=== PATIENT | female | born 1975 | race Caucasian/White ===

== ENCOUNTER 2017-09-23 18:43 | Emergency (ER) | payer MEDICARE, MEDICAID, SELFPAY ==
[2017-09-23 18:45] VITALS: BP 163/123; PULSE 79; RESP 16; TEMP 36.8; O2SAT 96; BMI 36.6
--- NOTE | 2017-09-23 19:08 | NURSING ---
clean catch urine sample obtained by triage nurse and sent down sample
[2017-09-23 19:16] VITALS: O2SAT 97
[2017-09-23 20:30] LABS: Mucous, Urine 0 SEEN /hpf (<or=2+); Red Blood Cells-Urine 0 SEEN /hpf (0-5)
[2017-09-23 20:34] LABS: Color, Urine Straw (Yellow); Glucose, Dipstick Normal (Normal); Ketone-Dipstick Negative (Negative); Leukocyte Esterase-Dipstick 25 /ul (Negative); Nitrite-Dipstick Negative (Negative); Occult Blood-Urine 10 /ul (Negative); Protein-Dipstick Negative (Negative); Urine Bilirubin Dipstick Negative (Negative); Urine Clarity Clear (Clear); Urine Urobilinogen Normal (Normal); Urine pH 6.5 (5.0 - 8.0)
[2017-09-23 20:44] LABS: Squamous Epithelial Cells - UA 0-5 SEEN /hpf (5-10)
[2017-09-23 20:45] LABS: White Blood Cells 0-5 SEEN /hpf (0-5)
[2017-09-23 20:46] LABS: Bacteria RARE /hpf (None Seen)
--- NOTE | 2017-09-23 21:43 | ED.VISSUMM ---
- ER Visit Summary Date of Service: 09/23/17 Chief Complaint: Back pain History of Present Illness: The patient is a 42 F who presents with right lower back pain that became worse today. Patient states this feels similar to prior episodes of urinary tract infections. Patient states the pain is worse over the right lower back. Patient describes the pain as aching. Patient denies any fevers. Patient denies any dysuria or hematuria. Patient denies any radiation of the pain. Patient denies any other bowel or bladder changes. Physical Examination: Vital signs are stable. Patient is afebrile. Patient is in no acute distress. Oral mucosa is pink and moist. Neck is supple. Trachea is midline. There is no JVD or lymphadenopathy. Heart was regular rate and rhythm. Lungs are clear and equal bilaterally. There is good respiratory effort noted. Abdomen is soft. Bowel sounds are normal. There is no tenderness. Muscular skeletal exam reveals some mild tenderness over the right lumbar paraspinal muscles. There is no midline tenderness. There is no bony crepitance or step-off. There is no edema or ecchymosis noted. There is good range of motion of the lumbar spine. Test Results: Urinalysis was obtained was within normal limits. There is no evidence of urinary tract infection Treatment Plan: Patient was given a prescription for Naprosyn. Patient was instructed to follow-up with her primary care physician in 7-10 days. Patient understood and was agreeable with the plan. All questions were answered. Disposition: Discharged home Impression: Acute low back strain This note was generated with [employer] dictation software. It may contain incorrect words, spelling, and punctuation that were not noted in review of the chart prior to signing ED Disposition - Plan for ED Patient: Disposition: Home or Assisted Living Chief Complaint: Shortness of Breath Diagnosis: Acute lumbar myofascial strain Instructions: ED Sprain Strain Lumbar Prescriptions: Naproxen [Naprosyn] 500 mg PO BID PRN PRN #20 tab PRN Reason: Pain Referrals: Jesusita Naylor MD [Primary Care Provider] -
[2017-09-23 22:01] VITALS: BP 169/95; PULSE 81; RESP 16; O2SAT 97
== END 2017-09-23 22:01 | disposition home or self-care (01) ==
PROVIDERS: Emergency Provider Emergency Medicine; Family Provider Internal Medicine; PCP Internal Medicine
DX: S39.012A Strain of muscle, fascia and tendon of lower back, initial encounter (principal); E03.9 Hypothyroidism, unspecified; Z87.440 Personal history of urinary (tract) infections; Z79.899 Other long term (current) drug therapy; X58.XXXA Exposure to other specified factors, initial encounter; Y93.9 Activity, unspecified; Y92.9 Unspecified place or not applicable; Y99.9 Unspecified external cause status
CPT/HCPCS: 81001; 99283

== ENCOUNTER → 2017-11-22 07:26 | Outpatient (CLI) | payer MEDICARE, MEDICAID, SELFPAY ==
--- NOTE | 2017-11-22 07:32 | US_ITS ---
STUDY: ABDOMINAL ULTRASOUND - RIGHT UPPER QUADRANT REASON FOR VISIT: Female, 42 years old. Right upper quadrant pain. Nausea. TECHNIQUE: Ultrasound evaluation of the right upper quadrant was performed with real-time and static rojas-scale imaging. TECHNICAL QUALITY: Limited. Examination limited by bowel gas. COMPARISON: Comparison is made with prior study dated March 20, 2012. FINDINGS: Liver: The liver measures 14.2 cm. There is increased echogenicity consistent with fatty infiltration. The bile ducts are within normal limits. There is hepatic color flow. The direction of portal flow is hepatopetal. There is no demonstrated mass lesion. Gallbladder: Normal distended gallbladder. The gallbladder wall measures 1.6 mm. There is a negative sonographic De La Vega's sign. There is no pericholecystic fluid. There are no gallstones. Common Bile Duct (C.B.D.): The common bile duct measures 4.6 mm. Pancreas: Normal size of the head, body and tail of the pancreas. There is normal echogenicity of the pancreas. There is no demonstrated pancreatic mass or cyst. Right Kidney: Normal size of the right kidney. The right kidney measures 10.7 cm x 4.7 cm x 5.2 cm. Normal renal cortex. The right cortex measures 1.9 cm. There is no demonstrated renal mass or cyst. There is no right hydronephrosis. US/Abdomen Limited IMPRESSION: Fatty infiltration of the liver. Electronically Signed: iMn Oconnor MD at 9:55 EDT Tel [phone], Service support ,
== END ==
PROVIDERS: Family Provider Internal Medicine; PCP Internal Medicine; Visit Provider Internal Medicine Gastroenterology
DX: R11.0 Nausea (principal); R10.9 Unspecified abdominal pain
CPT/HCPCS: 76705

== ENCOUNTER 2019-01-28 16:09 | Emergency (ER) | payer MEDICARE, MEDICAID, SELFPAY ==
[2019-01-28 16:09] VITALS: BP 102/72; PULSE 93; RESP 16; TEMP 36.6; O2SAT 96; BMI 33.9
--- NOTE | 2019-01-28 16:32 | CT_ITS ---
STUDY: CT ABDOMEN AND PELVIS WITH CONTRAST REASON FOR EXAM: Female, 43 years old. Abdominal pain. History of UTI RADIATION DOSAGE (If Supplied By Facility): CTDIvol = ( 16.78 ) mGy, DLP = ( 1292.55 ) mGycm TECHNIQUE: Transaxial images were obtained from the dome of the diaphragm to the symphysis pubis without oral contrast. 100ML IV Isovue 300 was administered. Sagittal and coronal images were reconstructed. Individualized dose optimization techniques were used for this CT. COMPARISON: 12/21/2016 FINDINGS: The visualized lung bases are unremarkable. The visualized portions of the heart are within normal limits. Normal liver. Normal gallbladder and extrahepatic biliary system. Normal spleen. Normal pancreas. Normal bilateral adrenal glands. Normal right kidney. Normal left kidney. Normal visualized stomach. Normal small intestine. Normal colon. The appendix is visualized and appears normal. Normal abdominal aorta. Normal inferior vena cava. Normal retroperitoneum. Normal urinary bladder. Unremarkable uterus Normal abdominal wall. Normal osseous structures. CT/Abdomen/Pelvis W IV Cont ONLY IMPRESSION: Normal enhanced CT of the abdomen and pelvis. Electronically Signed: Carlos Andrew DO at 19:19 EDT Tel , Service support ,
[2019-01-28] MEDS: 0.9% Normal Saline 1,000 ML 1000 ML IV (16:55)
[2019-01-28] MEDS: Ondansetron 4 MG/2 ML Vial IV (16:55)
[2019-01-28] MEDS: Morphine 4 MG/ML Syringe IV (16:55)
[2019-01-28 17:05] LABS: Absolute Lymphocyte Count 2.36 X10^3/uL (0.83-4.51); Absolute Neutrophil Count 6.6 X10^3/uL (2.0-7.7); Basophil# 0.11 X10^3/uL; Basophil% 1.1 % (0-1); Eosinophil# 0.33 X10^3/uL; Eosinophils% 3.3 % (0-5); Hematocrit 39.4 % (37-47); Hemoglobin 13.3 g/dL (12.0-15.0); Lymphocyte # 2.36 X10^3/ul (4.0); Lymphocyte % 23.5 % (19-41); Mean Corp Hgb Conc 33.8 g/dL (32-36); Mean Corpuscular Hgb 29.4 pg (27.0-32.0); Mean Platelet Vol. 9.4 fl (6.2-12.0); Monocyte# 0.66 X10^3/uL; Monocyte% 6.6 % (0-10); NRBC Flagged by Analyzer 0 % (0-5); Neutrophil # 6.55 X10^3/uL (2.7-7.7); Neutrophil % 65.2 % (47-70); Platelet Count 423 K/mm3 (150-450); RBC Distribution Width CV 12.3 % (11.6-14.6); RBC Distribution Width SD 39.1 fl (35.1-43.9); Red Blood Count 4.53 M/mm3 (4.2-5.4)
[2019-01-28 18:07] LABS: AST(SGOT) 11 U/L (15-37); Alanine Aminotransfer ALT/SGPT 16 U/L (13-56); Albumin, Serum 3.5 g/dL (3.2-5.0); Alkaline Phosphatase 81 U/L (45-117); Anion Gap 4 (5-15); BUN 10 mg/dL (7-18); BUN/Creat Ratio 11.3 RATIO (10-20); Calcium,Total 8.6 mg/dL (8.5-10.1); Chloride 106 mmol/L (98-107); Creatinine, Serum 0.88 mg/dL (0.55-1.02); EST Glomerular Filtration Rate 74 mL/min (>60); Est Glom Filt Rate - Afr Amer 90 mL/min (>60); Estimated Creatinine Clearance 74.94 ml/min; Globulin 3.6 g/dL (2.2-4.2); Glucose 90 mg/dL (74-106); Lipase 116 U/L (73-393); Potassium 3.9 mmol/L (3.5-5.1); Protein, Total 7.1 g/dL (6.4-8.2); Sodium Level 137 mmol/L (136-145)
[2019-01-28 18:18] VITALS: BP 105/68; PULSE 69; RESP 16; O2SAT 100
[2019-01-28 18:23] VITALS: BP 105/68; PULSE 69; RESP 16; TEMP 37.1; O2SAT 100
[2019-01-28 18:23] LABS: Bacteria 0 SEEN /hpf (None Seen); Mucous, Urine 0 SEEN /hpf (<or=2+)
[2019-01-28 18:33] LABS: Color, Urine Yellow (Yellow); Glucose, Dipstick Normal (Normal); Ketone-Dipstick Negative (Negative); Leukocyte Esterase-Dipstick 100 /ul (Negative); Nitrite-Dipstick Negative (Negative); Occult Blood-Urine 10 /ul (Negative); Protein-Dipstick Negative (Negative); Urine Bilirubin Dipstick Negative (Negative); Urine Clarity Sl. Cloudy (Clear); Urine Urobilinogen Normal (Normal)
[2019-01-28 18:34] LABS: Internal QC Validated? YES +Cl - CLEAR BKGD; Pregnancy, Urine Negative Negative
[2019-01-28 18:39] LABS: Red Blood Cells-Urine 0 SEEN /hpf (0-5); Squamous Epithelial Cells - UA 0-5 SEEN /hpf (5-10); White Blood Cells 5-10 SEEN /hpf (0-5)
--- NOTE | 2019-01-28 19:40 | ED.VISSUMM ---
- ER Visit Summary Date of Service: 01/28/19 Chief Complaint: Abdominal pain History of Present Illness: The patient is a 43 F with abdominal pain for several days. The pain came on gradually. The pain is diffuse. Associate with nausea and diarrhea. Patient was at an urgent care last week and had blood in her urine. She was treated for UTI, but her symptoms are not better. She denies fevers. Denies any other symptoms. Denies any history of abdominal surgery. Physical Examination: Afebrile and vital signs unremarkable. Patient alert and oriented. No acute distress. Heart regular rate and rhythm. Lungs clear. Abdomen is tender over the lower hemiabdomen. No guarding or rebound. No distention. No masses. Skin appears normal in color. Test Results: CBC, CMP, lipase, hCG, urinalysis all unremarkable. There are 5-10 white blood cells and 100 leukocyte esterase. Nitrites negative. No other pertinent findings. CT abdomen was normal Emergency Department Course and Treatment: Patient was treated with morphine and Zofran while awaiting results. Her symptoms improved and she tolerated PO. Work-up was unremarkable. She is not having blood in her urine. She has 5-10 white cells and positive leukocyte esterase, but otherwise her urine is unremarkable. She is not having any urinary symptoms whatsoever. She had a culture last week which was negative. She has nonspecific abdominal pain. Etiology is unclear, but her exam, vitals, and work-up is reassuring. Patient will be treated as an outpatient with Zofran and Motrin. Follow-up with primary care. Return for any new or worsening issues right away. Treatment Plan: As above Disposition: Discharged Impression: 1. Generalized abdominal pain This note was generated with [employer] dictation software. It may contain incorrect words, spelling, and punctuation that were not noted in review of the chart prior to signing ED Disposition - Plan for ED Patient: Referrals: Jesusita Naylor MD [Primary Care Provider] -
--- NOTE | 2019-01-28 19:43 | ED.DEP ---
ED Disposition - Plan for ED Patient: Instructions: ABDOMINAL PAIN, Unknown Cause, (Female) Prescriptions: Ibuprofen [Motrin] 800 mg PO TID PRN PRN #20 tab PRN Reason: Pain Prescription Printed Ondansetron [Zofran Odt] 4 mg PO Q8H PRN PRN #10 tab PRN Reason: Nausea Prescription Printed Referrals: Jesusita Naylor MD [Primary Care Provider] -
[2019-01-28 19:59] VITALS: BP 113/79; PULSE 70; RESP 16; O2SAT 100
== END 2019-01-28 19:59 | disposition home or self-care (01) ==
LOC: ED 16:44
PROVIDERS: Emergency Provider Emergency Medicine; Family Provider Internal Medicine; PCP Internal Medicine
DX: R10.84 Generalized abdominal pain (principal); Z87.440 Personal history of urinary (tract) infections; K21.9 Gastro-esophageal reflux disease without esophagitis; I10 Essential (primary) hypertension; E03.9 Hypothyroidism, unspecified; E78.00 Pure hypercholesterolemia, unspecified; Z79.899 Other long term (current) drug therapy
CPT/HCPCS: 74177; 80053; 81001; 81025; 83690; 85025; 96361; 96374; 96375; 99283; J7030; Q9967; J2405

== ENCOUNTER 2019-06-09 18:23 | Emergency (ER) | payer MEDICARE, MEDICAID, SELFPAY ==
[2019-06-09 18:24] VITALS: BP 98/67; PULSE 79; RESP 16; TEMP 36.4; O2SAT 95; BMI 34.6
--- NOTE | 2019-06-09 18:35 | EKG12_ITS ---
Test Reason : CHEST TIGHTNESS Blood Pressure : / mmHG Vent. Rate : 066 BPM Atrial Rate : 066 BPM P-R Int : 156 ms QRS Dur : 094 ms QT Int : 416 ms P-R-T Axes : 053 037 029 degrees QTc Int : 436 ms Normal sinus rhythm Normal ECG Confirmed by MARSHA ALVARADO, GEORGE ([id number]), sports editor KAYLEEN METZ ([id number]) on 06/11/2019 1:01:35 PM Referred By: FRANCISCO Confirmed By:GEORGE LARSON MD
--- NOTE | 2019-06-09 19:04 | ED.VIS.GEN ---
History of Present Illness Chief Complaint: Shortness of Breath Informant: Patient, Family Onset: Days - Onset June 06 Context: Sudden Onset Timing: Continuous Quality: Loss of voice and nonproductive cough Location: Upper respiratory Current Severity: Mild Maximum Severity: Moderate Worsened by: Talking Relieved by: Nothing Associated Symptoms: No other symptoms Narrative: Patient is a 43-year-old woman who is a non-smoker and presents with nonproductive cough and loss of voice. Onset of illness June 06. She denies documented fever. She denies myalgias or arthralgias. She denies photophobia, neck pain or neck stiffness. She denies GI or symptoms. She denies rash. Prior similar symptoms: No Recent Illness/Hospitalization: No - Past Medical History (1) Fibrocystic change of breast Status: Acute Past Medical History - Allergies and Home Meds Allergies/Adverse Reactions: Allergies amphetamine aspartate [From Adderall] Allergy (Verified 06/09/19 18:24) Itching amphetamine sulfate [From Adderall] Allergy (Verified 06/09/19 18:24) Itching dextroamphetamine saccharate [From Adderall] Allergy (Verified 06/09/19 18:24) Itching dextroamphetamine sulfate [From Adderall] Allergy (Verified 06/09/19 18:24) Itching sumatriptan [From Imitrex] Allergy (Verified 06/09/19 18:24) Chest tightness sumatriptan succinate [From Imitrex] Allergy (Verified 06/09/19 18:24) Chest tightness venom-honey bee Allergy (Verified 06/09/19 18:24) Anaphylaxis Primary Care Physician: Jesusita Naylor MD [Primary Care Provider] - Prior records reviewed: Yes Lives: With Family Smoking Status: Never smoker Alcohol: None Drugs: None Review of Systems General: Reports: Malaise. Denies: Chills, Fever, Subjective, Sweats, Weight loss Eyes: Denies: Visual changes - bilaterally, Blurred Vision - bilaterally ENT: Denies: Bilateral ear pain, Rhinorrhea, Sore throat Cardiovascular: Reports: Chest pain. Denies: Palpitations, Heart racing Respiratory: Reports: Cough, Sputum. Denies: Dyspnea, Dyspnea on exertion, Orthopnea, Paroxysmal nocturnal dyspnea Gastrointestinal: Denies: Abdominal pain, Nausea, Vomiting, Diarrhea, Melena, Hematochezia Genitourinary: Denies: Dysuria, Hematuria, Frequency Musculoskeletal: Denies: Myalgias, Arthralgias, Neck pain, Back pain, Swelling, Extremity Pain, -, - Skin: Denies: Rash, Wounds Neurological: Denies: Headache, Weakness, Numbness Endocrine: Denies: Polyuria, Polydipsia Hematologic: Denies: Easy bruising, Easy bleeding Physical Exam Vital Signs/Narrative: Vital Signs Temp Pulse Resp BP Pulse Ox 06/09/19 18:24 97.5 F L 79 16 98/67 95 Inital Vital Signs reviewed: Yes General: Well nourished, Well developed, Obese, No Acute Distress Head: Normocephalic, Atraumatic Eyes: Perrl, EOMI. Negative for: Pale conjunctiva, Scleral icterus ENT: Moist mucous membranes, TM's clear, Nasal congestion, - - Gait is midline. There is no stridor.. Negative for: No rhinorrhea, Dry mucous membranes Neck: Supple, Nontender, No lymphadenopathy, No JVD Cardiovascular: Regular rate, Regular rhythm, No murmurs, Normal S1, Normal S2 Respiratory: No distress, CTA bilaterally, Chest nontender Abdomen: Soft, Nontender, Nondistended, Normal bowel sounds Extremities: Nontender, No edema Skin: Normal color, No rash, No Trauma. Negative for: Cyanosis, Diaphoresis, Jaundice Neurological: Alert, Oriented x3, Cranial nerves II-XII grossly intact, Normal Strength, Normal Sensation Psychological: - - Flat affect Diagnostic/Tx/Re-eval - Medical Decision Making With rest Tory symptoms that started Sunday. Patient's illness is consistent with a viral illness. Since she has no fever and vital signs are normal and auscultatory findings are unremarkable imaging was not obtained nor is any blood work necessary. Patient and her mother were informed she may be ill for another 10 to 14 days. ED Disposition - Plan for ED Patient: Disposition: Home or Assisted Living Diagnosis: Laryngitis, acute Instructions: Laryngitis, Self-Care for Sore Throats Referrals: Jesusita Naylor MD [Primary Care Provider] - 10-14 Days if not better
[2019-06-09 19:15] VITALS: RESP 16; O2SAT 96
[2019-06-09 19:19] VITALS: PULSE 70; RESP 16; TEMP 36.4; O2SAT 96
--- NOTE | 2019-06-09 19:20 | ED.RN ---
REVIEWED D/C INSTRUCTIONS, FOLLOW UP CARE, AND S/S THAT WOULD WARRANT A RETURN TO THE ED WITH PT. PT VERBALIZED AN UNDERSTANDING AND DENIES FURTHER QUESTIONS FOR THIS RN. PT SKIN P/W/D, RESP EVEN AND UNLABORED, PT A&O X 3, NO DISTRESS NOTED. PT AMBULATED OUT OF ED, GAIT STEADY.
== END 2019-06-09 19:23 | disposition home or self-care (01) ==
PROVIDERS: Emergency Provider Emergency Medicine; Family Provider Internal Medicine; PCP Internal Medicine
DX: J04.0 Acute laryngitis (principal); E66.9 Obesity, unspecified
CPT/HCPCS: 93005; 94760; 99283; A4216

== ENCOUNTER 2019-10-02 16:55 | Emergency (ER) | payer MEDICARE, MEDICAID, SELFPAY ==
[2019-10-02 16:57] VITALS: BP 110/66; PULSE 81; RESP 18; TEMP 36.6; O2SAT 97; BMI 31.8
--- NOTE | 2019-10-02 17:10 | RAD_ITS ---
STUDY: X-RAY - RIGHT FOOT CLINICAL: Female, 44 years old. laceration to foot from glass/pain TECHNIQUE: 3 view(s) of the foot. COMPARISON: None. FINDINGS: Normal talus, calcaneus, and tarsal bones. Small dorsal enthesophyte of the calcaneus. Normal visualized subtalar, talonavicular, calcaneocuboid, tarsal and tarsometatarsal articulations. Normal metatarsi. Normal metatarsophalangeal joint of the great toe. Normal tibial and fibular sesamoid bones. Normal interphalangeal joint of the great toe. Normal phalanges of the great toe. Normal second through fifth metatarsophalangeal joints. Normal interphalangeal joints and phalanges of the lesser toes. The soft tissue structures are unremarkable. Negative for foreign body. RAD/Foot min 3 Views IMPRESSION: Normal x-ray examination of the foot. Negative for foreign body. Electronically Signed: Teresa Flaherty MD at 17:21 EDT , Service support ,
[2019-10-02] MEDS: Diphth,Pertuss(Acell),Tet Vac 0.5 ML Vial IM (17:14)
--- NOTE | 2019-10-02 17:45 | ED.DCSUM_ITS ---
- ER Visit Summary Date of Service: 10/02/19 Chief Complaint: Laceration History of Present Illness: The patient is a 44 F with a laceration to her right foot. A heavy window fell on her foot. She has no suspicion for foreign bodies. Hurts in the area. Unsure of her tetanus status. Physical Examination: 1 cm laceration just distal to her right lateral malleolus. She is neurovascular intact distally. No active bleeding. Good range of motion. No deformities. No foreign bodies. Test Results: X-rays negative. Emergency Department Course and Treatment: Tetanus updated. Wound was anesthetized and sutured with 2 simple interrupted sutures. Patient was placed in a postop shoe. She declined crutches and a walker. She will follow-up in 10 to 14 days. She was given wound care instructions. Treatment Plan: As above Disposition: Discharge Impression: Laceration right foot 1 cm This note was generated with [employer] dictation software. It may contain incorrect words, spelling, and punctuation that were not noted in review of the chart prior to signing ED Disposition - Plan for ED Patient: Referrals: Jesusita Naylor MD [Primary Care Provider] -
--- NOTE | 2019-10-02 17:46 | ED.DEP ---
ED Disposition - Plan for ED Patient: Instructions: ED Laceration Foot Referrals: Jesusita Naylor MD [Primary Care Provider] -
== END 2019-10-02 18:19 | disposition home or self-care (01) ==
PROVIDERS: Emergency Provider Emergency Medicine; PCP Internal Medicine
DX: S91.311A Laceration without foreign body, right foot, initial encounter (principal); W20.8XXA Other cause of strike by thrown, projected or falling object, initial encounter; Y93.9 Activity, unspecified; Y92.9 Unspecified place or not applicable
CPT/HCPCS: 12001; 73630; 90471; 90715; 99285

== ENCOUNTER 2019-12-24 05:13 | Day surgery (SDC) | payer MEDICARE, MEDICAID, SELFPAY ==
[2019-12-17 12:03] VITALS: BMI 31.8
[2019-12-24] VITALS (7 sets, daily range): BP systolic 101–120; BP diastolic 53–87; PULSE 68–76; RESP 16; TEMP 36.3–36.4; O2SAT 99–100; BMI 33.5
--- NOTE | 2019-12-24 | COLBX_PTH ---
PATIENT: MAXIMUS BRADLEY LOC: EN U#:[id number] AGE/SX: 44/F ROOM: RE12/24/[address]: Dr. Davis Ernst MD : [id number] BED: DIS: 12/24/2019 SPEC #: [id number] RECD: 12/24/19 12:12 STATUS: CASSIE RENany #: [id number] JULIO CÉSAR: 12/24/19 00:[address]: Davis Ernst DEPT: SURGICAL PATHOLOGY RECD BY: Dylon Carrasco ENTERED: 12/24/19 12:13 SP TYPE: COLON BX OTHR DR: Dr. Jesusita Naylor MD Tissues: A - Duodenum, NOS B - Gastric mucous membrane C - Esophagus, NOS D - Esophagus, NOS Procedures: Special Stain Group II Surgery Specimen Level IV Alcian Blue/PAS (control) HEADER OPERATION: [place] [place] PRE[place]OP DIAGNOSIS: Abdomen pain TISSUE SUBMITTED: A - Duodenum biopsy, B - Antrum biopsy for histo and H. pylori, C - Distal esophagus biopsy, D - Mid esophagus biopsy MICROSCOPIC DIAGNOSIS A. Duodenum, biopsy: Minimal nonspecific chronic inflammation. B. Gastric antrum, biopsy: Mild chronic gastritis. See comment. C. Distal esophagus, biopsy: Fragments of benign squamous mucosa with focal changes of reflux. Gastroesophageal junctional mucosa with mild chronic inflammation. No evidence of intestinal metaplasia. See comment. D. Mid esophagus, biopsy: Fragments of benign squamous mucosa. No evidence of inflammation. AM:dylon 12/25/19 COMMENT B. The results of immunohistochemistry for Helicobacter pylori will be reported separately ([id number]). C. Alcian blue/PAS stain with matched control supports the above diagnosis. MICROSCOPIC DESCRIPTION Slides are reviewed. GROSS DESCRIPTION A - Received in fixative is one container labeled with the patient's name and designated duodenum biopsy. The specimen consists of two irregular fragments of light ewing soft tissue that in aggregate measure 0.5 x 0.3 x 0.1 cm. The specimen is totally submitted in one cassette. B - Received in fixative is one container labeled with the patient's name and designated antrum biopsy. The specimen consists of one irregular fragment of light ewing soft tissue that measures 0.4 x 0.3 x 0.1 cm. The specimen is totally submitted in one cassette. C - Received in fixative is one container labeled with the patient's name and designated distal esophagus biopsy. The specimen consists of multiple irregular fragments of light ewing soft tissue that in aggregate measure 0.8 x 0.5 x 0.1 cm. The specimen is totally submitted in one cassette. D - Received in fixative is one container labeled with the patient's name and designated mid esophagus biopsy. The specimen consists of multiple irregular fragments of light ewing soft tissue that in aggregate measure 0.6 x 0.3 x 0.1 cm. The specimen is totally submitted in one cassette. / SJ:rg 12/24/19 TC:3 CPT: 55531 x4
--- NOTE | 2019-12-24 06:00 | PCM.HP.BLA ---
Problem List (1) Abdominal pain Status: Acute Qualifiers: History and Physical Date of Admission: 12/24/19 Intake Visit Reasons: Hernia Chief Complaint: abd pain Risk Compliance Manager Required: No Is patient in pain?: No Allergies amphetamine aspartate [From Adderall] Allergy (Verified 12/17/19 11:37) Itching amphetamine sulfate [From Adderall] Allergy (Verified 12/17/19 11:37) Itching dextroamphetamine saccharate [From Adderall] Allergy (Verified 12/17/19 11:37) Itching dextroamphetamine sulfate [From Adderall] Allergy (Verified 12/17/19 11:37) Itching sumatriptan [From Imitrex] Allergy (Verified 12/17/19 11:37) Chest tightness sumatriptan succinate [From Imitrex] Allergy (Verified 12/17/19 11:37) Chest tightness venom-honey bee Allergy (Verified 12/17/19 11:37) Anaphylaxis Medications Candesartan Cilexetil 16 mg PO DAILY 12/12/15 [History Confirmed 12/17/19] Levothyroxine [Synthroid] 50 mcg PO DAILY 12/12/15 [History Confirmed 12/17/19] Pravastatin [Pravachol] 20 mg PO QHS 12/12/15 [History Confirmed 12/17/19] Cholecalciferol (Vitamin D3) [Vitamin D3] 2,000 unit PO DAILY 01/28/19 [History Confirmed 12/17/19] Esomeprazole Mag Trihydrate [Nexium] 40 mg PO BID 01/28/19 [History Confirmed 12/17/19] albuterol sulfate 90 mcg/actuation aerosol inhaler 2 puff INHALATION g 12/17/19 [History Confirmed 12/17/19] diphenhydramine HCl 25 mg capsule ea PO 12/17/19 [History Confirmed 12/17/19] escitalopram oxalate 20 mg tablet 20 mg PO DAILY tab 12/17/19 [History Confirmed 12/17/19] montelukast 10 mg tablet ea PO 12/17/19 [History Confirmed 12/17/19] tamsulosin 0.4 mg capsule ea PO 12/17/19 [History Confirmed 12/17/19] topiramate 25 mg sprinkle capsule PO 12/17/19 [History Confirmed 12/17/19] Is last menstrual period known: No Post menopausal: No Patient : No PFSH Medical History (Updated 12/17/19 @ 11:[address] Davis Ernst MD) Abdominal pain (Acute) Fibrocystic change of breast (Acute) Anxiety (Acute) Developmental disability (Acute) Depression (Acute) Hypothyroid (Acute) hypercholesterolemia (Acute) HTN (hypertension) (Chronic) Surgical History (Updated 12/17/19 @ 11:27 by Dasha Leung) History of dilation and curettage (Acute) History of esophagogastroduodenoscopy (EGD) (Acute) History of tubal ligation (Acute) Status post fine needle aspiration (Acute) Family History Father Cancer Social History (Updated 12/17/19 @ 12:[address] Davis Ernst MD) Smoking Status: Never smoker HPI HPI HPI: MAXIMUS BRADLEY, is a 44 F who presents to the office today for surgical consultation regarding epigastric pain. The patient is referred by Dr. Naylor written compromise surgical consult and recommendations will return to her. 43-year-old female. She is complaining of feeling a knot in the epigastric area. She states that she has a hernia there. She states that this been ongoing for several months. However on closer review it is evident that she has been evaluated for abdominal pain for period of time. August 31, 2018 at the [facility] she was evaluated for abdominal pain with a CT scan. That was felt to be normal. May 01, 2017 she was evaluated by Dr. Shon Escobar with a gastric emptying study. That was felt to be normal. November 22, 2017 she was evaluated by Dr. Shon Escobar with a right upper quadrant ultrasound that showed fatty change of the liver but otherwise normal. Previously December 31, 2015 at the [facility] she is evaluated his CT scan. This showed a small hiatal hernia otherwise normal. On none of these examinations were a ventral hernia identified. I have carefully inspected her most recent CT and there is no ventral hernia. There is an umbilical incisional hernia related to a previous tubal ligation She states that the pain is constant 24/7. Activity does not seem to aggravate it. She claims that sometimes spicy food aggravates it. She states that she takes her routine medications which include esomeprazole 40 mg twice daily. HPI HPI HPI: MAXIMUS BRADLEY, is a 44 F who presents to the office today for ROS General General: Yes weight change; no appetite, fatigue, colon cancer, breast cancer or weakness HEENT HEENT: No difficulty swallowing, eye injury, eye surgery, swollen glands or hoarseness Endo Endocrine: Yes thyroid disease; no diabetes mellitus, thyroid cancer, Hair loss, heat intolerance or cold intolerance Musc Musculoskeletal: Yes back problems; no arthritis, rheumatoid arthritis, gout or joint pain Cardio Cardiovascular: No murmur, pacemaker, heart disease, atrial fibrillation, high blood pressure, heart attack, heart stent, palpitations, shortness of breat with exertion or chest pain Psych Psychiatric: Yes depression and anxiety; no hearing voices Resp Respiratory: No shortness of breath, No sleep apnea, No cough, No COPD, Yes asthma, No emphysema, No wheezing Gastro Gastrointestinal: Yes abdominal pain, Yes nausea or vomiting, Yes diarrhea, No constipation, Yes blood in stool, No acid reflux, No hemorrhoids, No ulcers, No gallbladder problem, No black,tarry stools Neuro Neurologic: No weakness Exam Const General: cooperative, healthy appearing, comfortable, no acute distress Nutritional Appearance: obese Orientation: alert, awake, oriented x3 HENMT Head: normal to inspection Resp Effort & Inspection: normal respiratory effort Auscultation: clear to auscultation bilaterally Cardio Rate: regular rate Rhythm: regular rhythm Heart Sounds: no murmurs GI Palpation: soft, no hepatosplenomegaly Auscultation: normal bowel sounds Other: With nursing present the patient was examined both standing upright and supine. Well-healed transverse incision noted just inferior to the umbilicus. Some slight fullness at the umbilicus but nontender. The patient points absolutely to the xiphoid area and I am not able to palpate any defect in that area. Organs are difficult to palpate due to body habitus. Normal bowel sounds. No rebound. No guarding. No mass Musc Cervical Spine: normal cervical lordosis Neuro Cognition: normal cognition Extrem General: no calf tenderness Psych Affect: normal affect Assessment & Plan Problems 1. Epigastric pain R10.13 Plan The patient is complaining of a knot-like focal pain. This is just inferior to the xiphoid process. I am not able to palpate a ventral hernia and none of her imaging suggests that. I suspect that on review when she is claiming that she has a hernia that it reflects back to a 2016 CAT scan done at [facility] suggesting a small hiatal hernia. Body habitus body weight 197 pounds with a BMI of 31.8. She is already on Nexium twice daily. She does not recall having had an upper endoscopy and I do not have ready access to any reports. With that in mind I have offered her an esophagogastroduodenoscopy with careful inspection of the stomach biopsies if appropriate careful inspection at the EG junction. She is not describing classic symptoms of GERD. She does claim that spicy foods can aggravate her symptoms but she is reasonably nonspecific. She states that the pain is constant /. She has had an opportunity to ask and have questions answered. Due to the chronicity of her problems it is not clear to me that I will be able to solve or identify her concerns. I think I been able to establish however that she does not have a ventral hernia at the xiphoid area as perhaps she was thinking. I appreciate the opportunity of assisting with her surgical care Cc: Dr. Cyndy Ernst M.D., F.A.C.S. Medications New: escitalopram oxalate 20 mg PO DAILY albuterol sulfate 90 mcg/actuation 2 puffs inhalation diphenhydramine HCl ea PO tamsulosin ea PO topiramate PO Discontinued: hydrochlorothiazide Discontinued Reason: Pt no longer taking 25 mg PO DAILY bupropion HCl Discontinued Reason: Pt no longer taking 150 mg PO DAILY Coding Level of Care Code 09411 Diagnoses Epigastric pain R10.13 ??Abdominal location: epigastric 12/17/19 1203 <Electronically signed by Davis Ernst MD> Date Davis Ernst MD I have re-examined the patient. There are no clinical changes since date of exam. Procedure Criteria Procedure Type: Elective COVID Risk Discussion: The surgeon/proceduralist and patient have discussed in detail the risk of exposure to and/or potential harm posed by the COVID-19 virus with having a surgery/procedure at this time versus the risk of delaying the surgery/procedure. It is not possible to know either the risk of delaying the surgery or procedure or chance of getting an infection with perfect accuracy, but a joint decision was made between the patient and the surgeon/proceduralist to proceed at this time with the scheduled surgery/procedure as indicated on the consent form.
[2019-12-24] MEDS: Lactated Ringers 1,000 ML 75 ML IV (06:11)
--- NOTE | 2019-12-24 06:30 | IMM_PTH ---
PATIENT: MAXIMUS BRADLEY LOC: EN U#:[id number] AGE/SX: 44/F ROOM: RE12/24/[address]: Dr. Davis Ernst MD : 1975 BED: DIS: 12/24/2019 SPEC #: [id number] RECD: 12/24/19 12:41 STATUS: CASSIE REQ #: [id number] JULIO CÉSAR: 12/24/19 06:[address]: Davis Ernst DEPT: IMMUNOHISTOCHEMISTRY RECD BY: Azucena Navas ENTERED: 12/24/19 12:41 SP TYPE: IMMUNO OTHR DR: Dr. Jesusita Naylor MD Tissues: B - Stomach, NOS Procedures: H Pylori (initial) PHYSICIAN & INSTITUTION [place] [id number] SPECIMEN INFORMATION: Tissue Source: B - Antrum biopsy Clinical Info: Abdomen pain Specimen Number: [id number] CPT code: 06470 METHODOLOGY: Deparaffinized sections of prefer/formalin-fixed tissue or PAP/DQ stained slides are incubated with monoclonal/polyclonal antibodies/oligonucleotide probes. Localization is made via biotin free immunoperoxidase method. Appropriate controls are performed and reacted as expected. Results on target cell population are indicated in the following table: RESULTS: ANTIBODY / CLONE RESULT Block B H Pylori (polyclonal) negative These tests were developed and their performance characteristics determined by [facility]. They may not have been cleared or approved by the U.S. Food and Drug Administration. The FDA has determined that such clearance or approval is not necessary. INTERPRETATION: B. Antrum, biopsy: Negative for Helicobacter pylori organisms. AM:dylon 12/26/19
--- NOTE | 2019-12-24 07:58 | OP.EGD_ITS ---
Patient Name: Kancahn Montejo Procedure Date: 12/24/2019 5:43 AM Date of : 1975 Age: 44 Procedure: Upper GI endoscopy Indications: Epigastric abdominal pain Providers: Davis Ernst MD Referring MD: Jesusita Naylor Medicines: See the Anesthesia note for documentation of the administered medications Complications: No immediate complications. Procedure: Pre-Anesthesia Assessment: - Prior to the procedure, a History and Physical was performed, and patient medications and allergies were reviewed. The patient's tolerance of previous anesthesia was also reviewed. The risks and benefits of the procedure and the sedation options and risks were discussed with the patient. All questions were answered, and informed consent was obtained. Prior Anticoagulants: The patient has taken no previous anticoagulant or antiplatelet agents. ASA Grade Assessment: II - A patient with mild systemic disease. After reviewing the risks and benefits, the patient was deemed in satisfactory condition to undergo the procedure. After obtaining informed consent, the endoscope was passed under direct vision. Throughout the procedure, the patient's blood pressure, pulse, and oxygen saturations were monitored continuously. The Endoscope was introduced through the mouth, and advanced to the second part of duodenum. The upper GI endoscopy was accomplished without difficulty. The patient tolerated the procedure well. Scope In: 6:30:36 AM Scope Out: 6:37:07 AM Total Procedure Duration Time 0 hours 6 minutes 31 seconds Findings: Esophagitis with no bleeding was found 35 cm from the incisors. Biopsies were taken with a cold forceps for histology. The mid esophagus was normal. Biopsies were taken with a cold forceps for histology. A small hiatal hernia was present. Diffuse mildly erythematous mucosa without bleeding was found in the gastric antrum. Biopsies were taken with a cold forceps for histology. A medium amount of food (residue) was found in the gastric body. The examined duodenum was normal. Biopsies were taken with a cold forceps for histology. Impression: - Reflux esophagitis. Biopsied. - Normal mid esophagus. Biopsied. - Small hiatal hernia. - Erythematous mucosa in the antrum. Biopsied. - A medium amount of food (residue) in the stomach. - Normal examined duodenum. Biopsied. Recommendation: - Discharge patient to home. - Resume previous diet. - Continue present medications. - Return to my office in 1 week. - Recommend Nuclear medicine gastric emptying study at appointment to be scheduled. Procedure Code(s): --- Professional --- 41842, Esophagogastroduodenoscopy, flexible, transoral; with biopsy, single or multiple Diagnosis Code(s): --- Professional --- K21.0, Gastro-esophageal reflux disease with esophagitis K44.9, Diaphragmatic hernia without obstruction or gangrene K31.89, Other diseases of stomach and duodenum R10.13, Epigastric pain CPT copyright 2017 [employer]. All rights reserved. The codes documented in this report are preliminary and upon manager managed backup services review may be revised to meet current compliance requirements. Davis Ernst MD 12/24/2019 6:47:17 AM This report has been signed electronically. Number of Addenda: 0 Note Initiated On: 12/24/2019 5:43 AM
--- NOTE | 2019-12-24 07:58 | OP.CCLET_ITS ---
12/24/2019 Jesusita Naylor [address] [id number] Re : Upper GI endoscopy procedure for Kanchan Montejo Dear Dr. Naylor This procedure was performed on Tuesday, December 24, 2019. My impressions and recommendations are as follows: Impressions : - Reflux esophagitis. Biopsied. - Normal mid esophagus. Biopsied. - Small hiatal hernia. - Erythematous mucosa in the antrum. Biopsied. - A medium amount of food (residue) in the stomach. - Normal examined duodenum. Biopsied. Recommendations : - Discharge patient to home. - Resume previous diet. - Continue present medications. - Return to my office in 1 week. - Recommend Nuclear medicine gastric emptying study at appointment to be scheduled. My findings are described in the full procedure note, which is enclosed. If I can be of further assistance, please feel free to contact me at Doctor phone number(s): Work: . Sincerely, Davis Ernst MD 12/24/2019 6:47:17 AM This report has been signed electronically.
--- NOTE | 2019-12-24 08:16 | SUR.PHASEII ---
PT SCHEDULED FOR GASTRIC EMPTYING STUDY 12/25/19 AT 1030 AM. EXPLAINED TO PT THAT SHE IS NOT TO EAT OR DRINK ANYTHING 4HRS PRIOR TO PROCEDURE. REINFORCED THAT PT CANNOT EAT OR DRINK ANYTHING AFTER 630AM.
== END 2019-12-24 08:18 | disposition home or self-care (01) ==
LOC: EN 05:15 → AC 05:15
PROVIDERS: Anesthesiology; PCP Internal Medicine; Referring Provider Internal Medicine; Visit Provider Surgery
PROC: 0DJ08ZZ Inspection of Upper Intestinal Tract, Via Natural or Artificial Opening Endoscopic (ICD-10-PCS; CPT 43235; principal; 2019-12-24 06:25)
DX: K29.50 Unspecified chronic gastritis without bleeding (principal); K29.80 Duodenitis without bleeding; K21.0 Gastro-esophageal reflux disease with esophagitis; K44.9 Diaphragmatic hernia without obstruction or gangrene; F41.9 Anxiety disorder, unspecified; F32.9 Major depressive disorder, single episode, unspecified; E03.9 Hypothyroidism, unspecified; E78.00 Pure hypercholesterolemia, unspecified; I10 Essential (primary) hypertension; D64.9 Anemia, unspecified; F17.200 Nicotine dependence, unspecified, uncomplicated; E66.9 Obesity, unspecified; Z68.31 Body mass index [BMI] 31.0-31.9, adult; Z11.59 Encounter for screening for other viral diseases; Z79.899 Other long term (current) drug therapy
CPT/HCPCS: 43239; 87635; 88305; 88313; 88342; G2023; J7120; J2405; U0003

== ENCOUNTER → 2019-12-25 09:53 | Outpatient (CLI) | payer MEDICARE, MEDICAID, SELFPAY ==
[2019-12-24 05:42] VITALS: BMI 33.5
--- NOTE | 2019-12-25 09:55 | NM_ITS ---
CLINICAL: 44-year-old female with reported history of abdominal pain. SEMI-SOLID PHASE 99m Tc SULFUR COLLOID GASTRIC EMPTYING STUDY COMPARISON: Previous semisolid phase gastric emptying study report 05/01/2017 FINDINGS: The patient was administered 1.2 mCi of 99m Tc sulfur colloid mixed with oatmeal and consumed per os. Image acquisitions in the anterior-posterior projections for a total of 60 minutes. There is prompt visualization of the stomach. There is no gastroesophageal reflux identified. The T1/2 linear fit was calculated to be 32.85 minutes, (Normal: 12-56 minutes) compared to 33.39 minutes defined on the previous examination. NM/Gastric Emptying Study IMPRESSION: 1. NORMAL 99m Tc sulfur colloid semi-solid phase (oatmeal) gastric emptying imaging examination. A. There is normal and preserved semi-solid phase gastric emptying compared to normal controls with maintained first order kinetics throughout all components of the examination. (Elijah et al, J Nucl Med Tech 38: 186, 2010). B. Overall compared to the previous semisolid phase gastric emptying study report dated 05/01/2017, there is no significant interval change. Electronically Signed: Lincoln Barnard DO at 23:23 EDT Tel , Service support ,
== END ==
PROVIDERS: PCP Internal Medicine; Referring Provider Surgery; Visit Provider Surgery
DX: R10.9 Unspecified abdominal pain (principal)
CPT/HCPCS: 78264; A9541

== ENCOUNTER 2020-06-21 14:24 | Emergency (ER) | payer MEDICARE, MEDICAID, SELFPAY ==
[2020-02-10 13:34] VITALS: BMI 33.3
[2020-06-21 14:25] VITALS: BP 121/72; PULSE 75; RESP 14; TEMP 36.6; O2SAT 98; BMI 39.9
--- NOTE | 2020-06-21 14:43 | ED.VIS.GEN ---
History of Present Illness Chief Complaint: Headache Narrative: 45-year-old female presenting for 3 days of headache. She states she has a history of migraine headaches. She does not typically have headaches this bad. She states she has had nausea and vomiting with it. She has photophobia without phonophobia. Is not experiencing dizziness or lightheadedness. She denies change in vision. She is also concerned that she might had Covid?19 given that she has been vomiting and feels ill. She is not had any change of taste or smell, myalgias, cough or cold symptoms. Past Medical History - Allergies and Home Meds Allergies/Adverse Reactions: Allergies amphetamine aspartate [From Adderall] Allergy (Verified 06/21/20 14:35) Itching amphetamine sulfate [From Adderall] Allergy (Verified 06/21/20 14:35) Itching dextroamphetamine saccharate [From Adderall] Allergy (Verified 06/21/20 14:35) Itching dextroamphetamine sulfate [From Adderall] Allergy (Verified 06/21/20 14:35) Itching sumatriptan [From Imitrex] Allergy (Verified 06/21/20 14:35) Chest tightness sumatriptan succinate [From Imitrex] Allergy (Verified 06/21/20 14:35) Chest tightness venom-honey bee Allergy (Verified 06/21/20 14:35) Anaphylaxis Primary Care Physician: Jesusita Naylor MD [Primary Care Provider] - Prior records reviewed: Yes Past Medical History: - - Migraine headaches, hypothyroidism, hyperlipidemia, hypertension Surgical History: noncontributory Lives: Alone Smoking Status: Never smoker Alcohol: None Drugs: None Review of Systems General: Denies: Chills, Fever, Sweats Eyes: Reports: - - Photophobia. Denies: Visual changes - bilaterally, Diplopia ENT: Denies: Rhinorrhea, Sore throat Cardiovascular: Denies: Chest pain, Palpitations Respiratory: Denies: Dyspnea, Cough, Dyspnea on exertion Gastrointestinal: Reports: Nausea, Vomiting. Denies: Abdominal pain Musculoskeletal: Denies: Back pain, Extremity Pain Skin: Denies: Rash, Wounds Neurological: Reports: Headache. Denies: Parasthesia, Numbness Psych: Denies: Depression, Anxiety Physical Exam Vital Signs/Narrative: Vital Signs Temp Pulse Resp BP Pulse Ox 06/21/20 14:25 98 F 75 14 121/72 H 98 General: Well nourished, No Acute Distress Head: Normocephalic, Atraumatic Eyes: Perrl, EOMI ENT: Moist mucous membranes, No rhinorrhea Cardiovascular: Regular rate, Regular rhythm Respiratory: No distress, CTA bilaterally Extremities: Nontender, No edema Skin: Normal color, No rash. Negative for: Cyanosis, Diaphoresis Neurological: Alert, Oriented x3, Cranial nerves II-XII grossly intact, - - No focal neurologic deficits or lateralizing signs or symptoms. Psychological: Normal affect, Normal Mood Diagnostic/Tx/Re-eval Clinical Impression(s) from Imaging Studies Brain CT 06/21/20 14:44 IMPRESSION: Mucosal thickening of the ethmoid sinuses bilaterally. Electronically Signed: Min Anastasia, at 15:23 EST , Service support , - Medical Decision Making 45-year-old female presenting with headache. She has a history of migraine headache but states she does not usually have nausea and vomiting. This has been going on for 3 days. She has no symptoms of cough or cold. She has no body aches. She has no loss of taste or smell. She requests to be tested for Covid?19 because she feels nauseous. I believe this is associated with her headache and not Covid?19, however the patient was insistent that I test her. I did tell her this was a send out and she would have to quarantine for 2 to 5 days till she gets her results. She states he has been tested multiple times and they have all been negative. Feel the patient is safe for discharge home as she has a negative head CT and feels better after treatment. Impression: 1. Headache ED Disposition - Plan for ED Patient: Disposition: Home or Assisted Living Instructions: ED Headache Unspecified, Coronavirus Disease 2019 (COVID-19): Overview, Coronavirus Disease 2019 (COVID-19): Caring for Yourself or Others Referrals: Jesusita Naylor MD [Primary Care Provider] -
--- NOTE | 2020-06-21 14:44 | CT_ITS ---
STUDY: CT BRAIN WITHOUT CONTRAST REASON FOR EXAM: Female, 45 years old. Headache x 3 days, hx migraines, hypertension. RADIATION DOSAGE (If Supplied By Facility): CTDIvol = ( 60.81 ) mGy, DLP = ( 953.05 ) mGycm TECHNIQUE: Transaxial CT imaging of the brain was performed without administration of intravenous contrast material. Individualized dose optimization techniques were used for this CT. COMPARISON: No relevant priors. FINDINGS: Normal soft tissue structures. Normal calvarium. Normal size ventricles and extra-axial spaces for the patient''s age. Normal white matter tracts of the cerebral hemispheres. Normal basal ganglia and thalami. Normal brainstem. Normal cerebellum. There is no intracranial hemorrhage. There are no findings of an acute ischemic infarction. Mucosal thickening of the ethmoid sinuses bilaterally. CT/Brain/Head without Contrast IMPRESSION: Mucosal thickening of the ethmoid sinuses bilaterally. Electronically Signed: Min Oconnor, at 15:23 EST , Service support ,
[2020-06-21] MEDS: Metoclopramide 10 MG/2 ML Vial IV (14:53)
[2020-06-21] MEDS: DiphenhydrAMINE 50 MG/ML Syringe 25 MG IV (14:53)
[2020-06-21] MEDS: Ketorolac 15 MG/ML Vial IV (16:13)
[2020-06-21 16:33] VITALS: BP 120/78; PULSE 80; RESP 14; O2SAT 99
== END 2020-06-21 16:34 | disposition home or self-care (01) ==
PROVIDERS: Emergency Provider Student in an Organized Health Care Education/Training Program; PCP Internal Medicine
DX: R51.9 Headache, unspecified (principal); I10 Essential (primary) hypertension; E78.5 Hyperlipidemia, unspecified; E03.9 Hypothyroidism, unspecified; Z79.899 Other long term (current) drug therapy
CPT/HCPCS: 70450; 87635; 96374; 96375; 99283; A4216; U0003

== ENCOUNTER 2020-09-01 15:21 | Emergency (ER) | payer MEDICARE, MEDICAID, SELFPAY ==
[2020-09-01 15:21] VITALS: BP 143/73; PULSE 91; RESP 18; TEMP 36; O2SAT 95; BMI 35.6
[2020-09-01] MEDS: 0.9% Normal Saline 1,000 ML 250 ML IV (16:44)
[2020-09-01] MEDS: Ondansetron 4 MG/2 ML Vial IV (16:45)
[2020-09-01] MEDS: Ketorolac 15 MG/ML Vial IV (16:45)
--- NOTE | 2020-09-01 16:51 | CT_ITS ---
STUDY: CT ABDOMEN AND PELVIS WITHOUT CONTRAST REASON FOR EXAM: Female, 45 years old. LUQ pain RADIATION DOSAGE (If Supplied By Facility): CTDIvol = ( 19.17 ) mGy, DLP = ( 1025.11 ) mGycm TECHNIQUE: Transaxial images were obtained from the dome of the diaphragm to the symphysis pubis without oral contrast, and without intravenous contrast. Sagittal and coronal images were reconstructed. Individualized dose optimization techniques were used for this CT. COMPARISON: 01/28/2019 FINDINGS: The visualized lung bases are unremarkable. The visualized portions of the heart are within normal limits. There is decreased attenuation of the liver consistent with steatosis. The gallbladder is contracted. Normal spleen. Normal pancreas. Normal bilateral adrenal glands. Normal right kidney. Normal left kidney. There is a small hiatal hernia. Normal small intestine. Normal colon. The appendix is visualized and appears normal. Normal abdominal aorta. Normal inferior vena cava. Normal retroperitoneum. Normal urinary bladder. Status post bilateral tubal ligation. Normal abdominal wall. Normal osseous structures. CT/Abdomen/Pelvis without Cont IMPRESSION: No acute abnormality. Fatty infiltration of the liver. Electronically Signed: Lincoln Oneal MD at 17:33 EST Tel , Service support ,
[2020-09-01 16:56] LABS: Color, Urine Yellow (Yellow); Glucose, Dipstick Normal (Normal); Ketone-Dipstick Negative (Negative); Leukocyte Esterase-Dipstick 500 /ul (Negative); Nitrite-Dipstick Negative (Negative); Occult Blood-Urine 10 /ul (Negative); Protein-Dipstick Negative (Negative); Urine Bilirubin Dipstick Negative (Negative); Urine Clarity Sl. Cloudy (Clear); Urine Urobilinogen Normal (Normal)
[2020-09-01 16:57] LABS: Absolute Lymphocyte Count 3.08 X10^3/uL (0.83-4.51); Absolute Neutrophil Count 8.3 X10^3/uL (2.0-7.7); Basophil# 0.13 X10^3/uL; Eosinophil# 0.47 X10^3/uL; Eosinophils% 3.6 % (0-5); Hematocrit 39.3 % (37-47); Hemoglobin 13.1 g/dL (12.0-15.0); Lymphocyte # 3.08 X10^3/ul (4.0); Lymphocyte % 23.8 % (19-41); Mean Corp Hgb Conc 33.3 g/dL (32-36); Mean Corpuscular Hgb 28.4 pg (27.0-32.0); Mean Corpuscular Volume 85.2 fL (81-99); Mean Platelet Vol. 9.5 fl (6.2-12.0); Monocyte# 0.98 X10^3/uL; Monocyte% 7.6 % (0-10); Mucous, Urine 0 SEEN /hpf (<or=2+); NRBC Flagged by Analyzer 0 % (0-5); Neutrophil # 8.25 X10^3/uL (2.7-7.7); Neutrophil % 63.8 % (47-70); Platelet Count 450 K/mm3 (150-450); RBC Distribution Width CV 12.6 % (11.6-14.6); RBC Distribution Width SD 38.7 fl (35.1-43.9); Red Blood Count 4.61 M/mm3 (4.2-5.4); White Blood Count 12.9 K/mm3 (4.4-11.0)
[2020-09-01 17:10] LABS: Anion Gap 4 (5-15); BUN 10 mg/dL (7-18); BUN/Creat Ratio 12.9 RATIO (10-20); Chloride 105 mmol/L (98-107); Creatinine, Serum 0.78 mg/dL (0.55-1.02); EST Glomerular Filtration Rate 86 mL/min (>60); Est Glom Filt Rate - Afr Amer 104 mL/min (>60); Estimated Creatinine Clearance 79.48 ml/min; Glucose 85 mg/dL (74-106); Potassium 3.8 mmol/L (3.5-5.1); Sodium Level 139 mmol/L (136-145)
[2020-09-01 17:30] LABS: Squamous Epithelial Cells - UA 0-5 SEEN /hpf (5-10)
[2020-09-01 17:31] LABS: White Blood Cells 5-10 SEEN /hpf (0-5)
[2020-09-01 17:32] LABS: Bacteria 1+ /hpf (None Seen)
[2020-09-01 17:33] LABS: Internal QC Validated? YES +Cl - CLEAR BKGD; Pregnancy, Serum, hCG Quali. NEGATIVE Negative; Red Blood Cells-Urine 0-5 SEEN /hpf (0-5)
--- NOTE | 2020-09-01 17:52 | ED.VISSUMM ---
- ER Visit Summary Date of Service: 09/01/20 Chief Complaint: Abdominal pain History of Present Illness: The patient is a [address] Ennis. She reports she has left upper quad abdominal pain that began 3 days ago. She denies any flank pain. She describes it as a continuous sharp pain is 910 at worst and 5-10 currently. Nothing makes this better or worse. She denies any nausea, vomiting, or diarrhea. Her last bowel was yesterday. No melena or hematochezia. No dysuria or frequency. No vaginal bleeding or discharge. Physical Examination: Vitals: Stable. Afebrile. General: Well-nourished and well-developed. Head: Normocephalic atraumatic. Neck: Supple, no lymphadenopathy. No JVD. Nontender. Cardiovascular: Regular rate and rhythm. No murmurs. Respiratory: No respiratory distress. Clear to auscultation bilaterally. Abdominal: Soft, moderate tenderness palpation left upper quadrant, nondistended, normal bowel sounds. No guarding, rebound, or peritoneal signs. Back: Nontender. No CVA tenderness. Extremities: Nontender, no edema. Skin: Normal color, no rash. Neurologic: Alert and oriented ?3. Cranial nerves II through XII are intact. Normal strength and sensation. Psych: Normal affect. Test Results: CBC shows a white count of 12.9. Chem-7 is normal. test is negative. UA shows leukocytes, 5-10 white blood cells, and 1+ bacteria. Clinical Impression(s) from Imaging Studies Abdomen/Pelvis CT 09/01/20 16:51 IMPRESSION: No acute abnormality. Fatty infiltration of the liver. Electronically Signed: Lincoln Oneal MD at 17:33 EST Tel , Service support , Emergency Department Course and Treatment: Patient was treated with Toradol and Zofran IV. She is resting comfortably. Treatment Plan: Patient will be discharged with Zofran and Bactrim. Instructed to follow-up with her primary care physician in 1 to 2 days if not improving. Return to the emergency department for any worsening symptoms. Disposition: To home in improved and stable condition. Impression: 1. Abdominal pain, uncertain cause. 2. UTI. This note was generated with [employer] dictation software. It may contain incorrect words, spelling, and punctuation that were not noted in review of the chart prior to signing ED Disposition - Plan for ED Patient: Instructions: ED Abdominal Pain Unkn Cause Fem, ED Bladder Infection, Female (Adult) Prescriptions: Smz/Tmp Ds [Bactrim Ds] 1 tablet PO BID #6 tablet Ondansetron [Zofran Odt] 4 mg PO Q8H PRN PRN #10 tablet PRN Reason: Nausea Referrals: Jesusita Naylor MD [Primary Care Provider] - 1-2 Days if not improving
== END 2020-09-01 18:54 | disposition home or self-care (01) ==
LOC: ED 16:30
PROVIDERS: Emergency Provider Emergency Medicine; PCP Internal Medicine
DX: N39.0 Urinary tract infection, site not specified (principal); R10.12 Left upper quadrant pain
CPT/HCPCS: 74176; 80048; 81001; 84703; 85025; 96361; 96374; 96375; 99282; J7030; A4216; J2405

== ENCOUNTER 2020-12-06 13:49 | Emergency (ER) | payer MEDICARE, MEDICAID, SELFPAY ==
[2020-11-29 17:39] VITALS: BMI 35.6
[2020-12-06] VITALS (7 sets, daily range): BP systolic 111–121; BP diastolic 73–76; PULSE 76–94; RESP 12–18; TEMP 36.9; O2SAT 95–100; BMI 31.7
--- NOTE | 2020-12-06 14:10 | EKG12_ITS ---
Test Reason : CP Blood Pressure : / mmHG Vent. Rate : 081 BPM Atrial Rate : 081 BPM P-R Int : 170 ms QRS Dur : 094 ms QT Int : 394 ms P-R-T Axes : 054 067 048 degrees QTc Int : 457 ms Normal sinus rhythm Normal ECG Confirmed by MARSHA ALVARADO, GEORGE ([id number]), supervising editor news reel KAYLEEN METZ ([id number]) on 12/08/2020 12:54:23 PM Referred By: CL Confirmed By:GEORGE LARSON MD
--- NOTE | 2020-12-06 14:10 | RAD_ITS ---
STUDY: X-RAY CHEST REASON FOR EXAM: Female, 45 years old. Chest pain TECHNIQUE: Single AP portable view of the chest. COMPARISON: 04/25/2017 FINDINGS: The lungs are clear and expanded. There is no demonstrated pleural abnormality. Normal size heart. Normal mediastinum and karyna. Normal visualized pulmonary arteries. Normal visualized aortic arch and descending thoracic aorta. Normal visualized thoracic spine. Normal visualized ribs, clavicles, and shoulders. There is no demonstrated abnormality of the visualized soft tissue structures of the upper abdomen. RAD/Chest 1 View (Portable) IMPRESSION: Normal x-ray examination of the chest. Electronically Signed: Filomena Stallworth MD at 15:58 EDT Tel , Service support ,
--- NOTE | 2020-12-06 14:21 | ED.VIS.CHEST ---
HPI History of Present Illness Chief Complaint: Chest Pain Narrative Narrative: 45-year-old female presenting with chest pain which she states is sharp in nature. Its been in the left side of her chest for 3 days constantly. She denies diaphoresis, shortness of breath, nausea, vomiting. She states that she does not have any cardiac disease. She does state that she has anxiety and was recently started on something for anxiety. She has not had a fever, chills, myalgias, loss of taste or smell. She denies history of DVT/PE. Prior Similar Symptoms: No CVD Risk Factors: Positive for Hypercholesterolemia PE Risk Factors: Negative for Recent Travel/Surgery, Recent Immobilization, Prior DVT or PE, Cancer and OCP + Smoking + >/=35 PFSH PFSH Medical History Abdominal pain Anxiety Depression Developmental disability Fibrocystic change of breast HTN (hypertension) hypercholesterolemia Hypothyroid Insect bite Home Medications candesartan 16 mg PO DAILY 12/12/15 [History Last Taken 12/24/19 05:00] levothyroxine 50 mcg PO DAILY 12/12/15 [History Last Taken 12/24/19 05:00] pravastatin 20 mg PO QHS 12/12/15 [History Last Taken Unknown] cholecalciferol (vitamin D3) 2 tab PO DAILY 01/28/19 [History Last Taken Unknown] albuterol sulfate 90 mcg/actuation aerosol inhaler 2 puff INHALATION PRN PRN g 12/17/19 [History Last Taken 12/24/19 05:00] escitalopram oxalate 20 mg tablet 20 mg PO DAILY tab 12/17/19 [History Last Taken Unknown] montelukast 10 mg tablet 10 mg PO QHS 12/17/19 [History Last Taken Unknown] tamsulosin 0.4 mg capsule 0.4 mg PO DAILY 12/17/19 [History Last Taken Unknown] bupropion HCl 300 mg PO DAILY 12/23/19 [History Last Taken Unknown] topiramate 25 mg PO QHS 12/23/19 [History Last Taken Unknown] omeprazole 40 mg capsule,delayed release 40 mg PO DAILY cap 02/10/20 [History Last Taken Unknown] ondansetron 4 mg PO Q8H PRN PRN #10 tab 09/01/20 [Rx Last Taken Unknown] Allergy/AdvReac Type Severity Reaction Status Date / Time amphetamine aspartate Allergy Itching Verified 12/06/20 13:51 [From Adderall] amphetamine sulfate Allergy Itching Verified 12/06/20 13:51 [From Adderall] dextroamphetamine saccharate Allergy Itching Verified 12/06/20 13:51 [From Adderall] dextroamphetamine sulfate Allergy Itching Verified 12/06/20 13:51 [From Adderall] sumatriptan [From Imitrex] Allergy Chest Verified 12/06/20 13:51 tightness sumatriptan succinate Allergy Chest Verified 12/06/20 13:51 [From Imitrex] tightness venom-honey bee Allergy Anaphylaxis Verified 12/06/20 13:51 Family History Father Cancer Surgical History History of dilation and curettage History of esophagogastroduodenoscopy (EGD) History of tubal ligation Status post fine needle aspiration Social History Smoking Status: Never smoker ROS ROS ED Constitutional Constitutional ED: Denies chills, fever(s) or sweats Eyes Eyes: Denies blurry vision or change in vision ENT ENT ED: Denies ear pain, rhinorrhea or sore throat Cardiovascular Cardiovascular: Reports chest pain; Denies palpitations or racing heartbeat Respiratory/Chest Respiratory/Chest: Denies cough, dyspnea or sputum Gastrointestinal Gastrointestinal: Denies abdominal pain, constipation, diarrhea or vomiting Genitourinary Genitourinary ED: Denies dysuria, hematuria or urinary frequency Musculoskeletal Musculoskeletal: Denies arthralgias, myalgias or neck pain Integumentary Denies abscess, Abrasions or rash Neurologic Neurologic: Denies headache(s), paresthesias or weakness Psychiatric Psychiatric: Denies anxiety, depression, suicidal ideation or suicidal thoughts Endocrine Endocrinology: Denies polydipsia or polyuria EXAM Physical Exam Const Vital Signs: 12/06/20 13:50 12/06/20 13:58 12/06/20 14:13 Temperature 98.5 F Temperature Source Temporal Pulse Rate 94 87 Respiratory Rate 18 16 Respiratory Effort Normal Non-Labored Blood Pressure 115/73 Blood Pressure Mean 87 Pulse Ox 98 95 99 Oxygen Delivery Method Room Air Room Air Room Air 12/06/20 14:24 12/06/20 15:26 12/06/20 16:00 Temperature Temperature Source Pulse Rate 76 80 Respiratory Rate 15 12 Respiratory Effort Blood Pressure 111/76 121/73 H Blood Pressure Mean 87 89 Pulse Ox 99 100 100 Oxygen Delivery Method Room Air Room Air Room Air Positive obese General Appearance ED: NAD Nutritional Appearance: obese HEENT normocephalic and atraumatic Eyes PERRL and EOMs intact bilaterally Chest Wall inspection of chest normal and palpation of chest normal Resp normal respiratory effort Effort and Inspection: respiratory distress Cardio regular rate and regular rhythm Extremity normal to inspection General Extremety ED: Negative for edema or tenderness General Extremity: Negative for edema Neuro oriented x3 Sensorium / Orientation: awake and alert Psych mental status grossly normal Mood & Affect: anxious; Negative for depressed Skin no rashes or lesions noted and no wounds Heart Score History: Slightly/Non-Suspicious ECG: Normal Age: </= 45 years Risk Factors: 1 or 2 Risk Factors Score: 1 MDM MDM MDM Narrative Medical decision making narrative: Patient presenting with chest pain. Is been constant for 3 days. EKG performed on arrival shows a sinus rhythm at 81 bpm without signs of ischemic change. Heart score is 1. She is PERC negative. Vital signs are stable and she is afebrile. Given that she has had 3 days of constant pain I believe that she only needs 1 troponin and EKG. lab work is all within normal limits. Troponin is negative. Chest x-ray is interpreted by myself shows no acute cardiopulmonary process. Radiologist does agree. Given the patient has 3 days of pain I think she is safe to be discharged home with a negative work-up thus far. Patient counseled to follow-up with her primary care provider to ensure resolution. Impression: 1. Chest pain Lab Data Labs: Laboratory Results - last 24 hr 12/06/20 12/06/20 14:14 14:14 WBC 7.4 RBC 4.84 Hgb 13.6 Hct 40.7 MCV 84.1 MCH 28.1 MCHC 33.4 RDW Std Deviation 38.6 RDW Coeff of Al 12.8 Plt Count 513 H MPV 9.5 Immature Gran % (Auto) 0.100 Neut % (Auto) 61.4 Lymph % (Auto) 27.1 [place] % (Auto) 6.6 Eos % (Auto) 3.5 Baso % (Auto) 1.3 H Absolute Neuts (auto) 4.5 Absolute Lymphs (auto) 2.01 Nucleated RBC % 0 Sodium 140 Potassium 3.1 L Chloride 106 Carbon Dioxide 28.0 Anion Gap 6 BUN 6 L Creatinine 0.92 Estim Creat Clear Calc 73.05 Est GFR (MDRD) Af Amer 85 Est GFR (MDRD) Non-Af 71 BUN/Creatinine Ratio 6.5 L Glucose 97 Calcium 8.8 Troponin I < 0.015 Radiography Diagnostic Testing: Radiology Impression Chest X-Ray 12/06/20 14:10 IMPRESSION: Normal x-ray examination of the chest. Electronically Signed: Filomena Stallworth MD at 15:58 EDT Tel , Service support , Discharge Plan Triage Chief Complaint: Chest Pain ED Provider: Kike Jeong Dx/Rx/DC Orders Instructions: ED Chest Pain, Uncertain Cause Prescriptions: No Action montelukast 10 mg tablet 10 mg PO QHS RF: 0 escitalopram oxalate 20 mg tablet 20 mg PO DAILY RF: 0 albuterol sulfate 90 mcg/actuation HFA aerosol inhaler 2 puff INHALATION PRN PRN (Reason: Sob &/Or Wheezing) RF: 0 tamsulosin 0.4 mg capsule 0.4 mg PO DAILY RF: 0 omeprazole 40 mg capsule,delayed release(DR/EC) 40 mg PO DAILY RF: 0 levothyroxine 50 MCG tablet 50 mcg PO DAILY RF: 0 candesartan 16 MG tablet 16 mg PO DAILY RF: 0 pravastatin 20 MG tablet 20 mg PO QHS RF: 0 cholecalciferol (vitamin D3) 2,000 UNIT tablet 2 tab PO DAILY RF: 0 topiramate 25 mg Tablet 25 mg PO QHS RF: 0 bupropion HCl 300 MG tablet extended release 24 hr 300 mg PO DAILY RF: 0 ondansetron 4 MG tablet 4 mg PO Q8H PRN PRN (Reason: Nausea) Qty: 10 RF: 0 Primary Care Provider: Jesusita Nalyor Referrals: Jesusita Naylor MD [Primary Care Provider] - Disposition Disposition: Home, self care
[2020-12-06 14:25] LABS: Absolute Lymphocyte Count 2.01 X10^3/uL (0.83-4.51); Absolute Neutrophil Count 4.5 X10^3/uL (2.0-7.7); Basophil% 1.3 % (0-1); Eosinophil# 0.26 X10^3/uL; Eosinophils% 3.5 % (0-5); Hematocrit 40.7 % (37-47); Hemoglobin 13.6 g/dL (12.0-15.0); Lymphocyte # 2.01 X10^3/ul (0.83-4.51); Lymphocyte % 27.1 % (19-41); Mean Corp Hgb Conc 33.4 g/dL (32-36); Mean Corpuscular Hgb 28.1 pg (27.0-32.0); Mean Corpuscular Volume 84.1 fL (81-99); Mean Platelet Vol. 9.5 fl (6.2-12.0); Monocyte# 0.49 X10^3/uL; Monocyte% 6.6 % (0-10); NRBC Flagged by Analyzer 0 % (0-5); Neutrophil # 4.54 X10^3/uL (2.7-7.7); Neutrophil % 61.4 % (47-70); Platelet Count 513 K/mm3 (150-450); RBC Distribution Width CV 12.8 % (11.6-14.6); RBC Distribution Width SD 38.6 fl (35.1-43.9); Red Blood Count 4.84 M/mm3 (4.2-5.4); White Blood Count 7.4 K/mm3 (4.4-11.0)
[2020-12-06 14:42] LABS: Anion Gap 6 (5-15); BUN 6 mg/dL (7-18); BUN/Creat Ratio 6.5 RATIO (10-20); Calcium,Total 8.8 mg/dL (8.5-10.1); Chloride 106 mmol/L (98-107); Creatinine, Serum 0.92 mg/dL (0.55-1.02); EST Glomerular Filtration Rate 71 mL/min (>60); Est Glom Filt Rate - Afr Amer 85 mL/min (>60); Estimated Creatinine Clearance 73.05 ml/min; Glucose 97 mg/dL (74-106); Potassium 3.1 mmol/L (3.5-5.1); Sodium Level 140 mmol/L (136-145)
[2020-12-06] MEDS: Aspirin 81 MG TAB.CHEW 324 MG PO (14:45)
--- NOTE | 2020-12-06 16:17 | ED.RN ---
REVIEWED D/C INSTRUCTIONS, FOLLOW UP CARE, AND S/S THAT WOULD WARRANT A RETURN TO THE ED WITH PT. PT VERBALIZED AN UNDERSTANDING AND DENIES FURTHER QUESTIONS FOR THIS RN. PT SKIN P/W/D, RESP EVEN AND UNLABORED, PT A&O X 3, NO DISTRESS NOTED. PT AMBULATED ODUT OF ED, GAIT STEADY.
== END 2020-12-06 16:18 | disposition home or self-care (01) ==
PROVIDERS: Emergency Provider Student in an Organized Health Care Education/Training Program; PCP Internal Medicine
DX: R07.9 Chest pain, unspecified (principal); F41.9 Anxiety disorder, unspecified; F32.9 Major depressive disorder, single episode, unspecified; I10 Essential (primary) hypertension; E78.00 Pure hypercholesterolemia, unspecified; E03.9 Hypothyroidism, unspecified; E66.9 Obesity, unspecified; Z79.899 Other long term (current) drug therapy
CPT/HCPCS: 71045; 80048; 84484; 85025; 93005; 99285; A4216

== ENCOUNTER 2021-01-25 12:46 | Emergency (ER) | payer MEDICARE, MEDICAID, SELFPAY ==
[2021-01-22 12:59] VITALS: BMI 31.7
[2021-01-25 12:46] VITALS: BP 94/55; PULSE 83; RESP 16; TEMP 36.7; O2SAT 97; BMI 31.5
--- NOTE | 2021-01-25 13:13 | CT_ITS ---
STUDY: CT ABDOMEN AND PELVIS WITHOUT CONTRAST REASON FOR EXAM: Female, 45 years old. Left flank pain. RADIATION DOSAGE (If Supplied By Facility): CTDIvol = ( 12.38 ) mGy, DLP = ( 640.41 ) mGycm TECHNIQUE: Transaxial images were obtained from the dome of the diaphragm to the symphysis pubis without oral contrast, and without intravenous contrast. Sagittal and coronal images were reconstructed. Individualized dose optimization techniques were used for this CT. COMPARISON: Comparison is made with prior study dated 09/01/2020. FINDINGS: The visualized lung bases are unremarkable. The visualized portions of the heart are within normal limits. Normal liver. Normal gallbladder and extrahepatic biliary system. Normal spleen. Normal pancreas. Normal bilateral adrenal glands. Normal right kidney. Normal left kidney. There is a small hiatal hernia. Normal small intestine. Normal colon. The appendix is visualized and appears normal. Normal abdominal aorta. Normal inferior vena cava. Normal retroperitoneum. Normal urinary bladder. Status post bilateral tubal ligation. Phleboliths are seen within the pelvis. Normal abdominal wall. Normal osseous structures. CT/Abdomen/Pelvis without Cont IMPRESSION: No acute abnormality is seen. Stable examination. Electronically Signed: Min Oconnor MD at 14:48 EDT , Service support ,
--- NOTE | 2021-01-25 13:14 | EDS_ITS ---
HPI History of Present Illness Chief Complaint: Abd Pain Detail of Chief Complaint: Abdominal pain intermittently for 3 days Informant: patient Onset/Context/Timing Current Severity: Mild Narrative Narrative: To the emergency department with her mother with complaint of abdominal pain that started in her left flank and now radiates to the left lower abdomen. Patient states the pains are about 3 days ago and is been intermittent but can last several hours at a time. Patient has had nausea but no vomiting. She complains of urinary frequency. Patient was seen at urgent care 3 days ago and had a dip urine which was unremarkable and was started on Macrobid for 3 days. Patient's not feeling improved. Her pain is mild at this time. She denies any fevers. She denies any blood in her stool or black tarry stools. She denies any diarrhea. Prior similar symptoms: Yes PFSH PFSH Medical History Abdominal pain Anxiety Depression Developmental disability Fibrocystic change of breast HTN (hypertension) hypercholesterolemia Hypothyroid Insect bite Home Medications candesartan 16 mg PO DAILY 12/12/15 [History Last Taken 12/24/19 05:00] levothyroxine 50 mcg PO DAILY 12/12/15 [History Last Taken 12/24/19 05:00] cholecalciferol (vitamin D3) 2 tab PO DAILY 01/28/19 [History Last Taken Unknown] albuterol sulfate 90 mcg/actuation aerosol inhaler 2 puff INHALATION PRN PRN g 12/17/19 [History Last Taken 12/24/19 05:00] escitalopram oxalate 20 mg tablet 20 mg PO DAILY tab 12/17/19 [History Last Taken Unknown] montelukast 10 mg tablet 10 mg PO QHS 12/17/19 [History Last Taken Unknown] tamsulosin 0.4 mg capsule 0.4 mg PO DAILY 12/17/19 [History Last Taken Unknown] bupropion HCl 300 mg PO DAILY 12/23/19 [History Last Taken Unknown] topiramate 25 mg PO QHS 12/23/19 [History Last Taken Unknown] omeprazole 40 mg capsule,delayed release 40 mg PO DAILY cap 02/10/20 [History Last Taken Unknown] ondansetron 4 mg PO Q8H PRN PRN #10 tab 09/01/20 [Rx Last Taken Unknown] nitrofurantoin monohydrate/macrocrystals 100 mg capsule 100 mg PO Q12H 5 Days #10 cap 01/22/21 [Rx Last Taken Unknown] hydrocodone-acetaminophen 1 tab PO Q4H PRN PRN 2 Days #10 tablet 01/25/21 [Rx Last Taken Unknown] sulfamethoxazole-trimethoprim [Bactrim DS] 1 tab PO BID #14 tab 01/25/21 [Rx Last Taken Unknown] Allergy/AdvReac Type Severity Reaction Status Date / Time amphetamine aspartate Allergy Itching Verified 01/25/21 12:49 [From Adderall] amphetamine sulfate Allergy Itching Verified 01/25/21 12:49 [From Adderall] dextroamphetamine saccharate Allergy Itching Verified 01/25/21 12:49 [From Adderall] dextroamphetamine sulfate Allergy Itching Verified 01/25/21 12:49 [From Adderall] sumatriptan [From Imitrex] Allergy Chest Verified 01/25/21 12:49 tightness sumatriptan succinate Allergy Chest Verified 01/25/21 12:49 [From Imitrex] tightness venom-honey bee Allergy Anaphylaxis Verified 01/25/21 12:49 Family History Father Cancer Surgical History History of dilation and curettage History of esophagogastroduodenoscopy (EGD) History of tubal ligation Status post fine needle aspiration Social History Smoking Status: Never smoker ROS ROS ED Gastrointestinal Gastrointestinal: Reports abdominal pain and nausea Genitourinary Genitourinary ED: Reports urinary frequency EXAM Physical Exam Const Vital Signs: 01/25/21 12:46 Temperature 98.1 F Temperature Source Temporal Pulse Rate 83 Respiratory Rate 16 Blood Pressure 94/55 L Blood Pressure Mean 68 Pulse Ox 97 Oxygen Delivery Method Room Air Positive well nourished and well developed General Appearance ED: well developed and NAD HEENT Reports TM's clear and moist mucous membranes normocephalic and atraumatic; Negative for trauma or tenderness Tympanic Membrane ED: Yes TM's clear Eyes PERRL and EOMs intact bilaterally General Eye ED: Negative for pale conjunctiva or scleral icterus Neck no lymphadenopathy, supple and no JVD General: Negative for tenderness Chest Wall inspection of chest normal and palpation of chest normal Chest: Negative for tenderness Resp normal respiratory effort and clear to auscultation bilaterally Effort and Inspection: Negative for respiratory distress or pain with movement Auscultation: Negative for rhonchi, wheezes or diminished lung sounds Cardio regular rate, regular rhythm, S1 normal heart sound, S2 normal heart sound and no murmurs Peripheral Pulses: pulses 2+ throughout GI normal to inspection, nondistended, normoactive bowel sounds, soft to palpation, non-tender, non-distended and no masses GI Narrative: Patient has mild tenderness over left lower quadrant and suprapubic region. There is no rebound, rigidity, or peritoneal signs. No CVA tenderness. Palpation: tender and guarding Back/Spine no CVA tenderness and no thoracic nor lumbar tenderness Extremity normal to inspection General Extremety ED: Negative for edema General Extremity: Negative for edema Neuro oriented x3, CN's II-XII intact bilaterally, no sensory deficits noted and gait normal Sensorium / Orientation: awake, alert, oriented to person, oriented to place and oriented to time Motor Exam: strength 5/5 throughout and strength abnormal Psych mental status grossly normal Skin no rashes or lesions noted and no wounds MDM MDM MDM Narrative Medical decision making narrative: Lab work-up was unremarkable. Is been on Macrobid for a few but the have 500 side of days and 10-25 WB C is with 1. Urine culture was sent. Patient will be started on Bactrim and given a few [place] for pain. It is unclear if she has pain related to urinary tract infection or possibly other etiology. Patient to follow-up with her primary care physician within next 3 to 5 days. Patient advised to return if worsening pain, fever, vomiting, bloody stools, or conditions worsen anyway. Patient received Toradol 30 mg IV in the department she had good pain relief here. Patient is resting comfortably. Lab Data Attestation: I reviewed the patient's lab results. Labs: Laboratory Results - last 24 hr 01/25/21 01/25/21 01/25/21 13:06 13:06 13:06 WBC 8.9 RBC 4.44 Hgb 12.6 Hct 38.2 MCV 86.0 MCH 28.4 MCHC 33.0 RDW Std Deviation 38.5 RDW Coeff of Al 12.3 Plt Count 422 MPV 9.6 Immature Gran % (Auto) 0.500 Neut % (Auto) 69.8 Lymph % (Auto) 17.4 L [place] % (Auto) 5.9 Eos % (Auto) 5.4 H Baso % (Auto) 1.0 Absolute Neuts (auto) 6.2 Absolute Lymphs (auto) 1.54 Nucleated RBC % 0 Sodium 138 Potassium 3.5 Chloride 107 Carbon Dioxide 25.0 Anion Gap 6 BUN 12 Creatinine 0.88 Estim Creat Clear Calc 76.37 Est GFR (MDRD) Af Amer 89 Est GFR (MDRD) Non-Af 74 BUN/Creatinine Ratio 13.6 Glucose 108 H Calcium 8.5 Serum , Qual NEGATIVE Urine Color Urine Clarity Urine pH Ur Specific [place] Urine Protein Urine Glucose (UA) Urine Ketones Urine Occult Blood Urine Nitrite Urine Bilirubin Urine Urobilinogen Ur Leukocyte Esterase Urine RBC Urine WBC Ur Squamous Epith Cells Urine Bacteria Urine Mucus 01/25/21 13:37 WBC RBC Hgb Hct MCV MCH MCHC RDW Std Deviation RDW Coeff of Al Plt Count MPV Immature Gran % (Auto) Neut % (Auto) Lymph % (Auto) [place] % (Auto) Eos % (Auto) Baso % (Auto) Absolute Neuts (auto) Absolute Lymphs (auto) Nucleated RBC % Sodium Potassium Chloride Carbon Dioxide Anion Gap BUN Creatinine Estim Creat Clear Calc Est GFR (MDRD) Af Amer Est GFR (MDRD) Non-Af BUN/Creatinine Ratio Glucose Calcium Serum , Qual Urine Color Yellow Urine Clarity Clear Urine pH 6.5 Ur Specific [place] 1.015 Urine Protein 15 H Urine Glucose (UA) Normal Urine Ketones Negative Urine Occult Blood 10 H Urine Nitrite Negative Urine Bilirubin Negative Urine Urobilinogen 1 H Ur Leukocyte Esterase 500 H Urine RBC 0-5 SEEN Urine WBC 10-25 SEEN Ur Squamous Epith Cells 5-10 SEEN Urine Bacteria 1+ Urine Mucus 1+ Radiography Diagnostic Testing: Radiology Impression Abdomen/Pelvis CT 01/25/21 13:13 IMPRESSION: No acute abnormality is seen. Stable examination. Electronically Signed: Min Oconnor MD at 14:48 EDT , Service support , Discharge Plan Triage Chief Complaint: Abd Pain ED Provider: Marivel Barba Dx/Rx/DC Orders Clinical Impression: Abdominal pain, UTI (urinary tract infection) Instructions: ED Abdominal Pain Unkn Cause Fem, ED CYSTITIS Female Adult Prescriptions: New hydrocodone-acetaminophen [hydrocodone-acetaminophen] 1 TABLET tablet 1 tab PO Q4H PRN PRN (Reason: Pain) 2 Days Qty: 10 RF: 0 sulfamethoxazole-trimethoprim [Bactrim DS] 800-160 mg tablet 1 tab PO BID Qty: 14 RF: 0 No Action montelukast 10 mg tablet 10 mg PO QHS RF: 0 escitalopram oxalate 20 mg tablet 20 mg PO DAILY RF: 0 albuterol sulfate 90 mcg/actuation HFA aerosol inhaler 2 puff INHALATION PRN PRN (Reason: Sob &/Or Wheezing) RF: 0 tamsulosin 0.4 mg capsule 0.4 mg PO DAILY RF: 0 omeprazole 40 mg capsule,delayed release(DR/EC) 40 mg PO DAILY RF: 0 nitrofurantoin monohyd/m-cryst [Macrobid] 100 mg capsule 100 mg PO Q12H 5 Days Qty: 10 RF: 0 levothyroxine 50 MCG tablet 50 mcg PO DAILY RF: 0 candesartan 16 MG tablet 16 mg PO DAILY RF: 0 cholecalciferol (vitamin D3) 2,000 UNIT tablet 2 tab PO DAILY RF: 0 topiramate 25 mg Tablet 25 mg PO QHS RF: 0 bupropion HCl 300 MG tablet extended release 24 hr 300 mg PO DAILY RF: 0 ondansetron 4 MG tablet 4 mg PO Q8H PRN PRN (Reason: Nausea) Qty: 10 RF: 0 Primary Care Provider: Jesusita Naylor Referrals: Jesusita Naylor MD [Primary Care Provider] - 3-5 Days Disposition Disposition: Home, Self Care
[2021-01-25 13:22] LABS: Absolute Lymphocyte Count 1.54 X10^3/uL (0.83-4.51); Absolute Neutrophil Count 6.2 X10^3/uL (2.0-7.7); Basophil# 0.09 X10^3/uL; Eosinophil# 0.48 X10^3/uL; Eosinophils% 5.4 % (0-5); Hematocrit 38.2 % (37-47); Hemoglobin 12.6 g/dL (12.0-15.0); Lymphocyte # 1.54 X10^3/ul (0.83-4.51); Lymphocyte % 17.4 % (19-41); Mean Corpuscular Hgb 28.4 pg (27.0-32.0); Mean Platelet Vol. 9.6 fl (6.2-12.0); Monocyte# 0.52 X10^3/uL; Monocyte% 5.9 % (0-10); NRBC Flagged by Analyzer 0 % (0-5); Neutrophil % 69.8 % (47-70); Platelet Count 422 K/mm3 (150-450); RBC Distribution Width CV 12.3 % (11.6-14.6); RBC Distribution Width SD 38.5 fl (35.1-43.9); Red Blood Count 4.44 M/mm3 (4.2-5.4); White Blood Count 8.9 K/mm3 (4.4-11.0)
[2021-01-25 13:34] LABS: Anion Gap 6 (5-15); BUN 12 mg/dL (7-18); BUN/Creat Ratio 13.6 RATIO (10-20); Calcium,Total 8.5 mg/dL (8.5-10.1); Chloride 107 mmol/L (98-107); Creatinine, Serum 0.88 mg/dL (0.55-1.02); EST Glomerular Filtration Rate 74 mL/min (>60); Est Glom Filt Rate - Afr Amer 89 mL/min (>60); Estimated Creatinine Clearance 76.37 ml/min; Glucose 108 mg/dL (74-106); Potassium 3.5 mmol/L (3.5-5.1); Sodium Level 138 mmol/L (136-145)
[2021-01-25] MEDS: 0.9% Normal Saline 1,000 ML 125 ML IV (13:36)
[2021-01-25] MEDS: Ketorolac 30 MG/ML Syringe IV (13:36)
[2021-01-25 13:48] LABS: Color, Urine Yellow (Yellow); Glucose, Dipstick Normal (Normal); Ketone-Dipstick Negative (Negative); Leukocyte Esterase-Dipstick 500 /ul (Negative); Nitrite-Dipstick Negative (Negative); Occult Blood-Urine 10 /ul (Negative); Protein-Dipstick 15 mg/dl (Negative); Specific Gravity, Urine 1.015 (1.002-1.030); Urine Bilirubin Dipstick Negative (Negative); Urine Clarity Clear (Clear); Urine Urobilinogen 1 mg/dl (Normal); Urine pH 6.5 (5.0 - 8.0)
[2021-01-25 13:55] LABS: Bacteria 1+ /hpf (None Seen); Mucous, Urine 1+ /hpf (<or=2+); Red Blood Cells-Urine 0-5 SEEN /hpf (0-5); Squamous Epithelial Cells - UA 5-10 SEEN /hpf (5-10); White Blood Cells 10-25 SEEN /hpf (0-5)
[2021-01-25 14:18] LABS: Internal QC Validated? YES +Cl - CLEAR BKGD; Pregnancy, Serum, hCG Quali. NEGATIVE Negative
[2021-01-25 15:03] VITALS: BP 121/74
== END 2021-01-25 15:04 | disposition home or self-care (01) ==
PROVIDERS: Emergency Provider Emergency Medicine; PCP Internal Medicine
DX: N39.0 Urinary tract infection, site not specified (principal); R10.32 Left lower quadrant pain; F41.9 Anxiety disorder, unspecified; F32.9 Major depressive disorder, single episode, unspecified; I10 Essential (primary) hypertension; E78.00 Pure hypercholesterolemia, unspecified; E03.9 Hypothyroidism, unspecified; Z79.899 Other long term (current) drug therapy
CPT/HCPCS: 74176; 80048; 81001; 84703; 85025; 87086; 87088; 96361; 96374; 99283; A4216

== ENCOUNTER 2021-02-19 20:57 | Emergency (ER) | payer MEDICARE, MEDICAID, SELFPAY ==
[2021-02-19 20:58] VITALS: BP 121/64; PULSE 74; RESP 14; TEMP 36.2; O2SAT 93; BMI 33.0
[2021-02-19] MEDS: Ketorolac 30 MG/ML Syringe IV (22:39)
[2021-02-19] MEDS: 0.9% Normal Saline 1,000 ML 999 ML IV (22:39)
[2021-02-19] MEDS: Metoclopramide 10 MG/2 ML Vial IV (22:39)
[2021-02-19] MEDS: DiphenhydrAMINE 50 MG/ML Syringe 25 MG IV (22:39)
--- NOTE | 2021-02-19 23:27 | EDS_ITS ---
HPI History of Present Illness Chief Complaint: Headache Informant: patient Onset/Context/Timing Onset: Days (4 days) Context: Gradual Current Severity: Moderate Maximum Severity: Moderate Narrative Narrative: Patient presents with 4-day history of migraine headache. She states it is right above and behind her eyes. No vision change. She does have light sensitivity, nausea, and vomiting. No recent head injuries and no URI symptoms. [facility] Medical History (Updated 02/19/21 @ 23:[address] Deya Bran MD) Abdominal pain Anxiety Depression Developmental disability Fibrocystic change of breast HTN (hypertension) hypercholesterolemia Hypothyroid Insect bite Migraines Home Medications candesartan 16 mg PO DAILY 12/12/15 [History Last Taken 12/24/19 05:00] levothyroxine 50 mcg PO DAILY 12/12/15 [History Last Taken 12/24/19 05:00] cholecalciferol (vitamin D3) 2 tab PO DAILY 01/28/19 [History Last Taken Unknown] albuterol sulfate 90 mcg/actuation aerosol inhaler 2 puff INHALATION PRN PRN g 12/17/19 [History Last Taken 12/24/19 05:00] escitalopram oxalate 20 mg tablet 20 mg PO DAILY tab 12/17/19 [History Last Taken Unknown] montelukast 10 mg tablet 10 mg PO QHS 12/17/19 [History Last Taken Unknown] tamsulosin 0.4 mg capsule 0.4 mg PO DAILY 12/17/19 [History Last Taken Unknown] bupropion HCl 300 mg PO DAILY 12/23/19 [History Last Taken Unknown] topiramate 25 mg PO QHS 12/23/19 [History Last Taken Unknown] omeprazole 40 mg capsule,delayed release 40 mg PO DAILY cap 02/10/20 [History Last Taken Unknown] Allergy/AdvReac Type Severity Reaction Status Date / Time amphetamine aspartate Allergy Itching Verified 02/19/21 20:58 [From Adderall] amphetamine sulfate Allergy Itching Verified 02/19/21 20:58 [From Adderall] dextroamphetamine saccharate Allergy Itching Verified 02/19/21 20:58 [From Adderall] dextroamphetamine sulfate Allergy Itching Verified 02/19/21 20:58 [From Adderall] sumatriptan [From Imitrex] Allergy Chest Verified 02/19/21 20:58 tightness sumatriptan succinate Allergy Chest Verified 02/19/21 20:58 [From Imitrex] tightness venom-honey bee Allergy Anaphylaxis Verified 02/19/21 20:58 Family History Father Cancer Surgical History History of dilation and curettage History of esophagogastroduodenoscopy (EGD) History of tubal ligation Status post fine needle aspiration Social History Smoking Status: Never smoker ROS ROS ED Constitutional Constitutional ED: Denies chills or fever(s) Eyes Eyes: Denies change in vision ENT ENT ED: Denies sore throat Cardiovascular Cardiovascular: Denies chest pain Respiratory/Chest Respiratory/Chest: Denies cough or dyspnea Gastrointestinal Gastrointestinal: Reports nausea and vomiting; Denies abdominal pain or diarrhea Genitourinary Genitourinary ED: Denies dysuria Musculoskeletal Musculoskeletal: Denies back pain or neck pain Integumentary Denies rash Neurologic Neurologic: Reports headache(s); Denies paresthesias or weakness Psychiatric Psychiatric: Denies anxiety or depression Allergic/Immunologic Allergic/Immunologic ED: Denies urticaria EXAM Physical Exam Const Vital Signs: 02/19/21 20:58 Temperature 97.1 F L Temperature Source Temporal Pulse Rate 74 Respiratory Rate 14 Blood Pressure 121/64 H Blood Pressure Mean 83 Pulse Ox 93 Oxygen Delivery Method Room Air Positive well nourished and well developed General Appearance ED: well developed HEENT Reports normocephalic and head/scalp atraumatic Eyes PERRL and EOMs intact bilaterally Neck supple and no meningeal signs Chest Wall inspection of chest normal and palpation of chest normal Resp normal respiratory effort and clear to auscultation bilaterally Cardio regular rate and regular rhythm GI normal to inspection, nondistended, normoactive bowel sounds Palpation: soft Extremity normal to inspection Neuro oriented x3 and no sensory deficits noted Sensorium / Orientation: alert Motor Exam: strength 5/5 throughout Psych mental status grossly normal Skin no rashes or lesions noted MDM MDM MDM Narrative Medical decision making narrative: Patient is given Toradol, Reglan, Benadryl, IV fluids. Treatment and Re-Evaluation Comments:: Repeat examination patient reports improvement in her headache. She is comfortable with discharge to home. Discharge Plan Triage Chief Complaint: Headache ED Provider: Deya Bran Dx/Rx/DC Orders Clinical Impression: Migraine Instructions: ED, Migraine (Classical) Prescriptions: No Action montelukast 10 mg tablet 10 mg PO QHS RF: 0 escitalopram oxalate 20 mg tablet 20 mg PO DAILY RF: 0 albuterol sulfate 90 mcg/actuation HFA aerosol inhaler 2 puff INHALATION PRN PRN (Reason: Sob &/Or Wheezing) RF: 0 tamsulosin 0.4 mg capsule 0.4 mg PO DAILY RF: 0 omeprazole 40 mg capsule,delayed release(DR/EC) 40 mg PO DAILY RF: 0 levothyroxine 50 MCG tablet 50 mcg PO DAILY RF: 0 candesartan 16 MG tablet 16 mg PO DAILY RF: 0 cholecalciferol (vitamin D3) 2,000 UNIT tablet 2 tab PO DAILY RF: 0 topiramate 25 mg Tablet 25 mg PO QHS RF: 0 bupropion HCl 300 MG tablet extended release 24 hr 300 mg PO DAILY RF: 0 Primary Care Provider: Care Physician,No Primary Referrals: Agustina Mello MD [STAFF PHYSICIAN] - As Needed Care Physician,No Primary [Primary Care Provider] - Disposition Disposition: Home, Self Care
[2021-02-19 23:45] VITALS: BP 118/63; PULSE 71; RESP 18; O2SAT 99
== END 2021-02-19 23:45 | disposition home or self-care (01) ==
PROVIDERS: Emergency Provider Emergency Medicine
DX: G43.909 Migraine, unspecified, not intractable, without status migrainosus (principal); F41.9 Anxiety disorder, unspecified; F32.9 Major depressive disorder, single episode, unspecified; I10 Essential (primary) hypertension; E03.9 Hypothyroidism, unspecified; E78.00 Pure hypercholesterolemia, unspecified; Z79.899 Other long term (current) drug therapy
CPT/HCPCS: 96361; 96374; 96375; 99283; J7030; A4216

== ENCOUNTER 2021-05-12 16:48 | Emergency (ER) | payer MEDICARE, MEDICAID, SELFPAY ==
[2021-05-12 16:50] VITALS: BP 113/89; PULSE 81; RESP 16; TEMP 36.6; O2SAT 98; BMI 31.6
--- NOTE | 2021-05-12 17:22 | EDS_ITS ---
HPI History of Present Illness Chief Complaint: Headache Informant: patient Narrative Narrative: Patient presents with a migraine going on for about 3 days. She states it started like a typical migraine in the front of her head and moves toward the back. It is bilateral. She has not had nausea and vomiting. She has minimal photophobia. She states if her headaches are real bad she has a lot of photophobia. However this is not a real bad headache. It is typical of her headaches. She takes Topamax for these. She also has an abortive medicine that she does not know the name of. When this headache started she was over at her mother's house. Therefore it was many hours later until she got home and took her Topamax that was due and her abortive medicine. They did not really help and the headaches waxed and waned since. No fevers or chills. No trauma. Nothing specifically makes it better or worse. There is no differences from her normal headache. [facility] Medical History Abdominal pain Anxiety Depression Developmental disability Fibrocystic change of breast HTN (hypertension) hypercholesterolemia Hypothyroid Insect bite Migraines Home Medications candesartan 16 mg PO DAILY 12/12/15 [History Last Taken 12/24/19 05:00] levothyroxine 50 mcg PO DAILY 12/12/15 [History Last Taken 12/24/19 05:00] cholecalciferol (vitamin D3) 2 tab PO DAILY 01/28/19 [History Last Taken Unknown] albuterol sulfate 90 mcg/actuation aerosol inhaler 2 puff INHALATION PRN PRN g 12/17/19 [History Last Taken 12/24/19 05:00] escitalopram oxalate 20 mg tablet 20 mg PO DAILY tab 12/17/19 [History Last Taken Unknown] montelukast 10 mg tablet 10 mg PO QHS 12/17/19 [History Last Taken Unknown] tamsulosin 0.4 mg capsule 0.4 mg PO DAILY 12/17/19 [History Last Taken Unknown] bupropion HCl 300 mg PO DAILY 12/23/19 [History Last Taken Unknown] topiramate 25 mg PO QHS 12/23/19 [History Last Taken Unknown] omeprazole 40 mg capsule,delayed release 40 mg PO DAILY cap 02/10/20 [History Last Taken Unknown] Allergy/AdvReac Type Severity Reaction Status Date / Time amphetamine aspartate Allergy Itching Verified 05/12/21 16:50 [From Adderall] amphetamine sulfate Allergy Itching Verified 05/12/21 16:50 [From Adderall] dextroamphetamine saccharate Allergy Itching Verified 05/12/21 16:50 [From Adderall] dextroamphetamine sulfate Allergy Itching Verified 05/12/21 16:50 [From Adderall] sumatriptan [From Imitrex] Allergy Chest Verified 05/12/21 16:50 tightness sumatriptan succinate Allergy Chest Verified 05/12/21 16:50 [From Imitrex] tightness venom-honey bee Allergy Anaphylaxis Verified 05/12/21 16:50 Family History Father Cancer Surgical History History of dilation and curettage History of esophagogastroduodenoscopy (EGD) History of tubal ligation Status post fine needle aspiration Social History Smoking Status: Never smoker ROS ROS ED Constitutional Constitutional ED: Denies chills or fever(s) Eyes Eyes: Denies blurry vision, change in vision or diplopia ENT ENT ED: Denies ear pain, rhinorrhea or sore throat Cardiovascular Cardiovascular: Denies chest pain Respiratory/Chest Respiratory/Chest: Denies cough or dyspnea Gastrointestinal Gastrointestinal: Denies nausea or vomiting Musculoskeletal Musculoskeletal: Denies neck pain Integumentary Denies abscess or rash Neurologic Neurologic: Reports headache(s); Denies weakness Endocrine Endocrinology: Denies polydipsia or polyuria Hematologic/Lymphatic Hematologic/Lymphatic: Denies easy bleeding or easy bruising Allergic/Immunologic Allergic/Immunologic ED: Denies mouth swelling or tongue swelling EXAM Physical Exam Const Vital Signs: 05/12/21 16:50 05/12/21 19:05 Temperature 97.8 F Temperature Source Temporal Pulse Rate 81 65 Respiratory Rate 16 14 Blood Pressure 113/89 H 100/85 H Blood Pressure Mean 97 Pulse Ox 98 Oxygen Delivery Method Room Air Patient is sitting in a slightly darkened room. She is nontoxic in appearance though. She is pleasant. She is actually laughing a bit. Positive well nourished and well developed General Appearance ED: well developed and NAD HEENT Reports normocephalic, TM's clear and moist mucous membranes atraumatic; Negative for temporal artery tenderness Face and Sinus: Negative for sinus tenderness Tympanic Membrane ED: Yes TM's clear Eyes PERRL and EOMs intact bilaterally Eyes Narrative: Very mild photophobia only. No pain with range of motion. Neck no lymphadenopathy and supple Resp normal respiratory effort and clear to auscultation bilaterally Cardio regular rate and regular rhythm GI non-tender Palpation: soft Back/Spine no CVA tenderness Neuro oriented x3 and no sensory deficits noted Sensorium / Orientation: awake and alert; Negative for orientation impaired, lethargic or stuporous Motor Exam: strength 5/5 throughout Psych mental status grossly normal Skin Lesions: no lesions Rashes: no rashes MDM MDM MDM Narrative Medical decision making narrative: Patient is given IV fluids, Reglan and Benadryl. I walk in the room she is feeling much better. She is looking at her phone. No photophobia. We will get her home at this time. Discharge Plan Triage Chief Complaint: Headache ED Provider: Anshul Gupta Dx/Rx/DC Orders Clinical Impression: Migraine Instructions: ED, Migraine (Classical) Prescriptions: No Action montelukast 10 mg tablet 10 mg PO QHS RF: 0 escitalopram oxalate 20 mg tablet 20 mg PO DAILY RF: 0 albuterol sulfate 90 mcg/actuation HFA aerosol inhaler 2 puff INHALATION PRN PRN (Reason: Sob &/Or Wheezing) RF: 0 tamsulosin 0.4 mg capsule 0.4 mg PO DAILY RF: 0 omeprazole 40 mg capsule,delayed release(DR/EC) 40 mg PO DAILY RF: 0 levothyroxine 50 MCG tablet 50 mcg PO DAILY RF: 0 candesartan 16 MG tablet 16 mg PO DAILY RF: 0 cholecalciferol (vitamin D3) 2,000 UNIT tablet 2 tab PO DAILY RF: 0 topiramate 25 mg Tablet 25 mg PO QHS RF: 0 bupropion HCl 300 MG tablet extended release 24 hr 300 mg PO DAILY RF: 0 Primary Care Provider: Isaac Hsu Referrals: Isaac Hsu MD [Primary Care Provider] - As Needed Disposition Disposition: Home, Self Care Discharge Date/Time: 05/12/21 19:09
[2021-05-12] MEDS: DiphenhydrAMINE 50 MG/ML Syringe IV (17:59)
[2021-05-12] MEDS: 0.9% Normal Saline 1,000 ML 999 ML IV (17:59)
[2021-05-12] MEDS: Metoclopramide 10 MG/2 ML Vial IV (17:59)
[2021-05-12 19:05] VITALS: BP 100/85; PULSE 65; RESP 14
== END 2021-05-12 19:09 | disposition home or self-care (01) ==
PROVIDERS: Emergency Provider Emergency Medicine; PCP Family Medicine
DX: G43.909 Migraine, unspecified, not intractable, without status migrainosus (principal); F41.9 Anxiety disorder, unspecified; F32.A Depression, unspecified; I10 Essential (primary) hypertension; E03.9 Hypothyroidism, unspecified; Z79.899 Other long term (current) drug therapy
CPT/HCPCS: 96361; 96374; 96375; 99283; J7030; A4216

== ENCOUNTER 2021-12-01 11:00 | Outpatient (RCR) | payer MEDICARE, MEDICAID, SELFPAY ==
--- NOTE | 2021-10-05 10:46 | HP.PTEVAL_ITS ---
Patient's Visit Information MAXIMUS BRADLEY is a 46 year old F referred to Physical Therapy by ANABEL Paul with a diagnosis of R shoulder,neck pain. Date of Evaluation: 10/05/21 Physical Therapist: Mario Burleson, DPT, OCS, CSCS - Visit Plan Frequency: 2-3x /Week Duration: 2-4 Weeks Plan: 2-3x/week for 3-4 weeks for. 1. US R UT themral. 2. STM to R UT and scap and A/PROM R shoulder. 3. strength posture, shoulder and RC/scap muscles to HEP. postural focus - Subjective R shoulder and neck pain laterally. been there a month since she slipped on ice and landed on R shoulder. No shoulder pain prior but did have neck pain. It is not improving. Sometimes hurts at rest, Hurt worse if lifts arm. neck hurts if stagnant. Reaching behind to was back and tuck shirt in. Sleeping is interrupted in that it wakes her up. Not employed . Dresses self but it hurts, basic ADLs getting done but can hurt if uses R UE, is L handed. Hobbies include coloring with L hand. No regular exercises. No numbness or tingling currently. - Pain R shoulder/neck Pain Intensity (Out of 10): 0 Pain Intensity Range: 0, 5 - Objective Walks and trasnfers I, good balance. Posture is forward head and protracted scapular posture with thoracic kyphosis posturally. Tender in supraspinatus insertion R shoulder min and max in R UT, scalenes and feels tight compared to L. Cervical aROM is WNL and symmetrical with some pain with end range extension. 65 rotation B. L SB feels tight on R side. UE AROM 130 R shoulder flexion, symmetircal rotations except end range R shoulder IR painful. elbow and wrist AROM WNL. reflexes 2/3 bi and tri B. Sensation WNL to gross light touch. Strength UE symmetrical strong and painful with flexion resisted. - HK, - neer, - c/s compression, - ext rotation lag, - drop arm. - Balance/Special Test Scores Oswestry Neck Score: 26 - Goals Goal 1:: Full aROM R shoulder without pain. Goal Time Frame: 2-4 Weeks Goal 2:: Patient feel pain 90% better at 1/10 at worst Goal Time Frame: 2-4 Weeks Goal 3:: Sleep without waking due to pain Goal Time Frame: 2-4 Weeks Goal 4:: Get dressed easily without pain Goal Time Frame: 2-4 Weeks - Rehabilitation Potential Physical Therapy Diagnosis: R shoulder pain and limited ROM and scap pain from fall. Rehabilitation Potential: Good - Anticipated Interventions Patient/Client Instruction: Educate patient on: Condition, Plan of Care For the Purpose of:: To decrease pain, To increase ROM, To improve muscle performance and motor function, To increase tolerance to activity/co ndition/position, To improve ability of physical actions for home/community/work/leisure Therapeutic Exercise to Include: Strength training, Postural training, Flexibilty training, Passive ROM, Active ROM For the Purpose of:: To decrease pain, To increase ROM, To improve muscle performance and motor function, To increase tolerance to activity/condi tion/position, To improve ability of physical actions for home/community/work/leisure Manual Therapy Techniques to Include: Mobilization, Passive ROM, Soft tissue mobilization For the Purpose of:: To decrease pain, To improve muscle performance and motor function, To increase tolerance to activity/condition/position, To improve ability of physical actions for home/community/work/leisure Thermo therapy (hot pack): Yes Ultrasound (thermal/non thermal): Yes For the Purpose of:: To decrease pain, To improve nutrient delivery to tissue, To improve muscle performance and motor function, To increase tolerance to activity/condition/position Thank you for the opportunity to evaluate your patient. For Medicare and Medicare HMO plans, please review the plan of care and approve it. It will need to be FAXED BACK to us at [phone] for Medicare purposes. For Medicare only, by signing this I certify the plan of care. Please let me know if there are questions or concerns regarding this plan of care. Physician Signature: Date:
--- NOTE | 2021-11-07 10:04 | HP.PTREVAL_ITS ---
Lydia Gonzalez, CHIEF CONSOLE OPERATOR-C, It has been my pleasure to treat MAXIMUS BRADLEY over the last 7 visits for R shoulder,neck pain. Please see the progress note below for an update on the physical therapy plan of care! Subjective: Not a lot better than when she started PT. Still having pain to 5/10 and sometimes 0/10 at rest. Lifting and carrying make it worse. Still feels like R arm is worseless. Doing HEP at home of bands and pendulum and ROM. Sleep is interrupted sometimes. No f/u scheduled with family physician that sent her here. Objective/Function: Full aROM R UE without c/o pain today. Still says it is painful to lift bags of groceries but no pain with contractions of R shoulder today in MMT. Neck ROM is 55 B rotation adn 50 extension without pain today. Objectively is improved from eval but not feeling any better. - rotator cuff tear testing today and - impingement tests, - apprehension. Pt wishes to contact doctor about other options and will cotninue HEp strengthening in the meantime and f/u. Plan Plan: f/u 3 weeks to progress nband strength, ensure goo neck and shoulder ROM, may need to add elevation strength Balance/Gait/Functional tests - Balance/Special Test Scores Oswestry Neck Score: 26 Goals Goal 1:: Full aROM R shoulder without pain. Goal Time Frame: 2-4 Weeks Goal Progress: Goal Met Goal 2:: Patient feel pain 90% better at 1/10 at worst Goal Time Frame: 2-4 Weeks Goal Progress: Not Progressing Goal 3:: Sleep without waking due to pain Goal Time Frame: 2-4 Weeks Goal Progress: Progressing Goal 4:: Get dressed easily without pain Goal Time Frame: 2-4 Weeks Goal Progress: Progressing Anticipated Interventions Patient/Client Instruction: Educate patient on: Condition, Plan of Care For the Purpose of:: To decrease pain, To increase ROM, To improve muscle performance and motor function, To increase tolerance to activity/condition/position, To improve ability of physical actions for home/community/work/leisure Therapeutic Exercise to Include: Strength training, Postural training, Flexibilty training, Passive ROM, Active ROM For the Purpose of:: To decrease pain, To increase ROM, To improve muscle performance and motor function, To increase tolerance to activity/condition/position, To improve ability of physical actions for home/community/work/leisure Manual Therapy Techniques to Include: Mobilization, Passive ROM, Soft tissue mobilization For the Purpose of:: To decrease pain, To improve muscle performance and motor function, To increase tolerance to activity/condition/position, To improve ability of physical actions for home/community/work/leisure Thermo therapy (hot pack): Yes Ultrasound (thermal/non thermal): Yes For the Purpose of:: To decrease pain, To improve nutrient delivery to tissue, To improve muscle performance and motor function, To increase tolerance to activity/condition/position Please do not hesitate to contact me at [phone] by phone or if you have questions or concerns regarding this new plan of care! Sincerely, Mario Burleson, DPT, OCS, CSCS
--- NOTE | 2021-12-01 11:12 | HP.PTDCSUM ---
It has been my pleasure to treat MAXIMUS BRADLEY referred by ANABEL Paul, with the diagnosis of R shoulder,neck pain for a total of 8 visit(s). Discharge Date: 12/01/21 Please see the following information for a summary of their discharge status. Subjective: No big changes. Has not been doing band exercises blaming it on the door. has been using R UE. Pain is still 8/10 if overdoes it. Lifting totes makes her worse. Sleep is OK. Saw chiropractor which did not help. Activities are pretty normal. Pain is still laterally at R shoulder bone. Neck feels fine. R shoulder/neck Pain Intensity (Out of 10): 0 % Improvement: 10 Objective/Function: Full aROM B shoulders and neck without pain today. strength is 4- in all shoulder motions except er which is slightly weaker, not a lot of pain complaints today but obviously unhappy with the overall pain level in shoulder. - drop arm. - labral tests. - sulcus. - instability. No obvious clinical reasoning for her pain, Tender over bicpes tendon however in R shoulder. Goal 1:: Full aROM R shoulder without pain. Goal Progress: Goal Met Goal 2:: Patient feel pain 90% better at 1/10 at worst Goal Progress: Not Progressing Goal 3:: Sleep without waking due to pain Goal Progress: Goal Met Goal 4:: Get dressed easily without pain Goal Progress: Goal Met Plan: d/c, pt to schedule with doctor regarding next step. If there are questions or concerns regarding this patient's physical therapy, please feel free to call me at [phone]. Thank you for the referral of this patient. Sincerely, Mario Burleson, DPT, OCS, CSCS Balance/Gait/Functional tests - Balance/Special Test Scores Oswestry Neck Score: 18
== END 2021-12-01 16:27 | disposition home or self-care (01) ==
LOC: PT 11:00
PROVIDERS: PCP Family Medicine; Referring Provider Nurse Practitioner Primary Care; Visit Provider Nurse Practitioner Primary Care
DX: M54.2 Cervicalgia (principal); M25.511 Pain in right shoulder
CPT/HCPCS: 97035; 97110; 97140; 97161; 97164; 97530

== ENCOUNTER 2022-03-01 19:12 | Emergency (ER) | payer MEDICARE, MEDICAID, SELFPAY ==
[2022-03-01 19:13] VITALS: BP 132/71; PULSE 84; RESP 14; TEMP 36.6; O2SAT 99; BMI 33.0
--- NOTE | 2022-03-01 19:35 | RAD_ITS ---
EXAM: XR RIGHT SHOULDER COMPLETE, 2 OR MORE VIEWS CLINICAL INDICATION: trauma TECHNIQUE: Two or more views of the right shoulder. This report was created using [employer] report generation technology. COMPARISON: None. FINDINGS: BONES/JOINTS: There is a small osteophyte on the inferior humeral head. No acute fracture. No subluxation. Normal alignment. Preservation of the joint space. No sclerotic or destructive changes observed. SOFT TISSUES: Unremarkable. No soft tissue swelling or gas. No radiopaque foreign body. RAD/Shoulder min 2 Views IMPRESSION: There are no acute osseous abnormalities. There are mild degenerative changes with small osteophytes. Electronically Signed: Hill Burleson MD at 20:06 EDT ,
--- NOTE | 2022-03-01 20:17 | EDS_ITS ---
HPI History of Present Illness Chief Complaint: Upper Extremity Injury Informant: patient Narrative Narrative: Patient presents with right shoulder pain since June. She had a mechanical fall. It was evidently x-rayed initially. Has not been x-rayed since. She points to the lateral aspect near the proximal humerus as a source of pain. Is not in her chest or back. It hurts when she lifts her arm overhead. No numbness tingling weakness. This is her right shoulder and she is left-hand dominant. She has been given nonsteroidals by her primary physician but this does not help. No other complaints. No secondary fall or repeat injury. 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 Medical History Abdominal pain Anxiety Depression Developmental disability Fibrocystic change of breast HTN (hypertension) hypercholesterolemia Hypothyroid Insect bite Lab test negative for COVID-19 virus Migraines Thrush Home Medications candesartan 16 mg tablet 16 mg PO DAILY 12/12/15 [History Last Taken 12/24/19 05:00] levothyroxine 50 mcg tablet 50 mcg PO DAILY 12/12/15 [History Last Taken 12/24/19 05:00] cholecalciferol (vitamin D3) 50 mcg (2,000 unit) tablet 2 tab PO DAILY 01/28/19 [History Last Taken Unknown] albuterol sulfate 90 mcg/actuation aerosol inhaler 2 puff inhalation PRN PRN Sob &/Or Wheezing 12/17/19 [History Last Taken 12/24/19 05:00] escitalopram oxalate 20 mg tablet 20 mg PO DAILY 12/17/19 [History Last Taken Unknown] montelukast 10 mg tablet 10 mg PO QHS 12/17/19 [History Last Taken Unknown] tamsulosin 0.4 mg capsule 0.4 mg PO DAILY 12/17/19 [History Last Taken Unknown] bupropion HCl 300 mg 24 hr tablet, extended release 300 mg PO DAILY 12/23/19 [History Last Taken Unknown] topiramate 25 mg tablet 25 mg PO QHS 12/23/19 [History Last Taken Unknown] omeprazole 40 mg capsule,delayed release 40 mg PO DAILY 02/10/20 [History Last Taken Unknown] prednisone 20 mg tablet 60 mg PO DAILY #15 tabs 03/01/22 [Rx Last Taken Unknown] Allergy/AdvReac Type Severity Reaction Status Date / Time amphetamine aspartate Allergy Itching Verified 03/01/22 19:13 [From Adderall] amphetamine sulfate Allergy Itching Verified 03/01/22 19:13 [From Adderall] dextroamphetamine saccharate Allergy Itching Verified 03/01/22 19:13 [From Adderall] dextroamphetamine sulfate Allergy Itching Verified 03/01/22 19:13 [From Adderall] sumatriptan [From Imitrex] Allergy Chest Verified 03/01/22 19:13 tightness sumatriptan succinate Allergy Chest Verified 03/01/22 19:13 [From Imitrex] tightness venom-honey bee Allergy Anaphylaxis Verified 03/01/22 19:13 Family History Father Cancer Surgical History History of dilation and curettage History of esophagogastroduodenoscopy (EGD) History of tubal ligation Status post fine needle aspiration Social History Smoking Status: Never smoker ROS ROS ED Constitutional Constitutional ED: Denies fever(s) or subjective ENT ENT ED: Denies rhinorrhea or sore throat Cardiovascular Cardiovascular: Denies chest pain or palpitations Respiratory/Chest Respiratory/Chest: Denies cough Gastrointestinal Gastrointestinal: Denies nausea or vomiting Musculoskeletal Musculoskeletal: Reports other Details: See history of present illness. ; Denies back pain or neck pain Integumentary Denies Abrasions or rash Neurologic Neurologic: Denies paresthesias or weakness Endocrine Endocrinology: Denies polydipsia or polyuria Hematologic/Lymphatic Hematologic/Lymphatic: Denies easy bleeding, easy bruising or lymphadenopathy Allergic/Immunologic Allergic/Immunologic ED: Denies urticaria EXAM Physical Exam Const Vital Signs: 03/01/22 19:13 Temperature 97.9 F Temperature Source Temporal Pulse Rate 84 Respiratory Rate 14 Blood Pressure 132/71 H Blood Pressure Mean 91 Pulse Ox 99 Oxygen Delivery Method Room Air Positive well nourished and well developed Constitutional Narrative: Patient is eating and drinking moving hand well. General Appearance ED: well developed and NAD HEENT atraumatic Neck Neck Narrative: No pain with range of motion or tenderness Chest Wall inspection of chest normal and palpation of chest normal Resp normal respiratory effort and clear to auscultation bilaterally Auscultation: Negative for rales, rhonchi or wheezes Cardio regular rate and regular rhythm Back/Spine no CVA tenderness Extremity Extremity Narrative: Patient has some mild tenderness to the lateral aspect of the shoulder over the proximal humerus. No notable skin change. No erythema or warmth. Passive range of motion and active range of motion low is good. But when she starts lifting overhead she gets pain. Pulses are normal. She does not lose her pulse with lifting the arm. Sensation and capillary refill also normal distally. Neuro no focal motor deficits and no sensory deficits noted Psych mental status grossly normal Skin Lesions: no lesions Rashes: no rashes MDM MDM MDM Narrative Medical decision making narrative: 4 view x-ray of the right shoulder looked at by me and read by radiology shows no acute process. There are indications of some arthritic changes. Patient states that nonsteroidals do not help. I do not think narcotics are appropriate for a long-term issue. I will try a few days of steroids. She will follow-up with her primary physician. She is having arrangements made to see orthopedics already Radiography Diagnostic Testing: Clinical Impression(s) from Imaging Studies Shoulder X-Ray 03/01/22 19:35 IMPRESSION: There are no acute osseous abnormalities. There are mild degenerative changes with small osteophytes. Electronically Signed: Hill Burleson MD at 20:06 EDT Reading Location ID and State: [facility] / [place] Tel , Service support , Discharge Plan Triage Chief Complaint: Upper Extremity Injury ED Provider: Anshul Gupta Dx/Rx/DC Orders Clinical Impression: Acute pain of right shoulder Instructions: ED Shoulder Pain, Uncertain Cause Prescriptions: New prednisone 20 mg tablet 60 mg PO DAILY Qty: 15 0RF No Action montelukast 10 mg tablet 10 mg PO QHS Label Comments: TAKE 1 TABLET BY MOUTH EVERYDAY AT BEDTIME escitalopram oxalate 20 mg tablet 20 mg PO DAILY Label Comments: TAKE 1 TABLET BY MOUTH EVERY DAY albuterol sulfate 90 mcg/actuation HFA aerosol inhaler 2 puff INHALATION PRN PRN (Reason: Sob &/Or Wheezing) Label Comments: INHALE 2 PUFFS BY MOUTH INSTRUCTED EVERY 4 HOURS NEEDED FOR WHEEZING/SHORTNESS OF BREATH. tamsulosin 0.4 mg capsule 0.4 mg PO DAILY Label Comments: TAKE 1 CAPSULE BY MOUTH EVERYDAY AT BEDTIME omeprazole 40 mg capsule,delayed release(DR/EC) 40 mg PO DAILY Label Comments: TAKE 1 CAPSULE BY MOUTH EVERY DAY levothyroxine 50 MCG tablet 50 mcg PO DAILY candesartan 16 MG tablet 16 mg PO DAILY cholecalciferol (vitamin D3) 2,000 UNIT tablet 2 tab PO DAILY topiramate 25 mg Tablet 25 mg PO QHS bupropion HCl 300 MG tablet extended release 24 hr 300 mg PO DAILY Primary Care Provider: Isaac Hsu Referrals: Isaac Hsu MD [Primary Care Provider] - As soon as possible Disposition Disposition: Home, Self Care
[2022-03-01] MEDS: predniSONE 20 MG Tablet 60 MG PO (20:31)
== END 2022-03-01 20:33 | disposition home or self-care (01) ==
PROVIDERS: Emergency Provider Emergency Medicine; PCP Family Medicine; Visit Provider Emergency Medicine
DX: M25.511 Pain in right shoulder (principal); M19.90 Unspecified osteoarthritis, unspecified site; E78.00 Pure hypercholesterolemia, unspecified; I10 Essential (primary) hypertension; F41.9 Anxiety disorder, unspecified; F32.A Depression, unspecified; Z79.899 Other long term (current) drug therapy; Z79.52 Long term (current) use of systemic steroids
CPT/HCPCS: 73030; 99282

== ENCOUNTER 2022-08-13 15:14 | Emergency (ER) | payer MEDICARE, MEDICAID, SELFPAY ==
[2022-08-13 15:14] VITALS: BP 121/80; PULSE 110; RESP 16; TEMP 36.4; O2SAT 98; BMI 32.4
--- NOTE | 2022-08-13 15:25 | ED.VIS.LOWEX ---
HPI History of Present Illness Chief Complaint: Lower Extremity Injury Detail of Chief Complaint: Injury right ankle just prior to arrival Informant: patient and parent Occured/Mechanism Mechanism/Context: Yes same level fall Comment: Patient was walking. She slipped in mud. She twisted her ankle. She presents because of pain that she localizes over the lateral aspect of the right ankle. Onset/Context/Timing Onset: Hours Context: Sudden Onset Timing: Continuous Quality of Pain: Dull and Aching Location: Anterior the right lateral malleolus Current Severity: Mild Maximum Severity: Moderate Worsened by: Palpation over the anterior talofibular ligament Relieved by: Rest and elevate Associated Symptoms Associated Symptoms: Negative for Parasthesia, Weakness or Loss of Funtion Narrative Narrative: Patient is a 47-year-old woman with no significant past medical history and no contraindication to NSAIDs. She denies injury to her knee or hip. She denies history of PAD. She denies history of peptic ulcer disease, black or maroon-colored stool. She denies history of diabetes or hypertension. She denies prior injury to her right ankle. Tetanus Immunization: Unknown Prior similar symptoms: No Recent Illness/Hospitalization: No PFSH PFSH Medical History Abdominal pain Anxiety Depression Developmental disability Fibrocystic change of breast HTN (hypertension) hypercholesterolemia Hypothyroid Insect bite Lab test negative for COVID-19 virus Migraines Thrush Home Medications candesartan 16 mg tablet 16 mg PO DAILY 12/12/15 [History Last Taken 12/24/19 05:00] levothyroxine 50 mcg tablet 50 mcg PO DAILY 12/12/15 [History Last Taken 12/24/19 05:00] cholecalciferol (vitamin D3) 50 mcg (2,000 unit) tablet 2 tab PO DAILY 01/28/19 [History Last Taken Unknown] albuterol sulfate 90 mcg/actuation aerosol inhaler 2 puff inhalation PRN PRN Sob &/Or Wheezing 12/17/19 [History Last Taken 12/24/19 05:00] escitalopram oxalate 20 mg tablet 20 mg PO DAILY 12/17/19 [History Last Taken Unknown] montelukast 10 mg tablet 10 mg PO QHS 12/17/19 [History Last Taken Unknown] tamsulosin 0.4 mg capsule 0.4 mg PO DAILY 12/17/19 [History Last Taken Unknown] bupropion HCl 300 mg 24 hr tablet, extended release 300 mg PO DAILY 12/23/19 [History Last Taken Unknown] topiramate 25 mg tablet 25 mg PO QHS 12/23/19 [History Last Taken Unknown] omeprazole 40 mg capsule,delayed release 40 mg PO DAILY 02/10/20 [History Last Taken Unknown] prednisone 20 mg tablet 60 mg PO DAILY #15 tabs 03/01/22 [Rx Last Taken Unknown] naproxen 500 mg tablet 500 mg PO BID #14 tabs 08/13/22 [Rx Last Taken Unknown] Allergy/AdvReac Type Severity Reaction Status Date / Time amphetamine aspartate Allergy Itching Verified 08/13/22 15:15 [From Adderall] amphetamine sulfate Allergy Itching Verified 08/13/22 15:15 [From Adderall] dextroamphetamine saccharate Allergy Itching Verified 08/13/22 15:15 [From Adderall] dextroamphetamine sulfate Allergy Itching Verified 08/13/22 15:15 [From Adderall] sumatriptan [From Imitrex] Allergy Chest Verified 08/13/22 15:15 tightness sumatriptan succinate Allergy Chest Verified 08/13/22 15:15 [From Imitrex] tightness venom-honey bee Allergy Anaphylaxis Verified 08/13/22 15:15 Family History Father Cancer Surgical History History of dilation and curettage History of esophagogastroduodenoscopy (EGD) History of tubal ligation Status post fine needle aspiration Social History (Updated 08/13/22 @ 15:[address] Kain Ivy MD) household members: family Smoking Status: Never smoker substance use type: does not use ROS ROS ED ENT ENT ED: Reports other Details: Denies epistaxis. ; Denies ear pain, rhinorrhea or sore throat Cardiovascular Cardiovascular: Denies chest pain or palpitations Respiratory/Chest Respiratory/Chest: Denies cough, dyspnea or dyspnea on exertion Gastrointestinal Gastrointestinal: Denies nausea or vomiting Neurologic Neurologic: Denies paresthesias or weakness Hematologic/Lymphatic Hematologic/Lymphatic: Denies easy bleeding or easy bruising EXAM Physical Exam Const Vital Signs: 08/13/22 15:14 Temperature 97.6 F L Temperature Source Temporal Pulse Rate 110 H Respiratory Rate 16 Blood Pressure 121/80 H Blood Pressure Mean 93 Pulse Ox 98 Oxygen Delivery Method Room Air Positive well nourished, well developed and obese General Appearance ED: well developed and NAD Nutritional Appearance: obese HEENT Reports moist mucous membranes HEENT Narrative: Ears are normal. Nares patent. No septal deviation hematoma. No dental trauma. normocephalic and atraumatic Eyes Eyes Narrative: Pupils equal round reactive. Extraocular muscles are intact. There is no septal junctional hemorrhage. Neck full ROM and supple Thyroid: Negative for tender Resp normal respiratory effort Cardio regular rate and regular rhythm Back/Spine no CVA tenderness Thoracic Spine / Upper Back: Negative for thoracic spinal tenderness Lumbar Spine / Lower Back: Negative for lumbar spinal tenderness Extremity full ROM; Negative for normal to inspection Extremity Narrative: There is swelling anterior to the lateral malleolus. There is no pain the patient over the medial malleolus or lateral malleolus. There is tenderness over the anterior talofibular ligament. There is no laxity with drawer testing. There is no pain to palpation at the base of the fifth metatarsal. DP and PT pulse are palpable. General Extremety ED: Negative for cyanosis, edema or weight-bearing difficulty General Extremity: Negative for cyanosis, edema or weight-bearing difficulty Neuro oriented x3, CN's II-XII intact bilaterally, moves all extremities and no sensory deficits noted Sensorium / Orientation: alert Psych mental status grossly normal Skin no wounds Lesions: no lesions Rashes: no rashes MDM MDM MDM Narrative Medical decision making narrative: Patient has a stable first-degree sprain of the anterior talofibular ligament. Per the [place] ankle rule imaging is not indicated. Patient was treated with NSAID and Aircast. Patient was referred to her doctor. She was instructed to draw the output with her foot 4-6 times a day. She was instructed to wear flat shoes and no inclines or going up ladders. Review of prior records indicates that patient has history of hypertension and hypercholesterolemia. She is on no medicine for elevated cholesterol. And she is on no medicine for hypertension. Patient was asked again whether she had hypertension and she denied. Discharge Plan Triage Chief Complaint: Lower Extremity Injury ED Provider: Kain Ivy Dx/Rx/DC Orders Clinical Impression: Sprain of anterior talofibular ligament of right ankle Prescriptions: New naproxen 500 mg tablet 500 mg PO BID Qty: 14 0RF No Action montelukast 10 mg tablet 10 mg PO QHS Label Comments: TAKE 1 TABLET BY MOUTH EVERYDAY AT BEDTIME escitalopram oxalate 20 mg tablet 20 mg PO DAILY Label Comments: TAKE 1 TABLET BY MOUTH EVERY DAY albuterol sulfate 90 mcg/actuation HFA aerosol inhaler 2 puff INHALATION PRN PRN (Reason: Sob &/Or Wheezing) Label Comments: INHALE 2 PUFFS BY MOUTH INSTRUCTED EVERY 4 HOURS NEEDED FOR WHEEZING/SHORTNESS OF BREATH. tamsulosin 0.4 mg capsule 0.4 mg PO DAILY Label Comments: TAKE 1 CAPSULE BY MOUTH EVERYDAY AT BEDTIME omeprazole 40 mg capsule,delayed release(DR/EC) 40 mg PO DAILY Label Comments: TAKE 1 CAPSULE BY MOUTH EVERY DAY levothyroxine 50 MCG tablet 50 mcg PO DAILY candesartan 16 MG tablet 16 mg PO DAILY cholecalciferol (vitamin D3) 2,000 UNIT tablet 2 tab PO DAILY topiramate 25 mg Tablet 25 mg PO QHS bupropion HCl 300 MG tablet extended release 24 hr 300 mg PO DAILY prednisone 20 mg tablet 60 mg PO DAILY Qty: 15 0RF Primary Care Provider: Isaac Hsu Referrals: Isaac Hsu MD [Primary Care Provider] - 10-14 Days if not better Activity Restrictions/Additional Instructions: 1. Draw the alphabet with your foot 4-6 times a day 2. Apply ice 6-10 times a day 3. Take Naprosyn as prescribed [id number]. 4. Do not wear heeled shoes. Wear shoes with out a heel cord elevation. 5. You should not go up any inclines or ladders until you are pain-free. 6. Wear Aircast during the day for support and stability. You may remove prior to going to bed. Disposition Disposition: Home, Self Care
[2022-08-13] MEDS: Naproxen 250 MG Tablet 500 MG PO (15:44)
== END 2022-08-13 15:50 | disposition home or self-care (01) ==
LOC: ED 15:40
PROVIDERS: Emergency Provider Emergency Medicine; PCP Family Medicine; Visit Provider Emergency Medicine
DX: S93.491A Sprain of other ligament of right ankle, initial encounter (principal); I10 Essential (primary) hypertension; E78.00 Pure hypercholesterolemia, unspecified; E66.9 Obesity, unspecified; W18.30XA Fall on same level, unspecified, initial encounter
CPT/HCPCS: 99283

== ENCOUNTER 2022-10-14 15:10 | Emergency (ER) | payer MEDICARE, MEDICAID, SELFPAY ==
[2022-10-14 15:11] VITALS: BP 132/97; PULSE 86; RESP 16; TEMP 36.4; O2SAT 97; BMI 32.1
--- NOTE | 2022-10-14 15:29 | EX.ED.DYSGE1 ---
HPI History of Present Illness Chief Complaint: Nausea/Vomiting Informant: patient Onset/Context/Timing Onset: Weeks (2 weeks) Narrative Narrative: Patient presents secondary to nausea and vomiting for the past 2 weeks. She states she presented emergency room today because she was is tired of it. She has not seen her doctor in the last 2 weeks about the vomiting. She states she has longstanding heartburn and is currently on omeprazole. In spite of this she still has heartburn on a regular basis. She states she was told she has a small hiatal hernia but it is not large enough to do any procedure at this point and the doctors do not feel that this is the cause of her reflux. She has had no fever or chills. She reports constipation but states that she did have a bowel movement earlier today. [facility] Medical History Abdominal pain Anxiety Depression Developmental disability Fibrocystic change of breast HTN (hypertension) hypercholesterolemia Hypothyroid Lab test negative for COVID-19 virus Migraines Thrush Home Medications candesartan 16 mg tablet 16 mg PO DAILY 12/12/15 [History Last Taken 12/24/19 05:00] levothyroxine 50 mcg tablet 50 mcg PO DAILY 12/12/15 [History Last Taken 12/24/19 05:00] cholecalciferol (vitamin D3) 50 mcg (2,000 unit) tablet 2 tab PO DAILY 01/28/19 [History Last Taken Unknown] albuterol sulfate 90 mcg/actuation aerosol inhaler 2 puff inhalation PRN PRN Sob &/Or Wheezing 12/17/19 [History Last Taken 12/24/19 05:00] escitalopram oxalate 20 mg tablet 20 mg PO DAILY 12/17/19 [History Last Taken Unknown] montelukast 10 mg tablet 10 mg PO QHS 12/17/19 [History Last Taken Unknown] tamsulosin 0.4 mg capsule 0.4 mg PO DAILY 12/17/19 [History Last Taken Unknown] bupropion HCl 300 mg 24 hr tablet, extended release 300 mg PO DAILY 12/23/19 [History Last Taken Unknown] topiramate 25 mg tablet 25 mg PO QHS 12/23/19 [History Last Taken Unknown] omeprazole 40 mg capsule,delayed release 40 mg PO DAILY 02/10/20 [History Last Taken Unknown] prednisone 20 mg tablet 60 mg PO DAILY #15 tabs 03/01/22 [Rx Last Taken Unknown] naproxen 500 mg tablet 500 mg PO BID #14 tabs 08/13/22 [Rx Last Taken Unknown] ondansetron 4 mg disintegrating tablet 4 mg PO Q8H PRN PRN Nausea #10 tabs 10/14/22 [Rx Last Taken Unknown] Allergy/AdvReac Type Severity Reaction Status Date / Time amphetamine aspartate Allergy Itching Verified 10/14/22 15:12 [From Adderall] amphetamine sulfate Allergy Itching Verified 10/14/22 15:12 [From Adderall] dextroamphetamine saccharate Allergy Itching Verified 10/14/22 15:12 [From Adderall] dextroamphetamine sulfate Allergy Itching Verified 10/14/22 15:12 [From Adderall] sumatriptan [From Imitrex] Allergy Chest Verified 10/14/22 15:12 tightness sumatriptan succinate Allergy Chest Verified 10/14/22 15:12 [From Imitrex] tightness venom-honey bee Allergy Anaphylaxis Verified 10/14/22 15:12 Family History Father Cancer Surgical History History of dilation and curettage History of esophagogastroduodenoscopy (EGD) History of tubal ligation Status post fine needle aspiration Social History household members: family Smoking Status: Never smoker substance use type: does not use ROS ROS ED Constitutional Constitutional ED: Denies chills or fever(s) Eyes Eyes: Denies change in vision or discharge from eye(s) ENT ENT ED: Denies discharge from eye(s), rhinorrhea or sore throat Cardiovascular Cardiovascular: Denies chest pain or palpitations Respiratory/Chest Respiratory/Chest: Denies cough or dyspnea Gastrointestinal Gastrointestinal: Reports constipation, nausea and vomiting; Denies abdominal pain or diarrhea Genitourinary Genitourinary ED: Denies dysuria Musculoskeletal Musculoskeletal: Denies back pain or extremity pain Integumentary Denies Abrasions or rash Neurologic Neurologic: Denies headache(s) or weakness Psychiatric Psychiatric: Denies anxiety or depression Allergic/Immunologic Allergic/Immunologic ED: Denies lip swelling or urticaria EXAM Physical Exam Const Vital Signs: 10/14/22 15:11 Temperature 97.6 F L Temperature Source Temporal Pulse Rate 86 Respiratory Rate 16 Blood Pressure 132/97 H Blood Pressure Mean 108 Pulse Ox 97 Oxygen Delivery Method Room Air Positive well nourished and well developed General Appearance ED: well developed HEENT Reports normocephalic and head/scalp atraumatic Eyes PERRL and EOMs intact bilaterally Neck supple Chest Wall inspection of chest normal and palpation of chest normal Resp normal respiratory effort and clear to auscultation bilaterally Cardio regular rate and regular rhythm GI normal to inspection, nondistended, normoactive bowel sounds Palpation: soft Extremity normal to inspection Neuro oriented x3 and no sensory deficits noted Sensorium / Orientation: alert Motor Exam: strength 5/5 throughout Psych mental status grossly normal Skin no rashes or lesions noted MDM MDM MDM Narrative Medical decision making narrative: Patient was given a dose of IV Zofran and Protonix along with IV fluids. Labwork obtained to evaluate for leukocytosis, anemia, and electrolyte derangement. Urinalysis obtained to evaluate for infection/hematuria. Lab Data Attestation: I reviewed the patient's lab results. Labs: Laboratory Results - last 24 hr 10/14/22 10/14/22 10/14/22 15:55 16:00 16:00 WBC 10.7 RBC 4.82 Hgb 13.0 Hct 39.7 MCV 82.4 MCH 27.0 MCHC 32.7 RDW Std Deviation 38.5 RDW Coeff of Al 13.0 Plt Count 447 MPV 9.4 Immature Gran % (Auto) 0.500 Neut % (Auto) 62.5 Lymph % (Auto) 24.8 [place] % (Auto) 7.2 Eos % (Auto) 4.0 Baso % (Auto) 1.0 Absolute Neuts (auto) 6.7 Absolute Lymphs (auto) 2.66 Nucleated RBC % 0 Sodium 139 Potassium 3.5 Chloride 107 Carbon Dioxide 25.0 Anion Gap 7 BUN 12 Creatinine 0.86 Estim Creat Clear Calc 76.52 Est GFR (MDRD) Af Amer 91 Est GFR (MDRD) Non-Af 75 BUN/Creatinine Ratio 13.9 Glucose 81 Calcium 9.1 Total Bilirubin 0.50 Direct Bilirubin 0.13 AST 15 ALT 18 Alkaline Phosphatase 85 Total Protein 6.9 Albumin 3.3 Globulin 3.6 Lipase 90 Urine Color Yellow Urine Clarity Cloudy Urine pH 8.0 Ur Specific [place] 1.015 Urine Protein Negative Urine Glucose (UA) Normal Urine Ketones Negative Urine Occult Blood Negative Urine Nitrite Negative Urine Bilirubin Negative Urine Urobilinogen Normal Ur Leukocyte Esterase Negative Urine RBC 0 SEEN Urine WBC 0 SEEN Ur Squamous Epith Cells 0-5 SEEN Amorphous Sediment 1+ Urine Bacteria 0 SEEN Urine Mucus 0 SEEN Treatment and Re-Evaluation :: CBC and chemistry studies unremarkable. LFTs and lipase normal. Urinalysis reveals no sign of infection. No urine ketones are noted. On repeat evaluation patient does feel improved. She will be given a prescription for Zofran. She is to continue her omeprazole. Return instructions provided. Discharge Plan Triage Chief Complaint: Nausea/Vomiting ED Provider: Deya Bran Dx/Rx/DC Orders Clinical Impression: Vomiting Instructions: ED Vomiting (Adult) Prescriptions: New ondansetron 4 mg tablet,disintegrating 4 mg PO Q8H PRN PRN (Reason: Nausea) Qty: 10 0RF No Action montelukast 10 mg tablet 10 mg PO QHS Label Comments: TAKE 1 TABLET BY MOUTH EVERYDAY AT BEDTIME escitalopram oxalate 20 mg tablet 20 mg PO DAILY Label Comments: TAKE 1 TABLET BY MOUTH EVERY DAY albuterol sulfate 90 mcg/actuation HFA aerosol inhaler 2 puff INHALATION PRN PRN (Reason: Sob &/Or Wheezing) Label Comments: INHALE 2 PUFFS BY MOUTH INSTRUCTED EVERY 4 HOURS NEEDED FOR WHEEZING/SHORTNESS OF BREATH. tamsulosin 0.4 mg capsule 0.4 mg PO DAILY Label Comments: TAKE 1 CAPSULE BY MOUTH EVERYDAY AT BEDTIME omeprazole 40 mg capsule,delayed release(DR/EC) 40 mg PO DAILY Label Comments: TAKE 1 CAPSULE BY MOUTH EVERY DAY levothyroxine 50 MCG tablet 50 mcg PO DAILY candesartan 16 MG tablet 16 mg PO DAILY cholecalciferol (vitamin D3) 2,000 UNIT tablet 2 tab PO DAILY topiramate 25 mg Tablet 25 mg PO QHS bupropion HCl 300 MG tablet extended release 24 hr 300 mg PO DAILY prednisone 20 mg tablet 60 mg PO DAILY Qty: 15 0RF naproxen 500 mg tablet 500 mg PO BID Qty: 14 0RF Primary Care Provider: Isaac Hsu Referrals: Isaac Hsu MD [Primary Care Provider] - 1-2 Weeks Disposition Disposition: Home, Self Care
[2022-10-14] MEDS: 0.9% Normal Saline 1,000 ML 1000 ML IV (15:56)
[2022-10-14] MEDS: Ondansetron 4 MG/2 ML Vial IV (15:56)
[2022-10-14 16:04] LABS: Absolute Lymphocyte Count 2.66 X10^3/uL (0.83-4.51); Absolute Neutrophil Count 6.7 X10^3/uL (2.0-7.7); Basophil# 0.11 X10^3/uL; Eosinophil# 0.43 X10^3/uL; Hematocrit 39.7 % (37-47); Lymphocyte # 2.66 X10^3/ul (0.83-4.51); Lymphocyte % 24.8 % (19-41); Mean Corp Hgb Conc 32.7 g/dL (32-36); Mean Corpuscular Volume 82.4 fL (81-99); Mean Platelet Vol. 9.4 fl (6.2-12.0); Monocyte# 0.77 X10^3/uL; Monocyte% 7.2 % (0-10); NRBC Flagged by Analyzer 0 % (0-5); Neutrophil # 6.72 X10^3/uL (2.7-7.7); Neutrophil % 62.5 % (47-70); Platelet Count 447 K/mm3 (150-450); RBC Distribution Width SD 38.5 fl (35.1-43.9); Red Blood Count 4.82 M/mm3 (4.2-5.4); White Blood Count 10.7 K/mm3 (4.4-11.0)
[2022-10-14 16:04] LABS: Bacteria 0 SEEN /hpf (None Seen); Mucous, Urine 0 SEEN /hpf (<or=2+); Red Blood Cells-Urine 0 SEEN /hpf (0-5); White Blood Cells 0 SEEN /hpf (0-5)
[2022-10-14 16:07] LABS: POSITIVE COUNT NO; POSITIVE DIFFERENTIAL NO; POSITIVE MORPHOLOGY NO
[2022-10-14 16:08] LABS: Color, Urine Yellow (Yellow); Glucose, Dipstick Normal (Normal); Ketone-Dipstick Negative (Negative); Leukocyte Esterase-Dipstick Negative /ul (Negative); Nitrite-Dipstick Negative (Negative); Occult Blood-Urine Negative /ul (Negative); Protein-Dipstick Negative (Negative); Specific Gravity, Urine 1.015 (1.002-1.030); Urine Bilirubin Dipstick Negative (Negative); Urine Clarity Cloudy (Clear); Urine Urobilinogen Normal (Normal)
[2022-10-14 16:15] LABS: Amorphous Sediment 1+; Squamous Epithelial Cells - UA 0-5 SEEN /hpf (5-10)
[2022-10-14 16:23] LABS: AST(SGOT) 15 U/L (15-37); Alanine Aminotransfer ALT/SGPT 18 U/L (13-56); Albumin, Serum 3.3 g/dL (3.2-5.0); Alkaline Phosphatase 85 U/L (45-117); Anion Gap 7 (5-15); BUN 12 mg/dL (7-18); BUN/Creat Ratio 13.9 RATIO (10-20); Bilirubin, Direct 0.13 mg/dL (0.00-0.30); Calcium,Total 9.1 mg/dL (8.5-10.1); Chloride 107 mmol/L (98-107); Creatinine, Serum 0.86 mg/dL (0.55-1.02); EST Glomerular Filtration Rate 75 mL/min (>60); Est Glom Filt Rate - Afr Amer 91 mL/min (>60); Estimated Creatinine Clearance 76.52 ml/min; Globulin 3.6 g/dL (2.2-4.2); Glucose 81 mg/dL (74-106); Lipase 90 U/L (73-393); Potassium 3.5 mmol/L (3.5-5.1); Protein, Total 6.9 g/dL (6.4-8.2); Sodium Level 139 mmol/L (136-145)
[2022-10-14 17:08] VITALS: RESP 16
== END 2022-10-14 17:24 | disposition home or self-care (01) ==
PROVIDERS: Emergency Provider Emergency Medicine; PCP Family Medicine; Visit Provider Emergency Medicine
DX: R11.2 Nausea with vomiting, unspecified (principal); I10 Essential (primary) hypertension; R12 Heartburn; E78.00 Pure hypercholesterolemia, unspecified; K59.00 Constipation, unspecified; Z79.899 Other long term (current) drug therapy
CPT/HCPCS: 80048; 80076; 81001; 83690; 85025; 96361; 96365; 96375; 99283; J7030; A4216; J2405

== ENCOUNTER 2023-02-18 13:55 | Emergency (ER) | payer MEDICARE, MEDICAID, SELFPAY ==
[2023-02-18 13:56] VITALS: BP 139/83; PULSE 83; RESP 18; TEMP 37; O2SAT 96
--- NOTE | 2023-02-18 14:16 | ED.VIS.GI ---
HPI HPI - GI History of Present Illness Chief Complaint: Abd Pain Detail of Chief Complaint: Abdominal pain for months. Mild rectal bleeding for the last several days. Informant: patient Abdominal Pain/Flank Pain Onset: Month(s) Context: Gradual Onset Timing: Intermittent Quality: Cramping Location: Diffuse Current Severity: Mild Maximum Severity: Mild Worsened by: Nothing Relieved by: Nothing Nausea/Vomiting/Emesis GI Symptom: Negative for Nausea or Vomiting Diarrhea/Melena/Hematochezia GI Symptom: Positive for - (Constipation.); Negative for Diarrhea, Melena or Hematochezia Associated Symptoms Associated Symptoms: Negative for Dysuria, Frequency, Hematuria or Urgency Narrative Narrative: 47-year-old female history of hypertension. Only prior abdominal pelvic surgery was a tubal ligation. States that she has had abdominal cramping intermittently for the last several months. No weight loss actual weight gain. She denies any fever. No dysuria. Last 3 days she has had intermittent bright red blood per rectum. No history of hemorrhoids. Denies rectal bleeding. Prior similar symptoms: Yes Recent Illness/Hospitalization: No PFSH PFSH Medical History Abdominal pain Anxiety Depression Developmental disability Fibrocystic change of breast HTN (hypertension) hypercholesterolemia Hypothyroid Lab test negative for COVID-19 virus Migraines Thrush Home Medications candesartan 16 mg tablet 16 mg PO DAILY 12/12/15 [History Last Taken 12/24/19 05:00] levothyroxine 50 mcg tablet 50 mcg PO DAILY 12/12/15 [History Last Taken 12/24/19 05:00] cholecalciferol (vitamin D3) 50 mcg (2,000 unit) tablet 2 tab PO DAILY 01/28/19 [History Last Taken Unknown] albuterol sulfate 90 mcg/actuation aerosol inhaler 2 puff inhalation PRN PRN Sob &/Or Wheezing 12/17/19 [History Last Taken 12/24/19 05:00] escitalopram oxalate 20 mg tablet 20 mg PO DAILY 12/17/19 [History Last Taken Unknown] montelukast 10 mg tablet 10 mg PO QHS 12/17/19 [History Last Taken Unknown] tamsulosin 0.4 mg capsule 0.4 mg PO DAILY 12/17/19 [History Last Taken Unknown] bupropion HCl 300 mg 24 hr tablet, extended release 300 mg PO DAILY 12/23/19 [History Last Taken Unknown] topiramate 25 mg tablet 25 mg PO QHS 12/23/19 [History Last Taken Unknown] omeprazole 40 mg capsule,delayed release 40 mg PO DAILY 02/10/20 [History Last Taken Unknown] prednisone 20 mg tablet 60 mg (3 x 20 mg) PO DAILY #15 tabs 03/01/22 [Rx Last Taken Unknown] naproxen 500 mg tablet 500 mg PO BID #14 tabs 08/13/22 [Rx Last Taken Unknown] ondansetron 4 mg disintegrating tablet 4 mg PO Q8H PRN PRN Nausea #10 tabs 10/14/22 [Rx Last Taken Unknown] Allergy/AdvReac Type Severity Reaction Status Date / Time amphetamine aspartate Allergy Itching Verified 02/18/23 13:56 [From Adderall] amphetamine sulfate Allergy Itching Verified 02/18/23 13:56 [From Adderall] dextroamphetamine saccharate Allergy Itching Verified 02/18/23 13:56 [From Adderall] dextroamphetamine sulfate Allergy Itching Verified 02/18/23 13:56 [From Adderall] sumatriptan [From Imitrex] Allergy Chest Verified 02/18/23 13:56 tightness sumatriptan succinate Allergy Chest Verified 02/18/23 13:56 [From Imitrex] tightness venom-honey bee Allergy Anaphylaxis Verified 02/18/23 13:56 Family History Father Cancer Surgical History History of dilation and curettage History of esophagogastroduodenoscopy (EGD) History of tubal ligation Status post fine needle aspiration Social History household members: family Smoking Status: Never smoker substance use type: does not use ROS ROS ED ROS Narrative Abdominal cramping. Constipation. No dysuria. No fever. No weight loss. Review of Systems ROS Unobtainable: Denies due to encephalopathy Constitutional Constitutional ED: Denies chills or fever(s) ENT ENT ED: Denies ear pain Cardiovascular Cardiovascular: Denies chest pain or palpitations Respiratory/Chest Respiratory/Chest: Denies cough or dyspnea Gastrointestinal Gastrointestinal: Reports abdominal pain and constipation; Denies diarrhea, melena, nausea or vomiting Genitourinary Genitourinary ED: Denies dysuria or hematuria Musculoskeletal Musculoskeletal: Denies arthralgias Integumentary Denies abscess Neurologic Neurologic: Denies headache(s) Psychiatric Psychiatric: Denies anxiety Endocrine Endocrinology: Denies polydipsia Hematologic/Lymphatic Hematologic/Lymphatic: Denies easy bleeding Allergic/Immunologic Allergic/Immunologic ED: Denies mouth swelling or tongue swelling EXAM Physical Exam Narrative Exam Narrative: 47-year-old female no acute distress. Vital signs stable afebrile. HEENT exam unremarkable. Moist extremities. Lungs clear. Heart regular rhythm rate about 80 no murmur. Abdomen soft nondistended normal bowel sounds no peritoneal signs. No localizing tenderness. No hernia or mass. No [place] sign McBurney's point tenderness. No signs of obstruction. Very benign abdominal exam. No pulsatile mass. Moving all 4 extremities. Nontender no edema. She is awake and alert with no focal motor deficits. Const Vital Signs: 02/18/23 13:56 Temperature 98.6 F Temperature Source Temporal Pulse Rate 83 Respiratory Rate 18 Blood Pressure 139/83 H Blood Pressure Mean 101 Pulse Ox 96 Oxygen Delivery Method Room Air Positive well nourished and well developed; Negative for cachectic, contractures or unkempt General Appearance ED: well developed and NAD; Negative for unkempt, cachectic, contractures or pallor Nutritional Appearance: Negative for cachectic HEENT Reports moist mucous membranes; Denies dry mucous membranes normocephalic and atraumatic; Negative for trauma or tenderness Mouth ED: No dry mucous membranes Mouth: No dry mucous membranes Eyes PERRL and EOMs intact bilaterally General Eye ED: Negative for pale conjunctiva or scleral icterus Neck no lymphadenopathy, supple and no JVD General: Negative for tenderness Carotids: Negative for other Lymph Lymphatic: Negative for other Resp normal respiratory effort and clear to auscultation bilaterally Effort and Inspection: Negative for respiratory distress Auscultation: Negative for rales, rhonchi or wheezes Cardio regular rate, regular rhythm, S1 normal heart sound, S2 normal heart sound and no murmurs Rate: Negative for bradycardia or tachycardic Rhythm: Negative for abnormal rhythm GI non-tender, non-distended and no masses Inspection: Negative for abdominal distention Auscultation: normoactive bowel sounds Palpation: soft; Negative for tender, guarding, rigid, hepatomegaly, splenomegaly, hernia, mass, pulsatile mass or rebound tenderness present Back/Spine no CVA tenderness General Back: Negative for CVA tenderness Cervical Spine: Negative for cervical spine tenderness Thoracic Spine / Upper Back: Negative for thoracic spinal tenderness Lumbar Spine / Lower Back: Negative for lumbar spinal tenderness Coccyx: Negative for other Extremity full ROM General Extremety ED: Negative for edema or tenderness General Extremity: Negative for edema Neuro CN's II-XII intact bilaterally and moves all extremities Sensorium / Orientation: alert, oriented to person, oriented to place and oriented to time; Negative for orientation impaired, confused, lethargic or stuporous Motor Exam: strength 5/5 throughout Psych mental status grossly normal and thought process normal Appearance: Negative for unkempt Attitude: No agitated Mood & Affect: Negative for depressed, anxious or tearful Skin no wounds General Skin Exam: Negative for jaundice or pallor Lesions: no lesions Rashes: no rashes Trauma: Negative for abrasion Nails: Negative for discolored MDM MDM MDM Narrative Medical decision making narrative: 49-year-old with abdominal discomfort. Benign exam. This may be from constipation. She is also had some rectal bleeding. Screening labs will be obtained. At this time I do not think she needs any imaging. Unless the labs are drastically abnormal. Seems like a very mild lower GI bleed either from internal hemorrhoids., Polyps or diverticulosis. No clots Repeat exam patient doing well at 3: 28 PM patient doing well. We discussed her test results. Urine shows some red cells few whites no significant bacteria and no nitrates. She is not having urinary symptoms. She is comfortable waiting for culture to determine if for a started on antibiotics. She will use MiraLAX [id number] for constipation which she has at home. Follow-up with her doctor if not improving. History & Record Review Discussion w/independent historian: Patient and Friend Additional record(s) reviewed:: Prior inpatient record, Prior outpatient record, Prior ED visit and Prior labs Lab Data Attestation: I reviewed the patient's lab results. Lab results narrative: CBC normal. White count 8.9. H&H of 12 and 37. Platelets 475. Your chemistries show a gap of 8. No monitor BUN/creatinine is 0.8. Glucose 101. Liver enzymes normal. Lipase 24. Urinalysis shows 50-100 red cells, 5-10 white cells, rare bacteria and no nitrites. A urine culture will be sent. Labs: Laboratory Results - last 24 hr 02/18/23 14:20 WBC 8.9 RBC 4.68 Hgb 12.2 Hct 37.9 MCV 81.0 MCH 26.1 L MCHC 32.2 RDW Std Deviation 38.4 RDW Coeff of Al 13.2 Plt Count 475 H MPV 9.7 Immature Gran % (Auto) 0.400 Neut % (Auto) 59.7 Lymph % (Auto) 27.3 [place] % (Auto) 6.8 Eos % (Auto) 4.8 Baso % (Auto) 1.0 Absolute Neuts (auto) 5.3 Absolute Lymphs (auto) 2.44 Nucleated RBC % 0 Sodium 143 Potassium 3.7 Chloride 110 H Carbon Dioxide 25.0 Anion Gap 8 BUN 7 Creatinine 0.88 Estim Creat Clear Calc 74.78 Est GFR (MDRD) Af Amer 89 Est GFR (MDRD) Non-Af 73 BUN/Creatinine Ratio 7.9 L Glucose 101 Calcium 8.7 Total Bilirubin 0.50 AST 7 L ALT 14 Alkaline Phosphatase 80 Total Protein 6.5 Albumin 3.1 L Globulin 3.4 Albumin/Globulin Ratio 0.9 Lipase 24 Urine Color Yellow Urine Clarity Cloudy Urine pH 6.0 Ur Specific [place] 1.025 Urine Protein 30 H Urine Glucose (UA) Normal Urine Ketones 5 H Urine Occult Blood 250 H Urine Nitrite Negative Urine Bilirubin Negative Urine Urobilinogen 1 H Ur Leukocyte Esterase 100 H Urine RBC 50-100 SEEN Urine WBC 5-10 SEEN Ur Squamous Epith Cells 0-5 SEEN Urine Bacteria RARE Urine Mucus 0 SEEN Discharge Plan Triage Chief Complaint: Abd Pain Other Complaint: GI Bleed ED Provider: Greg Arroyo Dx/Rx/DC Orders Clinical Impression: Abdominal pain Instructions: Abdominal Pain Prescriptions: No Action montelukast 10 mg tablet 10 mg PO QHS Patient Comments: TAKE 1 TABLET BY MOUTH EVERYDAY AT BEDTIME escitalopram oxalate 20 mg tablet 20 mg PO DAILY Patient Comments: TAKE 1 TABLET BY MOUTH EVERY DAY albuterol sulfate 90 mcg/actuation HFA aerosol inhaler 2 puff INHALATION PRN PRN (Reason: Sob &/Or Wheezing) Patient Comments: INHALE 2 PUFFS BY MOUTH INSTRUCTED EVERY 4 HOURS NEEDED FOR WHEEZING/SHORTNESS OF BREATH. tamsulosin 0.4 mg capsule 0.4 mg PO DAILY Patient Comments: TAKE 1 CAPSULE BY MOUTH EVERYDAY AT BEDTIME omeprazole 40 mg capsule,delayed release(DR/EC) 40 mg PO DAILY Patient Comments: TAKE 1 CAPSULE BY MOUTH EVERY DAY levothyroxine 50 MCG tablet 50 mcg PO DAILY candesartan 16 MG tablet 16 mg PO DAILY cholecalciferol (vitamin D3) 2,000 UNIT tablet 2 tab PO DAILY topiramate 25 mg Tablet 25 mg PO QHS bupropion HCl 300 MG tablet extended release 24 hr 300 mg PO DAILY prednisone 20 mg tablet 60 mg PO DAILY Qty: 15 0RF naproxen 500 mg tablet 500 mg PO BID Qty: 14 0RF ondansetron 4 mg tablet,disintegrating 4 mg PO Q8H PRN PRN (Reason: Nausea) Qty: 10 0RF Primary Care Provider: Isaac Hsu Referrals: Isaac Hsu MD [Primary Care Provider] - 3-5 Days Activity Restrictions/Additional Instructions: Plenty of fluids and rest. Fruits, vegetables, fiber and MiraLAX for your constipation. Your labs were unremarkable. The urine showed red cells and only a few white cells. We will send it for culture. The urine culture was positive meaning bacteria grows we will contact you and start you on antibiotic. Follow-up with your doctor if not improving. Disposition Disposition: Home, Self Care
[2023-02-18 14:17] VITALS: BMI 32.4
--- NOTE | 2023-02-18 14:27 | ED.RN ---
Patient ambulatory to bathroom, gait steady. Urine collected and sent to lab.
[2023-02-18 14:34] LABS: Absolute Lymphocyte Count 2.44 X10^3/uL (0.83-4.51); Absolute Neutrophil Count 5.3 X10^3/uL (2.0-7.7); Basophil# 0.09 X10^3/uL; Eosinophil# 0.43 X10^3/uL; Eosinophils% 4.8 % (0-5); Hematocrit 37.9 % (37-47); Hemoglobin 12.2 g/dL (12.0-15.0); Lymphocyte # 2.44 X10^3/ul (0.83-4.51); Lymphocyte % 27.3 % (19-41); Mean Corp Hgb Conc 32.2 g/dL (32-36); Mean Corpuscular Hgb 26.1 pg (27.0-32.0); Mean Platelet Vol. 9.7 fl (6.2-12.0); Monocyte# 0.61 X10^3/uL; Monocyte% 6.8 % (0-10); NRBC Flagged by Analyzer 0 % (0-5); Neutrophil # 5.33 X10^3/uL (2.7-7.7); Neutrophil % 59.7 % (47-70); Platelet Count 475 K/mm3 (150-450); RBC Distribution Width CV 13.2 % (11.6-14.6); RBC Distribution Width SD 38.4 fl (35.1-43.9); Red Blood Count 4.68 M/mm3 (4.2-5.4); White Blood Count 8.9 K/mm3 (4.4-11.0)
[2023-02-18 14:45] LABS: ALB/GLOB Ratio 0.9 RATIO (0.9-2.4); AST(SGOT) 7 U/L (15-37); Alanine Aminotransfer ALT/SGPT 14 U/L (13-56); Albumin, Serum 3.1 g/dL (3.2-5.0); Alkaline Phosphatase 80 U/L (45-117); Anion Gap 8 (5-15); BUN 7 mg/dL (7-18); BUN/Creat Ratio 7.9 RATIO (10-20); Calcium,Total 8.7 mg/dL (8.5-10.1); Chloride 110 mmol/L (98-107); Creatinine, Serum 0.88 mg/dL (0.55-1.02); EST Glomerular Filtration Rate 73 mL/min (>60); Est Glom Filt Rate - Afr Amer 89 mL/min (>60); Estimated Creatinine Clearance 74.78 ml/min; Globulin 3.4 g/dL (2.2-4.2); Glucose 101 mg/dL (74-106); Lipase 24 U/L (13-75); Potassium 3.7 mmol/L (3.5-5.1); Protein, Total 6.5 g/dL (6.4-8.2); Sodium Level 143 mmol/L (136-145)
--- NOTE | 2023-02-18 15:03 | ED.RN ---
Urine collected and sent to lab
[2023-02-18 15:06] LABS: Mucous, Urine 0 SEEN /hpf (<or=2+)
[2023-02-18 15:10] LABS: Color, Urine Yellow (Yellow); Glucose, Dipstick Normal (Normal); Ketone-Dipstick 5 mg/dl (Negative); Leukocyte Esterase-Dipstick 100 /ul (Negative); Nitrite-Dipstick Negative (Negative); Occult Blood-Urine 250 /ul (Negative); Protein-Dipstick 30 mg/dl (Negative); Specific Gravity, Urine 1.025 (1.002-1.030); Urine Bilirubin Dipstick Negative (Negative); Urine Clarity Cloudy (Clear); Urine Urobilinogen 1 mg/dl (Normal)
[2023-02-18 15:18] LABS: Bacteria RARE /hpf (None Seen); Red Blood Cells-Urine 50-100 SEEN /hpf (0-5); Squamous Epithelial Cells - UA 0-5 SEEN /hpf (5-10); White Blood Cells 5-10 SEEN /hpf (0-5)
== END 2023-02-18 15:39 | disposition home or self-care (01) ==
PROVIDERS: Emergency Provider Emergency Medicine; PCP Family Medicine; Visit Provider Emergency Medicine
DX: R10.9 Unspecified abdominal pain (principal); K62.5 Hemorrhage of anus and rectum; E78.00 Pure hypercholesterolemia, unspecified; I10 Essential (primary) hypertension; K59.00 Constipation, unspecified
CPT/HCPCS: 80053; 81001; 83690; 85025; 87086; 87088; 99283; A4216

== ENCOUNTER 2024-01-17 14:49 | Emergency (ER) | payer MEDICARE, MEDICAID, SELFPAY ==
[2024-01-17 14:50] VITALS: BP 111/77; PULSE 85; RESP 16; TEMP 36.3; O2SAT 94; BMI 34.3
--- NOTE | 2024-01-17 15:55 | RAD_ITS ---
STUDY: X-RAY - LEFT ELBOW REASON FOR EXAM: Female, 48 years old. PAIN TECHNIQUE: 3 view(s) of the elbow. COMPARISON: None. FINDINGS: Normal visualized humerus, radius and ulna. Normal radiocapitellar and ulnotrochlear articulations. The soft tissue structures are unremarkable. RAD/Elbow min 3 Views IMPRESSION: Normal x-ray examination of the elbow. Electronically Signed: Magdy Campbell MD at 16:53 EDT ,
--- NOTE | 2024-01-17 17:05 | EX.ED.UPPERE ---
HPI History of Present Illness Chief Complaint: Upper Extremity Injury Narrative Narrative: 48-year-old female past medical history of hypothyroidism, [id number], presents with her fianc? because of 1 week of left posterior elbow pain. Pain is worse with movement. States has been doing a lot of activity with her left arm including coloring, and making envelopes. She is not taking any analgesics because she does not have any at home. She denies any trauma. No fevers or chills, no nausea or vomiting, no other symptoms. [facility] Medical History Thrush Lab test negative for COVID-19 virus Migraines Abdominal pain Developmental disability Anxiety Fibrocystic change of breast Depression hypercholesterolemia HTN (hypertension) Hypothyroid Home Medications ?Medication ?Instructions ?Recorded ?Last Taken ?Type candesartan 16 mg tablet 16 mg PO DAILY 12/12/15 12/24/19 05:00 History levothyroxine 50 mcg tablet 50 mcg PO DAILY 12/12/15 12/24/19 05:00 History cholecalciferol (vitamin D3) 50 2 tab PO DAILY 01/28/19 Unknown History mcg (2,000 unit) tablet albuterol sulfate 90 mcg/actuation 2 puff inhalation PRN PRN Sob &/Or 12/17/19 12/24/19 05:00 History aerosol inhaler Wheezing escitalopram oxalate 20 mg tablet 20 mg PO DAILY 12/17/19 Unknown History montelukast 10 mg tablet 10 mg PO QHS 12/17/19 Unknown History tamsulosin 0.4 mg capsule 0.4 mg PO DAILY 12/17/19 Unknown History bupropion HCl 300 mg 24 hr tablet, 300 mg PO DAILY 12/23/19 Unknown History extended release topiramate 25 mg tablet 25 mg PO QHS 12/23/19 Unknown History omeprazole 40 mg capsule,delayed 40 mg PO DAILY 02/10/20 Unknown History release prednisone 20 mg tablet 60 mg (3 x 20 mg) PO DAILY #15 tabs 03/01/22 Unknown Rx naproxen 500 mg tablet 500 mg PO BID #14 tabs 08/13/22 Unknown Rx ondansetron 4 mg disintegrating 4 mg PO Q8H PRN PRN Nausea #10 tabs 10/14/22 Unknown Rx tablet naproxen 500 mg tablet (Naprosyn) 500 mg PO BID PRN pain #20 tabs 01/17/24 Unknown Rx Allergy/AdvReac Type Severity Reaction Status Date / Time amphetamine aspartate (From Allergy Itching Verified 01/17/24 14:50 Adderall) amphetamine sulfate (From Allergy Itching Verified 01/17/24 14:50 Adderall) dextroamphetamine saccharate Allergy Itching Verified 01/17/24 14:50 (From Adderall) dextroamphetamine sulfate Allergy Itching Verified 01/17/24 14:50 (From Adderall) sumatriptan (From Imitrex) Allergy Chest Verified 01/17/24 14:50 tightness sumatriptan succinate (From Allergy Chest Verified 01/17/24 14:50 Imitrex) tightness venom-honey bee Allergy Anaphylaxis Verified 01/17/24 14:50 Family History Father Cancer Surgical History History of tubal ligation Status post fine needle aspiration History of esophagogastroduodenoscopy (EGD) History of dilation and curettage Social History household members: family Smoking Status: Never smoker substance use type: does not use ROS ROS ED ROS Narrative Constitutional: No fever, no chills. HEENT: No sore throat. No neck pain. No loss of vision. No rhinorrhea. Cardiovascular: No chest pain. No palpitations. No pedal edema. Respiratory: No cough, no shortness of breath. Abdominal: No abdominal pain. No nausea. No vomiting. Genitourinary: No dysuria. No hematuria. Musculoskeletal: No myalgias. Left posterior elbow pain, worse with movement. Neurologic: No headaches. No dizziness. No lightheadedness. Skin: No rash. No change in color. Psychiatric: No depression. No anxiety. EXAM Physical Exam Narrative Exam Narrative: Afebrile. Vital signs noted. Regular rate and rhythm. Lungs clear to auscultation bilaterally. Abdomen soft nontender with normal active bowel sounds. Neurological examination nonfocal and nonlateralizing. Examination of the left elbow reveals flexion extension intact with pronation and supination. No overt swelling. No tenderness over radial head. Mild tenderness to palpation and left posterior elbow/olecranon bursa. Neurovascular intact distally with palpable radial pulse. No pain at shoulder or wrist. Const Vital Signs: 01/17/24 14:50 Temperature 97.4 F L Temperature Source Temporal Pulse Rate 85 Respiratory Rate 16 Blood Pressure 111/77 Blood Pressure Mean 88 Pulse Ox 94 Oxygen Delivery Method Room Air MDM MDM MDM Narrative Medical decision making narrative: In the differential diagnosis is tendinitis versus bursitis versus arthritis. I have low suspicion for fracture based in fact that she has no evidence of trauma in her history and physical. X-ray of the left elbow obtained per protocol and interpreted by myself independently shows no evidence of an acute fracture. I reviewed the radiology report which confirms my independent interpretation. She was given ibuprofen here, placed in an Frank wrap and given a sling for comfort. She will follow-up with her primary care provider. I also wrote her prescription for naproxen which she has had in the past. I feel she can be discharged to follow-up with her primary care provider, and orthopedics as needed. Return instructions to the emergency department were reviewed. Disposition is discharged home in stable condition. Radiography Diagnostic Testing: Clinical Impression(s) from Imaging Studies Elbow X-Ray 01/17/24 15:55 IMPRESSION: Normal x-ray examination of the elbow. Electronically Signed: Magdy Campbell MD at 16:53 EDT , Discharge Plan Triage Chief Complaint: Upper Extremity Injury ED Provider: Ignacio Vargas Dx/Rx/DC Orders Clinical Impression: Elbow pain, left, Arthritis of elbow, left Instructions: ED Bandage Elastic Wrap, ED Sprain, Elbow Prescriptions: New naproxen [Naprosyn] 500 mg tablet 500 mg PO BID PRN (Reason: pain) Qty: 20 0RF No Action montelukast 10 mg tablet 10 mg PO QHS Patient Comments: TAKE 1 TABLET BY MOUTH EVERYDAY AT BEDTIME escitalopram oxalate 20 mg tablet 20 mg PO DAILY Patient Comments: TAKE 1 TABLET BY MOUTH EVERY DAY albuterol sulfate 90 mcg/actuation HFA aerosol inhaler 2 puff INHALATION PRN PRN (Reason: Sob &/Or Wheezing) Patient Comments: INHALE 2 PUFFS BY MOUTH INSTRUCTED EVERY 4 HOURS NEEDED FOR WHEEZING/SHORTNESS OF BREATH. tamsulosin 0.4 mg capsule 0.4 mg PO DAILY Patient Comments: TAKE 1 CAPSULE BY MOUTH EVERYDAY AT BEDTIME omeprazole 40 mg capsule,delayed release(DR/EC) 40 mg PO DAILY Patient Comments: TAKE 1 CAPSULE BY MOUTH EVERY DAY levothyroxine 50 MCG tablet 50 mcg PO DAILY candesartan 16 MG tablet 16 mg PO DAILY cholecalciferol (vitamin D3) 2,000 UNIT tablet 2 tab PO DAILY topiramate 25 mg Tablet 25 mg PO QHS bupropion HCl 300 MG tablet extended release 24 hr 300 mg PO DAILY prednisone 20 mg tablet 60 mg PO DAILY Qty: 15 0RF naproxen 500 mg tablet 500 mg PO BID Qty: 14 0RF ondansetron 4 mg tablet,disintegrating 4 mg PO Q8H PRN PRN (Reason: Nausea) Qty: 10 0RF Primary Care Provider: Isaac Hsu Referrals: Isaac Hsu MD [Primary Care Provider] - 1 Week if not improving Alberto Guaman MD [Med Staff - Active Staff] - As Needed Print Language: Macedonian Disposition Disposition: Home, Self Care
[2024-01-17] MEDS: Ibuprofen 600 MG Tablet PO (17:27)
[2024-01-17 17:31] VITALS: BP 127/69; PULSE 72; RESP 15; TEMP 36.3; O2SAT 99
== END 2024-01-17 17:32 | disposition home or self-care (01) ==
PROVIDERS: Emergency Provider Emergency Medicine; PCP Family Medicine; Visit Provider Emergency Medicine
DX: M19.022 Primary osteoarthritis, left elbow (principal); I10 Essential (primary) hypertension; E03.9 Hypothyroidism, unspecified
CPT/HCPCS: 73080; 99283

== ENCOUNTER → 2024-01-23 | Outpatient (CLI) | payer MEDICARE, MEDICAID, SELFPAY ==
--- NOTE | 2024-01-23 12:21 | ECHOCS_ITS ---
Reason For Study: Chest Pain Procedure This was a 2D Doppler, Color Flow transthoracic echocardiogram. Contrast injection was performed. Exam performed in department. Left Ventricle Normal LV size. The estimated ejection fraction is 70 %. No evidence for diastolic dysfunction. No regional wall motion abnormalities noted. Right Ventricle Normal RV size. Normal systolic function. Atria Normal left atrium. Normal right atrium. No doppler evidence for ASD. Mitral Valve There is no mitral valve stenosis. No mitral valve insufficiency. Tricuspid Valve There is no tricuspid stenosis. Unable to estimate RV systolic pressure due to inadequate jet, pulmonary artery pressure probably normal. Aortic Valve Trisinus/trileaflet aortic valve. There is no aortic stenosis. No aortic valve insufficiency. Pulmonic Valve There is no pulmonic valvular stenosis. No pulmonic valve insufficiency. Great Vessels Normal aortic root. Pericardium/Pleural No pericardial effusion. Medication Diluted definity 2ml given slow IV push to enhance endocardial definition. MMode/2D Measurements & Calculations LVIDd: 4.2 cm IVSd: 0.88 cm Ao root diam: 3.1 cm LVIDs: 2.7 cm LVPWd: 0.82 cm RVDd: 2.8 cm FS: 36.6 % LAV(MOD-bp): 28.6 ml LVAd ap4: 30.9 cm2 SV(MOD-sp4): 68.7 ml LAV(MOD-bp) Indexed: 13.9 ml/m2 LVLd ap4: 8.0 cm LAV(MOD-sp2): 26.5 ml EDV(MOD-sp4): 97.7 ml LAV(MOD-sp4): 29.2 ml EDV(sp4-el): 101.4 ml LVAs ap4: 14.1 cm2 LVLs ap4: 5.8 cm ESV(MOD-sp4): 29.1 ml ESV(sp4-el): 29.3 ml EF(MOD-sp4): 70.3 % EF(sp4-el): 71.1 % SV(sp4-el): 72.0 ml LA A4 area: 13.2 cm2 LA dimension(2D): 3.4 cm RA A4 area: 9.1 cm2 TAPSE: 2.5 cm Time Measurements MV dec time: 0.25 sec Doppler Measurements & Calculations MV E max serafin: 106.2 cm/sec Lat Peak E' Serafin: 9.2 cm/sec Med Peak E' Serafin: 7.5 cm/sec MV A max serafin: 92.3 cm/sec E/E' lat: 11.6 E/E' med: 14.1 MV E/A: 1.2 MV dec slope: 416.8 cm/sec2 Ao V2 max: 168.3 cm/sec LV V1 max: 151.4 cm/sec Ao max P.3 mmHg LV V1 max P.2 mmHg Ao V2 mean: 124.4 cm/sec LV V1 mean P.2 mmHg Ao mean P.7 mmHg LV V1 mean: 109.3 cm/sec Ao V2 VTI: 34.1 cm LV V1 VTI: 30.8 cm AV (velocity ratio): 0.90 PA V2 max: 95.0 cm/sec ECHO/Echo Complete W/ Contrast Interpretation Summary The estimated ejection fraction is 70 %. No evidence for diastolic dysfunction. Ordering Physician: Isaac Hsu Referring Physician: Isaac Hsu Performed By: Sis Alex RDCS, RVT
--- NOTE | 2024-01-23 14:52 | STRESSREP ---
Stress Test Report Date: 01/23/2024 Procedure: Exercise tolerance test Indications: Chest pain Consent: Per the patient Procedure: The patient exercised on a Geo protocol for 6 minutes and 30 seconds achieving a peak heart rate of 133 bpm (76% predicted maximal heart rate) with a peak blood pressure 162/78 mmHg and a peak MET capacity of approximately 8.5 MET's. The baseline ECG demonstrated normal sinus rhythm. The peak exercise ECG demonstrated no significant ischemic changes. [There were no cardiac dysrhythmias pretest, during exercise, or recovery]. The functional capacity was considered normal for age. The patient had no complaint of chest discomfort during exercise or recovery. The examination was discontinued secondary to dyspnea, fatigue. Impression: 1. Inability to reach 85% of maximal age-predicted heart rate decreases the sensitivity of this test to detect ischemia 2. Stress test is negative for exercise-induced chest pain. 3. Stress test test is negative for exercise-induced EKG changes of ischemia. 4. Functional capacity is normal for age This note was generated with [employer] software. It may contain incorrect words, spelling, and punctuation that were not noted in checking the note before signing.
== END | disposition home or self-care (01) ==
LOC: CVS 12:21
PROVIDERS: PCP Family Medicine; Referring Provider Family Medicine; Visit Provider Family Medicine
DX: R07.89 Other chest pain (principal)
CPT/HCPCS: 93017; 93306; Q9957; A4216; C8929

== ENCOUNTER 2025-02-01 20:00 | Emergency (ER) | payer MEDICARE, MEDICAID, SELFPAY ==
[2025-02-01 20:01] VITALS: BP 142/82; PULSE 90; RESP 16; TEMP 37.3; O2SAT 96; BMI 34.0
--- NOTE | 2025-02-01 20:25 | CT_ITS ---
PROCEDURE: ABDOMEN/PELVIS WITHOUT CONT 02/01/2025 REASON FOR EXAM: KIDNEY STONE TECHNIQUE: ABDOMEN/PELVIS WITHOUT CONT Noncontrast technique limits evaluation of the abdominal and pelvic viscera. Coronal and Sagittal reconstruction series were provided. One or more dose reduction techniques were used (e.g., Automated exposure control, adjustment of the mA and/or kV according to patient size, use of iterative reconstruction technique). RADIATION DOSE SUMMARY: CTDlvol: 17 mGy DLP: 878 mGycm COMPARISON: 01/25/21 FINDINGS: Clear lung bases. Heart size within normal limits. Upper abdominal solid organs show no acute findings. No renal stones. No hydronephrosis or ureteral stone. Normal bladder. Possible fibroid uterus. Status post tubal ligation. Normal ovaries. No retroperitoneal or pelvic adenopathy. No free air. Nondistended bowel. Normal appendix. No acute large bowel findings. Lumbar spine degeneration. No acute abdominal wall findings. CT/Abdomen/Pelvis without Cont IMPRESSION: No acute findings Reading Location: [facility]
[2025-02-01 20:46] LABS: Hematocrit 38.1 % (37-47); Hemoglobin 12.9 g/dL (12.0-15.0); Immature Granulocytes Count 0.050 X10^3/uL (0.0-0.0); Mean Corp Hgb Conc 33.9 g/dL (32-36); Mean Corpuscular Volume 83.7 fL (81-99); Mean Platelet Vol. 9.5 fl (6.2-12.0); Mucous, Urine 0 SEEN /hpf (<or=2+); NRBC Flagged by Analyzer 0 % (0-5); Platelet Count 479 K/mm3 (150-450); RBC Distribution Width CV 12.8 % (11.6-14.6); RBC Distribution Width SD 39.0 fl (35.1-43.9); Red Blood Cells-Urine 0 SEEN /hpf (0-5); Red Blood Count 4.55 M/mm3 (4.2-5.4); White Blood Count 11.6 K/mm3 (4.4-11.0)
[2025-02-01 20:47] LABS: Color, Urine Yellow (Yellow); Glucose, Dipstick Normal (Normal); Ketone-Dipstick Negative (Negative); Leukocyte Esterase-Dipstick 25 /ul (Negative); Nitrite-Dipstick Negative (Negative); Occult Blood-Urine 50 /ul (Negative); Protein-Dipstick 15 mg/dl (Negative); Specific Gravity, Urine 1.015 (1.002-1.030); Urine Bilirubin Dipstick Negative (Negative)
[2025-02-01 20:53] LABS: Squamous Epithelial Cells - UA 0-5 SEEN /hpf (5-10)
[2025-02-01 21:03] VITALS: BP 117/67; PULSE 72; RESP 18; TEMP 37.3; O2SAT 100
--- OUTSIDE RECORDS SUMMARY | 2025-02-01 21:08 | XMS RPT_ITS | CCD ---
Author Organization [facility] Care Team Providers Care Assayer Helper Name Role Phone Davis Wheeler Unavailable Unavailable Davis Wheeler Unavailable Unavailable GREGORY GALINDO Attending Unavailable GREGORY GALINDO Primary Care Unavailable GREGORY GALINDO Admitting Unavailable GANTA, LUCILLE PATTIE Referring Unavailable GANTA, LUCILLE PATTIE Consulting Unavailable PROVIDER, UNKNOWN Consulting Unavailable Leny Hsu MD Primary Care Provider Lucille Pacheco MD Primary Care Provider Leny Hsu MD Primary Care Provider Leny Hsu MD Primary Care Provider Leny Hsu MD Primary Care Provider LENY HSU Primary Care Unavailab NICOLE Gayle Referring Unavailable LENY HUS Primary Care Unavailab NICOLE Gayle Referring Unavailable Leny Hsu MD Primary Care Provider Podlogar MAMMOGRAPHY TECHNICIAN.Lydia GARVIN Unavailable Knoble MAMMOGRAPHY TECHNICIAN.Bradley GARVIN Unavailable Knoble MAMMOGRAPHY TECHNICIAN.Bradley GARVIN Unavailable Knoble MAMMOGRAPHY TECHNICIAN.Bradley GARVIN Unavailable LENY HSU Attending Unavailab LENY Cisneros Primary Care Unavailab LENY Cisneros Attending Unavailab LENY Cisneros Primary Care Unavailab LENY Cisneros Attending Unavailab LENY Cisneros Primary Care Unavailab LENY Cisneros Referring Unavailab LENY Cisneros Primary Care Unavailab LENY Cisneros Primary Care Unavailab JORDIN Hogan Referring Unavailable LENY HSU Primary Care Unavailab JORDIN Hogan Referring Unavailable LENY HSU Primary Care Unavailab le LENY HSU Referring Unavailab LENY Cisneros Attending Unavailab LENY Cisneros Primary Care Unavailab LENY Cisneros Primary Care Unavailab ELLA Hanson Attending Unavailable LENY HSU Primary Care Unavailab LENY Cisneros Referring Unavailab LENY Cisneros Attending Unavailab LENY Cisneros Primary Care Unavailab le LENY HSU Primary Care Unavailab EMA Rodriguez Attending Unavailable LENY HSU Primary Care Unavailab le KIRK CAST Referring Unavailable KIRK CAST Attending Unavailable LENY HSU Primary Care Unavailab LENY Cisneros Referring Unavailab LENY Cisneros Referring Unavailab LENY Cisneros Primary Care Unavailab LENY Cisneros Attending Unavailab LENY Cisneros Primary Care Unavailab LENY Cisneros Referring Unavailab LENY Cisneros Primary Care Unavailab le LENY HSU Referring Unavailab le EFRAIN ROLLINS Attending Unavailable LENY HSU Primary Care Unavailab LENY Cisneros Primary Care Unavailab JORDIN Hogan Referring Unavailable KIRK CAST Attending Unavailable LENY HSU Primary Care Unavailab KEV Hall Attending Unavailable SELF Referring Unavailable LENY HSU Primary Care Unavailab KRISTY Montaño Attending Unavailable LENY HSU Primary Care Unavailab LENY Cisneros Attending Unavailab le Benedict MAMMOGRAPHY TECHNICIAN.BHARATHI, Bradley Unavailable Benedict GONZALEZN.Bradley GARVIN Unavailable Isaac Hsu Primary Care Unavailable Kain Ivy Attending Unavailable Allergies Allergy Classification Reported Allergen(s) Allergy Type Date of Onset Reaction(s) Facility Amphetamine (2 sources) Amphetamine Drug Allergy 12-14-19 17 Itching [facility] Amphetamine aspartate / Amphetamine Sulfate / Dextroamphetamine saccharate / Dextroamphetamine Sulfate (2 sources) Amphetamine aspartate / Amphetamine Sulfate / Dextroamphetamine saccharate / Dextroamphetamine Sulfate Drug Allergy 02-23-20 15 Itching [facility] Work Phone: Bee pollen (2 sources) Bee pollen Drug Allergy 01-24-20 19 Anaphylaxis [facility] Serotonin-1b and Serotonin-1d Receptor Agonists (2 sources) SUMAtriptan Drug Allergy 01-12-20 15 Other: See Comments [facility] (1 source) SUMAtriptan Drug Allergy [facility] Repository (20 sources) Amphetamine aspartate / Amphetamine Sulfate / Dextroamphetamine saccharate / Dextroamphetamine Sulfate; Translations: [DEXTROAMPHETAMINE-A MPHETAMINE] Drug Allergy 02-23-20 15 Itching [facility] Work Phone: (20 sources) Bee pollen; Translations: [BEE POLLEN] Drug Allergy 01-24-20 19 Anaphylaxis [facility] (20 sources) SUMAtriptan; Translations: [SUMATRIPTAN] Drug Allergy 01-12-20 15 Other: See Comments [facility] Work Phone: (5 sources) Amphetamine; Translations: [amphetamine aspartate] Drug Allergy 05-19-20 21 Itching [facility] (5 sources) Amphetamine; Translations: [amphetamine sulfate] Drug Allergy 05-19-20 21 Itching [facility] (5 sources) Dextroamphetamine; Translations: [dextroamphetamine saccharate] Drug Allergy 05-19-20 21 Itching [facility] (5 sources) Dextroamphetamine; Translations: [dextroamphetamine sulfate] Drug Allergy 05-19-20 21 Itching [facility] (5 sources) SUMAtriptan; Translations: [sumatriptan succinate] Drug Allergy 05-19-20 21 Chest tightness [facility] (4 sources) venom-honey bee Allergy to substance 05-19-20 21 Anaphylaxis [facility] (20 sources) Amphetamine; Translations: [AMPHETAMINE] Drug Allergy 12-14-19 17 Itching [facility] (1 source) SUMAtriptan Drug Allergy 02-02-20 25 [facility] Repository (1 source) venom-honey bee Drug allergy (disorder) 02-02-20 [facility] Repository Medications Current Medications Medication Drug Class(es) Dates Sig (Normalized) Sig (Original) [id number] 200 actuat albuterol 0.09 mg/actuat metered dose inhaler (20 sources) beta2-Adrenergic Agonist Start: 08-17-2021 End: 06-25-2024 take 2 puff(s) by inhalation every four hours as needed for wheezing albuterol HFA (VENTOLIN HFA) 90 mcg/actuation inhaler Inhale 2 Puffs as instructed every 4 hours as needed for wheezing/shortnes s of breath. 18 g 4 06/25/2024 Active Start: 12-17-2019 Albuterol Sulf ate Active 2 PUFF INHALATION NEEDED December 17, 2019 12:00am Comment on above: Inhale 2 Puffs as in structed every 4 hours as needed for wheezing/shortness of breath. 24 hr buPROPion hydrochloride 300 mg extended release oral tablet (20 sources) Aminoketone Start: 020 End: 025 take 1 tablet by mouth once daily buPROPion XL (WELLBUTRIN XL) 300 mg 24 hr tablet Indications: Depression, unspecified depression type Take 1 tablet by mouth once daily. 90 tablet 1 10/16/2024 04/14/2025 Active Start: 12-13-2016 End: 12-17-2019 take 150 mg by mouth once daily Bupropion Hcl Discontinued 150 MG PO DAILY December 13, 2016 12:00am December 17, 2019 11:51am Comment on above: Take 1 tablet by [facility] once daily. cholecalciferol 0.05 mg oral tablet (20 sources) Vitamin D Start: 0 End: take 1 capsule by mouth once daily cholecalciferol, vitamin D3, 100 mcg (4,000 unit) cap Take 1 capsule by mouth once daily. 90 capsule 3 10/19/2021 03/30/2022 Discontinued Start: 01-28-2019 End: 09-17-2024 take 2 tablets by mouth once daily VITAMIN D-3 50 mcg (2,000 unit) tablet TAKE 2 TABLETS (4000 UNITS) BY MOUTH ONCE DAILY 180 tablet 3 09/17/2024 Active Comment on above: Take 1 capsule by mo [facility] once daily. TAKE 2 TABLETS (4000 UNITS) BY MOUTH ONCE DAILY clotrimazole 10 mg/ml topical cream (20 sources) Azole Antifungal Start: End: clotrimazole (LOTRIMIN) 1 % cream Indications: Tinea corporis Apply BID to rash until rash goes away, and then continue for 1 more week. 45 g 1 09/02/2024 Active Comment on above: Apply BID to rash un til rash goes away, and then continue for 1 more week. enteric contrast (will be provided with radiology test) (1 source) Start: End: enteric contrast (will be provided with radiology test) Indications: Hiatal hernia with GERD without esophagitis , Bilateral upper abdominal pain , Abdominal distension (gaseous) , Nausea For CT ABD/PEL W IVCON Routine order Administer, As Directed One Time Only, via Oral, Rectal, both Oral and Rectal, Enteric Tube, Stoma or Indwelling Catheter, Enteric Contrast as designated per enteric contrast guidelines 1 Each 0 04/27/2022 04/28/2022 Active Comment on above: For CT ABD/PEL W IVC ON Routine order Administer, As Directed One Time Only, via Oral, Rectal, both Oral and Rectal, Enteric Tube, Stoma or Indwelling Catheter, Enteric Contrast as designated per enteric contrast guidelines escitalopram 20 mg oral tablet (4 sources) Serotonin Reuptake Inhibitor Start: take 20 mg by mouth once daily Escitalopram Oxalate Active 20 MG PO DAILY December 17, 2019 12:00am famotidine 20 mg oral tablet (20 sources) Histamine-2 Receptor Antagonist Start: End: take 1 tablet by mouth at bedtime as needed famotidine (PEPCID) 20 mg tablet Indications: Gastroesophageal reflux disease without esophagitis Take 1 tablet by mouth at bedtime as needed. 90 tablet 1 09/02/2024 03/01/2025 Active fluticasone propionate 0.05 mg/actuat metered dose nasal spray (20 sources) Corticosteroid Start: take 2 spray(s) by mouth once daily fluticasone (FLONASE) 50 mcg/actuation nasal spray Indications: Acute serous otitis media of left ear, recurrence not specified Use 2 Sprays in each nostril once daily. Rinse mouth after use. 1 Each 1 01/02/2024 Active Start: 08-17-2021 End: 08-30-2022 take 1 spray(s) by mouth twice daily fluticasone (FLONASE) 50 mcg/actuation nasal spray Use 1 Mobile in each nostril twice daily. Rinse mouth after use. 16 g 1 03/14/2022 08/30/2022 Discontinued (Discontinued by Patient) Comment on above: Use 1 Mobile in each nostril twice daily. Rinse mouth after use. folic acid 1 mg oral tablet (20 sources) Start: 09-19-19 End: 10-17-19 take 1 tablet by mouth once daily folic acid 1 mg tablet Take 1 tablet by mouth once daily. 90 tablet 1 10/16/2024 Active Comment on above: Take 1 tablet by kristina th once daily. iv contrast (will be provided with radiology test) (1 source) Start: 04-27-20 End: 04-28-20 iv contrast (will be provided with radiology test) Indications: Hiatal hernia with GERD without esophagitis , Bilateral upper abdominal pain , Abdominal distension (gaseous) , Nausea CT ABD/PEL -Inject, intravenously, once for 1 dose.No IV access, insert saline lock prior to the beginning of sedation, infusion, injection of imaging exam. Discontinue saline lock post exam. If Pt. has a central line or IVAD, may access for administration according to line specific nursing protocol. Once exam is complete flush line and de-access according to line specific nursing protocol in the CT contrast administration guidelines link. 1 Each 0 04/27/2022 04/28/2022 Active Comment on above: CT ABD/PEL -Inject, intravenously, once for 1 dose.No IV access, insert saline lock prior to the beginning of sedation, infusion, injection of imaging exam. Discontinue saline lock post exam. If Pt. has a central line or IVAD, may access for administration according to line specific nursing protocol. Once exam is complete flush line and de-access according to line specific nursing protocol in the CT contrast administration guidelines link. montelukast 10 mg oral tablet (4 sources) Leukotriene Receptor Antagonist Start: 12-17-19 take 10 mg by mouth at bedtime Montelukast Active 10 MG PO AT BEDTIME December 17, 2019 12:00am naproxen 500 mg oral tablet (6 sources) Nonsteroidal Anti-inflammatory Drug Start: 02-04-20 End: 02-19-20 take 1 tablet by mouth every twelve hours as needed naproxen (NAPROSYN) 500 mg tablet Take 1 tablet by mouth two times a day as needed for up to 15 days. Take with food. 30 tablet 0 02/04/2024 02/19/2024 Active Start: 08-13-2022 take 500 mg by mouth twice janae ly Naproxen Active 500 MG PO TWICE A DAY August 13, 2022 1:00am naratriptan 2.5 mg oral tablet (20 sources) Serotonin-1b and Serotonin-1d Receptor Agonist Start: 06-05-2023 End: 09-02-2024 take 1 mg by mouth every twenty-four hours naratriptan (AMERGE) 2.5 mg tablet Indications: Migraine without aura and without status migrainosus, not intractable Take 1 tablet by mouth as directed. at the onset of headache; if headache returns or does not fully resolve, the dose may be repeated after 4 hours; do not exceed five(5) mg in 24 hours. NO more than 10 doses in a month. 10 tablet 1 09/02/2024 Active Comment on above: Take 1 tablet (2.5 m g) by mouth as directed. at the onset of headache; if headache returns or does not fully resolve, the dose may be repeated after 4 hours; do not exceed five(5) mg in 24 hours. NO more than 10 doses in a month. omeprazole 40 mg delayed release oral capsule (20 sources) Proton Pump Inhibitor Start: 11-19-2024 End: 06-11-2025 take 1 capsule by mouth twice daily omeprazole (PRILOSEC) 40 mg capsule Take 1 capsule by mouth two times a day. 180 capsule 1 12/13/2024 06/11/2025 Active Start: 07-12-2023 End: 05-10-2025 take 1 capsule by mouth once daily omeprazole (PRILOSEC) 40 mg capsule Take 1 capsule by mouth once daily. 90 capsule 08/20/2024 11/11/2024 Discontinued Start: 03-28-2021 End: 09-10-2022 take 1 capsule by mouth twice daily omeprazole (PRILOSEC) 40 mg capsule Indications: Gastroesophageal reflux disease with esophagitis without hemorrhage Take 1 capsule by mouth twice daily. 60 capsule 5 03/28/2021 03/14/2022 Discontinued Start: 02-10-2020 take 40 mg by mouth once daily Omeprazole Active 40 MG PO DAILY February 10, 2020 12:00am Start: 03-12-2016 omeprazole (MA ILOSEC) 40 mg capsule Take 20 mg by mouth. 0 03/12/2016 Active Comment on above: Take 1 capsule by mo ut twice daily. Take 20 mg by mouth. Take 1 capsule by mo uth once daily. ondansetron 4 mg disintegrating oral tablet (3 sources) Serotonin-3 Receptor Antagonist Start: 3 take 4 mg by mouth every eight hours as needed Ondansetron Active 4 MG PO EVERY 8 HOURS NEEDED October 14, 2022 12:00am Start: 02-22-2022 End: 03-24-2022 take 1 tablet by mouth every six hours as needed ondansetron orally disintegrating (ZOFRAN ODT) 4 mg disintegrating tablet Take 1 tablet by mouth every 6 hours as needed for nausea/vomiting. 30 tablet 0 02/22/2022 03/24/2022 Active Comment on above: Take 1 tablet by [facility] every 6 hours as needed for nausea/vomiting. predniSONE 20 mg oral tablet (3 sources) Start: 03-01-20 take 60 mg by mouth once daily Prednisone Active 60 MG PO DAILY March 01, 2022 12:00am topiramate 25 mg oral capsule (20 sources) Start: 08-15-19 End: 04-14-20 take 2 capsules by mouth twice daily topiramate (TOPAMAX) 25 mg capsule Indications: Migraine without aura and without status migrainosus, not intractable Take 2 capsules by mouth two times a day. 360 capsule 1 10/16/2024 04/14/2025 Active Start: 12-23-2019 take 25 mg by mouth at bedtime Topiramate Active 25 MG PO AT BEDTIME December 23, 2019 12:00am Comment on above: Take 50 mg PO in the morning and 25 mg at night. Take 2 capsules by m outh twice daily. Take 2 capsules by m outh two times a day. vitamin b12 1 mg oral tablet (20 sources) Vitamin B12 Start: 09-19-2023 End: 08-27-2024 take 1 tablet by mouth once daily cyanocobalamin (VITAMIN B-12) 1,000 mcg tab TAKE 1 TABLET BY MOUTH DAILY 28 tablet 11 08/27/2024 Active Comment on above: Take 1 tablet by kristina th once daily. Completed/Discontinued Medications Medication Drug Class(es) Dates Sig (Normalized) Sig (Original) Benzocaine (1 source) Standardized Chemical Allergen Start: 10-24-2024 End: 10-24-2024 1 spray, TOPICAL, DIRECTED, Starting on Sun10/24/24 at 1200, Until Sun10/24/24 at 1559, Dosing as directed for intraprocedural use only - Pharmaceutical Waste: Aerosol -, Intraprocedure betamethasone 3 mg/ml / betamethasone acetate 3 mg/ml injectable suspension (1 source) Corticosteroid Start: 01-12-2022 End: 01-12-2022 betamethasone acetate-betamethason e sodium phosphate 6 mg injection (CELESTONE) Start: 01-12-2022 End: 01-12-2022 betamethasone acetate-betame thasone sodium phosphate 6 mg injection (CELESTONE) bisacodyl 5 mg delayed release oral tablet (19 sources) Stimulant Laxative Start: 10-19-2021 End: 03-30-2022 Bisacodyl (DULCOLAX) 5 mg tab Indications: Screening for malignant neoplasm of the rectum , Screening for colon cancer Use as directed for Miralax / Gatorade Bowel Prep Kit 4 tablet 0 10/19/2021 03/30/2022 Discontinued Comment on above: Use as directed for Miralax / Gatorade Bowel Prep Kit Blood-Glucose Meter (FREESTYLE LITE METER) monitoring kit (20 sources) Start: 03-29-2015 End: 03-30-2022 Blood-Glucose Meter (FREESTYLE LITE METER) monitoring kit Indications: Prediabetes Freestyle LITE Meter Kit - 1 Each 0 03/29/2015 03/30/2022 Discontinued Start: 03-29-2015 Blood-Glucose Meter (FREESTYLE LITE METER) monitoring kit Indications: Prediabetes Freestyle LITE Meter Kit - 1 Each 0 03/29/2015 Active Comment on above: Freestyle LITE Meter Kit - busPIRone hydrochloride 5 mg oral tablet (20 sources) Start: End: take 1 tablet by mouth twice daily busPIRone (BUSPAR) 5 mg tablet Take 1 tablet by mouth two times a day. 180 tablet 08/20/2024 11/11/2024 Discontinued Comment on above: Take 1 tablet by kristina twice daily. TAKE 1 TABLET BY KRISTINA TH TWICE A DAY Take 1 tablet by kristina th two times a day. calcium chloride 0.0014 meq/ml / potassium chloride 0.004 meq/ml / sodium chloride 0.103 meq/ml / sodium lactate 0.028 meq/ml injectable solution (1 source) Start: End: take 30 mL intravenously every hour 30 mL/hr, INTRAVENOUS, CONTINUOUS, Starting on Sun10/24/24 at 1130, Until Sun10/24/24 at 1212, Preprocedure candesartan cilexetil 4 mg oral tablet (6 sources) Angiotensin 2 Receptor Emil Start: End: take 1 tablet by mouth once daily candesartan (ATACAND) 4 mg tablet Indications: Essential hypertension with goal blood pressure less than 140/90 Take 1 tablet by mouth once daily. 0 09/19/2021 Active Start: 12-12-2015 take 16 mg by mouth once daily Candesartan Active 16 MG PO DAILY December 12, 2015 12:00am Comment on above: Take 1 tablet by kristina once daily. celecoxib 100 mg oral capsule (15 sources) Nonsteroidal Anti-inflammatory Drug Start: take 1 capsule by mouth twice daily celecoxib (CELEBREX) 100 mg capsule Indications: Acute pain of right shoulder Take 1 capsule by mouth twice daily. 60 capsule 1 10/19/2021 Active Comment on above: Take 1 capsule by mo [facility] twice daily. citalopram 40 mg oral tablet (4 sources) Serotonin Reuptake Inhibitor Start: End: take 40 mg by mouth once daily Citalopram Discontinued 40 MG PO DAILY December 12, 2015 12:00am December 17, 2019 11:39am dicyclomine hydrochloride 10 mg oral capsule (9 sources) Anticholinergic Start: End: take 1 capsule by mouth three times daily as needed for pain dicyclomine (BENTYL) 10 mg capsule Indications: Irritable bowel syndrome with both constipation and diarrhea Take 1 capsule by mouth three times daily as needed (for abdominal pain). 30 capsule 2 03/30/2022 08/30/2022 Discontinued (Discontinued by Patient) Comment on above: Take 1 capsule by mo [facility] three times daily as needed (for abdominal pain). diphenhydrAMINE (1 source) Histamine-1 Receptor Antagonist Start: End: 12.5-50 mg, INTRAVENOUS, DIRECTED, Starting on Sun10/24/24 at 1200, Until Sun10/24/24 at 1559, DOSING DIRECTED BY PHYSICIAN FOR PROCEDURAL SEDATION ONLY, Intraprocedure esomeprazole 40 mg delayed release oral capsule (4 sources) Proton Pump Inhibitor Start: 019 End: take 40 mg by mouth twice daily Esomeprazole Magnesium Discontinued 40 MG PO TWICE A DAY January 28, 2019 12:00am February 10, 2020 1:37pm etodolac 400 mg oral tablet (10 sources) Nonsteroidal Anti-inflammatory Drug Start: 022 End: take 1 tablet by mouth twice daily etodolac (LODINE) 400 mg tablet TAKE 1 TABLET BY MOUTH TWICE A DAY 60 tablet 0 03/07/2022 08/15/2022 Discontinued (Course of therapy completed) Comment on above: TAKE 1 TABLET BY KRISTINA TH TWICE A DAY Take 1 tablet by kristina th twice daily. 1 ml fentaNYL 0.05 mg/ml injection (1 source) Opioid Agonist Start: End: 025 25-100 mcg, INTRAVENOUS, DIRECTED, Starting on Sun10/24/24 at 1200, Until Sun10/24/24 at 1559, DOSING DIRECTED BY PHYSICIAN FOR PROCEDURAL SEDATION ONLY, Intraprocedure ferrous sulfate 325 mg oral tablet (15 sources) Start: 024 End: take 1 tablet by mouth once daily ferrous sulfate 325 mg (65 mg iron) tablet Indications: Iron deficiency Take 1 tablet by mouth once daily. 90 tablet 07/23/2024 08/07/2024 Discontinued (Course of therapy completed) Gatorade Sports Drink (19 sources) Start: End: Gatorade Sports Drink Indications: Screening for malignant neoplasm of the rectum , Screening for colon cancer Use as directed for Miralax / Gatorade Bowel Prep Kit 0 10/19/2021 03/30/2022 Discontinued Start: 10-19-2021 Gatorade Sport s Drink Indications: Screening for malignant neoplasm of the rectum , Screening for colon cancer Use as directed for Miralax / Gatorade Bowel Prep Kit 0 10/19/2021 Active Comment on above: Use as directed for Miralax / Gatorade Bowel Prep Kit hydroCHLOROthiazide 25 mg oral tablet (4 sources) Thiazide Diuretic Start: 2015 End: 2019 take 25 mg by mouth once daily Hydrochlorothiazide Discontinued 25 MG PO DAILY December 12, 2015 12:00am December 17, 2019 11:51am levothyroxine sodium 0.075 mg oral tablet (20 sources) l-Thyroxine Start: 2020 End: 2024 take 1 tablet by mouth once daily for thyroid dysfunction levothyroxine (SYNTHROID) 75 mcg tablet Take 1 tablet by mouth once daily. Take on empty stomach. For Thyroid 90 tablet 08/20/2024 11/11/2024 Discontinued Start: 12-12-2015 take 50 ug by mouth once daily Levothyroxine Active 50 MCG PO DAILY December 12, 2015 12:00am Comment on above: Take 1 tablet by kristina th once daily. Take on empty stomach. For Thyroid 10 ml lidocaine hydrochloride 10 mg/ml injection (1 source) Antiarrhythmic, Amide Local Anesthetic Start: 01-12-2022 End: 01-12-2022 lidocaine (PF) 10 mg/mL (1 %) 4 mL injection (XYLOCAINE) Start: 01-12-2022 End: 01-12-2022 lidocaine (PF) 10 mg/mL (1 % ) 4 mL injection (XYLOCAINE) loratadine 10 mg oral tablet (20 sources) Start: 04-03-2023 End: 07-07-2025 take 1 tablet by mouth once daily loratadine (CLARITIN) 10 mg tablet Indications: Seasonal allergic rhinitis, unspecified trigger Take 1 tablet by mouth once daily. 90 tablet 1 07/23/2024 01/08/2025 Discontinued Comment on above: Take 1 tablet by kristina th once daily. meloxicam 15 mg oral tablet (20 sources) Nonsteroidal Anti-inflammatory Drug Start: 08-15-2022 End: 01-14-2024 take 1 tablet by mouth once daily at mealtime meloxicam (MOBIC) 15 mg tablet Indications: Sprain of ligament of right ankle, subsequent encounter Take 1 tablet by mouth once daily. With food. 30 tablet 08/15/2022 01/14/2024 Discontinued (Course of therapy completed) Start: 09-26-2021 take 1 tablet by kristina th once daily at mealtime meloxicam (MOBIC) 15 mg tablet Take 1 tablet by mouth once daily. With food. 30 tablet 1 09/26/2021 Active Comment on above: Take 1 tablet by kristina th once daily. With food. metroNIDAZOLE 500 mg oral tablet (2 sources) Nitroimidazole Antimicrobial Start: End: take 1 tablet by mouth twice daily metroNIDAZOLE (FLAGYL) 500 mg tablet Take 1 tablet by mouth two times a day for 7 days. 14 tablet 11/11/2024 11/18/2024 5 ml midazolam 1 mg/ml injection (1 source) Benzodiazepine Start: End: 1-5 mg, INTRAVENOUS, DIRECTED, Starting on Sun10/24/24 at 1200, Until Sun10/24/24 at 1559, DOSING DIRECTED BY PHYSICIAN FOR PROCEDURAL SEDATION ONLY, Intraprocedure nitrofurantoin, macrocrystals 25 mg / nitrofurantoin, monohydrate 75 mg oral capsule (4 sources) Nitrofuran Antibacterial Start: End: take 1 capsule by mouth every twelve hours at mealtime Nitrofurantoin Monohyd/M-Cryst (Macrobid) 100 mg capsule Discontinued 100 MG PO Q12H 10 5 January 22, 2021 12:00am January 27, 2021 12:01am must administer with a meal/food nystatin [id number] unt/ml oral suspension (4 sources) Polyene Antifungal Start: End: Nystatin Discontinued 5 ML PO THREE TIMES A DAY 450 30 May 19, 2021 1:00am 2021 1:01am administer 1/2 of dose in each side of the mouth pantoprazole 40 mg delayed release oral tablet (7 sources) Proton Pump Inhibitor Start: End: take 1 tablet by mouth twice daily pantoprazole DR (PROTONIX) 40 mg tablet Indications: Hiatal hernia with GERD without esophagitis TAKE 1 TABLET BY MOUTH TWICE A DAY 60 tablet 2 05/31/2022 08/15/2022 Discontinued (Discontinued by Patient) Comment on above: Take 1 tablet by kristina twice daily. TAKE 1 TABLET BY KRISTINA TWICE A DAY phenylephrine hydrochloride 25 mg/ml ophthalmic solution (3 sources) alpha-1 Adrenergic Agonist Start: End: PHENYLephrine 2.5 % 1 Drop (AK-DILATE, MARISELA-SYNEPHRINE) Start: 04-24-2024 End: 04-24-2024 1 Drop, BOTH EYES, ONCE, 1 d ose, On Mary 04/24/24 at 0900, FOR OPHTHALMIC USE ONLY PROTECT FROM LIGHT Start: 06-15-2023 End: 06-15-2023 PHENYLephrine 2.5 % 1 Drop ( AK-DILATE, MARISELA-SYNEPHRINE) polyethylene glycol 3350 74758 mg powder for oral solution (20 sources) Osmotic Laxative Start: 04-27-2022 End: 08-30-2022 polyethylene glycol 3350 (MIRALAX) 17 gram/dose powder Indications: Irritable bowel syndrome with both constipation and diarrhea Take 17 g by mouth once daily. Dissolve dose in 4 - 8 ounces of liquid and take as directed. 595 g 2 04/27/2022 08/30/2022 Discontinued (Discontinued by Patient) Start: 10-19-2021 End: 03-30-2022 polyethylene glycol 3350 ([place] RALAX, GLYCOLAX) 17 gram/dose powder Indications: Screening for malignant neoplasm of the rectum , Screening for colon cancer Use as directed for Miralax / Gatorade Bowel Prep Kit 238 g 0 10/19/2021 03/30/2022 Discontinued Comment on above: Use as directed for Miralax / Gatorade Bowel Prep Kit Take 17 g by mouth o nce daily. Dissolve dose in 4 - 8 ounces of liquid and take as directed. proparacaine hydrochloride 5 mg/ml ophthalmic solution (1 source) Local Anesthetic Start: 3 End: 3 proparacaine 0.5 % 1 Drop (ALCAINE) rizatriptan 10 mg oral tablet (20 sources) Serotonin-1b and Serotonin-1d Receptor Agonist Start: 2 End: 3 rizatriptan (MAXALT) 10 mg tablet Indications: Migraine without aura and without status migrainosus, not intractable Take one pill at the onset of headache, repeat in a couple hours if not better, no more than 2 tablets a day and no more than 4 tabs a week 9 tablet 1 08/15/2022 02/06/2023 Discontinued Comment on above: Take one pill at the onset of headache, repeat in a couple hours if not better, no more than 2 tablets a day and no more than 4 tabs a week sucralfate 100 mg/ml oral suspension (20 sources) Aluminum Complex Start: 4 End: 5 take 10 mL by mouth twice daily sucralfate (CARAFATE) 100 mg/mL suspension Indications: Hiatal hernia with GERD without esophagitis , Esophageal dysphagia TAKE 10ML BY MOUTH TWICE A DAY 828 mL 03/11/2024 09/02/2024 Discontinued (Course of therapy completed) Start: 04-18-2023 End: 04-18-2023 take 1 tablet by mouth twice daily sucralfate (CARAFATE) 1 gram tablet Indications: Hiatal hernia with GERD without esophagitis , Esophageal dysphagia Take 1 tablet by mouth two times a day. 120 tablet 0 04/18/2023 04/18/2023 Discontinued (Changing Therapy/Dosage Form) Start: 04-18-2023 End: 06-17-2023 take 10 mL by mouth twice daily sucralfate (CARAFATE) 100 mg/mL suspension Indications: Hiatal hernia with GERD without esophagitis , Esophageal dysphagia TAKE 10ML BY MOUTH TWICE A DAY 420 mL 2 05/29/2023 Active Start: 02-10-2020 End: 03-11-2020 take 1 tablet by mouth at bedtime Sucralfate (Carafate) 1 gram tablet Discontinued 1 GM PO before meals and at bedtime 120 30 February 10, 2020 12:00am March 11, 2020 12:02am Comment on above: Take 10 mL by mouth two times a day. Take 1 tablet by kristina th two times a day. TAKE 10ML BY MOUTH T WICE A DAY tamsulosin hydrochloride 0.4 mg oral capsule (20 sources) alpha-Adrenergic Emil Start: 12-17-19 End: 12-14-19 take 1 capsule by mouth once daily at bedtime tamsulosin (FLOMAX) 0.4 mg Indications: Urinary retention Take 1 capsule by mouth daily at bedtime. 90 capsule 3 03/14/2022 12/13/2022 Discontinued Comment on above: Take 1 capsule by mo [facility] daily at bedtime. tropicamide 10 mg/ml ophthalmic solution (3 sources) Anticholinergic Start: 04-24-20 End: 04-24-20 tropicamide 1 % 1 Drop (MYDRIACYL) Start: 04-24-2024 End: 04-24-2024 1 Drop, BOTH EYES, ONCE, 1 d ose, On Mary 04/24/24 at 0900, FOR THE EYE Start: 06-15-2023 End: 06-15-2023 tropicamide 1 % 1 Drop (MYDR IACYL) venlafaxine 75 mg oral tablet (20 sources) Serotonin and Norepinephrine Reuptake Inhibitor Start: 10-28-2024 End: 12-09-2024 take 1 tablet by mouth three times daily venlafaxine (EFFEXOR) 75 mg tablet Indications: Moderate episode of recurrent major depressive disorder (HCC) , CRISTINO (generalized anxiety disorder) Take 1 tablet by mouth three times a day. 270 tablet 10/28/2024 12/09/2024 Discontinued Start: 06-23-2023 End: 10-28-2024 take 1 tablet by mouth twice daily venlafaxine (EFFEXOR) 100 mg tablet Indications: Moderate episode of recurrent major depressive disorder (HCC) Take 1 tablet by mouth two times a day. 180 tablet 1 05/28/2024 10/28/2024 Discontinued Start: 01-08-2023 take 1 tablet by kristina twice daily venlafaxine (EFFEXOR) 100 mg tablet Indications: Moderate episode of recurrent major depressive disorder (HCC) Take 1 tablet by mouth twice daily. 180 tablet 1 01/08/2023 Active Start: 08-15-2022 End: 01-05-2023 take 1 tablet by mouth twice daily venlafaxine (EFFEXOR) 100 mg tablet Indications: Moderate episode of recurrent major depressive disorder (HCC) Take 1 tablet by mouth twice daily. 180 tablet 1 08/15/2022 01/05/2023 Discontinued Start: 09-19-2021 End: 08-15-2022 take 2 tablets by mouth twice daily venlafaxine (EFFEXOR) 75 mg tablet Indications: Moderate episode of recurrent major depressive disorder (HCC) Take 2 tablets by mouth twice daily. 120 tablet 5 06/30/2022 08/15/2022 Discontinued Start: 08-17-2021 End: 09-19-2021 take 1 tablet by mouth twice daily venlafaxine (EFFEXOR) 75 mg tablet Indications: Moderate episode of recurrent major depressive disorder (HCC) Take 1 tablet by mouth twice daily. 60 tablet 5 08/23/2021 09/19/2021 Discontinued Comment on above: Take 2 tablets by mo uth twice daily. Take 1 tablet by kristina th twice daily. Take 1 tablet by kristina th two times a day. Problems Active Problems Problem Classification Problem Date Documented Date Episodic/Chronic Abdominal hernia (20 sources) Gastroesophageal reflux disease with hiatal hernia; Translations: [Diaphragmatic hernia without obstruction or gangrene] Onset: 10-25-19 Episodic Adjustment disorders (2 sources) Grief finding; Translations: [Adjustment disorder with depressed mood] Onset: 10-29-19 25 10-28-2024 Chronic Anxiety disorders (7 sources) Mixed anxiety and depressive disorder; Translations: [Other specified anxiety disorders] Onset: 01-14-20 24 03-16-2023 Chronic Blindness and vision defects (3 sources) Blurring of visual image; Translations: [Other visual disturbances] 06-05-2023 Episodic Deficiency and other anemia (1 source) Microcytic anemia; Translations: [Iron deficiency anemia, unspecified] 02-05-2024 Episodic Developmental disorders (15 sources) Developmental disorder; 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] 10-21-2024 Chronic Disorders of lipid metabolism (3 sources) Hypercholesterolemia 01-26-2022 Chronic E Codes: Natural/environment (4 sources) Insect bite - wound; Translations: [Bitten or stung by nonvenomous insect and other nonvenomous arthropods, initial encounter] 11-29-2020 Episodic Esophageal disorders (20 sources) Gastro-esophageal reflux disease with esophagitis; Translations: [Gastroesophageal reflux disease with esophagitis without hemorrhage] Onset: 10-25-19 Chronic Essential hypertension (20 sources) Essential hypertension; Translations: [Essential (primary) hypertension] Onset: 01-05-20 15 07-04-2021 Chronic Headache; including migraine (20 sources) Migraine without aura; Translations: [Migraine without aura, not intractable, without status migrainosus] Onset: 01-05-20 Resolved : 01-12-20 15 01-11-2015 Chronic Headache; including migraine (8 sources) Headache; Translations: [Headache] 05-19-2021 Episodic Immunizations and screening for infectious disease (6 sources) Contact with or exposure to other viral diseases; Translations: [Lab test negative for COVID-19 virus] Onset: 11-11-1905-19-2021 Episodic Menstrual disorders (20 sources) Menorrhagia; Translations: [Excessive and frequent menstruation with regular cycle] Onset: 10-08-19 14 10-07-2013 Chronic Mood disorders (20 sources) Depressive disorder; Translations: [Depression] Onset: 07-17-19 24 05-04-2021 Chronic Mycoses (7 sources) Candidiasis of mouth; Translations: [Candidal stomatitis] 05-19-2021 Episodic Nausea and vomiting (6 sources) Nausea; Translations: [Nausea] Episodic Neoplasms of unspecified nature or uncertain behavior (1 source) Thrombocytosis; Translations: [Thrombocytosis] Onset: 02-27-20 Chronic Neoplasms of unspecified nature or uncertain behavior (2 sources) Thrombocytosis; Translations: [Thrombocytosis] Episodic Nonmalignant breast conditions (4 sources) Fibrocystic disease of breast; Translations: [Diffuse cystic mastopathy of unspecified breast] 10-16-2017 Chronic Nonmalignant breast conditions (5 sources) Pseudoangiomatous stromal hyperplasia of breast; Translations: [Other specified disorders of breast] Onset: 09-25-1909-20-2023 Episodic Nutritional deficiencies (20 sources) Iron deficiency; Translations: [Iron deficiency] Onset: 02-28-20 24 02-28-2024 Episodic Osteoarthritis (1 source) Osteoarthritis of joint of right shoulder region; Translations: [Primary osteoarthritis, right shoulder] Chronic Other connective tissue disease (1 source) Impingement syndrome of right shoulder region; Translations: [Impingement syndrome of right shoulder] Episodic Other connective tissue disease (1 source) Swelling of bilateral feet; Translations: [Other specified soft tissue disorders] 01-15-2023 Episodic Other connective tissue disease (1 source) Lateral epicondylitis of left humerus; Translations: [Lateral epicondylitis, left elbow] 02-04-2024 Episodic Other eye disorders (2 sources) Optic cupping; Translations: [Glaucomatous optic atrophy, bilateral] 06-15-2023 Chronic Other female genital disorders (1 source) Burning sensation of vagina; Translations: [Other specified conditions associated with female genital organs and menstrual cycle] 11-10-2024 Episodic Other female genital disorders (1 source) Vaginal discharge; Translations: [Other specified noninflammatory disorders of vagina] 11-10-2024 Episodic Other female genital disorders (1 source) Other specified noninflammatory disorders of vagina; Translations: [Vaginal discharge] Onset: 11-11-19 Episodic Other female genital disorders (1 source) Other specified conditions associated with female genital organs and menstrual cycle; Translations: [Vaginal burning] Onset: 11-11-19 Episodic Other gastrointestinal disorders (4 sources) Irritable bowel syndrome; Translations: [Mixed irritable bowel syndrome] Chronic Other gastrointestinal disorders (1 source) Mixed irritable bowel syndrome; Translations: [Irritable bowel syndrome with both constipation and diarrhea] Onset: 05-08-20 Chronic Other gastrointestinal disorders (2 sources) Abdominal distension, gaseous; Translations: [Abdominal distension (gaseous)] Episodic Other gastrointestinal disorders (8 sources) Esophageal dysphagia; Translations: [Other dysphagia] 04-18-2023 Episodic Other gastrointestinal disorders (1 source) Chronic constipation; Translations: [Other constipation] 08-06-2024 Episodic Other injuries and conditions due to external causes (1 source) Injury of right wrist; Translations: [Unspecified injury of right wrist, hand and finger(s), initial encounter] 08-23-2021 Episodic Other liver diseases (1 source) Steatosis of liver; Translations: [Fatty (change of) liver, not elsewhere classified] 04-18-2023 Chronic Other nervous system disorders (1 source) Neuropathy; Translations: [Polyneuropathy, unspecified] 06-05-2023 Chronic Other non-traumatic joint disorders (6 sources) Shoulder pain; Translations: [Pain in right shoulder] Episodic Other non-traumatic joint disorders (2 sources) Pain of right wrist; Translations: [Pain in right wrist] Episodic Other non-traumatic joint disorders (1 source) Pain in elbow; Translations: [Pain in right elbow] Episodic Other non-traumatic joint disorders (1 source) Pain in right shoulder; Translations: [Pain in joint, shoulder region] 09-19-2021 Episodic Other nutritional; endocrine; and metabolic disorders (2 sources) Obesity caused by energy imbalance; Translations: [Other obesity due to excess calories] 01-14-2024 Chronic Other nutritional; endocrine; and metabolic disorders (20 sources) Obesity; Translations: [Obesity, unspecified] Onset: 01-14-2001-14-2024 Chronic Other nutritional; endocrine; and metabolic disorders (1 source) Other obesity due to excess calories; Translations: [Class 1 obesity due to excess calories with body mass index (BMI) of 34.0 to 34.9 in adult, unspecified whether serious comorbidity present] Onset: 01-14-20 Chronic Other nutritional; endocrine; and metabolic disorders (1 source) Body mass index (BMI) 34.0-34.9, adult; Translations: [Class 1 obesity due to excess calories with body mass index (BMI) of 34.0 to 34.9 in adult, unspecified whether serious comorbidity present] Onset: 01-14-20 Chronic Other screening for suspected conditions (not mental disorders or infectious disease) (20 sources) Patient encounter status; Translations: [Encounter for screening for malignant neoplasm of colon] Onset: 09-25-19 Episodic Other skin disorders (1 source) Foot callus; Translations: [Corns and callosities] 02-19-2024 Episodic Other upper respiratory disease (4 sources) Seasonal allergic rhinitis; Translations: [Other seasonal allergic rhinitis] 08-20-2023 Chronic Other upper respiratory infections (4 sources) Acute laryngitis; Translations: [Acute laryngitis] 06-10-2019 Episodic Otitis media and related conditions (1 source) Acute serous otitis media of left ear; Translations: [Acute serous otitis media, left ear] 01-02-2024 Episodic Residual codes; unclassified (1 source) Obstructive sleep apnea syndrome; Translations: [Obstructive sleep apnea (adult) (pediatric)] 06-05-2023 Chronic Residual codes; unclassified (1 source) Peripheral edema; Translations: [Edema, unspecified] Episodic Residual codes; unclassified (1 source) Past history of procedure; Translations: [Other specified postprocedural states] 01-19-2023 Episodic Spondylosis; intervertebral disc disorders; other back problems (1 source) Neck pain; Translations: [Cervicalgia] 09-19-2021 Episodic Sprains and strains (9 sources) Lower back injury; Translations: [Strain of muscle, fascia and tendon of lower back, initial encounter] 08-13-2022 Episodic Thyroid disorders (20 sources) Hypothyroidism; Translations: [Hypothyroidism, unspecified] Onset: 12-07-1912-06-2010 Chronic Unclassified (3 sources) Patient encounter status 09-02-2024 Urinary tract infections (4 sources) Urinary tract infectious disease; Translations: [Urinary tract infection, site not specified] 01-25-2021 Episodic Past or Other Problems Problem Classification Problem Date Documented Da te Episodic/Chronic Abdominal pain (20 sources) Abdominal pain; Translations: [Unspecified abdominal pain] Onset: 08-06-2024 Resolved: 07-22-2013 Episodic Conditions associated with dizziness or vertigo (4 sources) Orthostatic hypotension; Translations: [Dizziness and giddiness] Onset: 05-13-2024 06-05-2023 Episodic Deficiency and other anemia (1 source) Iron deficiency anemia, unspecified; Translations: [Microcytic anemia] Onset: 02-27-2024 Episodic Genitourinary symptoms and ill-defined conditions (7 sources) Polyuria; Translations: [Polyuria] Onset: 08-06-2024 Episodic Nonspecific chest pain (2 sources) Chest pain; Translations: [Other chest pain] Onset: 01-14-2024 01-02-2024 Episodic Other connective tissue disease (1 source) Lateral epicondylitis, left elbow; Translations: [Left tennis elbow] Onset: 02-04-2024 Episodic Other endocrine disorders (20 sources) Hypoglycemia; Translations: [Hypoglycemia, unspecified] Onset: 03-29-2015 Resolved: 12-30-2019 12-30-2019 Chronic Other gastrointestinal disorders (1 source) Other dysphagia; Translations: [Esophageal dysphagia] Onset: 05-08-2023 Episodic Other gastrointestinal disorders (20 sources) Diarrhea; Translations: [Diarrhea, unspecified] Onset: 07-22-2013 Resolved: 01-11-2015 01-11-2015 Episodic Other gastrointestinal disorders (1 source) Other constipation; Translations: [Chronic constipation] Onset: 08-06-2024 Episodic Peripheral and visceral atherosclerosis (20 sources) Intermittent claudication; Translations: [Peripheral vascular disease, unspecified] Onset: 07-17-2023 Resolved: 07-17-2023 03-16-2023 Chronic Syncope (5 sources) Syncope and collapse; Translations: [Syncope and collapse] Onset: 05-13-2024 Episodic Viral infection (4 sources) Verruca plantaris; Translations: [Plantar wart] Onset: 02-19-2024 01-15-2023 Episodic Results Test Name Value Interpretation Reference Range Facility BACTERIAL VAGINOSIS NAATon 0 11-10-2024 Lactobacillus crispatus+gasseri+dudley enii + Gardnerella vaginalis + Atopobium vaginae rRNA SAVI+probe Ql (Vag fld) Not detected Normal Not detected [facility] Comment on above: Order Comment: Speci men Type: SWABOrdering Facility: [facility] Address: [address] [place] [address] Performed By: #### 3 6902-5, BVAMP ####[facility] LABCLIA [id number] [place] [address] [place] Bacteria Ur Culton Bacteria identified Cx Nom (U) CULTURE, URINE: Mixed microbiota, including predominantly: ORGANISM ID: 1 10,000 -<50,000 CFU/ml Streptococcus anginosus No susceptibility testing done. Normal [facility] Comment on above: Performed By: #### 6 30-4 ####[facility]CL[facility] [id number] [place] [address] [place] C. trachomatis+N. gonorrhoea e DNA SAVI+probe Ql (Unsp spec)on 11-10-2024 C. trachomatis rRNA SAVI+probe Ql (Unsp spec) Not detected Normal Not detected [facility] Comment on above: Order Comment: Speci men Type: SWABOrdering Facility: [facility] Address: [address] [place] [address] Performed By: #### 3 6902-5, BVAMP ####[facility]CL[facility] [id number] [place] [address] [place] N. gonorrhoeae rRNA SAVI+probe Ql (Unsp spec) Not detected Normal Not detected [facility] Comment on above: Order Comment: Speci men Type: SWABOrdering Facility: [facility] Address: [address] [place] [address] Performed By: #### 3 6902-5, BVAMP ####[facility]CL[facility] [id number] [place] [address] [place] BRYON/TRICHOMONAS NAATon 0 11-10-2024 C. glabrata RNA SAVI+probe Ql (Vag fld) Not detected Normal Not detected [facility] Comment on above: Order Comment: Speci men Type: SWABOrdering Facility: [facility] Address: [address] [place] [address] Performed By: #### C VTV ####[facility] LABIA [id number] [place] [address] [place] Bryon sp DNA SAVI+probe Ql (Vag fld) Not detected Normal Not detected [facility] Comment on above: Order Comment: Speci men Type: SWABOrdering Facility: [facility] Address: [address] [place] [address] Result Comment: The Bryon species group target includes C. albicans, C. tropicalis, C. parapsilosis, and C. dubliniensis. Performed By: #### C VTV ####[facility]CL[facility] [id number] [place] [address] [place] T. vaginalis DNA SAVI+probe Ql (Unsp spec) Detected Abnormal Not detected [facility] Comment on above: Order Comment: Speci men Type: SWABOrdering Facility: [facility] Address: [address] [place] [address] Performed By: #### C VTV ####[facility]CL[facility] [id number] KAMALALuis Miguel [place] [id number] [place] CNOVon 11-10-2024 CNOV Office Visit (OBGYWM ) MAXIMUS BRADLEY ([id number]) 1975 F Date Time Provider Department 11/10/24 2:00 PM EMA ABDULLAHI OBGYWM During your visit today, we recorded the following information about you: Blood pressure Weight Height Last Period 124/78 96.1 kg 1.63 m 11/06/24 Ema Abdullahi APRN.FONDANT COOKER 11/10/2024 2:33 PM Signed Patient declined wharfinger chiefAjith Hemphill is a 49 year old who presents for an annual gynecologic exam with complaints, vaginal itching and vulvar irritation. Just recently started, unsure if it is caused by bodywash. Vaginal discharge- yellow LMP: 11/06/2024 Menses: every 21-30 days lasting 4-6 days Contraception: Tubal Ligation HPV vaccine: No Last Pap: 08/06/2020 normal HPV: 08/02/2020 negative History of abnormal pap: Yes Last mammogram: 09/24/2024 with (LT) breast ultrasound, six month follow up. Sexually active: Yes Patient concerns for STD exposure: No. OB History Gravida1 Para1 Term1 Preterm0 AB0 Living1 SAB0 IAB0 Ectopic0 Multiple0 Live Births0 FAMILY HISTORY Adopted: Yes Problem Relation Age of Onset Cancer Father lung Heart disease Sister No Known Problems Brother No Known Problems Brother other (Liver Disease) Paternal Grandmother Migraines Paternal Grandmother Cancer Paternal Grandfather Lung No Known Problems Son Cancer Paternal Uncle Throat No Ocular Disease No Family History SOCIAL HISTORY Social History Tobacco Use Smoking status: Former Current packs/day: 1.00 Types: Cigarettes Smokeless tobacco: Former Quit date: 04/25/2015 Vaping Use Vaping status: Never Used Substance Use Topics Alcohol use: Yes Comment: less than weekly use Drug use: Never REVIEW OF SYSTEMS Abdomen: No abdominal pain, nausea, vomiting, diarrhea, or constipation. No bloating, early satiety, indigestion, or increased flatulence. Bladder: No gross hematuria, urinary frequency, urinary urgency, or incontinence. +dysuria Breast: No breast lumps, nipple d/c, overlying skin changes, redness or skin retraction. Allergies and current medication updated:Yes SENSITIVE EXAM: The sensitive examination was discussed with the Patient or Patient's Authorized Control Specialist. As applicable, any other physician, advance practice provider, medical student, or other health professional student that will be observing or involved in the sensitive examination for educational or training purposes was discussed with the Patient or Authorized Control Specialist. The Patient or Authorized Control Specialist has agreed to proceed with the sensitive examination. (Sensitive examination includes inspection and/or palpation of the breasts, pelvis, prostate and anorectal regions). EXAM: BP 124/78 Ht 5' 4.173" (1.63m) Wt 211 lb 12.8 oz (96.1kg) LMP 11/06/2024 BMI 36.16 kg/(m2). GENERAL: pleasant, female in no apparent distress HEENT: Normocephalic, atraumatic, mucus membranes moist, and no lesions DERMATOLOGY: Normal, without lesions, non-icteric, and non-hirsute BREAST: soft, non-tender, symmetric, no dominant mass, normal nipple-areolar complex, no lymphadenopathy, and no nipple discharge CHEST: Normal inspiratory effort ABDOMEN: soft, non-tender, and no masses PELVIC: external genitalia normal, normal Bartholin's glands, urethra, [place]'s glands, no vulvar lesions, no cervical lesions, physiologic discharge present, normal appearing perineal body and perianal region BIMANUAL: uterus normal size, shape and consistency, no adnexal masses, and non-tender RECTOVAGINAL: deferred. NEURO: alert and oriented x3,exam grossly non-focal EXTREMITIES: normal ASSESSMENT/PLAN: 1. Encounter for gynecological examination (general) (routine) without abnormal findings - ICD9: V72.31, ICD10: Z01.419 (primary diagnosis) - Completed pap test and breast exam - Encouraged monthly BSE - Follow up for annual exam in one year. - PAP TEST - PARTH SCREENING W LAURA - GONORRHEA/CHLAMYDIA NAAT - BACTERIAL VAGINOSIS NAAT - BRYON/TRICHOMONAS NAAT 2. Vaginal discharge - ICD9: 623.5, ICD10: N89.8 - BACTERIAL VAGINOSIS NAAT - BRYON/TRICHOMONAS NAAT - TRICHOMONAS VAGINALIS NAAT 3. Screening for cervical cancer - ICD9: V76.2, ICD10: Z12.4 - PAP TEST 4. Encounter for screening for human papillomavirus (HPV) - ICD9: V73.81, ICD10: Z11.51 - PAP TEST 5. Screen for STD (sexually transmitted disease) - ICD9: V74.5, ICD10: Z11.3 - GONORRHEA/CHLAMYDIA NAAT - TRICHOMONAS VAGINALIS NAAT 6. Encounter for screening mammogram for breast cancer - ICD9: V76.12, ICD10: Z12.31 - PARTH SCREENING W LAURA 7. Category 3 mammography result with short follow-up interval suggested for probably benign finding - ICD9: 793.82, ICD10: R92.8 - US BREAST LTD LEFT - PARTH DIAGNOSTIC LEFT Will notify patient of test results. Ema Abdullahi APRN.CNP Medical Decision Making: P (more content not included)... Normal [facility] MAXIMUS BRADLEY ([id number]) 1975 F Date Time Provider Department 11/10/24 10:45 AM ELLA RILEY [facility] During your visit today, we recorded the following information about you: Temperature Pulse Respiration Blood pressure 98.2 degrees 96/minute 16/minute 124/70 Weight 94.7 kg Ella Riley APRN.FONDANT COOKER 11/10/2024 11:51 AM Signed [facility] Subjective Maximus Vang Kirk is a 49 year old female. Patient presents with: Vaginal Problem: itching and burning x 2 days Patient came in with complaints of burning and pressure. Says it started about 2 days ago. Denies any possibility of STD. Said she was tested 3 years ago and does not want tested again. Patient did not know the last time she had sex. The history is provided by the patient. No professor of geology was used. Vaginal Problem Review of Systems Constitutional: Negative. HENT: Negative. Genitourinary: Positive for dysuria. Objective BP 124/70 Pulse 96 Temp 36.8 ?C (98.2 ?F) Resp 16 Wt 94.7 kg (208 lb 12.4 oz) LMP 10/07/2024 (Approximate) SpO2 99% BMI 33.70 kg/m? Physical Exam Constitutional: Appearance: Normal appearance. Cardiovascular: Rate and Rhythm: Normal rate and regular rhythm. Heart sounds: Normal heart sounds. Pulmonary: Effort: Pulmonary effort is normal. Breath sounds: Normal breath sounds. Abdominal: General: Abdomen is flat. Bowel sounds are normal. Tenderness: There is no abdominal tenderness. There is no right CVA tenderness, left CVA tenderness or guarding. Neurological: Mental Status: She is alert. PAST MEDICAL HISTORY Diagnosis Date Abdominal pain, epigastric Abnormal mammogram 09/14/2016 Acute gastritis without mention of hemorrhage Anxiety Chest pain Class 1 obesity due to excess calories without serious comorbidity with body mass index (BMI) of 34.0 to 34.9 in adult Depression Disability, developmental Enlarged thyroid Gastroesophageal reflux disease with esophagitis without hemorrhage Hypothyroidism Iron deficiency LLQ pain 10/07/2013 Low blood sugar 03/29/2015 Migraines [facility] neurology Obesity Plantar warts Reflux esophagitis Thrombocytosis Urinary retention Pablo Arrington PAST SURGICAL HISTORY Procedure Laterality Date BX OF BREAST; INCISIONAL Left 09/05/2023 COLONOSCOPY 11/28/2021 repeat in 10 years DILATION AND CURETTAGE DXAND/THER NONOBSTETRIC EGD 10/24/2024 EGD W/O BRSH SPEC VARICIES INJ 01/30/2022 ESOPHAGOGASTRODUODENOSCOPY TRANSORAL DIAGNOSTIC 07/04/2005 EGD FNA WITH IMAGING Right 09/26/2016 U/S FNA UOQ right breast LIG/TRNSXJ FLP TUBE ABDL/VAG APPR UNI/BI Tubal ligation ALLERGIES Bee Pollen, Adderall [Dextroamphetamine-Amphetami ne], Amphetamine, and Imitrex [Sumatriptan] MEDICATIONS venlafaxine (EFFEXOR) 75 mg tablet Take 1 tablet by mouth three times a day. buPROPion XL (WELLBUTRIN XL) 300 mg 24 hr tablet Take 1 tablet by mouth once daily. topiramate (TOPAMAX) 25 mg capsule Take 2 capsules by mouth two times a day. folic acid 1 mg tablet Take 1 tablet by mouth once daily. VITAMIN D-3 50 mcg (2,000 unit) tablet TAKE 2 TABLETS (4000 UNITS) BY MOUTH ONCE DAILY naratriptan (AMERGE) 2.5 mg tablet Take 1 tablet by mouth as directed. at the onset of headache; if headache returns or does not fully resolve, the dose may be repeated after 4 hours; do not exceed five(5) mg in 24 hours. NO more than 10 doses in a month. famotidine (PEPCID) 20 mg tablet Take 1 tablet by mouth at bedtime as needed. clotrimazole (LOTRIMIN) 1 % cream Apply BID to rash until rash goes away, and then continue for 1 more week. cyanocobalamin (VITAMIN B-12) 1,000 mcg tab TAKE 1 TABLET BY MOUTH DAILY busPIRone (BUSPAR) 5 mg tablet Take 1 tablet by mouth two times a day. levothyroxine (SYNTHROID) 75 mcg tablet Take 1 tablet by mouth once daily. Take on empty stomach. For Thyroid omeprazole (PRILOSEC) 40 mg capsule Take 1 capsule by mouth once daily. loratadine (CLARITIN) 10 mg tablet Take 1 tablet by mouth once daily. albuterol HFA (VENTOLIN HFA) 90 mcg/actuation inhaler Inhale 2 Puffs as instructed every 4 hours as needed for wheezing/shortness of breath. fluticasone (FLONASE) 50 mcg/actuation nasal spray Use 2 Sprays in each nostril once daily. Rinse mouth after use. FAMILY HISTORY Adopted: Yes Problem Relation Age of Onset Cancer Father lung Heart disease Sister No Known Problems Brother No Known Problems Brother other (Liver Disease) Paternal Grandmother Migraines Paternal Grandmother Cancer Paternal Grandfather Lung No Known Problems Son Cancer Paternal Uncle Throat No Ocular Disease No Family History Social History Tobacco Use Smoking status: Former Current packs/day: 1.00 Types: Cigarettes Smokeless tobacco: Former Quit date: 04/25/2015 Vaping Use Vaping status: Never (more content not included)... Normal [facility] HIGH RISK HUMAN PAPILLOMA MELECIO (HPV), PCR FOR DETECTION AND GENOTYPINGon 11-10-2024 HPV 16 Ag Ql (Unsp spec) Not detected Normal Not detected [facility] Comment on above: Order Comment: Speci men Type: FLUID SPECIMENOrdering Facility: [facility] Address: [address] [place] [address] Performed By: #### H PVHRT ####[facility] LABIA [id number] [address] [place] HPV 18 Ag Ql (Unsp spec) Not detected Normal Not detected [facility] Comment on above: Order Comment: Speci men Type: FLUID SPECIMENOrdering Facility: [facility] Address: [address] [place] [address] Performed By: #### H PVHRT ####[facility] [id number] [place] [address] [place] HPV 31+33+35+39+45+51+52+5 6+58+59+66+68 DNA SAVI+probe Ql (Cvx) Not detected Normal Not detected [facility] Comment on above: Order Comment: Speci men Type: FLUID SPECIMENOrdering Facility: [facility] Address: [address] [place] [address] Result Comment: High Risk HPV Other Type includes HPV types 31, 33, 35, 39, 45, 51, 52, 56, 58, 59, 66 and 68. Performed By: #### H PVHRT ####[facility] [id number] [place] [address] [place] PAP TESTon 11-10-2024 ADEQUACY Normal [facility] Comment on above: Order Comment: Speci men Type: FLUID SPECIMENOrdering Facility: [facility] Address: [address] [place] [address] Result Comment: Sati sfactory for interpretation. Transformation zone present Performed By: #### L [id number] ####[facility] LABCLIA [id number] [place] [address] [place] CASE REPORT Normal [facility] Comment on above: Order Comment: Speci men Type: FLUID SPECIMENOrdering Facility: [facility] Address: [address] [place] [address] Result Comment: Gyne cologic Cytology Report Case: [id number] Authorizing Provider: Ema Abdullahi APRN.FONDANT COOKER Collected: 11/10/2024 02:24 PM Ordering Location: OB/Gynecology Received: 11/10/2024 03:56 PM First Screen: Jenny Joseph, CT, ASCP Rescreen: Nataly Braxton CT, ASCP Pathologist: Sakina Sue MD Specimen: Pap Test, ThinPrep, Cervix Performed By: #### L [id number] ####[facility] LABCLIA [id number] [place] [address] [place] CLINICAL HISTORY, CYTOLOGY, RECREATION COORDINATOR Routine Exam Normal [facility] Comment on above: Order Comment: Speci men Type: FLUID SPECIMENOrdering Facility: [facility] Address: [address] [place] [address] Performed By: #### L [id number] ####[facility] LABCLIA [id number] [place] [address] [place] FINAL PERFORMING LAB Normal [facility] Comment on above: Order Comment: Speci men Type: FLUID SPECIMENOrdering Facility: [facility] Address: [address] [place] [address] Result Comment: Tech nical component, dental laboratory supervisor screening performed at: [facility], [address] [place] [address] [place] [address] CLIA: [id number] Diagnostic interpretation performed at: [facility], [address] [place], [place] [id number] CLIA# [id number] Sheet Ironworker: Ryan eDvries MD Performed By: #### L [id number] ####[facility]CL[facility] [id number] [address] [place] [address] [place] INTERPRETATION, CYTOLOGY, RECREATION COORDINATOR Abnormal [facility] Comment on above: Order Comment: Speci men Type: FLUID SPECIMENOrdering Facility: [facility] Address: [address] [place] [address] Result Comment: Atyp ical squamous cells of undetermined significance (ASC-US). at 1148 EDT Performed By: #### L [id number] ####[facility]CLIA [id number] [address] [place] [address] [place] LMP 11/06/[address] [facility] Comment on above: Order Comment: Speci men Type: FLUID SPECIMENOrdering Facility: [facility] Address: [address] [place] [address] Performed By: #### L [id number] ####[facility]CLIA [id number] [address] [address] [place] PAP DISCLAIMER COMMENT The Pap Smear is a screening test for cervical cancer. False negative results occur with all screening tests, emphasizing the need for rescreening at recommended intervals, and clinical correlation. Normal [facility] Comment on above: Order Comment: Speci men Type: FLUID SPECIMENOrdering Facility: [facility] Address: [address] [place] [address] Performed By: #### L [id number] ####[facility]CL[facility] [id number] [address] [address] [place] PAP GENERAL CATEGORIZATION Epithelial Cell Abnormality Normal [facility] Comment on above: Order Comment: Speci men Type: FLUID SPECIMENOrdering Facility: [facility] Address: [address] [place] [address] Performed By: #### L [id number] ####[facility] [id number] [address] [address] [place] UA DIP, URINE (POC)on 05-05- 2025 BILIRUBIN UA (POCT) Negative Negative [facility] CLARITY UA (POCT) Slightly Cloudy Cl sakina [facility] COLOR UA (POCT) Dark yellow [facility] GLUCOSE UA (POCT) Negative Negative mg/dL [facility] Hemoglobin Ql (U) Trace-intact Abnormal Negative [facility] Interpretation and review of laboratory results Abnormal [facility] KETONE UA (POCT) Negative Negative mg/dL [facility] LEUKOCYTES UA (POCT) Small Abnormal Negative [facility] NITRITE UA (POCT) Negative Negative [facility] PH UA (POCT) 6 4.5 - 8.0 [facility] Protein Ql (U) Negative Negative mg/dL [facility] SPECIFIC GRAVITY UA (POCT) 1.025 1.005 - 1.030 [facility] UROBILINOGEN UA (POCT) 1 Michelle l E.U./dL [facility] Location:[address], [address] [place] [address] POINT OF CARE [facility] CNCOon 11-03-2024 CNCO Letter Text Normal [facility] CNOVon 10-28-2024 CNOV Office Visit (FAMPWS ) MAXIMUS BRADLEY ([id number]) 1975 F Date Time Provider Department 10/28/24 2:20 PM LENY HSUPWS During your visit today, we recorded the following information about you: Pulse Respiration Blood pressure Weight 85/minute 16/minute 118/64 95.6 kg Leny Hsu MD 10/29/2024 7:44 AM Signed Chief Complaint Patient presents with: Follow Up: Patient requesting something due to increased anxiety- related to issues with her mom and her passing HPI Maximus Bradley is a 49 year old female who presents here today for Above Complaints.. Patient states that her mother on 10/13 from stroke. Anxiety and depression symptoms have been worse since her passing. Patient has been compliant with her regimen. Is not seeing counseling, though her mother was in Hospice. CRISTINO-7 10/28/2024 CRISTINO-7 All Questions Feeling nervous, anxious, or on edge Nearly Everyday Not being able to stop or control worrying Nearly Everyday Worrying too much about different things Nearly Everyday Trouble relaxing Nearly Everyday Being so restless that it is hard to sit still Several days Becoming easily annoyed or irritable Several days Feeling afraid, as if something awful might happen Several days CRISTINO-7 Score 15 PHQ-9 More data exists 07/27/2016 01/30/2017 02/28/2018 03/25/2019 10/28/2024 PHQ-9 Scores Little interest or pleasure in doing things: Not at all Several days Nearly every day Not at all Several days Feeling down, depressed, or hopeless: Not at all Several days Nearly every day Not at all Nearly every day Trouble falling or staying asleep, or sleeping too much Several days - Nearly every day - More than half the days Feeling tired or having little energy Nearly every day - Nearly every day - More than half the days Poor appetite or overeating Several days - Nearly every day - Nearly every day Feeling bad about yourself - or that you are a failure or have let yourself or your family down Not at all - - - Nearly every day Trouble concentrating on things, such as reading the newspaper or watching television Not at all - Not at all - Nearly every day Moving or speaking so slowly that other people could have noticed. Or the opposite - being so fidgety or restless that you have been moving around a lot more than usual Not at all - Not at all - Several days Thoughts that you would be better off , or of hurting yourself in some way Not at all - - - Not at all PHQ-9 Score 5 - - - 18 Past medical history, appointments, medications, allergies reviewed. Previous Medical History PAST MEDICAL HISTORY Diagnosis Date Abdominal pain, epigastric Abnormal mammogram 09/14/2016 Acute gastritis without mention of hemorrhage Anxiety Chest pain Class 1 obesity due to excess calories without serious comorbidity with body mass index (BMI) of 34.0 to 34.9 in adult Depression Disability, developmental Enlarged thyroid Gastroesophageal reflux disease with esophagitis without hemorrhage Hypothyroidism Iron deficiency LLQ pain 10/07/2013 Low blood sugar 03/29/2015 Migraines [facility] neurology Obesity Plantar warts Reflux esophagitis Thrombocytosis Urinary retention Pablo Arrington Previous Surgical History PAST SURGICAL HISTORY Procedure Laterality Date BX OF BREAST; INCISIONAL Left 09/05/2023 COLONOSCOPY 11/28/2021 repeat in 10 years DILATION AND CURETTAGE DXAND/THER NONOBSTETRIC EGD W/O BRSH SPEC VARICIES INJ 01/30/2022 ESOPHAGOGASTRODUODENOSCOPY TRANSORAL DIAGNOSTIC 07/04/2005 EGD FNA WITH IMAGING Right 09/26/2016 U/S FNA UOQ right breast LIG/TRNSXJ FLP TUBE ABDL/VAG APPR UNI/BI Tubal ligation Family History FAMILY HISTORY Adopted: Yes Problem Relation Age of Onset Cancer Father lung Heart disease Sister No Known Problems Brother No Known Problems Brother other (Liver Disease) Paternal Grandmother Migraines Paternal Grandmother Cancer Paternal Grandfather Lung No Known Problems Son Cancer Paternal Uncle Throat No Ocular Disease No Family History Patient Allergies ALLERGIES Allergen Reactions Bee Pollen Anaphylaxis Adderall [Dextroamp* Itching Amphetamine Itching Imitrex [Sumatripta* Other: See Comments palpitations Current Medications Current Outpatient Medications on File Prior to Visit Medication Sig buPROPion XL (WELLBUTRIN XL) 300 mg 24 hr tablet Take 1 tablet by mouth once daily. topiramate (TOPAMAX) 25 mg capsule Take 2 capsules by mouth two times a day. folic acid 1 mg tablet Take 1 tablet by mouth once daily. VITAMIN D-3 50 mcg (2,000 unit) tablet TAKE 2 TABLETS (4000 UNITS) BY MOUTH ONCE DAILY naratriptan (AMERGE) 2.5 mg tablet Take 1 tablet by mouth as directed. at the onset of headache; if headache returns or does not fully resolve, the dose may be repeated after 4 hours; d (more content not included)... Normal [facility] Calvin 10-27-2024 BHARATHIN Telephone (FAMPWS) MAXIMUS BRADLEY ([id number]) 1975 F Date Time Provider Department 10/27/24 LENY HSU During your visit today, we recorded the following information about you: Tamica Gamez LPN 10/27/2024 10:40 AM Signed Patient calling asking if she could have her depression medication dose increased? Patient asking if she would need an appt first? Patient said her mother on October 13. Patient said she is taking Venlafaxine 100 mg one tablet twice daily. Please advise Leny Hsu MD 10/27/2024 10:50 AM Signed Recommend OV to discuss. Maya Hernandez RN 10/27/2024 12:59 PM Signed Pt scheduled with Dr Hsu tomorrow at 220. Allergies As of Date: 10/27/2024 Noted Allergy Reaction BEE POLLEN 01/23/2019 10 - Anaphylaxis ADDERALL (DEXTROAMPHETAMINE-AMPHE* 9 - Itching AMPHETAMINE 12/13/2016 9 - Itching IMITREX (SUMATRIPTAN) 01/11/2015 14 - Other: See Comments Comments: palpitations Date Reviewed: 10/24/2024 Reviewed by: Jannette Marrero, [place] - Fully Assessed Reason for Visit: Patient Question [0755] Prescriptions as of 10/27/2024 - buPROPion XL (WELLBUTRIN XL) 300 mg 24 hr tablet Take 1 tablet by mouth once daily. - topiramate (TOPAMAX) 25 mg capsule Take 2 capsules by mouth two times a day. - folic acid 1 mg tablet Take 1 tablet by mouth once daily. - VITAMIN D-3 50 mcg (2,000 unit) tablet TAKE 2 TABLETS (4000 UNITS) BY MOUTH ONCE DAILY - naratriptan (AMERGE) 2.5 mg tablet Take 1 tablet by mouth as directed. at the onset of headache; if headache returns or does not fully resolve, the dose may be repeated after 4 hours; do not exceed five(5) mg in 24 hours. NO more than 10 doses in a month. - famotidine (PEPCID) 20 mg tablet Take 1 tablet by mouth at bedtime as needed. - clotrimazole (LOTRIMIN) 1 % cream Apply BID to rash until rash goes away, and then continue for 1 more week. - cyanocobalamin (VITAMIN B-12) 1,000 mcg tab TAKE 1 TABLET BY MOUTH DAILY - busPIRone (BUSPAR) 5 mg tablet Take 1 tablet by mouth two times a day. - levothyroxine (SYNTHROID) 75 mcg tablet Take 1 tablet by mouth once daily. Take on empty stomach. For Thyroid - omeprazole (PRILOSEC) 40 mg capsule Take 1 capsule by mouth once daily. - loratadine (CLARITIN) 10 mg tablet Take 1 tablet by mouth once daily. - albuterol HFA (VENTOLIN HFA) 90 mcg/actuation inhaler Inhale 2 Puffs as instructed every 4 hours as needed for wheezing/shortness of breath. - venlafaxine (EFFEXOR) 100 mg tablet Take 1 tablet by mouth two times a day. - fluticasone (FLONASE) 50 mcg/actuation nasal spray Use 2 Sprays in each nostril once daily. Rinse mouth after use. Problem List As Of Date 10/27/2024 Noted Resolved Abdominal pain, epigastric [R10.13] 07/22/2013 Hypothyroidism [E03.9] 12/06/2010 Enlarged thyroid [E04.9] 12/06/2010 Diarrhea [R19.7] 07/22/2013 01/11/2015 Menorrhagia [N92.0] 10/07/2013 Migraines [G43.909] 01/04/2015 01/11/2015 Essential hypertension [I10] 01/04/2015 Migraine headache without aura [G43.009] 01/11/2015 Low blood sugar [E16.2] 03/29/2015 12/30/2019 Depression [F32.A] Moderate episode of recurrent major depressive *07/17/2023 Claudication (HCC) [I73.9] 07/17/2023 07/17/2023 Obesity [E66.9] 01/14/2024 Iron deficiency [E61.1] Disability, developmental [F89] Gastroesophageal reflux disease [K21.9] 10/24/2024 Hiatal hernia [K44.9] 10/24/2024 Encounter Status:Closed by MAYA HERNANDEZ on 10/27/24 [facility] [id number] 10-24-2024 [id number] HNO ID: [id number] Author: JANNETTE MARRERO RN Service: ? Author Type: Registered Nurse Type: [id number] Filed: 10/24/2024 12:19 Note Text: The patient received a copy of EGD discharge instructions that contain information for how to contact the physician who performed the procedure and when to seek medical care. Normal [facility] EGD Study observation Nabor olivares 10-24-2024 Dominic [facility] Gastrointestinal Endoscopy Patient Name: Maximus Bradley Procedure Date: 10/24/2024 11:20 AM Date of : 1975 Admit Type: Outpatient Age: 49 Gender: Female Note Status: Finalized Procedure: Upper GI endoscopy Indications: Heartburn, Gastro-esophageal reflux disease Providers: Kirk Cast MD Patient Profile: This is a 49 year old female. Refer to note in patient chart for documentation of history and physical. Referring Physician: iKrk Cast MD (Referring MD) Medicines: Fentanyl 50 micrograms IV, Midazolam 5 mg IV, Diphenhydramine 50 mg IV, Benzocaine spray Complications: No immediate complications. Estimated blood loss: Minimal. Requesting Provider: Procedure: Pre-Anesthesia Assessment: - Prior to the procedure, a History and Physical was performed, and patient medications and allergies were reviewed. The patient's tolerance of previous anesthesia was also reviewed. The risks and benefits of the procedure and the sedation options and risks were discussed with the patient. All questions were answered, and informed consent was obtained. Prior Anticoagulants: The patient has taken no anticoagulant or antiplatelet agents. ASA Grade Assessment: III - A patient with severe systemic disease. After reviewing the risks and benefits, the patient was deemed in satisfactory condition to undergo the procedure. After obtaining informed consent, the endoscope was passed under direct vision. Throughout the procedure, the patient's blood pressure, pulse, and oxygen saturations were monitored continuously. The Endosonoscope was introduced through the mouth, and advanced to the second part of duodenum. The upper GI endoscopy was accomplished without difficulty. The patient tolerated the procedure well. Moderate Sedation: The administration of moderate sedation was initiated at 11:39. Moderate (conscious) sedation was personally administered by the endoscopist. The following parameters were monitored: oxygen saturation, heart rate, blood pressure, respiratory rate, EKG, adequacy of pulmonary ventilation, and response to care. Total physician intraservice time was 10 minutes. Findings: The Z-line was variable and was found 34 cm from the incisors. This was biopsied with a cold forceps for histology. Diffuse moderate inflammation characterized by erythema and linear erosions was found in the prepyloric region of the stomach. Biopsies were taken with a cold forceps for Helicobacter pylori testing. The examined duodenum was normal. Biopsies for histology were taken with a cold forceps for evaluation of celiac disease. Impression: - Z-line variable, 34 cm from the incisors. Biopsied. - Gastritis, characterized by erythema and linear erosions. Biopsied. - Normal examined duodenum. Biopsied. Recommendation: - Patient has a contact number available for emergencies. The signs and symptoms of potential delayed complications were discussed with the patient. Return to normal activities tomorrow. Written discharge instructions were provided to the patient. - Resume previous diet. - Continue present medications. - Await pathology results. - Repeat upper endoscopy PRN for surveillance. - Return to nurse practitioner at appointment to be scheduled. Procedure Code(s): --- Professional --- 83474, Esophagogastroduodenoscopy, flexible, transoral; with biopsy, single or multiple G0500, Moderate sedation services provided by the same physician or other qualified health vp care management performing a gastrointestinal endoscopic service that sedation supports, requiring the presence of an independent trained observer to assist in the monitoring of the (more content not included)... PROVATION [facility] Radiology Study observation (narrative) [facility] HISTORY PHYSICALon HISTORY PHYSICAL HNO ID: [id number] Author: KIRK CAST MD Service: General Surgery Author Type: Physician Type: H&P Filed: 10/24/2024 11:22 Note Text: HISTORY AND PHYSICAL Maximus Vang Kirk 1975 REFERRING PHYSICIAN: Jordin Dickerson MD CHIEF COMPLAINT: Follow Up (6 month follow up mamm) HPI: The patient is a 49 year old female referred for endoscopy. Maximus notes no history of colon complaints. The patient notes the following upper complaints: Maximus denies abdominal pain.. Maximus notes heartburn. Maximus denies dysphagia. Maximus denies a history of ulcers/ peptic ulcer disease. Maximus has undergone prior endoscopy. 2021 The patient is being seen by me today at the request of Dr. Dickerson for my opinion and advice regarding Hiatal hernia (primary encounter diagnosis) Gastroesophageal reflux disease, unspecified whether esophagitis present. PAST MEDICAL HISTORY PAST MEDICAL HISTORY Diagnosis Date Abdominal pain, epigastric Abnormal mammogram 09/14/2016 Acute gastritis without mention of hemorrhage Anxiety Chest pain Class 1 obesity due to excess calories without serious comorbidity with body mass index (BMI) of 34.0 to 34.9 in adult Depression Disability, developmental Enlarged thyroid Gastroesophageal reflux disease with esophagitis without hemorrhage Hypothyroidism Iron deficiency LLQ pain 10/07/2013 Low blood sugar 03/29/2015 Migraines [facility] neurology Obesity Plantar warts Reflux esophagitis Thrombocytosis Urinary retention Pablo Arrington PAST SURGICAL HISTORY PAST SURGICAL HISTORY Procedure Laterality Date BX OF BREAST; INCISIONAL Left 09/05/2023 COLONOSCOPY 11/28/2021 repeat in 10 years DILATION AND CURETTAGE DXAND/THER NONOBSTETRIC EGD W/O BRSH SPEC VARICIES INJ 01/30/2022 ESOPHAGOGASTRODUODENOSCOPY TRANSORAL DIAGNOSTIC 07/04/2005 EGD FNA WITH IMAGING Right 09/26/2016 U/S FNA UOQ right breast LIG/TRNSXJ FLP TUBE ABDL/VAG APPR UNI/BI Tubal ligation CURRENT MEDICATIONS Current Outpatient Medications Medication Sig VITAMIN D-3 50 mcg (2,000 unit) tablet TAKE 2 TABLETS (4000 UNITS) BY MOUTH ONCE DAILY naratriptan (AMERGE) 2.5 mg tablet Take 1 tablet by mouth as directed. at the onset of headache; if headache returns or does not fully resolve, the dose may be repeated after 4 hours; do not exceed five(5) mg in 24 hours. NO more than 10 doses in a month. famotidine (PEPCID) 20 mg tablet Take 1 tablet by mouth at bedtime as needed. clotrimazole (LOTRIMIN) 1 % cream Apply BID to rash until rash goes away, and then continue for 1 more week. cyanocobalamin (VITAMIN B-12) 1,000 mcg tab TAKE 1 TABLET BY MOUTH DAILY busPIRone (BUSPAR) 5 mg tablet Take 1 tablet by mouth two times a day. levothyroxine (SYNTHROID) 75 mcg tablet Take 1 tablet by mouth once daily. Take on empty stomach. For Thyroid omeprazole (PRILOSEC) 40 mg capsule Take 1 capsule by mouth once daily. buPROPion XL (WELLBUTRIN XL) 300 mg 24 hr tablet Take 1 tablet by mouth once daily. loratadine (CLARITIN) 10 mg tablet Take 1 tablet by mouth once daily. albuterol HFA (VENTOLIN HFA) 90 mcg/actuation inhaler Inhale 2 Puffs as instructed every 4 hours as needed for wheezing/shortness of breath. venlafaxine (EFFEXOR) 100 mg tablet Take 1 tablet by mouth two times a day. folic acid 1 mg tablet Take 1 tablet by mouth once daily. topiramate (TOPAMAX) 25 mg capsule Take 2 capsules by mouth two times a day. fluticasone (FLONASE) 50 mcg/actuation nasal spray Use 2 Sprays in each nostril once daily. Rinse mouth after use. No current facility-administered medications for this visit. ALLERGIES: Bee Pollen, Adderall [Dextroamphetamine-Amphetami ne], Amphetamine, and Imitrex [Sumatriptan] PERSONAL HISTORY: SOCIAL HISTORY Social History Tobacco Use Smoking status: Former Current packs/day: 1.00 Types: Cigarettes Smokeless tobacco: Former Quit date: 04/25/2015 Vaping Use Vaping status: Never Used Substance Use Topics Alcohol use: Yes Comment: less than weekly use Drug use: Never FAMILY HISTORY: FAMILY HISTORY FAMILY HISTORY Adopted: Yes Problem Relation Age of Onset Cancer Father lung Heart disease Sister No Known Problems Brother No Known Problems Brother other (Liver Disease) Paternal Grandmother Migraines Paternal Grandmother Cancer Paternal Grandfather Lung No Known Problems Son Cancer Paternal Uncle Throat No Ocular Disease No Family History REVIEW OF SYMPTOMS: The review of systems data was entered by the nurse and reviewed by me There are no exam notes on file for this visit. PHYSICAL EXAMINATION: General: The patient is 49 year old female, well nourished, well hydrated in no acute distress. The patient is oriented to time, place, and person. VITALS: Last menstrual period 11/29/2023. There is no height or weight on file to calculate BMI. HEENT: Normal cephalic, ataumatic, pupils are equally round, sclera (more content not included)... Normal [facility] Pathology biopsy report Enrique (Tiss)on 10-24-2024 AP DISCLAIMER Normal [facility] Comment on above: Order Comment: Speci men Type: TISSUE SPECIMENOrdering Facility: [facility] Address: [address] [place] [address] Result Comment: Rosenda arroyo Developed Test (LDT) Disclaimer: Performance characteristics of immunohistochemical, immunofluorescent, and chromogenic in-situ hybridization tests have been determined by the performing laboratory within [facility]'s [facility] Pathology and Laboratory Medicine Department ([facility], [facility], [facility], [facility], [facility], [facility], or [facility]) in a manner consistent with CLIA requirements. One or more of these tests may not have been cleared or approved by the FDA. RT[facility] is regulated under CLIA as qualified to perform high-complexity testing. These tests are used for clinical purposes. These should not be regarded as investigational or for research. Positive and negative controls stain appropriately. Performed By: #### 6 6121-5 ####[facility] [id number] [place] [address] [place] CASE REPORT Normal [facility] Comment on above: Order Comment: Speci men Type: TISSUE SPECIMENOrdering Facility: [facility] Address: [address] [place] [address] Result Comment: Surg ical Pathology Report Case: [id number] Authorizing Provider: Kirk Cast MD Collected: 10/24/2024 11:46 AM Ordering Location: Ambulatory Surgery Received: 10/24/2024 01:06 PM Pathologist: Jay Britton MD Specimens: A) - Small Bowel, Duodenum, Biopsy B) - Stomach, Antrum, Biopsy, Antral bx for H/H C) - Esophagus, Distal, Biopsy D) - Esophagus, Mid, Biopsy Performed By: #### 6 6121-5 ####[facility] [id number] [address] OF [place] DIAGNOSIS COMMENT Normal [facility] Comment on above: Order Comment: Speci men Type: TISSUE SPECIMENOrdering Facility: [facility] Address: [address] [place] [address] Result Comment: B. A n immunohistochemical stain for Helicobacter is negative. C. A p53 immunostain shows a normal (wild-type) staining pattern. This biopsy was reviewed in consultation with my colleague Dr. Phillips, who concurs. Laboratory Developed Test (LDT) Disclaimer: Performance characteristics of immunohistochemical, immunofluorescent and chromogenic in-situ hybridization tests have been determined by the performing laboratory within [facility]???s [facility] and Laboratory Medicine Department ([facility], [facility], [facility], [facility], [facility], [facility], or [facility]) in a manner consistent with CLIA requirements. One or more of these tests have not been cleared or approved by the FDA. [facility] is regulated under CLIA as qualified to perform high-complexity testing. These tests are used for clinical purposes. They should not be regarded as investigational or for research. Positive and negative controls stain appropriately. Performed By: #### 6 6121-5 ####[facility] [id number] [address] OF [facility] FINAL DIAGNOSIS Normal [facility] Comment on above: Order Comment: Speci men Type: TISSUE SPECIMENOrdering Facility: [facility] Address: [address] [place] [address] Result Comment: A. S mall bowel, duodenum, biopsy: - Duodenal mucosa within normal limits. B. Stomach, antrum, biopsy: - Antral mucosa with mild reactive changes. - No morphologic evidence of Helicobacter. C. Esophagus, distal, biopsy: - Squamous mucosa with reactive changes and increased intraepithelial eosinophils (up to 20 eosinophils per high power field). - Cardia-type mucosa with active and chronic inflammation, negative for intestinal metaplasia. D. Esophagus, mid, biopsy: - Squamous mucosa with reactive changes. - No increase in intraepithelial eosinophils identified. at 1619 EDT Performed By: #### 6 6121-5 ####[facility] [id number] [address] OF [facility] FINAL PERFORMING LAB Normal [facility] Comment on above: Order Comment: Speci men Type: TISSUE SPECIMENOrdering Facility: [facility] Address: [address] [place] [address] Result Comment: Diag nostic interpretation performed at: [facility], [address] [place] [address], [facility] [place] [address] CLIA# [id number] Sheet Ironworker: Ryan Devries MD Performed By: #### 6 6121-5 ####[facility] [id number] [place] [address] [place] GROSS DESCRIPTION Normal [facility] Comment on above: Order Comment: Speci men Type: TISSUE SPECIMENOrdering Facility: [facility] Address: [address] [place] [address] Result Comment: A. S mall Bowel, Duodenum, Biopsy Received in formalin is one piece of ewing, soft tissue measuring 0.4 x 0.3 x 0.2 cm. Totally submitted in one cassette. B. Stomach, Antrum, Biopsy Received in formalin is one piece of ewing, soft tissue measuring 0.5 x 0.3 x 0.2 cm. Totally submitted in one cassette. C. Esophagus, Distal, Biopsy Received in formalin are multiple pieces of ewing-moreau, soft tissue aggregating to 1.6 x 0.2 x 0.2 cm. Totally submitted in one cassette. D. Esophagus, Mid, Biopsy Received in formalin is one piece of ewing-moreau, soft tissue measuring 0.6 x 0.2 x 0.1 cm. Totally submitted in one cassette. [facility] October 24, 2024 9:29 PM Gross examination performed at [facility], [address] [place] [address] Performed By: #### 6 6121-5 ####[facility] [id number] [place] [id number] [place] Upper GI endoscopyon 04-18-2 025 Upper GI endoscopy [facility] Gastrointestinal Endoscopy Patient Name: Maximus Bradley Procedure Date: 10/24/2024 11:20 AM Date of : 1975 Admit Type: Outpatient Age: 49 Gender: Female Note Status: Finalized Procedure: Upper GI endoscopy Indications: Heartburn, Gastro-esophageal reflux disease Providers: Kirk Cast MD Patient Profile: This is a 49 year old female. Refer to note in patient chart for documentation of history and physical. Referring Physician: Kirk Cast MD (Referring MD) Medicines: Fentanyl 50 micrograms IV, Midazolam 5 mg IV, Diphenhydramine 50 mg IV, Benzocaine spray Complications: No immediate complications. Estimated blood loss: Minimal. Requesting Provider: Procedure: Pre-Anesthesia Assessment: - Prior to the procedure, a History and Physical was performed, and patient medications and allergies were reviewed. The patient's tolerance of previous anesthesia was also reviewed. The risks and benefits of the procedure and the sedation options and risks were discussed with the patient. All questions were answered, and informed consent was obtained. Prior Anticoagulants: The patient has taken no anticoagulant or antiplatelet agents. ASA Grade Assessment: III - A patient with severe systemic disease. After reviewing the risks and benefits, the patient was deemed in satisfactory condition to undergo the procedure. After obtaining informed consent, the endoscope was passed under direct vision. Throughout the procedure, the patient's blood pressure, pulse, and oxygen saturations were monitored continuously. The Endosonoscope was introduced through the mouth, and advanced to the second part of duodenum. The upper GI endoscopy was accomplished without difficulty. The patient tolerated the procedure well. Moderate Sedation: The administration of moderate sedation was initiated at 11:39. Moderate (conscious) sedation was personally administered by the endoscopist. The following parameters were monitored: oxygen saturation, heart rate, blood pressure, respiratory rate, EKG, adequacy of pulmonary ventilation, and response to care. Total physician intraservice time was 10 minutes. Findings: The Z-line was variable and was found 34 cm from the incisors. This was biopsied with a cold forceps for histology. Diffuse moderate inflammation characterized by erythema and linear erosions was found in the prepyloric region of the stomach. Biopsies were taken with a cold forceps for Helicobacter pylori testing. The examined duodenum was normal. Biopsies for histology were taken with a cold forceps for evaluation of celiac disease. Impression: - Z-line variable, 34 cm from the incisors. Biopsied. - Gastritis, characterized by erythema and linear erosions. Biopsied. - Normal examined duodenum. Biopsied. Recommendation: - Patient has a contact number available for emergencies. The signs and symptoms of potential delayed complications were discussed with the patient. Return to normal activities tomorrow. Written discharge instructions were provided to the patient. - Resume previous diet. - Continue present medications. - Await pathology results. - Repeat upper endoscopy PRN for surveillance. - Return to nurse practitioner at appointment to be scheduled. Procedure Code(s): --- Professional --- 72386, Esophagogastroduodenoscopy, flexible, transoral; with biopsy, single or multiple G0500, Moderate sedation services provided by the same physician or other qualified health vp care management performing a gastrointestinal endoscopic service that sedation supports, requiring the presence of an independent trained observer to assist in the monitoring of the patient's level of consciousness and physiological status; initial 15 minutes of intra-service time; patient age 5 years or older (additional time may be reported with [address], as appropriate) Diagnosis Code(s): --- Professional --- K22.89, Other specified disease of esophagus K29.70, Gastritis, unspecified, without bleeding R12, Heartburn K21.9, Gastro-esophageal reflux disease without esophagitis CPT copyright 2020 [employer]. All rights reserved. The codes documented in this report are preliminary and upon vba programmer review may be revised to meet current compliance requirements. Attending Participation: I personally performed the entire procedure. Scope In: 11:45:03 AM Scope Out: 11:49:04 AM MD Kirk Dooley MD 10/24/2024 11:54:44 AM This report has been signed electronically by Kirk Cast MD Number of Addenda: 0 Note Initiated On: 10/24/2024 11:20 AM Estimated Blood Loss: Estimated blood loss was minimal. Normal [facility] MAXIM[facility] BRAD[facility] ([id number]) 1975 F Date Time Provider Department 10/22/24 ELMIRA MAYORGA During your visit today, we recorded the following information about you: Elmira Mayorga MSW 10/22/2024 11:[address] Hsu phone note for 10/20 regarding social work response to social work consult. Allergies As of Date: 10/22/2024 Noted Allergy Reaction BEE POLLEN 01/23/2019 10 - Anaphylaxis ADDERALL (DEXTROAMPHETAMINE-AMPHE* 9 - Itching AMPHETAMINE 12/13/2016 9 - Itching IMITREX (SUMATRIPTAN) 01/11/2015 14 - Other: See Comments Comments: palpitations Date Reviewed: 09/29/2024 Reviewed by: Ana Raymundo, [place] - Fully Assessed Prescriptions as of 10/22/2024 - buPROPion XL (WELLBUTRIN XL) 300 mg 24 hr tablet Take 1 tablet by mouth once daily. - topiramate (TOPAMAX) 25 mg capsule Take 2 capsules by mouth two times a day. - folic acid 1 mg tablet Take 1 tablet by mouth once daily. - VITAMIN D-3 50 mcg (2,000 unit) tablet TAKE 2 TABLETS (4000 UNITS) BY MOUTH ONCE DAILY - naratriptan (AMERGE) 2.5 mg tablet Take 1 tablet by mouth as directed. at the onset of headache; if headache returns or does not fully resolve, the dose may be repeated after 4 hours; do not exceed five(5) mg in 24 hours. NO more than 10 doses in a month. - famotidine (PEPCID) 20 mg tablet Take 1 tablet by mouth at bedtime as needed. - clotrimazole (LOTRIMIN) 1 % cream Apply BID to rash until rash goes away, and then continue for 1 more week. - cyanocobalamin (VITAMIN B-12) 1,000 mcg tab TAKE 1 TABLET BY MOUTH DAILY - busPIRone (BUSPAR) 5 mg tablet Take 1 tablet by mouth two times a day. - levothyroxine (SYNTHROID) 75 mcg tablet Take 1 tablet by mouth once daily. Take on empty stomach. For Thyroid - omeprazole (PRILOSEC) 40 mg capsule Take 1 capsule by mouth once daily. - loratadine (CLARITIN) 10 mg tablet Take 1 tablet by mouth once daily. - albuterol HFA (VENTOLIN HFA) 90 mcg/actuation inhaler Inhale 2 Puffs as instructed every 4 hours as needed for wheezing/shortness of breath. - venlafaxine (EFFEXOR) 100 mg tablet Take 1 tablet by mouth two times a day. - fluticasone (FLONASE) 50 mcg/actuation nasal spray Use 2 Sprays in each nostril once daily. Rinse mouth after use. Problem List As Of Date 10/22/2024 Noted Resolved Abdominal pain, epigastric [R10.13] 07/22/2013 Hypothyroidism [E03.9] 12/06/2010 Enlarged thyroid [E04.9] 12/06/2010 Diarrhea [R19.7] 07/22/2013 01/11/2015 Menorrhagia [N92.0] 10/07/2013 Migraines [G43.909] 01/04/2015 01/11/2015 Essential hypertension [I10] 01/04/2015 Migraine headache without aura [G43.009] 01/11/2015 Low blood sugar [E16.2] 03/29/2015 12/30/2019 Depression [F32.A] Moderate episode of recurrent major depressive *07/17/2023 Claudication (HCC) [I73.9] 07/17/2023 07/17/2023 Obesity [E66.9] 01/14/2024 Iron deficiency [E61.1] Disability, developmental [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 Daughter is trying to get POA for finances set up also. Daughter said her mother mental capacity is like a teen aged person, her grand mother took care of finances. Her mother can not get her social security check until another payee is set up. Please advise Leny Hsu MD 10/20/2024 3:20 PM Signed Do we have patient's permission to speak to daughter about her medical conditions? If so, I can place referral to social work to assist them with getting set up and can complete forms as necessary. Maya Hernandez, RN 10/20/2024 5:23 PM Signed Per Pt we are allowed to give medical information to her son Alex Stinson. He is trying to get guardianship of his mother, and talked with the clam bed laborer today. She would like to make him payee for her. I am sending this message through to , and I have updated the Contact section. I removed the mother and added Pts son with his information. Please get in contact about helping to fill out forms. Leny Hsu MD 10/21/2024 6:57 AM Signed Referral order placed for social work to assist. Elmira Mayorga, VALERY 10/21/2024 11:43 AM Signed Ann, I do not have Social Security Payee forms. Whomever is wanting to be payee, has to request those from Social Security. I can let patient son know this information. Is the [phone] the best number to reach patient son? Elmira Mayorga, STRINGING MACHINE TENDER 10/22/2024 11:42 AM Addendum Yvonne spoke with patient son Alex regarding payee question. Alex notes that he has an appt in November with [employer] in regards to applying to be patient payee. Alex noted patient current payee recently. Alex notes that [employer] told him that he should obtain letter from Dr. Hsu in regards to patient cognitive state and why she should have a payee. Yvonne will forward note back to Dr. Hsu to see what he says about writing letter for patient son. Yvonne can also send message to admin in regards to this request to see what is advised in regards to writing letter for son. Leny Hsu MD 10/22/2024 11:48 AM Signed Reviewed. Will wait to hear from legal. Allergies As of Date: 10/20/2024 Noted Allergy Reaction BEE POLLEN 01/23/2019 10 - Anaphylaxis ADDERALL (DEXTROAMPHETAMINE-AMPHE* 9 - Itching AMPHETAMINE 12/13/2016 9 - Itching IMITREX (SUMATRIPTAN) 01/11/2015 14 - Other: See Comments Comments: palpitations Date Reviewed: 09/29/2024 Reviewed by: Ana Raymundo RN - Fully Assessed Reason for Visit: letter for Social Security [Other] Primary Visit Diagnosis:Disability, developmental [F89] Order(s):PRIMARY CARE SOCIAL WORK CONSULT [[id number]] Order #: [id number]: 1 Prescriptions as of 11/28/2024 - omeprazole (PRILOSEC) 40 mg capsule Take 1 capsule by mouth two times a day for 28 days. - busPIRone (BUSPAR) 5 mg tablet Take 1 tablet by mouth two times a day. - levothyroxine (SYNTHROID) 75 mcg tablet Take 1 tablet by mouth once daily. Take on empty stomach. For Thyroid - venlafaxine (EFFEXOR) 75 mg tablet Take 1 tablet by mouth three times a day. - buPROPion XL (WELLBUTRIN XL) 300 mg 24 hr tablet Take 1 tablet by mouth once daily. - topiramate (TOPAMAX) 25 mg capsule Take 2 capsules by mouth two times a day. - folic acid 1 mg tablet Take 1 tablet by mouth once daily. - VITAMIN D-3 50 mcg (2,000 unit) tablet TAKE 2 TABLETS (4000 UNITS) BY MOUTH ONCE DAILY - naratriptan (AMERGE) 2.5 mg tablet Take 1 tablet by mouth as directed. at the onset of headache; if headache returns or does not fully resolve, the dose may be repeated after 4 hours; do not exceed five(5) mg in 24 hours. NO more than 10 doses in a month. - famotidine (PEPCID) 20 mg tablet Take 1 tablet by mouth at bedtime as needed. - clotrimazole (LOTRIMIN) 1 % cream Apply BID to rash until rash goes away, and then continue for 1 more week. - cyanocobalamin (VITAMIN B-12) 1,000 mcg tab TAKE 1 TABLET BY MOUTH DAILY - loratadine (CLARITIN) 10 mg tablet Take 1 tablet by mouth once daily. - albuterol HFA (VENTOLIN HFA) 90 mcg/actuation inhaler Inhale 2 Puffs as instructed every 4 hours as needed for wheezing/shortness of breath. - fluticasone (FLONASE) 50 mcg/actuation nasal spray Use 2 Sprays in each nostril once daily. Rinse mouth after use. Problem List As Of Date 10/20/2024 Noted Resolved Abdominal pain, epigastric [R10.13] 07/22/2013 Hypothyroidism [E03.9] 12/06/2010 Enlarged thyroid [E04.9] 12/06/2010 D (more content not included)... Normal [facility] MAXIMUS BRADLEY ([id number]) 1975 F Date Time Provider Department 10/16/24 LENY HSU [facility] During your visit today, we recorded the following information about you: Olivia Hunt LPN 10/16/2024 3:06 PM Signed Electronic PA rec'd and completed for topamax. This was approved. Prior authorization approved Payer: [facility] Note from payer: Your PA request for [id number] was approved for 365 days. The PA# assigned is [id number]. Approval Details Authorization number: [id number] Authorized from October 16, 2024 to October 15, 2025 Electronic appeal: Not supported View History Medication Being Authorized topiramate (TOPAMAX) 25 mg capsule Take 2 capsules by mouth two times a day. Dispense: 360 capsule Refills: 1 Start: 10/16/2024 End: 04/14/2025 Class: Normal Diagnoses: Migraine without aura and without status migrainosus, not intractable This order has been released to its destination. To be filled at: [facility] [place] - [address] [place] [address] - [address] [phone] Allergies As of Date: 10/16/2024 Noted Allergy Reaction BEE POLLEN 01/23/2019 10 - Anaphylaxis ADDERALL (DEXTROAMPHETAMINE-AMPHE* 9 - Itching AMPHETAMINE 12/13/2016 9 - Itching IMITREX (SUMATRIPTAN) 01/11/2015 14 - Other: See Comments Comments: palpitations Date Reviewed: 09/29/2024 Reviewed by: Ana Raymundo RN - Fully Assessed Reason for Visit: Insurance Authorization [[id number]] Prescriptions as of 10/16/2024 - buPROPion XL (WELLBUTRIN XL) 300 mg 24 hr tablet Take 1 tablet by mouth once daily. - topiramate (TOPAMAX) 25 mg capsule Take 2 capsules by mouth two times a day. - folic acid 1 mg tablet Take 1 tablet by mouth once daily. - VITAMIN D-3 50 mcg (2,000 unit) tablet TAKE 2 TABLETS (4000 UNITS) BY MOUTH ONCE DAILY - naratriptan (AMERGE) 2.5 mg tablet Take 1 tablet by mouth as directed. at the onset of headache; if headache returns or does not fully resolve, the dose may be repeated after 4 hours; do not exceed five(5) mg in 24 hours. NO more than 10 doses in a month. - famotidine (PEPCID) 20 mg tablet Take 1 tablet by mouth at bedtime as needed. - clotrimazole (LOTRIMIN) 1 % cream Apply BID to rash until rash goes away, and then continue for 1 more week. - cyanocobalamin (VITAMIN B-12) 1,000 mcg tab TAKE 1 TABLET BY MOUTH DAILY - busPIRone (BUSPAR) 5 mg tablet Take 1 tablet by mouth two times a day. - levothyroxine (SYNTHROID) 75 mcg tablet Take 1 tablet by mouth once daily. Take on empty stomach. For Thyroid - omeprazole (PRILOSEC) 40 mg capsule Take 1 capsule by mouth once daily. - loratadine (CLARITIN) 10 mg tablet Take 1 tablet by mouth once daily. - albuterol HFA (VENTOLIN HFA) 90 mcg/actuation inhaler Inhale 2 Puffs as instructed every 4 hours as needed for wheezing/shortness of breath. - venlafaxine (EFFEXOR) 100 mg tablet Take 1 tablet by mouth two times a day. - fluticasone (FLONASE) 50 mcg/actuation nasal spray Use 2 Sprays in each nostril once daily. Rinse mouth after use. Problem List As Of Date 10/16/2024 Noted Resolved Abdominal pain, epigastric [R10.13] 07/22/2013 Hypothyroidism [E03.9] 12/06/2010 Enlarged thyroid [E04.9] 12/06/2010 Diarrhea [R19.7] 07/22/2013 01/11/2015 Menorrhagia [N92.0] 10/07/2013 Migraines [G43.909] 01/04/2015 01/11/2015 Essential hypertension [I10] 01/04/2015 Migraine headache without aura [G43.009] 01/11/2015 Low blood sugar [E16.2] 03/29/2015 12/30/2019 Depression [F32.A] Moderate episode of recurrent major depressive *07/17/2023 Claudication (HCC) [I73.9] 07/17/2023 07/17/2023 Obesity [E66.9] 01/14/2024 Iron deficiency [E61.1] Encounter Status:Closed by OLIVIA HUNT on 10/16/24 [facility] CNOVon 09-29-2024 CNOV Office Visit (GENSWS ) MAXIMUS BRADLEY ([id number]) 1975 F Date Time Provider Department 09/29/24 1:00 PM KIRK CAST During your visit today, we recorded the following information about you: Kirk Cast MD 09/29/2024 2:40 PM Signed HISTORY AND PHYSICAL Maximus Bradley 1975 REFERRING PHYSICIAN: Jordin Dickerson MD CHIEF COMPLAINT: Follow Up (6 month follow up mamm) HPI: The patient is a 49 year old female referred for endoscopy. Maxmius notes no history of colon complaints. The patient notes the following upper complaints: Maximus denies abdominal pain.. Maximus notes heartburn. Maximus denies dysphagia. Maximus denies a history of ulcers/ peptic ulcer disease. Maximus has undergone prior endoscopy. 2021 The patient is being seen by me today at the request of Dr. Dickerson for my opinion and advice regarding Hiatal hernia (primary encounter diagnosis) Gastroesophageal reflux disease, unspecified whether esophagitis present. PAST MEDICAL HISTORY Diagnosis Date Abdominal pain, epigastric Abnormal mammogram 09/14/2016 Acute gastritis without mention of hemorrhage Anxiety Chest pain Class 1 obesity due to excess calories without serious comorbidity with body mass index (BMI) of 34.0 to 34.9 in adult Depression Disability, developmental Enlarged thyroid Gastroesophageal reflux disease with esophagitis without hemorrhage Hypothyroidism Iron deficiency LLQ pain 10/07/2013 Low blood sugar 03/29/2015 Migraines [facility] neurology Obesity Plantar warts Reflux esophagitis Thrombocytosis Urinary retention Pablo [facility] PAST SURGICAL HISTORY Procedure Laterality Date BX OF BREAST; INCISIONAL Left 09/05/2023 COLONOSCOPY 11/28/2021 repeat in 10 years DILATION AND CURETTAGE DXAND/THER NONOBSTETRIC EGD W/O BRSH SPEC VARICIES INJ 01/30/2022 ESOPHAGOGASTRODUODENOSCOPY TRANSORAL DIAGNOSTIC 07/04/2005 EGD FNA WITH IMAGING Right 09/26/2016 U/S FNA UOQ right breast LIG/TRNSXJ FLP TUBE ABDL/VAG APPR UNI/BI Tubal ligation Current Outpatient Medications Medication Sig VITAMIN D-3 50 mcg (2,000 unit) tablet TAKE 2 TABLETS (4000 UNITS) BY MOUTH ONCE DAILY naratriptan (AMERGE) 2.5 mg tablet Take 1 tablet by mouth as directed. at the onset of headache; if headache returns or does not fully resolve, the dose may be repeated after 4 hours; do not exceed five(5) mg in 24 hours. NO more than 10 doses in a month. famotidine (PEPCID) 20 mg tablet Take 1 tablet by mouth at bedtime as needed. clotrimazole (LOTRIMIN) 1 % cream Apply BID to rash until rash goes away, and then continue for 1 more week. cyanocobalamin (VITAMIN B-12) 1,000 mcg tab TAKE 1 TABLET BY MOUTH DAILY busPIRone (BUSPAR) 5 mg tablet Take 1 tablet by mouth two times a day. levothyroxine (SYNTHROID) 75 mcg tablet Take 1 tablet by mouth once daily. Take on empty stomach. For Thyroid omeprazole (PRILOSEC) 40 mg capsule Take 1 capsule by mouth once daily. buPROPion XL (WELLBUTRIN XL) 300 mg 24 hr tablet Take 1 tablet by mouth once daily. loratadine (CLARITIN) 10 mg tablet Take 1 tablet by mouth once daily. albuterol HFA (VENTOLIN HFA) 90 mcg/actuation inhaler Inhale 2 Puffs as instructed every 4 hours as needed for wheezing/shortness of breath. venlafaxine (EFFEXOR) 100 mg tablet Take 1 tablet by mouth two times a day. folic acid 1 mg tablet Take 1 tablet by mouth once daily. topiramate (TOPAMAX) 25 mg capsule Take 2 capsules by mouth two times a day. fluticasone (FLONASE) 50 mcg/actuation nasal spray Use 2 Sprays in each nostril once daily. Rinse mouth after use. No current facility-administered medications for this visit. ALLERGIES: Bee Pollen, Adderall [Dextroamphetamine-Amphetami ne], Amphetamine, and Imitrex [Sumatriptan] PERSONAL HISTORY: Social History Tobacco Use Smoking status: Former Current packs/day: 1.00 Types: Cigarettes Smokeless tobacco: Former Quit date: 04/25/2015 Vaping Use Vaping status: Never Used Substance Use Topics Alcohol use: Yes Comment: less than weekly use Drug use: Never FAMILY HISTORY: FAMILY HISTORY Adopted: Yes Problem Relation Age of Onset Cancer Father lung Heart disease Sister No Known Problems Brother No Known Problems Brother other (Liver Disease) Paternal Grandmother Migraines Paternal Grandmother Cancer Paternal Grandfather Lung No Known Problems Son Cancer Paternal Uncle Throat No Ocular Disease No Family History REVIEW OF SYMPTOMS: The review of systems data was entered by the nurse and reviewed by me There are no exam notes on file for this visit. PHYSICAL EXAMINATION: General: The patient is 49 year old female, well nourished, well hydrated in no acute distress. The patient is oriented to time, place, and person. VITALS: Last menstrual period 11/29/2023. There is no height or weight on jihan (more content not included)... Normal [facility] DBT Breast - bilateral diagn ostic for implanton 09-24-2024 IMPRESSION: Finding 1: The 0.4 cm stable oval parallel lesion in the left breast at 11 o'clock, middle depth, 2 cm from the nipple is probably benign. Follow-up with diagnostic ultrasound is recommended in 6 months. Finding 2: The 0.8 cm stable oval parallel lesion in the left breast at 1 o'clock, middle depth, 9 cm from the nipple is probably benign. Follow-up with diagnostic ultrasound is recommended in 6 months. BI-RADS Category 3: Probably Benign RISK: Based on the Tyrer-Cuzick (TC) risk assessment model, this patient has a 6.3% lifetime risk of developing breast cancer, meaning they are at average risk for developing breast cancer. However, this is only an estimate based on available history provided on the patient's questionnaire. We encourage all patients to talk with their providers about these results, further recommendations for managing breast health, and appropriate supplemental screening options if the patient has dense breast tissue. Interpreting Radiologist: Kirk Maciel M.D. Electronically signed on: 09/24/2024 Parking Control Officer: PHILIPPE [employer] Date/Time: Sep 24 2024 10:53A Dictated by: KIRK MACIEL MD This examination was interpreted and the report reviewed and electronically signed by: KIRK MACIEL MD on Sep 24 2024 12:13PM [facility] DIVISION OF RADIOLOGY * * *Final Report* * * DATE OF EXAM: Sep 24 2024 11:20AM [facility] 0627 - [facility] DIDIER LAO AMELIA / PROCEDURE REASON: multiple diagnoses * * * * Physician Interpretation * * * * RESULT: [facility] [address] [place] [address] #[id number] - [facility] DIDIER W LAURA LT #[id number] - [facility] US BREAST LTD LT HISTORY: 49 year-old patient seen for diagnostic evaluation of the finding(s) described on prior mammogram and short term follow-up from a previous mammogram in the left breast. Patient states no personal history of breast cancer. COMPARISON STUDIES: The present examination has been compared to prior imaging studies dated 07/25/2023 (ultrasound), 07/25/2023 (mammogram), 09/05/2023 (ultrasound) and 09/05/2023 (mammogram). MAMMOGRAM TECHNIQUE: The study was acquired using full field digital technology and interpreted from soft copy. Digital Breast Tomosynthesis (DBT) images were obtained and used to assist in the interpretation of this examination. MAMMOGRAM FINDINGS: There are scattered areas of fibroglandular density. A biopsy clip is noted within the left breast. No suspicious masses or calcifications in either breast. ULTRASOUND TECHNIQUE: Targeted ultrasound of the indicated area was performed. Moreau scale images were saved. ULTRASOUND FINDINGS: Finding 1: There is a stable oval parallel lesion measuring 0.4 cm in the left breast at 11 o'clock, middle depth, 2 cm from the nipple. Finding 2: There is a stable oval parallel lesion measuring 0.8 cm in the left breast at 1 o'clock, middle depth, 9 cm from the nipple. Internal echotexture is hypoechoic. DIVISION OF RADIOLOGY Provider, [facility] - 09/24/2024 * * *Final Report* * * DATE OF EXAM: Sep 24 2024 11:20AM [facility] 0627 - [facility] DIDIER SANCHEZ AMELIA / PROCEDURE REASON: multiple diagnoses * * * * Physician Interpretation * * * * RESULT: [place] [address] #[id number] - [facility] DIDIER Clark LAURA LT #[id number] - [facility] BREAST LTD LT HISTORY: 49 year-old patient seen for diagnostic evaluation of the finding(s) described on prior mammogram and short term follow-up from a previous mammogram in the left breast. Patient states no personal history of breast cancer. COMPARISON STUDIES: The present examination has been compared to prior imaging studies dated 07/25/2023 (ultrasound), 07/25/2023 (mammogram), 09/05/2023 (ultrasound) and 09/05/2023 (mammogram). MAMMOGRAM TECHNIQUE: The study was acquired using full field digital technology and interpreted from soft copy. Digital Breast Tomosynthesis (DBT) images were obtained and used to assist in the interpretation of this examination. MAMMOGRAM FINDINGS: There are scattered areas of fibroglandular density. A biopsy clip is noted within the left breast. No suspicious masses or calcifications in either breast. ULTRASOUND TECHNIQUE: Targeted ultrasound of the indicated area was performed. Moreau scale images were saved. ULTRASOUND FINDINGS: Finding 1: There is a stable oval parallel lesion measuring 0.4 cm in the left breast at 11 o'clock, middle depth, 2 cm from the nipple. Finding 2: There is a stable oval parallel lesion measuring 0.8 cm in the left breast at 1 o'clock, middle depth, 9 cm from the nipple. Internal echotexture is hypoechoic. IMPRESSION IMPRESSION: Finding 1: The 0.4 cm stable oval parallel lesion in the left breast at 11 o'clock, middle depth, 2 cm from the nipple is probably benign. Follow-up with diagnostic ultrasound is recommended in 6 months. Finding 2: The 0.8 cm stable oval parallel lesion in the left breast at 1 o'clock, middle depth, 9 cm from the nipple is probably benign. Follow-up with diagnostic ultrasound is recommended in 6 months. BI-RADS Category 3: Probably Benign RISK: Based on the Tyrer-Cuzick (TC) risk assessment model, this patient has a 6.3% lifetime risk of developing breast cancer, meaning they are at average risk for developing breast cancer. However, this is only an estimate based on available history provided on the patient's questionnaire. We encourage all patients to talk with their providers about these results, further recommendations for managing breast health, and appropriate supplemental screening options if the patient has dense breast tissue. Interpreting Radiologist: Kirk Maciel M.D. Electronically signed on: 09/24/2024 Parking Control Officer: PHILIPPE Transcribe Date/Time: Sep 24 2024 10:53A Dictated by: KIRK MACIEL MD This examination was interpreted and the report reviewed and electronically signed by: KIRK MACIEL MD on Sep 24 2024 12:13PM [facility] DIDIER Clark LAURA [place] 2024 [facility] DIDIER W LAURA AMELIA * * *Final Report* * * DATE OF EXAM: Sep 24 2024 11:20AM [facility] 0627 - [facility] DIDIER W LAURA AMELIA / PROCEDURE REASON: multiple diagnoses * * * * Physician Interpretation * * * * RESULT: [facility] [address] [place] [address] #[id number] - [facility] DIDIER SANCHEZ LT #[id number] - [facility] US BREAST LTD LT HISTORY: 49 year-old patient seen for diagnostic evaluation of the finding(s) described on prior mammogram and short term follow-up from a previous mammogram in the left breast. Patient states no personal history of breast cancer. COMPARISON STUDIES: The present examination has been compared to prior imaging studies dated 07/25/2023 (ultrasound), 07/25/2023 (mammogram), 09/05/2023 (ultrasound) and 09/05/2023 (mammogram). MAMMOGRAM TECHNIQUE: The study was acquired using full field digital technology and interpreted from soft copy. Digital Breast Tomosynthesis (DBT) images were obtained and used to assist in the interpretation of this examination. MAMMOGRAM FINDINGS: There are scattered areas of fibroglandular density. A biopsy clip is noted within the left breast. No suspicious masses or calcifications in either breast. ULTRASOUND TECHNIQUE: Targeted ultrasound of the indicated area was performed. Moreau scale images were saved. ULTRASOUND FINDINGS: Finding 1: There is a stable oval parallel lesion measuring 0.4 cm in the left breast at 11 o'clock, middle depth, 2 cm from the nipple. Finding 2: There is a stable oval parallel lesion measuring 0.8 cm in the left breast at 1 o'clock, middle depth, 9 cm from the nipple. Internal echotexture is hypoechoic. IMPRESSION: Finding 1: The 0.4 cm stable oval parallel lesion in the left breast at 11 o'clock, middle depth, 2 cm from the nipple is probably benign. Follow-up with diagnostic ultrasound is recommended in 6 months. Finding 2: The 0.8 cm stable oval parallel lesion in the left breast at 1 o'clock, middle depth, 9 cm from the nipple is probably benign. Follow-up with diagnostic ultrasound is recommended in 6 months. BI-RADS Category 3: Probably Benign RISK: Based on the Tyrer-Cuzick (TC) risk assessment model, this patient has a 6.3% lifetime risk of developing breast cancer, meaning they are at average risk for developing breast cancer. However, this is only an estimate based on available history provided on the patient's questionnaire. We encourage all patients to talk with their providers about these results, further recommendations for managing breast health, and appropriate supplemental screening options if the patient has dense breast tissue. Interpreting Radiologist: Kirk Maciel M.D. Electronically signed on: 09/24/2024 Parking Control Officer: PHILIPPE Transcribe Date/Time: Sep 24 2024 10:53A Dictated by: KIRK MACIEL MD This examination was interpreted and the report reviewed and electronically signed by: KIRK MACIEL MD on Sep 24 2024 12:13PM EST [id number] Normal [facility] PAR[facility] US BREAST LTD LTon 09-24 [facility] US BREAST LTD LT * * *Final Report* * * DATE OF EXAM: Sep 24 2024 11:58AM [facility] 0593 - [employer] BREAST LTD LT / PROCEDURE REASON: multiple diagnoses * * * * Physician Interpretation * * * * [facility] [place] [address] #[id number] - [facility] DIAG W LAURA LT #[id number] - [facility] [employer] BREAST LTD LT HISTORY: 49 year-old patient seen for diagnostic evaluation of the finding(s) described on prior mammogram and short term follow-up from a previous mammogram in the left breast. Patient states no personal history of breast cancer. COMPARISON STUDIES: The present examination has been compared to prior imaging studies dated 07/25/2023 (ultrasound), 07/25/2023 (mammogram), 09/05/2023 (ultrasound) and 09/05/2023 (mammogram). MAMMOGRAM TECHNIQUE: The study was acquired using full field digital technology and interpreted from soft copy. Digital Breast Tomosynthesis (DBT) images were obtained and used to assist in the interpretation of this examination. MAMMOGRAM FINDINGS: There are scattered areas of fibroglandular density. A biopsy clip is noted within the left breast. No suspicious masses or calcifications in either breast. ULTRASOUND TECHNIQUE: Targeted ultrasound of the indicated area was performed. Moreau scale images were saved. ULTRASOUND FINDINGS: Finding 1: There is a stable oval parallel lesion measuring 0.4 cm in the left breast at 11 o'clock, middle depth, 2 cm from the nipple. Finding 2: There is a stable oval parallel lesion measuring 0.8 cm in the left breast at 1 o'clock, middle depth, 9 cm from the nipple. Internal echotexture is hypoechoic. IMPRESSION: Finding 1: The 0.4 cm stable oval parallel lesion in the left breast at 11 o'clock, middle depth, 2 cm from the nipple is probably benign. Follow-up with diagnostic ultrasound is recommended in 6 months. Finding 2: The 0.8 cm stable oval parallel lesion in the left breast at 1 o'clock, middle depth, 9 cm from the nipple is probably benign. Follow-up with diagnostic ultrasound is recommended in 6 months. BI-RADS Category 3: Probably Benign RISK: Based on the Tyrer-Cuzick (TC) risk assessment model, this patient has a 6.3% lifetime risk of developing breast cancer, meaning they are at average risk for developing breast cancer. However, this is only an estimate based on available history provided on the patient's questionnaire. We encourage all patients to talk with their providers about these results, further recommendations for managing breast health, and appropriate supplemental screening options if the patient has dense breast tissue. Interpreting Radiologist: Kirk Maciel M.D. Electronically signed on: 09/24/2024 Parking Control Officer: PHILIPPE Transcribe Date/Time: Sep 24 2024 11:58A Dictated by : KIRK MACIEL MD This examination was interpreted and the report reviewed and electronically signed by: KIRK MACIEL MD on Sep 24 2024 12:13PM EST [id number] Normal [facility] No Panel InformationOrdered By: [facility] Provider on 09-24-2024 [facility] No Panel Informationon 09-24 Radiology Study observation (narrative) [facility] US Breast - left limitedon 0 09-24-2024 IMPRESSION: Finding 1: The 0.4 cm stable oval parallel lesion in the left breast at 11 o'clock, middle depth, 2 cm from the nipple is probably benign. Follow-up with diagnostic ultrasound is recommended in 6 months. Finding 2: The 0.8 cm stable oval parallel lesion in the left breast at 1 o'clock, middle depth, 9 cm from the nipple is probably benign. Follow-up with diagnostic ultrasound is recommended in 6 months. BI-RADS Category 3: Probably Benign RISK: Based on the Tyrer-Cuzick (TC) risk assessment model, this patient has a 6.3% lifetime risk of developing breast cancer, meaning they are at average risk for developing breast cancer. However, this is only an estimate based on available history provided on the patient's questionnaire. We encourage all patients to talk with their providers about these results, further recommendations for managing breast health, and appropriate supplemental screening options if the patient has dense breast tissue. Interpreting Radiologist: Kirk Maciel M.D. Electronically signed on: 09/24/2024 Parking Control Officer: PHILIPPE Transcribe Date/Time: Sep 24 2024 11:58A Dictated by : KIRK MACIEL MD This examination was interpreted and the report reviewed and electronically signed by: KIRK MACIEL MD on Sep 24 2024 12:13PM [facility] DIVISION OF RADIOLOGY * * *Final Report* * * DATE OF EXAM: Sep 24 2024 11:58AM [facility] 0593 - [facility] [employer] LT / PROCEDURE REASON: multiple diagnoses * * * * Physician Interpretation * * * * [place] [address] #[id number] - [facility] DIDIER Clark [facility] #[id number] - [facility] CRAiLAR HISTORY: 49 year-old patient seen for diagnostic evaluation of the finding(s) described on prior mammogram and short term follow-up from a previous mammogram in the left breast. Patient states no personal history of breast cancer. COMPARISON STUDIES: The present examination has been compared to prior imaging studies dated 07/25/2023 (ultrasound), 07/25/2023 (mammogram), 09/05/2023 (ultrasound) and 09/05/2023 (mammogram). MAMMOGRAM TECHNIQUE: The study was acquired using full field digital technology and interpreted from soft copy. Digital Breast Tomosynthesis (DBT) images were obtained and used to assist in the interpretation of this examination. MAMMOGRAM FINDINGS: There are scattered areas of fibroglandular density. A biopsy clip is noted within the left breast. No suspicious masses or calcifications in either breast. ULTRASOUND TECHNIQUE: Targeted ultrasound of the indicated area was performed. Moreau scale images were saved. ULTRASOUND FINDINGS: Finding 1: There is a stable oval parallel lesion measuring 0.4 cm in the left breast at 11 o'clock, middle depth, 2 cm from the nipple. Finding 2: There is a stable oval parallel lesion measuring 0.8 cm in the left breast at 1 o'clock, middle depth, 9 cm from the nipple. Internal echotexture is hypoechoic. DIVISION OF RADIOLOGY Provider, Solomon Vallecillo - 09/24/2024 * * *Final Report* * * DATE OF EXAM: Sep 24 2024 11:58AM [facility] 0593 - [facility] [employer] BREAST [employer] LT / PROCEDURE REASON: multiple diagnoses * * * * Physician Interpretation * * * * [place] [address] #[id number] - [facility] DIDIER Clark LAURA LT #[id number] - [facility] [employer] HISTORY: 49 year-old patient seen for diagnostic evaluation of the finding(s) described on prior mammogram and short term follow-up from a previous mammogram in the left breast. Patient states no personal history of breast cancer. COMPARISON STUDIES: The present examination has been compared to prior imaging studies dated 07/25/2023 (ultrasound), 07/25/2023 (mammogram), 09/05/2023 (ultrasound) and 09/05/2023 (mammogram). MAMMOGRAM TECHNIQUE: The study was acquired using full field digital technology and interpreted from soft copy. Digital Breast Tomosynthesis (DBT) images were obtained and used to assist in the interpretation of this examination. MAMMOGRAM FINDINGS: There are scattered areas of fibroglandular density. A biopsy clip is noted within the left breast. No suspicious masses or calcifications in either breast. ULTRASOUND TECHNIQUE: Targeted ultrasound of the indicated area was performed. Moreau scale images were saved. ULTRASOUND FINDINGS: Finding 1: There is a stable oval parallel lesion measuring 0.4 cm in the left breast at 11 o'clock, middle depth, 2 cm from the nipple. Finding 2: There is a stable oval parallel lesion measuring 0.8 cm in the left breast at 1 o'clock, middle depth, 9 cm from the nipple. Internal echotexture is hypoechoic. IMPRESSION IMPRESSION: Finding 1: The 0.4 cm stable oval parallel lesion in the left breast at 11 o'clock, middle depth, 2 cm from the nipple is probably benign. Follow-up with diagnostic ultrasound is recommended in 6 months. Finding 2: The 0.8 cm stable oval parallel lesion in the left breast at 1 o'clock, middle depth, 9 cm from the nipple is probably benign. Follow-up with diagnostic ultrasound is recommended in 6 months. BI-RADS Category 3: Probably Benign RISK: Based on the Tyrer-Cuzick (TC) risk assessment model, this patient has a 6.3% lifetime risk of developing breast cancer, meaning they are at average risk for developing breast cancer. However, this is only an estimate based on available history provided on the patient's questionnaire. We encourage all patients to talk with their providers about these results, further recommendations for managing breast health, and appropriate supplemental screening options if the patient has dense breast tissue. Interpreting Radiologist: Kirk Maciel M.D. Electronically signed on: 09/24/2024 Parking Control Officer: PHILIPPE Transcribe Date/Time: Sep 24 2024 11:58A Dictated by : KIRK MACIEL MD This examination was interpreted and the report reviewed and electronically signed by: KIRK MACIEL MD on Sep 24 2024 12:13PM [facility] CNOVon 09-02-2024 CNOV Office Visit (FAMPWS ) MAXIMUS BRADLEY ([id number]) 1975 F Date Time Provider Department 09/02/24 1:00 PM LENY HSU FAMPWS During your visit today, we recorded the following information about you: Pulse Respiration Blood pressure Weight 88/minute 20/minute 128/86 97.5 kg Leny Hsu MD 09/02/2024 3:20 PM Signed Chief Complaint Patient presents with: Follow Up HPI Maximus Bradley is a 49 year old female who presents here today for routine follow up. Suprapubic pain from last OV resolved. Migraines have been rare on the Topamax. Using Amerge PRN for breakthrough which is working well for her. No known triggers for migraines. Needs refill today. Taking synthroid daily without side effects. TSH normal last October. Complaining of constipation and weight gain. Would like repeat labs. Anxiety and depression symptoms are improved with Wellbutrin, Effexor, and Buspar without side effects. Denies SI/HI, panic symptoms. Not seeing counseling and would like to continue current regimen. GERD: patient states that she is taking prilosec every morning and still gets heartburn at night. Would like adjustment to her regimen. Triggered by spicy foods or red sauces. Denies vomiting, dysphagia, odynophagia, hematochezia, melena. Requesting refill of clotrimazole cream in case rash under her breast returns. No rash today. Keeping area dry to prevent recurrence. Past medical history, appointments, medications, allergies reviewed. Previous Medical History PAST MEDICAL HISTORY Diagnosis Date Abdominal pain, epigastric Abnormal mammogram 09/14/2016 Acute gastritis without mention of hemorrhage Anxiety Chest pain Class 1 obesity due to excess calories without serious comorbidity with body mass index (BMI) of 34.0 to 34.9 in adult Depression Disability, developmental Enlarged thyroid Gastroesophageal reflux disease with esophagitis without hemorrhage Hypothyroidism Iron deficiency LLQ pain 10/07/2013 Low blood sugar 03/29/2015 Migraines [facility] neurology Obesity Plantar warts Reflux esophagitis Thrombocytosis Urinary retention Pablo Arrington Previous Surgical History PAST SURGICAL HISTORY Procedure Laterality Date BX OF BREAST; INCISIONAL Left 09/05/2023 COLONOSCOPY 11/28/2021 repeat in 10 years DILATION AND CURETTAGE DXAND/THER NONOBSTETRIC EGD W/O BRSH SPEC VARICIES INJ 01/30/2022 ESOPHAGOGASTRODUODENOSCOPY TRANSORAL DIAGNOSTIC 07/04/2005 EGD FNA WITH IMAGING Right 09/26/2016 U/S FNA UOQ right breast LIG/TRNSXJ FLP TUBE ABDL/VAG APPR UNI/BI Tubal ligation Family History FAMILY HISTORY Adopted: Yes Problem Relation Age of Onset Cancer Father lung Heart disease Sister No Known Problems Brother No Known Problems Brother other (Liver Disease) Paternal Grandmother Migraines Paternal Grandmother Cancer Paternal Grandfather Lung No Known Problems Son Cancer Paternal Uncle Throat No Ocular Disease No Family History Patient Allergies ALLERGIES Allergen Reactions Bee Pollen Anaphylaxis Adderall [Dextroamp* Itching Amphetamine Itching Imitrex [Sumatripta* Other: See Comments palpitations Current Medications Current Outpatient Medications on File Prior to Visit Medication Sig busPIRone (BUSPAR) 5 mg tablet Take 1 tablet by mouth two times a day. levothyroxine (SYNTHROID) 75 mcg tablet Take 1 tablet by mouth once daily. Take on empty stomach. For Thyroid omeprazole (PRILOSEC) 40 mg capsule Take 1 capsule by mouth once daily. buPROPion XL (WELLBUTRIN XL) 300 mg 24 hr tablet Take 1 tablet by mouth once daily. loratadine (CLARITIN) 10 mg tablet Take 1 tablet by mouth once daily. albuterol HFA (VENTOLIN HFA) 90 mcg/actuation inhaler Inhale 2 Puffs as instructed every 4 hours as needed for wheezing/shortness of breath. venlafaxine (EFFEXOR) 100 mg tablet Take 1 tablet by mouth two times a day. naratriptan (AMERGE) 2.5 mg tablet Take 1 tablet (2.5 mg) by mouth as directed. at the onset of headache; if headache returns or does not fully resolve, the dose may be repeated after 4 hours; do not exceed five(5) mg in 24 hours. NO more than 10 doses in a month. folic acid 1 mg tablet Take 1 tablet by mouth once daily. topiramate (TOPAMAX) 25 mg capsule Take 2 capsules by mouth two times a day. fluticasone (FLONASE) 50 mcg/actuation nasal spray Use 2 Sprays in each nostril once daily. Rinse mouth after use. clotrimazole (LOTRIMIN) 1 % cream Apply BID to rash until rash goes away, and then continue for 1 more week. VITAMIN D-3 50 mcg (2,000 unit) tablet TAKE 2 TABLETS (4000 UNITS) BY MOUTH ONCE DAILY cyanocobalamin (VITAMIN B-12) 1,000 mcg tab TAKE 1 TABLET BY MOUTH DAILY sucralfate (CARAFATE) 100 mg/mL suspension TAKE 10ML BY MOUTH TWICE A DAY (Patient not taking: Reported on 09/02/2024) No current facility-adminis (more content not included)... Normal [facility] TSH SerPl-aCncon 09-02-2024 TSH Qn 2.380 m[IU]/L Normal 0.270-4.[address] [facility] Comment on above: Order Comment: Speci men Type: BLOOD SPECIMENOrdering Facility: [facility] Address: [address] [place] [address] Result Comment: If t he patient is , TSH reference range varies by gestational period: First Trimester (weeks 9-12): 0.180-2.990 mIU/L Second Trimester: 0.110-3.980 mIU/L Third Trimester: 0.480-4.710 mIU/L Loc Sparrow et al. A Practical Approach for the Verifications and Determination of Site- and Trimester-Specific Reference Intervals for Thyroid Function tests in . Thyroid, 2019:29:3:412-420. Dominick Fernandez, et al. 2017 Guidelines of the [place] Thyroid Association for the Diagnosis and Management of Thyroid Disease during and the . Thyroid, 2017:27:3:315-389. Performed By: #### 3 016-3 ####[facility] LABORATORYCLIA [id number] [place] [address] [place] CNCOon 08-19-2024 CNCO Letter Text Normal [facility] CNPNon 08-08-2024 [facility] MAXIM[facility]AD[facility] ([id number]) 1975 F Date Time Provider Department 08/08/24 LENY HSU During your visit today, we recorded the following information about you: Keyla Arteaga LPN 08/08/2024 2:25 PM Signed ----- Message from Leny Hsu MD sent at 08/07/2024 8:49 PM EST ----- Xray of the abdomen is negative for signs of bowel obstruction. Small to moderate amount of stool noted. Continue treatment as discussed in office. Keyla Arteaga LPN 08/08/2024 2:29 PM Signed Phoned patient and she is not available. ESCOBAR Ashley Kathryn, MA 08/11/2024 10:08 AM Signed ----- Message from Leny Hsu MD sent at 08/07/2024 8:49 PM EST ----- Xray of the abdomen is negative for signs of bowel obstruction. Small to moderate amount of stool noted. Continue treatment as discussed in office. Marya Long MA 08/11/2024 10:09 AM Signed Pt notified and voiced understanding. Marya Long MA Allergies As of Date: 08/08/2024 Noted Allergy Reaction BEE POLLEN 01/23/2019 10 - Anaphylaxis ADDERALL (DEXTROAMPHETAMINE-AMPHE* 9 - Itching AMPHETAMINE 12/13/2016 9 - Itching IMITREX (SUMATRIPTAN) 01/11/2015 14 - Other: See Comments Comments: palpitations Date Reviewed: 08/06/2024 Reviewed by: Ruthie Burnham LPN - Fully Assessed Reason for Visit: Results [95] Prescriptions as of 08/11/2024 - buPROPion XL (WELLBUTRIN XL) 300 mg 24 hr tablet Take 1 tablet by mouth once daily. - loratadine (CLARITIN) 10 mg tablet Take 1 tablet by mouth once daily. - albuterol HFA (VENTOLIN HFA) 90 mcg/actuation inhaler Inhale 2 Puffs as instructed every 4 hours as needed for wheezing/shortness of breath. - venlafaxine (EFFEXOR) 100 mg tablet Take 1 tablet by mouth two times a day. - naratriptan (AMERGE) 2.5 mg tablet Take 1 tablet (2.5 mg) by mouth as directed. at the onset of headache; if headache returns or does not fully resolve, the dose may be repeated after 4 hours; do not exceed five(5) mg in 24 hours. NO more than 10 doses in a month. - folic acid 1 mg tablet Take 1 tablet by mouth once daily. - topiramate (TOPAMAX) 25 mg capsule Take 2 capsules by mouth two times a day. - sucralfate (CARAFATE) 100 mg/mL suspension TAKE 10ML BY MOUTH TWICE A DAY - omeprazole (PRILOSEC) 40 mg capsule Take 1 capsule by mouth once daily. - busPIRone (BUSPAR) 5 mg tablet Take 1 tablet by mouth two times a day. - levothyroxine (SYNTHROID) 75 mcg tablet Take 1 tablet by mouth once daily. Take on empty stomach. For Thyroid - fluticasone (FLONASE) 50 mcg/actuation nasal spray Use 2 Sprays in each nostril once daily. Rinse mouth after use. - clotrimazole (LOTRIMIN) 1 % cream Apply BID to rash until rash goes away, and then continue for 1 more week. - cyanocobalamin (VITAMIN B-12) 1,000 mcg tab Take 1 tablet by mouth once daily. - VITAMIN D-3 50 mcg (2,000 unit) tablet TAKE 2 TABLETS (4000 UNITS) BY MOUTH ONCE DAILY Problem List As Of Date 08/08/2024 Noted Resolved Abdominal pain, epigastric [R10.13] 07/22/2013 Hypothyroidism [E03.9] 12/06/2010 Enlarged thyroid [E04.9] 12/06/2010 Diarrhea [R19.7] 07/22/2013 01/11/2015 Menorrhagia [N92.0] 10/07/2013 Migraines [G43.909] 01/04/2015 01/11/2015 Essential hypertension [I10] 01/04/2015 Migraine headache without aura [G43.009] 01/11/2015 Low blood sugar [E16.2] 03/29/2015 12/30/2019 Depression [F32.A] Moderate episode of recurrent major depressive *07/17/2023 Claudication (HCC) [I73.9] 07/17/2023 07/17/2023 Obesity [E66.9] 01/14/2024 Iron deficiency [E61.1] Encounter Status:Closed by MARYA LONG on 08/11/[address] [facility] C-REACTIVE PROTEINon 025 CRP [Mass/Vol] 0.7 mg/dL NINF - 0.9 mg/dL [facility] CNPNon 08-07-2024 CNPN Telephone (FAMPWS) MAXIMUS BRADLEY ([id number]) 1975 F Date Time Provider Department 08/07/24 LENY HSU [facility] During your visit today, we recorded the following information about you: Leny Hsu MD 08/07/2024 9:02 PM Signed Normal labs aside from high platelets which have been stable for years. Iron levels and ferritin improved. May stop iron supplement and eat more iron rich foods. Ileana Wright LPN 08/08/2024 8:56 AM Signed Pts voice mail is full need to try back again. Maryam Grace 08/08/2024 10:03 AM Signed Pt called back and was informed of Jerson message. Pt voiced understanding and had not further questions at this time Allergies As of Date: 08/07/2024 Noted Allergy Reaction BEE POLLEN 01/23/2019 10 - Anaphylaxis ADDERALL (DEXTROAMPHETAMINE-AMPHE* 9 - Itching AMPHETAMINE 12/13/2016 9 - Itching IMITREX (SUMATRIPTAN) 01/11/2015 14 - Other: See Comments Comments: palpitations Date Reviewed: 08/06/2024 Reviewed by: Ruthie Burnham LPN - Fully Assessed Reason for Visit: Results [95] Prescriptions as of 08/08/2024 - buPROPion XL (WELLBUTRIN XL) 300 mg 24 hr tablet Take 1 tablet by mouth once daily. - loratadine (CLARITIN) 10 mg tablet Take 1 tablet by mouth once daily. - albuterol HFA (VENTOLIN HFA) 90 mcg/actuation inhaler Inhale 2 Puffs as instructed every 4 hours as needed for wheezing/shortness of breath. - venlafaxine (EFFEXOR) 100 mg tablet Take 1 tablet by mouth two times a day. - naratriptan (AMERGE) 2.5 mg tablet Take 1 tablet (2.5 mg) by mouth as directed. at the onset of headache; if headache returns or does not fully resolve, the dose may be repeated after 4 hours; do not exceed five(5) mg in 24 hours. NO more than 10 doses in a month. - folic acid 1 mg tablet Take 1 tablet by mouth once daily. - topiramate (TOPAMAX) 25 mg capsule Take 2 capsules by mouth two times a day. - sucralfate (CARAFATE) 100 mg/mL suspension TAKE 10ML BY MOUTH TWICE A DAY - omeprazole (PRILOSEC) 40 mg capsule Take 1 capsule by mouth once daily. - busPIRone (BUSPAR) 5 mg tablet Take 1 tablet by mouth two times a day. - levothyroxine (SYNTHROID) 75 mcg tablet Take 1 tablet by mouth once daily. Take on empty stomach. For Thyroid - fluticasone (FLONASE) 50 mcg/actuation nasal spray Use 2 Sprays in each nostril once daily. Rinse mouth after use. - clotrimazole (LOTRIMIN) 1 % cream Apply BID to rash until rash goes away, and then continue for 1 more week. - cyanocobalamin (VITAMIN B-12) 1,000 mcg tab Take 1 tablet by mouth once daily. - VITAMIN D-3 50 mcg (2,000 unit) tablet TAKE 2 TABLETS (4000 UNITS) BY MOUTH ONCE DAILY Problem List As Of Date 08/07/2024 Noted Resolved Abdominal pain, epigastric [R10.13] 07/22/2013 Hypothyroidism [E03.9] 12/06/2010 Enlarged thyroid [E04.9] 12/06/2010 Diarrhea [R19.7] 07/22/2013 01/11/2015 Menorrhagia [N92.0] 10/07/2013 Migraines [G43.909] 01/04/2015 01/11/2015 Essential hypertension [I10] 01/04/2015 Migraine headache without aura [G43.009] 01/11/2015 Low blood sugar [E16.2] 03/29/2015 12/30/2019 Depression [F32.A] Moderate episode of recurrent major depressive *07/17/2023 Claudication (HCC) [I73.9] 07/17/2023 07/17/2023 Obesity [E66.9] 01/14/2024 Iron deficiency [E61.1] Medications Discontinued During This Encounter Prescriptions - ferrous sulfate 325 mg (65 mg iron) tablet (Discontinued) Take 1 tablet by mouth once daily. Encounter Status:Closed by LISET SOLIS on 08/08/[address] [facility] CRP [Mass/Vol]on 08-07-2024 Interpretation and review of laboratory results Normal [facility] Comprehensive metabolic 2000 panelon 08-07-2024 Albumin [Mass/Vol] 4.2 g/dL 3.9 - 4.9 g/dL [facility] ALP [Catalytic activity/Vol] 100 U/L 34 - 123 U/L [facility] ALT [Catalytic activity/Vol] 18 U/L 7 - 38 U/L [facility] Anion gap [Moles/Vol] 13 mmol/L 8 - 15 mmol/L [facility] AST [Catalytic activity/Vol] 15 U/L 13 - 35 U/L [facility] Bilirubin [Mass/Vol] 0.3 mg/dL 0.2 - 1 .3 mg/dL [facility] Calcium [Mass/Vol] 9.4 mg/dL 8.5 - 10. 2 mg/dL [facility] Chloride [Moles/Vol] 106 mmol/L 98 - 10 7 mmol/L [facility] CO2 [Moles/Vol] 21 mmol/L Low 22 - 30 mmol/L [facility] Creatinine [Mass/Vol] 0.84 mg/dL 0.58 - 0.96 mg/dL [facility] GFR/1.73 sq M.predicted among non-blacks MDRD (S/P/Bld) [Vol rate/Area] 86 mL/min/{1.73_m2} - PINF [facility] Comment on above: Estimated Glomerular Filtration Rate (eGFR) is calculated using the 2020 CKD-EPI creatinine equation. This equation utilizes serum creatinine, sex, and age as parameters. The creatinine assay has traceable calibration to isotope dilution-mass spectrometry. Refer to KDIGO guidelines for clinical interpretation. In patients with unstable renal function, e.g. those with acute kidney injury, the eGFR may not accurately reflect actual GFR. Glucose [Mass/Vol] 87 mg/dL 74 - 99 mg/dL [facility] Comment on above: The [place] Diabete s Association (ADA) provides guidance for cutoff values for fasting glucose and random glucose. The ADA defines fasting as no caloric intake for at least 8 hours. Fasting plasma glucose results between 100 to 125 mg/dL indicate increased risk for diabetes (prediabetes). Fasting plasma glucose results greater than or equal to 126 mg/dL meet the criteria for diagnosis of diabetes. In the absence of unequivocal hyperglycemia, results should be confirmed by repeat testing. In a patient with classic symptoms of hyperglycemia or hyperglycemic crisis, random plasma glucose results greater than or equal to 200 mg/dL meet the criteria for diagnosis of diabetes. Reference: Standards of Medical Care in Diabetes 2016, [place] Diabetes Association. Diabetes Care. 2016.39(Suppl 1). Interpretation and review of laboratory results Abnormal [facility] Potassium [Moles/Vol] 4.0 mmol/L 3.7 - 5.1 mmol/L [facility] Protein [Mass/Vol] 6.6 g/dL 6.3 - 8.0 g/dL [facility] Sodium [Moles/Vol] 140 mmol/L 136 - 144 mmol/L [facility] Urea nitrogen [Mass/Vol] 9 mg/dL 7 - 21 mg/dL [facility] FERRITINon 08-07-2024 Ferritin [Mass/Vol] 66.9 ng/mL 14.7 - 205.1 ng/mL [facility] Iron and Iron binding capaci ty panelon 08-07-2024 Iron [Mass/Vol] 114 ug/dL 41 - 186 ug/dL [facility] Iron binding capacity [Mass/Vol] 282 ug/dL 232 - 386 ug/dL [facility] Iron/TIBC [Molar ratio] 40.4 % 15.0 - 57.0 % [facility] No Panel Informationon 08-07 Interpretation and review of laboratory results Normal [facility] XR Abdomen Supine and Uprigh ton 08-07-2024 IMPRESSION: Nonobstr uctive bowel gas pattern. Parking Control Officer: PSCB Transcribe Date/Time: Aug 07 2024 5:08P Dictated by : DARYA BINGHAM MD This examination was interpreted and the report reviewed and electronically signed by: DARYA BINGHAM MD on Aug 07 2024 5:10PM [facility] DIVISION OF RADIOLOGY * * *Final Report* * * DATE OF EXAM: Aug 06 2024 12:36PM [id number] - XR ABDOMEN 1V SUPINE / PROCEDURE REASON: Suprapubic pain, acute * * * * Physician Interpretation * * * * EXAM TITLE: XR ABDOMEN 1V SUPINE EXAM DATE/TIME: 08/06/2024 12:36 PM COMPARISON: None. CLINICAL INDICATION/HISTORY: Suprapubic pain. TECHNIQUE: AP views of the abdomen are presented. FINDINGS: No abnormally dilated bowel loops identified. Small to moderate amount of stool and gas noted in the large bowel loops. There are multiple phleboliths in the pelvis. A questionable 1 cm calcification in the pelvis. The bony structures appear intact. DIVISION OF RADIOLOGY Provider, [facility] - 08/07/2024 * * *Final Report* * * DATE OF EXAM: Aug 06 2024 12:36PM [id number] - XR ABDOMEN 1V SUPINE / PROCEDURE REASON: Suprapubic pain, acute * * * * Physician Interpretation * * * * EXAM TITLE: XR ABDOMEN 1V SUPINE EXAM DATE/TIME: 08/06/2024 12:36 PM COMPARISON: None. CLINICAL INDICATION/HISTORY: Suprapubic pain. TECHNIQUE: AP views of the abdomen are presented. FINDINGS: No abnormally dilated bowel loops identified. Small to moderate amount of stool and gas noted in the large bowel loops. There are multiple phleboliths in the pelvis. A questionable 1 cm calcification in the pelvis. The bony structures appear intact. IMPRESSION IMPRESSION: Nonobstructive bowel gas pattern. Parking Control Officer: DIOGENES Transcribe Date/Time: Aug 07 2024 5:08P Dictated by : DARYA BINGHAM MD This examination was interpreted and the report reviewed and electronically signed by: DARYA BINGHAM MD on Aug 07 2024 5:10PM [facility] XR Abdomen Supine and Uprigh tOrdered By: Cc Provider on 08-07-2024 [facility] CBC W Auto Differential pane l (Bld)on 08-06-2024 Basophils (Bld) [#/Vol] 0.09 10*3/uL [facility] Basophils/100 WBC (Bld) 0.9 % [facility] Differential cell count method Nom (Bld) Auto [facility] Eosinophils (Bld) [#/Vol] 0.34 10*3/uL [facility] Eosinophils/100 WBC (Bld) 3.3 % [facility] Erythrocyte distribution width (RBC) [Ratio] 13.1 % 11.5 - 15.0 % [facility] Hematocrit (Bld) [Volume fraction] 41.0 % 36.0 - 46.0 % [facility] Hemoglobin (Bld) [Mass/Vol] 13.8 g/dL 11.5 - 15.5 g/dL [facility] Immature granulocytes (Bld) [#/Vol] 0.03 10*3/uL [facility] Immature granulocytes/100 WBC (Bld) 0.3 % [facility] Interpretation and review of laboratory results Abnormal [facility] Lymphocytes (Bld) [#/Vol] 2.45 10*3/uL [facility] Lymphocytes/100 WBC (Bld) 23.9 % [facility] MCH (RBC) [Entitic mass] 28.4 pg 26.0 - 34.0 pg [facility] MCHC (RBC) [Mass/Vol] 33.7 g/dL 30.5 - 36.0 g/dL [facility] MCV (RBC) [Entitic vol] 84.4 fL 80.0 - 100.0 fL [facility] Monocytes (Bld) [#/Vol] 0.77 10*3/uL [facility] Monocytes/100 WBC (Bld) 7.5 % [facility] Neutrophils (Bld) [#/Vol] 6.55 10*3/uL [facility] Neutrophils/100 WBC (Bld) 64.1 % [facility] Nucleated RBC (Bld) [#/Vol] NINF [facility] Nucleated RBC/100 WBC (Bld) [Ratio] 0.0 % /100 WBC [facility] Platelet mean volume (Bld) [Entitic vol] 9.7 fL 9.0 - 12.7 fL [facility] Platelets (Bld) [#/Vol] 493 10*3/uL High [facility] RBC (Bld) [#/Vol] 4.86 10*6/uL 3.90 - 5.20 m/uL [facility] WBC (Bld) [#/Vol] 10.23 10*3/uL [facility] Basophils (Bld) [#/Vol] 0.09 10*3/uL Normal <0.[address] [facility] Comment on above: Order Comment: Speci men Type: BLOOD SPECIMENOrdering Facility: [facility] Address: [address] [place] [address] Performed By: #### 5 7021-8, 4536-7 ####[facility] LABCLIA [id number] [place] [address] [place] Basophils/100 WBC (Bld) 0.9 % Normal [facility] Comment on above: Order Comment: Speci men Type: BLOOD SPECIMENOrdering Facility: [facility] Address: [address] [place] [address] Performed By: #### 5 7021-8, 4536-7 ####[facility] LABCLIA [id number] [place] [address] [place] Differential cell count method Nom (Bld) Auto Normal [facility] Comment on above: Order Comment: Speci men Type: BLOOD SPECIMENOrdering Facility: [facility] Address: [address] [place] [address] Performed By: #### 5 7021-8, 7 ####[facility]CL[facility] [id number] [place] [address] [place] Eosinophils (Bld) [#/Vol] 0.34 10*3/uL Normal <0.[address] [facility] Comment on above: Order Comment: Speci men Type: BLOOD SPECIMENOrdering Facility: [facility] Address: [address] [place] [address] Performed By: #### 5 7021-8, 7 ####[facility] [id number] [place] [address] [place] Eosinophils/100 WBC (Bld) 3.3 % Normal [facility] Comment on above: Order Comment: Speci men Type: BLOOD SPECIMENOrdering Facility: [facility] Address: [address] [place] [address] Performed By: #### 5 7021-8, 4536-7 ####[facility]CL[facility] [id number] [place] [address] [place] Erythrocyte distribution width (RBC) [Ratio] 13.1 % Normal 11.5-15.[address] [facility] Comment on above: Order Comment: Speci men Type: BLOOD SPECIMENOrdering Facility: [facility] Address: [address] [place] [address] Performed By: #### 5 7021-8, 4537-7 ####[facility] LABIA [id number] [place] [address] [place] Hematocrit (Bld) [Volume fraction] 41.0 % Normal 36.0-46.[address] [facility] Comment on above: Order Comment: Speci men Type: BLOOD SPECIMENOrdering Facility: [facility] Address: [address] [place] [address] Performed By: #### 5 7021-8, 4536-7 ####[facility] LABIA [id number] [place] [address] [place] Hemoglobin (Bld) [Mass/Vol] 13.8 g/dL Normal 11.5-15.[address] [facility] Comment on above: Order Comment: Speci men Type: BLOOD SPECIMENOrdering Facility: [facility] Address: [address] [place] [address] Performed By: #### 5 7021-8, 7-7 ####[facility] LABIA [id number] [place] [address] [place] Immature granulocytes (Bld) [#/Vol] 0.03 10*3/uL Normal <0.[address] [facility] Comment on above: Order Comment: Speci men Type: BLOOD SPECIMENOrdering Facility: [facility] Address: [address] [place] [address] Performed By: #### 5 7021-8, 7-7 ####[facility]CL[facility] [id number] [place] [address] [place] Immature granulocytes/100 WBC (Bld) 0.3 % Normal [facility] Comment on above: Order Comment: Speci men Type: BLOOD SPECIMENOrdering Facility: [facility] Address: [address] [place] [address] Performed By: #### 5 7021-8, 4537-7 ####[facility]CL[facility] [id number] [place] [address] [place] Lymphocytes (Bld) [#/Vol] 2.45 10*3/uL Normal 1.00-4.[address] [facility] Comment on above: Order Comment: Speci men Type: BLOOD SPECIMENOrdering Facility: [facility] Address: [address] [place] [address] Performed By: #### 5 7021-8, 4537-7 ####[facility]CL[facility] [id number] [place] [address] [place] Lymphocytes/100 WBC (Bld) 23.9 % Normal [facility] Comment on above: Order Comment: Speci men Type: BLOOD SPECIMENOrdering Facility: [facility] Address: [address] [place] [address] Performed By: #### 5 7021-8, 4536-7 ####[facility]CLIA [id number] [place] [address] [place] MCH (RBC) [Entitic mass] 28.4 pg Normal 26.0-34.[address] [facility] Comment on above: Order Comment: Speci men Type: BLOOD SPECIMENOrdering Facility: [facility] Address: [address] [place] [address] Performed By: #### 5 7021-8, 7-7 ####[facility]CL[facility] [id number] [place] [address] [place] MCHC (RBC) [Mass/Vol] 33.7 g/dL Normal 30.5-36.0 [facility] Comment on above: Order Comment: Speci men Type: BLOOD SPECIMENOrdering Facility: [facility] Address: [address] [place] [address] Performed By: #### 5 7021-8, 4536-7 ####[facility]CL[facility] [id number] [place] [address] [place] MCV (RBC) [Entitic vol] 84.4 fL Normal 80.0-100.[address] [facility] Comment on above: Order Comment: Speci men Type: BLOOD SPECIMENOrdering Facility: [facility] Address: [address] [place] [address] Performed By: #### 5 7021-8, 7 ####[facility]CL[facility] [id number] [place] [address] [place] Monocytes (Bld) [#/Vol] 0.77 10*3/uL Normal <0.[address] [facility] Comment on above: Order Comment: Speci men Type: BLOOD SPECIMENOrdering Facility: [facility] Address: [address] [place] [address] Performed By: #### 5 7021-8, 7 ####[facility]CL[facility] [id number] [place] [address] [place] Monocytes/100 WBC (Bld) 7.5 % Normal [facility] Comment on above: Order Comment: Speci men Type: BLOOD SPECIMENOrdering Facility: [facility] Address: [address] [place] [address] Performed By: #### 5 7021-8, 7 ####[facility]CL[facility] [id number] [place] [address] [place] Neutrophils (Bld) [#/Vol] 6.55 10*3/uL Normal 1.45-7.[address] [facility] Comment on above: Order Comment: Speci men Type: BLOOD SPECIMENOrdering Facility: [facility] Address: [address] [place] [address] Performed By: #### 5 7021-8, 7-7 ####[facility]CL[facility] [id number] [place] [address] [place] Neutrophils/100 WBC (Bld) 64.1 % Normal [facility] Comment on above: Order Comment: Speci men Type: BLOOD SPECIMENOrdering Facility: [facility] Address: [address] [place] [address] Performed By: #### 5 7021-8, 4536-7 ####[facility]CLIA [id number] [place] [address] [place] Nucleated RBC (Bld) [#/Vol] 10*3/uL Normal <0.[address] [facility] Comment on above: Order Comment: Speci men Type: BLOOD SPECIMENOrdering Facility: [facility] Address: [address] [place] [address] Performed By: #### 5 7021-8, 4536-7 ####[facility]CLIA [id number] [place] [address] [place] Nucleated RBC/100 WBC (Bld) [Ratio] 0.0 /100 WBC Normal [facility] Comment on above: Order Comment: Speci men Type: BLOOD SPECIMENOrdering Facility: [facility] Address: [address] [place] [address] Performed By: #### 5 7021-8, 4536-7 ####[facility]CLIA [id number] [place] [address] [place] Platelet mean volume (Bld) [Entitic vol] 9.7 fL Normal 9.0-12.[address] [facility] Comment on above: Order Comment: Speci men Type: BLOOD SPECIMENOrdering Facility: [facility] Address: [address] [place] [address] Performed By: #### 5 7021-8, 7-7 ####[facility]CLIA [id number] [place] [address] [place] Platelets (Bld) [#/Vol] 493 10*3/uL High 150-[address] [facility] Comment on above: Order Comment: Speci men Type: BLOOD SPECIMENOrdering Facility: [facility] Address: [address] [place] [address] Performed By: #### 5 7021-8, 4537-7 ####[facility]CL[facility] [id number] [place] [address] [place] RBC (Bld) [#/Vol] 4.86 10*6/uL Normal 3.90-5.20 [facility] Comment on above: Order Comment: Speci men Type: BLOOD SPECIMENOrdering Facility: [facility] Address: [address] [place] [address] Performed By: #### 5 7021-8, 4537-7 ####[facility]CLIA [id number] [place] [address] [place] WBC (Bld) [#/Vol] 10.23 10*3/uL Normal 3.70-11.00 [facility] Comment on above: Order Comment: Speci men Type: BLOOD SPECIMENOrdering Facility: [facility] Address: [address] [place] [address] Performed By: #### 5 7021-8, 4537-7 ####[facility] LABCLIA [id number] [place] [address] [place] CNOVon 08-06-2024 CNOV Office Visit (FAMPWS ) MAXIMUS BRADLEY ([id number]) 1975 F Date Time Provider Department 08/06/24 10:40 AM LENY HSU During your visit today, we recorded the following information about you: Pulse Respiration Blood pressure Weight 93/minute 16/minute 124/76 98.7 kg Leny Hsu MD 08/12/2024 1:10 PM Signed Chief Complaint Patient presents with: Follow Up: 6 month Vaginal Problem: Patient reporting to nurse as finishing intake vaginal pain x 2 weeks. HPI Maximus Bradley is a 49 year old female who presents here today for Above Complaints. Patient complaining of pain in her lower abdomen which started about 2 weeks ago. Described as constant dull pain, currently 10, without radiation. Denies exacerbating factors. Treating with OTC Aleve without improvement. Admits to urinary frequency and urgency, constipation with hard stools. Pain does not improve after BM. Taking Miralax PRN. Denies dysuria, hematuria, fever/chills, nausea, vomiting, flank pain, abnormal vaginal bleeding or discharge, pain with sexual intercourse, abdominal injury, hematochezia, melena. Past medical history, appointments, medications, allergies reviewed. Previous Medical History PAST MEDICAL HISTORY Diagnosis Date Abdominal pain, epigastric Abnormal mammogram 09/14/2016 Acute gastritis without mention of hemorrhage Anxiety Chest pain Class 1 obesity due to excess calories without serious comorbidity with body mass index (BMI) of 34.0 to 34.9 in adult Depression Disability, developmental Enlarged thyroid Gastroesophageal reflux disease with esophagitis without hemorrhage Hypothyroidism Iron deficiency LLQ pain 10/07/2013 Low blood sugar 03/29/2015 Migraines [facility] neurology Obesity Plantar warts Reflux esophagitis Thrombocytosis Urinary retention Pablo Arrington Previous Surgical History PAST SURGICAL HISTORY Procedure Laterality Date BX OF BREAST; INCISIONAL Left 09/05/2023 COLONOSCOPY 11/28/2021 repeat in 10 years DILATION AND CURETTAGE DXAND/THER NONOBSTETRIC EGD W/O BRSH SPEC VARICIES INJ 01/30/2022 ESOPHAGOGASTRODUODENOSCOPY TRANSORAL DIAGNOSTIC 07/04/2005 EGD FNA WITH IMAGING Right 09/26/2016 U/S FNA UOQ right breast LIG/TRNSXJ FLP TUBE ABDL/VAG APPR UNI/BI Tubal ligation Family History FAMILY HISTORY Adopted: Yes Problem Relation Age of Onset Cancer Father lung Heart disease Sister No Known Problems Brother No Known Problems Brother other (Liver Disease) Paternal Grandmother Migraines Paternal Grandmother Cancer Paternal Grandfather Lung No Known Problems Son Cancer Paternal Uncle Throat No Ocular Disease No Family History Patient Allergies ALLERGIES Allergen Reactions Bee Pollen Anaphylaxis Adderall [Dextroamp* Itching Amphetamine Itching Imitrex [Sumatripta* Other: See Comments palpitations Current Medications Current Outpatient Medications on File Prior to Visit Medication Sig buPROPion XL (WELLBUTRIN XL) 300 mg 24 hr tablet Take 1 tablet by mouth once daily. ferrous sulfate 325 mg (65 mg iron) tablet Take 1 tablet by mouth once daily. loratadine (CLARITIN) 10 mg tablet Take 1 tablet by mouth once daily. albuterol HFA (VENTOLIN HFA) 90 mcg/actuation inhaler Inhale 2 Puffs as instructed every 4 hours as needed for wheezing/shortness of breath. venlafaxine (EFFEXOR) 100 mg tablet Take 1 tablet by mouth two times a day. naratriptan (AMERGE) 2.5 mg tablet Take 1 tablet (2.5 mg) by mouth as directed. at the onset of headache; if headache returns or does not fully resolve, the dose may be repeated after 4 hours; do not exceed five(5) mg in 24 hours. NO more than 10 doses in a month. folic acid 1 mg tablet Take 1 tablet by mouth once daily. topiramate (TOPAMAX) 25 mg capsule Take 2 capsules by mouth two times a day. sucralfate (CARAFATE) 100 mg/mL suspension TAKE 10ML BY MOUTH TWICE A DAY omeprazole (PRILOSEC) 40 mg capsule Take 1 capsule by mouth once daily. busPIRone (BUSPAR) 5 mg tablet Take 1 tablet by mouth two times a day. levothyroxine (SYNTHROID) 75 mcg tablet Take 1 tablet by mouth once daily. Take on empty stomach. For Thyroid fluticasone (FLONASE) 50 mcg/actuation nasal spray Use 2 Sprays in each nostril once daily. Rinse mouth after use. clotrimazole (LOTRIMIN) 1 % cream Apply BID to rash until rash goes away, and then continue for 1 more week. cyanocobalamin (VITAMIN B-12) 1,000 mcg tab Take 1 tablet by mouth once daily. VITAMIN D-3 50 mcg (2,000 unit) tablet TAKE 2 TABLETS (4000 UNITS) BY MOUTH ONCE DAILY No current facility-administered medications on file prior to visit. Social History Social History Tobacco Use Smoking status: Former Current packs/day: 1.00 Types: Cigarettes Smokeless tobacco: Former Quit date: 04/25/2015 Vaping Use Vaping status: Never Used (more content not included)... Normal [facility] CRP SerPl-ncon 08-06-2024 CRP [Mass/Vol] 0.7 mg/dL Normal <0.[address] [facility] Comment on above: Order Comment: Speci men Type: BLOOD SPECIMENOrdering Facility: [facility] Address: [address] [place] [address] Performed By: #### 5 0190-8, 08798-1, 2275-10 ####[facility] LABCLIA [id number] [place] [address] [place] Comprehensive metabolic 2000 panelon 08-06-2024 Albumin [Mass/Vol] 4.2 g/dL Normal 3.9-4.9 [facility] Comment on above: Order Comment: Speci men Type: BLOOD SPECIMENOrdering Facility: [facility] Address: [address] [place] [address] Performed By: #### 5 0190-8, 47253-8, 2275-10 ####[facility] LABCLIA [id number] [place] [address] [place] ALP [Catalytic activity/Vol] 100 U/L Normal 34-[address] [facility] Comment on above: Order Comment: Speci men Type: BLOOD SPECIMENOrdering Facility: [facility] Address: [address] [place], [place] [address] Performed By: #### 5 0190-8, 03765-7, 2275-10 ####[facility] LABCLIA [id number] [address] [address] [place] ALT [Catalytic activity/Vol] 18 U/L Normal 7-[address] [facility] Comment on above: Order Comment: Speci men Type: BLOOD SPECIMENOrdering Facility: [facility] Address: [address] [id number] Performed By: #### 5 0190-8, , 2275-10 ####[facility]CL[facility] [id number] [address] [address] [place] Anion gap [Moles/Vol] 13 mmol/L Normal 8-15 [facility] Comment on above: Order Comment: Speci men Type: BLOOD SPECIMENOrdering Facility: [facility] Address: [address] [place] [address] Performed By: #### 5 0190-8, , 2275-10 ####[facility]CLIA [id number] [place] [address] [place] AST [Catalytic activity/Vol] 15 U/L Normal 13-[address] [facility] Comment on above: Order Comment: Speci men Type: BLOOD SPECIMENOrdering Facility: [facility] Address: [address] [place], [place] [address] Performed By: #### 5 0190-8, , 2275-10 ####[facility]CLIA [id number] [address] [address] [place] Bilirubin [Mass/Vol] 0.3 mg/dL Normal 0.2-1.3 [facility] Comment on above: Order Comment: Speci men Type: BLOOD SPECIMENOrdering Facility: [facility] Address: [address] [id number] Performed By: #### 5 0190-8, , 2275-10 ####[facility]CLIA [id number] [address] [address] [place] Calcium [Mass/Vol] 9.4 mg/dL Normal 8.5-10.2 [facility] Comment on above: Order Comment: Speci men Type: BLOOD SPECIMENOrdering Facility: [facility] Address: [address] [place], [place] [address] Performed By: #### 5 0190-8, , 2275-10 ####[facility]CL[facility] [id number] [address] [address] [place] Chloride [Moles/Vol] 106 mmol/L Normal 98-107 [facility] Comment on above: Order Comment: Speci men Type: BLOOD SPECIMENOrdering Facility: [facility] Address: [address] [place] [address] Performed By: #### 5 0190-8, , 2275-10 ####[facility]CLIA [id number] [place] [address] [place] CO2 [Moles/Vol] 21 mmol/L Low 22-[address] [facility] Comment on above: Order Comment: Speci men Type: BLOOD SPECIMENOrdering Facility: [facility] Address: [address] [place] [address] Performed By: #### 5 0190-8, , 2275-10 ####[facility]CL[facility] [id number] [address] [address] [place] Creatinine [Mass/Vol] 0.84 mg/dL Normal 0.58-0.96 [facility] Comment on above: Order Comment: Speci men Type: BLOOD SPECIMENOrdering Facility: [facility] Address: [address] [place], [place] [address] Performed By: #### 5 0190-8, , 2275-10 ####[facility]CL[facility] [id number] [address] [address] [place] Creatinine and Glomerular filtration rate.predicted panel (S/P/Bld) 86 mL/min/1.73m??? Normal >=[address] [facility] Comment on above: Order Comment: Yani arik Type: BLOOD SPECIMENOrdering Facility: [facility] Address: [address] [place] [address] Result Comment: Romi mated Glomerular Filtration Rate (eGFR) is calculated using the 2020 CKD-EPI creatinine equation. This equation utilizes serum creatinine, sex, and age as parameters. The creatinine assay has traceable calibration to isotope dilution-mass spectrometry. Refer to KDIGO guidelines for clinical interpretation. In patients with unstable renal function, e.g. those with acute kidney injury, the eGFR may not accurately reflect actual GFR. Performed By: #### 5 0190-8, 48626-2, 2275-10 ####[facility] LABIA [id number] [place] [address] [place] Glucose [Mass/Vol] 87 mg/dL Normal 74-99 [facility] Comment on above: Order Comment: Yani elise Type: BLOOD SPECIMENOrdering Facility: [facility] Address: [address] [place] [address] Result Comment: The [place] [employer] Association (ADA) provides guidance for cutoff values for fasting glucose and random glucose. The ADA defines fasting as no caloric intake for at least 8 hours. Fasting plasma glucose results between 100 to 125 mg/dL indicate increased risk for diabetes (prediabetes). Fasting plasma glucose results greater than or equal to 126 mg/dL meet the criteria for diagnosis of diabetes. In the absence of unequivocal hyperglycemia, results should be confirmed by repeat testing. In a patient with classic symptoms of hyperglycemia or hyperglycemic crisis, random plasma glucose results greater than or equal to 200 mg/dL meet the criteria for diagnosis of diabetes. Reference: Standards of Medical Care in Diabetes 2016, [place] [employer]. Diabetes Care. 2016.39(Suppl 1). Performed By: #### 5 0190-8, 79526-4, 2275-10 ####[facility]CLIA [id number] [place] [address] [place] Potassium [Moles/Vol] 4.0 mmol/L Normal 3.7-5.1 [facility] Comment on above: Order Comment: Speci men Type: BLOOD SPECIMENOrdering Facility: [facility] Address: [address] [place], [place] [address] Performed By: #### 5 0190-8, , 2275-10 ####[facility]CLIA [id number] [address] [address] [place] Protein [Mass/Vol] 6.6 g/dL Normal 6.3-8.0 [facility] Comment on above: Order Comment: Speci men Type: BLOOD SPECIMENOrdering Facility: [facility] Address: [address] [place] [address] Performed By: #### 5 0190-8, , 2275-10 ####[facility]USIA [id number] [place] [address] [place] Sodium [Moles/Vol] 140 mmol/L Normal 136-144 [facility] Comment on above: Order Comment: Speci men Type: BLOOD SPECIMENOrdering Facility: [facility] Address: [address] [place] [address] Performed By: #### 5 0190-8, , 2275-10 ####[facility] LABIA [id number] [place] [address] [place] Urea nitrogen [Mass/Vol] 9 mg/dL Normal 7-[address] [facility] Comment on above: Order Comment: Speci men Type: BLOOD SPECIMENOrdering Facility: [facility] Address: [address] [place], [place] [address] Performed By: #### 5 0190-8, 33420-9, 2275-10 ####[facility] LABIA [id number] [place] [id number] [place] ESR Westergren method (Bld) [Velocity]on 08-06-2024 ESR (Bld) [Velocity] 5 mm/h [facility] Interpretation and review of laboratory results Normal [facility] ESR (Bld) [Velocity] 5 mm/h Normal 0-20 [facility] Comment on above: Order Comment: Speci men Type: BLOOD SPECIMENOrdering Facility: [facility] Address: [address] [place] [address] Performed By: #### 5 7021-8, 4537-7 ####[facility]CL[facility] [id number] [place] [address] [place] Ferritin SerPl-ncon 2024 Ferritin [Mass/Vol] 66.9 ng/mL Normal 14.7-205.1 [facility] Comment on above: Order Comment: Speci men Type: BLOOD SPECIMENOrdering Facility: [facility] Address: [address] [place] [address] Performed By: #### 5 0190-8, 18456-9, 1987-11, 2275-10 ####[facility]CL[facility] [id number] [place] [address] [place] Iron and Iron binding capaci ty panelon 08-06-2024 Iron [Mass/Vol] 114 ug/dL Normal 41-[address] [facility] Comment on above: Order Comment: Speci men Type: BLOOD SPECIMENOrdering Facility: [facility] Address: [address] [place] [address] Performed By: #### 5 0190-8, 37822-0, 1987-11, 2275-10 ####[facility]CLIA [id number] [place] [address] [place] Iron binding capacity [Mass/Vol] 282 ug/dL Normal 232-[address] [facility] Comment on above: Order Comment: Speci men Type: BLOOD SPECIMENOrdering Facility: [facility] Address: [address] [place] [address] Performed By: #### 5 0190-8, 49913-6, 1987-11, 2275-10 ####[facility]CL[facility] [id number] [address] [address] [place] Iron/TIBC [Molar ratio] 40.4 % Normal 15.0-57.[address] [facility] Comment on above: Order Comment: Speci men Type: BLOOD SPECIMENOrdering Facility: [facility] Address: [address] [place] [address] Performed By: #### 5 0190-8, 14265-6, 1987-11, 2276-4 ####[facility]CL[facility] [id number] [place] [address] [place] UA DIP, URINE (POC)on 2024 BILIRUBIN UA (POCT) Negative Negative [facility] CLARITY UA (POCT) [facility] COLOR UA (POCT) Daya [facility] GLUCOSE UA (POCT) Negative Negative mg/dL [facility] Hemoglobin Ql (U) Negative Negative [facility] KETONE UA (POCT) Negative Negative mg/dL [facility] LEUKOCYTES UA (POCT) Negative Negative [facility] NITRITE UA (POCT) Negative Negative [facility] PH UA (POCT) 6.5 4.5 - 8.0 [facility] Protein Ql (U) Negative Negative mg/dL [facility] SPECIFIC GRAVITY UA (POCT) 1.020 1.005 - 1.030 [facility] UROBILINOGEN UA (POCT) 1.0 Michelle l E.U./dL [facility] Location:[address], [place], [place], [address] [place] [address] POINT OF CARE [facility] XR ABDOMEN 1V SUPINEon 08-06 XR ABDOMEN 1V SUPINE * * *Final Report* * * DATE OF EXAM: Aug 06 2024 12:36PM WOX [id number] - XR ABDOMEN 1V SUPINE / PROCEDURE REASON: Suprapubic pain, acute * * * * Physician Interpretation * * * * EXAM TITLE: XR ABDOMEN 1V SUPINE EXAM DATE/TIME: 08/06/2024 12:36 PM COMPARISON: None. CLINICAL INDICATION/HISTORY: Suprapubic pain. TECHNIQUE: AP views of the abdomen are presented. FINDINGS: No abnormally dilated bowel loops identified. Small to moderate amount of stool and gas noted in the large bowel loops. There are multiple phleboliths in the pelvis. A questionable 1 cm calcification in the pelvis. The bony structures appear intact. IMPRESSION: Nonobstructive bowel gas pattern. Parking Control Officer: DIOGENSE Transcribe Date/Time: Aug 07 2024 5:08P Dictated by : DARYA BINGHAM MD This examination was interpreted and the report reviewed and electronically signed by: DARYA BINGHAM MD on Aug 07 2024 5:10PM EST [id number] Normal [facility] XR Abdomen Supine and Uprigh ton 08-06-2024 Radiology Study observation (narrative) [facility] CNOVon 05-13-2024 CNOV Office Visit (NEMOWS ) MAXIMUS BRADLEY ([id number]) 1975 F Date Time Provider Department 05/13/24 11:00 AM KRISTY ASENCIO During your visit today, we recorded the following information about you: Pulse Respiration Blood pressure Weight 84/minute 16/minute 126/80 97 kg Kristy Asencio PA-C 05/13/2024 11:20 AM Signed [facility] Follow up CC: Headache Follow up Last Visit: 09/19/23 ASSESSMENT/PLAN: 1. Migraine without aura and without status migrainosus, not intractable - ICD9: 346.10, ICD10: G43.009 (primary diagnosis) Patient's headaches unchanged since last appointment. Notes and margins are effective abortive for her, having about 4 migraine days a month. Would like to come off the Topamax as she feels her headaches are stable and does not feel this is very effective medication for her. Will decrease slowly, did instruct her to decrease her Topamax to 50 mg a day and we will reassess her headaches in the next month or so. Patient agrees with plan. Patient denies any history of seizures. Did discuss this may increase her headaches and should this occur to send me a MyChart and we will go back up or find an alternative medication. Patient agrees understands. No new symptoms with her headaches, no red flag signs or symptoms that would warrant repeat imaging. Patient did see her eye doctor as well without any signs of optic disc swelling. 2. Syncope and collapse - ICD9: 780.2, ICD10: R55 3. Orthostatic lightheadedness - ICD9: 780.4, ICD10: R42 Patient without a repeat episodes of syncope. Did encourage her to get her tilt table as she did not have scheduled. Encouraged increasing water intake and decreasing caffeinated beverages to prevent lightheadedness. Patient was found to have low B12 and was given instructions on how to supplement this. Patient also concerned with episodes of shaking, states this only occurs when she does not eat all day and encouraged her to eat throughout the day to prevent this. Also had concerns over weight gain and encouraged to follow-up with her primary care for this issue. Patient family was concerned about some vision changes that are new, describing some difficulty seeing things up close, encouraged her to follow-up with her doctor. Patient agreeable to treatment plan of care at this time, all questions were answered. Patient to follow-up in 4 to 5 months or sooner should new symptoms change or worsen. Plan: All options for treatment discussed. Preventative: Topamax, will decrease to 50 mg, supplements Abortive: Amerge 2.5 mg Follow-up: 4 months Today: Patient is here for headache/migraine follow up. Last seen on 09/19/23 for migraine. Having 4 a month. Wanted to come off tpm. Did have repeat episode of syncope, encouraged tilt table to be scheduled. Did see cards and had ECHO and stress test. Since last visit headaches have improved. Last headache was when she slept the wrong way and got a kink in the neck and had a few headaches for a week a few months ago. Bought some cream and that seemed to help. Otherwise is headache free, on TPM 100mg, did not decrease it. No episodes of syncope. Current Headache treatment Preventative: TPM 100mg Abortive: amerge Medications effective? yes # of doses of abortive medications per month: few Total headache days per month: none Total headache attacks per month: none Headache free days: Yes Duration of attacks: All day Severity of headaches? Moderate to severe Location: Frontal. Aura: None Accompanying symptoms: photophobia, phonophobia, nausea, vomiting. Quality:throbbing. Worse with activity: No Pain today: 0/10 Triggers: none. Prodrome:none. Tobacco Use: No. Alcohol Use: No Caffeine:Yes: two sodas Water: not much Sleep- variable Prior Therapies TPM Maxalt Tylenol Compazine Candesartan Effexor Buspar Wellbutrin Candesartan The patient's prior records were reviewed including and lab testing, imaging, and procedures done since their last visit with me. Review of symptoms including constitutional, eyes, ENT, neck, respiratory, cardiovascular, GI, , musculoskeletal, hematologic, oncologic, endocrine, and psychiatric categories is unchanged. No new details in the family history or social history were offered by the patient. PAST MEDICAL HISTORY Diagnosis Date Abdominal pain, epigastric Abnormal mammogram 09/14/2016 Acute gastritis without mention of hemorrhage Anxiety Chest pain Class 1 obesity due to excess calories without serious comorbidity with body mass index (BMI) of 34.0 to 34.9 in adult Depression Disability, developmental Enlarged thyroid Gastroesophageal reflux disease with esophagitis without hemorrhage Hypothyroidism Iron deficiency LLQ pain 10/07/2013 Low blood sugar 03/29/2015 Migra (more content not included)... Normal [facility] MAXIMUS BRADLEY ([id number]) 1975 F Date Time Provider Department 02/28/24 LENY HSU [facility] During your visit today, we recorded the following information about you: Leny Hsu MD 02/28/2024 11:28 AM Signed Anemia has resolved. Platelet count is still high without other abnormal cell lines. Iron level is low. Recommend starting ferrous sulfate daily to improve iron levels and platelet count. Recheck labs in 1-2 months. Will check FOBT to rule out GI bleed as possible cause for iron deficiency. Please notify the office with any other bleeding or bruising symptoms. Tamica Gamez LPN 02/29/2024 8:58 AM Signed Phoned patient went over results, notes from Dr Hsu with understanding. Aware rx sent to pharmacy. Allergies As of Date: 02/28/2024 Noted Allergy Reaction BEE POLLEN 01/23/2019 10 - Anaphylaxis ADDERALL (DEXTROAMPHETAMINE-AMPHE* 9 - Itching AMPHETAMINE 12/13/2016 9 - Itching IMITREX (SUMATRIPTAN) 01/11/2015 14 - Other: See Comments Comments: palpitations Date Reviewed: 02/19/2024 Reviewed by: Maureen Sandy LPN - Fully Assessed Reason for Visit: Results [95] Primary Visit Diagnosis:Iron deficiency [E61.1] Order(s):ferrous sulfate 325 mg (65 mg iron) tabletTake 1 tablet by mouth once daily.Disp: 90 tabletRfl: 0 IMMUNOCHEMICAL FECAL OCCULT BLOOD TEST [SQIFOBT] Order #: [id number]. #:[id number] Prescriptions as of 02/29/2024 - ferrous sulfate 325 mg (65 mg iron) tablet Take 1 tablet by mouth once daily. - albuterol HFA (VENTOLIN HFA) 90 mcg/actuation inhaler Inhale 2 Puffs as instructed every 4 hours as needed for wheezing/shortness of breath. - buPROPion XL (WELLBUTRIN XL) 300 mg 24 hr tablet Take 1 tablet by mouth once daily. - loratadine (CLARITIN) 10 mg tablet Take 1 tablet by mouth once daily. - sucralfate (CARAFATE) 100 mg/mL suspension TAKE 10ML BY MOUTH TWICE A DAY - fluticasone (FLONASE) 50 mcg/actuation nasal spray Use 2 Sprays in each nostril once daily. Rinse mouth after use. - clotrimazole (LOTRIMIN) 1 % cream Apply BID to rash until rash goes away, and then continue for 1 more week. - folic acid 1 mg tablet take 1 tablet by mouth daily - venlafaxine (EFFEXOR) 100 mg tablet Take 1 tablet by mouth two times a day. - topiramate (TOPAMAX) 25 mg capsule Take 2 capsules by mouth two times a day. - cyanocobalamin (VITAMIN B-12) 1,000 mcg tab Take 1 tablet by mouth once daily. - omeprazole (PRILOSEC) 40 mg capsule Take 1 capsule by mouth once daily. - busPIRone (BUSPAR) 5 mg tablet Take 1 tablet by mouth two times a day. - levothyroxine (SYNTHROID) 75 mcg tablet Take 1 tablet by mouth once daily. Take on empty stomach. For Thyroid - VITAMIN D-3 50 mcg (2,000 unit) tablet TAKE 2 TABLETS (4000 UNITS) BY MOUTH ONCE DAILY - naratriptan (AMERGE) 2.5 mg tablet Take 1 tablet (2.5 mg) by mouth as directed. at the onset of headache; if headache returns or does not fully resolve, the dose may be repeated after 4 hours; do not exceed five(5) mg in 24 hours. NO more than 10 doses in a month. Problem List As Of Date 02/28/2024 Noted Resolved Abdominal pain, epigastric [R10.13] 07/22/2013 Hypothyroidism [E03.9] 12/06/2010 Enlarged thyroid [E04.9] 12/06/2010 Diarrhea [R19.7] 07/22/2013 01/11/2015 Menorrhagia [N92.0] 10/07/2013 Migraines [G43.909] 01/04/2015 01/11/2015 Essential hypertension [I10] 01/04/2015 Migraine headache without aura [G43.009] 01/11/2015 Low blood sugar [E16.2] 03/29/2015 12/30/2019 Depression [F32.A] Moderate episode of recurrent major depressive *07/17/2023 Claudication (HCC) [I73.9] 07/17/2023 07/17/2023 Obesity [E66.9] 01/14/2024 Iron deficiency [E61.1] Prescriptions ordered this encounter Disp Refills Start End FERROUS SULFATE 325 MG (65 MG IRON) * 90 t* 0 02/28/2024 05/28/2024 Route: ORAL Sig: Take 1 tablet by mouth once daily. Encounter Status:Closed by TAMICA GAMEZ on 02/29/[address] [facility] CBC W Ordered Manual Differe ntial panel (Bld)on 02-27-2024 Basophils (Bld) [#/Vol] 0.09 10*3/uL Normal <0.[address] [facility] Comment on above: Order Comment: Speci men Type: BLOOD SPECIMENOrdering Facility: [facility] Address: [address] [place] [address] Performed By: #### 5 7782-5, 4537-7, STFREV ####[facility] LABCLIA [id number] [facility] [place] [address] [place] Basophils/100 WBC (Bld) 0.8 % Normal [facility] Comment on above: Order Comment: Speci men Type: BLOOD SPECIMENOrdering Facility: [facility] Address: [address] [place] [address] Performed By: #### 5 7782-5, 4537-7, STFREV ####[facility] LABCLIA [id number] [facility] [place] [address] [place] Differential cell count method Nom (Bld) Auto Normal [facility] Comment on above: Order Comment: Speci men Type: BLOOD SPECIMENOrdering Facility: [facility] Address: [address] [place] [address] Performed By: #### 5 7782-5, 4537-7, STFREV ####[facility] LABCLIA [id number] [facility] [place] [address] [place] Eosinophils (Bld) [#/Vol] 0.30 10*3/uL Normal <0.[address] [facility] Comment on above: Order Comment: Speci men Type: BLOOD SPECIMENOrdering Facility: [facility] Address: [address] [place] [address] Performed By: #### 5 7782-5, 4537-7, STFREV ####[facility] LABCLIA [id number] [facility] [place] [address] [place] Eosinophils/100 WBC (Bld) 2.8 % Normal [facility] Comment on above: Order Comment: Speci men Type: BLOOD SPECIMENOrdering Facility: [facility] Address: [address] [place] [address] Performed By: #### 5 7782-5, 4537-7, STMAYNOR ####[facility] LABCLIA [id number] [place] [address] [place] Erythrocyte distribution width (RBC) [Ratio] 14.1 % Normal 11.5-15.[address] [facility] Comment on above: Order Comment: Speci men Type: BLOOD SPECIMENOrdering Facility: [facility] Address: [address] [place] [address] Performed By: #### 5 7782-5, 4537-7, STMAYNOR ####[facility] LABCLIA [id number] [place] [address] [place] Hematocrit (Bld) [Volume fraction] 39.1 % Normal 36.0-46.[address] [facility] Comment on above: Order Comment: Speci men Type: BLOOD SPECIMENOrdering Facility: [facility] Address: [address] [place] [address] Performed By: #### 5 7782-5, 4537-7, STMAYNOR ####[facility] LABIA [id number] [place] [address] [place] Hemoglobin (Bld) [Mass/Vol] 12.1 g/dL Normal 11.5-15.[address] [facility] Comment on above: Order Comment: Speci men Type: BLOOD SPECIMENOrdering Facility: [facility] Address: [address] [place] [address] Performed By: #### 5 7782-5, 4537-7, STFRPRUDENCIO ####[facility] LABCLIA [id number] [place] [address] [place] Immature granulocytes (Bld) [#/Vol] 0.03 10*3/uL Normal <0.[address] [facility] Comment on above: Order Comment: Speci men Type: BLOOD SPECIMENOrdering Facility: [facility] Address: [address] [place] [address] Performed By: #### 5 7782-5, 4537-7, STFREV ####[facility] LABCLIA [id number] [place] [address] [place] Immature granulocytes/100 WBC (Bld) 0.3 % Normal [facility] Comment on above: Order Comment: Speci men Type: BLOOD SPECIMENOrdering Facility: [facility] Address: [address] [place] [address] Performed By: #### 5 7782-5, 4537-7, STFREV ####[facility] LABCLIA [id number] [place] [address] [place] Lymphocytes (Bld) [#/Vol] 2.75 10*3/uL Normal 1.00-4.[address] [facility] Comment on above: Order Comment: Speci men Type: BLOOD SPECIMENOrdering Facility: [facility] Address: [address] [place] [address] Performed By: #### 5 7782-5, 4537-7, STFREV ####[facility] LABCLIA [id number] [place] [address] [place] Lymphocytes/100 WBC (Bld) 25.5 % Normal [facility] Comment on above: Order Comment: Speci men Type: BLOOD SPECIMENOrdering Facility: [facility] Address: [address] [place] [address] Performed By: #### 5 7782-5, 4537-7, STFREV ####[facility] LABCLIA [id number] [place] [address] [place] MCH (RBC) [Entitic mass] 23.9 pg Low 26.0-34.[address] [facility] Comment on above: Order Comment: Speci men Type: BLOOD SPECIMENOrdering Facility: [facility] Address: [address] [place] [address] Performed By: #### 5 7782-5, 4537-7, STFREV ####[facility] LABCLIA [id number] [place] [address] [place] MCHC (RBC) [Mass/Vol] 30.9 g/dL Normal 30.5-36.0 [facility] Comment on above: Order Comment: Speci men Type: BLOOD SPECIMENOrdering Facility: [facility] Address: [address] [place] [address] Performed By: #### 5 7782-5, 4537-7, STFREV ####[facility] LABIA [id number] [place] [address] [place] MCV (RBC) [Entitic vol] 77.1 fL Low 80.0-100.[address] [facility] Comment on above: Order Comment: Speci men Type: BLOOD SPECIMENOrdering Facility: [facility] Address: [address] [place] [address] Performed By: #### 5 7782-5, 4537-7, STFREV ####[facility] LABIA [id number] [place] [address] [place] Monocytes (Bld) [#/Vol] 0.72 10*3/uL Normal <0.[address] [facility] Comment on above: Order Comment: Speci men Type: BLOOD SPECIMENOrdering Facility: [facility] Address: [address] [place] [address] Performed By: #### 5 7782-5, 4537-7, STFREV ####[facility] LABIA [id number] [place] [address] [place] Monocytes/100 WBC (Bld) 6.7 % Normal [facility] Comment on above: Order Comment: Speci men Type: BLOOD SPECIMENOrdering Facility: [facility] Address: [address] [place] [address] Performed By: #### 5 7782-5, 4537-7, STFREV ####[facility] LABCLIA [id number] [place] [address] [place] Neutrophils (Bld) [#/Vol] 6.90 10*3/uL Normal 1.45-7.[address] [facility] Comment on above: Order Comment: Speci men Type: BLOOD SPECIMENOrdering Facility: [facility] Address: [address] [place] [address] Performed By: #### 5 7782-5, 453-7, STFREV ####[facility] LABCLIA [id number] [place] [address] [place] Neutrophils/100 WBC (Bld) 63.9 % Normal [facility] Comment on above: Order Comment: Speci men Type: BLOOD SPECIMENOrdering Facility: [facility] Address: [address] [place] [address] Performed By: #### 5 7782-5, 4536-7, STFREV ####[facility] LABCLIA [id number] [place] [address] [place] Nucleated RBC (Bld) [#/Vol] 10*3/uL Normal <0.[address] [facility] Comment on above: Order Comment: Speci men Type: BLOOD SPECIMENOrdering Facility: [facility] Address: [address] [place] [address] Performed By: #### 5 7782-5, 4536-7, STFREV ####[facility] LABCLIA [id number] [place] [id number] [place] Nucleated RBC/100 WBC (Bld) [Ratio] 0.0 /100 WBC Normal [facility] Comment on above: Order Comment: Speci men Type: BLOOD SPECIMENOrdering Facility: [facility] Address: [address] [place] [address] Performed By: #### 5 7782-5, 4537-7, STFREV ####[facility] LABCLIA [id number] [address] [address] [place] Platelet mean volume (Bld) [Entitic vol] 10.3 fL Normal 9.0-12.[address] [facility] Comment on above: Order Comment: Speci men Type: BLOOD SPECIMENOrdering Facility: [facility] Address: [address] [place] [address] Performed By: #### 5 7782-5, 4537-7, STFREV ####[facility] LABCLIA [id number] [place] [address] [place] Platelets (Bld) [#/Vol] 532 10*3/uL High 150-[address] [facility] Comment on above: Order Comment: Speci men Type: BLOOD SPECIMENOrdering Facility: [facility] Address: [address] [place] [address] Performed By: #### 5 7782-5, 4537-7, STFREV ####[facility] LABIA [id number] [place] [address] [place] RBC (Bld) [#/Vol] 5.07 10*6/uL Normal 3.90-5.20 [facility] Comment on above: Order Comment: Speci men Type: BLOOD SPECIMENOrdering Facility: [facility] Address: [address] [place] [address] Performed By: #### 5 7782-5, 4537-7, STFREV ####[facility] LABCLIA [id number] [address] [address] [place] WBC (Bld) [#/Vol] 10.79 10*3/uL Normal 3.70-11.00 [facility] Comment on above: Order Comment: Speci men Type: BLOOD SPECIMENOrdering Facility: [facility] Address: [address] [place] [address] Performed By: #### 5 7782-5, 4537-7, STFREV ####[facility] LABCLIA [id number] [place] [id number] [place] CRP SerPl-mCncon 02-27-2024 CRP [Mass/Vol] 0.6 mg/dL Normal <0.[address] [facility] Comment on above: Order Comment: Speci men Type: BLOOD SPECIMENOrdering Facility: [facility] Address: [address] [place] [address] Performed By: #### 1 988-5, 2276-4, 16414-4 ####[facility] LABIA [id number] [place] [address] [place] ESR Westergren method (Bld) [Velocity]on 02-27-2024 ESR (Bld) [Velocity] 12 mm/h Normal 0-20 [facility] Comment on above: Order Comment: Speci men Type: BLOOD SPECIMENOrdering Facility: [facility] Address: [address] [place] [address] Performed By: #### 5 7782-5, 4537-7, STFREV ####[facility] LABIA [id number] [place] [address] [place] Ferritin SerPl-mCncon 2023 Ferritin [Mass/Vol] 17.6 ng/mL Normal 14.7-205.1 [facility] Comment on above: Order Comment: Speci men Type: BLOOD SPECIMENOrdering Facility: [facility] Address: [address] [place] [address] Performed By: #### 1 988-5, 2276-4, 05567-2 ####[facility] LABIA [id number] [place] [address] [place] Iron and Iron binding capaci ty panelon 02-27-2024 Iron [Mass/Vol] 38 ug/dL Low 41-[address] [facility] Comment on above: Order Comment: Speci men Type: BLOOD SPECIMENOrdering Facility: [facility] Address: [address] [place] [address] Performed By: #### 1 988-5, 2276-4, 33674-0 ####[facility] LABIA [id number] [place] [id number] [place] Iron binding capacity [Mass/Vol] 378 ug/dL Normal 232-[address] [facility] Comment on above: Order Comment: Speci men Type: BLOOD SPECIMENOrdering Facility: [facility] Address: [address] [place] [address] Performed By: #### 1 988-5, 2276-4, 08814-0 ####[facility] LABIA [id number] [place] [address] [place] Iron/TIBC [Molar ratio] 10.1 % Low 15.0-57.[address] [facility] Comment on above: Order Comment: Speci men Type: BLOOD SPECIMENOrdering Facility: [facility] Address: [address] [place] [address] Performed By: #### 1 988-5, 2276-4, 04836-0 ####[facility] LABIA [id number] [place] [address] [place] PATHOLOGIST INTERPRETATION C BC/DIFFon 02-27-2024 Computer Game Tester review Enrique (Unsp spec) [Interp] No review performed. Normal [facility] Comment on above: Order Comment: Speci men Type: BLOOD SPECIMENOrdering Facility: [facility] Address: [address] [place] [address] Performed By: #### 5 7782-5, 4537-7, STFREV ####[facility] [id number] [place] [address] [place] STAFF REVIEW, CBCDIF Normal [facility] Comment on above: Order Comment: Speci men Type: BLOOD SPECIMENOrdering Facility: [facility] Address: [address], [place] [address] Result Comment: The Pathologist Interpretation on this sample was cancelled because the hematology analyzer did not flag any parameters as requiring manual review. If there is a specific clinical concern for which you would like a pathologist to review the blood smear, please call Lab Client Services within 28 days. Performed By: #### 5 7782-5, 4537-7, MOSHE ####[facility] LABCLIA [id number] [address] CNOVon 02-19-2024 CNOV Office Visit (PODIWS ) MAXIMUS BRADLEY ([id number]) 1975 F Date Time Provider Department 02/19/24 1:30 PM EFRAIN ROLLINS PODIWS During your visit today, we recorded the following information about you: Maureen Sandy LPN 02/19/2024 2:47 PM Signed AMB ROOMING INTAKE FLOWSHEET DATA Pain Pain Level: 5 Pain Location: Other: See Comment (bilateral feet) Description: Sore Duration Units: Years Frequency: Intermittent Intervention/Comfort measure: Reposition, Relaxation Patient presents with: Right Foot - New, Pain, Wart Left Foot - New, Pain, Wart ESCOBAR Gallardo Matthew 02/19/2024 2:47 PM Signed Consultation requested by Dr. Hsu for an opinion regarding wart. My final recommendations will be communicated back to the requesting physician by way of shared Medical record or letter to requesting physician via US mail. Initial Podiatric Office Visit: Chief Complaint: This 48 year old female who presents with chief complaint:wart to b/l foot HPI Patient presents to clinic for evaluation of b/l feet Complains of warts to b/l 5th metatarsal Complains of pain whenever ambulatory. Has tried cryotherapy by her primray care provider but this did not work Here do discuss options. PAIN EVALUATION 02/19/2024 1325 Pain Level: 5 Pain Location: Other: See Comment bilateral feet Description: Sore Duration Units: Years Frequency: Intermittent Intervention/Comfort measure: Reposition;Relaxation Hemoglobin A1C (%) Date Value 06/05/2023 4.7 04/08/2018 4.7 03/29/2015 4.9 PCP: Leny Hsu MD PAST MEDICAL HISTORY No date: Abdominal pain, epigastric 09/14/2016: Abnormal mammogram No date: Acute gastritis without mention of hemorrhage No date: Anxiety No date: Chest pain No date: Class 1 obesity due to excess calories without serious comorbidity with body mass index (BMI) of 34.0 to 34.9 in adult No date: Depression No date: Disability, developmental No date: Enlarged thyroid No date: Gastroesophageal reflux disease with esophagitis without hemorrhage No date: Hypothyroidism 10/07/2013: LLQ pain 03/29/2015: Low blood sugar No date: Migraines Comment: [facility] No date: Obesity No date: Plantar warts No date: Reflux esophagitis No date: Thrombocytosis No date: Urinary retention Comment: Pablo Arrington Current Outpatient Medications Medication Sig albuterol HFA (VENTOLIN HFA) 90 mcg/actuation inhaler Inhale 2 Puffs as instructed every 4 hours as needed for wheezing/shortness of breath. naproxen (NAPROSYN) 500 mg tablet Take 1 tablet by mouth two times a day as needed for up to 15 days. Take with food. buPROPion XL (WELLBUTRIN XL) 300 mg 24 hr tablet Take 1 tablet by mouth once daily. loratadine (CLARITIN) 10 mg tablet Take 1 tablet by mouth once daily. sucralfate (CARAFATE) 100 mg/mL suspension TAKE 10ML BY MOUTH TWICE A DAY fluticasone (FLONASE) 50 mcg/actuation nasal spray Use 2 Sprays in each nostril once daily. Rinse mouth after use. clotrimazole (LOTRIMIN) 1 % cream Apply BID to rash until rash goes away, and then continue for 1 more week. folic acid 1 mg tablet take 1 tablet by mouth daily venlafaxine (EFFEXOR) 100 mg tablet Take 1 tablet by mouth two times a day. topiramate (TOPAMAX) 25 mg capsule Take 2 capsules by mouth two times a day. cyanocobalamin (VITAMIN B-12) 1,000 mcg tab Take 1 tablet by mouth once daily. omeprazole (PRILOSEC) 40 mg capsule Take 1 capsule by mouth once daily. busPIRone (BUSPAR) 5 mg tablet Take 1 tablet by mouth two times a day. levothyroxine (SYNTHROID) 75 mcg tablet Take 1 tablet by mouth once daily. Take on empty stomach. For Thyroid VITAMIN D-3 50 mcg (2,000 unit) tablet TAKE 2 TABLETS (4000 UNITS) BY MOUTH ONCE DAILY naratriptan (AMERGE) 2.5 mg tablet Take 1 tablet (2.5 mg) by mouth as directed. at the onset of headache; if headache returns or does not fully resolve, the dose may be repeated after 4 hours; do not exceed five(5) mg in 24 hours. NO more than 10 doses in a month. No current facility-administered medications for this visit. ALLERGIES Allergen Reactions Bee Pollen Anaphylaxis Adderall [Dextroamp* Itching Amphetamine Itching Imitrex [Sumatripta* Other: See Comments palpitations PAST SURGICAL HISTORY 09/05/2023: BX OF BREAST; INCISIONAL; Left 11/28/2021: COLONOSCOPY Comment: repeat in 10 years No date: DILATION AND CURETTAGE DXAND/THER NONOBSTETRIC 01/30/2022: EGD W/O BRSH SPEC VARICIES INJ 07/04/2005: ESOPHAGOGASTRODUODENOSCOPY TRANSORAL DIAGNOSTIC Comment: EGD 09/26/2016: FNA WITH IMAGING; Right Comment: U/S FNA UOQ right breast No date: LIG/TRNSXJ FLP TUBE ABDL/VAG APPR UNI/BI Comment: Tubal ligation FAMILY HISTORY Adopted: Yes Problem Relation Age of Onset Cancer Father lung Heart disease Sister No Known Problems Brother No Kn (more content not included)... Normal [facility] Calvin 02-05-2024 CNPN Telephone (FAMPWS) MAXIMUS BRADLEY ([id number]) 1975 F Date Time Provider Department 02/05/24 LENY HSU During your visit today, we recorded the following information about you: Leny Hsu MD 02/05/2024 10:12 AM Signed Blood work shows mild anemia with high platelet counts. Recommend obtaining additional blood work to rule out iron deficiency, GI bleed, and inflammation as possible causes. Come in for repeat labs this week. Other labs unremarkable. Ruthie Burnham LPN 02/05/2024 10:16 AM Signed Attempted call to patient- recording states patient unavailable and to call again later. No VM available. Attempt call back later. ESCOBAR Barron Lori, LPN 02/05/2024 10:21 AM Signed Pt notified of results AND instructions to repeat labs, pt voiced understanding. Ruthie Mcgill LPN Allergies As of Date: 02/05/2024 Noted Allergy Reaction BEE POLLEN 01/23/2019 10 - Anaphylaxis ADDERALL (DEXTROAMPHETAMINE-AMPHE* 9 - Itching AMPHETAMINE 12/13/2016 9 - Itching IMITREX (SUMATRIPTAN) 01/11/2015 14 - Other: See Comments Comments: palpitations Date Reviewed: 02/04/2024 Reviewed by: Ruthie Burnham LPN - Fully Assessed Reason for Visit: Results [95] Primary Visit Diagnosis:Microcytic anemia [D50.9] Other Visit Diagnosis:Thrombocytosis [D75.839] Order(s):IRON AND TIBC [SQIRON] Order #: [id number] FUTURE FERRITIN [SQFERR] Order #: [id number] FUTURE SEDIMENTATION RATE, WESTERGREN [SQWSR] Order #: [id number] FUTURE C-REACTIVE PROTEIN [SQCRP] Order #: [id number] FUTURE IMMUNOCHEMICAL FECAL OCCULT BLOOD TEST [SQIFOBT] Order #: [id number]. #:[id number] PATHOLOGIST INTERPRETATION WITH CBC AND DIFF [SQSTREV] Order #: [id number] FUTURE Prescriptions as of 02/05/2024 - naproxen (NAPROSYN) 500 mg tablet Take 1 tablet by mouth two times a day as needed for up to 15 days. Take with food. - buPROPion XL (WELLBUTRIN XL) 300 mg 24 hr tablet Take 1 tablet by mouth once daily. - loratadine (CLARITIN) 10 mg tablet Take 1 tablet by mouth once daily. - sucralfate (CARAFATE) 100 mg/mL suspension TAKE 10ML BY MOUTH TWICE A DAY - fluticasone (FLONASE) 50 mcg/actuation nasal spray Use 2 Sprays in each nostril once daily. Rinse mouth after use. - clotrimazole (LOTRIMIN) 1 % cream Apply BID to rash until rash goes away, and then continue for 1 more week. - folic acid 1 mg tablet take 1 tablet by mouth daily - venlafaxine (EFFEXOR) 100 mg tablet Take 1 tablet by mouth two times a day. - topiramate (TOPAMAX) 25 mg capsule Take 2 capsules by mouth two times a day. - cyanocobalamin (VITAMIN B-12) 1,000 mcg tab Take 1 tablet by mouth once daily. - omeprazole (PRILOSEC) 40 mg capsule Take 1 capsule by mouth once daily. - albuterol HFA (VENTOLIN HFA) 90 mcg/actuation inhaler Inhale 2 Puffs as instructed every 4 hours as needed for wheezing/shortness of breath. - busPIRone (BUSPAR) 5 mg tablet Take 1 tablet by mouth two times a day. - levothyroxine (SYNTHROID) 75 mcg tablet Take 1 tablet by mouth once daily. Take on empty stomach. For Thyroid - VITAMIN D-3 50 mcg (2,000 unit) tablet TAKE 2 TABLETS (4000 UNITS) BY MOUTH ONCE DAILY - naratriptan (AMERGE) 2.5 mg tablet Take 1 tablet (2.5 mg) by mouth as directed. at the onset of headache; if headache returns or does not fully resolve, the dose may be repeated after 4 hours; do not exceed five(5) mg in 24 hours. NO more than 10 doses in a month. Problem List As Of Date 02/05/2024 Noted Resolved Abdominal pain, epigastric [R10.13] 07/22/2013 Hypothyroidism [E03.9] 12/06/2010 Enlarged thyroid [E04.9] 12/06/2010 Diarrhea [R19.7] 07/22/2013 01/11/2015 Menorrhagia [N92.0] 10/07/2013 Migraines [G43.909] 01/04/2015 01/11/2015 Essential hypertension [I10] 01/04/2015 Migraine headache without aura [G43.009] 01/11/2015 Low blood sugar [E16.2] 03/29/2015 12/30/2019 Depression [F32.A] Moderate episode of recurrent major depressive *07/17/2023 Claudication (HCC) [I73.9] 07/17/2023 07/17/2023 Obesity [E66.9] 01/14/2024 Encounter Status:Closed by RUTHIE MCGILL on 02/05/[address] [facility] CBC W Auto Differential pane l (Bld)on 02-04-2024 Basophils (Bld) [#/Vol] 0.10 10*3/uL Normal <0.[address] [facility] Comment on above: Order Comment: Speci men Type: BLOOD SPECIMENOrdering Facility: [facility] Address: [address] [place] [address] Performed By: #### 5 7021-8 ####[facility] LABCLIA [id number] [place] [address] [place] Basophils/100 WBC (Bld) 1.0 % Normal [facility] Comment on above: Order Comment: Speci men Type: BLOOD SPECIMENOrdering Facility: [facility] Address: [address] [place] [address] Performed By: #### 5 7021-8 ####[facility] LABCLIA [id number] [place] [address] [place] Differential cell count method Nom (Bld) Auto Normal [facility] Comment on above: Order Comment: Speci men Type: BLOOD SPECIMENOrdering Facility: [facility] Address: [address] [place] [address] Performed By: #### 5 7021-8 ####[facility] LABCLIA [id number] [place] [address] [place] Eosinophils (Bld) [#/Vol] 0.30 10*3/uL Normal <0.[address] [facility] Comment on above: Order Comment: Speci men Type: BLOOD SPECIMENOrdering Facility: [facility] Address: [address] [place] [address] Performed By: #### 5 7021-8 ####[facility] LABCLIA [id number] [place] [address] [place] Eosinophils/100 WBC (Bld) 3.0 % Normal [facility] Comment on above: Order Comment: Speci men Type: BLOOD SPECIMENOrdering Facility: [facility] Address: [address] [place] [address] Performed By: #### 5 7021-8 ####[facility] LABIA [id number] [place] [address] [place] Erythrocyte distribution width (RBC) [Ratio] 14.3 % Normal 11.5-15.[address] [facility] Comment on above: Order Comment: Speci men Type: BLOOD SPECIMENOrdering Facility: [facility] Address: [address] [place] [address] Performed By: #### 5 7021-8 ####[facility] LABIA [id number] [place] [address] [place] Hematocrit (Bld) [Volume fraction] 38.1 % Normal 36.0-46.[address] [facility] Comment on above: Order Comment: Speci men Type: BLOOD SPECIMENOrdering Facility: [facility] Address: [address] [place] [address] Performed By: #### 5 7021-8 ####[facility] LABIA [id number] [place] [address] [place] Hemoglobin (Bld) [Mass/Vol] 11.4 g/dL Low 11.5-15.[address] [facility] Comment on above: Order Comment: Speci men Type: BLOOD SPECIMENOrdering Facility: [facility] Address: [address] [place] [address] Performed By: #### 5 7021-8 ####[facility] LABCLIA [id number] [place] [address] [place] Immature granulocytes (Bld) [#/Vol] 0.03 10*3/uL Normal <0.[address] [facility] Comment on above: Order Comment: Speci men Type: BLOOD SPECIMENOrdering Facility: [facility] Address: [address] [place] [address] Performed By: #### 5 7021-8 ####[facility] LABCLIA [id number] [place] [address] [place] Immature granulocytes/100 WBC (Bld) 0.3 % Normal [facility] Comment on above: Order Comment: Speci men Type: BLOOD SPECIMENOrdering Facility: [facility] Address: [address] [place] [address] Performed By: #### 5 7021-8 ####[facility] LABCLIA [id number] [place] [address] [place] Lymphocytes (Bld) [#/Vol] 2.26 10*3/uL Normal 1.00-4.[address] [facility] Comment on above: Order Comment: Speci men Type: BLOOD SPECIMENOrdering Facility: [facility] Address: [address] [place] [address] Performed By: #### 5 7021-8 ####[facility] LABCLIA [id number] [place] [address] [place] Lymphocytes/100 WBC (Bld) 22.6 % Normal [facility] Comment on above: Order Comment: Speci men Type: BLOOD SPECIMENOrdering Facility: [facility] Address: [address] [place] [address] Performed By: #### 5 7021-8 ####[facility] LABCLIA [id number] [place] [address] [place] MCH (RBC) [Entitic mass] 23.8 pg Low 26.0-34.[address] [facility] Comment on above: Order Comment: Speci men Type: BLOOD SPECIMENOrdering Facility: [facility] Address: [address] [place] [address] Performed By: #### 5 7021-8 ####[facility] LABCLIA [id number] [place] [address] [place] MCHC (RBC) [Mass/Vol] 29.9 g/dL Low 30.5-36.0 [facility] Comment on above: Order Comment: Speci men Type: BLOOD SPECIMENOrdering Facility: [facility] Address: [address] [place] [address] Performed By: #### 5 7021-8 ####[facility] LABIA [id number] [place] [address] [place] MCV (RBC) [Entitic vol] 79.5 fL Low 80.0-100.[address] [facility] Comment on above: Order Comment: Speci men Type: BLOOD SPECIMENOrdering Facility: [facility] Address: [address] [place] [address] Performed By: #### 5 7021-8 ####[facility] LABIA [id number] [place] [address] [place] Monocytes (Bld) [#/Vol] 0.65 10*3/uL Normal <0.[address] [facility] Comment on above: Order Comment: Speci men Type: BLOOD SPECIMENOrdering Facility: [facility] Address: [address] [place] [address] Performed By: #### 5 7021-8 ####[facility] LABIA [id number] [place] [address] [place] Monocytes/100 WBC (Bld) 6.5 % Normal [facility] Comment on above: Order Comment: Speci men Type: BLOOD SPECIMENOrdering Facility: [facility] Address: [address] [place] [address] Performed By: #### 5 7021-8 ####[facility] LABCLIA [id number] [place] [address] [place] Neutrophils (Bld) [#/Vol] 6.66 10*3/uL Normal 1.45-7.[address] [facility] Comment on above: Order Comment: Speci men Type: BLOOD SPECIMENOrdering Facility: [facility] Address: [address] [place] [address] Performed By: #### 5 7021-8 ####[facility] LABCLIA [id number] [place] [address] [place] Neutrophils/100 WBC (Bld) 66.6 % Normal [facility] Comment on above: Order Comment: Speci men Type: BLOOD SPECIMENOrdering Facility: [facility] Address: [address] [place] [address] Performed By: #### 5 7021-8 ####[facility] LABCLIA [id number] [place] [address] [place] Nucleated RBC (Bld) [#/Vol] 10*3/uL Normal <0.[address] [facility] Comment on above: Order Comment: Speci men Type: BLOOD SPECIMENOrdering Facility: [facility] Address: [address] [place] [address] Performed By: #### 5 7021-8 ####[facility] LABCLIA [id number] [place] [address] [place] Nucleated RBC/100 WBC (Bld) [Ratio] 0.0 /100 WBC Normal [facility] Comment on above: Order Comment: Speci men Type: BLOOD SPECIMENOrdering Facility: [facility] Address: [address] [place] [address] Performed By: #### 5 7021-8 ####[facility] LABCLIA [id number] [address] [id number] [address] [place] Platelet mean volume (Bld) [Entitic vol] 10.3 fL Normal 9.0-12.[address] [facility] Comment on above: Order Comment: Speci men Type: BLOOD SPECIMENOrdering Facility: [facility] Address: [address] [place] [address] Performed By: #### 5 7021-8 ####[facility] LABIA [id number] [place] [address] [place] Platelets (Bld) [#/Vol] 523 10*3/uL High 150-[address] [facility] Comment on above: Order Comment: Speci men Type: BLOOD SPECIMENOrdering Facility: [facility] Address: [address] [place] [address] Performed By: #### 5 7021-8 ####[facility] LABIA [id number] [place] [address] [place] RBC (Bld) [#/Vol] 4.79 10*6/uL Normal 3.90-5.20 [facility] Comment on above: Order Comment: Speci men Type: BLOOD SPECIMENOrdering Facility: [facility] Address: [address] [place] [address] Performed By: #### 5 7021-8 ####[facility] LABIA [id number] [place] [address] [place] WBC (Bld) [#/Vol] 10.00 10*3/uL Normal 3.70-11.00 [facility] Comment on above: Order Comment: Speci men Type: BLOOD SPECIMENOrdering Facility: [facility] Address: [address] [place] [address] Performed By: #### 5 7021-8 ####[facility] LABIA [id number] [place] [address] [place] CNOVon 02-04-2024 [facility] MAXIMUS BRADLEY ([id number]) 1975 F Date Time Provider Department 02/04/24 11:00 AM LENY HSU During your visit today, we recorded the following information about you: Pulse Respiration Blood pressure Weight 84/minute 16/minute 128/76 97 kg Leny Hsu MD 02/04/2024 12:24 PM Signed Chief Complaint Patient presents with: Pain: Left arm pain c/o from last visit. HPI Maximus Bradley is a 48 year old female who presents here today for Above Complaints.. Patient complaining today of left elbow and forearm pain which stared about 6-7 weeks ago. Pain described as intermittent aching, currently 0/10. Occurs with lifting more than 10 lbs and with elbow flexion. States that she was evaluated at [facility] on 01/16 and they obtained xray which was normal and they started her on Naproxen BID which has not helped with pain. Denies fall/injury, bruising, swelling, erythema, fever/chills, weakness, numbness/tingling. Feels like symptoms have been stable. Patient is left handed. Past medical history, appointments, medications, allergies reviewed. Previous Medical History PAST MEDICAL HISTORY Diagnosis Date Abdominal pain, epigastric Abnormal mammogram 09/14/2016 Acute gastritis without mention of hemorrhage Anxiety Chest pain Class 1 obesity due to excess calories without serious comorbidity with body mass index (BMI) of 34.0 to 34.9 in adult Depression Disability, developmental Enlarged thyroid Gastroesophageal reflux disease with esophagitis without hemorrhage Hypothyroidism LLQ pain 10/07/2013 Low blood sugar 03/29/2015 Migraines [facility] neurology Obesity Plantar warts Reflux esophagitis Urinary retention Pablo Arrington Previous Surgical History PAST SURGICAL HISTORY Procedure Laterality Date BX OF BREAST; INCISIONAL Left 09/05/2023 COLONOSCOPY 11/28/2021 repeat in 10 years DILATION AND CURETTAGE DXAND/THER NONOBSTETRIC EGD W/O BRSH SPEC VARICIES INJ 01/30/2022 ESOPHAGOGASTRODUODENOSCOPY TRANSORAL DIAGNOSTIC 07/04/2005 EGD FNA WITH IMAGING Right 09/26/2016 U/S FNA UOQ right breast LIG/TRNSXJ FLP TUBE ABDL/VAG APPR UNI/BI Tubal ligation Family History FAMILY HISTORY Adopted: Yes Problem Relation Age of Onset Cancer Father lung Heart disease Sister No Known Problems Brother No Known Problems Brother other (Liver Disease) Paternal Grandmother Migraines Paternal Grandmother Cancer Paternal Grandfather Lung No Known Problems Son Cancer Paternal Uncle Throat No Ocular Disease No Family History Patient Allergies ALLERGIES Allergen Reactions Bee Pollen Anaphylaxis Adderall [Dextroamp* Itching Amphetamine Itching Imitrex [Sumatripta* Other: See Comments palpitations Current Medications Current Outpatient Medications on File Prior to Visit Medication Sig buPROPion XL (WELLBUTRIN XL) 300 mg 24 hr tablet Take 1 tablet by mouth once daily. loratadine (CLARITIN) 10 mg tablet Take 1 tablet by mouth once daily. sucralfate (CARAFATE) 100 mg/mL suspension TAKE 10ML BY MOUTH TWICE A DAY fluticasone (FLONASE) 50 mcg/actuation nasal spray Use 2 Sprays in each nostril once daily. Rinse mouth after use. clotrimazole (LOTRIMIN) 1 % cream Apply BID to rash until rash goes away, and then continue for 1 more week. folic acid 1 mg tablet take 1 tablet by mouth daily venlafaxine (EFFEXOR) 100 mg tablet Take 1 tablet by mouth two times a day. topiramate (TOPAMAX) 25 mg capsule Take 2 capsules by mouth two times a day. cyanocobalamin (VITAMIN B-12) 1,000 mcg tab Take 1 tablet by mouth once daily. omeprazole (PRILOSEC) 40 mg capsule Take 1 capsule by mouth once daily. albuterol HFA (VENTOLIN HFA) 90 mcg/actuation inhaler Inhale 2 Puffs as instructed every 4 hours as needed for wheezing/shortness of breath. busPIRone (BUSPAR) 5 mg tablet Take 1 tablet by mouth two times a day. levothyroxine (SYNTHROID) 75 mcg tablet Take 1 tablet by mouth once daily. Take on empty stomach. For Thyroid VITAMIN D-3 50 mcg (2,000 unit) tablet TAKE 2 TABLETS (4000 UNITS) BY MOUTH ONCE DAILY naratriptan (AMERGE) 2.5 mg tablet Take 1 tablet (2.5 mg) by mouth as directed. at the onset of headache; if headache returns or does not fully resolve, the dose may be repeated after 4 hours; do not exceed five(5) mg in 24 hours. NO more than 10 doses in a month. No current facility-administered medications on file prior to visit. Social History Social History Tobacco Use Smoking status: Former Packs/day: 1 Types: Cigarettes Smokeless tobacco: Former Quit date: 04/25/2015 Vaping Use Vaping Use: Never used Substance Use Topics Alcohol use: Yes Comment: less than weekly use Drug use: Never Review of Symptoms REVIEW OF SYSTEMS See HPI EXAM: BP 128/76 Pulse 84 Resp 16 Wt 97 kg (213 lb 12.8 oz) LMP (more content not included)... Normal [facility] Comprehensive metabolic 2000 panelon 02-04-2024 Albumin [Mass/Vol] 3.9 g/dL Normal 3.9-4.9 [facility] Comment on above: Order Comment: Speci men Type: BLOOD SPECIMENOrdering Facility: [facility] Address: [address] [place] [address] Performed By: #### 2 4323-8, 3016-3, LIPNF ####[facility] LABCLIA [id number] [place] [address] [place] ALP [Catalytic activity/Vol] 95 U/L Normal 34-[address] [facility] Comment on above: Order Comment: Speci men Type: BLOOD SPECIMENOrdering Facility: [facility] Address: [address] [place] [address] Performed By: #### 2 4323-8, 3016-3, LIPNF ####[facility] LABCLIA [id number] [place] [address] [place] ALT [Catalytic activity/Vol] 12 U/L Normal 7-[address] [facility] Comment on above: Order Comment: Speci men Type: BLOOD SPECIMENOrdering Facility: [facility] Address: [address] [place] [address] Performed By: #### 2 4323-8, 3016-3, LIPNF ####[facility] LABCLIA [id number] [address] [address] [place] Anion gap [Moles/Vol] 10 mmol/L Normal 8-15 [facility] Comment on above: Order Comment: Speci men Type: BLOOD SPECIMENOrdering Facility: [facility] Address: [address] [place] [address] Performed By: #### 2 4323-8, 3015-3, LIPNF ####[facility] LABCLIA [id number] [place] [address] [place] AST [Catalytic activity/Vol] 15 U/L Normal 13-[address] [facility] Comment on above: Order Comment: Speci men Type: BLOOD SPECIMENOrdering Facility: [facility] Address: [address] [place] [address] Performed By: #### 2 4323-8, 3015-3, LIPNF ####[facility] LABCLIA [id number] [place] [id number] [place] Bilirubin [Mass/Vol] 0.2 mg/dL Normal 0.2-1.3 [facility] Comment on above: Order Comment: Speci men Type: BLOOD SPECIMENOrdering Facility: [facility] Address: [address] [place], [place] [id number] Performed By: #### 2 4323-8, 3015-3, LIPNF ####[facility] LABCLIA [id number] [address] [address] [place] Calcium [Mass/Vol] 9.2 mg/dL Normal 8.5-10.2 [facility] Comment on above: Order Comment: Speci men Type: BLOOD SPECIMENOrdering Facility: [facility] Address: [address] [place], [place] [id number] Performed By: #### 2 4323-8, 3015-3, LIPNF ####[facility] LABCLIA [id number] [place] [id number] [place] Chloride [Moles/Vol] 107 mmol/L Normal 98-107 [facility] Comment on above: Order Comment: Speci men Type: BLOOD SPECIMENOrdering Facility: [facility] Address: [address] [place] [address] Performed By: #### 2 4323-8, 3016-3, LIPNF ####[facility] LABIA [id number] [place] [address] [place] CO2 [Moles/Vol] 23 mmol/L Normal 22-[address] [facility] Comment on above: Order Comment: Speci men Type: BLOOD SPECIMENOrdering Facility: [facility] Address: [address] [place] [address] Performed By: #### 2 4323-8, 3016-3, LIPNF ####[facility] LABIA [id number] [place] [address] [place] Creatinine [Mass/Vol] 0.83 mg/dL Normal 0.58-0.96 [facility] Comment on above: Order Comment: Speci men Type: BLOOD SPECIMENOrdering Facility: [facility] Address: [address] [place] [address] Performed By: #### 2 4323-8, 3016-3, LIPNF ####[facility] LABIA [id number] [place] [address] [place] Creatinine and Glomerular filtration rate.predicted panel (S/P/Bld) 88 mL/min/1.73m??? Normal >=[address] [facility] Comment on above: Order Comment: Speci men Type: BLOOD SPECIMENOrdering Facility: [facility] Address: [address] [place] [address] Result Comment: Romi mated Glomerular Filtration Rate (eGFR) is calculated using the 2020 CKD-EPI creatinine equation. This equation utilizes serum creatinine, sex, and age as parameters. The creatinine assay has traceable calibration to isotope dilution-mass spectrometry. Refer to KDIGO guidelines for clinical interpretation. In patients with unstable renal function, e.g. those with acute kidney injury, the eGFR may not accurately reflect actual GFR. Performed By: #### 2 4323-8, 6-3, LIPNF ####[facility] LABCLIA [id number] [address] [address] [place] Glucose [Mass/Vol] 76 mg/dL Normal 74-99 [facility] Comment on above: Order Comment: Speci men Type: BLOOD SPECIMENOrdering Facility: [facility] Address: [address] [place] [address] Result Comment: The [place] Diabetes Association (ADA) provides guidance for cutoff values for fasting glucose and random glucose. The ADA defines fasting as no caloric intake for at least 8 hours. Fasting plasma glucose results between 100 to 125 mg/dL indicate increased risk for diabetes (prediabetes). Fasting plasma glucose results greater than or equal to 126 mg/dL meet the criteria for diagnosis of diabetes. In the absence of unequivocal hyperglycemia, results should be confirmed by repeat testing. In a patient with classic symptoms of hyperglycemia or hyperglycemic crisis, random plasma glucose results greater than or equal to 200 mg/dL meet the criteria for diagnosis of diabetes. Reference: Standards of Medical Care in Diabetes 2016, [place] Diabetes Association. Diabetes Care. 2016.39(Suppl 1). Performed By: #### 2 4323-8, 3015-3, LIPNF ####[facility] LABCLIA [id number] [address] [address] [place] Potassium [Moles/Vol] 4.0 mmol/L Normal 3.7-5.1 [facility] Comment on above: Order Comment: Speci men Type: BLOOD SPECIMENOrdering Facility: [facility] Address: [address] [place] [address] Performed By: #### 2 4323-8, 3015-3, LIPNF ####[facility] LABCLIA [id number] [address] [address] [place] Protein [Mass/Vol] 6.3 g/dL Normal 6.3-8.0 [facility] Comment on above: Order Comment: Speci men Type: BLOOD SPECIMENOrdering Facility: [facility] Address: [address] [place] [address] Performed By: #### 2 4323-8, 3016-3, LIPNF ####[facility] LABCLIA [id number] [place] [address] [place] Sodium [Moles/Vol] 140 mmol/L Normal 136-144 [facility] Comment on above: Order Comment: Speci men Type: BLOOD SPECIMENOrdering Facility: [facility] Address: [address] [place] [address] Performed By: #### 2 4323-8, 6-3, LIPNF ####[facility] LABCLIA [id number] [place] [address] [place] Urea nitrogen [Mass/Vol] 7 mg/dL Normal 7-[address] [facility] Comment on above: Order Comment: Speci men Type: BLOOD SPECIMENOrdering Facility: [facility] Address: [address] [place] [address] Performed By: #### 2 4323-8, 3015-3, LIPNF ####[facility] LABCLIA [id number] [place] [id number] [place] LIPID PANEL, NONFASTINGon Cholesterol [Mass/Vol] 184 mg/dL Normal <200 [facility] Comment on above: Order Comment: Speci men Type: BLOOD SPECIMENOrdering Facility: [facility] Address: [address] [place] [address] Result Comment: <200 mg/dL, Desirable 200-239 mg/dL, Borderline high >239 mg/dL, High Performed By: #### 2 4323-8, 3016-3, LIPNF ####[facility] LABCLIA [id number] [place] [id number] [place] HDL CHOLESTEROL, NF 38 mg/dL Low >39 [facility] Comment on above: Order Comment: Speci men Type: BLOOD SPECIMENOrdering Facility: [facility] Address: [address] [place] [address] Result Comment: 40-5 9 mg/dL, Acceptable >59 mg/dL, High: Negative risk factor for coronary heart disease <40 mg/dL, Low: Positive risk factor for coronary heart disease Performed By: #### 2 4323-8, 3016-3, LIPNF ####[facility] LABCLIA [id number] [address] LDL CHOLESTEROL, NF 124 mg/dL High <100 [facility] Comment on above: Order Comment: Kennethi arik Type: BLOOD SPECIMENOrdering Facility: [facility] Address: [address] [place] [address] Result Comment: <100 mg/dL, Optimal 100-129 mg/dL, Near optimal/above optimal 130-159 mg/dL, Borderline high 160-189 mg/dL, High >189 mg/dL, Very high Secondary prevention optimal LDL Cholesterol levels are recommended to be < 70 mg/dL Performed By: #### 2 4323-8, 3016-3, LIPNF ####[facility] LABCLIA [id number] [address] LDL/HDL RATIO, NF 3.26 mg/dL High <2.54 [facility] Comment on above: Order Comment: Speci arik Type: BLOOD SPECIMENOrdering Facility: [facility] Address: [address] [place] [address] Result Comment: Refe rence: 1. National Cholesterol Education Program ATP III Guideline At-A-Glance Quick Desk Reference: National Heart, Lung, and Blood [place]. National Institutes of Health. 2001: NIH Publication No. 01-3305. 2. An International Atherosclerosis Society position paper: global recommendations for the management of dyslipidemia: executive summary, Atherosclerosis. 2014: 232(2):410-413. Performed By: #### 2 4323-8, 3016-3, LIPNF ####[facility] LABCLIA [id number] [place] [address] [place] NON HDL CHOL, NF 146 mg/dL High <130 [facility] Comment on above: Order Comment: Speci men Type: BLOOD SPECIMENOrdering Facility: [facility] Address: [address] [place] [address] Result Comment: <130 mg/dL, Optimal 130-159 mg/dL, Near optimal/above optimal 160-189 mg/dL, Borderline high 190-219 mg/dL, High >219 mg/dL, Very high Secondary prevention optimal non HDL Cholesterol levels are recommended to be <100 mg/dL Performed By: #### 2 4323-8, 3016-3, LIPNF ####[facility] LABCLIA [id number] [place] [address] [place] T CHOL/HDL RATIO NF 4.84 mg/dL Normal <5.10 [facility] Comment on above: Order Comment: Speci men Type: BLOOD SPECIMENOrdering Facility: [facility] Address: [address] [place] [address] Performed By: #### 2 4323-8, 3016-3, LIPNF ####[facility] LABCLIA [id number] [place] [address] [place] TRIGLYCERIDES, NF 110 mg/dL Normal <150 [facility] Comment on above: Order Comment: Speci men Type: BLOOD SPECIMENOrdering Facility: [facility] Address: [address] [place] [address] Result Comment: <150 mg/dL, Normal 150-199 mg/dL, Borderline high 200-499 mg/dL, High >499 mg/dL, Very high Performed By: #### 2 4323-8, 3016-3, LIPNF ####[facility] LABCLIA [id number] [place] [address] [place] VLDL CHOLESTEROL, NF 22 mg/dL Normal <30 [facility] Comment on above: Order Comment: Speci men Type: BLOOD SPECIMENOrdering Facility: [facility] Address: [address] [place] [id number] Performed By: #### 2 4323-8, 3016-3, ZULAY ####[facility] LABCLIA [id number] [place] [id number] [place] TSH SerPl-aCncon 02-04-2024 TSH Qn 1.820 m[IU]/L Normal 0.270-4.[address] [facility] Comment on above: Order Comment: Yani elise Type: BLOOD SPECIMENOrdering Facility: [facility] Address: [address] [place] [address] Result Comment: If t he patient is , TSH reference range varies by gestational period: First Trimester (weeks 9-12): 0.180-2.990 mIU/L Second Trimester: 0.110-3.980 mIU/L Third Trimester: 0.480-4.710 mIU/L Loc Sparrow et al. A Practical Approach for the Verifications and Determination of Site- and Trimester-Specific Reference Intervals for Thyroid Function tests in . Thyroid, 2019:29:3:412-420. Dominick E, et al. 2017 Guidelines of the [place] Thyroid Association for the Diagnosis and Management of Thyroid Disease during and the . Thyroid, 2017:27:3:315-389. Performed By: #### 2 4323-8, 3016-3, ZULAY ####[facility] LABCLIA [id number] [place] [id number] [place] CNPCasandra 01-24-2024 CNPN Telephone (FAMPWS) MAXIMUS BRADLEY ([id number]) 1975 F Date Time Provider Department 01/24/24 LENY HSU FAMPWS During your visit today, we recorded the following information about you: Marya Long MA 01/24/2024 3:06 PM Signed Pt had Echo and Stress test completed, results attached below. Scan on 01/23/2024 3:00 PM by Provider, Cam, PAFannyC: Stress Test Scan on 01/23/2024 5:21 PM by Provider, Cam, DEEC: Echo GIANNI Fang Christopher B, MD 01/25/2024 7:50 AM Signed Patient's echo is normal. Her stress test did not show any signs of heart strain or blockage, but she was not able to get to maximal recommended HR, which lowers its sensitivity. With both tests being normal, I would not recommend further cardiac workup for chest pain unless symptoms persist. Tamica Gamez LPN 01/25/2024 8:22 AM Signed Phoned patient no voicemail set up, try again later. Terry Esteves RN 01/25/2024 8:47 AM Signed Pt returned call and given provider's message below with verbalized understanding. Allergies As of Date: 01/24/2024 Noted Allergy Reaction BEE POLLEN 01/23/2019 10 - Anaphylaxis ADDERALL (DEXTROAMPHETAMINE-AMPHE* 9 - Itching AMPHETAMINE 12/13/2016 9 - Itching IMITREX (SUMATRIPTAN) 01/11/2015 14 - Other: See Comments Comments: palpitations Date Reviewed: 01/14/2024 Reviewed by: Ruthie Burnham LPN - Fully Assessed Reason for Visit: Results [95] Cmt: Echo and stress test Prescriptions as of 01/25/2024 - fluticasone (FLONASE) 50 mcg/actuation nasal spray Use 2 Sprays in each nostril once daily. Rinse mouth after use. - clotrimazole (LOTRIMIN) 1 % cream Apply BID to rash until rash goes away, and then continue for 1 more week. - sucralfate (CARAFATE) 100 mg/mL suspension TAKE 10ML BY MOUTH TWICE A DAY - folic acid 1 mg tablet take 1 tablet by mouth daily - venlafaxine (EFFEXOR) 100 mg tablet Take 1 tablet by mouth two times a day. - topiramate (TOPAMAX) 25 mg capsule Take 2 capsules by mouth two times a day. - cyanocobalamin (VITAMIN B-12) 1,000 mcg tab Take 1 tablet by mouth once daily. - omeprazole (PRILOSEC) 40 mg capsule Take 1 capsule by mouth once daily. - albuterol HFA (VENTOLIN HFA) 90 mcg/actuation inhaler Inhale 2 Puffs as instructed every 4 hours as needed for wheezing/shortness of breath. - busPIRone (BUSPAR) 5 mg tablet Take 1 tablet by mouth two times a day. - levothyroxine (SYNTHROID) 75 mcg tablet Take 1 tablet by mouth once daily. Take on empty stomach. For Thyroid - VITAMIN D-3 50 mcg (2,000 unit) tablet TAKE 2 TABLETS (4000 UNITS) BY MOUTH ONCE DAILY - naratriptan (AMERGE) 2.5 mg tablet Take 1 tablet (2.5 mg) by mouth as directed. at the onset of headache; if headache returns or does not fully resolve, the dose may be repeated after 4 hours; do not exceed five(5) mg in 24 hours. NO more than 10 doses in a month. - loratadine (CLARITIN) 10 mg tablet Take 1 tablet by mouth once daily. - buPROPion XL (WELLBUTRIN XL) 300 mg 24 hr tablet Take 1 tablet by mouth once daily. Problem List As Of Date 01/24/2024 Noted Resolved Abdominal pain, epigastric [R10.13] 07/22/2013 Hypothyroidism [E03.9] 12/06/2010 Enlarged thyroid [E04.9] 12/06/2010 Diarrhea [R19.7] 07/22/2013 01/11/2015 Menorrhagia [N92.0] 10/07/2013 Migraines [G43.909] 01/04/2015 01/11/2015 Essential hypertension [I10] 01/04/2015 Migraine headache without aura [G43.009] 01/11/2015 Low blood sugar [E16.2] 03/29/2015 12/30/2019 Depression [F32.A] Moderate episode of recurrent major depressive *07/17/2023 Claudication (HCC) [I73.9] 07/17/2023 07/17/2023 Obesity [E66.9] 01/14/2024 Encounter Status:Closed by Terry ESTEVES on 01/25/[address] [facility] CNOVon 01-14-2024 CNOV Office Visit (FAMPWS ) MAXIMUS BRADLEY ([id number]) 1975 F Date Time Provider Department 01/14/24 1:20 PM [facility] During your visit today, we recorded the following information about you: Pulse Respiration Blood pressure Weight 97/minute 16/minute 120/84 97.1 kg Leny Hsu MD 01/18/2024 11:37 AM Signed Chief Complaint Patient presents with: Follow Up Physical HPI Maximus Bradley is a 48 year old female who presents here today for Above Complaints. Patient without recent hospitalizations or ER visits. Patient evaluated for chest pain about 2 weeks ago. EKG was normal. Stress test and echo are pending. Patient denies any recurrent chest pain since. Patient with history of migraines which is managed by [facility] neurology. Last OV in September reviewed with patient. Getting migraine headaches every other week on Topamax and uses Amerge PRN for breakthrough which works "some of the time". Patient has follow up in 1 month. Hypothyroidism: Tolerating synthroid without side effects. Asymptomatic on current regimen. Due for TSH. Anxiety and depression well controlled on current regimen without side effects. Denies SI/HI, panic symptoms. Not seeing counseling at this time. GERD controlled on omeprazole. Up to date on cancer screening. Refusing vaccinations. Past medical history, appointments, medications, allergies reviewed. Previous Medical History PAST MEDICAL HISTORY Diagnosis Date Abdominal pain, epigastric Abnormal mammogram 09/14/2016 Acute gastritis without mention of hemorrhage Anxiety Chest pain Class 1 obesity due to excess calories without serious comorbidity with body mass index (BMI) of 34.0 to 34.9 in adult Depression Disability, developmental Gastroesophageal reflux disease with esophagitis without hemorrhage Hypothyroidism LLQ pain 10/07/2013 Low blood sugar 03/29/2015 Migraines Plantar warts Reflux esophagitis Urinary retention Pablo Murphy Previous Surgical History PAST SURGICAL HISTORY Procedure Laterality Date BX OF BREAST; INCISIONAL Left 09/05/2023 COLONOSCOPY 11/28/2021 repeat in 10 years DILATION AND CURETTAGE DXAND/THER NONOBSTETRIC EGD W/O BRSH SPEC VARICIES INJ 01/30/2022 ESOPHAGOGASTRODUODENOSCOPY TRANSORAL DIAGNOSTIC 07/04/2005 EGD FNA WITH IMAGING Right 09/26/2016 U/S FNA UOQ right breast LIG/TRNSXJ FLP TUBE ABDL/VAG APPR UNI/BI Tubal ligation Family History FAMILY HISTORY Adopted: Yes Problem Relation Age of Onset Cancer Father lung Heart disease Sister No Known Problems Brother No Known Problems Brother other (Liver Disease) Paternal Grandmother Cancer Paternal Grandfather Lung No Known Problems Son Cancer Paternal Uncle Throat No Ocular Disease No Family History Patient Allergies ALLERGIES Allergen Reactions Bee Pollen Anaphylaxis Adderall [Dextroamp* Itching Amphetamine Itching Imitrex [Sumatripta* Other: See Comments palpitations Current Medications Current Outpatient Medications on File Prior to Visit Medication Sig fluticasone (FLONASE) 50 mcg/actuation nasal spray Use 2 Sprays in each nostril once daily. Rinse mouth after use. clotrimazole (LOTRIMIN) 1 % cream Apply BID to rash until rash goes away, and then continue for 1 more week. sucralfate (CARAFATE) 100 mg/mL suspension TAKE 10ML BY MOUTH TWICE A DAY folic acid 1 mg tablet take 1 tablet by mouth daily venlafaxine (EFFEXOR) 100 mg tablet Take 1 tablet by mouth two times a day. topiramate (TOPAMAX) 25 mg capsule Take 2 capsules by mouth two times a day. cyanocobalamin (VITAMIN B-12) 1,000 mcg tab Take 1 tablet by mouth once daily. omeprazole (PRILOSEC) 40 mg capsule Take 1 capsule by mouth once daily. albuterol HFA (VENTOLIN HFA) 90 mcg/actuation inhaler Inhale 2 Puffs as instructed every 4 hours as needed for wheezing/shortness of breath. busPIRone (BUSPAR) 5 mg tablet Take 1 tablet by mouth two times a day. levothyroxine (SYNTHROID) 75 mcg tablet Take 1 tablet by mouth once daily. Take on empty stomach. For Thyroid VITAMIN D-3 50 mcg (2,000 unit) tablet TAKE 2 TABLETS (4000 UNITS) BY MOUTH ONCE DAILY naratriptan (AMERGE) 2.5 mg tablet Take 1 tablet (2.5 mg) by mouth as directed. at the onset of headache; if headache returns or does not fully resolve, the dose may be repeated after 4 hours; do not exceed five(5) mg in 24 hours. NO more than 10 doses in a month. loratadine (CLARITIN) 10 mg tablet Take 1 tablet by mouth once daily. buPROPion XL (WELLBUTRIN XL) 300 mg 24 hr tablet Take 1 tablet by mouth once daily. meloxicam (MOBIC) 15 mg tablet Take 1 tablet by mouth once daily. With food. No current facility-administered medications on file prior to visit. Social History Social History Tobacco Use Smoking status: Former Packs/day: 1 Types: Cigarettes Smokeless tobacco: Former (more content not included)... [facility] [facility] MAXIMUS BRADLEY ([id number]) 1975 F Date Time Provider Department 01/02/24 11:20 AM [facility] During your visit today, we recorded the following information about you: Pulse Respiration Blood pressure Weight 81/minute 16/minute 128/84 96.2 kg Last Period 11/29/23 Leny Hsu MD 01/02/2024 12:09 PM Signed Chief Complaint Patient presents with: Acute Visit: Left ear infection HPI Maximus Bradley is a 48 year old female who presents here today for Above Complaints.. Patient complaining today of left sided chest pain which started about 2 days ago. Described as a pressure sensation which lasts about 5-10 minutes. Usually occurs while at rest. No exacerbating factors. Not treating with anything OTC. Admits to diaphoresis, improvement with rest. Denies radiation to neck or jaw, SOB, lightheadedness, nausea, worsening with exertion, palpitations. Also states that she gets left ear fullness if she tilts her head to the left or lies on that side which started about 2 days ago. Gets muffled hearing as well and has had some nasal congestion. Tried cleaning out with peroxide and a q tip a couple days ago which did not help. Denies hearing loss, fever/chills, drainage, sore throat, swollen glands. Past medical history, appointments, medications, allergies reviewed. Previous Medical History PAST MEDICAL HISTORY Diagnosis Date Abdominal pain, epigastric Abnormal mammogram 09/14/2016 Acute gastritis without mention of hemorrhage Anxiety Class 1 obesity due to excess calories without serious comorbidity with body mass index (BMI) of 34.0 to 34.9 in adult Depression Disability, developmental Gastroesophageal reflux disease with esophagitis without hemorrhage Hypothyroidism LLQ pain 10/07/2013 Low blood sugar 03/29/2015 Migraines Reflux esophagitis Urinary retention Pablo Arrington Previous Surgical History PAST SURGICAL HISTORY Procedure Laterality Date BX OF BREAST; INCISIONAL Left 09/05/2023 COLONOSCOPY 11/28/2021 repeat in 10 years DILATION AND CURETTAGE DXAND/THER NONOBSTETRIC EGD W/O BRSH SPEC VARICIES INJ 01/30/2022 ESOPHAGOGASTRODUODENOSCOPY TRANSORAL DIAGNOSTIC 07/04/2005 EGD FNA WITH IMAGING Right 09/26/2016 U/S FNA UOQ right breast LIG/TRNSXJ FLP TUBE ABDL/VAG APPR UNI/BI Tubal ligation Family History FAMILY HISTORY Adopted: Yes Problem Relation Age of Onset Cancer Father lung Heart disease Sister No Known Problems Sister No Known Problems Brother No Known Problems Brother No Known Problems Brother other (Liver Disease) Paternal Grandmother Cancer Paternal Grandfather Lung No Known Problems Son Cancer Paternal Uncle Throat No Ocular Disease No Family History Patient Allergies ALLERGIES Allergen Reactions Bee Pollen Anaphylaxis Adderall [Dextroamp* Itching Amphetamine Itching Imitrex [Sumatripta* Other: See Comments palpitations Current Medications Current Outpatient Medications on File Prior to Visit Medication Sig clotrimazole (LOTRIMIN) 1 % cream Apply BID to rash until rash goes away, and then continue for 1 more week. folic acid 1 mg tablet take 1 tablet by mouth daily venlafaxine (EFFEXOR) 100 mg tablet Take 1 tablet by mouth two times a day. topiramate (TOPAMAX) 25 mg capsule Take 2 capsules by mouth two times a day. cyanocobalamin (VITAMIN B-12) 1,000 mcg tab Take 1 tablet by mouth once daily. omeprazole (PRILOSEC) 40 mg capsule Take 1 capsule by mouth once daily. albuterol HFA (VENTOLIN HFA) 90 mcg/actuation inhaler Inhale 2 Puffs as instructed every 4 hours as needed for wheezing/shortness of breath. busPIRone (BUSPAR) 5 mg tablet Take 1 tablet by mouth two times a day. levothyroxine (SYNTHROID) 75 mcg tablet Take 1 tablet by mouth once daily. Take on empty stomach. For Thyroid VITAMIN D-3 50 mcg (2,000 unit) tablet TAKE 2 TABLETS (4000 UNITS) BY MOUTH ONCE DAILY naratriptan (AMERGE) 2.5 mg tablet Take 1 tablet (2.5 mg) by mouth as directed. at the onset of headache; if headache returns or does not fully resolve, the dose may be repeated after 4 hours; do not exceed five(5) mg in 24 hours. NO more than 10 doses in a month. loratadine (CLARITIN) 10 mg tablet Take 1 tablet by mouth once daily. buPROPion XL (WELLBUTRIN XL) 300 mg 24 hr tablet Take 1 tablet by mouth once daily. sucralfate (CARAFATE) 100 mg/mL suspension TAKE 10ML BY MOUTH TWICE A DAY (Patient not taking: Reported on 12/19/2023) meloxicam (MOBIC) 15 mg tablet Take 1 tablet by mouth once daily. With food. (Patient not taking: Reported on 09/20/2023) No current facility-administered medications on file prior to visit. Social History Social History Tobacco Use Smoking status: Former Packs/day: 1 Types: Cigarettes Smokeless tobacco: Former Quit date: 04/25/2015 Vaping Use (more content not included)... Normal [facility] ECG COMPLETEon 01-02-2024 Atrial Rate 73 BPM [facility] Calculated P [place] 66 degrees [facility] Calculated R [place] 31 degrees [facility] Calculated T [place] 43 degrees [facility] P-R Interval 154 ms [facility] QRS Duration 90 ms [facility] QT Interval 398 ms [facility] QTC Calculation (Bazett) 438 ms [facility] Ventricular Rate 73 BPM [facility] NORMAL SINUS RHYTHM NORMAL ECG Confirmed by DANI HENDRIX M.D. ([id number]) on 01/02/2024 4:01:27 PM [facility] NAME : TANESHA BRADLEY PID : [id number] : 1975 Gender : Female Race : ORD : [id number] Procedure Date : Jan 02 2024 12:02:13 Edit Date : Jan 02 2024 16:01:28 Diagnosis: NORMAL SINUS RHYTHM NORMAL ECG Confirmed by DANI HENDRIX M.D. ([id number]) on 01/02/2024 4:01:27 PM Test Reason : R07.89 Other chest pain Location : 185 : [facility] Overread By : DANI HENDRIX M.D. Edited By : DANI HENDRIX M.D. Referred By : ISAAC HSU Acquired by : [facility] ECG COMPLETE Ventricular Rate : 7 3 BPM Atrial Rate : 73 BPM P-R Interval : 154 ms QRS Duration : 90 ms Q-T Interval : 398 ms QTC Calculation(Bazett) : 438 ms Calculated P [place] : 66 degrees Calculated R [place] : 31 degrees Calculated T [place] : 43 degrees NORMAL SINUS RHYTHM NORMAL ECG Confirmed by DANI HENDRIX M.D. ([id number]) on 01/02/2024 4:01:27 PM NAME : MAXIMUS BRADLEY PID : [id number] : 1975 Gender : Female Race : ORD : [id number] Procedure Date : Jan 02 2024 12:02:13 Edit Date : Jan 02 2024 16:01:28 Diagnosis: NORMAL SINUS RHYTHM NORMAL ECG Confirmed by DANI HENDRIX M.D. ([id number]) on 01/02/2024 4:01:27 PM Test Reason : R07.89 Other chest pain Location : 185 : [facility] Overread By : DANI HENDRIX M.D. Edited By : DANI HENDRIX M.D. Referred By : ISAAC HSU Acquired by : Peter RODRIGUEZ [facility] CNOVon 12-19-2023 CNOV Office Visit (FAMPWS ) MAXIMUS BRADLEY ([id number]) 1975 F Date Time Provider Department 12/19/23 2:20 PM LENY HSU During your visit today, we recorded the following information about you: Pulse Respiration Blood pressure Weight 96/minute 18/minute 126/78 95.8 kg Leny Hsu MD 12/19/2023 2:36 PM Signed Chief Complaint Patient presents with: Follow Up: Wart on bottom of right foot HPI Maximus Bradley is a 48 year old female who presents here today for Above Complaints.. Patient states that she has wart on the balls of her feet bilaterally which has been present for years. Has tried removing at home with nail clippers. Has not tried OTC wart remover. We did try treating with cryotherapy about a year ago without improvement. Admits to pain with walking. Would like referral order for excision. Would also like refill on clotrimazole for rash under her breasts. Using recently for red rash with itching. Trying to keep the area dry. Rash in her groin has resolved. Past medical history, appointments, medications, allergies reviewed. Previous Medical History PAST MEDICAL HISTORY Diagnosis Date Abdominal pain, epigastric Abnormal mammogram 09/14/2016 Acute gastritis without mention of hemorrhage Anxiety Class 1 obesity due to excess calories without serious comorbidity with body mass index (BMI) of 34.0 to 34.9 in adult Depression Disability, developmental Gastroesophageal reflux disease with esophagitis without hemorrhage Hypothyroidism LLQ pain 10/07/2013 Low blood sugar 03/29/2015 Migraines Reflux esophagitis Urinary retention Pablo Arrington Previous Surgical History PAST SURGICAL HISTORY Procedure Laterality Date BX OF BREAST; INCISIONAL Left 09/05/2023 COLONOSCOPY 11/28/2021 repeat in 10 years DILATION AND CURETTAGE DXAND/THER NONOBSTETRIC EGD W/O BRSH SPEC VARICIES INJ 01/30/2022 ESOPHAGOGASTRODUODENOSCOPY TRANSORAL DIAGNOSTIC 07/04/2005 EGD FNA WITH IMAGING Right 09/26/2016 U/S FNA UOQ right breast LIG/TRNSXJ FLP TUBE ABDL/VAG APPR UNI/BI Tubal ligation Family History FAMILY HISTORY Adopted: Yes Problem Relation Age of Onset Cancer Father lung Heart disease Sister No Known Problems Sister No Known Problems Brother No Known Problems Brother No Known Problems Brother other (Liver Disease) Paternal Grandmother Cancer Paternal Grandfather Lung No Known Problems Son Cancer Paternal Uncle Throat No Ocular Disease No Family History Patient Allergies ALLERGIES Allergen Reactions Bee Pollen Anaphylaxis Adderall [Dextroamp* Itching Amphetamine Itching Imitrex [Sumatripta* Other: See Comments palpitations Current Medications Current Outpatient Medications on File Prior to Visit Medication Sig folic acid 1 mg tablet take 1 tablet by mouth daily venlafaxine (EFFEXOR) 100 mg tablet Take 1 tablet by mouth two times a day. topiramate (TOPAMAX) 25 mg capsule Take 2 capsules by mouth two times a day. clotrimazole (LOTRIMIN) 1 % cream Apply BID to rash until rash goes away, and then continue for 1 more week. cyanocobalamin (VITAMIN B-12) 1,000 mcg tab Take 1 tablet by mouth once daily. omeprazole (PRILOSEC) 40 mg capsule Take 1 capsule by mouth once daily. albuterol HFA (VENTOLIN HFA) 90 mcg/actuation inhaler Inhale 2 Puffs as instructed every 4 hours as needed for wheezing/shortness of breath. busPIRone (BUSPAR) 5 mg tablet Take 1 tablet by mouth two times a day. levothyroxine (SYNTHROID) 75 mcg tablet Take 1 tablet by mouth once daily. Take on empty stomach. For Thyroid VITAMIN D-3 50 mcg (2,000 unit) tablet TAKE 2 TABLETS (4000 UNITS) BY MOUTH ONCE DAILY naratriptan (AMERGE) 2.5 mg tablet Take 1 tablet (2.5 mg) by mouth as directed. at the onset of headache; if headache returns or does not fully resolve, the dose may be repeated after 4 hours; do not exceed five(5) mg in 24 hours. NO more than 10 doses in a month. loratadine (CLARITIN) 10 mg tablet Take 1 tablet by mouth once daily. buPROPion XL (WELLBUTRIN XL) 300 mg 24 hr tablet Take 1 tablet by mouth once daily. sucralfate (CARAFATE) 100 mg/mL suspension TAKE 10ML BY MOUTH TWICE A DAY (Patient not taking: Reported on 12/19/2023) meloxicam (MOBIC) 15 mg tablet Take 1 tablet by mouth once daily. With food. (Patient not taking: Reported on 09/20/2023) No current facility-administered medications on file prior to visit. Social History Social History Tobacco Use Smoking status: Former Packs/day: 1 Types: Cigarettes Smokeless tobacco: Former Quit date: 04/25/2015 Vaping Use Vaping Use: Never used Substance Use Topics Alcohol use: Not Currently Comment: Occasionally Drug use: Never Review of Symptoms REVIEW OF SYSTEMS GENERAL: No weight loss, malaise or fevers EXAM: BP 126/78 Pulse 96 Resp 18 Wt 95.8 kg (2 (more content not included)... Normal [facility] DBT Breast - left diagnostic for implanton 09-05-2023 [facility] US Breast - left limitedon 0 09-05-2023 [facility] Guidance for biopsy of Br east - lefton 09-05-2023 [facility] ESR Westergren method (Bld) [Velocity]on 06-05-2023 ESR (Bld) [Velocity] 8 mm/h 0 - 20 mm/hr [facility] XR ESOPHAGRAMon 05-08-2023 XR ESOPHAGRAM * * *Final Report* * * DATE OF EXAM: May 08 2023 2:42PM [id number] [id number] - XR ESOPHAGRAM / PROCEDURE REASON: Esophageal dysphagia * * * * Physician Interpretation * * * * EXAM TITLE: XR ESOPHAGRAM DATE: 05/08/2023 COMPARISON: None. CLINICAL INDICATION/HISTORY: Dysphasia TECHNIQUE: Double contrast esophagram performed by a outpatient physical therapist assistant. 25 seconds of fluoroscopy time was utilized. 94 images were submitted for interpretation. FINDINGS: There is a 2.5 cm hiatal hernia. A Schatzki's ring is present demonstrating no significant luminal compromise. There is no esophageal stricture or ulceration identified. No significant extrinsic mass effect. No significant reflux. The patient was unable to swallow a 13 mm barium tablet. IMPRESSION: 2.5 cm hiatal hernia with a Schatzki ring. Parking Control Officer: DIOGENES Transcribe Date/Time: May 08 2023 3:08P Dictated by : CHRIS MOREAU MD This examination was interpreted and the report reviewed and electronically signed by: CHRIS MOREAU MD on May 08 2023 3:23PM EST [id number] Normal [facility] 36on 04-18-2023 36 Received order for F ibroscan from [employer]. Called patient left message with office call back number. Normal [facility] CBC W Auto Differential pane l (Bld)on 12-13-2022 Basophils (Bld) [#/Vol] 0.10 10*3/uL <0.11 k/uL [facility] Basophils/100 WBC (Bld) 0.9 % [facility] Differential cell count method Nom (Bld) Auto [facility] Eosinophils (Bld) [#/Vol] 0.49 10*3/uL High <0.46 k/uL [facility] Eosinophils/100 WBC (Bld) 4.4 % [facility] Erythrocyte distribution width (RBC) [Ratio] 12.9 % 11.5 - 15.0 % [facility] Hematocrit (Bld) [Volume fraction] 39.7 % 36.0 - 46.0 % [facility] Hemoglobin (Bld) [Mass/Vol] 13.0 g/dL 11.5 - 15.5 g/dL [facility] Immature granulocytes (Bld) [#/Vol] 0.04 10*3/uL <0.10 k/uL [facility] Immature granulocytes/100 WBC (Bld) 0.4 % [facility] Lymphocytes (Bld) [#/Vol] 2.59 10*3/uL 1.00 - 4.00 k/uL [facility] Lymphocytes/100 WBC (Bld) 23.3 % [facility] MCH (RBC) [Entitic mass] 26.9 pg 26.0 - 34.0 pg [facility] MCHC (RBC) [Mass/Vol] 32.7 g/dL 30.5 - 36.0 g/dL [facility] MCV (RBC) [Entitic vol] 82.0 fL 80.0 - 100.0 fL [facility] Monocytes (Bld) [#/Vol] 0.63 10*3/uL <0.87 k/uL [facility] Monocytes/100 WBC (Bld) 5.7 % [facility] Neutrophils (Bld) [#/Vol] 7.27 10*3/uL 1.45 - 7.50 k/uL [facility] Neutrophils/100 WBC (Bld) 65.3 % [facility] Nucleated RBC (Bld) [#/Vol] <0.01 k/uL [facility] Nucleated RBC/100 WBC (Bld) [Ratio] 0.0 /100 WBC [facility] Platelet mean volume (Bld) [Entitic vol] 9.6 fL 9.0 - 12.7 fL [facility] Platelets (Bld) [#/Vol] 501 10*3/uL High 150 - 400 k/uL [facility] RBC (Bld) [#/Vol] 4.84 10*6/uL 3.90 - 5.20 m/uL [facility] WBC (Bld) [#/Vol] 11.12 10*3/uL High 3.70 - 11.00 k/uL [facility] PARTH DIAG W LAURA LEFTon 10-18 [facility] US BREAST LTD LTon 3 [facility] Absolute lymphocyte countOrd ered By: Dr. Bran on 10-14-2022 Lymphocytes Auto (Unsp spec) [#/Vol] 2.66 10*3/uL 0.83-4.51 [facility] Amorphous sediment detection in urine sediment by light microscopyOrdered By: Dr. Bran on 10-14-2022 Amorphous sediment LM Ql (Urine sed) 1+ [facility] Basophil percentageOrdered B y: Dr. Bran on 10-14-2022 Basophils/100 WBC (Bld) 1.0 % 0-1 [facility] Bilirubin [Mass/Vol] 0.50 mg/dL 0.20-1.00 [facility] Comment on above: For patients on eltr ombopag therapy, use of Dimension [place] TBIL is not recommended. Chloride [Moles/Vol] 107 mmol/L 98-107 [facility] Eosinophils/100 WBC (Bld) 4.0 % 0-5 [facility] Glucose [Mass/Vol] 81 mg/dL 74-106 [facility] Neutrophils (Bld) [#/Vol] 6.7 10*3/uL 2.0-7.7 [facility] Neutrophils/100 WBC (Bld) 62.5 % 47-70 [facility] Potassium [Moles/Vol] 3.5 mmol/L 3.5-5.1 [facility] Protein [Mass/Vol] 6.9 g/dL 6.4-8.2 [facility] Sodium [Moles/Vol] 139 mmol/L 136-145 [facility] WBC (Bld) [#/Vol] 10.7 10*3/uL 4.4-11.0 [facility] Basophil percentage 0 SEEN /hpf 0-5 [facility] Bilirubin Test strip Ql (U)O rdered By: Dr. Bran on 10-14-2022 Bilirubin Ql (U) Negative Negative [facility] Blood erythrocytes count (nu mber/volume)Ordered By: Dr. Bran on 10-14-2022 RBC (Bld) [#/Vol] 4.82 10*6/uL 4.2-5.4 [facility] Blood hemoglobin measurement (mass/volume)Ordered By: Dr. Bran on 10-14-2022 Hemoglobin (Bld) [Mass/Vol] 13.0 g/dL 12.0-15.0 [facility] Blood lymphocytes/100 leukoc ytesOrdered By: Dr. Bran on 10-14-2022 Lymphocytes/100 WBC (Bld) 24.8 % 19-41 [facility] Blood monocytes/100 leukocyt esOrdered By: Dr. Bran on 10-14-2022 Monocytes/100 WBC (Bld) 7.2 % 0-10 [facility] Blood platelet mean volumeOr dered By: Dr. Bran on 10-14-2022 Platelet mean volume (Bld) [Entitic vol] 9.4 fL 6.2-12.0 [facility] Determination of erythrocyte mean corpuscular volume (MCV)Ordered By: Dr. Bran on 10-14-2022 MCV (RBC) [Entitic vol] 82.4 fL 81-99 [facility] Direct bilirubinOrdered By: Dr. Bran on 10-14-2022 Bilirubin.direct [Mass/Vol] 0.13 mg/dL 0.00-0.30 [facility] Hematocrit Auto (Bld) [Volum e fraction]Ordered By: Dr. Bran on 10-14-2022 Hematocrit (Bld) [Volume fraction] 39.7 % 37-47 [facility] Ketones Test strip Ql (U)Ord ered By: Dr. Bran on 10-14-2022 Ketones Ql (U) Negative Negative [facility] Laboratory - Chemistry and C hemistry - challengeOrdered By: Dr. Bran on 10-14-2022 ALP [Catalytic activity/Vol] 85 U/L 45-117 [facility] ALT [Catalytic activity/Vol] 18 U/L 13-56 [facility] CO2 [Moles/Vol] 25.0 mmol/L 21.0-32.0 [facility] Globulin (S) [Mass/Vol] 3.6 g/dL 2.2-4.2 [facility] Lipase [Catalytic activity/Vol] 90 U/L 73-393 [facility] Urea nitrogen/Creatinine [Mass ratio] 13.9 mg/mg 10-20 [facility] Laboratory - Hematology and Cell countsOrdered By: Dr. Bran on 10-14-2022 Erythrocyte distribution width (RBC) [Entitic vol] 38.5 fL 35.1-43.9 [facility] Erythrocyte distribution width (RBC) [Ratio] 13.0 % 11.6-14.6 [facility] Immature granulocytes/100 WBC (Bld) 0.500 % 0.0-0.9 [facility] Comment on above: IG% - Immature Granu locytes (promyelocytes, myelocytes and metamyelocytes) > 1% indicates that a LEFT SHIFT is Present. MCH (RBC) [Entitic mass] 27.0 pg 27.0-32.0 [facility] Nucleated RBC/100 WBC (Bld) [Ratio] 0 % 0-5 [facility] MCHC Auto (RBC) [Mass/Vol]Or dered By: Dr. Bran on 10-14-2022 MCHC (RBC) [Mass/Vol] 32.7 g/dL 32-36 [facility] Mucus LM Ql (Urine sed)Order ed By: Dr. Bran on 10-14-2022 Mucus Ql (Urine sed) 0 SEEN /hpf [facility] Nitrite Test strip Ql (U)Ord ered By: Dr. Bran on 10-14-2022 Nitrite Ql (U) Negative Negative [facility] No Panel InformationOrdered By: Dr. Bran on 10-14-2022 Estimated Creatinine Clearance Calc 76.52 ml/min [facility] Estimated GFR (MDRD) Amer 91 mL/min >60 [facility] Comment on above: GFR Calc Estimated GFR (MDRD) Non-Af Amer 75 mL/min >60 [facility] Comment on above: Non- GFR Calc Platelets bldOrdered By: Dr. Bran on 10-14-2022 Platelets (Bld) [#/Vol] 447 10*3/uL 150-450 [facility] Protein Test strip Ql (U)Ord ered By: Dr. Bran on 10-14-2022 Protein Ql (U) Negative Negative [facility] Serum or plasma albumin coleman urement (mass/volume)Ordered By: Dr. Bran on 10-14-2022 Albumin [Mass/Vol] 3.3 g/dL 3.2-5.0 [facility] Serum or plasma calcium coleman urement (mass/volume)Ordered By: Dr. Bran on 10-14-2022 Calcium [Mass/Vol] 9.1 mg/dL 8.5-10.1 [facility] Serum or plasma creatinine m easurement (mass/volume)Ordered By: Dr. Bran on 10-14-2022 Creatinine [Mass/Vol] 0.86 mg/dL 0.55-1.02 [facility] Comment on above: The validity of the calculated GFR & GFRAA in patients over 70 years has not been determined. Clinical correlation is essential. Serum or plasma urea nitroge n measurement (mass/volume)Ordered By: Dr. Bran on 10-14-2022 Urea nitrogen [Mass/Vol] 12 mg/dL 7-18 [facility] Squamous epithelial cells de tection in urine sediment by light microscopyOrdered By: Dr. Bran on 10-14-2022 Epithelial cells.squamous LM Ql (Urine sed) 0-5 SEEN /hpf 5-10 [facility] Thin prep Papanicolaou smear with manual screeningOrdered By: Dr. Bran on 10-14-2022 Thin prep Papanicolaou smear with manual screening 15 U/L 15-37 [facility] Thin prep Papanicolaou smear with manual screening 7 5-15 [facility] Urine blood detectionOrdered By: Dr. Bran on 10-14-2022 RBC Ql (U) Negative Negative [facility] RBC Ql (U) 0 SEEN /hpf 0-5 [facility] Urine clarityOrdered By: Dr. Bran on 10-14-2022 Clarity (U) Cloudy Clear [facility] Urine color determinationOrd ered By: Dr. Bran on 10-14-2022 Color (U) Yellow Yellow [facility] Urine glucose detectionOrder ed By: Dr. Bran on 10-14-2022 Glucose Ql (U) Normal mg/dl Normal [facility] Urine leukocyte esterase det ection by dipstickOrdered By: Dr. Bran on 10-14-2022 Leukocyte esterase Test strip Ql (U) Negative Negative [facility] Urine pHOrdered By: Dr. iWlton fernandez on 10-14-2022 pH (U) 8.0 [pH] 5.0 - 8.0 [facility] Urine sediment bacteria coun t by microscopy (number/high power field)Ordered By: Dr. Bran on 10-14-2022 Bacteria LM.HPF (Urine sed) [#/Area] 0 /[HPF] None Seen [facility] Urine specific gravity measu rementOrdered By: Dr. Bran on 10-14-2022 Specific gravity (U) [Rel density] 1.015 1.002-1.03 0 [facility] Urobilinogen Auto test strip Ql (U)Ordered By: Dr. Bran on 10-14-2022 Urobilinogen Ql (U) Normal mg/dl Normal [facility] XR Ankle - right AP and Late ral and obliqueon 09-01-2022 IMPRESSION: No acute radiographic abnormalities seen in the right ankle. Parking Control Officer: PSCB Transcribe Date/Time: Sep 01 2022 2:08P Dictated by : DARYA BINGHAM MD This examination was interpreted and the report reviewed and electronically signed by: DARYA BINGHAM MD on Sep 01 2022 2:19PM [facility] DIVISION OF RADIOLOGY * * *Final Report* * * DATE OF EXAM: Aug 30 2022 10:41AM WOX [id number] - XR ANKLE 3V AP/LAT/OBL RT / PROCEDURE REASON: Sprain of ligament of right ankle, subsequent encounter * * * * Physician Interpretation * * * * EXAM TITLE: XR ANKLE 3V AP/LAT/OBL RT EXAM DATE/TIME: 08/30/2022 10:41 AM COMPARISON: None. CLINICAL INDICATION/HISTORY: Sprain. TECHNIQUE: AP, mortise and lateral views of the right ankle are presented. FINDINGS: No acute fractures or subluxations are noted. The mortise joint spaces are maintained, without obvious osteophyte formation. Small Achilles/calcaneal enthesophyte noted. There is no ankle joint effusion. The mineralization of the bones is normal. There is no significant soft tissue swelling. DIVISION OF RADIOLOGY Provider, Solomon Vallecillo - 09/01/2022 * * *Final Report* * * DATE OF EXAM: Aug 30 2022 10:41AM WOX [id number] - XR ANKLE 3V AP/LAT/OBL RT / PROCEDURE REASON: Sprain of ligament of right ankle, subsequent encounter * * * * Physician Interpretation * * * * EXAM TITLE: XR ANKLE 3V AP/LAT/OBL RT EXAM DATE/TIME: 08/30/2022 10:41 AM COMPARISON: None. CLINICAL INDICATION/HISTORY: Sprain. TECHNIQUE: AP, mortise and lateral views of the right ankle are presented. FINDINGS: No acute fractures or subluxations are noted. The mortise joint spaces are maintained, without obvious osteophyte formation. Small Achilles/calcaneal enthesophyte noted. There is no ankle joint effusion. The mineralization of the bones is normal. There is no significant soft tissue swelling. IMPRESSION IMPRESSION: No acute radiographic abnormalities seen in the right ankle. Parking Control Officer: PSCB Transcribe Date/Time: Sep 01 2022 2:08P Dictated by : DARYA BINGHAM MD This examination was interpreted and the report reviewed and electronically signed by: DARYA BINGHAM MD on Sep 01 2022 2:19PM EST [facility] XR Ankle - right AP and Late ral and obliqueOrdered By: [facility] Provider on 09-01-2022 [facility] XR Ankle - right AP and Late ral and obliqueon 08-30-2022 Radiology Study observation (narrative) [facility] CT ABD/PEL W IVCONon 022 [facility] XR WRIST INJURY 4V PA/LAT/OB L/SCAPH RIGHTon 01-03-2022 [facility] XR Wrist - right 4 Viewson 0 01-03-2022 IMPRESSION: Findings most compatible with dorsal chip fracture, a finding most often seen in setting of a triquetral fracture. Parking Control Officer: DIOGENES Transcribe Date/Time: Jan 03 2022 4:15P Dictated by : KIRILL PEREZ MD This examination was interpreted and the report reviewed and electronically signed by: KIRILL PEREZ MD on Jan 03 2022 4:18PM EST [facility]_DO_NOT _USE_DIVIS ION OF RADIOLOGY * * *Final Report* * * DATE OF EXAM: Jan 03 2022 4:13PM WOX 5273 - XR WRIST 4V PA/LAT/OBL/SCAPH RT / PROCEDURE REASON: Right wrist pain * * * * Physician Interpretation * * * * CLINICAL INDICATION: Wrist pain TECHNIQUE: 4 view radiographic study of the right wrist COMPARISON: Radiograph dated August 23, 2021 FINDINGS: Dorsal soft tissue swelling. Dorsal chip fracture identified, a finding most often seen in the setting of a triquetral fracture. [facility]_DO_NOT _USE_DIVIS ION OF RADIOLOGY Provider, Solomon fiore [place] - 01/03/2022 * * *Final Report* * * DATE OF EXAM: Jan 03 2022 4:13PM WOX 5273 - XR WRIST 4V PA/LAT/OBL/SCAPH RT / PROCEDURE REASON: Right wrist pain * * * * Physician Interpretation * * * * CLINICAL INDICATION: Wrist pain TECHNIQUE: 4 view radiographic study of the right wrist COMPARISON: Radiograph dated August 23, 2021 FINDINGS: Dorsal soft tissue swelling. Dorsal chip fracture identified, a finding most often seen in the setting of a triquetral fracture. IMPRESSION IMPRESSION: Findings most compatible with dorsal chip fracture, a finding most often seen in setting of a triquetral fracture. Parking Control Officer: [facility] Transcribe Date/Time: Jan 03 2022 4:15P Dictated by : KIRILL PEREZ MD This examination was interpreted and the report reviewed and electronically signed by: KIRILL PEREZ MD on Jan 03 2022 4:18PM EST [facility] Radiology Study observation (narrative) [facility] XR Wrist - right 4 ViewsOrde red By: [facility] Provider on 01-03-2022 [facility] No Panel Informationon 12-21 [facility] NM HEPATOBILIARY W EF AND/OR RXon 12-09-2021 [facility] COLONOSCOPY SCREENINGon 05-2 [facility] XR Cervical spine AP and Lat eral and obliqueon 09-20-2021 IMPRESSION: Cervical spine degenerative changes as described above. Parking Control Officer: DIOGENES Transcribe Date/Time: Sep 20 2021 8:12A Dictated by : DARYA BINGHAM MD This examination was interpreted and the report reviewed and electronically signed by: DARYA BINGHAM MD on Sep 20 2021 8:17AM EST DIVISION OF RADIOLOGY * * *Final Report* * * DATE OF EXAM: Sep 19 2021 2:48PM WOX [id number] - XR CERVICAL 4V AP/LAT/OBL / PROCEDURE REASON: Neck pain * * * * Physician Interpretation * * * * EXAM TITLE: XR CERVICAL 4V AP/LAT/OBL EXAM DATE/TIME: 09/19/2021 2:48 PM COMPARISON: None. CLINICAL INDICATION/HISTORY: Neck pain TECHNIQUE: AP, lateral, and oblique views of the cervical spine are presented. FINDINGS: No acute fractures or subluxations are noted. C3-C6 multilevel mild disc space narrowing is demonstrated. There is moderate osteophyte formation, with facet arthrosis. There appears be right C5-6 mild neural foraminal narrowing.. The prevertebral soft tissues are normal. DIVISION OF RADIOLOGY Provider, Solomon fiore [place] - 09/20/2021 * * *Final Report* * * DATE OF EXAM: Sep 19 2021 2:48PM WOX [id number] - XR CERVICAL 4V AP/LAT/OBL / PROCEDURE REASON: Neck pain * * * * Physician Interpretation * * * * EXAM TITLE: XR CERVICAL 4V AP/LAT/OBL EXAM DATE/TIME: 09/19/2021 2:48 PM COMPARISON: None. CLINICAL INDICATION/HISTORY: Neck pain TECHNIQUE: AP, lateral, and oblique views of the cervical spine are presented. FINDINGS: No acute fractures or subluxations are noted. C3-C6 multilevel mild disc space narrowing is demonstrated. There is moderate osteophyte formation, with facet arthrosis. There appears be right C5-6 mild neural foraminal narrowing.. The prevertebral soft tissues are normal. IMPRESSION IMPRESSION: Cervical spine degenerative changes as described above. Parking Control Officer: DIOGENES Transcribe Date/Time: Sep 20 2021 8:12A Dictated by : DARYA BINGHAM MD This examination was interpreted and the report reviewed and electronically signed by: DARYA BINGHAM MD on Sep 20 2021 8:17AM EST [facility] No Panel Informationon 09-19 Radiology Study observation (narrative) [facility] XR Shoulder - right 3 Viewso n 09-19-2021 IMPRESSION: 1. Mild degenerative changes. 2. No acute findings. Parking Control Officer: [facility] Transcribe Date/Time: Sep 19 2021 3:37P Dictated by : JAIME MARQUEZ MD This examination was interpreted and the report reviewed and electronically signed by: JAIME MARQUEZ MD on Sep 19 2021 3:38PM EST DIVISION OF RADIOLOGY * * *Final Report* * * DATE OF EXAM: Sep 19 2021 2:48PM WOX [id number] - XR SHLDR >/=3V AP/SONAL AP/OTHR RT / PROCEDURE REASON: Acute pain of right shoulder * * * * Physician Interpretation * * * * RIGHT SHOULDER, 3 VIEW, 09/19/2021 HISTORY: Acute right shoulder pain. COMPARISON: None TECHNIQUE: AP, Grashey, and axillary views. RESULTS: The bones are intact and normally aligned. There are no underlying bone lesions. There is mild narrowing of the glenoid-joint space inferiorly, with mild spur formation also inferiorly. There are no periarticular erosions or calcifications. DIVISION OF RADIOLOGY Provider, [facility] - 09/19/2021 * * *Final Report* * * DATE OF EXAM: Sep 19 2021 2:48PM WOX 5253 - XR SHLDR >/=3V AP/SONAL AP/OTHR RT / PROCEDURE REASON: Acute pain of right shoulder * * * * Physician Interpretation * * * * RIGHT SHOULDER, 3 VIEW, 09/19/2021 HISTORY: Acute right shoulder pain. COMPARISON: None TECHNIQUE: AP, Grashey, and axillary views. RESULTS: The bones are intact and normally aligned. There are no underlying bone lesions. There is mild narrowing of the glenoid-joint space inferiorly, with mild spur formation also inferiorly. There are no periarticular erosions or calcifications. IMPRESSION IMPRESSION: 1. Mild degenerative changes. 2. No acute findings. Parking Control Officer: [facility] Transcribe Date/Time: Sep 19 2021 3:37P Dictated by : JAIME MARQUEZ MD This examination was interpreted and the report reviewed and electronically signed by: JAIME MARQUEZ MD on Sep 19 2021 3:38PM EST [facility] XR Shoulder - right 3 ViewsO rdered By: [facility] Provider on 09-19-2021 [facility] XR Wrist - right 4 Viewson 0 08-23-2021 IMPRESSION: No acute radiographic abnormalities seen in the right wrist. Parking Control Officer: [facility] Transcribe Date/Time: Aug 23 2021 4:18P Dictated by : DARYA BINGHAM MD This examination was interpreted and the report reviewed and electronically signed by: DARYA BINGHAM MD on Aug 23 2021 4:20PM [facility] DIVISION OF RADIOLOGY * * *Final Report* * * DATE OF EXAM: Aug 23 2021 4:08PM WOX 5273 - XR WRIST 4V PA/LAT/OBL/SCAPH RT / PROCEDURE REASON: Right wrist injury, initial encounter * * * * Physician Interpretation * * * * EXAM TITLE: XR WRIST 4V PA/LAT/OBL/SCAPH RT EXAM DATE/TIME: 08/23/2021 4:08 PM COMPARISON: None. CLINICAL INDICATION/HISTORY: Fall. TECHNIQUE: PA, lateral, oblique and scaphoid views of right wrist are presented. FINDINGS: No acute fractures or subluxations are noted. The wrist joint spaces are well preserved. The mineralization of the bones is normal. There is no significant soft tissue swelling. DIVISION OF RADIOLOGY Provider, Gretel Claudio Vallecillo - 08/23/2021 * * *Final Report* * * DATE OF EXAM: Aug 23 2021 4:08PM WOX 5273 - XR WRIST 4V PA/LAT/OBL/SCAPH RT / PROCEDURE REASON: Right wrist injury, initial encounter * * * * Physician Interpretation * * * * EXAM TITLE: XR WRIST 4V PA/LAT/OBL/SCAPH RT EXAM DATE/TIME: 08/23/2021 4:08 PM COMPARISON: None. CLINICAL INDICATION/HISTORY: Fall. TECHNIQUE: PA, lateral, oblique and scaphoid views of right wrist are presented. FINDINGS: No acute fractures or subluxations are noted. The wrist joint spaces are well preserved. The mineralization of the bones is normal. There is no significant soft tissue swelling. IMPRESSION IMPRESSION: No acute radiographic abnormalities seen in the right wrist. Parking Control Officer: [facility] Transcribe Date/Time: Aug 23 2021 4:18P Dictated by : DARYA BINGHAM MD This examination was interpreted and the report reviewed and electronically signed by: DARYA BINGHAM MD on Aug 23 2021 4:20PM EST [facility] Radiology Study observation (narrative) [facility] XR Wrist - right 4 ViewsOrde red By: [facility] Provider on 08-23-2021 [facility] EMERGENCY REPORTon EMERGENCY REPORT [facility] EMERGENCY ROOM REPORT NAME ACCOUNT SEX AGE ADMIT DISCHARGE PT MED. RECORD# NUMBER DATE DATE TYPE KIRK [id number] F 45 07/13/20 07/13/20 3 MAXIMUS Ciera [id number] ROOM: ER DATE OF : 1975 DICTATING PHYSICIAN: Gregory Galindo HISTORY OF PRESENT ILLNESS: The patient is a 45-year-old female with a past medical history of hypertension and hyperlipidemia who presents with concern for right shoulder and hip pain. She states that she fell on ice 2 weeks ago. She states that she fell on her right side. She denies any head trauma or loss of consciousness. She states that she is having aching right shoulder and hip worsened by movement. No relieving factors. The patient has taken no medication at home. PAST MEDICAL HISTORY: See above. PAST SURGICAL HISTORY: Tubal ligation. SOCIAL HISTORY: Denies any drugs or alcohol abuse. Denies any tobacco abuse. REVIEW OF SYSTEMS: Ten systems reviewed and otherwise negative unless stated above. PHYSICAL EXAMINATION: The patient appears well and nontoxic. Vital signs within normal limits. Head: Normocephalic without signs of trauma. Eyes: Equal ocular motion intact. PERRLA. Mouth: Buccal mucosa appears well-hydrated. Neck: Trachea is midline. Supple. Lungs: Clear to auscultation bilaterally without wheezing. Heart: S1, S2 appreciated without murmurs. Abdomen: Soft and nontender. Musculoskeletal: Full range of motion of the right shoulder. Mild tenderness to palpation over the anterior aspect. Hip: No pain with log roll. Full range of motion. No overlying skin changes. Neurologic: Sensation is intact. Skin: Clear. Psychiatric: Mood and affect normal. DIAGNOSTIC DATA: X-ray of the right hip shows no acute fracture or dislocation. X-ray of the right shoulder shows an osteophytic lesion, but no significant fracture. EMERGENCY DEPARTMENT COURSE AND TREATMENT: The patient appears well and nontoxic and was given IM Toradol. X-ray is negative. The patient was advised on rest, ice, compression, and elevation. DIAGNOSES: 1. Mechanical fall. 2. Right hip contusion. Page 1 of 2 MAXIMUS BRADLEY Emergency Room Report MAXIMUS BRADLEY : 1975 3. Right shoulder contusion. PLAN/DISPOSITION: The patient will be given naproxen for home. She was asked to return for new or worsening symptoms. The patient was agreeable and discharged home in stable condition. Dictated By: Gregory Galindo DO 07/13/20 18:02 JOB #: [id number] Transcribed By: am 07/13/20 19:44 Electronically signed by: E-SIGN: Gregory Galindo D.O. 07/22/20 07:19 Page 2 of 2 MAXIMUS BRADLEY Emergency Room Report Normal [facility] HIP COMPLETE RT MIN 2 VIEWS W/PELVISon 07-13-2020 HIP COMPLETE RT MIN 2 VIEWS W/PELVIS [place] [id number] Patient: MAXIMUS BRADLEY Ciera. Phone#: : 1975 Age: 45 Gender: F Pt. Type: ER Account: [id number] Location: 052 Ordering: GREGORY GALINDO Exam Date: 07/13/2020/17:10 Family Phys: LUCILLE PACHECO Charge Code: [id number] Physician: [place] Order #: [id number] DLP Dose#: PROCEDURE: X-RAY HIP RT COMPLETE MIN 2 VIEWS W/PELVIS COMPARISON: None. INDICATIONS: Pain. FINDINGS: BONES: Mild degenerative changes of the hips are present. SOFT TISSUES: Negative. No visible soft tissue swelling. EFFUSION: None visible. OTHER: Negative. CONCLUSION: No acute disease. Dictated by: Mary Wilkins MD on 07/13/2020 at 17:38 Approved by: Mary Wilkins MD on 07/13/2020 at 17:39 Normal [facility] SHOULDER COMPLETE RTon 07-13 SHOULDER COMPLETE RT [place] [id number] Patient: MAXIMUS BRADLEY Phone#: : 1975 Age: 45 Gender: F Pt. Type: ER Account: [id number] Location: [facility] Ordering: GREGORY GALINDO Exam Date: 07/13/2020/17:12 Family Phys: LUCILLE PACHECO Charge Code: [id number] Physician: [place] Order #: [id number] DLP Dose#: PROCEDURE: X-RAY SHOULDER COMPLETE RT MIN 2 VIEWS COMPARISON: None. INDICATIONS: Pain. FINDINGS: BONES: There is cortical irregularity at the inferior margin of the humeral head consistent with osteophyte versus small avulsion. No other acute bone abnormality is identified. Mild degenerative changes are present at the glenohumeral joint. SOFT TISSUES: Negative. No visible soft tissue swelling. EFFUSION: None visible. OTHER: Negative. CONCLUSION: 1. Small avulsion versus osteophyte at the inferior margin of the humeral head. No other acute bone abnormality is identified. Dictated by: Mary Wilkins MD on 07/13/2020 at 17:36 Approved by: Mary Wilkins MD on 07/13/2020 at 17:37 Normal [facility] No Panel Information [facility] Vital Signs Date Time Vital Sign Value Performing Clinician Marah lopez 11-10-2024 13:43-0400 Body height 163 cm Ema Abdullahi APRN.CNP Work Phone: [facility] 11-10-2024 13:43-0400 Body mass index (BMI) [Ratio] 36.16 kg/m2 Ema Edison MAMMOGRAPHY TECHNICIAN.FONDANT COOKER Work Phone: [facility] 11-10-2024 13:43-0400 Body weight 96.07 kg Ema Edison MAMMOGRAPHY TECHNICIAN.FONDANT COOKER Work Phone: [facility] 11-10-2024 13:43-0400 Diastolic blood pressure 78 mm[Hg] Ema Edison MAMMOGRAPHY TECHNICIAN.FONDANT COOKER Work Phone: [facility] 11-10-2024 13:43-0400 Systolic blood pressure 124 mm[Hg] Ella Riley APRN.FONDANT COOKER Work Phone: [facility] 11-10-2024 11:00-0400 Body mass index (BMI) [Ratio] 33.7 kg/m2 Ella Riley APRN.FONDANT COOKER Work Phone: [facility] 11-10-2024 11:00-0400 Body temperature 98.2 [degF] Ella Riley APRN.FONDANT COOKER Work Phone: [facility] 11-10-2024 11:00-0400 Body weight 94.7 kg Ella Riley APRN.FONDANT COOKER Work Phone: [facility] 11-10-2024 11:00-0400 Diastolic blood pressure 70 mm[Hg] Ella Riley APRN.FONDANT COOKER Work Phone: [facility] 11-10-2024 11:00-0400 Heart rate 96 /min Ella Riley APRN.FONDANT COOKER Work Phone: [facility] 11-10-2024 11:00-0400 Respiratory rate 16 /min Ella Riley APRN.FONDANT COOKER Work Phone: [facility] 11-10-2024 11:00-0400 SaO2% (BldA) [Mass fraction] 99 % Ella Riley APRN.FONDANT COOKER Work Phone: [facility] 10-28-2024 14:09-0400 Body mass index (BMI) [Ratio] 34.02 kg/m2 Leny Hsu MD Work Phone: [facility] 10-28-2024 14:09-0400 Body weight 95.62 kg Leny Hsu MD Work Phone: [facility] 10-28-2024 14:09-0400 Diastolic blood pressure 64 mm[Hg] Leny Hsu MD Work Phone: [facility] 10-28-2024 14:09-0400 Heart rate 85 /min Leny Hsu MD Work Phone: [facility] 10-28-2024 14:09-0400 Respiratory rate 16 /min Leny Hsu MD Work Phone: [facility] 10-28-2024 14:09-0400 SaO2% (BldA) [Mass fraction] 98 % Leny Hsu MD Work Phone: [facility] 10-28-2024 14:09-0400 Systolic blood pressure 118 mm[Hg] Leny Hsu MD Work Phone: [facility] 10-24-2024 12:27-0400 Diastolic blood pressure 76 mm[Hg] Kirk Cast MD Work Phone: [facility] 10-24-2024 12:27-0400 Heart rate 81 /min Kirk Cast MD Work Phone: [facility] 10-24-2024 12:27-0400 Respiratory rate 16 /min Kirk Cast MD Work Phone: [facility] 10-24-2024 12:27-0400 SaO2% (BldA) [Mass fraction] 99 % Kirk Cast MD Work Phone: [facility] 10-24-2024 12:27-0400 Systolic blood pressure 138 mm[Hg] Kirk Cast MD Work Phone: [facility] 10-24-2024 11:25-0400 Body mass index (BMI) [Ratio] 34.69 kg/m2 Kirk Cast MD Work Phone: [facility] 10-24-2024 11:25-0400 Body temperature 97.5 [degF] Kirk Cast MD Work Phone: [facility] 10-24-2024 11:25-0400 Body weight 97.5 kg Kirk Cast MD Work Phone: [facility] 09-02-2024 12:48-0500 Body mass index (BMI) [Ratio] 34.7 kg/m2 Leny Hsu MD Work Phone: [facility] 09-02-2024 12:48-0500 Body weight 97.52 kg Leny Hsu MD Work Phone: [facility] 09-02-2024 12:48-0500 Diastolic blood pressure 86 mm[Hg] Leny Hsu MD Work Phone: [facility] 09-02-2024 12:48-0500 Heart rate 88 /min Leny Hsu MD Work Phone: [facility] 09-02-2024 12:48-0500 Respiratory rate 20 /min Leny Hsu MD Work Phone: [facility] 09-02-2024 12:48-0500 SaO2% (BldA) [Mass fraction] 98 % Leny Hsu MD Work Phone: [facility] 09-02-2024 12:48-0500 Systolic blood pressure 128 mm[Hg] Leny Hsu MD Work Phone: [facility] 08-06-2024 10:56-0500 Body mass index (BMI) [Ratio] 35.12 kg/m2 Leny Hsu MD Work Phone: [facility] 08-06-2024 10:56-0500 Body weight 98.7 kg Leny Hsu MD Work Phone: [facility] 08-06-2024 10:56-0500 Diastolic blood pressure 76 mm[Hg] Leny Hsu MD Work Phone: [facility] 08-06-2024 10:56-0500 Heart rate 93 /min Leny Hsu MD Work Phone: [facility] 08-06-2024 10:56-0500 Respiratory rate 16 /min Leny Hsu MD Work Phone: [facility] 08-06-2024 10:56-0500 SaO2% (BldA) [Mass fraction] 98 % Leny Hsu MD Work Phone: [facility] 08-06-2024 10:56-0500 Systolic blood pressure 124 mm[Hg] Leny Hsu MD Work Phone: [facility] 05-13-2024 10:19-0500 Body mass index (BMI) [Ratio] 34.52 kg/m2 Kristy Queener PA-C Work Phone: [facility] 05-13-2024 10:19-0500 Body weight 97 kg Kristy Queener PA-C Work Phone: [facility] 05-13-2024 10:19-0500 Diastolic blood pressure 80 mm[Hg] Kristy Queener PA-C Work Phone: [facility] 05-13-2024 10:19-0500 Heart rate 84 /min Kristy Queener PA-C Work Phone: [facility] 05-13-2024 10:19-0500 Respiratory rate 16 /min Kristy Queener PA-C Work Phone: [facility] 05-13-2024 10:19-0500 SaO2% (BldA) [Mass fraction] 96 % Kristy Queener PA-C Work Phone: [facility] 05-13-2024 10:19-0500 Systolic blood pressure 126 mm[Hg] Kristy Queener PA-C Work Phone: [facility] 02-04-2024 10:57-0400 Body mass index (BMI) [Ratio] 34.51 kg/m2 Leny Hsu MD Work Phone: [facility] 02-04-2024 10:57-0400 Body weight 96.98 kg Leny Hsu MD Work Phone: [facility] 02-04-2024 10:57-0400 Diastolic blood pressure 76 mm[Hg] Leny Hsu MD Work Phone: [facility] 02-04-2024 10:57-0400 Heart rate 84 /min Leny Hsu MD Work Phone: [facility] 02-04-2024 10:57-0400 Respiratory rate 16 /min Leny Hsu MD Work Phone: [facility] 02-04-2024 10:57-0400 SaO2% (BldA) [Mass fraction] 98 % Leny Hsu MD Work Phone: [facility] 02-04-2024 10:57-0400 Systolic blood pressure 128 mm[Hg] Leny Hsu MD Work Phone: [facility] 01-14-2024 13:20-0400 Body mass index (BMI) [Ratio] 34.54 kg/m2 Leny Hsu MD Work Phone: [facility] 01-14-2024 13:20-0400 Body weight 97.07 kg Leny Hsu MD Work Phone: [facility] 01-14-2024 13:20-0400 Diastolic blood pressure 84 mm[Hg] Leny Hsu MD Work Phone: [facility] 01-14-2024 13:20-0400 Heart rate 97 /min Leny Hsu MD Work Phone: [facility] 01-14-2024 13:20-0400 Respiratory rate 16 /min Leny Hsu MD Work Phone: [facility] 01-14-2024 13:20-0400 SaO2% (BldA) [Mass fraction] 98 % Leny Hsu MD Work Phone: [facility] 01-14-2024 13:20-0400 Systolic blood pressure 120 mm[Hg] Leny Hsu MD Work Phone: [facility] 01-02-2024 11:21-0400 Body mass index (BMI) [Ratio] 34.22 kg/m2 Leyn Hsu MD Work Phone: [facility] 01-02-2024 11:21-0400 Body weight 96.16 kg Leny Hsu MD Work Phone: [facility] 01-02-2024 11:21-0400 Diastolic blood pressure 84 mm[Hg] Leny Hsu MD Work Phone: [facility] 01-02-2024 11:21-0400 Heart rate 81 /min Leny Hsu MD Work Phone: [facility] 01-02-2024 11:21-0400 Respiratory rate 16 /min Leny Hsu MD Work Phone: [facility] 01-02-2024 11:21-0400 SaO2% (BldA) [Mass fraction] 98 % Leny Hsu MD Work Phone: [facility] 01-02-2024 11:21-0400 Systolic blood pressure 128 mm[Hg] Leny Hsu MD Work Phone: [facility] 12-19-2023 14:14-0400 Body mass index (BMI) [Ratio] 34.09 kg/m2 Leny Hsu MD Work Phone: [facility] 12-19-2023 14:14-0400 Body weight 95.8 kg Leny Hsu MD Work Phone: [facility] 12-19-2023 14:14-0400 Diastolic blood pressure 78 mm[Hg] Leny Hsu MD Work Phone: [facility] 12-19-2023 14:14-0400 Heart rate 96 /min Leny Hsu MD Work Phone: [facility] 12-19-2023 14:14-0400 Respiratory rate 18 /min Leny Hsu MD Work Phone: [facility] 12-19-2023 14:14-0400 SaO2% (BldA) [Mass fraction] 97 % Leny Hsu MD Work Phone: [facility] 12-19-2023 14:14-0400 Systolic blood pressure 126 mm[Hg] Leny Hsu MD Work Phone: [facility] 10-01-2023 09:11-0400 Body weight 94.89 kg Leny Hsu MD Work Phone: [facility] 10-01-2023 09:11-0400 Diastolic blood pressure 76 mm[Hg] Leny Hsu MD Work Phone: [facility] 10-01-2023 09:11-0400 Heart rate 87 /min Leny Hsu MD Work Phone: [facility] 10-01-2023 09:11-0400 SaO2% (BldA) [Mass fraction] 99 % Leny Hsu MD Work Phone: [facility] 10-01-2023 09:11-0400 Systolic blood pressure 124 mm[Hg] Leny Hsu MD Work Phone: [facility] 09-20-2023 11:14-0400 Body height 167.6 cm Jordin Dickerson MD Work Phone: [facility] 09-20-2023 11:14-0400 Body temperature 98.1 [degF] Jordin Dickerson MD Work Phone: [facility] 09-20-2023 11:14-0400 Body weight 93.44 kg Jordin Dickerson MD Work Phone: [facility] 09-20-2023 11:14-0400 Diastolic blood pressure 64 mm[Hg] Jordin Dickerson MD Work Phone: [facility] 09-20-2023 11:14-0400 Heart rate 92 /min Jordin Dickerson MD Work Phone: [facility] 09-20-2023 11:14-0400 SaO2% (BldA) [Mass fraction] 98 % Jordin Dickerson MD Work Phone: [facility] 03-14-2024 11:14-0400 Systolic blood pressure 102 mm[Hg] Jordin Dickerson MD Work Phone: [facility] 09-19-2023 15:54-0400 Body weight 93.44 kg Kristy Hernandeser PA-C Work Phone: [facility] 09-19-2023 15:54-0400 Diastolic blood pressure 76 mm[Hg] Kristy Queener PA-C Work Phone: [facility] 09-19-2023 15:54-0400 Heart rate 90 /min Kristy Queener PA-C Work Phone: [facility] 09-19-2023 15:54-0400 Respiratory rate 18 /min Kristy Hernandeser PA-C Work Phone: [facility] 09-19-2023 15:54-0400 SaO2% (BldA) [Mass fraction] 99 % Kristy Hernandeser PA-C Work Phone: [facility] 09-19-2023 15:54-0400 Systolic blood pressure 123 mm[Hg] Kristy Queener PA-C Work Phone: [facility] 08-13-2023 15:07-0500 Body height 162.6 cm Kirk Cast MD Work Phone: [facility] 08-13-2023 15:07-0500 Body temperature 99 [degF] Kirk Cast MD Work Phone: [facility] 08-13-2023 15:07-0500 Body weight 92.9 kg Kirk Cast MD Work Phone: [facility] 08-13-2023 15:07-0500 Diastolic blood pressure 80 mm[Hg] Kirk Cast MD Work Phone: [facility] 08-13-2023 15:07-0500 Heart rate 100 /min Kirk Cast MD Work Phone: [facility] 08-13-2023 15:07-0500 Respiratory rate 14 /min Kirk Cast MD Work Phone: [facility] 08-13-2023 15:07-0500 SaO2% (BldA) [Mass fraction] 96 % Kirk Cast MD Work Phone: [facility] 08-13-2023 15:07-0500 Systolic blood pressure 124 mm[Hg] Kirk Cast MD Work Phone: [facility] 06-05-2023 08:53-0500 Body height 167.6 cm Kristy Queener PA-C Work Phone: [facility] 06-05-2023 08:53-0500 Body weight 91.81 kg Kristy Queener PA-C Work Phone: [facility] 06-05-2023 08:53-0500 Diastolic blood pressure 61 mm[Hg] Kristy Queener PA-C Work Phone: [facility] 06-05-2023 08:53-0500 Heart rate 74 /min Kristy Queener PA-C Work Phone: [facility] 06-05-2023 08:53-0500 Respiratory rate 16 /min Kristy Queener PA-C Work Phone: [facility] 06-05-2023 08:53-0500 SaO2% (BldA) [Mass fraction] 98 % Kristy Queener PA-C Work Phone: [facility] 06-05-2023 08:53-0500 Systolic blood pressure 101 mm[Hg] Kristy Queener PA-C Work Phone: [facility] 05-14-2023 15:02-0500 Diastolic blood pressure 70 mm[Hg] Leny Hsu MD Work Phone: [facility] 05-14-2023 15:02-0500 Heart rate 82 /min Leny Hsu MD Work Phone: [facility] 05-14-2023 15:02-0500 Respiratory rate 16 /min Leny Hsu MD Work Phone: [facility] 05-14-2023 15:02-0500 SaO2% (BldA) [Mass fraction] 97 % Leny Hsu MD Work Phone: [facility] 05-14-2023 15:02-0500 Systolic blood pressure 124 mm[Hg] Leny Hsu MD Work Phone: [facility] 04-18-2023 10:40-0400 Body height 167.6 cm Nicole Kalka PA-C Work Phone: [facility] 04-18-2023 10:40-0400 Body weight 90.27 kg Nicole Kalka PA-C Work Phone: [facility] 04-18-2023 10:40-0400 Diastolic blood pressure 72 mm[Hg] Nicole Kalka PA-C Work Phone: [facility] 04-18-2023 10:40-0400 Heart rate 82 /min Nicole Kalka PA-C Work Phone: [facility] 04-18-2023 10:40-0400 Systolic blood pressure 118 mm[Hg] Nicole Kalka PA-C Work Phone: [facility] 03-16-2023 10:21-0400 Body weight 90.54 kg Leny Hsu MD Work Phone: [facility] 03-16-2023 10:21-0400 Diastolic blood pressure 76 mm[Hg] Leny Hsu MD Work Phone: [facility] 03-16-2023 10:21-0400 Heart rate 83 /min Leny Hsu MD Work Phone: [facility] 03-16-2023 10:21-0400 Respiratory rate 16 /min Leny Hsu MD Work Phone: [facility] 03-16-2023 10:21-0400 SaO2% (BldA) [Mass fraction] 99 % Leny Hsu MD Work Phone: [facility] 03-16-2023 10:21-0400 Systolic blood pressure 122 mm[Hg] Leny Hsu MD Work Phone: [facility] 01-19-2023 11:07-0400 Diastolic blood pressure 70 mm[Hg] Leny Hsu MD Work Phone: [facility] 01-19-2023 11:07-0400 Heart rate 78 /min Leny Hsu MD Work Phone: [facility] 01-19-2023 11:07-0400 Respiratory rate 16 /min Leny Hsu MD Work Phone: [facility] 01-19-2023 11:07-0400 SaO2% (BldA) [Mass fraction] 95 % Leny Hsu MD Work Phone: [facility] 01-19-2023 11:07-0400 Systolic blood pressure 124 mm[Hg] Leny Hsu MD Work Phone: [facility] 01-15-2023 13:37-0400 Body weight 91.35 kg Lydia Podlogar MAMMOGRAPHY TECHNICIAN.[employer]ONDANT COOKER Work Phone: [facility] 01-15-2023 13:37-0400 Diastolic blood pressure 68 mm[Hg] Lydia Podlogar MAMMOGRAPHY TECHNICIAN.FONDANT COOKER Work Phone: [facility] 01-15-2023 13:37-0400 Heart rate 93 /min Lydia Podlogar MAMMOGRAPHY TECHNICIAN.FONDANT COOKER Work Phone: [facility] 01-15-2023 13:37-0400 Respiratory rate 16 /min Lydia Podlogar MAMMOGRAPHY TECHNICIAN.FONDANT COOKER Work Phone: [facility] 01-15-2023 13:37-0400 SaO2% (BldA) [Mass fraction] 99 % Lydia Podlogar MAMMOGRAPHY TECHNICIAN.FONDANT COOKER Work Phone: [facility] 01-15-2023 13:37-0400 Systolic blood pressure 108 mm[Hg] Lydia Podlogar MAMMOGRAPHY TECHNICIAN.FONDANT COOKER Work Phone: [facility] 01-12-2023 13:23-0400 Body temperature 98.01 [degF] Jeanette Ibarra PA-C Work Phone: [facility] 01-12-2023 13:23-0400 Body weight 91.63 kg Jeanette Athy PA-C Work Phone: [facility] 01-12-2023 13:23-0400 Diastolic blood pressure 64 mm[Hg] Jeanette Athy PA-C Work Phone: [facility] 01-12-2023 13:23-0400 Heart rate 81 /min Jeanette Athy PA-C Work Phone: [facility] 01-12-2023 13:23-0400 Respiratory rate 18 /min Jeanette Athy PA-C Work Phone: [facility] 01-12-2023 13:23-0400 SaO2% (BldA) [Mass fraction] 98 % Jeanette Athy PA-C Work Phone: [facility] 01-12-2023 13:23-0400 Systolic blood pressure 110 mm[Hg] Jeanette Athy PA-C Work Phone: [facility] 12-13-2022 14:33-0400 Body height 167.6 cm Leny Hsu MD Work Phone: [facility] 12-13-2022 14:33-0400 Body weight 92.53 kg Leny Hsu MD Work Phone: [facility] 12-13-2022 14:33-0400 Diastolic blood pressure 82 mm[Hg] Leny Hsu MD Work Phone: [facility] 12-13-2022 14:33-0400 Heart rate 80 /min Leny Hsu MD Work Phone: [facility] 12-13-2022 14:33-0400 Respiratory rate 16 /min Leny Hsu MD Work Phone: [facility] 12-13-2022 14:33-0400 Systolic blood pressure 118 mm[Hg] Leny Hsu MD Work Phone: [facility] 11-06-2022 13:18-0400 Body height 167.6 cm Kirk Cast MD Work Phone: [facility] 11-06-2022 13:18-0400 Body temperature 98.2 [degF] Kirk Cast MD Work Phone: [facility] 11-06-2022 13:18-0400 Body weight 90.72 kg Kirk Cast MD Work Phone: [facility] 11-06-2022 13:18-0400 Diastolic blood pressure 90 mm[Hg] Kirk Cast MD Work Phone: [facility] 11-06-2022 13:18-0400 Heart rate 104 /min Kirk Cast MD Work Phone: [facility] 11-06-2022 13:18-0400 SaO2% (BldA) [Mass fraction] 97 % Kirk Cast MD Work Phone: [facility] 11-06-2022 13:18-0400 Systolic blood pressure 128 mm[Hg] Kirk Cast MD Work Phone: [facility] 10-14-2022 17:08-0400 Respiratory rate 16 /min [facility] 10-14-2022 15:11-0400 Body height 167.64 cm [facility] 10-14-2022 15:11-0400 Body mass index (BMI) [Ratio] 32.1 kg/m2 [facility] 10-14-2022 15:11-0400 Body temperature 97.6 [degF] [facility] 10-14-2022 15:11-0400 Body weight 90.12 kg [facility] 10-14-2022 15:11-0400 Diastolic blood pressure 97 mm[Hg] [facility] 10-14-2022 15:11-0400 Heart rate 86 /min [facility] 10-14-2022 15:11-0400 SaO2% (BldA) [Mass fraction] 97 % [facility] 10-14-2022 15:11-0400 Systolic blood pressure 132 mm[Hg] [facility] 08-30-2022 09:51-0500 Body weight 89.81 kg Leny Hsu MD Work Phone: [facility] 08-30-2022 09:51-0500 Diastolic blood pressure 78 mm[Hg] Leny Hsu MD Work Phone: [facility] 08-30-2022 09:51-0500 Heart rate 68 /min Leny Hsu MD Work Phone: [facility] 08-30-2022 09:51-0500 Respiratory rate 12 /min Leny Hsu MD Work Phone: [facility] 08-30-2022 09:51-0500 Systolic blood pressure 118 mm[Hg] Leny Hsu MD Work Phone: [facility] 08-15-2022 14:08-0500 Body height 163.2 cm Lydia Podlogar MAMMOGRAPHY TECHNICIAN.FONDANT COOKER Work Phone: [facility] 08-15-2022 14:08-0500 Body weight 89.27 kg Lydia Podlogar MAMMOGRAPHY TECHNICIAN.FONDANT COOKER Work Phone: [facility] 08-15-2022 14:08-0500 Diastolic blood pressure 78 mm[Hg] Lydia Podlogar MAMMOGRAPHY TECHNICIAN.FONDANT COOKER Work Phone: [facility] 08-15-2022 14:08-0500 Heart rate 93 /min Lydia Podlogar MAMMOGRAPHY TECHNICIAN.FONDANT COOKER Work Phone: [facility] 08-15-2022 14:08-0500 Respiratory rate 18 /min Lydia Podlogar MAMMOGRAPHY TECHNICIAN.FONDANT COOKER Work Phone: [facility] 08-15-2022 14:08-0500 SaO2% (BldA) [Mass fraction] 97 % Lydia Podlogar MAMMOGRAPHY TECHNICIAN.FONDANT COOKER Work Phone: [facility] 08-15-2022 14:08-0500 Systolic blood pressure 120 mm[Hg] Lydia Podlogar MAMMOGRAPHY TECHNICIAN.FONDANT COOKER Work Phone: [facility] 08-13-2022 15:14-0500 Body height 165.1 cm [facility] 08-13-2022 15:14-0500 Body mass index (BMI) [Ratio] 32.4 kg/m2 [facility] 08-13-2022 15:14-0500 Body temperature 97.6 [degF] [facility] 08-13-2022 15:14-0500 Body weight 88.45 kg [facility] 08-13-2022 15:14-0500 Diastolic blood pressure 80 mm[Hg] [facility] 08-13-2022 15:14-0500 Heart rate 110 /min [facility] 08-13-2022 15:14-0500 Respiratory rate 16 /min [facility] 08-13-2022 15:14-0500 SaO2% (BldA) [Mass fraction] 98 % [facility] 08-13-2022 15:14-0500 Systolic blood pressure 121 mm[Hg] [facility] 04-27-2022 12:59-0400 Body height 167.6 cm Nicole Kalka PA-C Work Phone: [facility] 04-27-2022 12:59-0400 Body weight 88.09 kg Nicole Kalka PA-C Work Phone: [facility] 04-27-2022 12:59-0400 Diastolic blood pressure 76 mm[Hg] Nicole Kalka PA-C Work Phone: [facility] 04-27-2022 12:59-0400 Heart rate 102 /min Nicole Kalka PA-C Work Phone: [facility] 04-27-2022 12:59-0400 Systolic blood pressure 114 mm[Hg] Nicole Kalka PA-C Work Phone: [facility] 03-30-2022 13:14-0400 Body height 167.6 cm Nicole Kalka PA-C Work Phone: [facility] 03-30-2022 13:14-0400 Body weight 89.45 kg Nicole Kalka PA-C Work Phone: [facility] 03-30-2022 13:14-0400 Diastolic blood pressure 80 mm[Hg] Nicole Kalka PA-C Work Phone: [facility] 03-30-2022 13:14-0400 Heart rate 98 /min Nicole Willka PA-C Work Phone: [facility] 03-30-2022 13:14-0400 Systolic blood pressure 116 mm[Hg] Nicole Willka PA-C Work Phone: [facility] 03-01-2022 19:13-0400 Body height 167.64 cm [facility] Work Phone: 03-01-2022 19:13-0400 Body mass index (BMI) [Ratio] 33 kg/m2 [facility] Work Phone: 03-01-2022 19:13-0400 Body temperature 97.9 [degF] [facility] Work Phone: 03-01-2022 19:13-0400 Body weight 92.7 kg [facility] Work Phone: 03-01-2022 19:13-0400 Diastolic blood pressure 71 mm[Hg] [facility] Work Phone: 03-01-2022 19:13-0400 Heart rate 84 /min [facility] Work Phone: 03-01-2022 19:13-0400 Respiratory rate 14 /min [facility] Work Phone: 03-01-2022 19:13-0400 SaO2% (BldA) [Mass fraction] 99 % [facility] Work Phone: 03-01-2022 19:13-0400 Systolic blood pressure 132 mm[Hg] [facility] Work Phone: 01-03-2022 15:41-0400 Body temperature 98.8 [degF] Dani Burgos APRN.CNP Work Phone: [facility] 01-03-2022 15:41-0400 Body weight 86.36 kg Dani Burgos APRN.CNP Work Phone: [facility] 01-03-2022 15:41-0400 Diastolic blood pressure 78 mm[Hg] Dani Burgos MAMMOGRAPHY TECHNICIAN.[employer]ONDANT COOKER Work Phone: [facility] 01-03-2022 15:41-0400 Heart rate 98 /min Dani Burgos MAMMOGRAPHY TECHNICIAN.FONDANT COOKER Work Phone: [facility] 01-03-2022 15:41-0400 Respiratory rate 16 /min Dani Burgos MAMMOGRAPHY TECHNICIAN.FONDANT COOKER Work Phone: [facility] 01-03-2022 15:41-0400 SaO2% (BldA) [Mass fraction] 99 % Dani Burgos MAMMOGRAPHY TECHNICIAN.FONDANT COOKER Work Phone: [facility] 01-03-2022 15:41-0400 Systolic blood pressure 124 mm[Hg] Dani Burgos MAMMOGRAPHY TECHNICIAN.FONDANT COOKER Work Phone: [facility] 12-13-2021 14:07-0400 Body height 167.6 cm Kirk Cast MD Work Phone: [facility] 12-13-2021 14:07-0400 Body temperature 98.49 [degF] Kirk Cast MD Work Phone: [facility] 12-13-2021 14:07-0400 Body weight 85.91 kg Kirk Cast MD Work Phone: [facility] 12-13-2021 14:07-0400 Diastolic blood pressure 86 mm[Hg] Kirk Cast MD Work Phone: [facility] 12-13-2021 14:07-0400 Heart rate 75 /min Kirk Cast MD Work Phone: [facility] 12-13-2021 14:07-0400 SaO2% (BldA) [Mass fraction] 95 % Kirk Cast MD Work Phone: [facility] 12-13-2021 14:07-0400 Systolic blood pressure 130 mm[Hg] Kirk Cast MD Work Phone: [facility] 12-06-2021 13:34-0400 Body height 167.6 cm Kirk Cast MD Work Phone: [facility] 12-06-2021 13:34-0400 Body temperature 98.91 [degF] Kirk Cast MD Work Phone: [facility] 12-06-2021 13:34-0400 Body weight 85.28 kg Kirk Cast MD Work Phone: [facility] 12-06-2021 13:34-0400 Diastolic blood pressure 82 mm[Hg] Kirk Cast MD Work Phone: [facility] 12-06-2021 13:34-0400 Heart rate 99 /min Kirk Cast MD Work Phone: [facility] 12-06-2021 13:34-0400 Respiratory rate 16 /min Kirk Cast MD Work Phone: [facility] 12-06-2021 13:34-0400 SaO2% (BldA) [Mass fraction] 95 % Kirk Cast MD Work Phone: [facility] 12-06-2021 13:34-0400 Systolic blood pressure 110 mm[Hg] Kirk Cast MD Work Phone: [facility] 11-28-2021 10:21-0400 Diastolic blood pressure 61 mm[Hg] Kirk Cast MD Work Phone: [facility] 11-28-2021 10:21-0400 Heart rate 86 /min Kirk Cast MD Work Phone: [facility] 11-28-2021 10:21-0400 Respiratory rate 16 /min Kirk Cast MD Work Phone: [facility] 11-28-2021 10:21-0400 SaO2% (BldA) [Mass fraction] 100 % Kirk Cast MD Work Phone: [facility] 11-28-2021 10:21-0400 Systolic blood pressure 123 mm[Hg] Kirk Cast MD Work Phone: [facility] 11-28-2021 09:14-0400 Body temperature 97.7 [degF] Kirk Cast MD Work Phone: [facility] 11-02-2021 14:55-0400 Diastolic blood pressure 78 mm[Hg] Mi Nurse Work Phone: [facility] 11-02-2021 14:55-0400 Heart rate 82 /min Mi Nurse Work Phone: [facility] 11-02-2021 14:55-0400 Systolic blood pressure 116 mm[Hg] Mi Nurse Work Phone: [facility] Encounters Encounter Date Encounter Type Care Provider Facility Start: 02-01-2025 ambulatory Isaac Crystal lity:[facility] Start: 01-08-2025 End: 01-08-2025 Refill Leny Hsu MD Work Phone: [facility] [place] Comment on above: Refill Request Start: 12-12-2024 End: 12-13-2024 Refill Leny Hsu MD Work Phone: [facility] Comment on above: Refill Request Start: 12-09-2024 End: 12-09-2024 Refill Leny Hsu MD Work Phone: [facility] [place] Comment on above: Refill Request Start: 11-14-2024 End: 11-19-2024 Follow-up encounter Katty Nava APRN.FONDANT COOKER Work Phone: General Surgery Comment on above: Results Start: 11-11-2024 End: 01-11-2025 Refill Leny Hsu MD Work Phone: [facility] [place] Comment on above: Refill Request Results Start: 11-10-2024 End: 11-10-2024 Patient encounter status Ema Abdullahi APRN.FONDANT COOKER Work Phone: [facility] Start: 11-10-2024 End: 11-10-2024 ambulatory LENY HSU Facility:[facility] Start: 11-10-2024 Encounter for gynecological examination (general) (routine) without abnormal findings EMA ABDULLAHI [facility] Start: 11-10-2024 End: 11-10-2024 Patient encounter procedure Ella Riley ILEANA Work Phone: [facility] Comment on above: Vaginal burning (Tania zoey Dx) Encounter for gyneco logical examination (general) (routine) without abnormal findings (Primary Dx); Vaginal discharge; Screening for cervical cancer; Encounter for screening for human papillomavirus (HPV); Screen for STD (sexually transmitted disease); Encounter for screening mammogram for breast cancer; Category 3 mammography result with short follow-up interval suggested for probably benign finding Start: 11-10-2024 End: 11-10-2024 ambulatory LENY HSU Facility:[facility] Start: 10-28-2024 End: 10-28-2024 Patient encounter procedure Leny Hsu MD Work Phone: [facility] [place] Comment on above: Grief (Primary Dx); Moderate episode of recurrent major depressive disorder (HCC); CRISTINO (generalized anxiety disorder) Start: 10-28-2024 End: 10-28-2024 ambulatory LENY HSU Facility:[facility] Start: 10-27-2024 End: 10-27-2024 Telephone encounter Leny Hsu MD Work Phone: [facility] [place] Comment on above: Opened In Error Patient Question Start: 10-24-2024 ambulatory LENY HSU Facility:[facility] Start: 10-24-2024 End: 10-24-2024 Subsequent hospital visit by physician Kirk Cast MD Work Phone: Ambulatory Surgery Comment on above: Hiatal hernia [K44.9 ] Start: 10-22-2024 End: 10-22-2024 Telephone encounter Elmira [facility] Start: 10-16-2024 End: 11-14-2024 Telephone encounter Leny Hsu MD Work Phone: [facility] [place] Comment on above: Insurance Authorizat ion Refill Request Start: 09-29-2024 End: 09-29-2024 ambulatory LENY HSU Facility:[facility] Start: 09-29-2024 End: 09-29-2024 Patient encounter procedure Kirk Cast MD Work Phone: General Surgery Comment on above: Hiatal hernia (Prima ry Dx); Gastroesophageal reflux disease, unspecified whether esophagitis present Start: 09-24-2024 End: 09-24-2024 ambulatory LENY HSU Facility:[facility] Start: 09-24-2024 End: 09-24-2024 Subsequent hospital visit by physician [facility] Work Phone: Radiology Comment on above: Abnormal finding on breast imaging [R92.8] Start: 09-17-2024 End: 09-17-2024 Refill Leny Hsu MD Work Phone: [facility] Comment on above: Refill Request Start: 09-03-2024 End: 09-03-2024 Follow-up encounter Leny Hsu MD Work Phone: [facility] [place] Start: 09-02-2024 End: 10-03-2024 ambulatory Leny Hsu MD Work Phone: [facility] [place] Start: 09-02-2024 End: 09-02-2024 Patient encounter procedure Leny Hsu MD Work Phone: [facility] [place] Comment on above: Essential hypertensi on (Primary Dx); Acquired hypothyroidism; Gastroesophageal reflux disease without esophagitis; Migraine without aura and without status migrainosus, not intractable; Moderate episode of recurrent major depressive disorder (HCC); CRISTINO (generalized anxiety disorder); Class 1 obesity due to excess calories with body mass index (BMI) of 34.0 to 34.9 in adult, unspecified whether serious comorbidity present; Tinea corporis; Encounter for immunization Start: 08-20-2024 End: 08-20-2024 Refill Leny Hsu MD Work Phone: [facility] Comment on above: Refill Request Start: 08-20-2024 End: 08-27-2024 Refill Kristy Asencio PA-C Work Phone: Neurology Comment on above: Refill Request Start: 08-08-2024 End: 08-11-2024 Telephone encounter Leny Hsu MD Work Phone: [facility] Comment on above: Results Start: 08-07-2024 End: 08-08-2024 Telephone encounter Leny Hsu MD Work Phone: [facility] [place] Comment on above: Results Start: 08-06-2024 End: 08-06-2024 Subsequent hospital visit by physician [facility] Work Phone: Radiology Comment on above: Suprapubic pain, acu te [R10.2] Start: 08-06-2024 End: 08-06-2024 ambulatory LENY SHU Facility:[facility] Start: 08-06-2024 End: 08-06-2024 Patient encounter procedure Leny Hsu MD Work Phone: [facility] Comment on above: Suprapubic pain, acu te (Primary Dx); Urinary frequency; Iron deficiency; Chronic constipation Start: 08-06-2024 End: 08-06-2024 ambulatory LENY HSU Facility:[facility] Start: 07-23-2024 End: 07-23-2024 Refill Leny Hsu MD Work Phone: [facility] Comment on above: Refill Request Start: 06-25-2024 End: 06-25-2024 Refill Leny Hsu MD Work Phone: [facility] Comment on above: Refill Request Start: 05-27-2024 End: 05-28-2024 Refill Leny Hsu MD Work Phone: [facility] Comment on above: Refill Request Start: 05-13-2024 End: 05-13-2024 Patient encounter procedure Kristy Asencio PA-C Work Phone: Neurology Comment on above: Migraine without aur a and without status migrainosus, not intractable (Primary Dx); Syncope and collapse; Orthostatic lightheadedness Start: 05-13-2024 End: 05-13-2024 ambulatory LENY HSU Facility:[facility] Start: 05-01-2024 End: 05-01-2024 Refill Leny Hsu MD Work Phone: [facility] Comment on above: Refill Request Start: 04-24-2024 End: 04-24-2024 ambulatory LENY HSU Facility:[facility] Start: 04-24-2024 End: 04-24-2024 Patient encounter procedure Kev Manning OD Work Phone: Ophthalmology Comment on above: Migraine without aur a and without status migrainosus, not intractable (Primary Dx); Presbyopia; Optic cupping of both eyes Start: 04-16-2024 End: 04-16-2024 ambulatory Bradley Basilio MA [facility] Start: 04-16-2024 End: 04-16-2024 Patient encounter procedure Bradley Basilio MA [facility] Comment on above: Population Health Na vigation Outreach ([facility] B[facility]) Start: 03-11-2024 End: 03-11-2024 Refill Nicole Solano PA-C Work Phone: [facility] [place] Comment on above: Refill Request Start: 02-29-2024 End: 02-29-2024 Refill Leny Hsu MD Work Phone: [facility] Comment on above: Refill Request Start: 02-28-2024 End: 02-29-2024 Telephone encounter Leny Hsu MD Work Phone: [facility] Comment on above: Results Start: 02-27-2024 End: 02-27-2024 ambulatory LENY HSU Facility:[facility] Start: 02-19-2024 End: 02-19-2024 ambulatory LENY HSU Facility:[facility] Start: 02-19-2024 End: 02-19-2024 Patient encounter procedure Efrain Rollins Work Phone: Podiatry Comment on above: Callus of foot (Prim navya Dx) Start: 02-05-2024 Telephone encounter Isaac Hsu MD Work Phone: [facility] [place] Comment on above: Results Refill Request Start: 02-04-2024 End: 02-04-2024 Patient encounter procedure Leny Hsu MD Work Phone: [facility] [place] Comment on above: Left tennis elbow (P rimary Dx) Start: 02-04-2024 End: 02-04-2024 ambulatory LENY HSU Facility:[facility] Start: 01-31-2024 Refill Nicole Solano PA-C Work Phone: [facility] [place] Comment on above: Refill Request Start: 01-31-2024 Refill Leny Hsu MD Work Phone: [facility] Comment on above: Refill Request Start: 01-24-2024 Telephone encounter Isaac Hsu MD Work Phone: [facility] [place] Comment on above: Results (Echo and st ress test) Start: 01-14-2024 End: 01-14-2024 ambulatory LENY HSU Facility:[facility] Start: 01-14-2024 End: 01-14-2024 Patient encounter procedure Leny Hsu MD Work Phone: [facility] Comment on above: Annual physical exam (Primary Dx); Essential hypertension; Acquired hypothyroidism; Migraine without aura and without status migrainosus, not intractable; Enlarged thyroid; Anxiety with depression; Class 1 obesity due to excess calories with body mass index (BMI) of 34.0 to 34.9 in adult, unspecified whether serious comorbidity present Start: 01-02-2024 End: 01-02-2024 ambulatory LENY HSU Facility:[facility] Start: 01-02-2024 End: 01-02-2024 Patient encounter procedure Leny Hsu MD Work Phone: [facility] Comment on above: Other chest pain (Pr imary Dx); Acute serous otitis media of left ear, recurrence not specified Start: 12-19-2023 End: 12-19-2023 ambulatory LENY HSU Facility:[facility] Start: 12-19-2023 End: 12-19-2023 Patient encounter procedure Leny Hsu MD Work Phone: [facility] [place] Comment on above: Plantar wart of both feet (Primary Dx); Tinea corporis; Moderate episode of recurrent major depressive disorder (HCC) Start: 12-10-2023 Refill Nicole Willka PA-C Work Phone: [facility] Comment on above: Refill Request Start: 11-09-2023 Refill Nicole Kalka PA-C Work Phone: [facility] Comment on above: Refill Request Start: 11-08-2023 Refill Leny Hsu MD Work Phone: [facility] Comment on above: Refill Request Start: 10-12-2023 Refill Nicole Kalka PA-C Work Phone: [facility] Comment on above: Refill Request Start: 10-11-2023 Refill Kristy elias PA-C Work Phone: Neurology Comment on above: Refill Request Start: 10-01-2023 End: 10-01-2023 Patient encounter procedure Leny Hsu MD Work Phone: [facility] [place] Comment on above: Tinea corporis (Prim navya Dx) Start: 09-20-2023 End: 09-20-2023 Patient encounter procedure Jordin Dickerson MD Work Phone: General Surgery Comment on above: Abnormal finding on breast imaging (Primary Dx); Pseudoangiomatous stromal hyperplasia of breast Start: 09-19-2023 End: 09-19-2023 Patient encounter procedure Kristy KRUEGER-C Work Phone: Neurology Comment on above: Migraine without aur a and without status migrainosus, not intractable (Primary Dx); Syncope and collapse; Orthostatic lightheadedness Start: 09-12-2023 Refill Leny Hsu MD Work Phone: [facility] Comment on above: Refill Request; Refi ll Request Start: 09-05-2023 End: 09-05-2023 Subsequent hospital visit by physician Stereo/Ultrasound Biopsy [facility] Comment on above: Abnormal mammogram [ R92.8] Arrived Start: 08-27-2023 Refill Leny Hsu MD Work Phone: [facility] Comment on above: Refill Request Start: 08-20-2023 Refill Leny Hsu MD Work Phone: [facility] Comment on above: Refill Request Start: 08-17-2023 ambulatory Hoa navarrete MD Work Phone: [facility] Comment on above: Breast Problem Start: 08-17-2023 Patient encounter procedure Hoa Tolentino MD Work Phone: [facility] Start: 08-13-2023 End: 08-13-2023 Patient encounter procedure Kirk Cast MD Work Phone: General Surgery Comment on above: Abnormal mammogram ( Primary Dx) Start: 08-13-2023 End: 05-13-2024 Telephone encounter Kirk Cast MD Work Phone: General Surgery Comment on above: Appointment Start: 06-15-2023 End: 06-15-2023 Patient encounter procedure Kev Sawyer Nigel OD Work Phone: Ophthalmology Comment on above: Migraine without aur a and without status migrainosus, not intractable (Primary Dx); Presbyopia; Optic cupping of both eyes Start: 06-07-2023 Telephone encounter Kristy meza PA-C Work Phone: Neurology Start: 06-05-2023 End: 06-05-2023 Patient encounter procedure Kristy Asencio PA-C Work Phone: Neurology Comment on above: Migraine without aur a and without status migrainosus, not intractable (Primary Dx); Syncope and collapse; Orthostatic lightheadedness; Obstructive sleep apnea; Neuropathy; Blurred vision, bilateral Start: 05-29-2023 Refill Nicole Solano PA-C Work Phone: [facility] Comment on above: Refill Request Start: 05-25-2023 Refill Leny Hsu MD Work Phone: [facility] Comment on above: Refill Request Start: 05-14-2023 End: 05-14-2023 Patient encounter procedure Leny Hsu MD Work Phone: [facility] Comment on above: Migraine without aur a and without status migrainosus, not intractable (Primary Dx) Start: 05-09-2023 Telephone encounter Nicole Graham preston PA-C Work Phone: [facility] Comment on above: Results Start: 05-08-2023 ambulatory LENY HSU Facility:[facility] Start: 05-08-2023 End: 05-08-2023 Subsequent hospital visit by physician [facility] Comment on above: Canceled (Pt cx: Res cheduled) Esophageal dysphagia [R13.19] Start: 05-01-2023 Refill Leny Hsu MD Work Phone: [facility] [place] Comment on above: Refill Request Start: 04-18-2023 Telephone encounter Nicole Graham PRICEC Work Phone: [facility] Comment on above: fibroscan Start: 04-18-2023 End: 04-18-2023 Patient encounter procedure Nicole Solano PA-C Work Phone: [facility] Comment on above: Hiatal hernia with G ERD without esophagitis (Primary Dx); Esophageal dysphagia; Irritable bowel syndrome with both constipation and diarrhea; Fatty metamorphosis of liver Start: 03-29-2023 Refill Leny Hsu MD Work Phone: [facility] Comment on above: Refill Request Start: 03-22-2023 Telephone encounter Terry Young PA-C Work Phone: [facility] Comment on above: Results Start: 03-16-2023 End: 03-16-2023 Patient encounter procedure Leny Hsu MD Work Phone: [facility] Comment on above: Claudication (HCC) ( Primary Dx); Migraine without aura and without status migrainosus, not intractable; Essential hypertension; Acquired hypothyroidism; Anxiety with depression; Encounter for immunization Start: 03-02-2023 Refill Leny Hsu MD Work Phone: [facility] Comment on above: Refill Request Start: 02-06-2023 Refill Leny Hsu MD Work Phone: [facility] Comment on above: Refill Request Start: 01-19-2023 Telephone encounter Nicole PRICEC Work Phone: [facility] [place] Comment on above: Appointment Start: 01-19-2023 End: 01-19-2023 Patient encounter procedure Leny Hsu MD Work Phone: [facility] Comment on above: Plantar wart (Primar y Dx); S/P cryotherapy of skin lesion Start: 01-15-2023 End: 01-15-2023 Patient encounter procedure Lydia Gonzalez APRN.CNP Work Phone: [facility] [place] Comment on above: Bilateral swelling o f feet (Primary Dx); Plantar wart Start: 01-12-2023 End: 01-12-2023 Patient encounter procedure Jeanette Ibarra PA-C Work Phone: [facility] Comment on above: Peripheral edema (Pr imary Dx) Start: 01-05-2023 Refill Leny Hsu MD Work Phone: [facility] [place] Comment on above: Refill Request Start: 12-13-2022 End: 12-13-2022 Patient encounter procedure Leny Hsu MD Work Phone: [facility] Comment on above: Syncope and collapse (Primary Dx); Elbow pain, right Start: 12-12-2022 Refill Leny Hsu MD Work Phone: [facility] Comment on above: Refill Request Start: 11-06-2022 End: 11-06-2022 Patient encounter procedure Kirk Cast MD Work Phone: General Surgery Comment on above: Abnormal mammogram ( Primary Dx) Start: 10-19-2022 Telephone encounter Bradley isaac APRN.FONDANT COOKER Work Phone: [facility] Comment on above: Results Start: 10-18-2022 End: 10-18-2022 Subsequent hospital visit by physician Diagnostic Mammo [facility] Mammogram Comment on above: Inconclusive mammogr am [R92.2] Start: 10-14-2022 End: 10-14-2022 [facility] Start: 09-22-2022 Refill Leny Hsu MD Work Phone: [facility] Comment on above: Refill Request Start: 09-04-2022 Documentation procedure Mammog alessia Coordinator [facility] Start: 09-04-2022 Letter encounter Mammography Coordinator [facility] Department Start: 09-01-2022 Telephone encounter Bradley isaac APRN.FONDANT COOKER Work Phone: [facility] Comment on above: Results Start: 08-30-2022 End: 08-30-2022 Subsequent hospital visit by physician [facility] Work Phone: Radiology Comment on above: Sprain of ligament o f right ankle, subsequent encounter [S93.401D] Start: 08-30-2022 End: 08-30-2022 Patient encounter procedure Leny Hsu MD Work Phone: [facility] Comment on above: Sprain of ligament o f right ankle, subsequent encounter (Primary Dx) Start: 08-16-2022 Telephone encounter Lydia mayen APRN.FONDANT COOKER Work Phone: [facility] Comment on above: Results Start: 08-15-2022 End: 08-15-2022 Patient encounter procedure Lydia Gonzalez APRN.FONDANT COOKER Work Phone: [facility] Comment on above: Annual physical exam (Primary Dx); Migraine without aura and without status migrainosus, not intractable; Thrombocytosis; Acquired hypothyroidism; Encounter for screening mammogram for breast cancer; Encounter for immunization; Sprain of ligament of right ankle, subsequent encounter; Moderate episode of recurrent major depressive disorder (HCC) Start: 08-15-2022 Telephone encounter Isaac Hsu MD Work Phone: [facility] Comment on above: Patient Question Start: 08-13-2022 End: 08-13-2022 [facility] Start: 05-23-2022 Refill Leny Hsu MD Work Phone: [facility] Comment on above: Refill Request Start: 05-11-2022 End: 05-11-2022 Subsequent hospital visit by physician [facility] Scan Comment on above: Hiatal hernia with G ERD without esophagitis [K44.9, K21.9] Start: 05-03-2022 Refill Leny Hsu MD Work Phone: [facility] Comment on above: Refill Request Start: 04-27-2022 End: 04-27-2022 Patient encounter procedure Nicole Solano PA-C Work Phone: [facility] Comment on above: Hiatal hernia with G ERD without esophagitis (Primary Dx); Bilateral upper abdominal pain; Irritable bowel syndrome with both constipation and diarrhea; Abdominal distension (gaseous); Nausea Start: 03-30-2022 End: 03-30-2022 Patient encounter procedure Nicole Solano PA-C Work Phone: [facility] Comment on above: Hiatal hernia with G ERD without esophagitis (Primary Dx); Bilateral upper abdominal pain; Irritable bowel syndrome with both constipation and diarrhea Start: 03-14-2022 Refill Leny Hsu MD Work Phone: [facility] Comment on above: Refill Request Start: 03-07-2022 Refjanelle Pino MD Work Phone: Orthopaedics Comment on above: Refill Request Start: 03-01-2022 End: 03-01-2022 [facility] Start: 01-18-2022 Refill Leny Hsu MD Work Phone: [facility] Comment on above: Refill Request Start: 01-12-2022 End: 01-12-2022 Patient encounter procedure Francisco J Pino MD Work Phone: Orthopaedics Comment on above: 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); Acute pain of right shoulder; Impingement syndrome of right shoulder Start: 01-10-2022 Telephone encounter Isaac Hsu MD Work Phone: [facility] Comment on above: Medication Request Start: 01-04-2022 Telephone encounter Isaac Hsu MD Work Phone: [facility] Comment on above: Patient Update Start: 01-03-2022 End: 01-03-2022 Subsequent hospital visit by physician [facility] Work Phone: Radiology Comment on above: Right wrist pain [M2 5.531] Start: 01-03-2022 End: 01-03-2022 Patient encounter procedure Dani Burgos APRN.CNP Work Phone: [facility] Comment on above: Right wrist pain (Pr imary Dx) Start: 12-21-2021 Telephone encounter Isaac Hsu MD Work Phone: [facility] Comment on above: results/consult requ est Start: 12-21-2021 End: 12-21-2021 Subsequent [facility] Work Phone: Radiology Comment on above: Acute pain of right shoulder [M25.511] Start: 12-20-2021 End: 12-20-2021 Subsequent hospital visit by physician [facility] (I-Stat/1.5t) Work Phone: Radiology Comment on above: Acute pain of right shoulder [M25.511] Start: 12-13-2021 End: 12-13-2021 Patient encounter procedure Kirk Cast MD Work Phone: General Surgery Comment on above: Epigastric pain (Tania zoey Dx); Nausea Start: 12-09-2021 End: 12-09-2021 Subsequent hospital visit by physician [facility] Work Phone: Nuclear Medicine Comment on above: Nausea [R11.0] Start: 12-06-2021 End: 12-06-2021 Patient encounter procedure Kirk Cast MD Work Phone: General Surgery Comment on above: Epigastric pain (Tania zoey Dx); Nausea Start: 12-02-2021 Telephone encounter Lydia mayen APRN.FONDANT COOKER Work Phone: [facility] Comment on above: Patient Update; FYI- No Action Needed Patient Question (st omach pain) Start: 12-01-2021 End: 12-01-2021 Discharged Recurring [facility] Start: 11-28-2021 End: 11-28-2021 Subsequent hospital visit by physician Kirk Cast MD Work Phone: Ambulatory Surgery Comment on above: Screening for colon cancer [Z12.11] Start: 11-02-2021 End: 11-02-2021 Nursing evaluation of patient and report Mi Nurse Work Phone: [facility] Comment on above: Essential hypertensi on with goal blood pressure less than 140/90 (Primary Dx) Start: 11-02-2021 Telephone encounter Isaac Hsu MD Work Phone: [facility] Comment on above: Blood Pressure Check Start: 10-14-2021 Telephone encounter Lydia mayen APRN.FONDANT COOKER Work Phone: [facility] Comment on above: Referral Information Start: 09-19-2021 End: 09-19-2021 Subsequent hospital visit by physician Xr [facility] Work Phone: Radiology Comment on above: Acute pain of right shoulder [M25.511] Start: 08-23-2021 End: 08-23-2021 Refill Leny Hsu MD Work Phone: [facility] Comment on above: Refill Request; Refi ll Request Right wrist injury, initial encounter [S69.91XA] Start: 03-31-2021 Telephone encounter Isaac Hsu MD Work Phone: [facility] [place] Comment on above: Opened In Error Start: 07-13-2020 End: 07-13-2020 Emergency department patient visit GREGORY GALINDO [facility] Start: 03-11-2017 End: 03-12-2017 Emergency department patient visit Davis Wheeler Facility:[place] Procedures Date Procedure Procedure Detail Performing Clinician Start: 11-10-2024 Urnls dip stick/tablet rgnt auto w/o microscopy Ella Riley APRN.FONDANT COOKER Work Phone: Start: 10-24-2024 Esophagogastroduodenoscopy transoral diagnostic Kirk Cast MD Work Phone: Start: 09-24-2024 Us breast uni real time with image limited Jordin Dickerson MD Work Phone: Start: 09-24-2024 Digital breast tomosynthesis bilateral Jordin Dickerson MD Work Phone: Start: 08-06-2024 Urnls dip stick/tablet rgnt auto w/o microscopy Leny Hsu MD Work Phone: Start: 02-04-2024 Lipid 1996 panel - Serum or Plasma Hari Hsu MD Work Phone: Start: 01-02-2024 Ecg routine ecg w/least 12 lds i&r only Leny Hsu MD Work Phone: Start: 09-05-2023 Digital breast tomosynthesis unilateral Kirk Cast MD Work Phone: Start: 09-05-2023 Bx breast w/device 1st lesion ultrasound guid Kirk Cast MD Work Phone: Start: 09-05-2023 Us breast uni real time with image limited Kirk Cast MD Work Phone: Start: 09-05-2023 Digital breast tomosynthesis unilateral Kirk Cast MD Work Phone: Start: 06-15-2023 Computerized ophthalmic imaging optic nerve Kev Manning OD Work Phone: Start: 05-08-2023 Radiologic exam esophagus single contrast study Nicole Solano PA-C Work Phone: Start: 03-16-2023 INFLUENZA VACCINE, AGE 6 MO - 64 YR, QUADRIVALENT (AFLURIA, FLULAVAL, FLUZONE) Leny Hsu MD Work Phone: Start: 10-18-2022 Us breast uni real time with image limited Bradley Mcmullen MAMMOGRAPHY TECHNICIAN.FONDANT COOKER Work Phone: Start: 10-18-2022 Digital breast tomosynthesis unilateral Venus Zaidi PA-C Work Phone: Start: 09-01-2022 Mammography Mammography Coordinator Start: 08-30-2022 Radex ankle complete minimum 3 views Leny Hsu MD Work Phone: Start: 08-15-2022 INFLUENZA VACCINE QUADRIVALENT 6 MO - 64 YRS IM Lydia Gonzalez MAMMOGRAPHY TECHNICIAN.FONDANT COOKER Work Phone: Start: 05-11-2022 Ct abdomen & pelvis w/contrast material Nicole Solano PA-C Work Phone: Start: 03-01-2022 Plain X-ray of shoulder Start: 01-12-2022 Arthrocentesis aspir&/inj major jt/bursa w/o us Francisco J Pino MD Work Phone: Start: 01-03-2022 Radex wrist complete minimum 3 views Dani Burgos MAMMOGRAPHY TECHNICIAN.FONDANT COOKER Work Phone: Start: 12-21-2021 Mri any jt upper extremity w/o contrast matrl Leny Hsu MD Work Phone: Start: 12-09-2021 Hepatobil syst imag inc gb w/pharma intervenj Kirk Cast MD Work Phone: Start: 11-28-2021 Colon ca scrn not hi rsk ind Lydia duenas MAMMOGRAPHY TECHNICIAN.FONDANT COOKER Work Phone: Start: 11-28-2021 Colonoscopy Kirk Cast MD Work Phone: Start: 09-19-2021 Radex spine cervical 4 or 5 views Lydia Gonzalez MAMMOGRAPHY TECHNICIAN.BHARATHI Work Phone: Start: 08-23-2021 Radex wrist complete minimum 3 views Tri Pool MAMMOGRAPHY TECHNICIAN.BHARATHI Work Phone: Start: 08-09-2021 Mammography Lydia Gonzalez MAMMOGRAPHY TECHNICIAN.BHARATHI Work Phone: Start: 09-16-2020 Lipid 1996 panel - Serum or Plasma NA Ba jordy DENT Work Phone: Plan of Treatment Date Care Activity Detail Author Start: 11-29-2031 Colonoscopy COLONOSCOPY [facility] Start: 11-29-2031 COLORECTAL CANCER SCREENING COLORECTAL CANCER SCREENING [facility] Start: 11-29-2031 Screening for malignant neoplasm of colon [facility] Start: 10-01-2029 Urine microalbumin profile [facility] Start: 02-03-2029 Lipid panel Lipid Screening [facility] Start: 08-06-2027 Diabetes Screening Diabetes Screening [facility] Start: 02-03-2027 Diabetes Screening Diabetes Screening [facility] Start: 07-12-2026 Diabetes Screening Diabetes Screening [facility] Start: 06-05-2026 Diabetes Screening Diabetes Screening [facility] Start: 12-13-2025 DIABETES SCREEN DIABETES SCREEN [facility] Start: 12-13-2025 Diabetes Screening Diabetes Screening [facility] Start: 11-10-2025 BP Controlled (<130/80) BP Controlled (<130/80) [facility] in Start: 11-10-2025 Screening for malignant neoplasm of cervix Cervical Cancer Screening [facility] Start: 11-10-2025 End: 11-10-2025 Patient encounter procedure 11/10/2025 11:30 AM EDT Office Visit OB/Gynecology [address] [place] [id number] Ema Abdullahi MAMMOGRAPHY TECHNICIAN.FONDANT COOKER [address] [place] [address] Annual OB/Gynecology Comment on above: Annual Start: 10-28-2025 Annual PCP Team Chronic Disease Visit Annual PCP Team Chronic Disease Visit [facility] Start: 10-28-2025 BP Controlled (<130/80) BP Controlled (<130/80) [facility] Start: 09-24-2025 Screening for malignant neoplasm of breast Mammogram Screening [facility] Start: 09-16-2025 Lipid 1996 panel - Serum or Plasma Lipid Screening [facility] Start: 09-16-2025 Lipid panel Lipid Screening [facility] Start: 09-16-2025 LIPID SCREEN LIPID SCREEN [facility] Start: 09-03-2025 End: 09-03-2025 Patient encounter procedure 09/03/2025 11:30 AM EST Appointment Mammogram [address] [place] [address] : Encounter for gynecological examination (general) (routine) without abnormal findings [Z01.419]; Encounter for screening mammogram for breast cancer [Z12.31] Mammogram Comment on above: : Encounter for gynecological examinatio n (general) (routine) without abnormal findings [Z01.419]; Encounter for screening mammogram for breast cancer [Z12.31] Start: 09-02-2025 Annual PCP Team Chronic Disease Visit Annual PCP Team Chronic Disease Visit [facility] Start: 09-02-2025 Covid-19 Vaccine ( season) Covid-19 Vaccine () [facility] Comment on above: Postponed from 03/09/2024 (Declined at t his time) Start: 08-06-2025 Annual PCP Team Chronic Disease Visit Annual PCP Team Chronic Disease Visit [facility] Start: 08-06-2025 BP Controlled (<130/80) BP Controlled (<130/80) [facility] in Start: 07-28-2025 HPV TESTING HPV TESTING [facility] Start: 07-28-2025 PAP TESTING PAP TESTING [facility] Start: 07-28-2025 Screening for malignant neoplasm of cervix [facility] Start: 05-13-2025 End: 12-10-2025 MG Breast - left Diagnostic for implant [facility]TH DIAGNOSTIC LEFT Radiology Routine Category 3 mammography result with short follow-up interval suggested for probably benign finding Expected: 05/13/2025, Expires: 12/10/2025 [facility] Comment on above: Expected: 05/13/2025, Expires: Start: 05-13-2025 End: 12-10-2025 US Breast - left limited US BREAST LTD LEFT Radiology Routine Category 3 mammography result with short follow-up interval suggested for probably benign finding Expected: 05/13/2025, Expires: 12/10/2025 [facility] Comment on above: Expected: 05/13/2025, Expires: Start: 05-13-2025 End: 05-13-2025 Patient encounter procedure Mammogram Comment on above: : Category 3 mammography result with nayan rt follow-up interval suggested for probably benign finding [R92.8] Start: 04-24-2025 End: 04-24-2025 Patient encounter procedure 04/24/2025 1:45 PM EDT Office Visit [facility] Ophthalmology [address] [place], [place] [id number] Kev Manning, OD [address] [place], [place] [id number] 1 year adult eye exam Ophthalmology Comment on above: 1 year adult eye exam Start: 03-31-2025 DIABETES SCREEN DIABETES SCREEN [facility] Start: 03-09-2025 Influenza vaccination Influenza Vaccine (#1) [place] [facility] Start: 03-02-2025 End: 03-02-2025 Patient encounter procedure 03/02/2025 1:00 PM EDT Office Visit Family Safia [facility]faro [address] [place] [address] Leny Hsu MD [address] [place] [address] 6 month follow up Family Medicine [facility] Comment on above: 6 month follow up Start: 02-03-2025 Annual PCP Team Chronic Disease Visit Annual PCP Team Chronic Disease Visit [facility] Start: 02-03-2025 BP Controlled (<130/80) BP Controlled (<130/80) [facility] Start: 01-13-2025 Annual PCP Team Chronic Disease Visit Annual PCP Team Chronic Disease Visit [facility] Start: 01-13-2025 Covid-19 Vaccine ( season) Covid-19 Vaccine ( season) [facility] Comment on above: Postponed from 03/09/2023 (Declined at t his time) Start: 01-13-2025 Hepatitis B Vaccine (1 of 3 - 19+ 3-dose series) Hepatitis B Vaccine (1 of 3 - 19+ 3-dose series) [facility] Comment on above: Postponed from 1995 (Declined at t his time) Start: 01-01-2025 Annual PCP Team Chronic Disease Visit Annual PCP Team Chronic Disease Visit [facility] Start: 12-22-2024 End: 12-22-2024 Patient encounter procedure 12/22/2024 1:00 PM EDT Office Visit General Surgery [address] [place], [place] [phone] Katty Nava, BALDOMERO.FONDANT COOKER [address] [place], [place] [phone] follow up General Surgery Comment on above: follow up Start: 12-18-2024 Annual PCP Team Chronic Disease Visit Annual PCP Team Chronic Disease Visit [facility] Start: 12-18-2024 BP Controlled (<130/80) BP Controlled (<130/80) [facility] Start: 11-11-2024 End: 11-11-2024 Patient encounter procedure Neurology Comment on above: follow up 6 months Migraines, Syncope- KRIS 05/13/24 cont. Topiramate, take Amerge Start: 11-05-2024 End: 11-05-2024 Patient encounter procedure 11/05/2024 2:30 PM EDT Office Visit General Surgery [address] [place], [place] [phone] Katty Nava, BALDOMERO.FONDANT COOKER [address] [place], [place] [phone] 10-24 EGD follow up General Surgery Comment on above: 10-24 EGD follow up Start: 10-24-2024 End: 10-24-2024 Patient encounter procedure 10/24/2024 2:45 PM EDT Appointment Ambulatory Surgery [address] [place], [place] [id number] Kirk Cast MD [address] [place], [place] [phone] 11 Arrival time do not change do to transportation- Per Dr Cast he will sign off so patient can take insruance transportation home. Ambulatory Surgery Comment on above: 11 Arrival time do not change do to leonard sportation- Per Dr Cast he will sign off so patient can take insruance transportation home. Start: 10-24-2024 End: 10-24-2024 Patient encounter procedure Ambulatory Surgery Comment on above: 11 Arrival time do not change do to leonard sportation- Per Dr Cast he will sign off so patient can take insruance transportation home. Start: 10-24-2024 End: 10-24-2024 Patient encounter procedure 10/24/2024 7:30 AM EDT Appointment Ambulatory Surgery [address] [place] [phone] [facility] Cast [facility] [address] [facility] [place] [place] [phone] 11 Arrival time do not change do to transportation- Per Dr Cast he will sign off so patient can take insruance transportation home. Ambulatory Surgery Comment on above: 11 Arrival time do not change do to leonard sportation- Per Dr Cast he will sign off so patient can take insruance transportation home. Start: 09-30-2024 Annual PCP Team Chronic Disease Visit Annual PCP Team Chronic Disease Visit [facility] Start: 09-30-2024 BP Controlled (<130/80) BP Controlled (<130/80) [facility] Start: 09-29-2024 End: 09-29-2024 Patient encounter procedure 09/29/2024 1:00 PM EDT Office Visit General Surgery [address] [place], [place] [phone] Kirk Cast MD [address] [place] [phone] Rescheduled July appt for 6 month f/u- review mamm diag & US 09/24/24 General Surgery Comment on above: Rescheduled July appt for 6 month f/u - review mamm diag & US 09/24/24 Start: 09-24-2024 End: 09-24-2024 Patient encounter procedure Mammogram Comment on above: Comp- late 6 mo bx f/u left, due for amelia at Abnormal finding on breast imaging [R92.8]; 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] Start: 09-19-2024 BP Controlled (<130/80) BP Controlled (<130/80) [facility] Start: 09-18-2024 BP Controlled (<130/80) BP Controlled (<130/80) [facility] in Start: 09-02-2024 End: 12-02-2024 Thyrotropin [Units/volume] in Serum or Plasma [facility] Work Phone: Comment on above: Expected: 09/02/2024, Expires: Start: 09-02-2024 End: 09-02-2024 Patient encounter procedure 09/02/2024 1:00 PM EST Office Visit [facility] [address] [place] [address] Leny Hsu MD [address] [facility] [place], [place] [phone] routine follow up [facility] Comment on above: routine follow up Start: 08-19-2024 End: 08-19-2024 Patient encounter procedure 08/19/2024 11:40 AM EST Office Visit [facility] [address] [place] [address] Leny Hsu MD [address] [facility] [place], [place] [id number] routine follow up [facility] Comment on above: routine follow up Start: 08-06-2024 End: 08-06-2024 Patient encounter procedure 08/06/2024 10:40 AM EST Office Visit [facility] [address] [place], [place] [address] Leny Hsu MD [address] [place] [address] 6 month follow up [facility] Comment on above: 6 month follow up Start: 07-28-2024 End: 07-28-2024 Patient encounter procedure General Surgery Comment on above: 6 month f/u (reschedule from 03/2024)- re view L mamm diag and US breast Start: 07-25-2024 Screening for malignant neoplasm of breast Mammogram Screening [facility] Start: 07-12-2024 Annual PCP Team Chronic Disease Visit Annual PCP Team Chronic Disease Visit [facility] Start: 07-09-2024 Medicare [facility] Annual Wellness Visit Medicare Advantage Annual Wellness Visit [facility] Start: 06-16-2024 End: 06-16-2024 Patient encounter procedure 06/16/2024 1:00 PM EST Office Visit [facility] [address] [place], [place] [phone] Kev Manning, OD [address] [address] 1 year follow up -Migraine without aura and without status migrainosus, not intractable [G43.009] Ophthalmology Comment on above: 1 year follow up -Migraine without aura and without status migrainosus, not intractable [G43.009] Start: 06-05-2024 BP Controlled (<130/80) BP Controlled (<130/80) [facility] Start: 05-21-2024 End: 05-21-2024 Patient encounter procedure 05/21/2024 1:00 PM EST Office Visit General Surgery [address] [place] [address] Jordin Dickerson MD [address] [phone] 6 MTH F/U BREAST General Surgery Comment on above: 6 MTH F/U BREAST Start: 05-14-2024 Annual PCP Team Chronic Disease Visit Annual PCP Team Chronic Disease Visit [facility] Start: 05-14-2024 BP Controlled (<130/80) BP Controlled (<130/80) [facility] Start: 05-13-2024 End: 05-13-2024 Patient encounter procedure 05/13/2024 11:00 AM EST Office Visit Neurology [address] [place] [address] Kristy Asencio PA-C [address] [place] [address] 4 month follow up Neurology Comment on above: 4 month follow up Start: 04-24-2024 End: 04-24-2024 Patient encounter procedure 04/24/2024 8:00 AM EDT Office Visit [facility] [address] [place] [address] Kev Manning, OD [address] [place] [address] 1 year follow up -Migraine without aura and without status migrainosus, not intractable [G43.009] Ophthalmology Comment on above: 1 year follow up -Migraine without aura and without status migrainosus, not intractable [G43.009] Start: 04-18-2024 BP Controlled (<130/80) BP Controlled (<130/80) [facility] Start: 04-04-2024 End: 04-04-2024 Patient encounter procedure 04/04/2024 1:00 PM EDT Office Visit General Surgery [address] [place], [place] [phone] Jordin Dickerson MD [address] [phone] 6 MTH F/U BREAST General Surgery Comment on above: 6 MTH F/U BREAST Start: 04-03-2024 Annual PCP Team Chronic Disease Visit Annual PCP Team Chronic Disease Visit [facility] Start: 03-28-2024 DIABETES SCREEN DIABETES SCREEN [facility] Start: 03-25-2024 End: 03-25-2024 Patient encounter procedure 03/25/2024 2:15 PM EDT Office Visit General Surgery [address] [place], [place] [phone] Jordin Dickerson MD [address] [address] 6 MTH F/U BREAST General Surgery Comment on above: 6 MTH F/U BREAST Start: 03-22-2024 End: 10-19-2024 MG Breast - left Diagnostic for implant PARTH DIAGNOSTIC LEFT Radiology Routine 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 Expected: 03/22/2024, Expires: 10/19/2024 [facility] Work Phone: Comment on above: Expected: 03/22/2024, Expires: 5 Start: 03-22-2024 End: 10-19-2024 US Breast - left limited US BREAST LTD LEFT Radiology Routine 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 Expected: 03/22/2024, Expires: 10/19/2024 [facility] Work Phone: Comment on above: Expected: 03/22/2024, Expires: 5 Start: 03-16-2024 ANNUAL PCP TEAM CHRONIC DISEASE VISIT ANNUAL PCP TEAM CHRONIC DISEASE VISIT [facility] Start: 03-16-2024 BP CONTROLLED (<130/80) BP CONTROLLED (<130/80) [facility] in Start: 03-09-2024 Covid-19 Vaccine ( season) Covid-19 Vaccine ( season) [facility] Start: 03-09-2024 Covid-19 Vaccine ( season) Covid-19 Vaccine ( season) [facility] Start: 03-09-2024 Influenza vaccination Influenza Vaccine (#1) [facility] Start: 02-19-2024 End: 02-19-2024 Patient encounter procedure 02/19/2024 1:30 PM EDT Office Visit Podiatry [address] [place], [place] [phone] Efrain Rollins [address] [place] [address] Plantar wart of both feet [B07.0] Podiatry Comment on above: Plantar wart of both feet [B07.0] Start: 02-12-2024 End: 02-12-2024 Patient encounter procedure 02/12/2024 3:45 PM EDT Office Visit Neurology [address] [facility] [place] [address] Kristy Asencio PA-C [address] [place] [address] 4 month follow up Neurology Comment on above: 4 month follow up Start: 02-05-2024 End: 05-06-2024 C reactive protein [Mass/volume] in Serum or Plasma C-REACTIVE PROTEIN Lab Routine Microcytic anemia Thrombocytosis Expected: 02/05/2024, Expires: 05/06/2024 [facility] Comment on above: Expected: 02/05/2024, Expires: Start: 02-05-2024 End: 05-06-2024 CBC W Ordered Manual Differential panel - Blood PATHOLOGIST INTERPRETATION WITH CBC AND DIFF Lab Routine Microcytic anemia Thrombocytosis Expected: 02/05/2024, Expires: 05/06/2024 [facility] Comment on above: Expected: 02/05/2024, Expires: Start: 02-05-2024 End: 05-06-2024 Erythrocyte sedimentation rate SEDIMENTATION RATE, WESTERGREN Lab Routine Microcytic anemia Thrombocytosis Expected: 02/05/2024, Expires: 05/06/2024 [facility] Comment on above: Expected: 02/05/2024, Expires: Start: 02-05-2024 End: 05-06-2024 Ferritin [Mass/volume] in Serum or Plasma FERRITIN Lab Routine Microcytic anemia Thrombocytosis Expected: 02/05/2024, Expires: 05/06/2024 [facility] Comment on above: Expected: 02/05/2024, Expires: Start: 02-05-2024 End: 05-06-2024 Iron and Iron binding capacity panel - Serum or Plasma IRON AND TIBC Lab Routine Microcytic anemia Thrombocytosis Expected: 02/05/2024, Expires: 05/06/2024 [facility] Work Phone: Comment on above: Expected: 02/05/2024, Expires: Start: 02-04-2024 End: 02-04-2024 Patient encounter procedure 02/04/2024 11:00 AM EDT Office Visit [facility] [address] [place] [address] Leny Hsu MD [address] [place] [address] 2 week follow up- left arm pain [facility] Comment on above: 2 week follow up- left arm pain Start: 01-25-2024 End: 01-25-2024 Patient encounter procedure 01/25/2024 11:30 AM EDT Appointment Radiology [address] [place] [address] Acquired hypothyroidism [E03.9]; Enlarged thyroid [E04.9] Radiology Comment on above: Acquired hypothyroidism [E03.9]; Enlarge d thyroid [E04.9] Start: 01-22-2024 End: 01-22-2024 Patient encounter procedure 01/22/2024 2:45 PM EDT Office Visit Podiatry [address] [place] [address] Efrain Rollins [address] [place] [address] Plantar wart of both feet [B07.0] Podiatry Comment on above: Plantar wart of both feet [B07.0] Start: 01-20-2024 ANNUAL PCP TEAM CHRONIC DISEASE VISIT ANNUAL PCP TEAM CHRONIC DISEASE VISIT [facility] Start: 01-20-2024 BP CONTROLLED (<130/80) BP CONTROLLED (<130/80) [facility] Start: 01-16-2024 ANNUAL PCP TEAM CHRONIC DISEASE VISIT ANNUAL PCP TEAM CHRONIC DISEASE VISIT [facility] Start: 01-16-2024 BP CONTROLLED (<130/80) BP CONTROLLED (<130/80) [facility] in Start: 01-14-2024 End: 04-14-2024 CBC W Auto Differential panel - Blood COMPLETE BLOOD COUNT AND DIFFERENTIAL Lab Routine Annual physical exam Expected: 01/14/2024, Expires: 04/14/2024 [facility] Work Phone: Comment on above: Expected: 01/14/2024, Expires: Start: 01-14-2024 End: 04-14-2024 Comprehensive metabolic 2000 panel - Serum or Plasma COMPREHENSIVE METABOLIC PANEL Lab Routine Annual physical exam Expected: 01/14/2024, Expires: 04/14/2024 [facility] Comment on above: Expected: 01/14/2024, Expires: Start: 01-14-2024 End: 04-14-2024 LIPID PANEL, NONFASTING LIPID PANEL, NONFASTING Lab Routine Annual physical exam Expected: 01/14/2024, Expires: 04/14/2024 [facility] Comment on above: Expected: 01/14/2024, Expires: Start: 01-14-2024 End: 04-14-2024 Thyrotropin [Units/volume] in Serum or Plasma THYROID STIMULATING HORMONE Lab Routine Annual physical exam Expected: 01/14/2024, Expires: 04/14/2024 [facility] Comment on above: Expected: 01/14/2024, Expires: Start: 01-14-2024 End: 01-14-2024 Patient encounter procedure 01/14/2024 1:20 PM EDT Office Visit Family [facility] [place] [address] [place] [address] Leny Hsu MD [address] [place] [address] Physical/6 month follow up Family Medicine [facility] Comment on above: Physical/6 month follow up Start: 01-13-2024 BP CONTROLLED (<130/80) BP CONTROLLED (<130/80) [facility] Start: 12-14-2023 ANNUAL PCP TEAM CHRONIC DISEASE VISIT ANNUAL PCP TEAM CHRONIC DISEASE VISIT [facility] Start: 09-01-2023 Mammography [facility] Start: 08-30-2023 ANNUAL PCP TEAM CHRONIC DISEASE VISIT ANNUAL PCP TEAM CHRONIC DISEASE VISIT [facility] Start: 08-30-2023 BP CONTROLLED (<130/80) BP CONTROLLED (<130/80) [facility] Start: 08-15-2023 ANNUAL PCP TEAM CHRONIC DISEASE VISIT ANNUAL PCP TEAM CHRONIC DISEASE VISIT [facility] Start: 08-15-2023 BP CONTROLLED (<130/80) BP CONTROLLED (<130/80) [facility] Start: 08-15-2023 COVID-19 VACCINE (#1) COVID-19 VACCINE (#1) [facility] Comment on above: Postponed from 1976 (Declined at t his time) Start: 06-05-2023 End: 09-04-2023 C reactive protein [Mass/volume] in Serum or Plasma [facility] Work Phone: Comment on above: Expected: 06/05/2023, Expires: 4 Start: 06-05-2023 End: 09-04-2023 Cobalamin (Vitamin B12) [Mass/volume] in Serum or Plasma [facility] Work Phone: Comment on above: Expected: 06/05/2023, Expires: 4 Start: 06-05-2023 End: 09-04-2023 Hemoglobin A1c in Blood [facility] Work Phone: Comment on above: Expected: 06/05/2023, Expires: 4 Start: 06-05-2023 End: 09-04-2023 PROT ELECT SERUM WITH LAURY AND INTERP [facility] Work Phone: Comment on above: Expected: 06/05/2023, Expires: 4 Start: 04-27-2023 BP CONTROLLED (<130/80) BP CONTROLLED (<130/80) [facility] Start: 03-09-2023 Covid-19 Vaccine () Covid-19 Vaccine () [facility] Start: 03-09-2023 Influenza vaccination INFLUENZA (#1) [facility] Start: 01-03-2023 BP CONTROLLED (<130/80) BP CONTROLLED (<130/80) [facility] Start: 12-13-2022 End: 02-12-2023 Comprehensive metabolic 2000 panel - Serum or Plasma [facility] Work Phone: Comment on above: Expected: 12/13/2022, Expires: 3 Start: 12-13-2022 End: 02-12-2023 Magnesium [Mass/volume] in Serum or Plasma [facility] Work Phone: Comment on above: Expected: 12/13/2022, Expires: 3 Start: 12-13-2022 End: 02-12-2023 Thyrotropin [Units/volume] in Serum or Plasma [facility] Work Phone: Comment on above: Expected: 12/13/2022, Expires: 3 Start: 12-13-2022 End: 02-12-2023 Urinalysis complete panel - Urine URINALYSIS WITH MICROSCOPIC, REFLEX CULTURE Lab Routine Syncope and collapse Expected: 12/13/2022, Expires: 02/12/2023 [facility] Work Phone: Comment on above: Expected: 12/13/2022, Expires: 3 Start: 12-02-2022 ANNUAL PCP TEAM CHRONIC DISEASE VISIT ANNUAL PCP TEAM CHRONIC DISEASE VISIT [facility] Start: 11-28-2022 Colonoscopy COLONOSCOPY [facility] Start: 11-28-2022 COLORECTAL CANCER SCREENING COLORECTAL CANCER SCREENING [facility] Start: 11-02-2022 BP CONTROLLED (<130/80) BP CONTROLLED (<130/80) [facility] Start: 10-19-2022 ANNUAL PCP TEAM CHRONIC DISEASE VISIT ANNUAL PCP TEAM CHRONIC DISEASE VISIT [facility] Start: 09-19-2022 ANNUAL PCP TEAM CHRONIC DISEASE VISIT ANNUAL PCP TEAM CHRONIC DISEASE VISIT [facility] Start: 08-15-2022 End: 10-15-2022 CBC W Auto Differential panel - Blood [facility] Work Phone: Comment on above: Expected: 08/15/2022, Expires: 3 Start: 08-15-2022 End: 10-15-2022 Thyrotropin [Units/volume] in Serum or Plasma [facility] Work Phone: Comment on above: Expected: 08/15/2022, Expires: 3 Start: 08-09-2022 Mammography MAMMOGRAM [facility] Start: 03-30-2022 End: 05-30-2022 CBC W Auto Differential panel - Blood CBC + DIFF Lab Routine Bilateral upper abdominal pain Expected: 03/30/2022, Expires: 05/30/2022 [facility] Work Phone: Comment on above: Expected: 03/30/2022, Expires: 2 Start: 03-30-2022 End: 05-30-2022 CELIAC SCREEN WITH REFLEX CELIAC SCREEN WITH REFLEX Lab Routine Irritable bowel syndrome with both constipation and diarrhea Expected: 03/30/2022, Expires: 05/30/2022 [facility] Work Phone: Comment on above: Expected: 03/30/2022, Expires: 2 Start: 03-30-2022 End: 05-30-2022 Comprehensive metabolic 2000 panel - Serum or Plasma COMP METABOLIC PANEL Lab Routine Bilateral upper abdominal pain Expected: 03/30/2022, Expires: 05/30/2022 [facility] Work Phone: Comment on above: Expected: 03/30/2022, Expires: 2 Start: 03-30-2022 End: 05-30-2022 Lipase [Enzymatic activity/volume] in Serum or Plasma LIPASE BLD Lab Routine Bilateral upper abdominal pain Expected: 03/30/2022, Expires: 05/30/2022 [facility] Work Phone: Comment on above: Expected: 03/30/2022, Expires: 2 Start: 03-30-2022 End: 05-30-2022 Thyrotropin [Units/volume] in Serum or Plasma TSH BLD Lab Routine Bilateral upper abdominal pain Expected: 03/30/2022, Expires: 05/30/2022 [facility] Work Phone: Comment on above: Expected: 03/30/2022, Expires: 2 Start: 03-09-2022 Influenza vaccination INFLUENZA (#1) [facility] Start: 2021 COLOGUARD (FIT-DNA) COLOGUARD (FIT-DNA) [facility] Start: 2021 Colonoscopy COLONOSCOPY [facility] Start: 2021 COLORECTAL CANCER SCREENING COLORECTAL CANCER SCREENING [facility] Start: [address] COLONOGRAPHY [facility] Start: 2021 FECAL OCCULT BLOOD FECAL OCCULT BLOOD [facility] Start: 2021 Screening for malignant neoplasm of colon [facility] Start: 2021 SIGMOIDOSCOPY SIGMOIDOSCOPY [facility] Start: 1995 Hepatitis B Vaccine (1 of 3 - 19+ 3-dose series) Hepatitis B Vaccine (1 of 3 - 19+ 3-dose series) [facility] Start: 1994 Anxiety Screening Anxiety Screening [facility] Start: 1994 BP CONTROLLED (<130/80) BP CONTROLLED (<130/80) [facility] Start: 1981 COVID-19 VACCINE (#1) COVID-19 VACCINE (#1) [facility] Start: 1981 COVID-19 VACCINE (1) COVID-19 VACCINE (1) [facility] Start: 1976 COVID-19 VACCINE (#1) COVID-19 VACCINE (#1) [facility] Start: 1976 HEPATITIS B (1 of 3 - 3-dose series) HEPATITIS B (1 of 3 - 3-dose series) [facility] Start: 1976 Hepatitis B Vaccine (1 of 3 - 3-dose series) Hepatitis B Vaccine (1 of 3 - 3-dose series) [facility] Bacteria identified in Urine by Culture BACTERIAL CULTURE, URINE Microbiology Routine Vaginal burning 11/10/2024 11:52 AM EDT [facility] Work Phone: BACTERIAL VAGINOSIS NAAT BACTERI AL VAGINOSIS NAAT Lab Routine Encounter for gynecological examination (general) (routine) without abnormal findings Vaginal discharge 11/10/2024 2:24 PM EDT [facility] BRYON/TRICHOMONAS NAAT BRYON /TRICHOMONAS NAAT Lab Routine Encounter for gynecological examination (general) (routine) without abnormal findings Vaginal discharge 11/10/2024 2:24 PM EDT [facility] Cardiovascular funct ion eval w/tilt table w/mntr TILT TABLE EVALUATION Cardiology Routine Syncope and collapse Orthostatic lightheadedness Ordered: 06/05/2023 [facility] Work Phone: Comment on above: Ordered: 06/05/2023 Chlamydia trachomatis+Neisseria gonorrhoeae DNA [Presence] in Unspecified specimen by SAVI with probe detection GONORRHEA/CHLAMYDIA NAAT Lab Routine Encounter for gynecological examination (general) (routine) without abnormal findings Screen for STD (sexually transmitted disease) 11/10/2024 2:24 PM EDT [facility] End: 05-27-2023 Ct abdomen & pelvis w/contrast material CT ABD/PEL W IVCON Radiology Routine Hiatal hernia with GERD without esophagitis Bilateral upper abdominal pain Abdominal distension (gaseous) Nausea 1 Occurrences starting 04/27/2022 until 05/27/2023 [facility] Work Phone: Comment on above: 1 Occurrences starting 04/27/2022 until 05/27/2023 End: 10-02-2025 DBT Breast - bilateral screening PARTH SCREENING W LAURA Radiology Routine Encounter for screening mammogram for breast cancer 1 Occurrences starting 09/02/2024 until 10/02/2025 [facility] Work Phone: Comment on above: 1 Occurrences starting 09/02/2024 until 10/02/2025 End: 12-10-2025 DBT Breast - bilateral screening PARTH SCREENING W LAURA Radiology Routine Encounter for gynecological examination (general) (routine) without abnormal findings Encounter for screening mammogram for breast cancer 1 Occurrences starting 11/10/2024 until 12/10/2025 [facility] Work Phone: Comment on above: 1 Occurrences starting 11/10/2024 until 12/10/2025 DDI VIBRATION CONTRO LLED TRANSIENT ELASTOGRAPHY (VCTE) DDI VIBRATION CONTROLLED TRANSIENT ELASTOGRAPHY (VCTE) Endoscopy Routine Fatty metamorphosis of liver Ordered: 04/18/2023 [facility] Work Phone: Comment on above: Ordered: 04/18/2023 Destruction benign lesions up to 14 DESTR LESION BENIGN/PREMAL Procedures Routine Plantar wart S/P cryotherapy of skin lesion Ordered: 01/19/2023 [facility] Work Phone: Comment on above: Ordered: 01/19/2023 End: 12-14-2023 ECG COMPLETE ECG COMPLETE ECG Routine Syncope and collapse 1 Occurrences starting 12/13/2022 until 12/14/2023 [facility] Work Phone: Comment on above: 1 Occurrences starting 12/13/2022 until 12/14/2023 ECG COMPLETE ECG COMPLETE ECG 01/02/2024 12:02 PM EDT [facility] End: 01-01-2025 Echocardiography ECHO Cardiology TEMITOPE Other chest pain 1 Occurrences starting 01/02/2024 until 01/01/2025 [facility] Comment on above: 1 Occurrences starting 01/02/2024 until 01/01/2025 End: 12-13-2022 EGD DIAGNOSTIC EGD DIAGNOSTIC Endoscopy Routine Epigastric pain Nausea 1 Occurrences starting 12/13/2021 until 12/13/2022 [facility] Work Phone: Comment on above: 1 Occurrences starting 12/13/2021 until 12/13/2022 End: 09-29-2025 EGD DIAGNOSTIC EGD DIAGNOSTIC Endoscopy Routine Hiatal hernia Gastroesophageal reflux disease, unspecified whether esophagitis present 1 Occurrences starting 09/29/2024 until 09/29/2025 [facility] Work Phone: Comment on above: 1 Occurrences starting 09/29/2024 until 09/29/2025 End: 01-01-2025 EXERCISE STRESS ECG (WITHOUT IMAGING) EXERCISE STRESS ECG (WITHOUT IMAGING) Cardiology TEMITOPE Other chest pain 1 Occurrences starting 01/02/2024 until 01/01/2025 [facility] Comment on above: 1 Occurrences starting 01/02/2024 until 01/01/2025 Hemoglobin.gastrohansa estin al.lower [Presence] in Stool by Immunoassay IMMUNOCHEMICAL FECAL OCCULT BLOOD TEST Lab Routine Microcytic anemia Thrombocytosis Ordered: 02/05/2024 [facility] Comment on above: Ordered: 02/05/2024 Hemoglobin.gastroint estin al.lower [Presence] in Stool by Immunoassay IMMUNOCHEMICAL FECAL OCCULT BLOOD TEST Lab Routine Iron deficiency Ordered: 02/28/2024 [facility] Work Phone: Comment on above: Ordered: 02/28/2024 End: 01-05-2023 Hepatobil syst imag inc gb w/pharma intervenj NM HEPATOBILIARY W EF AND/OR RX Radiology Routine Nausea 1 Occurrences starting 12/06/2021 until 01/05/2023 [facility] Work Phone: Comment on above: 1 Occurrences starting 12/06/2021 until 01/05/2023 End: 06-04-2024 HOME SLEEP APNEA TEST (HSAT) HOME SLEEP APNEA TEST (HSAT) Procedures Routine Obstructive sleep apnea 1 Occurrences starting 06/05/2023 until 06/04/2024 [facility] Work Phone: Comment on above: 1 Occurrences starting 06/05/2023 until 06/04/2024 End: 09-14-2023 PARTH SCREENING PARTH SCREENING Radiology Routine Encounter for screening mammogram for breast cancer 1 Occurrences starting 08/15/2022 until 09/14/2023 [facility] Work Phone: Comment on above: 1 Occurrences starting 08/15/2022 until 09/14/2023 PAP TEST PAP TEST Lab Esa sanders Encounter for gynecological examination (general) (routine) without abnormal findings Screening for cervical cancer Encounter for screening for human papillomavirus (HPV) 11/10/2024 2:24 PM EDT [facility] Patient Education [facility] Work Phone: Patient referral [facility] Work Phone: End: 03-16-2024 PVR ANK PRESS [facility] PVR ANK PRESS [facility] Vascular Lab Routine Claudication (HCC) 1 Occurrences starting 03/16/2023 until 03/16/2024 [facility] Work Phone: Comment on above: 1 Occurrences starting 03/16/2023 until 03/16/2024 End: 05-17-2024 Radiologic exam esophagus single contrast study XR ESOPHAGRAM Radiology Routine Esophageal dysphagia 1 Occurrences starting 04/18/2023 until 05/17/2024 [facility] Work Phone: Comment on above: 1 Occurrences starting 04/18/2023 until 05/17/2024 End: 09-05-2023 SURGICAL PATHOLOGY SURGICAL PATHOLOGY Lab Routine ONCE for 1 Occurrences starting 09/05/2023 until 09/05/2023 [facility] Work Phone: Comment on above: ONCE for 1 Occurrences starting 09/05/19 until 09/05/2023 Tissue Pathology bio psy report [facility] Work Phone: Comment on above: Release Upon Ordering for 1 Occurrences starting 10/24/2024, 1 completed End: 01-12-2023 Us abdominal real time w/image limited US ABD RT UPPER QUADRANT Radiology Routine Epigastric pain Nausea 1 Occurrences starting 12/13/2021 until 01/12/2023 [facility] Work Phone: Comment on above: 1 Occurrences starting 12/13/2021 until 01/12/2023 End: 09-11-2024 US BIOPSY BREAST LEFT US BIOPSY BREAST LEFT Radiology Routine Abnormal mammogram 1 Occurrences starting 08/13/2023 until 09/11/2024 [facility] Work Phone: Comment on above: 1 Occurrences starting 08/13/2023 until 09/11/2024 End: 02-12-2025 US Thyroid gland US THYROID/PARATHYROID Radiology Routine Acquired hypothyroidism Enlarged thyroid 1 Occurrences starting 01/14/2024 until 02/12/2025 [facility] Comment on above: 1 Occurrences starting 01/14/2024 until 02/12/2025 End: 05-17-2024 XR ABDOMEN 1V SUPINE XR ABDOMEN 1V SUPINE Radiology Routine Irritable bowel syndrome with both constipation and diarrhea 1 Occurrences starting 04/18/2023 until 05/17/2024 [facility] Work Phone: Comment on above: 1 Occurrences starting 04/18/2023 until 05/17/2024 XR Abdomen Supine an d Upright XR ABDOMEN 1V SUPINE Radiology Routine Suprapubic pain, acute 08/06/2024 12:36 PM EST [facility] Work Phone: End: 09-29-2023 XR ANKLE GENERAL 3V AP/LAT/OBL RIGHT XR ANKLE GENERAL 3V AP/LAT/OBL RIGHT Radiology Routine Sprain of ligament of right ankle, subsequent encounter 1 Occurrences starting 08/30/2022 until 09/29/2023 [facility] Work Phone: Comment on above: 1 Occurrences starting 08/30/2022 until 09/29/2023 XR ANKLE GENERAL 3V AP/LAT/OBL RIGHT XR ANKLE GENERAL 3V AP/LAT/OBL RIGHT Radiology Routine Sprain of ligament of right ankle, subsequent encounter 08/30/2022 10:48 AM EST [facility] Work Phone: End: 01-31-2025 XR Chest PA and Lateral XR CHEST 2V FRONTAL/LAT Radiology Routine Other chest pain 1 Occurrences starting 01/02/2024 until 01/31/2025 [facility] Work Phone: Comment on above: 1 Occurrences starting 01/02/2024 until 01/31/2025 [facility] Immunizations Immunization Date Immunization Notes Care Provider [facility] 09-02-2024 influenza, seasonal, injectable Leny Hsu MD Work Phone: [facility] 09-02-2024 influenza virus vaccine, unspecified formulation Leny Hsu MD Work Phone: [facility] 03-16-2023 influenza, injectabl e, quadrivalent, contains preservative Leny Hsu MD Work Phone: [facility] 03-16-2023 influenza virus vaccine, unspecified formulation Leny Hsu MD Work Phone: [facility] 08-15-2022 influenza, injectabl e, quadrivalent, contains preservative Leny Hsu MD Work Phone: [facility] 03-28-2021 influenza, injectabl e, quadrivalent, contains preservative Lydia Podlogar MAMMOGRAPHY TECHNICIAN.[facility] Work Phone: [facility] Work Phone: 03-30-2020 influenza, injectabl e, quadrivalent, contains preservative Lydia Podlogar MAMMOGRAPHY TECHNICIAN.[facility] Work Phone: [facility] 10-02-2019 tetanus toxoid, reduced diphtheria toxoid, and acellular pertussis vaccine, adsorbed Lydia Podlogar MAMMOGRAPHY TECHNICIAN.[facility] Work Phone: [facility] Work Phone: 04-03-2017 influenza, injectabl e, quadrivalent, contains preservative Ldyia Podlogar MAMMOGRAPHY TECHNICIAN.[facility] Work Phone: [facility] Work Phone: 07-27-2016 influenza, injectabl e, quadrivalent, contains preservative Lydia Podlogar MAMMOGRAPHY TECHNICIAN.[facility] Work Phone: [facility] Work Phone: Payers Date Payer Category Payer Self-pay [id number] 2019 [place] ([place] [facility] [id number] 2019 Unknown JOSE OZUNA [facility] S AND BLUE SHIELD [place] [facility] [place] [id number] 2019-Present [phone] [address] [place] [address] HMO [id number] 2019 Unknown [id number] 2019 Unknown [id number] 2019 Medicaid MEDICAID [facility] MEDICAID [id number] 2019-Present [phone] [address] [place] [address] Medicaid [id number] 2019 Medicaid [id number] 2015 Medicaid [id number] 2001 Medicare [id number] Medicare [id number] Unknown [id number] Social History Date Type Detail Facility Start: 07-26-2015 End: 05-13-2024 Tobacco smoking status MDIS Ex-smoker [facility] Work Phone: History of tobacco use Cigarette Smoker [facility] Work Phone: Start: 07-26-2015 End: 11-23-2022 Cigarettes smoked current (pack per day) - Reported 1 [facility] Start: 07-26-2015 End: 05-13-2024 Tobacco use and exposure Former smokeless tobacco user [facility] Work Phone: End: 04-25-2015 History of tobacco use User of smokeless tobacco [facility] Work Phone: Start: 08-23-2021 End: 09-19-2021 Alcohol intake Current non-drinker of alcohol (finding) [facility] Start: 12-06-2010 History SDOH Alcohol Comment Occasionally [facility] Start: 1975 Sex Assigned At Not on file [facility] Start: 07-24-2021 End: 04-27-2022 Exposure to SARS-CoV-2 (event) Not sure [facility] Work Phone: Start: 05-19-2021 End: 10-14-2022 Tobacco smoking status NHIS Unknown if ever smoked [facility] Start: 06-21-2020 None [facility] Start: 06-21-2020 Alone [facility] Start: 12-23-2019 Cigarettes [facility] Start: 1975 Sex Assigned At Female W [facility] Start: 12-10-2021 End: 12-20-2021 Exposure to SARS-CoV-2 (event) Unable to assess [facility] Work Phone: History of tobacco use Current smoker [facility] Start: 11-23-2022 End: 01-15-2023 Tobacco use panel [facility] Adult Depression Screening Assessment 0 [facility] Start: 08-13-2023 End: 01-02-2024 Alcohol intake Ex-drinker (finding) [facility] Start: 01-14-2024 End: 11-10-2024 Alcohol intake Current drinker of alcohol (finding) [facility] Start: 01-14-2024 Alcohol Comment less than weekly use [facility] NEGATED: Highlighted row [facility] Functional Status Date Assessment Result Facility 01-11-2015 Are you deaf, or do you have serious difficulty hearing No 01/11/2015 1:49 PM Holly Conley MA No [facility] 01-11-2015 Are you blind, or do you have serious difficulty seeing, even when wearing glasses No 01/11/2015 1:49 PM Holly Conley MA No [facility] 01-11-2015 Do you have serious difficulty walking or climbing stairs No 01/11/2015 1:49 PM Holly Conley MA No [facility] 01-11-2015 Do you have difficul ty dressing or bathing No 01/11/2015 1:49 PM EDT Holly Neff MA No [facility] 01-11-2015 Because of a physica l, mental, or emotional condition, do you have difficulty doing errands alone such as visiting a physician's office or shopping Yes 01/11/2015 1:49 PM EDT Holly Neff MA Yes [facility] Mental Status Date Assessment Result Facility 01-11-2015 Because of a physica l, mental, or emotional condition, do you have serious difficulty concentrating, remembering, or making decisions Yes 01/11/2015 1:49 PM EDT Holly Neff MA Yes [facility] Clinical Notes 03-29-2015 to 01-08-2025 Telephone Encounter - Shraddha Tucker RN - 01/08/2025 11:13 AM EDTTelephone Encounter - Shraddha Tucker RN - 01/08/2025 11:13 AM Ema Head APRN.CNP - 11/10/2024 1:33 PM EDT Note Date & Type Note Facility 01-08-2025 Telephone encounter Note The patient has been identified by name and date of : Yes Caregiver verified no other encounters exist for this prescription request: Yes Caregiver confirmed with patient/requestor that no other refills are due, in the near future, with this provider at this time: Yes The last office visit in the department: 10/28/2024 Does the patient have a future office visit with this provider/department: Yes 03/02/2025 Requested Prescriptions Pending Prescriptions Disp Refills loratadine (CLARITIN) 10 mg tablet 90 tablet 1 Sig: Take 1 tablet by mouth once daily. Shraddha Tucker RN January 08, 2025 11:14 AM [facility] 01-08-2025 Miscellaneous Notes The patient has been identified by name and date of : Yes Caregiver verified no other encounters exist for this prescription request: Yes Caregiver confirmed with patient/requestor that no other refills are due, in the near future, with this provider at this time: Yes The last office visit in the department: 10/28/2024 Does the patient have a future office visit with this provider/department: Yes 03/02/2025 Requested Prescriptions Pending Prescriptions Disp Refills loratadine (CLARITIN) 10 mg tablet 90 tablet 1 Sig: Take 1 tablet by mouth once daily. Shraddha Tucker RN January 08, 2025 11:14 AM documented in this encounter [facility] 12-12-2024 Telephone encounter Note Prescription Refill Information The patient has been identified by name and date of : Yes Caregiver verified no other encounters exist for this prescription request: Yes Caregiver confirmed with patient/requestor that no other refills are due, in the near future, with this provider at this time: Yes The last office visit in the department: 10/28/24 Does the patient have a future office visit with this provider/department: Yes (03/02/25) Requested Prescriptions Pending Prescriptions Disp Refills omeprazole (PRILOSEC) 40 mg capsule 60 capsule 5 Sig: Take 1 capsule by mouth two times a day. Bernie Tomlinson RN December 12, 2024 3:26 PM [facility] 12-12-2024 Miscellaneous Notes Prescription Refill Information The patient has been identified by name and date of : Yes Caregiver verified no other encounters exist for this prescription request: Yes Caregiver confirmed with patient/requestor that no other refills are due, in the near future, with this provider at this time: Yes The last office visit in the department: 10/28/24 Does the patient have a future office visit with this provider/department: Yes (03/02/25) Requested Prescriptions Pending Prescriptions Disp Refills omeprazole (PRILOSEC) 40 mg capsule 60 capsule 5 Sig: Take 1 capsule by mouth two times a day. Bernie Tomlinson RN December 12, 2024 3:26 PM documented in this encounter [facility] 12-09-2024 Miscellaneous Notes The patient has been identified by name and date of : Yes Caregiver verified no other encounters exist for this prescription request: Yes Caregiver confirmed with patient/requestor that no other refills are due, in the near future, with this provider at this time: Yes The last office visit in the department: 10/28/2024 Does the patient have a future office visit with this provider/department: Yes 03/02/2025 Requested Prescriptions Pending Prescriptions Disp Refills venlafaxine (EFFEXOR) 75 mg tablet 270 tablet 0 Sig: Take 1 tablet by mouth three times a day. Shraddha Tucker RN December 09, 2024 10:04 AM documented in this encounter [facility] 12-09-2024 Telephone encounter Note The patient has been identified by name and date of : Yes Caregiver verified no other encounters exist for this prescription request: Yes Caregiver confirmed with patient/requestor that no other refills are due, in the near future, with this provider at this time: Yes The last office visit in the department: 10/28/2024 Does the patient have a future office visit with this provider/department: Yes 03/02/2025 Requested Prescriptions Pending Prescriptions Disp Refills venlafaxine (EFFEXOR) 75 mg tablet 270 tablet 0 Sig: Take 1 tablet by mouth three times a day. Shraddha Tucker RN December 09, 2024 10:04 AM [facility] 11-19-2024 Telephone encounter Note Script sent. [facility] 11-19-2024 Miscellaneous Notes Script sent. Patient called back and instructions given. Patient scheduled for 12/22/24. Patient asking for script to be sent in to [facility] for Prilosec. Celestina Dickerson RN Tried to contact patient by phone. Unable to leave message and no mychart activated.Ana Raymundo RN documented in this encounter [facility] 11-19-2024 Telephone encounter Note Patient called back and instructions given. Patient scheduled for 12/22/24. Patient asking for script to be sent in to [facility] for Prilosec. Celestina Dickerson RN [facility] 11-19-2024 Telephone encounter Note Tried to contact patient by phone. Unable to leave message and no mychart activated.Ana Raymundo RN [facility] 11-11-2024 Miscellaneous Notes The patient has been identified by name and date of : Yes Caregiver verified no other encounters exist for this prescription request: Yes Caregiver confirmed with patient/requestor that no other refills are due, in the near future, with this provider at this time: Yes The last office visit in the department: 10/28/2024 Does the patient have a future office visit with this provider/department: Yes 03/02/2025 Requested Prescriptions Pending Prescriptions Disp Refills busPIRone (BUSPAR) 5 mg tablet 180 tablet 0 Sig: Take 1 tablet by mouth two times a day. levothyroxine (SYNTHROID) 75 mcg tablet 90 tablet 0 Sig: Take 1 tablet by mouth once daily. Take on empty stomach. For Thyroid omeprazole (PRILOSEC) 40 mg capsule 90 capsule 0 Sig: Take 1 capsule by mouth once daily. Marcie Mireles RN November 11, 2024 12:14 PM documented in this encounter [facility] 11-11-2024 Telephone encounter Note The patient has been identified by name and date of : Yes Caregiver verified no other encounters exist for this prescription request: Yes Caregiver confirmed with patient/requestor that no other refills are due, in the near future, with this provider at this time: Yes The last office visit in the department: 10/28/2024 Does the patient have a future office visit with this provider/department: Yes 03/02/2025 Requested Prescriptions Pending Prescriptions Disp Refills busPIRone (BUSPAR) 5 mg tablet 180 tablet 0 Sig: Take 1 tablet by mouth two times a day. levothyroxine (SYNTHROID) 75 mcg tablet 90 tablet 0 Sig: Take 1 tablet by mouth once daily. Take on empty stomach. For Thyroid omeprazole (PRILOSEC) 40 mg capsule 90 capsule 0 Sig: Take 1 capsule by mouth once daily. Marcie Mireles RN November 11, 2024 12:14 PM [facility] 11-11-2024 Telephone encounter Note +trich- flagyl sent. Please notify pt. Ema Abdullahi APRN.CNP [facility] 11-11-2024 Miscellaneous Notes +trich- flagyl sent. Please notify pt. Ema Abdullahi APRN.CNP documented in this encounter [facility] 11-10-2024 Note HNO ID: [id number] Author: EMA ABDULLAHI APRN.CNP Service: ? Author Type: Nurse Practitioner Type: Progress Notes Filed: 11/10/2024 14:33 Note Text: Patient declined wharfinger chief. Maximus is a 49 year old who presents for an annual gynecologic exam with complaints, vaginal itching and vulvar irritation. Just recently started, unsure if it is caused by bodywash. Vaginal discharge- yellow LMP: 11/06/2024 Menses: every 21-30 days lasting 4-6 days Contraception: Tubal Ligation HPV vaccine: No Last Pap: 08/06/2020 normal HPV: 08/02/2020 negative History of abnormal pap: Yes Last mammogram: 09/24/2024 with (LT) breast ultrasound, six month follow up. Sexually active: Yes Patient concerns for STD exposure: No. OB History Gravida1 Para1 Term1 Preterm0 AB0 Living1 SAB0 IAB0 Ectopic0 Multiple0 Live Births0 FAMILY HISTORY Adopted: Yes Problem Relation Age of Onset Cancer Father lung Heart disease Sister No Known Problems Brother No Known Problems Brother other (Liver Disease) Paternal Grandmother Migraines Paternal Grandmother Cancer Paternal Grandfather Lung No Known Problems Son Cancer Paternal Uncle Throat No Ocular Disease No Family History SOCIAL HISTORY Social History Tobacco Use Smoking status: Former Current packs/day: 1.00 Types: Cigarettes Smokeless tobacco: Former Quit date: 04/25/2015 Vaping Use Vaping status: Never Used Substance Use Topics Alcohol use: Yes Comment: less than weekly use Drug use: Never REVIEW OF SYSTEMS Abdomen: No abdominal pain, nausea, vomiting, diarrhea, or constipation. No bloating, early satiety, indigestion, or increased flatulence. Bladder: No gross hematuria, urinary frequency, urinary urgency, or incontinence. +dysuria Breast: No breast lumps, nipple d/c, overlying skin changes, redness or skin retraction. Allergies and current medication updated:Yes SENSITIVE EXAM: The sensitive examination was discussed with the Patient or Patient's Authorized Control Specialist. As applicable, any other physician, advance practice provider, medical student, or other health professional student that will be observing or involved in the sensitive examination for educational or training purposes was discussed with the Patient or Authorized Control Specialist. The Patient or Authorized Control Specialist has agreed to proceed with the sensitive examination. (Sensitive examination includes inspection and/or palpation of the breasts, pelvis, prostate and anorectal regions). EXAM: BP 124/78 Ht 5' 4.173" (1.63m) Wt 211 lb 12.8 oz (96.1kg) LMP 11/06/2024 BMI 36.16 kg/(m2). GENERAL: pleasant, female in no apparent distress HEENT: Normocephalic, atraumatic, mucus membranes moist, and no lesions DERMATOLOGY: Normal, without lesions, non-icteric, and non-hirsute BREAST: soft, non-tender, symmetric, no dominant mass, normal nipple-areolar complex, no lymphadenopathy, and no nipple discharge CHEST: Normal inspiratory effort ABDOMEN: soft, non-tender, and no masses PELVIC: external genitalia normal, normal Bartholin's glands, urethra, [place]'s glands, no vulvar lesions, no cervical lesions, physiologic discharge present, normal appearing perineal body and perianal region BIMANUAL: uterus normal size, shape and consistency, no adnexal masses, and non-tender RECTOVAGINAL: deferred. NEURO: alert and oriented x3,exam grossly non-focal EXTREMITIES: normal ASSESSMENT/PLAN: 1. Encounter for gynecological examination (general) (routine) without abnormal findings - ICD9: V72.31, ICD10: Z01.419 (primary diagnosis) - Completed pap test and breast exam - Encouraged monthly BSE - Follow up for annual exam in one year. - PAP TEST - PARTH SCREENING W LAURA - GONORRHEA/CHLAMYDIA NAAT - BACTERIAL VAGINOSIS NAAT - BRYON/TRICHOMONAS NAAT 2. Vaginal discharge - ICD9: 623.5, ICD10: N89.8 - BACTERIAL VAGINOSIS NAAT - BRYON/TRICHOMONAS NAAT - TRICHOMONAS VAGINALIS NAAT 3. Screening for cervical cancer - ICD9: V76.2, ICD10: Z12.4 - PAP TEST 4. Encounter for screening for human papillomavirus (HPV) - ICD9: V73.81, ICD10: Z11.51 - PAP TEST 5. Screen for STD (sexually transmitted disease) - ICD9: V74.5, ICD10: Z11.3 - GONORRHEA/CHLAMYDIA NAAT - TRICHOMONAS VAGINALIS NAAT 6. Encounter for screening mammogram for breast cancer - ICD9: V76.12, ICD10: Z12.31 - PARTH SCREENING W LAURA 7. Category 3 mammography result with short follow-up interval suggested for probably benign finding - ICD9: 793.82, ICD10: R92.8 - US BREAST LTD LEFT - PARTH DIAGNOSTIC LEFT Will notify patient of test results. Ema Abdullahi APRN.FONDANT COOKER Medical Decision Making: Problems: Low: Acute, uncomplicated illness or injury Data: Unique test(s) ordered: 3+ Risk: Low: Low risk from testing/treatment Medical Decision Making Level: 3 - Low [facility] 11-10-2024 History of Present illness Narrative Patient declined wharfinger chief. Maximus is a 49 year old who presents for an annual gynecologic exam with complaints, vaginal itching and vulvar irritation. Just recently started, unsure if it is caused by bodywash. Vaginal discharge- yellow LMP: 11/06/2024 Menses: every 21-30 days lasting 4-6 days Contraception: Tubal Ligation HPV vaccine: No Last Pap: 08/06/2020 normal HPV: 08/02/2020 negative History of abnormal pap: Yes Last mammogram: 09/24/2024 with (LT) breast ultrasound, six month follow up. Sexually active: Yes Patient concerns for STD exposure: No. OB History Gravida1 Para1 Term1 Preterm0 AB0 Living1 SAB0 IAB0 Ectopic0 Multiple0 Live Births0 FAMILY HISTORY Adopted: Yes Problem Relation Age of Onset Cancer Father lung Heart disease Sister No Known Problems Brother No Known Problems Brother other (Liver Disease) Paternal Grandmother Migraines Paternal Grandmother Cancer Paternal Grandfather Lung No Known Problems Son Cancer Paternal Uncle Throat No Ocular Disease No Family History SOCIAL HISTORY Social History Tobacco Use Smoking status: Former Current packs/day: 1.00 Types: Cigarettes Smokeless tobacco: Former Quit date: 04/25/2015 Vaping Use Vaping status: Never Used Substance Use Topics Alcohol use: Yes Comment: less than weekly use Drug use: Never REVIEW OF SYSTEMS Abdomen: No abdominal pain, nausea, vomiting, diarrhea, or constipation. No bloating, early satiety, indigestion, or increased flatulence. Bladder: No gross hematuria, urinary frequency, urinary urgency, or incontinence. +dysuria Breast: No breast lumps, nipple d/c, overlying skin changes, redness or skin retraction. Allergies and current medication updated:Yes SENSITIVE EXAM: The sensitive examination was discussed with the Patient or Patient's Authorized Control Specialist. As applicable, any other physician, advance practice provider, medical student, or other health professional student that will be observing or involved in the sensitive examination for educational or training purposes was discussed with the Patient or Authorized Control Specialist. The Patient or Authorized Control Specialist has agreed to proceed with the sensitive examination. (Sensitive examination includes inspection and/or palpation of the breasts, pelvis, prostate and anorectal regions). EXAM: BP 124/78 Ht 5' 4.173" (1.63m) Wt 211 lb 12.8 oz (96.1kg) LMP 11/06/2024 BMI 36.16 kg/(m^2). GENERAL: pleasant, female in no apparent distress HEENT: Normocephalic, atraumatic, mucus membranes moist, and no lesions DERMATOLOGY: Normal, without lesions, non-icteric, and non-hirsute BREAST: soft, non-tender, symmetric, no dominant mass, normal nipple-areolar complex, no lymphadenopathy, and no nipple discharge CHEST: Normal inspiratory effort ABDOMEN: soft, non-tender, and no masses PELVIC: external genitalia normal, normal Bartholin's glands, urethra, [place]'s glands, no vulvar lesions, no cervical lesions, physiologic discharge present, normal appearing perineal body and perianal region BIMANUAL: uterus normal size, shape and consistency, no adnexal masses, and non-tender RECTOVAGINAL: deferred. NEURO: alert and oriented x3,exam grossly non-focal EXTREMITIES: normal ASSESSMENT/PLAN: 1. Encounter for gynecological examination (general) (routine) without abnormal findings - ICD9: V72.31, ICD10: Z01.419 (primary diagnosis) - Completed pap test and breast exam - Encouraged monthly BSE - Follow up for annual exam in one year. - PAP TEST - PARTH SCREENING W LAURA - GONORRHEA/CHLAMYDIA NAAT - BACTERIAL VAGINOSIS NAAT - BRYON/TRICHOMONAS NAAT 2. Vaginal discharge - ICD9: 623.5, ICD10: N89.8 - BACTERIAL VAGINOSIS NAAT - BRYON/TRICHOMONAS NAAT - TRICHOMONAS VAGINALIS NAAT 3. Screening for cervical cancer - ICD9: V76.2, ICD10: Z12.4 - PAP TEST 4. Encounter for screening for human papillomavirus (HPV) - ICD9: V73.81, ICD10: Z11.51 - PAP TEST 5. Screen for STD (sexually transmitted disease) - ICD9: V74.5, ICD10: Z11.3 - GONORRHEA/CHLAMYDIA NAAT - TRICHOMONAS VAGINALIS NAAT 6. Encounter for screening mammogram for breast cancer - ICD9: V76.12, ICD10: Z12.31 - PARTH SCREENING W LAURA 7. Category 3 mammography result with short follow-up interval suggested for probably benign finding - ICD9: 793.82, ICD10: R92.8 - US BREAST LTD LEFT - PARTH DIAGNOSTIC LEFT Will notify patient of test results. Ema Abdullahi APRN.CNP Medical Decision Making: Problems: Low: Acute, uncomplicated illness or injury Data: Unique test(s) ordered: 3+ Risk: Low: Low risk from testing/treatment Medical Decision Making Level: 3 - Low documented in this encounter [facility] 11-10-2024 Note HNO ID: [id number] Author: ELLA RILEY APRN.BHARATHI Service: ? Author Type: Nurse Practitioner Type: Progress Notes Filed: 11/10/2024 11:51 Note Text: [facility] Subjective Maximus Bradley is a 49 year old female. Patient presents with: Vaginal Problem: itching and burning x 2 days Patient came in with complaints of burning and pressure. Says it started about 2 days ago. Denies any possibility of STD. Said she was tested 3 years ago and does not want tested again. Patient did not know the last time she had sex. The history is provided by the patient. No professor of geology was used. Vaginal Problem Review of Systems Constitutional: Negative. HENT: Negative. Genitourinary: Positive for dysuria. Objective BP 124/70 Pulse 96 Temp 36.8 ?C (98.2 ?F) Resp 16 Wt 94.7 kg (208 lb 12.4 oz) LMP 10/07/2024 (Approximate) SpO2 99% BMI 33.70 kg/m? Physical Exam Constitutional: Appearance: Normal appearance. Cardiovascular: Rate and Rhythm: Normal rate and regular rhythm. Heart sounds: Normal heart sounds. Pulmonary: Effort: Pulmonary effort is normal. Breath sounds: Normal breath sounds. Abdominal: General: Abdomen is flat. Bowel sounds are normal. Tenderness: There is no abdominal tenderness. There is no right CVA tenderness, left CVA tenderness or guarding. Neurological: Mental Status: She is alert. PAST MEDICAL HISTORY Diagnosis Date Abdominal pain, epigastric Abnormal mammogram 09/14/2016 Acute gastritis without mention of hemorrhage Anxiety Chest pain Class 1 obesity due to excess calories without serious comorbidity with body mass index (BMI) of 34.0 to 34.9 in adult Depression Disability, developmental Enlarged thyroid Gastroesophageal reflux disease with esophagitis without hemorrhage Hypothyroidism Iron deficiency LLQ pain 10/07/2013 Low blood sugar 03/29/2015 Migraines [facility] neurology Obesity Plantar warts Reflux esophagitis Thrombocytosis Urinary retention Pablo Arrington PAST SURGICAL HISTORY Procedure Laterality Date BX OF BREAST; INCISIONAL Left 09/05/2023 COLONOSCOPY 11/28/2021 repeat in 10 years DILATION AND CURETTAGE DXAND/THER NONOBSTETRIC EGD 10/24/2024 EGD W/O BRSH SPEC VARICIES INJ 01/30/2022 ESOPHAGOGASTRODUODENOSCOPY TRANSORAL DIAGNOSTIC 07/04/2005 EGD FNA WITH IMAGING Right 09/26/2016 U/S FNA UOQ right breast LIG/TRNSXJ FLP TUBE ABDL/VAG APPR UNI/BI Tubal ligation ALLERGIES Bee Pollen, Adderall [Dextroamphetamine-Amphetamine], Amphetamine, and Imitrex [Sumatriptan] MEDICATIONS venlafaxine (EFFEXOR) 75 mg tablet Take 1 tablet by mouth three times a day. buPROPion XL (WELLBUTRIN XL) 300 mg 24 hr tablet Take 1 tablet by mouth once daily. topiramate (TOPAMAX) 25 mg capsule Take 2 capsules by mouth two times a day. folic acid 1 mg tablet Take 1 tablet by mouth once daily. VITAMIN D-3 50 mcg (2,000 unit) tablet TAKE 2 TABLETS (4000 UNITS) BY MOUTH ONCE DAILY naratriptan (AMERGE) 2.5 mg tablet Take 1 tablet by mouth as directed. at the onset of headache; if headache returns or does not fully resolve, the dose may be repeated after 4 hours; do not exceed five(5) mg in 24 hours. NO more than 10 doses in a month. famotidine (PEPCID) 20 mg tablet Take 1 tablet by mouth at bedtime as needed. clotrimazole (LOTRIMIN) 1 % cream Apply BID to rash until rash goes away, and then continue for 1 more week. cyanocobalamin (VITAMIN B-12) 1,000 mcg tab TAKE 1 TABLET BY MOUTH DAILY busPIRone (BUSPAR) 5 mg tablet Take 1 tablet by mouth two times a day. levothyroxine (SYNTHROID) 75 mcg tablet Take 1 tablet by mouth once daily. Take on empty stomach. For Thyroid omeprazole (PRILOSEC) 40 mg capsule Take 1 capsule by mouth once daily. loratadine (CLARITIN) 10 mg tablet Take 1 tablet by mouth once daily. albuterol HFA (VENTOLIN HFA) 90 mcg/actuation inhaler Inhale 2 Puffs as instructed every 4 hours as needed for wheezing/shortness of breath. fluticasone (FLONASE) 50 mcg/actuation nasal spray Use 2 Sprays in each nostril once daily. Rinse mouth after use. FAMILY HISTORY Adopted: Yes Problem Relation Age of Onset Cancer Father lung Heart disease Sister No Known Problems Brother No Known Problems Brother other (Liver Disease) Paternal Grandmother Migraines Paternal Grandmother Cancer Paternal Grandfather Lung No Known Problems Son Cancer Paternal Uncle Throat No Ocular Disease No Family History Social History Tobacco Use Smoking status: Former Current packs/day: 1.00 Types: Cigarettes Smokeless tobacco: Former Quit date: 04/25/2015 Vaping Use Vaping status: Never Used Substance Use Topics Alcohol use: Yes Comment: less than weekly use Drug use: Never {ASSESSMENT/PLAN: 1. Vaginal burning - ICD9: 625.8, ICD10: N94.89 - UA DIP, URINE (POC) - BACTERIAL CULTURE, URINE No medication was prescribed at this time. Patient was instructed to ge (more content not included)... [facility] 11-10-2024 History of Present illness Narrative [facility] Subjective Maximus Bradley is a 49 year old female. Patient presents with: Vaginal Problem: itching and burning x 2 days Patient came in with complaints of burning and pressure. Says it started about 2 days ago. Denies any possibility of STD. Said she was tested 3 years ago and does not want tested again. Patient did not know the last time she had sex. The history is provided by the patient. No professor of geology was used. Vaginal Problem Review of Systems Constitutional: Negative. HENT: Negative. Genitourinary: Positive for dysuria. Objective BP 124/70 Pulse 96 Temp 36.8 C (98.2 F) Resp 16 Wt 94.7 kg (208 lb 12.4 oz) LMP 10/07/2024 (Approximate) SpO2 99% BMI 33.70 kg/m Physical Exam Constitutional: Appearance: Normal appearance. Cardiovascular: Rate and Rhythm: Normal rate and regular rhythm. Heart sounds: Normal heart sounds. Pulmonary: Effort: Pulmonary effort is normal. Breath sounds: Normal breath sounds. Abdominal: General: Abdomen is flat. Bowel sounds are normal. Tenderness: There is no abdominal tenderness. There is no right CVA tenderness, left CVA tenderness or guarding. Neurological: Mental Status: She is alert. PAST MEDICAL HISTORY Diagnosis Date Abdominal pain, epigastric Abnormal mammogram 09/14/2016 Acute gastritis without mention of hemorrhage Anxiety Chest pain Class 1 obesity due to excess calories without serious comorbidity with body mass index (BMI) of 34.0 to 34.9 in adult Depression Disability, developmental Enlarged thyroid Gastroesophageal reflux disease with esophagitis without hemorrhage Hypothyroidism Iron deficiency LLQ pain 10/07/2013 Low blood sugar 03/29/2015 Migraines [facility] neurology Obesity Plantar warts Reflux esophagitis Thrombocytosis Urinary retention Pablo Arrington PAST SURGICAL HISTORY Procedure Laterality Date BX OF BREAST; INCISIONAL Left 09/05/2023 COLONOSCOPY 11/28/2021 repeat in 10 years DILATION & CURETTAGE DX&/THER NONOBSTETRIC EGD 10/24/2024 EGD W/O BRSH SPEC VARICIES INJ 01/30/2022 ESOPHAGOGASTRODUODENOSCOPY TRANSORAL DIAGNOSTIC 07/04/2005 EGD FNA WITH IMAGING Right 09/26/2016 U/S FNA UOQ right breast LIG/TRNSXJ FLP TUBE ABDL/VAG APPR UNI/BI Tubal ligation ALLERGIES Bee Pollen, Adderall [Dextroamphetamine-Amphetamine], Amphetamine, and Imitrex [Sumatriptan] MEDICATIONS venlafaxine (EFFEXOR) 75 mg tablet Take 1 tablet by mouth three times a day. buPROPion XL (WELLBUTRIN XL) 300 mg 24 hr tablet Take 1 tablet by mouth once daily. topiramate (TOPAMAX) 25 mg capsule Take 2 capsules by mouth two times a day. folic acid 1 mg tablet Take 1 tablet by mouth once daily. VITAMIN D-3 50 mcg (2,000 unit) tablet TAKE 2 TABLETS (4000 UNITS) BY MOUTH ONCE DAILY naratriptan (AMERGE) 2.5 mg tablet Take 1 tablet by mouth as directed. at the onset of headache; if headache returns or does not fully resolve, the dose may be repeated after 4 hours; do not exceed five(5) mg in 24 hours. NO more than 10 doses in a month. famotidine (PEPCID) 20 mg tablet Take 1 tablet by mouth at bedtime as needed. clotrimazole (LOTRIMIN) 1 % cream Apply BID to rash until rash goes away, and then continue for 1 more week. cyanocobalamin (VITAMIN B-12) 1,000 mcg tab TAKE 1 TABLET BY MOUTH DAILY busPIRone (BUSPAR) 5 mg tablet Take 1 tablet by mouth two times a day. levothyroxine (SYNTHROID) 75 mcg tablet Take 1 tablet by mouth once daily. Take on empty stomach. For Thyroid omeprazole (PRILOSEC) 40 mg capsule Take 1 capsule by mouth once daily. loratadine (CLARITIN) 10 mg tablet Take 1 tablet by mouth once daily. albuterol HFA (VENTOLIN HFA) 90 mcg/actuation inhaler Inhale 2 Puffs as instructed every 4 hours as needed for wheezing/shortness of breath. fluticasone (FLONASE) 50 mcg/actuation nasal spray Use 2 Sprays in each nostril once daily. Rinse mouth after use. FAMILY HISTORY Adopted: Yes Problem Relation Age of Onset Cancer Father lung Heart disease Sister No Known Problems Brother No Known Problems Brother other (Liver Disease) Paternal Grandmother Migraines Paternal Grandmother Cancer Paternal Grandfather Lung No Known Problems Son Cancer Paternal Uncle Throat No Ocular Disease No Family History Social History Tobacco Use Smoking status: Former Current packs/day: 1.00 Types: Cigarettes Smokeless tobacco: Former Quit date: 04/25/2015 Vaping Use Vaping status: Never Used Substance Use Topics Alcohol use: Yes Comment: less than weekly use Drug use: Never {ASSESSMENT/PLAN: 1. Vaginal burning - ICD9: 625.8, ICD10: N94.89 - UA DIP, URINE (POC) - BACTERIAL CULTURE, URINE No medication was prescribed at this time. Patient was instructed to get set up with a RECREATION COORDINATOR. Patient agreeable to care plan. If urine culture does come back positive please prescribe accordingly. Ella Riley APRN.FONDANT COOKER History and Record Review External record(s) reviewed: no prior records. Disposition The patient was discharged. Procedures documented in this encounter [facility] 10-28-2024 Instructions Leny Hsu MD - 10/28/2024 2:54 PM EDT Please start the 75 mg Effexor 3 times per day tomorrow. You will not take 100 mg tablets starting tomorrow. [facility] - Insurance Grief [facility] Grief Recovery Support Groups Visit website for more information and locations: [email or web address] [facility] [address] [place] [address] [facility] [address] [place] [address] [place] [facility] - Insurance Therapy/Counseling Counts Include [address] [facility] [address] [place] [address] [facility] [address] [place] [address] [address] [address] [facility] [address] [place] [address] [facility] [address] [place] [address] Denisse Blair [facility] [address] [place], [place] [address] [facility] [address] [place] [address] [facility] [address] [place] [address] documented in this encounter [facility] 10-28-2024 Note HNO ID: [id number] Author: LENY HSU MD Service: ? Author Type: Physician Type: Progress Notes Filed: 10/29/2024 07:44 Note Text: Chief Complaint Patient presents with: Follow Up: Patient requesting something due to increased anxiety- related to issues with her mom and her passing HPI Maximus Bradley is a 49 year old female who presents here today for Above Complaints.. Patient states that her mother on 10/13 from stroke. Anxiety and depression symptoms have been worse since her passing. Patient has been compliant with her regimen. Is not seeing counseling, though her mother was in Hospice. CRISTINO-7 10/28/2024 CRISTINO-7 All Questions Feeling nervous, anxious, or on edge Nearly Everyday Not being able to stop or control worrying Nearly Everyday Worrying too much about different things Nearly Everyday Trouble relaxing Nearly Everyday Being so restless that it is hard to sit still Several days Becoming easily annoyed or irritable Several days Feeling afraid, as if something awful might happen Several days CRISTINO-7 Score 15 PHQ-9 More data exists 07/27/2016 01/30/2017 02/28/2018 03/25/2019 10/28/2024 PHQ-9 Scores Little interest or pleasure in doing things: Not at all Several days Nearly every day Not at all Several days Feeling down, depressed, or hopeless: Not at all Several days Nearly every day Not at all Nearly every day Trouble falling or staying asleep, or sleeping too much Several days - Nearly every day - More than half the days Feeling tired or having little energy Nearly every day - Nearly every day - More than half the days Poor appetite or overeating Several days - Nearly every day - Nearly every day Feeling bad about yourself - or that you are a failure or have let yourself or your family down Not at all - - - Nearly every day Trouble concentrating on things, such as reading the newspaper or watching television Not at all - Not at all - Nearly every day Moving or speaking so slowly that other people could have noticed. Or the opposite - being so fidgety or restless that you have been moving around a lot more than usual Not at all - Not at all - Several days Thoughts that you would be better off , or of hurting yourself in some way Not at all - - - Not at all PHQ-9 Score 5 - - - 18 Past medical history, appointments, medications, allergies reviewed. Previous Medical History PAST MEDICAL HISTORY Diagnosis Date Abdominal pain, epigastric Abnormal mammogram 09/14/2016 Acute gastritis without mention of hemorrhage Anxiety Chest pain Class 1 obesity due to excess calories without serious comorbidity with body mass index (BMI) of 34.0 to 34.9 in adult Depression Disability, developmental Enlarged thyroid Gastroesophageal reflux disease with esophagitis without hemorrhage Hypothyroidism Iron deficiency LLQ pain 10/07/2013 Low blood sugar 03/29/2015 Migraines [facility] neurology Obesity Plantar warts Reflux esophagitis Thrombocytosis Urinary retention Pablo Arrington Previous Surgical History PAST SURGICAL HISTORY Procedure Laterality Date BX OF BREAST; INCISIONAL Left 09/05/2023 COLONOSCOPY 11/28/2021 repeat in 10 years DILATION AND CURETTAGE DXAND/THER NONOBSTETRIC EGD W/O BRSH SPEC VARICIES INJ 01/30/2022 ESOPHAGOGASTRODUODENOSCOPY TRANSORAL DIAGNOSTIC 07/04/2005 EGD FNA WITH IMAGING Right 09/26/2016 U/S FNA UOQ right breast LIG/TRNSXJ FLP TUBE ABDL/VAG APPR UNI/BI Tubal ligation Family History FAMILY HISTORY Adopted: Yes Problem Relation Age of Onset Cancer Father lung Heart disease Sister No Known Problems Brother No Known Problems Brother other (Liver Disease) Paternal Grandmother Migraines Paternal Grandmother Cancer Paternal Grandfather Lung No Known Problems Son Cancer Paternal Uncle Throat No Ocular Disease No Family History Patient Allergies ALLERGIES Allergen Reactions Bee Pollen Anaphylaxis Adderall [Dextroamp* Itching Amphetamine Itching Imitrex [Sumatripta* Other: See Comments palpitations Current Medications Current Outpatient Medications on File Prior to Visit Medication Sig buPROPion XL (WELLBUTRIN XL) 300 mg 24 hr tablet Take 1 tablet by mouth once daily. topiramate (TOPAMAX) 25 mg capsule Take 2 capsules by mouth two times a day. folic acid 1 mg tablet Take 1 tablet by mouth once daily. VITAMIN D-3 50 mcg (2,000 unit) tablet TAKE 2 TABLETS (4000 UNITS) BY MOUTH ONCE DAILY naratriptan (AMERGE) 2.5 mg tablet Take 1 tablet by mouth as directed. at the onset of headache; if headache returns or does not fully resolve, the dose may be repeated after 4 hours; do not exceed five(5) mg in 24 hours. NO more than 10 doses in a month. famotidine (PEPCID) 20 mg tablet Take 1 tablet by mouth at bedtime as needed. clotrimazole (LOTRIMIN) 1 % cream Apply BID to rash until rash goes away, and then continue for 1 more week. cyanocobalamin (more content not included)... [facility] 10-28-2024 History of Present illness Narrative Chief Complaint Patient presents with: Follow Up: Patient requesting something due to increased anxiety- related to issues with her mom and her passing HPI Maximus Bradley is a 49 year old female who presents here today for Above Complaints.. Patient states that her mother on 10/13 from stroke. Anxiety and depression symptoms have been worse since her passing. Patient has been compliant with her regimen. Is not seeing counseling, though her mother was in Hospice. CRISTINO-7 10/28/2024 CRISTINO-7 All Questions Feeling nervous, anxious, or on edge Nearly Everyday Not being able to stop or control worrying Nearly Everyday Worrying too much about different things Nearly Everyday Trouble relaxing Nearly Everyday Being so restless that it is hard to sit still Several days Becoming easily annoyed or irritable Several days Feeling afraid, as if something awful might happen Several days CRISTINO-7 Score 15 PHQ-9 More data exists 07/27/2016 01/30/2017 02/28/2018 03/25/2019 10/28/2024 PHQ-9 Scores Little interest or pleasure in doing things: Not at all Several days Nearly every day Not at all Several days Feeling down, depressed, or hopeless: Not at all Several days Nearly every day Not at all Nearly every day Trouble falling or staying asleep, or sleeping too much Several days - Nearly every day - More than half the days Feeling tired or having little energy Nearly every day - Nearly every day - More than half the days Poor appetite or overeating Several days - Nearly every day - Nearly every day Feeling bad about yourself - or that you are a failure or have let yourself or your family down Not at all - - - Nearly every day Trouble concentrating on things, such as reading the newspaper or watching television Not at all - Not at all - Nearly every day Moving or speaking so slowly that other people could have noticed. Or the opposite - being so fidgety or restless that you have been moving around a lot more than usual Not at all - Not at all - Several days Thoughts that you would be better off , or of hurting yourself in some way Not at all - - - Not at all PHQ-9 Score 5 - - - 18 Past medical history, appointments, medications, allergies reviewed. Previous Medical History PAST MEDICAL HISTORY Diagnosis Date Abdominal pain, epigastric Abnormal mammogram 09/14/2016 Acute gastritis without mention of hemorrhage Anxiety Chest pain Class 1 obesity due to excess calories without serious comorbidity with body mass index (BMI) of 34.0 to 34.9 in adult Depression Disability, developmental Enlarged thyroid Gastroesophageal reflux disease with esophagitis without hemorrhage Hypothyroidism Iron deficiency LLQ pain 10/07/2013 Low blood sugar 03/29/2015 Migraines [facility] neurology Obesity Plantar warts Reflux esophagitis Thrombocytosis Urinary retention Pablo Arrington Previous Surgical History PAST SURGICAL HISTORY Procedure Laterality Date BX OF BREAST; INCISIONAL Left 09/05/2023 COLONOSCOPY 11/28/2021 repeat in 10 years DILATION & CURETTAGE DX&/THER NONOBSTETRIC EGD W/O BRSH SPEC VARICIES INJ 01/30/2022 ESOPHAGOGASTRODUODENOSCOPY TRANSORAL DIAGNOSTIC 07/04/2005 EGD FNA WITH IMAGING Right 09/26/2016 U/S FNA UOQ right breast LIG/TRNSXJ FLP TUBE ABDL/VAG APPR UNI/BI Tubal ligation Family History FAMILY HISTORY Adopted: Yes Problem Relation Age of Onset Cancer Father lung Heart disease Sister No Known Problems Brother No Known Problems Brother other (Liver Disease) Paternal Grandmother Migraines Paternal Grandmother Cancer Paternal Grandfather Lung No Known Problems Son Cancer Paternal Uncle Throat No Ocular Disease No Family History Patient Allergies ALLERGIES Allergen Reactions Bee Pollen Anaphylaxis Adderall [Dextroamp* Itching Amphetamine Itching Imitrex [Sumatripta* Other: See Comments palpitations Current Medications Current Outpatient Medications on File Prior to Visit Medication Sig buPROPion XL (WELLBUTRIN XL) 300 mg 24 hr tablet Take 1 tablet by mouth once daily. topiramate (TOPAMAX) 25 mg capsule Take 2 capsules by mouth two times a day. folic acid 1 mg tablet Take 1 tablet by mouth once daily. VITAMIN D-3 50 mcg (2,000 unit) tablet TAKE 2 TABLETS (4000 UNITS) BY MOUTH ONCE DAILY naratriptan (AMERGE) 2.5 mg tablet Take 1 tablet by mouth as directed. at the onset of headache; if headache returns or does not fully resolve, the dose may be repeated after 4 hours; do not exceed five(5) mg in 24 hours. NO more than 10 doses in a month. famotidine (PEPCID) 20 mg tablet Take 1 tablet by mouth at bedtime as needed. clotrimazole (LOTRIMIN) 1 % cream Apply BID to rash until rash goes away, and then continue for 1 more week. cyanocobalamin (VITAMIN B-12) 1,000 mcg tab TAKE 1 TABLET BY MOUTH DAILY busPIRone (BUSPAR) 5 mg tablet Take 1 tablet by mouth two times a day. levothyroxine (SYNTHROID) 75 mcg tablet Take 1 tablet by mouth once daily. Take on empty stomach. For Thyroid omeprazole (PRILOSEC) 40 mg capsule Take 1 capsule by mouth once daily. loratadine (CLARITIN) 10 mg tablet Take 1 tablet by mouth once daily. albuterol HFA (VENTOLIN HFA) 90 mcg/actuation inhaler Inhale 2 Puffs as instructed every 4 hours as needed for wheezing/shortness of breath. venlafaxine (EFFEXOR) 100 mg tablet Take 1 tablet by mouth two times a day. fluticasone (FLONASE) 50 mcg/actuation nasal spray Use 2 Sprays in each nostril once daily. Rinse mouth after use. No current facility-administered medications on file prior to visit. Social History Social History Tobacco Use Smoking status: Former Current packs/day: 1.00 Types: Cigarettes Smokeless tobacco: Former Quit date: 04/25/2015 Vaping Use Vaping status: Never Used Substance Use Topics Alcohol use: Yes Comment: less than weekly use Drug use: Never Review of Symptoms REVIEW OF SYSTEMS See HPI EXAM: BP 118/64 Pulse 85 Resp 16 Wt 95.6 kg (210 lb 12.8 oz) LMP 10/07/2024 (Approximate) SpO2 98% BMI 34.02 kg/m General Appearance: Well appearing, alert, in no acute distress, well-hydrated, well nourished.. PSYCH: Posture and motor behavior: sitting slumped in the chair Dress, grooming, personal hygiene: normal dress and grooming Facial expression: good eye contact Speech: mumbles Mood: sad Coherency and relevance of thought: normal thought processes Memory: normal memory Health Maintenance List Anxiety Screening Never done Hepatitis B Vaccine(1 of 3 - 19+ 3-dose series) due on 01/13/2025 Covid-19 Vaccine( season) due on 09/02/2025 Cervical Cancer Screening due on 07/28/2025 Mammogram Screening due on 09/24/2025 Annual PCP Team Chronic Disease Visit due on 10/28/2025 BP Controlled (<130/80) due on 10/28/2025 Diabetes Screening due on 08/06/2027 Lipid Screening due on 02/03/2029 DTaP,Tdap,Td Vaccine(2 - Td or Tdap) due on 10/01/2029 Colorectal Cancer Screening due on 11/29/2031 Influenza Vaccine Completed Hepatitis C Screening Completed HIV Screening Completed ASSESSMENT/PLAN: 1. Grief - ICD9: 309.0, ICD10: F43.21 (primary diagnosis) Patient with worsening anxiety and depression since her mother passed. I offered my condolences and will increase her dose of Effexor to maximum. Given information for grief counseling and recommended she reach out to hospice. Will recheck symptoms in 1 month. 2. Moderate episode of recurrent major depressive disorder (HCC) - ICD9: 296.32, ICD10: F33.1 See above. Denies SI/HI prior to discharge. - VENLAFAXINE 75 MG TABLET 3. CRISTINO (generalized anxiety disorder) - ICD9: 300.02, ICD10: F41.1 See above. - VENLAFAXINE 75 MG TABLET Leny Hsu MD documented in this encounter [facility] 10-27-2024 Telephone encounter Note Pt scheduled with Dr Hsu tomorrow at 220. [facility] 10-27-2024 Miscellaneous Notes Pt scheduled with Dr Hsu tomorrow at 220. Recommend OV to discuss. Patient calling asking if she could have her depression medication dose increased? Patient asking if she would need an appt first? Patient said her mother on October 13. Patient said she is taking Venlafaxine 100 mg one tablet twice daily. Please advise documented in this encounter [facility] 10-27-2024 Telephone encounter Note Recommend OV to discuss. [facility] 10-27-2024 Telephone encounter Note Patient calling asking if she could have her depression medication dose increased? Patient asking if she would need an appt first? Patient said her mother on October 13. Patient said she is taking Venlafaxine 100 mg one tablet twice daily. Please advise [facility] 10-24-2024 Note Formatting of this n ote might be different from the original. The patient received a copy of EGD discharge instructions that contain information for how to contact the physician who performed the procedure and when to seek medical care. [facility] 10-24-2024 Miscellaneous Notes The patient received a copy of EGD discharge instructions that contain information for how to contact the physician who performed the procedure and when to seek medical care. documented in this encounter [facility] 10-24-2024 History and physical note HISTORY AND PHYSICAL Maximus N Kirk 1975 REFERRING PHYSICIAN: Jordin Dickerson MD CHIEF COMPLAINT: Follow Up (6 month follow up mamm) HPI: The patient is a 49 year old female referred for endoscopy. Maximus notes no history of colon complaints. The patient notes the following upper complaints: Maximus denies abdominal pain.. Maximus notes heartburn. Maximus denies dysphagia. Maximus denies a history of ulcers/ peptic ulcer disease. Maximus has undergone prior endoscopy. 2021 The patient is being seen by me today at the request of Dr. Dickerson for my opinion and advice regarding Hiatal hernia (primary encounter diagnosis) Gastroesophageal reflux disease, unspecified whether esophagitis present. PAST MEDICAL HISTORY PAST MEDICAL HISTORY Diagnosis Date Abdominal pain, epigastric Abnormal mammogram 09/14/2016 Acute gastritis without mention of hemorrhage Anxiety Chest pain Class 1 obesity due to excess calories without serious comorbidity with body mass index (BMI) of 34.0 to 34.9 in adult Depression Disability, developmental Enlarged thyroid Gastroesophageal reflux disease with esophagitis without hemorrhage Hypothyroidism Iron deficiency LLQ pain 10/07/2013 Low blood sugar 03/29/2015 Migraines [facility] neurology Obesity Plantar warts Reflux esophagitis Thrombocytosis Urinary retention Pablo Arrington PAST SURGICAL HISTORY PAST SURGICAL HISTORY Procedure Laterality Date BX OF BREAST; INCISIONAL Left 09/05/2023 COLONOSCOPY 11/28/2021 repeat in 10 years DILATION & CURETTAGE DX&/THER NONOBSTETRIC EGD W/O BRSH SPEC VARICIES INJ 01/30/2022 ESOPHAGOGASTRODUODENOSCOPY TRANSORAL DIAGNOSTIC 07/04/2005 EGD FNA WITH IMAGING Right 09/26/2016 U/S FNA UOQ right breast LIG/TRNSXJ FLP TUBE ABDL/VAG APPR UNI/BI Tubal ligation CURRENT MEDICATIONS Current Outpatient Medications Medication Sig VITAMIN D-3 50 mcg (2,000 unit) tablet TAKE 2 TABLETS (4000 UNITS) BY MOUTH ONCE DAILY naratriptan (AMERGE) 2.5 mg tablet Take 1 tablet by mouth as directed. at the onset of headache; if headache returns or does not fully resolve, the dose may be repeated after 4 hours; do not exceed five(5) mg in 24 hours. NO more than 10 doses in a month. famotidine (PEPCID) 20 mg tablet Take 1 tablet by mouth at bedtime as needed. clotrimazole (LOTRIMIN) 1 % cream Apply BID to rash until rash goes away, and then continue for 1 more week. cyanocobalamin (VITAMIN B-12) 1,000 mcg tab TAKE 1 TABLET BY MOUTH DAILY busPIRone (BUSPAR) 5 mg tablet Take 1 tablet by mouth two times a day. levothyroxine (SYNTHROID) 75 mcg tablet Take 1 tablet by mouth once daily. Take on empty stomach. For Thyroid omeprazole (PRILOSEC) 40 mg capsule Take 1 capsule by mouth once daily. buPROPion XL (WELLBUTRIN XL) 300 mg 24 hr tablet Take 1 tablet by mouth once daily. loratadine (CLARITIN) 10 mg tablet Take 1 tablet by mouth once daily. albuterol HFA (VENTOLIN HFA) 90 mcg/actuation inhaler Inhale 2 Puffs as instructed every 4 hours as needed for wheezing/shortness of breath. venlafaxine (EFFEXOR) 100 mg tablet Take 1 tablet by mouth two times a day. folic acid 1 mg tablet Take 1 tablet by mouth once daily. topiramate (TOPAMAX) 25 mg capsule Take 2 capsules by mouth two times a day. fluticasone (FLONASE) 50 mcg/actuation nasal spray Use 2 Sprays in each nostril once daily. Rinse mouth after use. No current facility-administered medications for this visit. ALLERGIES: Bee Pollen, Adderall [Dextroamphetamine-Amphetamine], Amphetamine, and Imitrex [Sumatriptan] PERSONAL HISTORY: SOCIAL HISTORY Social History Tobacco Use Smoking status: Former Current packs/day: 1.00 Types: Cigarettes Smokeless tobacco: Former Quit date: 04/25/2015 Vaping Use Vaping status: Never Used Substance Use Topics Alcohol use: Yes Comment: less than weekly use Drug use: Never FAMILY HISTORY: FAMILY HISTORY FAMILY HISTORY Adopted: Yes Problem Relation Age of Onset Cancer Father lung Heart disease Sister No Known Problems Brother No Known Problems Brother other (Liver Disease) Paternal Grandmother Migraines Paternal Grandmother Cancer Paternal Grandfather Lung No Known Problems Son Cancer Paternal Uncle Throat No Ocular Disease No Family History REVIEW OF SYMPTOMS: The review of systems data was entered by the nurse and reviewed by me There are no exam notes on file for this visit. PHYSICAL EXAMINATION: General: The patient is 49 year old female, well nourished, well hydrated in no acute distress. The patient is oriented to time, place, and person. VITALS: Last menstrual period 11/29/2023. There is no height or weight on file to calculate BMI. HEENT: Normal cephalic, ataumatic, pupils are equally round, sclera are anicteric, mucous membranes are moist, oropharynx is clear. Neck has no masses, asymmetry or lymphadenopathy. Thyroid is unremarkable. Respiratory: Clear to auscultation and percussion. Normal respiratory excursion and pattern. Cardiac: Examination is regular rate and rhythm. Abdominal exam: Soft, nontender, with no palpable masses. No hepatosplenomegaly. No palpable hernias. Rectal exam: exam deferred Extremities: no clubbing, cyanosis or edema. No adenopathy. Other: Normal pendulous breast bilaterally no hard palpable lesions are identified axillary exam is negative bilaterally. Supraclavicular exam is negative bilaterally LABORATORY VALUES: As Noted RADIOLOGIC STUDIES: As Noted Assessment IMPRESSION: Hiatal hernia (primary encounter diagnosis) Gastroesophageal reflux disease, unspecified whether esophagitis present PLAN: I plan to perform upper endoscopy. We discussed the risks and benefits of the planned endoscopy. I have informed the patient that complications can occur including failure to complete the endoscopy and perforation. The patient had the opportunity to ask questions concerning the planned endoscopy. My staff has also explained the procedure to the patient in understandable terms and has given the patient printed material concerning the procedure. The patient freely consents to surgery. With regards to the ultrasound of the left breast these are all benign in nature and a 6-month follow-up mammogram and ultrasound is recommended. Diagnoses: (K44.9) Hiatal hernia (primary encounter diagnosis) (K21.9) Gastroesophageal reflux disease, unspecified whether esophagitis present My findings have been communicated to Dr. Dickerson via shared medical record. This note will be forwarded to Dr. Leny Hsu MD. Return to Clinic: The patient is instructed to follow-up with me 1 week post operatively. Kirk Cast III, MD UPDATED HISTORY AND PHYSICAL EXAMINATION SERVICE DATE: 10/24/2024 SERVICE TIME: 11:22 AM PHYSICAL EXAM MUST BE COMPLETED ON ADMISSION The History and Physical (completed in the past 30 days) has been reviewed and the patient has been examined. The contents accurately reflect the patient's condition with the following additions or revisions since the H&P was completed. Examination indicates no changes. This H&P can be found in the attached. SIGNATURE: Kirk Cast III, MD PATIENT NAME: Maximus Bradley DATE: October 24, 2024 TIME: 11:22 AM T [facility] 10-24-2024 History and physical note HISTORY AND PHYSICAL Maximus Vang Kirk 1975 REFERRING PHYSICIAN: Jordin Dickerson MD CHIEF COMPLAINT: Follow Up (6 month follow up mamm) HPI: The patient is a 49 year old female referred for endoscopy. Maximus notes no history of colon complaints. The patient notes the following upper complaints: Maximus denies abdominal pain.. Maximus notes heartburn. Maximus denies dysphagia. Maximus denies a history of ulcers/ peptic ulcer disease. Maximus has undergone prior endoscopy. 2021 The patient is being seen by me today at the request of Dr. Dickerson for my opinion and advice regarding Hiatal hernia (primary encounter diagnosis) Gastroesophageal reflux disease, unspecified whether esophagitis present. PAST MEDICAL HISTORY PAST MEDICAL HISTORY Diagnosis Date Abdominal pain, epigastric Abnormal mammogram 09/14/2016 Acute gastritis without mention of hemorrhage Anxiety Chest pain Class 1 obesity due to excess calories without serious comorbidity with body mass index (BMI) of 34.0 to 34.9 in adult Depression Disability, developmental Enlarged thyroid Gastroesophageal reflux disease with esophagitis without hemorrhage Hypothyroidism Iron deficiency LLQ pain 10/07/2013 Low blood sugar 03/29/2015 Migraines [facility] neurology Obesity Plantar warts Reflux esophagitis Thrombocytosis Urinary retention Pablo Arrington PAST SURGICAL HISTORY PAST SURGICAL HISTORY Procedure Laterality Date BX OF BREAST; INCISIONAL Left 09/05/2023 COLONOSCOPY 11/28/2021 repeat in 10 years DILATION & CURETTAGE DX&/THER NONOBSTETRIC EGD W/O [facility] SPEC VARICIES INJ 01/30/2022 ESOPHAGOGASTRODUODENOSCOPY TRANSORAL DIAGNOSTIC 07/04/2005 EGD FNA WITH IMAGING Right 09/26/2016 U/S FNA UOQ right breast LIG/TRNSXJ FLP TUBE ABDL/VAG APPR UNI/BI Tubal ligation CURRENT MEDICATIONS Current Outpatient Medications Medication Sig VITAMIN D-3 50 mcg (2,000 unit) tablet TAKE 2 TABLETS (4000 UNITS) BY MOUTH ONCE DAILY naratriptan (AMERGE) 2.5 mg tablet Take 1 tablet by mouth as directed. at the onset of headache; if headache returns or does not fully resolve, the dose may be repeated after 4 hours; do not exceed five(5) mg in 24 hours. NO more than 10 doses in a month. famotidine (PEPCID) 20 mg tablet Take 1 tablet by mouth at bedtime as needed. clotrimazole (LOTRIMIN) 1 % cream Apply BID to rash until rash goes away, and then continue for 1 more week. cyanocobalamin (VITAMIN B-12) 1,000 mcg tab TAKE 1 TABLET BY MOUTH DAILY busPIRone (BUSPAR) 5 mg tablet Take 1 tablet by mouth two times a day. levothyroxine (SYNTHROID) 75 mcg tablet Take 1 tablet by mouth once daily. Take on empty stomach. For Thyroid omeprazole (PRILOSEC) 40 mg capsule Take 1 capsule by mouth once daily. buPROPion XL (WELLBUTRIN XL) 300 mg 24 hr tablet Take 1 tablet by mouth once daily. loratadine (CLARITIN) 10 mg tablet Take 1 tablet by mouth once daily. albuterol HFA (VENTOLIN HFA) 90 mcg/actuation inhaler Inhale 2 Puffs as instructed every 4 hours as needed for wheezing/shortness of breath. venlafaxine (EFFEXOR) 100 mg tablet Take 1 tablet by mouth two times a day. folic acid 1 mg tablet Take 1 tablet by mouth once daily. topiramate (TOPAMAX) 25 mg capsule Take 2 capsules by mouth two times a day. fluticasone (FLONASE) 50 mcg/actuation nasal spray Use 2 Sprays in each nostril once daily. Rinse mouth after use. No current facility-administered medications for this visit. ALLERGIES: Bee Pollen, Adderall [Dextroamphetamine-Amphetamine], Amphetamine, and Imitrex [Sumatriptan] PERSONAL HISTORY: SOCIAL HISTORY Social History Tobacco Use Smoking status: Former Current packs/day: 1.00 Types: Cigarettes Smokeless tobacco: Former Quit date: 04/25/2015 Vaping Use Vaping status: Never Used Substance Use Topics Alcohol use: Yes Comment: less than weekly use Drug use: Never FAMILY HISTORY: FAMILY HISTORY FAMILY HISTORY Adopted: Yes Problem Relation Age of Onset Cancer Father lung Heart disease Sister No Known Problems Brother No Known Problems Brother other (Liver Disease) Paternal Grandmother Migraines Paternal Grandmother Cancer Paternal Grandfather Lung No Known Problems Son Cancer Paternal Uncle Throat No Ocular Disease No Family History REVIEW OF SYMPTOMS: The review of systems data was entered by the nurse and reviewed by me There are no exam notes on file for this visit. PHYSICAL EXAMINATION: General: The patient is 49 year old female, well nourished, well hydrated in no acute distress. The patient is oriented to time, place, and person. VITALS: Last menstrual period 11/29/2023. There is no height or weight on file to calculate BMI. HEENT: Normal cephalic, ataumatic, pupils are equally round, sclera are anicteric, mucous membranes are moist, oropharynx is clear. Neck has no masses, asymmetry or lymphadenopathy. Thyroid is unremarkable. Respiratory: Clear to auscultation and percussion. Normal respiratory excursion and pattern. Cardiac: Examination is regular rate and rhythm. Abdominal exam: Soft, nontender, with no palpable masses. No hepatosplenomegaly. No palpable hernias. Rectal exam: exam deferred Extremities: no clubbing, cyanosis or edema. No adenopathy. Other: Normal pendulous breast bilaterally no hard palpable lesions are identified axillary exam is negative bilaterally. Supraclavicular exam is negative bilaterally LABORATORY VALUES: As Noted RADIOLOGIC STUDIES: As Noted Assessment IMPRESSION: Hiatal hernia (primary encounter diagnosis) Gastroesophageal reflux disease, unspecified whether esophagitis present PLAN: I plan to perform upper endoscopy. We discussed the risks and benefits of the planned endoscopy. I have informed the patient that complications can occur including failure to complete the endoscopy and perforation. The patient had the opportunity to ask questions concerning the planned endoscopy. My staff has also explained the procedure to the patient in understandable terms and has given the patient printed material concerning the procedure. The patient freely consents to surgery. With regards to the ultrasound of the left breast these are all benign in nature and a 6-month follow-up mammogram and ultrasound is recommended. Diagnoses: (K44.9) Hiatal hernia (primary encounter diagnosis) (K21.9) Gastroesophageal reflux disease, unspecified whether esophagitis present My findings have been communicated to Dr. Dickerson via shared medical record. This note will be forwarded to Dr. Leny Hsu MD. Return to Clinic: The patient is instructed to follow-up with me 1 week post operatively. Kirk Cast III, MD UPDATED HISTORY AND PHYSICAL EXAMINATION SERVICE DATE: 10/24/2024 SERVICE TIME: 11:22 AM PHYSICAL EXAM MUST BE COMPLETED ON ADMISSION The History and Physical (completed in the past 30 days) has been reviewed and the patient has been examined. The contents accurately reflect the patient's condition with the following additions or revisions since the H&P was completed. Examination indicates no changes. This H&P can be found in the attached. SIGNATURE: Kirk Cast III, MD PATIENT NAME: Maximus Bradley DATE: October 24, 2024 TIME: 11:22 AM documented in this encounter [facility] 10-22-2024 Telephone encounter Note See Dr. Hsu phone note for 10/20 regarding social work response to social work consult. [facility] 10-22-[address] Hsu phone note for 10/20 regarding social work response to social work consult. documented in this encounter [facility] 10-16-2024 Telephone encounter Note Electronic PA rec'd and completed for [employer]. This was approved. Prior authorization approved Payer: [facility] Note from payer: Your PA request for [id number] was approved for 365 days. The PA# assigned is [id number]. Approval Details Authorization number: [id number] Authorized from October 16, 2024 to October 15, 2025 Electronic appeal: Not supported View History Medication Being Authorized topiramate (TOPAMAX) 25 mg capsule Take 2 capsules by mouth two times a day. Dispense: 360 capsule Refills: 1 Start: 10/16/2024 End: 04/14/2025 Class: Normal Diagnoses: Migraine without aura and without status migrainosus, not intractable This order has been released to its destination. To be filled at: [facility] [address] [place] [address] - [address] [phone] [facility] 10-16-2024 Miscellaneous Notes Electronic PA rec'd and completed for topamax. This was approved. Prior authorization approved Payer: [facility] Note from payer: Your PA request for [id number] was approved for 365 days. The PA# assigned is [id number]. Approval Details Authorization number: [id number] Authorized from October 16, 2024 to October 15, 2025 Electronic appeal: Not supported View History Medication Being Authorized topiramate (TOPAMAX) 25 mg capsule Take 2 capsules by mouth two times a day. Dispense: 360 capsule Refills: 1 Start: 10/16/2024 End: 04/14/2025 Class: Normal Diagnoses: Migraine without aura and without status migrainosus, not intractable This order has been released to its destination. To be filled at: [facility] - [address] [place] [address] - [address] [phone] documented in this encounter [facility] 10-16-2024 Telephone encounter Note The patient has been identified by name and date of : Yes, pharmacy Caregiver verified no other encounters exist for this prescription request: Yes Caregiver confirmed with patient/requestor that no other refills are due, in the near future, with this provider at this time: Yes The last office visit in the department: 09/02/2024 Does the patient have a future office visit with this provider/department: Yes 03/02/2025 Requested Prescriptions Pending Prescriptions Disp Refills buPROPion XL (WELLBUTRIN XL) 300 mg 24 hr tablet 90 tablet 0 Sig: Take 1 tablet by mouth once daily. topiramate (TOPAMAX) 25 mg capsule 360 capsule 1 Sig: Take 2 capsules by mouth two times a day. folic acid 1 mg tablet 90 tablet 1 Sig: Take 1 tablet by mouth once daily. Tamica Gamez LPN October 16, 2024 1:34 PM [facility] 10-16-2024 Miscellaneous Notes The patient has been identified by name and date of : Yes, pharmacy Caregiver verified no other encounters exist for this prescription request: Yes Caregiver confirmed with patient/requestor that no other refills are due, in the near future, with this provider at this time: Yes The last office visit in the department: 09/02/2024 Does the patient have a future office visit with this provider/department: Yes 03/02/2025 Requested Prescriptions Pending Prescriptions Disp Refills buPROPion XL (WELLBUTRIN XL) 300 mg 24 hr tablet 90 tablet 0 Sig: Take 1 tablet by mouth once daily. topiramate (TOPAMAX) 25 mg capsule 360 capsule 1 Sig: Take 2 capsules by mouth two times a day. folic acid 1 mg tablet 90 tablet 1 Sig: Take 1 tablet by mouth once daily. Tamica Gamez LPN October 16, 2024 1:34 PM documented in this encounter [facility] 09-29-2024 Note HNO ID: [id number] Author: KIRK CAST MD Service: ? Author Type: Physician Type: Progress Notes Filed: 09/29/2024 14:40 Note Text: HISTORY AND PHYSICAL Maximus Bradley 1975 REFERRING PHYSICIAN: Jordin Dickerson MD CHIEF COMPLAINT: Follow Up (6 month follow up mamm) HPI: The patient is a 49 year old female referred for endoscopy. Maximus notes no history of colon complaints. The patient notes the following upper complaints: Maximus denies abdominal pain.. Maximus notes heartburn. Maximus denies dysphagia. Maximus denies a history of ulcers/ peptic ulcer disease. Maximus has undergone prior endoscopy. 2021 The patient is being seen by me today at the request of Dr. Dickerson for my opinion and advice regarding Hiatal hernia (primary encounter diagnosis) Gastroesophageal reflux disease, unspecified whether esophagitis present. PAST MEDICAL HISTORY Diagnosis Date Abdominal pain, epigastric Abnormal mammogram 09/14/2016 Acute gastritis without mention of hemorrhage Anxiety Chest pain Class 1 obesity due to excess calories without serious comorbidity with body mass index (BMI) of 34.0 to 34.9 in adult Depression Disability, developmental Enlarged thyroid Gastroesophageal reflux disease with esophagitis without hemorrhage Hypothyroidism Iron deficiency LLQ pain 10/07/2013 Low blood sugar 03/29/2015 Migraines [facility] neurology Obesity Plantar warts Reflux esophagitis Thrombocytosis Urinary retention Pablo Arrington PAST SURGICAL HISTORY Procedure Laterality Date BX OF BREAST; INCISIONAL Left 09/05/2023 COLONOSCOPY 11/28/2021 repeat in 10 years DILATION AND CURETTAGE DXAND/THER NONOBSTETRIC EGD W/O BRSH SPEC VARICIES INJ 01/30/2022 ESOPHAGOGASTRODUODENOSCOPY TRANSORAL DIAGNOSTIC 07/04/2005 EGD FNA WITH IMAGING Right 09/26/2016 U/S FNA UOQ right breast LIG/TRNSXJ FLP TUBE ABDL/VAG APPR UNI/BI Tubal ligation Current Outpatient Medications Medication Sig VITAMIN D-3 50 mcg (2,000 unit) tablet TAKE 2 TABLETS (4000 UNITS) BY MOUTH ONCE DAILY naratriptan (AMERGE) 2.5 mg tablet Take 1 tablet by mouth as directed. at the onset of headache; if headache returns or does not fully resolve, the dose may be repeated after 4 hours; do not exceed five(5) mg in 24 hours. NO more than 10 doses in a month. famotidine (PEPCID) 20 mg tablet Take 1 tablet by mouth at bedtime as needed. clotrimazole (LOTRIMIN) 1 % cream Apply BID to rash until rash goes away, and then continue for 1 more week. cyanocobalamin (VITAMIN B-12) 1,000 mcg tab TAKE 1 TABLET BY MOUTH DAILY busPIRone (BUSPAR) 5 mg tablet Take 1 tablet by mouth two times a day. levothyroxine (SYNTHROID) 75 mcg tablet Take 1 tablet by mouth once daily. Take on empty stomach. For Thyroid omeprazole (PRILOSEC) 40 mg capsule Take 1 capsule by mouth once daily. buPROPion XL (WELLBUTRIN XL) 300 mg 24 hr tablet Take 1 tablet by mouth once daily. loratadine (CLARITIN) 10 mg tablet Take 1 tablet by mouth once daily. albuterol HFA (VENTOLIN HFA) 90 mcg/actuation inhaler Inhale 2 Puffs as instructed every 4 hours as needed for wheezing/shortness of breath. venlafaxine (EFFEXOR) 100 mg tablet Take 1 tablet by mouth two times a day. folic acid 1 mg tablet Take 1 tablet by mouth once daily. topiramate (TOPAMAX) 25 mg capsule Take 2 capsules by mouth two times a day. fluticasone (FLONASE) 50 mcg/actuation nasal spray Use 2 Sprays in each nostril once daily. Rinse mouth after use. No current facility-administered medications for this visit. ALLERGIES: Bee Pollen, Adderall [Dextroamphetamine-Amphetamine], Amphetamine, and Imitrex [Sumatriptan] PERSONAL HISTORY: Social History Tobacco Use Smoking status: Former Current packs/day: 1.00 Types: Cigarettes Smokeless tobacco: Former Quit date: 04/25/2015 Vaping Use Vaping status: Never Used Substance Use Topics Alcohol use: Yes Comment: less than weekly use Drug use: Never FAMILY HISTORY: FAMILY HISTORY Adopted: Yes Problem Relation Age of Onset Cancer Father lung Heart disease Sister No Known Problems Brother No Known Problems Brother other (Liver Disease) Paternal Grandmother Migraines Paternal Grandmother Cancer Paternal Grandfather Lung No Known Problems Son Cancer Paternal Uncle Throat No Ocular Disease No Family History REVIEW OF SYMPTOMS: The review of systems data was entered by the nurse and reviewed by me There are no exam notes on file for this visit. PHYSICAL EXAMINATION: General: The patient is 49 year old female, well nourished, well hydrated in no acute distress. The patient is oriented to time, place, and person. VITALS: Last menstrual period 11/29/2023. There is no height or weight on file to calculate BMI. HEENT: Normal cephalic, ataumatic, pupils are equally round, sclera are anicteric, mucous membranes are moist, oropharynx is clear. Neck has no masses, asymmetry or lymph (more content not included)... [facility] 09-29-2024 History of Present illness Narrative HISTORY AND PHYSICAL Maximus Bradley 1975 REFERRING PHYSICIAN: Jordin Dickerson MD CHIEF COMPLAINT: Follow Up (6 month follow up mamm) HPI: The patient is a 49 year old female referred for endoscopy. Maximus notes no history of colon complaints. The patient notes the following upper complaints: Maximus denies abdominal pain.. Maximus notes heartburn. Maximus denies dysphagia. Maximus denies a history of ulcers/ peptic ulcer disease. Maximus has undergone prior endoscopy. 2021 The patient is being seen by me today at the request of Dr. Dickerson for my opinion and advice regarding Hiatal hernia (primary encounter diagnosis) Gastroesophageal reflux disease, unspecified whether esophagitis present. PAST MEDICAL HISTORY Diagnosis Date Abdominal pain, epigastric Abnormal mammogram 09/14/2016 Acute gastritis without mention of hemorrhage Anxiety Chest pain Class 1 obesity due to excess calories without serious comorbidity with body mass index (BMI) of 34.0 to 34.9 in adult Depression Disability, developmental Enlarged thyroid Gastroesophageal reflux disease with esophagitis without hemorrhage Hypothyroidism Iron deficiency LLQ pain 10/07/2013 Low blood sugar 03/29/2015 Migraines [facility] neurology Obesity Plantar warts Reflux esophagitis Thrombocytosis Urinary retention Pablo Arrington PAST SURGICAL HISTORY Procedure Laterality Date BX OF BREAST; INCISIONAL Left 09/05/2023 COLONOSCOPY 11/28/2021 repeat in 10 years DILATION & CURETTAGE DX&/THER NONOBSTETRIC EGD W/O BRSH SPEC VARICIES INJ 01/30/2022 ESOPHAGOGASTRODUODENOSCOPY TRANSORAL DIAGNOSTIC 07/04/2005 EGD FNA WITH IMAGING Right 09/26/2016 U/S FNA UOQ right breast LIG/TRNSXJ FLP TUBE ABDL/VAG APPR UNI/BI Tubal ligation Current Outpatient Medications Medication Sig VITAMIN D-3 50 mcg (2,000 unit) tablet TAKE 2 TABLETS (4000 UNITS) BY MOUTH ONCE DAILY naratriptan (AMERGE) 2.5 mg tablet Take 1 tablet by mouth as directed. at the onset of headache; if headache returns or does not fully resolve, the dose may be repeated after 4 hours; do not exceed five(5) mg in 24 hours. NO more than 10 doses in a month. famotidine (PEPCID) 20 mg tablet Take 1 tablet by mouth at bedtime as needed. clotrimazole (LOTRIMIN) 1 % cream Apply BID to rash until rash goes away, and then continue for 1 more week. cyanocobalamin (VITAMIN B-12) 1,000 mcg tab TAKE 1 TABLET BY MOUTH DAILY busPIRone (BUSPAR) 5 mg tablet Take 1 tablet by mouth two times a day. levothyroxine (SYNTHROID) 75 mcg tablet Take 1 tablet by mouth once daily. Take on empty stomach. For Thyroid omeprazole (PRILOSEC) 40 mg capsule Take 1 capsule by mouth once daily. buPROPion XL (WELLBUTRIN XL) 300 mg 24 hr tablet Take 1 tablet by mouth once daily. loratadine (CLARITIN) 10 mg tablet Take 1 tablet by mouth once daily. albuterol HFA (VENTOLIN HFA) 90 mcg/actuation inhaler Inhale 2 Puffs as instructed every 4 hours as needed for wheezing/shortness of breath. venlafaxine (EFFEXOR) 100 mg tablet Take 1 tablet by mouth two times a day. folic acid 1 mg tablet Take 1 tablet by mouth once daily. topiramate (TOPAMAX) 25 mg capsule Take 2 capsules by mouth two times a day. fluticasone (FLONASE) 50 mcg/actuation nasal spray Use 2 Sprays in each nostril once daily. Rinse mouth after use. No current facility-administered medications for this visit. ALLERGIES: Bee Pollen, Adderall [Dextroamphetamine-Amphetamine], Amphetamine, and Imitrex [Sumatriptan] PERSONAL HISTORY: Social History Tobacco Use Smoking status: Former Current packs/day: 1.00 Types: Cigarettes Smokeless tobacco: Former Quit date: 04/25/2015 Vaping Use Vaping status: Never Used Substance Use Topics Alcohol use: Yes Comment: less than weekly use Drug use: Never FAMILY HISTORY: FAMILY HISTORY Adopted: Yes Problem Relation Age of Onset Cancer Father lung Heart disease Sister No Known Problems Brother No Known Problems Brother other (Liver Disease) Paternal Grandmother Migraines Paternal Grandmother Cancer Paternal Grandfather Lung No Known Problems Son Cancer Paternal Uncle Throat No Ocular Disease No Family History REVIEW OF SYMPTOMS: The review of systems data was entered by the nurse and reviewed by me There are no exam notes on file for this visit. PHYSICAL EXAMINATION: General: The patient is 49 year old female, well nourished, well hydrated in no acute distress. The patient is oriented to time, place, and person. VITALS: Last menstrual period 11/29/2023. There is no height or weight on file to calculate BMI. HEENT: Normal cephalic, ataumatic, pupils are equally round, sclera are anicteric, mucous membranes are moist, oropharynx is clear. Neck has no masses, asymmetry or lymphadenopathy. Thyroid is unremarkable. Respiratory: Clear to auscultation and percussion. Normal respiratory excursion and pattern. Cardiac: Examination is regular rate and rhythm. Abdominal exam: Soft, nontender, with no palpable masses. No hepatosplenomegaly. No palpable hernias. Rectal exam: exam deferred Extremities: no clubbing, cyanosis or edema. No adenopathy. Other: Normal pendulous breast bilaterally no hard palpable lesions are identified axillary exam is negative bilaterally. Supraclavicular exam is negative bilaterally LABORATORY VALUES: As Noted RADIOLOGIC STUDIES: As Noted Assessment IMPRESSION: Hiatal hernia (primary encounter diagnosis) Gastroesophageal reflux disease, unspecified whether esophagitis present PLAN: I plan to perform upper endoscopy. We discussed the risks and benefits of the planned endoscopy. I have informed the patient that complications can occur including failure to complete the endoscopy and perforation. The patient had the opportunity to ask questions concerning the planned endoscopy. My staff has also explained the procedure to the patient in understandable terms and has given the patient printed material concerning the procedure. The patient freely consents to surgery. With regards to the ultrasound of the left breast these are all benign in nature and a 6-month follow-up mammogram and ultrasound is recommended. Diagnoses: (K44.9) Hiatal hernia (primary encounter diagnosis) (K21.9) Gastroesophageal reflux disease, unspecified whether esophagitis present My findings have been communicated to Dr. Dickerson via shared medical record. This note will be forwarded to Dr. Leny Hsu MD. Return to Clinic: The patient is instructed to follow-up with me 1 week post operatively. Kirk Cast III, MD documented in this encounter [facility] 09-24-2024 History of Present illness Narrative Radiology Service Progress Note PATIENT NAME: Maximus Bradley DATE OF SERVICE: September 24, 2024 TIME: 2:04 PM PATIENT IDENTITY VERIFICATION COMPLETED USING TWO (2) IDENTIFIERS: Name and Date of confirmed by patient verbally. FALL SCREENING: Has the patient had 2 falls in the last year or 1 fall with injury or currently using an Ambulatory Assistive Device (Walker, Cane, Wheelchair, Crutches, etc.)? No PATIENT GENDER DATA: Assigned female at . status: : No status: NO. PATIENT RELEVANT IMPLANT DATA REVIEWED: Not Applicable PATIENT PRESENTS WITH AN IMPLANTABLE OR ATTACHED PAINT PREPARER: No RADIOLOGY DEPARTMENT: Ultrasound PERIPHERAL IV DATA: Not applicable SIGNED BY: Mira Natarajan RDMS September 24, 2024 2:04 PM documented in this encounter [facility] 09-24-2024 Note HNO ID: [id number] Author: MIRA NATARAJAN RDMS Service: ? Author Type: Sparmaker Type: Progress Notes Filed: 09/24/2024 14:04 Note Text: Radiology Service Progress Note PATIENT NAME: Maximus Bradley DATE OF SERVICE: September 24, 2024 TIME: 2:04 PM PATIENT IDENTITY VERIFICATION COMPLETED USING TWO (2) IDENTIFIERS: Name and Date of confirmed by patient verbally. FALL SCREENING: Has the patient had 2 falls in the last year or 1 fall with injury or currently using an Ambulatory Assistive Device (Walker, Cane, Wheelchair, Crutches, etc.)? No PATIENT GENDER DATA: Assigned female at . status: : No status: NO. PATIENT RELEVANT IMPLANT DATA REVIEWED: Not Applicable PATIENT PRESENTS WITH AN IMPLANTABLE OR ATTACHED PAINT PREPARER: No RADIOLOGY DEPARTMENT: Ultrasound PERIPHERAL IV DATA: Not applicable SIGNED BY: Mira Natarajan RDMS September 24, 2024 2:[address] [facility] 09-24-2024 History of Present illness Narrative Radiology Service Progress Note PATIENT NAME: Maximus Bradley DATE OF SERVICE: September 24, 2024 TIME: 10:51 AM PATIENT IDENTITY VERIFICATION COMPLETED USING TWO (2) IDENTIFIERS: Name and Date of confirmed by patient verbally. FALL SCREENING: Has the patient had 2 falls in the last year or 1 fall with injury or currently using an Ambulatory Assistive Device (Walker, Cane, Wheelchair, Crutches, etc.)? No PATIENT GENDER DATA: Assigned female at . status: : No status: NO. PATIENT RELEVANT IMPLANT DATA REVIEWED: Not Applicable PATIENT PRESENTS WITH AN IMPLANTABLE OR ATTACHED PAINT PREPARER: No RADIOLOGY DEPARTMENT: Mammography PERIPHERAL IV DATA: Not applicable SIGNED BY: Jaimee Prajapati September 24, 2024 10:51 AM documented in this encounter [facility] 09-24-2024 Note HNO ID: [id number] Author: AVINASH VILLASEÑOR Mammo Tech Service: ? Author Type: Sparmaker Type: Progress Notes Filed: 09/24/2024 10:51 Note Text: Radiology Service Progress Note PATIENT NAME: Maximus Bradley DATE OF SERVICE: September 24, 2024 TIME: 10:51 AM PATIENT IDENTITY VERIFICATION COMPLETED USING TWO (2) IDENTIFIERS: Name and Date of confirmed by patient verbally. FALL SCREENING: Has the patient had 2 falls in the last year or 1 fall with injury or currently using an Ambulatory Assistive Device (Walker, Cane, Wheelchair, Crutches, etc.)? No PATIENT GENDER DATA: Assigned female at . status: : No status: NO. PATIENT RELEVANT IMPLANT DATA REVIEWED: Not Applicable PATIENT PRESENTS WITH AN IMPLANTABLE OR ATTACHED PAINT PREPARER: No RADIOLOGY DEPARTMENT: Mammography PERIPHERAL IV DATA: Not applicable SIGNED BY: Avinash Villaseñor [employer] September 24, 2024 10:[address] [facility] 09-17-2024 Telephone encounter Note The patient has been identified by name and date of : Yes Caregiver verified no other encounters exist for this prescription request: Yes Caregiver confirmed with patient/requestor that no other refills are due, in the near future, with this provider at this time: Yes The last office visit in the department: 09/02/2024 Does the patient have a future office visit with this provider/department: Yes 03/02/2025 Requested Prescriptions Pending Prescriptions Disp Refills VITAMIN D-3 50 mcg (2,000 unit) tablet 180 tablet 3 Sig: TAKE 2 TABLETS (4000 UNITS) BY MOUTH ONCE DAILY Shraddha Tucker RN September 17, 2024 9:53 AM [facility] 09-17-2024 Miscellaneous Notes The patient has been identified by name and date of : Yes Caregiver verified no other encounters exist for this prescription request: Yes Caregiver confirmed with patient/requestor that no other refills are due, in the near future, with this provider at this time: Yes The last office visit in the department: 09/02/2024 Does the patient have a future office visit with this provider/department: Yes 03/02/2025 Requested Prescriptions Pending Prescriptions Disp Refills VITAMIN D-3 50 mcg (2,000 unit) tablet 180 tablet 3 Sig: TAKE 2 TABLETS (4000 UNITS) BY MOUTH ONCE DAILY Shraddha Tucker RN September 17, 2024 9:53 AM documented in this encounter [facility] 09-03-2024 Telephone encounter Note Pt called and is notified of providers results and instructions. Pt voices understanding. Maya Hernandez RN [facility] 09-03-2024 Miscellaneous Notes Pt called and is notified of providers results and instructions. Pt voices understanding. Maya Hernandez, RN Attempted to reach pt by phone without success. No voice mail. Try later. Sandhya Watts LPN ----- Message from Leny Hsu MD sent at 09/03/2024 7:05 AM EST ----- Thyroid testing normal. No change in regimen. documented in this encounter [facility] 09-03-2024 Telephone encounter Note Attempted to reach pt by phone without success. No voice mail. Try later. Sandhya Watts LPN [facility] 09-03-2024 Telephone encounter Note ----- Message from Leny Hsu MD sent at 09/03/2024 7:05 AM EST ----- Thyroid testing normal. No change in regimen. [facility] 09-02-2024 Note HNO ID: [id number] Author: LENY HSU MD Service: ? Author Type: Physician Type: Progress Notes Filed: 09/02/2024 15:20 Note Text: Chief Complaint Patient presents with: Follow Up HPI Maximus Bradley is a 49 year old female who presents here today for routine follow up. Suprapubic pain from last OV resolved. Migraines have been rare on the Topamax. Using Amerge PRN for breakthrough which is working well for her. No known triggers for migraines. Needs refill today. Taking synthroid daily without side effects. TSH normal last October. Complaining of constipation and weight gain. Would like repeat labs. Anxiety and depression symptoms are improved with Wellbutrin, Effexor, and Buspar without side effects. Denies SI/HI, panic symptoms. Not seeing counseling and would like to continue current regimen. GERD: patient states that she is taking prilosec every morning and still gets heartburn at night. Would like adjustment to her regimen. Triggered by spicy foods or red sauces. Denies vomiting, dysphagia, odynophagia, hematochezia, melena. Requesting refill of clotrimazole cream in case rash under her breast returns. No rash today. Keeping area dry to prevent recurrence. Past medical history, appointments, medications, allergies reviewed. Previous Medical History PAST MEDICAL HISTORY Diagnosis Date Abdominal pain, epigastric Abnormal mammogram 09/14/2016 Acute gastritis without mention of hemorrhage Anxiety Chest pain Class 1 obesity due to excess calories without serious comorbidity with body mass index (BMI) of 34.0 to 34.9 in adult Depression Disability, developmental Enlarged thyroid Gastroesophageal reflux disease with esophagitis without hemorrhage Hypothyroidism Iron deficiency LLQ pain 10/07/2013 Low blood sugar 03/29/2015 Migraines [facility] neurology Obesity Plantar warts Reflux esophagitis Thrombocytosis Urinary retention Pablo Arrington Previous Surgical History PAST SURGICAL HISTORY Procedure Laterality Date BX OF BREAST; INCISIONAL Left 09/05/2023 COLONOSCOPY 11/28/2021 repeat in 10 years DILATION AND CURETTAGE DXAND/THER NONOBSTETRIC EGD W/O BRSH SPEC VARICIES INJ 01/30/2022 ESOPHAGOGASTRODUODENOSCOPY TRANSORAL DIAGNOSTIC 07/04/2005 EGD FNA WITH IMAGING Right 09/26/2016 U/S FNA UOQ right breast LIG/TRNSXJ FLP TUBE ABDL/VAG APPR UNI/BI Tubal ligation Family History FAMILY HISTORY Adopted: Yes Problem Relation Age of Onset Cancer Father lung Heart disease Sister No Known Problems Brother No Known Problems Brother other (Liver Disease) Paternal Grandmother Migraines Paternal Grandmother Cancer Paternal Grandfather Lung No Known Problems Son Cancer Paternal Uncle Throat No Ocular Disease No Family History Patient Allergies ALLERGIES Allergen Reactions Bee Pollen Anaphylaxis Adderall [Dextroamp* Itching Amphetamine Itching Imitrex [Sumatripta* Other: See Comments palpitations Current Medications Current Outpatient Medications on File Prior to Visit Medication Sig busPIRone (BUSPAR) 5 mg tablet Take 1 tablet by mouth two times a day. levothyroxine (SYNTHROID) 75 mcg tablet Take 1 tablet by mouth once daily. Take on empty stomach. For Thyroid omeprazole (PRILOSEC) 40 mg capsule Take 1 capsule by mouth once daily. buPROPion XL (WELLBUTRIN XL) 300 mg 24 hr tablet Take 1 tablet by mouth once daily. loratadine (CLARITIN) 10 mg tablet Take 1 tablet by mouth once daily. albuterol HFA (VENTOLIN HFA) 90 mcg/actuation inhaler Inhale 2 Puffs as instructed every 4 hours as needed for wheezing/shortness of breath. venlafaxine (EFFEXOR) 100 mg tablet Take 1 tablet by mouth two times a day. naratriptan (AMERGE) 2.5 mg tablet Take 1 tablet (2.5 mg) by mouth as directed. at the onset of headache; if headache returns or does not fully resolve, the dose may be repeated after 4 hours; do not exceed five(5) mg in 24 hours. NO more than 10 doses in a month. folic acid 1 mg tablet Take 1 tablet by mouth once daily. topiramate (TOPAMAX) 25 mg capsule Take 2 capsules by mouth two times a day. fluticasone (FLONASE) 50 mcg/actuation nasal spray Use 2 Sprays in each nostril once daily. Rinse mouth after use. clotrimazole (LOTRIMIN) 1 % cream Apply BID to rash until rash goes away, and then continue for 1 more week. VITAMIN D-3 50 mcg (2,000 unit) tablet TAKE 2 TABLETS (4000 UNITS) BY MOUTH ONCE DAILY cyanocobalamin (VITAMIN B-12) 1,000 mcg tab TAKE 1 TABLET BY MOUTH DAILY sucralfate (CARAFATE) 100 mg/mL suspension TAKE 10ML BY MOUTH TWICE A DAY (Patient not taking: Reported on 09/02/2024) No current facility-administered medications on file prior to visit. Social History Social History Tobacco Use Smoking status: Former Current packs/day: 1.00 Types: Cigarettes Smokeless tobacco: Former Quit date: 04/25/2015 Vaping Use Vaping status: Never Used Substance Use Topics Alcoh (more content not included)... [facility] 09-02-2024 History of Present illness Narrative Chief Complaint Patient presents with: Follow Up HPI Maximus Bradley is a 49 year old female who presents here today for routine follow up. Suprapubic pain from last OV resolved. Migraines have been rare on the Topamax. Using Amerge PRN for breakthrough which is working well for her. No known triggers for migraines. Needs refill today. Taking synthroid daily without side effects. TSH normal last October. Complaining of constipation and weight gain. Would like repeat labs. Anxiety and depression symptoms are improved with Wellbutrin, Effexor, and Buspar without side effects. Denies SI/HI, panic symptoms. Not seeing counseling and would like to continue current regimen. GERD: patient states that she is taking prilosec every morning and still gets heartburn at night. Would like adjustment to her regimen. Triggered by spicy foods or red sauces. Denies vomiting, dysphagia, odynophagia, hematochezia, melena. Requesting refill of clotrimazole cream in case rash under her breast returns. No rash today. Keeping area dry to prevent recurrence. Past medical history, appointments, medications, allergies reviewed. Previous Medical History PAST MEDICAL HISTORY Diagnosis Date Abdominal pain, epigastric Abnormal mammogram 09/14/2016 Acute gastritis without mention of hemorrhage Anxiety Chest pain Class 1 obesity due to excess calories without serious comorbidity with body mass index (BMI) of 34.0 to 34.9 in adult Depression Disability, developmental Enlarged thyroid Gastroesophageal reflux disease with esophagitis without hemorrhage Hypothyroidism Iron deficiency LLQ pain 10/07/2013 Low blood sugar 03/29/2015 Migraines [facility] neurology Obesity Plantar warts Reflux esophagitis Thrombocytosis Urinary retention Pablo Arrington Previous Surgical History PAST SURGICAL HISTORY Procedure Laterality Date BX OF BREAST; INCISIONAL Left 09/05/2023 COLONOSCOPY 11/28/2021 repeat in 10 years DILATION & CURETTAGE DX&/THER NONOBSTETRIC EGD W/O BRSH SPEC VARICIES INJ 01/30/2022 ESOPHAGOGASTRODUODENOSCOPY TRANSORAL DIAGNOSTIC 07/04/2005 EGD FNA WITH IMAGING Right 09/26/2016 U/S FNA UOQ right breast LIG/TRNSXJ FLP TUBE ABDL/VAG APPR UNI/BI Tubal ligation Family History FAMILY HISTORY Adopted: Yes Problem Relation Age of Onset Cancer Father lung Heart disease Sister No Known Problems Brother No Known Problems Brother other (Liver Disease) Paternal Grandmother Migraines Paternal Grandmother Cancer Paternal Grandfather Lung No Known Problems Son Cancer Paternal Uncle Throat No Ocular Disease No Family History Patient Allergies ALLERGIES Allergen Reactions Bee Pollen Anaphylaxis Adderall [Dextroamp* Itching Amphetamine Itching Imitrex [Sumatripta* Other: See Comments palpitations Current Medications Current Outpatient Medications on File Prior to Visit Medication Sig busPIRone (BUSPAR) 5 mg tablet Take 1 tablet by mouth two times a day. levothyroxine (SYNTHROID) 75 mcg tablet Take 1 tablet by mouth once daily. Take on empty stomach. For Thyroid omeprazole (PRILOSEC) 40 mg capsule Take 1 capsule by mouth once daily. buPROPion XL (WELLBUTRIN XL) 300 mg 24 hr tablet Take 1 tablet by mouth once daily. loratadine (CLARITIN) 10 mg tablet Take 1 tablet by mouth once daily. albuterol HFA (VENTOLIN HFA) 90 mcg/actuation inhaler Inhale 2 Puffs as instructed every 4 hours as needed for wheezing/shortness of breath. venlafaxine (EFFEXOR) 100 mg tablet Take 1 tablet by mouth two times a day. naratriptan (AMERGE) 2.5 mg tablet Take 1 tablet (2.5 mg) by mouth as directed. at the onset of headache; if headache returns or does not fully resolve, the dose may be repeated after 4 hours; do not exceed five(5) mg in 24 hours. NO more than 10 doses in a month. folic acid 1 mg tablet Take 1 tablet by mouth once daily. topiramate (TOPAMAX) 25 mg capsule Take 2 capsules by mouth two times a day. fluticasone (FLONASE) 50 mcg/actuation nasal spray Use 2 Sprays in each nostril once daily. Rinse mouth after use. clotrimazole (LOTRIMIN) 1 % cream Apply BID to rash until rash goes away, and then continue for 1 more week. VITAMIN D-3 50 mcg (2,000 unit) tablet TAKE 2 TABLETS (4000 UNITS) BY MOUTH ONCE DAILY cyanocobalamin (VITAMIN B-12) 1,000 mcg tab TAKE 1 TABLET BY MOUTH DAILY sucralfate (CARAFATE) 100 mg/mL suspension TAKE 10ML BY MOUTH TWICE A DAY (Patient not taking: Reported on 09/02/2024) No current facility-administered medications on file prior to visit. Social History Social History Tobacco Use Smoking status: Former Current packs/day: 1.00 Types: Cigarettes Smokeless tobacco: Former Quit date: 04/25/2015 Vaping Use Vaping status: Never Used Substance Use Topics Alcohol use: Yes Comment: less than weekly use Drug use: Never Review of Symptoms REVIEW OF SYSTEMS GENERAL: No weight loss, malaise or fevers RESPIRATORY: Negative for cough, hemoptysis, wheezing, COPD, dyspnea or shortness of breath CARDIOVASCULAR: Negative for chest pain, leg swelling, hypertension, CHF or palpitations GI: No nausea, vomiting, or diarrhea SKIN: Negative for lesions, rash, and itching EXAM: BP 128/86 (BP Site: Left Arm, BP Position: Sitting) Pulse 88 Resp 20 Wt 97.5 kg (215 lb) LMP 11/29/2023 (Approximate) SpO2 98% BMI 34.70 kg/m General Appearance: Well appearing, alert, in no acute distress, well-hydrated, well nourished.. Skin: Skin color, texture, turgor normal, no suspicious rashes or lesions. Lungs: Lungs clear to auscultation. No wheezing, rhonchi, rales.. Heart: RRR without murmur, gallop, or rubs. No ectopy. Abdomen: Normal abdominal exam, Abdomen soft, non-tender. Bowel sounds normal. No masses, organomegaly. Extremities: No deformities, edema, skin discoloration, clubbing or cyanosis. Good capillary refill. . Health Maintenance List Anxiety Screening Never done Influenza Vaccine(1) due on 03/09/2024 Covid-19 Vaccine( - season) Never done Mammogram Screening due on 07/25/2024 Hepatitis B Vaccine(1 of 3 - 19+ 3-dose series) due on 01/13/2025 Cervical Cancer Screening due on 07/28/2025 Annual PCP Team Chronic Disease Visit due on 08/06/2025 BP Controlled (<130/80) due on 08/06/2025 Diabetes Screening due on 08/06/2027 Lipid Screening due on 02/03/2029 DTaP,Tdap,Td Vaccine(2 - Td or Tdap) due on 10/01/2029 Colorectal Cancer Screening due on 11/29/2031 Hepatitis C Screening Completed HIV Screening Completed Data reviewed Latest Ref Rng 08/06/2024 WBC 3.70 - 11.00 k/uL 10.23 RBC 3.90 - 5.20 m/uL 4.86 Hemoglobin 11.5 - 15.5 g/dL 13.8 Hematocrit 36.0 - 46.0 % 41.0 MCV 80.0 - 100.0 fL 84.4 MCH 26.0 - 34.0 pg 28.4 MCHC 30.5 - 36.0 g/dL 33.7 RDW-CV 11.5 - 15.0 % 13.1 Platelet Count 150 - 400 k/uL 493 (H) MPV 9.0 - 12.7 fL 9.7 Neut% % 64.1 Abs Neut (ANC) 1.45 - 7.50 k/uL 6.55 Lymph% % 23.9 Abs Lymph 1.00 - 4.00 k/uL 2.45 Fannin% % 7.5 Abs Fannin <0.87 k/uL 0.77 Eosin% % 3.3 Abs Eosin <0.46 k/uL 0.34 Baso% % 0.9 Abs Baso <0.11 k/uL 0.09 Immature Gran % % 0.3 IMMATURE GRANS (ABS) <0.10 k/uL 0.03 NRBC /100 WBC 0.0 Absolute nRBC <0.01 k/uL <0.01 DTYPE Auto Protein, Total 6.3 - 8.0 g/dL 6.6 Albumin 3.9 - 4.9 g/dL 4.2 Calcium 8.5 - 10.2 mg/dL 9.4 Bilirubin, Total 0.2 - 1.3 mg/dL 0.3 Alkaline Phosphatase 34 - 123 U/L 100 AST 13 - 35 U/L 15 ALT 7 - 38 U/L 18 Glucose 74 - 99 mg/dL 87 BUN 7 - 21 mg/dL 9 Creatinine 0.58 - 0.96 mg/dL 0.84 Sodium 136 - 144 mmol/L 140 Potassium 3.7 - 5.1 mmol/L 4.0 Chloride 98 - 107 mmol/L 106 CO2 22 - 30 mmol/L 21 (L) Anion Gap 8 - 15 mmol/L 13 eGFR >=60 mL/min/1.73m 86 Iron 41 - 186 ug/dL 114 TIBC 232 - 386 ug/dL 282 Transferrin Saturation 15.0 - 57.0 % 40.4 WSR 0 - 20 mm/hr 5 CRP <0.9 mg/dL 0.7 Ferritin 14.7 - 205.1 ng/mL 66.9 Legend: (H) High (L) Low ASSESSMENT/PLAN: 1. Essential hypertension - ICD9: 401.9, ICD10: I10 (primary diagnosis) - Controlled - Continue current medications - Recommend home blood pressure monitoring, to bring results to next visit - Encouraged sodium restriction, DASH or Mediterranean diet - Recommend regular aerobic exercise 2. Acquired hypothyroidism - ICD9: 244.9, ICD10: E03.9 - Instructed patient on importance of taking on an empty stomach either first thing in the morning or at bedtime. - check TSH today - continue current dose of Synthroid - THYROID STIMULATING HORMONE 3. Gastroesophageal reflux disease without esophagitis - ICD9: 530.81, ICD10: K21.9 - Discussed lifestyle modifications including losing weight, limiting caffeine, and no meals three hours before sleep - Begin treatment with Pepcid 20 mg QD - FAMOTIDINE 20 MG TABLET 4. Migraine without aura and without status migrainosus, not intractable - ICD9: 346.10, ICD10: G43.009 Controlled on current regimen - NARATRIPTAN 2.5 MG TABLET 5. Moderate episode of recurrent major depressive disorder (HCC) - ICD9: 296.32, ICD10: F33.1 Controlled on current regimen. 6. CRISTINO (generalized anxiety disorder) - ICD9: 300.02, ICD10: F41.1 (HCC) - ICD9: 296.32, ICD10: F33.1 Controlled on current regimen. 7. Class 1 obesity due to excess calories with body mass index (BMI) of 34.0 to 34.9 in adult, unspecified whether serious comorbidity present - ICD9: 278.00, V85.34, ICD10: E66.811, E66.09, Z68.34 Stable - Behavioral intervention 8. Tinea corporis - ICD9: 110.5, ICD10: B35.4 Refill clotrimazole. Discussed keeping area dry to prevent recurrent infection. - CLOTRIMAZOLE 1 % TOPICAL CREAM 9. Encounter for immunization - ICD9: V03.89, ICD10: Z23 - INFLUENZA VACCINE, AGE 6MO-64YR, TRIVALENT (AFLURIA, FLULAVAL, FLUVIRIN, FLUZONE) documented in this encounter [facility] 09-02-2024 Note Patient Outreach (FA MPWS) ---- MAXIMUS BRADLEY ([id number]) 1975 F Date Time Provider Department 09/02/24 LENY HSUPWS During your visit today, we recorded the following information about you: Allergies As of Date: 09/02/2024 Noted Allergy Reaction BEE POLLEN 01/23/2019 10 - Anaphylaxis ADDERALL (DEXTROAMPHETAMINE-AMPHE*02/22/2015 9 - Itching AMPHETAMINE 12/13/2016 9 - Itching IMITREX (SUMATRIPTAN) 01/11/2015 14 - Other: See Comments Comments: palpitations Date Reviewed: 09/02/2024 Reviewed by: Kasia Dominique OCCA - Fully Assessed Visit Diagnosis:Encounter for screening mammogram for breast cancer [Z12.31] Order(s):[facility] SCREENING [facility]URA [[id number]] Order #: [id number] FUTURE Prescriptions as of 10/03/2024 - VITAMIN D-3 50 mcg (2,000 unit) tablet TAKE 2 TABLETS (4000 UNITS) BY MOUTH ONCE DAILY - naratriptan (AMERGE) 2.5 mg tablet Take 1 tablet by mouth as directed. at the onset of headache; if headache returns or does not fully resolve, the dose may be repeated after 4 hours; do not exceed five(5) mg in 24 hours. NO more than 10 doses in a month. - famotidine (PEPCID) 20 mg tablet Take 1 tablet by mouth at bedtime as needed. - clotrimazole (LOTRIMIN) 1 % cream Apply BID to rash until rash goes away, and then continue for 1 more week. - cyanocobalamin (VITAMIN B-12) 1,000 mcg tab TAKE 1 TABLET BY MOUTH DAILY - busPIRone (BUSPAR) 5 mg tablet Take 1 tablet by mouth two times a day. - levothyroxine (SYNTHROID) 75 mcg tablet Take 1 tablet by mouth once daily. Take on empty stomach. For Thyroid - omeprazole (PRILOSEC) 40 mg capsule Take 1 capsule by mouth once daily. - buPROPion XL (WELLBUTRIN XL) 300 mg 24 hr tablet Take 1 tablet by mouth once daily. - loratadine (CLARITIN) 10 mg tablet Take 1 tablet by mouth once daily. - albuterol HFA (VENTOLIN HFA) 90 mcg/actuation inhaler Inhale 2 Puffs as instructed every 4 hours as needed for wheezing/shortness of breath. - venlafaxine (EFFEXOR) 100 mg tablet Take 1 tablet by mouth two times a day. - folic acid 1 mg tablet Take 1 tablet by mouth once daily. - topiramate (TOPAMAX) 25 mg capsule Take 2 capsules by mouth two times a day. - fluticasone (FLONASE) 50 mcg/actuation nasal spray Use 2 Sprays in each nostril once daily. Rinse mouth after use. Problem List As Of Date 09/02/2024 Noted Resolved Abdominal pain, epigastric [R10.13] 07/22/2013 Hypothyroidism [E03.9] 12/06/2010 Enlarged thyroid [E04.9] 12/06/2010 Diarrhea [R19.7] 07/22/2013 01/11/2015 Menorrhagia [N92.0] 10/07/2013 Migraines [G43.909] 01/04/2015 01/11/2015 Essential hypertension [I10] 01/04/2015 Migraine headache without aura [G43.009] 01/11/2015 Low blood sugar [E16.2] 03/29/2015 12/30/2019 Depression [F32.A] Moderate episode of recurrent major depressive *07/17/2023 Claudication (HCC) [I73.9] 07/17/2023 07/17/2023 Obesity [E66.9] 01/14/2024 Iron deficiency [E61.1] Encounter Status:Closed by EPIC, PRODUSER on 3/28/[address] [facility] 08-26-2024 Telephone encounter Note The patient has been identified by name and date of : Yes Caregiver verified no other encounters exist for this prescription request: Yes Caregiver confirmed with patient/requestor that no other refills are due, in the near future, with this provider at this time: Yes The last office visit in the department: 05/13/2024 Does the patient have a future office visit with this provider/department: Yes 11/11/2024 Requested Prescriptions Pending Prescriptions Disp Refills cyanocobalamin (VITAMIN B-12) 1,000 mcg tab [Pharmacy Med Name: Vitamin B-12 1000MCG TABS] 28 tablet Sig: TAKE 1 TABLET BY MOUTH DAILY Terry Esteves RN August 26, 2024 11:50 AM [facility] 08-26-2024 Miscellaneous Notes The patient has been identified by name and date of : Yes Caregiver verified no other encounters exist for this prescription request: Yes Caregiver confirmed with patient/requestor that no other refills are due, in the near future, with this provider at this time: Yes The last office visit in the department: 05/13/2024 Does the patient have a future office visit with this provider/department: Yes 11/11/2024 Requested Prescriptions Pending Prescriptions Disp Refills cyanocobalamin (VITAMIN B-12) 1,000 mcg tab [Pharmacy Med Name: Vitamin B-12 1000MCG TABS] 28 tablet Sig: TAKE 1 TABLET BY MOUTH DAILY Terry Esteves RN August 26, 2024 11:50 AM documented in this encounter [facility] 08-20-2024 Telephone encounter Note Attempted to contact patient but mobile recording she was unavailable and to try back later. Ruthie Burnham LPN [facility] 02-12-2025 Miscellaneous Notes Attempted to contact patient but mobile recording she was unavailable and to try back later. Ruthie Burnham LPN No showed OV yesterday. Needs to reschedule. The patient has been identified by name and date of : Yes Caregiver verified no other encounters exist for this prescription request: Yes Caregiver confirmed with patient/requestor that no other refills are due, in the near future, with this provider at this time: Yes The last office visit in the department: 08/06/2024 Does the patient have a future office visit with this provider/department: No Visit date not found Requested Prescriptions Pending Prescriptions Disp Refills busPIRone (BUSPAR) 5 mg tablet 180 tablet 1 Sig: Take 1 tablet by mouth two times a day. levothyroxine (SYNTHROID) 75 mcg tablet 90 tablet 1 Sig: Take 1 tablet by mouth once daily. Take on empty stomach. For Thyroid omeprazole (PRILOSEC) 40 mg capsule 90 capsule 1 Sig: Take 1 capsule by mouth once daily. Maya Hernandez RN August 20, 2024 9:39 AM documented in this encounter [facility] 08-20-2024 Telephone encounter Note No showed OV yesterday. Needs to reschedule. [facility] 08-20-2024 Telephone encounter Note The patient has been identified by name and date of : Yes Caregiver verified no other encounters exist for this prescription request: Yes Caregiver confirmed with patient/requestor that no other refills are due, in the near future, with this provider at this time: Yes The last office visit in the department: 08/06/2024 Does the patient have a future office visit with this provider/department: No Visit date not found Requested Prescriptions Pending Prescriptions Disp Refills busPIRone (BUSPAR) 5 mg tablet 180 tablet 1 Sig: Take 1 tablet by mouth two times a day. levothyroxine (SYNTHROID) 75 mcg tablet 90 tablet 1 Sig: Take 1 tablet by mouth once daily. Take on empty stomach. For Thyroid omeprazole (PRILOSEC) 40 mg capsule 90 capsule 1 Sig: Take 1 capsule by mouth once daily. Maya Hernandez RN August 20, 2024 9:39 AM [facility] 08-11-2024 Telephone encounter Note Pt notified and voiced understanding. Marya Long MA [facility] 08-11-2024 Miscellaneous Notes Pt notified and voiced understanding. Marya Long MA ----- Message from Leny Hsu MD sent at 08/07/2024 8:49 PM EST ----- Xray of the abdomen is negative for signs of bowel obstruction. Small to moderate amount of stool noted. Continue treatment as discussed in office. Phoned patient and she is not available. Keyla Arteaga LPN ----- Message from Leny Hsu MD sent at 08/07/2024 8:49 PM EST ----- Xray of the abdomen is negative for signs of bowel obstruction. Small to moderate amount of stool noted. Continue treatment as discussed in office. documented in this encounter [facility] 08-11-2024 Telephone encounter Note ----- Message from Leny Hsu MD sent at 08/07/2024 8:49 PM EST ----- Xray of the abdomen is negative for signs of bowel obstruction. Small to moderate amount of stool noted. Continue treatment as discussed in office. [facility] 08-08-2024 Telephone encounter Note Phoned patient and she is not available. Keyla Arteaga LPN [facility] 08-08-2024 Telephone encounter Note ----- Message from Leny Hsu MD sent at 08/07/2024 8:49 PM EST ----- Xray of the abdomen is negative for signs of bowel obstruction. Small to moderate amount of stool noted. Continue treatment as discussed in office. [facility] 08-08-2024 Telephone encounter Note Pt called back and was informed of [employer] message. Pt voiced understanding and had not further questions at this time [facility] 08-08-2024 Miscellaneous Notes Pt called back and was informed of Shadis message. Pt voiced understanding and had not further questions at this time Pts voice mail is full need to try back again. Normal labs aside from high platelets which have been stable for years. Iron levels and ferritin improved. May stop iron supplement and eat more iron rich foods. documented in this encounter [facility] 08-08-2024 Telephone encounter Note Pts voice mail is full need to try back again. [facility] 08-07-2024 Telephone encounter Note Normal labs aside from high platelets which have been stable for years. Iron levels and ferritin improved. May stop iron supplement and eat more iron rich foods. [facility] 08-06-2024 History of Present illness Narrative Radiology Service Progress Note PATIENT NAME: Maximus Bradley DATE OF SERVICE: August 06, 2024 TIME: 12:19 PM PATIENT IDENTITY VERIFICATION COMPLETED USING TWO (2) IDENTIFIERS: Name and Date of confirmed by patient verbally. FALL SCREENING: Has the patient had 2 falls in the last year or 1 fall with injury or currently using an Ambulatory Assistive Device (Walker, Cane, Wheelchair, Crutches, etc.)? No PATIENT GENDER DATA: Assigned female at . status: : No status: NO. PATIENT RELEVANT IMPLANT DATA REVIEWED: Not Applicable PATIENT PRESENTS WITH AN IMPLANTABLE OR ATTACHED PAINT PREPARER: No RADIOLOGY DEPARTMENT: General X-ray: Exam(s) Completed: Abdomen X-Ray: Abdomen PERIPHERAL IV DATA: Not applicable SIGNED BY: Robbi Riddle August 06, 2024 12:19 PM documented in this encounter [facility] 08-06-2024 Note HNO ID: [id number] Author: MARIA DE JESUS CANALES Tech Service: ? Author Type: Technologist Type: Progress Notes Filed: 08/06/2024 12:37 Note Text: Radiology Service Progress Note PATIENT NAME: Maximus HERNANDEZN: [id number] DATE OF SERVICE: August 06, 2024 TIME: 12:19 PM PATIENT IDENTITY VERIFICATION COMPLETED USING TWO (2) IDENTIFIERS: Name and Date of confirmed by patient verbally. FALL SCREENING: Has the patient had 2 falls in the last year or 1 fall with injury or currently using an Ambulatory Assistive Device (Walker, Cane, Wheelchair, Crutches, etc.)? No PATIENT GENDER DATA: Assigned female at . status: : No status: NO. PATIENT RELEVANT IMPLANT DATA REVIEWED: Not Applicable PATIENT PRESENTS WITH AN IMPLANTABLE OR ATTACHED PAINT PREPARER: No RADIOLOGY DEPARTMENT: General X-ray: Exam(s) Completed: Abdomen X-Ray: Abdomen PERIPHERAL IV DATA: Not applicable SIGNED BY: Robbi Riddle August 06, 2024 12:[address] [facility] 08-06-2024 Instructions Leny Hsu MD - 08/06/2024 11:44 AM EST Please take miralax 2 times per day until stools are 1-2 times per day and soft, then back down to daily. Call in 2-3 days with an update on your pain. documented in this encounter [facility] 08-06-2024 Note HNO ID: [id number] Author: LENY HSU MD Service: ? Author Type: Physician Type: Progress Notes Filed: 08/12/2024 13:10 Note Text: Chief Complaint Patient presents with: Follow Up: 6 month Vaginal Problem: Patient reporting to nurse as finishing intake vaginal pain x 2 weeks. HPI Maximus Bradley is a 49 year old female who presents here today for Above Complaints. Patient complaining of pain in her lower abdomen which started about 2 weeks ago. Described as constant dull pain, currently 4/10, without radiation. Denies exacerbating factors. Treating with OTC Aleve without improvement. Admits to urinary frequency and urgency, constipation with hard stools. Pain does not improve after BM. Taking Miralax PRN. Denies dysuria, hematuria, fever/chills, nausea, vomiting, flank pain, abnormal vaginal bleeding or discharge, pain with sexual intercourse, abdominal injury, hematochezia, melena. Past medical history, appointments, medications, allergies reviewed. Previous Medical History PAST MEDICAL HISTORY Diagnosis Date Abdominal pain, epigastric Abnormal mammogram 09/14/2016 Acute gastritis without mention of hemorrhage Anxiety Chest pain Class 1 obesity due to excess calories without serious comorbidity with body mass index (BMI) of 34.0 to 34.9 in adult Depression Disability, developmental Enlarged thyroid Gastroesophageal reflux disease with esophagitis without hemorrhage Hypothyroidism Iron deficiency LLQ pain 10/07/2013 Low blood sugar 03/29/2015 Migraines [facility] neurology Obesity Plantar warts Reflux esophagitis Thrombocytosis Urinary retention Pablo Arrington Previous Surgical History PAST SURGICAL HISTORY Procedure Laterality Date BX OF BREAST; INCISIONAL Left 09/05/2023 COLONOSCOPY 11/28/2021 repeat in 10 years DILATION AND CURETTAGE DXAND/THER NONOBSTETRIC EGD W/O BRSH SPEC VARICIES INJ 01/30/2022 ESOPHAGOGASTRODUODENOSCOPY TRANSORAL DIAGNOSTIC 07/04/2005 EGD FNA WITH IMAGING Right 09/26/2016 U/S FNA UOQ right breast LIG/TRNSXJ FLP TUBE ABDL/VAG APPR UNI/BI Tubal ligation Family History FAMILY HISTORY Adopted: Yes Problem Relation Age of Onset Cancer Father lung Heart disease Sister No Known Problems Brother No Known Problems Brother other (Liver Disease) Paternal Grandmother Migraines Paternal Grandmother Cancer Paternal Grandfather Lung No Known Problems Son Cancer Paternal Uncle Throat No Ocular Disease No Family History Patient Allergies ALLERGIES Allergen Reactions Bee Pollen Anaphylaxis Adderall [Dextroamp* Itching Amphetamine Itching Imitrex [Sumatripta* Other: See Comments palpitations Current Medications Current Outpatient Medications on File Prior to Visit Medication Sig buPROPion XL (WELLBUTRIN XL) 300 mg 24 hr tablet Take 1 tablet by mouth once daily. ferrous sulfate 325 mg (65 mg iron) tablet Take 1 tablet by mouth once daily. loratadine (CLARITIN) 10 mg tablet Take 1 tablet by mouth once daily. albuterol HFA (VENTOLIN HFA) 90 mcg/actuation inhaler Inhale 2 Puffs as instructed every 4 hours as needed for wheezing/shortness of breath. venlafaxine (EFFEXOR) 100 mg tablet Take 1 tablet by mouth two times a day. naratriptan (AMERGE) 2.5 mg tablet Take 1 tablet (2.5 mg) by mouth as directed. at the onset of headache; if headache returns or does not fully resolve, the dose may be repeated after 4 hours; do not exceed five(5) mg in 24 hours. NO more than 10 doses in a month. folic acid 1 mg tablet Take 1 tablet by mouth once daily. topiramate (TOPAMAX) 25 mg capsule Take 2 capsules by mouth two times a day. sucralfate (CARAFATE) 100 mg/mL suspension TAKE 10ML BY MOUTH TWICE A DAY omeprazole (PRILOSEC) 40 mg capsule Take 1 capsule by mouth once daily. busPIRone (BUSPAR) 5 mg tablet Take 1 tablet by mouth two times a day. levothyroxine (SYNTHROID) 75 mcg tablet Take 1 tablet by mouth once daily. Take on empty stomach. For Thyroid fluticasone (FLONASE) 50 mcg/actuation nasal spray Use 2 Sprays in each nostril once daily. Rinse mouth after use. clotrimazole (LOTRIMIN) 1 % cream Apply BID to rash until rash goes away, and then continue for 1 more week. cyanocobalamin (VITAMIN B-12) 1,000 mcg tab Take 1 tablet by mouth once daily. VITAMIN D-3 50 mcg (2,000 unit) tablet TAKE 2 TABLETS (4000 UNITS) BY MOUTH ONCE DAILY No current facility-administered medications on file prior to visit. Social History Social History Tobacco Use Smoking status: Former Current packs/day: 1.00 Types: Cigarettes Smokeless tobacco: Former Quit date: 04/25/2015 Vaping Use Vaping status: Never Used Substance Use Topics Alcohol use: Yes Comment: less than weekly use Drug use: Never Review of Symptoms REVIEW OF SYSTEMS See HPI EXAM: BP 124/76 Pulse 93 Resp 16 Wt 98.7 kg (217 lb 9.6 oz) LMP 11/29/2023 (Approximate) SpO2 98% BMI 35.12 kg/m? Genera (more content not included)... [facility] 08-06-2024 History of Present illness Narrative Chief Complaint Patient presents with: Follow Up: 6 month Vaginal Problem: Patient reporting to nurse as finishing intake vaginal pain x 2 weeks. HPI Maximus Bradley is a 49 year old female who presents here today for Above Complaints. Patient complaining of pain in her lower abdomen which started about 2 weeks ago. Described as constant dull pain, currently 4/10, without radiation. Denies exacerbating factors. Treating with OTC Aleve without improvement. Admits to urinary frequency and urgency, constipation with hard stools. Pain does not improve after BM. Taking Miralax PRN. Denies dysuria, hematuria, fever/chills, nausea, vomiting, flank pain, abnormal vaginal bleeding or discharge, pain with sexual intercourse, abdominal injury, hematochezia, melena. Past medical history, appointments, medications, allergies reviewed. Previous Medical History PAST MEDICAL HISTORY Diagnosis Date Abdominal pain, epigastric Abnormal mammogram 09/14/2016 Acute gastritis without mention of hemorrhage Anxiety Chest pain Class 1 obesity due to excess calories without serious comorbidity with body mass index (BMI) of 34.0 to 34.9 in adult Depression Disability, developmental Enlarged thyroid Gastroesophageal reflux disease with esophagitis without hemorrhage Hypothyroidism Iron deficiency LLQ pain 10/07/2013 Low blood sugar 03/29/2015 Migraines [facility] neurology Obesity Plantar warts Reflux esophagitis Thrombocytosis Urinary retention Pablo Arrington Previous Surgical History PAST SURGICAL HISTORY Procedure Laterality Date BX OF BREAST; INCISIONAL Left 09/05/2023 COLONOSCOPY 11/28/2021 repeat in 10 years DILATION & CURETTAGE DX&/THER NONOBSTETRIC EGD W/O BRSH SPEC VARICIES INJ 01/30/2022 ESOPHAGOGASTRODUODENOSCOPY TRANSORAL DIAGNOSTIC 07/04/2005 EGD FNA WITH IMAGING Right 09/26/2016 U/S FNA UOQ right breast LIG/TRNSXJ FLP TUBE ABDL/VAG APPR UNI/BI Tubal ligation Family History FAMILY HISTORY Adopted: Yes Problem Relation Age of Onset Cancer Father lung Heart disease Sister No Known Problems Brother No Known Problems Brother other (Liver Disease) Paternal Grandmother Migraines Paternal Grandmother Cancer Paternal Grandfather Lung No Known Problems Son Cancer Paternal Uncle Throat No Ocular Disease No Family History Patient Allergies ALLERGIES Allergen Reactions Bee Pollen Anaphylaxis Adderall [Dextroamp* Itching Amphetamine Itching Imitrex [Sumatripta* Other: See Comments palpitations Current Medications Current Outpatient Medications on File Prior to Visit Medication Sig buPROPion XL (WELLBUTRIN XL) 300 mg 24 hr tablet Take 1 tablet by mouth once daily. ferrous sulfate 325 mg (65 mg iron) tablet Take 1 tablet by mouth once daily. loratadine (CLARITIN) 10 mg tablet Take 1 tablet by mouth once daily. albuterol HFA (VENTOLIN HFA) 90 mcg/actuation inhaler Inhale 2 Puffs as instructed every 4 hours as needed for wheezing/shortness of breath. venlafaxine (EFFEXOR) 100 mg tablet Take 1 tablet by mouth two times a day. naratriptan (AMERGE) 2.5 mg tablet Take 1 tablet (2.5 mg) by mouth as directed. at the onset of headache; if headache returns or does not fully resolve, the dose may be repeated after 4 hours; do not exceed five(5) mg in 24 hours. NO more than 10 doses in a month. folic acid 1 mg tablet Take 1 tablet by mouth once daily. topiramate (TOPAMAX) 25 mg capsule Take 2 capsules by mouth two times a day. sucralfate (CARAFATE) 100 mg/mL suspension TAKE 10ML BY MOUTH TWICE A DAY omeprazole (PRILOSEC) 40 mg capsule Take 1 capsule by mouth once daily. busPIRone (BUSPAR) 5 mg tablet Take 1 tablet by mouth two times a day. levothyroxine (SYNTHROID) 75 mcg tablet Take 1 tablet by mouth once daily. Take on empty stomach. For Thyroid fluticasone (FLONASE) 50 mcg/actuation nasal spray Use 2 Sprays in each nostril once daily. Rinse mouth after use. clotrimazole (LOTRIMIN) 1 % cream Apply BID to rash until rash goes away, and then continue for 1 more week. cyanocobalamin (VITAMIN B-12) 1,000 mcg tab Take 1 tablet by mouth once daily. VITAMIN D-3 50 mcg (2,000 unit) tablet TAKE 2 TABLETS (4000 UNITS) BY MOUTH ONCE DAILY No current facility-administered medications on file prior to visit. Social History Social History Tobacco Use Smoking status: Former Current packs/day: 1.00 Types: Cigarettes Smokeless tobacco: Former Quit date: 04/25/2015 Vaping Use Vaping status: Never Used Substance Use Topics Alcohol use: Yes Comment: less than weekly use Drug use: Never Review of Symptoms REVIEW OF SYSTEMS See HPI EXAM: BP 124/76 Pulse 93 Resp 16 Wt 98.7 kg (217 lb 9.6 oz) LMP 11/29/2023 (Approximate) SpO2 98% BMI 35.12 kg/m General Appearance: Well appearing, alert, in no acute distress, well-hydrated, well nourished.. Skin: Skin color, texture, turgor normal, no suspicious rashes or lesions. Abdomen: Abdomen soft. Bowel sounds normal. No masses, organomegaly, Negative CVA tenderness, Positive findings: tenderness mild suprapubic without guarding or rebound. Health Maintenance List Anxiety Screening Never done BP Controlled (<130/80) due on 08/15/2023 Influenza Vaccine(1) due on 03/09/2024 Covid-19 Vaccine( - season) Never done Mammogram Screening due on 07/25/2024 Hepatitis B Vaccine(1 of 3 - 19+ 3-dose series) due on 01/13/2025 Annual PCP Team Chronic Disease Visit due on 02/03/2025 Cervical Cancer Screening due on 07/28/2025 Diabetes Screening due on 02/03/2027 Lipid Screening due on 02/03/2029 DTaP,Tdap,Td Vaccine(2 - Td or Tdap) due on 10/01/2029 Colorectal Cancer Screening due on 11/29/2031 Hepatitis C Screening Completed HIV Screening Completed Data reviewed Latest Ref Rng 02/04/2024 02/27/2024 WBC 3.70 - 11.00 k/uL 10.00 10.79 RBC 3.90 - 5.20 m/uL 4.79 5.07 Hemoglobin 11.5 - 15.5 g/dL 11.4 (L) 12.1 Hematocrit 36.0 - 46.0 % 38.1 39.1 MCV 80.0 - 100.0 fL 79.5 (L) 77.1 (L) MCH 26.0 - 34.0 pg 23.8 (L) 23.9 (L) MCHC 30.5 - 36.0 g/dL 29.9 (L) 30.9 RDW-CV 11.5 - 15.0 % 14.3 14.1 Platelet Count 150 - 400 k/uL 523 (H) 532 (H) MPV 9.0 - 12.7 fL 10.3 10.3 Neut% % 66.6 63.9 Abs Neut (ANC) 1.45 - 7.50 k/uL 6.66 6.90 Lymph% % 22.6 25.5 Abs Lymph 1.00 - 4.00 k/uL 2.26 2.75 Fannin% % 6.5 6.7 Abs Fannin <0.87 k/uL 0.65 0.72 Eosin% % 3.0 2.8 Abs Eosin <0.46 k/uL 0.30 0.30 Baso% % 1.0 0.8 Abs Baso <0.11 k/uL 0.10 0.09 Immature Gran % % 0.3 0.3 IMMATURE GRANS (ABS) <0.10 k/uL 0.03 0.03 NRBC /100 WBC 0.0 0.0 Absolute nRBC <0.01 k/uL <0.01 <0.01 DTYPE Auto Auto Protein, Total 6.3 - 8.0 g/dL 6.3 Albumin 3.9 - 4.9 g/dL 3.9 Calcium 8.5 - 10.2 mg/dL 9.2 Bilirubin, Total 0.2 - 1.3 mg/dL 0.2 Alkaline Phosphatase 34 - 123 U/L 95 AST 13 - 35 U/L 15 ALT 7 - 38 U/L 12 Glucose 74 - 99 mg/dL 76 BUN 7 - 21 mg/dL 7 Creatinine 0.58 - 0.96 mg/dL 0.83 Sodium 136 - 144 mmol/L 140 Potassium 3.7 - 5.1 mmol/L 4.0 Chloride 98 - 107 mmol/L 107 CO2 22 - 30 mmol/L 23 Anion Gap 8 - 15 mmol/L 10 eGFR >=60 mL/min/1.73m 88 Total Cholesterol, Nonfasting <200 mg/dL 184 Triglycerides, Nonfasting <150 mg/dL 110 HDL Cholesterol, Nonfasting >39 mg/dL 38 (L) LDL Cholesterol, Nonfasting <100 mg/dL 124 (H) Non HDL Cholesterol, Nonfasting <130 mg/dL 146 (H) VLDL Cholesterol, Nonfasting <30 mg/dL 22 Total Chol/HDL Ratio, Nonfasting <5.10 mg/dL 4.84 LDL/HDL Ratio, Nonfasting <2.54 mg/dL 3.26 (H) Iron 41 - 186 ug/dL 38 (L) TIBC 232 - 386 ug/dL 378 Transferrin Saturation 15.0 - 57.0 % 10.1 (L) TSH 0.270 - 4.200 mIU/L 1.820 Ferritin 14.7 - 205.1 ng/mL 17.6 WSR 0 - 20 mm/hr 12 CRP <0.9 mg/dL 0.6 Legend: (L) Low (H) High Latest Ref Rng 08/06/2024 GLUCOSE UA (POCT) Negative mg/dL Negative BILIRUBIN UA (POCT) Negative Negative KETONE UA (POCT) Negative mg/dL Negative SPECIFIC GRAVITY UA (POCT) 1.005 - 1.030 1.020 HEMOGLOBIN/BLOOD UA (POCT) Negative Negative PH UA (POCT) 4.5 - 8.0 6.5 PROTEIN UA (POCT) Negative mg/dL Negative UROBILINOGEN UA (POCT) Normal E.U./dL 1.0 NITRITE UA (POCT) Negative Negative LEUKOCYTES UA (POCT) Negative Negative COLOR UA (POCT) Daya CLARITY UA (POCT) Clear ASSESSMENT/PLAN: 1. Suprapubic pain, acute - ICD9: 789.09, 338.19, ICD10: R10.2 (primary diagnosis) UA negative for infection. Obtain labs and imaging to evaluate for constipation, bowel obstruction, infection, inflammation. May use OTC analgesics PRN for pain. Push PO fluids and discussed bland diet. Red flags for re-assessment reviewed with patient in detail. - UA DIP, URINE (POC) - COMPLETE BLOOD COUNT AND DIFFERENTIAL - COMPREHENSIVE METABOLIC PANEL - XR ABDOMEN 1V SUPINE - SEDIMENTATION RATE, WESTERGREN - C-REACTIVE PROTEIN 2. Urinary frequency - ICD9: 788.41, ICD10: R35.0 UA negative for infection. Will workup abdominal pain and have patient call if symptoms persist. - UA DIP, URINE (POC) 3. Iron deficiency - ICD9: 280.9, ICD10: E61.1 Recheck levels. - IRON AND TIBC - FERRITIN 4. Chronic constipation - ICD9: 564.00, ICD10: K59.09 Push PO fluids, instructed to use miralax OTC BID until she is having 1-2 soft stools per day, then may reduce to daily dosage. Increase fiber in diet. Call if not improving in 2-3 days. Leny Hsu MD documented in this encounter [facility] 07-23-2024 Telephone encounter Note The patient has been identified by name and date of : Yes Caregiver verified no other encounters exist for this prescription request: Yes Caregiver confirmed with patient/requestor that no other refills are due, in the near future, with this provider at this time: Yes The last office visit in the department: 02/04/2024 Does the patient have a future office visit with this provider/department: Yes 08/06/2024 Requested Prescriptions Pending Prescriptions Disp Refills buPROPion XL (WELLBUTRIN XL) 300 mg 24 hr tablet 90 tablet 1 Sig: Take 1 tablet by mouth once daily. ferrous sulfate 325 mg (65 mg iron) tablet 90 tablet 0 Sig: Take 1 tablet by mouth once daily. loratadine (CLARITIN) 10 mg tablet 90 tablet 1 Sig: Take 1 tablet by mouth once daily. Shraddha Tucker RN July 23, 2024 11:25 AM [facility] 07-23-2024 Miscellaneous Notes The patient has been identified by name and date of : Yes Caregiver verified no other encounters exist for this prescription request: Yes Caregiver confirmed with patient/requestor that no other refills are due, in the near future, with this provider at this time: Yes The last office visit in the department: 02/04/2024 Does the patient have a future office visit with this provider/department: Yes 08/06/2024 Requested Prescriptions Pending Prescriptions Disp Refills buPROPion XL (WELLBUTRIN XL) 300 mg 24 hr tablet 90 tablet 1 Sig: Take 1 tablet by mouth once daily. ferrous sulfate 325 mg (65 mg iron) tablet 90 tablet 0 Sig: Take 1 tablet by mouth once daily. loratadine (CLARITIN) 10 mg tablet 90 tablet 1 Sig: Take 1 tablet by mouth once daily. Shraddha Tucker RN July 23, 2024 11:25 AM documented in this encounter [facility] 06-25-2024 Telephone encounter Note The patient has been identified by name and date of : Yes Caregiver verified no other encounters exist for this prescription request: Yes Caregiver confirmed with patient/requestor that no other refills are due, in the near future, with this provider at this time: Yes The last office visit in the department: 02/04/2024 Does the patient have a future office visit with this provider/department: Yes 08/06/2024 Requested Prescriptions Pending Prescriptions Disp Refills albuterol HFA (VENTOLIN HFA) 90 mcg/actuation inhaler 18 g 4 Sig: Inhale 2 Puffs as instructed every 4 hours as needed for wheezing/shortness of breath. Sandhya Watts LPN June 25, 2024 11:27 AM [facility] 06-25-2024 Miscellaneous Notes The patient has been identified by name and date of : Yes Caregiver verified no other encounters exist for this prescription request: Yes Caregiver confirmed with patient/requestor that no other refills are due, in the near future, with this provider at this time: Yes The last office visit in the department: 02/04/2024 Does the patient have a future office visit with this provider/department: Yes 08/06/2024 Requested Prescriptions Pending Prescriptions Disp Refills albuterol HFA (VENTOLIN HFA) 90 mcg/actuation inhaler 18 g 4 Sig: Inhale 2 Puffs as instructed every 4 hours as needed for wheezing/shortness of breath. Sandhya Watts LPN June 25, 2024 11:27 AM documented in this encounter [facility] 05-27-2024 Telephone encounter Note The patient has been identified by name and date of : Yes Caregiver verified no other encounters exist for this prescription request: Yes Caregiver confirmed with patient/requestor that no other refills are due, in the near future, with this provider at this time: Yes The last office visit in the department: 02/04/2024 Does the patient have a future office visit with this provider/department: Yes 08/06/2024 Requested Prescriptions Pending Prescriptions Disp Refills venlafaxine (EFFEXOR) 100 mg tablet 180 tablet 1 Sig: Take 1 tablet by mouth two times a day. Sandhya Watts LPN May 27, 2024 4:45 PM [facility] 05-27-2024 Miscellaneous Notes The patient has been identified by name and date of : Yes Caregiver verified no other encounters exist for this prescription request: Yes Caregiver confirmed with patient/requestor that no other refills are due, in the near future, with this provider at this time: Yes The last office visit in the department: 02/04/2024 Does the patient have a future office visit with this provider/department: Yes 08/06/2024 Requested Prescriptions Pending Prescriptions Disp Refills venlafaxine (EFFEXOR) 100 mg tablet 180 tablet 1 Sig: Take 1 tablet by mouth two times a day. Sandhya Watts LPN May 27, 2024 4:45 PM documented in this encounter [facility] 05-13-2024 Instructions Kristy Asencio PA-C - 05/13/2024 10:42 AM EST Follow up with primary care for possible osteoporosis from depo Continue with topiramate 100mg daily Take amerge with start of headache Follow up in 6 months documented in this encounter [facility] 05-13-2024 Note HNO ID: [id number] Author: KRISTY ASENCIO PA-C Service: ? Author Type: Physician Auditor In Charge Type: Progress Notes Filed: 05/13/2024 11:20 Note Text: [facility] Follow up CC: Headache Follow up Last Visit: 09/19/23 ASSESSMENT/PLAN: 1. Migraine without aura and without status migrainosus, not intractable - ICD9: 346.10, ICD10: G43.009 (primary diagnosis) Patient's headaches unchanged since last appointment. Notes and margins are effective abortive for her, having about 4 migraine days a month. Would like to come off the Topamax as she feels her headaches are stable and does not feel this is very effective medication for her. Will decrease slowly, did instruct her to decrease her Topamax to 50 mg a day and we will reassess her headaches in the next month or so. Patient agrees with plan. Patient denies any history of seizures. Did discuss this may increase her headaches and should this occur to send me a MyChart and we will go back up or find an alternative medication. Patient agrees understands. No new symptoms with her headaches, no red flag signs or symptoms that would warrant repeat imaging. Patient did see her eye doctor as well without any signs of optic disc swelling. 2. Syncope and collapse - ICD9: 780.2, ICD10: R55 3. Orthostatic lightheadedness - ICD9: 780.4, ICD10: R42 Patient without a repeat episodes of syncope. Did encourage her to get her tilt table as she did not have scheduled. Encouraged increasing water intake and decreasing caffeinated beverages to prevent lightheadedness. Patient was found to have low B12 and was given instructions on how to supplement this. Patient also concerned with episodes of shaking, states this only occurs when she does not eat all day and encouraged her to eat throughout the day to prevent this. Also had concerns over weight gain and encouraged to follow-up with her primary care for this issue. Patient family was concerned about some vision changes that are new, describing some difficulty seeing things up close, encouraged her to follow-up with her doctor. Patient agreeable to treatment plan of care at this time, all questions were answered. Patient to follow-up in 4 to 5 months or sooner should new symptoms change or worsen. Plan: All options for treatment discussed. Preventative: Topamax, will decrease to 50 mg, supplements Abortive: Amerge 2.5 mg Follow-up: 4 months Today: Patient is here for headache/migraine follow up. Last seen on 09/19/23 for migraine. Having 4 a month. Wanted to come off tpm. Did have repeat episode of syncope, encouraged tilt table to be scheduled. Did see cards and had ECHO and stress test. Since last visit headaches have improved. Last headache was when she slept the wrong way and got a kink in the neck and had a few headaches for a week a few months ago. Bought some cream and that seemed to help. Otherwise is headache free, on TPM 100mg, did not decrease it. No episodes of syncope. Current Headache treatment Preventative: TPM 100mg Abortive: amerge Medications effective? yes # of doses of abortive medications per month: few Total headache days per month: none Total headache attacks per month: none Headache free days: Yes Duration of attacks: All day Severity of headaches? Moderate to severe Location: Frontal. Aura: None Accompanying symptoms: photophobia, phonophobia, nausea, vomiting. Quality:throbbing. Worse with activity: No Pain today: 0/10 Triggers: none. Prodrome:none. Tobacco Use: No. Alcohol Use: No Caffeine:Yes: two sodas Water: not much Sleep- variable Prior Therapies TPM Maxalt Tylenol Compazine Candesartan Effexor Buspar Wellbutrin Candesartan The patient's prior records were reviewed including and lab testing, imaging, and procedures done since their last visit with me. Review of symptoms including constitutional, eyes, ENT, neck, respiratory, cardiovascular, GI, , musculoskeletal, hematologic, oncologic, endocrine, and psychiatric categories is unchanged. No new details in the family history or social history were offered by the patient. PAST MEDICAL HISTORY Diagnosis Date Abdominal pain, epigastric Abnormal mammogram 09/14/2016 Acute gastritis without mention of hemorrhage Anxiety Chest pain Class 1 obesity due to excess calories without serious comorbidity with body mass index (BMI) of 34.0 to 34.9 in adult Depression Disability, developmental Enlarged thyroid Gastroesophageal reflux disease with esophagitis without hemorrhage Hypothyroidism Iron deficiency LLQ pain 10/07/2013 Low blood sugar 03/29/2015 Migraines [facility] neurology Obesity Plantar warts Reflux esophagitis Thrombocytosis Urinary retention Pablo Arrington PAST SURGICAL HISTORY Procedure Laterality Date BX OF BREAST; INCISIONAL Left 09/05/2023 COLONOSCOPY 11/28/2021 repeat in 10 years (more content not included)... [facility] 05-13-2024 History of Present illness Narrative Images from the original note were not included. [facility] Follow up CC: Headache Follow up Last Visit: 09/19/23 ASSESSMENT/PLAN: 1. Migraine without aura and without status migrainosus, not intractable - ICD9: 346.10, ICD10: G43.009 (primary diagnosis) Patient's headaches unchanged since last appointment. Notes and margins are effective abortive for her, having about 4 migraine days a month. Would like to come off the Topamax as she feels her headaches are stable and does not feel this is very effective medication for her. Will decrease slowly, did instruct her to decrease her Topamax to 50 mg a day and we will reassess her headaches in the next month or so. Patient agrees with plan. Patient denies any history of seizures. Did discuss this may increase her headaches and should this occur to send me a MyChart and we will go back up or find an alternative medication. Patient agrees understands. No new symptoms with her headaches, no red flag signs or symptoms that would warrant repeat imaging. Patient did see her eye doctor as well without any signs of optic disc swelling. 2. Syncope and collapse - ICD9: 780.2, ICD10: R55 3. Orthostatic lightheadedness - ICD9: 780.4, ICD10: R42 Patient without a repeat episodes of syncope. Did encourage her to get her tilt table as she did not have scheduled. Encouraged increasing water intake and decreasing caffeinated beverages to prevent lightheadedness. Patient was found to have low B12 and was given instructions on how to supplement this. Patient also concerned with episodes of shaking, states this only occurs when she does not eat all day and encouraged her to eat throughout the day to prevent this. Also had concerns over weight gain and encouraged to follow-up with her primary care for this issue. Patient family was concerned about some vision changes that are new, describing some difficulty seeing things up close, encouraged her to follow-up with her doctor. Patient agreeable to treatment plan of care at this time, all questions were answered. Patient to follow-up in 4 to 5 months or sooner should new symptoms change or worsen. Plan: All options for treatment discussed. Preventative: Topamax, will decrease to 50 mg, supplements Abortive: Amerge 2.5 mg Follow-up: 4 months Today: Patient is here for headache/migraine follow up. Last seen on 09/19/23 for migraine. Having 4 a month. Wanted to come off tpm. Did have repeat episode of syncope, encouraged tilt table to be scheduled. Did see cards and had ECHO and stress test. Since last visit headaches have improved. Last headache was when she slept the wrong way and got a kink in the neck and had a few headaches for a week a few months ago. Bought some cream and that seemed to help. Otherwise is headache free, on TPM 100mg, did not decrease it. No episodes of syncope. Current Headache treatment Preventative: TPM 100mg Abortive: amerge Medications effective? yes # of doses of abortive medications per month: few Total headache days per month: none Total headache attacks per month: none Headache free days: Yes Duration of attacks: All day Severity of headaches? Moderate to severe Location: Frontal. Aura: None Accompanying symptoms: photophobia, phonophobia, nausea, vomiting. Quality:throbbing. Worse with activity: No Pain today: 0/10 Triggers: none. Prodrome:none. Tobacco Use: No. Alcohol Use: No Caffeine:Yes: two sodas Water: not much Sleep- variable Prior Therapies TPM Maxalt Tylenol Compazine Candesartan Effexor Buspar Wellbutrin Candesartan The patient's prior records were reviewed including and lab testing, imaging, and procedures done since their last visit with me. Review of symptoms including constitutional, eyes, ENT, neck, respiratory, cardiovascular, GI, , musculoskeletal, hematologic, oncologic, endocrine, and psychiatric categories is unchanged. No new details in the family history or social history were offered by the patient. PAST MEDICAL HISTORY Diagnosis Date Abdominal pain, epigastric Abnormal mammogram 09/14/2016 Acute gastritis without mention of hemorrhage Anxiety Chest pain Class 1 obesity due to excess calories without serious comorbidity with body mass index (BMI) of 34.0 to 34.9 in adult Depression Disability, developmental Enlarged thyroid Gastroesophageal reflux disease with esophagitis without hemorrhage Hypothyroidism Iron deficiency LLQ pain 10/07/2013 Low blood sugar 03/29/2015 Migraines [facility] neurology Obesity Plantar warts Reflux esophagitis Thrombocytosis Urinary retention Pablo Arrington PAST SURGICAL HISTORY Procedure Laterality Date BX OF BREAST; INCISIONAL Left 09/05/2023 COLONOSCOPY 11/28/2021 repeat in 10 years DILATION & CURETTAGE DX&/THER NONOBSTETRIC EGD W/O BRSH SPEC VARICIES INJ 01/30/2022 ESOPHAGOGASTRODUODENOSCOPY TRANSORAL DIAGNOSTIC 07/04/2005 EGD FNA WITH IMAGING Right 09/26/2016 U/S FNA UOQ right breast LIG/TRNSXJ FLP TUBE ABDL/VAG APPR UNI/BI Tubal ligation ALLERGIES Allergen Reactions Bee Pollen Anaphylaxis Adderall [Dextroamp* Itching Amphetamine Itching Imitrex [Sumatripta* Other: See Comments palpitations Current Medications: ferrous sulfate 325 mg (65 mg iron) tablet Take 1 tablet by mouth once daily. folic acid 1 mg tablet Take 1 tablet by mouth once daily. topiramate (TOPAMAX) 25 mg capsule Take 2 capsules by mouth two times a day. sucralfate (CARAFATE) 100 mg/mL suspension TAKE 10ML BY MOUTH TWICE A DAY omeprazole (PRILOSEC) 40 mg capsule Take 1 capsule by mouth once daily. busPIRone (BUSPAR) 5 mg tablet Take 1 tablet by mouth two times a day. levothyroxine (SYNTHROID) 75 mcg tablet Take 1 tablet by mouth once daily. Take on empty stomach. For Thyroid albuterol HFA (VENTOLIN HFA) 90 mcg/actuation inhaler Inhale 2 Puffs as instructed every 4 hours as needed for wheezing/shortness of breath. buPROPion XL (WELLBUTRIN XL) 300 mg 24 hr tablet Take 1 tablet by mouth once daily. loratadine (CLARITIN) 10 mg tablet Take 1 tablet by mouth once daily. fluticasone (FLONASE) 50 mcg/actuation nasal spray Use 2 Sprays in each nostril once daily. Rinse mouth after use. clotrimazole (LOTRIMIN) 1 % cream Apply BID to rash until rash goes away, and then continue for 1 more week. venlafaxine (EFFEXOR) 100 mg tablet Take 1 tablet by mouth two times a day. cyanocobalamin (VITAMIN B-12) 1,000 mcg tab Take 1 tablet by mouth once daily. VITAMIN D-3 50 mcg (2,000 unit) tablet TAKE 2 TABLETS (4000 UNITS) BY MOUTH ONCE DAILY naratriptan (AMERGE) 2.5 mg tablet Take 1 tablet (2.5 mg) by mouth as directed. at the onset of headache; if headache returns or does not fully resolve, the dose may be repeated after 4 hours; do not exceed five(5) mg in 24 hours. NO more than 10 doses in a month. Studies to Review: No New Health Issues: No New Social History: No New Family History: No REVIEW OF SYSTEMS: GENERAL:No weight loss, malaise or fevers. HEENT:no changes to hearing or vision NECK:negative for neck pain, swelling. RESPIRATORY: Negative for cough, wheezing or shortness of breath. CARDIOVASCULAR: Negative for chest pain, leg swelling or palpitations. GASTROINTESTINAL: Negative for abdominal discomfort, blood in stools or black stools or change in bowel habits GENITOURINARY: No history of dysuria, frequency or incontinence MUSKULOSKELETAL: Negative for joint pain or swelling, back pain or muscle pain. SKIN:Negative for lesions, rash, and itching. HEMATOLOGIC/LYMPHATIC/IMMUNOLOGIC:Nega tive for prolonged bleeding, bruising easily or swollen nodes. ENDOCRINE: Negative for cold or heat intolerance, polyuria, polydipsia NEUROLOGIC:See HPI PHYSICAL EXAMINATION: BP 126/80 Pulse 84 Resp 16 Wt 97 kg (213 lb 13.5 oz) LMP 11/29/2023 (Approximate) SpO2 96% BMI 34.52 kg/m General: well appearing, in no acute distress, alert, HEENT: Normocephalic/atraumatic., Skin: Color, texture, turgor normal. No rashes or lesions, Lungs: breathing comfortably, Neurological Examination: Cognition: The patient is alert and oriented times three Lucid and organized in conversation Able to tell detailed medical hx Speech is Normal in fluency volume and clarity Content and Syntax: Normal Comprehension: Normal, able to follow several step commands Cranial Nerves: Pupils are equal and reactive to light. Pupils normal in size Extraocular movements are grossly intact Good saccades and pursuits No nystagmus Hearing intact Good upgaze Visual orozco are full to confrontation. Facial, motor and sensory exam is symmetric Equal v1,V2, V3 Tongue is in midline. No tongue fasciculation. Palate is upgoing bilaterally SCM and trapezius are full. Shoulder shrug intact Normal tone and strength. Normal coordination. DTRs are intact and symmetric bilaterally. Normal gait. Impression: ASSESSMENT/PLAN: 1. Migraine without aura and without status migrainosus, not intractable - ICD9: 346.10, ICD10: G43.009 (primary diagnosis) Patient notes some improvement in her headaches since last appointment, notes that a few months ago she had a kink in her neck that lasted for about a week and she had a daily headache with this, but otherwise is headache free. Compliant with Topamax 100 mg, did not decrease it as discussed previously. Does not need refills at this time. Notes Amerge as an effective abortive which she does get a headache, does need refills of this. No new symptoms that would warrant additional workup, encouraged conservative therapy as well. 2. Syncope and collapse - ICD9: 780.2, ICD10: R55 3. Orthostatic lightheadedness - ICD9: 780.4, ICD10: R42 No further episodes of syncope since last appointment. No significant lightheadedness. Follow with cardiology and had echo done. Did not complete her tilt table test. Encouraged conservative therapy as she does not drink water throughout the day. Patient otherwise doing well, no changes to regimen at this time. Patient was concerned that her being on Depo-Provera for 16 years because her headaches, no knowledge of this causing headaches after she stopped it. Does report chronic leg pain, encouraged her to follow-up with primary for this. Plan: All options for treatment discussed. Preventative: Topamax 100 mg Abortive: Amerge Follow-up: 6 months I spent a total of 30 minutes on the date of the service which included preparing to see the patient, [id number] patient care, completing clinical documentation, obtaining and/or reviewing separately obtained history, performing a medically appropriate examination, counseling and educating the patient/family/caregiver, and ordering medications, tests, or procedures. Kristy Asencio PA-C General Neurology [address] [place] [address]. [id number] Appointment: [phone] documented in this encounter [facility] 05-01-2024 Telephone encounter Note Prescription Refill Information The patient has been identified by name and date of : Yes Caregiver verified no other encounters exist for this prescription request: Yes Caregiver confirmed with patient/requestor that no other refills are due, in the near future, with this provider at this time: Yes The last office visit in the department: 02/04/24 Does the patient have a future office visit with this provider/department: Yes Requested Prescriptions Pending Prescriptions Disp Refills ferrous sulfate 325 mg (65 mg iron) tablet 90 tablet 0 Sig: Take 1 tablet by mouth once daily. folic acid 1 mg tablet 90 tablet 1 Sig: Take 1 tablet by mouth once daily. topiramate (TOPAMAX) 25 mg capsule 360 capsule 1 Sig: Take 2 capsules by mouth two times a day. Ileana Wright LPN May 01, 2024 3:44 PM [facility] 05-01-2024 Miscellaneous Notes Prescription Refill Information The patient has been identified by name and date of : Yes Caregiver verified no other encounters exist for this prescription request: Yes Caregiver confirmed with patient/requestor that no other refills are due, in the near future, with this provider at this time: Yes The last office visit in the department: 02/04/24 Does the patient have a future office visit with this provider/department: Yes Requested Prescriptions Pending Prescriptions Disp Refills ferrous sulfate 325 mg (65 mg iron) tablet 90 tablet 0 Sig: Take 1 tablet by mouth once daily. folic acid 1 mg tablet 90 tablet 1 Sig: Take 1 tablet by mouth once daily. topiramate (TOPAMAX) 25 mg capsule 360 capsule 1 Sig: Take 2 capsules by mouth two times a day. Ileana Wright LPN May 01, 2024 3:44 PM documented in this encounter [facility] 04-24-2024 Note HNO ID: [id number] Author: KEV MANNING OD Service: ? Author Type: TRANSLATOR DEAF Type: Progress Notes Filed: 04/24/2024 09:10 Note Text: 1. Migraine without aura and without status migrainosus, not intractable Ocular health unremarkable Continue medication as prescribed at onset of migraine 2. Presbyopia Recommended +1.25 OTC readers for all near work 3. Optic cupping of both eyes Large C/D Previous OCT: normal Follow-up in 1 year with complete and OCT nerve Kev Manning, OD April 24, 2024 9:[address] [facility] 04-24-2024 History of Present illness Narrative 1. Migraine without aura and without status migrainosus, not intractable Ocular health unremarkable Continue medication as prescribed at onset of migraine 2. Presbyopia Recommended +1.25 OTC readers for all near work 3. Optic cupping of both eyes Large C/D Previous OCT: normal Follow-up in 1 year with complete and OCT nerve Kev Manning, AUNG April 24, 2024 9:09 AM documented in this encounter [facility] 04-24-2024 Instructions Kev Manning, OD - 04/24/2024 8:59 AM EDT Use +1.25 [id number] reading glasses for near work including color by numbers documented in this encounter [facility] 04-24-2024 Note HNO ID: [id number] Author: DEYA MARTINEZ MA Service: ? Author Type: Veterinary Receptionist Type: Progress Notes Filed: 04/24/2024 08:29 Note Text: POPULATION HEALTH NAVIGATION OUTREACH Action/FYI Letter received and sent to be mailed. Navigation Signature: Deya Martinez MA April 24, 2024 8:[address] [facility] 04-16-2024 Note HNO ID: [id number] Author: BRADLEY BASILIO MA Service: ? Author Type: Veterinary Receptionist Type: Progress Notes Filed: 04/16/2024 09:35 Note Text: POPULATION HEALTH NAVIGATION OUTREACH Action/FYI Patient is on [facility] CURRENT ROSTER Workbench list for below and needs appointment to address: Anxiety Screening Influenza Vaccine(1) Covid-19 Vaccine( season) Colorectal Cancer Screening Hemoglobin A1C (%) Date Value 06/05/2023 4.7 04/08/2018 4.7 Patient due for: Colorectal Cancer Screening - FOBT previously ordered Flu Vaccine MyChart Active: No, offered activation N/A Attempted to reach patient, voicemail not set up yet (wireless customer is not available recording), unable to leave message. Sent mychart message. Sent letter Updated notes on upcoming appt to address due care gaps and HCC gap closure Reason for Outreach Care Gap/HCC or Scheduling Wellness Visits Care Gaps due: Colorectal Cancer Screening Flu Vaccine Patient Contacted: Unable or unnecessary to reach patient: Unable to leave message Letter mailed HCC related Updated appointment notes Navigation Signature: Bradley Basilio MA April 16, 2024 7:[address] [facility] 04-16-2024 History of Present illness Narrative POPULATION HEALTH NAVIGATION OUTREACH Action/FYI Patient is on [facility] CURRENT ROSTER Workbench list for below and needs appointment to address: Anxiety Screening Influenza Vaccine(1) Covid-19 Vaccine( season) Colorectal Cancer Screening Hemoglobin A1C (%) Date Value 06/05/2023 4.7 04/08/2018 4.7 Patient due for: Colorectal Cancer Screening - FOBT previously ordered Flu Vaccine [employer] Active: No, offered activation N/A Attempted to reach patient, voicemail not set up yet (wireless customer is not available recording), unable to leave message. Sent [employer] message. Sent letter Updated notes on upcoming appt to address due care gaps and HCC gap closure Reason for Outreach Care Gap/HCC or Scheduling Wellness Visits Care Gaps due: Colorectal Cancer Screening Flu Vaccine Patient Contacted: Unable or unnecessary to reach patient: Unable to leave message Letter mailed HCC related Updated appointment notes Navigation Signature: Bradley Basilio MA April 16, 2024 7:29 AM documented in this encounter [facility] 04-16-2024 Note Patient Outreach (NE TNAV) ---- MAXIMUS BRADLEY ([id number]) 1975 F Date Time Provider Department 04/16/24 BRADLEY BASILIO During your visit today, we recorded the following information about you: Bradley Basilio MA 04/16/2024 9:35 AM Signed POPULATION HEALTH NAVIGATION OUTREACH Action/FYI Patient is on [facility] CURRENT ROSTER Workbench list for below and needs appointment to address: Anxiety Screening Influenza Vaccine(1) Covid-19 Vaccine( season) Colorectal Cancer Screening Hemoglobin A1C (%) Date Value 06/05/2023 4.7 04/08/2018 4.7 Patient due for: Colorectal Cancer Screening - FOBT previously ordered Flu Vaccine [employer] Active: No, offered activation N/A Attempted to reach patient, voicemail not set up yet (wireless customer is not available recording), unable to leave message. Sent [employer] message. Sent letter Updated notes on upcoming appt to address due care gaps and HCC gap closure Reason for Outreach Care Gap/HCC or Scheduling Wellness Visits Care Gaps due: Colorectal Cancer Screening Flu Vaccine Patient Contacted: Unable or unnecessary to reach patient: Unable to leave message Letter mailed HCC related Updated appointment notes Navigation Signature: Bradley Basilio MA April 16, 2024 7:29 AM Deya Martinez MA 04/24/2024 8:29 AM Signed POPULATION HEALTH NAVIGATION OUTREACH Action/FYI Letter received and sent to be mailed. Navigation Signature: Deya Martinez MA April 24, 2024 8:29 AM Allergies As of Date: 04/16/2024 Noted Allergy Reaction BEE POLLEN 01/23/2019 10 - Anaphylaxis ADDERALL (DEXTROAMPHETAMINE-AMPHE*02/22/2015 9 - Itching AMPHETAMINE 12/13/2016 9 - Itching IMITREX (SUMATRIPTAN) 01/11/2015 14 - Other: See Comments Comments: palpitations Date Reviewed: 02/19/2024 Reviewed by: Maureen Sandy LPN - Fully Assessed Reason for Visit: Population Health Navigation Outreach [3910] Cmt: Jose Bhatt - Dominic PCSA Prescriptions as of 04/24/2024 - sucralfate (CARAFATE) 100 mg/mL suspension TAKE 10ML BY MOUTH TWICE A DAY - omeprazole (PRILOSEC) 40 mg capsule Take 1 capsule by mouth once daily. - busPIRone (BUSPAR) 5 mg tablet Take 1 tablet by mouth two times a day. - levothyroxine (SYNTHROID) 75 mcg tablet Take 1 tablet by mouth once daily. Take on empty stomach. For Thyroid - ferrous sulfate 325 mg (65 mg iron) tablet Take 1 tablet by mouth once daily. - albuterol HFA (VENTOLIN HFA) 90 mcg/actuation inhaler Inhale 2 Puffs as instructed every 4 hours as needed for wheezing/shortness of breath. - buPROPion XL (WELLBUTRIN XL) 300 mg 24 hr tablet Take 1 tablet by mouth once daily. - loratadine (CLARITIN) 10 mg tablet Take 1 tablet by mouth once daily. - fluticasone (FLONASE) 50 mcg/actuation nasal spray Use 2 Sprays in each nostril once daily. Rinse mouth after use. - clotrimazole (LOTRIMIN) 1 % cream Apply BID to rash until rash goes away, and then continue for 1 more week. - folic acid 1 mg tablet take 1 tablet by mouth daily - venlafaxine (EFFEXOR) 100 mg tablet Take 1 tablet by mouth two times a day. - topiramate (TOPAMAX) 25 mg capsule Take 2 capsules by mouth two times a day. - cyanocobalamin (VITAMIN B-12) 1,000 mcg tab Take 1 tablet by mouth once daily. - VITAMIN D-3 50 mcg (2,000 unit) tablet TAKE 2 TABLETS (4000 UNITS) BY MOUTH ONCE DAILY - naratriptan (AMERGE) 2.5 mg tablet Take 1 tablet (2.5 mg) by mouth as directed. at the onset of headache; if headache returns or does not fully resolve, the dose may be repeated after 4 hours; do not exceed five(5) mg in 24 hours. NO more than 10 doses in a month. Problem List As Of Date 04/16/2024 Noted Resolved Abdominal pain, epigastric [R10.13] 07/22/2013 Hypothyroidism [E03.9] 12/06/2010 Enlarged thyroid [E04.9] 12/06/2010 Diarrhea [R19.7] 07/22/2013 01/11/2015 Menorrhagia [N92.0] 10/07/2013 Migraines [G43.909] 01/04/2015 01/11/2015 Essential hypertension [I10] 01/04/2015 Migraine headache without aura [G43.009] 01/11/2015 Low blood sugar [E16.2] 03/29/2015 12/30/2019 Depression [F32.A] Moderate episode of recurrent major depressive *07/17/2023 Claudication (HCC) [I73.9] 07/17/2023 07/17/2023 Obesity [E66.9] 01/14/2024 Iron deficiency [E61.1] Letter Text Encounter Status:Closed by BRADLEY BASILIO on 04/16/[address] [facility] 03-11-2024 Telephone encounter Note Patient phones requesting refills as follows: Requested Prescriptions Pending Prescriptions Disp Refills sucralfate (CARAFATE) 100 mg/mL suspension [Pharmacy Med Name: Sucralfate 1GM/10ML SUSP] 828 mL 0 Sig: TAKE 10ML BY MOUTH TWICE A DAY Please review and advise. José Manuel Mcclure MA [facility] 03-11-2024 Miscellaneous Notes Patient phones requesting refills as follows: Requested Prescriptions Pending Prescriptions Disp Refills sucralfate (CARAFATE) 100 mg/mL suspension [Pharmacy Med Name: Sucralfate 1GM/10ML SUSP] 828 mL 0 Sig: TAKE 10ML BY MOUTH TWICE A DAY Please review and advise. José Manuel Mcclure MA documented in this encounter [facility] 02-29-2024 Telephone encounter Note The patient has been identified by name and date of : Yes Caregiver verified no other encounters exist for this prescription request: Yes Caregiver confirmed with patient/requestor that no other refills are due, in the near future, with this provider at this time: Yes The last office visit in the department: 02/04/2024 Does the patient have a future office visit with this provider/department: Yes 08/06/2024 Requested Prescriptions Pending Prescriptions Disp Refills omeprazole (PRILOSEC) 40 mg capsule 90 capsule 1 Sig: Take 1 capsule by mouth once daily. busPIRone (BUSPAR) 5 mg tablet 180 tablet 1 Sig: Take 1 tablet by mouth two times a day. levothyroxine (SYNTHROID) 75 mcg tablet 90 tablet 1 Sig: Take 1 tablet by mouth once daily. Take on empty stomach. For Thyroid Consuelo Arreguin RN [facility] 02-29-2024 Miscellaneous Notes The patient has been identified by name and date of : Yes Caregiver verified no other encounters exist for this prescription request: Yes Caregiver confirmed with patient/requestor that no other refills are due, in the near future, with this provider at this time: Yes The last office visit in the department: 02/04/2024 Does the patient have a future office visit with this provider/department: Yes 08/06/2024 Requested Prescriptions Pending Prescriptions Disp Refills omeprazole (PRILOSEC) 40 mg capsule 90 capsule 1 Sig: Take 1 capsule by mouth once daily. busPIRone (BUSPAR) 5 mg tablet 180 tablet 1 Sig: Take 1 tablet by mouth two times a day. levothyroxine (SYNTHROID) 75 mcg tablet 90 tablet 1 Sig: Take 1 tablet by mouth once daily. Take on empty stomach. For Thyroid Consuelo Arreguin RN documented in this encounter [facility] 02-29-2024 Telephone encounter Note Phoned patient went over results, notes from Dr Hsu with understanding. Aware rx sent to pharmacy. [facility] 02-29-2024 Miscellaneous Notes Phoned patient went over results, notes from Dr Hsu with understanding. Aware rx sent to pharmacy. Anemia has resolved. Platelet count is still high without other abnormal cell lines. Iron level is low. Recommend starting ferrous sulfate daily to improve iron levels and platelet count. Recheck labs in 1-2 months. Will check FOBT to rule out GI bleed as possible cause for iron deficiency. Please notify the office with any other bleeding or bruising symptoms. documented in this encounter [facility] 02-28-2024 Telephone encounter Note Anemia has resolved. Platelet count is still high without other abnormal cell lines. Iron level is low. Recommend starting ferrous sulfate daily to improve iron levels and platelet count. Recheck labs in 1-2 months. Will check FOBT to rule out GI bleed as possible cause for iron deficiency. Please notify the office with any other bleeding or bruising symptoms. [facility] 02-19-2024 Note HNO ID: [id number] Author: BRITTANI DELGADO MA Service: ? Author Type: Veterinary Receptionist Type: Progress Notes Filed: 02/19/2024 14:47 Note Text: Per Maximus Ochoa was provided with original powersteps, size 9, and instructed/educated in its application, wear, and care. All questions were answered, and patient was able to demonstrate competence with the necessary skills to utilize the above equipment. Brittani Delgado MA [facility] 02-19-2024 History of Present illness Narrative Per Maximus Ochoa was provided with original powersteps, size 9, and instructed/educated in its application, wear, and care. All questions were answered, and patient was able to demonstrate competence with the necessary skills to utilize the above equipment. Brittani Delgado MA Images from the original note were not included. Consultation requested by Dr. Hsu for an opinion regarding wart. My final recommendations will be communicated back to the requesting physician by way of shared Medical record or letter to requesting physician via US mail. Initial Podiatric Office Visit: Chief Complaint: This 48 year old female who presents with chief complaint:wart to b/l foot HPI Patient presents to clinic for evaluation of b/l feet Complains of warts to b/l 5th metatarsal Complains of pain whenever ambulatory. Has tried cryotherapy by her primray care provider but this did not work Here do discuss options. PAIN EVALUATION 02/19/2024 1325 Pain Level: 5 Pain Location: Other: See Comment bilateral feet Description: Sore Duration Units: Years Frequency: Intermittent Intervention/Comfort measure: Reposition;Relaxation Hemoglobin A1C (%) Date Value 06/05/2023 4.7 04/08/2018 4.7 03/29/2015 4.9 PCP: Leny Hsu MD PAST MEDICAL HISTORY No date: Abdominal pain, epigastric 09/14/2016: Abnormal mammogram No date: Acute gastritis without mention of hemorrhage No date: Anxiety No date: Chest pain No date: Class 1 obesity due to excess calories without serious comorbidity with body mass index (BMI) of 34.0 to 34.9 in adult No date: Depression No date: Disability, developmental No date: Enlarged thyroid No date: Gastroesophageal reflux disease with esophagitis without hemorrhage No date: Hypothyroidism 10/07/2013: LLQ pain 03/29/2015: Low blood sugar No date: Migraines Comment: [facility] No date: Obesity No date: Plantar warts No date: Reflux esophagitis No date: Thrombocytosis No date: Urinary retention Comment: Pablo Arrington Current Outpatient Medications Medication Sig albuterol HFA (VENTOLIN HFA) 90 mcg/actuation inhaler Inhale 2 Puffs as instructed every 4 hours as needed for wheezing/shortness of breath. naproxen (NAPROSYN) 500 mg tablet Take 1 tablet by mouth two times a day as needed for up to 15 days. Take with food. buPROPion XL (WELLBUTRIN XL) 300 mg 24 hr tablet Take 1 tablet by mouth once daily. loratadine (CLARITIN) 10 mg tablet Take 1 tablet by mouth once daily. sucralfate (CARAFATE) 100 mg/mL suspension TAKE 10ML BY MOUTH TWICE A DAY fluticasone (FLONASE) 50 mcg/actuation nasal spray Use 2 Sprays in each nostril once daily. Rinse mouth after use. clotrimazole (LOTRIMIN) 1 % cream Apply BID to rash until rash goes away, and then continue for 1 more week. folic acid 1 mg tablet take 1 tablet by mouth daily venlafaxine (EFFEXOR) 100 mg tablet Take 1 tablet by mouth two times a day. topiramate (TOPAMAX) 25 mg capsule Take 2 capsules by mouth two times a day. cyanocobalamin (VITAMIN B-12) 1,000 mcg tab Take 1 tablet by mouth once daily. omeprazole (PRILOSEC) 40 mg capsule Take 1 capsule by mouth once daily. busPIRone (BUSPAR) 5 mg tablet Take 1 tablet by mouth two times a day. levothyroxine (SYNTHROID) 75 mcg tablet Take 1 tablet by mouth once daily. Take on empty stomach. For Thyroid VITAMIN D-3 50 mcg (2,000 unit) tablet TAKE 2 TABLETS (4000 UNITS) BY MOUTH ONCE DAILY naratriptan (AMERGE) 2.5 mg tablet Take 1 tablet (2.5 mg) by mouth as directed. at the onset of headache; if headache returns or does not fully resolve, the dose may be repeated after 4 hours; do not exceed five(5) mg in 24 hours. NO more than 10 doses in a month. No current facility-administered medications for this visit. ALLERGIES Allergen Reactions Bee Pollen Anaphylaxis Adderall [Dextroamp* Itching Amphetamine Itching Imitrex [Sumatripta* Other: See Comments palpitations PAST SURGICAL HISTORY 09/05/2023: BX OF BREAST; INCISIONAL; Left 11/28/2021: COLONOSCOPY Comment: repeat in 10 years No date: DILATION & CURETTAGE DX&/THER NONOBSTETRIC 01/30/2022: EGD W/O [facility] SPEC VARICIES INJ 07/04/2005: ESOPHAGOGASTRODUODENOSCOPY TRANSORAL DIAGNOSTIC Comment: EGD 09/26/2016: FNA WITH IMAGING; Right Comment: U/S FNA UOQ right breast No date: LIG/TRNSXJ FLP TUBE ABDL/VAG APPR UNI/BI Comment: Tubal ligation FAMILY HISTORY Adopted: Yes Problem Relation Age of Onset Cancer Father lung Heart disease Sister No Known Problems Brother No Known Problems Brother other (Liver Disease) Paternal Grandmother Migraines Paternal Grandmother Cancer Paternal Grandfather Lung No Known Problems Son Cancer Paternal Uncle Throat No Ocular Disease No Family History Social History Tobacco Use Smoking status: Former Packs/day: 1 Types: Cigarettes Smokeless tobacco: Former Quit date: 04/25/2015 Vaping Use Vaping Use: Never used Substance Use Topics Alcohol use: Yes Comment: less than weekly use Drug use: Never REVIEW OF SYSTEMS GENERAL: Negative for Malaise, significant weight loss, fever RESPIRATORY: Negative for cough, wheezing and shortness of breath CARDIOVASCULAR: Negative for chest pain, leg swelling and palpitations GI: Negative for abdominal discomfort, blood in stools or black stools and change in bowel habits : Negative for dysuria, frequency and incontinence MUSCULOSKELETAL: Negative for joint pain or swelling, back pain, and muscle pain. SKIN: Negative for lesions, rash, and itching. HEMATOLOGY/LYMPHOLOGY Negative for prolonged bleeding, bruising easily, and swollen nodes. ENDOCRINE: Negative for cold or heat intolerance, polyuria, polydipsia and goiter. NEURO: negative Physical Exam: Constitutional: Pt is a well developed 48 year old female who is alert, oriented and cooperative Eyes: Following during examination. No redness or drainage. Respiratory: RR normal and nonlabored. Even breathing. No evidence of distress or shortness of breath. Psychology: Patient is engaged during conversation. Normal affect and mood. Does not appear depressed or anxious during encounter. Vascular: Dorsalis pedis and posterior tibial pulses palpable as b/l Capillary Fill time < 5 seconds to digits 1-5 b/l Skin temperature warm to warm proximal to distal b/l Hair growth present to digits Neurological: intact light touch/epicritic sensation b/l intact protective sensation no significant neurological deficits Dermatological: Nails 1-5 b/l appear normal. Webspaces clean and dry 1-4 b/l. Skin appears well hydrated and supple. good color, texture, turgor. No open lesions present. Callus to b/l 5th metatarsal. On close inspection and upon debridement with 15 blade, skin lines are intact without bleeding. Musculoskeletal/Orthopaedic: Patient has pain to palpation of callus Radiographs: n/a ASSESSMENT: (L84) Callus of foot (primary encounter diagnosis) PLAN: 1. History and physical examination performed. 2. Callus was debrided to left 5th metatarsal with dremmel as callus was minimal. No wart to this area 3. Skin lesion to right 5th metatarsal was debrided with 15 blade. It appears more of callus than wart. Will treat with inserts and donut hole padding 4. Can use pummice stone as needed Efrain Rollins DPM Podiatry [address] [facility] [address] Dept: [phone] Dept AMB ROOMING INTAKE FLOWSHEET DATA Pain Pain Level: 5 Pain Location: Other: See Comment (bilateral feet) Description: Sore Duration Units: Years Frequency: Intermittent Intervention/Comfort measure: Reposition, Relaxation Patient presents with: Right Foot - New, Pain, Wart Left Foot - New, Pain, Wart Maureen Sandy LPN documented in this encounter [facility] 02-19-2024 Instructions Efrain Rollins - 02/19/2024 1:55 PM EDT Powerstep Original Full length. Can purchase at [employer] and boots,shoes and more here in [place], [employer] in [place] or [place]. Also can find in [place] in [facility]. Powersteps can also be purchased online, starting around $45.00 If you have a metatarsal or dancer pad for your feet apply the pad directly to the insole so you can interchange between your shoes. Find a shoe with a removable insole and take this out and replace with your powerstep insole. Always bring powersteps with you when shopping for shoes so that you can make sure that everything fits well together You have callus beneath the 5th metatarsal head (just behind 5th toe) You can use inserts and offload these with donut hole pad Color the area of callus with lipstick Step on insert Place donut hole on insert at area of color transfer. documented in this encounter [facility] 02-19-2024 Note HNO ID: [id number] Author: EFRAIN ROLLINS, ? Service: ? Author Type: Physician Type: Progress Notes Filed: 02/19/2024 14:47 Note Text: Consultation requested by Dr. Hsu for an opinion regarding wart. My final recommendations will be communicated back to the requesting physician by way of shared Medical record or letter to requesting physician via US mail. Initial Podiatric Office Visit: Chief Complaint: This 48 year old female who presents with chief complaint:wart to b/l foot HPI Patient presents to clinic for evaluation of b/l feet Complains of warts to b/l 5th metatarsal Complains of pain whenever ambulatory. Has tried cryotherapy by her primray care provider but this did not work Here do discuss options. PAIN EVALUATION 02/19/2024 1325 Pain Level: 5 Pain Location: Other: See Comment bilateral feet Description: Sore Duration Units: Years Frequency: Intermittent Intervention/Comfort measure: Reposition;Relaxation Hemoglobin A1C (%) Date Value 06/05/2023 4.7 04/08/2018 4.7 03/29/2015 4.9 PCP: Leny Hsu MD PAST MEDICAL HISTORY No date: Abdominal pain, epigastric 09/14/2016: Abnormal mammogram No date: Acute gastritis without mention of hemorrhage No date: Anxiety No date: Chest pain No date: Class 1 obesity due to excess calories without serious comorbidity with body mass index (BMI) of 34.0 to 34.9 in adult No date: Depression No date: Disability, developmental No date: Enlarged thyroid No date: Gastroesophageal reflux disease with esophagitis without hemorrhage No date: Hypothyroidism 10/07/2013: LLQ pain 03/29/2015: Low blood sugar No date: Migraines Comment: [facility] No date: Obesity No date: Plantar warts No date: Reflux esophagitis No date: Thrombocytosis No date: Urinary retention Comment: Pablo Arrington Current Outpatient Medications Medication Sig albuterol HFA (VENTOLIN HFA) 90 mcg/actuation inhaler Inhale 2 Puffs as instructed every 4 hours as needed for wheezing/shortness of breath. naproxen (NAPROSYN) 500 mg tablet Take 1 tablet by mouth two times a day as needed for up to 15 days. Take with food. buPROPion XL (WELLBUTRIN XL) 300 mg 24 hr tablet Take 1 tablet by mouth once daily. loratadine (CLARITIN) 10 mg tablet Take 1 tablet by mouth once daily. sucralfate (CARAFATE) 100 mg/mL suspension TAKE 10ML BY MOUTH TWICE A DAY fluticasone (FLONASE) 50 mcg/actuation nasal spray Use 2 Sprays in each nostril once daily. Rinse mouth after use. clotrimazole (LOTRIMIN) 1 % cream Apply BID to rash until rash goes away, and then continue for 1 more week. folic acid 1 mg tablet take 1 tablet by mouth daily venlafaxine (EFFEXOR) 100 mg tablet Take 1 tablet by mouth two times a day. topiramate (TOPAMAX) 25 mg capsule Take 2 capsules by mouth two times a day. cyanocobalamin (VITAMIN B-12) 1,000 mcg tab Take 1 tablet by mouth once daily. omeprazole (PRILOSEC) 40 mg capsule Take 1 capsule by mouth once daily. busPIRone (BUSPAR) 5 mg tablet Take 1 tablet by mouth two times a day. levothyroxine (SYNTHROID) 75 mcg tablet Take 1 tablet by mouth once daily. Take on empty stomach. For Thyroid VITAMIN D-3 50 mcg (2,000 unit) tablet TAKE 2 TABLETS (4000 UNITS) BY MOUTH ONCE DAILY naratriptan (AMERGE) 2.5 mg tablet Take 1 tablet (2.5 mg) by mouth as directed. at the onset of headache; if headache returns or does not fully resolve, the dose may be repeated after 4 hours; do not exceed five(5) mg in 24 hours. NO more than 10 doses in a month. No current facility-administered medications for this visit. ALLERGIES Allergen Reactions Bee Pollen Anaphylaxis Adderall [Dextroamp* Itching Amphetamine Itching Imitrex [Sumatripta* Other: See Comments palpitations PAST SURGICAL HISTORY 09/05/2023: BX OF BREAST; INCISIONAL; Left 11/28/2021: COLONOSCOPY Comment: repeat in 10 years No date: DILATION AND CURETTAGE DXAND/THER NONOBSTETRIC 01/30/2022: EGD W/O [facility] SPEC VARICIES INJ 07/04/2005: ESOPHAGOGASTRODUODENOSCOPY TRANSORAL DIAGNOSTIC Comment: EGD 09/26/2016: FNA WITH IMAGING; Right Comment: U/S FNA UOQ right breast No date: LIG/TRNSXJ FLP TUBE ABDL/VAG APPR UNI/BI Comment: Tubal ligation FAMILY HISTORY Adopted: Yes Problem Relation Age of Onset Cancer Father lung Heart disease Sister No Known Problems Brother No Known Problems Brother other (Liver Disease) Paternal Grandmother Migraines Paternal Grandmother Cancer Paternal Grandfather Lung No Known Problems Son Cancer Paternal Uncle Throat No Ocular Disease No Family History Social History Tobacco Use Smoking status: Former Packs/day: 1 Types: Cigarettes Smokeless tobacco: Former Quit date: 04/25/2015 Vaping Use Vaping Use: Never used Substance Use Topics Alcohol use: Yes Comment: less than weekly use Drug use: Never REVIEW OF SYSTEMS GENERAL: Negative for Malaise, significant weight loss, (more content not included)... [facility] 02-19-2024 Note HNO ID: [id number] Author: MAUREEN SANDY LPN Service: ? Author Type: LICENSED NURSE Type: Progress Notes Filed: 02/19/2024 14:47 Note Text: AMB ROOMING INTAKE FLOWSHEET DATA Pain Pain Level: 5 Pain Location: Other: See Comment (bilateral feet) Description: Sore Duration Units: Years Frequency: Intermittent Intervention/Comfort measure: Reposition, Relaxation Patient presents with: Right Foot - New, Pain, Wart Left Foot - New, Pain, Wart Maureen Sandy LPN [facility] 02-05-2024 Telephone encounter Note The patient has been identified by name and date of : Yes Caregiver verified no other encounters exist for this prescription request: Yes Caregiver confirmed with patient/requestor that no other refills are due, in the near future, with this provider at this time: Yes The last office visit in the department: 02/04/2024 Does the patient have a future office visit with this provider/department: Yes 08/06/2024 Requested Prescriptions Pending Prescriptions Disp Refills albuterol HFA (VENTOLIN HFA) 90 mcg/actuation inhaler 18 g 4 Sig: Inhale 2 Puffs as instructed every 4 hours as needed for wheezing/shortness of breath. Maya Hernandez RN February 05, 2024 2:41 PM [facility] 02-05-2024 Miscellaneous Notes The patient has been identified by name and date of : Yes Caregiver verified no other encounters exist for this prescription request: Yes Caregiver confirmed with patient/requestor that no other refills are due, in the near future, with this provider at this time: Yes The last office visit in the department: 02/04/2024 Does the patient have a future office visit with this provider/department: Yes 08/06/2024 Requested Prescriptions Pending Prescriptions Disp Refills albuterol HFA (VENTOLIN HFA) 90 mcg/actuation inhaler 18 g 4 Sig: Inhale 2 Puffs as instructed every 4 hours as needed for wheezing/shortness of breath. Maya Hernandez RN February 05, 2024 2:41 PM documented in this encounter [facility] 02-05-2024 Telephone encounter Note Pt notified of results & instructions to repeat labs, pt voiced understanding. Ruthie Mcgill LPN [facility] 02-05-2024 Miscellaneous Notes Pt notified of results & instructions to repeat labs, pt voiced understanding. Ruthie Mcgill LPN Attempted call to patient- recording states patient unavailable and to call again later. No VM available. Attempt call back later. Ruthie Burnham LPN Blood work shows mild anemia with high platelet counts. Recommend obtaining additional blood work to rule out iron deficiency, GI bleed, and inflammation as possible causes. Come in for repeat labs this week. Other labs unremarkable. documented in this encounter [facility] 02-05-2024 Telephone encounter Note Attempted call to patient- recording states patient unavailable and to call again later. No VM available. Attempt call back later. Ruthie Burnham LPN [facility] 02-05-2024 Telephone encounter Note Blood work shows mild anemia with high platelet counts. Recommend obtaining additional blood work to rule out iron deficiency, GI bleed, and inflammation as possible causes. Come in for repeat labs this week. Other labs unremarkable. [facility] 02-04-2024 History of Present illness Narrative Chief Complaint Patient presents with: Pain: Left arm pain c/o from last visit. HPI Maximus Bradley is a 48 year old female who presents here today for Above Complaints.. Patient complaining today of left elbow and forearm pain which stared about 6-7 weeks ago. Pain described as intermittent aching, currently 0/10. Occurs with lifting more than 10 lbs and with elbow flexion. States that she was evaluated at [facility] on 01/16 and they obtained xray which was normal and they started her on Naproxen BID which has not helped with pain. Denies fall/injury, bruising, swelling, erythema, fever/chills, weakness, numbness/tingling. Feels like symptoms have been stable. Patient is left handed. Past medical history, appointments, medications, allergies reviewed. Previous Medical History PAST MEDICAL HISTORY Diagnosis Date Abdominal pain, epigastric Abnormal mammogram 09/14/2016 Acute gastritis without mention of hemorrhage Anxiety Chest pain Class 1 obesity due to excess calories without serious comorbidity with body mass index (BMI) of 34.0 to 34.9 in adult Depression Disability, developmental Enlarged thyroid Gastroesophageal reflux disease with esophagitis without hemorrhage Hypothyroidism LLQ pain 10/07/2013 Low blood sugar 03/29/2015 Migraines [facility] neurolog[facility] Obesity Plantar warts Reflux esophagitis Urinary retention Pablo Arrington Previous Surgical History PAST SURGICAL HISTORY Procedure Laterality Date BX OF BREAST; INCISIONAL Left 09/05/2023 COLONOSCOPY 11/28/2021 repeat in 10 years DILATION & CURETTAGE DX&/THER NONOBSTETRIC EGD W/O BRSH SPEC VARICIES INJ 01/30/2022 ESOPHAGOGASTRODUODENOSCOPY TRANSORAL DIAGNOSTIC 07/04/2005 EGD FNA WITH IMAGING Right 09/26/2016 U/S FNA UOQ right breast LIG/TRNSXJ FLP TUBE ABDL/VAG APPR UNI/BI Tubal ligation Family History FAMILY HISTORY Adopted: Yes Problem Relation Age of Onset Cancer Father lung Heart disease Sister No Known Problems Brother No Known Problems Brother other (Liver Disease) Paternal Grandmother Migraines Paternal Grandmother Cancer Paternal Grandfather Lung No Known Problems Son Cancer Paternal Uncle Throat No Ocular Disease No Family History Patient Allergies ALLERGIES Allergen Reactions Bee Pollen Anaphylaxis Adderall [Dextroamp* Itching Amphetamine Itching Imitrex [Sumatripta* Other: See Comments palpitations Current Medications Current Outpatient Medications on File Prior to Visit Medication Sig buPROPion XL (WELLBUTRIN XL) 300 mg 24 hr tablet Take 1 tablet by mouth once daily. loratadine (CLARITIN) 10 mg tablet Take 1 tablet by mouth once daily. sucralfate (CARAFATE) 100 mg/mL suspension TAKE 10ML BY MOUTH TWICE A DAY fluticasone (FLONASE) 50 mcg/actuation nasal spray Use 2 Sprays in each nostril once daily. Rinse mouth after use. clotrimazole (LOTRIMIN) 1 % cream Apply BID to rash until rash goes away, and then continue for 1 more week. folic acid 1 mg tablet take 1 tablet by mouth daily venlafaxine (EFFEXOR) 100 mg tablet Take 1 tablet by mouth two times a day. topiramate (TOPAMAX) 25 mg capsule Take 2 capsules by mouth two times a day. cyanocobalamin (VITAMIN B-12) 1,000 mcg tab Take 1 tablet by mouth once daily. omeprazole (PRILOSEC) 40 mg capsule Take 1 capsule by mouth once daily. albuterol HFA (VENTOLIN HFA) 90 mcg/actuation inhaler Inhale 2 Puffs as instructed every 4 hours as needed for wheezing/shortness of breath. busPIRone (BUSPAR) 5 mg tablet Take 1 tablet by mouth two times a day. levothyroxine (SYNTHROID) 75 mcg tablet Take 1 tablet by mouth once daily. Take on empty stomach. For Thyroid VITAMIN D-3 50 mcg (2,000 unit) tablet TAKE 2 TABLETS (4000 UNITS) BY MOUTH ONCE DAILY naratriptan (AMERGE) 2.5 mg tablet Take 1 tablet (2.5 mg) by mouth as directed. at the onset of headache; if headache returns or does not fully resolve, the dose may be repeated after 4 hours; do not exceed five(5) mg in 24 hours. NO more than 10 doses in a month. No current facility-administered medications on file prior to visit. Social History Social History Tobacco Use Smoking status: Former Packs/day: 1 Types: Cigarettes Smokeless tobacco: Former Quit date: 04/25/2015 Vaping Use Vaping Use: Never used Substance Use Topics Alcohol use: Yes Comment: less than weekly use Drug use: Never Review of Symptoms REVIEW OF SYSTEMS See HPI EXAM: BP 128/76 Pulse 84 Resp 16 Wt 97 kg (213 lb 12.8 oz) LMP 11/29/2023 (Approximate) SpO2 98% BMI 34.51 kg/m General Appearance: Well appearing, alert, in no acute distress, well-hydrated, well nourished.. Skin: Skin color, texture, turgor normal, no suspicious rashes or lesions. Musculoskeletal: No joint swelling, deformity, or tenderness. 5/5 strength of left elbow. Normal ROM. Positive for TTP over lateral epicondyle with resisted wrist extension. Health Maintenance List Anxiety Screening Never done BP Controlled (<130/80) due on 08/15/2023 Mammogram Screening due on 07/25/2024 Hepatitis B Vaccine(1 of 3 - 19+ 3-dose series) due on 01/13/2025 Covid-19 Vaccine( - season) due on 01/13/2025 Influenza Vaccine(1) due on 03/09/2024 Annual PCP Team Chronic Disease Visit due on 01/13/2025 Cervical Cancer Screening due on 07/28/2025 Lipid Screening due on 09/16/2025 Diabetes Screening due on 07/12/2026 DTaP,Tdap,Td Vaccine(2 - Td or Tdap) due on 10/01/2029 Colorectal Cancer Screening due on 11/29/2031 Hepatitis C Screening Completed HIV Screening Completed ASSESSMENT/PLAN: 1. Left tennis elbow - ICD9: 726.32, ICD10: M77.12 Symptoms consistent with tennis elbow. Discussed rest, ice, NSAIDs, home exercises. 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 Call if not improving in 2-3 weeks on this regimen and would refer to PT. Leny Hsu MD documented in this encounter [facility] 02-04-2024 Note HNO ID: [id number] Author: LENY HSU MD Service: ? Author Type: Physician Type: Progress Notes Filed: 02/04/2024 12:24 Note Text: Chief Complaint Patient presents with: Pain: Left arm pain c/o from last visit. HPI Maximus Bradley is a 48 year old female who presents here today for Above Complaints.. Patient complaining today of left elbow and forearm pain which stared about 6-7 weeks ago. Pain described as intermittent aching, currently 0/10. Occurs with lifting more than 10 lbs and with elbow flexion. States that she was evaluated at [facility] on 01/16 and they obtained xray which was normal and they started her on Naproxen BID which has not helped with pain. Denies fall/injury, bruising, swelling, erythema, fever/chills, weakness, numbness/tingling. Feels like symptoms have been stable. Patient is left handed. Past medical history, appointments, medications, allergies reviewed. Previous Medical History PAST MEDICAL HISTORY Diagnosis Date Abdominal pain, epigastric Abnormal mammogram 09/14/2016 Acute gastritis without mention of hemorrhage Anxiety Chest pain Class 1 obesity due to excess calories without serious comorbidity with body mass index (BMI) of 34.0 to 34.9 in adult Depression Disability, developmental Enlarged thyroid Gastroesophageal reflux disease with esophagitis without hemorrhage Hypothyroidism LLQ pain 10/07/2013 Low blood sugar 03/29/2015 Migraines [facility] Obesity Plantar warts Reflux esophagitis Urinary retention Pabol Arrington Previous Surgical History PAST SURGICAL HISTORY Procedure Laterality Date BX OF BREAST; INCISIONAL Left 09/05/2023 COLONOSCOPY 11/28/2021 repeat in 10 years DILATION AND CURETTAGE DXAND/THER NONOBSTETRIC EGD W/O BRSH SPEC VARICIES INJ 01/30/2022 ESOPHAGOGASTRODUODENOSCOPY TRANSORAL DIAGNOSTIC 07/04/2005 EGD FNA WITH IMAGING Right 09/26/2016 U/S FNA UOQ right breast LIG/TRNSXJ FLP TUBE ABDL/VAG APPR UNI/BI Tubal ligation Family History FAMILY HISTORY Adopted: Yes Problem Relation Age of Onset Cancer Father lung Heart disease Sister No Known Problems Brother No Known Problems Brother other (Liver Disease) Paternal Grandmother Migraines Paternal Grandmother Cancer Paternal Grandfather Lung No Known Problems Son Cancer Paternal Uncle Throat No Ocular Disease No Family History Patient Allergies ALLERGIES Allergen Reactions Bee Pollen Anaphylaxis Adderall [Dextroamp* Itching Amphetamine Itching Imitrex [Sumatripta* Other: See Comments palpitations Current Medications Current Outpatient Medications on File Prior to Visit Medication Sig buPROPion XL (WELLBUTRIN XL) 300 mg 24 hr tablet Take 1 tablet by mouth once daily. loratadine (CLARITIN) 10 mg tablet Take 1 tablet by mouth once daily. sucralfate (CARAFATE) 100 mg/mL suspension TAKE 10ML BY MOUTH TWICE A DAY fluticasone (FLONASE) 50 mcg/actuation nasal spray Use 2 Sprays in each nostril once daily. Rinse mouth after use. clotrimazole (LOTRIMIN) 1 % cream Apply BID to rash until rash goes away, and then continue for 1 more week. folic acid 1 mg tablet take 1 tablet by mouth daily venlafaxine (EFFEXOR) 100 mg tablet Take 1 tablet by mouth two times a day. topiramate (TOPAMAX) 25 mg capsule Take 2 capsules by mouth two times a day. cyanocobalamin (VITAMIN B-12) 1,000 mcg tab Take 1 tablet by mouth once daily. omeprazole (PRILOSEC) 40 mg capsule Take 1 capsule by mouth once daily. albuterol HFA (VENTOLIN HFA) 90 mcg/actuation inhaler Inhale 2 Puffs as instructed every 4 hours as needed for wheezing/shortness of breath. busPIRone (BUSPAR) 5 mg tablet Take 1 tablet by mouth two times a day. levothyroxine (SYNTHROID) 75 mcg tablet Take 1 tablet by mouth once daily. Take on empty stomach. For Thyroid VITAMIN D-3 50 mcg (2,000 unit) tablet TAKE 2 TABLETS (4000 UNITS) BY MOUTH ONCE DAILY naratriptan (AMERGE) 2.5 mg tablet Take 1 tablet (2.5 mg) by mouth as directed. at the onset of headache; if headache returns or does not fully resolve, the dose may be repeated after 4 hours; do not exceed five(5) mg in 24 hours. NO more than 10 doses in a month. No current facility-administered medications on file prior to visit. Social History Social History Tobacco Use Smoking status: Former Packs/day: 1 Types: Cigarettes Smokeless tobacco: Former Quit date: 04/25/2015 Vaping Use Vaping Use: Never used Substance Use Topics Alcohol use: Yes Comment: less than weekly use Drug use: Never Review of Symptoms REVIEW OF SYSTEMS See HPI EXAM: BP 128/76 Pulse 84 Resp 16 Wt 97 kg (213 lb 12.8 oz) LMP 11/29/2023 (Approximate) SpO2 98% BMI 34.51 kg/m? General Appearance: Well appearing, alert, in no acute distress, well-hydrated, well nourished.. Skin: Skin color, texture, turgor normal, no suspicious rashes or lesions. Musculoskeletal: No joint swelling, deformity, (more content not included)... [facility] 01-31-2024 Telephone encounter Note The patient has been identified by name and date of : Yes Pharmacy Caregiver verified no other encounters exist for this prescription request: Yes Caregiver confirmed with patient/requestor that no other refills are due, in the near future, with this provider at this time: Yes The last office visit in the department: 01/14/2024 Does the patient have a future office visit with this provider/department: Yes 02/04/2024 Requested Prescriptions Pending Prescriptions Disp Refills buPROPion XL (WELLBUTRIN XL) 300 mg 24 hr tablet 90 tablet 3 Sig: Take 1 tablet by mouth once daily. loratadine (CLARITIN) 10 mg tablet 30 tablet 5 Sig: Take 1 tablet by mouth once daily. Tamica Gamez LPN January 31, 2024 2:09 PM [facility] 01-31-2024 Miscellaneous Notes The patient has been identified by name and date of : Yes Pharmacy Caregiver verified no other encounters exist for this prescription request: Yes Caregiver confirmed with patient/requestor that no other refills are due, in the near future, with this provider at this time: Yes The last office visit in the department: 01/14/2024 Does the patient have a future office visit with this provider/department: Yes 02/04/2024 Requested Prescriptions Pending Prescriptions Disp Refills buPROPion XL (WELLBUTRIN XL) 300 mg 24 hr tablet 90 tablet 3 Sig: Take 1 tablet by mouth once daily. loratadine (CLARITIN) 10 mg tablet 30 tablet 5 Sig: Take 1 tablet by mouth once daily. Tamica Gamez LPN January 31, 2024 2:09 PM documented in this encounter [facility] 01-31-2024 Telephone encounter Note Patient phones requesting refills as follows: Requested Prescriptions Pending Prescriptions Disp Refills sucralfate (CARAFATE) 100 mg/mL suspension [Pharmacy Med Name: Sucralfate 1GM/10ML SUSP] 828 mL Sig: TAKE 10ML BY MOUTH TWICE A DAY Please review and advise. José Manuel Mcclure MA [facility] 01-31-2024 Miscellaneous Notes Patient phones requesting refills as follows: Requested Prescriptions Pending Prescriptions Disp Refills sucralfate (CARAFATE) 100 mg/mL suspension [Pharmacy Med Name: Sucralfate 1GM/10ML SUSP] 828 mL Sig: TAKE 10ML BY MOUTH TWICE A DAY Please review and advise. José aMnuel Mcclure MA documented in this encounter [facility] 01-25-2024 Telephone encounter Note Pt returned call and given provider's message below with verbalized understanding. [facility] 01-25-2024 Miscellaneous Notes Pt returned call and given provider's message below with verbalized understanding. Phoned patient no voicemail set up, try again later. Patient's echo is normal. Her stress test did not show any signs of heart strain or blockage, but she was not able to get to maximal recommended HR, which lowers its sensitivity. With both tests being normal, I would not recommend further cardiac workup for chest pain unless symptoms persist. Pt had Echo and Stress test completed, results attached below. Scan on 01/23/2024 3:00 PM by ProviderCam PA-C: Stress Test Scan on 01/23/2024 5:21 PM by ProviderCam PA-C: Echo Marya Long MA documented in this encounter [facility] 01-25-2024 Telephone encounter Note Phoned patient no voicemail set up, try again later. [facility] 01-25-2024 Telephone encounter Note Patient's echo is normal. Her stress test did not show any signs of heart strain or blockage, but she was not able to get to maximal recommended HR, which lowers its sensitivity. With both tests being normal, I would not recommend further cardiac workup for chest pain unless symptoms persist. [facility] 01-24-2024 Telephone encounter Note Pt had Echo and Stress test completed, results attached below. Scan on 01/23/2024 3:00 PM by ProviderCam PA-C: Stress Test Scan on 01/23/2024 5:21 PM by ProviderCam PA-C: Echo Marya Long MA [facility] 01-14-2024 Note HNO ID: [id number] Author: LENY HSU MD Service: ? Author Type: Physician Type: Progress Notes Filed: 01/18/2024 11:37 Note Text: Chief Complaint Patient presents with: Follow Up Physical HPI Maximus Bradley is a 48 year old female who presents here today for Above Complaints. Patient without recent hospitalizations or ER visits. Patient evaluated for chest pain about 2 weeks ago. EKG was normal. Stress test and echo are pending. Patient denies any recurrent chest pain since. Patient with history of migraines which is managed by [facility] neurology. Last OV in September reviewed with patient. Getting migraine headaches every other week on Topamax and uses Amerge PRN for breakthrough which works "some of the time". Patient has follow up in 1 month. Hypothyroidism: Tolerating synthroid without side effects. Asymptomatic on current regimen. Due for TSH. Anxiety and depression well controlled on current regimen without side effects. Denies SI/HI, panic symptoms. Not seeing counseling at this time. GERD controlled on omeprazole. Up to date on cancer screening. Refusing vaccinations. Past medical history, appointments, medications, allergies reviewed. Previous Medical History PAST MEDICAL HISTORY Diagnosis Date Abdominal pain, epigastric Abnormal mammogram 09/14/2016 Acute gastritis without mention of hemorrhage Anxiety Chest pain Class 1 obesity due to excess calories without serious comorbidity with body mass index (BMI) of 34.0 to 34.9 in adult Depression Disability, developmental Gastroesophageal reflux disease with esophagitis without hemorrhage Hypothyroidism LLQ pain 10/07/2013 Low blood sugar 03/29/2015 Migraines Plantar warts Reflux esophagitis Urinary retention Pablo Arrington Previous Surgical History PAST SURGICAL HISTORY Procedure Laterality Date BX OF BREAST; INCISIONAL Left 09/05/2023 COLONOSCOPY 11/28/2021 repeat in 10 years DILATION AND CURETTAGE DXAND/THER NONOBSTETRIC EGD W/O BRSH SPEC VARICIES INJ 01/30/2022 ESOPHAGOGASTRODUODENOSCOPY TRANSORAL DIAGNOSTIC 07/04/2005 EGD FNA WITH IMAGING Right 09/26/2016 U/S FNA UOQ right breast LIG/TRNSXJ FLP TUBE ABDL/VAG APPR UNI/BI Tubal ligation Family History FAMILY HISTORY Adopted: Yes Problem Relation Age of Onset Cancer Father lung Heart disease Sister No Known Problems Brother No Known Problems Brother other (Liver Disease) Paternal Grandmother Cancer Paternal Grandfather Lung No Known Problems Son Cancer Paternal Uncle Throat No Ocular Disease No Family History Patient Allergies ALLERGIES Allergen Reactions Bee Pollen Anaphylaxis Adderall [Dextroamp* Itching Amphetamine Itching Imitrex [Sumatripta* Other: See Comments palpitations Current Medications Current Outpatient Medications on File Prior to Visit Medication Sig fluticasone (FLONASE) 50 mcg/actuation nasal spray Use 2 Sprays in each nostril once daily. Rinse mouth after use. clotrimazole (LOTRIMIN) 1 % cream Apply BID to rash until rash goes away, and then continue for 1 more week. sucralfate (CARAFATE) 100 mg/mL suspension TAKE 10ML BY MOUTH TWICE A DAY folic acid 1 mg tablet take 1 tablet by mouth daily venlafaxine (EFFEXOR) 100 mg tablet Take 1 tablet by mouth two times a day. topiramate (TOPAMAX) 25 mg capsule Take 2 capsules by mouth two times a day. cyanocobalamin (VITAMIN B-12) 1,000 mcg tab Take 1 tablet by mouth once daily. omeprazole (PRILOSEC) 40 mg capsule Take 1 capsule by mouth once daily. albuterol HFA (VENTOLIN HFA) 90 mcg/actuation inhaler Inhale 2 Puffs as instructed every 4 hours as needed for wheezing/shortness of breath. busPIRone (BUSPAR) 5 mg tablet Take 1 tablet by mouth two times a day. levothyroxine (SYNTHROID) 75 mcg tablet Take 1 tablet by mouth once daily. Take on empty stomach. For Thyroid VITAMIN D-3 50 mcg (2,000 unit) tablet TAKE 2 TABLETS (4000 UNITS) BY MOUTH ONCE DAILY naratriptan (AMERGE) 2.5 mg tablet Take 1 tablet (2.5 mg) by mouth as directed. at the onset of headache; if headache returns or does not fully resolve, the dose may be repeated after 4 hours; do not exceed five(5) mg in 24 hours. NO more than 10 doses in a month. loratadine (CLARITIN) 10 mg tablet Take 1 tablet by mouth once daily. buPROPion XL (WELLBUTRIN XL) 300 mg 24 hr tablet Take 1 tablet by mouth once daily. meloxicam (MOBIC) 15 mg tablet Take 1 tablet by mouth once daily. With food. No current facility-administered medications on file prior to visit. Social History Social History Tobacco Use Smoking status: Former Packs/day: 1 Types: Cigarettes Smokeless tobacco: Former Quit date: 04/25/2015 Vaping Use Vaping Use: Never used Substance Use Topics Alcohol use: Not Currently Comment: Occasionally Drug use: Never Review of Symptoms REVIEW OF SYSTEMS GENERAL: No weight loss, malaise or fevers HEENT: No changes in hearing or visio (more content not included)... [facility] 01-14-2024 History of Present illness Narrative Chief Complaint Patient presents with: Follow Up Physical HPI Maximus Bradley is a 48 year old female who presents here today for Above Complaints. Patient without recent hospitalizations or ER visits. Patient evaluated for chest pain about 2 weeks ago. EKG was normal. Stress test and echo are pending. Patient denies any recurrent chest pain since. Patient with history of migraines which is managed by [facility] neurology. Last OV in September reviewed with patient. Getting migraine headaches every other week on Topamax and uses Amerge PRN for breakthrough which works "some of the time". Patient has follow up in 1 month. Hypothyroidism: Tolerating synthroid without side effects. Asymptomatic on current regimen. Due for TSH. Anxiety and depression well controlled on current regimen without side effects. Denies SI/HI, panic symptoms. Not seeing counseling at this time. GERD controlled on omeprazole. Up to date on cancer screening. Refusing vaccinations. Past medical history, appointments, medications, allergies reviewed. Previous Medical History PAST MEDICAL HISTORY Diagnosis Date Abdominal pain, epigastric Abnormal mammogram 09/14/2016 Acute gastritis without mention of hemorrhage Anxiety Chest pain Class 1 obesity due to excess calories without serious comorbidity with body mass index (BMI) of 34.0 to 34.9 in adult Depression Disability, developmental Gastroesophageal reflux disease with esophagitis without hemorrhage Hypothyroidism LLQ pain 10/07/2013 Low blood sugar 03/29/2015 Migraines Plantar warts Reflux esophagitis Urinary retention Pablo Arrington Previous Surgical History PAST SURGICAL HISTORY Procedure Laterality Date BX OF BREAST; INCISIONAL Left 09/05/2023 COLONOSCOPY 11/28/2021 repeat in 10 years DILATION & CURETTAGE DX&/THER NONOBSTETRIC EGD W/O BRSH SPEC VARICIES INJ 01/30/2022 ESOPHAGOGASTRODUODENOSCOPY TRANSORAL DIAGNOSTIC 07/04/2005 EGD FNA WITH IMAGING Right 09/26/2016 U/S FNA UOQ right breast LIG/TRNSXJ FLP TUBE ABDL/VAG APPR UNI/BI Tubal ligation Family History FAMILY HISTORY Adopted: Yes Problem Relation Age of Onset Cancer Father lung Heart disease Sister No Known Problems Brother No Known Problems Brother other (Liver Disease) Paternal Grandmother Cancer Paternal Grandfather Lung No Known Problems Son Cancer Paternal Uncle Throat No Ocular Disease No Family History Patient Allergies ALLERGIES Allergen Reactions Bee Pollen Anaphylaxis Adderall [Dextroamp* Itching Amphetamine Itching Imitrex [Sumatripta* Other: See Comments palpitations Current Medications Current Outpatient Medications on File Prior to Visit Medication Sig fluticasone (FLONASE) 50 mcg/actuation nasal spray Use 2 Sprays in each nostril once daily. Rinse mouth after use. clotrimazole (LOTRIMIN) 1 % cream Apply BID to rash until rash goes away, and then continue for 1 more week. sucralfate (CARAFATE) 100 mg/mL suspension TAKE 10ML BY MOUTH TWICE A DAY folic acid 1 mg tablet take 1 tablet by mouth daily venlafaxine (EFFEXOR) 100 mg tablet Take 1 tablet by mouth two times a day. topiramate (TOPAMAX) 25 mg capsule Take 2 capsules by mouth two times a day. cyanocobalamin (VITAMIN B-12) 1,000 mcg tab Take 1 tablet by mouth once daily. omeprazole (PRILOSEC) 40 mg capsule Take 1 capsule by mouth once daily. albuterol HFA (VENTOLIN HFA) 90 mcg/actuation inhaler Inhale 2 Puffs as instructed every 4 hours as needed for wheezing/shortness of breath. busPIRone (BUSPAR) 5 mg tablet Take 1 tablet by mouth two times a day. levothyroxine (SYNTHROID) 75 mcg tablet Take 1 tablet by mouth once daily. Take on empty stomach. For Thyroid VITAMIN D-3 50 mcg (2,000 unit) tablet TAKE 2 TABLETS (4000 UNITS) BY MOUTH ONCE DAILY naratriptan (AMERGE) 2.5 mg tablet Take 1 tablet (2.5 mg) by mouth as directed. at the onset of headache; if headache returns or does not fully resolve, the dose may be repeated after 4 hours; do not exceed five(5) mg in 24 hours. NO more than 10 doses in a month. loratadine (CLARITIN) 10 mg tablet Take 1 tablet by mouth once daily. buPROPion XL (WELLBUTRIN XL) 300 mg 24 hr tablet Take 1 tablet by mouth once daily. meloxicam (MOBIC) 15 mg tablet Take 1 tablet by mouth once daily. With food. No current facility-administered medications on file prior to visit. Social History Social History Tobacco Use Smoking status: Former Packs/day: 1 Types: Cigarettes Smokeless tobacco: Former Quit date: 04/25/2015 Vaping Use Vaping Use: Never used Substance Use Topics Alcohol use: Not Currently Comment: Occasionally Drug use: Never Review of Symptoms REVIEW OF SYSTEMS GENERAL: No weight loss, malaise or fevers HEENT: No changes in hearing or vision, no nose bleeds or other nasal problems NECK: Negative for lumps, goiter, pain and significant neck swelling RESPIRATORY: Negative for cough, hemoptysis, wheezing, COPD, dyspnea or shortness of breath CARDIOVASCULAR: Negative for chest pain, leg swelling, hypertension, CHF or palpitations GI: No nausea, vomiting, or diarrhea : No history of dysuria, frequency or incontinence RECREATION COORDINATOR: Negative for abnormal vaginal bleeding, abnormal vaginal discharge MUSCULOSKELETAL: Positive for left arm pain. SKIN: Negative for lesions, rash, and itching PSYCH: Negative for sleep disturbance, mood disorder and recent psychosocial stressors HEMATOLOGY/LYMPHOLOGY: Negative for prolonged bleeding, bruising easily or swollen nodes ENDOCRINE: Negative for cold or heat intolerance, polyuria, polydipsia and goiter NEURO: No history of headaches, syncope, paralysis, seizures or tremors EXAM: BP 120/84 Pulse 97 Resp 16 Wt 97.1 kg (214 lb) LMP 11/29/2023 (Approximate) SpO2 98% BMI 34.54 kg/m General Appearance: Well appearing, alert, in no acute distress, well-hydrated, well nourished.. Skin: Skin color, texture, turgor normal, no suspicious rashes or lesions. Head: Normocephalic, no masses, lesions, tenderness or abnormalities. Eyes: Anicteric sclera. Pupils are equally round and reactive to light. Extraocular movements are intact. . Ears: External ears normal, canals clear. Nose/Sinuses: Nares normal, septum midline, mucosa normal, no drainage or sinus tenderness. Oropharynx: Lips, mucosa, and tongue normal, teeth and gums normal, oropharynx normal. Neck: Thyroid enlarged. Non tender. No nodules. Lungs: Lungs clear to auscultation. No wheezing, rhonchi, rales.. Heart: RRR without murmur, gallop, or rubs. No ectopy. Abdomen: Normal abdominal exam, Abdomen soft, non-tender. Bowel sounds normal. No masses, organomegaly. Extremities: No deformities, edema, skin discoloration, clubbing or cyanosis. Good capillary refill. . Musculoskeletal: No joint swelling, deformity, or tenderness. Peripheral Pulses: Normal. Neurologic: CN II-XII intact grossly Lymph Nodes: No cervical lymphadenopathy and No supraclavicular lymphadenopathy. Health Maintenance List Hepatitis B Vaccine(1 of 3 - 19+ 3-dose series) Never done Covid-19 Vaccine( - 2022- season) Never done BP Controlled (<130/80) due on 08/15/2023 Influenza Vaccine(1) due on 03/09/2024 Mammogram Screening due on 07/25/2024 Annual PCP Team Chronic Disease Visit due on 01/01/2025 Cervical Cancer Screening due on 07/28/2025 Lipid Screening due on 09/16/2025 Diabetes Screening due on 07/12/2026 DTaP,Tdap,Td Vaccine(2 - Td or Tdap) due on 10/01/2029 Colorectal Cancer Screening due on 11/29/2031 Hepatitis C Screening Completed HIV Screening Completed ASSESSMENT/PLAN: 1. Annual physical exam - ICD9: V70.0, ICD10: Z00.00 (primary diagnosis) - Counseled on healthy diet and regular exercise - Discussed need and benefit for weight loss. BMI 34.54 kg/(m^2) - Counseled patient on limiting alcohol intake to 1 drink per day - Discussed safe sex practices and avoidance of STIs - Follow up for annual exam in one year - COMPLETE BLOOD COUNT AND DIFFERENTIAL - COMPREHENSIVE METABOLIC PANEL - LIPID PANEL, NONFASTING - THYROID STIMULATING HORMONE 2. Essential hypertension - ICD9: 401.9, ICD10: I10 - Controlled - Continue current medications - Recommend home blood pressure monitoring, to bring results to next visit - Encouraged sodium restriction, DASH or Mediterranean diet - Recommend regular aerobic exercise 3. Acquired hypothyroidism - ICD9: 244.9, ICD10: E03.9 - Instructed patient on importance of taking on an empty stomach either first thing in the morning or at bedtime. - check TSH today - continue current dose of Synthroid - US THYROID/PARATHYROID 4. Migraine without aura and without status migrainosus, not intractable - ICD9: 346.10, ICD10: G43.009 Improved on current regimen. F/u neurology recommendations. 5. Enlarged thyroid - ICD9: 240.9, ICD10: E04.9 Repeat US. - US THYROID/PARATHYROID 6. Anxiety with depression - ICD9: 300.4, ICD10: F41.8 Controlled on current regimen. 7. Class 1 obesity due to excess calories with body mass index (BMI) of 34.0 to 34.9 in adult, unspecified whether serious comorbidity present - ICD9: 278.00, V85.34, ICD10: E66.09, Z68.34 Stable - Behavioral intervention Leny Hsu MD documented in this encounter [facility] 01-02-2024 Note HNO ID: [id number] Author: LENY HSU MD Service: ? Author Type: Physician Type: Progress Notes Filed: 01/02/2024 12:09 Note Text: Chief Complaint Patient presents with: Acute Visit: Left ear infection HPI Maximus Bradley is a 48 year old female who presents here today for Above Complaints.. Patient complaining today of left sided chest pain which started about 2 days ago. Described as a pressure sensation which lasts about 5-10 minutes. Usually occurs while at rest. No exacerbating factors. Not treating with anything OTC. Admits to diaphoresis, improvement with rest. Denies radiation to neck or jaw, SOB, lightheadedness, nausea, worsening with exertion, palpitations. Also states that she gets left ear fullness if she tilts her head to the left or lies on that side which started about 2 days ago. Gets muffled hearing as well and has had some nasal congestion. Tried cleaning out with peroxide and a q tip a couple days ago which did not help. Denies hearing loss, fever/chills, drainage, sore throat, swollen glands. Past medical history, appointments, medications, allergies reviewed. Previous Medical History PAST MEDICAL HISTORY Diagnosis Date Abdominal pain, epigastric Abnormal mammogram 09/14/2016 Acute gastritis without mention of hemorrhage Anxiety Class 1 obesity due to excess calories without serious comorbidity with body mass index (BMI) of 34.0 to 34.9 in adult Depression Disability, developmental Gastroesophageal reflux disease with esophagitis without hemorrhage Hypothyroidism LLQ pain 10/07/2013 Low blood sugar 03/29/2015 Migraines Reflux esophagitis Urinary retention Pablo Arrington Previous Surgical History PAST SURGICAL HISTORY Procedure Laterality Date BX OF BREAST; INCISIONAL Left 09/05/2023 COLONOSCOPY 11/28/2021 repeat in 10 years DILATION AND CURETTAGE DXAND/THER NONOBSTETRIC EGD W/O BRSH SPEC VARICIES INJ 01/30/2022 ESOPHAGOGASTRODUODENOSCOPY TRANSORAL DIAGNOSTIC 07/04/2005 EGD FNA WITH IMAGING Right 09/26/2016 U/S FNA UOQ right breast LIG/TRNSXJ FLP TUBE ABDL/VAG APPR UNI/BI Tubal ligation Family History FAMILY HISTORY Adopted: Yes Problem Relation Age of Onset Cancer Father lung Heart disease Sister No Known Problems Sister No Known Problems Brother No Known Problems Brother No Known Problems Brother other (Liver Disease) Paternal Grandmother Cancer Paternal Grandfather Lung No Known Problems Son Cancer Paternal Uncle Throat No Ocular Disease No Family History Patient Allergies ALLERGIES Allergen Reactions Bee Pollen Anaphylaxis Adderall [Dextroamp* Itching Amphetamine Itching Imitrex [Sumatripta* Other: See Comments palpitations Current Medications Current Outpatient Medications on File Prior to Visit Medication Sig clotrimazole (LOTRIMIN) 1 % cream Apply BID to rash until rash goes away, and then continue for 1 more week. folic acid 1 mg tablet take 1 tablet by mouth daily venlafaxine (EFFEXOR) 100 mg tablet Take 1 tablet by mouth two times a day. topiramate (TOPAMAX) 25 mg capsule Take 2 capsules by mouth two times a day. cyanocobalamin (VITAMIN B-12) 1,000 mcg tab Take 1 tablet by mouth once daily. omeprazole (PRILOSEC) 40 mg capsule Take 1 capsule by mouth once daily. albuterol HFA (VENTOLIN HFA) 90 mcg/actuation inhaler Inhale 2 Puffs as instructed every 4 hours as needed for wheezing/shortness of breath. busPIRone (BUSPAR) 5 mg tablet Take 1 tablet by mouth two times a day. levothyroxine (SYNTHROID) 75 mcg tablet Take 1 tablet by mouth once daily. Take on empty stomach. For Thyroid VITAMIN D-3 50 mcg (2,000 unit) tablet TAKE 2 TABLETS (4000 UNITS) BY MOUTH ONCE DAILY naratriptan (AMERGE) 2.5 mg tablet Take 1 tablet (2.5 mg) by mouth as directed. at the onset of headache; if headache returns or does not fully resolve, the dose may be repeated after 4 hours; do not exceed five(5) mg in 24 hours. NO more than 10 doses in a month. loratadine (CLARITIN) 10 mg tablet Take 1 tablet by mouth once daily. buPROPion XL (WELLBUTRIN XL) 300 mg 24 hr tablet Take 1 tablet by mouth once daily. sucralfate (CARAFATE) 100 mg/mL suspension TAKE 10ML BY MOUTH TWICE A DAY (Patient not taking: Reported on 12/19/2023) meloxicam (MOBIC) 15 mg tablet Take 1 tablet by mouth once daily. With food. (Patient not taking: Reported on 09/20/2023) No current facility-administered medications on file prior to visit. Social History Social History Tobacco Use Smoking status: Former Packs/day: 1 Types: Cigarettes Smokeless tobacco: Former Quit date: 04/25/2015 Vaping Use Vaping Use: Never used Substance Use Topics Alcohol use: Not Currently Comment: Occasionally Drug use: Never Review of Symptoms REVIEW OF SYSTEMS GENERAL: No weight loss, malaise or fevers RESPIRATORY: Negative for cough, hemoptysis, wheezing, COPD, dyspnea or shortness of breath CARDI (more content not included)... [facility] 01-02-2024 History of Present illness Narrative Chief Complaint Patient presents with: Acute Visit: Left ear infection HPI Maximus Bradley is a 48 year old female who presents here today for Above Complaints.. Patient complaining today of left sided chest pain which started about 2 days ago. Described as a pressure sensation which lasts about 5-10 minutes. Usually occurs while at rest. No exacerbating factors. Not treating with anything OTC. Admits to diaphoresis, improvement with rest. Denies radiation to neck or jaw, SOB, lightheadedness, nausea, worsening with exertion, palpitations. Also states that she gets left ear fullness if she tilts her head to the left or lies on that side which started about 2 days ago. Gets muffled hearing as well and has had some nasal congestion. Tried cleaning out with peroxide and a q tip a couple days ago which did not help. Denies hearing loss, fever/chills, drainage, sore throat, swollen glands. Past medical history, appointments, medications, allergies reviewed. Previous Medical History PAST MEDICAL HISTORY Diagnosis Date Abdominal pain, epigastric Abnormal mammogram 09/14/2016 Acute gastritis without mention of hemorrhage Anxiety Class 1 obesity due to excess calories without serious comorbidity with body mass index (BMI) of 34.0 to 34.9 in adult Depression Disability, developmental Gastroesophageal reflux disease with esophagitis without hemorrhage Hypothyroidism LLQ pain 10/07/2013 Low blood sugar 03/29/2015 Migraines Reflux esophagitis Urinary retention Pablo Arrington Previous Surgical History PAST SURGICAL HISTORY Procedure Laterality Date BX OF BREAST; INCISIONAL Left 09/05/2023 COLONOSCOPY 11/28/2021 repeat in 10 years DILATION & CURETTAGE DX&/THER NONOBSTETRIC EGD W/O BRSH SPEC VARICIES INJ 01/30/2022 ESOPHAGOGASTRODUODENOSCOPY TRANSORAL DIAGNOSTIC 07/04/2005 EGD FNA WITH IMAGING Right 09/26/2016 U/S FNA UOQ right breast LIG/TRNSXJ FLP TUBE ABDL/VAG APPR UNI/BI Tubal ligation Family History FAMILY HISTORY Adopted: Yes Problem Relation Age of Onset Cancer Father lung Heart disease Sister No Known Problems Sister No Known Problems Brother No Known Problems Brother No Known Problems Brother other (Liver Disease) Paternal Grandmother Cancer Paternal Grandfather Lung No Known Problems Son Cancer Paternal Uncle Throat No Ocular Disease No Family History Patient Allergies ALLERGIES Allergen Reactions Bee Pollen Anaphylaxis Adderall [Dextroamp* Itching Amphetamine Itching Imitrex [Sumatripta* Other: See Comments palpitations Current Medications Current Outpatient Medications on File Prior to Visit Medication Sig clotrimazole (LOTRIMIN) 1 % cream Apply BID to rash until rash goes away, and then continue for 1 more week. folic acid 1 mg tablet take 1 tablet by mouth daily venlafaxine (EFFEXOR) 100 mg tablet Take 1 tablet by mouth two times a day. topiramate (TOPAMAX) 25 mg capsule Take 2 capsules by mouth two times a day. cyanocobalamin (VITAMIN B-12) 1,000 mcg tab Take 1 tablet by mouth once daily. omeprazole (PRILOSEC) 40 mg capsule Take 1 capsule by mouth once daily. albuterol HFA (VENTOLIN HFA) 90 mcg/actuation inhaler Inhale 2 Puffs as instructed every 4 hours as needed for wheezing/shortness of breath. busPIRone (BUSPAR) 5 mg tablet Take 1 tablet by mouth two times a day. levothyroxine (SYNTHROID) 75 mcg tablet Take 1 tablet by mouth once daily. Take on empty stomach. For Thyroid VITAMIN D-3 50 mcg (2,000 unit) tablet TAKE 2 TABLETS (4000 UNITS) BY MOUTH ONCE DAILY naratriptan (AMERGE) 2.5 mg tablet Take 1 tablet (2.5 mg) by mouth as directed. at the onset of headache; if headache returns or does not fully resolve, the dose may be repeated after 4 hours; do not exceed five(5) mg in 24 hours. NO more than 10 doses in a month. loratadine (CLARITIN) 10 mg tablet Take 1 tablet by mouth once daily. buPROPion XL (WELLBUTRIN XL) 300 mg 24 hr tablet Take 1 tablet by mouth once daily. sucralfate (CARAFATE) 100 mg/mL suspension TAKE 10ML BY MOUTH TWICE A DAY (Patient not taking: Reported on 12/19/2023) meloxicam (MOBIC) 15 mg tablet Take 1 tablet by mouth once daily. With food. (Patient not taking: Reported on 09/20/2023) No current facility-administered medications on file prior to visit. Social History Social History Tobacco Use Smoking status: Former Packs/day: 1 Types: Cigarettes Smokeless tobacco: Former Quit date: 04/25/2015 Vaping Use Vaping Use: Never used Substance Use Topics Alcohol use: Not Currently Comment: Occasionally Drug use: Never Review of Symptoms REVIEW OF SYSTEMS GENERAL: No weight loss, malaise or fevers RESPIRATORY: Negative for cough, hemoptysis, wheezing, COPD, dyspnea or shortness of breath CARDIOVASCULAR: See HPI GI: No nausea, vomiting, or diarrhea SKIN: Negative for lesions, rash, and itching EXAM: BP 128/84 Pulse 81 Resp 16 Wt 96.2 kg (212 lb) LMP 11/29/2023 (Approximate) SpO2 98% BMI 34.22 kg/m General Appearance: Well appearing, alert, in no acute distress, well-hydrated, well nourished.. Skin: Skin color, texture, turgor normal, no suspicious rashes or lesions. Head: Normocephalic, no masses, lesions, tenderness or abnormalities. Eyes: Anicteric sclera. Pupils are equally round and reactive to light. Extraocular movements are intact. . Ears: serous effusion on left. TM normal on right. Canals clear without inflammation. Nose/Sinuses: No sinus TTP Oropharynx: Lips, mucosa, and tongue normal, teeth and gums normal, oropharynx normal. Neck: Supple, no adenopathy; thyroid symmetric, normal size, no bruits. Lungs: Lungs clear to auscultation. No wheezing, rhonchi, rales.. Heart: RRR without murmur, gallop, or rubs. No ectopy. Extremities: No deformities, edema, skin discoloration, clubbing or cyanosis. Good capillary refill. . Musculoskeletal: no reproducible TTP over chest wall Health Maintenance List Hepatitis B Vaccine(1 of 3 - 19+ 3-dose series) Never done Covid-19 Vaccine(2022- season) Never done Mammogram Screening due on 07/25/2024 Annual PCP Team Chronic Disease Visit due on 12/18/2024 BP Controlled (<130/80) due on 12/18/2024 Cervical Cancer Screening due on 07/28/2025 Lipid Screening due on 09/16/2025 Diabetes Screening due on 07/12/2026 DTaP,Tdap,Td Vaccine(2 - Td or Tdap) due on 10/01/2029 Colorectal Cancer Screening due on 11/29/2031 Influenza Vaccine Completed Hepatitis C Screening Completed HIV Screening Completed EKG: NSR at 73 bpm ASSESSMENT/PLAN: 1. Other chest pain - ICD9: 786.59, ICD10: R07.89 (primary diagnosis) Chest pain of unclear etiology, patient with significant risk factor(s) of Hypertension, Obesity and family history of heart disease Normal EKG today. Normal exam. Will obtain CXR, stress test and echo as ordered. Red flags for re-assessment reviewed with patient in detail. - ECG COMPLETE 2. Acute serous otitis media of left ear, recurrence not specified - ICD9: 381.01, ICD10: H65.02 No infection today. Will treat with flonase and ear popping exercises as discussed. Red flags for re-assessment reviewed with patient in detail. Leny Hsu MD documented in this encounter [facility] 12-19-2023 Note HNO ID: [id number] Author: LEYN HSU MD Service: ? Author Type: Physician Type: Progress Notes Filed: 12/19/2023 14:36 Note Text: Chief Complaint Patient presents with: Follow Up: Wart on bottom of right foot HPI Maximus Bradley is a 48 year old female who presents here today for Above Complaints.. Patient states that she has wart on the balls of her feet bilaterally which has been present for years. Has tried removing at home with nail clippers. Has not tried OTC wart remover. We did try treating with cryotherapy about a year ago without improvement. Admits to pain with walking. Would like referral order for excision. Would also like refill on clotrimazole for rash under her breasts. Using recently for red rash with itching. Trying to keep the area dry. Rash in her groin has resolved. Past medical history, appointments, medications, allergies reviewed. Previous Medical History PAST MEDICAL HISTORY Diagnosis Date Abdominal pain, epigastric Abnormal mammogram 09/14/2016 Acute gastritis without mention of hemorrhage Anxiety Class 1 obesity due to excess calories without serious comorbidity with body mass index (BMI) of 34.0 to 34.9 in adult Depression Disability, developmental Gastroesophageal reflux disease with esophagitis without hemorrhage Hypothyroidism LLQ pain 10/07/2013 Low blood sugar 03/29/2015 Migraines Reflux esophagitis Urinary retention Pablo Arrington Previous Surgical History PAST SURGICAL HISTORY Procedure Laterality Date BX OF BREAST; INCISIONAL Left 09/05/2023 COLONOSCOPY 11/28/2021 repeat in 10 years DILATION AND CURETTAGE DXAND/THER NONOBSTETRIC EGD W/O BRSH SPEC VARICIES INJ 01/30/2022 ESOPHAGOGASTRODUODENOSCOPY TRANSORAL DIAGNOSTIC 07/04/2005 EGD FNA WITH IMAGING Right 09/26/2016 U/S FNA UOQ right breast LIG/TRNSXJ FLP TUBE ABDL/VAG APPR UNI/BI Tubal ligation Family History FAMILY HISTORY Adopted: Yes Problem Relation Age of Onset Cancer Father lung Heart disease Sister No Known Problems Sister No Known Problems Brother No Known Problems Brother No Known Problems Brother other (Liver Disease) Paternal Grandmother Cancer Paternal Grandfather Lung No Known Problems Son Cancer Paternal Uncle Throat No Ocular Disease No Family History Patient Allergies ALLERGIES Allergen Reactions Bee Pollen Anaphylaxis Adderall [Dextroamp* Itching Amphetamine Itching Imitrex [Sumatripta* Other: See Comments palpitations Current Medications Current Outpatient Medications on File Prior to Visit Medication Sig folic acid 1 mg tablet take 1 tablet by mouth daily venlafaxine (EFFEXOR) 100 mg tablet Take 1 tablet by mouth two times a day. topiramate (TOPAMAX) 25 mg capsule Take 2 capsules by mouth two times a day. clotrimazole (LOTRIMIN) 1 % cream Apply BID to rash until rash goes away, and then continue for 1 more week. cyanocobalamin (VITAMIN B-12) 1,000 mcg tab Take 1 tablet by mouth once daily. omeprazole (PRILOSEC) 40 mg capsule Take 1 capsule by mouth once daily. albuterol HFA (VENTOLIN HFA) 90 mcg/actuation inhaler Inhale 2 Puffs as instructed every 4 hours as needed for wheezing/shortness of breath. busPIRone (BUSPAR) 5 mg tablet Take 1 tablet by mouth two times a day. levothyroxine (SYNTHROID) 75 mcg tablet Take 1 tablet by mouth once daily. Take on empty stomach. For Thyroid VITAMIN D-3 50 mcg (2,000 unit) tablet TAKE 2 TABLETS (4000 UNITS) BY MOUTH ONCE DAILY naratriptan (AMERGE) 2.5 mg tablet Take 1 tablet (2.5 mg) by mouth as directed. at the onset of headache; if headache returns or does not fully resolve, the dose may be repeated after 4 hours; do not exceed five(5) mg in 24 hours. NO more than 10 doses in a month. loratadine (CLARITIN) 10 mg tablet Take 1 tablet by mouth once daily. buPROPion XL (WELLBUTRIN XL) 300 mg 24 hr tablet Take 1 tablet by mouth once daily. sucralfate (CARAFATE) 100 mg/mL suspension TAKE 10ML BY MOUTH TWICE A DAY (Patient not taking: Reported on 12/19/2023) meloxicam (MOBIC) 15 mg tablet Take 1 tablet by mouth once daily. With food. (Patient not taking: Reported on 09/20/2023) No current facility-administered medications on file prior to visit. Social History Social History Tobacco Use Smoking status: Former Packs/day: 1 Types: Cigarettes Smokeless tobacco: Former Quit date: 04/25/2015 Vaping Use Vaping Use: Never used Substance Use Topics Alcohol use: Not Currently Comment: Occasionally Drug use: Never Review of Symptoms REVIEW OF SYSTEMS GENERAL: No weight loss, malaise or fevers EXAM: BP 126/78 Pulse 96 Resp 18 Wt 95.8 kg (211 lb 3.2 oz) LMP 09/21/2023 SpO2 97% BMI 34.09 kg/m? General Appearance: Well appearing, alert, in no acute distress, well-hydrated, well nourished.. Skin: mild rash under breasts bilaterally without cellulitis consistent with tinea. Feet: Shoes and socks removed (more content not included)... [facility] 12-19-2023 History of Present illness Narrative Chief Complaint Patient presents with: Follow Up: Wart on bottom of right foot HPI Maximus Bradley is a 48 year old female who presents here today for Above Complaints.. Patient states that she has wart on the balls of her feet bilaterally which has been present for years. Has tried removing at home with nail clippers. Has not tried OTC wart remover. We did try treating with cryotherapy about a year ago without improvement. Admits to pain with walking. Would like referral order for excision. Would also like refill on clotrimazole for rash under her breasts. Using recently for red rash with itching. Trying to keep the area dry. Rash in her groin has resolved. Past medical history, appointments, medications, allergies reviewed. Previous Medical History PAST MEDICAL HISTORY Diagnosis Date Abdominal pain, epigastric Abnormal mammogram 09/14/2016 Acute gastritis without mention of hemorrhage Anxiety Class 1 obesity due to excess calories without serious comorbidity with body mass index (BMI) of 34.0 to 34.9 in adult Depression Disability, developmental Gastroesophageal reflux disease with esophagitis without hemorrhage Hypothyroidism LLQ pain 10/07/2013 Low blood sugar 03/29/2015 Migraines Reflux esophagitis Urinary retention Pablo Arrington Previous Surgical History PAST SURGICAL HISTORY Procedure Laterality Date BX OF BREAST; INCISIONAL Left 09/05/2023 COLONOSCOPY 11/28/2021 repeat in 10 years DILATION & CURETTAGE DX&/THER NONOBSTETRIC EGD W/O BRSH SPEC VARICIES INJ 01/30/2022 ESOPHAGOGASTRODUODENOSCOPY TRANSORAL DIAGNOSTIC 07/04/2005 EGD FNA WITH IMAGING Right 09/26/2016 U/S FNA UOQ right breast LIG/TRNSXJ FLP TUBE ABDL/VAG APPR UNI/BI Tubal ligation Family History FAMILY HISTORY Adopted: Yes Problem Relation Age of Onset Cancer Father lung Heart disease Sister No Known Problems Sister No Known Problems Brother No Known Problems Brother No Known Problems Brother other (Liver Disease) Paternal Grandmother Cancer Paternal Grandfather Lung No Known Problems Son Cancer Paternal Uncle Throat No Ocular Disease No Family History Patient Allergies ALLERGIES Allergen Reactions Bee Pollen Anaphylaxis Adderall [Dextroamp* Itching Amphetamine Itching Imitrex [Sumatripta* Other: See Comments palpitations Current Medications Current Outpatient Medications on File Prior to Visit Medication Sig folic acid 1 mg tablet take 1 tablet by mouth daily venlafaxine (EFFEXOR) 100 mg tablet Take 1 tablet by mouth two times a day. topiramate (TOPAMAX) 25 mg capsule Take 2 capsules by mouth two times a day. clotrimazole (LOTRIMIN) 1 % cream Apply BID to rash until rash goes away, and then continue for 1 more week. cyanocobalamin (VITAMIN B-12) 1,000 mcg tab Take 1 tablet by mouth once daily. omeprazole (PRILOSEC) 40 mg capsule Take 1 capsule by mouth once daily. albuterol HFA (VENTOLIN HFA) 90 mcg/actuation inhaler Inhale 2 Puffs as instructed every 4 hours as needed for wheezing/shortness of breath. busPIRone (BUSPAR) 5 mg tablet Take 1 tablet by mouth two times a day. levothyroxine (SYNTHROID) 75 mcg tablet Take 1 tablet by mouth once daily. Take on empty stomach. For Thyroid VITAMIN D-3 50 mcg (2,000 unit) tablet TAKE 2 TABLETS (4000 UNITS) BY MOUTH ONCE DAILY naratriptan (AMERGE) 2.5 mg tablet Take 1 tablet (2.5 mg) by mouth as directed. at the onset of headache; if headache returns or does not fully resolve, the dose may be repeated after 4 hours; do not exceed five(5) mg in 24 hours. NO more than 10 doses in a month. loratadine (CLARITIN) 10 mg tablet Take 1 tablet by mouth once daily. buPROPion XL (WELLBUTRIN XL) 300 mg 24 hr tablet Take 1 tablet by mouth once daily. sucralfate (CARAFATE) 100 mg/mL suspension TAKE 10ML BY MOUTH TWICE A DAY (Patient not taking: Reported on 12/19/2023) meloxicam (MOBIC) 15 mg tablet Take 1 tablet by mouth once daily. With food. (Patient not taking: Reported on 09/20/2023) No current facility-administered medications on file prior to visit. Social History Social History Tobacco Use Smoking status: Former Packs/day: 1 Types: Cigarettes Smokeless tobacco: Former Quit date: 04/25/2015 Vaping Use Vaping Use: Never used Substance Use Topics Alcohol use: Not Currently Comment: Occasionally Drug use: Never Review of Symptoms REVIEW OF SYSTEMS GENERAL: No weight loss, malaise or fevers EXAM: BP 126/78 Pulse 96 Resp 18 Wt 95.8 kg (211 lb 3.2 oz) LMP 09/21/2023 SpO2 97% BMI 34.09 kg/m General Appearance: Well appearing, alert, in no acute distress, well-hydrated, well nourished.. Skin: mild rash under breasts bilaterally without cellulitis consistent with tinea. Feet: Shoes and socks removed, calluses noted bilaterally, and plantar warts proximal to 5th MTP joint bilaterally Health Maintenance List Hepatitis B Vaccine(1 of 3 - 19+ 3-dose series) Never done Covid-19 Vaccine(2022-) Never done Mammogram Screening due on 07/25/2024 Annual PCP Team Chronic Disease Visit due on 09/30/2024 BP Controlled (<130/80) due on 09/30/2024 Cervical Cancer Screening due on 07/28/2025 Lipid Screening due on 09/16/2025 Diabetes Screening due on 07/12/2026 DTaP,Tdap,Td Vaccine(2 - Td or Tdap) due on 10/01/2029 Colorectal Cancer Screening due on 11/29/2031 Influenza Vaccine Completed Hepatitis C Screening Completed HIV Screening Completed ASSESSMENT/PLAN: 1. Plantar wart of both feet - ICD9: 078.12, ICD10: B07.0 (primary diagnosis) Discussed viral cause and possible spread. Encouraged to wash hands after touching area. Will refer for excision. - CONSULT TO PODIATRY 2. Tinea corporis - ICD9: 110.5, ICD10: B35.4 - Treat with clotrimazole twice a day until rash resolves and then another week - Keep area of concern very dry. Ok to use OTC antifungal powder if area is moist - Follow up with PCP if symptoms persist or do not improved after 4-6 weeks of treatment. - CLOTRIMAZOLE 1 % TOPICAL CREAM Leny Hsu MD documented in this encounter [facility] 12-10-2023 Telephone encounter Note Patient phones requesting refills as follows: Requested Prescriptions Pending Prescriptions Disp Refills sucralfate (CARAFATE) 100 mg/mL suspension [Pharmacy Med Name: Sucralfate 1GM/10ML SUSP] 600 mL 1 Sig: TAKE 10ML BY MOUTH TWICE A DAY Ryann Nieto CMA [facility] 12-10-2023 Miscellaneous Notes Patient phones requesting refills as follows: Requested Prescriptions Pending Prescriptions Disp Refills sucralfate (CARAFATE) 100 mg/mL suspension [Pharmacy Med Name: Sucralfate 1GM/10ML SUSP] 600 mL 1 Sig: TAKE 10ML BY MOUTH TWICE A DAY Ryann Nieto CMA documented in this encounter [facility] 12-06-2023 Telephone encounter Note Prescription Refill Information The patient has been identified by name and date of : Yes Caregiver verified no other encounters exist for this prescription request: Yes Caregiver confirmed with patient/requestor that no other refills are due, in the near future, with this provider at this time: Yes The last office visit in the department: 10/01/23 Does the patient have a future office visit with this provider/department: Yes Requested Prescriptions Pending Prescriptions Disp Refills folic acid 1 mg tablet [Pharmacy Med Name: Folic Acid 1MG TABS] 28 tablet Sig: take 1 tablet by mouth daily venlafaxine (EFFEXOR) 100 mg tablet 180 tablet 1 Sig: Take 1 tablet by mouth two times a day. Keyla Cullen LPN December 06, 2023 4:06 PM [facility] 12-06-2023 Miscellaneous Notes Prescription Refill Information The patient has been identified by name and date of : Yes Caregiver verified no other encounters exist for this prescription request: Yes Caregiver confirmed with patient/requestor that no other refills are due, in the near future, with this provider at this time: Yes The last office visit in the department: 10/01/23 Does the patient have a future office visit with this provider/department: Yes Requested Prescriptions Pending Prescriptions Disp Refills folic acid 1 mg tablet [Pharmacy Med Name: Folic Acid 1MG TABS] 28 tablet Sig: take 1 tablet by mouth daily venlafaxine (EFFEXOR) 100 mg tablet 180 tablet 1 Sig: Take 1 tablet by mouth two times a day. Keyla Cullen LPN December 06, 2023 4:06 PM documented in this encounter [facility] 11-09-2023 Telephone encounter Note Patient phones requesting refills as follows: Requested Prescriptions Pending Prescriptions Disp Refills sucralfate (CARAFATE) 100 mg/mL suspension [Pharmacy Med Name: Sucralfate 1GM/10ML SUSP] 414 mL 1 Sig: TAKE 10ML BY MOUTH TWICE A DAY Please review and advise. José Manuel Mcclure MA [facility] 11-09-2023 Miscellaneous Notes Patient phones requesting refills as follows: Requested Prescriptions Pending Prescriptions Disp Refills sucralfate (CARAFATE) 100 mg/mL suspension [Pharmacy Med Name: Sucralfate 1GM/10ML SUSP] 414 mL 1 Sig: TAKE 10ML BY MOUTH TWICE A DAY Please review and advise. José Manuel Mcclure MA documented in this encounter [facility] 11-08-2023 Telephone encounter Note Patient has been identified by name and date of : Yes, Sherine Cruz RN Date 11/08/2023 Time 3:10 pm Pharmacy phones for refill(s): Requested Prescriptions Pending Prescriptions Disp Refills topiramate (TOPAMAX) 25 mg capsule 120 capsule 2 Sig: Take 2 capsules by mouth two times a day. Date of last office visit in primary care: 10/01/2023 Date of next office visit in primary care: 01/14/2024 Please advise. Thank you. Sherine Cruz RN. [facility] 11-08-2023 Miscellaneous Notes Patient has been identified by name and date of : Yes, Sherine Cruz RN Date 11/08/2023 Time 3:10 pm Pharmacy phones for refill(s): Requested Prescriptions Pending Prescriptions Disp Refills topiramate (TOPAMAX) 25 mg capsule 120 capsule 2 Sig: Take 2 capsules by mouth two times a day. Date of last office visit in primary care: 10/01/2023 Date of next office visit in primary care: 01/14/2024 Please advise. Thank you. Sherine Cruz RN. documented in this encounter [facility] 10-25-2023 Miscellaneous Notes Call placed to patient to be sure she had received results and follow up. She states that she spoke to Dr. Dickerson and is aware of the benign biopsy. She has an appt in March with DR. Dickerson for re-examination and discussion of plan. Sandhya Hackett MA Patient's biopsy results were benign. However her next mammogram comes back abnormal we may need to do an excisional biopsy this is probably something that she should come in and I discussed with her in person. Patient called in requesting results from breast biopsy. Please advise. Maureen Sandy LPN documented in this encounter [facility] 10-12-2023 Miscellaneous Notes Patient phones requesting refills as follows: Requested Prescriptions Pending Prescriptions Disp Refills sucralfate (CARAFATE) 100 mg/mL suspension [Pharmacy Med Name: Sucralfate 1GM/10ML SUSP] 414 mL Sig: TAKE 10ML BY MOUTH TWICE A DAY Please review and advise. José Manuel Mcclure MA documented in this encounter [facility] 10-01-2023 History of Present illness Narrative Chief Complaint Patient presents with: excoriation: Under bilateral breasts- patient reports using bag balm and hemp ointments shakiness: Patient reports noting shakiness lately. HPI Maximus Bradley is a 48 year old female who presents here today for Above Complaints.. Patient here today for evaluation of intermittent itching rash under her breasts and under her stomach. Started a couple weeks ago. Has been treating with OTC lotion and hemp lotion with mild improvement in symptoms. Admits to occasional blistering. Denies fever/chills, purulent drainage, bleeding, spreading redness. Past medical history, appointments, medications, allergies reviewed. Previous Medical History PAST MEDICAL HISTORY Diagnosis Date Abdominal pain, epigastric Abnormal mammogram 09/14/2016 Acute gastritis without mention of hemorrhage Anxiety Class 1 obesity due to excess calories without serious comorbidity with body mass index (BMI) of 34.0 to 34.9 in adult Depression Disability, developmental Gastroesophageal reflux disease with esophagitis without hemorrhage Hypothyroidism LLQ pain 10/07/2013 Low blood sugar 03/29/2015 Migraines Reflux esophagitis Urinary retention Pablo Arrington Previous Surgical History PAST SURGICAL HISTORY Procedure Laterality Date BX OF BREAST; INCISIONAL Left 09/05/2023 COLONOSCOPY 11/28/2021 repeat in 10 years DILATION & CURETTAGE DX&/THER NONOBSTETRIC EGD W/O BRSH SPEC VARICIES INJ 01/30/2022 ESOPHAGOGASTRODUODENOSCOPY TRANSORAL DIAGNOSTIC 07/04/2005 EGD FNA WITH IMAGING Right 09/26/2016 U/S FNA UOQ right breast LIG/TRNSXJ FLP TUBE ABDL/VAG APPR UNI/BI Tubal ligation Family History FAMILY HISTORY Adopted: Yes Problem Relation Age of Onset Cancer Father lung Heart disease Sister No Known Problems Sister No Known Problems Brother No Known Problems Brother No Known Problems Brother other (Liver Disease) Paternal Grandmother Cancer Paternal Grandfather Lung No Known Problems Son Cancer Paternal Uncle Throat No Ocular Disease No Family History Patient Allergies ALLERGIES Allergen Reactions Bee Pollen Anaphylaxis Adderall [Dextroamp* Itching Amphetamine Itching Imitrex [Sumatripta* Other: See Comments palpitations Current Medications Current Outpatient Medications on File Prior to Visit Medication Sig cyanocobalamin (VITAMIN B-12) 1,000 mcg tab Take 1 tablet by mouth once daily. folic acid 1 mg tablet Take 1 tablet by mouth once daily. omeprazole (PRILOSEC) 40 mg capsule Take 1 capsule by mouth once daily. albuterol HFA (VENTOLIN HFA) 90 mcg/actuation inhaler Inhale 2 Puffs as instructed every 4 hours as needed for wheezing/shortness of breath. busPIRone (BUSPAR) 5 mg tablet Take 1 tablet by mouth two times a day. levothyroxine (SYNTHROID) 75 mcg tablet Take 1 tablet by mouth once daily. Take on empty stomach. For Thyroid VITAMIN D-3 50 mcg (2,000 unit) tablet TAKE 2 TABLETS (4000 UNITS) BY MOUTH ONCE DAILY naratriptan (AMERGE) 2.5 mg tablet Take 1 tablet (2.5 mg) by mouth as directed. at the onset of headache; if headache returns or does not fully resolve, the dose may be repeated after 4 hours; do not exceed five(5) mg in 24 hours. NO more than 10 doses in a month. loratadine (CLARITIN) 10 mg tablet Take 1 tablet by mouth once daily. topiramate (TOPAMAX) 25 mg capsule Take 2 capsules by mouth two times a day. sucralfate (CARAFATE) 100 mg/mL suspension Take 10 mL by mouth two times a day. venlafaxine (EFFEXOR) 100 mg tablet Take 1 tablet by mouth two times a day. buPROPion XL (WELLBUTRIN XL) 300 mg 24 hr tablet Take 1 tablet by mouth once daily. meloxicam (MOBIC) 15 mg tablet Take 1 tablet by mouth once daily. With food. (Patient not taking: Reported on 09/20/2023) No current facility-administered medications on file prior to visit. Social History Social History Tobacco Use Smoking status: Former Packs/day: 1 Types: Cigarettes Smokeless tobacco: Former Quit date: 04/25/2015 Vaping Use Vaping Use: Never used Substance Use Topics Alcohol use: Not Currently Comment: Occasionally Drug use: Never Review of Symptoms REVIEW OF SYSTEMS See HPI EXAM: BP 124/76 Pulse 87 Wt 94.9 kg (209 lb 3.2 oz) LMP 09/21/2023 SpO2 99% BMI 33.77 kg/m General Appearance: Well appearing, alert, in no acute distress, well-hydrated, well nourished.. Skin: moderate confluent maculopapular rash under breasts and pannus consistent with tinea. Health Maintenance List Hepatitis B Vaccine(1 of 3 - 19+ 3-dose series) Never done Covid-19 Vaccine() Never done Annual PCP Team Chronic Disease Visit due on 07/12/2024 Mammogram Screening due on 07/25/2024 BP Controlled (<130/80) due on 09/19/2024 Pap Testing due on 07/28/2025 HPV Testing due on 07/28/2025 Lipid Screening due on 09/16/2025 Diabetes Screening due on 07/12/2026 DTaP,Tdap,Td Vaccine(2 - Td or Tdap) due on 10/01/2029 Colorectal Cancer Screening due on 11/29/2031 Influenza Vaccine Completed Hepatitis C Screening Completed HIV Screening Completed ASSESSMENT/PLAN: 1. Tinea corporis - ICD9: 110.5, ICD10: B35.4 - Treat with Lamisil twice a day until rash resolves and then another week - Keep area of concern very dry. Ok to use OTC antifungal powder if area is moist - Follow up with PCP if symptoms persist or do not improved after 4-6 weeks of treatment. - CLOTRIMAZOLE 1 % TOPICAL CREAM Leny Hsu MD documented in this encounter [facility] 09-20-2023 History of Present illness Narrative FOLLOW UP VISIT - POST LEFT ULTRASOUND GUIDED CORE BIOPSY NAME: Maximus Vang [facility] NO.: [id number] DATE OF SERVICE: 09/20/2023 : 1975 REFERRING PHYSICIAN: Leny Hsu MD Maximus is a patient Dr. Cast I am following for an abnormal left mammogram. The patient underwent diagnostic mammography and left breast ultrasound demonstrating: Mammogram - There is a stable 6 mm irregular equal density asymmetry in the left breast at 11 o'clock middle depth. No other significant masses or calcifications are seen in the breast. Ultrasound - IMPRESSION: SUSPICIOUS FINDING - BIOPSY SHOULD BE CONSIDERED The stable 6 mm irregular equal density asymmetry in the left breast is suspicious of malignancy. An ultrasound guided biopsy is recommended. Radiology performed a left side ultrasound guided core biopsy for her abnormal mammogram on September 05, 2023. They performed repeat mammogram and ultrasound that day. They felt the abnormality at the 11 o'clock position was not suspicious and instead of biopsy at the 11 o'clock position recommended 6-month follow-up evaluation with ultrasound. The 7:00 lesion was biopsied. The pathology returned as: FINAL DIAGNOSIS A. 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 The patient notes some bruising which is mostly resolved since the procedure. VITALS: Last menstrual period 08/05/2023. On examination, the left side breast biopsy site is clean, dry, and intact. There is minimal bruising of the site. Assessment IMPRESSION: status post ultrasound guided core biopsy for left side breast pseudoangiomatous stromal hyperplasia. PLAN: If Maximus notes any problems, she should contact me immediately. I reminded her about the importance of self - breast exam. I recommend she perform monthly self breast exams. If any palpable abnormalities, change in breast exam, or any difficulties are noted, she is to contact my office immediately. I generally recommend follow up unilateral mammogram and ultrasound 6 months following biopsy. Diagnoses: (R92.8) Abnormal finding on breast imaging (primary encounter diagnosis) Return to Clinic: The patient is instructed to follow-up with Dr. Cast in 6 months following ultrasound and mammogram of the left breast. Jordin Dickerson MD documented in this encounter [facility] 09-19-2023 Instructions Kristy Asencio PA-C - 09/19/2023 4:03 PM EDT Preventative: Topiramate- we will decrease this. Take two tablets in the evening for a total of 50mg a day Abortive: Take the Amerge with onset of headache Supplement with B12 B12 <400: Vitamin B12 level <400, which indicates deficiency. You may start vitamin B12 supplements [available [id number]] orally, according to the following regimen: Vitamin B12, 2 mg (or 2000 micrograms) by mouth daily x1 month. Take together with folic acid 1 mg daily. THEN maintenance with 1 mg (or 1000 micrograms) daily thereafter. Your PCP may recheck vitamin B12 levels in about 6 months to ensure adequate repletion. Follow up in 3-4 months Increase water intake to 60 ounces a day Follow up with your primary care for weight gain. Headache Preventive Treatment: Please keep in mind that it takes 4-6 weeks for the medication to start working well and 2-3 months at the appropriate dose before deciding if it will be useful or not. If it is not helping at all by this time, then we will discuss other medications to try. Supplements may take 3-6 months until you see full effect. Natural supplements: Magnesium Oxide 500 mg at bed Coenzyme Q10 300 mg in AM Vitamin B2- 200 mg twice a day Feverfew 50 mg twice a day Vitamins and herbs that show potential Magnesium: Magnesium (250 mg twice a day or 500 mg at bed) has a relaxant effect on smooth muscles such as blood vessels. Individuals suffering from frequent or daily headache usually have low magnesium levels which can be increase with daily supplementation of 400-750 mg. Three trials found 40-90% average headache reduction when used as a preventative. Magnesium also demonstrated the benefit in menstrually related migraine. Magnesium is part of the messenger system in the serotonin cascade and it is a good muscle relaxant. It is also useful for constipation which can be a side effect of other medications used to treat migraine. Good sources include nuts, whole grains, and tomatoes. Magnesium comes in many different forms: Magnesium glycinate is a good choice for those with a sensitive stomach who have gastrointestinal side effects such as diarrhea with other forms of magnesium. It is anecdotally also helpful with anxiety and sleep. Magnesium threonate also has low risk of gastrointestinal side effects and anecdotally helpful with cognitive function and brain fog symptoms. Magnesium malate has low gastrointestinal side effects and is reportedly more energizing and anecdotally often helpful in fibromyalgia and chronic fatigue syndrome. Magnesium citrate is one of the most studied, popular, and well-absorbed forms of magnesium. It can also be mixed easily with liquids if you can't take pills. However, it comes with a higher risk of diarrhea and gastrointestinal side effects, although this could be helpful for those with constipation. Magnesium oxide is also well studied, cheap, and often used for heartburn and indigestion. However, it is not well absorbed and can have some laxative side effects as well, so can also be helpful for constipation. Riboflavin (vitamin B 2) 200 mg twice a day. This vitamin assists nerve cells in the production of ATP a principal energy storing molecule. It is necessary for many chemical reactions in the body. There have been at least 3 clinical trials of riboflavin using 400 mg per day all of which suggested that migraine frequency can be decreased. All 3 trials showed significant improvement in over half of migraine sufferers. The supplement is found in bread, cereal, milk, meat, and poultry. Most Americans get more riboflavin than the recommended daily allowance, however riboflavin deficiency is not necessary for the supplements to help prevent headache. Feverfew: Feverfew is a common garden herb ewiiaapaayp to [place] and popular in [place] as a treatment for disorders typically controlled by aspirin. The mechanism of action is unknown but is believed to be related to a chemical called parthenolide which helps the body use serotonin more effectively. Serotonin helps prevent migraine and assists with resolution when it occurs. Parthenolide also inhibits the release of histamine which is linked to pain and inflammation. Consistency of active ingredients in different products can be a problem. Some formulations don't have the active ingredient (parthenolide) that prevents migraine. A parthenolide content of 0.2% is generally recommended. Typical dosage is one capsule 3 times a day. Coenzyme Q10: This is present in almost all cells in the body and is critical component for the conversion of energy. Recent studies have shown that a nutritional supplement of CoQ10 can reduce the frequency of migraine attacks by improving the energy production of cells as with riboflavin. Doses of 150 mg twice a day have been shown to be effective. Melatonin: Increasing evidence shows correlation between melatonin secretion and headache conditions. Melatonin supplementation has decreased headache intensity and duration. It is widely used as a sleep aid. Sleep is natures way of dealing with migraine. A dose of 3 mg is recommended to start for headaches including cluster headache. Higher doses up to 15 mg has been reviewed for use in Cluster headache and have been used. The rationale behind using melatonin for cluster is that many theories regarding the cause of Cluster headache center around the disruption of the normal circadian rhythm in the brain. This helps restore the normal circadian rhythm. Allie: Allie has a small amount of antihistamine and anti-inflammatory action which may help headache. It is primarily used for nausea and may aid in the absorption of other medications. HEADACHE DIET: Foods and beverages which may trigger migraine Note that only 20% of headache patients are food sensitive. You will know if you are food sensitive if you get a headache consistently 20 minutes to 2 hours after eating a certain food. Only cut out a food if it causes headaches, otherwise you might remove foods you enjoy! What matters most for diet is to eat a well balanced healthy diet full of vegetables and low fat protein, and to not miss meals. Chocolate, other sweets ALL cheeses except cottage and cream cheese Dairy products, yogurt, sour cream, ice cream Liver Meat extracts (Bovril, Marmite, meat tenderizers) Meats or fish which have undergone aging, fermenting, pickling or smoking. These include: Hotdogs,salami,Lox,sausage, mortadellas,smoked salmon, pepperoni, Pickled crook Pods of broad restrepo (Albanian beans, Mongolian pea pods, Indian (audi) beans, schulte and navy beans Ripe avocado, ripe banana Yeast extracts or active yeast preparations such as Argueta's or Benjamin's (commercial bakes goods are permitted) Tomato based foods, pizza (lasagna, etc.) MSG (monosodium glutamate) is disguised as many things; look for these common aliases: Monopotassium glutamate Autolysed yeast Hydrolysed protein Sodium caseinate flavorings all natural preservatives" Nutrasweet Avoid all other foods that convincingly provoke headaches. Headache Prevention Strategies: 1. Maintain a headache diary; learn to identify and avoid triggers. Common triggers include: Emotional triggers: Emotional/Upset family or friends Emotional/Upset occupation Business reversal/success Anticipation anxiety Crisis-serious Post-crisis periodNew job/position Physical triggers: Vacation Day Weekend Strenuous Exercise High Altitude Location New Move Day Physical Illness Oversleep/Not enough sleep Weather changes Light: Photophobia or light sesnitivity treatment involves a balance between desensitization and reduction in overly strong input. Use dark polarized glasses outside, but not inside. Avoid bright or fluorescent light, but do not dim environment to the point that going into a normally lit room hurts. Consider FL-41 tint lenses, which reduce the most irritating wavelengths without blocking too much light. These can be obtained at [employer] or [employer] Foods: see list above. 2. Limit use of acute treatments (ggpj-tbo-ytjeusz medications, triptans, etc.) to no more than 2 days per week or 10 days per month to prevent medication overuse headache (rebound headache). 3. Follow a regular schedule (including weekends and holidays): Don't skip meals. Eat a balanced diet. 8 hours of sleep nightly. Minimize stress. Exercise 30 minutes per day. Being overweight is associated with a 5 times increased risk of chronic migraine. Keep well hydrated and drink 6-8 glasses of water per day. 4. Initiate non-pharmacologic measures at the earliest onset of your headache. Rest and quiet environment. Relax and reduce stress. Prrcohm9Lcuvj is a free sully that can instruct you on some simple relaxtion and breathing techniques. Http://Triprental.com is a free website that provides teaching videos on relaxation. Also, there are many apps that can be downloaded for mindful relaxation. An sully called YOGA NIDRA will help walk you through mindfulness. Cold compresses. 5. Don't wait!! Take the maximum allowable dosage of prescribed medication at the first sign of migraine. 6. Compliance: Take prescribed medication regularly as directed and at the first sign of a migraine. 7. Communicate: Call your physician when problems arise, especially if your headaches change, increase in frequency/severity, or become associated with neurological symptoms (weakness, numbness, slurred speech, etc.). 8. Headache/pain management therapies: Consider various complementary methods, including medication, behavioral therapy, psychological counselling, biofeedback, massage therapy, acupuncture, dry needling, and other modalities. Such measures may reduce the need for medications. Counseling for pain management, where patients learn to function and ignore/minimize their pain, seems to work very well. 9. Recommend changing family's attention and focus away from patient's headaches. Instead, emphasize daily activities. If first question of day is 'How are your headaches/Do you have a headache today?', then patient will constantly think about headaches, thus making them worse. Goal is to re-direct attention away from headaches, toward daily activities and other distractions. 10. Helpful Websites: www.AmericanHeadacheSociety.org www.migrainetrust.org www.headaches.org www.migraine.org.uk www.achenet.org 11. HEADACHE EXPECTATIONS: There are many types of headaches, and only a rare few in which complete relief can be expected. In general, there is no cure for headache, especially migraine based headaches. There is nothing available that completely prevents headaches from occurring, breaking through, or having periodic flare-ups and fluctuations. Regardless of what you are using on a daily basis for prevention, episodic headaches should still be expected, and periods where frequency may escalate and fluctuate are unavoidable. There is no quick fix for most headaches. Furthermore, the longer you have had high frequency headaches (such as chronic daily headache), the longer it will likely take to expect any improvement. In fact, some people will never improve, regardless of how many medications or other treatments we try. Our treatment strategy is to evaluate for possible causes of your headache, although testing is usually always normal, even in cases of daily continuous headaches for years. Most types of headache such as migraine are electrical brain disorders (similar to how epilepsy is an electrical brain disorders). Therefore, there is no testing that will reveal this dysfunctional electrical circuitry such on MRI, or other testing. We try to find a medication that may help lessen the frequency and/or severity of your headaches. The goal is not to completely stop them from happening, although if that happens, great! Different people respond to different medications, and some people just don't respond to anything, so it's usually a matter of trying different options. We can not predict if or when exactly you will respond to a treatment that we provide. Preventive headache medications take 4-6 weeks to start working, and 2-3 months to see full effect, assuming you reach an effective dose. Therefore, calling or messaging frequently because you have a headache flare prior to the 3 month ricky is unlikely to change anything, and unfortunately there is nothing available that will expedite this, so please try to avoid this. Our recommendation will generally be to give it adequate time first. If you are unable to wait it out for medications to work, we can also try IV infusions for some temporary relief. O In general, the best that preventive medications or other treatments (including Botox) are able to offer in migraine management (variable in other headache types) is a 50% improvement in frequency and/or severity of headache. That is our goal, and any additional benefit is considered a bonus. Some people do significantly better than this, others do not get close to this. Therefore, if your headaches are not improving by at least 3 months on your preventive strategy, contact us and we can discuss further adjustments. Keep in mind that complete headache cure is not a realistic expectation. Our Team: The nursing staff, and medical assistants are a major part of YOUR TREATMENT TEAM and will be handling your phone calls, Vendormate Messages and inquiries, if any. Unless explicitly told otherwise at the time of your office visit, your study results and ensuing treatment plans will be released via Vendormate and discussed during your follow-up appointment. Vendormate: Please ask the schedulers to give you an activation code. The main way of communication is by [employer] rather than phone lines, so if you have not signed up, please do so. [employer] is also the way that you can review your labs and testing. We are not able to contact everyone to tell them results are normal. If you do not hear back from us regarding testing you have had, it should be considered normal or within normal range. If you have any questions about the results, you are free to message us. [employer] is meant for simple questions regarding medications, possible side effects, or other simple straight forward questions in limited sentences, rather than multiple paragraphs of discussion. [employer] is not meant for, or efficient for these complex questions, extensive questions, extensive medication adjustments, complex new symptoms or concerns. These issues beyond simple questions require a follow up visit with myself, one of our physician assistants, nurse practitioners, or a Virtual Visit via computer or smart phone, as detailed further down. Refills: Please pay attention to when your refills will need to be renewed. Due to the volume of phone calls daily, this could potentially take a few days, although we certainly try to honor your refill requests as soon as we can. You should call at least 1 week in advance of needing a refill to ensure you do not run out of medication. Keep in mind that refill requests on Fridays may not be filled until the following week. In regards to blood work, testing, and radiology reports these are released automatically to the patients. We do not comment on most testing on Pressablet in a message or commentary unless there is a concern. You will not receive a message from me of the result unless there is a specific concern of the result I need you to address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 at the request of Dr. Leny Hsu MD for my opinion and advice regarding Abnormal mammogram (primary encounter diagnosis). PAST MEDICAL HISTORY Diagnosis Date Abdominal pain, epigastric Abnormal mammogram 09/14/2016 Acute gastritis without mention of hemorrhage Anxiety Class 1 obesity due to excess calories without serious comorbidity with body mass index (BMI) of 34.0 to 34.9 in adult Depression Disability, developmental Gastroesophageal reflux disease with esophagitis without hemorrhage Hypothyroidism LLQ pain 10/07/2013 Low blood sugar 03/29/2015 Migraines Reflux esophagitis Urinary retention Pablo Arrington PAST SURGICAL HISTORY Procedure Laterality Date COLONOSCOPY 11/28/2021 repeat in 10 years DILATION & CURETTAGE DX&/THER NONOBSTETRIC EGD W/O BRSH SPEC VARICIES INJ 01/30/2022 ESOPHAGOGASTRODUODENOSCOPY TRANSORAL DIAGNOSTIC 07/04/2005 EGD FNA WITH IMAGING Right 09/26/2016 U/S FNA UOQ right breast LIG/TRNSXJ FLP TUBE ABDL/VAG APPR UNI/BI Tubal ligation Current Outpatient Medications Medication Sig Dispense Refill sucralfate (CARAFATE) 100 mg/mL suspension Take 10 mL by mouth two times a day. 600 mL 2 omeprazole (PRILOSEC) 40 mg capsule Take 1 capsule by mouth once daily. 90 capsule 0 venlafaxine (EFFEXOR) 100 mg tablet Take 1 tablet by mouth two times a day. 180 tablet 1 naratriptan (AMERGE) 2.5 mg tablet Take 1 tablet (2.5 mg) by mouth as directed. at the onset of headache; if headache returns or does not fully resolve, the dose may be repeated after 4 hours; do not exceed five(5) mg in 24 hours. NO more than 10 doses in a month. 10 tablet 2 topiramate (TOPAMAX) 25 mg capsule Take 2 capsules by mouth two times a day. 120 capsule 2 albuterol HFA (VENTOLIN HFA) 90 mcg/actuation inhaler Inhale 2 Puffs as instructed every 4 hours as needed for wheezing/shortness of breath. 18 g 4 loratadine (CLARITIN) 10 mg tablet Take 1 tablet by mouth once daily. 30 tablet 5 busPIRone (BUSPAR) 5 mg tablet Take 1 tablet by mouth twice daily. 180 tablet 1 levothyroxine (SYNTHROID) 75 mcg tablet Take 1 tablet by mouth once daily. Take on empty stomach. For Thyroid 90 tablet 1 buPROPion XL (WELLBUTRIN XL) 300 mg 24 hr tablet Take 1 tablet by mouth once daily. 90 tablet 3 VITAMIN D-3 50 mcg (2,000 unit) tablet TAKE 2 TABLETS (4000 UNITS) BY MOUTH ONCE DAILY 180 tablet 3 meloxicam (MOBIC) 15 mg tablet Take 1 tablet by mouth once daily. With food. 30 tablet 0 No current facility-administered medications for this visit. ALLERGIES: Bee Pollen, Adderall [Dextroamphetamine-Amphetamine], Amphetamine, and Imitrex [Sumatriptan] PERSONAL HISTORY: Social History Tobacco Use Smoking status: Former Packs/day: 1 Types: Cigarettes Smokeless tobacco: Former Quit date: 04/25/2015 Vaping Use Vaping Use: Never used Substance Use Topics Alcohol use: No Comment: Occasionally Drug use: No FAMILY HISTORY: FAMILY HISTORY Adopted: Yes Problem Relation Age of Onset Cancer Father lung Heart disease Sister No Known Problems Sister No Known Problems Brother No Known Problems Brother No Known Problems Brother other (Liver Disease) Paternal Grandmother Cancer Paternal Grandfather Lung No Known Problems Son Cancer Paternal Uncle Throat No Ocular Disease No Family History REVIEW OF SYMPTOMS: The review of systems data was entered by the nurse and reviewed by fl Nursing Notes: Giana Guerrero LPN 08/13/2023 3:19 PM Signed REVIEW OF SYSTEMS: General: The patient NOTES fatigue, denies weight loss, denies weight gain, NOTES feeling hot, and NOTES feelings of cold. Eyes: The patient NOTES glaucoma, denies eye injury/surgery, wears glasses (OTC). Ear/Nose/Throat: The patient NOTES allergies, denies hayfever, denies ear infections, and denies bloody noses. Cardiovascular: The patient NOTES chest pain, denies heart disease, NOTES high blood pressure,denies cardiac stent, denies prior heart attack, denies irregular heart beat, denies high cholesterol, denies poor circulation, denies heart failure, other cardiac issues, NOTES claudication, denies cold feet, denies peripheral arterial stent. Respiratory: The patient denies tuberculosis, denies pneumonia, denies frequent cough, denies pulmonary embolism, denies shortness of breath, and denies coughing up blood. Gastrointestinal: The patient denies difficulty swallowing, NOTES acid reflux, denies ulcers, NOTES vomiting, denies jaundice/hepatitis, denies gallbladder problems, denies black or tarry stools, denies hemorrhoids, denies bleeding from rectum, denies diverticulitis, NOTES constipation, denies diarrhea, denies loss of stool control, and NOTES hernias. Kidney/Bladder: The patient denies kidney stones, denies urine infections, and denies bloody urine. Skin: The patient denies a history of skin cancer, denies bleeding/changing moles, and denies a history of skin rash. Neurologic: The patient denies a history of epilepsy/convulsions, NOTES headaches, denies head/spinal injuries, and denies stroke/TIA. Psychiatric: The patient NOTES psychiatric medications, NOTES depression, and denies voices, denies substance abuse. Endocrine: The patient NOTES thyroid disorders, denies diabetes, and denies hormonal problems. Hematologic: The patient denies a history of bruising, denies bleeding, and denies anemia, denies blood clots. Infections: The patient denies a history of measles and mumps, denies rheumatic fever, and denies sexually transmitted diseases. Musculoskeletal: The patient denies back pain/injury, denies back problems, denies sciatica, denies knee/foot trouble, denies arthritis, or denies gout. When was patient's last Mammogram screening? 07/25/2023, 10/18/2022, 09/01/2022 Last Colonoscopy: 11/28/2021 Giana Guerrero LPN PHYSICAL EXAMINATION: General: The patient is 48 year old female, well nourished, well hydrated in no acute distress. The patient is oriented to time, place, and person. VITALS: Last menstrual period 05/07/2023. There is no height or weight on file to calculate BMI. HEENT: Normal cephalic, ataumatic, pupils are equally round, sclera are anicteric, mucous membranes are moist, oropharynx is clear. Neck has no masses, asymmetry or lymphadenopathy. Thyroid is unremarkable. Respiratory: Clear to auscultation and percussion. Normal respiratory excursion and pattern. Cardiac: Examination is regular rate and rhythm. Abdominal exam: Soft, nontender, with no palpable masses. No hepatosplenomegaly. No palpable hernias. Rectal exam: exam deferred Extremities: no clubbing, cyanosis or edema. No adenopathy. Breast: Visual inspection reveals no retractions, nipple inversion, or skin changes. Palpation of the right breast reveals no dominant or suspicious masses. Palpation of the left breast reveals no dominant or suspicious masses. Axillary exam demonstrates no suspicious masses in either the left or right axilla. There is no nipple discharge expressed from either the left or right breast. LABORATORY VALUES: As Noted RADIOLOGIC STUDIES: As Noted Assessment IMPRESSION: Abnormal mammogram (primary encounter diagnosis) PLAN: She will need an ultrasound guided core biopsy of the left breast. The planned surgical procedure was discussed extensively with the patient. The risks, benefits, anticipated outcomes and possible complications were mentioned. My staff has also explained the procedure in understandable terms and the patient was given the option to take printed material concerning the planned procedure. The patient had the opportunity to ask questions concerning the planned procedure. The patient freely consents to the planned procedure. Diagnoses: (R92.8) Abnormal mammogram (primary encounter diagnosis) My findings have been communicated to Dr. Leny Hsu MD via shared medical record. This note will be forwarded to Dr. Leny Hsu MD. Return to Clinic: The patient is instructed to follow-up with me after the testing has been completed. Kirk Cats III, MD documented in this encounter [facility] 07-17-2023 History of Past i llness Narrative Problem Noted Date Diagnosed Date Resolved Date Claudication 07/17/2023 07/17/2023 Low blood sugar 03/29/2015 12/30/2019 Last Assessment & Plan: Patient notes , she was diagnosed with prediabetes in the recent past and describes episodes of shaking when her sugars get low, she has multiple such episodes and would like to get her test strips as she ran out of them. Discussed that she should get her a1c tested Migraines 01/04/2015 01/11/2015 Last Assessment & Plan: The patient has migraines, for atleast 4/5 months. He had it. Since the age of 6 years ago, Has it every other day, imitrex made her allergic. Diarrhea 07/22/2013 01/11/2015 Abdominal pain, epigastric 0 07/22/2013 documented as of this encounter (statuses as of 08/14/2023) [facility]-09[facility]2024 History of Past illness Narrative* Problem Noted Date Diagnosed Date Resolved Date Claudication 07/17/2023 07/17/2023 Low blood sugar 03/29/2015 12/30/2019 Last Assessment & Plan: Patient notes , she was diagnosed with prediabetes in the recent past and describes episodes of shaking when her sugars get low, she has multiple such episodes and would like to get her test strips as she ran out of them. Discussed that she should get her a1c tested Migraines 01/04/2015 01/11/2015 Last Assessment & Plan: The patient has migraines, for atleast 4/5 months. He had it. Since the age of 6 years ago, Has it every other day, imitrex made her allergic. Diarrhea 07/22/2013 01/11/2015 Abdominal pain, epigastric 0 07/22/2013 documented as of this encounter (statuses as of 08/17/2023) [facility]2024 History of Past illness Narrative* Problem Noted Date Diagnosed Date Resolved Date Claudication 07/17/2023 07/17/2023 Low blood sugar 03/29/2015 12/30/2019 Last Assessment & Plan: Patient notes , she was diagnosed with prediabetes in the recent past and describes episodes of shaking when her sugars get low, she has multiple such episodes and would like to get her test strips as she ran out of them. Discussed that she should get her a1c tested Migraines 01/04/2015 01/11/2015 Last Assessment & Plan: The patient has migraines, for atleast 4/5 months. He had it. Since the age of 6 years ago, Has it every other day, imitrex made her allergic. Diarrhea 07/22/2013 01/11/2015 Abdominal pain, epigastric 0 07/22/2013 documented as of this encounter (statuses as of 08/20/2023) [facility]01-09-2024 History of Past illness Narrative* Problem Noted Date Diagnosed Date Resolved Date Claudication 07/17/2023 07/17/2023 Low blood sugar 03/29/2015 12/30/2019 Last Assessment & Plan: Patient notes , she was diagnosed with prediabetes in the recent past and describes episodes of shaking when her sugars get low, she has multiple such episodes and would like to get her test strips as she ran out of them. Discussed that she should get her a1c tested Migraines 01/04/2015 01/11/2015 Last Assessment & Plan: The patient has migraines, for atleast 4/5 months. He had it. Since the age of 6 years ago, Has it every other day, imitrex made her allergic. Diarrhea 07/22/2013 01/11/2015 Abdominal pain, epigastric 0 07/22/2013 documented as of this encounter (statuses as of 08/28/2023) [facility]01-09-2024 History of Past illness Narrative* Problem Noted Date Diagnosed Date Resolved Date Claudication 07/17/2023 07/17/2023 Low blood sugar 03/29/2015 12/30/2019 Last Assessment & Plan: Patient notes , she was diagnosed with prediabetes in the recent past and describes episodes of shaking when her sugars get low, she has multiple such episodes and would like to get her test strips as she ran out of them. Discussed that she should get her a1c tested Migraines 01/04/2015 01/11/2015 Last Assessment & Plan: The patient has migraines, for atleast 4/5 months. He had it. Since the age of 6 years ago, Has it every other day, imitrex made her allergic. Diarrhea 07/22/2013 01/11/2015 Abdominal pain, epigastric 0 07/22/2013 documented as of this encounter (statuses as of 09/06/2023) [facility]01[facility]24 History of Past illness Narrative* Problem Noted Date Diagnosed Date Resolved Date Claudication 07/17/2023 07/17/2023 Low blood sugar 03/29/2015 12/30/2019 Last Assessment & Plan: Patient notes , she was diagnosed with prediabetes in the recent past and describes episodes of shaking when her sugars get low, she has multiple such episodes and would like to get her test strips as she ran out of them. Discussed that she should get her a1c tested Migraines 01/04/2015 01/11/2015 Last Assessment & Plan: The patient has migraines, for atleast 4/5 months. He had it. Since the age of 6 years ago, Has it every other day, imitrex made her allergic. Diarrhea 07/22/2013 01/11/2015 Abdominal pain, epigastric 0 07/22/2013 documented as of this encounter (statuses as of 09/06/2023) [facility]01-[facility] History of Past illness Narrative* Problem Noted Date Diagnosed Date Resolved Date Claudication 07/17/2023 07/17/2023 Low blood sugar 03/29/2015 12/30/2019 Last Assessment & Plan: Patient notes , she was diagnosed with prediabetes in the recent past and describes episodes of shaking when her sugars get low, she has multiple such episodes and would like to get her test strips as she ran out of them. Discussed that she should get her a1c tested Migraines 01/04/2015 01/11/2015 Last Assessment & Plan: The patient has migraines, for atleast 4/5 months. He had it. Since the age of 6 years ago, Has it every other day, imitrex made her allergic. Diarrhea 07/22/2013 01/11/2015 Abdominal pain, epigastric 0 07/22/2013 documented as of this encounter (statuses as of 09/19/2023) [facility]01-09-2024 History of Past illness Narrative* Problem Noted Date Diagnosed Date Resolved Date Claudication 07/17/2023 07/17/2023 Low blood sugar 03/29/2015 12/30/2019 Last Assessment & Plan: Patient notes , she was diagnosed with prediabetes in the recent past and describes episodes of shaking when her sugars get low, she has multiple such episodes and would like to get her test strips as she ran out of them. Discussed that she should get her a1c tested Migraines 01/04/2015 01/11/2015 Last Assessment & Plan: The patient has migraines, for atleast 4/5 months. He had it. Since the age of 6 years ago, Has it every other day, imitrex made her allergic. Diarrhea 07/22/2013 01/11/2015 Abdominal pain, epigastric 0 07/22/2013 documented as of this encounter (statuses as of 09/20/2023) [facility]01[facility] History of Past illness Narrative* Problem Noted Date Diagnosed Date Resolved Date Claudication 07/17/2023 07/17/2023 Low blood sugar 03/29/2015 12/30/2019 Last Assessment & Plan: Patient notes , she was diagnosed with prediabetes in the recent past and describes episodes of shaking when her sugars get low, she has multiple such episodes and would like to get her test strips as she ran out of them. Discussed that she should get her a1c tested Migraines 01/04/2015 01/11/2015 Last Assessment & Plan: The patient has migraines, for atleast 4/5 months. He had it. Since the age of 6 years ago, Has it every other day, imitrex made her allergic. Diarrhea 07/22/2013 01/11/2015 Abdominal pain, epigastric 0 07/22/2013 documented as of this encounter (statuses as of 09/20/2023) [facility]01-[facility] History of Past illness Narrative* Problem Noted Date Diagnosed Date Resolved Date Claudication 07/17/2023 07/17/2023 Low blood sugar 03/29/2015 12/30/2019 Last Assessment & Plan: Patient notes , she was diagnosed with prediabetes in the recent past and describes episodes of shaking when her sugars get low, she has multiple such episodes and would like to get her test strips as she ran out of them. Discussed that she should get her a1c tested Migraines 01/04/2015 01/11/2015 Last Assessment & Plan: The patient has migraines, for atleast 4/5 months. He had it. Since the age of 6 years ago, Has it every other day, imitrex made her allergic. Diarrhea 07/22/2013 01/11/2015 Abdominal pain, epigastric 0 07/22/2013 documented as of this encounter (statuses as of 10/01/2023) [facility]01-09-20[facility] History of Past illness Narrative* Problem Noted Date Diagnosed Date Resolved Date Claudication 07/17/2023 07/17/2023 Low blood sugar 03/29/2015 12/30/2019 Last Assessment & Plan: Patient notes , she was diagnosed with prediabetes in the recent past and describes episodes of shaking when her sugars get low, she has multiple such episodes and would like to get her test strips as she ran out of them. Discussed that she should get her a1c tested Migraines 01/04/2015 01/11/2015 Last Assessment & Plan: The patient has migraines, for atleast 4/5 months. He had it. Since the age of 6 years ago, Has it every other day, imitrex made her allergic. Diarrhea 07/22/2013 01/11/2015 Abdominal pain, epigastric 0 07/22/2013 documented as of this encounter (statuses as of 10/12/2023) [facility]01-09-2024 History of Past illness Narrative* Problem Noted Date Diagnosed Date Resolved Date Claudication 07/17/2023 07/17/2023 Low blood sugar 03/29/2015 12/30/2019 Last Assessment & Plan: Patient notes , she was diagnosed with prediabetes in the recent past and describes episodes of shaking when her sugars get low, she has multiple such episodes and would like to get her test strips as she ran out of them. Discussed that she should get her a1c tested Migraines 01/04/2015 01/11/2015 Last Assessment & Plan: The patient has migraines, for atleast 4/5 months. He had it. Since the age of 6 years ago, Has it every other day, imitrex made her allergic. Diarrhea 07/22/2013 01/11/2015 Abdominal pain, epigastric 0 07/22/2013 documented as of this encounter (statuses as of 10/26/2023) [facility]12-08-2023 History of Present illness Narrative* Kev Manning, AUNG - 06/15/2023 3:23 PM EST 1. Migraine without aura and without status migrainosus, not intractable NO ocular health pathology upon dilated exam 2. Presbyopia Recommend OTC readers 3. Optic cupping of both eyes Normal OCT both eyes Repeat 1-2 years Follow-up in 1 year or sooner as needed Kev Manning OD June 15, 2023 3:23 PM [facility] Inst[facility]* Patient Instructions* Kev Manning, OD - 06/15/2023 2:44 PM EST Use +1.50 [id number] reading glasses for near work [facility] Miscellaneous Notes* Telephone Encounter - Augustina Watts LPN - 06/07/2023 10:51 AM EST Phone call placed patient advised (see prior provider encounter) Patient took notes during call, in order to clarify dosages, Notepad document was created and mailed to patients listed address to assist in choosing correct OTC B12, Folic Acid supplement. Patient agreed with plan of care. Augustina Watts LPN * Telephone Encounter - Kristy Asencio PA-C - 06/07/2023 8:33 AM EST Patient's laboratory studies show a low B12 at 292, anything below 400 can cause neurologic symptoms. Will need to supplement this with regimen below. B12 <400: Vitamin B12 level <400, which indicates deficiency. You may start vitamin B12 supplements [available [id number]] orally, according to the following regimen: Vitamin B12, 2 mg (or 2000 micrograms) by mouth daily x1 month. Take together with folic acid 1 mg daily. THEN maintenance with 1 mg (or 1000 micrograms) daily thereafter. Your PCP may recheck vitamin B12 levels in about 6 months to ensure adequate repletion. [facility] Instructions* Patient Instructions* Kristy Asencio PA-C - 06/05/2023 9:23 AM EST Preventative: Continue topiramate 100mg, start supplements noted below. Abortive: stop Maxalt and take Amerge with onset of headache (no more than 10 doses a month) Tilt table test Sleep study to look for sleep apnea Increase water to 60 ounces a day See an eye doctor in the next few weeks Laboratory studies Follow up in three months Headache Preventive Treatment: Please keep in mind that it takes 4-6 weeks for the medication to start working well and 2-3 monthsat the appropriate dose before deciding if it will be useful or not. If it is not helping at all bythis time, then we will discuss other medications to try. Supplements may take 3-6 months until yousee full effect. Natural supplements: Magnesium Oxide 500 mg at bed Coenzyme Q10 300 mg in AM Vitamin B2- 200 mg twice a day Feverfew 50 mg twice a day Vitamins and herbs that show potential Magnesium: Magnesium (250 mg twice a day or 500 mg at bed) has a relaxant effect on smooth muscles such as blood vessels. Individuals suffering from frequent or daily headache usually have low magnesium levels which can be increase with daily supplementation of 400-750 mg. Three trials found 40-90%average headache reduction when used as a preventative. Magnesium also demonstrated the benefit in menstrually related migraine. Magnesium is part of the messenger system in the serotonin cascade andit is a good muscle relaxant. It is also useful for constipation which can be a side effect of other medications used to treat migraine. Good sources include nuts, whole grains, and tomatoes. Magnesium comes in many different forms: Magnesium glycinate is a good choice for those with a sensitive stomach who have gastrointestinal side effects such as diarrhea with other forms of magnesium. It is anecdotally also helpful with anxiety and sleep. Magnesium threonate also has low risk of gastrointestinal side effects and anecdotally helpful with cognitive function and brain fog symptoms. Magnesium malate has low gastrointestinal side effects and is reportedly more energizing and anecdotally often helpful in fibromyalgia and chronic fatigue syndrome. Magnesium citrate is one of the most studied, popular, and well-absorbed forms of magnesium. It can also be mixed easily with liquids if you can't take pills. However, it comes with a higher risk of diarrhea and gastrointestinal side effects, although this could be helpful forthose with constipation. Magnesium oxide is also well studied, cheap, and often used for heartburn and indigestion. However, it is not well absorbed and can have some laxative side effects as well, so can also be helpful for constipation. Riboflavin (vitamin B 2) 200 mg twice a day. This vitamin assists nerve cells in the production of ATP a principal energy storing molecule. It is necessary for many chemical reactions in the body. There have been at least 3 clinical trials of riboflavin using 400 mg per day all of which suggested that migraine frequency can be decreased. All 3 trials showed significant improvement in over half ofmigraine sufferers. The supplement is found in bread, cereal, milk, meat, and poultry. Most Americans get more riboflavin than the recommended daily allowance, however riboflavin deficiency is not necessary for the supplements to help prevent headache. Feverfew: Feverfew is a common garden herb ewiiaapaayp to [place] and popular in [place] as a treatment for disorders typically controlled by aspirin. The mechanism of action is unknown but is believed to be related to a chemical called parthenolide which helps the body use serotonin more effectively. Serotonin helps prevent migraine and assists with resolution when it occurs. Parthenolide also inhibits the release of histamine which is linked to pain and inflammation. Consistency of active ingredients in different products can be a problem. Some formulations don't have the active ingredient (parthenolide) that prevents migraine. A parthenolide content of 0.2% is generally recommended. Typical dosage is one capsule 3 times a day. Coenzyme Q10: This is present in almost all cells in the body and is critical component for the conversion of energy. Recent studies have shown that a nutritional supplement of CoQ10 can reduce the frequency of migraine attacks by improving the energy production of cells as with riboflavin. Doses of 150 mg twice a day have been shown to be effective. Melatonin: Increasing evidence shows correlation between melatonin secretion and headache conditions. Melatonin supplementation has decreased headache intensity and duration. It is widely used as a sleep aid. Sleep is natures way of dealing with migraine. A dose of 3 mg is recommended to start for headaches including cluster headache. Higher doses up to 15 mg has been reviewed for use in Cluster headache and have been used. The rationale behind using melatonin for cluster is that many theories regarding the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 sooner should any symptoms change or worsen. Maximus was seen today for new patient. Diagnoses and all orders for this visit: Migraine without aura and without status migrainosus, not intractable - CONSULT TO NEUROLOGY - CONSULT TO OPTOMETRY; Future Syncope and collapse - TILT TABLE EVALUATION Orthostatic lightheadedness - TILT TABLE EVALUATION Obstructive sleep apnea - HOME SLEEP APNEA TEST (HSAT); Future Neuropathy - HGB A1C; Future - PROT ELECT SERUM WITH LAURY AND INTERP; Future - VITAMIN B12 BLOOD; Future - C-REACTIVE PROTEIN (CRP); Future - SED RATE WESTERGREN; Future Blurred vision, bilateral - CONSULT TO OPTOMETRY; Future Other orders - naratriptan (AMERGE) 2.5 mg tablet; Take 1 tablet (2.5 mg) by mouth as directed. at the onset of headache; if headache returns or does not fully resolve, the dose may be repeated after 4 hours; do not exceed five(5) mg in 24 hours. NO more than 10 doses in a month. All options for treatment discussed. Preventative: Supplements and Topamax Abortive: Amerge Imaging: None Labs: B12, neuropathy labs Tilt table test Sleep study She should return to see me in 3 months. I spent a total of 55 minutes on the date of the service which included preparing to see the patient, [id number] patient care, completing clinical documentation, obtaining and/or reviewing separately obtained history, performing a medically appropriate examination, counseling and educating the pat ient/family/caregiver, and ordering medications, tests, or procedures. Kristy Asencio PA-C [facility] This document has been created with the use of voice recognition technology. It may contain inaccuracies: (e.g. misspellings, inaccurate syntax or word sense) that have escaped review. documented in this encounterK[facility]11-21-2023 Miscellaneous Notes* Telephone Encounter - José Manuel Mcclure MA - 05/29/2023 8:14 AM EST Patient phones requesting refills as follows: Requested Prescriptions Pending Prescriptions Disp Refills sucralfate (CARAFATE) 100 mg/mL suspension [Pharmacy Med Name: Sucralfate 1GM/10ML SUSP] 420 mL Sig: TAKE 10ML BY MOUTH TWICE A DAY Please review and advise. José Manuel Mcclure MA documented in this encounterK[facility]11-17-2023 Miscellaneous Notes* Telephone Encounter - Shraddha Tucker RN - 05/25/2023 8:46 AM EST Date of last office: 05/14/2023 Date of next office visit: 2023 Requested Prescriptions Pending Prescriptions Disp Refills topiramate (TOPAMAX) 25 mg capsule 120 capsule 2 Sig: Take 2 capsules by mouth two times a day. Date of Last Labs: 12/14/2022 Please advise. Thank you. Shraddha Tucker RN. documented in this encounterK[facility]11-06-2023 History of Present illness Narrative* Leny Hsu MD - 05/14/2023 3:04 PM EST Chief Complaint Patient presents with: Headache: Patient requesting increase amt dispensed or increase dose of migraine medication HPI Maximus Bradley is a 47 year old female who presents here today for Above Complaints.. I increased patient's Topmax to 50 mg BID for migraine prophylaxis. Patient states that headaches have not improved since increasing her dosage. Has had 3 headaches this week and describes headache as pain over forehead. Has not had nausea, vomiting, photophobia, phonophobia with headaches this week. Headaches lasting all day. Taking Maxalt which resolves her headaches. No known triggers for her migraines. Tried going to chiropractor which has not helped with headaches. Saw neurology in the past who recommended botox which she refused. Not interested in new rx. Denies nasal congestion, rhinorrhea, sinus pain/pressure. Past medical history, appointments, medications, allergies reviewed. Previous Medical History PAST MEDICAL HISTORY Diagnosis Date Abdominal pain, epigastric Abnormal mammogram 09/14/2016 Acute gastritis without mention of hemorrhage Anxiety Class 1 obesity due to excess calories without serious comorbidity with body mass index (BMI) of 34.0 to 34.9 in adult Depression Disability, developmental Gastroesophageal reflux disease with esophagitis without hemorrhage Hypothyroidism LLQ pain 10/07/2013 Low blood sugar 03/29/2015 Reflux esophagitis Urinary retention Pablo Arrington Previous Surgical History PAST SURGICAL HISTORY Procedure Laterality Date COLONOSCOPY 11/28/2021 repeat in 10 years DILATION & CURETTAGE DX&/THER NONOBSTETRIC EGD W/O BRSH SPEC VARICIES INJ 01/30/2022 ESOPHAGOGASTRODUODENOSCOPY TRANSORAL DIAGNOSTIC 07/04/2005 EGD FNA WITH IMAGING Right 09/26/2016 U/S FNA UOQ right breast LIG/TRNSXJ FLP TUBE ABDL/VAG APPR UNI/BI Tubal ligation Family History FAMILY HISTORY Adopted: Yes Problem Relation Age of Onset Cancer Father lung Heart disease Sister No Known Problems Sister No Known Problems Brother No Known Problems Brother No Known Problems Brother other (Liver Disease) Paternal Grandmother Cancer Paternal Grandfather Lung No Known Problems Son Cancer Paternal Uncle Throat Patient Allergies ALLERGIES Allergen Reactions Bee Pollen Anaphylaxis Adderall [Dextroamp* Itching Amphetamine Itching Imitrex [Sumatripta* Other: See Comments palpitations Current Medications Current Outpatient Medications on File Prior to Visit Medication Sig albuterol HFA (VENTOLIN HFA) 90 mcg/actuation inhaler Inhale 2 Puffs as instructed every 4 hours asneeded for wheezing/shortness of breath. omeprazole (PRILOSEC) 40 mg capsule Take 20 mg by mouth. sucralfate (CARAFATE) 100 mg/mL suspension Take 10 mL by mouth two times a day. loratadine (CLARITIN) 10 mg tablet Take 1 tablet by mouth once daily. busPIRone (BUSPAR) 5 mg tablet Take 1 tablet by mouth twice daily. levothyroxine (SYNTHROID) 75 mcg tablet Take 1 tablet by mouth once daily. Take on empty stomach. For Thyroid topiramate (TOPAMAX) 25 mg capsule Take 2 capsules by mouth twice daily. rizatriptan (MAXALT) 10 mg tablet Take one pill at the onset of headache, repeat in a couple hours if not better, no more than 2 tablets a day and no more than 4 tabs a week buPROPion XL (WELLBUTRIN XL) 300 mg 24 hr tablet Take 1 tablet by mouth once daily. venlafaxine (EFFEXOR) 100 mg tablet Take 1 tablet by mouth twice daily. VITAMIN D-3 50 mcg (2,000 unit) tablet TAKE 2 TABLETS (4000 UNITS) BY MOUTH ONCE DAILY meloxicam (MOBIC) 15 mg tablet Take 1 tablet by mouth once daily. With food. No current facility-administered medications on file prior to visit. Social History Social History Tobacco Use Smoking status: Former Packs/day: 1 Types: Cigarettes Smokeless tobacco: Former Quit date: 04/25/2015 Vaping Use Vaping Use: Never used Substance Use Topics Alcohol use: No Comment: Occasionally Drug use: No Review of Symptoms REVIEW OF SYS TEMS GENERAL: No weight loss, malaise or fevers HEENT: No changes in hearing or vision, no nose bleeds or other nasal problems NECK: Negative for lumps, goiter, pain and significant neck swelling RESPIRATORY: Negative for cough, hemoptysis, wheezing, COPD, dyspnea or shortness of breath CARDIOVASCULAR: Negative for chest pain, leg swelling, hypertension, CHF or palpitations GI: No nausea, vomiting, or diarrhea SKIN: Negative for lesions, rash, and itching EXAM: BP 124/70 Pulse 82 Resp 16 LMP 01/04/2023 (Approximate) SpO2 97% General Appearance: Well appearing, alert, in no acute distress, well-hydrated, well nourished.. Head: Normocephalic, no masses, lesions, tenderness or abnormalities. Nose/Sinuses: Nares normal, septum midline, mucosa normal, no drainage or sinus tenderness. Lungs: Lungs clear to auscultation. No wheezing, rhonchi, rales.. Heart: RRR without murmur, gallop, or rubs. No ectopy. Health Maintenance List Hepatitis B Vaccine(1 of 3 - 3-dose series) Never done Covid-19 Vaccine(1) due on 08/15/2023 Mammogram Screening due on 09/01/2023 Annual PCP Team Chronic Disease Visit due on 04/03/2024 BP Controlled (<130/80) due on 04/18/2024 Pap Testing due on 07/28/2025 HPV Testing due on 07/28/2025 Lipid Screening due on 09/16/2025 Diabetes Screening due on 12/13/2025 DTaP,Tdap,Td Vaccine(2 - Td or Tdap) due on 10/01/2029 Colorectal Cancer Screening due on 11/29/2031 Influenza Vaccine Completed Hepatitis C Screening Completed HIV Screening Completed HPV Vaccine Aged Out ASSESSMENT/PLAN: 1. Migraine without aura and without status migrainosus, not intractable - ICD9: 346.10, ICD10: G43.009 Patient refusing new rx. Will continue topamax and maxalt and refer to neurology. Discussed headache diary and avoidance of triggers. - CONSULT TO NEUROLOGY Leny Hsu MD documented in this encounterK[facility]11-01-2023 Miscellaneous Notes* Telephone Encounter - José Manuel Mcclure MA - 05/09/2023 9:27 AM EDT Patient given results to esophagram. She would like to give the EGD some thought at this time. Patient advised to give us a call and we can place an order if she decides to go through with it. documented in this encounterK[facility]10-31-2023 NoteHNO ID: [id number] Author: Mi Newton RT(Jesus) Service: Radiology Author Type: Technologist Type: Progress Notes Filed: 05/08/2023 2:25 PM Note Text: Radiology Service Progress Note PATIENT NAME: Maximus Bradley DATE OF SERVICE: May 08, 2023 TIME: 2:25 PM PATIENT IDENTITY VERIFICATION COMPLETED USING TWO (2) IDENTIFIERS: Name and Date of confirmed by patient verbally. FALL SCREENING: Has the patient had 2 falls in the last year or 1 fall with injury or currently using an Ambulatory Assistive Device (Walker, Cane, Wheelchair, Crutches, etc.)? No PATIENT GENDER DATA: Female. status: : No status: NO. PATIENT RELEVANT IMPLANT DATA REVIEWED: Not Applicable RADIOLOGY DEPARTMENT: General X-ray: Exam(s) Completed: GI/ Procedure(s): Esophogram with barium contrast PERIPHERAL IV DATA: Not applicable SIGNED BY: RT Colin(Jesus) May 08, 2023 2:25 [facility]10-31-2023 History of Present illness Narrative* Mi Newton RT(Jesus) - 05/08/2023 2:00 PM EDT Radiology Service Progress Note PATIENT NAME: Maximus Bradley DATE OF SERVICE: May 08, 2023 TIME: 2:25 PM PATIENT IDENTITY VERIFICATION COMPLETED USING TWO (2) IDENTIFIERS: Name and Date of confirmedby patient verbally. FALL SCREENING: Has the patient had 2 falls in the last year or 1 fall with injury or currently using an Ambulatory Assistive Device (Walker, Cane, Wheelchair, Crutches, etc.)? No PATIENT GENDER DATA: Female. status: : No status: NO. PATIENT RELEVANT IMPLANT DATA REVIEWED: Not Applicable RADIOLOGY DEPARTMENT: General X-ray: Exam(s) Completed: GI/ Procedure(s): Esophogram with barium contrast PERIPHERAL IV DATA: Not applicable SIGNED BY: RT Colin(R) May 08, 2023 2:25 PM documented in this encounterK[facility]10-24-2023 Miscellaneous Notes* Telephone Encounter - Kasia Dominique OCCA - 05/01/2023 2:52 PM EDT KRIS 04/03/23 NOV 06/18/23 * Telephone Encounter - Yamilet Middleton - 05/01/2023 2:36 PM EDT Patient has been identified by name and date of : Yes Requested Prescriptions Pending Prescriptions Disp Refills albuterol HFA (VENTOLIN HFA) 90 mcg/actuation inhaler 18 g 4 Sig: Inhale 2 Puffs as instructed every 4 hours as needed for wheezing/shortness of breath. RX INSTRUCTIONS: Pharmacy initiated this request. No need to notify patient. Yamilet Shine documented in this encounterKettering [facility]10-11-2023 Miscellaneous Notes* Telephone Encounter - Yessenia Lim - 04/18/2023 11:47 AM EDT Faxed over fibroscan and patient information to [facility] Infectious disease. Asked for them to contactpatient direct to schedule. Yessenia Lim documented in this encounterKettering [facility]10-11-2023 Instructions* Patient Instructions* Nicole Solano PA-C - 04/18/2023 11:08 AM EDT Chew all foods thoroughly and avoid tough meats, nuts, seeds, raw fruits and vegetables and dried fruit. Please go to ER if food is getting stuck and not completely passing through esophagus or trouble breathing occurs. Some soft diet food alternatives are included below: Hot cereal, iuski-[id number] cereal soaked in milk, canned fruit, soft cooked vegetables, juice, scrambled eggs, ground meat, cooked beans, cooked peas, cottage cheese, yogurt without fruit, custards, puddings, cream soups, noodles Calorie/nutrient rich drinks such as Boost/Ensure as appropriate for weight control Drink water with meals and take sips periodically to keep hydrated and help food pass down esophagus Gargle with warm salt water to help reduce any swelling or irritation that may be causing the difficulty in swallowing Oral lozenges can help eliminate dryness because this increases saliva production documented in this encounterKettering [facility]10-11-2023 History of Present illness Narrative* Nicole Solano PA-C - 04/18/2023 10:34 AM EDT CHIEF COMPLAINT: Patient presents with: Hiatal hernia HPI Maximus Bradley is a 47 year old female here today for Hiatal hernia. Seen last for GERD, IBS. Didnot obtain KUB ordered last OV. Was previously on Protonix BID for GERD which she is no longer taking, taking Prilosec 40 mg daily with minimal relief. Having esophageal dysphagia with solids. Bms are once per week, still alternating between constipation/diarrhea. Stopped stool softeners, can't remember why. Went to [facility] 02/2023 due to anal bleeding, blood counts were normal, advised to start Miralax daily. Reports no imaging was performed. Denies weight loss, emesis, abd pain. CT abd 05/2022 IMPRESSION: 1. No acute pathology 2. Small sliding hiatal hernia 03/2022 Celiac negative Reports normal GES at [facility] 2020 Colon 11/2021 non-bleeding internal hemorrhoids, no specimens EGD 01/2022 small HH, mild reactive changes in distal esophagus, normal gastric biopsies RUQ US 12/2021 IMPRESSION: Slightly coarsened hepatic echotexture with heterogeneous echogenicity which can be seen in association with fatty infiltration. Unremarkable gallbladder. HIDA 12/2021 IMPRESSION: * No scintigraphic evidence of obstructive acute cholecystitis. * Normal gallbladder ejection fraction. * Patent CBD. Component Latest Ref Rng & Units 12/13/2022 WBC 3.70 - 11.00 k/uL 11.12 (H) RBC 3.90 - 5.20 m/uL 4.84 Hemoglobin 11.5 - 15.5 g/dL 13.0 Hematocrit 36.0 - 46.0 % 39.7 MCV 80.0 - 100.0 fL 82.0 MCH 26.0 - 34.0 pg 26.9 MCHC 30.5 - 36.0 g/dL 32.7 RDW-CV 11.5 - 15.0 % 12.9 Platelet Count 150 - 400 k/uL 501 (H) MPV 9.0 - 12.7 fL 9.6 Neut% % 65.3 Abs Neut (ANC) 1.45 - 7.50 k/uL 7.27 Lymph% % 23.3 Abs Lymph 1.00 - 4.00 k/uL 2.59 Fannin% % 5.7 Abs Fannin <0.87 k/uL 0.63 Eosin% % 4.4 Abs Eosin <0.46 k/uL 0.49 (H) Baso% % 0.9 Abs Baso <0.11 k/uL 0.10 Immature Gran % % 0.4 IMMATURE GRANS (ABS) <0.10 k/uL 0.04 NRBC /100 WBC 0.0 Absolute nRBC <0.01 k/uL <0.01 DTYPE Auto Protein, Total 6.3 - 8.0 g/dL 6.6 Albumin 3.9 - 4.9 g/dL 4.0 Calcium 8.5 - 10.2 mg/dL 9.1 Bilirubin, Total 0.2 - 1.3 mg/dL 0.4 Alkaline Phosphatase 34 - 123 U/L 88 AST 13 - 35 U/L 11 (L) ALT 7 - 38 U/L 10 Glucose 74 - 99 mg/dL 84 BUN 7 - 21 mg/dL 7 Creatinine 0.58 - 0.96 mg/dL 0.87 Sodium 136 - 144 mmol/L 140 Potassium 3.7 - 5.1 mmol/L 3.7 Chloride 97 - 105 mmol/L 104 CO2 22 - 30 mmol/L 23 Anion Gap 9 - 18 mmol/L 13 eGFR >=60 mL/min/1.73m 83 TSH 0.270 - 4.200 mIU/L 1.040 Magnesium 1.7 - 2.3 mg/dL 1.9 OV 07/2022 Maximus Bradley is a 47 year old female here today for f/u GERD, upper abd pain, IBS. CT abd ordered last OV which showed no acute process, sliding HH. No improvement in pain with Bentyl PRN. Advised to start Miralax full cap daily, consider elastase testing. Taking stool softeners daily. Bms are 2-3 soft Bms daily, no blood. Feels like constipation could be better. Admits to persistent bloating, upper abdominal pain, early satiety, nausea. Protonix 40 mg BID working well for GERD. Current Outpatient Medications Medication Sig albuterol HFA (VENTOLIN HFA) 90 mcg/actuation inhaler Inhale 2 Puffs as instructed every 4 hours asneeded for wheezing/shortness of breath. buPROPion XL (WELLBUTRIN XL) 300 mg 24 hr tablet Take 1 tablet by mouth once daily. busPIRone (BUSPAR) 5 mg tablet Take 1 tablet by mouth twice daily. levothyroxine (SYNTHROID) 75 mcg tablet Take 1 tablet by mouth once daily. Take on empty stomach. For Thyroid loratadine (CLARITIN) 10 mg tablet Take 1 tablet by mouth once daily. meloxicam (MOBIC) 15 mg tablet Take 1 tablet by mouth once daily. With food. rizatriptan (MAXALT) 10 mg tablet Take one pill at the onset of headache, repeat in a couple hours if not better, no more than 2 tablets a day and no more than 4 tabs a week topiramate (TOPAMAX) 25 mg capsule Take 2 capsules by mouth twice daily. venlafaxine (EFFEXOR) 100 mg tablet Take 1 tablet by mouth twice daily. VITAMIN D-3 50 mcg (2,000 unit) tablet TAKE 2 TABLETS (4000 UNITS) BY MOUTH ONCE DAILY No current facility-administered medications for this visit. ALLERGIES Allergen Reactions Bee Pollen Anaphylaxis Adderall [Dextroamp* Itching Amphetamine Itching Imitrex [Sumatripta* Other: See Comments palpitations Social History Tobacco Use Smoking status: Former Packs/day: 1 Types: Cigarettes Smokeless tobacco: Former Quit date: 04/25/2015 Vaping Use Vaping Use: Never used Substance Use Topics Alcohol use: No Comment: Occasionally Drug use: No PAST MEDICAL HISTORY Diagnosis Date Abdominal pain, epigastric Abnormal mammogram 09/14/2016 Acute gastritis without mention of hemorrhage Anxiety Class 1 obesity due to excess calories without serious comorbidity with body mass index (BMI) of 34.0 to 34.9 in adult Depression Disability, developmental Gastroesophageal reflux disease with esophagitis without hemorrhage Hypothyroidism LLQ pain 10/07/2013 Low blood sugar 03/29/2015 Reflux esophagitis Urinary retention Pablo Arrington PAST SURGICAL HISTORY Procedure Laterality Date COLONOSCOPY 11/28/2021 repeat in 10 years DILATION & CURETTAGE DX&/THER NONOBSTETRIC EGD W/O [facility]SH SPEC VARICIES INJ 01/30/2022 ESOPHAGOGASTRODUODENOSCOPY TRANSORAL DIAGNOSTIC 07/04/2005 EGD FNA WITH IMAGING Right 09/26/2016 U/S FNA UOQ right breast LIG/TRNSXJ FLP TUBE ABDL/VAG APPR UNI/BI Tubal ligation FAMILY HISTORY Adopted: Yes Problem Relation Age of Onset Cancer Father lung Heart disease Sister No Known Problems Sister No Known Problems Brother No Known Problems Brother No Known Problems Brother other (Liver Disease) Paternal Grandmother Cancer Paternal Grandfather Lung No Known Problems Son Cancer Paternal Uncle Throat REVIEW OF SYSTEMS Review of Systems Constitutional: Positive for appetite change and unexpected weight change. HENT: Positive for sore throat and trouble swallowing. Respiratory: Positive for cough. Cardiovascular: Positive for leg swelling. Gastrointestinal: Positive for abdominal distention, abdominal pain and diarrhea. Gas, Heartburn All other systems reviewed and are negative. PHYSICAL EXAM BP 118/72 Pulse 82 Ht 167.6 cm (5' 6") Wt 90.3 kg (199 lb) LMP 01/04/2023 (Approximate) BMI 32.12 kg/m Physical Exam Constitutional: General: She is not in acute distress. Appearance: Normal appearance. She is normal weight. She is not ill-appearing, toxic-appearing or diaphoretic. HENT: Head: Normocephalic and atraumatic. Nose: Nose normal. Eyes: General: No scleral icterus. Right eye: No discharge. Left eye: No discharge. Extraocular Movements: Extraocular movements intact. Conjunctiva/sclera: Conjunctivae normal. Pupils: Pupils are equal, round, and reactive to light. Cardiovascular: Rate and Rhythm: Normal rate and regular rhythm. Pulses: Normal pulses. Heart sounds: Normal heart sounds. No murmur heard. No friction rub. No gallop. Pulmonary: Effort: No respiratory distress. Breath sounds: Normal breath sounds. No stridor. No wheezing, rhonchi or rales. Chest: Chest wall: No tenderness. Abdominal: General: Abdomen is flat. Bowel sounds are normal. There is no distension. Palpations: Abdomen is soft. There is no mass. Tenderness: There is no abdominal tenderness. There is no right CVA tenderness, left CVA tenderness, guarding or rebound. Hernia: No hernia is present. Musculoskeletal: General: Normal range of motion. Cervical back: Normal range of motion and neck supple. Skin: General: Skin is warm and dry. Neurological: General: No focal deficit present. Mental Status: She is alert and oriented to person, place, and time. Psychiatric: Mood and Affect: Mood normal. Behavior: Behavior normal. Assessment/Plan (K44.9, K21.9) Hiatal hernia with GERD without esophagitis (primary encounter diagnosis) (R13.19) Esophageal dysphagia (K58.2) Irritable bowel syndrome with both constipation and diarrhea (K76.0) Fatty metamorphosis of liver 1. Hiatal hernia with GERD without esophagitis - sucralfate (CARAFATE) 1 gram tablet; Take 1 tablet by mouth two times a day. Dispense: 120 tablet; Refill: 0 - Continue Prilosec 40 mg daily - Start Carafate BID - Follow reflux precautions - Obtain esophagram, consider HREM pending results 2. Esophageal dysphagia - XR ESOPHAGRAM; Future - sucralfate (CARAFATE) 1 gram tablet; Take 1 tablet by mouth two times a day. Dispense: 120 tablet; Refill: 0 3. Irritable bowel syndrome with both constipation and diarrhea - XR ABDOMEN 1V SUPINE; Future - Obtain KUB to assess stool burden - Was previously on stool softeners, stopped and she does not remember why - Has Miralax at home but she is concerned about trying it due to the fact that it is powder form. Pt is not very compliant with taking meds in general suspect this could be 2/2 to her hx of DD - Continue plenty of fluid intake 4. Fatty metamorphosis of liver - DDI VIBRATION CONTROLLED TRANSIENT ELASTOGRAPHY (VCTE) - Normal LFTs 12/2022 - Check fibroscan Follow up in office 3 months/PRN. I spent a total of 22 minutes on the date of the service which included preparing to see the patient, [id number] patient care, completing clinical documentation, obtaining and/or reviewing separately obtained history, performing a medically appropriate examination, counseling and educating the pat ient/family/caregiver, ordering medications, tests, or procedures, communicating with other HCPs (not separately reported), independently interpreting results (not separately reported), communicatingresults to the patient/family/caregiver, and care coordination (not separately reported). Nicole Solano PA-C April 18, 2023 11:10 AM documented in this encounterK[facility]09-21-2023 Miscellaneous Notes* Telephone Encounter - Maya Hernandez RN - 03/29/2023 4:00 PM EDT Patient has been identified by name and date of : Yes, Provider Dr Hsu Date 03/29/23 Time 1601. Pharmacy phones for refill(s): Requested Prescriptions Pending Prescriptions Disp Refills busPIRone (BUSPAR) 5 mg tablet 180 tablet 1 Sig: Take 1 tablet by mouth twice daily. levothyroxine (SYNTHROID) 75 mcg tablet 90 tablet 1 Sig: Take 1 tablet by mouth once daily. Take on empty stomach. For Thyroid Date of last office visit in primary care: 03/16/23 Future visit: 06/18/23 Last 2 Encounter Wt Readings: Date: Wt: 03/16/2023 90.5 kg (199 lb 9.6 oz) 01/15/2023 91.4 kg (201 lb 6.4 oz) Previous labs/tests for medication: Thyroid: TSH Date Value 12/13/2022 1.040 mIU/L 03/28/2021 2.930 uU/mL Blood Pressure: BUN (mg/dL) Date Value 12/13/2022 7 03/28/2021 8 Sodium (mmol/L) Date Value 12/13/2022 140 03/28/2021 137 Last 1 Encounter BP Readings: Date: BP: 03/16/2023 122/76 Liver Function: ALT (U/L) Date Value 12/13/2022 10 03/28/2021 8 AST (U/L) Date Value 12/13/2022 11 03/28/2021 11 Please advise. Thank you. Maya Hernandez, RN documented in this encounterKet[facility]09-14-2023 Miscellaneous Notes* Telephone Encounter - Tamica Gamez LPN - 03/22/2023 3:39 PM EDT Phoned patient and went over results, notes from Casey KRUEGER several times with understanding. * Telephone Encounter - Tamica Gamez LPN - 03/22/2023 3:35 PM EDT ----- Message from Terry Young PA-C sent at 03/22/2023 12:50 PM EDT ----- Please let her know she has good flow bilaterally, very mild restrictions L < R. Thanks, Casey Young PA-C documented in this encounterKettering [facility]09-08-2023 History of Present illness Narrative* Leny Hsu MD - 03/16/2023 10:35 AM EDT Chief Complaint Patient presents with: Follow Up: 3 month- patient concerned with fluid/edema HPI Maximus Bradley is a 47 year old female who presents here today for Above Complaints. Accompanied today by her mother Long. Patient complaining today of bilateral leg pain after walking for the last month. States that she gets pain in her calves after walking 1/4 mile. Has to stop to take a break and pain improves after about 5 minutes. Denies LE swelling, cold extremities, cyanosis, SOB, chest pain, palpations. Anxiety/depression controlled on Effexor and Buspar. Migraines: taking Topamax for migraine prophylaxis which she states is not working for her at her current dosage. Cannot tell me how often she is getting headaches, but thinks she is getting more than 1 headache weekly. Needs refill on her Maxalt. Mother worried that the patient's arms and legs are swollen. Patient's sister in her 60's recently diagnosed with heart disease. Past medical history, appointments, medications, allergies reviewed. Previous Medical History PAST MEDICAL HISTORY Diagnosis Date Abdominal pain, epigastric Abnormal mammogram 09/14/2016 Acute gastritis without mention of hemorrhage Anxiety Class 1 obesity due to excess calories without serious comorbidity with body mass index (BMI) of 34.0 to 34.9 in adult Depression Disability, developmental Gastroesophageal reflux disease with esophagitis without hemorrhage Hypothyroidism LLQ pain 10/07/2013 Low blood sugar 03/29/2015 Reflux esophagitis Urinary retention Pablo Arrington Previous Surgical History PAST SURGICAL HISTORY Procedure Laterality Date COLONOSCOPY 11/28/2021 repeat in 10 years DILATION & CURETTAGE DX&/THER [facility]STETRIC [facility] 01/30/2022 ESOPHAGOGASTRODUODENOSCOPY TRANSORAL DIAGNOSTIC 07/04/2005 EGD FNA WITH IMAGING Right 09/26/2016 U/S FNA UOQ right breast LIG/TRNSXJ FLP TUBE ABDL/VAG APPR UNI/BI Tubal ligation Family History FAMILY HISTORY Adopted: Yes Problem Relation Age of Onset Cancer Father lung No Known Problems Sister No Known Problems Sister No Known Problems Brother No Known Problems Brother No Known Problems Brother other (Liver Disease) Paternal Grandmother Cancer Paternal Grandfather Lung No Known Problems Son Cancer Paternal Uncle Throat Patient Allergies ALLERGIES Allergen Reactions Bee Pollen Anaphylaxis Adderall [Dextroamp* Itching Amphetamine Itching Imitrex [Sumatripta* Other: See Comments palpitations Current Medications Current Outpatient Medications on File Prior to Visit Medication Sig topiramate (TOPAMAX) 25 mg capsule Take 50 mg PO in the morning and 25 mg at night. buPROPion XL (WELLBUTRIN XL) 300 mg 24 hr tablet Take 1 tablet by mouth once daily. rizatriptan (MAXALT) 10 mg tablet Take one pill at the onset of headache, repeat in a couple hours if not better, no more than 2 tablets a day and no more than 4 tabs a week venlafaxine (EFFEXOR) 100 mg tablet Take 1 tablet by mouth twice daily. albuterol HFA (VENTOLIN HFA) 90 mcg/actuation inhaler Inhale 2 Puffs as instructed every 4 hours asneeded for wheezing/shortness of breath. busPIRone (BUSPAR) 5 mg tablet Take 1 tablet by mouth twice daily. levothyroxine (SYNTHROID) 75 mcg tablet Take 1 tablet by mouth once daily. Take on empty stomach. For Thyroid VITAMIN D-3 50 mcg (2,000 unit) tablet TAKE 2 TABLETS (4000 UNITS) BY MOUTH ONCE DAILY meloxicam (MOBIC) 15 mg tablet Take 1 tablet by mouth once daily. With food. No current facility-administered medications on file prior to visit. Social History Social History Tobacco Use Smoking status: Former Packs/day: 1 Types: Cigarettes Smokeless tobacco: Former Quit date: 04/25/2015 Vaping Use Vaping Use: Never used Substance Use Topics Alcohol use: No Comment: Occasionally Drug use: No Review of Symptoms REVIEW OF SYSTEMS GENERAL: No weight loss, malaise or fevers RESPIRATORY: Negative for cough, hemoptysis, wheezing, COPD, dyspnea or shortness of breath CARDIOVASCULAR: Negative for chest pain, leg swelling, hypertension, CHF or palpitations GI: No nausea, vomiting, or diarrhea SKIN: Negative for lesions, rash, and itching EXAM: BP 122/76 Pulse 83 Resp 16 Wt 90.5 kg (199 lb 9.6 oz) LMP 01/04/2023 (Approximate) SpO2 99% BMI 32.22 kg/m General Appearance: Well appearing, alert, in no acute distress, well-hydrated, well nourished.. Skin: Skin color, texture, turgor normal, no suspicious rashes or lesions. Lungs: Lungs clear to auscultation. No wheezing, rhonchi, rales.. Heart: RRR without murmur, gallop, or rubs. No ectopy. Abdomen: Normal abdominal exam, Abdomen soft, non-tender. Bowel sounds normal. No masses, organomegaly. Extremities: No deformities, edema, skin discoloration, clubbing or cyanosis. Good capillary refill. Pulses: 2+ DP and PT pulses Health Maintenance List HEPATITIS B(1 of 3 - 3-dose series) Never done INFLUENZA(1) due on 03/09/2023 COVID-19 VACCINE(1) due on 08/15/2023 MAMMOGRAM due on 09/01/2023 ANNUAL PCP TEAM CHRONIC DISEASE VISIT due on 01/20/2024 BP CONTROLLED (<130/80) due on 01/20/2024 PAP TESTING due on 07/28/2025 HPV TESTING due on 07/28/2025 LIPID SCREEN due on 09/16/2025 DIABETES SCREEN due on 12/13/2025 DTAP,TDAP,TD(2 - Td or Tdap) due on 10/01/2029 COLORECTAL CANCER SCREENING due on 11/29/2031 HEPATITIS C SCREENING Completed HIV SCREENING Completed HPV VACCINE Aged Out Data reviewed Component Latest Ref Rng & Units 12/13/2022 12/14/2022 WBC 3.70 - 11.00 k/uL 11.12 (H) RBC 3.90 - 5.20 m/uL 4.84 Hemoglobin 11.5 - 15.5 g/dL 13.0 Hematocrit 36.0 - 46.0 % 39.7 MCV 80.0 - 100.0 fL 82.0 MCH 26.0 - 34.0 pg 26.9 MCHC 30.5 - 36.0 g/dL 32.7 RDW-CV 11.5 - 15.0 % 12.9 Platelet Count 150 - 400 k/uL 501 (H) MPV 9.0 - 12.7 fL 9.6 Neut% % 65.3 Abs Neut (ANC) 1.45 - 7.50 k/uL 7.27 Lymph% % 23.3 Abs Lymph 1.00 - 4.00 k/uL 2.59 Fannin% % 5.7 Abs Fannin <0.87 k/uL 0.63 Eosin% % 4.4 Abs Eosin <0.46 k/uL 0.49 (H) Baso% % 0.9 Abs Baso <0.11 k/uL 0.10 Immature Gran % % 0.4 IMMATURE GRANS (ABS) <0.10 k/uL 0.04 NRBC /100 WBC 0.0 Absolute nRBC <0.01 k/uL <0.01 DTYPE Auto Protein, Total 6.3 - 8.0 g/dL 6.6 Albumin 3.9 - 4.9 g/dL 4.0 Calcium 8.5 - 10.2 mg/dL 9.1 Bilirubin, Total 0.2 - 1.3 mg/dL 0.4 Alkaline Phosphatase 34 - 123 U/L 88 AST 13 - 35 U/L 11 (L) ALT 7 - 38 U/L 10 Glucose 74 - 99 mg/dL 84 BUN 7 - 21 mg/dL 7 Creatinine 0.58 - 0.96 mg/dL 0.87 Sodium 136 - 144 mmol/L 140 Potassium 3.7 - 5.1 mmol/L 3.7 Chloride 97 - 105 mmol/L 104 CO2 22 - 30 mmol/L 23 Anion Gap 9 - 18 mmol/L 13 eGFR >=60 mL/min/1.73m 83 Color Yellow Yellow Clarity Clear Cloudy (A) Glucose, Urine Trace, Negative Negative Bilirubin, Urine Negative Negative Ketones, Urine Trace, Negative Negative Specific [place], Ur 1.005 - 1.030 1.015 Hemoglobin/Blood,Ur Negative, Trace Negative pH, Urine 5.0 - 8.0 7.5 Protein, Urine Trace, Negative Negative Urobilinogen Negative Negative Nitrites Negative Negative Leukest Negative, 25 Reji/uL Negative WBC, Urine 0-5 /HPF 0-5 /HPF RBC, Urine 0-3 /HPF 0-3 /HPF Epithelial Cells /HPF Few TSH 0.270 - 4.200 mIU/L 1.040 Magnesium 1.7 - 2.3 mg/dL 1.9 ASSESSMENT/PLAN: 1. Claudication (HCC) - ICD9: 443.9, ICD10: I73.9 (primary diagnosis) Patient with pain in her calves after walking long distances. I suspect this is due to deconditioning and fatigue, but will obtain KIERAN to rule out PAD. Patient without LE or UE edema on exam. - PVR ANK PRESS [facility] 2. Migraine without aura and without status migrainosus, not intractable - ICD9: 346.10, ICD10: G43.009 Uncontrolled. Increase topamax and refill Maxalt. If patient does have PAD causing claudication, maxalt would be contraindicated and would need to be discontinued. - TOPIRAMATE 25 MG SPRINKLE CAPSULE - RIZATRIPTAN 10 MG TABLET 3. Essential hypertension - ICD9: 401.9, ICD10: I10 - Controlled - Continue current medications - Recommend home blood pressure monitoring, to bring results to next visit - Encouraged sodium restriction, DASH or Mediterranean diet - Recommend regular aerobic exercise 4. Acquired hypothyroidism - ICD9: 244.9, ICD10: E03.9 - Instructed patient on importance of taking on an empty stomach either first thing in the morning or at bedtime. - continue current dose of Synthroid 0.075 mg Stable - Behavioral intervention 5. Anxiety with depression - ICD9: 300.4, ICD10: F41.8 Controlled on Effexor and Buspar. 6. Encounter for immunization - ICD9: V03.89, ICD10: Z23 - INFLUENZA VACCINE, AGE 6 MO - 64 YR, QUADRIVALENT (AFLURIA, FLULAVAL, FLUZONE) Leny Hsu MD documented in this encounterKettering [facility]08-25-2023 Miscellaneous Notes* Telephone Encounter - Tamica Gamez LPN - 03/02/2023 8:57 AM EDT Patient has been identified by name and date of : Pharmacy phones for refill(s): Requested Prescriptions Pending Prescriptions Disp Refills topiramate (TOPAMAX) 25 mg capsule 90 capsule 5 Sig: Take 50 mg PO in the morning and 25 mg at night. buPROPion XL (WELLBUTRIN XL) 300 mg 24 hr tablet 90 tablet 3 Sig: Take 1 tablet by mouth once daily. Date of last office visit in primary care: 01/19/2023, has appt 03/16/2023 Last 2 Encounter Wt Readings: Date: Wt: 01/15/2023 91.4 kg (201 lb 6.4 oz) 01/12/2023 91.6 kg (202 lb) Previous labs/tests for medication: Not applicable Please advise. Thank you. Tamica Gamez LPN documented in this encounterKettering [facility]08-01-2023 Miscellaneous Notes* Telephone Encounter - Danielle Powell LPN - 02/06/2023 10:56 AM EDT Last OV: 01/15/23 - Next scheduled appt: 03/16/23 Patient has been identified by name and date of : Yes Requested Prescriptions Pending Prescriptions Disp Refills rizatriptan (MAXALT) 10 mg tablet 9 tablet 1 Sig: Take one pill at the onset of headache, repeat in a couple hours if not better, no more than 2tablets a day and no more than 4 tabs a week RX INSTRUCTIONS: Patient aware RX will be sent to pharmacy. CALL PT WHEN RX IS SENT TO THE PHARMACY. Danielle Powell LPN documented in this encounterK[facility]-14-[facility]23 Miscellaneous Notes* Telephone Encounter - Amita Hernández - 01/19/2023 2:42 PM EDT The abdominal Xray ordered in July was not completed. Patient said she went to have it done and was told they couldn't find the order. Provider returns on Sunday. Advised patient to come in and see her and she can reevaluate and order appropriate testing since it's been 6 months. Amita Paul documented in this encounterK[facility]07-14-2023 Procedure note* Leny Hsu MD - 01/19/2023 1:46 PM EDTProcedure(s): CRYOTHERAPY OF WARTS Pre-Procedure Diagnose(s): Plantar wart Post-Procedure Diagnose(s): Plantar wart After the risks and options of alternative treatments were reviewed, the lesion(s) located on Foot:bilateral were treated with cryosurgery after cleaning with alcohol and then cutting down wart with10 blade. . A total of 2 lesion(s) were treated without complication. Total of 3 freeze/thaw cyclesused. Bandage applied prior to D/C. Leny Hsu MD documented in this encounterK[facility]07-14-2023 Instructions* Patient Instructions* Leny Hsu MD - 01/19/2023 11:31 AM EDT SKIN CARE AFTER CRYOSURGERY The SKIN'S response to cryosurgery (freezing) can be mild to more severe, depending on the depth ofthe freeze and the location of the area treated. You may have only mild redness and swelling with alittle discomfort of significant discoloration and blistering with considerable discomfort. A burning sensation in the skin may last from several minutes to several hours after the procedure. Follow these instructions when caring for an area treated by cryosurgery: MINOR RESPONSE: 1. The area may sing or burn for a short time after treatment. 2. The treated area will be red in color at first then turn brown and flakey as it heals and the upper layer of skin sloughs off. 3. Gently cleanse the area with anti-bacterial soap and water. Pat dry and apply a thin film of antibiotic ointment. Do this at least once a day to prevent infection. MAJOR RESPONSE: 1. Follow instructions as stated for minor response. 2. The area may sting and burn for several hours after treatment. 3. To relieve throbbing and pain, elevate the treatment area. 4. If instructed by your physician, you may take [id number] pain medications as needed for discomfort. 5. A blister will form in the area of freezing. It may be filled with clear fluid or blood. This response is not unusual. 6. Do not break the blister unless it becomes uncomfortable. You may prick the blister with a sterile needle or pin to remove the fluid. Leave the skin intact. 7. All treated areas usually heal within 3 to 4 weeks. documented in this encounterK[facility]07-14-2023 History of Present illness Narrative* Leny Hsu MD - 01/19/2023 11:09 AM EDT Chief Complaint Patient presents with: Wart HPI Maximus Bradley is a 47 year old female who presents here today for Above Complaints.. Patient with wart on left foot. Requesting treatment today with cryotherapy and debridement. Risks and benefits of this procedure and alternatives discussed with patient and she is agreeable. Past medical history, appointments, medications, allergies reviewed. Previous Medical History PAST MEDICAL HISTORY Diagnosis Date Abdominal pain, epigastric Abnormal mammogram 09/14/2016 Acute gastritis without mention of hemorrhage Anxiety Class 1 obesity due to excess calories without serious comorbidity with body mass index (BMI) of 34.0 to 34.9 in adult Depression Disability, developmental Gastroesophageal reflux disease with esophagitis without hemorrhage Hypothyroidism LLQ pain 10/07/2013 Low blood sugar 03/29/2015 Reflux esophagitis Urinary retention Pablo Murphy Previous Surgical History PAST SURGICAL HISTORY Procedure Laterality Date COLONOSCOPY 11/28/2021 repeat in 10 years DILATION & CURETTAGE DX&/THER NONOBSTETRIC EGD W/O BRSH SPEC VARICIES INJ 01/30/2022 ESOPHAGOGASTRODUODENOSCOPY TRANSORAL DIAGNOSTIC 07/04/2005 EGD FNA WITH IMAGING Right 09/26/2016 U/S FNA UOQ right breast LIG/TRNSXJ FLP TUBE ABDL/VAG APPR UNI/BI Tubal ligation Family History FAMILY HISTORY Adopted: Yes Problem Relation Age of Onset Cancer Father lung No Known Problems Sister No Known Problems Sister No Known Problems Brother No Known Problems Brother No Known Problems Brother other (Liver Disease) Paternal Grandmother Cancer Paternal Grandfather Lung No Known Problems Son Cancer Paternal Uncle Throat Patient Allergies ALLERGIES Allergen Reactions Bee Pollen Anaphylaxis Adderall [Dextroamp* Itching Amphetamine Itching Imitrex [Sumatripta* Other: See Comments palpitations Current Medications Current Outpatient Medications on File Prior to Visit Medication Sig venlafaxine (EFFEXOR) 100 mg tablet Take 1 tablet by mouth twice daily. albuterol HFA (VENTOLIN HFA) 90 mcg/actuation inhaler Inhale 2 Puffs as instructed every 4 hours asneeded for wheezing/shortness of breath. busPIRone (BUSPAR) 5 mg tablet Take 1 tablet by mouth twice daily. levothyroxine (SYNTHROID) 75 mcg tablet Take 1 tablet by mouth once daily. Take on empty stomach. For Thyroid VITAMIN D-3 50 mcg (2,000 unit) tablet TAKE 2 TABLETS (4000 UNITS) BY MOUTH ONCE DAILY topiramate (TOPAMAX) 25 mg capsule Take 50 mg PO in the morning and 25 mg at night. rizatriptan (MAXALT) 10 mg tablet Take one pill at the onset of headache, repeat in a couple hours if not better, no more than 2 tablets a day and no more than 4 tabs a week meloxicam (MOBIC) 15 mg tablet Take 1 tablet by mouth once daily. With food. buPROPion XL (WELLBUTRIN XL) 300 mg 24 hr tablet Take 1 tablet by mouth once daily. No current facility-administered medications on file prior to visit. Social History Social History Tobacco Use Smoking status: Former Packs/day: 1.00 Types: Cigarettes Smokeless tobacco: Former Quit date: 04/25/2015 Vaping Use Vaping Use: Never used Substance Use Topics Alcohol use: No Comment: Occasionally Drug use: No Review of Symptoms REVIEW OF SYSTEMS GENERAL: No weight loss, malaise or fevers SKIN: See HPI EXAM: BP 124/70 Pulse 78 Resp 16 LMP 01/04/2023 (Approximate) SpO2 95% General Appearance: Well appearing, alert, in no acute distress, well-hydrated, well nourished.. Skin: 2 cm plantar wart on balls of feet bilaterally distal to 5th toe without cellulitis. . Health Maintenance List HEPATITIS B(1 of 3 - 3-dose series) Never done COVID-19 VACCINE(1) due on 08/15/2023 INFLUENZA(1) due on 03/09/2023 MAMMOGRAM due on 09/01/2023 ANNUAL PCP TEAM CHRONIC DISEASE VISIT due on 01/16/2024 BP CONTROLLED (<130/80) due on 01/16/2024 PAP TESTING due on 07/28/2025 HPV TESTING due on 07/28/2025 LIPID SCREEN due on 09/16/2025 DIABETES SCREEN due on 12/13/2025 DTAP,TDAP,TD(2 - Td or Tdap) due on 10/01/2029 COLORECTAL CANCER SCREENING due on 11/29/2031 HEPATITIS C SCREENING Completed HIV SCREENING Completed HPV VACCINE Aged Out ASSESSMENT/PLAN: 1. Plantar wart - ICD9: 078.12, ICD10: B07.0 (primary diagnosis) See procedure note. 2. S/P cryotherapy of skin lesion - ICD9: V45.89, ICD10: Z98.890 See procedure note. Given wound care instructions for home. Call if not resolved in 3-4 wees. Red flags for re-assessment reviewed with patient in detail. Leny Hsu MD documented in this encounterK[facility]07-10-2023 Instructions* Patient Instructions* Lydia Gnozalez APRN.CNP - 01/15/2023 1:52 PM EDT Low salt diet Compression hose if needed Elevate legs when sitting Walk documented in this encounterK[facility]07-10-2023 History of Present illness Narrative* Lydia Gonzalez APRN.CNP - 01/15/2023 1:36 PM EDT 01/15/2023 Patient presents with: Swelling: Bilateral feet swelling, along with thigh swelling x 2 weeks Wart: To bottom of right foot SUBJECTIVE: This is a 47 year old that is here today for Above Complaints. For the last two weeks has had intermittent bilateral feet swelling. Denies weight gain, SOB, dyspnea, cough or chest pain. Reports wart to bottom of left foot. Boyfriend tried cutting it off. Denies redness, warmth or drainage from area PAST MEDICAL HISTORY Diagnosis Date Abdominal pain, epigastric Abnormal mammogram 09/14/2016 Acute gastritis without mention of hemorrhage Anxiety Class 1 obesity due to excess calories without serious comorbidity with body mass index (BMI) of 34.0 to 34.9 in adult Depression Disability, developmental Gastroesophageal reflux disease with esophagitis without hemorrhage Hypothyroidism LLQ pain 10/07/2013 Low blood sugar 03/29/2015 Reflux esophagitis Urinary retention Pablo Arrington ALLERGIES Bee Pollen, Adderall [Dextroamphetamine-Amphetamine], Amphetamine, and Imitrex [Sumatriptan] MEDICATIONS Current Outpatient Medications Medication Sig venlafaxine (EFFEXOR) 100 mg tablet Take 1 tablet by mouth twice daily. albuterol HFA (VENTOLIN HFA) 90 mcg/actuation inhaler Inhale 2 Puffs as instructed every 4 hours asneeded for wheezing/shortness of breath. busPIRone (BUSPAR) 5 mg tablet Take 1 tablet by mouth twice daily. levothyroxine (SYNTHROID) 75 mcg tablet Take 1 tablet by mouth once daily. Take on empty stomach. For Thyroid VITAMIN D-3 50 mcg (2,000 unit) tablet TAKE 2 TABLETS (4000 UNITS) BY MOUTH ONCE DAILY topiramate (TOPAMAX) 25 mg capsule Take 50 mg PO in the morning and 25 mg at night. rizatriptan (MAXALT) 10 mg tablet Take one pill at the onset of headache, repeat in a couple hours if not better, no more than 2 tablets a day and no more than 4 tabs a week meloxicam (MOBIC) 15 mg tablet Take 1 tablet by mouth once daily. With food. buPROPion XL (WELLBUTRIN XL) 300 mg 24 hr tablet Take 1 tablet by mouth once daily. No current facility-administered medications for this visit. Medications and allergies reviewed by this provider. SOCIAL HISTORY Social History Tobacco Use Smoking status: Former Packs/day: 1.00 Types: Cigarettes Smokeless tobacco: Former Quit date: 04/25/2015 Vaping Use Vaping Use: Never used Substance Use Topics Alcohol use: No Comment: Occasionally Drug use: No REVIEW OF SYSTEMS All other reviewed and negative other than HPI. OBJECTIVE: BP 108/68 Pulse 93 Resp 16 Wt 91.4 kg (201 lb 6.4 oz) LMP 09/24/2021 SpO2 99% BMI 32.51kg/m . Vital signs reviewed by this provider. APPEARANCE Well appearing, alert, in no acute distress, well-hydrated, well nourished. EYES PERRLA, conjunctiva and sclera normal. HEART RRR with normal S1 and S2, no murmurs, no gallops, no JVD appreciated LUNG clear to auscultation. No wheezes, rhonchi or rales EXTREMITIES Extremities normal, No deformities, No skin discoloration, No edema, and Normal pulses bilaterally. Left Foot: ventral foot, 1 st metatarsal with callused area with small black area in center. No surrounding erythema, TTP or drainage HEPATITIS B(1 of 3 - 3-dose series) Never done COVID-19 VACCINE(1) due on 08/15/2023 INFLUENZA(1) due on 03/09/2023 MAMMOGRAM due on 09/01/2023 ANNUAL PCP TEAM CHRONIC DISEASE VISIT due on 12/14/2023 BP CONTROLLED (<130/80) due on 01/13/2024 PAP TESTING due on 07/28/2025 HPV TESTING due on 07/28/2025 LIPID SCREEN due on 09/16/2025 DIABETES SCREEN due on 12/13/2025 DTAP,TDAP,TD(2 - Td or Tdap) due on 10/01/2029 COLORECTAL CANCER SCREENING due on 11/29/2031 HEPATITIS C SCREENING Completed HIV SCREENING Completed HPV VACCINE Aged Out ASSESSMENT/PLAN: 1. Bilateral swelling of feet - ICD9: 729.81, ICD10: M79.89 (primary diagnosis) - no swelling on exam today - low salt diet - elevate feet when sitting - stay active - may wear compression hose if needed 2. Plantar wart - ICD9: 078.12, ICD10: B07.0 - will need office visit for cryo Lydia Gonzalez APRN.FONDANT COOKER Prescription instructions reviewed with patient as applicable. Patient advised if symptoms do not improve or if symptoms worsen sooner, to contact their primary care physician. Potential red flag symptoms discussed with the patient. Reviewed appropriate action plan to take if red flag symptoms occur. Patient agreeable to treatment plan. I spent a total of 25 minutes on the date of the service which included preparing to see the patient, [id number] patient care, completing clinical documentation, obtaining and/or reviewing separately obtained history, performing a medically appropriate examination, counseling and educating the pat ient/family/caregiver, and ordering medications, tests, or procedures. documented in this encounterK[facility]07-07-2023 Instructions* Patient Instructions* Jeanette Ibarra PA-C - 01/12/2023 1:43 PM EDT Keep legs elevated Watch salt intake Compression stockings Follow up Sunday with pcp. documented in this encounterK[facility]07-07-2023 History of Present illness Narrative* Jeanette Ibarra PA-C - 01/12/2023 1:42 PM EDT This note was created using NoteWriter. Subjective Maximus Bradley is a 47 year old female. HPI Patient presents with bilateral lower leg swelling over the past 3 weeks. She denies chest pain or shortness of breath. No swelling past the ankles. She denies history of heart failure. No fever or redness. She has hypertension listed on her chart but is not on any medication for it and blood pressures have been normal the past several visits. She did see her primary doctor a month ago. Denies history of CHF. Labs a month ago were unremarkable. She not had any medication changes. No recent trips or surgeries. No history of PE or DVT. Not on estrogen. Review of Systems Constitutional: Negative. HENT: Negative. Respiratory: Negative. Cardiovascular: Positive for leg swelling. Negative for chest pain and palpitations. Gastrointestinal: Negative. Genitourinary: Negative. Musculoskeletal: Negative. Skin: Negative. Neurological: Negative. All other systems reviewed and are negative. PAST MEDICAL HISTORY Diagnosis Date Abdominal pain, epigastric Abnormal mammogram 09/14/2016 Acute gastritis without mention of hemorrhage Anxiety Class 1 obesity due to excess calories without serious comorbidity with body mass index (BMI) of 34.0 to 34.9 in adult Depression Disability, developmental Gastroesophageal reflux disease with esophagitis without hemorrhage Hypothyroidism LLQ pain 10/07/2013 Low blood sugar 03/29/2015 Reflux esophagitis Urinary retention Pablo Arrington Current Outpatient Medications Medication Sig Dispense Refill venlafaxine (EFFEXOR) 100 mg tablet Take 1 tablet by mouth twice daily. 180 tablet 1 albuterol HFA (VENTOLIN HFA) 90 mcg/actuation inhaler Inhale 2 Puffs as instructed every 4 hours asneeded for wheezing/shortness of breath. 18 g 4 busPIRone (BUSPAR) 5 mg tablet Take 1 tablet by mouth twice daily. 180 tablet 1 levothyroxine (SYNTHROID) 75 mcg tablet Take 1 tablet by mouth once daily. Take on empty stomach. For Thyroid 90 tablet 1 VITAMIN D-3 50 mcg (2,000 unit) tablet TAKE 2 TABLETS (4000 UNITS) BY MOUTH ONCE DAILY 180 tablet 3 topiramate (TOPAMAX) 25 mg capsule Take 50 mg PO in the morning and 25 mg at night. 90 capsule 5 rizatriptan (MAXALT) 10 mg tablet Take one pill at the onset of headache, repeat in a couple hours if not better, no more than 2 tablets a day and no more than 4 tabs a week 9 tablet 1 meloxicam (MOBIC) 15 mg tablet Take 1 tablet by mouth once daily. With food. 30 tablet 0 buPROPion XL (WELLBUTRIN XL) 300 mg 24 hr tablet Take 1 tablet by mouth once daily. 90 tablet 3 No current facility-administered medications for this visit. PAST SURGICAL HISTORY Procedure Laterality Date COLONOSCOPY 11/28/2021 repeat in 10 years DILATION & CURETTAGE DX&/THER NONOBSTETRIC EGD W/O BRSH SPEC VARICIES INJ 01/30/2022 ESOPHAGOGASTRODUODENOSCOPY TRANSORAL DIAGNOSTIC 07/04/2005 EGD FNA WITH IMAGING Right 09/26/2016 U/S FNA UOQ right breast LIG/TRNSXJ FLP TUBE ABDL/VAG APPR UNI/BI Tubal ligation FAMILY HISTORY Adopted: Yes Problem Relation Age of Onset Cancer Father lung No Known Problems Sister No Known Problems Sister No Known Problems Brother No Known Problems Brother No Known Problems Brother other (Liver Disease) Paternal Grandmother Cancer Paternal Grandfather Lung No Known Problems Son Cancer Paternal Uncle Throat Social History Tobacco Use Smoking status: Former Packs/day: 1.00 Types: Cigarettes Smokeless tobacco: Former Quit date: 04/25/2015 Vaping Use Vaping Use: Never used Substance Use Topics Alcohol use: No Comment: Occasionally Drug use: No Objective BP 110/64 Pulse 81 Temp 36.7 C (98 F) (Tympanic) Resp 18 Wt 91.6 kg (202 lb) LMP 09/24/2021 SpO2 98% BMI 32.60 kg/m Physical Exam Vitals reviewed. Constitutional: Appearance: Normal appearance. HENT: Head: Normocephalic and atraumatic. Cardiovascular: Rate and Rhythm: Normal rate and regular rhythm. Heart sounds: Normal heart sounds. Pulmonary: Effort: Pulmonary effort is normal. Breath sounds: Normal breath sounds. Musculoskeletal: Comments: Patient has minimal swelling at the ankle and foot bilaterally. Nonpitting. Pedal pulses 2+. No erythema. No calf pain on palpation. Negative Homans' sign bilaterally. Skin: General: Skin is warm and dry. Findings: No rash. Neurological: Mental Status: She is alert. Assessment and Plan ASSESSMENT/PLAN: 1. Peripheral edema - ICD9: 782.3, ICD10: R60.9 Discussed salt restriction, elevating legs, avoiding long periods of standing, compression stockings. Follow up with pcp Sunday. No sign of HF or DVT. Red flags for er care discussed. Jeanette Ibarra PA-C documented in this encounterK[facility]06-30-2023 Miscellaneous Notes* Telephone Encounter - Shraddha Tucker RN - 01/05/2023 3:44 PM EDT Last Office Visit: 12/13/2022 Future Office Visit: 03/16/2023 Requested Prescriptions Pending Prescriptions Disp Refills venlafaxine (EFFEXOR) 100 mg tablet 180 tablet 1 Sig: Take 1 tablet by mouth twice daily. Date of Last Labs: 12/13/2022 documented in this encounterKet[facility]06-07-2023 Nurse Note* Sis Wilson MA - 12/13/2022 3:11 PM EDT 12/13/22 1433 12/13/22 1509 12/13/22 1510 12/13/22 1511 BP: 118/82 Pulse: 80 Resp: 16 Height: 167.6 cm (5' 6") Weight: 92.5 kg (204 lb) Orthostatic BP: 108/74 94/68 97/63 BP Position: Supine Sitting Standing Orthostatic Pulse: 73 83 91 documented in this encounterKet[facility]06-07-2023 History of Present illness Narrative* Leny Hsu MD - 12/13/2022 2:39 PM EDT Chief Complaint Patient presents with: Dizziness: HPI Maximus Bradley is a 47 year old female who presents here today for Above Complaints.. Patient states that she was washing a skillet yesterday when she started to feel lightheaded and passed out. Mom was apparently standing next to her and witnessed the fall. Patient states she was notpassed out for long. Does not think she hit her head, but did hit her right elbow. States she did not los control of bowel or bladder. No reported seizure activity. Admits to drinking 4 cans of pop per day. Does not typically drink water during the day. Stopped taking her flomax several weeks ago. Does have some pain over elbow today with minimal bruising. Normal ROM. Denies nausea, vomiting, diarrhea, chest pain, palpitations, SOB, slurred speech, facial droop, numbness/tingling/weakness, bleeding symptoms. . Last passing out episode was more than 10 years ago. Past medical history, appointments, medications, allergies reviewed. Previous Medical History PAST MEDICAL HISTORY Diagnosis Date Abdominal pain, epigastric Abnormal mammogram 09/14/2016 Acute gastritis without mention of hemorrhage Anxiety Class 1 obesity due to excess calories without serious comorbidity with body mass index (BMI) of 34.0 to 34.9 in adult Depression Disability, developmental Gastroesophageal reflux disease with esophagitis without hemorrhage Hypothyroidism LLQ pain 10/07/2013 Low blood sugar 03/29/2015 Reflux esophagitis Urinary retention Pablo Arrington Previous Surgical History PAST SURGICAL HISTORY Procedure Laterality Date COLONOSCOPY 11/28/2021 repeat in 10 years DILATION & CURETTAGE DX&/THER NONOBSTETRIC EGD W/O BRSH SPEC VARICIES INJ 01/30/2022 ESOPHAGOGASTRODUODENOSCOPY TRANSORAL DIAGNOSTIC 07/04/2005 EGD FNA WITH IMAGING Right 09/26/2016 U/S FNA UOQ right breast LIG/TRNSXJ FLP TUBE ABDL/VAG APPR UNI/BI Tubal ligation Family History FAMILY HISTORY Adopted: Yes Problem Relation Age of Onset Cancer Father lung No Known Problems Sister No Known Problems Sister No Known Problems Brother No Known Problems Brother No Known Problems Brother other (Liver Disease) Paternal Grandmother Cancer Paternal Grandfather Lung No Known Problems Son Cancer Paternal Uncle Throat Patient Allergies ALLERGIES Allergen Reactions Bee Pollen Anaphylaxis Adderall [Dextroamp* Itching Amphetamine Itching Imitrex [Sumatripta* Other: See Comments palpitations Current Medications Current Outpatient Medications on File Prior to Visit Medication Sig albuterol HFA (VENTOLIN HFA) 90 mcg/actuation inhaler Inhale 2 Puffs as instructed every 4 hours asneeded for wheezing/shortness of breath. busPIRone (BUSPAR) 5 mg tablet Take 1 tablet by mouth twice daily. levothyroxine (SYNTHROID) 75 mcg tablet Take 1 tablet by mouth once daily. Take on empty stomach. For Thyroid VITAMIN D-3 50 mcg (2,000 unit) tablet TAKE 2 TABLETS (4000 UNITS) BY MOUTH ONCE DAILY topiramate (TOPAMAX) 25 mg capsule Take 50 mg PO in the morning and 25 mg at night. rizatriptan (MAXALT) 10 mg tablet Take one pill at the onset of headache, repeat in a couple hours if not better, no more than 2 tablets a day and no more than 4 tabs a week venlafaxine (EFFEXOR) 100 mg tablet Take 1 tablet by mouth twice daily. meloxicam (MOBIC) 15 mg tablet Take 1 tablet by mouth once daily. With food. buPROPion XL (WELLBUTRIN XL) 300 mg 24 hr tablet Take 1 tablet by mouth once daily. tamsulosin (FLOMAX) 0.4 mg Take 1 capsule by mouth daily at bedtime. No current facility-administered medications on file prior to visit. Social History Social History Tobacco Use Smoking status: Former Packs/day: 1.00 Types: Cigarettes Smokeless tobacco: Former Quit date: 04/25/2015 Vaping Use Vaping Use: Never used Substance Use Topics Alcohol use: No Comment: Occasionally Drug use: No Review of Symptoms REVIEW OF SYSTEMS See HPI EXAM: BP 118/82 Pulse 80 Resp 16 Ht 167.6 cm (5' 6") Wt 92.5 kg (204 lb) LMP 09/24/2021 BMI 32.93 kg/m BP w/Orthostatic Vitals Date and Time Orthostatic BP Orthostatic Pulse BP Pulse BP Position BP Site BP Cuff Size 12/13/22 1511 97/63 91 -- -- Standing Left Arm Large Adult 12/13/22 1510 94/68 83 -- -- Sitting Left Arm Large Adult 12/13/22 1509 108/74 73 -- -- Supine Left Arm Large Adult 12/13/22 1433 -- -- 118/82 80 -- -- -- Peak Flow Date and Time PF Resp 12/13/22 1433 -- 16 General Appearance: Well appearing, alert, in no acute distress, well-hydrated, well nourished.. Skin: Skin color, texture, turgor normal, no suspicious rashes or lesions. Lungs: Lungs clear to auscultation. No wheezing, rhonchi, rales.. Heart: RRR without murmur, gallop, or rubs. No ectopy. Abdomen: Normal abdominal exam, Abdomen soft, non-tender. Bowel sounds normal. No masses, organomegaly. Extremities: No deformities, edema, skin discoloration, clubbing or cyanosis. Good capillary refill. . Musculoskeletal: No joint swelling, deformity, or tenderness. Neurologic: Negative findings: speech normal, mental status intact, cranial nerves 2-12 intact, muscle tone normal, muscle strength normal, sensation to light touch and pinprick normal, reflexes normal and symmetric. Health Maintenance List HEPATITIS B(1 of 3 - 3-dose series) Never done COVID-19 VACCINE(1) due on 08/15/2023 BP CONTROLLED (<130/80) due on 08/15/2023 ANNUAL PCP TEAM CHRONIC DISEASE VISIT due on 08/30/2023 MAMMOGRAM due on 09/01/2023 DIABETES SCREEN due on 03/31/2025 PAP TESTING due on 07/28/2025 HPV TESTING due on 07/28/2025 LIPID SCREEN due on 09/16/2025 DTAP,TDAP,TD(2 - Td or Tdap) due on 10/01/2029 COLORECTAL CANCER SCREENING due on 11/29/2031 INFLUENZA Completed HEPATITIS C SCREENING Completed HIV SCREENING Completed Data reviewed EKG: NSR at 78 bpm ASSESSMENT/PLAN: 1. Syncope and collapse - ICD9: 780.2, ICD10: R55 (primary diagnosis) Orthostatics positive today. Patient not on antihypertensive meds and has stopped flomax. Discussedcutting out caffeine and increasing her water intake. Will obtain labs as ordered. EKG normal. Withsingle episode and normal exam today, will hold off on further workup with Zio/Holter or echo at this time. Red flags for re-assessment reviewed with patient in detail. - ECG COMPLETE - CBC + DIFF - COMP METABOLIC PANEL - URINALYSIS WITH MICROSCOPIC, REFLEX CULTURE - TSH BLD - MAGNESIUM BLD 2. Elbow pain, right - ICD9: 719.42, ICD10: M25.521 Normal exam. Discussed use of ice, OTC analgesics, and rest. Leny Hsu MD documented in this encounterK[facility]-2023 Miscellaneous Notes* Telephone Encounter - Sherine Cruz RN - 12/12/2022 4:53 PM EDT Patient has been identified by name and date of : Yes, Sherine Cruz RN Date 12/12/2022 Time 4:54 pm Pharmacy phones for refill(s): Requested Prescriptions Pending Prescriptions Disp Refills albuterol HFA (VENTOLIN HFA) 90 mcg/actuation inhaler 18 g 4 Sig: Inhale 2 Puffs as instructed every 4 hours as needed for wheezing/shortness of breath. Date of last office visit with pcp: 08/30/2022 Future appt: none Last 2 Encounter Wt Readings: Date: Wt: 11/06/2022 90.7 kg (200 lb) 09/22/2022 90.4 kg (199 lb 6.4 oz) Previous labs/tests for medication: Blood Pressure: BUN (mg/dL) Date Value 03/31/2022 10 03/28/2021 8 Sodium (mmol/L) Date Value 03/31/2022 139 03/28/2021 137 Last 1 Encounter BP Readings: Date: BP: 11/06/2022 128/90 Liver Function: ALT (U/L) Date Value 03/31/2022 13 03/28/2021 8 AST (U/L) Date Value 03/31/2022 14 03/28/2021 11 Please advise. Thank you. Sherine Cruz RN documented in this encounterK[facility]05-01-2023 History of Present illness Narrative* Krik Cast MD - 11/06/2022 2:41 PM EDT HISTORY AND PHYSICAL - BREAST COMPLAINT Maximus Bradley 1975 REFERRING PHYSICIAN: Leny Hsu MD CHIEF COMPLAINT: Abnormal mammogram (primary encounter diagnosis) HPI: The patient is a 47 year old female with a complaint of an abnormal mammogram. The patient hada mammogram with ultrasound on 10/18/22 which demonstrated IMPRESSION: SUSPICIOUS FINDING - BIOPSY SHOULD BE CONSIDERED The 6 mm irregular equal density focal asymmetry in the left breast is suspicious of malignancy. An ultrasound guided biopsy is recommended. : The patient denies a history of breast masses. She does perform a self breast exam routinely. She notes no skin changes. She denies nipple discharge. She notes no axillary masses. She notes no familyhistory of breast problems. She notes no significant breast trauma or breast difficulties in the past. The patient is being seen by me today at the request of Dr. Leny Hsu MD for my opinion and advice regarding Abnormal mammogram (primary encounter diagnosis). PAST MEDICAL HISTORY Diagnosis Date Abdominal pain, epigastric Abnormal mammogram 09/14/2016 Acute gastritis without mention of hemorrhage Anxiety Class 1 obesity due to excess calories without serious comorbidity with body mass index (BMI) of 34.0 to 34.9 in adult Depression Disability, developmental Gastroesophageal reflux disease with esophagitis without hemorrhage Hypothyroidism LLQ pain 10/07/2013 Low blood sugar 03/29/2015 Reflux esophagitis Urinary retention Pablo Arrington PAST SURGICAL HISTORY Procedure Laterality Date COLONOSCOPY 11/28/2021 repeat in 10 years DILATION & CURETTAGE DX&/THER NONOBSTETRIC EGD W/O BRSH SPEC VARICIES INJ 01/30/2022 ESOPHAGOGASTRODUODENOSCOPY TRANSORAL DIAGNOSTIC 07/04/2005 EGD FNA WITH IMAGING Right 09/26/2016 U/S FNA UOQ right breast LIG/TRNSXJ FLP TUBE ABDL/VAG APPR UNI/BI Tubal ligation Current Outpatient Medications Medication Sig Dispense Refill busPIRone (BUSPAR) 5 mg tablet Take 1 tablet by mouth twice daily. 180 tablet 1 levothyroxine (SYNTHROID) 75 mcg tablet Take 1 tablet by mouth once daily. Take on empty stomach. For Thyroid 90 tablet 1 VITAMIN D-3 50 mcg (2,000 unit) tablet TAKE 2 TABLETS (4000 UNITS) BY MOUTH ONCE DAILY 180 tablet 3 topiramate (TOPAMAX) 25 mg capsule Take 50 mg PO in the morning and 25 mg at night. 90 capsule 5 albuterol HFA (VENTOLIN HFA) 90 mcg/actuation inhaler Inhale 2 Puffs as instructed every 4 hours asneeded for wheezing/shortness of breath. 18 g 4 rizatriptan (MAXALT) 10 mg tablet Take one pill at the onset of headache, repeat in a couple hours if not better, no more than 2 tablets a day and no more than 4 tabs a week 9 tablet 1 venlafaxine (EFFEXOR) 100 mg tablet Take 1 tablet by mouth twice daily. 180 tablet 1 meloxicam (MOBIC) 15 mg tablet Take 1 tablet by mouth once daily. With food. 30 tablet 0 buPROPion XL (WELLBUTRIN XL) 300 mg 24 hr tablet Take 1 tablet by mouth once daily. 90 tablet 3 tamsulosin (FLOMAX) 0.4 mg Take 1 capsule by mouth daily at bedtime. 90 capsule 3 No current facility-administered medications for this visit. ALLERGIES: Bee Pollen, Adderall [Dextroamphetamine-Amphetamine], Amphetamine, and Imitrex [Sumatriptan] PERSONAL HISTORY: Social History Tobacco Use Smoking status: Former Packs/day: 1.00 Types: Cigarettes Smokeless tobacco: Former Quit date: 04/25/2015 Vaping Use Vaping Use: Never used Substance Use Topics Alcohol use: No Comment: Occasionally Drug use: No FAMILY HISTORY: FAMILY HISTORY Adopted: Yes Problem Relation Age of Onset Cancer Father lung No Known Problems Sister No Known Problems Sister No Known Problems Brother No Known Problems Brother No Known Problems Brother other (Liver Disease) Paternal Grandmother Cancer Paternal Grandfather Lung No Known Problems Son Cancer Paternal Uncle Throat REVIEW OF SYMPTOMS: The review of systems data was entered by the nurse and reviewed by fl Nursing Notes: Zoey Fishman LPN 11/06/2022 1:26 PM Signed REVIEW OF SYSTEMS: General: The patient denies fatigue, notes weight loss, notes weight gain, notes feeling hot, and denies feelings of cold. Eyes: The patient denies glaucoma, denies eye injury/surgery, does not wear glasses or contacts. Ear/Nose/Throat: The patient notes allergies, denies hayfever, notes ear infections, and denies bloody noses. Cardiovascular: The patient notes chest pain, denies heart disease, notes high blood pressure,denies cardiac stent, denies prior heart attack, denies irregular heart beat, denies high cholesterol, denies poor circulation, denies heart failure, other cardiac issues, denies claudication, denies cold feet, denies peripheral arterial stent. Respiratory: The patient denies tuberculosis, denies pneumonia, denies frequent cough, denies pulmonary embolism, denies shortness of breath, and denies coughing up blood, note asthma Gastrointestinal: The patient denies difficulty swallowing, notes acid reflux, denies ulcers, notesvomiting, denies jaundice/hepatitis, denies gallbladder problems, denies black or tarry stools, denies hemorrhoids, denies bleeding from rectum, denies diverticulitis, notes constipation, notes diarrhea, denies loss of stool control, and notes hernias. Kidney/Bladder: The patient denies kidney stones, notes urine infections, and denies bloody urine. Skin: The patient denies a history of skin cancer, denies bleeding/changing moles, and denies a history of skin rash. Neurologic: The patient denies a history of epilepsy/convulsions, notes headaches, denies head/spinal injuries, and denies stroke/TIA. Psychiatric: The patient notes psychiatric medications, notes depression, and denies voices, deniessubstance abuse. Endocrine: The patient notes thyroid disorders, denies diabetes, and denies hormonal problems. Hematologic: The patient notes a history of bruising, denies bleeding, and denies anemia, denies blood clots. Infections: The patient notes a history of measles and mumps, denies rheumatic fever, and denies sexually transmitted diseases. Musculoskeletal: The patient notes back pain/injury, notes back problems, denies sciatica, notes knee/foot trouble, denies arthritis, or denies gout. When was patient's last Mammogram screening? 2022 Last Colonoscopy: 2021 Zoey Fishman LPN PHYSICAL EXAMINATION: General: The patient is 47 year old female, well nourished, well hydrated in no acute distress. Thepatient is oriented to time, place, and person. VITALS: Blood pressure 128/90, pulse 104, temperature 36.8 C (98.2 F), height 167.6 cm (5' 6"), weight 90.7 kg (200 lb), last menstrual period 09/24/2021, SpO2 97 %. Body mass index is 32.28 kg/m . HEENT: Normal cephalic, ataumatic, pupils are equally round, sclera are anicteric, mucous membranesare moist, oropharynx is clear. Neck has no masses, asymmetry or lymphadenopathy. Thyroid is unremarkable. Respiratory: Clear to auscultation and percussion. Normal respiratory excursion and pattern. Cardiac: Examination is regular rate and rhythm. Abdominal exam: Soft, nontender, with no palpable masses. No hepatosplenomegaly. No palpable hernias. Rectal exam: exam deferred Extremities: no clubbing, cyanosis or edema. No adenopathy. Breast: Visual inspection reveals no retractions, nipple inversion, or skin changes. Palpation of the right breast reveals no dominant or suspicious masses, but multiple benign-feeling nodules. Palpation of the left breast reveals no dominant or suspicious masses, but multiple benign-feeling nodules. Axillary exam demonstrates no suspicious masses in either the left or right axilla. There is no nipple discharge expressed from either the left or right breast. LABORATORY VALUES: As Noted RADIOLOGIC STUDIES: As Noted Assessment IMPRESSION: Abnormal mammogram (primary encounter diagnosis) PLAN: I plan to perform a ultrasound guided core biopsy of the right breast. The planned surgical procedure was discussed extensively with the patient. The risks, benefits, anticipated outcomes and possible complications were mentioned. My staff has also explained the procedure in understandable terms and the patient was given the option to take printed material concerning the planned procedure. The patient had the opportunity to ask questions concerning the planned procedure. The patient freely consents to the planned procedure. Diagnoses: (R92.8) Abnormal mammogram (primary encounter diagnosis) My findings have been communicated to Dr. Leny Hsu MD via shared medical record. Thisnote will be forwarded to Dr. Leny Hsu MD. Return to Clinic: The patient is instructed to follow-up with me 1 week post operatively. Kirk Cast III, MD documented in this encounterK[facility]05-01-2023 Nurse Note* Zoey Fishman LPN - 11/06/2022 1:18 PM EDT REVIEW OF SYSTEMS: General: The patient denies fatigue, notes weight loss, notes weight gain, notes feeling hot, and denies feelings of cold. Eyes: The patient denies glaucoma, denies eye injury/surgery, does not wear glasses or contacts. Ear/Nose/Throat: The patient notes allergies, denies hayfever, notes ear infections, and denies bloody noses. Cardiovascular: The patient notes chest pain, denies heart disease, notes high blood pressure,denies cardiac stent, denies prior heart attack, denies irregular heart beat, denies high cholesterol, denies poor circulation, denies heart failure, other cardiac issues, denies claudication, denies cold feet, denies peripheral arterial stent. Respiratory: The patient denies tuberculosis, denies pneumonia, denies frequent cough, denies pulmonary embolism, denies shortness of breath, and denies coughing up blood, note asthma Gastrointestinal: The patient denies difficulty swallowing, notes acid reflux, denies ulcers, notesvomiting, denies jaundice/hepatitis, denies gallbladder problems, denies black or tarry stools, denies hemorrhoids, denies bleeding from rectum, denies diverticulitis, notes constipation, notes diarrhea, denies loss of stool control, and notes hernias. Kidney/Bladder: The patient denies kidney stones, notes urine infections, and denies bloody urine. Skin: The patient denies a history of skin cancer, denies bleeding/changing moles, and denies a history of skin rash. Neurologic: The patient denies a history of epilepsy/convulsions, notes headaches, denies head/spinal injuries, and denies stroke/TIA. Psychiatric: The patient notes psychiatric medications, notes depression, and denies voices, deniessubstance abuse. Endocrine: The patient notes thyroid disorders, denies diabetes, and denies hormonal problems. Hematologic: The patient notes a history of bruising, denies bleeding, and denies anemia, denies blood clots. Infections: The patient notes a history of measles and mumps, denies rheumatic fever, and denies sexually transmitted diseases. Musculoskeletal: The patient notes back pain/injury, notes back problems, denies sciatica, notes knee/foot trouble, denies arthritis, or denies gout. When was patient's last Mammogram screening? 2022 Last Colonoscopy: 2021 Zoey Fishman LPN documented in this encounterK[facility]04-13-2023 Miscellaneous Notes* Telephone Encounter - Jenny Turk [facility] - 10/19/2022 9:22 AM EDT No answer and no VM set up- will need to try back later Jenny Turk Cma * Telephone Encounter - Bradley Mcmullen APRN.CNP - 10/19/2022 8:16 AM EDT Please let patient know that her mammogram and ultrasound are abnormal. I have sent a referral to general surgery for a biopsy. documented in this encounterK[facility]04-12-2023 History of Present illness Narrative* Alda Hoff RDMS - 10/18/2022 3:00 PM EDT Radiology Service Progress Note PATIENT NAME: Maximus Bradley DATE OF SERVICE: October 18, 2022 TIME: 3:25 PM PATIENT IDENTITY VERIFICATION COMPLETED USING TWO (2) IDENTIFIERS: Name and Date of confirmedby patient verbally. FALL SCREENING: Has the patient had 2 falls in the last year or 1 fall with injury or currently using an Ambulatory Assistive Device (Walker, Cane, Wheelchair, Crutches, etc.)? No PATIENT GENDER DATA: Female. status: : No status: NO. PATIENT RELEVANT IMPLANT DATA REVIEWED: Not Applicable RADIOLOGY DEPARTMENT: Ultrasound PERIPHERAL IV DATA: Not applicable SIGNED BY: Alda Hoff RDMS RVT October 18, 2022 3:25 PM documented in this encounterK[facility]04-12-2023 History of Present illness Narrative* Cece Le RT(Jesus) - 10/18/2022 2:30 PM EDT Radiology Service Progress Note PATIENT NAME: Maximus Bradley DATE OF SERVICE: October 18, 2022 TIME: 2:37 PM PATIENT IDENTITY VERIFICATION COMPLETED USING TWO (2) IDENTIFIERS: Name and Date of confirmedby patient verbally. FALL SCREENING: Has the patient had 2 falls in the last year or 1 fall with injury or currently using an Ambulatory Assistive Device (Walker, Cane, Wheelchair, Crutches, etc.)? No PATIENT GENDER DATA: Female. status: : No status: NO. PATIENT RELEVANT IMPLANT DATA REVIEWED: Not Applicable RADIOLOGY DEPARTMENT: Mammography PERIPHERAL IV DATA: Not applicable SIGNED BY: RT Deyanira(R) October 18, 2022 2:37 PM documented in this encounterK[facility]03-17-2023 Miscellaneous Notes* Telephone Encounter - Tamica Gamez LPN - 09/22/2022 1:57 PM EDT Patient has been identified by name and date of : Pharmacy phones for refill(s): Requested Prescriptions Pending Prescriptions Disp Refills topiramate (TOPAMAX) 25 mg capsule 90 capsule 5 Sig: Take 50 mg PO in the morning and 25 mg at night. Date of last office visit in primary care: 08/30/2022, no future appt scheduled Last 2 Encounter Wt Readings: Date: Wt: 08/30/2022 89.8 kg (198 lb) 08/15/2022 89.3 kg (196 lb 12.8 oz) Previous labs/tests for medication: Not applicable Please advise. Thank you. Tamica Gamez LPN documented in this encounterK[facility]02-27-2023 Miscellaneous Notes* Letter - Mammography Coordinator - 09/04/2022 1:16 PM EST September 05, 2022 PID: [id number] Maximus Bradley [id number] [place], [place] [id number] Dear Ms. Bradley, Your recent breast imaging exam on 09/01/2022 showed a possible finding that requires additional imaging studies for a complete evaluation. Most such findings are probably benign (not cancer). If you have a healthcare provider who ordered/prescribed your screening mammogram: Please call [phone] or [phone]: [phone] to schedule an appointment for your additional imaging (if youhave not already done so). If you DO NOT have a healthcare provider (ie you did not have an order/prescription for your screening mammogram): Please call to schedule an appointment for your additional imaging (if you have not already done so). You must have an order/prescription from your physician when calling to schedule your appointment. If your order/prescription is not electronic, you must bring the hard copy with you on the day of your exam to avoid delays. Your imaging studies and reports are [facility] as part of [facility] permanent medical record, and are available for your continuing care. Thank you for allowing us to help in meeting your health care needs. Sincerely, Dr. Charles Interpreting Radiologist [facility] (Additional imaging) documented in this encounterKettering [facility]02-24-2023 Miscellaneous Notes* Telephone Encounter - Maya Hernandez RN - 09/01/2022 3:25 PM EST Pt called and is notified of providers results. Pt voices understanding. Maya Hernandez RN * Telephone Encounter - Bradley Mcmullen APRN.CNP - 09/01/2022 3:22 PM EST Please let patient know her xray is normal. documented in this encounterKettering [facility]02-22-2023 History of Present illness Narrative* Cherie Delvalle, RT(R) - 08/30/2022 10:30 AM EST Radiology Service Progress Note PATIENT NAME: Maximus Bradley DATE OF SERVICE: August 30, 2022 TIME: 10:39 AM PATIENT IDENTITY VERIFICATION COMPLETED USING TWO (2) IDENTIFIERS: Name and Date of confirmedby patient verbally. FALL SCREENING: Has the patient had 2 falls in the last year or 1 fall with injury or currently using an Ambulatory Assistive Device (Walker, Cane, Wheelchair, Crutches, etc.)? No PATIENT GENDER DATA: Female. status: : No status: NO. PATIENT RELEVANT IMPLANT DATA REVIEWED: Not Applicable RADIOLOGY DEPARTMENT: General X-ray: Exam(s) Completed: Lower Extremity X- Ray(s): Ankle, Right and Wt. Bearing PERIPHERAL IV DATA: Not applicable SIGNED BY: RT Brittany(R) August 30, 2022 10:39 AM documented in this encounterKettering [facility]02-22-2023 History of Present illness Narrative* Leny Hsu MD - 08/30/2022 10:08 AM EST Chief Complaint Patient presents with: ER F/U: RT ankle HPI Maximus Bradley is a 47 year old female who presents here today for ER Follow Up.. Patient evaluated at [facility] ED on 08/13 after she slipped in mud and twisted her right ankle developing pain over lateral aspect. Diagnosed with 1st degree sprain of ATFL. Did not need imaging based on [place] ankle rules and was treated with NSAIDs and aircast. Discharged home with recommendation to f/uwith our office and 14 tablets of Naproxen. Since discharge, patient states that her ankle is no better. Pain today is about 3/10. Wore the aircast for about a week before it came apart. Taking meloxicam as prescribed by Lydia on 08/15 which is working better than the naproxen. Has not been icing her ankle, just elevating it. Denies swelling, bruising, new injury. Past medical history, appointments, medications, allergies reviewed. Previous Medical History PAST MEDICAL HISTORY Diagnosis Date Abdominal pain, epigastric Abnormal mammogram 09/14/2016 Acute gastritis without mention of hemorrhage Anxiety Class 1 obesity due to excess calories without serious comorbidity with body mass index (BMI) of 34.0 to 34.9 in adult Depression Disability, developmental Gastroesophageal reflux disease with esophagitis without hemorrhage Hypothyroidism LLQ pain 10/07/2013 Low blood sugar 03/29/2015 Reflux esophagitis Urinary retention Pablo Arrington Previous Surgical History PAST SURGICAL HISTORY Procedure Laterality Date COLONOSCOPY 11/28/2021 repeat in 10 years DILATION & CURETTAGE DX&/THER NONOBSTETRIC EGD W/O BRSH SPEC VARICIES INJ 01/30/2022 ESOPHAGOGASTRODUODENOSCOPY TRANSORAL DIAGNOSTIC 07/04/2005 EGD FNA WITH IMAGING Right 09/26/2016 U/S FNA UOQ right breast LIG/TRNSXJ FLP TUBE ABDL/VAG APPR UNI/BI Tubal ligation Family History FAMILY HISTORY Adopted: Yes Problem Relation Age of Onset Cancer Father lung No Known Problems Sister No Known Problems Sister No Known Problems Brother No Known Problems Brother No Known Problems Brother other (Liver Disease) Paternal Grandmother Cancer Paternal Grandfather Lung No Known Problems Son Cancer Paternal Uncle Throat Patient Allergies ALLERGIES Allergen Reactions Bee Pollen Anaphylaxis Adderall [Dextroamp* Itching Imitrex [Sumatripta* Other: See Comments palpitations Current Medications Current Outpatient Medications on File Prior to Visit Medication Sig albuterol HFA (VENTOLIN HFA) 90 mcg/actuation inhaler Inhale 2 Puffs as instructed every 4 hours asneeded for wheezing/shortness of breath. rizatriptan (MAXALT) 10 mg tablet Take one pill at the onset of headache, repeat in a couple hours if not better, no more than 2 tablets a day and no more than 4 tabs a week venlafaxine (EFFEXOR) 100 mg tablet Take 1 tablet by mouth twice daily. meloxicam (MOBIC) 15 mg tablet Take 1 tablet by mouth once daily. With food. busPIRone (BUSPAR) 5 mg tablet Take 1 tablet by mouth twice daily. topiramate (TOPAMAX) 25 mg capsule Take 50 mg PO in the morning and 25 mg at night. VITAMIN D-3 50 mcg (2,000 unit) tablet TAKE 2 TABLETS (4000 UNITS) BY MOUTH ONCE DAILY tamsulosin (FLOMAX) 0.4 mg Take 1 capsule by mouth daily at bedtime. levothyroxine (SYNTHROID) 75 mcg tablet Take 1 tablet by mouth once daily. Take on empty stomach. For Thyroid buPROPion XL (WELLBUTRIN XL) 300 mg 24 hr tablet Take 1 tablet by mouth once daily. No current facility-administered medications on file prior to visit. Social History Social History Tobacco Use Smoking status: Former Packs/day: 1.00 Types: Cigarettes Smokeless tobacco: Former Quit date: 04/25/2015 Vaping Use Vaping Use: Never used Substance Use Topics Alcohol use: No Comment: Occasionally Drug use: No Review of Symptoms REVIEW OF SYSTEMS See HPI EXAM: BP 118/78 Pulse 68 Resp 12 Wt 89.8 kg (198 lb) LMP 11/05/2021 (Approximate) BMI 33.72 kg/m General Appearance: Well appearing, alert, in no acute distress, well-hydrated, well nourished.. Skin: Skin color, texture, turgor normal, no suspicious rashes or lesions. Musculoskeletal: mild swelling over right lateral malleolus with TTP over anterior aspect of lateral malleolus. Normal ROM. 5/5 strength. Negative anterior drawer. No bruising or erythema. Health Maintenance List HEPATITIS B(1 of 3 - 3-dose series) Never done MAMMOGRAM due on 08/09/2022 COVID-19 VACCINE(1) due on 08/15/2023 ANNUAL PCP TEAM CHRONIC DISEASE VISIT due on 08/15/2023 BP CONTROLLED (<130/80) due on 08/15/2023 DIABETES SCREEN due on 03/31/2025 PAP TESTING due on 07/28/2025 HPV TESTING due on 07/28/2025 LIPID SCREEN due on 09/16/2025 DTAP,TDAP,TD(2 - Td or Tdap) due on 10/01/2029 COLORECTAL CANCER SCREENING due on 11/29/2031 INFLUENZA Completed HEPATITIS C SCREENING Completed HIV SCREENING Completed ASSESSMENT/PLAN: 1. Sprain of ligament of right ankle, subsequent encounter - ICD9: V58.89, 845.00, ICD10: S93.401D With continued pain over lateral malleolus, will obtain xray to rule out occult fracture. Refill aircast to be worn daily. Discussed rest, ice, elevation and meloxicam. If not improving in the next couple of weeks, will refer to PT. - AIRCAST PNEUMATIC WALKER ANKLE - XR ANKLE GENERAL 3V AP/LAT/OBL RIGHT Leny Hsu MD documented in this encounterKettering [facility]02-08-2023 Miscellaneous Notes* Telephone Encounter - Bernie Carrasco LPN - 08/16/2022 3:27 PM EST Patient notified. Bernie Carrasco LPN * Telephone Encounter - Lydia Gonzalez APRN.CNP - 08/16/2022 1:25 PM EST Please call patient and let her know her thyroid level is in normal range. Platelets stable. Lydia Gonzalez APRN.CNP documented in this encounterKettering [facility]02-07-2023 Instructions* Patient Instructions* Lydia Gonzalez APRN.CNP - 08/15/2022 2:23 PM EST Counseling and Psychiatry Services Counts Include [address] [facility] [address] [place] [address] *counseling [facility] [address], [address], [place] [address] *counseling [address] [address] *counseling [facility] [address] [place] [address] *counseling and psychiatry [address] [address] *counseling [address] [address] *counseling [facility] [address] [place] [address] *counseling [facility] [address] [place], [place] [address] *counseling [facility] [address] [place] [address] [facility] [address], [address] [place] [address] *counseling [facility] [address] [place], [place] [id number] [facility] [address], [place] [address] *counseling [facility] [address] [place] [address] [facility] [address] [place] [address] *counseling [facility] [address] [place] [address] *counseling [facility] [place] [facility] [address] [phone] *counseling and psychiatry [facility] [employer], [facility] [address] [place], [place] [address] *psychiatry [facility] [phone] *grief counseling, individual and groups *If you ever experience a mental health crisis please call [phone], Please verify with insurance provider for coverage documented in this encounterK[facility]02-07-2023 History of Present illness Narrative* Lydia Gonzalez APRN.CNP - 08/15/2022 2:08 PM EST 08/15/2022 Patient presents with: Physical SUBJECTIVE: This is a 47 year old that is here today for Above Complaints. Recent visit to [facility] for right ankle sprain otherwise has been in good health without other ER visits or hospitalizations Migraines: taking Topamax and using sumatriptan for abortive therapy. Getting about one - two a month. Sumatriptan works for abortive therapy. Goes to chiropractor as well. Depression: taking Effexor as prescribed. Does not think it is helping much. Sleeping okay. Admits to feeling down and depresses a lot of days. Does not attend counseling. Denies SI or HI Following with gastro for GERD, upper abd pain, and IBS. Last office appointment last month HYPOTHYROIDISM: taking synthroid as prescribed without side effects Requesting pain medication for her ankle sprain. Reports has been taking naproxen without much relief. PAST MEDICAL HISTORY Diagnosis Date Abdominal pain, epigastric Abnormal mammogram 09/14/2016 Acute gastritis without mention of hemorrhage Anxiety Class 1 obesity due to excess calories without serious comorbidity with body mass index (BMI) of 34.0 to 34.9 in adult Depression Disability, developmental Gastroesophageal reflux disease with esophagitis without hemorrhage Hypothyroidism LLQ pain 10/07/2013 Low blood sugar 03/29/2015 Reflux esophagitis Urinary retention P[facility] [place] ALLERGIES Bee Pollen, Adderall [Dextroamphetamine-Amphetamine], and Imitrex [Sumatriptan] MEDICATIONS Current Outpatient Medications Medication Sig venlafaxine (EFFEXOR) 75 mg tablet Take 2 tablets by mouth twice daily. rizatriptan (MAXALT) 10 mg tablet Take one pill at the onset of headache, repeat in a couple hours if not better, no more than 2 tablets a day and no more than 4 tabs a week busPIRone (BUSPAR) 5 mg tablet Take 1 tablet by mouth twice daily. topiramate (TOPAMAX) 25 mg capsule Take 50 mg PO in the morning and 25 mg at night. buPROPion XL (WELLBUTRIN XL) 300 mg 24 hr tablet Take 1 tablet by mouth once daily. VITAMIN D-3 50 mcg (2,000 unit) tablet TAKE 2 TABLETS (4000 UNITS) BY MOUTH ONCE DAILY dicyclomine (BENTYL) 10 mg capsule Take 1 capsule by mouth three times daily as needed (for abdominal pain). tamsulosin (FLOMAX) 0.4 mg Take 1 capsule by mouth daily at bedtime. levothyroxine (SYNTHROID) 75 mcg tablet Take 1 tablet by mouth once daily. Take on empty stomach. For Thyroid pantoprazole DR (PROTONIX) 40 mg tablet TAKE 1 TABLET BY MOUTH TWICE A DAY (Patient not taking: Reported on 08/15/2022) polyethylene glycol 3350 (MIRALAX) 17 gram/dose powder Take 17 g by mouth once daily. Dissolve dosein 4 - 8 ounces of liquid and take as directed. (Patient not taking: Reported on 08/15/2022) fluticasone (FLONASE) 50 mcg/actuation nasal spray Use 1 Mobile in each nostril twice daily. Rinse mouth after use. etodolac (LODINE) 400 mg tablet TAKE 1 TABLET BY MOUTH TWICE A DAY (Patient not taking: No sig reported) albuterol HFA (VENTOLIN HFA) 90 mcg/actuation inhaler Inhale 2 Puffs as instructed every 4 hours asneeded for wheezing/shortness of breath. No current facility-administered medications for this visit. Medications and allergies reviewed by this provider. SOCIAL HISTORY Social History Tobacco Use Smoking status: Former Packs/day: 1.00 Types: Cigarettes Smokeless tobacco: Former Quit date: 04/25/2015 Vaping Use Vaping Use: Never used Substance Use Topics Alcohol use: No Comment: Occasionally Drug use: No REVIEW OF SYSTEMS GENERAL: No weight loss, malaise or fevers HEENT: No changes in hearing or vision, no nose bleeds or other nasal problems NECK: Negative for lumps, goiter, pain and significant neck swelling RESPIRATORY: Negative for cough, hemoptysis, wheezing, COPD, dyspnea or shortness of breath CARDIOVASCULAR: Negative for chest pain, leg swelling, hypertension, CHF or palpitations GI: See HPI : No history of dysuria, frequency or incontinence RECREATION COORDINATOR: Negative for abnormal vaginal bleeding, abnormal vaginal discharge MUSCULOSKELETAL: See HPI SKIN: Negative for lesions, rash, and itching PSYCH: Negative for sleep disturbance, mood disorder and recent psychosocial stressors, See HPI HEMATOLOGY/LYMPHOLOGY: Negative for prolonged bleeding, bruising easily or swollen nodes ENDOCRINE: Negative for cold or heat intolerance, polyuria, polydipsia and goiter NEURO: No history of syncope, paralysis, seizures or tremors All other reviewed and negative other than HPI. OBJECTIVE: BP 120/78 Pulse 93 Resp 18 Ht 163.2 cm (5' 4.25") Wt 89.3 kg (196 lb 12.8 oz) LMP 11/05/2021 (Approximate) SpO2 97% BMI 33.52 kg/m . Vital signs reviewed by this provider. APPEARANCE Well appearing, alert, in no acute distress, well-hydrated, well nourished. EYES PERRLA, conjunctiva and sclera normal. EARS External ears normal, canals clear NECK Supple, no adenopathy; thyroid symmetric, normal size, no bruits HEART RRR with normal S1 and S2, no murmurs, no gallops, no JVD appreciated LUNG clear to auscultation. No wheezes, rhonchi or rales EXTREMITIES Normal pulses bilaterally. SKIN Skin color, texture, turgor normal, no suspicious rashes or lesions to exposed skin RIGHT ANKLE: ankle brace in place. 2+ pedal pulse. Component Latest Ref Rng & Units 03/31/2022 WBC 3.70 - 11.00 k/uL 9.62 RBC 3.90 - 5.20 m/uL 5.18 Hemoglobin 11.5 - 15.5 g/dL 14.2 Hematocrit 36.0 - 46.0 % 43.6 MCV 80.0 - 100.0 fL 84.2 MCH 26.0 - 34.0 pg 27.4 MCHC 30.5 - 36.0 g/dL 32.6 RDW-CV 11.5 - 15.0 % 12.5 Platelet Count 150 - 400 k/uL 541 (H) MPV 9.0 - 12.7 fL 10.0 Neut% % 66.3 Abs Neut (ANC) 1.45 - 7.50 k/uL 6.37 Lymph% % 24.1 Abs Lymph 1.00 - 4.00 k/uL 2.32 Fannin% % 6.0 Abs Fannin <0.87 k/uL 0.58 Eosin% % 2.3 Abs Eosin <0.46 k/uL 0.22 Baso% % 1.0 Abs Baso <0.11 k/uL 0.10 Immature Gran % % 0.3 IMMATURE GRANS (ABS) <0.10 k/uL 0.03 NRBC /100 WBC 0.0 Absolute nRBC <0.01 k/uL <0.01 DTYPE Auto Protein, Total 6.3 - 8.0 g/dL 6.9 Albumin 3.9 - 4.9 g/dL 4.3 Calcium 8.5 - 10.2 mg/dL 9.6 Bilirubin, Total 0.2 - 1.3 mg/dL 0.4 Alkaline Phosphatase 34 - 123 U/L 76 AST 13 - 35 U/L 14 ALT 7 - 38 U/L 13 Glucose 74 - 99 mg/dL 86 BUN 7 - 21 mg/dL 10 Creatinine 0.58 - 0.96 mg/dL 0.84 Sodium 136 - 144 mmol/L 139 Potassium 3.7 - 5.1 mmol/L 3.9 Chloride 97 - 105 mmol/L 103 CO2 22 - 30 mmol/L 25 Anion Gap 9 - 18 mmol/L 11 eGFR >=60 mL/min/1.73m 87 TSH 0.270 - 4.200 mIU/L 5.220 (H) HEPATITIS B(1 of 3 - 3-dose series) Never done MAMMOGRAM due on 08/09/2022 COVID-19 VACCINE(1) due on 08/15/2023 ANNUAL PCP TEAM CHRONIC DISEASE VISIT due on 08/15/2023 BP CONTROLLED (<130/80) due on 08/15/2023 DIABETES SCREEN due on 03/31/2025 PAP TESTING due on 07/28/2025 HPV TESTING due on 07/28/2025 LIPID SCREEN due on 09/16/2025 DTAP,TDAP,TD(2 - Td or Tdap) due on 10/01/2029 COLORECTAL CANCER SCREENING due on 11/29/2031 INFLUENZA Completed HEPATITIS C SCREENING Completed HIV SCREENING Completed ASSESSMENT/PLAN: 1. Annual physical exam - ICD9: V70.0, ICD10: Z00.00 (primary diagnosis) - Counseled on healthy diet and regular exercise - Calcium intake with supplements or by diet of 1000 mg/day for under 50, 1200- 1500 mg/day for 50+ - Discussed need and benefit for weight loss. BMI 33.52 kg/(m^2) - Mammogram ordered - exam recommended once yearly - Follow up for annual exam in one year 2. Migraine without aura and without status migrainosus, not intractable - ICD9: 346.10, ICD10: G43.009 - stable on current regime - RIZATRIPTAN 10 MG TABLET 3. Thrombocytosis - ICD9: 238.71, ICD10: D75.839 - noted on blood work from March - CBC + DIFF 4. Acquired hypothyroidism - ICD9: 244.9, ICD10: E03.9 - Instructed patient on importance of taking on an empty stomach either first thing in the morning or at bedtime. - check TSH today - continue current dose of Synthroid 0.075 mg - Follow up in 6 months - TSH BLD 5. Encounter for screening mammogram for breast cancer - ICD9: V76.12, ICD10: Z12.31 - PARTH SCREENING 6. Encounter for immunization - ICD9: V03.89, ICD10: Z23 - INFLUENZA VACCINE QUADRIVALENT 6 MO - 64 YRS IM 7. Sprain of ligament of right ankle, subsequent encounter - ICD9: V58.89, 845.00, ICD10: S93.401D - no red flag symptoms or exam findings - rest, ice, compression, and elevate - MELOXICAM 15 MG TABLET- discussed not to take any other NSAID products while taking, verbalizes understanding - follow-up if symptoms fail to improve 8. Moderate episode of recurrent major depressive disorder (HCC) - ICD9: 296.32, ICD10: F33.1 - will increase Effexor - counseling encouraged - handout of local areas given to patient - VENLAFAXINE 100 MG TABLET - follow-up if symptoms fail to improve Lydia Gonzalez APRN.FONDANT COOKER Prescription instructions reviewed with patient as applicable. Patient advised if symptoms do not improve or if symptoms worsen sooner, to contact their primary care physician. Potential red flag symptoms discussed with the patient. Reviewed appropriate action plan to take if red flag symptoms occur. Patient agreeable to treatment plan. documented in this encounterK[facility]02-07-2023 Miscellaneous Notes* Telephone Encounter - Gala Gonzalez Ma - 08/15/2022 9:58 AM EST Patient scheduled for physical Gala Gonzalez Ma * Telephone Encounter - Krystyna Welch - 08/15/2022 9:46 AM EST Patient called wanting to know her plan of care for her thyroid medication. She wants to have a structured plan of office visits and blood work. Please notify the patient of plan of care. documented in this encounterKet[facility]02-05-[address] Ivy [facility] August 13, 2022 3:32pm Note Date/Time August 13, 2022 3 :30pm [facility] Medical Records Department [address] [place] [address] Emergency Department Summary 08/13/22 MR#: [id number] Acct: [id number] Name: MAXIMUS BRADLEY Rep #:[id number] : 1975 47 From: Kain Ivy MD PCP: Dr. Isaac Hsu MD Status :PRE ER Location: ED HPI History of Present Illness Chief Complaint: Lower Extremity Injury Detail of Chief Complaint: Injury right ankle just prior to arrival Informant: patient and parent Occured/Mechanism Mechanism/Context: Yes same level fall Comment: Patient was walking. She slipped in mud. She twisted her ankle. She presents because of pain that she localizes over the lateral aspect of the rightankle. Onset/Context/Timing Onset: Hours Context: Sudden Onset Timing: Continuous Quality of Pain: Dull and Aching Location: Anterior the right lateral malleolus Current Severity: Mild Maximum Severity: Moderate Worsened by: Palpation over the anterior talofibular ligament Relieved by: Rest and elevate Associated Symptoms Associated Symptoms: Negative for Parasthesia, Weakness or Loss of Funtion Narrative Narrative: Patient is a 47-year-old woman with no significant past medical history and no contraindication to NSAIDs. She denies injury to her knee or hip. She denies history of PAD. She denies history of peptic ulcer disease, black or maroon-colored stool. She denies history of diabetes or hypertension. She denies prior injury to her right ankle. Tetanus Immunization: Unknown Prior similar symptoms: No Recent Illness/Hospitalization: No PFSH PFSH Medical History Abdominal pain Anxiety Depression Developmental disability Fibrocystic change of breast HTN (hypertension) hypercholesterolemia Hypothyroid Insect bite Lab test negative for COVID-19 virus Migraines Thrush Home Medications candesartan 16 mg tablet 16 mg PO DAILY 12/12/15 [History Last Taken 12/24/19 05:00] levothyroxine 50 mcg tablet 50 mcg PO DAILY 12/12/15 [History Last Taken 12/24/19 05:00] cholecalciferol (vitamin D3) 50 mcg (2,000 unit) tablet 2 tab PO DAILY 01/28/19 [History Last Taken Unknown] albuterol sulfate 90 mcg/actuation aerosol inhaler 2 puff inhalation PRN PRN Sob&/Or Wheezing 12/17/19 [History Last Taken 12/24/19 05:00] escitalopram oxalate 20 mg tablet 20 mg PO DAILY 12/17/19 [History Last Taken Unknown] montelukast 10 mg tablet 10 mg PO QHS 12/17/19 [History Last Taken Unknown] tamsulosin 0.4 mg capsule 0.4 mg PO DAILY 12/17/19 [History Last Taken Unknown] bupropion HCl 300 mg 24 hr tablet, extended release 300 mg PO DAILY 12/23/19 [History Last Taken Unknown] topiramate 25 mg tablet 25 mg PO QHS 12/23/19 [History Last Taken Unknown] omeprazole 40 mg capsule,delayed release 40 mg PO DAILY 02/10/20 [History Last Taken Unknown] prednisone 20 mg tablet 60 mg PO DAILY #15 tabs 03/01/22 [Rx Last Taken Unknown] naproxen 500 mg tablet 500 mg PO BID #14 tabs 08/13/22 [Rx Last Taken Unknown] Allergy/AdvReac Type Severity Reaction Status Date / Time amphetamine aspartate Allergy Itching Verified 08/13/22 15:15 [From Adderall] amphetamine sulfate Allergy Itching Verified 08/13/22 15:15 [From Adderall] dextroamphetamine saccharate Allergy Itching Verified 08/13/22 15:15 [From Adderall] dextroamphetamine sulfate Allergy Itching Verified 08/13/22 15:15 [From Adderall] sumatriptan [From Imitrex] Allergy Chest Verified 08/13/22 15:15 tightness sumatriptan succinate Allergy Chest Verified 08/13/22 15:15 [From Imitrex] tightness venom-honey bee Allergy Anaphylaxis Verified 08/13/22 15:15 Family History Father Cancer Surgical History History of dilation and curettage History of esophagogastroduodenoscopy (EGD) History of tubal ligation Status post fine needle aspiration Social History (Updated 08/13/22 @ 15:[address] Kain Ivy MD) household members: family Smoking Status: Never smoker substance use type: does not use ROS ROS ED ENT ENT ED: Reports other Details: Denies epistaxis. ; Denies ear pain, rhinorrhea or sore throat Cardiovascular Cardiovascular: Denies chest pain or palpitations Respiratory/Chest Respiratory/Chest: Denies cough, dyspnea or dyspnea on exertion Gastrointestinal Gastrointestinal: Denies nausea or vomiting Neurologic Neurologic: Denies paresthesias or weakness Hematologic/Lymphatic Hematologic/Lymphatic: Denies easy bleeding or easy bruising EXAM Physical Exam Const Vital Signs: 08/13/22 15:14 Temperature 97.6 F L Temperature Source Temporal Pulse Rate 110 H Respiratory Rate 16 Blood Pressure 121/80 H Blood Pressure Mean 93 Pulse Ox 98 Oxygen Delivery Method Room Air Positive well nourished, well developed and obese General Appearance ED: well developed and NAD Nutritional Appearance: obese HEENT Reports moist mucous membranes HEENT Narrative: Ears are normal. Nares patent. No septal deviation hematoma. No dental trauma. normocephalic and atraumatic Eyes Eyes Narrative: Pupils equal round reactive. Extraocular muscles are intact. There is no septal junctional hemorrhage. Neck full ROM and supple Thyroid: Negative for tender Resp normal respiratory effort Cardio regular rate and regular rhythm Back/Spine no CVA tenderness Thoracic Spine / Upper Back: Negative for thoracic spinal tenderness Lumbar Spine / Lower Back: Negative for lumbar spinal tenderness Extremity full ROM; Negative for normal to inspection Extremity Narrative: There is swelling anterior to the lateral malleolus. There is no pain the patient over the medial malleolus or lateral malleolus. There is tenderness over the anterior talofibular ligament. There is no laxity with drawer testing. There is no pain to palpation at the base of the fifth metatarsal. DP and PT pulse are palpable. General Extremety ED: Negative for cyanosis, edema or weight-bearing difficulty General Extremity: Negative for cyanosis, edema or weight-bearing difficulty Neuro oriented x3, CN's II-XII intact bilaterally, moves all extremities and no sensory deficits noted Sensorium / Orientation: alert Psych mental status grossly normal Skin no wounds Lesions: no lesions Rashes: no rashes MDM MDM MDM Narrative Medical decision making narrative: Patient has a stable first-degree sprain of the anterior talofibular ligament. Per the [place] ankle rule imaging is not indicated. Patient was treated with NSAID and Aircast. Patient was referred to her doctor. She was instructed to draw the output with her foot 4-6 times a day. She was instructed to wear flat shoes and no inclines or going up ladders. Review of prior records indicates that patient has history of hypertension and hypercholesterolemia. She is on no medicine for elevated cholesterol. And she is on no medicine for hypertension. Patient was asked again whether she had hypertension and she denied. Discharge Plan Triage Chief Complaint: Lower Extremity Injury ED Provider: Kain Ivy Dx/Rx/DC Orders Clinical Impression: Sprain of anterior talofibular ligament of right ankle Prescriptions: New naproxen 500 mg tablet 500 mg PO BID Qty: 14 0RF No Action montelukast 10 mg tablet 10 mg PO QHS Label Comments: TAKE 1 TABLET BY MOUTH EVERYDAY AT BEDTIME escitalopram oxalate 20 mg tablet 20 mg PO DAILY Label Comments: TAKE 1 TABLET BY MOUTH EVERY DAY albuterol sulfate 90 mcg/actuation HFA aerosol inhaler 2 puff INHALATION PRN PRN (Reason: Sob &/Or Wheezing) Label Comments: INHALE 2 PUFFS BY MOUTH INSTRUCTED EVERY 4 HOURS NEEDED FOR WHEEZING/SHORTNESS OF BREATH. tamsulosin 0.4 mg capsule 0.4 mg PO DAILY Label Comments: TAKE 1 CAPSULE BY MOUTH EVERYDAY AT BEDTIME omeprazole 40 mg capsule,delayed release(DR/EC) 40 mg PO DAILY Label Comments: TAKE 1 CAPSULE BY MOUTH EVERY DAY levothyroxine 50 MCG tablet 50 mcg PO DAILY candesartan 16 MG tablet 16 mg PO DAILY cholecalciferol (vitamin D3) 2,000 UNIT tablet 2 tab PO DAILY topiramate 25 mg Tablet 25 mg PO QHS bupropion HCl 300 MG tablet extended release 24 hr 300 mg PO DAILY prednisone 20 mg tablet 60 mg PO DAILY Qty: 15 0RF Primary Care Provider: Isaac Hsu Referrals: Isaac Hsu MD [Primary Care Provider] - 10-14 Days if not better Activity Restrictions/Additional Instructions: 1. Draw the alphabet with your foot 4-6 times a day 2. Apply ice 6-10 times a day 3. Take Naprosyn as prescribed [id number]. 4. Do not wear heeled shoes. Wear shoes with out a heel cord elevation. 5. You should not go up any inclines or ladders until you are pain-free. 6. Wear Aircast during the day for support and stability. You may remove priorto going to bed. Disposition Disposition: Home, Self Care What to do if you have Problems For any increased pain, shortness of breath, bleeding, nausea or vomiting, chestpain, or any unexpected problems, contact your Primary Care Provider. Call [facility] ([phone]) or report to the closest Emergency Room. Call 911 if necessary. 08/13/22 5732 <Electronically signed by Kain Ivy MD> Cosigner Signature (if applicable): CC: Dr. Isaac Hsu MD ~ Signed [facility] Work Phone: 1(348) 807-357302-05-2023 Hospital Discharge instructions Additional Instructions 1. Draw the alphabet with your foot 4-6 times a day 2. Apply ice 6-10 times a day 3. Take Naprosyn as prescribed [id number]. 4. Do not wear heeled shoes. Wear shoes with out a heel cord elevation. 5. You should not go up any inclines or ladders until you are pain-free. 6. Wear Aircast during the day for support and stability. You may remove prior to going to bed.[facility] Work Phone: 1(949) 643-497811-15-2022 Miscellaneous Notes* Telephone Encounter - Shraddha Tucker RN - 05/23/2022 3:30 PM EST Last Office Visit: 11/02/2021 Future Office Visit: None Requested Prescriptions Pending Prescriptions Disp Refills rizatriptan (MAXALT) 10 mg tablet 9 tablet 1 Sig: Take one pill at the onset of headache, repeat in a couple hours if not better, no more than 2tablets a day and no more than 4 tabs a week Date of Last Labs: 03/31/2022 documented in this encounterK[facility]11-03-2022 History of Present illness Narrative* Giana Wagner RT(R) - 05/11/2022 11:20 AM EDT Radiology Service Progress Note DATE OF SERVICE: May 11, 2022 TIME: 2:00 PM PATIENT IDENTITY VERIFICATION COMPLETED USING TWO (2) STANDARD IDENTIFIERS: Name and Date of confirmed by patient verbally. FALL SCREENING: Has the patient had 2 falls in the last year or 1 fall with injury or currently using an Ambulatory Assistive Device (Walker, Cane, Wheelchair, Crutches, etc.)? No PATIENT GENDER DATA: Female. status: : No status: NO. PATIENT RELEVANT IMPLANT DATA REVIEWED: Yes ALLERGIES: Reviewed and unchanged CONTRAST ALLERGY: NO. EXAM: CT -CONTRAST INDUCED NEPHROPATHY RISK FACTORS: Not applicable CREATININE: Creatinine Date Value Ref Range Status 03/31/2022 0.84 0.58 - 0.96 mg/dL Final 03/28/2021 0.77 0.58 - 0.96 mg/dL Final 12/10/2020 0.86 0.58 - 0.96 mg/dL Final Estimated Glomerular Filtration Rate Date Value Ref Range Status 03/31/2022 87 >=60 mL/min/1.73m Final Comment: Estimated Glomerular Filtration Rate (eGFR) is calculated using the 2020 CKD-EPI creatinine equation. This equation utilizes serum creatinine, sex, and age as parameters. The creatinine assay has traceable calibration to isotope dilution- mass spectrometry. Refer to KDIGO guidelines for clinical interpretation. In patients with unstable renal function, e.g. those with acute kidney injury, the eGFRmay not accurately reflect actual GFR. eGFR- Date Value Ref Range Status 03/28/2021 >60 Final P.O.C.T. RESULTS: POC done: Yes, See Lab Tab May 11, 2022 TREATMENT: N/A PERIPHERAL IV DATA: Ambulatory: A peripheral IV was started in the Left antecubital site with a Angio cath: 22 gauge. RADIOLOGY DEPARTMENT: CT; Exam(s) Completed: Abdomen/Pelvis SIGNATURE: RT Kayode(R) PATIENT NAME: Maximus Bradley DATE: May 11, 2022 TIME: 2:00 PM documented in this encounterKet[facility]10-26-2022 Miscellaneous Notes* Telephone Encounter - Jessica Marsh LPN - 05/03/2022 4:08 PM EDT Pharmacy calls in requesting the following refill(s): Requested Prescriptions Pending Prescriptions Disp Refills busPIRone (BUSPAR) 5 mg tablet 180 tablet 1 Sig: Take 1 tablet by mouth twice daily. documented in this encounterKettering [facility]10-20-2022 History of Present illness Narrative* Nicole Solano PA-C - 04/27/2022 12:58 PM EDT CHIEF COMPLAINT: Patient presents with: Recheck: EGD 01/30/22 HPI Maximus Bradlye is a 46 year old female here today for Recheck (EGD 01/30/22 ). Seen last for alternating bowel habits, hiatal hernia with GERD. TSH levels were elevated, rest of basic labs/Celiac serology WNL. Reported GES from [place] last year that was normal. Advised to start Bentyl PRN, switched from Prilosec to Protonix 40 mg BID. Includes that this helped more for her reflux. Bentyl not helping at all for her abdominal pain. Persistent LUQ, "knot sensation", increased abd bloating, 8-9/10, intermittent . Bms are every 4-5 days, constipated, did not try previously recommended fiber/Miralax. Colon 11/2021 non-bleeding internal hemorrhoids, no specimens EGD 01/2022 mild reactive changes in distal esophagus, normal gastric biopsies RUQ US 12/2021 IMPRESSION: Slightly coarsened hepatic echotexture with heterogeneous echogenicity which can be seen in association with fatty infiltration. Unremarkable gallbladder. HIDA 12/2021 IMPRESSION: * No scintigraphic evidence of obstructive acute cholecystitis. * Normal gallbladder ejection fraction. * Patent CBD. OV 03/2022 Maximus Bradley is a 46 year old female who presents for Abdominal Pain (Nausea, Constipation/Diarrhea ). Admits to bowel habit changes for several years. Bms are altered between constipated/diarrhea, no blood. Colon 11/2021 essentially unremarkable. Has not tried any alleviating measures. Has Miralax at home but has not tried yet. Abd pain is in mid-abdomen, no improvement with BM. Prilosec 40 mg BID helping minimally for reflux. Takes Advil migraine regularly. Reports GES in the past year with [facility] that was normal. Denies unintentional weight loss. Colon 11/2021 non-bleeding internal hemorrhoids, no specimens EGD 01/2022 mild reactive changes in distal esophagus, normal gastric biopsies RUQ US 12/2021 IMPRESSION: Slightly coarsened hepatic echotexture with heterogeneous echogenicity which can be seen in association with fatty infiltration. Unremarkable gallbladder. HIDA 12/2021 IMPRESSION: * No scintigraphic evidence of obstructive acute cholecystitis. * Normal gallbladder ejection fraction. * Patent CBD. Current Outpatient Medications Medication Sig topiramate (TOPAMAX) 25 mg capsule Take 50 mg PO in the morning and 25 mg at night. buPROPion XL (WELLBUTRIN XL) 300 mg 24 hr tablet Take 1 tablet by mouth once daily. VITAMIN D-3 50 mcg (2,000 unit) tablet TAKE 2 TABLETS (4000 UNITS) BY MOUTH ONCE DAILY dicyclomine (BENTYL) 10 mg capsule Take 1 capsule by mouth three times daily as needed (for abdominal pain). pantoprazole DR (PROTONIX) 40 mg tablet Take 1 tablet by mouth twice daily. fluticasone (FLONASE) 50 mcg/actuation nasal spray Use 1 Mobile in each nostril twice daily. Rinse mouth after use. tamsulosin (FLOMAX) 0.4 mg Take 1 capsule by mouth daily at bedtime. rizatriptan (MAXALT) 10 mg tablet Take one pill at the onset of headache, repeat in a couple hours if not better, no more than 2 tablets a day and no more than 4 tabs a week levothyroxine (SYNTHROID) 75 mcg tablet Take 1 tablet by mouth once daily. Take on empty stomach. For Thyroid busPIRone (BUSPAR) 5 mg tablet Take 1 tablet by mouth twice daily. albuterol HFA (VENTOLIN HFA) 90 mcg/actuation inhaler Inhale 2 Puffs as instructed every 4 hours asneeded for wheezing/shortness of breath. etodolac (LODINE) 400 mg tablet TAKE 1 TABLET BY MOUTH TWICE A DAY (Patient not taking: No sig reported) venlafaxine (EFFEXOR) 75 mg tablet Take 2 tablets by mouth twice daily. No current facility-administered medications for this visit. ALLERGIES Allergen Reactions Bee Pollen Anaphylaxis Adderall [Dextroamp* Itching Imitrex [Sumatripta* Other: See Comments palpitations Social History Tobacco Use Smoking status: Former Packs/day: 1.00 Types: Cigarettes Smokeless tobacco: Former Quit date: 04/25/2015 Vaping Use Vaping Use: Never used Substance Use Topics Alcohol use: No Comment: Occasionally Drug use: No PAST MEDICAL HISTORY Diagnosis Date Abdominal pain, epigastric Abnormal mammogram 09/14/2016 Acute gastritis without mention of hemorrhage Anxiety Class 1 obesity due to excess calories without serious comorbidity with body mass index (BMI) of 34.0 to 34.9 in adult Depression Disability, developmental Gastroesophageal reflux disease with esophagitis without hemorrhage Hypothyroidism LLQ pain 10/07/2013 Low blood sugar 03/29/2015 Reflux esophagitis Urinary retention Pablo Arrington PAST SURGICAL HISTORY Procedure Laterality Date COLONOSCOPY 11/28/2021 repeat in 10 years DILATION & CURETTAGE DX&/THER NONOBSTETRIC EGD W/O [facility] SPEC VARICIES INJ 01/30/2022 ESOPHAGOGASTRODUODENOSCOPY TRANSORAL DIAGNOSTIC 07/04/2005 EGD FNA WITH IMAGING Right 09/26/2016 U/S FNA UOQ right breast LIG/TRNSXJ FLP TUBE ABDL/VAG APPR UNI/BI Tubal ligation FAMILY HISTORY Adopted: Yes Problem Relation Age of Onset Cancer Father lung No Known Problems Sister No Known Problems Sister No Known Problems Brother No Known Problems Brother No Known Problems Brother other (Liver Disease) Paternal Grandmother Cancer Paternal Grandfather Lung No Known Problems Son Cancer Paternal Uncle Throat REVIEW OF SYSTEMS Review of Systems Constitutional: Positive for activity change. Gastrointestinal: Positive for abdominal distention and abdominal pain. Gas All other systems reviewed and are negative. PHYSICAL EXAM BP 114/76 Pulse 102 Ht 5' 6" (1.68m) Wt 194 lb 3.2 oz (88.1kg) LMP 11/05/2021 BMI 31.36 kg/(m^2). Physical Exam Constitutional: General: She is not in acute distress. Appearance: Normal appearance. She is normal weight. She is not ill-appearing, toxic-appearing or diaphoretic. HENT: Head: Normocephalic and atraumatic. Nose: Nose normal. Eyes: General: No scleral icterus. Right eye: No discharge. Left eye: No discharge. Extraocular Movements: Extraocular movements intact. Conjunctiva/sclera: Conjunctivae normal. Pupils: Pupils are equal, round, and reactive to light. Cardiovascular: Rate and Rhythm: Normal rate and regular rhythm. Pulses: Normal pulses. Heart sounds: Normal heart sounds. No murmur heard. No friction rub. No gallop. Pulmonary: Effort: No respiratory distress. Breath sounds: Normal breath sounds. No stridor. No wheezing, rhonchi or rales. Chest: Chest wall: No tenderness. Abdominal: General: Abdomen is flat. Bowel sounds are normal. There is no distension. Palpations: Abdomen is soft. There is no mass. Tenderness: There is no abdominal tenderness. There is no right CVA tenderness, left CVA tenderness, guarding or rebound. Hernia: No hernia is present. Musculoskeletal: General: Normal range of motion. Cervical back: Normal range of motion and neck supple. Skin: General: Skin is warm and dry. Neurological: General: No focal deficit present. Mental Status: She is alert and oriented to person, place, and time. Psychiatric: Mood and Affect: Mood normal. Behavior: Behavior normal. Assessment/Plan (K44.9, K21.9) Hiatal hernia with GERD without esophagitis (primary encounter diagnosis) (R10.11, R10.12) Bilateral upper abdominal pain (K58.2) Irritable bowel syndrome with both constipation and diarrhea (R14.0) Abdominal distension (gaseous) (R11.0) Nausea 1. Hiatal hernia with GERD without esophagitis - EGD 01/2022 mild reactive changes in distal esophagus, normal gastric biopsies - Has noticed some mild improvement with Protonix 40 mg BID, will plan to give her more time with this - Discussed reflux precautions again, consuming regular tomato based sauces which she mixes with sugar, frequent carbonated/caffeinated beverages 2. Bilateral upper abdominal pain - CT ABD/PEL W IVCON; Future - iv contrast (will be provided with radiology test); CT ABD/PEL -Inject, intravenously, once for 1dose.No IV access, insert saline lock prior to the beginning of sedation, infusion, injection of imaging exam. Discontinue saline lock post exam. If Pt. has a central line or IVAD, may access for administration according to line specific nursing protocol. Once exam is complete flush line and de-access according to line specific nursing protocol in the CT contrast administration guidelines link. Dispense: 1 Each; Refill: 0 - enteric contrast (will be provided with radiology test); For CT ABD/PEL W IVCON Routine order Administer, As Directed One Time Only, via Oral, Rectal, both Oral and Rectal, Enteric Tube, Stoma or Indwelling Catheter, Enteric Contrast as designated per enteric contrast guidelines Dispense: 1 Each;Refill: 0 - No relief with Bentyl, normal HIDA in past year, reports normal GES w/ [place] last year - Will plan to get CT abd for additional eval, denies chance of 3. Irritable bowel syndrome with both constipation and diarrhea - polyethylene glycol 3350 (MIRALAX) 17 gram/dose powder; Take 17 g by mouth once daily. Dissolve dose in 4 - 8 ounces of liquid and take as directed. Dispense: 595 g; Refill: 2 - Celiac negative - Start Miralax full cap daily - Drink plenty of fluids - Consider elastase testing next OV I spent a total of 25 minutes on the date of the service which included preparing to see the patient, [id number] patient care, completing clinical documentation, obtaining and/or reviewing separately obtained history, performing a medically appropriate examination, counseling and educating the pat ient/family/caregiver, ordering medications, tests, or procedures, communicating with other HCPs (not separately reported), independently interpreting results (not separately reported), communicatingresults to the patient/family/caregiver, and care coordination (not separately reported). Nicole Solano PA-C April 27, 2022 1:13 PM documented in this encounterK[facility]22 Instructions* Patient Instructions* Nicole Solano PA-C - 03/30/2022 1:29 PM EDT - Start OTC probiotic with at least 15 billion live cultures, 10+ strains - Drink around 64 oz water daily - Benefiber daily: 2 teaspoons added to 8 ounces of water up to 3 times daily. - If no relief with fiber powder, start Miralax daily/PRN to induce bowel movement Miralax generally will help produce bowel movement in 1-3 days Fill to top of white section in cap which is marked to indicate the correct dose (17 g) Stir and dissolve in any 8 ounces of non-carbonated beverage (cold, hot or room temperature) then drink If diarrhea occurs, reduce usage to every other day Recommend high protein, high fiber diet. Promotion of salivation through oral lozenges/chewing gum Drink plenty of water Avoid NSAIDs (such as Advil, Ibuprofen, Excedrin, Mobic), tobacco, alcohol, carbonated beverages, caffeine, chocolate, tomato based sauces, spicy/fatty foods, and peppermint Avoid eating less than 3 hours before bed. Elevate the head of the bed 6 inches, or invest in a wedge pillow. Laying on left side with head elevated may help alleviate reflux symptoms. Stop Prilosec, start Protonix 40 mg BID Irritable Bowel Syndrome (IBS) Irritable bowel syndrome (IBS) goes by many names. Some people call this condition "nervous stomach." Others call it "irritable bowel," "irritable colon," or "spastic colon." The condition most oftenoccurs in people in their late teens to early forties. Women suffer from IBS more often than men, and it might affect more than one family member. What is IBS? IBS is a common though uncomfortable disorder of the colon or lower bowel. While the basic cause ofIBS is unknown, researchers have found that the colon muscle in people with IBS contracts more readily than in people without IBS. Also, patients with IBS have a lower tolerance for pain. A number offactors can "trigger" IBS, including certain foods, medicines, and emotional stress. Some research has suggested that excess bacteria in the GI tract may contribute to symptoms. The good news is that IBS is not a life-threatening condition. IBS does not make a person more likely to develop other colon conditions, such as colitis, Crohn's disease, or colon cancer. Yet, IBS can be frustrating because it can come and go throughout life. What are the symptoms of IBS? Some people think of IBS as the gut's response to stress in the world. Symptoms include: Abdominal pains or cramps, usually in the lower half of the abdomen Excess gas Harder or looser bowel movements than usual Diarrhea, constipation, or an alternating pattern between the two Because these symptoms can happen over and over, a person with IBS can feel stressed or saddened byhis or her condition. These feelings often become less severe as the person gains control over IBS. Who treats IBS? If you are having symptoms and think you may have irritable bowel syndrome (IBS), you should talk to your primary care physician or other health care provider. Your doctor may treat you or may refer you to a heel brusher. A heel brusher is a physician who specializes in the diagnosis and treatment of diseases of the digestive system. These diseases include, among others: IBS, colorectal cancer, liver disease, swallowing and esophageal disorders, and pancreas disorders. In some cases of IBS, the symptoms may not respond to the medical treatment prescribed by the doctor. In these cases, the patient may be referred for psychosocial therapies. Some patients may improvewith counseling and alternative treatments such as hypnosis and biofeedback. How can my health care provider help? Your health care provider can: Make sure there is no other cause for your symptoms Order blood tests or X-rays if needed Offer appropriate medicines Suggest dietary therapies Answer any questions you have about stress and other IBS triggers Advise you about calcium supplements, if needed Offer support as you gain control over IBS How is IBS diagnosed? When you see your doctor about irritable bowel syndrome (IBS), he or she will take your medical history and perform a physical examination. Depending on your symptoms, your doctor may want to run certain tests in order to make a diagnosis, including blood tests and stool samples. These tests are usually normal, but they rule out other diseases which may mimic IBS. Depending on the symptoms and other pertinent factors in the medical history, your doctor may perform a procedure called flexible sigmoidoscopy. Flexible sigmoidoscopy is a routine outpatient procedure in which the inside of the lower large intestine is examined. Flexible sigmoidoscopies are commonly used to evaluate bowel disorders, rectal bleeding, or polyps (benign growths). During the procedure, a physician uses a sigmoidoscope (a long, flexible instrument about 1/2 inch in diameter) to view the lining of the rectum and lower portion of the colon. The sigmoidoscope is inserted through the rectum and advanced to the descending colon. Another option for examining the colon is a colonoscopy. Colonoscopy is also an outpatient procedure, similar to a sigmoidoscopy, in which the entire colon is examined with a colonoscope. If necessary during a colonoscopy, small amounts of tissue can be removed for analysis (biopsy) and polyps can be identified and removed. In many cases, colonoscopy allows accurate diagnosis and treatment without the need for a major operation. How can I gain control over IBS? Nearly all people with IBS can be helped, but no one treatment works for everyone. Usually, with a few basic changes in diet and activities, IBS will improve over time. Here are some steps you can take to help you reduce symptoms of IBS: Avoid caffeine (found in coffee, teas, and sodas). Minimize lactose-containing foods. Lactose is the sugar found in milk products. Increase fiber in your diet (found in fruits, vegetables, grains, and nuts). Drink three to four glasses of water per day. Don't smoke. Learn to relax, either by getting more exercise or by reducing stress in your life. Try limiting how much milk you consume. (Women should get 1,500 milligrams of calcium per day. If you have IBS and are concerned about your calcium intake, you can try other sources of calcium. Thesesources include broccoli, spinach, turnip greens, tofu, yogurt, sardines and salmon with bones, calcium-fortified breads, calcium supplements, and some calcium carbonate antacid tablets). Keep a record of foods you eat so you can figure out which foods bring on bouts of IBS. Common food"triggers" of IBS are red peppers, green onions, red wine, wheat, and milk. You can also ask a service order clerk for samples of healthy diets to follow. documented in this encounterK[facility]09-22-2022 History of Present illness Narrative* Nicole Solano PA-C - 03/30/2022 1:13 PM EDT CHIEF COMPLAINT: Patient presents with: Abdominal Pain: Nausea, Constipation/Diarrhea HPI: Maximus Bradley is a 46 year old female who presents for Abdominal Pain (Nausea, Constipation/Diarrhea ). Admits to bowel habit changes for several years. Bms are altered between constipated/diarrhea, no blood. Colon 11/2021 essentially unremarkable. Has not tried any alleviating measures. Has Miralax at home but has not tried yet. Abd pain is in mid-abdomen, no improvement with BM. Prilosec 40 mg BID helping minimally for reflux. Takes Advil migraine regularly. Reports GES in the past year with [facility] that was normal. Denies unintentional weight loss. Colon 11/2021 non-bleeding internal hemorrhoids, no specimens EGD 01/2022 mild reactive changes in distal esophagus, normal gastric biopsies RUQ US 12/2021 IMPRESSION: Slightly coarsened hepatic echotexture with heterogeneous echogenicity which can be seen in association with fatty infiltration. Unremarkable gallbladder. HIDA 12/2021 IMPRESSION: * No scintigraphic evidence of obstructive acute cholecystitis. * Normal gallbladder ejection fraction. * Patent CBD. Record Review: [facility] / Outside records reviewed. PAST MEDICAL HISTORY Diagnosis Date Abdominal pain, epigastric Abnormal mammogram 09/14/2016 Acute gastritis without mention of hemorrhage Anxiety Class 1 obesity due to excess calories without serious comorbidity with body mass index (BMI) of 34.0 to 34.9 in adult Depression Disability, developmental Gastroesophageal reflux disease with esophagitis without hemorrhage Hypothyroidism LLQ pain 10/07/2013 Low blood sugar 03/29/2015 Reflux esophagitis Urinary retention Pablo Arrington PAST SURGICAL HISTORY Procedure Laterality Date COLONOSCOPY 11/28/2021 repeat in 10 years DILATION & CURETTAGE DX&/THER NONOBSTETRIC EGD W/O [facility] SPEC VARICIES INJ 01/30/2022 ESOPHAGOGASTRODUODENOSCOPY TRANSORAL DIAGNOSTIC 07/04/2005 EGD FNA WITH IMAGING Right 09/26/2016 U/S FNA UOQ right breast LIG/TRNSXJ FLP TUBE ABDL/VAG APPR UNI/BI Tubal ligation Allergies: ALLERGIES Allergen Reactions Bee Pollen Anaphylaxis Adderall [Dextroamp* Itching Imitrex [Sumatripta* Other: See Comments palpitations Medications: VITAMIN D-3 50 mcg (2,000 unit) tablet TAKE 2 TABLETS (4000 UNITS) BY MOUTH ONCE DAILY fluticasone (FLONASE) 50 mcg/actuation nasal spray Use 1 Mobile in each nostril twice daily. Rinse mouth after use. omeprazole (PRILOSEC) 40 mg capsule Take 1 capsule by mouth twice daily. tamsulosin (FLOMAX) 0.4 mg Take 1 capsule by mouth daily at bedtime. rizatriptan (MAXALT) 10 mg tablet Take one pill at the onset of headache, repeat in a couple hours if not better, no more than 2 tablets a day and no more than 4 tabs a week levothyroxine (SYNTHROID) 75 mcg tablet Take 1 tablet by mouth once daily. Take on empty stomach. For Thyroid venlafaxine (EFFEXOR) 75 mg tablet Take 2 tablets by mouth twice daily. busPIRone (BUSPAR) 5 mg tablet Take 1 tablet by mouth twice daily. albuterol HFA (VENTOLIN HFA) 90 mcg/actuation inhaler Inhale 2 Puffs as instructed every 4 hours asneeded for wheezing/shortness of breath. topiramate (TOPAMAX) 25 mg capsule Take 50 mg PO in the morning and 25 mg at night. buPROPion XL (WELLBUTRIN XL) 300 mg 24 hr tablet Take 1 tablet by mouth once daily. etodolac (LODINE) 400 mg tablet TAKE 1 TABLET BY MOUTH TWICE A DAY (Patient not taking: Reported on03/30/2022) FAMILY HISTORY Adopted: Yes Problem Relation Age of Onset Cancer Father lung No Known Problems Sister No Known Problems Sister No Known Problems Brother No Known Problems Brother No Known Problems Brother other (Liver Disease) Paternal Grandmother Cancer Paternal Grandfather Lung No Known Problems Son Cancer Paternal Uncle Throat Employer And Job Title: No employer specified ([employer]) Years Of Education Completed: 12 years Marital Status: Single with 1 child Social History Tobacco Use Smoking status: Former Packs/day: 1.00 Types: Cigarettes Smokeless tobacco: Former Quit date: 04/25/2015 Vaping Use Vaping Use: Never used Substance Use Topics Alcohol use: No Comment: Occasionally Drug use: No Review of Systems: Review of Systems Constitutional: Positive for fatigue. Cardiovascular: Positive for chest pain. Gastrointestinal: Positive for abdominal distention, abdominal pain, constipation, diarrhea, nauseaand vomiting. Heartburn All other systems reviewed and are negative. Are you taking any blood thinners? No Physical Examination: BP 116/80 Pulse 98 Ht 5' 6" (1.68m) Wt 197 lb 3.2 oz (89.4kg) LMP 11/05/2021 BMI 31.84 kg/(m^2). Physical Exam Constitutional: General: She is not in acute distress. Appearance: Normal appearance. She is normal weight. She is not ill-appearing, toxic-appearing or diaphoretic. HENT: Head: Normocephalic and atraumatic. Nose: Nose normal. Eyes: General: No scleral icterus. Right eye: No discharge. Left eye: No discharge. Extraocular Movements: Extraocular movements intact. Conjunctiva/sclera: Conjunctivae normal. Pupils: Pupils are equal, round, and reactive to light. Cardiovascular: Rate and Rhythm: Normal rate and regular rhythm. Pulses: Normal pulses. Heart sounds: Normal heart sounds. No murmur heard. No friction rub. No gallop. Pulmonary: Effort: No respiratory distress. Breath sounds: Normal breath sounds. No stridor. No wheezing, rhonchi or rales. Chest: Chest wall: No tenderness. Abdominal: General: Abdomen is flat. Bowel sounds are normal. There is no distension. Palpations: Abdomen is soft. There is no mass. Tenderness: There is no abdominal tenderness. There is no right CVA tenderness, left CVA tenderness, guarding or rebound. Hernia: No hernia is present. Musculoskeletal: General: Normal range of motion. Cervical back: Normal range of motion and neck supple. Skin: General: Skin is warm and dry. Neurological: General: No focal deficit present. Mental Status: She is alert and oriented to person, place, and time. Psychiatric: Mood and Affect: Mood normal. Behavior: Behavior normal. Assessment/Plan (K44.9, K21.9) Hiatal hernia with GERD without esophagitis (primary encounter diagnosis) (R10.11, R10.12) Bilateral upper abdominal pain (K58.2) Irritable bowel syndrome with both constipation and diarrhea 1. Hiatal hernia with GERD without esophagitis - pantoprazole DR (PROTONIX) 40 mg tablet; Take 1 tablet by mouth twice daily. Dispense: 60 tablet;Refill: 2 - Stop Prilosec 40 mg daily, start Protonix 40 mg BID - Discussed gastritis precautions - Try to obtain records from [facility] last year Recommend high protein, high fiber diet. Promotion of salivation through oral lozenges/chewing gum Drink plenty of water Avoid NSAIDs (such as Advil, Ibuprofen, Excedrin, Mobic), tobacco, alcohol, carbonated beverages, caffeine, chocolate, tomato based sauces, spicy/fatty foods, and peppermint Avoid eating less than 3 hours before bed. Elevate the head of the bed 6 inches, or invest in a wedge pillow. Laying on left side with head elevated may help alleviate reflux symptoms. 2. Bilateral upper abdominal pain - Consider CT abd next OV if no improvement with initial recommendations 3. Irritable bowel syndrome with both constipation and diarrhea - dicyclomine (BENTYL) 10 mg capsule; Take 1 capsule by mouth three times daily as needed (for abdominal pain). Dispense: 30 capsule; Refill: 2 - CELIAC SCREEN WITH REFLEX; Future - Start Bentyl PRN - Check Celiac serology - Start OTC probiotic with at least 15 billion live cultures, 10+ strains - Drink around 64 oz water daily - Benefiber daily: 2 teaspoons added to 8 ounces of water up to 3 times daily. - If no relief with fiber powder, start Miralax daily/PRN to induce bowel movement Miralax generally will help produce bowel movement in 1-3 days Fill to top of white section in cap which is marked to indicate the correct dose (17 g) Stir and dissolve in any 8 ounces of non-carbonated beverage (cold, hot or room temperature) then drink If diarrhea occurs, reduce usage to every other day I spent a total of 30 minutes on the date of the service which included preparing to see the patient, [id number] patient care, completing clinical documentation, obtaining and/or reviewing separately obtained history, performing a medically appropriate examination, counseling and educating the pat ient/family/caregiver, ordering medications, tests, or procedures, communicating with other HCPs (not separately reported), independently interpreting results (not separately reported), communicatingresults to the patient/family/caregiver, and care coordination (not separately reported). Nicole Solano PA-C March 30, 2022 1:36 PM documented in this encounterK[facility]09-06-2022 Miscellaneous Notes* Telephone Encounter - Consuelo Arreguin RN - 03/14/2022 1:42 PM EDT Patient has been identified by name and date of : Yes Pharmacy phones for refill(s): Requested Prescriptions Pending Prescriptions Disp Refills fluticasone (FLONASE) 50 mcg/actuation nasal spray 16 g 1 Sig: Use 1 Mobile in each nostril twice daily. Rinse mouth after use. omeprazole (PRILOSEC) 40 mg capsule 60 capsule 5 Sig: Take 1 capsule by mouth twice daily. tamsulosin (FLOMAX) 0.4 mg 90 capsule 3 Sig: Take 1 capsule by mouth daily at bedtime. Date of last office visit in primary care: 11/02/21, NOV: not scheduled yet Last 2 Encounter Wt Readings: Date: Wt: 02/14/2022 88.1 kg (194 lb 3.2 oz) 01/03/2022 86.4 kg (190 lb 6.4 oz) Please advise. Thank you. Consuelo Arreguin RN documented in this encounterK[facility]07-13-2022 Miscellaneous Notes* Telephone Encounter - Sherine Cruz RN - 01/18/2022 9:28 AM EDT Patient has been identified by name and date of : Yes Patient phones for refill(s): Pending Prescriptions Disp Refills RIZATRIPTAN 10 MG TABLET 9 tablet 1 Sig: Take one pill at the onset of headache, repeat in a couple hours if not better, no more than 2tablets a day and no more than 4 tabs a week FARHEEN: No Date of last office visit with pcp: 12/02/2021 Future appt: none Last 2 Encounter Wt Readings: Date: Wt: 01/03/2022 86.4 kg (190 lb 6.4 oz) 12/13/2021 85.9 kg (189 lb 6.4 oz) Previous labs/tests for medication: Blood Pressure: BUN (mg/dL) Date Value 03/28/2021 8 Sodium (mmol/L) Date Value 03/28/2021 137 Last 1 Encounter BP Readings: Date: BP: 01/03/2022 124/78 Liver Function: ALT (U/L) Date Value 03/28/2021 8 AST (U/L) Date Value 03/28/2021 11 Please advise. Thank you. Sherine Cruz RN documented in this encounterK[facility]07-07-2022 History of Present illness Narrative* Francisco J Pino MD - 01/12/2022 1:10 PM EDT Associated Order(s): Large Joint Arthro/Inj: R subacromial bursa Francisco J Pino MD Department of Orthopaedics Orthopaedics [address] [facility] [address] Dept: [phone] Dept January 12, [address] Hsu for an opinion regarding right shoulder pain. My final recommendations will be communicated back to the requesting physician by way of shared Medical record or letter to requesting physician via US mail. CHIEF COMPLAINT: New and Pain of the Right Shoulder HPI Patient here today for right shoulder pain and right hand pain. Injury happened back in the winter when she slipped on the ice. She is left hand dominant. Arrives wearing brace on wrist. She did have x-ray of the shoulder on 09/19/2021 and MRI of the shoulder on 12/21/2021. X-ray of the wrist completed on 01/03/2022. ASSESSMENT: M19.011 Primary osteoarthritis of right shoulder (primary encounter diagnosis) M25.511 Acute pain of right shoulder M75.41 Impingement syndrome of right shoulder PLAN: MRI suggestive of some early arthritis. However, she is also presenting with impingement which I think is giving her the most trouble. Poppy try cortisone injection for subacromial area, may consider glenohumeral injection down the line. FOLLOW UP INSTRUCTIONS: Gamal injection if necessary Ms. Maximus Bradley was advised as to contrast therapies and/or to take analgesics/anti-inflammatories as needed and all contraindications were reviewed. OBJECTIVE: Ms. Maximus Bradley is a pleasant 46 year old in no apparent distress. Gen:LMP 11/05/2021 nl development, non obese, no deformities ENT: Normocephalic, normal hearing, moist mucosa CV: Pulses:Radial= 2+ and symmetric, capillary refill < 2 secs, no peripheral edema/varicosities Skin: no rash, bruising or lesions. Good turgor. Psych: cooperative and appropriate, alert and oriented x 3, good mood and affect. Musculoskeletal: Supple range of motion of the cervical spine without pain. Spurling signs are negative. No atrophy of the deltoid and shoulder musculature. Right shoulder is nontender to palpation over the SC joint,clavicle and AC joint. No tenderness to palpation over the posterior shoulder, positive tenderness to palpation over the anterior lateral corner of the shoulder and greater tuberosity. Nonpainful at the bicipital groove and coracoid. Mild discomfort at the anterior joint line. active range of motion is 160 degrees of forward elevation, 50 external rotation, and internal rotation to the upper lumbar spine. Passive range of motion is symmetrical, forward elevation limited by some discomfort. No laxity with anterior and posterior stress. Positive Neer and Herrera impingement signs. 4+/5 strengthwith supraspinatus, infraspinatus and subscapularis. Sensation is intact in the axillary, radial, median and ulnar nerve distribution Large Joint Arthro/Inj: R subacromial bursa Informed Consent Consent Obtained: Verbal [place] Protocol A moment to CARE was completed. SIGN IN Sign in communication not applicable due to emergent procedure. Personnel directly involved with the procedure wore the appropriate PPE. Special Equipment: N/A Patient/Surrogate Stated/Verified: Patient name, Date of , Relevant allergies and Intended procedure TIME OUT Intended patient and procedure match the source document(s). Consent documented and matches the intended procedure. Relevant labs, photos, and/or imaging studies have been reviewed. Correct side/site marked and visible. Medications required for procedure verified. No fire risk assessment and interventions applicable. No implant(s) inserted. 01/12/2022 1:33 PM The procedure site was prepped in the usual sterile fashion. Site: R subacromial bursa Medications: 6 mg betamethasone acetate-betamethasone sodium phosphate 6 mg/mL Anesthetics: 4 mL lidocaine (PF) 10 mg/mL (1 %) Outcome: Tolerated well, no immediate complications Post-injection instructions were reviewed with the patient and the patient voiced understanding of these instructions. SIGN OUT No specimen collected. All instruments, equipment, possible retained foreign bodies accounted for. Post-procedure follow-up management communicated and Plan of Care Visit completed when applicable IMAGING: IMPRESSION: Motion degraded exam. Mild tendinosis of the supraspinatus tendon. No rotator cuff tear. Glenohumeral osteoarthritis. Parking Control Officer: DIOGENES Transcribe Date/Time: Dec 21 2021 2:45P Dictated by : NITA PEREA MD This examination was interpreted and the report reviewed and electronically signed by: NITA PEREA MD on Dec 21 2021 2:51PM EST Results-Findings * * *Final Report* * * DATE OF EXAM: Dec 21 2021 2:38PM [facility] 0240 - MRI SHOULDER WO IVCON RT / PROCEDURE REASON: Acute pain of right shoulder * * * * Physician Interpretation * * * * EXAMINATION: MRI SHOULDER WO IVCON RT HISTORY: Acute pain of right shoulder TECHNIQUE: Routine non-contrast MRI of the shoulder. MQ: MRS_1A COMPARISON: None RESULT: Examination is degraded by motion artifact on most sequences. TENDONS: Rotator cuff tendons: -Supraspinatus: Intact with mild tendinosis -Infraspinatus: Intact tendon -Subscapularis: Intact tendon -Teres Minor: Intact tendon Biceps (Long head) Tendon: Intact , with normal course MUSCLES: Rotator cuff muscles: -Supraspinatus: Preserved bulk and no fatty changes. -Infraspinatus: Preserved bulk and no fatty changes. -Subscapularis: Preserved bulk and no fatty changes. -Teres Minor: Preserved bulk and no fatty changes. Other muscles: Preserved signal and bulk in the deltoid. JOINTS: Glenohumeral Joint: -Labrum: Limited assessment of the labrum on this study. No displaced tear is noted. -Cartilage: Small to moderate region of mixed high-grade and full thickness chondral loss in the inferior glenohumeral joint with subchondral sclerosis/cyst in the inferior glenoid. -Joint Fluid: No effusion . No synovitis. Acromioclavicular Joint: Normal BONES AND MARROW: No evidence of fracture or suspicious bone marrow replacing process . Reactive subcortical cystic changes at the greater tuberosity. Small inferior glenohumeral osteophytes. OTHER: Subdeltoid/Subacromial Bursa: Normal Other: No other significant findings. Localizer images: No additional findings. Supporting Subjective Information Below: Past Medical History: PAST MEDICAL HISTORY Diagnosis Date Abdominal pain, epigastric Abnormal mammogram 09/14/2016 Acute gastritis without mention of hemorrhage Anxiety Class 1 obesity due to excess calories without serious comorbidity with body mass index (BMI) of 34.0 to 34.9 in adult Depression Disability, developmental Gastroesophageal reflux disease with esophagitis without hemorrhage Hypothyroidism LLQ pain 10/07/2013 Low blood sugar 03/29/2015 Reflux esophagitis Urinary retention Pablo Arrington Past Surgical History: PAST SURGICAL HISTORY Procedure Laterality Date COLONOSCOPY 11/28/2021 repeat in 10 years DILATION & CURETTAGE DX&/THER NONOBSTETRIC ESOPHAGOGASTRODUODENOSCOPY TRANSORAL DIAGNOSTIC 07/04/2005 EGD FNA WITH IMAGING Right 09/26/2016 U/S FNA UOQ right breast LIG/TRNSXJ FLP TUBE ABDL/VAG APPR UNI/BI Tubal ligation Family History: FAMILY HISTORY Adopted: Yes Problem Relation Age of Onset Cancer Father lung No Known Problems Sister No Known Problems Sister No Known Problems Brother No Known Problems Brother No Known Problems Brother other (Liver Disease) Paternal Grandmother Cancer Paternal Grandfather Lung No Known Problems Son Cancer Paternal Uncle Throat Social History: Social History Tobacco Use Smoking status: Former Smoker Packs/day: 1.00 Types: Cigarettes Smokeless tobacco: Former User Quit date: 04/25/2015 Vaping Use Vaping Use: Never used Substance Use Topics Alcohol use: No Comment: Occasionally Drug use: No Medications: Current Outpatient Medications Medication Sig levothyroxine (SYNTHROID) 75 mcg tablet Take 1 tablet by mouth once daily. Take on empty stomach. For Thyroid venlafaxine (EFFEXOR) 75 mg tablet Take 2 tablets by mouth twice daily. celecoxib (CELEBREX) 100 mg capsule Take 1 capsule by mouth twice daily. busPIRone (BUSPAR) 5 mg tablet Take 1 tablet by mouth twice daily. albuterol HFA (VENTOLIN HFA) 90 mcg/actuation inhaler Inhale 2 Puffs as instructed every 4 hours asneeded for wheezing/shortness of breath. fluticasone (FLONASE) 50 mcg/actuation nasal spray Use 1 Mobile in each nostril twice daily. Rinse mouth after use. rizatriptan (MAXALT) 10 mg tablet Take one pill at the onset of headache, repeat in a couple hours if not better, no more than 2 tablets a day and no more than 4 tabs a week topiramate (TOPAMAX) 25 mg capsule Take 50 mg PO in the morning and 25 mg at night. omeprazole (PRILOSEC) 40 mg capsule Take 1 capsule by mouth twice daily. buPROPion XL (WELLBUTRIN XL) 300 mg 24 hr tablet Take 1 tablet by mouth once daily. tamsulosin (FLOMAX) 0.4 mg Take 1 capsule by mouth daily at bedtime. cholecalciferol, vitamin D3, 100 mcg (4,000 unit) cap Take 1 capsule by mouth once daily. (Patient not taking: Reported on 12/02/2021 ) polyethylene glycol 3350 (MIRALAX, GLYCOLAX) 17 gram/dose powder Use as directed for Miralax / Gatorade Bowel Prep Kit (Patient not taking: Reported on 12/02/2021 ) Gatorade Sports Drink Use as directed for Miralax / Gatorade Bowel Prep Kit Bisacodyl (DULCOLAX) 5 mg tab Use as directed for Miralax / Gatorade Bowel Prep Kit Blood-Glucose Meter (FREESTYLE LITE METER) monitoring kit Freestyle LITE Meter Kit - (Patient not taking: Reported on 12/06/2021 ) No current facility-administered medications for this visit. Allergies: Bee Pollen, Adderall [Dextroamphetamine-Amphetamine], and Imitrex [Sumatriptan] ROS: General (negative for fatigue, malaise, weight loss/gain) HEENT (negative for headache, earache, recent vision changes, sinus pain, sore throat) Respiratory (no recent shortness of breath, hemoptysis) CV (negative for chest tightness, palpitations) Musculoskeletal (see HPI) Psych (no depression, anxiety) REFERRING PHYSICIAN: Ms. Maximus Bradley was referred to me for consultation by the following physician. This consultation note will be sent to the following physician by either mail or electronic medical record. Leny Hsu [address] [facility] [address] Leny Hsu MD [address] [facility] [address] Francisco J Pino MD documented in this encounterK[facility]07-05-2022 Miscellaneous Notes* Telephone Encounter - Bernie Carrasco LPN - 01/10/2022 3:28 PM EDT Patient notified, verbalizes understanding of instructions. Bernie Carrasco LPN * Telephone Encounter - Lydia Gonzalez APRN.CNP - 01/10/2022 2:40 PM EDT It looks like [facility] told her to follow-up with orthopedics. I would recommend aleve, Advil or ibuprofen as instructed on the packaging. Thanks, Lydia Gonzalez APRN.CNP * Telephone Encounter - Bernie Carrasco LPN - 01/10/2022 2:32 PM EDT Patient states they didn't recommend her anything for pain in [facility]. What do you recommend patient do for pain or would you rather patient come in for appointment? Bernie Carrasco LPN * Telephone Encounter - Lydia Gonzalez APRN.CNP - 01/10/2022 1:35 PM EDT Since we did not see her for this I can not order pain medication. I would take whatever they recommended in [facility] for pain. Lydia Gonzalez APRN.BHARATHI * Telephone Encounter - Whit Shine - 01/10/2022 12:09 PM EDT Maximus Ciera Bradley is calling Leny Hsu MD today she is calling to request pain medication for the fracture in her right wrist; she was seen at [facility] on 01/03/22. She is using [facility] in [place]. Please call patient today. Patient has been identified by name and birthdate. Duration of symptoms: N/A Person calling: self Call patient at: on cell [phone] (home) [phone] (work) [phone] (cell) Was an appointment scheduled: No Closing statement: Results or non-symptom based questions: Thank you for calling [facility], your call will be returned within the next business day. Whit Joshi Pss documented in this encounterK[facility]tering [facility]06-29-2022 Miscellaneous Notes* Telephone Encounter - Maya Hernandez RN - 01/04/2022 3:44 PM EDT Pt called in and reports she was in [facility] yesterday and they found a fracture, and the provider placeda Volar splint on her. Pt is now reporting numbness to her thumb states, "I put my had down it's numb, I triy to put it in the air it's still numb.". Pt was asked if the numbness was constant and shereports it is. Pt denies the fingers being a different color or cold. Report the knuckles on the index and middle finger of that hand a slightly swollen. Called to [facility] and provider said to remove splint and come back in. documented in this encounterKettering [facility]06-28-2022 History of Present illness Narrative* Dani Burgos APRN.FONDANT COOKER - 01/03/2022 3:54 PM EDT Subjective HPI Nontoxic-appearing female presents urgent care chief complaint right wrist pain. Duration of symptoms 3 to 4 days. Associated symptoms right wrist pain decreased range of motion. Patient states she fell approximately 4 to 5 months ago injuring her right wrist. States pain did improve initially. Patient states 3 days ago she was moving something with her hand when she felt sharp pain in her wrist.Presents today for evaluation. Patient states pain inhibits her from doing her everyday tasks. Has used some OTC medications this is helped some. Denies any numbness no tingling. No decrease sensation. Past medical history prescription medication use and allergies reviewed. .Patient presents with: Pain: (RT) wrist pain rated 4, x3 days, denied accident/injury PAST MEDICAL HISTORY Diagnosis Date Abdominal pain, epigastric Abnormal mammogram 09/14/2016 Acute gastritis without mention of hemorrhage Anxiety Class 1 obesity due to excess calories without serious comorbidity with body mass index (BMI) of 34.0 to 34.9 in adult Depression Disability, developmental Gastroesophageal reflux disease with esophagitis without hemorrhage Hypothyroidism LLQ pain 10/07/2013 Low blood sugar 03/29/2015 Reflux esophagitis Urinary retention Pablo Arrington PAST SURGICAL HISTORY Procedure Laterality Date COLONOSCOPY 11/28/2021 repeat in 10 years DILATION & CURETTAGE DX&/THER NONOBSTETRIC ESOPHAGOGASTRODUODENOSCOPY TRANSORAL DIAGNOSTIC 07/04/2005 EGD FNA WITH IMAGING Right 09/26/2016 U/S FNA UOQ right breast LIG/TRNSXJ FLP TUBE ABDL/VAG APPR UNI/BI Tubal ligation ALLERGIES Bee Pollen, Adderall [Dextroamphetamine-Amphetamine], and Imitrex [Sumatriptan] MEDICATIONS levothyroxine (SYNTHROID) 75 mcg tablet Take 1 tablet by mouth once daily. Take on empty stomach. For Thyroid Bisacodyl (DULCOLAX) 5 mg tab Use as directed for Miralax / Gatorade Bowel Prep Kit celecoxib (CELEBREX) 100 mg capsule Take 1 capsule by mouth twice daily. busPIRone (BUSPAR) 5 mg tablet Take 1 tablet by mouth twice daily. albuterol HFA (VENTOLIN HFA) 90 mcg/actuation inhaler Inhale 2 Puffs as instructed every 4 hours asneeded for wheezing/shortness of breath. fluticasone (FLONASE) 50 mcg/actuation nasal spray Use 1 Mobile in each nostril twice daily. Rinse mouth after use. rizatriptan (MAXALT) 10 mg tablet Take one pill at the onset of headache, repeat in a couple hours if not better, no more than 2 tablets a day and no more than 4 tabs a week buPROPion XL (WELLBUTRIN XL) 300 mg 24 hr tablet Take 1 tablet by mouth once daily. tamsulosin (FLOMAX) 0.4 mg Take 1 capsule by mouth daily at bedtime. cholecalciferol, vitamin D3, 100 mcg (4,000 unit) cap Take 1 capsule by mouth once daily. polyethylene glycol 3350 (MIRALAX, GLYCOLAX) 17 gram/dose powder Use as directed for Miralax / Gatorade Bowel Prep Kit Gatorade Sports Drink Use as directed for Miralax / Gatorade Bowel Prep Kit venlafaxine (EFFEXOR) 75 mg tablet Take 2 tablets by mouth twice daily. topiramate (TOPAMAX) 25 mg capsule Take 50 mg PO in the morning and 25 mg at night. omeprazole (PRILOSEC) 40 mg capsule Take 1 capsule by mouth twice daily. Blood-Glucose Meter (FREESTYLE LITE METER) monitoring kit Freestyle LITE Meter Kit - FAMILY HISTORY Adopted: Yes Problem Relation Age of Onset Cancer Father lung No Known Problems Sister No Known Problems Sister No Known Problems Brother No Known Problems Brother No Known Problems Brother other (Liver Disease) Paternal Grandmother Cancer Paternal Grandfather Lung No Known Problems Son Cancer Paternal Uncle Throat Social History Tobacco Use Smoking status: Former Smoker Packs/day: 1.00 Types: Cigarettes Smokeless tobacco: Former User Quit date: 04/25/2015 Vaping Use Vaping Use: Never used Substance Use Topics Alcohol use: No Comment: Occasionally Drug use: No BP 124/78 Pulse 98 Temp 37.1 C (98.8 F) Resp 16 Wt 86.4 kg (190 lb 6.4 oz) LMP 11/05/2021(Approximate) SpO2 99% BMI 30.73 kg/m Review of Systems Constitutional: Negative for chills, fever and malaise/fatigue. HENT: Negative for congestion, ear discharge, ear pain, sinus pain and sore throat. Eyes: Negative for blurred vision, pain, discharge and redness. Respiratory: Negative for cough, hemoptysis, sputum production, shortness of breath, wheezing and stridor. Cardiovascular: Negative for chest pain. Gastrointestinal: Negative for abdominal pain, diarrhea, nausea and vomiting. Musculoskeletal: Positive for joint pain. Negative for back pain, falls, myalgias and neck pain. Skin: Negative for itching and rash. Neurological: Negative for dizziness and headaches. Objective Physical Exam Constitutional: General: She is not in acute distress. Appearance: She is not diaphoretic. HENT: Head: Normocephalic. Mouth/Throat: Mouth: Mucous membranes are moist. Pharynx: Oropharynx is clear. No oropharyngeal exudate or posterior oropharyngeal erythema. Eyes: Conjunctiva/sclera: Conjunctivae normal. Pupils: Pupils are equal, round, and reactive to light. Cardiovascular: Rate and Rhythm: Normal rate and regular rhythm. Heart sounds: Normal heart sounds. Pulmonary: Effort: Pulmonary effort is normal. No tachypnea, accessory muscle usage or respiratory distress. Breath sounds: Normal breath sounds. No stridor. Abdominal: Palpations: Abdomen is soft. Tenderness: There is no abdominal tenderness. Musculoskeletal: Right forearm: Normal. Right wrist: Tenderness and bony tenderness present. No swelling, deformity, effusion, lacerations or snuff box tenderness. Normal range of motion. Normal pulse. Right hand: Tenderness present. No swelling, deformity, lacerations or bony tenderness. Normal range of motion. Normal capillary refill. Normal pulse. Cervical back: Normal range of motion and neck supple. No rigidity or tenderness. Lymphadenopathy: Cervical: No cervical adenopathy. Skin: General: Skin is warm and dry. Neurological: Mental Status: She is alert and oriented to person, place, and time. Patient placed in a volar splint. Splint comprised of 4 inch Ortho-Glass. Forearm neutral position.Risks 10 degrees extension. Neurovascular check pre and post splint application no abnormal findings. ASSESSMENT/PLAN: 1. Right wrist pain - ICD9: 719.43, ICD10: M25.531 - XR WRIST INJURY 4V PA/LAT/OBL/SCAPH RIGHT Findings most compatible with dorsal chip fracture, a finding most often seen in setting of a triquetral fracture. Patient placed in a volar splint. Will wear splint until following up with orthopedics. Red flags for prompt reevaluation discussed. Patient was educated on supportive therapies. Patient will follow up with primary care provider as needed. Patient was instructed to immediately proceed to emergency room for any new, worsening, or symptoms lasting longer than anticipated. The patient's clinical presentation is otherwise unremarkable at this time. Based on exam and clinical finding, the patient isstable for discharge. Plan of care was discussed with patient. Patient verbalizes understanding andagrees to plan of care. This note was generated using [employer] software. It may contain errors in wording, punctuation, or spelling. Dani Burgos APRN.BHARATHI documented in this encounterKettering Health [facility]06-16-2022 Miscellaneous Notes* Telephone Encounter - Sis Fishman - 12/22/2021 1:34 PM EDT Done. Thank you, Sis Fishman * Telephone Encounter - Jenny Pimentel MA - 12/21/2021 4:07 PM EDT Please assist patient with scheduling ORTHO. Jenny Pimentel MA * Telephone Encounter - Leny Hsu MD - 12/21/2021 3:53 PM EDT Referral order placed as requested. * Telephone Encounter - Sandhya Babinlexa OCDY - 12/21/2021 3:17 PM EDT Spoke with pt and results listed below were given. Pt would like to have a consult with Ortho. Onceorders are done, please contact pt to help schedule apt. Leny Hsu MD MRI of the right shoulder does show some changes related to motion during exam. She does not have rotator cuff tear, but does have some mild inflammation of one of the rotator cuff tendons. Arthritisalso noted. If pain is persistent with current regimen, would refer to ortho for further evaluation and possibly steroid injection Sandhya Bryan Mac CODY documented in this encounterKettering [facility]06-15-2022 History of Present illness Narrative* RT Prabhjot(R) - 12/21/2021 2:20 PM EDT Radiology Service Progress Note PATIENT NAME: Maximus Bradley DATE OF SERVICE: December 21, 2021 TIME: 2:28 PM PATIENT IDENTITY VERIFICATION COMPLETED USING TWO (2) IDENTIFIERS: Name and Date of confirmedby patient verbally. FALL SCREENING: Has the patient had 2 falls in the last year or 1 fall with injury or currently using an Ambulatory Assistive Device (Walker, Cane, Wheelchair, Crutches, etc.)? No PATIENT GENDER DATA: Female. status: : No status: NO. PATIENT RELEVANT IMPLANT DATA REVIEWED: Yes RADIOLOGY DEPARTMENT: MR; Exam(s) Completed: Upper MSK: Shoulder, right PERIPHERAL IV DATA: Not applicable SIGNED BY: RT Prabhjot(R) December 21, 2021 2:28 PM documented in this encounterK[facility]22 History of Present illness Narrative* Kirk Cast MD - 12/13/2021 2:39 PM EDT HISTORY AND PHYSICAL Maximus N Kirk 1975 REFERRING PHYSICIAN: Kirk Cast MD CHIEF COMPLAINT: Follow Up (epigastric pain) HPI: The patient is a 46 year old female with a complaint of Epigastric abdominal pain. She has been suffering this for actually many years. She saw Dr. Molina in 2019. At that point she had had an upper endoscopy which showed a small hiatal hernia mild duodenitis and gastritis and some mild distal esophagitis. She also was noted to have what appeared to be food retained within her stomach. A subsequent nuclear medicine gastric emptying study was obtained which was normal. Prior to this she hashad an evaluation by Dr. Britton in 2017 once again no abnormal findings were found. She has had a gallbladder ultrasound in the past which also has been unremarkable showing no stones or pericholecyst ic fluid or sludge. Her recent HIDA scan with ejection fraction showed an ejection fraction of 71%. PAST MEDICAL HISTORY Diagnosis Date Abdominal pain, epigastric Abnormal mammogram 09/14/2016 Acute gastritis without mention of hemorrhage Anxiety Class 1 obesity due to excess calories without serious comorbidity with body mass index (BMI) of 34.0 to 34.9 in adult Depression Disability, developmental Gastroesophageal reflux disease with esophagitis without hemorrhage Hypothyroidism LLQ pain 10/07/2013 Low blood sugar 03/29/2015 Reflux esophagitis Urinary retention Pablorome Arrington PAST SURGICAL HISTORY Procedure Laterality Date COLONOSCOPY 11/28/2021 repeat in 10 years DILATION & CURETTAGE DX&/THER NONOBSTETRIC ESOPHAGOGASTRODUODENOSCOPY TRANSORAL DIAGNOSTIC 07/04/2005 EGD FNA WITH IMAGING Right 09/26/2016 U/S FNA UOQ right breast LIG/TRNSXJ FLP TUBE ABDL/VAG APPR UNI/BI Tubal ligation Current Outpatient Medications Medication Sig levothyroxine (SYNTHROID) 75 mcg tablet Take 1 tablet by mouth once daily. Take on empty stomach. For Thyroid Gatorade Sports Drink Use as directed for Miralax / Gatorade Bowel Prep Kit Bisacodyl (DULCOLAX) 5 mg tab Use as directed for Miralax / Gatorade Bowel Prep Kit venlafaxine (EFFEXOR) 75 mg tablet Take 2 tablets by mouth twice daily. celecoxib (CELEBREX) 100 mg capsule Take 1 capsule by mouth twice daily. busPIRone (BUSPAR) 5 mg tablet Take 1 tablet by mouth twice daily. albuterol HFA (VENTOLIN HFA) 90 mcg/actuation inhaler Inhale 2 Puffs as instructed every 4 hours asneeded for wheezing/shortness of breath. fluticasone (FLONASE) 50 mcg/actuation nasal spray Use 1 Mobile in each nostril twice daily. Rinse mouth after use. rizatriptan (MAXALT) 10 mg tablet Take one pill at the onset of headache, repeat in a couple hours if not better, no more than 2 tablets a day and no more than 4 tabs a week topiramate (TOPAMAX) 25 mg capsule Take 50 mg PO in the morning and 25 mg at night. buPROPion XL (WELLBUTRIN XL) 300 mg 24 hr tablet Take 1 tablet by mouth once daily. tamsulosin (FLOMAX) 0.4 mg Take 1 capsule by mouth daily at bedtime. cholecalciferol, vitamin D3, 100 mcg (4,000 unit) cap Take 1 capsule by mouth once daily. (Patient not taking: Reported on 12/02/2021 ) polyethylene glycol 3350 (MIRALAX, GLYCOLAX) 17 gram/dose powder Use as directed for Miralax / Gatorade Bowel Prep Kit (Patient not taking: Reported on 12/02/2021 ) omeprazole (PRILOSEC) 40 mg capsule Take 1 capsule by mouth twice daily. Blood-Glucose Meter (FREESTYLE LITE METER) monitoring kit Freestyle LITE Meter Kit - (Patient not taking: Reported on 12/06/2021 ) No current facility-administered medications for this visit. ALLERGIES: Bee Pollen, Adderall [Dextroamphetamine-Amphetamine], and Imitrex [Sumatriptan] PERSONAL HISTORY: Social History Tobacco Use Smoking status: Former Smoker Packs/day: 1.00 Types: Cigarettes Smokeless tobacco: Former User Quit date: 04/25/2015 Vaping Use Vaping Use: Never used Substance Use Topics Alcohol use: No Comment: Occasionally Drug use: No FAMILY HISTORY: FAMILY HISTORY Adopted: Yes Problem Relation Age of Onset Cancer Father lung No Known Problems Sister No Known Problems Sister No Known Problems Brother No Known Problems Brother No Known Problems Brother other (Liver Disease) Paternal Grandmother Cancer Paternal Grandfather Lung No Known Problems Son Cancer Paternal Uncle Throat REVIEW OF SYMPTOMS: The review of systems data was entered by the nurse and reviewed by me There are no exam notes on file for this visit. PHYSICAL EXAMINATION: General: The patient is 46 year old female, well nourished, well hydrated in no acute distress. Thepatient is oriented to time, place, and person. VITALS: Blood pressure 130/86, pulse 75, temperature 36.9 C (98.5 F), height 167.6 cm (5' 6"), weight 85.9 kg (189 lb 6.4 oz), last menstrual period 11/05/2021, SpO2 95 %. Body mass index is 30.57 kg/m . HEENT: Normal cephalic, ataumatic, pupils are equally round, sclera are anicteric, mucous membranesare moist, oropharynx is clear. Neck has no masses, asymmetry or lymphadenopathy. Thyroid is unremarkable. Respiratory: Clear to auscultation and percussion. Normal respiratory excursion and pattern. Cardiac: Examination is regular rate and rhythm. Abdominal exam: Soft, nontender, with no palpable masses. No hepatosplenomegaly. No palpable hernias. Rectal exam: exam deferred Extremities: no clubbing, cyanosis or edema. No adenopathy. Other: LABORATORY VALUES: As Noted RADIOLOGIC STUDIES: As Noted Assessment IMPRESSION: Epigastric pain (primary encounter diagnosis) Nausea PLAN: I plan to perform upper endoscopy. We discussed the risks and benefits of the planned endoscopy. I have informed the patient that complications can occur including failure to complete the endoscopy and perforation. The patient had the opportunity to ask questions concerning the planned endoscopy. My staff has also explained the procedure to the patient in understandable terms and has given the patient printed material concerning the procedure. The patient freely consents to surgery. In addition I am going to order a gallbladder ultrasound on her to see if there is any signs of sludge or stones Diagnoses: (R10.13) Epigastric pain (primary encounter diagnosis) (R11.0) Nausea My findings have been communicated to Dr. Leny Hsu MD via shared medical record. Thisnote will be forwarded to Dr. Leny Hsu MD. Return to Clinic: The patient is instructed to follow-up with me 1 week post operatively. Kirk Cast III, MD documented in this encounterCleveland [id number] History of Present illness Narrative* Inés Elizalde, RT(R) - 12/09/2021 8:00 AM EDT RADIOLOGY SERVICE PROGRESS NOTE SERVICE DATE: 12/09/2021 SERVICE TIME: 8:05 AM PATIENT IDENTITY VERIFICATION COMPLETED USING TWO (2) STANDARD IDENTIFIERS: Name and Date of confirmed by patient verbally FALL SCREENING: Has the patient had 2 falls in the last year or 1 fall with injury or currently using an Ambulatory Assistive Device (Walker, Cane, Wheelchair, Crutches, etc.)? No PATIENT GENDER DATA: .female : No status: No ALLERGIES: Reviewed and unchanged MEDICATIONS REVIEWED: No PATIENT RELEVANT IMPLANT DATA REVIEWED: Not Applicable CREATININE: Creatinine Date Value Ref Range Status 03/28/2021 0.77 0.58 - 0.96 mg/dL Final 12/10/2020 0.86 0.58 - 0.96 mg/dL Final 03/30/2020 0.97 (H) 0.58 - 0.96 mg/dL Final eGFR-All Other Races Date Value Ref Range Status 03/28/2021 >60 . Final Comment: eGFR (Estimated GFR) Units of measure: mL/min/1.73 meters squared eGFR is derived from the reexpressed MDRD Study equation using the following parameters: serum creatinine, age, gender and race. The creatinine assay has been calibrated to be traceable to IDMS. An eGFR <60 mL/min/1.73m2 for >3 months is consistent with chronic kidney disease. Refer to KDOQI guidelines for clinical interpretation. In patients with unstable renal function, e.g. those with acute kidney injury, the eGFR may not accurately reflect actual GFR. eGFR- Date Value Ref Range Status 03/28/2021 >60 Final P.O.C.T. RESULTS: N/A December 09, [address] PERFORMED: No IV SITE: Ambulatory: A peripheral IV was started in the Right antecubital site with a Angio cath: 24 gauge. POST EXAM PIV STATUS: Discontinued PROCEDURE TYPE: NM INJECT: Hepatobiliary with Gallbladder EF. 5.5 mCi Tc99m CHOLETEC. 8ouunces Ensure Plus given PO at 09:19 for EF. ADMINISTRATION TIME: 08:15 PATIENT DISCHARGED TO: Ambulatory patient, left [place] department area. A Diagnostic radioactive procedure has taken place, with no further precautions necessary other than routine body substance precautions. More information regarding radiation safety can be found usingthis link: [email or web address] SIGNATURE: RT Bay(R) PATIENT NAME: Maximus Bradley DATE: December 09, 2021 TIME: 8:35 AM PAGER/CONTACT #: documented in this encounterK[facility]05-31-2022 History of Present illness Narrative* Kirk Cast MD - 12/06/2021 2:10 PM EDT HISTORY AND PHYSICAL Maximus Coten 1975 REFERRING PHYSICIAN: Self CHIEF COMPLAINT: Established Patient (f/u colonoscopy and abdomen pain) HPI: The patient is a 46 year old female with a complaint of Epigastric abdominal pain. She has been suffering this for actually many years. She saw Dr. Molina in 2019. At that point she had had an upper endoscopy which showed a small hiatal hernia mild duodenitis and gastritis and some mild distal esophagitis. She also was noted to have what appeared to be food retained within her stomach. A subsequent nuclear medicine gastric emptying study was obtained which was normal. Prior to this she hashad an evaluation by Dr. Britton in 2016 once again no abnormal findings were found. She has had a gallbladder ultrasound in the past which also has been unremarkable showing no stones or pericholecyst ic fluid or sludge. However she has never had a HIDA scan with ejection fraction.. PAST MEDICAL HISTORY Diagnosis Date Abdominal pain, epigastric Abnormal mammogram 09/14/2016 Acute gastritis without mention of hemorrhage Anxiety Class 1 obesity due to excess calories without serious comorbidity with body mass index (BMI) of 34.0 to 34.9 in adult Depression Disability, developmental Gastroesophageal reflux disease with esophagitis without hemorrhage Hypothyroidism LLQ pain 10/07/2013 Low blood sugar 03/29/2015 Reflux esophagitis Urinary retention Pablo Arrington PAST SURGICAL HISTORY Procedure Laterality Date COLONOSCOPY 11/28/2021 repeat in 10 years DILATION & CURETTAGE DX&/THER NONOBSTETRIC ESOPHAGOGASTRODUODENOSCOPY TRANSORAL DIAGNOSTIC 07/04/2005 EGD FNA WITH IMAGING Right 09/26/2016 U/S FNA UOQ right breast LIG/TRNSXJ FLP TUBE ABDL/VAG APPR UNI/BI Tubal ligation Current Outpatient Medications Medication Sig levothyroxine (SYNTHROID) 75 mcg tablet Take 1 tablet by mouth once daily. Take on empty stomach. For Thyroid Gatorade Sports Drink Use as directed for Miralax / Gatorade Bowel Prep Kit Bisacodyl (DULCOLAX) 5 mg tab Use as directed for Miralax / Gatorade Bowel Prep Kit venlafaxine (EFFEXOR) 75 mg tablet Take 2 tablets by mouth twice daily. celecoxib (CELEBREX) 100 mg capsule Take 1 capsule by mouth twice daily. busPIRone (BUSPAR) 5 mg tablet Take 1 tablet by mouth twice daily. albuterol HFA (VENTOLIN HFA) 90 mcg/actuation inhaler Inhale 2 Puffs as instructed every 4 hours asneeded for wheezing/shortness of breath. fluticasone (FLONASE) 50 mcg/actuation nasal spray Use 1 Mobile in each nostril twice daily. Rinse mouth after use. rizatriptan (MAXALT) 10 mg tablet Take one pill at the onset of headache, repeat in a couple hours if not better, no more than 2 tablets a day and no more than 4 tabs a week topiramate (TOPAMAX) 25 mg capsule Take 50 mg PO in the morning and 25 mg at night. omeprazole (PRILOSEC) 40 mg capsule Take 1 capsule by mouth twice daily. buPROPion XL (WELLBUTRIN XL) 300 mg 24 hr tablet Take 1 tablet by mouth once daily. tamsulosin (FLOMAX) 0.4 mg Take 1 capsule by mouth daily at bedtime. cholecalciferol, vitamin D3, 100 mcg (4,000 unit) cap Take 1 capsule by mouth once daily. (Patient not taking: Reported on 12/02/2021 ) polyethylene glycol 3350 (MIRALAX, GLYCOLAX) 17 gram/dose powder Use as directed for Miralax / Gatorade Bowel Prep Kit (Patient not taking: Reported on 12/02/2021 ) Blood-Glucose Meter (FREESTYLE LITE METER) monitoring kit Freestyle LITE Meter Kit - (Patient not taking: Reported on 12/06/2021 ) No current facility-administered medications for this visit. ALLERGIES: Bee Pollen, Adderall [Dextroamphetamine-Amphetamine], and Imitrex [Sumatriptan] PERSONAL HISTORY: Social History Tobacco Use Smoking status: Former Smoker Packs/day: 1.00 Types: Cigarettes Smokeless tobacco: Former User Quit date: 04/25/2015 Vaping Use Vaping Use: Never used Substance Use Topics Alcohol use: No Comment: Occasionally Drug use: No FAMILY HISTORY: FAMILY HISTORY Adopted: Yes Problem Relation Age of Onset Cancer Father lung No Known Problems Sister No Known Problems Sister No Known Problems Brother No Known Problems Brother No Known Problems Brother other (Liver Disease) Paternal Grandmother Cancer Paternal Grandfather Lung No Known Problems Son Cancer Paternal Uncle Throat REVIEW OF SYMPTOMS: The review of systems data was entered by the nurse and reviewed by me There are no exam notes on file for this visit. PHYSICAL EXAMINATION: General: The patient is 46 year old female, well nourished, well hydrated in no acute distress. Thepatient is oriented to time, place, and person. VITALS: Blood pressure 110/82, pulse 99, temperature 37.2 C (98.9 F), temperature source Temporal, resp. rate 16, height 167.6 cm (5' 6"), weight 85.3 kg (188 lb), last menstrual period 11/05/2021, SpO2 95 %. HEENT: Normal cephalic, ataumatic, pupils are equally round, sclera are anicteric, mucous membranesare moist, oropharynx is clear. Neck has no masses, asymmetry or lymphadenopathy. Thyroid is unremarkable. Respiratory: Clear to auscultation and percussion. Normal respiratory excursion and pattern. Cardiac: Examination is regular rate and rhythm. Abdominal exam: Soft, nontender, with no palpable masses. No hepatosplenomegaly. No palpable hernias. Rectal exam: exam deferred Extremities: no clubbing, cyanosis or edema. No adenopathy. Other: LABORATORY VALUES: As Noted RADIOLOGIC STUDIES: As Noted Assessment IMPRESSION: Epigastric pain (primary encounter diagnosis) Nausea PLAN: I am going to obtain a HIDA scan with ejection fraction on her. If this is negative then I will repeat an upper endoscopy on her. In addition we may actually need to order a repeat gallbladder ultrasound to see if it shows any signs of sludge. Diagnoses: (R10.13) Epigastric pain (primary encounter diagnosis) (R11.0) Nausea My findings have been communicated to Dr. Leny Hsu MD via shared medical record. Thisnote will be forwarded to Dr. Leny Hsu MD. Return to Clinic: The patient is instructed to follow-up with me after the testing has been completed. Kirk Cast III, MD documented in this encounterK[facility]05-27-2022 Miscellaneous Notes* Telephone Encounter - Zoey Fishman LPN - 12/02/2021 2:08 PM EDT Appointment scheduled for 12/06/[address] Cast. Patient advised to go to ER if pain increases. Patient verbalized understanding. * Telephone Encounter - Zoey Fishman LPN - 12/02/2021 1:07 PM EDT Patient had colonoscopy done by Dr Cast on 11/28/21, states has had stomach pain around naval and lower abdomen since and feeling slightly nauseated. Patient stated was told had small hernia by another provider, and was told to small to do anything. Pain is about a "4". documented in this encounterK[facility]05-27-2022 Miscellaneous Notes* Telephone Encounter - Shraddha Abdalla - 12/02/2021 1:01 PM EDT Patient returned call and scheduled with Dr. Hsu for 3:00 PM today. Shraddha Abdalla * Telephone Encounter - Bernie Carrasco LPN - 12/02/2021 11:47 AM EDT Patient telephoned. VM not set up yet. Bernie Carrasco LPN * Telephone Encounter - Lydia Gonzalez APRN.CNP - 12/02/2021 11:17 AM EDT Recommend follow-up to discuss continued pain. Lydia Gonzalez APRN.BHARATHI * Telephone Encounter - Bernie Carrasco LPN - 12/02/2021 11:14 AM EDT Rehab discharge summary placed in [employer] inbox. Bernie Carrasco LPN * Telephone Encounter - Lydia Gonzalez APRN.CNP - 12/02/2021 10:50 AM EDT I have not received anything yet Lydia Gonzalez APRN.BHARATHI * Telephone Encounter - Consuelo Arreguin RN - 12/02/2021 8:48 AM EDT Patient calling to update Lydia Gonzalez's office that the office should be receiving a fax from [facility] regarding orders for patient. Thank you. documented in this encounterK[facility]05-23-2022 Nurse Note* Jannette Marrero RN - 11/28/2021 9:51 AM EDT Arrived in phase II via cart. Left lateral position. Sedated, but responds to verbal stimuli. Colornormal; skin warm and dry. Respirations wnl and unlabored. Abdomen soft and with + bowel sounds in quads X 4. Patient resting comfortably. Family at bedside. Dr. Cast at bedside to review procedure and recommendations. Jannette Marrero RN documented in this encounterK[facility]05-23-2022 History and physical note * Kirk Cast MD - 11/28/2021 9:15 AM EDT Patient presents with: Follow Up: right shoulder pain SUBJECTIVE: This is a 46 year old that is here today for Above Complaints. Effexor increases at last office visit from one pill twice a day to two pills twice a day. Patient has been taking two in the morning and one in the evening. Feels like this is helping. Taking Busparand Wellbutrin as prescribed. Sleeping good and denies SI or HI. Doing physical therapy through [facility]. Does not thinks the meloxicam helps her pain much. No using any OTC products. Decreased her candesartan since last visit. Still with intermittent dizziness. Denies presyncope, syncope or palpitations Feeling nervous, anxious, or on edge 1 Several days Not being able to stop or control worrying 3 Nearly every day Worrying too much about different things 3 Nearly every day Trouble relaxing 1 Several days Being so restless that it's hard to sit still 0 Not at all sure Being easily annoyed or irritable 1 Several days Feeling afraid as if something awful might happen 3 Nearly every day CRISTINO-7 Anxiety Score 12 If you checked off any problems, how difficult have these problems made it for you to do your work,take care of things at home, or get along with other people? Not difficult at all Little or no interest or pleasure in doing things 0 Not at all Feeling down, depressed, or hopeless 1 Several days Trouble falling or staying asleep, or sleeping too much 3 Nearly every day Feeling tired or having little energy 3 Nearly every day Poor appetite or overeating 3 Nearly every day Feeling bad about yourself- or that you are a failure or having let yourself or your family down 1 Several days Trouble concentrating on things, such as reading the newpaper or watching television 0 Not at all Moving or speaking so slowly that other people could have noticed? Or the opposite- being so fidgety or restless that you have been moving around a lot more than usual 0 Not at all Thoughts that you would be better off or of hurting yourself in some way 1 Several days PHQ9P Score 11 If you checked off any problems, how difficult have these problems made it for you to do your work,take care of things at home, or get along with other people? Somewhat difficult PAST MEDICAL HISTORY PAST MEDICAL HISTORY Diagnosis Date Abdominal pain, epigastric Abnormal mammogram 09/14/2016 Acute gastritis without mention of hemorrhage Anxiety Class 1 obesity due to excess calories without serious comorbidity with body mass index (BMI) of 34.0 to 34.9 in adult Depression Disability, developmental Essential hypertension Gastroesophageal reflux disease with esophagitis without hemorrhage Hypothyroidism LLQ pain 10/07/2013 Low blood sugar 03/29/2015 Reflux esophagitis Urinary retention Pablo Arrington ALLERGIES Bee Pollen, Adderall [Dextroamphetamine-Amphetamine], and Imitrex [Sumatriptan] MEDICATIONS CURRENT MEDICATIONS Current Outpatient Medications Medication Sig meloxicam (MOBIC) 15 mg tablet Take 1 tablet by mouth once daily. With food. busPIRone (BUSPAR) 5 mg tablet Take 1 tablet by mouth twice daily. venlafaxine (EFFEXOR) 75 mg tablet Take 2 tablets by mouth twice daily. candesartan (ATACAND) 4 mg tablet Take 1 tablet by mouth once daily. albuterol HFA (VENTOLIN HFA) 90 mcg/actuation inhaler Inhale 2 Puffs as instructed every 4 hours asneeded for wheezing/shortness of breath. fluticasone (FLONASE) 50 mcg/actuation nasal spray Use 1 Mobile in each nostril twice daily. Rinse mouth after use. rizatriptan (MAXALT) 10 mg tablet Take one pill at the onset of headache, repeat in a couple hours if not better, no more than 2 tablets a day and no more than 4 tabs a week topiramate (TOPAMAX) 25 mg capsule Take 50 mg PO in the morning and 25 mg at night. omeprazole (PRILOSEC) 40 mg capsule Take 1 capsule by mouth twice daily. levothyroxine (SYNTHROID) 75 mcg tablet Take 1 tablet by mouth once daily. Take on empty stomach. For Thyroid buPROPion XL (WELLBUTRIN XL) 300 mg 24 hr tablet Take 1 tablet by mouth once daily. tamsulosin (FLOMAX) 0.4 mg Take 1 capsule by mouth daily at bedtime. cholecalciferol, vitamin D3, 100 mcg (4,000 unit) cap Take 1 capsule by mouth once daily. Blood-Glucose Meter (FREESTYLE LITE METER) monitoring kit Freestyle LITE Meter Kit - (Patient not taking: Reported on 10/19/2021 ) No current facility-administered medications for this visit. Medications and allergies reviewed by this provider. SOCIAL HISTORY SOCIAL HISTORY Social History Tobacco Use Smoking status: Former Smoker Packs/day: 1.00 Types: Cigarettes Smokeless tobacco: Former User Quit date: 04/25/2015 Vaping Use Vaping Use: Never used Substance Use Topics Alcohol use: No Comment: Occasionally Drug use: No REVIEW OF SYSTEMS All other reviewed and negative other than HPI. OBJECTIVE: BP 92/60 Pulse 96 Wt 86.8 kg (191 lb 6.4 oz) LMP 07/31/2021 SpO2 96% BMI 32.85 kg/m . Vital signs reviewed by this provider. APPEARANCE Well appearing, alert, in no acute distress, well-hydrated, well nourished. EYES conjunctiva and sclera normal. HEART RRR with normal S1 and S2, no murmurs, no gallops, no JVD appreciated LUNG clear to auscultation. No wheezes, rhonchi or rales SKIN Skin color, texture, turgor normal, no suspicious rashes or lesions to exposed skin PSYCH: Posture and motor behavior: normal posture and motor behavior Dress, grooming, personal hygiene: normal dress and grooming Facial expression: good eye contact Speech: normal speech Mood: cheerful Coherency and relevance of thought: normal thought processes Memory: normal memory COVID-19 VACCINE(1) Never done COLORECTAL CANCER SCREENING Never done MAMMOGRAM due on 08/09/2022 ANNUAL PCP TEAM CHRONIC DISEASE VISIT due on 10/19/2022 BP CONTROLLED (<130/80) due on 10/19/2022 DIABETES SCREEN due on 03/28/2024 PAP TESTING due on 07/28/2025 HPV TESTING due on 07/28/2025 LIPID SCREEN due on 09/16/2025 DTAP,TDAP,TD(2 - Td or Tdap) due on 10/01/2029 INFLUENZA Completed HEPATITIS C SCREENING Completed HIV SCREENING Completed MENINGOCOCCAL CONJUGATE Aged Out ASSESSMENT/PLAN: 1. Moderate episode of recurrent major depressive disorder (HCC) - ICD9: 296.32, ICD10: F33.1 (primary diagnosis) - she reports feeling improved - VENLAFAXINE 75 MG TABLET - counseling encouraged - follow-up as needed 2. Screening for colon cancer - ICD9: V76.51, ICD10: Z12.11 - POLYETHYLENE GLYCOL 3350 17 GRAM/DOSE ORAL POWDER - GATORADE SPORTS DRINK - BISACODYL 5 MG TABLET - COLONOSCOPY SCREENING 3. Screening for malignant neoplasm of the rectum - ICD9: V76.41, ICD10: Z12.12 - POLYETHYLENE GLYCOL 3350 17 GRAM/DOSE ORAL POWDER - GATORADE SPORTS DRINK - BISACODYL 5 MG TABLET - COLONOSCOPY SCREENING 4. Dizziness - ICD9: 780.4, ICD10: R42 - BP low - stop candesartan - stay well hydrated - follow-up in 2 weeks for nurse visit for BP check 5. Acute pain of right shoulder - ICD9: 719.41, ICD10: M25.511 - continue with physical thearpy - CELECOXIB 100 MG CAPSULE - follow-up if symptoms persist Lydia Gonzalez APRN.FONDANT COOKER UPDATED HISTORY AND PHYSICAL EXAMINATION SERVICE DATE: 11/28/2021 SERVICE TIME: 9:26 AM PHYSICAL EXAM MUST BE COMPLETED ON ADMISSION The History and Physical (completed in the past 30 days) has been reviewed and the patient has beenexamined. The contents accurately reflect the patient's condition with the following additions or revisions since the H&P was completed. Examination indicates no changes. This H&P can be found in the attached. SIGNATURE: Kirk Cast III, MD PATIENT NAME: Maximus Bradley DATE: November 28, 2021 TIME: 9:26 AM documented in this encounterK[facility] Miscellaneous Notes* Telephone Encounter - Bernie Carrasco LPN - 11/02/2021 3:29 PM EDT Patient notified. Voiced understanding. Bernie Carrasco LPN * Telephone Encounter - Lydia Gonzalez APRN.CNP - 11/02/2021 3:00 PM EDT BP improved. She should remain of the candesartan. Lydia Gonzalez APRN.CNP * Telephone Encounter - Maryam Dover LPN - 11/02/2021 2:59 PM EDT Manual Readin/78 Pulse: 82 Reason for blood pressure check - Medication adjustment Patient is: Taking medication as prescribed Yes Took medication today Yes If no, date medication last taken N/A Experiencing side effects No BP was low at last appt 10/19/21. Candesartan was d/c at that time. Pt tolerating medication change well. Does note that she gets lightheaded/shakey with she is stressed. Denies any chest pain or shortness of breath. Does note headaches approx 2-3/wk; will treat with prescribed medication for h/o headaches. Daily caffeine use. No personal history of tobacco use; current passive exposure. Alert andoriented Pt has been identified by name and birthdate: Yes Allergies reviewed: Yes Latex allergy: no. Medication - prescribed and OTC reviewed and updated: Yes Do you need any prescription refills prior to your next visit: No Health Maintenance: Reviewed and not up to date and provider notified Patient advised to continue with current medications and would be contacted if any further instructions after review by PCP. Maryam Dover LPN documented in this encounterK[facility]04-27-2022 History of Present illness Narrative* Maryam Dover LPN - 11/02/2021 2:53 PM EDT Manual Readin/78 Pulse: 82 Reason for blood pressure check - Medication adjustment Patient is: Taking medication as prescribed Yes Took medication today Yes If no, date medication last taken N/A Experiencing side effects No BP was low at last appt 10/19/21. Candesartan was d/c at that time. Pt tolerating medication change well. Does note that she gets lightheaded/shakey with she is stressed. Denies any chest pain or shortness of breath. Does note headaches approx 2-3/wk; will treat with prescribed medication for h/o headaches. Daily caffeine use. No personal history of tobacco use; current passive exposure. Alert andoriented Pt has been identified by name and birthdate: Yes Allergies reviewed: Yes Latex allergy: no. Medication - prescribed and OTC reviewed and updated: Yes Do you need any prescription refills prior to your next visit: No Health Maintenance: Reviewed and not up to date and provider notified Patient advised to continue with current medications and would be contacted if any further instructions after review by PCP. Maryam Dover LPN documented in this encounterK[facility]04-08-2022 Miscellaneous Notes* Telephone Encounter - HARRISON Marcano - 10/14/2021 2:50 PM EDT Paperwork faxed per providers request. HARRISON Marcano * Telephone Encounter - Lydia Gonzalez APRN.CNP - 10/14/2021 2:37 PM EDT Please fax paperwork in my out box for PT to [phone]. Thanks, Lydia Gonzalez APRN.BHARATHI documented in this encounterK[facility]02-15-2022 Miscellaneous Notes* Telephone Encounter - Maya Hernandez RN - 08/23/2021 10:43 AM EST Pt reports that she has been out of her day time dose of this medication since Sunday. Pt was notified that provider had changed this medication on her last appointment visit to 75 mg twice a day, instead of the 37.5 at bedtime. Refill did not go through last time. Patient has been identified by name and date of : Yes Patient phones for refill(s): Pending Prescriptions Disp Refills VENLAFAXINE 75 MG TABLET Sig: Take 1 tablet by mouth twice daily. FARHEEN: No Date of last office visit in primary care: 08/17/21 Future visit: 09/19/21 Last 2 Encounter Wt Readings: Date: Wt: 08/17/2021 85.2 kg (187 lb 12.8 oz) 08/09/2021 83.6 kg (184 lb 6.4 oz) Previous labs/tests for medication: Blood Pressure: BUN (mg/dL) Date Value 03/28/2021 8 Sodium (mmol/L) Date Value 03/28/2021 137 Last 1 Encounter BP Readings: Date: BP: 08/17/2021 110/66 Liver Function: ALT (U/L) Date Value 03/28/2021 8 AST (U/L) Date Value 03/28/2021 11 Please advise. Thank you. Maya Hernandez RN documented in this encounterK[facility]09[facility]-2015 History of Past illness Narrative* Problem Noted Date Resolved Date Low blood sugar 03/29/2015 12/30/2019 Last Assessment & Plan: Patient notes , she was diagnosed with prediabetes in the recent past and describes episodes of shaking when her sugars get low, she has multiple such episodes and would like to get her test strips as she ran out of them. Discussed that she should get her a1c tested Migraines 01/04/2015 01/11/2015 Last Assessment & Plan: The patient has migraines, for atleast 4/5 months. He had it. Since the age of 6 years ago, Has it every other day, imitrex made her allergic. Diarrhea 07/22/2013 01/11/2015 Abdominal pain, epigastric 07/22 documented as of this encounter (statuses as of 10/14/2021) [facility] of Past illness Narrative* Problem Noted Date Resolved Date Low blood sugar 03/29/2015 12/30/2019 Last Assessment & Plan: Patient notes , she was diagnosed with prediabetes in the recent past and describes episodes of shaking when her sugars get low, she has multiple such episodes and would like to get her test strips as she ran out of them. Discussed that she should get her a1c tested Migraines 01/04/2015 01/11/2015 Last Assessment & Plan: The patient has migraines, for atleast 4/5 months. He had it. Since the age of 6 years ago, Has it every other day, imitrex made her allergic. Diarrhea 07/22/2013 01/11/2015 Abdominal pain, epigastric 07/22 documented as of this encounter (statuses as of 11/02/2021) [facility] of Past illness Narrative* Problem Noted Date Resolved Date Low blood sugar 03/29/2015 12/30/2019 Last Assessment & Plan: Patient notes , she was diagnosed with prediabetes in the recent past and describes episodes of shaking when her sugars get low, she has multiple such episodes and would like to get her test strips as she ran out of them. Discussed that she should get her a1c tested Migraines 01/04/2015 01/11/2015 Last Assessment & Plan: The patient has migraines, for atleast 4/5 months. He had it. Since the age of 6 years ago, Has it every other day, imitrex made her allergic. Diarrhea 07/22/2013 01/11/2015 Abdominal pain, epigastric 07/22 documented as of this encounter (statuses as of 11/29/2021) [facility] of Past illness Narrative* Problem Noted Date Resolved Date Low blood sugar 03/29/2015 12/30/2019 Last Assessment & Plan: Patient notes , she was diagnosed with prediabetes in the recent past and describes episodes of shaking when her sugars get low, she has multiple such episodes and would like to get her test strips as she ran out of them. Discussed that she should get her a1c tested Migraines 01/04/2015 01/11/2015 Last Assessment & Plan: The patient has migraines, for atleast 4/5 months. He had it. Since the age of 6 years ago, Has it every other day, imitrex made her allergic. Diarrhea 07/22/2013 01/11/2015 Abdominal pain, epigastric 07/22 documented as of this encounter (statuses as of 12/02/2021) [facility] of Past illness Narrative* Problem Noted Date Resolved Date Low blood sugar 03/29/2015 12/30/2019 Last Assessment & Plan: Patient notes , she was diagnosed with prediabetes in the recent past and describes episodes of shaking when her sugars get low, she has multiple such episodes and would like to get her test strips as she ran out of them. Discussed that she should get her a1c tested Migraines 01/04/2015 01/11/2015 Last Assessment & Plan: The patient has migraines, for atleast 4/5 months. He had it. Since the age of 6 years ago, Has it every other day, imitrex made her allergic. Diarrhea 07/22/2013 01/11/2015 Abdominal pain, epigastric 07/22 documented as of this encounter (statuses as of 12/02/2021) [facility] of Past illness Narrative* Problem Noted Date Resolved Date Low blood sugar 03/29/2015 12/30/2019 Last Assessment & Plan: Patient notes , she was diagnosed with prediabetes in the recent past and describes episodes of shaking when her sugars get low, she has multiple such episodes and would like to get her test strips as she ran out of them. Discussed that she should get her a1c tested Migraines 01/04/2015 01/11/2015 Last Assessment & Plan: The patient has migraines, for atleast 4/5 months. He had it. Since the age of 6 years ago, Has it every other day, imitrex made her allergic. Diarrhea 07/22/2013 01/11/2015 Abdominal pain, epigastric 07/22 documented as of this encounter (statuses as of 12/06/2021) [facility] of Past illness Narrative* Problem Noted Date Resolved Date Low blood sugar 03/29/2015 12/30/2019 Last Assessment & Plan: Patient notes , she was diagnosed with prediabetes in the recent past and describes episodes of shaking when her sugars get low, she has multiple such episodes and would like to get her test strips as she ran out of them. Discussed that she should get her a1c tested Migraines 01/04/2015 01/11/2015 Last Assessment & Plan: The patient has migraines, for atleast 4/5 months. He had it. Since the age of 6 years ago, Has it every other day, imitrex made her allergic. Diarrhea 07/22/2013 01/11/2015 Abdominal pain, epigastric 07/22 documented as of this encounter (statuses as of 12/10/2021) [facility] of Past illness Narrative* Problem Noted Date Resolved Date Low blood sugar 03/29/2015 12/30/2019 Last Assessment & Plan: Patient notes , she was diagnosed with prediabetes in the recent past and describes episodes of shaking when her sugars get low, she has multiple such episodes and would like to get her test strips as she ran out of them. Discussed that she should get her a1c tested Migraines 01/04/2015 01/11/2015 Last Assessment & Plan: The patient has migraines, for atleast 4/5 months. He had it. Since the age of 6 years ago, Has it every other day, imitrex made her allergic. Diarrhea 07/22/2013 01/11/2015 Abdominal pain, epigastric 07/22 documented as of this encounter (statuses as of 12/13/2021) [facility] of Past illness Narrative* Problem Noted Date Resolved Date Low blood sugar 03/29/2015 12/30/2019 Last Assessment & Plan: Patient notes , she was diagnosed with prediabetes in the recent past and describes episodes of shaking when her sugars get low, she has multiple such episodes and would like to get her test strips as she ran out of them. Discussed that she should get her a1c tested Migraines 01/04/2015 01/11/2015 Last Assessment & Plan: The patient has migraines, for atleast 4/5 months. He had it. Since the age of 6 years ago, Has it every other day, imitrex made her allergic. Diarrhea 07/22/2013 01/11/2015 Abdominal pain, epigastric 07/22 documented as of this encounter (statuses as of 12/22/2021) [facility] of Past illness Narrative* Problem Noted Date Resolved Date Low blood sugar 03/29/2015 12/30/2019 Last Assessment & Plan: Patient notes , she was diagnosed with prediabetes in the recent past and describes episodes of shaking when her sugars get low, she has multiple such episodes and would like to get her test strips as she ran out of them. Discussed that she should get her a1c tested Migraines 01/04/2015 01/11/2015 Last Assessment & Plan: The patient has migraines, for atleast 4/5 months. He had it. Since the age of 6 years ago, Has it every other day, imitrex made her allergic. Diarrhea 07/22/2013 01/11/2015 Abdominal pain, epigastric 07/22 documented as of this encounter (statuses as of 12/22/2021) [facility] of Past illness Narrative* Problem Noted Date Resolved Date Low blood sugar 03/29/2015 12/30/2019 Last Assessment & Plan: Patient notes , she was diagnosed with prediabetes in the recent past and describes episodes of shaking when her sugars get low, she has multiple such episodes and would like to get her test strips as she ran out of them. Discussed that she should get her a1c tested Migraines 01/04/2015 01/11/2015 Last Assessment & Plan: The patient has migraines, for atleast 4/5 months. He had it. Since the age of 6 years ago, Has it every other day, imitrex made her allergic. Diarrhea 07/22/2013 01/11/2015 Abdominal pain, epigastric 07/22 documented as of this encounter (statuses as of 01/03/2022) [place] [address]-21-2015 History of Past illness Narrative* Problem Noted Date Resolved Date Low blood sugar 03/29/2015 12/30/2019 Last Assessment & Plan: Patient notes , she was diagnosed with prediabetes in the recent past and describes episodes of shaking when her sugars get low, she has multiple such episodes and would like to get her test strips as she ran out of them. Discussed that she should get her a1c tested Migraines 01/04/2015 01/11/2015 Last Assessment & Plan: The patient has migraines, for atleast 4/5 months. He had it. Since the age of 6 years ago, Has it every other day, imitrex made her allergic. Diarrhea 07/22/2013 01/11/2015 Abdominal pain, epigastric 07/22 documented as of this encounter (statuses as of 01/04/2022) [facility] of Past illness Narrative* Problem Noted Date Resolved Date Low blood sugar 03/29/2015 12/30/2019 Last Assessment & Plan: Patient notes , she was diagnosed with prediabetes in the recent past and describes episodes of shaking when her sugars get low, she has multiple such episodes and would like to get her test strips as she ran out of them. Discussed that she should get her a1c tested Migraines 01/04/2015 01/11/2015 Last Assessment & Plan: The patient has migraines, for atleast 4/5 months. He had it. Since the age of 6 years ago, Has it every other day, imitrex made her allergic. Diarrhea 07/22/2013 01/11/2015 Abdominal pain, epigastric 07/22 documented as of this encounter (statuses as of 01/10/2022) [facility] of Past illness Narrative* Problem Noted Date Resolved Date Low blood sugar 03/29/2015 12/30/2019 Last Assessment & Plan: Patient notes , she was diagnosed with prediabetes in the recent past and describes episodes of shaking when her sugars get low, she has multiple such episodes and would like to get her test strips as she ran out of them. Discussed that she should get her a1c tested Migraines 01/04/2015 01/11/2015 Last Assessment & Plan: The patient has migraines, for atleast 4/5 months. He had it. Since the age of 6 years ago, Has it every other day, imitrex made her allergic. Diarrhea 07/22/2013 01/11/2015 Abdominal pain, epigastric 07/22 documented as of this encounter (statuses as of 01/12/2022) [facility] of Past illness Narrative* Problem Noted Date Resolved Date Low blood sugar 03/29/2015 12/30/2019 Last Assessment & Plan: Patient notes , she was diagnosed with prediabetes in the recent past and describes episodes of shaking when her sugars get low, she has multiple such episodes and would like to get her test strips as she ran out of them. Discussed that she should get her a1c tested Migraines 01/04/2015 01/11/2015 Last Assessment & Plan: The patient has migraines, for atleast 4/5 months. He had it. Since the age of 6 years ago, Has it every other day, imitrex made her allergic. Diarrhea 07/22/2013 01/11/2015 Abdominal pain, epigastric 07/22 documented as of this encounter (statuses as of 01/18/2022) [facility] of Past illness Narrative* Problem Noted Date Resolved Date Low blood sugar 03/29/2015 12/30/2019 Last Assessment & Plan: Patient notes , she was diagnosed with prediabetes in the recent past and describes episodes of shaking when her sugars get low, she has multiple such episodes and would like to get her test strips as she ran out of them. Discussed that she should get her a1c tested Migraines 01/04/2015 01/11/2015 Last Assessment & Plan: The patient has migraines, for atleast 4/5 months. He had it. Since the age of 6 years ago, Has it every other day, imitrex made her allergic. Diarrhea 07/22/2013 01/11/2015 Abdominal pain, epigastric 07/22 documented as of this encounter (statuses as of 01/25/2022) [facility] of Past illness Narrative* Problem Noted Date Resolved Date Low blood sugar 03/29/2015 12/30/2019 Last Assessment & Plan: Patient notes , she was diagnosed with prediabetes in the recent past and describes episodes of shaking when her sugars get low, she has multiple such episodes and would like to get her test strips as she ran out of them. Discussed that she should get her a1c tested Migraines 01/04/2015 01/11/2015 Last Assessment & Plan: The patient has migraines, for atleast 4/5 months. He had it. Since the age of 6 years ago, Has it every other day, imitrex made her allergic. Diarrhea 07/22/2013 01/11/2015 Abdominal pain, epigastric 07/22 documented as of this encounter (statuses as of 01/25/2022) [facility] History of Past illness Narrative* Problem Noted Date Resolved Date Low blood sugar 03/29/2015 12/30/2019 Last Assessment & Plan: Patient notes , she was diagnosed with prediabetes in the recent past and describes episodes of shaking when her sugars get low, she has multiple such episodes and would like to get her test strips as she ran out of them. Discussed that she should get her a1c tested Migraines 01/04/2015 01/11/2015 Last Assessment & Plan: The patient has migraines, for atleast 4/5 months. He had it. Since the age of 6 years ago, Has it every other day, imitrex made her allergic. Diarrhea 07/22/2013 01/11/2015 Abdominal pain, epigastric 07/22 documented as of this encounter (statuses as of 03/07/2022) [facility] History of Past illness Narrative* Problem Noted Date Resolved Date Low blood sugar 03/29/2015 12/30/2019 Last Assessment & Plan: Patient notes , she was diagnosed with prediabetes in the recent past and describes episodes of shaking when her sugars get low, she has multiple such episodes and would like to get her test strips as she ran out of them. Discussed that she should get her a1c tested Migraines 01/04/2015 01/11/2015 Last Assessment & Plan: The patient has migraines, for atleast 4/5 months. He had it. Since the age of 6 years ago, Has it every other day, imitrex made her allergic. Diarrhea 07/22/2013 01/11/2015 Abdominal pain, epigastric 07/22 documented as of this encounter (statuses as of 03/14/2022) [facility] History of Past illness Narrative* Problem Noted Date Resolved Date Low blood sugar 03/29/2015 12/30/2019 Last Assessment & Plan: Patient notes , she was diagnosed with prediabetes in the recent past and describes episodes of shaking when her sugars get low, she has multiple such episodes and would like to get her test strips as she ran out of them. Discussed that she should get her a1c tested Migraines 01/04/2015 01/11/2015 Last Assessment & Plan: The patient has migraines, for atleast 4/5 months. He had it. Since the age of 6 years ago, Has it every other day, imitrex made her allergic. Diarrhea 07/22/2013 01/11/2015 Abdominal pain, epigastric 07/22 documented as of this encounter (statuses as of 03/20/2022) [facility] History of Past illness Narrative* Problem Noted Date Resolved Date Low blood sugar 03/29/2015 12/30/2019 Last Assessment & Plan: Patient notes , she was diagnosed with prediabetes in the recent past and describes episodes of shaking when her sugars get low, she has multiple such episodes and would like to get her test strips as she ran out of them. Discussed that she should get her a1c tested Migraines 01/04/2015 01/11/2015 Last Assessment & Plan: The patient has migraines, for atleast 4/5 months. He had it. Since the age of 6 years ago, Has it every other day, imitrex made her allergic. Diarrhea 07/22/2013 01/11/2015 Abdominal pain, epigastric 07/22 documented as of this encounter (statuses as of 03/30/2022) [facility] of Past illness Narrative* Problem Noted Date Resolved Date Low blood sugar 03/29/2015 12/30/2019 Last Assessment & Plan: Patient notes , she was diagnosed with prediabetes in the recent past and describes episodes of shaking when her sugars get low, she has multiple such episodes and would like to get her test strips as she ran out of them. Discussed that she should get her a1c tested Migraines 01/04/2015 01/11/2015 Last Assessment & Plan: The patient has migraines, for atleast 4/5 months. He had it. Since the age of 6 years ago, Has it every other day, imitrex made her allergic. Diarrhea 07/22/2013 01/11/2015 Abdominal pain, epigastric 07/22 documented as of this encounter (statuses as of 04/27/2022) [facility] History of Past illness Narrative* Problem Noted Date Resolved Date Low blood sugar 03/29/2015 12/30/2019 Last Assessment & Plan: Patient notes , she was diagnosed with prediabetes in the recent past and describes episodes of shaking when her sugars get low, she has multiple such episodes and would like to get her test strips as she ran out of them. Discussed that she should get her a1c tested Migraines 01/04/2015 01/11/2015 Last Assessment & Plan: The patient has migraines, for atleast 4/5 months. He had it. Since the age of 6 years ago, Has it every other day, imitrex made her allergic. Diarrhea 07/22/2013 01/11/2015 Abdominal pain, epigastric 07/22 documented as of this encounter (statuses as of 05/03/2022) [facility] History of Past illness Narrative* Problem Noted Date Resolved Date Low blood sugar 03/29/2015 12/30/2019 Last Assessment & Plan: Patient notes , she was diagnosed with prediabetes in the recent past and describes episodes of shaking when her sugars get low, she has multiple such episodes and would like to get her test strips as she ran out of them. Discussed that she should get her a1c tested Migraines 01/04/2015 01/11/2015 Last Assessment & Plan: The patient has migraines, for atleast 4/5 months. He had it. Since the age of 6 years ago, Has it every other day, imitrex made her allergic. Diarrhea 07/22/2013 01/11/2015 Abdominal pain, epigastric 07/22 documented as of this encounter (statuses as of 05/23/2022) [facility] History of Past illness Narrative* Problem Noted Date Resolved Date Low blood sugar 03/29/2015 12/30/2019 Last Assessment & Plan: Patient notes , she was diagnosed with prediabetes in the recent past and describes episodes of shaking when her sugars get low, she has multiple such episodes and would like to get her test strips as she ran out of them. Discussed that she should get her a1c tested Migraines 01/04/2015 01/11/2015 Last Assessment & Plan: The patient has migraines, for atleast 4/5 months. He had it. Since the age of 6 years ago, Has it every other day, imitrex made her allergic. Diarrhea 07/22/2013 01/11/2015 Abdominal pain, epigastric 07/22 documented as of this encounter (statuses as of 07/02/2022) [facility]09-21-2015 History of Past illness Narrative* Problem Noted Date Resolved Date Low blood sugar 03/29/2015 12/30/2019 Last Assessment & Plan: Patient notes , she was diagnosed with prediabetes in the recent past and describes episodes of shaking when her sugars get low, she has multiple such episodes and would like to get her test strips as she ran out of them. Discussed that she should get her a1c tested Migraines 01/04/2015 01/11/2015 Last Assessment & Plan: The patient has migraines, for atleast 4/5 months. He had it. Since the age of 6 years ago, Has it every other day, imitrex made her allergic. Diarrhea 07/22/2013 01/11/2015 Abdominal pain, epigastric 07/22 documented as of this encounter (statuses as of 08/15/2022) [facility]09-21-2015 History of Past illness Narrative* Problem Noted Date Resolved Date Low blood sugar 03/29/2015 12/30/2019 Last Assessment & Plan: Patient notes , she was diagnosed with prediabetes in the recent past and describes episodes of shaking when her sugars get low, she has multiple such episodes and would like to get her test strips as she ran out of them. Discussed that she should get her a1c tested Migraines 01/04/2015 01/11/2015 Last Assessment & Plan: The patient has migraines, for atleast 4/5 months. He had it. Since the age of 6 years ago, Has it every other day, imitrex made her allergic. Diarrhea 07/22/2013 01/11/2015 Abdominal pain, epigastric 07/22 documented as of this encounter (statuses as of 08/16/2022) [facility]09-21-2015 History of Past illness Narrative* Problem Noted Date Resolved Date Low blood sugar 03/29/2015 12/30/2019 Last Assessment & Plan: Patient notes , she was diagnosed with prediabetes in the recent past and describes episodes of shaking when her sugars get low, she has multiple such episodes and would like to get her test strips as she ran out of them. Discussed that she should get her a1c tested Migraines 01/04/2015 01/11/2015 Last Assessment & Plan: The patient has migraines, for atleast 4/5 months. He had it. Since the age of 6 years ago, Has it every other day, imitrex made her allergic. Diarrhea 07/22/2013 01/11/2015 Abdominal pain, epigastric 07/22 documented as of this encounter (statuses as of 08/16/2022) [facility]09-21-2015 History of Past illness Narrative* Problem Noted Date Resolved Date Low blood sugar 03/29/2015 12/30/2019 Last Assessment & Plan: Patient notes , she was diagnosed with prediabetes in the recent past and describes episodes of shaking when her sugars get low, she has multiple such episodes and would like to get her test strips as she ran out of them. Discussed that she should get her a1c tested Migraines 01/04/2015 01/11/2015 Last Assessment & Plan: The patient has migraines, for atleast 4/5 months. He had it. Since the age of 6 years ago, Has it every other day, imitrex made her allergic. Diarrhea 07/22/2013 01/11/2015 Abdominal pain, epigastric 07/22 documented as of this encounter (statuses as of 08/30/2022) [facility]09-21-2015 History of Past illness Narrative* Problem Noted Date Resolved Date Low blood sugar 03/29/2015 12/30/2019 Last Assessment & Plan: Patient notes , she was diagnosed with prediabetes in the recent past and describes episodes of shaking when her sugars get low, she has multiple such episodes and would like to get her test strips as she ran out of them. Discussed that she should get her a1c tested Migraines 01/04/2015 01/11/2015 Last Assessment & Plan: The patient has migraines, for atleast 4/5 months. He had it. Since the age of 6 years ago, Has it every other day, imitrex made her allergic. Diarrhea 07/22/2013 01/11/2015 Abdominal pain, epigastric 07/22 documented as of this encounter (statuses as of 09/01/2022) [facility]09-21-2015 History of Past illness Narrative* Problem Noted Date Resolved Date Low blood sugar 03/29/2015 12/30/2019 Last Assessment & Plan: Patient notes , she was diagnosed with prediabetes in the recent past and describes episodes of shaking when her sugars get low, she has multiple such episodes and would like to get her test strips as she ran out of them. Discussed that she should get her a1c tested Migraines 01/04/2015 01/11/2015 Last Assessment & Plan: The patient has migraines, for atleast 4/5 months. He had it. Since the age of 6 years ago, Has it every other day, imitrex made her allergic. Diarrhea 07/22/2013 01/11/2015 Abdominal pain, epigastric 07/22 documented as of this encounter (statuses as of 09/06/2022) [facility]09-21-2015 History of Past illness Narrative* Problem Noted Date Resolved Date Low blood sugar 03/29/2015 12/30/2019 Last Assessment & Plan: Patient notes , she was diagnosed with prediabetes in the recent past and describes episodes of shaking when her sugars get low, she has multiple such episodes and would like to get her test strips as she ran out of them. Discussed that she should get her a1c tested Migraines 01/04/2015 01/11/2015 Last Assessment & Plan: The patient has migraines, for atleast 4/5 months. He had it. Since the age of 6 years ago, Has it every other day, imitrex made her allergic. Diarrhea 07/22/2013 01/11/2015 Abdominal pain, epigastric 07/22 documented as of this encounter (statuses as of 09/22/2022) [facility]09-21-2015 History of Past illness Narrative* Problem Noted Date Resolved Date Low blood sugar 03/29/2015 12/30/2019 Last Assessment & Plan: Patient notes , she was diagnosed with prediabetes in the recent past and describes episodes of shaking when her sugars get low, she has multiple such episodes and would like to get her test strips as she ran out of them. Discussed that she should get her a1c tested Migraines 01/04/2015 01/11/2015 Last Assessment & Plan: The patient has migraines, for atleast 4/5 months. He had it. Since the age of 6 years ago, Has it every other day, imitrex made her allergic. Diarrhea 07/22/2013 01/11/2015 Abdominal pain, epigastric 07/22 documented as of this encounter (statuses as of 11/07/2022) [facility]09[facility]21-2015 History of Past illness Narrative* Problem Noted Date Resolved Date Low blood sugar 03/29/2015 12/30/2019 Last Assessment & Plan: Patient notes , she was diagnosed with prediabetes in the recent past and describes episodes of shaking when her sugars get low, she has multiple such episodes and would like to get her test strips as she ran out of them. Discussed that she should get her a1c tested Migraines 01/04/2015 01/11/2015 Last Assessment & Plan: The patient has migraines, for atleast 4/5 months. He had it. Since the age of 6 years ago, Has it every other day, imitrex made her allergic. Diarrhea 07/22/2013 01/11/2015 Abdominal pain, epigastric 07/22 documented as of this encounter (statuses as of 11/15/2022) [facility]09[facility]21-2015 History of Past illness Narrative* Problem Noted Date Resolved Date Low blood sugar 03/29/2015 12/30/2019 Last Assessment & Plan: Patient notes , she was diagnosed with prediabetes in the recent past and describes episodes of shaking when her sugars get low, she has multiple such episodes and would like to get her test strips as she ran out of them. Discussed that she should get her a1c tested Migraines 01/04/2015 01/11/2015 Last Assessment & Plan: The patient has migraines, for atleast 4/5 months. He had it. Since the age of 6 years ago, Has it every other day, imitrex made her allergic. Diarrhea 07/22/2013 01/11/2015 Abdominal pain, epigastric 07/22 documented as of this encounter (statuses as of 12/13/2022) [facility]09-21-2015 History of Past illness Narrative* Problem Noted Date Resolved Date Low blood sugar 03/29/2015 12/30/2019 Last Assessment & Plan: Patient notes , she was diagnosed with prediabetes in the recent past and describes episodes of shaking when her sugars get low, she has multiple such episodes and would like to get her test strips as she ran out of them. Discussed that she should get her a1c tested Migraines 01/04/2015 01/11/2015 Last Assessment & Plan: The patient has migraines, for atleast 4/5 months. He had it. Since the age of 6 years ago, Has it every other day, imitrex made her allergic. Diarrhea 07/22/2013 01/11/2015 Abdominal pain, epigastric 07/22 documented as of this encounter (statuses as of 12/14/2022) [facility]09[facility]21-2015 History of Past illness Narrative* Problem Noted Date Resolved Date Low blood sugar 03/29/2015 12/30/2019 Last Assessment & Plan: Patient notes , she was diagnosed with prediabetes in the recent past and describes episodes of shaking when her sugars get low, she has multiple such episodes and would like to get her test strips as she ran out of them. Discussed that she should get her a1c tested Migraines 01/04/2015 01/11/2015 Last Assessment & Plan: The patient has migraines, for atleast 4/5 months. He had it. Since the age of 6 years ago, Has it every other day, imitrex made her allergic. Diarrhea 07/22/2013 01/11/2015 Abdominal pain, epigastric 07/22 documented as of this encounter (statuses as of 01/08/2023) [facility]09[facility]2015 History of Past illness Narrative* Problem Noted Date Resolved Date Low blood sugar 03/29/2015 12/30/2019 Last Assessment & Plan: Patient notes , she was diagnosed with prediabetes in the recent past and describes episodes of shaking when her sugars get low, she has multiple such episodes and would like to get her test strips as she ran out of them. Discussed that she should get her a1c tested Migraines 01/04/2015 01/11/2015 Last Assessment & Plan: The patient has migraines, for atleast 4/5 months. He had it. Since the age of 6 years ago, Has it every other day, imitrex made her allergic. Diarrhea 07/22/2013 01/11/2015 Abdominal pain, epigastric 07/22 documented as of this encounter (statuses as of 01/12/2023) [facility]09-[facility]-2015 History of Past illness Narrative* Problem Noted Date Diagnosed Date Resolved Date Low blood sugar 03/29/2015 12/30/2019 Last Assessment & Plan: Patient notes , she was diagnosed with prediabetes in the recent past and describes episodes of shaking when her sugars get low, she has multiple such episodes and would like to get her test strips as she ran out of them. Discussed that she should get her a1c tested Migraines 01/04/2015 01/11/2015 Last Assessment & Plan: The patient has migraines, for atleast 4/5 months. He had it. Since the age of 6 years ago, Has it every other day, imitrex made her allergic. Diarrhea 07/22/2013 01/11/2015 Abdominal pain, epigastric 0 07/22/2013 documented as of this encounter (statuses as of 01/16/2023) [facility]09[facility]21[facility]2015 History of Past illness Narrative* Problem Noted Date Diagnosed Date Resolved Date Low blood sugar 03/29/2015 12/30/2019 Last Assessment & Plan: Patient notes , she was diagnosed with prediabetes in the recent past and describes episodes of shaking when her sugars get low, she has multiple such episodes and would like to get her test strips as she ran out of them. Discussed that she should get her a1c tested Migraines 01/04/2015 01/11/2015 Last Assessment & Plan: The patient has migraines, for atleast 4/5 months. He had it. Since the age of 6 years ago, Has it every other day, imitrex made her allergic. Diarrhea 07/22/2013 01/11/2015 Abdominal pain, epigastric 0 07/22/2013 documented as of this encounter (statuses as of 01/19/2023) [facility]09-21-2015 History of Past illness Narrative* Problem Noted Date Diagnosed Date Resolved Date Low blood sugar 03/29/2015 12/30/2019 Last Assessment & Plan: Patient notes , she was diagnosed with prediabetes in the recent past and describes episodes of shaking when her sugars get low, she has multiple such episodes and would like to get her test strips as she ran out of them. Discussed that she should get her a1c tested Migraines 01/04/2015 01/11/2015 Last Assessment & Plan: The patient has migraines, for atleast 4/5 months. He had it. Since the age of 6 years ago, Has it every other day, imitrex made her allergic. Diarrhea 07/22/2013 01/11/2015 Abdominal pain, epigastric 0 07/22/2013 documented as of this encounter (statuses as of 01/19/2023) [facility]09[facility]2015 History of Past illness Narrative* Problem Noted Date Diagnosed Date Resolved Date Low blood sugar 03/29/2015 12/30/2019 Last Assessment & Plan: Patient notes , she was diagnosed with prediabetes in the recent past and describes episodes of shaking when her sugars get low, she has multiple such episodes and would like to get her test strips as she ran out of them. Discussed that she should get her a1c tested Migraines 01/04/2015 01/11/2015 Last Assessment & Plan: The patient has migraines, for atleast 4/5 months. He had it. Since the age of 6 years ago, Has it every other day, imitrex made her allergic. Diarrhea 07/22/2013 01/11/2015 Abdominal pain, epigastric 0 07/22/2013 documented as of this encounter (statuses as of 02/06/2023) [facility]2015 History of Past illness Narrative* Problem Noted Date Diagnosed Date Resolved Date Low blood sugar 03/29/2015 12/30/2019 Last Assessment & Plan: Patient notes , she was diagnosed with prediabetes in the recent past and describes episodes of shaking when her sugars get low, she has multiple such episodes and would like to get her test strips as she ran out of them. Discussed that she should get her a1c tested Migraines 01/04/2015 01/11/2015 Last Assessment & Plan: The patient has migraines, for atleast 4/5 months. He had it. Since the age of 6 years ago, Has it every other day, imitrex made her allergic. Diarrhea 07/22/2013 01/11/2015 Abdominal pain, epigastric 0 07/22/2013 documented as of this encounter (statuses as of 03/02/2023) [facility]09[facility]21-2015 History of Past illness Narrative* Problem Noted Date Diagnosed Date Resolved Date Low blood sugar 03/29/2015 12/30/2019 Last Assessment & Plan: Patient notes , she was diagnosed with prediabetes in the recent past and describes episodes of shaking when her sugars get low, she has multiple such episodes and would like to get her test strips as she ran out of them. Discussed that she should get her a1c tested Migraines 01/04/2015 01/11/2015 Last Assessment & Plan: The patient has migraines, for atleast 4/5 months. He had it. Since the age of 6 years ago, Has it every other day, imitrex made her allergic. Diarrhea 07/22/2013 01/11/2015 Abdominal pain, epigastric 0 07/22/2013 documented as of this encounter (statuses as of 03/17/2023) [facility]09-21-2015 History of Past illness Narrative* Problem Noted Date Diagnosed Date Resolved Date Low blood sugar 03/29/2015 12/30/2019 Last Assessment & Plan: Patient notes , she was diagnosed with prediabetes in the recent past and describes episodes of shaking when her sugars get low, she has multiple such episodes and would like to get her test strips as she ran out of them. Discussed that she should get her a1c tested Migraines 01/04/2015 01/11/2015 Last Assessment & Plan: The patient has migraines, for atleast 4/5 months. He had it. Since the age of 6 years ago, Has it every other day, imitrex made her allergic. Diarrhea 07/22/2013 01/11/2015 Abdominal pain, epigastric 0 07/22/2013 documented as of this encounter (statuses as of 03/23/2023) [facility]09[facility]2015 History of Past illness Narrative* Problem Noted Date Diagnosed Date Resolved Date Low blood sugar 03/29/2015 12/30/2019 Last Assessment & Plan: Patient notes , she was diagnosed with prediabetes in the recent past and describes episodes of shaking when her sugars get low, she has multiple such episodes and would like to get her test strips as she ran out of them. Discussed that she should get her a1c tested Migraines 01/04/2015 01/11/2015 Last Assessment & Plan: The patient has migraines, for atleast 4/5 months. He had it. Since the age of 6 years ago, Has it every other day, imitrex made her allergic. Diarrhea 07/22/2013 01/11/2015 Abdominal pain, epigastric 0 07/22/2013 documented as of this encounter (statuses as of 03/30/2023) [facility]2015 History of Past illness Narrative* Problem Noted Date Diagnosed Date Resolved Date Low blood sugar 03/29/2015 12/30/2019 Last Assessment & Plan: Patient notes , she was diagnosed with prediabetes in the recent past and describes episodes of shaking when her sugars get low, she has multiple such episodes and would like to get her test strips as she ran out of them. Discussed that she should get her a1c tested Migraines 01/04/2015 01/11/2015 Last Assessment & Plan: The patient has migraines, for atleast 4/5 months. He had it. Since the age of 6 years ago, Has it every other day, imitrex made her allergic. Diarrhea 07/22/2013 01/11/2015 Abdominal pain, epigastric 0 07/22/2013 documented as of this encounter (statuses as of 04/18/2023) [facility]2015 History of Past illness Narrative* Problem Noted Date Diagnosed Date Resolved Date Low blood sugar 03/29/2015 12/30/2019 Last Assessment & Plan: Patient notes , she was diagnosed with prediabetes in the recent past and describes episodes of shaking when her sugars get low, she has multiple such episodes and would like to get her test strips as she ran out of them. Discussed that she should get her a1c tested Migraines 01/04/2015 01/11/2015 Last Assessment & Plan: The patient has migraines, for atleast 4/5 months. He had it. Since the age of 6 years ago, Has it every other day, imitrex made her allergic. Diarrhea 07/22/2013 01/11/2015 Abdominal pain, epigastric 0 07/22/2013 documented as of this encounter (statuses as of 04/18/2023) [facility]2015 History of Past illness Narrative* Problem Noted Date Diagnosed Date Resolved Date Low blood sugar 03/29/2015 12/30/2019 Last Assessment & Plan: Patient notes , she was diagnosed with prediabetes in the recent past and describes episodes of shaking when her sugars get low, she has multiple such episodes and would like to get her test strips as she ran out of them. Discussed that she should get her a1c tested Migraines 01/04/2015 01/11/2015 Last Assessment & Plan: The patient has migraines, for atleast 4/5 months. He had it. Since the age of 6 years ago, Has it every other day, imitrex made her allergic. Diarrhea 07/22/2013 01/11/2015 Abdominal pain, epigastric 0 07/22/2013 documented as of this encounter (statuses as of 05/01/2023) [facility]2015 History of Past illness Narrative* Problem Noted Date Diagnosed Date Resolved Date Low blood sugar 03/29/2015 12/30/2019 Last Assessment & Plan: Patient notes , she was diagnosed with prediabetes in the recent past and describes episodes of shaking when her sugars get low, she has multiple such episodes and would like to get her test strips as she ran out of them. Discussed that she should get her a1c tested Migraines 01/04/2015 01/11/2015 Last Assessment & Plan: The patient has migraines, for atleast 4/5 months. He had it. Since the age of 6 years ago, Has it every other day, imitrex made her allergic. Diarrhea 07/22/2013 01/11/2015 Abdominal pain, epigastric 0 07/22/2013 documented as of this encounter (statuses as of 05/09/2023) [facility]2015 History of Past illness Narrative* Problem Noted Date Diagnosed Date Resolved Date Low blood sugar 03/29/2015 12/30/2019 Last Assessment & Plan: Patient notes , she was diagnosed with prediabetes in the recent past and describes episodes of shaking when her sugars get low, she has multiple such episodes and would like to get her test strips as she ran out of them. Discussed that she should get her a1c tested Migraines 01/04/2015 01/11/2015 Last Assessment & Plan: The patient has migraines, for atleast 4/5 months. He had it. Since the age of 6 years ago, Has it every other day, imitrex made her allergic. Diarrhea 07/22/2013 01/11/2015 Abdominal pain, epigastric 0 07/22/2013 documented as of this encounter (statuses as of 05/09/2023) [facility]2015 History of Past illness Narrative* Problem Noted Date Diagnosed Date Resolved Date Low blood sugar 03/29/2015 12/30/2019 Last Assessment & Plan: Patient notes , she was diagnosed with prediabetes in the recent past and describes episodes of shaking when her sugars get low, she has multiple such episodes and would like to get her test strips as she ran out of them. Discussed that she should get her a1c tested Migraines 01/04/2015 01/11/2015 Last Assessment & Plan: The patient has migraines, for atleast 4/5 months. He had it. Since the age of 6 years ago, Has it every other day, imitrex made her allergic. Diarrhea 07/22/2013 01/11/2015 Abdominal pain, epigastric 0 07/22/2013 documented as of this encounter (statuses as of 05/09/2023) [facility]2015 History of Past illness Narrative* Problem Noted Date Diagnosed Date Resolved Date Low blood sugar 03/29/2015 12/30/2019 Last Assessment & Plan: Patient notes , she was diagnosed with prediabetes in the recent past and describes episodes of shaking when her sugars get low, she has multiple such episodes and would like to get her test strips as she ran out of them. Discussed that she should get her a1c tested Migraines 01/04/2015 01/11/2015 Last Assessment & Plan: The patient has migraines, for atleast 4/5 months. He had it. Since the age of 6 years ago, Has it every other day, imitrex made her allergic. Diarrhea 07/22/2013 01/11/2015 Abdominal pain, epigastric 0 07/22/2013 documented as of this encounter (statuses as of 05/13/2023) [facility]2015 History of Past illness Narrative* Problem Noted Date Diagnosed Date Resolved Date Low blood sugar 03/29/2015 12/30/2019 Last Assessment & Plan: Patient notes , she was diagnosed with prediabetes in the recent past and describes episodes of shaking when her sugars get low, she has multiple such episodes and would like to get her test strips as she ran out of them. Discussed that she should get her a1c tested Migraines 01/04/2015 01/11/2015 Last Assessment & Plan: The patient has migraines, for atleast 4/5 months. He had it. Since the age of 6 years ago, Has it every other day, imitrex made her allergic. Diarrhea 07/22/2013 01/11/2015 Abdominal pain, epigastric 0 07/22/2013 documented as of this encounter (statuses as of 05/13/2023) [facility]2015 History of Past illness Narrative* Problem Noted Date Diagnosed Date Resolved Date Low blood sugar 03/29/2015 12/30/2019 Last Assessment & Plan: Patient notes , she was diagnosed with prediabetes in the recent past and describes episodes of shaking when her sugars get low, she has multiple such episodes and would like to get her test strips as she ran out of them. Discussed that she should get her a1c tested Migraines 01/04/2015 01/11/2015 Last Assessment & Plan: The patient has migraines, for atleast 4/5 months. He had it. Since the age of 6 years ago, Has it every other day, imitrex made her allergic. Diarrhea 07/22/2013 01/11/2015 Abdominal pain, epigastric 0 07/22/2013 documented as of this encounter (statuses as of 05/13/2023) [facility]2015 History of Past illness Narrative* Problem Noted Date Diagnosed Date Resolved Date Low blood sugar 03/29/2015 12/30/2019 Last Assessment & Plan: Patient notes , she was diagnosed with prediabetes in the recent past and describes episodes of shaking when her sugars get low, she has multiple such episodes and would like to get her test strips as she ran out of them. Discussed that she should get her a1c tested Migraines 01/04/2015 01/11/2015 Last Assessment & Plan: The patient has migraines, for atleast 4/5 months. He had it. Since the age of 6 years ago, Has it every other day, imitrex made her allergic. Diarrhea 07/22/2013 01/11/2015 Abdominal pain, epigastric 0 07/22/2013 documented as of this encounter (statuses as of 05/13/2023) [facility]09-21-2015 History of Past illness Narrative* Problem Noted Date Diagnosed Date Resolved Date Low blood sugar 03/29/2015 12/30/2019 Last Assessment & Plan: Patient notes , she was diagnosed with prediabetes in the recent past and describes episodes of shaking when her sugars get low, she has multiple such episodes and would like to get her test strips as she ran out of them. Discussed that she should get her a1c tested Migraines 01/04/2015 01/11/2015 Last Assessment & Plan: The patient has migraines, for atleast 4/5 months. He had it. Since the age of 6 years ago, Has it every other day, imitrex made her allergic. Diarrhea 07/22/2013 01/11/2015 Abdominal pain, epigastric 0 07/22/2013 documented as of this encounter (statuses as of 05/15/2023) [facility]09-21-2015 History of Past illness Narrative* Problem Noted Date Diagnosed Date Resolved Date Low blood sugar 03/29/2015 12/30/2019 Last Assessment & Plan: Patient notes , she was diagnosed with prediabetes in the recent past and describes episodes of shaking when her sugars get low, she has multiple such episodes and would like to get her test strips as she ran out of them. Discussed that she should get her a1c tested Migraines 01/04/2015 01/11/2015 Last Assessment & Plan: The patient has migraines, for atleast 4/5 months. He had it. Since the age of 6 years ago, Has it every other day, imitrex made her allergic. Diarrhea 07/22/2013 01/11/2015 Abdominal pain, epigastric 0 07/22/2013 documented as of this encounter (statuses as of 05/25/2023) [facility]09-21-2015 History of Past illness Narrative* Problem Noted Date Diagnosed Date Resolved Date Low blood sugar 03/29/2015 12/30/2019 Last Assessment & Plan: Patient notes , she was diagnosed with prediabetes in the recent past and describes episodes of shaking when her sugars get low, she has multiple such episodes and would like to get her test strips as she ran out of them. Discussed that she should get her a1c tested Migraines 01/04/2015 01/11/2015 Last Assessment & Plan: The patient has migraines, for atleast 4/5 months. He had it. Since the age of 6 years ago, Has it every other day, imitrex made her allergic. Diarrhea 07/22/2013 01/11/2015 Abdominal pain, epigastric 0 07/22/2013 documented as of this encounter (statuses as of 05/29/2023) [facility]09-21-2015 History of Past illness Narrative* Problem Noted Date Diagnosed Date Resolved Date Low blood sugar 03/29/2015 12/30/2019 Last Assessment & Plan: Patient notes , she was diagnosed with prediabetes in the recent past and describes episodes of shaking when her sugars get low, she has multiple such episodes and would like to get her test strips as she ran out of them. Discussed that she should get her a1c tested Migraines 01/04/2015 01/11/2015 Last Assessment & Plan: The patient has migraines, for atleast 4/5 months. He had it. Since the age of 6 years ago, Has it every other day, imitrex made her allergic. Diarrhea 07/22/2013 01/11/2015 Abdominal pain, epigastric 0 07/22/2013 documented as of this encounter (statuses as of 06/05/2023) [facility]-2015 History of Past illness Narrative* Problem Noted Date Diagnosed Date Resolved Date Low blood sugar 03/29/2015 12/30/2019 Last Assessment & Plan: Patient notes , she was diagnosed with prediabetes in the recent past and describes episodes of shaking when her sugars get low, she has multiple such episodes and would like to get her test strips as she ran out of them. Discussed that she should get her a1c tested Migraines 01/04/2015 01/11/2015 Last Assessment & Plan: The patient has migraines, for atleast 4/5 months. He had it. Since the age of 6 years ago, Has it every other day, imitrex made her allergic. Diarrhea 07/22/2013 01/11/2015 Abdominal pain, epigastric 0 07/22/2013 documented as of this encounter (statuses as of 06/07/2023) [facility]-21-2015 History of Past illness Narrative* Problem Noted Date Diagnosed Date Resolved Date Low blood sugar 03/29/2015 12/30/2019 Last Assessment & Plan: Patient notes , she was diagnosed with prediabetes in the recent past and describes episodes of shaking when her sugars get low, she has multiple such episodes and would like to get her test strips as she ran out of them. Discussed that she should get her a1c tested Migraines 01/04/2015 01/11/2015 Last Assessment & Plan: The patient has migraines, for atleast 4/5 months. He had it. Since the age of 6 years ago, Has it every other day, imitrex made her allergic. Diarrhea 07/22/2013 01/11/2015 Abdominal pain, epigastric 0 07/22/2013 documented as of this encounter (statuses as of 06/15/2023) [facility] Diagnosis Essential hypertension with goal blood pressure less than 140/90- Primary [facility] Diagnosis Screening for colon cancer Special screening for malignant neoplasms, colon Screening for malignant neoplasm of the rectum [facility] noteNo assessment information availableWAshtab[facility] Work Phone: Evaluation note* Diagnosis Epigastric pain- Primary Abdominal pain, epigastric Nausea Nausea alone [facility] Diagnosis Nausea Nausea alone [facility] Diagnosis Epigastric pain- Primary Abdominal pain, epigastric Nausea Nausea alone [facility] Diagnosis Acute pain of right shoulder [facility] Diagnosis Acute pain of right shoulder- Primary [facility] Diagnosis Right wrist pain- Primary Pain in joint, forearm [facility] Diagnosis Essential hypertension with goal blood pressure less than 140/90 [facility] Diagnosis Migraine without aura and without status migrainosus, not intractable Migraine without aura, without mention of intractable migraine without mention of status migrainosus [facility] Diagnosis Primary osteoarthritis of right shoulder- Primary Primary localized osteoarthrosis, shoulder region Acute pain of right shoulder Impingement syndrome of right shoulder Other affections of shoulder region, not elsewhere classified [facility] Diagnosis Gastroesophageal reflux disease with esophagitis without hemorrhage Urinary retention Retention of urine, unspecified [facility] Diagnosis Hiatal hernia with GERD without esophagitis- Primary Bilateral upper abdominal pain Abdominal pain, right upper quadrant Irritable bowel syndrome with both constipation and diarrhea [facility] Diagnosis Hiatal hernia with GERD without esophagitis- Primary Bilateral upper abdominal pain Abdominal pain, right upper quadrant Irritable bowel syndrome with both constipation and diarrhea Abdominal distension (gaseous) Flatulence, eructation, and gas pain Nausea Nausea alone [facility] Diagnosis Migraine without aura and without status migrainosus, not intractable Migraine without aura, without mention of intractable migraine without mention of status migrainosus [facility] Diagnosis Moderate episode of recurrent major depressive disorder (HCC) [facility] Diagnosis Annual physical exam- Primary Routine general medical examination at a health care facility Migraine without aura and without status migrainosus, not intractable Migraine without aura, without mention of intractable migraine without mention of status migrainosus Thrombocytosis Essential thrombocythemia Acquired hypothyroidism Unspecified hypothyroidism Encounter for screening mammogram for breast cancer Encounter for immunization Need for other specified prophylactic vaccination against single bacterial disease Sprain of ligament of right ankle, subsequent encounter Moderate episode of recurrent major depressive disorder (HCC) [facility] Diagnosis Sprain of ligament of right ankle, subsequent encounter- Primary [facility] Diagnosis Abnormal mammogram- Primary Abnormal mammogram, unspecified [facility] Diagnosis Syncope and collapse- Primary Elbow pain, right Pain in joint, upper arm [facility]* Diagnosis Moderate episode of recurrent major depressive disorder (HCC) [facility] Diagnosis Peripheral edema- Primary Edema [facility]* Diagnosis Bilateral swelling of feet- Primary Swelling of limb Plantar wart [facility] Diagnosis Plantar wart- Primary S/P cryotherapy of skin lesion [facility] Diagnosis Migraine without aura and without status migrainosus, not intractable Migraine without aura, without mention of intractable migraine without mention of status migrainosus [facility] Diagnosis Depression, unspecified depression type [facility]* Diagnosis Claudication (HCC)- Primary Peripheral vascular disease, unspecified Migraine without aura and without status migrainosus, not intractable Migraine without aura, without mention of intractable migraine without mention of status migrainosus Essential hypertension Unspecified essential hypertension Acquired hypothyroidism Unspecified hypothyroidism Anxiety with depression Encounter for immunization Need for other specified prophylactic vaccination against single bacterial disease [facility] Diagnosis Hiatal hernia with GERD without esophagitis- Primary Esophageal dysphagia Dysphagia, pharyngoesophageal phase Irritable bowel syndrome with both constipation and diarrhea Fatty metamorphosis of liver Other chronic nonalcoholic liver disease [facility]* Diagnosis Irritable bowel syndrome with both constipation and diarrhea [facility]* Diagnosis Esophageal dysphagia Dysphagia, pharyngoesophageal phase [facility] Diagnosis Abnormal mammogram Abnormal mammogram, unspecified [facility] Diagnosis Hiatal hernia with GERD without esophagitis Bilateral upper abdominal pain Abdominal pain, right upper quadrant Abdominal distension (gaseous) Flatulence, eructation, and gas pain Nausea Nausea alone [facility] Diagnosis Inconclusive mammogram [facility] Diagnosis Migraine without aura and without status migrainosus, not intractable- Primary Migraine without aura, without mention of intractable migraine without mention of status migrainosus [facility] Diagnosis Migraine without aura and without status migrainosus, not intractable Migraine without aura, without mention of intractable migraine without mention of status migrainosus [facility] Diagnosis Hiatal hernia with GERD without esophagitis Esophageal dysphagia Dysphagia, pharyngoesophageal phase [facility] Diagnosis Migraine without aura and without status migrainosus, not intractable- Primary Migraine without aura, without mention of intractable migraine without mention of status migrainosus Syncope and collapse Orthostatic lightheadedness Dizziness and giddiness Obstructive sleep apnea Obstructive sleep apnea (adult) (pediatric) Neuropathy Mononeuritis of unspecified site Blurred vision, bilateral Other specified visual disturbances [facility] Diagnosis Migraine without aura and without status migrainosus, not intractable- Primary Migraine without aura, without mention of intractable migraine without mention of status migrainosus Presbyopia Optic cupping of both eyes [facility]* Diagnosis Abnormal mammogram- Primary Abnormal mammogram, unspecified [facility]* Diagnosis Seasonal allergic rhinitis, unspecified trigger Migraine without aura and without status migrainosus, not intractable Migraine without aura, without mention of intractable migraine without mention of status migrainosus [facility]* Diagnosis Abnormal mammogram Abnormal mammogram, unspecified [facility]* Diagnosis Migraine without aura and without status migrainosus, not intractable- Primary Migraine without aura, without mention of intractable migraine without mention of status migrainosus Syncope and collapse Orthostatic lightheadedness Dizziness and giddiness [facility]* Diagnosis Abnormal finding on breast imaging- Primary Other (abnormal) findings on radiological examination of breast Pseudoangiomatous stromal hyperplasia of breast Hypertrophy of breast [facility]* Diagnosis Tinea corporis- Primary Dermatophytosis of the body [facility]* Diagnosis Hiatal hernia with GERD without esophagitis Esophageal dysphagia Dysphagia, pharyngoesophageal phase [facility]* Diagnosis Migraine without aura and without status migrainosus, not intractable Migraine without aura, without mention of intractable migraine without mention of status migrainosus [facility]* Diagnosis Hiatal hernia with GERD without esophagitis Esophageal dysphagia Dysphagia, pharyngoesophageal phase [facility]* Diagnosis Moderate episode of recurrent major depressive disorder (HCC) [facility]* Diagnosis Plantar wart of both feet- Primary Tinea corporis Dermatophytosis of the body Moderate episode of recurrent major depressive disorder (HCC) [facility]* Diagnosis Other chest pain- Primary Acute serous otitis media of left ear, recurrence not specified [facility] Diagnosis Annual physical exam- Primary Routine general medical examination at a health care facility Essential hypertension Unspecified essential hypertension Acquired hypothyroidism Unspecified hypothyroidism Migraine without aura and without status migrainosus, not intractable Migraine without aura, without mention of intractable migraine without mention of status migrainosus Enlarged thyroid Goiter, unspecified Anxiety with depression Class 1 obesity due to excess calories with body mass index (BMI) of 34.0 to 34.9 in adult, unspecified whether serious comorbidity present [facility]* Diagnosis Hiatal hernia with GERD without esophagitis Esophageal dysphagia Dysphagia, pharyngoesophageal phase [facility] Diagnosis Depression, unspecified depression type Seasonal allergic rhinitis, unspecified trigger [facility] Diagnosis Left tennis elbow- Primary Lateral epicondylitis of elbow [facility] Diagnosis Microcytic anemia- Primary Iron deficiency anemia, unspecified Thrombocytosis Essential thrombocythemia [facility]* Diagnosis Callus of foot- Primary Corns and callosities [facility] Diagnosis Migraines- Primary Migraine, unspecified, without mention of intractable migraine without mention of status migrainosus Hypothyroidism Unspecified hypothyroidism Hypertension Unspecified essential hypertension Anxiety Anxiety state, unspecified Hyperlipidemia Other and unspecified hyperlipidemia Vitamin B 12 deficiency Other B-complex deficiencies Vitamin D deficiency Unspecified vitamin D deficiency Migraine without aura and without status migrainosus, not intractable- Primary Migraine without aura, without mention of intractable migraine without mention of status migrainosus Low blood sugar Hypoglycemia, unspecified Prediabetes Other abnormal glucose Acquired hypothyroidism Unspecified hypothyroidism Essential hypertension Unspecified essential hypertension [place]ab[place] Anxiety- Primary Anxiety state, unspecified Mixed hyperlipidemia Nausea Nausea alone Essential hypertension with goal blood pressure less than 140/90 Recurrent major depression in partial remission (HCC) Major depressive disorder, recurrent episode, in partial or unspecified remission Acquired hypothyroidism Unspecified hypothyroidism Migraine without aura and without status migrainosus, not intractable Migraine without aura, without mention of intractable migraine without mention of status migrainosus Hypokalemia- Primary Hypopotassemia Need for vaccination Need for prophylactic vaccination and inoculation against unspecified single disease Nausea Nausea alone Essential hypertension Unspecified essential hypertension Acquired hypothyroidism Unspecified hypothyroidism Lymph node enlargement Enlargement of lymph nodes Iron deficiency- Primary Iron deficiency anemia, unspecified documented in this encounter [facility]* Diagnosis Migraines- Primary Migraine, unspecified, without mention of intractable migraine without mention of status migrainosus Hypothyroidism Unspecified hypothyroidism Hypertension Unspecified essential hypertension Anxiety Anxiety state, unspecified Hyperlipidemia Other and unspecified hyperlipidemia Vitamin B 12 deficiency Other B-complex deficiencies Vitamin D deficiency Unspecified vitamin D deficiency Migraine without aura and without status migrainosus, not intractable- Primary Migraine without aura, without mention of intractable migraine without mention of status migrainosus Low blood sugar Hypoglycemia, unspecified Prediabetes Other abnormal glucose Acquired hypothyroidism Unspecified hypothyroidism Essential hypertension Unspecified essential hypertension [place] Anxiety- Primary Anxiety state, unspecified Mixed hyperlipidemia Nausea Nausea alone Essential hypertension with goal blood pressure less than 140/90 Recurrent major depression in partial remission (HCC) Major depressive disorder, recurrent episode, in partial or unspecified remission Acquired hypothyroidism Unspecified hypothyroidism Migraine without aura and without status migrainosus, not intractable Migraine without aura, without mention of intractable migraine without mention of status migrainosus Hypokalemia- Primary Hypopotassemia Need for vaccination Need for prophylactic vaccination and inoculation against unspecified single disease Nausea Nausea alone Essential hypertension Unspecified essential hypertension Acquired hypothyroidism Unspecified hypothyroidism Lymph node enlargement Enlargement of lymph nodes Hiatal hernia with GERD without esophagitis Esophageal dysphagia Dysphagia, pharyngoesophageal phase documented in this encounter [facility] note* Diagnosis Migraines- Primary Migraine, unspecified, without mention of intractable migraine without mention of status migrainosus Hypothyroidism Unspecified hypothyroidism Hypertension Unspecified essential hypertension Anxiety Anxiety state, unspecified Hyperlipidemia Other and unspecified hyperlipidemia Vitamin B 12 deficiency Other B-complex deficiencies Vitamin D deficiency Unspecified vitamin D deficiency Migraine without aura and without status migrainosus, not intractable- Primary Migraine without aura, without mention of intractable migraine without mention of status migrainosus Low blood sugar Hypoglycemia, unspecified Prediabetes Other abnormal glucose Acquired hypothyroidism Unspecified hypothyroidism Essential hypertension Unspecified essential hypertension [place] Anxiety- Primary Anxiety state, unspecified Mixed hyperlipidemia Nausea Nausea alone Essential hypertension with goal blood pressure less than 140/90 Recurrent major depression in partial remission (HCC) Major depressive disorder, recurrent episode, in partial or unspecified remission Acquired hypothyroidism Unspecified hypothyroidism Migraine without aura and without status migrainosus, not intractable Migraine without aura, without mention of intractable migraine without mention of status migrainosus Hypokalemia- Primary Hypopotassemia Need for vaccination Need for prophylactic vaccination and inoculation against unspecified single disease Nausea Nausea alone Essential hypertension Unspecified essential hypertension Acquired hypothyroidism Unspecified hypothyroidism Lymph node enlargement Enlargement of lymph nodes Sprain of ligament of right ankle, subsequent encounter documented in this encounter [facility]* Diagnosis Migraines- Primary Migraine, unspecified, without mention of intractable migraine without mention of status migrainosus Hypothyroidism Unspecified hypothyroidism Hypertension Unspecified essential hypertension Anxiety Anxiety state, unspecified Hyperlipidemia Other and unspecified hyperlipidemia Vitamin B 12 deficiency Other B-complex deficiencies Vitamin D deficiency Unspecified vitamin D deficiency Migraine without aura and without status migrainosus, not intractable- Primary Migraine without aura, without mention of intractable migraine without mention of status migrainosus Low blood sugar Hypoglycemia, unspecified Prediabetes Other abnormal glucose Acquired hypothyroidism Unspecified hypothyroidism Essential hypertension Unspecified essential hypertension [place] Anxiety- Primary Anxiety state, unspecified Mixed hyperlipidemia Nausea Nausea alone Essential hypertension with goal blood pressure less than 140/90 Recurrent major depression in partial remission (HCC) Major depressive disorder, recurrent episode, in partial or unspecified remission Acquired hypothyroidism Unspecified hypothyroidism Migraine without aura and without status migrainosus, not intractable Migraine without aura, without mention of intractable migraine without mention of status migrainosus Hypokalemia- Primary Hypopotassemia Need for vaccination Need for prophylactic vaccination and inoculation against unspecified single disease Nausea Nausea alone Essential hypertension Unspecified essential hypertension Acquired hypothyroidism Unspecified hypothyroidism Lymph node enlargement Enlargement of lymph nodes Right wrist pain Pain in joint, forearm documented in this encounter [facility] note* Diagnosis Migraines- Primary Migraine, unspecified, without mention of intractable migraine without mention of status migrainosus Hypothyroidism Unspecified hypothyroidism Hypertension Unspecified essential hypertension Anxiety Anxiety state, unspecified Hyperlipidemia Other and unspecified hyperlipidemia Vitamin B 12 deficiency Other B-complex deficiencies Vitamin D deficiency Unspecified vitamin D deficiency Migraine without aura and without status migrainosus, not intractable- Primary Migraine without aura, without mention of intractable migraine without mention of status migrainosus Low blood sugar Hypoglycemia, unspecified Prediabetes Other abnormal glucose Acquired hypothyroidism Unspecified hypothyroidism Essential hypertension Unspecified essential hypertension [place]abies Anxiety- Primary Anxiety state, unspecified Mixed hyperlipidemia Nausea Nausea alone Essential hypertension with goal blood pressure less than 140/90 Recurrent major depression in partial remission (HCC) Major depressive disorder, recurrent episode, in partial or unspecified remission Acquired hypothyroidism Unspecified hypothyroidism Migraine without aura and without status migrainosus, not intractable Migraine without aura, without mention of intractable migraine without mention of status migrainosus Hypokalemia- Primary Hypopotassemia Need for vaccination Need for prophylactic vaccination and inoculation against unspecified single disease Nausea Nausea alone Essential hypertension Unspecified essential hypertension Acquired hypothyroidism Unspecified hypothyroidism Lymph node enlargement Enlargement of lymph nodes Acute pain of right shoulder Neck pain Cervicalgia documented in this encounter [facility] note* Diagnosis Migraines- Primary Migraine, unspecified, without mention of intractable migraine without mention of status migrainosus Hypothyroidism Unspecified hypothyroidism Hypertension Unspecified essential hypertension Anxiety Anxiety state, unspecified Hyperlipidemia Other and unspecified hyperlipidemia Vitamin B 12 deficiency Other B-complex deficiencies Vitamin D deficiency Unspecified vitamin D deficiency Migraine without aura and without status migrainosus, not intractable- Primary Migraine without aura, without mention of intractable migraine without mention of status migrainosus Low blood sugar Hypoglycemia, unspecified Prediabetes Other abnormal glucose Acquired hypothyroidism Unspecified hypothyroidism Essential hypertension Unspecified essential hypertension [place] Anxiety- Primary Anxiety state, unspecified Mixed hyperlipidemia Nausea Nausea alone Essential hypertension with goal blood pressure less than 140/90 Recurrent major depression in partial remission (HCC) Major depressive disorder, recurrent episode, in partial or unspecified remission Acquired hypothyroidism Unspecified hypothyroidism Migraine without aura and without status migrainosus, not intractable Migraine without aura, without mention of intractable migraine without mention of status migrainosus Hypokalemia- Primary Hypopotassemia Need for vaccination Need for prophylactic vaccination and inoculation against unspecified single disease Nausea Nausea alone Essential hypertension Unspecified essential hypertension Acquired hypothyroidism Unspecified hypothyroidism Lymph node enlargement Enlargement of lymph nodes Right wrist injury, [facility] Diagnosis Migraines- Primary Migraine, unspecified, without mention of intractable migraine without mention of status migrainosus Hypothyroidism Unspecified hypothyroidism Hypertension Unspecified essential hypertension Anxiety Anxiety state, unspecified Hyperlipidemia Other and unspecified hyperlipidemia Vitamin B 12 deficiency Other B-complex deficiencies Vitamin D deficiency Unspecified vitamin D deficiency Migraine without aura and without status migrainosus, not intractable- Primary Migraine without aura, without mention of intractable migraine without mention of status migrainosus Low blood sugar Hypoglycemia, unspecified Prediabetes Other abnormal glucose Acquired hypothyroidism Unspecified hypothyroidism Essential hypertension Unspecified essential hypertension [place] Anxiety- Primary Anxiety state, unspecified Mixed hyperlipidemia Nausea Nausea alone Essential hypertension with goal blood pressure less than 140/90 Recurrent major depression in partial remission (HCC) Major depressive disorder, recurrent episode, in partial or unspecified remission Acquired hypothyroidism Unspecified hypothyroidism Migraine without aura and without status migrainosus, not intractable Migraine without aura, without mention of intractable migraine without mention of status migrainosus Hypokalemia- Primary Hypopotassemia Need for vaccination Need for prophylactic vaccination and inoculation against unspecified single disease Nausea Nausea alone Essential hypertension Unspecified essential hypertension Acquired hypothyroidism Unspecified hypothyroidism Lymph node enlargement Enlargement of lymph nodes Migraine without aura and without status migrainosus, not intractable- Primary Migraine without aura, without mention of intractable migraine without mention of status migrainosus Presbyopia Optic cupping of both eyes [facility] Diagnosis Migraines- Primary Migraine, unspecified, without mention of intractable migraine without mention of status migrainosus Hypothyroidism Unspecified hypothyroidism Hypertension Unspecified essential hypertension Anxiety Anxiety state, unspecified Hyperlipidemia Other and unspecified hyperlipidemia Vitamin B 12 deficiency Other B-complex deficiencies Vitamin D deficiency Unspecified vitamin D deficiency Migraine without aura and without status migrainosus, not intractable- Primary Migraine without aura, without mention of intractable migraine without mention of status migrainosus Low blood sugar Hypoglycemia, unspecified Prediabetes Other abnormal glucose Acquired hypothyroidism Unspecified hypothyroidism Essential hypertension Unspecified essential hypertension [place] Anxiety- Primary Anxiety state, unspecified Mixed hyperlipidemia Nausea Nausea alone Essential hypertension with goal blood pressure less than 140/90 Recurrent major depression in partial remission (HCC) Major depressive disorder, recurrent episode, in partial or unspecified remission Acquired hypothyroidism Unspecified hypothyroidism Migraine without aura and without status migrainosus, not intractable Migraine without aura, without mention of intractable migraine without mention of status migrainosus Hypokalemia- Primary Hypopotassemia Need for vaccination Need for prophylactic vaccination and inoculation against unspecified single disease Nausea Nausea alone Essential hypertension Unspecified essential hypertension Acquired hypothyroidism Unspecified hypothyroidism Lymph node enlargement Enlargement of lymph nodes Iron deficiency Iron deficiency anemia, unspecified Migraine without aura and without status migrainosus, not intractable Migraine without aura, without mention of intractable migraine without mention of status migrainosus [facility] Diagnosis Migraines- Primary Migraine, unspecified, without mention of intractable migraine without mention of status migrainosus Hypothyroidism Unspecified hypothyroidism Hypertension Unspecified essential hypertension Anxiety Anxiety state, unspecified Hyperlipidemia Other and unspecified hyperlipidemia Vitamin B 12 deficiency Other B-complex deficiencies Vitamin D deficiency Unspecified vitamin D deficiency Migraine without aura and without status migrainosus, not intractable- Primary Migraine without aura, without mention of intractable migraine without mention of status migrainosus Low blood sugar Hypoglycemia, unspecified Prediabetes Other abnormal glucose Acquired hypothyroidism Unspecified hypothyroidism Essential hypertension Unspecified essential hypertension [place] Anxiety- Primary Anxiety state, unspecified Mixed hyperlipidemia Nausea Nausea alone Essential hypertension with goal blood pressure less than 140/90 Recurrent major depression in partial remission (HCC) Major depressive disorder, recurrent episode, in partial or unspecified remission Acquired hypothyroidism Unspecified hypothyroidism Migraine without aura and without status migrainosus, not intractable Migraine without aura, without mention of intractable migraine without mention of status migrainosus Hypokalemia- Primary Hypopotassemia Need for vaccination Need for prophylactic vaccination and inoculation against unspecified single disease Nausea Nausea alone Essential hypertension Unspecified essential hypertension Acquired hypothyroidism Unspecified hypothyroidism Lymph node enlargement Enlargement of lymph nodes Migraine without aura and without status migrainosus, not intractable- Primary Migraine without aura, without mention of intractable migraine without mention of status migrainosus Syncope and collapse Orthostatic lightheadedness Dizziness and giddiness [facility] Diagnosis Migraines- Primary Migraine, unspecified, without mention of intractable migraine without mention of status migrainosus Hypothyroidism Unspecified hypothyroidism Hypertension Unspecified essential hypertension Anxiety Anxiety state, unspecified Hyperlipidemia Other and unspecified hyperlipidemia Vitamin B 12 deficiency Other B-complex deficiencies Vitamin D deficiency Unspecified vitamin D deficiency Migraine without aura and without status migrainosus, not intractable- Primary Migraine without aura, without mention of intractable migraine without mention of status migrainosus Low blood sugar Hypoglycemia, unspecified Prediabetes Other abnormal glucose Acquired hypothyroidism Unspecified hypothyroidism Essential hypertension Unspecified essential hypertension [place] Anxiety- Primary Anxiety state, unspecified Mixed hyperlipidemia Nausea Nausea alone Essential hypertension with goal blood pressure less than 140/90 Recurrent major depression in partial remission (HCC) Major depressive disorder, recurrent episode, in partial or unspecified remission Acquired hypothyroidism Unspecified hypothyroidism Migraine without aura and without status migrainosus, not intractable Migraine without aura, without mention of intractable migraine without mention of status migrainosus Hypokalemia- Primary Hypopotassemia Need for vaccination Need for prophylactic vaccination and inoculation against unspecified single disease Nausea Nausea alone Essential hypertension Unspecified essential hypertension Acquired hypothyroidism Unspecified hypothyroidism Lymph node enlargement Enlargement of lymph nodes Moderate episode of recurrent major depressive disorder (HCC) [facility] Diagnosis Migraines- Primary Migraine, unspecified, without mention of intractable migraine without mention of status migrainosus Hypothyroidism Unspecified hypothyroidism Hypertension Unspecified essential hypertension Anxiety Anxiety state, unspecified Hyperlipidemia Other and unspecified hyperlipidemia Vitamin B 12 deficiency Other B-complex deficiencies Vitamin D deficiency Unspecified vitamin D deficiency Migraine without aura and without status migrainosus, not intractable- Primary Migraine without aura, without mention of intractable migraine without mention of status migrainosus Low blood sugar Hypoglycemia, unspecified Prediabetes Other abnormal glucose Acquired hypothyroidism Unspecified hypothyroidism Essential hypertension Unspecified essential hypertension [place] Anxiety- Primary Anxiety state, unspecified Mixed hyperlipidemia Nausea Nausea alone Essential hypertension with goal blood pressure less than 140/90 Recurrent major depression in partial remission (HCC) Major depressive disorder, recurrent episode, in partial or unspecified remission Acquired hypothyroidism Unspecified hypothyroidism Migraine without aura and without status migrainosus, not intractable Migraine without aura, without mention of intractable migraine without mention of status migrainosus Hypokalemia- Primary Hypopotassemia Need for vaccination Need for prophylactic vaccination and inoculation against unspecified single disease Nausea Nausea alone Essential hypertension Unspecified essential hypertension Acquired hypothyroidism Unspecified hypothyroidism Lymph node enlargement Enlargement of lymph nodes Depression, unspecified depression type Iron deficiency Iron deficiency anemia, unspecified Seasonal allergic rhinitis, unspecified trigger documented in this encounter [facility] note* Diagnosis Migraines- Primary Migraine, unspecified, without mention of intractable migraine without mention of status migrainosus Hypothyroidism Unspecified hypothyroidism Hypertension Unspecified essential hypertension Anxiety Anxiety state, unspecified Hyperlipidemia Other and unspecified hyperlipidemia Vitamin B 12 deficiency Other B-complex deficiencies Vitamin D deficiency Unspecified vitamin D deficiency Migraine without aura and without status migrainosus, not intractable- Primary Migraine without aura, without mention of intractable migraine without mention of status migrainosus Low blood sugar Hypoglycemia, unspecified Prediabetes Other abnormal glucose Acquired hypothyroidism Unspecified hypothyroidism Essential hypertension Unspecified essential hypertension [place] Anxiety- Primary Anxiety state, unspecified Mixed hyperlipidemia Nausea Nausea alone Essential hypertension with goal blood pressure less than 140/90 Recurrent major depression in partial remission (HCC) Major depressive disorder, recurrent episode, in partial or unspecified remission Acquired hypothyroidism Unspecified hypothyroidism Migraine without aura and without status migrainosus, not intractable Migraine without aura, without mention of intractable migraine without mention of status migrainosus Hypokalemia- Primary Hypopotassemia Need for vaccination Need for prophylactic vaccination and inoculation against unspecified single disease Nausea Nausea alone Essential hypertension Unspecified essential hypertension Acquired hypothyroidism Unspecified hypothyroidism Lymph node enlargement Enlargement of lymph nodes Suprapubic pain, acute Abdominal pain, other specified site [facility]* Diagnosis Migraines- Primary Migraine, unspecified, without mention of intractable migraine without mention of status migrainosus Hypothyroidism Unspecified hypothyroidism Hypertension Unspecified essential hypertension Anxiety Anxiety state, unspecified Hyperlipidemia Other and unspecified hyperlipidemia Vitamin B 12 deficiency Other B-complex deficiencies Vitamin D deficiency Unspecified vitamin D deficiency Migraine without aura and without status migrainosus, not intractable- Primary Migraine without aura, without mention of intractable migraine without mention of status migrainosus Low blood sugar Hypoglycemia, unspecified Prediabetes Other abnormal glucose Acquired hypothyroidism Unspecified hypothyroidism Essential hypertension Unspecified essential hypertension [place] Anxiety- Primary Anxiety state, unspecified Mixed hyperlipidemia Nausea Nausea alone Essential hypertension with goal blood pressure less than 140/90 Recurrent major depression in partial remission (HCC) Major depressive disorder, recurrent episode, in partial or unspecified remission Acquired hypothyroidism Unspecified hypothyroidism Migraine without aura and without status migrainosus, not intractable Migraine without aura, without mention of intractable migraine without mention of status migrainosus Hypokalemia- Primary Hypopotassemia Need for vaccination Need for prophylactic vaccination and inoculation against unspecified single disease Nausea Nausea alone Essential hypertension Unspecified essential hypertension Acquired hypothyroidism Unspecified hypothyroidism Lymph node enlargement Enlargement of lymph nodes Suprapubic pain, acute- Primary Abdominal pain, other specified site Urinary frequency Iron deficiency Iron deficiency anemia, unspecified Chronic constipation Unspecified constipation Suprapubic pain, acute Abdominal pain, other specified site [facility]* Diagnosis Migraines- Primary Migraine, unspecified, without mention of intractable migraine without mention of status migrainosus Hypothyroidism Unspecified hypothyroidism Hypertension Unspecified essential hypertension Anxiety Anxiety state, unspecified Hyperlipidemia Other and unspecified hyperlipidemia Vitamin B 12 deficiency Other B-complex deficiencies Vitamin D deficiency Unspecified vitamin D deficiency Migraine without aura and without status migrainosus, not intractable- Primary Migraine without aura, without mention of intractable migraine without mention of status migrainosus Low blood sugar Hypoglycemia, unspecified Prediabetes Other abnormal glucose Acquired hypothyroidism Unspecified hypothyroidism Essential hypertension Unspecified essential hypertension [place] Anxiety- Primary Anxiety state, unspecified Mixed hyperlipidemia Nausea Nausea alone Essential hypertension with goal blood pressure less than 140/90 Recurrent major depression in partial remission (HCC) Major depressive disorder, recurrent episode, in partial or unspecified remission Acquired hypothyroidism Unspecified hypothyroidism Migraine without aura and without status migrainosus, not intractable Migraine without aura, without mention of intractable migraine without mention of status migrainosus Hypokalemia- Primary Hypopotassemia Need for vaccination Need for prophylactic vaccination and inoculation against unspecified single disease Nausea Nausea alone Essential hypertension Unspecified essential hypertension Acquired hypothyroidism Unspecified hypothyroidism Lymph node enlargement Enlargement of lymph nodes Essential hypertension- Primary Unspecified essential hypertension Acquired hypothyroidism Unspecified hypothyroidism Gastroesophageal reflux disease without esophagitis Esophageal reflux Migraine without aura and without status migrainosus, not intractable Migraine without aura, without mention of intractable migraine without mention of status migrainosus Moderate episode of recurrent major depressive disorder (HCC) CRISTINO (generalized anxiety disorder) Generalized anxiety disorder Class 1 obesity due to excess calories with body mass index (BMI) of 34.0 to 34.9 in adult, unspecified whether serious comorbidity present Tinea corporis Dermatophytosis of the body Encounter for immunization Need for other specified prophylactic vaccination against single bacterial disease [facility] Diagnosis Migraines- Primary Migraine, unspecified, without mention of intractable migraine without mention of status migrainosus Hypothyroidism Unspecified hypothyroidism Hypertension Unspecified essential hypertension Anxiety Anxiety state, unspecified Hyperlipidemia Other and unspecified hyperlipidemia Vitamin B 12 deficiency Other B-complex deficiencies Vitamin D deficiency Unspecified vitamin D deficiency Migraine without aura and without status migrainosus, not intractable- Primary Migraine without aura, without mention of intractable migraine without mention of status migrainosus Low blood sugar Hypoglycemia, unspecified Prediabetes Other abnormal glucose Acquired hypothyroidism Unspecified hypothyroidism Essential hypertension Unspecified essential hypertension [place] Anxiety- Primary Anxiety state, unspecified Mixed hyperlipidemia Nausea Nausea alone Essential hypertension with goal blood pressure less than 140/90 Recurrent major depression in partial remission (HCC) Major depressive disorder, recurrent episode, in partial or unspecified remission Acquired hypothyroidism Unspecified hypothyroidism Migraine without aura and without status migrainosus, not intractable Migraine without aura, without mention of intractable migraine without mention of status migrainosus Hypokalemia- Primary Hypopotassemia Need for vaccination Need for prophylactic vaccination and inoculation against unspecified single disease Nausea Nausea alone Essential hypertension Unspecified essential hypertension Acquired hypothyroidism Unspecified hypothyroidism Lymph node enlargement Enlargement of lymph nodes Abnormal finding on breast imaging Other (abnormal) findings on radiological examination of breast Pseudoangiomatous stromal hyperplasia of breast Hypertrophy of breast documented in this encounter [facility] note* Diagnosis Migraines- Primary Migraine, unspecified, without mention of intractable migraine without mention of status migrainosus Hypothyroidism Unspecified hypothyroidism Hypertension Unspecified essential hypertension Anxiety Anxiety state, unspecified Hyperlipidemia Other and unspecified hyperlipidemia Vitamin B 12 deficiency Other B-complex deficiencies Vitamin D deficiency Unspecified vitamin D deficiency Migraine without aura and without status migrainosus, not intractable- Primary Migraine without aura, without mention of intractable migraine without mention of status migrainosus Low blood sugar Hypoglycemia, unspecified Prediabetes Other abnormal glucose Acquired hypothyroidism Unspecified hypothyroidism Essential hypertension Unspecified essential hypertension [place] Anxiety- Primary Anxiety state, unspecified Mixed hyperlipidemia Nausea Nausea alone Essential hypertension with goal blood pressure less than 140/90 Recurrent major depression in partial remission (HCC) Major depressive disorder, recurrent episode, in partial or unspecified remission Acquired hypothyroidism Unspecified hypothyroidism Migraine without aura and without status migrainosus, not intractable Migraine without aura, without mention of intractable migraine without mention of status migrainosus Hypokalemia- Primary Hypopotassemia Need for vaccination Need for prophylactic vaccination and inoculation against unspecified single disease Nausea Nausea alone Essential hypertension Unspecified essential hypertension Acquired hypothyroidism Unspecified hypothyroidism Lymph node enlargement Enlargement of lymph nodes Abnormal finding on breast imaging Other (abnormal) findings on radiological examination of breast Pseudoangiomatous stromal hyperplasia of breast Hypertrophy of breast documented in this encounter [facility] note* Diagnosis Migraines- Primary Migraine, unspecified, without mention of intractable migraine without mention of status migrainosus Hypothyroidism Unspecified hypothyroidism Hypertension Unspecified essential hypertension Anxiety Anxiety state, unspecified Hyperlipidemia Other and unspecified hyperlipidemia Vitamin B 12 deficiency Other B-complex deficiencies Vitamin D deficiency Unspecified vitamin D deficiency Migraine without aura and without status migrainosus, not intractable- Primary Migraine without aura, without mention of intractable migraine without mention of status migrainosus Low blood sugar Hypoglycemia, unspecified Prediabetes Other abnormal glucose Acquired hypothyroidism Unspecified hypothyroidism Essential hypertension Unspecified essential hypertension [place] Anxiety- Primary Anxiety state, unspecified Mixed hyperlipidemia Nausea Nausea alone Essential hypertension with goal blood pressure less than 140/90 Recurrent major depression in partial remission (HCC) Major depressive disorder, recurrent episode, in partial or unspecified remission Acquired hypothyroidism Unspecified hypothyroidism Migraine without aura and without status migrainosus, not intractable Migraine without aura, without mention of intractable migraine without mention of status migrainosus Hypokalemia- Primary Hypopotassemia Need for vaccination Need for prophylactic vaccination and inoculation against unspecified single disease Nausea Nausea alone Essential hypertension Unspecified essential hypertension Acquired hypothyroidism Unspecified hypothyroidism Lymph node enlargement Enlargement of lymph nodes Hiatal hernia- Primary Diaphragmatic hernia without mention of obstruction or gangrene Gastroesophageal reflux disease, unspecified whether esophagitis present documented in this encounter [facility] note* Diagnosis Migraines- Primary Migraine, unspecified, without mention of intractable migraine without mention of status migrainosus Hypothyroidism Unspecified hypothyroidism Hypertension Unspecified essential hypertension Anxiety Anxiety state, unspecified Hyperlipidemia Other and unspecified hyperlipidemia Vitamin B 12 deficiency Other B-complex deficiencies Vitamin D deficiency Unspecified vitamin D deficiency Migraine without aura and without status migrainosus, not intractable- Primary Migraine without aura, without mention of intractable migraine without mention of status migrainosus Low blood sugar Hypoglycemia, unspecified Prediabetes Other abnormal glucose Acquired hypothyroidism Unspecified hypothyroidism Essential hypertension Unspecified essential hypertension Scabies Anxiety- Primary Anxiety state, unspecified Mixed hyperlipidemia Nausea Nausea alone Essential hypertension with goal blood pressure less than 140/90 Recurrent major depression in partial remission Major depressive disorder, recurrent episode, in partial or unspecified remission Acquired hypothyroidism Unspecified hypothyroidism Migraine without aura and without status migrainosus, not intractable Migraine without aura, without mention of intractable migraine without mention of status migrainosus Hypokalemia- Primary Hypopotassemia Need for vaccination Need for prophylactic vaccination and inoculation against unspecified single disease Nausea Nausea alone Essential hypertension Unspecified essential hypertension Acquired hypothyroidism Unspecified hypothyroidism Lymph node enlargement Enlargement of lymph nodes Encounter for screening mammogram for breast cancer documented in this encounter [facility] note* Diagnosis Migraines- Primary Migraine, unspecified, without mention of intractable migraine without mention of status migrainosus Hypothyroidism Unspecified hypothyroidism Hypertension Unspecified essential hypertension Anxiety Anxiety state, unspecified Hyperlipidemia Other and unspecified hyperlipidemia Vitamin B 12 deficiency Other B-complex deficiencies Vitamin D deficiency Unspecified vitamin D deficiency Migraine without aura and without status migrainosus, not intractable- Primary Migraine without aura, without mention of intractable migraine without mention of status migrainosus Low blood sugar Hypoglycemia, unspecified Prediabetes Other abnormal glucose Acquired hypothyroidism Unspecified hypothyroidism Essential hypertension Unspecified essential hypertension Scabies Anxiety- Primary Anxiety state, unspecified Mixed hyperlipidemia Nausea Nausea alone Essential hypertension with goal blood pressure less than 140/90 Recurrent major depression in partial remission Major depressive disorder, recurrent episode, in partial or unspecified remission Acquired hypothyroidism Unspecified hypothyroidism Migraine without aura and without status migrainosus, not intractable Migraine without aura, without mention of intractable migraine without mention of status migrainosus Hypokalemia- Primary Hypopotassemia Need for vaccination Need for prophylactic vaccination and inoculation against unspecified single disease Nausea Nausea alone Essential hypertension Unspecified essential hypertension Acquired hypothyroidism Unspecified hypothyroidism Lymph node enlargement Enlargement of lymph nodes Encounter for screening colonoscopy- Primary Special screening for malignant neoplasms, colon Hiatal hernia Diaphragmatic hernia without mention of obstruction or gangrene Gastroesophageal reflux disease, unspecified whether esophagitis present [facility] Diagnosis Migraines- Primary Migraine, unspecified, without mention of intractable migraine without mention of status migrainosus Hypothyroidism Unspecified hypothyroidism Hypertension Unspecified essential hypertension Anxiety Anxiety state, unspecified Hyperlipidemia Other and unspecified hyperlipidemia Vitamin B 12 deficiency Other B-complex deficiencies Vitamin D deficiency Unspecified vitamin D deficiency Migraine without aura and without status migrainosus, not intractable- Primary Migraine without aura, without mention of intractable migraine without mention of status migrainosus Low blood sugar Hypoglycemia, unspecified Prediabetes Other abnormal glucose Acquired hypothyroidism Unspecified hypothyroidism Essential hypertension Unspecified essential hypertension Scabies Anxiety- Primary Anxiety state, unspecified Mixed hyperlipidemia Nausea Nausea alone Essential hypertension with goal blood pressure less than 140/90 Recurrent major depression in partial remission Major depressive disorder, recurrent episode, in partial or unspecified remission Acquired hypothyroidism Unspecified hypothyroidism Migraine without aura and without status migrainosus, not intractable Migraine without aura, without mention of intractable migraine without mention of status migrainosus Hypokalemia- Primary Hypopotassemia Need for vaccination Need for prophylactic vaccination and inoculation against unspecified single disease Nausea Nausea alone Essential hypertension Unspecified essential hypertension Acquired hypothyroidism Unspecified hypothyroidism Lymph node enlargement Enlargement of lymph nodes Grief- Primary Adjustment disorder with depressed mood Moderate episode of recurrent major depressive disorder (HCC) CRISTINO (generalized anxiety disorder) Generalized anxiety disorder documented in this encounter [facility] note* Diagnosis Migraines- Primary Migraine, unspecified, without mention of intractable migraine without mention of status migrainosus Hypothyroidism Unspecified hypothyroidism Hypertension Unspecified essential hypertension Anxiety Anxiety state, unspecified Hyperlipidemia Other and unspecified hyperlipidemia Vitamin B 12 deficiency Other B-complex deficiencies Vitamin D deficiency Unspecified vitamin D deficiency Migraine without aura and without status migrainosus, not intractable- Primary Migraine without aura, without mention of intractable migraine without mention of status migrainosus Low blood sugar Hypoglycemia, unspecified Prediabetes Other abnormal glucose Acquired hypothyroidism Unspecified hypothyroidism Essential hypertension Unspecified essential hypertension Scabies Anxiety- Primary Anxiety state, unspecified Mixed hyperlipidemia Nausea Nausea alone Essential hypertension with goal blood pressure less than 140/90 Recurrent major depression in partial remission Major depressive disorder, recurrent episode, in partial or unspecified remission Acquired hypothyroidism Unspecified hypothyroidism Migraine without aura and without status migrainosus, not intractable Migraine without aura, without mention of intractable migraine without mention of status migrainosus Hypokalemia- Primary Hypopotassemia Need for vaccination Need for prophylactic vaccination and inoculation against unspecified single disease Nausea Nausea alone Essential hypertension Unspecified essential hypertension Acquired hypothyroidism Unspecified hypothyroidism Lymph node enlargement Enlargement of lymph nodes Vaginal burning- Primary Other specified symptom associated with female genital organs [facility]* Diagnosis Migraines- Primary Migraine, unspecified, without mention of intractable migraine without mention of status migrainosus Hypothyroidism Unspecified hypothyroidism Hypertension Unspecified essential hypertension Anxiety Anxiety state, unspecified Hyperlipidemia Other and unspecified hyperlipidemia Vitamin B 12 deficiency Other B-complex deficiencies Vitamin D deficiency Unspecified vitamin D deficiency Migraine without aura and without status migrainosus, not intractable- Primary Migraine without aura, without mention of intractable migraine without mention of status migrainosus Low blood sugar Hypoglycemia, unspecified Prediabetes Other abnormal glucose Acquired hypothyroidism Unspecified hypothyroidism Essential hypertension Unspecified essential hypertension Scabies Anxiety- Primary Anxiety state, unspecified Mixed hyperlipidemia Nausea Nausea alone Essential hypertension with goal blood pressure less than 140/90 Recurrent major depression in partial remission Major depressive disorder, recurrent episode, in partial or unspecified remission Acquired hypothyroidism Unspecified hypothyroidism Migraine without aura and without status migrainosus, not intractable Migraine without aura, without mention of intractable migraine without mention of status migrainosus Hypokalemia- Primary Hypopotassemia Need for vaccination Need for prophylactic vaccination and inoculation against unspecified single disease Nausea Nausea alone Essential hypertension Unspecified essential hypertension Acquired hypothyroidism Unspecified hypothyroidism Lymph node enlargement Enlargement of lymph nodes Encounter for gynecological examination (general) (routine) without abnormal findings- Primary Vaginal discharge Leukorrhea, not specified as infective Screening for cervical cancer Screening for malignant neoplasm of the cervix Encounter for screening for human papillomavirus (HPV) Special screening examination for human papillomavirus (HPV) Screen for STD (sexually transmitted disease) Screening examination for venereal disease Encounter for screening mammogram for breast cancer Category 3 mammography result with short follow-up interval suggested for probably benign finding Inconclusive mammogram documented in this encounter [facility] note* Diagnosis Migraines- Primary Migraine, unspecified, without mention of intractable migraine without mention of status migrainosus Hypothyroidism Unspecified hypothyroidism Hypertension Unspecified essential hypertension Anxiety Anxiety state, unspecified Hyperlipidemia Other and unspecified hyperlipidemia Vitamin B 12 deficiency Other B-complex deficiencies Vitamin D deficiency Unspecified vitamin D deficiency Migraine without aura and without status migrainosus, not intractable- Primary Migraine without aura, without mention of intractable migraine without mention of status migrainosus Low blood sugar Hypoglycemia, unspecified Prediabetes Other abnormal glucose Acquired hypothyroidism Unspecified hypothyroidism Essential hypertension Unspecified essential hypertension Scabies Anxiety- Primary Anxiety state, unspecified Mixed hyperlipidemia Nausea Nausea alone Essential hypertension with goal blood pressure less than 140/90 Recurrent major depression in partial remission Major depressive disorder, recurrent episode, in partial or unspecified remission Acquired hypothyroidism Unspecified hypothyroidism Migraine without aura and without status migrainosus, not intractable Migraine without aura, without mention of intractable migraine without mention of status migrainosus Hypokalemia- Primary Hypopotassemia Need for vaccination Need for prophylactic vaccination and inoculation against unspecified single disease Nausea Nausea alone Essential hypertension Unspecified essential hypertension Acquired hypothyroidism Unspecified hypothyroidism Lymph node enlargement Enlargement of lymph nodes Depression, unspecified depression type Migraine without aura and without status migrainosus, not intractable Migraine without aura, without mention of intractable migraine without mention of status migrainosus documented in this encounter [facility] note* Diagnosis Migraines- Primary Migraine, unspecified, without mention of intractable migraine without mention of status migrainosus Hypothyroidism Unspecified hypothyroidism Hypertension Unspecified essential hypertension Anxiety Anxiety state, unspecified Hyperlipidemia Other and unspecified hyperlipidemia Vitamin B 12 deficiency Other B-complex deficiencies Vitamin D deficiency Unspecified vitamin D deficiency Migraine without aura and without status migrainosus, not intractable- Primary Migraine without aura, without mention of intractable migraine without mention of status migrainosus Low blood sugar Hypoglycemia, unspecified Prediabetes Other abnormal glucose Acquired hypothyroidism Unspecified hypothyroidism Essential hypertension Unspecified essential hypertension Scabies Anxiety- Primary Anxiety state, unspecified Mixed hyperlipidemia Nausea Nausea alone Essential hypertension with goal blood pressure less than 140/90 Recurrent major depression in partial remission Major depressive disorder, recurrent episode, in partial or unspecified remission Acquired hypothyroidism Unspecified hypothyroidism Migraine without aura and without status migrainosus, not intractable Migraine without aura, without mention of intractable migraine without mention of status migrainosus Hypokalemia- Primary Hypopotassemia Need for vaccination Need for prophylactic vaccination and inoculation against unspecified single disease Nausea Nausea alone Essential hypertension Unspecified essential hypertension Acquired hypothyroidism Unspecified hypothyroidism Lymph node enlargement Enlargement of lymph nodes Moderate episode of recurrent major depressive disorder (HCC) CRISTINO (generalized anxiety disorder) Generalized anxiety disorder [facility] Diagnosis Migraines- Primary Migraine, unspecified, without mention of intractable migraine without mention of status migrainosus Hypothyroidism Unspecified hypothyroidism Hypertension Unspecified essential hypertension Anxiety Anxiety state, unspecified Hyperlipidemia Other and unspecified hyperlipidemia Vitamin B 12 deficiency Other B-complex deficiencies Vitamin D deficiency Unspecified vitamin D deficiency Migraine without aura and without status migrainosus, not intractable- Primary Migraine without aura, without mention of intractable migraine without mention of status migrainosus Low blood sugar Hypoglycemia, unspecified Prediabetes Other abnormal glucose Acquired hypothyroidism Unspecified hypothyroidism Essential hypertension Unspecified essential hypertension Scabies Anxiety- Primary Anxiety state, unspecified Mixed hyperlipidemia Nausea Nausea alone Essential hypertension with goal blood pressure less than 140/90 Recurrent major depression in partial remission Major depressive disorder, recurrent episode, in partial or unspecified remission Acquired hypothyroidism Unspecified hypothyroidism Migraine without aura and without status migrainosus, not intractable Migraine without aura, without mention of intractable migraine without mention of status migrainosus Hypokalemia- Primary Hypopotassemia Need for vaccination Need for prophylactic vaccination and inoculation against unspecified single disease Nausea Nausea alone Essential hypertension Unspecified essential hypertension Acquired hypothyroidism Unspecified hypothyroidism Lymph node enlargement Enlargement of lymph nodes Seasonal allergic rhinitis, unspecified trigger [facility] Outpatient Procedure (Routine) - Closed Specialty Diagnoses / Procedures Referred By Giovani t Referred To Contact [facility] Diagnoses Screening for colon cancer Screening for malignant neoplasm of the rectum Procedures COLONOSCOPY SCREENING COLONOSCOPY FLX DX W/COLLJ SPEC WHEN PFRMD PodlogLydia burt APRN.FONDANT COOKER [address] [place] [address] [facility] [address] [place] [address] Referral ID Status Reason Start Date Expiration Date V isits Requested Visits Authorized [id number] Closed Auto-Generate d Referral 10/19/2021 10/19/2022 1 1 [facility] for referral (narrative)* Diagnostic Procedure Only (Routine) - Authorized Specialty Diagnoses / Procedures Referred By Contac t Referred To Contact [facility] Diagnoses Nausea Procedures NM HEPATOBILIARY W EF AND/OR RX HEPATOBIL SYST IMAG INC GB W/PHARMA INTERVKirk Fitzgerald MD [address] [place] [address] Molecular & Functional Imaging [address] [place] [address] Referral ID Status Reason Start Date Expiration Date Visits Requested Visits Authorized [id number] Authorized Auto-Generat ed Referral 12/06/2021 01/05/2023 1 1 [facility] for referral (narrative)* Diagnostic Procedure Only (Routine) - Closed Specialty Diagnoses / Procedures Referred By Contac t Referred To Contact [facility] Diagnoses Nausea Procedures NM HEPATOBILIARY W EF AND/OR RX HEPATOBIL SYST IMAG INC GB W/PHARMA INTERVKirk Fitzgerald MD [address] [place] [address] Molecular & Functional Imaging [address] [place] [address] Referral ID Status Reason Start Date Expiration Date V isits Requested Visits Authorized [id number] Closed Auto-Generate d Referral 12/06/2021 01/05/2023 1 1 [facility] for referral (narrative)* Diagnostic Procedure Only (Routine) - Authorized Specialty Diagnoses / Procedures Referred By Contac t Referred To Contact [facility] Diagnoses Epigastric pain Nausea Procedures US ABD RT UPPER QUADRANT US ABDOMINAL REAL TIME W/IMAGE LIMITED Kirk Cast MD [address] [place] [address] [facility] Referral ID Status Reason Start Date Expiration Date Visits Requested Visits Authorized [id number] Authorized Auto-Generat ed Referral 12/13/2021 01/12/2023 1 1 * Outpatient Procedure (Routine) - Authorized Specialty Diagnoses / Procedures Referred By Contac t Referred To Contact [facility] Diagnoses Epigastric pain Nausea Procedures EGD DIAGNOSTIC ESOPHAGOGASTRODUODENOSC OPY TRANSORAL DIAGNOSTIC Kirk Cast MD [address] [place] [address] [facility] [place] [address] [place] [address] Referral ID Status Reason Start Date Expiration Date Visits Requested Visits Authorized [id number] Authorized Auto-Generat ed Referral 12/13/2021 12/13/2022 1 1 [facility] for referral (narrative)* Diagnostic Procedure Only (Urgent) - Closed Specialty Diagnoses / Procedures Referred By Contac t Referred To Contact XR IMAGING Diagnoses Right wrist pain Procedures XR WRIST INJURY 4V PA/LAT/OBL/SCAPH RIGHT RADEX WRIST COMPLETE MINIMUM 3 VIEWS Dani Burgos APRN.[employer]ONDANT COOKER [address] [place] [address] Xr Imaging Referral ID Status Reason Start Date Expiration Date V isits Requested Visits Authorized [id number] Closed Auto-Generate d Referral 01/03/2022 02/02/2023 1 1 [facility] for referral (narrative)* Diagnostic Procedure Only (Routine) - Authorized Specialty Diagnoses / Procedures Referred By Contac t Referred To Contact [facility] Diagnoses Encounter for screening mammogram for breast cancer Procedures PARTH SCREENING SCREENING MAMMOGRAPHY BI 2-VIEW BREAST INC CAD Lydia Gonzalez MAMMOGRAPHY TECHNICIAN.[employer] [address] [place] [address] [facility] [address] [place] [address] Referral ID Status Reason Start Date Expiration Date Visits Requested Visits Authorized [id number] Authorized Auto-Generat ed Referral 08/15/2022 09/14/2023 1 1 [facility] for referral (narrative)* Diagnostic Procedure Only (Routine) - Closed Specialty Diagnoses / Procedures Referred By Contac t Referred To Contact XR IMAGING Diagnoses Sprain of ligament of right ankle, subsequent encounter Procedures XR ANKLE GENERAL 3V AP/LAT/OBL RIGHT RADEX ANKLE COMPLETE MINIMUM 3 VIEWS Leny Hsu MD [address] [place] [id number] Xr Imaging Referral ID Status Reason Start Date Expiration Date V isits Requested Visits Authorized [id number] Closed Auto-Generate d Referral 08/30/2022 09/29/2023 1 1 [facility] for referral (narrative)* Outpatient Procedure (Routine) - Pending Review Specialty Diagnoses / Procedures [facility] Diagnoses Syncope and collapse Procedures ECG COMPLETE ECG ROUTINE ECG W/LEAST 12 LDS W/I&R Leny Hsu MD [address] [place] [id number] [facility] [place] [address] [place] [address] Referral ID Status Reason Start Date Expiration Date Visits Requested Visits Authorized [id number] Pending Review Auto-Generat ed Referral 12/13/2022 12/13/2023 1 1 [facility] for referral (narrative)* Outpatient Procedure (Routine) - Authorized Specialty Diagnoses / Procedures Referred By Contac t Referred To Contact [facility] Diagnoses Claudication (HCC) Procedures PVR ANK PRESS AMELIA [facility] LAB NON-INVAS PHYSIOLOGIC STD EXTREMITY ART 2 LEVEL Leny Hsu MD [address] [place] [id number] [facility] [place] [address] [place] [address] Referral ID Status Reason Start Date Expiration Date Visits Requested Visits Authorized [id number] Authorized Auto-Generat ed Referral 03/16/2023 03/15/2024 1 1 [facility] for referral (narrative)* Outpatient Procedure (Routine) - Pending Review Specialty Diagnoses / Procedures Referred By Contac t Referred To Contact [facility] Diagnoses Fatty metamorphosis of liver Procedures DDI VIBRATION CONTROLLED TRANSIENT ELASTOGRAPHY (VCTE) LIVER ELASTOGRAPHY W/O IMAG W/I&R Nicole Solano PA-C [address] [place] [address] [facility] [address] [address] Referral ID Status Reason Start Date Expiration Date Visits Requested Visits Authorized [id number] Pending Review Auto-Generat ed Referral 3 04/18/2024 1 1 * Diagnostic Procedure Only (Routine) - Pending Review Specialty Diagnoses / Procedures Referred By Sundayac t Referred To Contact XR IMAGING Diagnoses Irritable bowel syndrome with both constipation and diarrhea Procedures XR ABDOMEN 1V SUPINE RADIOLOGIC EXAM ABDOMEN 1 VIEW Nicole Solano PA-C [address] [facility] [place] [address] [place] [address] Referral ID Status Reason Start Date Expiration Date Visits Requested Visits Authorized [id number] Pending Review Auto-Generat ed Referral 3 05/17/2024 1 1 * Diagnostic Procedure Only (Routine) - Authorized Specialty Diagnoses / Procedures Referred By Contac t Referred To Contact [facility] IMAG[facility] Diagnoses Esophageal dysphagia Procedures XR ESOPHAGRAM RADIOLOGIC EXAM ESOPHAGUS SINGLE CONTRAST STUDY Nicole Solano PA-C [address] [facility] [place] [address] [place] [address] Referral ID Status Reason Start Date Expiration Date Visits Requested Visits Authorized [id number] Authorized Auto-Generat ed Referral 05/17/2024 1 1 [facility] for referral (narrative)* Diagnostic Procedure Only (Routine) - Closed Specialty Diagnoses / Procedures Referred By Contac t Referred To Contact [facility]AG[facility] Diagnoses Esophageal dysphagia Procedures XR ESOPHAGRAM RADIOLOGIC EXAM ESOPHAGUS SINGLE CONTRAST STUDY Nicole Solano PA-C [address] [place] [address] [place] [address] Referral ID Status Reason Start Date Expiration Date V isits Requested Visits Authorized [id number] Closed Auto-Generate d Referral 04/18/2023 05/17/2024 1 1 [facility] for referral (narrative)* Diagnostic Procedure Only (Routine) - Closed Specialty Diagnoses / Procedures Referred By Contac t Referred To Contact [facility] Diagnoses Inconclusive mammogram Procedures US BREAST LTD LT US BREAST UNI REAL TIME WITH IMAGE LIMITED Bradley Mcmullen APRN.CNP [address], [place] [address] [facility] [address] [place] [address] Referral ID Status Reason Start Date Expiration Date V isits Requested Visits Authorized [id number] Closed Auto-Generate d Referral 09/05/2022 10/05/2023 1 1 [facility] for referral (narrative)* Diagnostic Procedure Only (Routine) - Pending Review Specialty Diagnoses / Procedures Referred By Contac t Referred To Contact [facility] Diagnoses Abnormal mammogram Procedures US BIOPSY BREAST LEFT BX BREAST W/DEVICE 1ST LESION ULTRASOUND GUID Kirk Cast MD [address] [place] [address] [facility] [address] [place] [address] Referral ID Status Reason Start Date Expiration Date Visits Requested Visits Authorized [id number] Pending Review Auto-Generat ed Referral 08/13/2023 09/11/2024 1 1 [facility] for referral (narrative)* Diagnostic Procedure Only (Routine) - Closed Specialty Diagnoses / Procedures Referred By Giovani mercer Referred To Contact [facility] Diagnoses Abnormal mammogram Procedures US BIOPSY BREAST LEFT BX BREAST W/DEVICE 1ST LESION ULTRASOUND GUID Kirk Cast MD [address] [place] [address] [facility] [address] [place] [address] Referral ID Status Reason Start Date Expiration Date V isits Requested Visits Authorized [id number] Closed Auto-Generate d Referral 08/13/2023 09/11/2024 1 1 [facility] for referral (narrative)* Diagnostic Procedure Only (Routine) - Pending Review Specialty Diagnoses / Procedures Referred By Giovani mercer Referred To Contact [facility] Diagnoses 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 Procedures [facility] DI[facility]NOSTIC LEFT DIAGNOSTIC MAMMOGRAPHY COMPUTER-AIDED DETCJ UNI Jordin Dickerson MD [address] [address] [facility] [address] [place] [address] Referral ID Status Reason Start Date Expiration Date Visits Requested Visits Authorized [id number] Pending Review Auto-Generat ed Referral 03/22/2024 10/19/2024 1 1 * Diagnostic Procedure Only (Routine) - Pending Review Specialty Diagnoses / Procedures Referred By Giovani mercer Referred To Contact [facility] Diagnoses 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 Procedures US BREAST LTD LEFT US BREAST UNI REAL TIME WITH IMAGE LIMITED Jordin Dickerson MD [address] [address] [facility] [address] [place] [address] Referral ID Status Reason Start Date Expiration Date Visits Requested Visits Authorized [id number] Pending Review Auto-Generat ed Referral 03/22/2024 10/19/2024 1 1 [facility] for referral (narrative)* Outpatient Procedure (Urgent) - Pending Review Specialty Diagnoses / Procedures Referred By Contac t Referred To Contact [facility] Diagnoses Other chest pain Procedures ECHO ECHO TTHRC R-T 2D W/WOM-MODE COMPL SPE[place] [address] [place] [address] [address] Referral ID Status Reason Start Date Expiration Date Visits Requested Visits Authorized [id number] Pending Review Auto-Generat ed Referral 01/02/2024 01/01/2025 1 1 * Outpatient Procedure (Urgent) - Pending Review Specialty Diagnoses / Procedures Referred By Contac t Referred To Contact [facility] Diagnoses Other chest pain Procedures EXERCISE STRESS ECG (WITHOUT IMAGING) Leny Hsu MD [facility] [place] [address] [address] Referral ID Status Reason Start Date Expiration Date Visits Requested Visits Authorized [id number] Pending Review Auto-Generat ed Referral 01/02/2024 01/01/2025 1 1 * Outpatient Procedure (Routine) - Pending Review Specialty Diagnoses / Procedures Referred By Contac t Referred To Contact [facility] Diagnoses Other chest pain Procedures ECG COMPLETE ECG ROUTINE ECG W/LEAST 12 LDS W/I&R Leny Hsu MD [address] [place] [address] [facility] [address] [place] [address] Referral ID Status Reason Start Date Expiration Date Visits Requested Visits Authorized [id number] Pending Review Auto-Generat ed Referral 01/02/2024 01/01/2025 1 1 [facility] for referral (narrative)* Diagnostic Procedure Only (Routine) - Authorized Specialty Diagnoses / Procedures Referred By Contac t Referred To Contact [facility] Diagnoses Acquired hypothyroidism Enlarged thyroid Procedures US THYROID/PARATHYROID US SOFT TISSUE HEAD & NECK REAL TIME IMGE Leny Garvin MD [address] [place] [address] [place] [address] Referral ID Status Reason Start Date Expiration Date Visits Requested Visits Authorized [id number] Authorized Auto-Generat ed Referral 01/14/2024 02/12/2025 1 1 T [facility] for referral (narrative)* Diagnostic Procedure Only (Routine) - Closed Specialty Diagnoses / Procedures Referred By Contac t Referred To Contact X[facility] Diagnoses Sprain of ligament of right ankle, subsequent encounter Procedures XR ANKLE GENERAL 3V AP/LAT/OBL RIGHT RADEX ANKLE COMPLETE MINIMUM 3 VIEWS Leny Hsu MD [address] [place] [address] [place] [address] Referral ID Status Reason Start Date Expiration Date V isits Requested Visits Authorized [id number] Closed Auto-Generate d Referral 08/30/2022 09/29/2023 1 1 [facility] for referral (narrative)* Diagnostic Procedure Only (Urgent) - Closed Specialty Diagnoses / Procedures Referred By Contac t Referred To Contact X[facility] IM[facility] Diagnoses Right wrist pain Procedures XR WRIST INJURY 4V PA/LAT/OBL/SCAPH RIGHT RADEX WRIST COMPLETE MINIMUM 3 VIEWS Dani Burgos, MAMMOGRAPHY TECHNICIAN.[employer]ONDANT COOKER [address] [place] [address] [place] [address] Referral ID Status Reason Start Date Expiration Date V isits Requested Visits Authorized [id number] Closed Auto-Generate d Referral 01/03/2022 02/02/2023 1 1 [facility] for referral (narrative)* Diagnostic Procedure Only (Routine) - Closed Specialty Diagnoses / Procedures Referred By Contac t Referred To Contact XR IMAGING Diagnoses Neck pain Procedures XR CERV OTHER 4V AP/LAT/OBL RADEX SPINE CERVICAL 4 OR 5 VIEWS PodlogLydia burt APRN.FONDANT COOKER [address] [place] [address] [place] [address] Referral ID Status Reason Start Date Expiration Date V isits Requested Visits Authorized [id number] Closed Auto-Generate d Referral 09/19/2021 10/19/2022 1 1 * Diagnostic Procedure Only (Routine) - Closed Specialty Diagnoses / Procedures Referred By Contac t Referred To Contact XR IMAGING Diagnoses Acute pain of right shoulder Procedures XR SHOULDER GENERAL 3V OR MORE AP/TRUE AP/OTHER RIGHT RADEX SHOULDER COMPLETE MINIMUM 2 VIEWS Lydia Gonzalez APRN.[employer]ONDANT COOKER [address] [place] [address] [place] [address] Referral ID Status Reason Start Date Expiration Date V isits Requested Visits Authorized [id number] Closed Auto-Generate d Referral 09/19/2021 10/19/2022 1 1 [facility] for referral (narrative)* Diagnostic Procedure Only (Urgent) - Closed Specialty Diagnoses / Procedures Referred By Contac t Referred To Contact XR IMAGING Diagnoses Right wrist injury, initial encounter Procedures XR WRIST INJURY 4V PA/LAT/OBL/SCAPH RIGHT RADEX WRIST COMPLETE MINIMUM 3 VIEWS Tri Pool APRN.FONDANT COOKER [address] [place] [address] [place] [address] Referral ID Status Reason Start Date Expiration Date V isits Requested Visits Authorized [id number] Closed Auto-Generate d Referral 08/23/2021 09/22/2022 1 1 [facility] for referral (narrative)* Diagnostic Procedure Only (Routine) - Closed Specialty Diagnoses / Procedures Referred By Contac t Referred To Contact XR IMAGING Diagnoses Suprapubic pain, acute Procedures XR ABDOMEN 1V SUPINE RADIOLOGIC EXAM ABDOMEN 1 VIEW Leny Hsu MD [address] [place] [address] [place] [address] Referral ID Status Reason Start Date Expiration Date V isits Requested Visits Authorized [id number] Closed Auto-Generate d Referral 08/06/2024 09/05/2025 1 1 [facility] for visit Narrative* Outpatient Procedure (Routine) - Closed Specialty Diagnoses / Procedures [facility] Diagnoses Screening for colon cancer Screening for malignant neoplasm of the rectum Procedures COLONOSCOPY SCREENING COLONOSCOPY FLX DX W/COLLJ SPEC WHEN PFRMD Lydia Gonzalez APRN.FONDANT COOKER [address] [place] [address] [facility] [address] [place] [id number] Referral ID Status Reason Start Date Expiration Date V isits Requested Visits Authorized [id number] Closed Auto-Generate d Referral 10/19/2021 10/19/2022 1 1 [facility] for visit Narrative* Diagnostic Procedure Only (Routine) - Closed Specialty Diagnoses / Procedures Referred By Contac t Referred To Contact XR IMAGING Diagnoses Esophageal dysphagia Procedures XR ESOPHAGRAM RADIOLOGIC EXAM ESOPHAGUS SINGLE CONTRAST STUDY Nicole Solano PA-C [address] [place] [address] [place] [address] Referral ID Status Reason Start Date Expiration Date V isits Requested Visits Authorized [id number] Closed Auto-Generate d Referral 04/18/2023 05/17/2024 1 1 [facility] for visit Narrative* Diagnostic Procedure Only (Routine) - Closed Specialty Diagnoses / Procedures Referred By Contac t Referred To Contact [facility] Diagnoses Abnormal mammogram Procedures PARTH DIAGNOSTIC LT DIAGNOSTIC MAMMOGRAPHY COMPUTER-AIDED DETCJ UNI Venus Zaidi PA-C [address] [place] [address] [facility] [address] [place] [address] Referral ID Status Reason Start Date Expiration Date V isits Requested Visits Authorized [id number] Closed Auto-Generate d Referral 09/13/2022 10/13/2023 1 1 [facility] for visit Narrative* Diagnostic Procedure Only (Routine) - Closed Specialty Diagnoses / Procedures Referred By Contac t Referred To Contact [facility] Diagnoses Abnormal mammogram Procedures US BIOPSY BREAST LEFT BX BREAST W/DEVICE 1ST LESION ULTRASOUND GUID Kirk Cast MD [address] [facility] [place] [id number] [facility] [address] [place] [address] Referral ID Status Reason Start Date Expiration Date V isits Requested Visits Authorized [id number] Closed Auto-Generate d Referral 08/13/2023 09/11/2024 1 1 [facility] for visit Narrative* Diagnostic Procedure Only (Routine) - Closed Specialty Diagnoses / Procedures Referred By Contac t Referred To Contact XR IMAGING Diagnoses Sprain of ligament of right ankle, subsequent encounter Procedures XR ANKLE GENERAL 3V AP/LAT/OBL RIGHT RADEX ANKLE COMPLETE MINIMUM 3 VIEWS Leny Hsu MD [address] [place] [address] [place] [address] Referral ID Status Reason Start Date Expiration Date V isits Requested Visits Authorized [id number] Closed Auto-Generate d Referral 08/30/2022 09/29/2023 1 1 [facility] for visit Narrative* Diagnostic Procedure Only (Urgent) - Closed Specialty Diagnoses / Procedures Referred By Contac t Referred To Contact XR IMAGING Diagnoses Right wrist pain Procedures XR WRIST INJURY 4V PA/LAT/OBL/SCAPH RIGHT RADEX WRIST COMPLETE MINIMUM 3 VIEWS Dani Burgos, MAMMOGRAPHY TECHNICIAN.FONDANT COOKER [address] [place] [address] [place] [address] Referral ID Status Reason Start Date Expiration Date V isits Requested Visits Authorized [id number] Closed Auto-Generate d Referral 01/03/2022 02/02/2023 1 1 [facility] for visit Narrative* Diagnostic Procedure Only (Routine) - Closed Specialty Diagnoses / Procedures Referred By Contac t Referred To Contact XR IMAGING Diagnoses Neck pain Procedures XR CERV OTHER 4V AP/LAT/OBL RADEX SPINE CERVICAL 4 OR 5 VIEWS Lydia Gonzalez MAMMOGRAPHY TECHNICIAN.FONDANT COOKER [address] [place] [address] [place] [address] Referral ID Status Reason Start Date Expiration Date V isits Requested Visits Authorized [id number] Closed Auto-Generate d Referral 09/19/2021 10/19/2022 1 1 [facility] for visit Narrative* Diagnostic Procedure Only (Urgent) - Closed Specialty Diagnoses / Procedures Referred By Contac t Referred To Contact XR IMAGING Diagnoses Right wrist injury, initial encounter Procedures XR WRIST INJURY 4V PA/LAT/OBL/SCAPH RIGHT RADEX WRIST COMPLETE MINIMUM 3 VIEWS Tri Pool, MAMMOGRAPHY TECHNICIAN.FONDANT COOKER [address] [place] [address] [place] [address] Referral ID Status Reason Start Date Expiration Date V isits Requested Visits Authorized [id number] Closed Auto-Generate d Referral 08/23/2021 09/22/2022 1 1 [facility] for visit Narrative* Diagnostic Procedure Only (Routine) - Closed Specialty Diagnoses / Procedures Referred By Contac t Referred To Contact XR IMAGING Diagnoses Suprapubic pain, acute Procedures XR ABDOMEN 1V SUPINE RADIOLOGIC EXAM ABDOMEN 1 VIEW Leny Hsu MD [address] [place] [address] [place] [address] Referral ID Status Reason Start Date Expiration Date V isits Requested Visits Authorized [id number] Closed Auto-Generate d Referral 08/06/2024 09/05/2025 1 1 [facility] for visit Narrative* Diagnostic Procedure Only (Routine) - Closed Specialty Diagnoses / Procedures Referred By Giovani mercer Referred To Contact [facility] Diagnoses 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 Procedures [facility] DIAGNOSTIC LEFT DIAGNOSTIC MAMMOGRAPHY COMPUTER-AIDED DETCJ [facility] Jordin Dickerson MD [address] [address] Phone: tel: fax: [facility] [address] [place] [address] Referral ID Status Reason Start Date Expiration Date V isits Requested Visits Authorized [id number] Closed Auto-Generate d Referral 03/22/2024 10/19/2024 1 1 [facility] for visit Narrative* Outpatient Procedure (Routine) - Closed Specialty Diagnoses / Procedures Referred By Giovani mercer Referred To Contact [facility] Diagnoses Hiatal hernia Gastroesophageal reflux disease, unspecified whether esophagitis present Procedures EGD DIAGNOSTIC ESOPHAGOGASTRODUODENOSC OPY TRANSORAL DIAGNOSTIC Kirk Cast MD [address] [facility] [place] [address] Phone: tel: fax: [facility] [address] [place] [address] Referral ID Status Reason Start Date Expiration Date V isits Requested Visits Authorized [id number] Closed Auto-Generate d Referral 09/29/2024 09/29/2025 1 1 [facility] Summary Purpose Family History No Family History Records Found Relationship Condition Age at Onset Recorded Date/T domenica father Malignant neoplasm Unknown Advance Directives No Advanced Directives Records FoundDocuments on File Type Date Recorded Patient Control Specialist Expl anation Advance Directive(s) 11/28/2021 8:11 AM Advance Directive(s) 11/22/2021 11:39 AM Advance Directive Response Recorded Date/ Time Advance Directives No August 10, 2016 9:04pm Living Will No May 12 6:02pm Power of Freelance Translator No May 12, 2021 6:02pm Documents on File Type Date Recorded Patient Control Specialist Expl anation Advance Directive(s) 11/28/2021 8:11 AM Advance Directive(s) 11/22/2021 11:39 AM Advance Directive Response Recorded Date/ Time Advance Directives No August 10, 2016 9:04pm Living Will No March 01 7:23pm Power of Freelance Translator No March 01, 022 7:23pm Advance Directive Response Recorded Date/ Time Advance Directives No August 10, 2016 8:04pm Living Will No August 13 3:49pm Power of Freelance Translator No August 13, 2022 3:49pm Advance Directive Response Recorded Date/ Time Advance Directives No August 10, 2016 9:04pm Living Will No October 14, 2022 4:30pm Power of Freelance Translator No October 14 4:30pm Medications Administered Section Inactive Administered Medications - up to 3 most recent administrations Medication Order MAR Action Action Date Dose Rate Site diphenhydrAMINE 12.5-50 mg injection (BENADRYL) 12.5-50 mg, INTRAVENOUS, DIRECTED, Starting on Sun11/28/21 at 1000, Until Sun11/28/21 at 1359, DOSING DIRECTED BY PHYSICIAN FOR PROCEDURAL SEDATION ONLY, Intraprocedure Given 11/28/2021 9:30 AM EDT 50 mg fentaNYL 50 mcg/mL 25-100 mcg injection (SUBLIMAZE) 25-100 mcg, INTRAVENOUS, DIRECTED, Starting on Sun11/28/21 at 1000, Until Sun11/28/21 at 1359, DOSING DIRECTED BY PHYSICIAN FOR PROCEDURAL SEDATION ONLY, Intraprocedure Given 11/28/2021 9:35 AM EDT 50 mcg Given 11/28/2021 9:28 AM EDT 50 mcg lactated ringers iv infusion 30 mL/hr, INTRAVENOUS, CONTINUOUS, Starting on Sun11/28/21 at 0900, Until Sun11/28/21 at 0954, Preprocedure New Bag/Syringe/Bottle 11/28/2021 9:00 AM EDT 30 mL/hr 30 mL/hr Hand, Right midazolam (PF) 1-5 mg injection (VERSED) 1-5 mg, INTRAVENOUS, DIRECTED, Starting on Sun11/28/21 at 1000, Until Sun11/28/21 at 1359, DOSING DIRECTED BY PHYSICIAN FOR PROCEDURAL SEDATION ONLY, Intraprocedure Given 11/28/2021 9:33 AM EDT 2 mg Given 11/28/2021 9:28 AM EDT 3 mg Inactive Administered Medications - up to 3 most recent administrations Medication Order MAR Action Action Date Dose Rate Site betamethasone acetate-betamethasone sodium phosphate 6 mg injection (CELESTONE) 6 mg, Injection - FOR ORTHO USE ONLY, ONE TIME INJECTION, 1 dose, Starting on Mary 01/12/22 at 1333, Until Mary 01/12/22 at 1333 Given 01/12/2022 1:33 PM EDT 6 mg lidocaine (PF) 10 mg/mL (1 %) 4 mL injection (XYLOCAINE) 4 mL, Injection - FOR ORTHO USE ONLY, ONE TIME INJECTION, 1 dose, Starting on Mary 01/12/22 at 1333, Until Mary 01/12/22 at 1333 Given 01/12/2022 1:33 PM EDT 4 mL Inactive Administered Medications - up to 3 most recent administrations Medication Order MAR Action Action Date Dose Rate Site PHENYLephrine 2.5 % 1 Drop (AK-DILATE, MARISELA-SYNEPHRINE) 1 Drop, BOTH EYES, ONCE, 1 dose, On Sun06/15/23 at 1500, FOR OPHTHALMIC USE ONLY PROTECT FROM LIGHT Given 06/15/2023 3:00 PM EST 1 Drop proparacaine 0.5 % 1 Drop (ALCAINE) 1 Drop, BOTH EYES, ONCE, 1 dose, On Sun06/15/23 at 1500, FOR THE EYE Given 06/15/2023 3:00 PM EST 1 Drop tropicamide 1 % 1 Drop (MYDRIACYL) 1 Drop, BOTH EYES, ONCE, 1 dose, On Sun06/15/23 at 1500, FOR THE EYE Given 06/15/2023 3:00 PM EST 1 Drop Chief Complaint and Reason for Visit Chief Complaint NECK PAIN/SHOULDER P AIN. RX HERE Chief Complaint NECK PAIN/SHOULDER P AIN. RX HERE SHOULDER Chief Complaint right ankle Chief Complaint right ankle VOMITING Reason for Referral Specialty Diagnoses / Procedures Referred By Giovani t Referred To Contact [facility] Diagnoses Acute pain of right shoulder Procedures MRI SHOULDER WO IVCON RT MRI ANY JT UPPER EXTREMITY W/O CONTRAST Leny Purvis MD [address] [place] [address] Mr Imaging Referral ID Status Reason Start Date Expiration Date V isits Requested Visits Authorized [id number] Closed Auto-Generate d Referral 12/02/2021 01/01/2023 1 1 Specialty Diagnoses / Procedures Referred By Contac t Referred To Contact Orthopedics Diagnoses Acute pain of right shoulder Procedures CONSULT TO ORTHOPAEDICS OFFICE/OUTPATIENT [facility] MDM 60-74 MINUTES Leny Hsu MD [address] [place] [address] Referral ID Status Reason Start Date Expiration Date Visits Requested Visits Authorized [id number] Pending Review PCP Requested Referral 12/21/2021 12/21/2022 1 1 Specialty Diagnoses / Procedures Referred By Contac t Referred To Contact CT IMAGING Diagnoses Hiatal hernia with GERD without esophagitis Bilateral upper abdominal pain Abdominal distension (gaseous) Nausea Procedures CT ABD/PEL W IVCON CT ABD & PELVIS W/CONTRAST Nicole Solano PA-C [address] [place] [address] Ct [facility] Referral ID Status Reason Start Date Expiration Date Visits Requested Visits Authorized [id number] Authorized Auto-Generat ed Referral 05/27/2023 1 1 Specialty Diagnoses / Procedures Referred By Contac t Referred To Contact CT IMAGING Diagnoses Hiatal hernia with GERD without esophagitis Bilateral upper abdominal pain Abdominal distension (gaseous) Nausea Procedures CT ABD/PEL W IVCON CT ABD & PELVIS W/CONTRAST Nicole Solano PA-C [address] [place] [address] [place] [address] Referral ID Status Reason Start Date Expiration Date V isits Requested Visits Authorized [id number] Closed Auto-Generate d Referral 04/27/2022 05/27/2023 1 1 Specialty Diagnoses / Procedures Referred By Contac t Referred To Contact Neurology Diagnoses Migraine without aura and without status migrainosus, not intractable Procedures CONSULT TO NEUROLOGY OFFICE/OUTPATIENT [facility] MDM 60-74 MINUTES Leny Hsu MD [address] [place] [address] Referral ID Status Reason Start Date Expiration Date Visits Requested Visits Authorized [id number] Pending Review PCP Requested Referral 05/14/2023 05/13/2024 1 1 Specialty Diagnoses / Procedures Referred By Contac t Referred To Contact Optometry Diagnoses Migraine without aura and without status migrainosus, not intractable Blurred vision, bilateral Procedures CONSULT TO OPTOMETRY OFFICE/OUTPATIENT [facility] 60-74 MINUTES Kristy Asencio PA-C [address] [place] [address] Referral ID Status Reason Start Date Expiration Date Visits Requested Visits Authorized [id number] Pending Review PCP Requested Referral 3 06/04/2024 1 1 Specialty Diagnoses / Procedures Referred By Contac t Referred To Contact [facility] Diagnoses Obstructive sleep apnea Procedures HOME SLEEP APNEA TEST (HSAT) SLEEP STD AIRFLOW HRT RATE&O2 SAT EFFORT UNATT Kristy Asencio PA-C [address] [place] [address] [facility] [place] [address] [place] [address] Referral ID Status Reason Start Date Expiration Date Visits Requested Visits Authorized [id number] Authorized Auto-Generat ed Referral 3 06/04/2024 1 1 Specialty Diagnoses / Procedures Referred By Contac t Referred To Contact Podiatry Diagnoses Plantar wart of both feet Procedures CONSULT TO PODIATRY OFFICE/OUTPATIENT [facility] 60 MINUTES Leny Hsu MD [address] [place] [address] Referral ID Status Reason Start Date Expiration Date Visits Requested Visits Authorized [id number] Authorized PCP Requested Referral 12/19/2023 12/18/2024 1 1 Health Concerns Infection Onset Date Last Indicated Resolved Time COVID-19 Rule-Out 07/27/2021 07/27/2021 07/28/2021 4:19 AM EST COVID-19 Confirmed 07/27/2021 07/27/2021 8:53 PM EST Additional Source Comments INFORMATION SOURCE (unrecogn ized section and content) DATE CREATED AUTHOR 01/02/2018 [facility] DATE CREATED AUTHOR AUTHOR'S ORGANIZ ATION 07/22/2020 [facility] DATE CREATED AUTHOR AUTHOR'S ORGANIZ ATION 04/20/2023 [facility] DATE CREATED AUTHOR AUTHOR'S ORGANIZ ATION 08/19/2023 [facility] DATE CREATED AUTHOR AUTHOR'S ORGANIZ ATION 12/04/[address] [facility] DATE CREATED AUTHOR AUTHOR'S ORGANIZ ATION 02/01/2025 [facility] Source Comments (unrecognize d section and content) In the event this informatio n is protected by the Federal Confidentiality of Alcohol and Drug Abuse Patient Records regulations: The Federal rules restrict any use of the information to criminally investigate or prosecute any alcohol or drug abuse patient.[facility] the event this information is protected by the Federal Confidentiality of Alcohol and Drug Abuse Patient Records regulations: The Federal rules restrict any use of the information to criminally investigate or prosecute any alcohol or drug abuse patient.[facility] the event this information is protected by the Federal Confidentiality of Alcohol and Drug Abuse Patient Records regulations: The Federal rules restrict any use of the information to criminally investigate or prosecute any alcohol or drug abuse patient.[facility] Memorial[facility] the event this information is protected by the Federal Confidentiality of Alcohol and Drug Abuse Patient Records regulations: The Federal rules restrict any use of the information to criminally investigate or prosecute any alcohol or drug abuse patient.[facility] Memorial[facility] the event this information is protected by the Federal Confidentiality of Alcohol and Drug Abuse Patient Records regulations: The Federal rules restrict any use of the information to criminally investigate or prosecute any alcohol or drug abuse patient.[facility] Memorial[facility] the event this information is protected by the Federal Confidentiality of Alcohol and Drug Abuse Patient Records regulations: The Federal rules restrict any use of the information to criminally investigate or prosecute any alcohol or drug abuse patient.[facility] Memorial[facility] the event this information is protected by the Federal Confidentiality of Alcohol and Drug Abuse Patient Records regulations: The Federal rules restrict any use of the information to criminally investigate or prosecute any alcohol or drug abuse patient.[facility] MemorialIn the event this information is protected by the Federal Confidentiality of Alcohol and Drug Abuse Patient Records regulations: The Federal rules restrict any use of the information to criminally investigate or prosecute any alcohol or drug abuse patient.[facility] MemorialIn the event this information is protected by the Federal Confidentiality of Alcohol and Drug Abuse Patient Records regulations: The Federal rules restrict any use of the information to criminally investigate or prosecute any alcohol or drug abuse patient.[facility] MemorialIn the event this information is protected by the Federal Confidentiality of Alcohol and Drug Abuse Patient Records regulations: The Federal rules restrict any use of the information to criminally investigate or prosecute any alcohol or drug abuse patient.[facility] MemorialIn the event this information is protected by the Federal Confidentiality of Alcohol and Drug Abuse Patient Records regulations: The Federal rules restrict any use of the information to criminally investigate or prosecute any alcohol or drug abuse patient.[facility] MemorialIn the event this information is protected by the Federal Confidentiality of Alcohol and Drug Abuse Patient Records regulations: The Federal rules restrict any use of the information to criminally investigate or prosecute any alcohol or drug abuse patient.[facility] MemorialIn the event this information is protected by the Federal Confidentiality of Alcohol and Drug Abuse Patient Records regulations: The Federal rules restrict any use of the information to criminally investigate or prosecute any alcohol or drug abuse patient.[facility] MemorialIn the event this information is protected by the Federal Confidentiality of Alcohol and Drug Abuse Patient Records regulations: The Federal rules restrict any use of the information to criminally investigate or prosecute any alcohol or drug abuse patient.[facility] MemorialIn the event this information is protected by the Federal Confidentiality of Alcohol and Drug Abuse Patient Records regulations: The Federal rules restrict any use of the information to criminally investigate or prosecute any alcohol or drug abuse patient.[facility] MemorialIn the event this information is protected by the Federal Confidentiality of Alcohol and Drug Abuse Patient Records regulations: The Federal rules restrict any use of the information to criminally investigate or prosecute any alcohol or drug abuse patient.[facility] MemorialIn the event this information is protected by the Federal Confidentiality of Alcohol and Drug Abuse Patient Records regulations: The Federal rules restrict any use of the information to criminally investigate or prosecute any alcohol or drug abuse patient.[facility] MemorialIn the event this information is protected by the Federal Confidentiality of Alcohol and Drug Abuse Patient Records regulations: The Federal rules restrict any use of the information to criminally investigate or prosecute any alcohol or drug abuse patient.[facility] MemorialIn the event this information is protected by the Federal Confidentiality of Alcohol and Drug Abuse Patient Records regulations: The Federal rules restrict any use of the information to criminally investigate or prosecute any alcohol or drug abuse patient.[facility] MemorialIn the event this information is protected by the Federal Confidentiality of Alcohol and Drug Abuse Patient Records regulations: The Federal rules restrict any use of the information to criminally investigate or prosecute any alcohol or drug abuse patient.[facility] MemorialIn the event this information is protected by the Federal Confidentiality of Alcohol and Drug Abuse Patient Records regulations: The Federal rules restrict any use of the information to criminally investigate or prosecute any alcohol or drug abuse patient.[facility] MemorialIn the event this information is protected by the Federal Confidentiality of Alcohol and Drug Abuse Patient Records regulations: The Federal rules restrict any use of the information to criminally investigate or prosecute any alcohol or drug abuse patient.[facility] MemorialIn the event this information is protected by the Federal Confidentiality of Alcohol and Drug Abuse Patient Records regulations: The Federal rules restrict any use of the information to criminally investigate or prosecute any alcohol or drug abuse patient.[facility] MemorialIn the event this information is protected by the Federal Confidentiality of Alcohol and Drug Abuse Patient Records regulations: The Federal rules restrict any use of the information to criminally investigate or prosecute any alcohol or drug abuse patient.[facility] MemorialIn the event this information is protected by the Federal Confidentiality of Alcohol and Drug Abuse Patient Records regulations: The Federal rules restrict any use of the information to criminally investigate or prosecute any alcohol or drug abuse patient.[facility] MemorialIn the event this information is protected by the Federal Confidentiality of Alcohol and Drug Abuse Patient Records regulations: The Federal rules restrict any use of the information to criminally investigate or prosecute any alcohol or drug abuse patient.[facility] MemorialIn the event this information is protected by the Federal Confidentiality of Alcohol and Drug Abuse Patient Records regulations: The Federal rules restrict any use of the information to criminally investigate or prosecute any alcohol or drug abuse patient.[facility] MemorialIn the event this information is protected by the Federal Confidentiality of Alcohol and Drug Abuse Patient Records regulations: The Federal rules restrict any use of the information to criminally investigate or prosecute any alcohol or drug abuse patient.[facility] MemorialIn the event this information is protected by the Federal Confidentiality of Alcohol and Drug Abuse Patient Records regulations: The Federal rules restrict any use of the information to criminally investigate or prosecute any alcohol or drug abuse patient.[facility] MemorialIn the event this information is protected by the Federal Confidentiality of Alcohol and Drug Abuse Patient Records regulations: The Federal rules restrict any use of the information to criminally investigate or prosecute any alcohol or drug abuse patient.[facility] MemorialIn the event this information is protected by the Federal Confidentiality of Alcohol and Drug Abuse Patient Records regulations: The Federal rules restrict any use of the information to criminally investigate or prosecute any alcohol or drug abuse patient.[facility] MemorialIn the event this information is protected by the Federal Confidentiality of Alcohol and Drug Abuse Patient Records regulations: The Federal rules restrict any use of the information to criminally investigate or prosecute any alcohol or drug abuse patient.[facility] MemorialIn the event this information is protected by the Federal Confidentiality of Alcohol and Drug Abuse Patient Records regulations: The Federal rules restrict any use of the information to criminally investigate or prosecute any alcohol or drug abuse patient.[facility] MemorialIn the event this information is protected by the Federal Confidentiality of Alcohol and Drug Abuse Patient Records regulations: The Federal rules restrict any use of the information to criminally investigate or prosecute any alcohol or drug abuse patient.[facility] MemorialIn the event this information is protected by the Federal Confidentiality of Alcohol and Drug Abuse Patient Records regulations: The Federal rules restrict any use of the information to criminally investigate or prosecute any alcohol or drug abuse patient.[facility] MemorialIn the event this information is protected by the Federal Confidentiality of Alcohol and Drug Abuse Patient Records regulations: The Federal rules restrict any use of the information to criminally investigate or prosecute any alcohol or drug abuse patient.[facility] MemorialIn the event this information is protected by the Federal Confidentiality of Alcohol and Drug Abuse Patient Records regulations: The Federal rules restrict any use of the information to criminally investigate or prosecute any alcohol or drug abuse patient.[facility] MemorialIn the event this information is protected by the Federal Confidentiality of Alcohol and Drug Abuse Patient Records regulations: The Federal rules restrict any use of the information to criminally investigate or prosecute any alcohol or drug abuse patient.[facility] MemorialIn the event this information is protected by the Federal Confidentiality of Alcohol and Drug Abuse Patient Records regulations: The Federal rules restrict any use of the information to criminally investigate or prosecute any alcohol or drug abuse patient.[facility] MemorialIn the event this information is protected by the Federal Confidentiality of Alcohol and Drug Abuse Patient Records regulations: The Federal rules restrict any use of the information to criminally investigate or prosecute any alcohol or drug abuse patient.[facility] MemorialIn the event this information is protected by the Federal Confidentiality of Alcohol and Drug Abuse Patient Records regulations: The Federal rules restrict any use of the information to criminally investigate or prosecute any alcohol or drug abuse patient.[facility] MemorialIn the event this information is protected by the Federal Confidentiality of Alcohol and Drug Abuse Patient Records regulations: The Federal rules restrict any use of the information to criminally investigate or prosecute any alcohol or drug abuse patient.[facility] MemorialIn the event this information is protected by the Federal Confidentiality of Alcohol and Drug Abuse Patient Records regulations: The Federal rules restrict any use of the information to criminally investigate or prosecute any alcohol or drug abuse patient.[facility] MemorialIn the event this information is protected by the Federal Confidentiality of Alcohol and Drug Abuse Patient Records regulations: The Federal rules restrict any use of the information to criminally investigate or prosecute any alcohol or drug abuse patient.[facility] MemorialIn the event this information is protected by the Federal Confidentiality of Alcohol and Drug Abuse Patient Records regulations: The Federal rules restrict any use of the information to criminally investigate or prosecute any alcohol or drug abuse patient.[facility] MemorialIn the event this information is protected by the Federal Confidentiality of Alcohol and Drug Abuse Patient Records regulations: The Federal rules restrict any use of the information to criminally investigate or prosecute any alcohol or drug abuse patient.[facility] MemorialIn the event this information is protected by the Federal Confidentiality of Alcohol and Drug Abuse Patient Records regulations: The Federal rules restrict any use of the information to criminally investigate or prosecute any alcohol or drug abuse patient.[facility] MemorialIn the event this information is protected by the Federal Confidentiality of Alcohol and Drug Abuse Patient Records regulations: The Federal rules restrict any use of the information to criminally investigate or prosecute any alcohol or drug abuse patient.[facility] MemorialIn the event this information is protected by the Federal Confidentiality of Alcohol and Drug Abuse Patient Records regulations: The Federal rules restrict any use of the information to criminally investigate or prosecute any alcohol or drug abuse patient.[facility] MemorialIn the event this information is protected by the Federal Confidentiality of Alcohol and Drug Abuse Patient Records regulations: The Federal rules restrict any use of the information to criminally investigate or prosecute any alcohol or drug abuse patient.[facility] the event this information is protected by the Federal Confidentiality of Alcohol and Drug Abuse Patient Records regulations: The Federal rules restrict any use of the information to criminally investigate or prosecute any alcohol or drug abuse patient.[facility] MemorialIn the event this information is protected by the Federal Confidentiality of Alcohol and Drug Abuse Patient Records regulations: The Federal rules restrict any use of the information to criminally investigate or prosecute any alcohol or drug abuse patient.[facility] MemorialIn the event this information is protected by the Federal Confidentiality of Alcohol and Drug Abuse Patient Records regulations: The Federal rules restrict any use of the information to criminally investigate or prosecute any alcohol or drug abuse patient.[facility]In the event this information is protected by the Federal Confidentiality of Alcohol and Drug Abuse Patient Records regulations: The Federal rules restrict any use of the information to criminally investigate or prosecute any alcohol or drug abuse patient.[facility] MemorialIn the event this information is protected by the Federal Confidentiality of Alcohol and Drug Abuse Patient Records regulations: The Federal rules restrict any use of the information to criminally investigate or prosecute any alcohol or drug abuse patient.[facility] MemorialIn the event this information is protected by the Federal Confidentiality of Alcohol and Drug Abuse Patient Records regulations: The Federal rules restrict any use of the information to criminally investigate or prosecute any alcohol or drug abuse patient.[facility] MemorialIn the event this information is protected by the Federal Confidentiality of Alcohol and Drug Abuse Patient Records regulations: The Federal rules restrict any use of the information to criminally investigate or prosecute any alcohol or drug abuse patient.[facility]In the event this information is protected by the Federal Confidentiality of Alcohol and Drug Abuse Patient Records regulations: The Federal rules restrict any use of the information to criminally investigate or prosecute any alcohol or drug abuse patient.[facility]In the event this information is protected by the Federal Confidentiality of Alcohol and Drug Abuse Patient Records regulations: The Federal rules restrict any use of the information to criminally investigate or prosecute any alcohol or drug abuse patient.[facility] MemorialIn the event this information is protected by the Federal Confidentiality of Alcohol and Drug Abuse Patient Records regulations: The Federal rules restrict any use of the information to criminally investigate or prosecute any alcohol or drug abuse patient.[facility]In the event this information is protected by the Federal Confidentiality of Alcohol and Drug Abuse Patient Records regulations: The Federal rules restrict any use of the information to criminally investigate or prosecute any alcohol or drug abuse patient.[facility]In the event this information is protected by the Federal Confidentiality of Alcohol and Drug Abuse Patient Records regulations: The Federal rules restrict any use of the information to criminally investigate or prosecute any alcohol or drug abuse patient.[facility]In the event this information is protected by the Federal Confidentiality of Alcohol and Drug Abuse Patient Records regulations: The Federal rules restrict any use of the information to criminally investigate or prosecute any alcohol or drug abuse patient.[facility]In the event this information is protected by the Federal Confidentiality of Alcohol and Drug Abuse Patient Records regulations: The Federal rules restrict any use of the information to criminally investigate or prosecute any alcohol or drug abuse patient.[facility]In the event this information is protected by the Federal Confidentiality of Alcohol and Drug Abuse Patient Records regulations: The Federal rules restrict any use of the information to criminally investigate or prosecute any alcohol or drug abuse patient.[facility]In the event this information is protected by the Federal Confidentiality of Alcohol and Drug Abuse Patient Records regulations: The Federal rules restrict any use of the information to criminally investigate or prosecute any alcohol or drug abuse patient.[facility] MemorialIn the event this information is protected by the Federal Confidentiality of Alcohol and Drug Abuse Patient Records regulations: The Federal rules restrict any use of the information to criminally investigate or prosecute any alcohol or drug abuse patient.[facility]In the event this information is protected by the Federal Confidentiality of Alcohol and Drug Abuse Patient Records regulations: The Federal rules restrict any use of the information to criminally investigate or prosecute any alcohol or drug abuse patient.[facility]In the event this information is protected by the Federal Confidentiality of Alcohol and Drug Abuse Patient Records regulations: The Federal rules restrict any use of the information to criminally investigate or prosecute any alcohol or drug abuse patient.[facility] MemorialIn the event this information is protected by the Federal Confidentiality of Alcohol and Drug Abuse Patient Records regulations: The Federal rules restrict any use of the information to criminally investigate or prosecute any alcohol or drug abuse patient.[facility]In the event this information is protected by the Federal Confidentiality of Alcohol and Drug Abuse Patient Records regulations: The Federal rules restrict any use of the information to criminally investigate or prosecute any alcohol or drug abuse patient.[facility] MemorialIn the event this information is protected by the Federal Confidentiality of Alcohol and Drug Abuse Patient Records regulations: The Federal rules restrict any use of the information to criminally investigate or prosecute any alcohol or drug abuse patient.[facility]In the event this information is protected by the Federal Confidentiality of Alcohol and Drug Abuse Patient Records regulations: The Federal rules restrict any use of the information to criminally investigate or prosecute any alcohol or drug abuse patient.[facility] MemorialIn the event this information is protected by the Federal Confidentiality of Alcohol and Drug Abuse Patient Records regulations: The Federal rules restrict any use of the information to criminally investigate or prosecute any alcohol or drug abuse patient.[facility]In the event this information is protected by the Federal Confidentiality of Alcohol and Drug Abuse Patient Records regulations: The Federal rules restrict any use of the information to criminally investigate or prosecute any alcohol or drug abuse patient.[facility]In the event this information is protected by the Federal Confidentiality of Alcohol and Drug Abuse Patient Records regulations: The Federal rules restrict any use of the information to criminally investigate or prosecute any alcohol or drug abuse patient.[facility]In the event this information is protected by the Federal Confidentiality of Alcohol and Drug Abuse Patient Records regulations: The Federal rules restrict any use of the information to criminally investigate or prosecute any alcohol or drug abuse patient.[facility]In the event this information is protected by the Federal Confidentiality of Alcohol and Drug Abuse Patient Records regulations: The Federal rules restrict any use of the information to criminally investigate or prosecute any alcohol or drug abuse patient.[facility] MemorialIn the event this information is protected by the Federal Confidentiality of Alcohol and Drug Abuse Patient Records regulations: The Federal rules restrict any use of the information to criminally investigate or prosecute any alcohol or drug abuse patient.[facility]In the event this information is protected by the Federal Confidentiality of Alcohol and Drug Abuse Patient Records regulations: The Federal rules restrict any use of the information to criminally investigate or prosecute any alcohol or drug abuse patient.[facility]In the event this information is protected by the Federal Confidentiality of Alcohol and Drug Abuse Patient Records regulations: The Federal rules restrict any use of the information to criminally investigate or prosecute any alcohol or drug abuse patient.[facility] MemorialIn the event this information is protected by the Federal Confidentiality of Alcohol and Drug Abuse Patient Records regulations: The Federal rules restrict any use of the information to criminally investigate or prosecute any alcohol or drug abuse patient.[facility]In the event this information is protected by the Federal Confidentiality of Alcohol and Drug Abuse Patient Records regulations: The Federal rules restrict any use of the information to criminally investigate or prosecute any alcohol or drug abuse patient.[facility]In the event this information is protected by the Federal Confidentiality of Alcohol and Drug Abuse Patient Records regulations: The Federal rules restrict any use of the information to criminally investigate or prosecute any alcohol or drug abuse patient.[facility] MemorialIn the event this information is protected by the Federal Confidentiality of Alcohol and Drug Abuse Patient Records regulations: The Federal rules restrict any use of the information to criminally investigate or prosecute any alcohol or drug abuse patient.[facility] MemorialIn the event this information is protected by the Federal Confidentiality of Alcohol and Drug Abuse Patient Records regulations: The Federal rules restrict any use of the information to criminally investigate or prosecute any alcohol or drug abuse patient.[facility] MemorialIn the event this information is protected by the Federal Confidentiality of Alcohol and Drug Abuse Patient Records regulations: The Federal rules restrict any use of the information to criminally investigate or prosecute any alcohol or drug abuse patient.[facility] MemorialIn the event this information is protected by the Federal Confidentiality of Alcohol and Drug Abuse Patient Records regulations: The Federal rules restrict any use of the information to criminally investigate or prosecute any alcohol or drug abuse patient.[facility] MemorialIn the event this information is protected by the Federal Confidentiality of Alcohol and Drug Abuse Patient Records regulations: The Federal rules restrict any use of the information to criminally investigate or prosecute any alcohol or drug abuse patient.[facility] MemorialIn the event this information is protected by the Federal Confidentiality of Alcohol and Drug Abuse Patient Records regulations: The Federal rules restrict any use of the information to criminally investigate or prosecute any alcohol or drug abuse patient.[facility] MemorialIn the event this information is protected by the Federal Confidentiality of Alcohol and Drug Abuse Patient Records regulations: The Federal rules restrict any use of the information to criminally investigate or prosecute any alcohol or drug abuse patient.[facility] MemorialIn the event this information is protected by the Federal Confidentiality of Alcohol and Drug Abuse Patient Records regulations: The Federal rules restrict any use of the information to criminally investigate or prosecute any alcohol or drug abuse patient.[facility] MemorialIn the event this information is protected by the Federal Confidentiality of Alcohol and Drug Abuse Patient Records regulations: The Federal rules restrict any use of the information to criminally investigate or prosecute any alcohol or drug abuse patient.[facility] MemorialIn the event this information is protected by the Federal Confidentiality of Alcohol and Drug Abuse Patient Records regulations: The Federal rules restrict any use of the information to criminally investigate or prosecute any alcohol or drug abuse patient.[facility] MemorialIn the event this information is protected by the Federal Confidentiality of Alcohol and Drug Abuse Patient Records regulations: The Federal rules restrict any use of the information to criminally investigate or prosecute any alcohol or drug abuse patient.[facility] MemorialIn the event this information is protected by the Federal Confidentiality of Alcohol and Drug Abuse Patient Records regulations: The Federal rules restrict any use of the information to criminally investigate or prosecute any alcohol or drug abuse patient.[facility] MemorialIn the event this information is protected by the Federal Confidentiality of Alcohol and Drug Abuse Patient Records regulations: The Federal rules restrict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 [place] [address] PCP - General Family Medicine 05/11/21 Assayer Helper Relationship Specialty Start Date End Date Leny Hsu MD [address] [place] [address] PCP - General Family Medicine 05/11/21 Assayer Helper Relationship Specialty Start Date End Date Leny Hsu MD [address] [place] [address] PCP - General Family Medicine 05/11/21 Assayer Helper Relationship Specialty Start Date End Date Leny Hsu MD [address] [place] [address] PCP - General Family Medicine 05/11/21 Assayer Helper Relationship Specialty Start Date End Date Leny Hsu MD [address] [place] [address] PCP - General Family Medicine 05/11/21 Assayer Helper Relationship Specialty Start Date End Date Leny Hsu MD [address] [place] [address] PCP - General Family Medicine 05/11/21 Assayer Helper Relationship Specialty Start Date End Date Leny Hsu MD [address] [place] [address] PCP - General Family Medicine 05/11/21 Assayer Helper Relationship Specialty Start Date End Date Leny Hsu MD [address] [place] [address] PCP - General Family Medicine 05/11/21 Assayer Helper Relationship Specialty Start Date End Date Leny Hsu MD [address] [place] [address] PCP - General Family Medicine 05/11/21 Assayer Helper Relationship Specialty Start Date End Date Leny Hsu MD [address] [place] [address] PCP - General Family Medicine 05/11/21 Assayer Helper Relationship Specialty Start Date End Date Leny Hsu MD [address] [place] [address] PCP - General Family Medicine 05/11/21 Assayer Helper Relationship Specialty Start Date End Date Leny Hsu MD [address] [place] [address] PCP - General Family Medicine 05/11/21 Assayer Helper Relationship Specialty Start Date End Date Leny Hsu MD [address] [place] [address] PCP - General Family Medicine 05/11/21 Assayer Helper Relationship Specialty Start Date End Date Leny Hsu MD [address] [place] [address] PCP - General Family Medicine 05/11/21 Assayer Helper Relationship Specialty Start Date End Date Leny Hsu MD [address] [place] [address] PCP - General Family Medicine 05/11/21 Assayer Helper Relationship Specialty Start Date End Date Leny Hsu MD [address] [place] [address] PCP - General Family Medicine 05/11/21 Assayer Helper Relationship Specialty Start Date End Date Leny Hsu MD [address] [place] [address] PCP - General Family Medicine 05/11/21 Assayer Helper Relationship Specialty Start Date End Date Leny Hsu MD [address] [place] [address] PCP - General Family Medicine 05/11/21 Assayer Helper Relationship Specialty Start Date End Date Leny Hsu MD [address] [place] [address] PCP - General Family Medicine 05/11/21 Assayer Helper Relationship Specialty Start Date End Date Leny Hsu MD [address] [place] [address] PCP - General Family Medicine 05/11/21 Assayer Helper Relationship Specialty Start Date End Date Leny Hsu MD [address] [place] [address] PCP - General Family Medicine 05/11/21 Assayer Helper Relationship Specialty Start Date End Date Leny Hsu MD [address] [place] [address] PCP - General Family Medicine 05/11/21 Assayer Helper Relationship Specialty Start Date End Date Leny Hsu MD [address] [place] [address] PCP - General Family Medicine 05/11/21 Assayer Helper Relationship Specialty Start Date End Date Leny Hsu MD [address] [place] [address] PCP - General Family Medicine 05/11/21 Assayer Helper Relationship Specialty Start Date End Date Leny Hsu MD [address] [place] [address] PCP - General Family Medicine 05/11/21 Assayer Helper Relationship Specialty Start Date End Date Leny Hsu MD [address] [place] [address] PCP - General Family Medicine 05/11/21 Assayer Helper Relationship Specialty Start Date End Date Leny Hsu MD [address] [place] [address] PCP - General Family Medicine 05/11/21 Assayer Helper Relationship Specialty Start Date End Date Leny Hsu MD [address] [place] [address] PCP - General Family Medicine 05/11/21 Assayer Helper Relationship Specialty Start Date End Date Leny Hsu MD [address] [place] [address] PCP - General Family Medicine 05/11/21 Assayer Helper Relationship Specialty Start Date End Date Leny Hsu MD [address] [place] [address] PCP - General Family Medicine 05/11/21 Assayer Helper Relationship Specialty Start Date End Date Leny Hsu MD [address] [place] [address] PCP - General Family Medicine 05/11/21 Assayer Helper Relationship Specialty Start Date End Date Leny Hsu MD [address] [place] [address] PCP - General Family Medicine 05/11/21 Assayer Helper Relationship Specialty Start Date End Date Leny Hsu MD [address] [place] [address] PCP - General Family Medicine 05/11/21 Assayer Helper Relationship Specialty Start Date End Date Leny Hsu MD [address] [place] [address] PCP - General Family Medicine 05/11/21 Assayer Helper Relationship Specialty Start Date End Date Leny Hsu MD [address] [place] [address] PCP - General Family Medicine 05/11/21 Assayer Helper Relationship Specialty Start Date End Date Leny Hsu MD [address] [place] [address] PCP - General Family Medicine 05/11/21 Assayer Helper Relationship Specialty Start Date End Date Leny Hsu MD [address] [place] [address] PCP - General Family Medicine 05/11/21 Assayer Helper Relationship Specialty Start Date End Date Leny Hsu MD [address] [place] [address] PCP - General Family Medicine 05/11/21 PodlogarLydia APRN.FONDANT COOKER [address] [place] [address] Recruiting Manager Family Medicine 06/14/24 Assayer Helper Relationship Specialty Start Date End Date Leny Hsu MD [address] [place] [address] PCP - General Family Medicine 05/11/21 PodlogarLydia APRN.FONDANT COOKER [address] [place] [address] Recruiting Manager Family Medicine 06/14/24 Assayer Helper Relationship Specialty Start Date End Date Leny Hsu MD [address] [place] [address] PCP - General Family Medicine 05/11/21 PodlogarLydia APRN.FONDANT COOKER [address] [place] [address] Recruiting Manager Family Medicine 06/14/24 Assayer Helper Relationship Specialty Start Date End Date Leny Hsu MD [address] [place] [address] PCP - General Family Medicine 05/11/21 Podlogar, Lydia, MAMMOGRAPHY TECHNICIAN.FONDANT COOKER [address] [place] [address] Recruiting Manager Family Medicine 06/14/24 Assayer Helper Relationship Specialty Start Date End Date Leny Hsu MD [address] [place] [address] PCP - General Family Medicine 05/11/21 Podlogar, Lydia, MAMMOGRAPHY TECHNICIAN.FONDANT COOKER [address] [place] [address] Recruiting Manager Family Medicine 06/14/24 Assayer Helper Relationship Specialty Start Date End Date Leny Hsu MD [address] [place] [address] PCP - General Family Medicine 05/11/21 Podlogar, Lydia, MAMMOGRAPHY TECHNICIAN.FONDANT COOKER [address] [place] [address] Recruiting Manager Family Medicine 06/14/24 Assayer Helper Relationship Specialty Start Date End Date Leny Hsu MD [address] [place] [address] PCP - General Family Medicine 05/11/21 Podlogar, Lydia, MAMMOGRAPHY TECHNICIAN.FONDANT COOKER [address] [place] [address] Recruiting Manager Family [facility] 06/14/24 Assayer Helper Relationship Specialty Start Date End Date Leny Hsu MD [address] [place] [address] PCP - General Family Medicine 05/11/21 Podlogar, Lydia MAMMOGRAPHY TECHNICIAN.FONDANT COOKER [address] [place] [address] Recruiting Manager Family Medicine 06/14/24 Assayer Helper Relationship Specialty Start Date End Date Leny Hsu MD [address] [place] [address] PCP - General Family Medicine 05/11/21 Podlogar, LISA FreemanN.FONDANT COOKER [address] [place] [address] Recruiting Manager Family Medicine 06/14/24 Assayer Helper Relationship Specialty Start Date End Date Leny Hsu MD [address] [place] [address] PCP - General Family Medicine 05/11/21 PodlogarLydia, MAMMOGRAPHY TECHNICIAN.FONDANT COOKER [address] [place] [address] [facility] 06/14/24 Assayer Helper Relationship Specialty Start Date End Date Leny Hsu MD [address] [place] [address] PCP - General Family Medicine 05/11/21 Podlogar, Lydia, MAMMOGRAPHY TECHNICIAN.FONDANT COOKER [address] [place] [address] [facility] 06/14/24 Assayer Helper Relationship Specialty Start Date End Date Leny Hsu MD [address] [place] [address] PCP - General Family Medicine 05/11/21 PodlogarLydia MAMMOGRAPHY TECHNICIAN.FONDANT COOKER [address] [place] [address] Recruiting Manager Family Medicine 06/14/24 Bradley Mcmullen MAMMOGRAPHY TECHNICIAN.FONDANT COOKER [address] [place] [address] [facility] 09/19/24 Assayer Helper Relationship Specialty Start Date End Date Leny Hsu MD [address] [place] [address] PCP - General Family Medicine 05/11/21 Podlogar, Lydia MAMMOGRAPHY TECHNICIAN.FONDANT COOKER [address] [place] [address] Recruiting Manager Family Medicine 06/14/24 Bradley Mcmullen MAMMOGRAPHY TECHNICIAN.FONDANT COOKER [address] [place] [address] [facility] 09/19/24 Assayer Helper Relationship Specialty Start Date End Date Leny Hsu MD [address] [place] [address] PCP - General Family Medicine 05/11/21 PodlogarLydia MAMMOGRAPHY TECHNICIAN.FONDANT COOKER [address] [place] [address] Recruiting Manager Family Medicine 06/14/24 Bradley Mcmullen MAMMOGRAPHY TECHNICIAN.FONDANT COOKER [address] [place] [address] [facility] Medicine 09/29/24 Assayer Helper Relationship Specialty Start Date End Date Leny Hsu MD [address] [place] [address] PCP - General Family Medicine 05/11/21 PodlogarLydia APRN.FONDANT COOKER [address] [place] [address] Recruiting Manager Family Medicine 06/14/24 Bradley Mcmullen APRN.FONDANT COOKER [address] [place] [address] [facility] 09/19/24 09/28/24 Bradley Mcmullen APRN.FONDANT COOKER [address] [place] [address] [facility] 09/29/24 Assayer Helper Relationship Specialty Start Date End Date Leny Hsu MD [address] [place] [address] PCP - General Family Medicine 05/11/21 PodlogarLydia APRN.FONDANT COOKER [address] [place] [address] Recruiting Manager Family Medicine 06/14/24 Bradley Mcmullen MAMMOGRAPHY TECHNICIAN.FONDANT COOKER [address] [place] [address] [facility] Medicine 09/29/24 Assayer Helper Relationship Specialty Start Date End Date Leny Hsu MD [address] [place] [address] PCP - General Family Medicine 05/11/21 PodlogarLydia APRN.FONDANT COOKER [address] [place] [address] Recruiting Manager Family Medicine 06/14/24 Bradley Mcmullen APRN.FONDANT COOKER [address] [place] [address] Recruiting Manager Family Medicine 09/29/24 Assayer Helper Relationship Specialty Start Date End Date Leny Hsu MD [address] [place] [address] PCP - General Family Medicine 05/11/21 PodlogarLydia APRN.FONDANT COOKER [address] [place] [address] Recruiting Manager Family Medicine 06/14/24 Bradley Mcmullen APRN.FONDANT COOKER [address] [place] [address] Recruiting Manager Family Medicine 09/29/24 Assayer Helper Relationship Specialty Start Date End Date Leny Hsu MD [address] [place] [address] PCP - General Family Medicine 05/11/21 PodlogarLydia APRN.FONDANT COOKER [address] [place] [address] Recruiting Manager Family Medicine 06/14/24 Bradley Mcmullen APRN.FONDANT COOKER [address] [facility] [address] Recruiting Manager Family Medicine 09/29/24 Assayer Helper Relationship Specialty Start Date End Date Leny Hsu MD [address] [place] [address] PCP - General Family Medicine 05/11/21 PodlogarLydia APRN.FONDANT COOKER [address] [place] [address] Recruiting Manager Family Medicine 06/14/24 Bradley Mcmullen APRN.FONDANT COOKER [address] [place] [address] Recruiting Manager Family Medicine 09/29/24 Assayer Helper Relationship Specialty Start Date End Date Leny Hsu MD [address] [place] [address] PCP - General Family Medicine 05/11/21 PodlogarLydia APRN.FONDANT COOKER [address] [place] [address] Recruiting Manager Family Medicine 06/14/24 Bradley Mcmullen APRN.FONDANT COOKER [address] [place] [address] [facility] 09/29/24 Assayer Helper Relationship Specialty Start Date End Date Leny Hsu MD [address] [place] [address] PCP - General Family Medicine 05/11/21 PodlogarLydia APRN.FONDANT COOKER [address] [place] [address] Recruiting Manager Family Medicine 06/14/24 Bradley Mcmullen APRN.FONDANT COOKER [address] [place] [address] [facility] 09/29/24 Assayer Helper Relationship Specialty Start Date End Date Leny Hsu MD [address] [place], [place] [address] PCP - General Family Medicine 05/11/21 Podlogar, LISA FreemanN.FONDANT COOKER [address] [place] [address] [facility] 06/14/24 Bradley Mcmullen MAMMOGRAPHY TECHNICIAN.FONDANT COOKER [address] [place] [address] [facility] 09/29/24 Assayer Helper Relationship Specialty Start Date End Date Leny Hsu MD [address] [place] [address] PCP - General Family Medicine 05/11/21 Podlogar, Lydia MAMMOGRAPHY TECHNICIAN.FONDANT COOKER [address] [place] [address] [facility] Medicine 06/14/24 Bradley Mcmullen MAMMOGRAPHY TECHNICIAN.FONDANT COOKER [address] [place] [address] [facility] 09/29/24 Assayer Helper Relationship Specialty Start Date End Date Leny Hsu MD [address] [place] [address] PCP - General Family Medicine 05/11/21 Podlogar, Lydia, MAMMOGRAPHY TECHNICIAN.FONDANT COOKER [address] [place] [address] [facility] 06/14/24 Assayer Helper Relationship Specialty Start Date End Date Leny Hsu MD [address] [place] [address] PCP - General Family Medicine 05/11/21 PodlogarLydia APRN.FONDANT COOKER [address] [place] [address] [facility] 06/14/24 Assayer Helper Relationship Specialty Start Date End Date Leny Hsu MD [address] [place] [address] PCP - General Family Medicine 05/11/21 PodlogarLydia APRN.FONDANT COOKER [address] [place] [address] [facility] 06/14/24 Bradley Mcmullen APRN.FONDANT COOKER [address] [place] [address] [facility] 12/18/24 Assayer Helper Relationship Specialty Start Date End Date Leny Hsu MD [address] [place] [address] PCP - General Family Medicine 05/11/21 PodlogarLydia MAMMOGRAPHY TECHNICIAN.FONDANT COOKER [address] [place] [address] [facility] Medicine 06/14/24 Bradley Mcmullen APRN.FONDANT COOKER [address] [place] [address] [facility] 09/29/24 11/23/24 Bradley Mcmullen APRN.FONDANT COOKER [address] [place], [place] [address] [facility] 12/18/24 Assayer Helper Relationship Specialty Start Date End Date Leny Hsu MD [address] [place], [place] [address] PCP - General Family Medicine 05/11/21 PodlogarLydia APRN.FONDANT COOKER [address] [place], [place] [address] [facility] 06/14/24 Bradley Mcmullen APRN.FONDANT COOKER [address] [place], [place] [address] [facility] 09/29/24 11/23/24 Bradley Mcmullen APRN.FONDANT COOKER [address] [place], [place] [id number] [facility] 12/18/24 Goals (unrecognized section and content) Goals may be documented in a n alternate sectionGoals may be documented in an alternate sectionGoals may be documented in an alternate sectionGoals may be documented in an alternate section Inactive Administered Medications - up to 3 most recent administrations Administered Medications (un recognized section and content) Medication Order MAR Action Action Date Dose Rate Site lidocaine 10 mg/mL (1 %) injection (XYLOCAINE) OTHER, NEEDED, Starting on Sun09/05/23 at 1457, Until Sun09/05/23 at 1457, Intraprocedure Given 09/05/2023 2:57 PM EST 50 mg Breast, Left FOR RECORDS PERTAINING TO PATIENTS WHO ARE OR HAVE BEEN ENROLLED IN A CHEMICAL DEPENDENCY/SUBSTANCEABUSE PROGRAM, SOME INFORMATION MAY BE OMITTED. This clinical summary was aggregated from multiple sources. Caution should be exercised in using it in the provision of clinical care. This summary normalizes information from multiple sources, and as a consequence, information in this document may materially change the coding, format and clinical context of patient data. In addition, data may be omitted in some cases. CLINICAL DECISIONS SHOULD BE BASED ON THE PRIMARY CLINICAL RECORDS. [employer] [facility] provides no warranty or guarantee of the accuracy or completeness of information in this document.
--- NOTE | 2025-02-01 21:14 | EX.ED.DYSGE1 ---
HPI History of Present Illness Chief Complaint: Flank Pain Detail of Chief Complaint: Left flank pain that radiates anteriorly to the left inguinal area Informant: patient Onset/Context/Timing Onset: Weeks Context: Sudden Onset Timing: Intermittent and Waxes and wanes Quality: Pain Location: Left flank radiating to the left groin Current Severity: Mild Maximum Severity: Severe Worsened by: Nothing Relieved by: Nothing Associated Symptoms Associated Symptoms: Frequency and urgency Narrative Narrative: Patient is a 49-year-old female. She denies history of renal or ureterolithiasis. She is status post tubal ligation. She denies fever, chills night sweats. She denies nausea or vomiting. She reports left flank pain that radiates anterior to the left groin. She does endorse frequency and urgency. She states she may have had some blood. She still menstruates. She states her menses ended the end of last week. They are normal. She has no symptoms of . She has history of pyelonephritis. She denies diarrhea. She denies respiratory symptoms. She denies intolerance to any foods. There is no history of direct or indirect trauma. Prior similar symptoms: No Recent Illness/Hospitalization: No [facility] Medical History Thrush Lab test negative for COVID-19 virus Migraines Abdominal pain Developmental disability Anxiety Fibrocystic change of breast Depression hypercholesterolemia HTN (hypertension) Hypothyroid Home Medications Medication Instructions Recorded Last Taken Type candesartan 16 mg tablet 16 mg PO DAILY 12/12/15 12/24/19 05:00 History levothyroxine 50 mcg tablet 50 mcg PO DAILY 12/12/15 12/24/19 05:00 History cholecalciferol (vitamin D3) 50 2 tab PO DAILY 01/28/19 Unknown History mcg (2,000 unit) tablet albuterol sulfate 90 mcg/actuation 2 puff inhalation PRN PRN Sob &/Or 12/17/19 12/24/19 05:00 History aerosol inhaler Wheezing escitalopram oxalate 20 mg tablet 20 mg PO DAILY 12/17/19 Unknown History montelukast 10 mg tablet 10 mg PO QHS 12/17/19 Unknown History tamsulosin 0.4 mg capsule 0.4 mg PO DAILY 12/17/19 Unknown History bupropion HCl 300 mg 24 hr tablet, 300 mg PO DAILY 12/23/19 Unknown History extended release topiramate 25 mg tablet 25 mg PO QHS 12/23/19 Unknown History omeprazole 40 mg capsule,delayed 40 mg PO DAILY 02/10/20 Unknown History release prednisone 20 mg tablet 60 mg (3 x 20 mg) PO DAILY #15 tabs 03/01/22 Unknown Rx naproxen 500 mg tablet 500 mg PO BID #14 tabs 08/13/22 Unknown Rx ondansetron 4 mg disintegrating 4 mg PO Q8H PRN PRN Nausea #10 tabs 10/14/22 Unknown Rx tablet naproxen 500 mg tablet (Naprosyn) 500 mg PO BID PRN pain #20 tabs 01/17/24 Unknown Rx cephalexin 500 mg capsule 500 mg PO Q6 #40 CAPSULES 02/01/25 Unknown Rx Allergy/AdvReac Type Severity Reaction Status Date / Time amphetamine aspartate (From Allergy Itching Verified 02/01/25 20:00 Adderall) amphetamine sulfate (From Allergy Itching Verified 02/01/25 20:00 Adderall) dextroamphetamine saccharate Allergy Itching Verified 02/01/25 20:00 (From Adderall) dextroamphetamine sulfate Allergy Itching Verified 02/01/25 20:00 (From Adderall) sumatriptan (From Imitrex) Allergy Chest Verified 02/01/25 20:00 tightness sumatriptan succinate (From Allergy Chest Verified 02/01/25 20:00 Imitrex) tightness venom-honey bee Allergy Anaphylaxis Verified 02/01/25 20:00 Family History Father Cancer Surgical History History of tubal ligation Status post fine needle aspiration History of esophagogastroduodenoscopy (EGD) History of dilation and curettage Social History household members: family Smoking Status: Never smoker substance use type: does not use ROS ROS ED Constitutional Constitutional ED: Denies chills, fever(s), subjective, sweats or weight loss Eyes Eyes: Denies blurry vision or change in vision ENT ENT ED: Denies rhinorrhea or sore throat Cardiovascular Cardiovascular: Denies chest pain or palpitations Respiratory/Chest Respiratory/Chest: Denies cough, dyspnea or dyspnea on exertion Gastrointestinal Gastrointestinal: Reports abdominal pain; Denies constipation, diarrhea, melena, nausea or vomiting Genitourinary Genitourinary ED: Reports hematuria and urinary frequency; Denies dysuria Musculoskeletal Musculoskeletal: Reports other Details: Left flank pain ; Denies arthralgias or myalgias Integumentary Denies rash Neurologic Neurologic: Denies headache(s) or paresthesias Endocrine Endocrinology: Denies cold intolerance or heat intolerance Hematologic/Lymphatic Hematologic/Lymphatic: Reports systems reviewed and no addt'l complaints, except as documented EXAM Physical Exam Const Vital Signs: 02/01/25 20:01 02/01/25 21:03 Temperature 99.1 F 99.1 F Temperature Source Oral Oral Pulse Rate 90 72 Respiratory Rate 16 18 Blood Pressure 142/82 H 117/67 Blood Pressure Mean 102 83 Pulse Ox 96 100 Oxygen Delivery Method Room Air Room Air Positive well nourished and well developed Constitutional Narrative: BMI is 34.1. General Appearance ED: well developed and pallor; Negative for cyanotic, diaphoretic or NAD HEENT Reports moist mucous membranes HEENT Narrative: Head is atraumatic normocephalic. Ears normal. Nares patent. Eyes PERRL and EOMs intact bilaterally General Eye ED: Negative for pale conjunctiva or scleral icterus Neck no lymphadenopathy, supple and no JVD Resp normal respiratory effort and clear to auscultation bilaterally Cardio regular rate, regular rhythm, S1 normal heart sound, S2 normal heart sound and no murmurs GI normal to inspection, nondistended, normoactive bowel sounds, non-tender, non-distended and no masses; Negative for hepatosplenomegaly Back/Spine General Back: CVA tenderness left Extremity normal to inspection General Extremety ED: Negative for edema or tenderness General Extremity: Negative for edema Neuro oriented x3 and CN's II-XII intact bilaterally Sensorium / Orientation: alert Psych mental status grossly normal Skin no rashes or lesions noted, no wounds and skin turgor normal General Skin Exam: pallor; Negative for jaundice MDM MDM MDM Narrative Medical decision making narrative: This may represent atypical presentation of pyelonephritis, obstructing ureteral stone, pain of unknown etiology. Workup included CBC electrolyte panel UA. CT of the abdomen was obtained as well. Lab Data Attestation: I reviewed the patient's lab results. Lab results narrative: White count is slightly elevated 11.6. There is no shift. Urinalysis is remarkable for protein, occult blood and leukoesterase on macro. Negative for nitrites. Micro reveals 0 RBCs and 0 WBCs with 1+ bacteria. Labs: Laboratory Results - last 24 hr 02/01/25 20:35 WBC 11.6 H RBC 4.55 Hgb 12.9 Hct 38.1 MCV 83.7 MCH 28.4 MCHC 33.9 RDW Std Deviation 39.0 RDW Coeff of Al 12.8 Plt Count 479 H MPV 9.5 Immature Gran % (Auto) 0.400 Neut % (Auto) 65.2 Lymph % (Auto) 23.9 [place] % (Auto) 7.1 Eos % (Auto) 2.5 Baso % (Auto) 0.9 Absolute Neuts (auto) 7.6 Absolute Lymphs (auto) 2.77 Nucleated RBC % 0 Sodium 139 Potassium 3.8 Chloride 106 Carbon Dioxide 22.4 Anion Gap 11 BUN 8 Creatinine 1.02 Estim Creat Clear Calc 78.65 Est GFR (MDRD) Non-Af 68 BUN/Creatinine Ratio 7.6 L Glucose 70 Calcium 8.9 Urine Color Yellow Urine Clarity Clear Urine pH 6.5 Ur Specific [place] 1.015 Urine Protein 15 H Urine Glucose (UA) Normal Urine Ketones Negative Urine Occult Blood 50 H Urine Nitrite Negative Urine Bilirubin Negative Urine Urobilinogen Normal Ur Leukocyte Esterase 25 H Urine RBC 0 SEEN Urine WBC 0 SEEN Ur Squamous Epith Cells 0-5 SEEN Amorphous Sediment 1+ Urine Bacteria 1+ Urine Mucus 0 SEEN Radiography Diagnostic Testing: Clinical Impression(s) from Imaging Studies Abdomen/Pelvis CT 02/01/25 20:25 IMPRESSION: No acute findings Reading Location: [place] [id number] CT of the abdomen reveals no renal calculi. Question of a distal left ureteral calculus versus phlebolith. Awaiting formal read by radiologist. Suspect it is a phlebolith. Treatment and Re-Evaluation :: Since there is no evidence of obstructing stone and patient has flank pain with bacteria we will treat with antibiotics. Culture was sent. Discharge Plan Triage Chief Complaint: Flank Pain ED Provider: Kain Ivy Dx/Rx/DC Orders Clinical Impression: Pyelonephritis of left kidney, Elevated blood-pressure reading without diagnosis of hypertension, Leukocytosis Instructions: ED Pyelonephritis, Female (Adult) Prescriptions: New cephalexin 500 mg capsule 500 mg PO Q6 Qty: 40 0RF No Action montelukast 10 mg tablet 10 mg PO QHS Patient Comments: TAKE 1 TABLET BY MOUTH EVERYDAY AT BEDTIME escitalopram oxalate 20 mg tablet 20 mg PO DAILY Patient Comments: TAKE 1 TABLET BY MOUTH EVERY DAY albuterol sulfate 90 mcg/actuation HFA aerosol inhaler 2 puff INHALATION PRN PRN (Reason: Sob &/Or Wheezing) Patient Comments: INHALE 2 PUFFS BY MOUTH INSTRUCTED EVERY 4 HOURS NEEDED FOR WHEEZING/SHORTNESS OF BREATH. tamsulosin 0.4 mg capsule 0.4 mg PO DAILY Patient Comments: TAKE 1 CAPSULE BY MOUTH EVERYDAY AT BEDTIME omeprazole 40 mg capsule,delayed release(DR/EC) 40 mg PO DAILY Patient Comments: TAKE 1 CAPSULE BY MOUTH EVERY DAY levothyroxine 50 MCG tablet 50 mcg PO DAILY candesartan 16 MG tablet 16 mg PO DAILY cholecalciferol (vitamin D3) 2,000 UNIT tablet 2 tab PO DAILY topiramate 25 mg Tablet 25 mg PO QHS bupropion HCl 300 MG tablet extended release 24 hr 300 mg PO DAILY prednisone 20 mg tablet 60 mg PO DAILY Qty: 15 0RF naproxen 500 mg tablet 500 mg PO BID Qty: 14 0RF ondansetron 4 mg tablet,disintegrating 4 mg PO Q8H PRN PRN (Reason: Nausea) Qty: 10 0RF naproxen [Naprosyn] 500 mg tablet 500 mg PO BID PRN (Reason: pain) Qty: 20 0RF Primary Care Provider: Isaac Hsu Referrals: Isaac Hsu MD [Primary Care Provider] - 3-5 Days Activity Restrictions/Additional Instructions: 1. Take antibiotics until gone 2. If you are not better within 3 days follow-up with Dr. Hsu. 3. Drink plenty of fluids Print Language: Yakut Disposition Disposition: Home, Self Care
[2025-02-01 21:20] LABS: Anion Gap 11 (5-15); BUN 8 mg/dL (4-19); BUN/Creat Ratio 7.6 RATIO (10-20); Calcium,Total 8.9 mg/dL (7.6-11.0); Carbon Dioxide 22.4 mmol/L (21.0-32.0); Chloride 106 mmol/L (98-108); Estimated Creatinine Clearance 78.65 ml/min (50-250); Glucose 70 mg/dL (70-99); Potassium 3.8 mmol/L (3.3-5.1)
[2025-02-01 21:42] VITALS: BP 141/92; PULSE 73; O2SAT 99
[2025-02-01 21:43] VITALS: BP 141/92; PULSE 73; RESP 18; TEMP 36.8; O2SAT 99
== END 2025-02-01 22:08 | disposition home or self-care (01) ==
PROVIDERS: Emergency Provider Emergency Medicine; PCP Family Medicine; Visit Provider Emergency Medicine
DX: N12 Tubulo-interstitial nephritis, not specified as acute or chronic (principal); R03.0 Elevated blood-pressure reading, without diagnosis of hypertension; D72.829 Elevated white blood cell count, unspecified; I10 Essential (primary) hypertension; R31.9 Hematuria, unspecified; R35.0 Frequency of micturition
CPT/HCPCS: 74176; 80048; 81001; 85025; 87086; 87088; 96374; 99283; A4216

== ENCOUNTER 2025-03-05 19:56 | Emergency (ER) | payer MEDICARE, MEDICAID, SELFPAY ==
[2025-03-05 19:57] VITALS: BP 142/87; PULSE 79; RESP 16; TEMP 36.8; O2SAT 100; BMI 36.0
--- NOTE | 2025-03-05 20:23 | ED.VIS.GI ---
HPI HPI - GI History of Present Illness Chief Complaint: Abd Pain Narrative Narrative: 49-year-old female past medical history of depression and anxiety presents with abdominal pain that she has had for months. She has had this chief complaint previously. She states that she presents today although it has been going on for months because it hurts. She denies any fevers or chills, no nausea or vomiting, no dysuria or hematuria. No exacerbating or alleviating factors. She denies any previous abdominal surgeries. Prior similar symptoms: Yes PFSH PFSH Medical History Thrush Lab test negative for COVID-19 virus Migraines Abdominal pain Developmental disability Anxiety Fibrocystic change of breast Depression hypercholesterolemia HTN (hypertension) Hypothyroid Home Medications ?Medication ?Instructions ?Recorded ?Last Taken ?Type candesartan 16 mg tablet 16 mg PO DAILY 12/12/15 12/24/19 05:00 History levothyroxine 50 mcg tablet 50 mcg PO DAILY 12/12/15 12/24/19 05:00 History cholecalciferol (vitamin D3) 50 2 tab PO DAILY 01/28/19 Unknown History mcg (2,000 unit) tablet albuterol sulfate 90 mcg/actuation 2 puff inhalation PRN PRN Sob &/Or 12/17/19 12/24/19 05:00 History aerosol inhaler Wheezing escitalopram oxalate 20 mg tablet 20 mg PO DAILY 12/17/19 Unknown History montelukast 10 mg tablet 10 mg PO QHS 12/17/19 Unknown History tamsulosin 0.4 mg capsule 0.4 mg PO DAILY 12/17/19 Unknown History bupropion HCl 300 mg 24 hr tablet, 300 mg PO DAILY 12/23/19 Unknown History extended release topiramate 25 mg tablet 25 mg PO QHS 12/23/19 Unknown History omeprazole 40 mg capsule,delayed 40 mg PO DAILY 02/10/20 Unknown History release prednisone 20 mg tablet 60 mg (3 x 20 mg) PO DAILY #15 tabs 03/01/22 Unknown Rx naproxen 500 mg tablet 500 mg PO BID #14 tabs 08/13/22 Unknown Rx ondansetron 4 mg disintegrating 4 mg PO Q8H PRN PRN Nausea #10 tabs 10/14/22 Unknown Rx tablet naproxen 500 mg tablet (Naprosyn) 500 mg PO BID PRN pain #20 tabs 01/17/24 Unknown Rx cephalexin 500 mg capsule 500 mg PO Q6 #40 CAPSULES 02/01/25 Unknown Rx buspirone 5 mg tablet 5 mg PO BID 03/05/25 Unknown History cyanocobalamin (vitamin B-12) 1,000 mcg PO DAILY 03/05/25 Unknown History 1,000 mcg tablet folic acid 1 mg tablet 1 mg PO DAILY 03/05/25 Unknown History levothyroxine 75 mcg tablet 75 mcg PO DAILY 03/05/25 Unknown History naratriptan 2.5 mg tablet 2.5 mg PO UD 03/05/25 Unknown History sucralfate 100 mg/mL oral ml PO 03/05/25 Unknown History suspension topiramate 25 mg sprinkle capsule 50 mg PO BID 03/05/25 Unknown History venlafaxine 75 mg tablet 75 mg PO Q8H 03/05/25 Unknown History Allergy/AdvReac Type Severity Reaction Status Date / Time amphetamine aspartate (From Allergy Itching Verified 03/05/25 19:58 Adderall) amphetamine sulfate (From Allergy Itching Verified 03/05/25 19:58 Adderall) dextroamphetamine saccharate Allergy Itching Verified 03/05/25 19:58 (From Adderall) dextroamphetamine sulfate Allergy Itching Verified 03/05/25 19:58 (From Adderall) sumatriptan (From Imitrex) Allergy Chest Verified 03/05/25 19:58 tightness sumatriptan succinate (From Allergy Chest Verified 03/05/25 19:58 Imitrex) tightness venom-honey bee Allergy Anaphylaxis Verified 03/05/25 19:58 Family History Father Cancer Surgical History History of tubal ligation Status post fine needle aspiration History of esophagogastroduodenoscopy (EGD) History of dilation and curettage Social History household members: family Smoking Status: Never smoker substance use type: does not use ROS ROS ED ROS Narrative Review of systems positive for epigastric abdominal pain. No fevers or chills, no nausea or vomiting, no exacerbating or alleviating factors. When asked what type of pain she states it hurts. EXAM Physical Exam Narrative Exam Narrative: Afebrile. Vital signs noted. Nontoxic-appearing. Cardiovascular examination reveals a regular rate and rhythm. Lungs are clear to auscultation bilaterally. The abdomen is soft with mild epigastric tenderness but no guarding or rebound. Negative [place] sign. Positive bowel sounds. Neurological examination nonfocal, nonlateralizing. Ambulatory in ED. Const Vital Signs: 03/05/25 19:57 03/05/25 21:37 Temperature 98.2 F Temperature Source Oral Pulse Rate 79 74 Respiratory Rate 16 20 H Blood Pressure 142/87 H 139/93 H Blood Pressure Mean 105 108 Pulse Ox 100 97 Oxygen Delivery Method Room Air Room Air MDM MDM MDM Narrative Medical decision making narrative: Reviewed the patient's prior records. She has had visits for abdominal pain which she states has been ongoing for months. I feel she has a nonsurgical abdomen and currently I do not feel that she requires any CT imaging. I will check her laboratory work to look for pancreatitis and gastritis is also in the differential as well as nonspecific abdominal pain. In review of her prior ED visits, she had good relief with Toradol 30 mg intravenously which was administered. I reviewed her laboratory work and she has slight leukocytosis of 11.3 which I think is nonspecific, normal hemoglobin of 13.6, hematocrit 40.2, platelet count slightly elevated at 489. CMP is grossly unremarkable with normal LFTs. Normal sodium and potassium. BUN and creatinine normal. Glucose 89. Lipase normal at 21 so I doubt pancreatitis. Urinalysis negative for infection with 0-5 WBCs. I do not feel antibiotics are indicated. Upon repeat examination, she states she feels the same. She had no rebound or guarding on her abdominal examination. She will be given a GI cocktail and told to follow-up with her primary care provider. IFISH can be discharged to follow-up. Return instructions reviewed. Disposition is discharged home in stable condition. History & Record Review Discussion w/independent historian: Patient Additional record(s) reviewed:: Prior ED visit Lab Data Attestation: I reviewed the patient's lab results. Labs: Laboratory Results - last 24 hr 03/05/25 21:10 WBC 11.3 H RBC 4.86 Hgb 13.6 Hct 40.2 MCV 82.7 MCH 28.0 MCHC 33.8 RDW Std Deviation 37.7 RDW Coeff of Al 12.5 Plt Count 489 H MPV 9.9 Immature Gran % (Auto) 0.400 Neut % (Auto) 64.4 Lymph % (Auto) 25.6 [place] % (Auto) 6.1 Eos % (Auto) 2.5 Baso % (Auto) 1.0 Absolute Neuts (auto) 7.3 Absolute Lymphs (auto) 2.90 Nucleated RBC % 0 Sodium 139 Potassium 3.8 Chloride 103 Carbon Dioxide 24.5 Anion Gap 11 BUN 8 Creatinine 0.93 Estim Creat Clear Calc 82.83 Est GFR (MDRD) Non-Af 76 BUN/Creatinine Ratio 9.0 L Glucose 89 Calcium 9.2 Total Bilirubin 0.33 AST 13 ALT 12 Alkaline Phosphatase 96 Total Protein 6.6 Albumin 4.0 Globulin 2.6 Albumin/Globulin Ratio 1.5 Lipase 21 Urine Color Yellow Urine Clarity Cloudy Urine pH 7.0 Ur Specific [place] 1.010 Urine Protein 15 H Urine Glucose (UA) Normal Urine Ketones Negative Urine Occult Blood Negative Urine Nitrite Negative Urine Bilirubin Negative Urine Urobilinogen 1 H Ur Leukocyte Esterase 25 H Urine RBC 0-5 SEEN Urine WBC 0-5 SEEN Ur Squamous Epith Cells 0-5 SEEN Amorphous Sediment 3+ Urine Bacteria 2+ Urine Mucus 0 SEEN Urine Test Negative Discharge Plan Triage Chief Complaint: Abd Pain ED Provider: Ignacio Vargas Dx/Rx/DC Orders Clinical Impression: Chronic abdominal pain, Epigastric pain Instructions: ED Abdominal Pain Unkn Cause Fem Prescriptions: No Action montelukast 10 mg tablet 10 mg PO QHS Patient Comments: TAKE 1 TABLET BY MOUTH EVERYDAY AT BEDTIME escitalopram oxalate 20 mg tablet 20 mg PO DAILY Patient Comments: TAKE 1 TABLET BY MOUTH EVERY DAY albuterol sulfate 90 mcg/actuation HFA aerosol inhaler 2 puff INHALATION PRN PRN (Reason: Sob &/Or Wheezing) Patient Comments: INHALE 2 PUFFS BY MOUTH INSTRUCTED EVERY 4 HOURS NEEDED FOR WHEEZING/SHORTNESS OF BREATH. tamsulosin 0.4 mg capsule 0.4 mg PO DAILY Patient Comments: TAKE 1 CAPSULE BY MOUTH EVERYDAY AT BEDTIME omeprazole 40 mg capsule,delayed release(DR/EC) 40 mg PO DAILY Patient Comments: TAKE 1 CAPSULE BY MOUTH EVERY DAY levothyroxine 50 MCG tablet 50 mcg PO DAILY candesartan 16 MG tablet 16 mg PO DAILY cholecalciferol (vitamin D3) 2,000 UNIT tablet 2 tab PO DAILY topiramate 25 mg Tablet 25 mg PO QHS bupropion HCl 300 MG tablet extended release 24 hr 300 mg PO DAILY prednisone 20 mg tablet 60 mg PO DAILY Qty: 15 0RF naproxen 500 mg tablet 500 mg PO BID Qty: 14 0RF ondansetron 4 mg tablet,disintegrating 4 mg PO Q8H PRN PRN (Reason: Nausea) Qty: 10 0RF naproxen [Naprosyn] 500 mg tablet 500 mg PO BID PRN (Reason: pain) Qty: 20 0RF cephalexin 500 mg capsule 500 mg PO Q6 Qty: 40 0RF buspirone 5 mg tablet 5 mg PO BID sucralfate 100 mg/mL suspension PO cyanocobalamin (vitamin B-12) 1,000 mcg tablet 1,000 mcg PO DAILY levothyroxine 75 mcg tablet 75 mcg PO DAILY folic acid 1 mg tablet 1 mg PO DAILY naratriptan 2.5 mg tablet 2.5 mg PO UD venlafaxine 75 mg tablet 75 mg PO Q8H topiramate 25 mg capsule, sprinkle 50 mg PO BID Primary Care Provider: Isaac Hsu Referrals: Isaac Hsu MD [Primary Care Provider] - As soon as possible Activity Restrictions/Additional Instructions: Follow-up with your primary care provider regarding your chronic abdominal pain that you have had for months. Return with fever, new or worsening symptoms. Print Language: Bangladeshi Disposition Disposition: Home, Self Care
--- OUTSIDE RECORDS SUMMARY | 2025-03-05 20:29 | XMS RPT_ITS | CCD ---
Author Organization [facility] Care Team Providers Care Member Services Coordinator Name Role Phone Davis Wheeler Unavailable Unavailable Davis Wheeler Unavailable Unavailable GREGORY GALINDO Attending Unavailable GREGORY GALINDO Primary Care Unavailable GREGORY GALINDO Admitting Unavailable GANYOAN LUCILLE PATTIE Referring Unavailable GANTA LUCILLE PATTIE Consulting Unavailable PROVIDER, UNKNOWN Consulting Unavailable Leny Hsu MD Primary Care Provider Lucille Pacheco MD Primary Care Provider Leny Hsu MD Primary Care Provider Leny Hsu MD Primary Care Provider Leny Hsu MD Primary Care Provider LENY HSU Primary Care Unavailab NICOLE Gayle Referring Unavailable LENY HSU Primary Care Unavailab NICOLE Gayle Referring Unavailable Leny Hsu MD Primary Care Provider Podlogar CARTOON ARTIST.Lydia GARVIN Unavailable [place] CARTOON ARTIST.Bradley GARVIN Unavailable [place] CARTOON ARTIST.Bradley GARVIN Unavailable [place] CARTOON ARTIST.BHARATHI Bradley Unavailable [place] CARTOON ARTIST.BHARATHI Bradley Unavailable [place] CARTOON ARTIST.BHARATHI Bradley Unavailable Dr. Isaac Hsu MD Primary Care Provider Dr. Kain Ivy MD Emergency Provider [phone] Isaac Hsu Primary Care Unavailable Biju, Kain Attending Unavailable LENY HSU Referring Unavailab LENY Cisneros Primary Care Unavailab KIRK Forman Attending Unavailable JORDIN DICKERSON Referring Unavailable LENY HSU Primary Care Unavailab KIRK Forman Attending Unavailable KIRK CAST Referring Unavailable LENY HSU Primary Care Unavailab LENY Cisneros Attending Unavailab LENY Cisneros Primary Care Unavailab LENY Cisneros Primary Care Unavailab ELLA Hanson Attending Unavailable EMA ABDULLAHI Attending Unavailable LENY HSU Primary Care Unavailab LYDIA Shelton Attending Unavailable LENY HSU Primary Care Unavailab KEV Hall Attending Unavailable SELF Referring Unavailable LENY HSU Primary Care Unavailab LENY Cisneros Attending Unavailab LENY Cisneros Primary Care Unavailab LENY Cisneros Referring Unavailab LENY Cisneros Primary Care Unavailab LENY Cisneros Referring Unavailab LENY Cisneros Primary Care Unavailab LENY Cisneros Referring Unavailab LENY Cisneros Primary Care Unavailab JORDIN Hogan Referring Unavailable LENY HSU Primary Care Unavailab JORDIN Hogan Referring Unavailable LENY HSU Primary Care Unavailab LENY Cisneros Attending Unavailab LENY Cisneros Primary Care Unavailab KRISTY Montaño Attending Unavailable LENY HSU Primary Care Unavailab LENY Cisneros Attending Unavailab LENY Cisneros Primary Care Unavailab le Allergies Allergy Classification Reported Allergen(s) Allergy Type Date of Onset Reaction(s) Facility Amphetamine (2 sources) Amphetamine Drug Allergy 12-14-19 17 Itching [facility] Amphetamine aspartate / Amphetamine Sulfate / Dextroamphetamine saccharate / Dextroamphetamine Sulfate (2 sources) Amphetamine aspartate / Amphetamine Sulfate / Dextroamphetamine saccharate / Dextroamphetamine Sulfate Drug Allergy 02-23-20 15 Itching [facility] Work Phone: Bee pollen (2 sources) Bee pollen Drug Allergy 01-24-20 19 Anaphylaxis [facility] Serotonin-1b and Serotonin-1d Receptor Agonists (2 sources) SUMAtriptan Drug Allergy 01-12-20 15 Other: See Comments [facility] (1 source) SUMAtriptan Drug Allergy [facility] Repository (20 sources) Amphetamine aspartate / Amphetamine Sulfate / Dextroamphetamine saccharate / Dextroamphetamine Sulfate; Translations: [DEXTROAMPHETAMINE-A MPHETAMINE] Drug Allergy 02-23-20 15 Itching [facility] Work Phone: (20 sources) Bee pollen; Translations: [BEE POLLEN] Drug Allergy 01-24-20 19 Anaphylaxis [facility] (20 sources) SUMAtriptan; Translations: [SUMATRIPTAN] Drug Allergy 01-12-20 Other: See Comments [facility] Work Phone: (6 sources) Amphetamine; Translations: [amphetamine aspartate] Drug Allergy 05-19-[address] [facility] (6 sources) Amphetamine; Translations: [amphetamine sulfate] Drug Allergy 05-19-[address] [facility] (6 sources) Dextroamphetamine; Translations: [dextroamphetamine saccharate] Drug Allergy 05-19-[address] [facility] (6 sources) Dextroamphetamine; Translations: [dextroamphetamine sulfate] Drug Allergy 05-19-[address] [facility] (6 sources) SUMAtriptan; Translations: [sumatriptan succinate] Drug Allergy 05-19-[address] [facility] (5 sources) venom-honey bee Allergy to substance 05-19-[address] [facility] (20 sources) Amphetamine; Translations: [AMPHETAMINE] Drug Allergy 12-14-19 17 Itching [facility] (1 source) SUMAtriptan Drug Allergy 02-02-20 [facility] Repository (1 source) venom-honey bee Drug allergy (disorder) 02-02-20 [facility] Repository Medications Current Medications Medication Drug Class(es) Dates Sig (Normalized) Sig (Original) [id number] 200 actuat albuterol 0.09 mg/actuat metered dose inhaler (20 sources) beta2-Adrenergic Agonist Start: 08-17-2021 End: 06-25-2024 take 2 puff(s) by inhalation every four hours as needed for wheezing albuterol HFA (VENTOLIN HFA) 90 mcg/actuation inhaler Inhale 2 Puffs as instructed every 4 hours as needed for wheezing/shortnes s of breath. 18 g 4 06/25/2024 Active Start: 12-17-2019 Albuterol Sulf ate 90 mcg/actuation HFA aerosol inhaler Active 2 NMA INHALATION NEEDED as needed for Sob &/Or Wheezing December 17, 2019 12:00am Start: 12-17-2019 Albuterol Sulf ate Active 2 [...] 04/14/2025 Active Start: 12-13-2016 End: 12-17-2019 take 1 tablet by mouth once daily Bupropion Hcl 150 MG tablet extended release 24 hr Discontinued 150 mg PO DAILY December 13, 2016 12:00am December 17, 2019 11:51am Comment on above: Take 1 tablet by kristina once daily. busPIRone hydrochloride 5 mg oral tablet (20 sources) Start: 05-09-20 End: 05-10-20 take 1 tablet by mouth twice daily busPIRone (BUSPAR) 5 mg tablet Take 1 tablet by mouth two times a day. 180 tablet 1 11/11/2024 05/10/2025 Active Comment on above: Take 1 tablet by kristina th twice daily. TAKE 1 TABLET BY KRISTINA TH TWICE A DAY Take 1 tablet by kristina th two times a day. cephalexin 500 mg oral capsule (3 sources) Cephalosporin Antibacterial Start: 02-02-20 25 cephALEXin (KEFLEX) 500 mg capsule Take 500 mg by mouth. 02/02/2025 Active cholecalciferol 0.05 mg oral tablet (20 sources) Vitamin D Start: 05-24-20 20 End: 03-30-20 take 1 capsule by mouth once daily cholecalciferol, vitamin D3, 100 mcg (4,000 unit) cap Take 1 capsule by mouth once daily. 90 capsule 3 10/19/2021 03/30/2022 Discontinued Start: 01-28-2019 End: 09-17-2024 take 2 tablets by mouth once daily VITAMIN D-3 50 mcg (2,000 unit) tablet TAKE 2 TABLETS (4000 UNITS) BY MOUTH ONCE DAILY 180 tablet 3 09/17/2024 Active Start: 01-28-2019 Cholecalcifero l (Vitamin D3) 2,000 UNIT tablet Active 2 {tbl} PO DAILY January 28, 2019 12:00am Comment on above: Take 1 capsule by [facility] once daily. TAKE 2 TABLETS (4000 [...] contrast guidelines escitalopram 20 mg oral tablet (5 sources) Serotonin Reuptake Inhibitor Start: take 1 tablet by mouth once daily Escitalopram Oxalate 20 mg tablet Active 20 mg PO DAILY December 17, 2019 12:00am famotidine [...] (FLONASE) 50 mcg/actuation nasal spray Use 1 [place] in each nostril twice daily. Rinse mouth after use. 16 g 1 03/14/2022 08/30/2022 Discontinued (Discontinued by Patient) Comment on above: Use 1 [place] in each nostril twice daily. Rinse mouth after use. folic acid 1 mg oral tablet (20 sources) Start: End: take 1 tablet by mouth once daily folic acid 1 mg tablet Take 1 tablet by mouth once daily. 90 tablet 1 10/16/2024 Active Comment on above: Take 1 tablet by kristina once daily. iv contrast (will be provided with radiology test) (1 source) Start: End: iv contrast (will be provided with radiology [...] in the CT contrast administration guidelines link. levothyroxine sodium 0.075 mg oral tablet (20 sources) l-Thyroxine Start: 021 End: 025 take 1 tablet by mouth once daily for thyroid dysfunction levothyroxine (SYNTHROID) 75 mcg tablet Take 1 tablet by mouth once daily. Take on empty stomach. For Thyroid 90 tablet 1 11/11/2024 05/10/2025 Active Start: 12-12-2015 take 1 tablet by kristina th once daily Levothyroxine 50 MCG tablet Active 50 ug PO DAILY December 12, 2015 12:00am Comment on above: Take 1 tablet by kristina th once daily. Take on empty stomach. For Thyroid loratadine 10 mg oral tablet (20 sources) Start: 3 End: 5 take 1 tablet by mouth once daily loratadine (CLARITIN) 10 mg tablet Indications: Seasonal allergic rhinitis, unspecified trigger Take 1 tablet by mouth once daily. 90 tablet 1 01/08/2025 07/07/2025 Active Comment on above: Take 1 tablet by kristina th once daily. montelukast 10 mg oral tablet (5 sources) Leukotriene Receptor Antagonist Start: 0 take 1 tablet by mouth at bedtime Montelukast 10 mg tablet Active 10 mg PO AT BEDTIME December 17, 2019 12:00am naproxen 500 mg oral tablet (8 sources) Nonsteroidal Anti-inflammatory Drug Start: 3 End: 4 take 1 tablet by mouth twice daily as needed for pain Naproxen (Naprosyn) 500 mg tablet Active 500 mg PO TWICE A DAY as needed for pain 20 0 January 17, 2024 12:00am naratriptan 2.5 mg oral tablet (20 sources) Serotonin-1b and Serotonin-1d Receptor Agonist Start: 3 End: 5 take 1 mg by mouth every twenty-four [...] doses in a month. 10 tablet 1 03/02/2025 Active Comment on above: Take 1 tablet [...] capsule (20 sources) Proton Pump Inhibitor Start: 5 End: 5 take 1 capsule by mouth twice daily omeprazole (PRILOSEC) 40 mg capsule Take 1 capsule by mouth two times a day. 180 capsule 1 12/13/2024 06/11/2025 Active Start: 03-28-2021 End: 09-10-2022 take 1 capsule by mouth twice daily omeprazole (PRILOSEC) 40 mg capsule Indications: Gastroesophageal reflux disease with esophagitis without hemorrhage Take 1 capsule by mouth twice daily. 60 capsule 5 03/28/2021 03/14/2022 Discontinued Start: 02-10-2020 End: 05-10-2025 take 1 capsule by mouth once daily omeprazole (PRILOSEC) 40 mg capsule Take 1 capsule by mouth once daily. 90 capsule 08/20/2024 11/11/2024 Discontinued Start: 03-12-2016 omeprazole (IA ILOSEC) 40 mg capsule Take 20 mg by mouth. 0 03/12/2016 Active Comment on above: Take 1 capsule by mo ut twice daily. Take 20 mg by mouth. Take 1 capsule by mo uth once daily. ondansetron 4 mg disintegrating oral tablet (4 sources) Serotonin-3 Receptor Antagonist Start: 3 take 1 tablet by mouth every eight hours as needed for nausea Ondansetron 4 mg tablet,disintegrati ng Active 4 mg PO EVERY 8 HOURS NEEDED as needed for Nausea 10 0 Huong 8th, 2023 12:00am Start: 02-22-2022 End: 03-24-2022 take 1 tablet by mouth every six hours as needed ondansetron orally disintegrating (ZOFRAN ODT) 4 mg disintegrating tablet Take 1 tablet by mouth every 6 hours as needed for nausea/vomiting. 30 tablet 0 02/22/2022 03/24/2022 Active Comment on above: Take 1 tablet by kristina th every 6 hours as needed for nausea/vomiting. predniSONE 20 mg oral tablet (4 sources) Start: 03-01-20 take 3 tablets by mouth once daily Prednisone 20 mg tablet Active 60 mg PO DAILY March 01, 2022 12:00am Start: 03-01-2022 take 60 mg by mouth once daily Prednisone Active 60 MG PO DAILY March 01, 2022 12:00am tamsulosin hydrochloride 0.4 mg oral capsule (20 sources) alpha-Adrenergic Emil Start: 12-17-2019 End: 12-13-2022 take 1 capsule by mouth once daily Tamsulosin 0.4 mg capsule Active 0.4 mg PO DAILY December 17, 2019 12:00am Comment on above: Take 1 capsule by mo uth daily at bedtime. topiramate 25 mg oral tablet (20 sources) Start: 03-02-2025 End: 05-31-2025 take 3 tablets by mouth twice daily topiramate (TOPAMAX) 25 mg tablet Take 3 tablets by mouth two times a day. 180 tablet 2 03/02/2025 05/31/2025 Active Start: 08-15-2021 End: 04-14-2025 take 2 capsules by mouth twice daily topiramate (TOPAMAX) 25 mg capsule Indications: Migraine without aura and without status migrainosus, not intractable Take 2 capsules by mouth two times a day. 360 capsule 1 10/16/2024 03/02/2025 Discontinued Start: 12-23-2019 take 1 tablet by kristina th at bedtime Topiramate 25 mg Tablet Active 25 mg PO AT BEDTIME December 23, 2019 12:00am Comment on above: Take 50 mg PO in the morning and 25 mg at night. Take 2 capsules by m outh twice daily. Take 2 capsules by m outh two times a day. 24 hr venlafaxine 150 mg extended release oral capsule (20 sources) Serotonin and Norepinephrine Reuptake Inhibitor Start: 03-02-20 End: 05-31-20 take 1 capsule by mouth once daily venlafaxine ER (EFFEXOR XR) 150 mg 24 hr capsule Take 1 capsule by mouth once daily. 30 capsule 2 03/02/2025 05/31/2025 Active Start: 10-28-2024 End: 12-09-2024 take 1 tablet by mouth three times daily venlafaxine (EFFEXOR) 75 mg tablet Indications: Moderate episode of recurrent major depressive disorder (HCC) , CRISTINO (generalized anxiety disorder) Take 1 tablet by mouth three times a day. 270 tablet 12/09/2024 Active Start: 06-23-2023 End: 10-28-2024 take 1 tablet by mouth twice daily venlafaxine (EFFEXOR) 100 mg tablet Indications: Moderate episode of recurrent major depressive disorder (HCC) Take 1 tablet by mouth two times a day. 180 tablet 1 05/28/2024 10/28/2024 Discontinued Start: 01-08-2023 take 1 tablet by [facility] twice daily venlafaxine (EFFEXOR) 100 mg tablet [...] on above: [facility] 2 tablets [facility]. Take 1 tablet by kristina twice daily. Take 1 tablet by kirstina two times a day. vitamin b12 1 mg oral tablet (20 sources) Vitamin B12 Start: 09-19-2023 End: 08-27-2024 take 1 tablet by mouth once daily cyanocobalamin (VITAMIN B-12) 1,000 mcg tab TAKE 1 TABLET BY MOUTH DAILY 28 tablet 11 08/27/2024 Active Comment on above: Take 1 tablet by kristina once daily. Completed/Discontinued Medications Medication Drug Class(es) [...] on above: Freestyle LITE Meter Kit - calcium chloride 0.0014 meq/ml / potassium chloride 0.004 meq/ml / sodium chloride 0.103 meq/ml / sodium lactate 0.028 meq/ml injectable solution (1 source) Start: 10-25-19 End: 10-25-19 take 30 mL intravenously every hour 30 mL/hr, INTRAVENOUS, CONTINUOUS, Starting on Sun10/24/24 at 1130, Until Sun10/24/24 at 1212, Preprocedure candesartan cilexetil 4 mg oral tablet (7 sources) Angiotensin 2 Receptor Emil Start: 08-17-19 End: 09-20-19 take 1 tablet by mouth once daily candesartan (ATACAND) 4 mg tablet Indications: Essential hypertension with goal blood pressure less than 140/90 Take 1 tablet by mouth once daily. 0 09/19/2021 Active Start: 12-12-2015 take 1 tablet by kristina th once daily Candesartan 16 MG tablet Active 16 mg PO DAILY December 12, 2015 12:00am Comment [...] on above: Take 1 capsule by mo [facility] twice daily. citalopram 40 mg oral tablet (5 sources) Serotonin Reuptake Inhibitor Start: 016 End: take 1 tablet by mouth once daily Citalopram 40 MG tablet Discontinued 40 mg PO DAILY December 12, 2015 12:00am December 17, 2019 11:39am dicyclomine hydrochloride 10 mg oral capsule (9 sources) Anticholinergic Start: 022 End: 023 take 1 capsule by mouth three times daily as needed for pain dicyclomine (BENTYL) 10 mg capsule Indications: Irritable bowel syndrome with both constipation and diarrhea Take 1 capsule by mouth three times daily as needed (for abdominal pain). 30 capsule 2 03/30/2022 08/30/2022 Discontinued (Discontinued by Patient) Comment on above: Take 1 capsule by mo [facility] three times daily as needed (for abdominal pain). diphenhydrAMINE (1 source) Histamine-1 Receptor Antagonist Start: End: 12.5-50 mg, INTRAVENOUS, DIRECTED, Starting on Sun10/24/24 at 1200, Until Sun10/24/24 at 1559, DOSING DIRECTED BY PHYSICIAN FOR PROCEDURAL SEDATION ONLY, Intraprocedure esomeprazole 40 mg delayed release oral capsule (5 sources) Proton Pump Inhibitor Start: End: take 1 capsule by mouth twice daily Esomeprazole Magnesium 40 MG capsule Discontinued 40 mg PO TWICE A DAY January 28, 2019 12:00am February 10, 2020 1:37pm etodolac 400 mg oral tablet (10 sources) Nonsteroidal Anti-inflammatory Drug Start: End: take 1 tablet by mouth twice daily etodolac (LODINE) 400 mg tablet TAKE 1 TABLET BY MOUTH TWICE A DAY 60 tablet 0 03/07/2022 08/15/2022 Discontinued (Course of therapy completed) Comment on above: TAKE 1 TABLET BY KRISTINA TWICE A DAY Take 1 tablet by kristina twice daily. 1 ml fentaNYL 0.05 mg/ml injection (1 source) Opioid Agonist Start: End: 25-100 mcg, INTRAVENOUS, DIRECTED, Starting on Sun10/24/24 [...] Prep Kit hydroCHLOROthiazide 25 mg oral tablet (5 sources) Thiazide Diuretic Start: 2015 End: 2019 take 1 tablet by mouth once daily Hydrochlorothiazide 25 MG tablet Discontinued 25 mg PO DAILY December 12, 2015 12:00am December 17, 2019 11:51am 10 ml lidocaine hydrochloride 10 mg/ml injection (1 source) Antiarrhythmic, Amide Local Anesthetic Start: 2021 End: 2021 lidocaine (PF) 10 mg/mL (1 %) 4 mL injection (XYLOCAINE) Start: 01-12-2022 End: 01-12-2022 lidocaine (PF) 10 mg/mL (1 % ) 4 mL injection (XYLOCAINE) meloxicam 15 mg oral tablet (20 sources) [...] mg/ml injection (1 source) Benzodiazepine Start: End: 04-18-2 025 1-5 mg, INTRAVENOUS, DIRECTED, Starting on Sun10/24/24 at 1200, Until Sun10/24/24 at 1559, DOSING DIRECTED BY PHYSICIAN FOR PROCEDURAL SEDATION ONLY, Intraprocedure nitrofurantoin, macrocrystals 25 mg / nitrofurantoin, monohydrate 75 mg oral capsule (5 sources) Nitrofuran Antibacterial Start: End: take 1 capsule by mouth every twelve hours at mealtime Nitrofurantoin Monohyd/M-Cryst (Macrobid) 100 mg capsule Discontinued 100 mg PO Q12H 10 5 0 January 22, 2021 12:00am January 26, 2021 12:00am January 27, 2021 12:01am must administer with a meal/food nystatin [id number] unt/ml oral suspension (5 sources) Polyene Antifungal Start: End: Nystatin 100,000 unit/mL suspension Discontinued 5 mL PO THREE TIMES A DAY 450 30 0 May 19, 2021 1:00am June 17, 2021 1:00am 2021 1:01am administer 1/2 of dose in each side of the mouth Start: 05-19-2021 End: 2021 Nystatin Discontinued 5 ML P O THREE TIMES A DAY 450 30 May 19, 2021 1:00am 2021 1:01am administer 1/2 of dose in each side of the mouth pantoprazole 40 mg delayed release oral tablet (7 sources) Proton Pump Inhibitor Start: 03-30-2022 End: 08-15-2022 take 1 tablet by mouth twice daily [...] solution (3 sources) alpha-1 Adrenergic Agonist Start: 04-24-2024 End: 04-24-2024 PHENYLephrine 2.5 % 1 Drop (AK-DILATE, MARISELA-SYNEPHRINE) Start: 04-24-2024 End: 04-24-2024 1 Drop, BOTH EYES, ONCE, 1 d ose, On Mary 04/24/24 at 0900, FOR OPHTHALMIC USE ONLY PROTECT FROM LIGHT Start: 06-15-2023 End: 06-15-2023 PHENYLephrine 2.5 % 1 Drop ( AK-DILATE, MARISELA-SYNEPHRINE) polyethylene glycol 3350 98840 mg powder for oral solution (20 sources) [...] Start: 10-19-2021 End: 03-30-2022 polyethylene glycol 3350 (OR RALAX, GLYCOLAX) 17 gram/dose powder Indications: Screening [...] oral suspension (20 sources) Aluminum Complex Start: End: take 10 mL by mouth twice daily [...] Sucralfate (Carafate) 1 gram tablet Discontinued 1 g PO before meals and at bedtime 120 30 0 February 10, 2020 12:00am March 10, 2020 12:00am March 11, 2020 12:02am Comment on above: Take 10 mL by mouth two times a day. Take 1 tablet by kristina th two times a day. TAKE 10ML BY MOUTH T WICE A DAY tropicamide 10 mg/ml ophthalmic solution (3 sources) Anticholinergic Start: 04-24-2024 End: 04-24-2024 tropicamide 1 % 1 Drop (MYDRIACYL) Start: 04-24-2024 End: 04-24-2024 1 Drop, BOTH EYES, ONCE, 1 d ose, On Mary 04/24/24 at 0900, FOR THE EYE Start: 06-15-2023 End: 06-15-2023 tropicamide 1 % 1 Drop (MYDR IACYL) Problems Active Problems Problem Classification Problem Date Documented Date Episodic/Chronic Adjustment disorders (2 sources) Grief finding; Translations: [Adjustment disorder with depressed mood] Onset: 10-29-1910-28-2024 Chronic Anxiety disorders (7 sources) Mixed anxiety and depressive disorder; Translations: [Other specified anxiety disorders] Onset: 10-29-1903-16-2023 Chronic Blindness and vision defects (3 sources) Blurring of visual image; Translations: [Other visual disturbances] 06-05-2023 Episodic Deficiency and other anemia (1 source) Microcytic anemia; Translations: [Iron deficiency anemia, unspecified] 02-05-2024 Episodic Developmental disorders (17 sources) Developmental disorder; 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] 10-21-2024 Chronic Diseases of white blood cells (1 source) Leukocytosis; Translations: [Elevated white blood cell count, unspecified] 02-01-2025 Chronic Disorders of lipid metabolism (4 sources) Hypercholesterolemia 01-26-2022 Chronic E Codes: Natural/environment (5 sources) Insect bite - wound; Translations: [Bitten [...] 01-12-20 15 01-11-2015 Chronic Headache; including migraine (10 sources) Headache; Translations: [Headache] 05-19-2021 Episodic Menstrual disorders (20 sources) Menorrhagia; Translations: [Excessive and frequent menstruation with regular cycle] Onset: 10-08-19 14 10-07-2013 Chronic Mood disorders (20 sources) Depressive disorder; Translations: [Depression] Onset: 07-17-19 24 05-04-2021 Chronic Mycoses (8 sources) Candidiasis of mouth; Translations: [Candidal stomatitis] 05-19-2021 Episodic Nausea and vomiting (7 sources) Nausea; Translations: [Nausea] Episodic Neoplasms of unspecified nature or uncertain behavior (2 sources) Thrombocytosis; Translations: [Thrombocytosis] Episodic Nonmalignant breast conditions (5 sources) Fibrocystic disease of breast; Translations: [Diffuse cystic mastopathy of unspecified breast] 10-16-2017 Chronic Nonspecific chest pain (1 source) Chest pain; Translations: [Other chest pain] 01-02-2024 Episodic Osteoarthritis (2 sources) Osteoarthritis of joint of right shoulder region; Translations: [Primary osteoarthritis, right shoulder] Chronic Other circulatory disease (1 source) Elevated blood-pressure reading without diagnosis of hypertension; Translations: [Elevated blood-pressure reading, without diagnosis of hypertension] 02-01-2025 Episodic Other connective tissue disease (1 source) Impingement [...] noninflammatory disorders of vagina] 11-10-2024 Episodic Other gastrointestinal disorders (4 sources) Irritable [...] right wrist] Episodic Other non-traumatic joint disorders (2 sources) Pain in elbow; Translations: [Pain in right elbow] Episodic Other non-traumatic joint disorders (2 sources) Pain in right shoulder; Translations: [Pain in joint, shoulder region] 09-19-2021 Episodic Other nutritional; endocrine; and metabolic disorders (2 sources) Obesity caused by energy imbalance; Translations: [Other obesity due to excess calories] 01-14-2024 Chronic Other nutritional; endocrine; and metabolic disorders (20 sources) Obesity; Translations: [Obesity, unspecified] Onset: 01-14-2001-14-2024 Chronic Other skin disorders (1 source) Foot callus; Translations: [Corns and callosities] 02-19-2024 Episodic Other upper respiratory disease (4 sources) Seasonal allergic rhinitis; Translations: [Other seasonal allergic rhinitis] 08-20-2023 Chronic Other upper respiratory infections (5 sources) Acute laryngitis; Translations: [Acute laryngitis] 06-10-2019 [...] Translations: [Cervicalgia] 09-19-2021 Episodic Sprains and strains (11 sources) Lower back injury; Translations: [Strain of muscle, fascia and tendon of lower back, initial encounter] 08-13-2022 Episodic Thyroid disorders (20 sources) Hypothyroidism; Translations: [Hypothyroidism, unspecified] Onset: 12-07-19 11 12-06-2010 Chronic Unclassified (3 sources) Patient encounter status 09-02-2024 Urinary tract infections (8 sources) Urinary tract infectious disease; Translations: [Urinary tract infection, site not specified] Onset: 02-06-20 25 01-25-2021 Episodic Viral infection (3 sources) Verruca plantaris; Translations: [Plantar wart] 01-15-2023 Episodic Past or Other Problems Problem Classification Problem Date Documented Da te Episodic/Chronic Abdominal hernia (20 sources) Gastroesophageal reflux disease with hiatal hernia; Translations: [Diaphragmatic hernia without obstruction or gangrene] Onset: 5 Episodic Abdominal pain (20 sources) Abdominal pain; Translations: [Unspecified abdominal pain] Onset: 5 Resolved: 4 Episodic Conditions associated with dizziness or vertigo (4 sources) Orthostatic hypotension; Translations: [Dizziness and giddiness] Onset: 4 06-05-2023 Episodic Genitourinary symptoms and ill-defined conditions (8 sources) Polyuria; Translations: [Polyuria] Onset: 5 Episodic Immunizations and screening for infectious disease (7 sources) Contact with or exposure to other viral diseases; Translations: [Lab test negative for COVID-19 virus] Onset: 5 05-19-2021 Episodic Nonmalignant breast conditions (5 sources) Pseudoangiomatous stromal hyperplasia of breast; Translations: [Other specified disorders of breast] Onset: 5 09-20-2023 Episodic Nutritional deficiencies (20 sources) Iron deficiency; Translations: [Iron deficiency] Onset: 4 02-28-2024 Episodic Other endocrine disorders (20 sources) Hypoglycemia; Translations: [Hypoglycemia, unspecified] Onset: 5 Resolved: 0 12-30-2019 Chronic Other female genital disorders (1 source) Other specified noninflammatory disorders of vagina; Translations: [Vaginal discharge] Onset: 5 Episodic Other female genital disorders (1 source) Other specified conditions associated with female genital organs and menstrual cycle; Translations: [Vaginal burning] Onset: 5 Episodic Other gastrointestinal disorders (1 source) Other dysphagia; Translations: [Esophageal dysphagia] Onset: 3 Episodic Other gastrointestinal disorders (20 sources) Diarrhea; Translations: [Diarrhea, unspecified] Onset: 4 Resolved: 5 01-11-2015 Episodic Other gastrointestinal disorders (1 source) Other constipation; Translations: [Chronic constipation] Onset: 5 Episodic Other screening for suspected conditions (not mental disorders or infectious disease) (20 sources) Patient encounter status; Translations: [Encounter for screening for malignant neoplasm of colon] Onset: 5 Episodic Peripheral and visceral atherosclerosis (20 sources) Intermittent claudication; Translations: [Peripheral vascular disease, unspecified] Onset: 4 Resolved: 4 03-16-2023 Chronic Syncope (5 sources) Syncope and collapse; Translations: [Syncope and collapse] Onset: 4 Episodic Results Test Name Value Interpretation Reference Range Facility 25(OH)D3 [facility] 2024 25-hydroxyvitamin D3 [Mass/Vol] 60.4 ng/mL Normal 31.0-80.0 [facility] Comment on above: Order Comment: Speci men Type: BLOOD SPECIMENOrdering Facility: [facility] Address: [address] [place] [address] Result Comment: Clas sification of 25 [place] Vitamin D status: Deficiency/Insufficiency: < or = 30 ng/ml. Sufficiency/Optimal Levels: 31-80 ng/mL Toxicity: > 100 ng/mL. Test performed by chemiluminescent immunoassay. Performed By: #### 1 989-3 ####[facility] [id number] [place] [address] [place] Juan Francisco 03-02-2025 CNOV Office Visit (FAMPWS ) MAXIMUS BRADLEY ([id number]) 1975 F Date Time Provider Department 03/02/25 1:00 PM LENY HSU During your visit today, we recorded the following information about you: Pulse Blood pressure Weight Height 88/minute 134/86 94.9 kg 1.63 m Leny Hsu MD 03/02/2025 1:56 PM Signed Chief Complaint Patient presents with: 6 Month Exam Depression: States her medications are not working and need changed. Recording using Inmoo software for draft documentation of the visit was discussed with the patient/authorized account representative; all questions welcomed and answered. Patient/authorized account representative agreed to proceed HPI Maximus Bradley is a 49 year old female who presents here today for Above Complaints. Anxiety and Depression: - Worsening symptoms x4 months, coinciding with the of her mother and half-brother. - Mother 4 months ago from a CVA; half-brother recently from stomach cancer. - Current medications: Effexor 75 mg TID, BuSpar, Wellbutrin. - Recent increase in Effexor dosage from 100 mg BID to 75 mg TID did not provide relief. - Denies side effects from medication changes. - Attending counseling at [facility] [place] every Sunday. - Denies suicidal ideation; feels safe going home today. Migraines: - Increased frequency of migraines, requiring Emerge more than once a week. - No specific triggers identified; Amerge provides quick relief. - Current prophylactic medication: Topamax 50 mg BID. - Denies slurred speech, facial droop, vision changes, numbness, tingling, weakness, chest pain, palpitations, coughing, or wheezing. CRISTINO-7 10/28/2024 03/02/2025 CRISTINO-7 All Questions Feeling nervous, anxious, or on edge Nearly Everyday Nearly Everyday Not being able to stop or control worrying Nearly Everyday Nearly Everyday Worrying too much about different things Nearly Everyday Nearly Everyday Trouble relaxing Nearly Everyday Nearly Everyday Being so restless that it is hard to sit still Several days Nearly Everyday Becoming easily annoyed or irritable Several days Nearly Everyday Feeling afraid, as if something awful might happen Several days Nearly Everyday CRISTINO-7 Score 15 21 PHQ-9 More data exists 01/30/2017 02/28/2018 03/25/2019 10/28/2024 03/02/2025 PHQ-9 Scores Little interest or pleasure in doing things: Several days Nearly every day Not at all Several days Nearly every day Feeling down, depressed, or hopeless: Several days Nearly every day Not at all Nearly every day Nearly every day Trouble falling or staying asleep, or sleeping too much - Nearly every day - More than half the days Nearly every day Feeling tired or having little energy - Nearly every day - More than half the days Nearly every day Poor appetite or overeating - Nearly every day - Nearly every day Nearly every day Feeling bad about yourself - or that you are a failure or have let yourself or your family down - - - Nearly every day Nearly every day Trouble concentrating on things, such as reading the newspaper or watching television - Not at all - Nearly every day Nearly every day Moving or speaking so slowly that other people could have noticed. Or the opposite - being so fidgety or restless that you have been moving around a lot more than usual - Not at all - Several days Nearly every day Thoughts that you would be better off , or of hurting yourself in some way - - - Not at all Not at all PHQ-9 Score - - - 18 24 Details Data saved with a previous flowsheet row definition Past medical history, appointments, medications, allergies reviewed. [...] Adopted: Yes Problem Relation Age of Onset C (more content not included)... Normal [facility] Comprehensive metabolic 2000 panelon 03-02-2025 Albumin [Mass/Vol] 4.5 g/dL Normal 3.9-4.9 [facility] Comment on above: Order Comment: Speci men Type: BLOOD SPECIMENOrdering Facility: [facility] Address: [address] [place] [address] Performed By: #### 2 4323-8, 3, 2132-03 ####[facility] [id number] [place] [address] [place] ALP [Catalytic activity/Vol] 103 U/L Normal 34-123 [facility] Comment on above: Order Comment: Speci men Type: BLOOD SPECIMENOrdering Facility: [facility] Address: [address] [place] [address] Performed By: #### 2 4323-8, 3, 2132-03 ####[facility]IA [id number] [place] [address] [place] ALT [Catalytic activity/Vol] 11 U/L Normal 7-38 [facility] Comment on above: Order Comment: Speci men Type: BLOOD SPECIMENOrdering Facility: [facility] Address: [address] [place] [id number] Performed By: #### 2 4323-8, 3, 2132-03 ####[facility]IA [id number] [address] [address] [place] Anion gap [Moles/Vol] 13 mmol/L Normal 8-15 [facility] Comment on above: Order Comment: Speci men Type: BLOOD SPECIMENOrdering Facility: [facility] Address: [address] [place] [address] Performed By: #### 2 4323-8, 3, 2132-03 ####[facility] [id number] [address] [address] [place] AST [Catalytic activity/Vol] 11 U/L Low 13-35 [facility] Comment on above: Order Comment: Speci men Type: BLOOD SPECIMENOrdering Facility: [facility] Address: [address] [place], [place] [address] Performed By: #### 2 4323-8, 3, 2132-03 ####[facility] [id number] [place] [id number] [place] Bilirubin [Mass/Vol] 0.4 mg/dL Normal 0.2-1.3 [facility] Comment on above: Order Comment: Speci men Type: BLOOD SPECIMENOrdering Facility: [facility] Address: [address] [place] [address] Performed By: #### 2 4323-8, 3, 2132-03 ####[facility] [id number] [place] [id number] [place] Calcium [Mass/Vol] 9.7 mg/dL Normal 8.5-10.2 [facility] Comment on above: Order Comment: Speci men Type: BLOOD SPECIMENOrdering Facility: [facility] Address: [address] [place], [place] [address] Performed By: #### 2 4323-8, 3, 2132-03 ####[facility] [id number] [address] [address] [place] Chloride [Moles/Vol] 104 mmol/L Normal 98-107 [facility] Comment on above: Order Comment: Speci men Type: BLOOD SPECIMENOrdering Facility: [facility] Address: [address] [place] [address] Performed By: #### 2 4323-8, 3015-09, 2132-03 ####[facility] [id number] [address] [address] [place] CO2 [Moles/Vol] 22 mmol/L Normal 22-30 [facility] Comment on above: Order Comment: Speci men Type: BLOOD SPECIMENOrdering Facility: [facility] Address: [address] [place] [address] Performed By: #### 2 4323-8, 3015-09, 2132-03 ####[facility] [id number] [address] [address] [place] Creatinine [Mass/Vol] 0.87 mg/dL Normal 0.58-0.96 [facility] Comment on above: Order Comment: Speci men Type: BLOOD SPECIMENOrdering Facility: [facility] Address: [address] [place] [address] Performed By: #### 2 4328, 3015-09, 2132-03 ####[facility] [id number] [address] [address] [place] eGFRcr SerPlBld CKD-EPI 2020 82 mL/min/1.73m??? Normal >=60 [facility] Comment on above: Order Comment: Speci men Type: BLOOD SPECIMENOrdering Facility: [facility] Address: [address] [place] [address] Result Comment: Romi mated Glomerular Filtration Rate [...] actual GFR. Performed By: #### 2 4323-8, 3015-09, 2132-03 ####[facility] [id number] [address] [address] [place] Glucose [Mass/Vol] 90 mg/dL Normal 74-99 [facility] Comment on above: Order Comment: Speci men Type: BLOOD SPECIMENOrdering Facility: [facility] Address: [address] [place] [address] Result Comment: The [place] Diabetes Association (ADA) provides guidance for cutoff [...] Standards of Medical Care in Diabetes 2016, [place] [employer]. Diabetes Care. 2016.39(Suppl 1). Performed By: #### 2 4323-8, 3015-09, 2132-03 ####[facility] [id number] [place] [id number] [place] Potassium [Moles/Vol] 4.0 mmol/L Normal 3.7-5.1 [facility] Comment on above: Order Comment: Speci men Type: BLOOD SPECIMENOrdering Facility: [facility] Address: [address] [place] [address] Performed By: #### 2 4323-8, 3015-09, 2132-03 ####[facility] [id number] [place] [id number] [place] Protein [Mass/Vol] 7.3 g/dL Normal 6.3-8.0 [facility] Comment on above: Order Comment: Speci men Type: BLOOD SPECIMENOrdering Facility: [facility] Address: [address] [place] [address] Performed By: #### 2 4323-8, 3015-09, 2132-03 ####[facility] [id number] [place] [address] [place] Sodium [Moles/Vol] 139 mmol/L Normal 136-144 [facility] Comment on above: Order Comment: Yani elise Type: BLOOD SPECIMENOrdering Facility: [facility] Address: [address] [place] [address] Performed By: #### 2 4323-8, 6-3, 2132-03 ####[facility] [id number] [place] [address] [place] Urea nitrogen [Mass/Vol] 6 mg/dL Low 7-21 [facility] Comment on above: Order Comment: Yani elise Type: BLOOD SPECIMENOrdering Facility: [facility] Address: [address] [place] [address] Performed By: #### 2 4323-8, 3, 2132-03 ####[facility] [id number] [place] [address] [place] TSH SerPl-aCncon 03-02-2025 TSH Qn 3.250 m[IU]/L Normal 0.270-4.20 0 [facility] Comment on above: Order Comment: Yani elise Type: BLOOD SPECIMENOrdering Facility: [facility] Address: [address] [place] [address] Result Comment: If t he patient is , TSH reference range varies by gestational period: First Trimester (weeks 9-12): 0.180-2.990 mIU/L Second Trimester: 0.110-3.980 mIU/L Third Trimester: 0.480-4.710 mIU/L Loc Sparrow et al. A Practical Approach for the Verifications and Determination of Site- and Trimester-Specific Reference Intervals for Thyroid Function tests in . Thyroid, 2019:29:3:412-420. Dominick Fernandez et al. 2017 Guidelines of the [place] Thyroid Association for the Diagnosis and Management of Thyroid Disease during and the . Thyroid, 2017:27:3:315-389. Performed By: #### 2 4323-8, 3015-3, 2132-03 ####[facility] [id number] [place] [id number] [place] Vit B12 SerPl-mCncon 25-2 025 Cobalamin (Vitamin B12) [Mass/Vol] 1511 pg/mL High 232-1245 [facility] Comment on above: Order Comment: Speci men Type: BLOOD SPECIMENOrdering Facility: [facility] Address: [address] [place] [address] [place] [address] Performed By: #### 2 4323-8, 3016-3, 2132-03 ####[facility]IA [id number] [place] [id number] [facility] [place] CNOVon 02-05-2025 CNOV Office Visit (MARIA DOLORES ) MAXIMUS BRADLEY ([id number]) 1975 F Date Time Provider Department 02/05/25 12:20 PM LYDIA GONZALEZ During your visit today, we recorded the following information about you: Pulse Blood pressure Weight 85/minute 124/86 94.3 kg Lydia Gonzalez APRN.CNP 02/05/2025 1:19 PM Signed 02/05/2025 Patient presents with: ER F/U: [facility] 02/01 for pyelonephritis Recording using Inmoo software for draft documentation of the visit was discussed with the patient/authorized account representative; all questions welcomed and answered. Patient/authorized account representative agreed to proceed SUBJECTIVE: This is a 49 year old that is here today for Above Complaints.. Pyelonephritis: - Seen at [facility] ER on 02/01/2025 for pyelonephritis; received one dose of Keflex in the hospital. - Delay in obtaining Keflex prescription post-discharge; Maximus started full course yesterday. - Reports feeling warm yesterday, suspecting a low-grade fever; denies taking temperature. - Urination has improved since hospitalization; denies hematuria or dysuria. - Experiencing urinary frequency; denies back or abdominal pain. - Denies new onset of constipation or diarrhea; has a history of both conditions. ER visit reviewed PAST MEDICAL HISTORY Diagnosis Date Abdominal pain, [...] Reflux esophagitis Thrombocytosis Urinary retention Pablo Arrington ALLERGIES Bee Pollen, Adderall [Dextroamphetamine-Amphetami ne], Amphetamine, and Imitrex [Sumatriptan] MEDICATIONS Current Outpatient Medications Medication Sig cephALEXin (KEFLEX) 500 mg capsule Take 500 mg by mouth. loratadine (CLARITIN) 10 mg tablet Take 1 tablet by mouth once daily. omeprazole (PRILOSEC) 40 mg capsule TAKE 1 CAPSULE BY MOUTH TWICE A DAY omeprazole (PRILOSEC) 40 mg capsule Take 1 capsule by mouth two times a day. venlafaxine (EFFEXOR) 75 mg tablet Take 1 tablet by mouth three times a day. busPIRone (BUSPAR) 5 mg tablet Take 1 [...] tab TAKE 1 TABLET BY MOUTH DAILY albuterol HFA (VENTOLIN HFA) 90 mcg/actuation inhaler [...] use Drug use: Never REVIEW OF SYSTEMS All other reviewed and negative other than HPI. OBJECTIVE: BP 124/86 (BP Site: Left Arm, BP Position: Sitting, BP Cuff Size: Regular Adult) Pulse 85 Wt 94.3 kg (208 lb) LMP 11/06/2024 (Exact Date) SpO2 98% BMI 35.51 kg/m? . Vital signs reviewed by this provider. APPEARANCE Well appearing, alert, in no acute distress, well-hydrated, well nourished. EYES conjunctiva and sclera normal. HEART RRR with normal S1 and S2, no murmurs, no gallops, no JVD appreciated LUNG clear to auscultation. No wheezes, rhonchi or rales ABDOMEN bowel sounds normoactive, no bruits, soft, non-tender, non-distended Back: No CVA tenderness EXTREMITIES Extremities normal, No deformities, No skin discoloration, and (more content not included)... Normal [facility] Urine Cultureon 02-04-2025 [facility] Urine Culture Urine Culture Mixed Gram Positive Organisms Diana Count 80,000-100,000 MIXC Mixed contaminants. Submit a new specimen if indicated. Normal [facility] Comment on above: Performed By: #### M 100.2200 #### [facility] [address] [place], [address] Abdomen/Pelvis without Conto n 02-01-2025 Abdomen/Pelvis without Cont [facility] [address] [place], [place] [address] Abdomen/Pelvis without Cont MR#: [id number] Acct: [id number] Name: MAXIMUS BRADLEY Rep #: [id number] : 1975 F 49 From: Tylor Peters MD PCP: Dr. Isaac Hsu MD Status: REG ER Study: Abdomen/Pelvis without Cont Date of Exam: 01/07 01/30 Exam# [id number] Ordering Dr: Kain Ivy MD PROCEDURE: ABDOMEN/PELVIS WITHOUT CONT 02/01/2025 REASON FOR EXAM: KIDNEY STONE TECHNIQUE: ABDOMEN/PELVIS WITHOUT CONT Noncontrast technique limits evaluation of the abdominal and pelvic viscera. Coronal and Sagittal reconstruction series were provided. One or more dose reduction techniques were used (e.g., Automated exposure control, adjustment of the mA and/or kV according to patient size, use of iterative reconstruction technique). RADIATION DOSE SUMMARY: CTDlvol: 17 mGy DLP: 878 mGycm COMPARISON: 01/25/21 FINDINGS: Clear lung bases. Heart size within normal limits. Upper abdominal solid organs show no acute findings. No renal stones. No hydronephrosis or ureteral stone. Normal bladder. Possible fibroid uterus. Status post tubal ligation. Normal ovaries. No retroperitoneal or pelvic adenopathy. No free air. Nondistended bowel. Normal appendix. No acute large bowel findings. Lumbar spine degeneration. No acute abdominal wall findings. CT/Abdomen/Pelvis without Cont IMPRESSION: No acute findings Reading Location: [place] [address] CC: Dr. Isaac Hsu MD; Dr. Kain Ivy MD Jack Tamp Operator: Signed Normal [facility] Absolute lymphocyte countOrd ered By: Kain Ivy on 02-01-2025 Lymphocytes Auto (Unsp spec) [#/Vol] 2.77 10*3/uL 0.83-4.51 [facility] Absolute neutrophil countOrd ered By: Kain Ivy on 02-01-2025 Neutrophils (Bld) [#/Vol] 7.6 10*3/uL 2.0-7.7 [facility] Amorphous sediment detection in urine sediment by light microscopyOrdered By: Kain Xiaoo on 02-01-2025 Amorphous sediment LM Ql (Urine sed) 1+ [facility] Anion gap in Serum or Plasma Ordered By: Kainpenny Xiaoo on 02-01-2025 Anion gap [Moles/Vol] 11 mmol/L 5-15 [facility] Automated lymphocyte count a s percentage of total leukocytesOrdered By: Kain Xiaoo on 02-01-2025 Lymphocytes/100 WBC Auto (Unsp spec) 23.9 % 19-41 [facility] BUN/creatinine ratioOrdered By: Kain Xiaoo on 02-01-2025 Urea nitrogen/Creatinine [Mass ratio] 7.6 mg/mg Low 10-20 [facility] Basic Metabolic Profile (BMP )on 02-01-2025 BUN/CRE 7.6 RATIO Low 10-20 [facility] Comment on above: Performed By: #### L 100.0100, L500.2500 #### [facility] [address] [place], [address] Calcium [Mass/Vol] 8.9 mg/dL Normal 7.6-11.0 [facility] Comment on above: Performed By: #### L 100.0100, L500.2500 #### [facility] [address] [place], [address] Chloride [Moles/Vol] 106 mmol/L Normal 98-[address] [facility] Comment on above: Performed By: #### L 100.0100, L500.2500 #### [facility] [address] [place], [address] CO2 [Moles/Vol] 22.4 mmol/L Normal 21.0-32.0 [facility] Comment on above: Performed By: #### L 100.0100, L500.2500 #### [facility] [address] [place], [address] Creatinine [Mass/Vol] 1.02 mg/dL Normal 0.70-1.20 [facility] Comment on above: Performed By: #### L 100.0100, L500.2500 #### [facility] [address] [place], [address] ECRCL 78.65 ml/min Normal 50-250 [facility] Comment on above: Performed By: #### L 100.0100, L500.2500 #### [facility] [address] [place], [address] GAP 11 Normal 5-15 [facility] Comment on above: Performed By: #### L 100.0100, L500.2500 #### [facility] [address] [place], [address] GFR/1.73 sq M.predicted among non-blacks MDRD (S/P/Bld) [Vol rate/Area] 68 mL/min/{1.73_m2} Normal >60 [facility] Comment on above: Result Comment: mL/m in/1.73m2 CKD-EPI Creatinine Equation (2020) Performed By: #### L 100.0100, L500.2500 #### [facility] [address] [place], [address] Glucose [Mass/Vol] 70 mg/dL Normal 70-99 [facility] Comment on above: Performed By: #### L 100.0100, L500.2500 #### [facility] [address] [place], [address] Potassium [Moles/Vol] 3.8 mmol/L Normal 3.3-5.1 [facility] Comment on above: Result Comment: Hemo lysis present, Results??could be affected. ?? Performed By: #### L 100.0100, L500.2500 #### [facility] [address] [place], [address] Sodium [Moles/Vol] 139 mmol/L Normal 133-145 [facility] Comment on above: Performed By: #### L 100.0100, L500.2500 #### [facility] [address] [place], [address] Urea nitrogen [Mass/Vol] 8 mg/dL Normal 4-19 [facility] Comment on above: Performed By: #### L 100.0100, L500.2500 #### [facility] [address] [place], [address] Basophil percentageOrdered B y: Kain Ivy on 02-01-2025 Basophils/100 WBC (Bld) 0.9 % 0-1 [facility] Bilirubin Test strip Ql (U)O rdered By: Kain Ivy on 02-01-2025 Bilirubin Ql (U) Negative Negative [facility] CBC W/Diff, Automatedon 01-07 Absolute Lymph 2.77 X10 3/uL Normal 0.83-4.51 [facility] Comment on above: Performed By: #### L 100.0100, L500.2500 #### [facility] [address] [place], [address] Absolute Neut 7.6 X10 3/uL Normal 2.0-7.7 [facility] Comment on above: Performed By: #### L 100.0100, L500.2500 #### [facility] [address] [place], [address] Basophils/100 WBC (Bld) 0.9 % Normal 0-1 [facility] Comment on above: Performed By: #### L 100.0100, L500.2500 #### [facility] [address] [place], [address] Eosinophils/100 WBC (Bld) 2.5 % Normal 0-5 [facility] Comment on above: Performed By: #### L 100.0100, L500.2500 #### [facility] [address] [place], [address] Erythrocyte distribution width (RBC) [Ratio] 12.8 % Normal 11.6-14.6 [facility] Comment on above: Performed By: #### L 100.0100, L500.2500 #### [facility] [address] [place], [address] Hematocrit (Bld) [Volume fraction] 38.1 % Normal 37-47 [facility] Comment on above: Performed By: #### L 100.0100, L500.2500 #### [facility] [address] [place], [address] Hemoglobin (Bld) [Mass/Vol] 12.9 g/dL Normal 12.0-15.0 [facility] Comment on above: Performed By: #### L 100.0100, L500.2500 #### [facility] [address] [place], [address] IG% 0.400 Normal 0.0-0.9 [facility] Comment on above: Result Comment: IG% - Immature Granulocytes (promyelocytes, myelocytes and metamyelocytes) > 1% indicates that a LEFT SHIFT is Present. Performed By: #### L 100.0100, L500.2500 #### [facility] [address] [place], [address] Lymphocytes/100 WBC (Bld) 23.9 % Normal 19-41 [facility] Comment on above: Performed By: #### L 100.0100, L500.2500 #### [facility] [address] [place], [address] MCH (RBC) [Entitic mass] 28.4 pg Normal 27.0-32.0 [facility] Comment on above: Performed By: #### L 100.0100, L500.2500 #### [facility] [address] [place], [address] MCHC (RBC) [Mass/Vol] 33.9 g/dL Normal 32-36 [facility] Comment on above: Performed By: #### L 100.0100, L500.2500 #### [facility] [address] [place], [address] MCV (RBC) [Entitic vol] 83.7 fL Normal 81-99 [facility] Comment on above: Performed By: #### L 100.0100, L500.2500 #### [facility] [address] [place], [address] Monocytes/100 WBC (Bld) 7.1 % Normal 0-10 [facility] Comment on above: Performed By: #### L 100.0100, L500.2500 #### [facility] [address] [place], [address] Neutrophils/100 WBC (Bld) 65.2 % Normal 47-70 [facility] Comment on above: Performed By: #### L 100.0100, L500.2500 #### [facility] [address] [place], [address] Nucleated RBC (Bld) [#/Vol] 0 10*3/uL Normal 0-5 [facility] Comment on above: Performed By: #### L 100.0100, L500.2500 #### [facility] [address] [place], [address] Platelet mean volume (Bld) [Entitic vol] 9.5 fL Normal 6.2-12.0 [facility] Comment on above: Performed By: #### L 100.0100, L500.2500 #### [facility] [address] [place], [address] Platelets (Bld) [#/Vol] 479 10*3/uL High 150-450 [facility] Comment on above: Performed By: #### L 100.0100, L500.2500 #### [facility] [address] [place], [address] RBC (Bld) [#/Vol] 4.55 10*6/uL Normal 4.2-5.4 [facility] Comment on above: Performed By: #### L 100.0100, L500.2500 #### [facility] [address] [place], [address] RDW SD 39.0 fl Normal 35.1-43.9 [facility] Comment on above: Performed By: #### L 100.0100, L500.2500 #### [facility] [address] [place], [address] WBC (Bld) [#/Vol] 11.6 10*3/uL High 4.4-11.0 [facility] Comment on above: Performed By: #### L 100.0100, L500.2500 #### [facility] [address] [place], [address] Carbon dioxide, total [Moles /volume] in Central venous bloodOrdered By: Kain Ivy on 02-01-2025 CO2 [Moles/Vol] 22.4 mmol/L 21.0-32.0 [facility] Chloride assayOrdered By: Amandeep Ivy on 02-01-2025 Chloride [Moles/Vol] 106 mmol/L 98-[address] [facility] Emergency Department Summary on 02-01-2025 Emergency Department Summary [facility] Medical Records Department [address] [place] [address] Emergency Department Summary 02/01/25 MR#: [id number] Acct: [id number] Name: MAXIMUS BRADLEY Rep #: [id number] : 1975 49 From: Kain Ivy MD PCP: Dr. Isaac Hsu MD Status:REG ER Location: ED HPI History of Present Illness Chief Complaint: Flank Pain Detail of Chief Complaint: Left flank pain that radiates anteriorly to the left inguinal area Informant: patient Onset/Context/Timing Onset: Weeks Context: Sudden Onset Timing: Intermittent and Waxes and wanes Quality: Pain Location: Left flank radiating to the left groin Current Severity: Mild Maximum Severity: Severe Worsened by: Nothing Relieved by: Nothing Associated Symptoms Associated Symptoms: Frequency and urgency Narrative Narrative: Patient is a 49-year-old female. She denies history of renal or ureterolithiasis. She is status post tubal ligation. She denies fever, chills night sweats. She denies nausea or vomiting. She reports left flank pain that radiates anterior to the left groin. She does endorse frequency and urgency. She states she may have had some blood. She still menstruates. She states her menses ended the end of last week. They are normal. She has no symptoms of . She has history of pyelonephritis. She denies diarrhea. She denies respiratory symptoms. She denies intolerance to any foods. There is no history of direct or indirect trauma. Prior similar symptoms: No Recent [facility] Medical History Thrush Lab test negative for COVID-19 virus Migraines Abdominal pain Developmental disability Anxiety Fibrocystic change of breast Depression hypercholesterolemia HTN (hypertension) Hypothyroid Home Medications ???Medication ???Instructions ???Recorded ???Last Taken ???Type candesartan 16 mg tablet 16 mg PO DAILY 12/12/15 12/24/19 0 5:00 History levothyroxine 50 mcg tablet 50 mcg PO DAILY 12/12/15 12/24/19 05:00 History cholecalciferol (vitamin D3) 50 2 tab PO DAILY 01/28/19 Unknown Hi story mcg (2,000 unit) tablet albuterol sulfate 90 mcg/actuation 2 puff inhalation PRN PRN Sob / Or 12/17/19 12/24/19 05:00 History aerosol inhaler Wheezing escitalopram oxalate 20 mg tablet 20 mg PO DAILY 12/17/19 Unknown H istory montelukast 10 mg tablet 10 mg PO QHS 12/17/19 Unknown Hist ory tamsulosin 0.4 mg capsule 0.4 mg PO DAILY 12/17/19 Unknown H istory bupropion HCl 300 mg 24 hr tablet, 300 mg PO DAILY 12/23/19 Unknown History extended release topiramate 25 mg tablet 25 mg PO QHS 12/23/19 Unknown Hist ory omeprazole 40 mg capsule,delayed 40 mg PO DAILY 02/10/20 Unknown Hi story release prednisone 20 mg tablet 60 mg (3 x 20 mg) PO DAILY #15 tab s 03/01/22 Unknown Rx naproxen 500 mg tablet 500 mg PO BID #14 tabs 08/13/22 Un known Rx ondansetron 4 mg disintegrating 4 mg PO Q8H PRN PRN Nausea #10 tab s 10/14/22 Unknown Rx tablet naproxen 500 mg tablet (Naprosyn) 500 mg PO BID PRN pain #20 tabs 0 01/17/24 Unknown Rx cephalexin 500 mg capsule 500 mg PO Q6 #40 CAPSULES 02/01/25 Unknown Rx Allergy/AdvReac Type Severity Reaction Status Date / Time amphetamine aspartate (From Allergy Itching Verified 02/01/25 20:00 Adderall) amphetamine sulfate (From Allergy Itching Verified 02/01/25 20:00 Adderall) dextroamphetamine saccharate Allergy Itching Verified 02/01/25 20:00 (From Adderall) dextroamphetamine sulfate Allergy Itching Verified 02/01/25 20:00 (From Adderall) sumatriptan (From Imitrex) Allergy Chest Verified 02/01/25 20:00 tightness sumatriptan succinate (From Allergy Chest Verified 02/01/25 20:00 Imitrex) tightness venom-honey bee Allergy Anaphylaxis Verified 02/01/25 20:00 Family History Father Cancer Surgical History History of tubal ligation Status post fine needle aspiration History of esophagogastroduodenoscopy (EGD) History of dilation and curettage Social History household members: family Smoking Status: Never smoker substance use type: does not use ROS ROS ED Constitutional Constitutional ED: Denies chills, fever(s), subjective, sweats or weight loss Eyes Eyes: Denies blurry vision or change in vision ENT ENT ED: Denies rhinorrhea or sore throat Cardiovascular Cardiovascular: Denies chest pain or palpitations Respiratory/Chest Respiratory/Chest: Denies cough, dyspnea or dyspnea on exertion Gastrointestinal Gastrointestinal: Reports abdominal pain; Denies constipation, diarrhea, melena, nausea or vomiting Genitourinary G (more content not included)... Normal [facility] Eosinophil percentageOrdered By: Kain Ivy on 02-01-2025 Eosinophils/100 WBC (Bld) 2.5 % 0-5 [facility] Erythrocyte distribution wid th ratioOrdered By: Kainpenny Ivy on 02-01-2025 Erythrocyte distribution width (RBC) [Ratio] 12.8 % 11.6-14.6 [facility] Erythrocyte distribution wid th standard deviationOrdered By: Kainpenny Ivy on 02-01-2025 Erythrocyte distribution width (RBC) [Ratio] 39.0 fl 35.1-43.9 [facility] Glomerular filtration rate ( GFR) estimation/1.73 sq m using serum, plasma, or whole bOrdered By: Kainpenny Ivy on 02-01-2025 GFR/1.73 sq M.predicted among non-blacks MDRD (S/P/Bld) [Vol rate/Area] 68 mL/min/{1.73_m2} >60 [facility] Comment on above: mL/min/1.73m2 CKD-EP I Creatinine Equation (2020) Hematocrit Auto (Bld) [Volum e fraction]Ordered By: Kain Ivy on 02-01-2025 Hematocrit (Bld) [Volume fraction] 38.1 % 37-47 [facility] Hemoglobin measurementOrdere d By: Kain Ivy on 02-01-2025 Hemoglobin (Bld) [Mass/Vol] 12.9 g/dL 12.0-15.0 [facility] Immature granulocytes/100 WB C Auto (Bld)Ordered By: Kain Ivy on 02-01-2025 Immature granulocytes/100 WBC (Bld) 0.400 % 0.0-0.9 [facility] Comment on above: IG% - Immature Granu locytes (promyelocytes, myelocytes and metamyelocytes) > 1% indicates that a LEFT SHIFT is Present. Ketones Test strip Ql (U)Ord ered By: Kain Ivy on 02-01-2025 Ketones Ql (U) Negative Negative [facility] MCV (mean corpuscular volume ) determinationOrdered By: Kain Ivy on 02-01-2025 MCV (RBC) [Entitic vol] 83.7 fL 81-99 [facility] Mean corpuscular hemoglobin (MCH) determinationOrdered By: Kain Ivy on 02-01-2025 MCH (RBC) [Entitic mass] 28.4 pg 27.0-32.0 [facility] Mean corpuscular hemoglobin concentration (MCHC) determinationOrdered By: Kain Ivy on 02-01-2025 MCHC (RBC) [Mass/Vol] 33.9 g/dL 32-36 [facility] Mean platelet volume determi nationOrdered By: Kain Ivy on 02-01-2025 Platelet mean volume (Bld) [Entitic vol] 9.5 fL 6.2-12.0 [facility] Microscopic analysis of urin e for red blood cells (RBC)Ordered By: Kain Ivy on 02-01-2025 Microscopic analysis of urine for red blood cells (RBC) 0 SEEN /hpf 0-5 [facility] Monocyte percentageOrdered B y: Kain Ivy on 02-01-2025 Monocytes/100 WBC (Bld) 7.1 % 0-10 [facility] Mucus LM Ql (Urine sed)Order ed By: Kain Ivy on 02-01-2025 Mucus Ql (Urine sed) 0 SEEN /hpf [facility] Neutrophil percentageOrdered By: Kain Ivy on 02-01-2025 Neutrophils/100 WBC (Bld) 65.2 % 47-70 [facility] Nitrite Test strip Ql (U)Ord ered By: Kain Ivy on 02-01-2025 Nitrite Ql (U) Negative Negative [facility] Nucleated red blood cell per centageOrdered By: Kain Ivy on 02-01-2025 Nucleated RBC/100 WBC (Bld) [Ratio] 0 % 0-5 [facility] Platelet countOrdered By: Amandeep Ivy on 02-01-2025 Platelets (Bld) [#/Vol] 479 10*3/uL High 150-450 [facility] Potassium measurement (mass/ volume)Ordered By: Kain Ivy on 02-01-2025 Potassium (Unsp spec) [Mass/Vol] 3.8 mmol/L 3.3-5.1 [facility] Comment on above: Hemolysis present, R esults could be affected. Protein Test strip Ql (U)Ord ered By: Kain Ivy on 02-01-2025 Protein Ql (U) 15 mg/dl High Negative [facility] RBC Auto (Bld) [#/Vol]Ordere d By: Kainpenny Ivy on 02-01-2025 RBC (Bld) [#/Vol] 4.55 10*6/uL 4.2-5.4 [facility] Serum creatinine measurement (mass/volume)Ordered By: Kainpenny Ivy on 02-01-2025 Creatinine [Mass/Vol] 1.02 mg/dL 0.70-1.20 [facility] Serum glucose measurement (m ass/volume)Ordered By: Kainpenny Ivy on 02-01-2025 Glucose [Mass/Vol] 70 mg/dL 70-99 [facility] Serum or plasma calcium coleman urement (mass/volume)Ordered By: Kain Ivy on 02-01-2025 Calcium [Mass/Vol] 8.9 mg/dL 7.6-11.0 [facility] Serum or plasma urea nitroge n measurement (mass/volume)Ordered By: Kain Ivy on 02-01-2025 Urea nitrogen [Mass/Vol] 8 mg/dL 4-19 [facility] Sodium levelOrdered By: Kainpenny Ivy on 02-01-2025 Sodium [Moles/Vol] 139 mmol/L 133-145 [facility] Squamous epithelial cells de tection in urine sediment by light microscopyOrdered By: Kain Ivy on 02-01-2025 Epithelial cells.squamous LM Ql (Urine sed) 0-5 SEEN /hpf 5-10 [facility] Urinalysis, Completeon 02-01 AMORPHOUS 1+ Normal [facility] Comment on above: Order Comment: CLEAN CATCH Performed By: #### L 400.0001 #### [facility] [address] [place], [place], [id number] BACTERIA 1+ /hpf Normal None Seen [facility] Comment on above: Order Comment: CLEAN CATCH Performed By: #### L 400.0001 #### [facility] [address] [place], [address] EPI,SQUAMOUS 0-5 SEEN Normal 5-10 [facility] Comment on above: Order Comment: CLEAN CATCH Performed By: #### L 400.0001 #### [facility] [address] [place], [address] Mucus Ql (Urine sed) 0 SEEN Normal [facility] Comment on above: Order Comment: CLEAN CATCH Performed By: #### L 400.0001 #### [facility] [address] [place], [address] RBC 0 SEEN Normal 0-5 [facility] Comment on above: Order Comment: CLEAN CATCH Performed By: #### L 400.0001 #### [facility] [address] [place], [address] WBC 0 SEEN Normal 0-5 [facility] Comment on above: Order Comment: CLEAN CATCH Performed By: #### L 400.0001 #### [facility] [address] [place], [address] Urine clarityOrdered By: Kain Ivy on 02-01-2025 Clarity (U) Clear Clear [facility] Urine color determinationOrd ered By: Kain Ivy on 02-01-2025 Color (U) Yellow Yellow [facility] Urine glucose detectionOrder ed By: Kain Ivy on 02-01-2025 Glucose Ql (U) Normal mg/dl Normal [facility] Urine leukocyte esterase det ection by dipstickOrdered By: Kain Ivy on 02-01-2025 Leukocyte esterase Test strip Ql (U) 25 /ul High Negative [facility] Urine pHOrdered By: Kain frnacis on 02-01-2025 pH (U) 6.5 [pH] 5.0 - 8.0 [facility] Urine sediment bacteria coun t by microscopy (number/high power field)Ordered By: Kain Ivy on 02-01-2025 Bacteria LM.HPF (Urine sed) [#/Area] 1 /[HPF] None Seen [facility] Urine specific gravity measu rementOrdered By: Kain Ivy on 02-01-2025 Specific gravity (U) [Rel density] 1.015 1.002-1.[address] [facility] Urine urobilinogen measureme ntOrdered By: Kain Ivy on 02-01-2025 Urobilinogen Ql (U) Normal mg/dl Normal [facility] White blood cell (WBC) count Ordered By: Kain Ivy on 02-01-2025 WBC (Bld) [#/Vol] 11.6 10*3/uL High 4.4-11.0 [facility] White blood cell countOrdere d By: Kainpenny Ivy on 02-01-2025 White blood cell count 0 SEEN /hpf 0-5 [facility] BACTERIAL VAGINOSIS NAATon 0 11-10-2024 Lactobacillus crispatus+gasseri+dudley enii + Gardnerella vaginalis + Atopobium vaginae rRNA SAVI+probe Ql (Vag fld) Not detected Normal Not detected [facility] Comment on above: Order Comment: Speci men Type: SWABOrdering Facility: [facility] Address: [address] [place] [address] Performed By: #### B VAMP, 78398-5 ####[facility] [id number] [place] [address] [place] Bacteria Ur Culton Bacteria identified Cx Nom (U) CULTURE, URINE: Mixed microbiota, including predominantly: ORGANISM ID: 1 10,000 -<50,000 CFU/ml Streptococcus anginosus No susceptibility testing done. Normal [facility] Comment on above: Performed By: #### 6 30-4 ####[facility] [id number] [place] [address] [place] C. trachomatis+N. gonorrhoea e DNA SAVI+probe Ql (Unsp spec)on 11-10-2024 C. trachomatis rRNA SAVI+probe Ql (Unsp spec) Not detected Normal Not detected [facility] Comment on above: Order Comment: Speci men Type: SWABOrdering Facility: [facility] Address: [address] [place] [address] Performed By: #### B VAMP, 25559-2 ####[facility] [id number] [place] [address] [place] N. gonorrhoeae rRNA SAVI+probe Ql (Unsp spec) Not detected Normal Not detected [facility] Comment on above: Order Comment: Speci men Type: SWABOrdering Facility: [facility] Address: [address] [place] [address] Performed By: #### B VAMP, 59647-0 ####[facility] [id number] [place] [address] [place] BRYON/TRICHOMONAS NAATon 0 11-10-2024 C. glabrata RNA SAVI+probe Ql (Vag fld) Not detected Normal Not detected [facility] Comment on above: Order Comment: Speci men Type: SWABOrdering Facility: [facility] Address: [address] [place] [address] Performed By: #### C VTV ####[facility] [id number] [place] [address] [place] Bryon sp DNA SAVI+probe Ql (Vag fld) Not detected Normal Not detected [facility] Comment on above: Order Comment: Speci men Type: SWABOrdering Facility: [facility] Address: [address] [place] [address] Result Comment: The Bryon species group target includes C. albicans, C. tropicalis, C. parapsilosis, and C. dubliniensis. Performed By: #### C VTV ####[facility] [id number] [place] [address] [place] T. vaginalis DNA SAVI+probe Ql (Unsp spec) Detected Abnormal Not detected [facility] Comment on above: Order Comment: Speci men Type: SWABOrdering Facility: [facility] Address: [address] [place] [address] Performed By: #### C VTV ####[facility] [id number] YOUSUF PETERSON [id number] [place], [place] [id number] [facility] CNOVon 11-10-2024 CNOV Office Visit (OBGYWM ) MAXIMUS BRADLEY ([id number]) 1975 F Date Time Provider Department 11/10/24 2:00 PM EMA ABDULLAHI OBGYWM During your visit today, we recorded the following information about you: Blood pressure Weight Height Last Period 124/78 96.1 kg 1.63 m 11/06/24 Ema Abdullahi APRN.MOTION STUDY ENGINEER 11/10/2024 2:33 PM Signed Patient declined materials management clerkAjith Hemphill is a 49 year old who [...] discussed with the Patient or Patient's Authorized Nipple Maker. As applicable, any other physician, advance practice provider, medical student, or other health professional student that will be observing or involved in the sensitive examination for educational or training purposes was discussed with the Patient or Authorized Nipple Maker. The Patient or Authorized Nipple Maker has agreed to proceed with the sensitive examination. (Sensitive examination includes inspection and/or palpation of the breasts, pelvis, prostate and anorectal regions). EXAM: BP 124/78 Ht 5' 4.173 (1.63m) Wt 211 lb 12.8 oz (96.1kg) [...] external genitalia normal, normal Bartholin's glands, urethra, [place]'s glands, no vulvar lesions, no cervical lesions, [...] Making: P (more content not included)... Normal [facility] CNOV Office Visit (WSTR ) MAXIMUS BRADLEY ([id number]) 1975 F Date Time Provider Department 11/10/24 10:45 AM [facility] During your visit today, we recorded the following information about you: Temperature Pulse Respiration Blood pressure 98.2 degrees 96/minute 16/minute 124/70 Weight 94.7 kg Ella Riley APRN.MOTION STUDY ENGINEER 11/10/2024 11:51 AM Signed [facility] Subjective Maximus Coten is a 49 year old female. Patient [...] history is provided by the patient. No bookkeeping clerks supervisor was used. Vaginal Problem Review of Systems [...] status: Never (more content not included)... Normal [facility] HIGH RISK HUMAN PAPILLOMA MELECIO (HPV), PCR FOR DETECTION AND GENOTYPINGon 11-10-2024 HPV 16 Ag Ql (Unsp spec) Not detected Normal Not detected [facility] Comment on above: Order Comment: Speci men Type: FLUID SPECIMENOrdering Facility: [facility] Address: [address] [place] [address] Performed By: #### H PVHRT ####[facility] LABIA [id number] [place] [address] [place] HPV 18 Ag Ql (Unsp spec) Not detected Normal Not detected [facility] Comment on above: Order Comment: Speci men Type: FLUID SPECIMENOrdering Facility: [facility] Address: [address] [place] [address] Performed By: #### H PVHRT ####[facility] [id number] [place] [address] [place] HPV 31+33+35+39+45+51+52+5 6+58+59+66+68 DNA SAVI+probe Ql (Cvx) Not detected Normal Not detected [facility] Comment on above: Order Comment: Speci men Type: FLUID SPECIMENOrdering Facility: [facility] Address: [address] [place] [address] Result Comment: High Risk HPV Other Type includes HPV types 31, 33, 35, 39, 45, 51, 52, 56, 58, 59, 66 and 68. Performed By: #### H PVHRT ####[facility] [id number] [place] [address] [place] PAP TESTon 11-10-2024 ADEQUACY Normal [facility] Comment on above: Order Comment: Speci men Type: FLUID SPECIMENOrdering Facility: [facility] Address: [address] [place] [address] Result Comment: Sati sfactory for interpretation. Transformation zone present Performed By: #### L [id number] ####[facility] [id number] [place] [address] [place] CASE REPORT Normal [facility] Comment on above: Order Comment: Speci men Type: FLUID SPECIMENOrdering Facility: [facility] Address: [address] [place] [address] Result Comment: Gyne cologic Cytology Report Case: [id number] Authorizing Provider: Ema Abdullahi APRN.MOTION STUDY ENGINEER Collected: 11/10/2024 02:24 PM Ordering Location: OB/Gynecology Received: 11/10/2024 03:56 PM First Screen: Jenny Joseph CT, ASCP Rescreen: Nataly Bratxon CT, ASCP Pathologist: Sakina Sue MD Specimen: Pap Test, ThinPrep, Cervix Performed By: #### L [id number] ####[facility] [id number] [place] [address] [place] CLINICAL HISTORY, CYTOLOGY, APPLICATION TECHNICAL DESIGNER Routine Exam Normal [facility] Comment on above: Order Comment: Speci men Type: FLUID SPECIMENOrdering Facility: [facility] Address: [address] [place] [address] Performed By: #### L [id number] ####[facility] [id number] [place] [address] [place] FINAL PERFORMING LAB Normal [facility] Comment on above: Order Comment: Speci men Type: FLUID SPECIMENOrdering Facility: [facility] Address: [address] [place] [address] Result Comment: Tech nical component, fire prevention research engineer screening performed at: [facility], [address] [place], [place] [address] CLIA: [id number] Diagnostic interpretation performed at: [facility], [address] [place], [place] [address] CLIA# [id number] Student Teacher: Ryan Devries MD Performed By: #### L [id number] ####[facility] [id number] [address] [place] [address] [place] INTERPRETATION, CYTOLOGY, APPLICATION TECHNICAL DESIGNER Abnormal [facility] Comment on above: Order Comment: Speci men Type: FLUID SPECIMENOrdering Facility: [facility] Address: [address] [place] [address] Result Comment: Atyp ical squamous cells of undetermined significance (ASC-US). at 1148 EDT Performed By: #### L [id number] ####[facility] [id number] [address] [place] [address] [place] LMP 11/06/2024 Normal [facility] Comment on above: Order Comment: Speci men Type: FLUID SPECIMENOrdering Facility: [facility] Address: [address] [place] [address] Performed By: #### L [id number] ####[facility] [id number] [address] [place] [address] [place] PAP DISCLAIMER COMMENT The Pap Smear is a screening test for cervical cancer. False negative results occur with all screening tests, emphasizing the need for rescreening at recommended intervals, and clinical correlation. Normal [facility] Comment on above: Order Comment: Speci men Type: FLUID SPECIMENOrdering Facility: [facility] Address: [address] [place] [address] Performed By: #### L [id number] ####[facility] [id number] [address] [place] [address] [place] PAP GENERAL CATEGORIZATION Epithelial Cell Abnormality Normal [facility] Comment on above: Order Comment: Speci men Type: FLUID SPECIMENOrdering Facility: [facility] Address: [address] [place] [address] Performed By: #### L [id number] ####[facility] [id number] [address] [place] [address] [place] UA DIP, URINE (POC)on 2024 BILIRUBIN UA (POCT) Negative Negative [facility] CLARITY UA (POCT) Slightly Cloudy Cl [facility] COLOR UA (POCT) Dark yellow [facility] GLUCOSE UA (POCT) Negative Negative mg/dL [facility] Hemoglobin Ql (U) Trace-intact Abnormal Negative [facility] Interpretation and review of laboratory results Abnormal [facility] KETONE UA (POCT) Negative Negative mg/dL [facility] LEUKOCYTES UA (POCT) Small Abnormal Negative [facility] NITRITE UA (POCT) Negative [facility] PH UA (POCT) 6 4.5 - 8.0 [facility] Protein Ql (U) Negative Negative mg/dL [facility] SPECIFIC GRAVITY UA (POCT) 1.025 1.005 - 1.030 [facility] UROBILINOGEN UA (POCT) 1 Michelle l E.U./dL [facility] Location:[address], [place], [place], [address] [place] [address] POINT OF CARE [facility] CNCOon 11-03-2024 CNCO Letter Text Normal [facility] CNOVon 10-28-2024 CNOV Office Visit (FAMPWS ) MAXIMUS BRADLEY ([id number]) 1975 F Date Time Provider Department 10/28/24 2:20 PM LENY HSU FAMPWS During your visit [...] warts Reflux esophagitis Thrombocytosis Urinary retention Pablo Murphy Previous Surgical History [...] hours; d (more content not included)... Normal [facility] Calvin 10-27-2024 SIDNEY Telephone ([facility]) KIRK,MAXIMUS N ([id number]) 1975 F Date Time Provider Department 10/27/24 [...] palpitations Date Reviewed: 10/24/2024 Reviewed by: Jannette Marrero RN - Fully Assessed Reason for Visit: Patient Question [5819] Prescriptions as of 10/27/2024 - buPROPion XL [...] Encounter Status:Closed by MAYA HERNANDEZ on 10/27/24 [facility] [id number] 10-24-2024 [id number] HNO ID: [id number] Author: JANNETTE MARRERO RN Service: ? Author Type: Registered Nurse Type: [id number] Filed: 10/24/2024 12:19 Note Text: The patient received a copy of EGD discharge instructions that contain information for how to contact the physician who performed the procedure and when to seek medical care. Normal [facility] EGD Study observation Narrkelly olivares 10-24-2024 [facility] Gastrointestinal Endoscopy Patient Name: Maximus Bradley [...] be scheduled. Procedure Code(s): --- Professional --- 13087, Esophagogastroduodenoscopy, flexible, transoral; with biopsy, single or multiple G0500, Moderate sedation services provided by the same physician or other qualified health day care aide performing a gastrointestinal endoscopic service that sedation supports, requiring the presence of an independent trained observer to assist in the monitoring of the (more content not included)... PROVATION [facility] Radiology Study observation (narrative) [facility] HISTORY PHYSICALon HISTORY PHYSICAL HNO ID: [id number] Author: KIRK CAST MD Service: General Surgery [...] round, sclera (more content not included)... Normal [facility] Pathology biopsy report Enrique (Tiss)on 10-24-2024 AP DISCLAIMER Normal [facility] Comment on above: Order Comment: Speci men Type: TISSUE SPECIMENOrdering Facility: [facility] Address: [address] [place] [address] Result Comment: Rosenda Arias Test (LDT) Disclaimer: Performance characteristics of immunohistochemical, immunofluorescent, and chromogenic in-situ hybridization tests have been determined by the performing laboratory within [facility]'s [facility] Pathology and Laboratory Medicine Department ([facility], [facility], [facility], [facility], [facility], [facility], or [facility]) in a manner consistent with CLIA requirements. One or more of these tests may not have been cleared or approved by the FDA. RT[facility]M is regulated under CLIA as qualified to perform high-complexity testing. These tests are used for clinical purposes. These should not be regarded as investigational or for research. Positive and negative controls stain appropriately. Performed By: #### 6 6121-5 ####[facility] LABIA [id number] [place] [address] [place] CASE REPORT Normal [facility] Comment on above: Order Comment: Kennethi arik Type: TISSUE SPECIMENOrdering Facility: [facility] Address: [address] [place] [address] Result Comment: Surg ica Pathology Report Case: [id number] Authorizing Provider: Kirk Cast MD Collected: 10/24/2024 11:46 AM Ordering Location: Ambulatory Surgery Received: 10/24/2024 01:06 PM Pathologist: Jay Britton MD Specimens: A) - Small Bowel, Duodenum, Biopsy B) - Stomach, Antrum, Biopsy, Antral bx for H/H C) - Esophagus, Distal, Biopsy D) - Esophagus, Mid, Biopsy Performed By: #### 6 6121-5 ####[facility] LABIA [id number] [place] [address] [place] DIAGNOSIS COMMENT Normal [facility] Comment on above: Order Comment: Yani elise Type: TISSUE SPECIMENOrdering Facility: [facility] Address: [address] [place] [address] Result Comment: B. A n immunohistochemical stain for Helicobacter is negative. C. A p53 immunostain shows a normal (wild-type) staining pattern. This biopsy was reviewed in consultation with my colleague Dr. Phillips, who concurs. Laboratory Developed Test (LDT) Disclaimer: Performance characteristics of immunohistochemical, immunofluorescent and chromogenic in-situ hybridization tests have been determined by the performing laboratory within [facility]???s [facility] Pathology and Laboratory Medicine Department ([facility], [facility], [facility], [facility], [facility], [facility], or [facility]) in a manner consistent with CLIA requirements. One or more of these tests have not been cleared or approved by the FDA. RT-[facility]M is regulated under CLIA as qualified to perform high-complexity testing. These tests are used for clinical purposes. They should not be regarded as investigational or for research. Positive and negative controls stain appropriately. Performed By: #### 6 6121-5 ####[facility] [id number] [address] FINAL DIAGNOSIS Normal [facility] Comment on above: Order Comment: Speci men Type: TISSUE SPECIMENOrdering Facility: [facility] Address: [address] [place] [address] Result Comment: A. S mall bowel, duodenum, [...] 1619 EDT Performed By: #### 6 6121-5 ####[facility] [id number] [address] OF [facility] FINAL PERFORMING LAB Normal [facility] Comment on above: Order Comment: Speci men Type: TISSUE SPECIMENOrdering Facility: [facility] Address: [address] [place] [address] Result Comment: Diag nostic interpretation performed at: [facility], [address] [place] [address] CLIA# [id number] Student Teacher: Ryan Devries MD Performed By: #### 6 6121-5 ####[facility] LABIA [id number] [place] [address] [place] GROSS DESCRIPTION Normal [facility] Comment on above: Order Comment: Speci men Type: TISSUE SPECIMENOrdering Facility: [facility] Address: [address] [place] [address] Result Comment: A. S mall Bowel, Duodenum, [...] 0.1 cm. Totally submitted in one cassette. [facility] October 24, 2024 9:29 PM Gross examination performed at [facility], [address] [place] [address] Performed By: #### 6 6121-5 ####[facility] LABIA [id number] [place] [address] [place] Upper GI endoscopyon 10-24- 025 Upper GI endoscopy [facility] Gastrointestinal Endoscopy Patient Name: Maximus Bradley [...] be scheduled. Procedure Code(s): --- Professional --- 56311, Esophagogastroduodenoscopy, flexible, transoral; with biopsy, single or multiple G0500, Moderate sedation services provided by the same physician or other qualified health day care aide performing a gastrointestinal endoscopic service that sedation supports, requiring the presence of an independent trained observer to assist in the monitoring of the patient's level of consciousness and physiological status; initial 15 minutes of intra-service time; patient age 5 years or older (additional time may be reported with 82725, as appropriate) Diagnosis Code(s): --- Professional --- K22.89, Other specified disease of esophagus K29.70, Gastritis, unspecified, without bleeding R12, Heartburn K21.9, Gastro-esophageal reflux disease without esophagitis CPT copyright 2020 [place] [employer]. All rights reserved. The codes documented in this report are preliminary and upon human resources manager manufacturing review may be revised to meet current compliance requirements. Attending Participation: I personally performed the entire procedure. Scope In: 11:45:03 AM Scope Out: 11:49:04 AM MD Kirk Dooley MD 10/24/2024 11:54:44 AM This report has been signed electronically by Kirk Cast MD Number of Addenda: 0 Note Initiated On: 10/24/2024 11:20 AM Estimated Blood Loss: Estimated blood loss was minimal. Normal [facility] Calvin 10-22-2024 CNPN Telephone (TONI) AMXIMUS BRADLEY ([id number]) 1975 F Date Time Provider Department 10/22/24 [...] by: Ana Raymundo RN - Fully Assessed Prescriptions as of 10/22/2024 [...] Encounter Status:Closed by ELMIRA MAYORGA on 10/22/24 [facility] MAXIMUS BRADLEY ([id number]) 1975 F Date Time Provider Department 10/20/24 [facility] your visit today, we recorded [...] of his mother, and talked with the die lay out worker today. She would like to make him payee for her. I am sending this message through to , and I have updated the Contact section. I removed the mother and added Pts son with his information. Please get in contact about helping to fill out forms. Leny Hsu MD 10/21/2024 6:57 AM Signed Referral order placed for social work to assist. Elmira Mayorga MSW 10/21/2024 11:43 AM Signed Ann, I do not have Social Security Payee forms. Whomever is wanting to be payee, has to request those from Social Security. I can let patient son know this information. Is the [phone] the best number to reach patient son? Elmira Mayorga MSW 10/22/2024 11:42 AM Addendum Yvonne spoke with patient son Alex regarding payee question. Alex notes that he has an appt in November with Social Security in regards to applying to be patient payee. Alex noted patient current payee recently. Alex notes that [place] told him that he should obtain letter [...] in regards to writing letter for son. ShadiLeny MD 10/22/2024 11:48 AM Signed Reviewed. 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 Normal [facility] 10-16-2024 [facility]INTMWS[facility] MAXIMUS BRADLEY ([id number]) 1975 F Date Time Provider Department 10/16/24 LENY HSU INTWS During your visit today, we recorded the following information about you: Olivia Hunt LPN 10/16/2024 3:06 PM Signed Electronic PA rec'd and completed for topamax. This was approved. Prior authorization approved Payer: [facility] Note from payer: Your PA request for [id number] was approved for 365 days. The PA# assigned is [id number]. Approval Details Authorization number: [id number] Authorized from October 16, 2024 to October [...] to its destination. To be filled at: [facility] - [address] [place] [id number] - [address] [phone] Allergies As of Date: 10/16/2024 Noted Allergy [...] Encounter Status:Closed by OLIVIA HUNT on 10/16/24 [facility] KILO[facility]rome 09-29-2024 CNOV Office Visit (GENSWS ) MAXIMUS BRADLEY ([id number]) 1975 F Date Time Provider Department 09/29/24 [...] on jihan (more content not included)... Normal [facility] DBT Breast - bilateral diagn ostic for [...] Kirk Maciel M.D. Electronically signed on: 09/24/2024 Jack Tamp Operator: PHILIPPE Transcribe Date/Time: Sep 24 2024 10:53A Dictated by: KIRK MACIEL MD This examination was interpreted and the report reviewed and electronically signed by: KIRK MACIEL MD on Sep 24 2024 12:13PM [facility] DIVISION OF RADIOLOGY * * *Final Report* * * DATE OF EXAM: Sep 24 2024 11:20AM [facility] 0627 - [facility] DIDIER W LAURA AMELIA / PROCEDURE REASON: multiple diagnoses * * * * Physician Interpretation * * * * RESULT: [place] [address] #[id number] - [facility] DIAG W LAURA LT #[id number] - [facility] US BREAST LTD LT HISTORY: 49 year-old [...] echotexture is hypoechoic. DIVISION OF RADIOLOGY Provider, [facility] - 09/24/2024 * * *Final Report* * * DATE OF EXAM: Sep 24 2024 11:20AM [facility] 0627 - [facility] DIAG W LAURA AMELIA / PROCEDURE REASON: multiple diagnoses * * * * Physician Interpretation * * * * RESULT: [place] [address] #[id number] - [facility] DIAG W LAURA LT #[id number] - [facility] US BREAST LTD LT HISTORY: 49 year-old [...] Kirk Maciel M.D. Electronically signed on: 09/24/2024 Jack Tamp Operator: PHILIPPE Transcrishiloh Date/Time: Sep 24 2024 10:53A Dictated by: KIRK MACIEL MD This examination was interpreted and the report reviewed and electronically signed by: KIRK MACIEL MD on Sep 24 2024 12:13PM [facility] DIDIER Malone 2024 [facility] MORA * * *Final Report* * * DATE OF EXAM: Sep 24 2024 11:20AM [facility] 0627 - [facility] DIAG W LAURA AMELIA / PROCEDURE REASON: multiple diagnoses * * * * Physician Interpretation * * * * RESULT: [place] [address] [place] [address] #[id number] - [facility] DIDIER W LAURA LT #[id number] - [facility] US BREAST LTD LT HISTORY: 49 year-old [...] Kirk Maciel M.D. Electronically signed on: 09/24/2024 Jack Tamp Operator: PHILIPPE Transcribe Date/Time: Sep 24 2024 10:53A Dictated by: KIRK MACIEL MD This examination was interpreted and the report reviewed and electronically signed by: KIRK MACIEL MD on Sep 24 2024 12:13PM EST [id number] Normal [facility] [employer] BREAST LTD LTon 09-24 [employer] BREAST [employer] Soft LT * * *Final Report* * * DATE OF EXAM: Sep 24 2024 11:58AM [facility] 0593 - [facility] [employer] BREAST [employer] LT / PROCEDURE REASON: multiple diagnoses * * * * Physician Interpretation * * * * [place] [address] #[id number] - [facility] DIDIER Clark LAURA #[id number] - [facility] [employer] BREAST [employer] LT HISTORY: 49 year-old patient seen for [...] Kirk Maciel M.D. Electronically signed on: 09/24/2024 Jack Tamp Operator: PHILIPPE Transcribe Date/Time: Sep 24 2024 11:58A Dictated by : KIRK MACIEL MD This examination was interpreted and the report reviewed and electronically signed by: KIRK MACIEL MD on Sep 24 2024 12:13PM EST [id number] Normal [facility] No Panel InformationOrdered By: Ccf Provider on 09-24-2024 [facility] No Panel Informationon 09-24 Radiology Study observation (narrative) [facility] US Breast - left limitedon 0 09-24-2024 [...] Kirk Maciel M.D. Electronically signed on: 09/24/2024 Jack Tamp Operator: PHILIPPE Transcribe Date/Time: Sep 24 2024 11:58A Dictated by : KIRK MACIEL MD This examination was interpreted and the report reviewed and electronically signed by: KIRK MACIEL MD on Sep 24 2024 12:13PM [facility] DIVISION OF RADIOLOGY * * *Final Report* * * DATE OF EXAM: Sep 24 2024 11:58AM [facility] 0593 - [facility] [employer] BREAST [employer] LT / PROCEDURE REASON: multiple diagnoses * * * * Physician Interpretation * * * * [place] [address] #[id number] - [facility] DIDIER Clark LAURA LT #[id number] - [facility] [employer] BREAST [employer] LT HISTORY: 49 year-old patient seen for [...] echotexture is hypoechoic. DIVISION OF RADIOLOGY Provider, [facility] - 09/24/2024 * * *Final Report* * * DATE OF EXAM: Sep 24 2024 11:58AM [facility] 0593 - [employer] BREAST [employer] Soft LT / PROCEDURE REASON: multiple diagnoses * * * * Physician Interpretation * * * * [place] [address] #[id number] - [facility] DIDIER Clark LAURA #[id number] - [facility] [employer] LT HISTORY: 49 year-old patient seen for [...] Kirk Maciel M.D. Electronically signed on: 09/24/2024 Jack Tamp Operator: PHILIPPE Transcribe Date/Time: Sep 24 2024 11:58A Dictated by : KIRK MACIEL MD This examination was interpreted and the report reviewed and electronically signed by: KIRK MACIEL MD on Sep 24 2024 12:13PM [facility] CNOVon 09-02-2024 CNOV Office Visit (FAMPWS ) MAXIMUS BRADLEY ([id number]) 1975 F Date Time Provider Department 09/02/24 1:00 PM LENY HSUPWS During your visit today, [...] current facility-adminis (more content not included)... Normal [facility] TSH SerPl-aCncon 09-02-2024 TSH Qn 2.380 m[IU]/L Normal 0.270-4.20 0 [facility] Comment on above: Order Comment: Speci men Type: BLOOD SPECIMENOrdering Facility: [facility] Address: [address] [place] [address] Result Comment: If t he patient is , TSH reference range varies by gestational period: First Trimester (weeks 9-12): 0.180-2.990 mIU/L Second Trimester: 0.110-3.980 mIU/L Third Trimester: 0.480-4.710 mIU/L Loc Sparrow et al. A Practical Approach for the Verifications and Determination of Site- and Trimester-Specific Reference Intervals for Thyroid Function tests in . Thyroid, 2019:29:3:412-420. Dominick Fernandez, et al. 2017 Guidelines of the [place] [employer] for the Diagnosis and Management of Thyroid Disease during and the . Thyroid, 2017:27:3:315-389. Performed By: #### 3 016-3 ####[facility] LABORATORYCLIA [id number] [place] [address] [place] CNCOon 08-19-2024 CNCO Letter Text Normal [facility] CNPNon 08-08-2024 CNPN Telephone (NIYAMELBA) MAXIMUS BRADLEY ([id number]) 1975 F Date Time Provider Department 08/08/24 [...] Status:Closed by MARYA LONG on 08/11/24 Normal [facility] C-REACTIVE PROTEINon 025 CRP [Mass/Vol] 0.7 mg/dL NINF - 0.9 mg/dL [facility] Calvin 08-07-2024 CNPN Telephone (FAMPWS) MAXIMUS BRADLEY ([id number]) 1975 F Date Time Provider Department 08/07/24 [facility] During your visit today, we recorded the [...] Status:Closed by LISET SOLIS on 08/08/24 Normal [facility] CRP [Mass/Vol]on 08-07-2024 Interpretation and review of laboratory results Normal [facility] Comprehensive metabolic 2000 panelon 08-07-2024 Albumin [Mass/Vol] 4.2 g/dL 3.9 - 4.9 g/dL [facility] ALP [Catalytic activity/Vol] 100 U/L 34 - 123 U/L [facility] ALT [Catalytic activity/Vol] 18 U/L 7 - 38 U/L [facility] Anion gap [Moles/Vol] 13 mmol/L 8 - 15 mmol/L [facility] AST [Catalytic activity/Vol] 15 U/L 13 - 35 U/L [facility] Bilirubin [Mass/Vol] 0.3 mg/dL 0.2 - 1 .3 mg/dL [facility] Calcium [Mass/Vol] 9.4 mg/dL 8.5 - 10. 2 mg/dL [facility] Chloride [Moles/Vol] 106 mmol/L 98 - 10 7 mmol/L [facility] CO2 [Moles/Vol] 21 mmol/L Low 22 - 30 mmol/L [facility] Creatinine [Mass/Vol] 0.84 mg/dL 0.58 - 0.96 mg/dL [facility] GFR/1.73 sq M.predicted among non-blacks MDRD (S/P/Bld) [Vol rate/Area] 86 mL/min/{1.73_m2} - PINF [facility] Comment on above: Estimated Glomerular Filtration Rate [...] [Mass/Vol] 87 mg/dL 74 - 99 mg/dL [facility] Comment on above: The [place] Diabete s Association (ADA) provides guidance for [...] Standards of Medical Care in Diabetes 2016, [place] [employer] Association. Diabetes Care. 2016.39(Suppl 1). Interpretation and review of laboratory results Abnormal [facility] Potassium [Moles/Vol] 4.0 mmol/L 3.7 - 5.1 mmol/L [facility] Protein [Mass/Vol] 6.6 g/dL 6.3 - 8.0 g/dL [facility] Sodium [Moles/Vol] 140 mmol/L 136 - 144 mmol/L [facility] Urea nitrogen [Mass/Vol] 9 mg/dL 7 - 21 mg/dL [facility] FERRITINon 08-07-2024 Ferritin [Mass/Vol] 66.9 ng/mL 14.7 - 205.1 ng/mL [facility] Iron and Iron binding capaci ty panelon 08-07-2024 Iron [Mass/Vol] 114 ug/dL 41 - 186 ug/dL [facility] Iron binding capacity [Mass/Vol] 282 ug/dL 232 - 386 ug/dL [facility] Iron/TIBC [Molar ratio] 40.4 % 15.0 - 57.0 % [facility] No Panel Informationon 08-07 Interpretation and review of laboratory results Normal [facility] XR Abdomen Supine and Uprigh ton 08-07-2024 IMPRESSION: Nonobstr uctive bowel gas pattern. Jack Tamp Operator: DIOGENES Transcribe Date/Time: Aug 07 2024 5:08P Dictated by : DARYA BINGHAM MD This examination was interpreted and the report reviewed and electronically signed by: DARYA BINGHAM MD on Aug 07 2024 5:10PM [facility] DIVISION OF RADIOLOGY * * [...] structures appear intact. DIVISION OF RADIOLOGY Provider, [facility] - 08/07/2024 * * *Final Report* * [...] intact. IMPRESSION IMPRESSION: Nonobstructive bowel gas pattern. Jack Tamp Operator[facility] Transcribe Date/Time: Aug 07 2024 5:08P Dictated by : DARYA BINGHAM MD This examination was interpreted and the report reviewed and electronically signed by: DARYA BINGHAM MD on Aug 07 2024 5:10PM [facility] XR Abdomen Supine and Uprigh tOrdered By: Cc Provider on 08-07-2024 [facility] CBC W Auto Differential pane l (Bld)on 08-06-2024 Basophils (Bld) [#/Vol] 0.09 10*3/uL [facility] Basophils/100 WBC (Bld) 0.9 % [facility] Differential cell count method Nom (Bld) Auto [facility] Eosinophils (Bld) [#/Vol] 0.34 10*3/uL [facility] Eosinophils/100 WBC (Bld) 3.3 % [facility] Erythrocyte distribution width (RBC) [Ratio] 13.1 % 11.5 - 15.0 % [facility] Hematocrit (Bld) [Volume fraction] 41.0 % 36.0 - 46.0 % [facility] Hemoglobin (Bld) [Mass/Vol] 13.8 g/dL 11.5 - 15.5 g/dL [facility] Immature granulocytes (Bld) [#/Vol] 0.03 10*3/uL [facility] Immature granulocytes/100 WBC (Bld) 0.3 % [facility] Interpretation and review of laboratory results Abnormal [facility] Lymphocytes (Bld) [#/Vol] 2.45 10*3/uL [facility] Lymphocytes/100 WBC (Bld) 23.9 % [facility] MCH (RBC) [Entitic mass] 28.4 pg 26.0 - 34.0 pg [facility] MCHC (RBC) [Mass/Vol] 33.7 g/dL 30.5 - 36.0 g/dL [facility] MCV (RBC) [Entitic vol] 84.4 fL 80.0 - 100.0 fL [facility] Monocytes (Bld) [#/Vol] 0.77 10*3/uL [facility] Monocytes/100 WBC (Bld) 7.5 % [facility] Neutrophils (Bld) [#/Vol] 6.55 10*3/uL [facility] Neutrophils/100 WBC (Bld) 64.1 % [facility] Nucleated RBC (Bld) [#/Vol] [facility] Nucleated RBC/100 WBC (Bld) [Ratio] 0.0 % /100 WBC [facility] Platelet mean volume (Bld) [Entitic vol] 9.7 fL 9.0 - 12.7 fL [facility] Platelets (Bld) [#/Vol] 493 10*3/uL High [facility] RBC (Bld) [#/Vol] 4.86 10*6/uL 3.90 - 5.20 m/uL [facility] WBC (Bld) [#/Vol] 10.23 10*3/uL [facility] Basophils (Bld) [#/Vol] 0.09 10*3/uL Normal <0.11 [facility] Comment on above: Order Comment: Speci men Type: BLOOD SPECIMENOrdering Facility: [facility] Address: [address] [place] [address] Performed By: #### 5 7021-8, 7 ####[facility] [id number] [place] [address] [place] Basophils/100 WBC (Bld) 0.9 % Normal [facility] Comment on above: Order Comment: Speci men Type: BLOOD SPECIMENOrdering Facility: [facility] Address: [address] [place] [address] Performed By: #### 5 7021-8, 7 ####[facility] [id number] [place] [address] [place] Differential cell count method Nom (Bld) Auto Normal [facility] Comment on above: Order Comment: Speci men Type: BLOOD SPECIMENOrdering Facility: [facility] Address: [address] [place] [address] Performed By: #### 5 7021-8, 7 ####[facility] [id number] [place] [address] [place] Eosinophils (Bld) [#/Vol] 0.34 10*3/uL Normal <0.46 [facility] Comment on above: Order Comment: Speci men Type: BLOOD SPECIMENOrdering Facility: [facility] Address: [address] [place] [address] Performed By: #### 5 7021-8, 4537-01 ####[facility] [id number] [place] [address] [place] Eosinophils/100 WBC (Bld) 3.3 % Normal [facility] Comment on above: Order Comment: Speci men Type: BLOOD SPECIMENOrdering Facility: [facility] Address: [address] [place] [address] Performed By: #### 5 7021-8, 4537-01 ####[facility] [id number] [place] [address] [place] Erythrocyte distribution width (RBC) [Ratio] 13.1 % Normal 11.5-15.0 [facility] Comment on above: Order Comment: Speci men Type: BLOOD SPECIMENOrdering Facility: [facility] Address: [address] [place] [address] Performed By: #### 5 7021-8, 7 ####[facility] [id number] [place] [address] [place] Hematocrit (Bld) [Volume fraction] 41.0 % Normal 36.0-46.0 [facility] Comment on above: Order Comment: Speci men Type: BLOOD SPECIMENOrdering Facility: [facility] Address: [address] [place] [address] Performed By: #### 5 7021-8, 7 ####[facility] [id number] [place] [address] [place] Hemoglobin (Bld) [Mass/Vol] 13.8 g/dL Normal 11.5-15.5 [facility] Comment on above: Order Comment: Speci men Type: BLOOD SPECIMENOrdering Facility: [facility] Address: [address] [place] [address] Performed By: #### 5 7021-8, 7 ####[facility] [id number] [place] [address] [place] Immature granulocytes (Bld) [#/Vol] 0.03 10*3/uL Normal <0.10 [facility] Comment on above: Order Comment: Speci men Type: BLOOD SPECIMENOrdering Facility: [facility] Address: [address] [place] [address] Performed By: #### 5 7021-8, 4536-7 ####[facility] [id number] [place] [address] [place] Immature granulocytes/100 WBC (Bld) 0.3 % Normal [facility] Comment on above: Order Comment: Speci men Type: BLOOD SPECIMENOrdering Facility: [facility] Address: [address] [place] [address] Performed By: #### 5 7021-8, 4537-7 ####[facility] [id number] [place] [address] [place] Lymphocytes (Bld) [#/Vol] 2.45 10*3/uL Normal 1.00-4.00 [facility] Comment on above: Order Comment: Speci men Type: BLOOD SPECIMENOrdering Facility: [facility] Address: [address] [place] [address] Performed By: #### 5 7021-8, 4537-7 ####[facility] [id number] [place] [address] [place] Lymphocytes/100 WBC (Bld) 23.9 % Normal [facility] Comment on above: Order Comment: Speci men Type: BLOOD SPECIMENOrdering Facility: [facility] Address: [address] [place] [address] Performed By: #### 5 7021-8, 4537-7 ####[facility] [id number] [place] [address] [place] MCH (RBC) [Entitic mass] 28.4 pg Normal 26.0-34.0 [facility] Comment on above: Order Comment: Speci men Type: BLOOD SPECIMENOrdering Facility: [facility] Address: [address] [place] [address] Performed By: #### 5 7021-8, 7-7 ####[facility] [id number] [place] [address] [place] MCHC (RBC) [Mass/Vol] 33.7 g/dL Normal 30.5-36.0 [facility] Comment on above: Order Comment: Speci men Type: BLOOD SPECIMENOrdering Facility: [facility] Address: [address] [place] [address] Performed By: #### 5 7021-8, 7 ####[facility] [id number] [place] [address] [place] MCV (RBC) [Entitic vol] 84.4 fL Normal 80.0-100.0 [facility] Comment on above: Order Comment: Speci men Type: BLOOD SPECIMENOrdering Facility: [facility] Address: [address] [place] [address] Performed By: #### 5 7021-8, 7 ####[facility] [id number] [place] [address] [place] Monocytes (Bld) [#/Vol] 0.77 10*3/uL Normal <0.87 [facility] Comment on above: Order Comment: Speci men Type: BLOOD SPECIMENOrdering Facility: [facility] Address: [address] [place] [address] Performed By: #### 5 7021-8, 7 ####[facility] [id number] [place] [address] [place] Monocytes/100 WBC (Bld) 7.5 % Normal [facility] Comment on above: Order Comment: Speci men Type: BLOOD SPECIMENOrdering Facility: [facility] Address: [address] [place] [address] Performed By: #### 5 7021-8, 4537-01 ####[facility] [id number] [place] [address] [place] Neutrophils (Bld) [#/Vol] 6.55 10*3/uL Normal 1.45-7.50 [facility] Comment on above: Order Comment: Speci men Type: BLOOD SPECIMENOrdering Facility: [facility] Address: [address] [place] [address] Performed By: #### 5 7021-8, 4536-7 ####[facility] [id number] [address] [place] Neutrophils/100 WBC (Bld) 64.1 % Normal [facility] Comment on above: Order Comment: Speci men Type: BLOOD SPECIMENOrdering Facility: [facility] Address: [address] [place] [address] Performed By: #### 5 7021-8, 4536-7 ####[facility] [id number] [place] [address] [place] Nucleated RBC (Bld) [#/Vol] 10*3/uL Normal <0.01 [facility] Comment on above: Order Comment: Speci men Type: BLOOD SPECIMENOrdering Facility: [facility] Address: [address] [place] [address] Performed By: #### 5 7021-8, 7 ####[facility] [id number] [place] [address] [place] Nucleated RBC/100 WBC (Bld) [Ratio] 0.0 /100 WBC Normal [facility] Comment on above: Order Comment: Speci men Type: BLOOD SPECIMENOrdering Facility: [facility] Address: [address] [place] [address] Performed By: #### 5 7021-8, 7 ####[facility] [id number] [place] [address] [place] Platelet mean volume (Bld) [Entitic vol] 9.7 fL Normal 9.0-12.7 [facility] Comment on above: Order Comment: Speci men Type: BLOOD SPECIMENOrdering Facility: [facility] Address: [address] [place] [address] Performed By: #### 5 7021-8, 4537-01 ####[facility] [id number] [place] [address] [place] Platelets (Bld) [#/Vol] 493 10*3/uL High 150-400 [facility] Comment on above: Order Comment: Speci men Type: BLOOD SPECIMENOrdering Facility: [facility] Address: [address] [place] [address] Performed By: #### 5 7021-8, 4537 ####[facility] [id number] [place] [address] [place] RBC (Bld) [#/Vol] 4.86 10*6/uL Normal 3.90-5.20 [facility] Comment on above: Order Comment: Speci men Type: BLOOD SPECIMENOrdering Facility: [facility] Address: [address] [place] [address] Performed By: #### 5 7021-8, 4537 ####[facility] [id number] [place] [address] [place] WBC (Bld) [#/Vol] 10.23 10*3/uL Normal 3.70-11.00 [facility] Comment on above: Order Comment: Speci men Type: BLOOD SPECIMENOrdering Facility: [facility] Address: [address] [place] [address] Performed By: #### 5 7021-8, 4537 ####[facility]IA [id number] [place] [id number] [place] CNOVon 08-06-2024 CNOV Office Visit (FAMPWS ) MAXIMUS BRADLEY ([id number]) 1975 F Date Time Provider Department 08/06/24 [...] ago. Described as constant dull pain, currently 10/16, without radiation. Denies exacerbating factors. Treating with [...] Never Used (more content not included)... Normal [facility] CRP SerPl-mCncon 08-06-2024 CRP [Mass/Vol] 0.7 mg/dL Normal <0.9 [facility] Comment on above: Order Comment: Speci men Type: BLOOD SPECIMENOrdering Facility: [facility] Address: [address] [place] [address] Performed By: #### 5 0190-8, 1987-11, , 2275-10 ####[facility] [id number] [place] [address] [place] Comprehensive metabolic 2000 panelon 08-06-2024 Albumin [Mass/Vol] 4.2 g/dL Normal 3.9-4.9 [facility] Comment on above: Order Comment: Speci men Type: BLOOD SPECIMENOrdering Facility: [facility] Address: [address] [place] [address] Performed By: #### 5 0190-8, 1987-11, , 2275-10 ####[facility] [id number] [place] [address] [place] ALP [Catalytic activity/Vol] 100 U/L Normal 34-123 [facility] Comment on above: Order Comment: Speci men Type: BLOOD SPECIMENOrdering Facility: [facility] Address: [address] [place] [address] Performed By: #### 5 0190-8, 1987-11, , 2275-10 ####[facility] [id number] [id number] [address] [place] ALT [Catalytic activity/Vol] 18 U/L Normal 7-38 [facility] Comment on above: Order Comment: Speci men Type: BLOOD SPECIMENOrdering Facility: [facility] Address: [address] [place] [address] Performed By: #### 5 0190-8, 1987-11, , 2275-10 ####[facility] [id number] [place] [address] [place] Anion gap [Moles/Vol] 13 mmol/L Normal 8-15 [facility] Comment on above: Order Comment: Speci men Type: BLOOD SPECIMENOrdering Facility: [facility] Address: [address] [place] [address] Performed By: #### 5 0190-8, 1987-11, , 2275-10 ####[facility] [id number] [place] [address] [place] AST [Catalytic activity/Vol] 15 U/L Normal 13-35 [facility] Comment on above: Order Comment: Speci men Type: BLOOD SPECIMENOrdering Facility: [facility] Address: [address] [place] [address] Performed By: #### 5 0190-8, 1987-11, , 2275-10 ####[facility] [id number] [place] [address] [place] Bilirubin [Mass/Vol] 0.3 mg/dL Normal 0.2-1.3 [facility] Comment on above: Order Comment: Speci men Type: BLOOD SPECIMENOrdering Facility: [facility] Address: [address] [place] [address] Performed By: #### 5 0190-8, 1987-11, , 2275-10 ####[facility] [id number] [place] [address] [place] Calcium [Mass/Vol] 9.4 mg/dL Normal 8.5-10.2 [facility] Comment on above: Order Comment: Speci men Type: BLOOD SPECIMENOrdering Facility: [facility] Address: [address] [place] [address] Performed By: #### 5 0190-8, 1987-11, , 2275-10 ####[facility] [id number] [place] [address] [place] Chloride [Moles/Vol] 106 mmol/L Normal 98-107 [facility] Comment on above: Order Comment: Speci men Type: BLOOD SPECIMENOrdering Facility: [facility] Address: [address] [place] [address] Performed By: #### 5 0190-8, 1987-11, , 2275-10 ####[facility] [id number] [place] [address] [place] CO2 [Moles/Vol] 21 mmol/L Low 22-30 [facility] Comment on above: Order Comment: Speci men Type: BLOOD SPECIMENOrdering Facility: [facility] Address: [address] [place] [address] Performed By: #### 5 0190-8, 1987-11, , 2275-10 ####[facility] [id number] [place] [address] [place] Creatinine [Mass/Vol] 0.84 mg/dL Normal 0.58-0.96 [facility] Comment on above: Order Comment: Speci men Type: BLOOD SPECIMENOrdering Facility: [facility] Address: [address] [place] [address] Performed By: #### 5 0190-8, 1987-11, , 2275-10 ####[facility] [id number] [place] [address] [place] Creatinine and Glomerular filtration rate.predicted panel (S/P/Bld) 86 mL/min/1.73m??? Normal >=60 [facility] Comment on above: Order Comment: Yani elise Type: BLOOD SPECIMENOrdering Facility: [facility] Address: [address] [place] [address] Result Comment: Romi mated Glomerular Filtration Rate [...] actual GFR. Performed By: #### 5 0190-8, 1987-11, , 2275-10 ####[facility] [id number] [place] [address] [place] Glucose [Mass/Vol] 87 mg/dL Normal 74-99 [facility] Comment on above: Order Comment: Yani elise Type: BLOOD SPECIMENOrdering Facility: [facility] Address: [address] [place] [address] Result Comment: The [place] Diabetes Association (ADA) provides guidance for cutoff [...] Standards of Medical Care in Diabetes 2016, [place] [employer] Association. Diabetes Care. 2016.39(Suppl 1). Performed By: #### 5 0190-8, 1987-11, , 2275-10 ####[facility] [id number] [place] [address] [place] Potassium [Moles/Vol] 4.0 mmol/L Normal 3.7-5.1 [facility] Comment on above: Order Comment: Speci men Type: BLOOD SPECIMENOrdering Facility: [facility] Address: [address] [place] [address] Performed By: #### 5 0190-8, 1987-11, , 2275-10 ####[facility] [id number] [place] [id number] [place] Protein [Mass/Vol] 6.6 g/dL Normal 6.3-8.0 [facility] Comment on above: Order Comment: Speci men Type: BLOOD SPECIMENOrdering Facility: [facility] Address: [address] [place] [address] Performed By: #### 5 0190-8, 1987-11, , 2275-10 ####[facility] [id number] [place] [id number] [place] Sodium [Moles/Vol] 140 mmol/L Normal 136-144 [facility] Comment on above: Order Comment: Speci men Type: BLOOD SPECIMENOrdering Facility: [facility] Address: [address] [place] [address] Performed By: #### 5 0190-8, 1987-11, , 2275-10 ####[facility] [id number] [place] [id number] [place] Urea nitrogen [Mass/Vol] 9 mg/dL Normal 7-21 [facility] Comment on above: Order Comment: Speci men Type: BLOOD SPECIMENOrdering Facility: [facility] Address: [address] [place] [address] Performed By: #### 5 0190-8, 1987-11, , 2275-10 ####[facility] [id number] [address] [address] [place] ESR Westergren method (Bld) [Velocity]on 08-06-2024 ESR (Bld) [Velocity] 5 mm/h [facility] Interpretation and review of laboratory results Normal [facility] ESR (Bld) [Velocity] 5 mm/h Normal 0-20 [facility] Comment on above: Order Comment: Speci men Type: BLOOD SPECIMENOrdering Facility: [facility] Address: [address] [place] [address] Performed By: #### 5 7021-8, 4537-7 ####[facility] [id number] [place] [address] [place] [facility] 2024 Ferritin [Mass/Vol] 66.9 ng/mL Normal 14.7-205.1 [facility] Comment on above: Order Comment: Speci men Type: BLOOD SPECIMENOrdering Facility: [facility] Address: [address] [place] [address] Performed By: #### 5 0190-8, 1987-11, , 2275- ####[facility] [id number] [place] [id number] [place] Iron and Iron binding capaci panelon 08-06-2024 Iron [Mass/Vol] 114 ug/dL Normal 41-186 [facility] Comment on above: Order Comment: Speci men Type: BLOOD SPECIMENOrdering Facility: [facility] Address: [address] [place] [address] Performed By: #### 5 0190-8, 1987-11, , 2275- ####[facility] [id number] [place] [address] [place] Iron binding capacity [Mass/Vol] 282 ug/dL Normal 232-386 [facility] Comment on above: Order Comment: Speci men Type: BLOOD SPECIMENOrdering Facility: [facility] Address: [address] [place] [address] Performed By: #### 5 0190, 1987-11, , 2275-10 ####[facility] LABCLIA [id number] [place] [address] [place] Iron/TIBC [Molar ratio] 40.4 % Normal 15.0-57.0 [facility] Comment on above: Order Comment: Speci men Type: BLOOD SPECIMENOrdering Facility: [facility] Address: [address] [place] [address] Performed By: #### 5 [id number], 1987-11, , 2275-10 ####[facility]CLIA [id number] [place] [address] [place] UA DIP, URINE (POC)on 2024 BILIRUBIN UA (POCT) Negative Negative [facility] CLARITY UA (POCT) Clear [facility] COLOR UA (POCT) Daya [facility] GLUCOSE UA (POCT) Negative Negative mg/dL [facility] Hemoglobin Ql (U) Negative Negative [facility] KETONE UA (POCT) Negative Negative mg/dL [facility] LEUKOCYTES UA (POCT) Negative Negative [facility] NITRITE UA (POCT) Negative Negative [facility] PH UA (POCT) 6.5 4.5 - 8.0 [facility] Protein Ql (U) Negative Negative mg/dL [facility] SPECIFIC GRAVITY UA (POCT) 1.020 1.005 - 1.030 [facility] UROBILINOGEN UA (POCT) 1.0 Michelle l E.U./dL [facility] Location:[address], [id number] [place] [address] POINT OF CARE [facility] XR ABDOMEN 1V SUPINEon 08-06 XR ABDOMEN [...] appear intact. IMPRESSION: Nonobstructive bowel gas pattern. Jack Tamp Operator: DIOGENES Transcribe Date/Time: Aug 07 2024 5:08P Dictated by : DARYA BINGHAM MD This examination was interpreted and the report reviewed and electronically signed by: DARYA BINGHAM MD on Aug 07 2024 5:10PM EST [id number] Normal [facility] XR Abdomen Supine and Uprigh ton 08-06-2024 Radiology Study observation (narrative) [facility] CNOVon 05-13-2024 CNOV Office Visit (NEMOWS ) MAXIMUS BRADLEY ([id number]) 1975 F Date Time Provider Department 05/13/24 11:00 AM KRISTY ASENCIO During your visit today, we recorded the following information about you: Pulse Respiration Blood pressure Weight 84/minute 16/minute 126/80 97 kg Kristy Asencio PA-C 05/13/2024 11:20 AM Signed [facility] Follow up CC: [...] 03/29/2015 Migra (more content not included)... Normal [facility] ECG COMPLETEon 01-02-2024 Atrial Rate 73 BPM [facility] Calculated P [place] 66 degrees [facility] Calculated R [place] 31 degrees [facility] Calculated T [place] 43 degrees [facility] P-R Interval 154 ms [facility] QRS Duration 90 ms [facility] QT Interval 398 ms [facility] QTC Calculation (Bazett) 438 ms [facility] Ventricular Rate 73 BPM [facility] NORMAL SINUS RHYTHM NORMAL ECG Confirmed by DANI HENDRIX M.D. ([id number]) on 01/02/2024 4:01:27 PM [facility] NAME : TANESHA BRADLEY PID : [id number] : 1975 Gender : Female Race : ORD : [id number] Procedure Date : Jan 02 2024 12:02:13 Edit Date : Jan 02 2024 16:01:28 Diagnosis: NORMAL SINUS RHYTHM NORMAL ECG Confirmed by DANI HENDRIX M.D. ([id number]) on 01/02/2024 4:01:27 PM Test Reason : R07.89 Other chest pain Location : 185 : WOFM Overread By : DANI HENDRIX M.D. Edited By : DANI HENDRIX M.D. Referred By : ISAAC HSU Acquired by : MICHAEL, [facility] DBT Breast - left diagnostic for implanton 09-05-2023 [facility] US Breast - left limitedon 0 09-05-2023 [facility] US Guidance for biopsy of Br east - lefton 09-05-2023 [facility] ESR Westergren method (Bld) [Velocity]on 06-05-2023 ESR (Bld) [Velocity] 8 mm/h 0 - 20 mm/hr [facility] XR ESOPHAGRAMon 05-08-2023 XR ESOPHAGRAM * * *Final Report* * * DATE OF EXAM: May 08 2023 2:42PM AWX [id number] - XR ESOPHAGRAM / PROCEDURE REASON: Esophageal dysphagia * * * * Physician Interpretation * * * * EXAM TITLE: XR ESOPHAGRAM DATE: 05/08/2023 COMPARISON: None. CLINICAL INDICATION/HISTORY: Dysphasia TECHNIQUE: Double contrast esophagram performed by a interventional radiology tech. 25 seconds of fluoroscopy time was utilized. [...] cm hiatal hernia with a Schatzki ring. Jack Tamp Operator: PSCB Transcribe Date/Time: May 08 2023 3:08P Dictated by : CHRIS MOREAU MD This examination was interpreted and the report reviewed and electronically signed by: CHRIS MOREAU MD on May 08 2023 3:23PM EST [id number] Normal [facility] 36on 04-18-2023 36 Received order for F ibroscan from [employer]. Called patient left message with office call back number. Normal [employer] [facility]S CBC W Auto Differential pane l (Bld)on 12-13-2022 Basophils (Bld) [#/Vol] 0.10 10*3/uL <0.11 k/uL [facility] Basophils/100 WBC (Bld) 0.9 % [facility] Differential cell count method Nom (Bld) Auto [facility] Eosinophils (Bld) [#/Vol] 0.49 10*3/uL High <0.46 k/uL [facility] Eosinophils/100 WBC (Bld) 4.4 % [facility] Erythrocyte distribution width (RBC) [Ratio] 12.9 % 11.5 - 15.0 % [facility] Hematocrit (Bld) [Volume fraction] 39.7 % 36.0 - 46.0 % [facility] Hemoglobin (Bld) [Mass/Vol] 13.0 g/dL 11.5 - 15.5 g/dL [facility] Immature granulocytes (Bld) [#/Vol] 0.04 10*3/uL <0.10 k/uL [facility] Immature granulocytes/100 WBC (Bld) 0.4 % [facility] Lymphocytes (Bld) [#/Vol] 2.59 10*3/uL 1.00 - 4.00 k/uL [facility] Lymphocytes/100 WBC (Bld) 23.3 % [facility] MCH (RBC) [Entitic mass] 26.9 pg 26.0 - 34.0 pg [facility] MCHC (RBC) [Mass/Vol] 32.7 g/dL 30.5 - 36.0 g/dL [facility] MCV (RBC) [Entitic vol] 82.0 fL 80.0 - 100.0 fL [facility] Monocytes (Bld) [#/Vol] 0.63 10*3/uL <0.87 k/uL [facility] Monocytes/100 WBC (Bld) 5.7 % [facility] Neutrophils (Bld) [#/Vol] 7.27 10*3/uL 1.45 - 7.50 k/uL [facility] Neutrophils/100 WBC (Bld) 65.3 % [facility] Nucleated RBC (Bld) [#/Vol] <0.01 k/uL [facility] Nucleated RBC/100 WBC (Bld) [Ratio] 0.0 /100 WBC [facility] Platelet mean volume (Bld) [Entitic vol] 9.6 fL 9.0 - 12.7 fL [facility] Platelets (Bld) [#/Vol] 501 10*3/uL High 150 - 400 k/uL [facility] RBC (Bld) [#/Vol] 4.84 10*6/uL 3.90 - 5.20 m/uL [facility] WBC (Bld) [#/Vol] 11.12 10*3/uL High 3.70 - 11.00 k/uL [facility] PARTH DIAG W LAURA LEFTon 10-18 [facility] US BREAST LTD LTon [facility] Absolute lymphocyte countOrd ered By: Dr. Bran on 10-14-2022 Lymphocytes Auto (Unsp spec) [#/Vol] 2.66 10*3/uL 0.83-4.51 [facility] Amorphous sediment detection in urine sediment by light microscopyOrdered By: Dr. Bran on 10-14-2022 Amorphous sediment LM Ql (Urine sed) 1+ [facility] Basophil percentageOrdered B y: Dr. Bran on 10-14-2022 Basophils/100 WBC (Bld) 1.0 % 0-1 [facility] Bilirubin [Mass/Vol] 0.50 mg/dL 0.20-1.[address] [facility] Comment on above: For patients on eltr ombopag therapy, use of Dimension [place] TBIL is not recommended. Chloride [Moles/Vol] 107 mmol/L 98-[address] [facility] Eosinophils/100 WBC (Bld) 4.0 % 0-5 [facility] Glucose [Mass/Vol] 81 mg/dL 74-106 [facility] Neutrophils (Bld) [#/Vol] 6.7 10*3/uL 2.0-7.7 [facility] Neutrophils/100 WBC (Bld) 62.5 % 47-70 [facility] Potassium [Moles/Vol] 3.5 mmol/L 3.5-5.1 [facility] Protein [Mass/Vol] 6.9 g/dL 6.4-8.2 [facility] Sodium [Moles/Vol] 139 mmol/L 136-145 [facility] WBC (Bld) [#/Vol] 10.7 10*3/uL 4.4-11.0 [facility] Basophil percentage 0 SEEN /hpf 0-[address] [facility] Bilirubin Test strip Ql (U)O rdered By: Dr. Bran on 10-14-2022 Bilirubin Ql (U) Negative Negative [facility] Blood erythrocytes count (nu mber/volume)Ordered By: Dr. Bran on 10-14-2022 RBC (Bld) [#/Vol] 4.82 10*6/uL 4.2-5.4 [facility] Blood hemoglobin measurement (mass/volume)Ordered By: Dr. Bran on 10-14-2022 Hemoglobin (Bld) [Mass/Vol] 13.0 g/dL 12.0-15.0 [facility] Blood lymphocytes/100 leukoc ytesOrdered By: Dr. Bran on 10-14-2022 Lymphocytes/100 WBC (Bld) 24.8 % 19-41 [facility] Blood monocytes/100 leukocyt esOrdered By: Dr. Bran on 10-14-2022 Monocytes/100 WBC (Bld) 7.2 % 0-10 [facility] Blood platelet mean volumeOr dered By: Dr. Bran on 10-14-2022 Platelet mean volume (Bld) [Entitic vol] 9.4 fL 6.2-12.0 [facility] Determination of erythrocyte mean corpuscular volume (MCV)Ordered By: Dr. Bran on 10-14-2022 MCV (RBC) [Entitic vol] 82.4 fL 81-99 [facility] Direct bilirubinOrdered By: Dr. Bran on 10-14-2022 Bilirubin.direct [Mass/Vol] 0.13 mg/dL 0.00-0.30 [facility] Hematocrit Auto (Bld) [Volum e fraction]Ordered By: Dr. Bran on 10-14-2022 Hematocrit (Bld) [Volume fraction] 39.7 % 37-47 [facility] Ketones Test strip Ql (U)Ord ered By: Dr. Bran on 10-14-2022 Ketones Ql (U) Negative Negative [facility] Laboratory - Chemistry and C hemistry - challengeOrdered By: Dr. Bran on 10-14-2022 ALP [Catalytic activity/Vol] 85 U/L 45-117 [facility] ALT [Catalytic activity/Vol] 18 U/L 13-56 [facility] CO2 [Moles/Vol] 25.0 mmol/L 21.0-32.0 [facility] Globulin (S) [Mass/Vol] 3.6 g/dL 2.2-4.2 [facility] Lipase [Catalytic activity/Vol] 90 U/L 73-393 [facility] Urea nitrogen/Creatinine [Mass ratio] 13.9 mg/mg 10-20 [facility] Laboratory - Hematology and Cell countsOrdered By: Dr. Bran on 10-14-2022 Erythrocyte distribution width (RBC) [Entitic vol] 38.5 fL 35.1-43.9 [facility] Erythrocyte distribution width (RBC) [Ratio] 13.0 % 11.6-14.6 [facility] Immature granulocytes/100 WBC (Bld) 0.500 % 0.0-0.9 [facility] Comment on above: IG% - Immature Granu locytes (promyelocytes, myelocytes and metamyelocytes) > 1% indicates that a LEFT SHIFT is Present. MCH (RBC) [Entitic mass] 27.0 pg 27.0-32.0 [facility] Nucleated RBC/100 WBC (Bld) [Ratio] 0 % 0-5 [facility] MCHC Auto (RBC) [Mass/Vol]Or dered By: Dr. Bran on 10-14-2022 MCHC (RBC) [Mass/Vol] 32.7 g/dL 32-36 [facility] Mucus LM Ql (Urine sed)Order ed By: Dr. Bran on 10-14-2022 Mucus Ql (Urine sed) 0 SEEN /hpf [facility] Nitrite Test strip Ql (U)Ord ered By: Dr. Bran on 10-14-2022 Nitrite Ql (U) Negative Negative [facility] No Panel InformationOrdered By: Dr. Bran on 10-14-2022 Estimated Creatinine Clearance Calc 76.52 ml/min [facility] Estimated GFR (MDRD) Amer 91 mL/min >60 [facility] Comment on above: GFR Calc Estimated GFR (MDRD) Non-Af Amer 75 mL/min >60 [facility] Comment on above: Non- GFR Calc Platelets bldOrdered By: Dr. Bran on 10-14-2022 Platelets (Bld) [#/Vol] 447 10*3/uL 150-450 [facility] Protein Test strip Ql (U)Ord ered By: Dr. Bran on 10-14-2022 Protein Ql (U) Negative Negative [facility] Serum or plasma albumin coleman urement (mass/volume)Ordered By: Dr. Bran on 10-14-2022 Albumin [Mass/Vol] 3.3 g/dL 3.2-5.0 [facility] Serum or plasma calcium coleman urement (mass/volume)Ordered By: Dr. Bran on 10-14-2022 Calcium [Mass/Vol] 9.1 mg/dL 8.5-10.1 [facility] Serum or plasma creatinine m easurement (mass/volume)Ordered By: Dr. Bran on 10-14-2022 Creatinine [Mass/Vol] 0.86 mg/dL 0.55-1.02 [facility] Comment on above: The validity of the calculated GFR & GFRAA in patients over 70 years has not been determined. Clinical correlation is essential. Serum or plasma urea nitroge n measurement (mass/volume)Ordered By: Dr. Bran on 10-14-2022 Urea nitrogen [Mass/Vol] 12 mg/dL 7-18 [facility] Squamous epithelial cells de tection in urine sediment by light microscopyOrdered By: Dr. Bran on 10-14-2022 Epithelial cells.squamous LM Ql (Urine sed) 0-5 SEEN /hpf 5-10 [facility] Thin prep Papanicolaou smear with manual screeningOrdered By: Dr. Bran on 10-14-2022 Thin prep Papanicolaou smear with manual screening 15 U/L 15-37 [facility] Thin prep Papanicolaou smear with manual screening 7 5-15 [facility] Urine blood detectionOrdered By: Dr. Bran on 10-14-2022 RBC Ql (U) Negative Negative [facility] RBC Ql (U) 0 SEEN /hpf 0-5 [facility] Urine clarityOrdered By: Dr. Bran on 10-14-2022 Clarity (U) Cloudy Clear [facility] Urine color determinationOrd ered By: Dr. Bran on 10-14-2022 Color (U) Yellow Yellow [facility] Urine glucose detectionOrder ed By: Dr. Bran on 10-14-2022 Glucose Ql (U) Normal mg/dl Normal [facility] Urine leukocyte esterase det ection by dipstickOrdered By: Dr. Bran on 10-14-2022 Leukocyte esterase Test strip Ql (U) Negative Negative [facility] Urine pHOrdered By: Dr. Wilton fernandez on 10-14-2022 pH (U) 8.0 [pH] 5.0 - 8.0 [facility] Urine sediment bacteria coun t by microscopy (number/high power field)Ordered By: Dr. Bran on 10-14-2022 Bacteria LM.HPF (Urine sed) [#/Area] 0 /[HPF] None Seen [facility] Urine specific gravity measu rementOrdered By: Dr. Bran on 10-14-2022 Specific gravity (U) [Rel density] 1.015 1.002-1.[address] [facility] Urobilinogen Auto test strip Ql (U)Ordered By: Dr. Bran on 10-14-2022 Urobilinogen Ql (U) Normal mg/dl Normal [facility] XR Ankle - right AP and Late ral and obliqueon 09-01-2022 IMPRESSION: No acute radiographic abnormalities seen in the right ankle. Jack Tamp Operator: [facility] Transcribe Date/Time: Sep 01 2022 2:08P Dictated by : DARYA BINGHAM MD This examination was interpreted and the report reviewed and electronically signed by: DARYA BINGHAM MD on Sep 01 2022 2:19PM [facility] DIVISION OF RADIOLOGY * * [...] radiographic abnormalities seen in the right ankle. Jack Tamp Operator: DIOGENES Transcribe Date/Time: Sep 01 2022 2:08P Dictated by : DARYA BINGHAM MD This examination was interpreted and the report reviewed and electronically signed by: DARYA BINGHAM MD on Sep 01 2022 2:19PM EST [facility] XR Ankle - right AP and Late ral and obliqueOrdered By: Ccf Provider on 09-01-2022 [facility] XR Ankle - right AP and Late ral and obliqueon 08-30-2022 Radiology Study observation (narrative) [facility] CT ABD/PEL W IVCONon 022 [facility] XR WRIST INJURY 4V PA/LAT/OB L/SCAPH RIGHTon 01-03-2022 [facility] XR Wrist - right 4 Viewson 0 01-03-2022 IMPRESSION: Findings most compatible with dorsal chip fracture, a finding most often seen in setting of a triquetral fracture. Jack Tamp Operator: PSCB Transcribe Date/Time: Jan 03 2022 4:15P Dictated [...] ZZZ_DO_NOT _USE_DIVIS ION OF RADIOLOGY Provider, Solomon Vallecillo - 01/03/2022 * * *Final Report* * [...] seen in setting of a triquetral fracture. Jack Tamp Operator: DIOGENES Transcribe Date/Time: Jan 03 2022 4:15P Dictated by : KIRILL PEREZ MD This examination was interpreted and the report reviewed and electronically signed by: KIRILL PEREZ MD on Jan 03 2022 4:18PM EST [facility] Radiology Study observation (narrative) [facility] XR Wrist - right 4 ViewsOrde red By: Ccf Provider on 01-03-2022 [facility] No Panel Informationon 12-21 [facility] NM HEPATOBILIARY W EF AND/OR RXon 12-09-2021 [facility] COLONOSCOPY SCREENINGon 05-2 [facility] XR Cervical spine AP and Lat eral and obliqueon 09-20-2021 IMPRESSION: Cervical spine degenerative changes as described above. Jack Tamp Operator: DIOGENES Transcribe Date/Time: Sep 20 2021 8:12A [...] tissues are normal. DIVISION OF RADIOLOGY Provider, [facility] - 09/20/2021 * * *Final Report* * [...] Cervical spine degenerative changes as described above. Jack Tamp Operator: DIOGENES Transcribe Date/Time: Sep 20 2021 8:12A Dictated by : DARYA BINGHAM MD This examination was interpreted and the report reviewed and electronically signed by: DARYA BINGHAM MD on Sep 20 2021 8:17AM EST [facility] No Panel Informationon 09-19 Radiology Study observation (narrative) [facility] XR Shoulder - right 3 Viewso n 09-19-2021 IMPRESSION: 1. Mild degenerative changes. 2. No acute findings. Jack Tamp Operator: DIOGENES Transcribe Date/Time: Sep 19 2021 3:37P Dictated [...] erosions or calcifications. DIVISION OF RADIOLOGY [facility], [facility]/19/[facility]21 * * *Final Report* * [...] Mild degenerative changes. 2. No acute findings. Jack Tamp Operator: DIOGENES Transcribe Date/Time: Sep 19 2021 3:37P Dictated by : JAIME MARQUEZ MD This examination was interpreted and the report reviewed and electronically signed by: JAIME MARQUEZ MD on Sep 19 2021 3:38PM EST [facility] XR Shoulder - right 3 ViewsO rdered By: Ccf Provider on 09-19-2021 [facility] XR Wrist - right 4 Viewson 0 08-23-2021 IMPRESSION: No acute radiographic abnormalities seen in the right wrist. Jack Tamp Operator: DIOGENES Transcribe Date/Time: Aug 23 2021 4:18P Dictated by : DARYA BINGHAM MD This examination was interpreted and the report reviewed and electronically signed by: DARYA BINGHAM MD on Aug 23 2021 4:20PM [facility] DIVISION OF RADIOLOGY * * [...] soft tissue swelling. DIVISION OF RADIOLOGY Provider, [facility] - 08/23/2021 * * *Final Report* * [...] radiographic abnormalities seen in the right wrist. Jack Tamp Operator: DIOGENES Transcribe Date/Time: Aug 23 2021 4:18P Dictated by : DARYA BINGHAM MD This examination was interpreted and the report reviewed and electronically signed by: DARYA BINGHAM MD on Aug 23 2021 4:20PM EST [facility] Radiology Study observation (narrative) [facility] XR Wrist - right 4 ViewsOrde red By: Ccf Provider on 08-23-2021 [facility] EMERGENCY REPORTon 1 [facility] REPORT NAME ACCOUNT SEX AGE ADMIT DISCHARGE PT MED. RECORD# NUMBER DATE DATE TYPE KIRK [id number] F 45 07/13/20 07/13/20 3 MAXIMUS Ciera [address] ROOM: ER DATE OF : 1975 DICTATING [...] Gregory Galindo DO 07/13/20 18:02 JOB #: [id number] Transcribed By: am 07/13/20 19:44 Electronically signed by: E-SIGN: Gregory Galindo D.O. 07/22/20 07:19 Page 2 of 2 MAXIMUS BRADLEY Emergency Room Report Normal [facility] HIP COMPLETE RT MIN 2 VIEWS W/PELVISon 07-13-2020 HIP COMPLETE RT MIN 2 VIEWS W/PELVIS [place] [address] Patient: MAXIMUS BRADLEY. Phone#: : 1975 Age: 45 Gender: F Pt. Type: ER Account: [id number] Location: [facility] Ordering: GREGORY GALINDO Exam Date: 07/13/2020/17:10 Family Phys: LUCILLE PACHECO Charge Code: [id number] Physician: Hardee Order #: [id number] DLP Dose#: PROCEDURE: X-RAY HIP RT COMPLETE MIN 2 VIEWS W/PELVIS COMPARISON: None. INDICATIONS: Pain. FINDINGS: BONES: Mild degenerative changes of the hips are present. SOFT TISSUES: Negative. No visible soft tissue swelling. EFFUSION: None visible. OTHER: Negative. CONCLUSION: No acute disease. Dictated by: Mary Wilkins MD on 07/13/2020 at 17:38 Approved by: Mary Wilkins MD on 07/13/2020 at 17:39 Normal [facility] SHOULDER COMPLETE RTon 07-13 SHOULDER COMPLETE RT [address] [address] Patient: MAXIMUS BRADLEY Phone#: : 1975 Age: 45 Gender: F Pt. Type: ER Account: [id number] Location: [facility] Ordering: GREGORY GALINDO Exam Date: 07/13/2020/17:12 Family Phys: LUCILLE Glenn PACHECO Charge Code: [id number] Physician: Hardee Order #: [id number] DLP Dose#: PROCEDURE: X-RAY SHOULDER COMPLETE RT [...] Wilkins MD on 07/13/2020 at 17:37 Normal [facility] No Panel Information [facility] Vital Signs Date Time Vital Sign Value Performing Clinician Faci marlysy 03-02-2025 [id number] Body height 163 cm Leny Hsu MD Work Phone: [facility] 03-02-2025 13:06-0400 Body mass index (BMI) [Ratio] 35.72 kg/m2 Leny Hsu MD Work Phone: [facility] 03-02-2025 13:[phone] Body weight 94.89 kg Leny Hsu MD Work Phone: [facility] 03-02-2025 13:06-0400 Diastolic blood pressure 86 mm[Hg] Leny Hsu MD Work Phone: [facility] 03-02-2025 13:06-0400 Heart rate 88 /min Leny Hsu MD Work Phone: [facility] 03-02-2025 13:06-0400 SaO2% (BldA) [Mass fraction] 99 % Leny Hsu MD Work Phone: [facility] 03-02-2025 13:06-0400 Systolic blood pressure 134 mm[Hg] Leny Hsu MD Work Phone: [facility] 02-05-2025 12:30-0400 Body mass index (BMI) [Ratio] 35.51 kg/m2 Lydia Podlogar C[employer] ARTIST.MOTION STUDY ENGINEER Work Phone: [facility] 02-05-2025 12:30-0400 Body weight 94.35 kg Lydia Podlogar CARTOON ARTIST.MOTION STUDY ENGINEER Work Phone: [facility] 02-05-2025 12:30-0400 Diastolic blood pressure 86 mm[Hg] Lydia Podlogar CARTOON ARTIST.MOTION STUDY ENGINEER Work Phone: [facility] 02-05-2025 12:30-0400 Heart rate 85 /min Lydia Podlogar CARTOON ARTIST.MOTION STUDY ENGINEER Work Phone: [facility] 02-05-2025 12:30-0400 SaO2% (BldA) [Mass fraction] 98 % Lydia Podlogar CARTOON ARTIST.MOTION STUDY ENGINEER Work Phone: [facility] [facility] 02-05-2025 12:30-0400 Systolic blood pressure 124 mm[Hg] Lydia Podlogar CARTOON ARTIST.MOTION STUDY ENGINEER Work Phone: [facility] 02-01-2025 21:43-0400 Body temperature 98.2 [degF] Dr. Isaac Hsu MD Work Phone: [facility] 02-01-2025 21:43-0400 Diastolic blood pressure 92 mm[Hg] Dr. Isaac Hsu MD Work Phone: [facility] 02-01-2025 21:43-0400 Heart rate 73 /min Dr. Isaac Hsu MD Work Phone: [facility] 02-01-2025 21:43-0400 Respiratory rate 18 /min Dr. Isaac Hsu MD Work Phone: [facility] 02-01-2025 21:43-0400 SaO2% (BldA) [Mass fraction] 99 % Dr. Isaac Hsu MD Work Phone: [facility] 02-01-2025 21:43-0400 Systolic blood pressure 141 mm[Hg] Dr. Isaac Hsu MD Work Phone: [facility] 02-01-2025 20:01-0400 Body height 167.[address] Isaac Hsu MD Work Phone: [facility] 02-01-2025 20:01-0400 Body mass index (BMI) [Ratio] 34 kg/m2 Dr. Isaac Hsu MD Work Phone: [facility] 02-01-2025 20:01-0400 Body weight 95.[address] Isaac Hsu MD Work Phone: [facility] 11-10-2024 13:43-0400 Body height 163 cm Ema [place] CARTOON ARTIST.MOTION STUDY ENGINEER Work Phone: [facility] 11-10-2024 13:43-0400 Body mass index (BMI) [Ratio] 36.16 kg/m2 Ema [place] CARTOON ARTIST.MOTION STUDY ENGINEER Work Phone: [facility] 11-10-2024 13:43-0400 Body weight 96.07 kg Ema Edison CARTOON ARTIST.MOTION STUDY ENGINEER Work Phone: [facility] 11-10-2024 13:43-0400 Diastolic blood pressure 78 mm[Hg] Ema Edison CARTOON ARTIST.MOTION STUDY ENGINEER Work Phone: [facility] 11-10-2024 13:43-0400 Systolic blood pressure 124 mm[Hg] Ella Riley CARTOON ARTIST.MOTION STUDY ENGINEER Work Phone: [facility] 11-10-2024 11:00-0400 Body mass index (BMI) [Ratio] 33.7 kg/m2 Ella Riley APRN.MOTION STUDY ENGINEER Work Phone: [facility] 11-10-2024 11:00-0400 Body temperature 98.2 [degF] Ella Riley APRN.MOTION STUDY ENGINEER Work Phone: [facility] 11-10-2024 11:00-0400 Body weight 94.7 kg Ella Riley APRN.MOTION STUDY ENGINEER Work Phone: [facility] 11-10-2024 11:00-0400 Diastolic blood pressure 70 mm[Hg] Ella Riley APRN.MOTION STUDY ENGINEER Work Phone: [facility] 11-10-2024 11:00-0400 Heart rate 96 /min Ella Riley APRN.MOTION STUDY ENGINEER Work Phone: [facility] 11-10-2024 11:00-0400 Respiratory rate 16 /min Ella Riley APRN.MOTION STUDY ENGINEER Work Phone: [facility] 11-10-2024 11:00-0400 SaO2% (BldA) [Mass fraction] 99 % Ellazuleyka Rliey APRN.MOTION STUDY ENGINEER Work Phone: [facility] 10-28-2024 14:09-0400 Body mass index (BMI) [Ratio] 34.02 kg/m2 Leny Hsu MD Work Phone: [facility] 10-28-2024 14:09-0400 Body weight 95.62 kg Leny Hsu MD Work Phone: [facility] 10-28-2024 14:09-0400 Diastolic blood pressure 64 mm[Hg] Leny Hsu MD Work Phone: [facility] 10-28-2024 14:09-0400 Heart rate 85 /min Leny Hsu MD Work Phone: [facility] 10-28-2024 14:09-0400 Respiratory rate 16 /min Leny Hsu MD Work Phone: [facility] 10-28-2024 14:09-0400 SaO2% (BldA) [Mass fraction] 98 % Leny Hsu MD Work Phone: [facility] 10-28-2024 14:09-0400 Systolic blood pressure 118 mm[Hg] Leny Hsu MD Work Phone: [facility] 10-24-2024 12:27-0400 Diastolic blood pressure 76 mm[Hg] Kirk Cast MD Work Phone: [facility] 10-24-2024 12:27-0400 Heart rate 81 /min Kirk Cast MD Work Phone: [facility] 10-24-2024 12:27-0400 Respiratory rate 16 /min Kirk Cast MD Work Phone: [facility] 10-24-2024 12:27-0400 SaO2% (BldA) [Mass fraction] 99 % Kirk Cast MD Work Phone: [facility] 10-24-2024 12:27-0400 Systolic blood pressure 138 mm[Hg] Kirk Cast MD Work Phone: [facility] 10-24-2024 11:25-0400 Body mass index (BMI) [Ratio] 34.69 kg/m2 Kirk Cast MD Work Phone: [facility] 10-24-2024 11:25-0400 Body temperature 97.5 [degF] Kirk Cast MD Work Phone: [facility] 10-24-2024 11:25-0400 Body weight 97.5 kg Kirk Cast MD Work Phone: [facility] 09-02-2024 12:48-0500 Body mass index (BMI) [Ratio] 34.7 kg/m2 Leny Hsu MD Work Phone: [facility] 09-02-2024 12:48-0500 Body weight 97.52 kg Leny Hsu MD Work Phone: [facility] 09-02-2024 12:48-0500 Diastolic blood pressure 86 mm[Hg] Leny Hsu MD Work Phone: [facility] 09-02-2024 12:48-0500 Heart rate 88 /min Leny Hsu MD Work Phone: [facility] 09-02-2024 12:48-0500 Respiratory rate 20 /min Leny Hsu MD Work Phone: [facility] 09-02-2024 12:48-0500 SaO2% (BldA) [Mass fraction] 98 % Leny Hsu MD Work Phone: [facility] 09-02-2024 12:48-0500 Systolic blood pressure 128 mm[Hg] Leny Hsu MD Work Phone: [facility] 08-06-2024 10:56-0500 Body mass index (BMI) [Ratio] 35.12 kg/m2 Leny Hsu MD Work Phone: [facility] 08-06-2024 10:56-0500 Body weight 98.7 kg Leny Hsu MD Work Phone: [facility] 08-06-2024 10:56-0500 Diastolic blood pressure 76 mm[Hg] Leny Hsu MD Work Phone: [facility] 08-06-2024 10:56-0500 Heart rate 93 /min Leny Hsu MD Work Phone: [facility] 08-06-2024 10:56-0500 Respiratory rate 16 /min Leny Hsu MD Work Phone: [facility] 08-06-2024 10:56-0500 SaO2% (BldA) [Mass fraction] 98 % Leny Hsu MD Work Phone: [facility] 08-06-2024 10:56-0500 Systolic blood pressure 124 mm[Hg] Leny Hsu MD Work Phone: [facility] 05-13-2024 10:19-0500 Body mass index (BMI) [Ratio] 34.52 kg/m2 Kristy Asencio PA-C Work Phone: [facility] 05-13-2024 10:19-0500 Body weight 97 kg Kristy Hernandeser PA-C Work Phone: [facility] 05-13-2024 10:19-0500 Diastolic blood pressure 80 mm[Hg] Kristy Hernandeser PA-C Work Phone: [facility] 05-13-2024 10:19-0500 Heart rate 84 /min Kristy Hernandeser PA-C Work Phone: [facility] 05-13-2024 10:19-0500 Respiratory rate 16 /min Kristy Hernandeser PA-C Work Phone: [facility] 05-13-2024 10:19-0500 SaO2% (BldA) [Mass fraction] 96 % Kristy Hernandeser PA-C Work Phone: [facility] 05-13-2024 10:19-0500 Systolic blood pressure 126 mm[Hg] Kristy Hernandeser PA-C Work Phone: [facility] 02-04-2024 10:57-0400 Body mass index (BMI) [Ratio] 34.51 kg/m2 Leny Hsu MD Work Phone: [facility] 02-04-2024 10:57-0400 Body weight 96.98 kg Leny Hsu MD Work Phone: [facility] 02-04-2024 10:57-0400 Diastolic blood pressure 76 mm[Hg] Leny Hsu MD Work Phone: [facility] 02-04-2024 10:57-0400 Heart rate 84 /min Leny Hsu MD Work Phone: [facility] 02-04-2024 10:57-0400 Respiratory rate 16 /min Leny Hsu MD Work Phone: [facility] 02-04-2024 10:57-0400 SaO2% (BldA) [Mass fraction] 98 % Leny Hsu MD Work Phone: [facility] 02-04-2024 10:57-0400 Systolic blood pressure 128 mm[Hg] eLny Hsu MD Work Phone: [facility] 01-14-2024 13:20-0400 Body mass index (BMI) [Ratio] 34.54 kg/m2 Leny Hsu MD Work Phone: [facility] 01-14-2024 13:20-0400 Body weight 97.07 kg Leny Hsu MD Work Phone: [facility] 01-14-2024 13:20-0400 Diastolic blood pressure 84 mm[Hg] Leny Hsu MD Work Phone: [facility] 01-14-2024 13:20-0400 Heart rate 97 /min Leny Hsu MD Work Phone: [facility] 01-14-2024 13:20-0400 Respiratory rate 16 /min Leny Hsu MD Work Phone: [facility] 01-14-2024 13:20-0400 SaO2% (BldA) [Mass fraction] 98 % Leny Hsu MD Work Phone: [facility] 01-14-2024 13:20-0400 Systolic blood pressure 120 mm[Hg] Leny Hsu MD Work Phone: [facility] 01-02-2024 11:21-0400 Body mass index (BMI) [Ratio] 34.22 kg/m2 Leny Hsu MD Work Phone: [facility] 01-02-2024 11:21-0400 Body weight 96.16 kg Leny Hsu MD Work Phone: [facility] 01-02-2024 11:21-0400 Diastolic blood pressure 84 mm[Hg] Leny Hsu MD Work Phone: [facility] 01-02-2024 11:21-0400 Heart rate 81 /min Leny Hsu MD Work Phone: [facility] 01-02-2024 11:21-0400 Respiratory rate 16 /min Leny Hsu MD Work Phone: [facility] 01-02-2024 11:21-0400 SaO2% (BldA) [Mass fraction] 98 % Leny Hsu MD Work Phone: [facility] 01-02-2024 11:21-0400 Systolic blood pressure 128 mm[Hg] Leny Hsu MD Work Phone: [facility] 12-19-2023 14:14-0400 Body mass index (BMI) [Ratio] 34.09 kg/m2 Leny Hsu MD Work Phone: [facility] 12-19-2023 14:140400 Body weight 95.8 kg Leny Hsu MD Work Phone: [facility] 12-19-2023 14:14-0400 Diastolic blood pressure 78 mm[Hg] Leny Hsu MD Work Phone: [facility] 12-19-2023 14:14-0400 Heart rate 96 /min Leny Hsu MD Work Phone: [facility] 12-19-2023 14:14-0400 Respiratory rate 18 /min Leny Hsu MD Work Phone: [facility] 12-19-2023 14:14-0400 SaO2% (BldA) [Mass fraction] 97 % Leny Hsu MD Work Phone: [facility] 12-19-2023 14:14-0400 Systolic blood pressure 126 mm[Hg] Leny Hsu MD Work Phone: [facility] 10-01-2023 09:11-0400 Body weight 94.89 kg Leny Hsu MD Work Phone: [facility] 10-01-2023 09:11-0400 Diastolic blood pressure 76 mm[Hg] Leny Hsu MD Work Phone: [facility] 10-01-2023 09:11-0400 Heart rate 87 /min Leny Hsu MD Work Phone: [facility] 10-01-2023 09:11-0400 SaO2% (BldA) [Mass fraction] 99 % Leny Hsu MD Work Phone: [facility] 10-01-2023 09:11-0400 Systolic blood pressure 124 mm[Hg] Leny Hsu MD Work Phone: [facility] 09-20-2023 11:14-0400 Body height 167.6 cm Jordin Dickerson MD Work Phone: [facility] 09-20-2023 11:14-0400 Body temperature 98.1 [degF] Jordin Dickerson MD Work Phone: [facility] 09-20-2023 11:14-0400 Body weight 93.44 kg Jordin Dickerson MD Work Phone: [facility] 09-20-2023 11:14-0400 Diastolic blood pressure 64 mm[Hg] Jordin Dickerson MD Work Phone: [facility] 09-20-2023 11:14-0400 Heart rate 92 /min Jordin Dickerson MD Work Phone: [facility] 09-20-2023 11:14-0400 SaO2% (BldA) [Mass fraction] 98 % Jordin Dickerson MD Work Phone: [facility] 09-20-2023 11:14-0400 Systolic blood pressure 102 mm[Hg] Jordin Dickerson MD Work Phone: [facility] 09-19-2023 15:54-0400 Body weight 93.44 kg Kristy Hernandeser PA-C Work Phone: [facility] 09-19-2023 15:54-0400 Diastolic blood pressure 76 mm[Hg] Kristy Hernandeser PA-C Work Phone: [facility] 09-19-2023 15:54-0400 Heart rate 90 /min Kristy Queener PA-C Work Phone: [facility] 09-19-2023 15:54-0400 Respiratory rate 18 /min Kristy Hernandeser PA-C Work Phone: [facility] 09-19-2023 15:54-0400 SaO2% (BldA) [Mass fraction] 99 % Kristydelvis Hernandesbo PA-C Work Phone: [facility] 09-19-2023 15:54-0400 Systolic blood pressure 123 mm[Hg] Kristy Asencio PA-C Work Phone: [facility] 08-13-2023 15:07-0500 Body height 162.6 cm Kirk Cast MD Work Phone: [facility] 08-13-2023 15:07-0500 Body temperature 99 [degF] Kirk Cast MD Work Phone: [facility] 08-13-2023 15:07-0500 Body weight 92.9 kg Kirk Cast MD Work Phone: [facility] 08-13-2023 15:07-0500 Diastolic blood pressure 80 mm[Hg] Kirk Cast MD Work Phone: [facility] 08-13-2023 15:07-0500 Heart rate 100 /min Kirk Cast MD Work Phone: [facility] 08-13-2023 15:07-0500 Respiratory rate 14 /min Kirk Cast MD Work Phone: [facility] 08-13-2023 15:07-0500 SaO2% (BldA) [Mass fraction] 96 % Kirk Cast MD Work Phone: [facility] 08-13-2023 15:07-0500 Systolic blood pressure 124 mm[Hg] Kirk Cast MD Work Phone: [facility] 06-05-2023 08:53-0500 Body height 167.6 cm Kristy Asencio PA-C Work Phone: [facility] 06-05-2023 08:53-0500 Body weight 91.81 kg Kristy Hernandeser PA-C Work Phone: [facility] 06-05-2023 08:53-0500 Diastolic blood pressure 61 mm[Hg] Kristy Hernandeser PA-C Work Phone: [facility] 06-05-2023 08:53-0500 Heart rate 74 /min Kristy Hernandeser PA-C Work Phone: [facility] 06-05-2023 08:53-0500 Respiratory rate 16 /min Kristy Hernandeser PA-C Work Phone: [facility] 06-05-2023 08:53-0500 SaO2% (BldA) [Mass fraction] 98 % Kristy Hernandeser PA-C Work Phone: [facility] 06-05-2023 08:53-0500 Systolic blood pressure 101 mm[Hg] Kristy Hernandeser PA-C Work Phone: [facility] 05-14-2023 15:02-0500 Diastolic blood pressure 70 mm[Hg] Leny Hsu MD Work Phone: [facility] 05-14-2023 15:02-0500 Heart rate 82 /min Leny Hsu MD Work Phone: [facility] 05-14-2023 15:02-0500 Respiratory rate 16 /min Leny Hsu MD Work Phone: [facility] 05-14-2023 15:02-0500 SaO2% (BldA) [Mass fraction] 97 % Leny Hsu MD Work Phone: [facility] 05-14-2023 15:02-0500 Systolic blood pressure 124 mm[Hg] Leny Hsu MD Work Phone: [facility] 04-18-2023 10:40-0400 Body height 167.6 cm Nicole Kalka PA-C Work Phone: [facility] 04-18-2023 10:40-0400 Body weight 90.27 kg Nicole Kalka PA-C Work Phone: [facility] 04-18-2023 10:40-0400 Diastolic blood pressure 72 mm[Hg] Nicole Kalka PA-C Work Phone: [facility] 04-18-2023 10:40-0400 Heart rate 82 /min Nicole Sumanka PA-C Work Phone: [facility] 04-18-2023 10:40-0400 Systolic blood pressure 118 mm[Hg] Nicole Sumanka PA-C Work Phone: [facility] 03-16-2023 10:21-0400 Body weight 90.54 kg Leny Hsu MD Work Phone: [facility] 03-16-2023 10:21-0400 Diastolic blood pressure 76 mm[Hg] Leny Hsu MD Work Phone: [facility] 03-16-2023 10:21-0400 Heart rate 83 /min Leny Hsu MD Work Phone: [facility] 03-16-2023 10:21-0400 Respiratory rate 16 /min Leny Hsu MD Work Phone: [facility] 03-16-2023 10:21-0400 SaO2% (BldA) [Mass fraction] 99 % Leny Hsu MD Work Phone: [facility] 03-16-2023 10:21-0400 Systolic blood pressure 122 mm[Hg] Leny Hsu MD Work Phone: [facility] 01-19-2023 11:07-0400 Diastolic blood pressure 70 mm[Hg] Leny Hsu MD Work Phone: [facility] 01-19-2023 11:07-0400 Heart rate 78 /min Leny Hsu MD Work Phone: [facility] 01-19-2023 11:07-0400 Respiratory rate 16 /min Leny Hsu MD Work Phone: [facility] 01-19-2023 11:07-0400 SaO2% (BldA) [Mass fraction] 95 % Leny Hsu MD Work Phone: [facility] 01-19-2023 11:07-0400 Systolic blood pressure 124 mm[Hg] Leny Hsu MD Work Phone: [facility] 01-15-2023 13:37-0400 Body weight 91.35 kg Lydia Podlogar CARTOON ARTIST.MOTION STUDY ENGINEER Work Phone: [facility] 01-15-2023 13:37-0400 Diastolic blood pressure 68 mm[Hg] Lydia Podlogar CARTOON ARTIST.MOTION STUDY ENGINEER Work Phone: [facility] 01-15-2023 13:37-0400 Heart rate 93 /min Lydia Podlogar CARTOON ARTIST.MOTION STUDY ENGINEER Work Phone: [facility] 01-15-2023 13:37-0400 Respiratory rate 16 /min Lydia Podlogar CARTOON ARTIST.MOTION STUDY ENGINEER Work Phone: [facility] 01-15-2023 13:37-0400 SaO2% (BldA) [Mass fraction] 99 % Lydia Podlogar CARTOON ARTIST.MOTION STUDY ENGINEER Work Phone: [facility] 01-15-2023 13:37-0400 Systolic blood pressure 108 mm[Hg] Lydia Podlogar CARTOON ARTIST.MOTION STUDY ENGINEER Work Phone: [facility] 01-12-2023 13:23-0400 Body temperature 98.01 [degF] Jeanette Athy PA-C Work Phone: [facility] 01-12-2023 13:23-0400 Body weight 91.63 kg Jeanette Athy PA-C Work Phone: [facility] 01-12-2023 13:23-0400 Diastolic blood pressure 64 mm[Hg] Jeanette Athy PA-C Work Phone: [facility] 01-12-2023 13:23-0400 Heart rate 81 /min Jeanette Athy PA-C Work Phone: [facility] 01-12-2023 13:23-0400 Respiratory rate 18 /min Jeanette Athy PA-C Work Phone: [facility] 01-12-2023 13:23-0400 SaO2% (BldA) [Mass fraction] 98 % Jeanette Ibarra PA-Sarah Work Phone: [facility] 01-12-2023 13:23-0400 Systolic blood pressure 110 mm[Hg] Jeanette Ibarra PA-C Work Phone: [facility] 12-13-2022 14:33-0400 Body height 167.6 cm Leny Hsu MD Work Phone: [facility] 12-13-2022 14:33-0400 Body weight 92.53 kg Leny Hsu MD Work Phone: [facility] 12-13-2022 14:33-0400 Diastolic blood pressure 82 mm[Hg] Leny Hsu MD Work Phone: [facility] 12-13-2022 14:33-0400 Heart rate 80 /min Leny Hsu MD Work Phone: [facility] 12-13-2022 14:33-0400 Respiratory rate 16 /min Leny Hsu MD Work Phone: [facility] 12-13-2022 14:33-0400 Systolic blood pressure 118 mm[Hg] Leny Hsu MD Work Phone: [facility] 11-06-2022 13:18-0400 Body height 167.6 cm Kirk Cast MD Work Phone: [facility] 11-06-2022 13:18-0400 Body temperature 98.2 [degF] Kirk Cast MD Work Phone: [facility] 11-06-2022 13:18-0400 Body weight 90.72 kg Kirk Cast MD Work Phone: [facility] 11-06-2022 13:18-0400 Diastolic blood pressure 90 mm[Hg] Kirk Cast MD Work Phone: [facility] 11-06-2022 13:18-0400 Heart rate 104 /min Kirk Cast MD Work Phone: [facility] 11-06-2022 13:18-0400 SaO2% (BldA) [Mass fraction] 97 % Kirk Cast MD Work Phone: [facility] 11-06-2022 13:18-0400 Systolic blood pressure 128 mm[Hg] Kirk Cast MD Work Phone: [facility] 10-14-2022 17:08-0400 Respiratory rate 16 /min [facility] 10-14-2022 15:11-0400 Body height 167.64 cm [facility] 10-14-2022 15:11-0400 Body mass index (BMI) [Ratio] 32.1 kg/m2 [facility] 10-14-2022 15:11-0400 Body temperature 97.6 [degF] [facility] 10-14-2022 15:11-0400 Body weight 90.12 kg [facility] 10-14-2022 15:11-0400 Diastolic blood pressure 97 mm[Hg] [facility] 10-14-2022 15:11-0400 Heart rate 86 /min [facility] 10-14-2022 15:11-0400 SaO2% (BldA) [Mass fraction] 97 % [facility] 10-14-2022 15:11-0400 Systolic blood pressure 132 mm[Hg] [facility] 08-30-2022 09:51-0500 Body weight 89.81 kg Leny Hsu MD Work Phone: [facility] 08-30-2022 09:51-0500 Diastolic blood pressure 78 mm[Hg] Leny Hsu MD Work Phone: [facility] 08-30-2022 09:51-0500 Heart rate 68 /min Leny Hsu MD Work Phone: [facility] 08-30-2022 09:51-0500 Respiratory rate 12 /min Leny Hsu MD Work Phone: [facility] 08-30-2022 09:51-0500 Systolic blood pressure 118 mm[Hg] Leny Hsu MD Work Phone: [facility] 08-15-2022 14:08-0500 Body height 163.2 cm Lydia Podlogar CARTOON ARTIST.MOTION STUDY ENGINEER Work Phone: [facility] 08-15-2022 14:08-0500 Body weight 89.27 kg Lydia Podlogar CARTOON ARTIST.MOTION STUDY ENGINEER Work Phone: [facility] 08-15-2022 14:08-0500 Diastolic blood pressure 78 mm[Hg] Lydia Podlogar CARTOON ARTIST.MOTION STUDY ENGINEER Work Phone: [facility] 08-15-2022 14:08-0500 Heart rate 93 /min Lydia Podlogar CARTOON ARTIST.MOTION STUDY ENGINEER Work Phone: [facility] 08-15-2022 14:08-0500 Respiratory rate 18 /min Lydia Podlogar CARTOON ARTIST.MOTION STUDY ENGINEER Work Phone: [facility] 08-15-2022 14:08-0500 SaO2% (BldA) [Mass fraction] 97 % Lydia Podlogar CARTOON ARTIST.MOTION STUDY ENGINEER Work Phone: [facility] 08-15-2022 14:08-0500 Systolic blood pressure 120 mm[Hg] Lydia Podlogar CARTOON ARTIST.MOTION STUDY ENGINEER Work Phone: [facility] 08-13-2022 15:14-0500 Body height 165.1 cm [facility] 08-13-2022 15:14-0500 Body mass index (BMI) [Ratio] 32.4 kg/m2 [facility] 08-13-2022 15:14-0500 Body temperature 97.6 [degF] [facility] 08-13-2022 15:14-0500 Body weight 88.45 kg [facility] 08-13-2022 15:14-0500 Diastolic blood pressure 80 mm[Hg] [facility] 08-13-2022 15:14-0500 Heart rate 110 /min [facility] 08-13-2022 15:14-0500 Respiratory rate 16 /min [facility] [facility] 08[facility]13-2022 15:14-0500 SaO2% (BldA) [Mass fraction] 98 % [facility] 08-13-2022 15:14-0500 Systolic blood pressure 121 mm[Hg] [facility] 04-27-2022 12:59-0400 Body height 167.6 cm Nicole Kalka PA-C Work Phone: [facility] 04-27-2022 12:59-0400 Body weight 88.09 kg Nicole Kalka PA-C Work Phone: [facility] 04-27-2022 12:59-0400 Diastolic blood pressure 76 mm[Hg] Nicole Kalka PA-C Work Phone: [facility] 04-27-2022 12:59-0400 Heart rate 102 /min Nicole Kalka PA-C Work Phone: [facility] 04-27-2022 12:59-0400 Systolic blood pressure 114 mm[Hg] Nicole Kalka PA-C Work Phone: [facility] 03-30-2022 13:14-0400 Body height 167.6 cm Nicole Kalka PA-C Work Phone: [facility] 03-30-2022 13:14-0400 Body weight 89.45 kg Nicole Kalka PA-C Work Phone: [facility] 03-30-2022 13:14-0400 Diastolic blood pressure 80 mm[Hg] Nicole Kalka PA-C Work Phone: [facility] 03-30-2022 13:14-0400 Heart rate 98 /min Nicole Kalka PA-C Work Phone: [facility] 03-30-2022 13:14-0400 Systolic blood pressure 116 mm[Hg] Nicole Kalka PA-C Work Phone: [facility] 03-01-2022 19:13-0400 Body height 167.64 cm [facility] Work Phone: 03-01-2022 19:13-0400 Body mass index (BMI) [Ratio] 33 kg/m2 [facility] Work Phone: 03-01-2022 19:13-0400 Body temperature 97.9 [degF] [facility] Work Phone: 03-01-2022 19:13-0400 Body weight 92.7 kg [facility] Work Phone: 03-01-2022 19:13-0400 Diastolic blood pressure 71 mm[Hg] [facility] Work Phone: 03-01-2022 19:13-0400 Heart rate 84 /min [facility] Work Phone: 03-01-2022 19:13-0400 Respiratory rate 14 /min [facility] Work Phone: 03-01-2022 19:13-0400 SaO2% (BldA) [Mass fraction] 99 % [facility] Work Phone: 03-01-2022 19:13-0400 Systolic blood pressure 132 mm[Hg] [facility] Work Phone: 01-03-2022 15:41-0400 Body temperature 98.8 [degF] Dani Pendlebury CARTOON ARTIST.MOTION STUDY ENGINEER Work Phone: [facility] 01-03-2022 15:41-0400 Body weight 86.36 kg Dani Burgos CARTOON ARTIST.MOTION STUDY ENGINEER Work Phone: [facility] 01-03-2022 15:41-0400 Diastolic blood pressure 78 mm[Hg] Dani Pendlebury CARTOON ARTIST.MOTION STUDY ENGINEER Work Phone: [facility] 01-03-2022 15:41-0400 Heart rate 98 /min Dani Pendlebury CARTOON ARTIST.MOTION STUDY ENGINEER Work Phone: [facility] 01-03-2022 15:41-0400 Respiratory rate 16 /min Dani Pendlebury CARTOON ARTIST.MOTION STUDY ENGINEER Work Phone: [facility] 01-03-2022 15:41-0400 SaO2% (BldA) [Mass fraction] 99 % Dani Pendlebury CARTOON ARTIST.MOTION STUDY ENGINEER Work Phone: [facility] 01-03-2022 15:41-0400 Systolic blood pressure 124 mm[Hg] Dani Burgos CARTOON ARTIST.MOTION STUDY ENGINEER Work Phone: [facility] 12-13-2021 14:07-0400 Body height 167.6 cm Kirk Cast MD Work Phone: [facility] 12-13-2021 14:07-0400 Body temperature 98.49 [degF] Kirk Cast MD Work Phone: [facility] 12-13-2021 14:07-0400 Body weight 85.91 kg Kirk Cast MD Work Phone: [facility] 12-13-2021 14:07-0400 Diastolic blood pressure 86 mm[Hg] Kirk Cast MD Work Phone: [facility] 12-13-2021 14:07-0400 Heart rate 75 /min Kirk Cast MD Work Phone: [facility] 12-13-2021 14:07-0400 SaO2% (BldA) [Mass fraction] 95 % Kirk Cast MD Work Phone: [facility] 12-13-2021 14:07-0400 Systolic blood pressure 130 mm[Hg] Kirk Cast MD Work Phone: [facility] 12-06-2021 13:34-0400 Body height 167.6 cm Kirk Cast MD Work Phone: [facility] 12-06-2021 13:34-0400 Body temperature 98.91 [degF] Kirk Cast MD Work Phone: [facility] 12-06-2021 13:34-0400 Body weight 85.28 kg Kirk Cast MD Work Phone: [facility] 12-06-2021 13:34-0400 Diastolic blood pressure 82 mm[Hg] Kirk Cast MD Work Phone: [facility] 12-06-2021 13:34-0400 Heart rate 99 /min Kirk Cast MD Work Phone: [facility] 12-06-2021 13:34-0400 Respiratory rate 16 /min Kirk Cast MD Work Phone: [facility] 12-06-2021 13:34-0400 SaO2% (BldA) [Mass fraction] 95 % Kirk Cast MD Work Phone: [facility] 12-06-2021 13:34-0400 Systolic blood pressure 110 mm[Hg] Kirk Cast MD Work Phone: [facility] 11-28-2021 10:21-0400 Diastolic blood pressure 61 mm[Hg] Kirk Cast MD Work Phone: [facility] 11-28-2021 10:21-0400 Heart rate 86 /min Kirk Cast MD Work Phone: [facility] 11-28-2021 10:21-0400 Respiratory rate 16 /min Kirk Cast MD Work Phone: [facility] 11-28-2021 10:21-0400 SaO2% (BldA) [Mass fraction] 100 % Kirk Cast MD Work Phone: [facility] 11-28-2021 10:21-0400 Systolic blood pressure 123 mm[Hg] Kirk Cast MD Work Phone: [facility] 11-28-2021 09:14-0400 Body temperature 97.7 [degF] Kirk Cast MD Work Phone: [facility] 11-02-2021 14:55-0400 Diastolic blood pressure 78 mm[Hg] Mi Nurse Work Phone: [facility] 11-02-2021 14:55-0400 Heart rate 82 /min Mi Nurse Work Phone: [facility] 11-02-2021 14:55-0400 Systolic blood pressure 116 mm[Hg] Mi Nurse Work Phone: [facility] Encounters Encounter Date Encounter Type Care Provider Facility Start: 03-02-2025 End: 03-02-2025 ambulatory LENY HSU Facility:[facility] Start: 03-02-2025 ambulatory LENY HSU Facility:[facility] Start: 03-02-2025 End: 03-02-2025 Patient encounter procedure Leny Hsu MD Work Phone: [facility] [place] Comment on above: Moderate episode of recurrent major depressive disorder (HCC) (Primary Dx); CRISTINO (generalized anxiety disorder); Migraine without aura and without status migrainosus, not intractable; Acquired hypothyroidism Start: 02-05-2025 End: 02-05-2025 ambulatory LYDIA PODLOGAR Facility:[facility] Start: 02-05-2025 End: 02-05-2025 Patient encounter procedure Lydia Hendrickslogcarmel ANANDMOTION STUDY ENGINEER Work Phone: [facility] [place] Comment on above: Acute pyelonephritis Start: 02-01-2025 End: 02-01-2025 Emergency department patient visit Dr. Isaac Hsu MD Work Phone: -Emergency Department Work Phone: Start: 01-08-2025 End: 01-08-2025 Refill Leny Hsu MD Work Phone: [facility] [place] Comment on above: Refill Request Start: 12-12-2024 End: 12-13-2024 Refill Leny Hsu MD Work Phone: [facility] [place] Comment on above: Refill Request Start: 12-09-2024 End: 12-09-2024 Refill Leny Hsu MD Work Phone: [facility] [place] Comment on above: Refill Request Start: 11-14-2024 End: 11-19-2024 Follow-up encounter Katty Nava APRN.MOTION STUDY ENGINEER Work Phone: General Surgery Comment on above: Results Start: 11-11-2024 End: 01-11-2025 Refill Leny Hsu MD Work Phone: [facility] Comment on above: Refill Request Results Start: 11-10-2024 End: 11-10-2024 Patient encounter status Ema Abdullahi BALDOMERO.MOTION STUDY ENGINEER Work Phone: [facility] Start: 11-10-2024 End: 11-10-2024 ambulatory EMA ABDULLAHI Facility:[facility] Start: 11-10-2024 Encounter for gynecological examination (general) (routine) without abnormal findings EMA ABDULLAHI [facility] Start: 11-10-2024 End: 11-10-2024 Patient encounter procedure Ella James BALDOMERO.MOTION STUDY ENGINEER Work Phone: [facility] Comment on above: Vaginal burning [...] Start: 11-10-2024 End: 11-10-2024 ambulatory LENY HSU Facility:[facility] Start: 10-28-2024 End: 10-28-2024 Patient encounter procedure Leny Hsu MD Work Phone: [facility] [place] Comment on above: Grief (Primary Dx); Moderate episode of recurrent major depressive disorder (HCC); CRISTINO (generalized anxiety disorder) Start: 10-28-2024 End: 10-28-2024 ambulatory LENY HSU Facility:[facility] Start: 10-27-2024 End: 10-27-2024 Telephone encounter Leny Hsu MD Work Phone: [facility] [place] Comment on above: Opened In Error Patient Question Start: 10-24-2024 ambulatory KIRK CAST Facili ty:[facility] Start: 10-24-2024 End: 10-24-2024 Subsequent hospital visit by physician Kirk Cast MD Work Phone: Ambulatory Surgery Comment on above: Hiatal hernia [K44.9 ] Start: 10-22-2024 End: 10-22-2024 Telephone encounter Elmira RASMUSSEN Navigation Start: 10-16-2024 End: 11-14-2024 Telephone encounter Leny Hsu MD Work Phone: [facility] [place] Comment on above: Insurance Authorizat ion Refill Request Start: 09-29-2024 End: 09-29-2024 ambulatory KIRK CAST Facility:[facility] Start: 09-29-2024 End: 09-29-2024 Patient encounter procedure Kirk Cast MD Work Phone: General Surgery Comment on above: Hiatal hernia (Prima ry Dx); Gastroesophageal reflux disease, unspecified whether esophagitis present Start: 09-24-2024 End: 09-24-2024 ambulatory JORDIN DICKERSON Facility:[facility] Start: 09-24-2024 End: 09-24-2024 Subsequent hospital visit by physician [facility] Work Phone: Radiology Comment on above: Abnormal finding on breast imaging [R92.8] Start: 09-17-2024 End: 09-17-2024 Refill Leny Hsu MD Work Phone: [facility] [place] Comment on above: Refill Request Start: 09-03-2024 End: 09-03-2024 Follow-up encounter Leny Hsu MD Work Phone: [facility] [place] Start: 09-02-2024 End: 10-03-2024 ambulatory Leny Hsu MD Work Phone: [facility] [place] Start: 09-02-2024 End: 09-02-2024 Patient encounter procedure Leny Hsu MD Work Phone: [facility] [place] Comment on above: Essential hypertensi on (Primary [...] Refill Leny Hsu MD Work Phone: [facility] [place] Comment on above: Refill Request Start: 08-20-2024 End: 08-27-2024 Refill Kristy Asencio PA-C Work Phone: Neurology Comment on above: Refill Request Start: 08-08-2024 End: 08-11-2024 Telephone encounter Leny Hsu MD Work Phone: [facility] [place] Comment on above: Results Start: 08-07-2024 End: 08-08-2024 Telephone encounter Leny Hsu MD Work Phone: [facility] [place] Comment on above: Results Start: 08-06-2024 End: 08-06-2024 Subsequent hospital visit by physician Xr [facility] [place] Work Phone: Radiology Comment on above: Suprapubic pain, acu te [R10.2] Start: 08-06-2024 End: 08-06-2024 ambulatory LENY HSU Facility:[facility] Start: 08-06-2024 End: 08-06-2024 Patient encounter procedure Leny Hsu MD Work Phone: [facility] Comment on above: Suprapubic pain, acu te (Primary Dx); Urinary frequency; Iron deficiency; Chronic constipation Start: 08-06-2024 End: 08-06-2024 ambulatory LENY HSU Facility:[facility] Start: 07-23-2024 End: 07-23-2024 Refill Leny Hsu MD Work Phone: [facility] Comment on above: Refill Request Start: 06-25-2024 End: 06-25-2024 Refill Leny Hsu MD Work Phone: [facility] [place] Comment on above: Refill Request Start: 05-27-2024 End: 05-28-2024 Refill Leny Hsu MD Work Phone: [facility] Comment on above: Refill Request Start: 05-13-2024 End: 05-13-2024 Patient encounter procedure Kristy Asencio PA-C Work Phone: Neurology Comment on above: Migraine without aur a and without status migrainosus, not intractable (Primary Dx); Syncope and collapse; Orthostatic lightheadedness Start: 05-13-2024 End: 05-13-2024 ambulatory KRISTY ASENCIO Facility:[facility] Start: 05-01-2024 End: 05-01-2024 Refill Leny Hsu MD Work Phone: [facility] [place] Comment on above: Refill Request Start: 04-24-2024 End: 04-24-2024 ambulatory KEV MANNING Facility:[facility] Start: 04-24-2024 End: 04-24-2024 Patient encounter procedure Kev Sawyer Nigel OD Work Phone: Ophthalmology Comment on above: Migraine without aur a and without status migrainosus, not intractable (Primary Dx); Presbyopia; Optic cupping of both eyes Start: 04-16-2024 End: 04-16-2024 ambulatory Bradley Basilio MA [facility] Start: 04-16-2024 End: 04-16-2024 Patient encounter procedure Bradley Basilio [facility] Comment on above: Population Health Na vigation Outreach (Jose B[facility]t [place] [facility]) Start: 03-11-2024 End: 03-11-2024 Refill Nicole Solano PA-C Work Phone: [facility] [place] Comment on above: Refill Request Start: 02-29-2024 End: 02-29-2024 Refill Leny Hsu MD Work Phone: [facility] [place] Comment on above: Refill Request Start: 02-28-2024 End: 02-29-2024 Telephone encounter Leny Hsu MD Work Phone: [facility] [place] Comment on above: Results Start: 02-19-2024 End: 02-19-2024 Patient encounter procedure Omero Rollins Work Phone: Podiatry Comment on above: Callus of foot (Prim navya Dx) Start: 02-05-2024 Telephone encounter Isaac Hsu MD Work Phone: [facility] Comment on above: Results Refill Request Start: 02-04-2024 End: 02-04-2024 Patient encounter procedure Leny Hsu MD Work Phone: [facility] Comment on above: Left tennis elbow (P rimary Dx) Start: 01-31-2024 Refill [facility]-C [facility] Comment on above: Refill Request Start: 01-31-2024 Refill Leny Hsu MD Work Phone: [facility] Comment on above: Refill Request Start: 01-24-2024 Telephone encounter Isaac Hsu MD Work Phone: [facility] Comment on above: Results (Echo and st ress test) Start: 01-14-2024 End: 01-14-2024 Patient encounter procedure Leny Hsu MD Work Phone: [facility] [place] Comment on above: Annual physical exam (Primary Dx); Essential hypertension; Acquired hypothyroidism; Migraine without aura and without status migrainosus, not intractable; Enlarged thyroid; Anxiety with depression; Class 1 obesity due to excess calories with body mass index (BMI) of 34.0 to 34.9 in adult, unspecified whether serious comorbidity present Start: 01-02-2024 End: 01-02-2024 Patient encounter procedure Leny Hsu MD Work Phone: [facility] Comment on above: Other chest pain (Pr imary Dx); Acute serous otitis media of left ear, recurrence not specified Start: 12-19-2023 End: 12-19-2023 Patient encounter procedure Leny Hsu MD Work Phone: [facility] Comment on above: Plantar wart of both feet (Primary Dx); Tinea corporis; Moderate episode of recurrent major depressive disorder (HCC) Start: 12-10-2023 Refill Nicole Solano PA-C Work Phone: [facility] Comment on above: Refill Request Start: 11-09-2023 Refill Nicoledior Solano PA-C Work Phone: [facility] Comment on above: Refill Request Start: 11-08-2023 Refill Leny Hsu MD Work Phone: [facility] [place] Comment on above: Refill Request Start: 10-12-2023 Refill Nicole Russ PA-C Work Phone: [facility] Comment on above: Refill Request Start: 10-11-2023 Refill Kristy Chaparro jesus PA-C Work Phone: Neurology Comment on above: Refill Request Start: 10-01-2023 End: 10-01-2023 Patient encounter procedure eLny Hsu MD Work Phone: [facility] [place] Comment on above: Tinea corporis (Prim navya [...] 09-12-2023 Refill Leny Hsu MD Work Phone: [facility] [place] Comment on above: Refill Request; Refi ll Request Start: 09-05-2023 End: 09-05-2023 Subsequent hospital visit by physician Stereo/Ultrasound Biopsy [facility] Comment on above: Abnormal mammogram [ R92.8] Arrived Start: 08-27-2023 Refill Leny Hsu MD Work Phone: [facility] Comment on above: Refill Request Start: 08-20-2023 Refill Leny Hsu MD Work Phone: [facility] [place] Comment on above: Refill Request Start: 08-17-2023 ambulatory oHa navarrete MD Work Phone: [facility] Comment on above: Breast Problem Start: 08-17-2023 Patient encounter procedure Hoa Tolentino MD Work Phone: [facility] Start: 08-13-2023 End: 08-13-2023 Patient encounter procedure Kirk Cast MD Work Phone: General Surgery Comment on above: Abnormal mammogram ( Primary Dx) Start: 08-13-2023 End: 05-13-2024 Telephone encounter Kirk Cast MD Work Phone: General Surgery Comment on above: Appointment Start: 06-15-2023 End: 06-15-2023 Patient encounter procedure Kev Manning OD Work [...] Blurred vision, bilateral Start: 05-29-2023 Refill Nicole PRICEC Work Phone: [facility] [place] Comment on above: Refill Request Start: 05-25-2023 Refill Leny Hsu MD Work Phone: [facility] [place] Comment on above: Refill Request Start: 05-14-2023 End: 05-14-2023 Patient encounter procedure Leny Hsu MD Work Phone: [facility] [place] Comment on above: Migraine without aur a and without status migrainosus, not intractable (Primary Dx) Start: 05-09-2023 Telephone encounter Nicole Stevenson mohan DENT Work Phone: [facility] Comment on above: Results Start: 05-08-2023 ambulatory [facility]ENY HSU [facility] Start: 05-08-2023 End: 05-08-2023 Subsequent hospital visit by physician [facility] Comment on above: Canceled (Pt cx: Res cheduled) Esophageal dysphagia [R13.19] Start: 05-01-2023 Refill Leny Hsu MD Work Phone: [facility] [place] Comment on above: Refill Request Start: 04-18-2023 Telephone encounter Nicole Graham preston PA-C Work Phone: [facility] Comment on above: fibroscan Start: 04-18-2023 End: 04-18-2023 Patient encounter procedure Nicole Solano PA-C Work Phone: [facility] Comment on above: Hiatal hernia with G ERD without esophagitis (Primary Dx); Esophageal dysphagia; Irritable bowel syndrome with both constipation and diarrhea; Fatty metamorphosis of liver Start: 03-29-2023 Refill Leny Hsu MD Work Phone: [facility] Comment on above: Refill Request Start: 03-22-2023 Telephone encounter Terry Young PA-C Work Phone: [facility] Comment on above: Results Start: 03-16-2023 End: 03-16-2023 Patient encounter procedure Leny Hsu MD Work Phone: [facility] Comment on above: Claudication (HCC) ( Primary Dx); Migraine without aura and without status migrainosus, not intractable; Essential hypertension; Acquired hypothyroidism; Anxiety with depression; Encounter for immunization Start: 03-02-2023 Refill Leny Hsu MD Work Phone: [facility] Comment on above: Refill Request Start: 02-06-2023 Refill Leny Hsu MD Work Phone: [facility] [place] Comment on above: Refill Request Start: 01-19-2023 Telephone encounter Nicole Stevenson mohan DENT Work Phone: [facility] [place] Comment on above: Appointment Start: 01-19-2023 End: 01-19-2023 Patient encounter procedure Leny Hsu MD Work Phone: [facility] [place] Comment on above: Plantar wart (Primar y Dx); S/P cryotherapy of skin lesion Start: 01-15-2023 End: 01-15-2023 Patient encounter procedure Lydia Gonzalez CARTOON ARTIST.MOTION STUDY ENGINEER Work Phone: [facility] Comment on above: Bilateral swelling o f feet (Primary Dx); Plantar wart Start: 01-12-2023 End: 01-12-2023 Patient encounter procedure Jeanette Ibarra PA-C Work Phone: [facility] Comment on above: Peripheral edema (Pr imary Dx) Start: 01-05-2023 Refill Leny Hsu MD Work Phone: [facility] Comment on above: Refill Request Start: 12-13-2022 End: 12-13-2022 Patient encounter procedure Leny Hsu MD Work Phone: [facility] [place] Comment on above: Syncope and collapse (Primary Dx); Elbow pain, right Start: 12-12-2022 Refill Leny Hsu MD Work Phone: [facility] Comment on above: Refill Request Start: 11-06-2022 End: 11-06-2022 Patient encounter procedure Kirk Cast MD Work Phone: General Surgery Comment on above: Abnormal mammogram ( Primary Dx) Start: 10-19-2022 Telephone encounter Bradley isaac APRN.MOTION STUDY ENGINEER Work Phone: [facility] Comment on above: Results Start: 10-18-2022 End: 10-18-2022 Subsequent hospital visit by physician Diagnostic Mammo [facility] Comment on above: Inconclusive mammogr am [R92.2] Start: 10-14-2022 End: 10-14-2022 [facility] Start: 09-22-2022 Refill Leny Hsu MD Work Phone: [facility] Comment on above: Refill Request Start: 09-04-2022 Documentation procedure Mammog alessia Coordinator [facility] Start: 09-04-2022 Letter encounter Mammography Coordinator [facility] Department Start: 09-01-2022 Telephone encounter Bradley isaac APRN.MOTION STUDY ENGINEER Work Phone: [facility] Comment on above: Results Start: 08-30-2022 End: 08-30-2022 Subsequent hospital visit by physician Xr [facility] Work Phone: Radiology Comment on above: Sprain of ligament o f right ankle, subsequent encounter [S93.401D] Start: 08-30-2022 End: 08-30-2022 Patient encounter procedure Leny Hsu MD Work Phone: [facility] Comment on above: Sprain of ligament o f right ankle, subsequent encounter (Primary Dx) Start: 08-16-2022 Telephone encounter Lydia mayen APRN.MOTION STUDY ENGINEER Work Phone: [facility] Comment on above: Results Start: 08-15-2022 End: 08-15-2022 Patient encounter procedure Lydia Gonzalez APRN.MOTION STUDY ENGINEER Work Phone: [facility] Comment on above: Annual physical exam (Primary Dx); Migraine without aura and without status migrainosus, not intractable; Thrombocytosis; Acquired hypothyroidism; Encounter for screening mammogram for breast cancer; Encounter for immunization; Sprain of ligament of right ankle, subsequent encounter; Moderate episode of recurrent major depressive disorder (HCC) Start: 08-15-2022 Telephone encounter Isaac Hsu MD Work Phone: [facility] Comment on above: Patient Question Start: 08-13-2022 End: 08-13-2022 [facility] Start: 05-23-2022 Refill Leny Hsu MD Work Phone: [facility] Comment on above: Refill Request Start: 05-11-2022 End: 05-11-2022 Subsequent hospital visit by physician Ct Prep [facility] Comment on above: Hiatal hernia with G ERD without esophagitis [K44.9, K21.9] Start: 05-03-2022 Refill Leny Hsu MD Work Phone: [facility] Comment on above: Refill Request Start: 04-27-2022 End: 04-27-2022 Patient encounter procedure Nicole Solano PA-C Work Phone: [facility] Comment on above: Hiatal hernia with G ERD without esophagitis (Primary Dx); Bilateral upper abdominal pain; Irritable bowel syndrome with both constipation and diarrhea; Abdominal distension (gaseous); Nausea Start: 03-30-2022 End: 03-30-2022 Patient encounter procedure Nicole Solano PA-C Work Phone: [facility] Comment on above: Hiatal hernia with G ERD without esophagitis (Primary Dx); Bilateral upper abdominal pain; Irritable bowel syndrome with both constipation and diarrhea Start: 03-14-2022 Refill Leny Hsu MD Work Phone: [facility] Comment on above: Refill Request Start: 03-07-2022 Refill Francisco J Pino MD Work Phone: Orthopaedics Comment on above: Refill Request Start: 03-01-2022 End: 03-01-2022 [facility] Start: 01-18-2022 Refill Leny Hsu MD Work Phone: [facility] Comment on above: Refill Request Start: 01-12-2022 End: 01-12-2022 Patient encounter procedure Francisco J Pino MD Work Phone: Orthopaedics Comment on above: 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); Acute pain of right shoulder; Impingement syndrome of right shoulder Start: 01-10-2022 Telephone encounter Isaac Hsu MD Work Phone: [facility] Comment on above: Medication Request Start: 01-04-2022 Telephone encounter Isaac Hsu MD Work Phone: [facility] Comment on above: Patient Update Start: 01-03-2022 End: 01-03-2022 Subsequent hospital visit by physician [facility] [place] Work Phone: Radiology Comment on above: Right wrist pain [M2 5.531] Start: 01-03-2022 End: 01-03-2022 Patient encounter procedure Dani Burgos APRN.MOTION STUDY ENGINEER Work Phone: [facility] Comment on above: Right wrist pain (Pr imary Dx) Start: 12-21-2021 Telephone encounter Isaac Hsu MD Work Phone: [facility] Comment on above: results/consult requ est Start: 12-21-2021 End: 12-21-2021 Subsequent hospital visit by physician [facility] (I-Stat/1.5t) Work Phone: Radiology Comment on above: Acute pain of right shoulder [M25.511] Start: 12-20-2021 End: 12-20-2021 Subsequent hospital visit by physician [facility] (I-Stat/1.5t) Work Phone: Radiology Comment on above: Acute pain of right shoulder [M25.511] Start: 12-13-2021 End: 12-13-2021 Patient encounter procedure Kirk Cast MD Work Phone: General Surgery Comment on above: Epigastric pain (Tania zoey Dx); Nausea Start: 12-09-2021 End: 12-09-2021 Subsequent hospital visit by physician [facility] Work Phone: Nuclear Medicine Comment on above: Nausea [R11.0] Start: 12-06-2021 End: 12-06-2021 Patient encounter procedure Kirk Cast MD Work Phone: General Surgery Comment on above: Epigastric pain (Tania zoey Dx); Nausea Start: 12-02-2021 Telephone encounter Lydia mayen APRN.MOTION STUDY ENGINEER Work Phone: [facility] Comment on above: Patient Update; FYI- No Action Needed Patient Question (st omach pain) Start: 12-01-2021 End: 12-01-[address] [facility]-Physical Therapy Start: 11-28-2021 End: 11-28-2021 Subsequent hospital visit by physician Kirk Cast MD Work Phone: Ambulatory Surgery Comment on above: Screening for colon cancer [Z12.11] Start: 11-02-2021 End: 11-02-2021 Nursing evaluation of patient and report Mi Nurse Work Phone: [facility] Comment on above: Essential hypertensi on with goal blood pressure less than 140/90 (Primary Dx) Start: 11-02-2021 Telephone encounter Isaac Hsu MD Work Phone: [facility] Comment on above: Blood Pressure Check Start: 10-14-2021 Telephone encounter Lydia mayen APRN.MOTION STUDY ENGINEER Work Phone: [facility] Comment on above: Referral Information Start: 09-19-2021 End: 09-19-2021 [facility] Comment on above: Acute pain of right shoulder [M25.511] Start: 08-23-2021 End: 08-23-2021 Refill Leny Hsu MD Work Phone: [facility] Comment on above: Refill Request; Refi ll Request Right wrist injury, initial encounter [S69.91XA] Start: 03-31-2021 Telephone encounter Isaac Hsu MD Work Phone: [facility] Comment on above: Opened In Error Start: 07-13-2020 End: 07-13-2020 Emergency department patient visit GREGORY GALINDO [facility] Start: 03-11-2017 End: 03-12-2017 Emergency department patient visit [facility] Wheeler Facility:[place] Procedures Date Procedure Procedure Detail Performing Clinician Start: 02-01-[address] Hari Hsu MD Work Phone: Start: 02-01-2025 Urnls dip stick/tablet reagent auto microscopy Dr. Isaac Hsu MD Work Phone: Start: 02-01-2025 CT of abdomen and pelvis without contrast Dr. Isaac Hsu MD Work Phone: Start: 11-10-2024 Urnls dip stick/tablet rgnt auto w/o microscopy Ella Riley APRN.MOTION STUDY ENGINEER Work Phone: Start: 10-24-2024 Esophagogastroduodenoscopy transoral diagnostic [...] real time with image limited Bradley Mcmullen CARTOON ARTIST.MOTION STUDY ENGINEER Work Phone: Start: 10-18-2022 Digital breast tomosynthesis unilateral Venusakhil Zaidi PA-C Work Phone: Start: 09-01-2022 Mammography Mammography Coordinator Start: 08-30-2022 Radex ankle complete minimum 3 views Leny sHu MD Work Phone: Start: 08-15-2022 INFLUENZA VACCINE QUADRIVALENT 6 MO - 64 YRS IM Lydia Gonzalez CARTOON ARTIST.MOTION STUDY ENGINEER Work Phone: Start: 05-11-2022 Ct abdomen & pelvis w/contrast material Niocle Solano PA-C Work Phone: Start: 03-01-2022 Plain X-ray of shoulder Start: 01-12-2022 Arthrocentesis aspir&/inj major jt/bursa w/o us Francisco J Pino MD Work Phone: Start: 01-03-2022 Radex wrist complete minimum 3 views Dani Burgos CARTOON ARTIST.MOTION STUDY ENGINEER Work Phone: Start: 12-21-2021 Mri any jt upper extremity w/o contrast matrl Leny Hsu MD Work Phone: Start: 12-09-2021 Hepatobil syst imag inc gb w/pharma intervenj Kirk Cast MD Work Phone: Start: 11-28-2021 Colon ca scrn not hi rsk ind Lydia duenas CARTOON ARTIST.MOTION STUDY ENGINEER Work Phone: Start: 11-28-2021 Colonoscopy Kirk Cast MD Work Phone: Start: 09-19-2021 Radex spine cervical 4 or 5 views Lydia Gonzalez CARTOON ARTIST.BHARATHI Work Phone: Start: 08-23-2021 Radex wrist complete minimum 3 views Tri Pool CARTOON ARTIST.BHARATHI Work Phone: Start: 08-09-2021 Mammography Lydia Gonzalez CARTOON ARTIST.MOTION STUDY ENGINEER Work Phone: Start: 09-16-2020 Lipid 1996 panel - Serum or Plasma NA Ba rton PA-C Work Phone: Plan of Treatment Date Care Activity Detail Author Start: 11-29-2031 Colonoscopy COLONOSCOPY [facility] Start: 11-29-2031 COLORECTAL CANCER SCREENING COLORECTAL CANCER SCREENING [facility] Start: 11-29-2031 Screening for malignant neoplasm of colon [facility] Start: 10-01-2029 Urine microalbumin profile [facility] Start: 02-03-2029 Lipid panel Lipid Screening [facility] Start: 08-06-2027 Diabetes Screening Diabetes Screening [facility] Start: 02-03-2027 Diabetes Screening Diabetes Screening [facility] Start: 07-12-2026 Diabetes Screening Diabetes Screening [facility] Start: 06-05-2026 Diabetes Screening Diabetes Screening [facility] Start: 03-02-2026 Annual PCP Team Chronic Disease Visit Annual PCP Team Chronic Disease Visit [facility] Start: 02-05-2026 Annual PCP Team Chronic Disease Visit Annual PCP Team Chronic Disease Visit [facility] Start: 12-13-2025 DIABETES SCREEN DIABETES SCREEN [facility] Start: 12-13-2025 Diabetes Screening Diabetes Screening [facility] Start: 11-10-2025 BP Controlled (<130/80) BP Controlled (<130/80) [facility] Start: 11-10-2025 Screening for malignant neoplasm of cervix Cervical Cancer Screening [facility] Start: 11-10-2025 End: 11-10-2025 Patient encounter procedure 11/10/2025 11:30 AM EDT Office Visit OB/Gynecology [address] [place] [address] Ema Abdullahi CARTOON ARTIST.MOTION STUDY ENGINEER [address] [place] [address] Annual OB/Gynecology Comment on above: Annual Start: 10-28-2025 Annual PCP Team Chronic Disease Visit Annual PCP Team Chronic Disease Visit [facility] Start: 10-28-2025 BP Controlled (<130/80) BP Controlled (<130/80) [facility] Start: 09-24-2025 Screening for malignant neoplasm of breast Mammogram Screening [facility] Start: 09-16-2025 Lipid 1996 panel - Serum or Plasma Lipid Screening [facility] Start: 09-16-2025 Lipid panel Lipid Screening [facility] Start: 09-16-2025 LIPID SCREEN LIPID SCREEN [facility] Start: 09-03-2025 End: 09-03-2025 Patient encounter procedure 09/03/2025 11:30 AM EST Appointment Mammogram [address] [place] [address] : Encounter for gynecological examination (general) (routine) without abnormal findings [Z01.419]; Encounter for screening mammogram for breast cancer [Z12.31] Mammogram Comment on above: : Encounter for gynecological examinatio n (general) (routine) without abnormal findings [Z01.419]; Encounter for screening mammogram for breast cancer [Z12.31] Start: 09-02-2025 Annual PCP Team Chronic Disease Visit Annual PCP Team Chronic Disease Visit [facility] Start: 09-02-2025 Covid-19 Vaccine ( season) Covid-19 Vaccine ( season) [facility] Comment on above: Postponed from 03/09/2024 (Declined at t his time) Start: 08-06-2025 Annual PCP Team Chronic Disease Visit Annual PCP Team Chronic Disease Visit [facility] Start: 08-06-2025 BP Controlled (<130/80) BP Controlled (<130/80) [facility] Start: 07-28-2025 HPV TESTING HPV TESTING [facility] Start: 07-28-2025 PAP TESTING PAP TESTING [facility] Start: 07-28-2025 Screening for malignant neoplasm of cervix [facility] Start: 05-13-2025 End: 12-10-2025 MG Breast - left Diagnostic for implant PARTH DIAGNOSTIC LEFT Radiology Routine Category 3 mammography result with short follow-up interval suggested for probably benign finding Expected: 05/13/2025, Expires: 12/10/2025 [facility] Comment on above: Expected: 05/13/2025, Expires: Start: 05-13-2025 End: 12-10-2025 US Breast - left limited US BREAST LTD LEFT Radiology Routine Category 3 mammography result with short follow-up interval suggested for probably benign finding Expected: 05/13/2025, Expires: 12/10/2025 [facility] Comment on above: Expected: 05/13/2025, Expires: Start: 05-13-2025 End: 05-13-2025 Patient encounter procedure Mammogram Comment on above: : Category 3 mammography result with nayan rt follow-up interval suggested for probably benign finding [R92.8] Mammo needs canceled closer to appt. unless developes new issue, 6 month fu US only per Radiologist read, Lt 6 month fu: Category 3 mammography result with short follow-up interval suggested for probably benign finding [R92.8] Start: 04-24-2025 End: 04-24-2025 Patient encounter procedure 04/24/2025 1:45 PM EDT Office Visit [facility] Ophthalmology [address] [place] [address] Kev Manning, OD [address] [place] [address] 1 year adult eye exam Ophthalmology Comment on above: 1 year adult eye exam Start: 03-31-2025 DIABETES SCREEN DIABETES SCREEN [facility] Start: 03-30-2025 End: 03-30-2025 Patient encounter procedure 03/30/2025 1:00 PM EDT Office Visit [facility] [place] [address] [place] [address] Leny Hsu MD [address] [place] [address] 4 week follow up. Anxiety/Depression, migraines [facility] [place] Comment on above: 4 week follow up. Anxiety/Depression, mi graines Start: 03-09-2025 Influenza vaccination Influenza Vaccine (#1) [facility] Start: 03-02-2025 End: 06-01-2025 25-hydroxyvitamin D3 [Mass/volume] in Serum or Plasma [facility] Comment on above: Expected: 03/02/2025, Expires: Start: 03-02-2025 End: 06-01-2025 Cobalamin (Vitamin B12) [Mass/volume] in Serum or Plasma [facility] Comment on above: Expected: 03/02/2025, Expires: Start: 03-02-2025 End: 06-01-2025 Comprehensive metabolic 2000 panel - Serum or Plasma [facility] Comment on above: Expected: 03/02/2025, Expires: Start: 03-02-2025 End: 06-01-2025 Thyrotropin [Units/volume] in Serum or Plasma [facility] Work Phone: Comment on above: Expected: 03/02/2025, Expires: Start: 03-02-2025 End: 03-02-2025 Patient encounter procedure 03/02/2025 1:00 PM EDT Office Visit [facility] [place] [address] [place], [place] [id number] Leny Hsu MD [address] [place] [id number] 6 month follow up [facility] [place] Comment on above: 6 month follow up Start: 02-03-2025 Annual PCP Team Chronic Disease Visit Annual PCP Team Chronic Disease Visit [facility] Start: 02-03-2025 BP Controlled (<130/80) BP Controlled (<130/80) [facility] Start: 02-01-2025 End: 02-01-2025 [facility] Start: 01-13-2025 Annual PCP Team Chronic Disease Visit Annual PCP Team Chronic Disease Visit [facility] Start: 01-13-2025 Covid-19 Vaccine () Covid-19 Vaccine () [facility] Comment on above: Postponed from 03/09/2023 (Declined at t his time) Start: 01-13-2025 Hepatitis B Vaccine (1 of 3 - 19+ 3-dose series) Hepatitis B Vaccine (1 of 3 - 19+ 3-dose series) [facility] Comment on above: Postponed from 1995 (Declined at t his time) Start: 01-01-2025 Annual PCP Team Chronic Disease Visit Annual PCP Team Chronic Disease Visit [facility] Start: 12-22-2024 End: 12-22-2024 Patient encounter procedure 12/22/2024 1:00 PM EDT Office Visit General Surgery [address] [place], [place] [address] Katty Nava APRN.MOTION STUDY ENGINEER [address] [place], [place] [phone] follow up General Surgery Comment on above: follow up Start: 12-18-2024 Annual PCP Team Chronic Disease Visit Annual PCP Team Chronic Disease Visit [facility] Start: 12-18-2024 BP Controlled (<130/80) BP Controlled (<130/80) [facility] Start: 11-11-2024 End: 11-11-2024 Patient encounter procedure Neurology Comment on above: follow up 6 months Migraines, Syncope- KRIS 05/13/24 cont. Topiramate, take Amerge Start: 11-05-2024 End: 11-05-2024 Patient encounter procedure 11/05/2024 2:30 PM EDT Office Visit General Surgery [address] [place], [place] [phone] Katty Nava APRN.MOTION STUDY ENGINEER [address] [place] [address] 10-24 EGD follow up General Surgery Comment on above: 10-24 EGD follow up Start: 10-24-2024 End: 10-24-2024 Patient encounter procedure 10/24/2024 2:45 PM EDT Appointment Ambulatory Surgery [address] [place], [place] [phone] Kirk Cast MD [address] [place], [place] [phone] 11 Arrival time do not change do [...] Appointment Ambulatory Surgery [address] [place] [phone] Kirk Cast MD [address] [place] [id number] 11 Arrival time do not change do [...] Visit Annual PCP Team Chronic Disease Visit [facility] Start: 09-30-2024 BP Controlled (<130/80) BP Controlled (<130/80) [facility] Start: 09-29-2024 End: 09-29-2024 Patient encounter procedure 09/29/2024 1:00 PM EDT Office Visit General Surgery [address] [place] [phone] Kirk Cast MD [address] [place] [phone] Rescheduled July appt for 6 month f/u- [...] 09-19-2024 BP Controlled (<130/80) BP Controlled (<130/80) [facility] Start: 09-18-2024 BP Controlled (<130/80) BP Controlled (<130/80) [facility] Start: 09-02-2024 End: 12-02-2024 Thyrotropin [Units/volume] in Serum or Plasma [facility] Work Phone: Comment on above: Expected: 09/02/2024, Expires: Start: 09-02-2024 End: 09-02-2024 Patient encounter procedure 09/02/2024 1:00 PM EST Office Visit [facility] [place] [address] [place] [address] Leny Hsu MD [address] [place] [address] routine follow up [facility] [place] Comment on above: routine follow up Start: 08-19-2024 End: 08-19-2024 Patient encounter procedure 08/19/2024 11:40 AM EST Office Visit [facility] [place] [address] [place] [address] Leny Hsu MD [address] [place] [address] routine follow up [facility] [place] Comment on above: routine follow up Start: 08-06-2024 End: 08-06-2024 Patient encounter procedure 08/06/2024 10:40 AM EST Office Visit [facility] [place] [address] [place] [address] Leny Hsu MD [address] [place] [address] 6 month follow up [facility] [place] Comment on above: 6 month follow up Start: 07-28-2024 End: 07-28-2024 Patient encounter procedure General Surgery Comment on above: 6 month f/u (reschedule from 03/2024)- re view L mamm diag and US breast Start: 07-25-2024 Screening for malignant neoplasm of breast Mammogram Screening [facility] Start: 07-12-2024 Annual PCP Team Chronic Disease Visit Annual PCP Team Chronic Disease Visit [facility] Start: 07-09-2024 Medicare [facility] Annual Wellness Visit Medicare Advantage Annual Wellness Visit [facility] Start: 06-16-2024 End: 06-16-2024 Patient encounter procedure 06/16/2024 1:00 PM EST Office Visit [facility] Op[facility]mology [address] [place], [place] [phone] Kev Manning, OD [address] [place] [address] 1 year follow up -Migraine without aura and without status migrainosus, not intractable [G43.009] Ophthalmology Comment on above: 1 year follow up -Migraine without aura and without status migrainosus, not intractable [G43.009] Start: 06-05-2024 BP Controlled (<130/80) BP Controlled (<130/80) [facility] Start: 05-21-2024 End: 05-21-2024 Patient encounter procedure 05/21/2024 1:00 PM EST Office Visit General Surgery [address] [place] [id number] Jordin Dickerson MD [address] [phone] 6 MTH F/U BREAST General Surgery Comment on above: 6 MTH F/U BREAST Start: 05-14-2024 Annual PCP Team Chronic Disease Visit Annual PCP Team Chronic Disease Visit [facility] Start: 05-14-2024 BP Controlled (<130/80) BP Controlled (<130/80) [facility] Start: 05-13-2024 End: 05-13-2024 Patient encounter procedure 05/13/2024 11:00 AM EST Office Visit Neurology [address] [place] [address] Kristy Asencio PA-C [address] [place] [address] 4 month follow up Neurology Comment on above: 4 month follow up Start: 04-24-2024 End: 04-24-2024 Patient encounter procedure 04/24/2024 8:00 AM EDT Office Visit [facility] Ophthalmology [address] [place] [address] Kev Manning, OD [address] [place] [address] 1 year follow up -Migraine without aura and without status migrainosus, not intractable [G43.009] Ophthalmology Comment on above: 1 year follow up -Migraine without aura and without status migrainosus, not intractable [G43.009] Start: 04-18-2024 BP Controlled (<130/80) BP Controlled (<130/80) [facility] Start: 04-04-2024 End: 04-04-2024 Patient encounter procedure 04/04/2024 1:00 PM EDT Office Visit General Surgery [address] [place] [address] Jordin Dickerson MD [address] [id number] 6 MTH F/U BREAST General Surgery Comment on above: 6 MTH F/U BREAST Start: 04-03-2024 Annual PCP Team Chronic Disease Visit Annual PCP Team Chronic Disease Visit [facility] Start: 03-28-2024 DIABETES SCREEN DIABETES SCREEN [facility] Start: 03-25-2024 End: 03-25-2024 Patient encounter procedure 03/25/2024 2:15 PM EDT Office Visit General Surgery [address] [place] [place] [phone] Jordin Dickerson MD [address] [phone] 6 MTH F/U BREAST General Surgery Comment on above: 6 MTH F/U BREAST Start: 03-22-2024 End: 10-19-2024 MG Breast - left Diagnostic for implant PARTH DIAGNOSTIC LEFT Radiology Routine 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 Expected: 03/22/2024, Expires: 10/19/2024 [facility] Work Phone: Comment on above: Expected: 03/22/2024, Expires: Start: 03-22-2024 End: 10-19-2024 US Breast - left limited US BREAST LTD LEFT Radiology Routine 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 Expected: 03/22/2024, Expires: 10/19/2024 [facility] Work Phone: Comment on above: Expected: 03/22/2024, Expires: Start: 03-16-2024 ANNUAL PCP TEAM CHRONIC DISEASE VISIT ANNUAL PCP TEAM CHRONIC DISEASE VISIT [facility] Start: 03-16-2024 BP CONTROLLED (<130/80) BP CONTROLLED (<130/80) [facility] Start: 03-09-2024 Covid-19 Vaccine ( season) Covid-19 Vaccine ( season) [facility] Start: 03-09-2024 Covid-19 Vaccine ( season) Covid-19 Vaccine ( season) [facility] Start: 03-09-2024 Influenza vaccination Influenza Vaccine (#1) [facility] Start: 02-19-2024 End: 02-19-2024 Patient encounter procedure 02/19/2024 1:30 PM EDT Office Visit Podiatry [address] [place] [address] Omero Rollins [address] [place] [address] Plantar wart of both feet [B07.0] Podiatry Comment on above: Plantar wart of both feet [B07.0] Start: 02-12-2024 End: 02-12-2024 Patient encounter procedure 02/12/2024 3:45 PM EDT Office Visit Neurology [address] [place] [address] Kristy Asencio PA-C [address] [place] [address] 4 month follow up Neurology Comment on above: 4 month follow up Start: 02-05-2024 End: 05-06-2024 C reactive protein [Mass/volume] in Serum or Plasma C-REACTIVE PROTEIN Lab Routine Microcytic anemia Thrombocytosis Expected: 02/05/2024, Expires: 05/06/2024 [facility] Comment on above: Expected: 02/05/2024, Expires: Start: 02-05-2024 End: 05-06-2024 CBC W Ordered Manual Differential panel - Blood PATHOLOGIST INTERPRETATION WITH CBC AND DIFF Lab Routine Microcytic anemia Thrombocytosis Expected: 02/05/2024, Expires: 05/06/2024 [facility] Comment on above: Expected: 02/05/2024, Expires: Start: 02-05-2024 End: 05-06-2024 Erythrocyte sedimentation rate SEDIMENTATION RATE, WESTERGREN Lab Routine Microcytic anemia Thrombocytosis Expected: 02/05/2024, Expires: 05/06/2024 [facility] Comment on above: Expected: 02/05/2024, Expires: Start: 02-05-2024 End: 05-06-2024 Ferritin [Mass/volume] in Serum or Plasma FERRITIN Lab Routine Microcytic anemia Thrombocytosis Expected: 02/05/2024, Expires: 05/06/2024 [facility] Comment on above: Expected: 02/05/2024, Expires: Start: 02-05-2024 End: 05-06-2024 Iron and Iron binding capacity panel - Serum or Plasma IRON AND TIBC Lab Routine Microcytic anemia Thrombocytosis Expected: 02/05/2024, Expires: 05/06/2024 [facility] Work Phone: Comment on above: Expected: 02/05/2024, Expires: Start: 02-04-2024 End: 02-04-2024 Patient encounter procedure 02/04/2024 11:00 AM EDT Office Visit Family Medicine [facility] [address] [place] [address] Leny Hsu MD [address] [place] [address] 2 week follow up- left arm pain Family Medicine [facility] Comment on above: 2 week follow up- left arm pain Start: 01-25-2024 End: 01-25-2024 Patient encounter procedure 01/25/2024 11:30 AM EDT Appointment Radiology [address] [place] [address] Acquired hypothyroidism [E03.9]; Enlarged thyroid [E04.9] Radiology Comment on above: Acquired hypothyroidism [E03.9]; Enlarge d thyroid [E04.9] Start: 01-22-2024 End: 01-22-2024 Patient encounter procedure 01/22/2024 2:45 PM EDT Office Visit Podiatry [address] [place] [address] Omero Rollins [address] [place] [address] Plantar wart of both feet [B07.0] Podiatry Comment on above: Plantar wart of both feet [B07.0] Start: 01-20-2024 ANNUAL PCP TEAM CHRONIC DISEASE VISIT ANNUAL PCP TEAM CHRONIC DISEASE VISIT [facility] Start: 01-20-2024 BP CONTROLLED (<130/80) BP CONTROLLED (<130/80) [facility] Start: 01-16-2024 ANNUAL PCP TEAM CHRONIC DISEASE VISIT ANNUAL PCP TEAM CHRONIC DISEASE VISIT [facility] Start: 01-16-2024 BP CONTROLLED (<130/80) BP CONTROLLED (<130/80) [facility] Start: 01-14-2024 End: 04-14-2024 CBC W Auto Differential panel - Blood COMPLETE BLOOD COUNT AND DIFFERENTIAL Lab Routine Annual physical exam Expected: 01/14/2024, Expires: 04/14/2024 [facility] Work Phone: Comment on above: Expected: 01/14/2024, Expires: Start: 01-14-2024 End: 04-14-2024 Comprehensive metabolic 2000 panel - Serum or Plasma COMPREHENSIVE METABOLIC PANEL Lab Routine Annual physical exam Expected: 01/14/2024, Expires: 04/14/2024 [facility] Comment on above: Expected: 01/14/2024, Expires: Start: 01-14-2024 End: 04-14-2024 LIPID PANEL, NONFASTING LIPID PANEL, NONFASTING Lab Routine Annual physical exam Expected: 01/14/2024, Expires: 04/14/2024 [facility] Comment on above: Expected: 01/14/2024, Expires: Start: 01-14-2024 End: 04-14-2024 Thyrotropin [Units/volume] in Serum or Plasma THYROID STIMULATING HORMONE Lab Routine Annual physical exam Expected: 01/14/2024, Expires: 04/14/2024 [facility] Comment on above: Expected: 01/14/2024, Expires: Start: 01-14-2024 End: 01-14-2024 Patient encounter procedure 01/14/2024 1:20 PM EDT Office Visit Family Safia [place] [address] [place] [address] Leny Hsu MD [address] [place] [address] Physical/6 month follow up Family [place] [place] Comment on above: Physical/6 month follow up Start: 01-13-2024 BP CONTROLLED (<130/80) BP CONTROLLED (<130/80) [facility] in Start: 12-14-2023 ANNUAL PCP TEAM CHRONIC DISEASE VISIT ANNUAL PCP TEAM CHRONIC DISEASE VISIT [facility] Start: 09-01-2023 Mammography [facility] Start: 08-30-2023 ANNUAL PCP TEAM CHRONIC DISEASE VISIT ANNUAL PCP TEAM CHRONIC DISEASE VISIT [facility] Start: 08-30-2023 BP CONTROLLED (<130/80) BP CONTROLLED (<130/80) [facility] Start: 08-15-2023 ANNUAL PCP TEAM CHRONIC DISEASE VISIT ANNUAL PCP TEAM CHRONIC DISEASE VISIT [facility] Start: 08-15-2023 BP CONTROLLED (<130/80) BP CONTROLLED (<130/80) [facility] Start: 08-15-2023 COVID-19 VACCINE (#1) COVID-19 VACCINE (#1) [facility] Comment on above: Postponed from 1975 (Declined at t his time) Start: 06-05-2023 End: 09-04-2023 C reactive protein [Mass/volume] in Serum or Plasma [facility] Work Phone: Comment on above: Expected: 06/05/2023, Expires: Start: 06-05-2023 End: 09-04-2023 Cobalamin (Vitamin B12) [Mass/volume] in Serum or Plasma [facility] Work Phone: Comment on above: Expected: 06/05/2023, Expires: Start: 06-05-2023 End: 09-04-2023 Hemoglobin A1c in Blood [facility] Work Phone: Comment on above: Expected: 06/05/2023, Expires: Start: 06-05-2023 End: 09-04-2023 PROT ELECT SERUM WITH LAURY AND INTERP [facility] Work Phone: Comment on above: Expected: 06/05/2023, Expires: 4 Start: 04-27-2023 BP CONTROLLED (<130/80) BP CONTROLLED (<130/80) [facility] Start: 03-09-2023 Covid-19 Vaccine ( season) Covid-19 Vaccine () [facility] Start: 03-09-2023 Influenza vaccination INFLUENZA (#1) [facility] Start: 01-03-2023 BP CONTROLLED (<130/80) BP CONTROLLED (<130/80) [facility] Start: 12-13-2022 End: 02-12-2023 Comprehensive metabolic 2000 panel - Serum or Plasma [facility] Work Phone: Comment on above: Expected: 12/13/2022, Expires: 3 Start: 12-13-2022 End: 02-12-2023 Magnesium [Mass/volume] in Serum or Plasma [facility] Work Phone: Comment on above: Expected: 12/13/2022, Expires: 3 Start: 12-13-2022 End: 02-12-2023 Thyrotropin [Units/volume] in Serum or Plasma [facility] Work Phone: Comment on above: Expected: 12/13/2022, Expires: 3 Start: 12-13-2022 End: 02-12-2023 Urinalysis complete panel - Urine URINALYSIS WITH MICROSCOPIC, REFLEX CULTURE Lab Routine Syncope and collapse Expected: 12/13/2022, Expires: 02/12/2023 [facility] Work Phone: Comment on above: Expected: 12/13/2022, Expires: 3 Start: 12-02-2022 ANNUAL PCP TEAM CHRONIC DISEASE VISIT ANNUAL PCP TEAM CHRONIC DISEASE VISIT [facility] Start: 11-28-2022 Colonoscopy COLONOSCOPY [facility] Start: 11-28-2022 COLORECTAL CANCER SCREENING COLORECTAL CANCER SCREENING [facility] Start: 11-02-2022 BP CONTROLLED (<130/80) BP CONTROLLED (<130/80) [facility] Start: 10-19-2022 ANNUAL PCP TEAM CHRONIC DISEASE VISIT ANNUAL PCP TEAM CHRONIC DISEASE VISIT [facility] Start: 09-19-2022 ANNUAL PCP TEAM CHRONIC DISEASE VISIT ANNUAL PCP TEAM CHRONIC DISEASE VISIT [facility] Start: 08-15-2022 End: 10-15-2022 CBC W Auto Differential panel - Blood [facility] Work Phone: Comment on above: Expected: 08/15/2022, Expires: 3 Start: 08-15-2022 End: 10-15-2022 Thyrotropin [Units/volume] in Serum or Plasma [facility] Work Phone: Comment on above: Expected: 08/15/2022, Expires: 3 Start: 08-09-2022 Mammography MAMMOGRAM [facility] Start: 03-30-2022 End: 05-30-2022 CBC W Auto Differential panel - Blood CBC + DIFF Lab Routine Bilateral upper abdominal pain Expected: 03/30/2022, Expires: 05/30/2022 [facility] Work Phone: Comment on above: Expected: 03/30/2022, Expires: 2 Start: 03-30-2022 End: 05-30-2022 CELIAC SCREEN WITH REFLEX CELIAC SCREEN WITH REFLEX Lab Routine Irritable bowel syndrome with both constipation and diarrhea Expected: 03/30/2022, Expires: 05/30/2022 [facility] Work Phone: Comment on above: Expected: 03/30/2022, Expires: 2 Start: 03-30-2022 End: 05-30-2022 Comprehensive metabolic 2000 panel - Serum or Plasma COMP METABOLIC PANEL Lab Routine Bilateral upper abdominal pain Expected: 03/30/2022, Expires: 05/30/2022 [facility] Work Phone: Comment on above: Expected: 03/30/2022, Expires: 2 Start: 03-30-2022 End: 05-30-2022 Lipase [Enzymatic activity/volume] in Serum or Plasma LIPASE BLD Lab Routine Bilateral upper abdominal pain Expected: 03/30/2022, Expires: 05/30/2022 [facility] Work Phone: Comment on above: Expected: 03/30/2022, Expires: 2 Start: 03-30-2022 End: 05-30-2022 Thyrotropin [Units/volume] in Serum or Plasma TSH BLD Lab Routine Bilateral upper abdominal pain Expected: 03/30/2022, Expires: 05/30/2022 [facility] Work Phone: Comment on above: Expected: 03/30/2022, Expires: 2 Start: 03-09-2022 Influenza vaccination INFLUENZA (#1) [facility] Start: 2021 COLOGUARD (FIT-DNA) COLOGUARD (FIT-DNA) [facility] Start: 2021 Colonoscopy COLONOSCOPY [facility] Start: 2021 COLORECTAL CANCER SCREENING COLORECTAL CANCER SCREENING [facility] Start: [address] COLONOGRAPHY [facility] Start: 2021 FECAL OCCULT BLOOD FECAL OCCULT BLOOD [facility] Start: 2021 Screening for malignant neoplasm of colon [facility] Start: 2021 SIGMOIDOSCOPY SIGMOIDOSCOPY [facility] Start: 1995 Hepatitis B Vaccine (1 of 3 - 19+ 3-dose series) Hepatitis B Vaccine (1 of 3 - 19+ 3-dose series) [facility] Start: 1994 Anxiety Screening Anxiety Screening [facility] Start: 1994 BP CONTROLLED (<130/80) BP CONTROLLED (<130/80) [facility] in Start: 1981 COVID-19 VACCINE (#1) COVID-19 VACCINE (#1) [facility] Start: 1981 COVID-19 VACCINE (1) COVID-19 VACCINE (1) [facility] Start: 1976 COVID-19 VACCINE (#1) COVID-19 VACCINE (#1) [facility] Start: 1976 HEPATITIS B (1 of 3 - 3-dose series) HEPATITIS B (1 of 3 - 3-dose series) [facility] Start: 1976 Hepatitis B Vaccine (1 of 3 - 3-dose series) Hepatitis B Vaccine (1 of 3 - 3-dose series) [facility] Bacteria identified in Urine by Culture BACTERIAL CULTURE, URINE Microbiology Routine Vaginal burning 11/10/2024 11:52 AM EDT [facility] Work Phone: BACTERIAL VAGINOSIS NAAT BACTERI AL VAGINOSIS NAAT Lab Routine Encounter for gynecological examination (general) (routine) without abnormal findings Vaginal discharge 11/10/2024 2:24 PM EDT [facility] BRYON/TRICHOMONAS NAAT BRYON /TRICHOMONAS NAAT Lab Routine Encounter for gynecological examination (general) (routine) without abnormal findings Vaginal discharge 11/10/2024 2:24 PM EDT [facility] Cardiovascular funct ion eval w/tilt table w/mntr TILT TABLE EVALUATION Cardiology Routine Syncope and collapse Orthostatic lightheadedness Ordered: 06/05/2023 [facility] Work Phone: Comment on above: Ordered: 06/05/2023 Chlamydia trachomatis+Neisseria gonorrhoeae DNA [Presence] in Unspecified specimen by SVAI with probe detection GONORRHEA/CHLAMYDIA NAAT Lab Routine Encounter for gynecological examination (general) (routine) without abnormal findings Screen for STD (sexually transmitted disease) 11/10/2024 2:24 PM EDT [facility] End: 05-27-2023 Ct abdomen & pelvis w/contrast material CT ABD/PEL W IVCON Radiology Routine Hiatal hernia with GERD without esophagitis Bilateral upper abdominal pain Abdominal distension (gaseous) Nausea 1 Occurrences starting 04/27/2022 until 05/27/2023 [facility] Work Phone: Comment on above: 1 Occurrences starting 04/27/2022 until 05/27/2023 End: 10-02-2025 DBT Breast - bilateral screening PARTH SCREENING W LAURA Radiology Routine Encounter for screening mammogram for breast cancer 1 Occurrences starting 09/02/2024 until 10/02/2025 [facility] Work Phone: Comment on above: 1 Occurrences starting 09/02/2024 until 10/02/2025 End: 12-10-2025 DBT Breast - bilateral screening PARTH SCREENING W LAURA Radiology Routine Encounter for gynecological examination (general) (routine) without abnormal findings Encounter for screening mammogram for breast cancer 1 Occurrences starting 11/10/2024 until 12/10/2025 [facility] Work Phone: Comment on above: 1 Occurrences starting 11/10/2024 until 12/10/2025 DDI VIBRATION CONTRO LLED TRANSIENT ELASTOGRAPHY (VCTE) DDI VIBRATION CONTROLLED TRANSIENT ELASTOGRAPHY (VCTE) Endoscopy Routine Fatty metamorphosis of liver Ordered: 04/18/2023 [facility] Work Phone: Comment on above: Ordered: 04/18/2023 Destruction benign lesions up to 14 DESTR LESION BENIGN/PREMAL Procedures Routine Plantar wart S/P cryotherapy of skin lesion Ordered: 01/19/2023 [facility] Work Phone: Comment on above: Ordered: 01/19/2023 End: 12-14-2023 ECG COMPLETE ECG COMPLETE ECG Routine Syncope and collapse 1 Occurrences starting 12/13/2022 until 12/14/2023 [facility] Work Phone: Comment on above: 1 Occurrences starting 12/13/2022 until 12/14/2023 ECG COMPLETE ECG COMPLETE ECG 01/02/2024 12:02 PM EDT [facility] End: 01-01-2025 Echocardiography ECHO Cardiology TEMITOPE Other chest pain 1 Occurrences starting 01/02/2024 until 01/01/2025 [facility] Comment on above: 1 Occurrences starting 01/02/2024 until 01/01/2025 End: 12-13-2022 EGD DIAGNOSTIC EGD DIAGNOSTIC Endoscopy Routine Epigastric pain Nausea 1 Occurrences starting 12/13/2021 until 12/13/2022 [facility] Work Phone: Comment on above: 1 Occurrences starting 12/13/2021 until 12/13/2022 End: 09-29-2025 EGD DIAGNOSTIC EGD DIAGNOSTIC Endoscopy Routine Hiatal hernia Gastroesophageal reflux disease, unspecified whether esophagitis present 1 Occurrences starting 09/29/2024 until 09/29/2025 [facility] Work Phone: Comment on above: 1 Occurrences starting 09/29/2024 until 09/29/2025 End: 01-01-2025 EXERCISE STRESS ECG (WITHOUT IMAGING) EXERCISE STRESS ECG (WITHOUT IMAGING) Cardiology TEMITOPE Other chest pain 1 Occurrences starting 01/02/2024 until 01/01/2025 [facility] Comment on above: 1 Occurrences starting 01/02/2024 until 01/01/2025 Hemoglobin.gastroint estin al.lower [Presence] in Stool by Immunoassay IMMUNOCHEMICAL FECAL OCCULT BLOOD TEST Lab Routine Microcytic anemia Thrombocytosis Ordered: 02/05/2024 [facility] Comment on above: Ordered: 02/05/2024 Hemoglobin.gastroint estin al.lower [Presence] in Stool by Immunoassay IMMUNOCHEMICAL FECAL OCCULT BLOOD TEST Lab Routine Iron deficiency Ordered: 02/28/2024 [facility] Work Phone: Comment on above: Ordered: 02/28/2024 End: 01-05-2023 Hepatobil syst imag inc gb w/pharma intervenj NM HEPATOBILIARY W EF AND/OR RX Radiology Routine Nausea 1 Occurrences starting 12/06/2021 until 01/05/2023 [facility] Work Phone: Comment on above: 1 Occurrences starting 12/06/2021 until 01/05/2023 End: 06-04-2024 HOME SLEEP APNEA TEST (HSAT) HOME SLEEP APNEA TEST (HSAT) Procedures Routine Obstructive sleep apnea 1 Occurrences starting 06/05/2023 until 06/04/2024 [facility] Work Phone: Comment on above: 1 Occurrences starting 06/05/2023 until 06/04/2024 End: 09-14-2023 PARTH SCREENING PARTH SCREENING Radiology Routine Encounter for screening mammogram for breast cancer 1 Occurrences starting 08/15/2022 until 09/14/2023 [facility] Work Phone: Comment on above: 1 Occurrences starting 08/15/2022 until 09/14/2023 PAP TEST PAP TEST Lab Rou tommy Encounter for gynecological examination (general) (routine) without abnormal findings Screening for cervical cancer Encounter for screening for human papillomavirus (HPV) 11/10/2024 2:24 PM EDT [facility] Patient Education [facility] Work Phone: Patient referral [facility] Work Phone: End: 03-16-2024 PVR ANK PRESS [facility] PVR ANK PRESS [facility] Vascular Lab Routine Claudication (HCC) 1 Occurrences starting 03/16/2023 until 03/16/2024 [facility] Work Phone: Comment on above: 1 Occurrences starting 03/16/2023 until 03/16/2024 End: 05-17-2024 Radiologic exam esophagus single contrast study XR ESOPHAGRAM Radiology Routine Esophageal dysphagia 1 Occurrences starting 04/18/2023 until 05/17/2024 [facility] Work Phone: Comment on above: 1 Occurrences starting 04/18/2023 until 05/17/2024 End: 09-05-2023 SURGICAL PATHOLOGY SURGICAL PATHOLOGY Lab Routine ONCE for 1 Occurrences starting 09/05/2023 until 09/05/2023 [facility] Work Phone: Comment on above: ONCE for 1 Occurrences starting 02 until 09/05/2023 Tissue Pathology bio psy report [facility] Work Phone: Comment on above: Release Upon Ordering for 1 Occurrences starting 10/24/2024, 1 completed Urine culture [facility] End: 01-12-2023 Us abdominal real time w/image limited US ABD RT UPPER QUADRANT Radiology Routine Epigastric pain Nausea 1 Occurrences starting 12/13/2021 until 01/12/2023 [facility] Work Phone: Comment on above: 1 Occurrences starting 12/13/2021 until 01/12/2023 End: 09-11-2024 US BIOPSY BREAST LEFT US BIOPSY BREAST LEFT Radiology Routine Abnormal mammogram 1 Occurrences starting 08/13/2023 until 09/11/2024 [facility] Work Phone: Comment on above: 1 Occurrences starting 08/13/2023 until 09/11/2024 End: 02-12-2025 US Thyroid gland US THYROID/PARATHYROID Radiology Routine Acquired hypothyroidism Enlarged thyroid 1 Occurrences starting 01/14/2024 until 02/12/2025 [facility] Comment on above: 1 Occurrences starting 01/14/2024 until 02/12/2025 End: 05-17-2024 XR ABDOMEN 1V SUPINE XR ABDOMEN 1V SUPINE Radiology Routine Irritable bowel syndrome with both constipation and diarrhea 1 Occurrences starting 04/18/2023 until 05/17/2024 [facility] Work Phone: Comment on above: 1 Occurrences starting 04/18/2023 until 05/17/2024 XR Abdomen Supine an d Upright XR ABDOMEN 1V SUPINE Radiology Routine Suprapubic pain, acute 08/06/2024 12:36 PM EST [facility] Work Phone: End: 09-29-2023 XR ANKLE GENERAL 3V AP/LAT/OBL RIGHT XR ANKLE GENERAL 3V AP/LAT/OBL RIGHT Radiology Routine Sprain of ligament of right ankle, subsequent encounter 1 Occurrences starting 08/30/2022 until 09/29/2023 [facility] Work Phone: Comment on above: 1 Occurrences starting 08/30/2022 until 09/29/2023 XR ANKLE GENERAL 3V AP/LAT/OBL RIGHT XR ANKLE GENERAL 3V AP/LAT/OBL RIGHT Radiology Routine Sprain of ligament of right ankle, subsequent encounter 08/30/2022 10:48 AM EST [facility] Work Phone: End: 01-31-2025 XR Chest PA and Lateral XR CHEST 2V FRONTAL/LAT Radiology Routine Other chest pain 1 Occurrences starting 01/02/2024 until 01/31/2025 [facility] Work Phone: Comment on above: 1 Occurrences starting 01/02/2024 until 01/31/2025 [facility] Immunizations Immunization Date Immunization Notes Care Provider Patrick [facility] 09-02-2024 influenza, seasonal, injectable Leny Hsu MD Work Phone: [facility] 09-02-2024 influenza virus vaccine, unspecified formulation Leny Hsu MD Work Phone: [facility] 03-16-2023 influenza, injectabl e, quadrivalent, contains preservative Leny Hsu MD Work Phone: [facility] 03-16-2023 influenza virus vaccine, unspecified formulation Leny Hsu MD Work Phone: [facility] 08-15-2022 influenza, injectabl e, quadrivalent, contains preservative Leny Hsu MD Work Phone: [facility] 03-28-2021 influenza, injectabl e, quadrivalent, contains preservative Lydia Gonzalez APRN.CNP Work Phone: [facility] Work Phone: 03-30-2020 influenza, injectabl e, quadrivalent, contains preservative Lydia Podlogar [employer] ARTIST.[facility] Work Phone: [facility] 10-02-2019 tetanus toxoid, reduced diphtheria toxoid, and acellular pertussis vaccine, adsorbed Lydia Podlogar [employer] ARTIST.[facility] Work Phone: [facility] Work Phone: 04-03-2017 influenza, injectabl e, quadrivalent, contains preservative Lydia Podlogar [employer] ARTIST.[facility] Work Phone: [facility] Work Phone: 07-27-2016 influenza, injectabl e, quadrivalent, contains preservative Lydia Podlogar [employer] ARTIST.[facility] Work Phone: [facility] Work Phone: Payers Date Payer Category Payer Self-pay [id number] 2019 Medicare (Managed Care) JOSE BOWSER O [id number] 2019 Unknown JOSE GREGORIO S AND BL[employer] MEDILAITH O [id number] 2019-Present [phone] [address] [place] [address] [facility] [id number] 2019 Unknown [id number] 2019 Unknown [id number] 2019 Medicaid MEDICAID [facility] MEDICAID [id number] 2019-Present [phone] [address] [place] [address] Medicaid [id number] 2019 Medicaid [id number] 2015 Medicaid [id number] 2001 Medicare [id number] Medicare [id number] Unknown [id number] Social History Date Type Detail Facility Start: 07-26-2015 End: 05-13-2024 Tobacco smoking status NHIS Ex-smoker [facility] Work Phone: History of tobacco use Cigarette Smoker [facility] Work Phone: Start: 07-26-2015 End: 11-23-2022 Cigarettes smoked current (pack per day) - Reported 1 [facility] Start: 07-26-2015 End: 05-13-2024 Tobacco use and exposure Former smokeless tobacco user [facility] Work Phone: End: 04-25-2015 History of tobacco use User of smokeless tobacco [facility] Work Phone: Start: 08-23-2021 End: 09-19-2021 Alcohol intake Current non-drinker of alcohol (finding) [facility] Start: 12-06-2010 History SDOH Alcohol Comment Occasionally [facility] Start: 1975 Sex Assigned At Not on file C [facility] Start: 07-24-2021 End: 04-27-2022 Exposure to SARS-CoV-2 (event) Not sure [facility] Work Phone: Start: 05-19-2021 End: 10-14-2022 Tobacco smoking status NHIS Unknown if ever smoked [facility] Start: 06-21-[address] [facility] Start: 06-21-[address] [facility] Start: 12-23-[address] [facility] Start: 1975 Sex Assigned At Female W [facility] Start: 12-10-2021 End: 12-20-2021 Exposure to SARS-CoV-2 (event) Unable to assess [facility] Work Phone: History of tobacco use Current smoker [facility] Start: 11-23-2022 End: 01-15-2023 Tobacco use panel [facility] Start: 06-09-2012 Adult Depression Screening Assessment 0 [facility] Start: 08-13-2023 End: 01-02-2024 Alcohol intake Ex-drinker (finding) [facility] Start: 01-14-2024 End: 03-02-2025 Alcohol intake Current drinker of alcohol (finding) [facility] Start: 01-14-2024 Alcohol Comment less than weekly use [facility] Start: 02-01-2025 Tobacco smoking status NHIS Never smoked tobacco (finding) [facility] NEGATED: Highlighted row [facility] Functional Status Date Assessment Result Facility 01-11-2015 Are you deaf, or do you have serious difficulty hearing No [facility] 01-11-2015 Are you blind, or do you have serious difficulty seeing, even when wearing glasses No [facility] 01-11-2015 Do you have serious difficulty walking or climbing stairs No [facility] 01-11-2015 Do you have difficulty dressing or bathin g No [facility] 01-11-2015 Because of a physica l, mental, or emotional condition, do you have difficulty doing errands alone such as visiting a physician's office or shopping Yes [facility] Mental Status Date Assessment Result Facility 01-11-2015 Because of a physica l, mental, or emotional condition, do you have serious difficulty concentrating, remembering, or making decisions Yes [facility] Clinical Notes 03-29-2015 to 03-02-2025 Patient InstructionsLeny Hsu MD - 03/02/2025 1:31 PM EDTPatient InstructionsLydia Gonzalez APRN.CNP - 02/05/2025 12:31 PM EDT Note Date & Type Note [facility] 03-02-2025 Instructions Leny Hsu MD - 03/02/2025 1:51 PM EDT - Stop the Effexor you are taking 3 times per day and Start Effexor XR (venlafaxine extended-release) 150 mg once daily as prescribed; prescription sent to your pharmacy. It may take 2-6 weeks to notice improvement in anxiety and depression. - Increase Topamax (topiramate) to 75 mg twice daily for migraine prevention; prescription sent to your pharmacy. - Refill Amerge (naratriptan) to take as needed at the first sign of a migraine; prescription sent to your pharmacy. - Continue your current BuSpar (buspirone), Wellbutrin (bupropion), thyroid medication, and any other existing prescriptions exactly as directed. - Get blood drawn today for thyroid function, vitamin D, and vitamin B12 levels per the lab order provided. - Schedule a follow-up visit in about one month to review how you re feeling and adjust medications if needed; the nurse will help you set this up today. - Continue counseling sessions every Sunday at [facility] in [place]. - Keep a headache diary: record each migraine s date, time, possible triggers (sleep, stress, weather, foods), and medication use. - If you ever feel unsafe or have thoughts of hurting yourself, call 911 or go to your nearest emergency department immediately, or call/text [phone] for crisis support. documented in this encounter [facility] 03-02-2025 Note HNO ID: [id number] Author: LENY HSU MD Service: ? Author Type: Physician Type: Progress Notes Filed: 03/02/2025 13:56 Note Text: Chief Complaint Patient presents with: 6 Month Exam Depression: States her medications are not working and need changed. Recording using Inmoo software for draft documentation of the visit was discussed with the patient/authorized account representative; all questions welcomed and answered. Patient/authorized account representative agreed to proceed HPI Maximus Bradley is a 49 year old female who presents here today for Above Complaints. Anxiety and Depression: - Worsening symptoms x4 months, coinciding with the of her mother and half-brother. - Mother 4 months ago from a CVA; half-brother recently from stomach cancer. - Current medications: Effexor 75 mg TID, BuSpar, Wellbutrin. - Recent increase in Effexor dosage from 100 mg BID to 75 mg TID did not provide relief. - Denies side effects from medication changes. - Attending counseling at [facility] in [place] every Sunday. - Denies suicidal ideation; feels safe going home today. Migraines: - Increased frequency of migraines, requiring Emerge more than once a week. - No specific triggers identified; Amerge provides quick relief. - Current prophylactic medication: Topamax 50 mg BID. - Denies slurred speech, facial droop, vision changes, numbness, tingling, weakness, chest pain, palpitations, coughing, or wheezing. CRISTINO-7 10/28/2024 03/02/2025 CRISTINO-7 All Questions Feeling nervous, anxious, or on edge Nearly Everyday Nearly Everyday Not being able to stop or control worrying Nearly Everyday Nearly Everyday Worrying too much about different things Nearly Everyday Nearly Everyday Trouble relaxing Nearly Everyday Nearly Everyday Being so restless that it is hard to sit still Several days Nearly Everyday Becoming easily annoyed or irritable Several days Nearly Everyday Feeling afraid, as if something awful might happen Several days Nearly Everyday CRISTINO-7 Score 15 21 PHQ-9 More data exists 01/30/2017 02/28/2018 03/25/2019 10/28/2024 03/02/2025 PHQ-9 Scores Little interest or pleasure in doing things: Several days Nearly every day Not at all Several days Nearly every day Feeling down, depressed, or hopeless: Several days Nearly every day Not at all Nearly every day Nearly every day Trouble falling or staying asleep, or sleeping too much - Nearly every day - More than half the days Nearly every day Feeling tired or having little energy - Nearly every day - More than half the days Nearly every day Poor appetite or overeating - Nearly every day - Nearly every day Nearly every day Feeling bad about yourself - or that you are a failure or have let yourself or your family down - - - Nearly every day Nearly every day Trouble concentrating on things, such as reading the newspaper or watching television - Not at all - Nearly every day Nearly every day Moving or speaking so slowly that other people could have noticed. Or the opposite - being so fidgety or restless that you have been moving around a lot more than usual - Not at all - Several days Nearly every day Thoughts that you would be better off , or of hurting yourself in some way - - - Not at all Not at all PHQ-9 Score - - - 18 24 Details Data saved with a previous flowsheet row definition Past medical history, appointments, medications, allergies reviewed. [...] Known Problems Son Cancer Paternal Uncle Throat S (more content not included)... [facility] 03-02-2025 History of Presen t illness Narrative Images from the original note were not included. Chief Complaint Patient presents with: 6 Month Exam Depression: States her medications are not working and need changed. Recording using Inmoo software for draft documentation of the visit was discussed with the patient/authorized account representative; all questions welcomed and answered. Patient/authorized account representative agreed to proceed HPI Maximus Bradley is a 49 year old female who presents here today for Above Complaints. Anxiety and Depression: - Worsening symptoms x4 months, coinciding with the of her mother and half-brother. - Mother 4 months ago from a CVA; half-brother recently from stomach cancer. - Current medications: Effexor 75 mg TID, BuSpar, Wellbutrin. - Recent increase in Effexor dosage from 100 mg BID to 75 mg TID did not provide relief. - Denies side effects from medication changes. - Attending counseling at [facility] in [place] every Sunday. - Denies suicidal ideation; feels safe going home today. Migraines: - Increased frequency of migraines, requiring Emerge more than once a week. - No specific triggers identified; Amerge provides quick relief. - Current prophylactic medication: Topamax 50 mg BID. - Denies slurred speech, facial droop, vision changes, numbness, tingling, weakness, chest pain, palpitations, coughing, or wheezing. CRISTINO-7 10/28/2024 03/02/2025 CRISTINO-7 All Questions Feeling nervous, anxious, or on edge Nearly Everyday Nearly Everyday Not being able to stop or control worrying Nearly Everyday Nearly Everyday Worrying too much about different things Nearly Everyday Nearly Everyday Trouble relaxing Nearly Everyday Nearly Everyday Being so restless that it is hard to sit still Several days Nearly Everyday Becoming easily annoyed or irritable Several days Nearly Everyday Feeling afraid, as if something awful might happen Several days Nearly Everyday CRISTINO-7 Score 15 21 PHQ-9 More data exists 01/30/2017 02/28/2018 03/25/2019 10/28/2024 03/02/2025 PHQ-9 Scores Little interest or pleasure in doing things: Several days Nearly every day Not at all Several days Nearly every day Feeling down, depressed, or hopeless: Several days Nearly every day Not at all Nearly every day Nearly every day Trouble falling or staying asleep, or sleeping too much - Nearly every day - More than half the days Nearly every day Feeling tired or having little energy - Nearly every day - More than half the days Nearly every day Poor appetite or overeating - Nearly every day - Nearly every day Nearly every day Feeling bad about yourself - or that you are a failure or have let yourself or your family down - - - Nearly every day Nearly every day Trouble concentrating on things, such as reading the newspaper or watching television - Not at all - Nearly every day Nearly every day Moving or speaking so slowly that other people could have noticed. Or the opposite - being so fidgety or restless that you have been moving around a lot more than usual - Not at all - Several days Nearly every day Thoughts that you would be better off , or of hurting yourself in some way - - - Not at all Not at all PHQ-9 Score - - - 18 24 Details Data saved with a previous flowsheet row definition Past medical history, appointments, medications, allergies reviewed. [...] Known Problems Son Cancer Paternal Uncle Throat Stomach Cancer Half-brother No Ocular Disease No Family History Patient Allergies ALLERGIES Allergen Reactions Bee Pollen Anaphylaxis Adderall [Dextroamp* Itching Amphetamine Itching Imitrex [Sumatripta* Other: See Comments palpitations Current Medications Current Outpatient Medications on File Prior to Visit Medication Sig omeprazole (PRILOSEC) 40 mg capsule TAKE 1 CAPSULE BY MOUTH TWICE A DAY venlafaxine (EFFEXOR) 75 mg tablet Take 1 tablet by mouth three times a day. busPIRone (BUSPAR) 5 mg tablet Take 1 tablet by mouth two times a day. levothyroxine (SYNTHROID) 75 mcg tablet Take 1 tablet by mouth once daily. Take on empty stomach. For Thyroid buPROPion XL (WELLBUTRIN XL) 300 mg 24 hr tablet Take 1 tablet by mouth once daily. topiramate (TOPAMAX) 25 mg capsule Take 2 capsules by mouth two times a day. VITAMIN D-3 50 mcg (2,000 unit) tablet [...] more than 10 doses in a month. clotrimazole (LOTRIMIN) 1 % cream Apply BID to rash until rash goes away, and then continue for 1 more week. cyanocobalamin (VITAMIN B-12) 1,000 mcg tab TAKE 1 TABLET BY MOUTH DAILY albuterol HFA (VENTOLIN HFA) 90 mcg/actuation inhaler Inhale 2 Puffs as instructed every 4 hours as needed for wheezing/shortness of breath. cephALEXin (KEFLEX) 500 mg capsule Take 500 mg by mouth. (Patient not taking: Reported on 03/02/2025) loratadine (CLARITIN) 10 mg tablet Take 1 tablet by mouth once daily. (Patient not taking: Reported on 03/02/2025) omeprazole (PRILOSEC) 40 mg capsule Take 1 capsule by mouth two times a day. (Patient not taking: Reported on 03/02/2025) folic acid 1 mg tablet Take 1 tablet by mouth once daily. (Patient not taking: Reported on 03/02/2025) fluticasone (FLONASE) 50 mcg/actuation nasal spray Use 2 Sprays in each nostril once daily. Rinse mouth after use. (Patient not taking: Reported on 03/02/2025) No current facility-administered medications on file prior to visit. Social History SOCIAL HISTORY[1] Review of Symptoms REVIEW OF SYSTEMS See HPI EXAM: BP 134/86 Pulse 88 Ht 163 cm (5' 4.17) Wt 94.9 kg (209 lb 3.2 oz) LMP 11/06/2024 (Exact Date) SpO2 99% BMI 35.72 kg/m General Appearance: Well appearing, alert, in no acute distress, well-hydrated, well nourished.. Skin: Skin color, texture, turgor normal, no suspicious rashes or lesions. Lungs: Lungs clear to auscultation. No wheezing, rhonchi, rales.. Heart: RRR without murmur, gallop, or rubs. No ectopy. Neurologic: Gait normal. Reflexes normal and symmetric. Sensation grossly intact. Health Maintenance List Anxiety Screening Never done Hepatitis B Vaccine(1 of 3 - 19+ 3-dose series) Never done Medicare Advantage Annual Wellness Visit Never done Influenza Vaccine(1) due on 03/09/2025 Mammogram Screening due on 09/24/2025 Cervical Cancer Screening due on 11/10/2025 Annual PCP Team Chronic Disease Visit due on 03/02/2026 Diabetes Screening due on 08/06/2027 Lipid Screening due on 02/03/2029 DTaP,Tdap,Td Vaccine(2 - Td or Tdap) due on 10/01/2029 Colorectal Cancer Screening due on 11/29/2031 Hepatitis C Screening Completed HIV Screening Completed Data reviewed Latest Ref Rng 08/06/2024 09/02/2024 WBC 3.70 - 11.00 k/uL 10.23 RBC [...] Abs Lymph 1.00 - 4.00 k/uL 2.45 Love% % 7.5 Abs Love <0.87 k/uL 0.77 Eosin% % 3.3 Abs [...] 0.7 Ferritin 14.7 - 205.1 ng/mL 66.9 TSH 0.270 - 4.200 mIU/L 2.380 Legend: (H) High (L) Low 1. Moderate episode of recurrent major depressive disorder (HCC) (F33.1) 2. CRISTINO (generalized anxiety disorder) (F41.1) - Worsening symptoms over the past 4 months following the of patient's mother and half-brother. - Currently taking Effexor 75 mg TID, BuSpar, and Wellbutrin; no side effects reported with current regimen. - Increase Effexor to 150 mg once daily (extended release). - Discussed expected onset of therapeutic effect (2-6 weeks); patient expressed understanding and agreement with plan. - Advised to continue weekly counseling at [facility] in [place]. - Provided crisis resources and emergency contact information. - Follow-up in 1 month to reassess symptoms and medication response. 3. Migraine without aura and without status migrainosus, not intractable (G43.009) - Increased frequency of migraines, currently requiring acute treatment with Nurtec more than once per week. - Increase Topamax from 50 mg BID to 75 mg BID. - Refill Nurtec for acute migraine management. - Advised patient to maintain a headache diary to identify potential triggers. 4. Acquired hypothyroidism (E03.9) - Compliant with synthroid. - Order blood work to check thyroid levels with worsening anxiety and depression. Leny Hsu MD [1] Social History Tobacco Use Smoking status: Former Current packs/day: 1.00 Types: Cigarettes Smokeless tobacco: Former Quit date: 04/25/2015 Vaping Use Vaping status: Never Used Substance Use Topics Alcohol use: Yes Comment: less than weekly use Drug use: Never documented in this encounter [facility] 02-05-2025 Instructions Lydia Gonzalez APRN.MOTION STUDY ENGINEER - 02/05/2025 12:40 PM EDT - Finish the full course of Keflex (cephalexin) as prescribed, even if you feel completely better. - Continue drinking plenty of fluids to help flush your system. - Watch for any new or worsening symptoms--such as fever, chills, back or belly pain, painful or frequent urination, or vomiting--and go to the emergency room if they occur. - Keep your follow-up appointment with Dr. Hsu on 03/02 at 1:00 pm. documented in this encounter [facility] 02-05-2025 Note HNO ID: [id number] Author: LYDIA GONZALEZ APRN.BHARATHI Service: ? Author Type: Nurse Practitioner Type: Progress Notes Filed: 02/05/2025 13:19 Note Text: 02/05/2025 Patient presents with: ER F/U: [facility] 02/01 for pyelonephritis Recording using Inmoo software for draft documentation of the visit was discussed with the patient/authorized account representative; all questions welcomed and answered. Patient/authorized account representative agreed to proceed SUBJECTIVE: This is a 49 year old that is here today for Above Complaints.. Pyelonephritis: - Seen at [facility] ER on 02/01/2025 for pyelonephritis; received one dose of Keflex in the hospital. - Delay in obtaining Keflex prescription post-discharge; Maximus started full course yesterday. - Reports feeling warm yesterday, suspecting a low-grade fever; denies taking temperature. - Urination has improved since hospitalization; denies hematuria or dysuria. - Experiencing urinary frequency; denies back or abdominal pain. - Denies new onset of constipation or diarrhea; has a history of both conditions. ER visit reviewed PAST MEDICAL HISTORY Diagnosis Date Abdominal pain, [...] Reflux esophagitis Thrombocytosis Urinary retention Pablo Arrington ALLERGIES Bee Pollen, Adderall [Dextroamphetamine-Amphetamine] , Amphetamine, and Imitrex [Sumatriptan] MEDICATIONS Current Outpatient Medications Medication Sig cephALEXin (KEFLEX) 500 mg capsule Take 500 mg by mouth. loratadine (CLARITIN) 10 mg tablet Take 1 tablet by mouth once daily. omeprazole (PRILOSEC) 40 mg capsule TAKE 1 CAPSULE BY MOUTH TWICE A DAY omeprazole (PRILOSEC) 40 mg capsule Take 1 capsule by mouth two times a day. venlafaxine (EFFEXOR) 75 mg tablet Take 1 tablet by mouth three times a day. busPIRone (BUSPAR) 5 mg tablet Take 1 [...] tab TAKE 1 TABLET BY MOUTH DAILY albuterol HFA (VENTOLIN HFA) 90 mcg/actuation inhaler [...] use Drug use: Never REVIEW OF SYSTEMS All other reviewed and negative other than HPI. OBJECTIVE: BP 124/86 (BP Site: Left Arm, BP Position: Sitting, BP Cuff Size: Regular Adult) Pulse 85 Wt 94.3 kg (208 lb) LMP 11/06/2024 (Exact Date) SpO2 98% BMI 35.51 kg/m? . Vital signs reviewed by this provider. APPEARANCE Well appearing, alert, in no acute distress, well-hydrated, well nourished. EYES conjunctiva and sclera normal. HEART RRR with normal S1 and S2, no murmurs, no gallops, no JVD appreciated LUNG clear to auscultation. No wheezes, rhonchi or rales ABDOMEN bowel sounds normoactive, no bruits, soft, non-tender, non-distended Back: No CVA tenderness EXTREMITIES Extremities normal, No deformities, No skin discoloration, and No edema SKIN Skin color, texture, turgor normal, no suspicious rashes or lesions to exposed skin Anxiety Screening Never done Hepatitis B Vaccine(1 of 3 - 19+ 3-dose series) Never done Medicare Advantage Annual Wellness Visit Dagoberto (more content not included)... [facility] 02-05-2025 History of Presen t illness Narrative 02/05/2025 Patient presents with: ER F/U: [facility] 02/01 for pyelonephritis Recording using Inmoo software for draft documentation of the visit was discussed with the patient/authorized account representative; all questions welcomed and answered. Patient/authorized account representative agreed to proceed SUBJECTIVE: This is a 49 year old that is here today for Above Complaints.. Pyelonephritis: - Seen at [facility] ER on 02/01/2025 for pyelonephritis; received one dose of Keflex in the hospital. - Delay in obtaining Keflex prescription post-discharge; Maximus started full course yesterday. - Reports feeling warm yesterday, suspecting a low-grade fever; denies taking temperature. - Urination has improved since hospitalization; denies hematuria or dysuria. - Experiencing urinary frequency; denies back or abdominal pain. - Denies new onset of constipation or diarrhea; has a history of both conditions. ER visit reviewed PAST MEDICAL HISTORY Diagnosis Date Abdominal pain, [...] Reflux esophagitis Thrombocytosis Urinary retention Pablo Arrington ALLERGIES Bee Pollen, Adderall [Dextroamphetamine-Amphetamine] , Amphetamine, and Imitrex [Sumatriptan] MEDICATIONS Current Outpatient Medications Medication Sig cephALEXin (KEFLEX) 500 mg capsule Take 500 mg by mouth. loratadine (CLARITIN) 10 mg tablet Take 1 tablet by mouth once daily. omeprazole (PRILOSEC) 40 mg capsule TAKE 1 CAPSULE BY MOUTH TWICE A DAY omeprazole (PRILOSEC) 40 mg capsule Take 1 capsule by mouth two times a day. venlafaxine (EFFEXOR) 75 mg tablet Take 1 tablet by mouth three times a day. busPIRone (BUSPAR) 5 mg tablet Take 1 [...] tab TAKE 1 TABLET BY MOUTH DAILY albuterol HFA (VENTOLIN HFA) 90 mcg/actuation inhaler [...] use Drug use: Never REVIEW OF SYSTEMS All other reviewed and negative other than HPI. OBJECTIVE: BP 124/86 (BP Site: Left Arm, BP Position: Sitting, BP Cuff Size: Regular Adult) Pulse 85 Wt 94.3 kg (208 lb) LMP 11/06/2024 (Exact Date) SpO2 98% BMI 35.51 kg/m . Vital signs reviewed by this provider. APPEARANCE Well appearing, alert, in no acute distress, well-hydrated, well nourished. EYES conjunctiva and sclera normal. HEART RRR with normal S1 and S2, no murmurs, no gallops, no JVD appreciated LUNG clear to auscultation. No wheezes, rhonchi or rales ABDOMEN bowel sounds normoactive, no bruits, soft, non-tender, non-distended Back: No CVA tenderness EXTREMITIES Extremities normal, No deformities, No skin discoloration, and No edema SKIN Skin color, texture, turgor normal, no suspicious rashes or lesions to exposed skin Anxiety Screening Never done Hepatitis B Vaccine(1 of 3 - 19+ 3-dose series) Never done Medicare Advantage Annual Wellness Visit Never done Influenza Vaccine(1) due on 03/09/2025 Mammogram Screening due on 09/24/2025 Cervical Cancer Screening due on 11/10/2025 Annual PCP Team Chronic Disease Visit due on 02/05/2026 Diabetes Screening due on 08/06/2027 Lipid Screening due on 02/03/2029 DTaP,Tdap,Td Vaccine(2 - Td or Tdap) due on 10/01/2029 Colorectal Cancer Screening due on 11/29/2031 Hepatitis C Screening Completed HIV Screening Completed 1. Acute pyelonephritis (N10) - Recent ER visit on the for acute pyelonephritis; received one dose of Keflex in the hospital, with a delay of 2-3 days before starting the full course of antibiotics at home. - Currently taking Keflex; reports improvement in urinary symptoms, no hematuria or dysuria, but ongoing urinary frequency and a subjective low-grade fever. - No back or abdominal pain; no new GI symptoms. - Advised to complete the entire course of antibiotics even if symptoms resolve. - Instructed to monitor for and seek emergency care if experiencing fevers, back or abdominal pain, dysuria, or vomiting, as these may indicate treatment failure. - Follow-up with Dr. Hsu on 03/02 at 1:00 PM for routine evaluation. Lydia Gonzalez APRN.CNP Prescription instructions reviewed with patient as applicable. Patient advised if symptoms do not improve or if symptoms worsen sooner, to contact their primary care physician. Potential red flag symptoms discussed with the patient. Reviewed appropriate action plan to take if red flag symptoms occur. Patient agreeable to treatment plan. 21911 OVERALL COMPLEXITY Problem Complexity: Moderate Data Level: Straightforward Risk Level: Moderate Overall MDM complexity (2/3 must be met or exceeded): Moderate PROBLEMS SECTION: 1. Acute pyelonephritis - Acute illness with systemic symptoms One acute illness with systemic symptoms (Moderate complexity) Problem complexity level: Moderate DATA SECTION: - Review of prior external note(s) from each unique source: - Review of the result(s) of each unique test: - Ordering of each unique test: - Assessment requiring an independent historian(s): - Independent interpretation of a test performed by another physician/other qualified health day care aide: - Discussion of management or test interpretation with external physician/other qualified health day care aide/appropriate source: Data complexity level: Minimal; minimal or none RISKS SECTION: Prescription drug management (continuation and completion of Keflex for acute pyelonephritis) - Moderate complexity Patient education on warning signs and when to seek emergency care - Minimal complexity Risks complexity level (highest from above): Moderate documented in this encounter [facility] 02-01-[address] [facility] 02-01-2025 Radiology Diagnostic study note [facility] Imaging Services [address] [place] [address] Abdomen/Pelvis without Cont MR#: [id number] Acct: [id number] Name: MAXIMUS BRADLEY Rep #: [id number] : 1975 F 49 From: Simi Peters MD PCP: Dr. Isaac Hsu MD Status: REG ER Study:Abdomen/Pelvis without Cont Date of Exa m: 02/01/25 Exam# [id number] Ordering Dr: Amandeep Ivy MD PROCEDURE: ABDOMEN/PELVIS WITHOUT CONT 02/01/2025 REASON FOR EXAM: KIDNEY STONE TECHNIQUE: ABDOMEN/PELVIS WITHOUT CONT Noncontrast technique limits evaluation of the abdominal and pelvic viscera. Coronal and Sagittal reconstruction series were provided. One or more dose reduction techniques were used (e.g., Automated exposure control, adjustment of the mA and/or kV according to patient size, use of iterative reconstruction technique). RADIATION DOSE SUMMARY: CTDlvol: 17 mGy DLP: 878 mGycm COMPARISON: 01/25/21 FINDINGS: Clear lung bases. Heart size within normal limits. Upper abdominal solid organs show no acute findings. No renal stones. No hydronephrosis or ureteral stone. Normal bladder. Possible fibroid uterus. Status post tubal ligation. Normal ovaries. No retroperitoneal or pelvic adenopathy. No free air. Nondistended bowel. Normal appendix. No acute large bowel findings. Lumbar spine degeneration. No acute abdominal wall findings. CT/Abdomen/Pelvis without Cont IMPRESSION: No acute findings Reading Location: [place] [address] CC: Dr. Isaac Hsu MD; Dr. Kain Ivy MD ~ Jack Tamp Operator: Signed [facility] 02-01-2025 Discharge summary Note Date/Time February 01, 2025 9:46pm [facility] Medical Records Department [address] [place] [id number] Emergency Department Summary 02/01/25 MR#: [id number] Acct: [id number] Name: MAXIMUS BRADLEY Rep #:[id number] : 1975 49 From: Kain Ivy MD PCP: Dr. Isaac Hsu MD Status :REG ER Location: ED HPI History of Present Illness Chief Complaint: Flank Pain Detail of Chief Complaint: Left flank pain that radiates anteriorly to the left inguinal area Informant: patient Onset/Context/Timing Onset: Weeks Context: Sudden Onset Timing: Intermittent and Waxes and wanes Quality: Pain Location: Left flank radiating to the left groin Current Severity: Mild Maximum Severity: Severe Worsened by: Nothing Relieved by: Nothing Associated Symptoms Associated Symptoms: Frequency and urgency Narrative Narrative: Patient is a 49-year-old female. She denies history of renal or ureterolithiasis. She is status post tubal ligation. She denies fever, chills night sweats. She denies nausea or vomiting. She reports left flank pain that radiates anterior to the left groin. She does endorse frequency and urgency. She states she may have had some blood. She still menstruates. She states her menses ended the end of last week. They are normal. She has no symptoms of . She has history of pyelonephritis. She denies diarrhea. She denies respiratory symptoms. She denies intolerance to any foods. There isno history of direct or indirect trauma. Prior similar symptoms: No Recent Illness[facility]: [facility] Medical History Thrush Lab test negative for COVID-19 virus Migraines Abdominal pain Developmental disability Anxiety Fibrocystic change of breast Depression hypercholesterolemia HTN (hypertension) Hypothyroid Home Medications ?Medication ?Instructions ?Recorded ?Last Taken ?Type candesartan 16 mg tablet 16 mg PO DAILY 12/12/1512/07 05:00 History levothyroxine 50 mcg tablet 50 mcg PO DAILY 12/12/15 0 12/24/19 05:00 History cholecalciferol (vitamin D3) 50 2 tab PO DAILY 9 Unknown History mcg (2,000 unit) tablet albuterol sulfate 90 mcg/actuation 2 puff inhalation P RN PRN Sob &/Or 12/17/19 12/24/19 05:00 History aerosol inhaler Wheezing escitalopram oxalate 20 mg tablet 20 mg PO DAILY 12/16 Unknown History montelukast 10 mg tablet 10 mg PO QHS 12/17/19 Unknow n History tamsulosin 0.4 mg capsule 0.4 mg PO DAILY 12/17/19 Unk nown History bupropion HCl 300 mg 24 hr tablet, 300 mg PO DAILY Unknown History extended release topiramate 25 mg tablet 25 mg PO QHS 12/23/19 Unknow n History omeprazole 40 mg capsule,delayed 40 mg PO DAILY Unknown History release prednisone 20 mg tablet 60 mg (3 x 20 mg) PO DAILY # 15 tabs 03/01/22 Unknown Rx naproxen 500 mg tablet 500 mg PO BID #14 tabs 08/13 Unknown Rx ondansetron 4 mg disintegrating 4 mg PO Q8H PRN PRN Na usea #10 tabs 10/14/22 Unknown Rx tablet naproxen 500 mg tablet (Naprosyn) 500 mg PO BID PRN pa in #20 tabs 01/17/24 Unknown Rx cephalexin 500 mg capsule 500 mg PO Q6 #40 CAPSULES Unknown Rx Allergy/AdvReac Type Severity Reaction Status Date / Time amphetamine aspartate (From Allergy Itching Verified 02/01/25 20:00 Adderall) amphetamine sulfate (From Allergy Itching Verified 02/01/25 20:00 Adderall) dextroamphetamine saccharate Allergy Itching Verified 02/01/25 20:00 (From Adderall) dextroamphetamine sulfate Allergy Itching Verified 02/01/25 20:00 (From Adderall) sumatriptan (From Imitrex) Allergy Chest Verified 02/01/25 20:00 tightness sumatriptan succinate (From Allergy Chest Verified 02/01/25 20:00 Imitrex) tightness venom-honey bee Allergy Anaphylaxis Verified 02/01/25 20:00 Family History Father Cancer Surgical History History of tubal ligation Status post fine needle aspiration History of esophagogastroduodenoscopy (EGD) History of dilation and curettage Social History household members: family Smoking Status: Never smoker substance use type: does not use ROS ROS ED Constitutional Constitutional ED: Denies chills, fever(s), subjective, sweats or weight loss Eyes Eyes: Denies blurry vision or change in vision ENT ENT ED: Denies rhinorrhea or sore throat Cardiovascular Cardiovascular: Denies chest pain or palpitations Respiratory/Chest Respiratory/Chest: Denies cough, dyspnea or dyspnea on exertion Gastrointestinal Gastrointestinal: Reports abdominal pain; Denies constipation, diarrhea, melena,nausea or vomiting Genitourinary Genitourinary ED: Reports hematuria and urinary frequency; Denies dysuria Musculoskeletal Musculoskeletal: Reports other Details: Left flank pain ; Denies arthralgias or myalgias Integumentary Denies rash Neurologic Neurologic: Denies headache(s) or paresthesias Endocrine Endocrinology: Denies cold intolerance or heat intolerance Hematologic/Lymphatic Hematologic/Lymphatic: Reports systems reviewed and no addt'l complaints, exceptas documented EXAM Physical Exam Const Vital Signs: 02/01/25 20:01 02/01/25 21:03 Temperature 99.1 F 99.1 F Temperature Source Oral Oral Pulse Rate 90 72 Respiratory Rate 16 18 Blood Pressure 142/82 H 117/67 Blood Pressure Mean 102 83 Pulse Ox 96 100 Oxygen Delivery Method Room Air Room Air Positive well nourished and well developed Constitutional Narrative: BMI is 34.1. General Appearance ED: well developed and pallor; Negative for cyanotic, diaphoretic or NAD HEENT Reports moist mucous membranes HEENT Narrative: Head is atraumatic normocephalic. Ears normal. Nares patent. Eyes PERRL and EOMs intact bilaterally General Eye ED: Negative for pale conjunctiva or scleral icterus Neck no lymphadenopathy, supple and no JVD Resp normal respiratory effort and clear to auscultation bilaterally Cardio regular rate, regular rhythm, S1 normal heart sound, S2 normal heart sound and no murmurs GI normal to inspection, nondistended, normoactive bowel sounds, non-tender, non-distended and no masses; Negative for hepatosplenomegaly Back/Spine General Back: CVA tenderness left Extremity normal to inspection General Extremety ED: Negative for edema or tenderness General Extremity: Negative for edema Neuro oriented x3 and CN's II-XII intact bilaterally Sensorium / Orientation: alert Psych mental status grossly normal Skin no rashes or lesions noted, no wounds and skin turgor normal General Skin Exam: pallor; Negative for jaundice MDM MDM MDM Narrative Medical decision making narrative: This may represent atypical presentation of pyelonephritis, obstructing ureteralstone, pain of unknown etiology. Workup included CBC electrolyte panel UA. CT of the abdomen was obtained as well. Lab Data Attestation: I reviewed the patient's lab results. Lab results narrative: White count is slightly elevated 11.6. There is no shift. Urinalysis is remarkable for protein, occult blood and leukoesterase on macro. Negative for nitrites. Micro reveals 0 RBCs and 0 WBCs with 1+ bacteria. Labs: Laboratory Results - last 24 hr 02/01/25 20:35 WBC 11.6 H RBC 4.55 Hgb 12.9 Hct 38.1 MCV 83.7 MCH 28.4 MCHC 33.9 RDW Std Deviation 39.0 RDW Coeff of Al 12.8 Plt Count 479 H MPV 9.5 Immature Gran % (Auto) 0.400 Neut % (Auto) 65.2 Lymph % (Auto) 23.9 Love % (Auto) 7.1 Eos % (Auto) 2.5 Baso % (Auto) 0.9 Absolute Neuts (auto) 7.6 Absolute Lymphs (auto) 2.77 Nucleated RBC % 0 Sodium 139 Potassium 3.8 Chloride 106 Carbon Dioxide 22.4 Anion Gap 11 BUN 8 Creatinine 1.02 Estim Creat Clear Calc 78.65 Est GFR (MDRD) Non-Af 68 BUN/Creatinine Ratio 7.6 L Glucose 70 Calcium 8.9 Urine Color Yellow Urine Clarity Clear Urine pH 6.5 Ur Specific [place] 1.015 Urine Protein 15 H Urine Glucose (UA) Normal Urine Ketones Negative Urine Occult Blood 50 H Urine Nitrite Negative Urine Bilirubin Negative Urine Urobilinogen Normal Ur Leukocyte Esterase 25 H Urine RBC 0 SEEN Urine WBC 0 SEEN Ur Squamous Epith Cells 0-5 SEEN Amorphous Sediment 1+ Urine Bacteria 1+ Urine Mucus 0 SEEN Radiography Diagnostic Testing: Clinical Impression(s) from Imaging Studies Abdomen/Pelvis CT 02/01/25 20:25 IMPRESSION: No acute findings Reading Location: [place] [address] CT of the abdomen reveals no renal calculi. Question of a distal left ureteral calculus versus phlebolith. Awaiting formal read by radiologist. Suspect it yaneth phlebolith. Treatment and Re-Evaluation :: Since there is no evidence of obstructing stone and patient has flank pain with bacteria we will treat with antibiotics. Culture was sent. Discharge Plan Triage Chief Complaint: Flank Pain ED Provider: Kain Ivy Dx/Rx/DC Orders Clinical Impression: Pyelonephritis of left kidney, Elevated blood-pressure reading without diagnosis of hypertension, Leukocytosis Instructions: ED Pyelonephritis, Female (Adult) Prescriptions: New cephalexin 500 mg capsule 500 mg PO Q6 Qty: 40 0RF No Action montelukast 10 mg tablet 10 mg PO QHS Patient Comments: TAKE 1 TABLET BY MOUTH EVERYDAY AT BEDTIME escitalopram oxalate 20 mg tablet 20 mg PO DAILY Patient Comments: TAKE 1 TABLET BY MOUTH EVERY DAY albuterol sulfate 90 mcg/actuation HFA aerosol inhaler 2 puff INHALATION PRN PRN (Reason: Sob &/Or Wheezing) Patient Comments: INHALE 2 PUFFS BY MOUTH INSTRUCTED EVERY 4 HOURS NEEDED FOR WHEEZING/SHORTNESS OF BREATH. tamsulosin 0.4 mg capsule 0.4 mg PO DAILY Patient Comments: TAKE 1 CAPSULE BY MOUTH EVERYDAY AT BEDTIME omeprazole 40 mg capsule,delayed release(DR/EC) 40 mg PO DAILY Patient Comments: TAKE 1 CAPSULE BY MOUTH EVERY [...] 60 mg PO DAILY Qty: 15 0RF naproxen 500 mg tablet 500 mg PO BID Qty: 14 0RF ondansetron 4 mg tablet,disintegrating 4 mg PO Q8H PRN PRN (Reason: Nausea) Qty: 10 0RF naproxen [Naprosyn] 500 mg tablet 500 mg PO BID PRN (Reason: pain) Qty: 20 0RF Primary Care Provider: Isaac Hsu Referrals: Isaac Hsu MD [Primary Care Provider] - 3-5 Days Activity Restrictions/Additional Instructions: 1. Take antibiotics until gone 2. If you are not better within 3 days follow-up with Dr. Hsu. 3. Drink plenty of fluids Print Language: Serbian Disposition Disposition: Home, Self Care What to do if you have Problems For any increased pain, shortness of breath, bleeding, nausea or vomiting, chestpain, or any unexpected problems, contact your Primary Care Provider. Call [facility] ([phone]) or report to the closest Emergency Room. Call 911 if necessary. 02/01/252145 <Electronically signed by Kain Ivy MD> Cosigner Signature (if applicable): CC: Dr. Isaac Hsu MD ~ Signed [facility] Work Phone: [phone] 332-242007-03-2025 Telephone encounter Note* Telephone Encounter - Shraddha Tucker RN - 01/08/2025 11:13 AM EDT The patient has been identified by name [...] Tucker RN January 08, 2025 11:14 AM [facility]07-03-2025 Miscellaneous Notes* Telephone Encounter - Shraddha Tucker RN - 01/08/2025 11:13 AM EDT The patient has been identified by name [...] 08, 2025 11:14 AM documented in this encounterC[facility] Telephone encounter Note * Telephone Encounter - Bernie Tomlinson RN - 12/12/2024 3:25 PM EDT Prescription Refill Information The patient has been [...] Tomlinson RN December 12, 2024 3:26 PM [facility]06-06-2025 Miscellaneous Notes* Telephone Encounter - Bernie Tomlinson RN - 12/12/2024 3:25 PM EDT Prescription Refill Information The patient has been [...] 12, 2024 3:26 PM documented in this encounterC[facility] Miscellaneous Notes* Telephone Encounter - Shraddha Tucker RN - 12/09/2024 10:04 AM EDT The patient has been identified by name [...] 09, 2024 10:04 AM documented in this encounterC[facility] Telephone encounter Note * Telephone Encounter - Shraddha Tucker RN - 12/09/2024 10:04 AM EDT The patient has been identified by name [...] Tucker RN December 09, 2024 10:04 AM [facility]05-14-2025 Telephone encounter Note* Telephone Encounter - Katty Nava APRN.CNP - 11/19/2024 10:10 AM EDT Script sent. [facility]05-14-2025 Miscellaneous Notes* Telephone Encounter - Katty Nava APRN.CNP - 11/19/2024 10:10 AM EDT Script sent. * Telephone Encounter - Celestina Dickerson RN - 11/19/2024 9:49 AM EDT Patient called back and instructions given. Patient scheduled for 12/22/24. Patient asking for script to be sent in to [place] for Prilosec. Celestina Dickerson RN * Telephone Encounter - Ana Raymundo RN - 11/19/2024 9:24 AM EDT Tried to contact patient by phone. Unable to leave message and no mychart activated.Ana Raymundo RN documented in this encounterC[facility] Telephone encounter Note * Telephone Encounter - Celestina Dickerson RN - 11/19/2024 9:49 AM EDT Patient called back and instructions given. Patient scheduled for 12/22/24. Patient asking for script to be sent in to [place] for Prilosec. Celestina Dickerson RN [facility]05-14-2025 Telephone encounter Note* Telephone Encounter - Ana Raymundo RN - 11/19/2024 9:24 AM EDT Tried to contact patient by phone. Unable to leave message and no mychart activated.Ana Raymundo RN [facility]05-06-2025 Miscellaneous Notes* Telephone Encounter - Marcie Mireles RN - 11/11/2024 11:58 AM EDT The patient has been identified by name [...] 11, 2024 12:14 PM documented in this encounterC[facility] Telephone encounter Note * Telephone Encounter - Marcie Mireles RN - 11/11/2024 11:58 AM EDT The patient has been identified by name [...] Mireles RN November 11, 2024 12:14 PM [facility]05-06-2025 Telephone encounter Note* Telephone Encounter - Ema Abdullahi APRN.CNP - 11/11/2024 7:22 AM EDT +trich- flagyl sent. Please notify pt. Ema Abdullahi APRN.CNP [facility]05-06-2025 Miscellaneous Notes* Telephone Encounter - Ema Abdullahi APRN.CNP - 11/11/2024 7:22 AM EDT +trich- flagyl sent. Please notify pt. Ema Abdullahi APRN.CNP documented in this encounterC[facility] Clinic [facility]25 NoteHNO ID: [id number] Author: EAM ABDULLAHI APRN.CNP Service: ? Author Type: Nurse Practitioner Type: Progress Notes Filed: 11/10/2024 14:33 Note Text: Patient declined materials management clerk. Maximus is a 49 year old who [...] discussed with the Patient or Patient's Authorized Nipple Maker. As applicable, any other physician, advance practice provider, medical student, or other health professional student that will be observing or involved in the sensitive examination for educational or training purposes was discussed with the Patient or Authorized Nipple Maker. The Patient or Authorized Nipple Maker has agreed to proceed with the sensitive examination. (Sensitive examination includes inspection and/or palpation of the breasts, pelvis, prostate and anorectal regions). EXAM: BP 124/78 Ht 5' 4.173 (1.63m) Wt 211 lb 12.8 oz (96.1kg) [...] external genitalia normal, normal Bartholin's glands, urethra, [place]'s glands, no vulvar lesions, no cervical lesions, [...] notify patient of test results. Ema Abdullahi APRN.BHARATHI Medical Decision Making: Problems: Low: Acute, uncomplicated illness or injury Data: Unique test(s) ordered: 3+ Risk: Low: Low risk from testing/treatment Medical Decision Making Level: 3 - [facility] History of Present illness Narrative* Ema Abdullahi APRN.MOTION STUDY ENGINEER - 11/10/2024 1:33 PM EDT Patient declined materials management clerk. Maximus is a 49 year old who [...] discussed with the Patient or Patient's Authorized Nipple Maker. As applicable, any other physician, advance practice provider, medical student, or other health professional student that will be observing or involved in the sensitive examination for educational or training purposes was discussed with the Patient or Authorized Nipple Maker. The Patient or Authorized Nipple Maker has agreed to proceed with the sensitive examination. (Sensitive examination includes inspection and/or palpation of the breasts, pelvis, prostate and anorectal regions). EXAM: BP 124/78 Ht 5' 4.173 (1.63m) Wt 211 lb 12.8 oz (96.1kg) [...] external genitalia normal, normal Bartholin's glands, urethra, [place]'s glands, no vulvar lesions, no cervical lesions, [...] Level: 3 - Low documented in this encounterC[facility]25 NoteHNO ID: [id number] Author: ELLA RILEY APRN.CNP Service: ? Author Type: Nurse Practitioner [...] history is provided by the patient. No bookkeeping clerks supervisor was used. Vaginal Problem Review of Systems [...] warts Reflux esophagitis Thrombocytosis Urinary retention Pablo Murphy PAST SURGICAL HISTORY Procedure Laterality Date BX [...] was instructed to ge (more content not included)...[facility]05[facility]05-2025 History of Present illness Narrative* Ella Riley APRN.MOTION STUDY ENGINEER - 11/10/2024 11:33 AM EDT [facility] Subjective Maximus Bradley is [...] history is provided by the patient. No bookkeeping clerks supervisor was used. Vaginal Problem Review of Systems [...] is no right CVA tenderness, left CVA tendernessor guarding. Neurological: Mental Status: She is alert. [...] CURETTAGE DX&/THER NONOBSTETRIC EGD 10/24/2024 EGD W/O [facility] SPEC VARICIES INJ 01/30/2022 ESOPHAGOGASTRODUODENOSCOPY TRANSORAL DIAGNOSTIC [...] as directed. at the onset of headache; ifheadache returns or does not fully resolve, the [...] instructed to get set up with a APPLICATION TECHNICAL DESIGNER. Patientagreeable to care plan. If urine culture does come back positive please prescribe accordingly. Ella Riley APRN.BHARATHI History and Record Review External record(s) reviewed: no prior records. Disposition The patient was discharged. Procedures documented in this encounterC[facility]04-22-[facility] Instructions* Patient Instructions* Leny Hsu MD - 10/28/2024 2:54 PM EDT Please start the 75 mg Effexor 3 times per day tomorrow. You will not take 100 mg tablets starting tomorrow. [facility] - [facility] Grief [facility] Grief Recovery Support Groups Visit website for more information and locations: [email or web address].[email or web address] [facility] [address], [address] [place] [id number] [facility] [address] [place] [phone] [facility] Therapy/Counseling [facility] [address] [place] [id number] [facility] [address] [place] [id number] [address] [address] [facility] [address] [place] [address] [facility] [address] [place] [address] [facility] [address] [place], [place] [address] [employer] [address] [place] [address] [place] [address] documented in this encounterC[facility]04-22-2025 NoteHNO ID: [id number] Author: LENY HSU MD Service: ? Author [...] 1 more week. cyanocobalamin (more content not included)...[facility] 10-28-2024 History of Present illness Narrative* Leny Hsu MD - 10/28/2024 2:50 PM EDT Chief Complaint Patient presents with: Follow Up: Patient requesting something due to increased anxiety- related to issues with her mom and her passing HPI Maximus Bradley is a 49 year old female who presents here today for Above Complaints.. Patient states that her mother on 10/13 from stroke. Anxiety and depression symptoms havebeen worse since her passing. Patient has been [...] days - Nearly every day - More thanhalf the days Feeling tired or having little energy Nearly every day - Nearly every day - More than half the days Poor appetite or overeating Several days - Nearly every day - Nearly every day Feeling bad about yourself - or that you are a failure or have let yourself or your family down Notat all - - - Nearly every day [...] way Not at all - - - Notat all PHQ-9 Score 5 - - - [...] as directed. at the onset of headache; ifheadache returns or does not fully resolve, the [...] 4 hours asneeded for wheezing/shortness of breath. venlafaxine (EFFEXOR) 100 [...] 19+ 3-dose series) due on 01/13/2025 Covid-19 Vaccine(2023- season) due on 09/02/2025 Cervical Cancer Screening [...] her mother passed. I offered my condolences andwill increase her dose of Effexor to maximum. [...] TABLET Leny Hsu MD documented in this encounterC[facility]04-21-2025 Telephone encounter Note * Telephone Encounter - Maya Hernandez RN - 10/27/2024 12:59 PM EDT Pt scheduled with Dr Hsu tomviviana at 220. [facility]04-21-2025 Miscellaneous Notes* Telephone Encounter - Maya Hernandez RN - 10/27/2024 12:59 PM EDT Pt scheduled with Dr Hsu tomviviana at 220. * Telephone Encounter - Leny Hsu MD - 10/27/2024 10:50 AM EDT Recommend OV to discuss. * Telephone Encounter - Tamica Gamez LPN - 10/27/2024 10:38 AM EDT Patient calling asking if she could have her depression medication dose increased? Patient asking if she would need an appt first? Patient said her mother on October 13. Patient said she is taking Venlafaxine 100 mg one tablet twice daily. Please advise documented in this encounterC[facility]04-[facility]-2025 Telephone encounter Note * Telephone Encounter - Leny Hsu MD - 10/27/2024 10:50 AM EDT Recommend OV to discuss. [facility]04-21-2025 Telephone encounter Note* Telephone Encounter - Tamica Gamez LPN - 10/27/2024 10:38 AM EDT Patient calling asking if she could have her depression medication dose increased? Patient asking if she would need an appt first? Patient said her mother on October 13. Patient said she is taking Venlafaxine 100 mg one tablet twice daily. Please advise [facility]04-18-2025 Note* Discharge Instr - Nursing - Jannette Marrero RN - 10/24/2024 12:19 PM EDT The patient received a copy of EGD discharge instructions that contain information for how to contact the physician who performed the procedure and when to seek medical care. [facility]04-18-2025 Miscellaneous Notes* Discharge Instr - Nursing - Jannette Marrero RN - 10/24/2024 12:19 PM EDT The patient received a copy of EGD discharge instructions that contain information for how to contact the physician who performed the procedure and when to seek medical care. documented in this encounterCleveland [facility]04-18-[facility]25 History and physical note * Kirk Cast MD - 10/24/2024 12:00 PM EDT HISTORY AND PHYSICAL Maxiums Bradley 1975 REFERRING PHYSICIAN: Jordin Dickerson MD [...] as directed. at the onset of headache; ifheadache returns or does not fully resolve, the [...] 4 hours asneeded for wheezing/shortness of breath. venlafaxine (EFFEXOR) 100 [...] hard palpable lesions are identified axillary exam isnegative bilaterally. Supraclavicular exam is negative bilaterally LABORATORY [...] DATE: October 24, 2024 TIME: 11:22 AM [facility]04-18-2025 History and physical note* Kirk Cast MD - 10/24/2024 12:00 PM EDT HISTORY AND PHYSICAL Maximus Vang Kirk 1975 [...] DILATION & CURETTAGE DX&/[facility] 01/30/2022 ESOPHAGOGASTRODUODENOSCOPY TRANSORAL DIAGNOSTIC [...] as directed. at the onset of headache; ifheadache returns or does not fully resolve, the [...] 4 hours asneeded for wheezing/shortness of breath. venlafaxine (EFFEXOR) 100 [...] hard palpable lesions are identified axillary exam isnegative bilaterally. Supraclavicular exam is negative bilaterally LABORATORY [...] 2024 TIME: 11:22 AM documented in this encounterC[facility]04[facility] Telephone encounter Note * Telephone Encounter - Elmira Mayorga MSW - 10/22/2024 11:[address] Hsu phone note for 10/20 regarding social work response to social work consult. [facility]04-16-2025 Miscellaneous Notes* Telephone Encounter - Elmira Mayorga MSW - 10/22/2024 11:[address] Hsu phone note for 10/20 regarding social work response to social work consult. documented in this encounterC[facility]04[facility] Telephone encounter Note * Telephone Encounter - Olivia Hunt LPN - 10/16/2024 3:05 PM EDT Electronic PA rec'd and completed for topamax. This was approved. Prior authorization approved Payer: [facility] Note from payer: Your PA request for [id number] was approved for 365 days. The PA# assigned is [id number]. Approval Details Authorization number: [id number] Authorized from October 16, 2024 to October [...] to its destination. To be filled at: [facility] [id number] [place] [address] - [address] - [phone] [facility]04-10-2025 Miscellaneous Notes* Telephone Encounter - Olivia Hunt LPN - 10/16/2024 3:05 PM EDT Electronic PA rec'd and completed for topamax. This was approved. Prior authorization approved Payer: [facility] Note from payer: Your PA request for [id number] was approved for 365 days. The PA# assigned is [id number]. Approval Details Authorization number: [id number] Authorized from October 16, 2024 to October [...] to its destination. To be filled at: [facility] - [address] [place] [address] - [address] - [phone] documented in this encounterC[facility]04[facility] Telephone encounter Note * Telephone Encounter - Tamica Gamez LPN - 10/16/2024 1:33 PM EDT The patient has been identified by name [...] Gamez LPN October 16, 2024 1:34 PM [facility]04-10-2025 Miscellaneous Notes* Telephone Encounter - Tamica Gamez LPN - 10/16/2024 1:33 PM EDT The patient has been identified by name [...] 16, 2024 1:34 PM documented in this encounterC[facility] Clinic [facility]03-24-2025 NoteHNO ID: [id number] Author: KIRK CAST MD Service: ? Author [...] masses, asymmetry or lymph (more content not included)...[facility] 09-29-2024 History of Present illness Narrative* Kirk Cast MD - 09/29/2024 1:20 PM EDT HISTORY AND PHYSICAL Maximus Bradley 1975 REFERRING [...] as directed. at the onset of headache; ifheadache returns or does not fully resolve, the [...] 4 hours asneeded for wheezing/shortness of breath. venlafaxine (EFFEXOR) 100 [...] hard palpable lesions are identified axillary exam isnegative bilaterally. Supraclavicular exam is negative bilaterally LABORATORY [...] Cast III, MD documented in this encounterC[facility] Clinic [facility]03-[facility] History of Present illness Narrative* Mira Natarajan RDMS - 09/24/2024 11:30 AM EDT Radiology Service Progress Note PATIENT NAME: [...] Assigned female at . status: : No status:NO. PATIENT RELEVANT IMPLANT DATA REVIEWED: Not Applicable PATIENT PRESENTS WITH AN IMPLANTABLE OR ATTACHED AIRPLANE PILOT HELPER: No RADIOLOGY DEPARTMENT: Ultrasound PERIPHERAL IV DATA: Not applicable SIGNED BY: Mira Natarajan RDMS September 24, 2024 2:04 PM documented in this encounterC[facility] Clinic [facility]03-19-2025 NoteHNO ID: [id number] Author: MIRA NATARAJAN RDMS Service: ? Author Type: Structural Engineer Type: Progress Notes Filed: 09/24/2024 14:04 Note [...] PATIENT PRESENTS WITH AN IMPLANTABLE OR ATTACHED AIRPLANE PILOT HELPER: No RADIOLOGY DEPARTMENT: Ultrasound PERIPHERAL IV DATA: Not applicable SIGNED BY: Mira Natarajan RDMS September 24, 2024 2:04 [facility]03-19-2025 History of Present illness Narrative* Avinash Villaseñor, Mammo Tech - 09/24/2024 11:00 AM EDT Radiology Service Progress Note PATIENT NAME: [...] Assigned female at . status: : No status:NO. PATIENT RELEVANT IMPLANT DATA REVIEWED: Not Applicable PATIENT PRESENTS WITH AN IMPLANTABLE OR ATTACHED AIRPLANE PILOT HELPER: No RADIOLOGY DEPARTMENT: Mammography PERIPHERAL IV DATA: Not applicable SIGNED BY: Jaimee Prajapati September 24, 2024 10:51 AM documented in this encounterC[facility] Clinic [facility]03-19-2025 NoteHNO ID: [id number] Author: AVINASH VILLASEÑOR Mammo Tech Service: ? Author Type: Structural Engineer Type: Progress Notes Filed: 09/24/2024 10:51 Note [...] PATIENT PRESENTS WITH AN IMPLANTABLE OR ATTACHED AIRPLANE PILOT HELPER: No RADIOLOGY DEPARTMENT: Mammography PERIPHERAL IV DATA: Not applicable SIGNED BY: Jaimee Prajapati September 24, 2024 10:51 [facility]03-12-2025 Telephone encounter Note* Telephone Encounter - Shraddha Tucker RN - 09/17/2024 9:53 AM EDT The patient has been identified by name [...] Tucker RN September 17, 2024 9:53 AM [facility]03-12-2025 Miscellaneous Notes* Telephone Encounter - Shraddha Tucker RN - 09/17/2024 9:53 AM EDT The patient has been identified by name [...] 17, 2024 9:53 AM documented in this encounterC[facility] Clinic [facility]02-26[facility] Telephone encounter Note * Telephone Encounter - Maya Hernandez RN - 09/03/2024 11:08 AM EST Pt called and is notified of providers results and instructions. Pt voices understanding. Maya Hernandez RN [facility]02-26-2025 Miscellaneous Notes* Telephone Encounter - Maya Hernandez RN - 09/03/2024 11:08 AM EST Pt called and is notified of providers results and instructions. Pt voices understanding. Maya Hernandez RN * Telephone Encounter - Sandhya Watts LPN - 09/03/2024 10:51 AM EST Attempted to reach pt by phone without success. No voice mail. Try later. Sandhya Watts LPN * Telephone Encounter - Sandhya Watts LPN - 09/03/2024 10:49 AM EST ----- Message from Leny Hsu MD sent at 09/03/2024 7:05 AM EST ----- Thyroid testing normal. No change in regimen. documented in this encounterCleveland Clinic [facility]02-[facility] Telephone encounter Note * Telephone Encounter - Sandhya Watts LPN - 09/03/2024 10:51 AM EST Attempted to reach pt by phone without success. No voice mail. Try later. Sandhya Watts LPN [facility]02-26-2025 Telephone encounter Note* Telephone Encounter - Sandhya Watts LPN - 09/03/2024 10:49 AM EST ----- Message from Leny Hsu MD sent at 09/03/2024 7:05 AM EST ----- Thyroid testing normal. No change in regimen. [facility]02-25-2025 NoteHNO ID: [id number] Author: LENY HSU MD Service: ? Author [...] Substance Use Topics Alcoh (more content not included)...[facility]02-25-2025 History of Present illness Narrative* Leny Hsu MD - 09/02/2024 12:50 PM EST Chief Complaint Patient presents with: Follow Up [...] TSH normal last October. Complaining of constipation andweight gain. Would like repeat labs. Anxiety and [...] 4 hours asneeded for wheezing/shortness of breath. venlafaxine (EFFEXOR) 100 [...] Vaccine(1) due on 03/09/2024 Covid-19 Vaccine( - 2023- season) Never done Mammogram Screening due on [...] Abs Lymph 1.00 - 4.00 k/uL 2.45 Love% % 7.5 Abs Love <0.87 k/uL 0.77 Eosin% % 3.3 Abs [...] (AFLURIA, FLULAVAL, FLUVIRIN, FLUZONE) documented in this encounterCleveland Clinic [facility]02-[facility]-2025 NotePatient Outreach (FAMPWS) MAXIMUS BRADLEY ([id number]) 1975 F Date Time Provider Department 09/02/24 [...] for screening mammogram for breast cancer [Z12.31] Order(s):[facility] SCREENING [facility] [[id number]] Order #: [id number] FUTURE Prescriptions as of 10/03/2024 - VITAMIN [...] 01/14/2024 Iron deficiency [E61.1] Encounter Status:Closed by MATILDA, PRODUSER on 10/03/24[facility] 08-26-2024 Telephone encounter Note* Telephone Encounter - Terry Esteves RN - 08/26/2024 11:49 AM EST The patient has been identified by name [...] Esteves RN August 26, 2024 11:50 AM [facility]02-18-2025 Miscellaneous Notes* Telephone Encounter - Terry Esteves RN - 08/26/2024 11:49 AM EST The patient has been identified by name [...] 26, 2024 11:50 AM documented in this encounterC[facility] Clinic [facility]02-12-2025 Telephone encounter Note * Telephone Encounter - Ruthie Burnham LPN - 08/20/2024 12:58 PM EST Attempted to contact patient but mobile recording she was unavailable and to try back later. Ruthie Burnham LPN [facility]02-12-2025 Miscellaneous Notes* Telephone Encounter - Ruthie Burnham LPN - 08/20/2024 12:58 PM EST Attempted to contact patient but mobile recording she was unavailable and to try back later. Ruthie Burnham LPN * Telephone Encounter - Leny Hsu MD - 08/20/2024 11:56 AM EST No showed OV yesterday. Needs to reschedule. * Telephone Encounter - Maya Hernandez RN - 08/20/2024 9:39 AM EST The patient has been identified by name [...] 20, 2024 9:39 AM documented in this encounterC[facility]02-[facility] Telephone encounter Note * Telephone Encounter - Leny Hsu MD - 08/20/2024 11:56 AM EST No showed OV yesterday. Needs to reschedule. [facility]02-12-2025 Telephone encounter Note* Telephone Encounter - Maya Hernandez RN - 08/20/2024 9:39 AM EST The patient has been identified by name [...] Hernandez RN August 20, 2024 9:39 AM [facility]02-03-2025 Telephone encounter Note* Telephone Encounter - Marya Long MA - 08/11/2024 10:09 AM EST Pt notified and voiced understanding. Marya Long MA [facility]02-03-2025 Miscellaneous Notes* Telephone Encounter - Marya Long MA - 08/11/2024 10:09 AM EST Pt notified and voiced understanding. Marya Long MA * Telephone Encounter - Marya Long MA - 08/11/2024 10:08 AM EST ----- Message from Leny Hsu MD sent at 08/07/2024 8:49 PM EST ----- Xray of the abdomen is negative for signs of bowel obstruction. Small to moderate amount of stool noted. Continue treatment as discussed in office. * Telephone Encounter - Keyla Arteaga LPN - 08/08/2024 2:27 PM EST Phoned patient and she is not available. Keyla Arteaga LPN * Telephone Encounter - Keyla Arteaga LPN - 08/08/2024 2:25 PM EST ----- Message from Leny Hsu MD sent at 08/07/2024 8:49 PM EST ----- Xray of the abdomen is negative for signs of bowel obstruction. Small to moderate amount of stool noted. Continue treatment as discussed in office. documented in this encounterC[facility] Clinic [facility]02-03-2025 Telephone encounter Note * Telephone Encounter - Marya Long MA - 08/11/2024 10:08 AM EST ----- Message from Leny Hsu MD sent at 08/07/2024 8:49 PM EST ----- Xray of the abdomen is negative for signs of bowel obstruction. Small to moderate amount of stool noted. Continue treatment as discussed in office. [facility]01-31-2025 Telephone encounter Note* Telephone Encounter - Keyla Arteaga LPN - 08/08/2024 2:27 PM EST Phoned patient and she is not available. Keyla Arteaga LPN [facility]01-31-2025 Telephone encounter Note* Telephone Encounter - Keyla Arteaga LPN - 08/08/2024 2:25 PM EST ----- Message from Leny Hsu MD sent at 08/07/2024 8:49 PM EST ----- Xray of the abdomen is negative for signs of bowel obstruction. Small to moderate amount of stool noted. Continue treatment as discussed in office. [facility]01-31-2025 Telephone encounter Note* Telephone Encounter - Maryam Grace - 08/08/2024 10:02 AM EST Pt called back and was informed of Jerson message. Pt voiced understanding and had not further questions at this time [facility]01-31-2025 Miscellaneous Notes* Telephone Encounter - Maryam Grace - 08/08/2024 10:02 AM EST Pt called back and was informed of Jerson message. Pt voiced understanding and had not further questions at this time * Telephone Encounter - Ileana Wright LPN - 08/08/2024 8:56 AM EST Pts voice mail is full need to try back again. * Telephone Encounter - Leny Hsu MD - 08/07/2024 9:02 PM EST Normal labs aside from high platelets which have been stable for years. Iron levels and ferritin improved. May stop iron supplement and eat more iron rich foods. documented in this encounterC[facility] Clinic [facility]01-[facility]25 Telephone encounter Note * Telephone Encounter - Ileana Wright LPN - 08/08/2024 8:56 AM EST Pts voice mail is full need to try back again. [facility]01-30-2025 Telephone encounter Note* Telephone Encounter - Leny Hsu MD - 08/07/2024 9:02 PM EST Normal labs aside from high platelets which have been stable for years. Iron levels and ferritin improved. May stop iron supplement and eat more iron rich foods. [facility]01-29-2025 History of Present illness Narrative* Maria De Jesus Canales Tech - 08/06/2024 12:20 PM EST Radiology Service Progress Note PATIENT NAME: [...] Assigned female at . status: : No status:NO. PATIENT RELEVANT IMPLANT DATA REVIEWED: Not Applicable PATIENT PRESENTS WITH AN IMPLANTABLE OR ATTACHED AIRPLANE PILOT HELPER: No RADIOLOGY DEPARTMENT: General X-ray: Exam(s) Completed: Abdomen X-Ray: Abdomen PERIPHERAL IV DATA: Not applicable SIGNED BY: Robbi Riddle August 06, 2024 12:19 PM documented in this encounterCleveland Clinic [facility]01-29-2025 NoteHNO ID: [id number] Author: MARIA DE JESUS CANALES Tech Service: [...] PATIENT PRESENTS WITH AN IMPLANTABLE OR ATTACHED AIRPLANE PILOT HELPER: No RADIOLOGY DEPARTMENT: General X-ray: Exam(s) Completed: Abdomen X-Ray: Abdomen PERIPHERAL IV DATA: Not applicable SIGNED BY: Robbi Riddle August 06, 2024 12:19 [facility]01-29-2025 Instructions* Patient Instructions* Leny Hsu MD - 08/06/2024 11:44 AM EST Please take miralax 2 times per day until stools are 1-2 times per day and soft, then back down to daily. Call in 2-3 days with an update on your pain. documented in this encounterC[facility] Clinic [facility]01-29-2025 NoteHNO ID: [id number] Author: LENY HSU MD Service: ? Author [...] BMI 35.12 kg/m? Genera (more content not included)...[facility]01-29-2025 History of Present illness Narrative* Leny Hsu MD - 08/06/2024 10:48 AM EST Chief Complaint Patient presents with: Follow Up: [...] DILATION & CURETTAGE DX&/THER NONOBSTETRIC EGD W/O [facility] SPEC VARICIES INJ 01/30/2022 ESOPHAGOGASTRODUODENOSCOPY TRANSORAL DIAGNOSTIC [...] 4 hours asneeded for wheezing/shortness of breath. venlafaxine (EFFEXOR) 100 [...] 08/15/2023 Influenza Vaccine(1) due on 03/09/2024 Covid-19 Vaccine(1 - season) Never done Mammogram Screening due [...] Lymph 1.00 - 4.00 k/uL 2.26 2.75 Love% % 6.5 6.7 Abs Love <0.87 k/uL 0.65 0.72 Eosin% % 3.0 [...] and imaging to evaluate for constipation, bowel obstruction,infection, inflammation. May use OTC analgesics PRN for [...] is having 1-2 soft stools per day, thenmay reduce to daily dosage. Increase fiber in diet. Call if not improving in 2-3 days. Leny Hsu MD documented in this encounterC[facility] Clinic [facility]01-[facility]-2025 Telephone encounter Note * Telephone Encounter - Shraddha Tucker RN - 07/23/2024 11:24 AM EST The patient has been identified by name [...] Tucker RN July 23, 2024 11:25 AM [facility]01-15-2025 Miscellaneous Notes* Telephone Encounter - Shraddha Tucker RN - 07/23/2024 11:24 AM EST The patient has been identified by name [...] 23, 2024 11:25 AM documented in this encounterC[facility] Clinic [facility]12[facility] Telephone encounter Note * Telephone Encounter - Sandhya Watts LPN - 06/25/2024 11:27 AM EST The patient has been identified by name [...] Watts LPN June 25, 2024 11:27 AM [facility]12-18-2024 Miscellaneous Notes* Telephone Encounter - Sandhya Watts LPN - 06/25/2024 11:27 AM EST The patient has been identified by name [...] 25, 2024 11:27 AM documented in this encounterC[facility] Clinic [facility]11-[facility]-2024 Telephone encounter Note * Telephone Encounter - Sandhya Watts LPN - 05/27/2024 4:45 PM EST The patient has been identified by name [...] Watts LPN May 27, 2024 4:45 PM [facility]11-19-2024 Miscellaneous Notes* Telephone Encounter - Sandhya Watts LPN - 05/27/2024 4:45 PM EST The patient has been identified by name [...] 27, 2024 4:45 PM documented in this encounterC[facility] Clinic [facility]11-[facility]-2024 Instructions* Patient Instructions* Kristy Asencio PA-C - 05/13/2024 10:42 AM EST Follow up with primary care for 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 Author Type: Physician Machine Designer Type: Progress Notes Filed: 05/13/2024 11:20 Note Text: [facility] Follow up CC: [...] repeat in 10 years (more content not included)...[facility]11-05-2024 History of Present illness Narrative* Kristy Asencio PA-C - 05/13/2024 10:07 AM EST Images from the original note were not included. [facility] Follow up CC: [...] water intake and decreasing caffeinated beverages to preventlightheadedness. Patient was found to have low B12 and was given instructions on how to supplement this. Patient also concerned with episodes of shaking, states this only occurs when she does not eat all day and encouraged her to eat throughout the day to prevent this. Also had concerns over weight gainand encouraged to follow-up with her primary care [...] pain. SKIN:Negative for lesions, rash, and itching. HEMATOLOGIC/LYMPHATIC/IMMUNOLOGIC:Negative for prolonged bleeding, bruising easily or swollen [...] last appointment, notes that a few months agoshe had a kink in her neck that lasted for about a week and she had a daily headache with this, butotherwise is headache free. Compliant with Topamax 100 [...] headaches, no knowledge of this causing headaches aftershe stopped it. Does report chronic leg pain, encouraged her to follow-up with primary for this. Plan: All options for treatment discussed. Preventative: Topamax 100 mg Abortive: Amerge Follow-up: 6 months I spent a total of 30 minutes on the date of the service which included preparing to see the patient, vcxo-av-qriv patient care, completing clinical documentation, obtaining and/or reviewing separately obtained history, performing a medically appropriate examination, counseling and educating the pat ient/family/caregiver, and ordering medications, tests, or procedures. Kristy Asencio PA-C General Neurology [address] [place]. [address] Appointment: [phone] documented in this encounterCleveland Clinic [facility]10-[facility]24 Telephone encounter Note * Telephone Encounter - Ileana Wright LPN - 05/01/2024 3:43 PM EDT Prescription Refill Information The patient has been [...] Wright LPN May 01, 2024 3:44 PM [facility]10-24-2024 Miscellaneous Notes* Telephone Encounter - Ileana Wright LPN - 05/01/2024 3:43 PM EDT Prescription Refill Information The patient has been [...] 01, 2024 3:44 PM documented in this encounterCleveland Clinic [facility]10-[facility]-2024 NoteHNO ID: [id number] Author: KEV MANNING OD Service: ? Author Type: SPINNING FRAME CHANGER Type: Progress Notes Filed: 04/24/2024 09:10 Note Text: 1. Migraine without aura and without status migrainosus, not intractable Ocular health unremarkable Continue medication as prescribed at onset of migraine 2. Presbyopia Recommended +1.25 OTC readers for all near work 3. Optic cupping of both eyes Large C/D Previous OCT: normal Follow-up in 1 year with complete and OCT nerve Kev Manning OD April 24, 2024 9:09 [facility]10-17-2024 History of Present illness Narrative* Kev Manning OD - 04/24/2024 9:09 AM EDT 1. Migraine without aura and without status migrainosus, not intractable Ocular health unremarkable Continue medication as prescribed at onset of migraine 2. Presbyopia Recommended +1.25 OTC readers for all near work 3. Optic cupping of both eyes Large C/D Previous OCT: normal Follow-up in 1 year with complete and OCT nerve Kev Manning OD April 24, 2024 9:09 AM documented in this encounterC[facility] Clinic [facility]10-17-[facility] Instructions* Patient Instructions* Kev Manning OD - 04/24/2024 8:59 AM EDT Use +1.25 uafy-dwq-ohdxkbp reading glasses for near work including color by numbers documented in this encounterCleveland Clinic [facility]10-17-2024 NoteHNO ID: [id number] Author: DEYA MARTINEZ MA Service: ? Author Type: Medical Sales Representative Type: Progress Notes Filed: 04/24/2024 08:29 Note Text: POPULATION HEALTH NAVIGATION OUTREACH Action/FYI Letter received and sent to be mailed. Navigation Signature: Deya Martinez MA April 24, 2024 8:29 [facility]10-09-2024 NoteHNO ID: [id number] Author: BRADELY BASILIO MA Service: ? 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 Sent Dwolla message. Sent letter Updated notes on upcoming appt to address due care gaps and HCC gap closure Reason for Outreach Care Gap/HCC or Scheduling Wellness Visits Care Gaps due: Colorectal Cancer Screening Flu Vaccine Patient Contacted: Unable or unnecessary to reach patient: Unable to leave message Letter mailed HCC related Updated appointment notes Navigation Signature: Bradley Basilio MA April 16, 2024 7:29 [facility]10-09-2024 History of Present illness Narrative* Bradley Basilio MA - 04/16/2024 7:29 AM EDT POPULATION HEALTH NAVIGATION OUTREACH Action/FYI Patient is on [facility] CURRENT [facility]OST[facility] Workbench list for below and needs appointment to address: Anxiety Screening Influenza Vaccine(1) Covid-19 Vaccine() Colorectal Cancer Screening Hemoglobin A1C (%) Date Value 06/05/2023 4.7 04/08/2018 4.7 Patient due for: Colorectal Cancer Screening - FOBT previously ordered Flu Vaccine MyChart Active: No, offered activation N/A Attempted to reach patient, voicemail not set up yet (wireless customer is not available recording), unable to leave message. Sent [employer] Corporationhart message. Sent letter Updated notes on upcoming [...] 16, 2024 7:29 AM documented in this encounterCleveland [facility]10-[facility] NotePatient Outreach (NETNAV) MAXIMUS BRADLEY ([id number]) 1975 F Date Time Provider Department 04/16/24 BRADLEY BASILIO NETJAMIE During your visit today, we recorded the following information about you: Bradley Basilio MA 04/16/2024 9:35 AM Signed POPULATION HEALTH NAVIGATION OUTREACH Action/ Patient is on [facility] CURRENT ROSTER Workbench list for below [...] available recording), unable to leave message. Sent [employer]hart message. Sent letter Updated notes on upcoming [...] Text Encounter Status:Closed by BRADLEY BASILIO on 04/16/24[facility] [place]09-03-[facility]24 Telephone encounter Note* Telephone Encounter - José Manuel Mcclure MA - 03/11/2024 8:40 AM EDT Patient phones requesting refills as follows: Requested Prescriptions Pending Prescriptions Disp Refills sucralfate (CARAFATE) 100 mg/mL suspension [Pharmacy Med Name: Sucralfate 1GM/10ML SUSP] 828 mL 0 Sig: TAKE 10ML BY MOUTH TWICE A DAY Please review and advise. José Manuel Mcclure MA [facility]09-03-2024 Miscellaneous Notes* Telephone Encounter - José Manuel Mcclure MA - 03/11/2024 8:40 AM EDT Patient phones requesting refills as follows: Requested Prescriptions Pending Prescriptions Disp Refills sucralfate (CARAFATE) 100 mg/mL suspension [Pharmacy Med Name: Sucralfate 1GM/10ML SUSP] 828 mL 0 Sig: TAKE 10ML BY MOUTH TWICE A DAY Please review and advise. José Manuel Mcclure MA documented in this encounterCleveland Clinic [facility]08-23-2024 Telephone encounter Note * Telephone Encounter - Consuelo Arreguin RN - 02/29/2024 1:41 PM EDT The patient has been identified by name [...] empty stomach. For Thyroid Consuelo Arreguin RN [facility]08-23-2024 Miscellaneous Notes* Telephone Encounter - Consuelo Arreguin RN - 02/29/2024 1:41 PM EDT The patient has been identified by name [...] Thyroid Consuelo Arreguin RN documented in this encounterCleveland Clinic [facility]08-23-2024 Telephone encounter Note * Telephone Encounter - Tamica Gamez LPN - 02/29/2024 8:58 AM EDT Phoned patient went over results, notes from Dr Hsu with understanding. Aware rx sent to pharmacy. [facility]08-23-2024 Miscellaneous Notes* Telephone Encounter - Tamica Gamez LPN - 02/29/2024 8:58 AM EDT Phoned patient went over results, notes from Dr Hsu with understanding. Aware rx sent to pharmacy. * Telephone Encounter - Leny Hsu MD - 02/28/2024 11:27 AM EDT Anemia has resolved. Platelet count is still high without other abnormal cell lines. Iron level is low. Recommend starting ferrous sulfate daily to improve iron levels and platelet count. Recheck labs in 1-2 months. Will check FOBT to rule out GI bleed as possible cause for iron deficiency. Please notify the office with any other bleeding or bruising symptoms. documented in this encounterCleveland Clinic [facility]08-22-2024 Telephone encounter Note * Telephone Encounter - Leny Hsu MD - 02/28/2024 11:27 AM EDT Anemia has resolved. Platelet count is still high without other abnormal cell lines. Iron level is low. Recommend starting ferrous sulfate daily to improve iron levels and platelet count. Recheck labs in 1-2 months. Will check FOBT to rule out GI bleed as possible cause for iron deficiency. Please notify the office with any other bleeding or bruising symptoms. [facility]08-13-[facility]24 History of Present illness Narrative* Brittani Delgado MA - 02/19/2024 2:[address] Rollins Maximus was provided with original powersteps, size 9, and instructed/educated inits application, wear, and care. All questions were answered, and patient was able to demonstrate competence with the necessary skills to utilize the above equipment. Brittani Delgado MA * Omero Rollins - 02/19/2024 1:47 PM EDT Images from the original note were not [...] 4 hours asneeded for wheezing/shortness of breath. naproxen (NAPROSYN) 500 [...] & CURETTAGE DX&/THER NONOBSTETRIC 01/30/2022: EGD W/O [facility] SPEC VARICIES INJ 07/04/2005: ESOPHAGOGASTRODUODENOSCOPY TRANSORAL DIAGNOSTIC [...] 4. Can use pummice stone as needed Omero Rollins DPM Podiatry [address] [facility] [address] Dept: [phone] Dept * Maureen Sandy LPN - 02/19/2024 1:25 PM EDT AMB ROOMING INTAKE FLOWSHEET DATA Pain Pain Level: 5 Pain Location: Other: See Comment (bilateral feet) Description: Sore Duration Units: Years Frequency: Intermittent Intervention/Comfort measure: Reposition, Relaxation Patient presents with: Right Foot - New, Pain, Wart Left Foot - New, Pain, Wart Maureen Sandy LPN documented in this encounterCleveland Clinic [facility]08-13-2024 Instructions* Patient Instructions* Omero Rollins - 02/19/2024 1:55 PM EDT Powerstep Original Full length. Can purchase at [facility] and boots,shoes and more here in [place], [employer] in [place] or [place]. Also can find in [employer] in [facility]. Powersteps can also be purchased online, starting [...] area of color transfer. documented in this encounterCleveland Clinic [facility]07-30-2024 Telephone encounter Note * Telephone Encounter - Maya Hernandez RN - 02/05/2024 2:40 PM EDT The patient has been identified by name [...] Hernandez RN February 05, 2024 2:41 PM [facility]07-30-2024 Miscellaneous Notes* Telephone Encounter - Maya Hernandez RN - 02/05/2024 2:40 PM EDT The patient has been identified by name [...] 05, 2024 2:41 PM documented in this encounterCleveland Clinic [facility]07-30-2024 Telephone encounter Note * Telephone Encounter - Ruthie Mcgill LPN - 02/05/2024 10:20 AM EDT Pt notified of results & instructions to repeat labs, pt voiced understanding. Ruthie Mcgill LPN [facility]07-30-2024 Miscellaneous Notes* Telephone Encounter - Ruthie Mcgill LPN - 02/05/2024 10:20 AM EDT Pt notified of results & instructions to repeat labs, pt voiced understanding. Ruthie Mcgill LPN * Telephone Encounter - Ruthie Burnham LPN - 02/05/2024 10:15 AM EDT Attempted call to patient- recording states patient unavailable and to call again later. No VM available. Attempt call back later. Ruthie Burnham LPN * Telephone Encounter - Leny Hsu MD - 02/05/2024 10:11 AM EDT Blood work shows mild anemia with high platelet counts. Recommend obtaining additional blood work to rule out iron deficiency, GI bleed, and inflammation as possible causes. Come in for repeat labs this week. Other labs unremarkable. documented in this encounterCleveland Clinic [facility]07-30-2024 Telephone encounter Note * Telephone Encounter - Ruthie Burnham LPN - 02/05/2024 10:15 AM EDT Attempted call to patient- recording states patient unavailable and to call again later. No VM available. Attempt call back later. Ruthie Burnham LPN [facility]07-30-2024 Telephone encounter Note* Telephone Encounter - Leny Hsu MD - 02/05/2024 10:11 AM EDT Blood work shows mild anemia with high platelet counts. Recommend obtaining additional blood work to rule out iron deficiency, GI bleed, and inflammation as possible causes. Come in for repeat labs this week. Other labs unremarkable. [facility]07-29-2024 History of Present illness Narrative* Leny Hsu MD - 02/04/2024 11:02 AM EDT Chief Complaint Patient presents with: Pain: Left [...] flexion. States that she was evaluated at [facility] on 01/16 and they obtained xray which [...] on 01/13/2025 Covid-19 Vaccine( season) due on 01/13/2025 Influenza Vaccine(1) due [...] rest, ice, NSAIDs, home exercises. Advised to pickup arm band OTC to be worn daily as well. Call if not improving in 2-3 weeks on this regimen and would refer to PT. Leny Hsu MD documented in this encounterCleveland [id number] Telephone encounter Note * Telephone Encounter - Tamica Gamez LPN - 01/31/2024 2:09 PM EDT The patient has been identified by name [...] Gamez LPN January 31, 2024 2:09 PM [facility]07-25-2024 Miscellaneous Notes* Telephone Encounter - Tamica Gamez LPN - 01/31/2024 2:09 PM EDT The patient has been identified by name [...] 31, 2024 2:09 PM documented in this encounterCleveland Clinic [facility]07-25-2024 Telephone encounter Note * Telephone Encounter - José Manuel Mcclure MA - 01/31/2024 8:44 AM EDT Patient phones requesting refills as follows: Requested Prescriptions Pending Prescriptions Disp Refills sucralfate (CARAFATE) 100 mg/mL suspension [Pharmacy Med Name: Sucralfate 1GM/10ML SUSP] 828 mL Sig: TAKE 10ML BY MOUTH TWICE A DAY Please review and advise. José Manuel Mcclure MA [address]25-2024 Miscellaneous Notes* Telephone Encounter - José Manuel Mcclure MA - 01/31/2024 8:44 AM EDT Patient phones requesting refills as follows: Requested Prescriptions Pending Prescriptions Disp Refills sucralfate (CARAFATE) 100 mg/mL suspension [Pharmacy Med Name: Sucralfate 1GM/10ML SUSP] 828 mL Sig: TAKE 10ML BY MOUTH TWICE A DAY Please review and advise. José Manuel Mcclure MA documented in this encounterCleveland Clinic [facility]07-19-2024 Telephone encounter Note * Telephone Encounter - Terry Esteves RN - 01/25/2024 8:47 AM EDT Pt returned call and given provider's message below with verbalized understanding. [facility]07-19-2024 Miscellaneous Notes* Telephone Encounter - Terry Esteves RN - 01/25/2024 8:47 AM EDT Pt returned call and given provider's message below with verbalized understanding. * Telephone Encounter - Tamica Gamez LPN - 01/25/2024 8:22 AM EDT Phoned patient no voicemail set up, try again later. * Telephone Encounter - Leny Hsu MD - 01/25/2024 7:49 AM EDT Patient's echo is normal. Her stress test did not show any signs of heart strain or blockage, but she was not able to get to maximal recommended HR, which lowers its sensitivity. With both tests being normal, I would not recommend further cardiac workup for chest pain unless symptoms persist. * Telephone Encounter - Marya Long MA - 01/24/2024 3:05 PM EDT Pt had Echo and Stress test completed, results attached below. Scan on 01/23/2024 3:00 PM by Provider, Cam PA-C: Stress Test Scan on 01/23/2024 5:21 PM by Provider, Cam, PA-C: Echo Marya Long MA documented in this encounterCleveland Clinic [facility]07-19-2024 Telephone encounter Note * Telephone Encounter - Tamica Gamez LPN - 01/25/2024 8:22 AM EDT Phoned patient no voicemail set up, try again later. [facility]07-19-2024 Telephone encounter Note* Telephone Encounter - Leny Hsu MD - 01/25/2024 7:49 AM EDT Patient's echo is normal. Her stress test did not show any signs of heart strain or blockage, but she was not able to get to maximal recommended HR, which lowers its sensitivity. With both tests being normal, I would not recommend further cardiac workup for chest pain unless symptoms persist. [facility]07-18-2024 Telephone encounter Note* Telephone Encounter - Marya Long MA - 01/24/2024 3:05 PM EDT Pt had Echo and Stress test completed, results attached below. Scan on 01/23/2024 3:00 PM by Provider, FILIPE Levy: Stress Test Scan on 01/23/2024 5:21 PM by Provider, Cam, FILIPE: Echo Marya Long MA [facility]07-08-2024 History of Present illness Narrative* Leny Hsu MD - 01/14/2024 1:25 PM EDT Chief Complaint Patient presents with: Follow Up [...] history of migraines which is managed by [facility] neurology. Last OV in September reviewed withpatient. Getting migraine headaches every other week on Topamax and uses Amerge PRN for breakthrough which works some of the time. Patient has follow up in 1 month. Hypothyroidism: Tolerating synthroid without side effects. Asymptomatic on current regimen. Due forTSH. Anxiety and depression well controlled on current regimen without side effects. Denies SI/HI, panicsymptoms. Not seeing counseling at this time. 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 Leny Hsu MD documented in this encounterCleveland Clinic [facility]06-12-2024 History of Present illness Narrative* Leny Hsu MD - 12/19/2023 2:18 PM EDT Chief Complaint Patient presents with: Follow [...] her breasts. Using recently for red rash withitching. Trying to keep the area dry. Rash [...] 3.2 oz) LMP 09/21/2023 SpO2 97% BMI 34.09kg/m General Appearance: Well appearing, alert, in no acute distress, well-hydrated, well nourished.. Skin: mild rash under breasts bilaterally without cellulitis consistent with tinea. Feet: Shoes and socks removed, calluses noted bilaterally, and plantar warts proximal to 5th MTP joint bilaterally Health Maintenance List Hepatitis B Vaccine(1 of 3 - 19+ 3-dose series) Never done Covid-19 Vaccine( - 2022- season) Never done Mammogram Screening due on [...] to wash hands after touching area. Will referfor excision. - CONSULT TO PODIATRY 2. Tinea [...] CREAM Leny Hsu MD documented in this encounterCleveland Clinic [facility]06-03-2024 Telephone encounter Note * Telephone Encounter - Ryann Nieto MA - 12/10/2023 10:13 AM EDT Patient phones requesting refills as follows: Requested Prescriptions Pending Prescriptions Disp Refills sucralfate (CARAFATE) 100 mg/mL suspension [Pharmacy Med Name: Sucralfate 1GM/10ML SUSP] 600 mL 1 Sig: TAKE 10ML BY MOUTH TWICE A DAY Ryann Nieto CMA [facility]06-03-2024 Miscellaneous Notes* Telephone Encounter - Ryann Nieto MA - 12/10/2023 10:13 AM EDT Patient phones requesting refills as follows: Requested Prescriptions Pending Prescriptions Disp Refills sucralfate (CARAFATE) 100 mg/mL suspension [Pharmacy Med Name: Sucralfate 1GM/10ML SUSP] 600 mL 1 Sig: TAKE 10ML BY MOUTH TWICE A DAY Ryann Nieto CMA documented in this encounterCleveland Clinic [facility]05-30-2024 Telephone encounter Note * Telephone Encounter - Keyla Cullen LPN - 12/06/2023 4:06 PM EDT Prescription Refill Information The patient has been [...] Cullen LPN December 06, 2023 4:06 PM [facility]05-30-2024 Miscellaneous Notes* Telephone Encounter - Keyla Cullen LPN - 12/06/2023 4:06 PM EDT Prescription Refill Information The patient has been [...] 06, 2023 4:06 PM documented in this encounterCleveland Clinic [facility]05-03-2024 Telephone encounter Note * Telephone Encounter - José Manuel Mcclure MA - 11/09/2023 11:07 AM EDT Patient phones requesting refills as follows: Requested Prescriptions Pending Prescriptions Disp Refills sucralfate (CARAFATE) 100 mg/mL suspension [Pharmacy Med Name: Sucralfate 1GM/10ML SUSP] 414 mL 1 Sig: TAKE 10ML BY MOUTH TWICE A DAY Please review and advise. José Manuel Mcclure MA [facility]05-03-2024 Miscellaneous Notes* Telephone Encounter - José Manuel Mcclure MA - 11/09/2023 11:07 AM EDT Patient phones requesting refills as follows: Requested Prescriptions Pending Prescriptions Disp Refills sucralfate (CARAFATE) 100 mg/mL suspension [Pharmacy Med Name: Sucralfate 1GM/10ML SUSP] 414 mL 1 Sig: TAKE 10ML BY MOUTH TWICE A DAY Please review and advise. José Manuel Mcclure MA documented in this encounterCleveland Clinic [facility]05-02-2024 Telephone encounter Note * Telephone Encounter - Sherine Cruz RN - 11/08/2023 3:09 PM EDT Patient has been identified by [...] Please advise. Thank you. Sherine Cruz RN. [facility]05-02-2024 Miscellaneous Notes* Telephone Encounter - Sherine Cruz RN - 11/08/2023 3:09 PM EDT Patient has been identified by [...] you. Sherine Cruz RN. documented in this encounterCleveland Clinic [facility]04-18-2024 Miscellaneous Notes* Telephone Encounter - Sandhya Hackett MA - 10/25/2023 4:45 PM EDT Call placed to patient to be sure she had received results and follow up. She states that she spoketo Dr. Dickerson and is aware of the benign biopsy. She has an appt in March with DR. Dickerson forre-examination and discussion of plan. Sandhya Hackett MA * Telephone Encounter - Kirk Cast MD - 10/25/2023 10:54 AM EDT Patient's biopsy results were benign. However her next mammogram comes back abnormal we may need todo an excisional biopsy this is probably something that she should come in and I discussed with herin person. * Telephone Encounter - Maureen Sandy LPN - 09/12/2023 2:02 PM EST Patient called in requesting results from breast biopsy. Please advise. Maureen Sandy LPN documented in this encounterCleveland Clinic [facility]04-05-2024 Miscellaneous Notes* Telephone Encounter - José Manuel Mcclure MA - 10/12/2023 2:51 PM EDT Patient phones requesting refills as follows: Requested Prescriptions Pending Prescriptions Disp Refills sucralfate (CARAFATE) 100 mg/mL suspension [Pharmacy Med Name: Sucralfate 1GM/10ML SUSP] 414 mL Sig: TAKE 10ML BY MOUTH TWICE A DAY Please review and advise. José Manuel Mcclure MA documented in this encounterCleveland Clinic [facility]03-25-2024 History of Present illness Narrative* Leny Hsu MD - 10/01/2023 9:26 AM EDT Chief Complaint Patient presents with: excoriation: Under [...] to occasional blistering. Denies fever/chills, purulent drainage, bleeding,spreading redness. Past medical history, appointments, medications, allergies [...] Never done Covid-19 Vaccine(2022- season) Never done Annual PCP Team Chronic Disease [...] CREAM Leny Hsu MD documented in this encounterCleveland Clinic [facility]03-14-2024 History of Present illness Narrative* Jordin Dickerson MD - 09/20/2023 11:00 AM EDT FOLLOW UP VISIT - POST LEFT ULTRASOUND GUIDED CORE BIOPSY NAME: Maximus Vang [facility] NO.: [id number] DATE OF SERVICE: 09/20/2023 : 1975 REFERRING [...] breast. Jordin Dickerson MD documented in this encounterCleveland Clinic [facility]03-13-2024 Instructions* Patient Instructions* Kristy Asencio PA-C - 09/19/2023 4:03 PM EDT Preventative: Topiramate- we will decrease this. Take two tablets in the evening for a total of 50mg a day Abortive: Take the Amerge with onset of headache Supplement with B12 B12 <400: Vitamin B12 level <400, which indicates deficiency. You may start vitamin B12 supplements [available [id number]] orally, according to the following regimen: Vitamin [...] Feverfew: Feverfew is a common garden herb [place] to [place] and popular in [facility] as a treatment for disorders typically controlled [...] pepperoni, Pickled crook Pods of broad restrepo (Serbian beans, French pea pods, Venezuelan (audi) beans, schulte and navy beans Ripe avocado, ripe banana Yeast extracts or active yeast preparations such as Argueta's or Benjamin's (commercial bakes goodsare permitted) Tomato based foods, pizza (lasagna, etc.) MSG (monosodium glutamate) is disguised as many things; look for these common aliases: Monopotassium glutamate Autolysed yeast Hydrolysed protein Sodium caseinate flavorings all natural preservatives Nutrasweet Avoid all other foods that convincingly [...] too muchlight. These can be obtained at [employer] or [employer]: see list above. 2. Limit use of acute treatments (eoxk-ztk-fugunbu medications, triptans, etc.) to no more than [...] and quiet environment. Relax and reduce stress. Rnulooj9Guoyl is a free sully that can instruct you on some simple relaxtionand breathing techniques. Http://[employer] is a free website that provides teaching [...] that will reveal this dysfunctional electrical circuitry suchon MRI, or other testing. We try [...] and will be handling your phone calls, dscoveredt Messages and inquiries, if any. Unless explicitly told otherwise at the time of your office visit, your study results and ensuing treatment plans will be released via [employer] and discussed during your follow-up appointment. MyChart: Please ask the schedulers to give you an activation code. The main way of communication isby dscoveredt rather than phone lines, so if you have not signed up, please do so. [employer] is also theway that you can review your labs and testing. We are not able to contact everyone to tell them results are normal. If you do not hear back from us regarding testing you have had, it should be considered normal or within normal range. If you have any questions about the results, you are free to message us. [employer] is meant for simple questions regarding medications, possible side effects, or other simplestraight forward questions in limited sentences, rather than multiple paragraphs of discussion. [employer] is not meant for, or efficient for [...] do not comment on most testing on Vir[employer] Logic Corporationgreenwich hospitalt in a message or commentary unless there [...] you with this process. documented in this encounterCleveland Clinic [facility]03-13-2024 History of Present illness Narrative* Kristy Asencio PA-C - 09/19/2023 3:51 PM EDT Images from the original note were not included. [facility] Follow up CC: [...] does not eat and resolves if she doeseat. Is concerned that she has diabetes, but previous A1c was normal. Also concerned about weight fluctuation, but notes only few pounds at a time. The notes that overall she has gained weight over the last few years and is concerned about this. Is concerned that this is her thyroid. Also notes that she saw her improvement advisor and since the dilated exam has difficulty [...] DILATION & CURETTAGE DX&/THER NONOBSTETRIC EGD W/O [facility] SPEC VARICIES INJ 01/30/2022 ESOPHAGOGASTRODUODENOSCOPY TRANSORAL DIAGNOSTIC [...] pain. SKIN:Negative for lesions, rash, and itching. HEMATOLOGIC/LYMPHATIC/IMMUNOLOGIC:Negative for prolonged bleeding, bruising easily or swollen [...] water intake and decreasing caffeinated beverages to preventlightheadedness. Patient was found to have low B12 and was given instructions on how to supplement this. Patient also concerned with episodes of shaking, states this only occurs when she does not eat all day and encouraged her to eat throughout the day to prevent this. Also had concerns over weight gainand encouraged to follow-up with her primary care [...] which included preparing to see the patient, [id number] patient care, completing clinical documentation, obtaining and/or reviewing separately obtained history, performing a medically appropriate examination, counseling and educating the pat ient/family/caregiver, and ordering medications, tests, or procedures. Kristy Asencio PA-C General Neurology [address] [place] [address]. [id number] Appointment: [phone] documented in this encounterCleveland Clinic [facility]03-06-2024 Miscellaneous Notes* Telephone Encounter - Ruthie Mcgill LPN - 09/12/2023 11:01 AM EST Patient has been identified by name and [...] you. Ruthie Mcgill LPN. documented in this encounterCleveland Clinic [facility]02-28-2024 History of Present illness Narrative* Nichelle Pina RT(R) - 09/05/2023 2:30 PM EST Radiology Service Progress Note PATIENT NAME: [...] PATIENT PRESENTS WITH AN IMPLANTABLE OR ATTACHED AIRPLANE PILOT HELPER: No RADIOLOGY DEPARTMENT: Ultrasound PERIPHERAL IV DATA: Not applicable SIGNED BY: RT Kourtney(R) September 05, 2023 1:59 PM documented in this encounterC[facility] History of Present illness Narrative* Oli Kirkpatrick RT(R) - 09/05/2023 12:30 PM EST Radiology Service Progress Note PATIENT NAME: [...] PATIENT PRESENTS WITH AN IMPLANTABLE OR ATTACHED AIRPLANE PILOT HELPER: No RADIOLOGY DEPARTMENT: Mammography PERIPHERAL IV DATA: Not applicable SIGNED BY: RT Niki(R) September 05, 2023 1:16 PM documented in this [facility]02-19-2024 Miscellaneous Notes* Telephone Encounter - Rakel Kramer - 08/27/2023 12:40 PM EST Patient has been identified by name and [...] a month. Please review and advise. Rakel Pino Pss documented in this [facility]02-12-2024 Miscellaneous Notes* Telephone Encounter - Shraddha Tucker RN - 08/20/2023 10:39 AM EST Patient has been identified by name and [...] you. Shraddha Tucker RN. documented in this encounter[address]09-2024 NoteHNO ID: [id number] Author: HOA TOLENTINO MD Service: ? Author Type: Physician Type: Progress Notes Filed: 08/17/2023 18:11 Note Text: Patient had prior imaging at [facility]. Review of Imaging is as follows: Bilateral [...] appointment will also be scheduled for the patient.[facility]02-09-2024 History of Present illness Narrative* Hoa Tolentino MD - 08/17/2023 12:39 PM EST Patient had prior imaging at [facility]. Review of Imaging is as follows: Bilateral [...] ultrasound does not necessarily correlate with the mammogram,I recommend repeat mammogram to include imaging in the ML view, and repeat ultrasound to further characterize. A biopsy appointment will also be scheduled for the patient. documented in this encounterC[facility] Telephone encounter Note * Telephone Encounter - Lucero Guevara - 08/13/2023 4:[address] Cast patient to have left ultrasound breast biopsy. Per protocol email sent to Naseem to have radiologist review and call patient to schedule accordingly. Patient aware of steps needed to be completed prior to scheduling. Patient given my direct line forany further assistance Lucero Guevara Hearing Healthcare Practitioner [facility]02-05-2024 Miscellaneous Notes* Telephone Encounter - Lucero Guevara - 08/13/2023 4:[address] Cast patient to have left ultrasound breast biopsy. Per protocol email sent to Naseem to have radiologist review and call patient to schedule accordingly. Patient aware of steps needed to be completed prior to scheduling. Patient given my direct line forany further assistance Lucero Guevara Hearing Healthcare Practitioner documented in this encounterCleveland Clinic [facility] Nurse Note* Giana Guerrero LPN - 08/13/2023 3:14 PM EST REVIEW OF SYSTEMS: General: The patient NOTES [...] difficulty swallowing, NOTES acid reflux, denies ulcers, NOTESvomiting, denies jaundice/hepatitis, denies gallbladder problems, denies black [...] psychiatric medications, NOTES depression, and denies voices, deniessubstance abuse. Endocrine: The patient NOTES thyroid disorders, denies diabetes, and denies hormonal problems. Hematologic: The patient denies a history of bruising, denies bleeding, and denies anemia, denies blood clots. Infections: The patient denies a history of measles and mumps, denies rheumatic fever, and denies sexually transmitted diseases. Musculoskeletal: The patient denies back pain/injury, denies back problems, denies sciatica, deniesknee/foot trouble, denies arthritis, or denies gout. When was patient's last Mammogram screening? 07/25/2023, 10/18/2022, 09/01/2022 Last Colonoscopy: 11/28/2021 Giana Guerrero LPN documented in this encounterCleveland Clinic [facility] History of Present illness Narrative* Kirk Cast MD - 08/13/2023 2:58 PM EST HISTORY AND PHYSICAL - BREAST COMPLAINT Maximus Bradley 1975 REFERRING PHYSICIAN: Leny Hsu MD CHIEF COMPLAINT: Abnormal mammogram (primary encounter diagnosis) HPI: The patient is a 48 year old female with a complaint of an abnormal mammogram. The patient hada mammogram with ultrasound on 07/25/23 which demonstrated [...] 03/29/2015 Migraines Reflux esophagitis Urinary retention Pablo Murphy PAST SURGICAL HISTORY Procedure Laterality Date COLONOSCOPY [...] entered by the nurse and reviewed by [place] Nursing Notes: Giana Guerrero LPN 08/13/2023 3:19 [...] difficulty swallowing, NOTES acid reflux, denies ulcers, NOTESvomiting, denies jaundice/hepatitis, denies gallbladder problems, denies black [...] psychiatric medications, NOTES depression, and denies voices, deniessubstance abuse. Endocrine: The patient NOTES thyroid disorders, denies diabetes, and denies hormonal problems. Hematologic: The patient denies a history of bruising, denies bleeding, and denies anemia, denies blood clots. Infections: The patient denies a history of measles and mumps, denies rheumatic fever, and denies sexually transmitted diseases. Musculoskeletal: The patient denies back pain/injury, denies back problems, denies sciatica, deniesknee/foot trouble, denies arthritis, or denies gout. When [...] Cast III, MD documented in this encounterC[facility] Clinic [facility] History of Past illness Narrative* Problem Noted [...] of this encounter (statuses as of 08/14/2023) [facility] History of Past illness Narrative* Problem Noted [...] of this encounter (statuses as of 08/17/2023) [facility] History of Past illness Narrative* Problem Noted [...] of this encounter (statuses as of 08/20/2023) [facility] History of Past illness Narrative* Problem Noted [...] of this encounter (statuses as of 08/28/2023) [facility] History of Past illness Narrative* Problem Noted [...] of this encounter (statuses as of 09/06/2023) [facility] History of Past illness Narrative* Problem Noted [...] of this encounter (statuses as of 09/06/2023) [facility] History of Past illness Narrative* Problem Noted [...] of this encounter (statuses as of 09/19/2023) [facility] History of Past illness Narrative* Problem Noted [...] of this encounter (statuses as of 09/20/2023) [facility] History of Past illness Narrative* Problem Noted [...] of this encounter (statuses as of 09/20/2023) [facility] History of Past illness Narrative* Problem Noted [...] of this encounter (statuses as of 10/01/2023) [facility] History of Past illness Narrative* Problem Noted [...] of this encounter (statuses as of 10/12/2023) [facility] History of Past illness Narrative* Problem Noted [...] of this encounter (statuses as of 10/26/2023) [facility]12[facility] History of Present illness Narrative* Kev Manning, OD - 06/15/2023 3:23 PM EST 1. Migraine without aura and without status migrainosus, not intractable NO ocular health pathology upon dilated exam 2. Presbyopia Recommend OTC readers 3. Optic cupping of both eyes Normal OCT both eyes Repeat 1-2 years Follow-up in 1 year or sooner as needed Kev Manning OD June 15, 2023 3:23 PM documented in this encounterCleveland Clinic [facility]12-08-2023 Instructions* Patient Instructions* Kev Manning, OD - 06/15/2023 2:44 PM EST Use +1.50 wmqm-ylz-hwrgfdp reading glasses for near work documented in this encounterCleveland Clinic [facility]11-30-[facility]23 Miscellaneous Notes* Telephone Encounter - Augustina Watts [...] You may start vitamin B12 supplements [available nlcg-iiz-nnewghf] orally, according to the following regimen: Vitamin B12, 2 mg (or 2000 micrograms) by mouth daily x1 month. Take together with folic acid 1 mg daily. THEN maintenance with 1 mg (or 1000 micrograms) daily thereafter. Your PCP may recheck vitamin B12 levels in about 6 months to ensure adequate repletion. documented in this encounterC[facility] Clinic [facility]11-28-2023 Instructions* Patient Instructions* Kristy Asencio PA-C - [...] Feverfew: Feverfew is a common garden herb [place] to [place] and popular in [place] [...] pepperoni, Pickled crook Pods of broad restrepo (Serbian beans, French pea pods, Venezuelan (audi) beans, schulte and navy beans Ripe avocado, ripe banana Yeast extracts or active yeast preparations such as Argueta's or Benjamin's (commercial bakes goodsare permitted) Tomato based foods, pizza (lasagna, etc.) MSG (monosodium glutamate) is disguised as many things; look for these common aliases: Monopotassium glutamate Autolysed yeast Hydrolysed protein Sodium caseinate flavorings all natural preservatives Nutrasweet Avoid all other foods that convincingly [...] too muchlight. These can be obtained at [employer] or [employer]: see list above. 2. Limit use of acute treatments (vyni-yzv-githhki medications, triptans, etc.) to no more than [...] and quiet environment. Relax and reduce stress. Qckbcab1Rakms is a free sully that can instruct you on some simple relaxtionand breathing techniques. Http://Numari[employer] is a free website that provides teaching [...] that will reveal this dysfunctional electrical circuitry suchon MRI, or other testing. We try [...] and will be handling your phone calls, dscoveredt Messages and inquiries, if any. Unless explicitly told otherwise at the time of your office visit, your study results and ensuing treatment plans will be released via [employer] and discussed during your follow-up appointment. dscoveredt: Please ask the schedulers to give you an activation code. The main way of communication isby [employer] rather than phone lines, so if you have not signed up, please do so. [employer] is also theway that you can review your labs and testing. We are not able to contact everyone to tell them results are normal. If you do not hear back from us regarding testing you have had, it should be considered normal or within normal range. If you have any questions about the results, you are free to message us. [employer] is meant for simple questions regarding medications, possible side effects, or other simplestraight forward questions in limited sentences, rather than multiple paragraphs of discussion. MyChart is not meant for, or efficient for [...] do not comment on most testing on [employer] in a message or commentary unless there [...] you with this process. documented in this encounterCleveland Clinic [facility]11-28-2023 History of Present illness Narrative* Kristy Asencio PA-C - 06/05/2023 8:50 AM EST Images from the original note were not included. Neurology Outpatient Clinic Date: June 05, 2023 Patient Name: Maximus Bradley Referring physician: Leny Hsu [address] [facility] [id number] Consult requested for headache by Dr. Hsu. Recommendations will be communicated via shared medical record or US mail. Primary physician: Leny Hsu [address] [place] [address] Reason for Evaluation: Headaches Subjective HPI Maximus Bradley is a 47 year old right-handed female who presents for evaluation of headaches. is the referring physician and PCP. Chart review: PCP 05/14/23- increased TPM to 50mg BID and helped with MCCRAY. Has had 3 headaches this week and describes headache as pain over forehead. Has not had nausea, vomiting, photophobia, phonophobia with headaches this week. Headaches lasting all day. Taking Maxalt which resolves her headaches. Saw neurology in the past who recommended botox which she refused. Not interested in new rx. SawHA in 2014, daily tylenol. On candesartan, [...] lb 6.4 oz) Height: 167.6 cm (5' 6) Physical Examination General Appearance: Well appearing, alert, [...] Negative Coordination: finger-to- nose-finger intact bilaterally and xilu-ul-qyoh intact bilaterally. Gait: Patient's gait is normal [...] which included preparing to see the patient, hmop-cj-wwed patient care, completing clinical documentation, obtaining and/or reviewing separately obtained history, performing a medically appropriate examination, counseling and educating the pat ient/family/caregiver, and ordering medications, tests, or procedures. Kristy Asencio PA-C [facility] This document has been created with the use of voice recognition technology. It may contain inaccuracies: (e.g. misspellings, inaccurate syntax or word sense) that have escaped review. documented in this encounterCleveland Clinic [facility]11-21-2023 Miscellaneous Notes* Telephone Encounter - José Manuel Mcclure MA - 05/29/2023 8:14 AM EST Patient phones requesting refills as follows: Requested Prescriptions Pending Prescriptions Disp Refills sucralfate (CARAFATE) 100 mg/mL suspension [Pharmacy Med Name: Sucralfate 1GM/10ML SUSP] 420 mL Sig: TAKE 10ML BY MOUTH TWICE A DAY Please review and advise. José Manuel Mcclure MA documented in this encounterCleveland Clinic [facility]11-17-2023 Miscellaneous Notes* Telephone Encounter - Shraddha Tucker RN - 05/25/2023 8:46 AM EST Date of last office: 05/14/2023 Date of next office visit: 2023 Requested Prescriptions Pending Prescriptions Disp Refills topiramate (TOPAMAX) 25 mg capsule 120 capsule 2 Sig: Take 2 capsules by mouth two times a day. Date of Last Labs: 12/14/2022 Please advise. Thank you. Shraddha Tucker RN. documented in this encounterCleveland Clinic [facility]11-06-2023 History of Present illness Narrative* Leny Hsu [...] NEUROLOGY Leny Hsu MD documented in this encounterCleveland Clinic [facility]11-01-2023 Miscellaneous Notes* Telephone Encounter - José Manuel Mcclure MA - 05/09/2023 9:27 AM EDT Patient given results to esophagram. She would like to give the EGD some thought at this time. Patient advised to give us a call and we can place an order if she decides to go through with it. documented in this encounterCleveland Clinic [facility]10-31-2023 NoteHNO ID: [id number] Author: Mi Newton RT(R) Service: Radiology Author Type: Technologist Type: Progress [...] BY: RT Colin(Jesus) May 08, 2023 2:25 [facility]10-31-2023 History of Present illness Narrative* Mi Newton RT(R) - 05/08/2023 2:00 PM EDT Radiology Service [...] 08, 2023 2:25 PM documented in this encounterCleveland Clinic [facility]10-24-2023 Miscellaneous Notes* Telephone Encounter - Kasia Dominique OCCA - 05/01/2023 2:52 PM EDT KRIS 04/03/23 NOV 06/18/23 * Telephone Encounter - Yamilet Mdidleton - 05/01/2023 2:36 PM EDT Patient has been identified by name and date of : Yes Requested Prescriptions Pending Prescriptions Disp Refills albuterol HFA (VENTOLIN HFA) 90 mcg/actuation inhaler 18 g 4 Sig: Inhale 2 Puffs as instructed every 4 hours as needed for wheezing/shortness of breath. RX INSTRUCTIONS: Pharmacy initiated this request. No need to notify patient. Yamilet Shien documented in this encounterCleveland Clinic [facility]10-11-2023 Miscellaneous Notes* Telephone Encounter - Yessenia Lim - 04/18/2023 11:47 AM EDT Faxed over fibroscan and patient information to [facility] Infectious disease. Asked for them to contactpatient direct to schedule. Yessenia Lim documented in this [facility]10-11-[facility]23 Instructions* Patient Instructions* Nicole Solano PA-C - 04/18/2023 11:08 AM EDT Chew all foods thoroughly and avoid tough meats, nuts, seeds, raw fruits and vegetables and dried fruit. Please go to ER if food is getting stuck and not completely passing through esophagus or trouble breathing occurs. Some soft diet food alternatives are included below: Hot cereal, tsped-ds-nca cereal soaked in milk, canned fruit, soft [...] this increases saliva production documented in this encounterCleveland Clinic [facility]10-11-2023 History of Present illness Narrative* Nicole Solano [...] stool softeners, can't remember why. Went to [facility] 02/2023 due to anal bleeding, blood counts [...] Abs Lymph 1.00 - 4.00 k/uL 2.59 Love% % 5.7 Abs Love <0.87 k/uL 0.63 Eosin% % 4.4 Abs [...] 118/72 Pulse 82 Ht 167.6 cm (5' 6) Wt 90.3 kg (199 lb) LMP 01/04/2023 [...] which included preparing to see the patient, fsaj-cg-hbok patient care, completing clinical documentation, obtaining and/or reviewing separately obtained history, performing a medically appropriate examination, counseling and educating the pat ient/family/caregiver, ordering medications, tests, or procedures, communicating with other HCPs (not separately reported), independently interpreting results (not separately reported), communicatingresults to the patient/family/caregiver, and care coordination (not separately reported). Nicole Solano PA-C April 18, 2023 11:10 AM documented in this encounterCleveland Clinic [facility]09-21-2023 Miscellaneous Notes* Telephone Encounter - Maya Hernandez [...] 11 Please advise. Thank you. Maya Hernandez, [place] documented in this encounterCleveland Clinic [facility]09-14-2023 Miscellaneous Notes* Telephone Encounter - Tamica Gamez [...] Thanks, Casey Young PA-C documented in this encounterCleveland Clinic [facility]09-08-2023 History of Present illness Narrative* Leny Hsu [...] Abs Lymph 1.00 - 4.00 k/uL 2.59 Love% % 5.7 Abs Love <0.87 k/uL 0.63 Eosin% % 4.4 Abs [...] Negative Ketones, Urine Trace, Negative Negative Specific [place], Ur 1.005 - 1.030 1.015 Hemoglobin/Blood,Ur Negative, [...] FLUZONE) Leny Hsu MD documented in this encounterCleveland Clinic [facility]08-25-2023 Miscellaneous Notes* Telephone Encounter - Tamica Gamez [...] you. Tamica Gamez LPN documented in this encounterCleveland Clinic [facility]08-01-2023 Miscellaneous Notes* Telephone Encounter - Danielle Powell [...] PHARMACY. Danielle Powell LPN documented in this encounterCleveland Clinic [facility]07-14-2023 Miscellaneous Notes* Telephone Encounter - Amita Hernández [...] 6 months. Amita Paul documented in this encounterCleveland Clinic [facility]07-14-2023 Procedure note* Leny Hsu MD - 01/19/2023 [...] D/C. Leny Hsu MD documented in this encounterCleveland Clinic [facility]07-14-2023 Instructions* Patient Instructions* Leny Hsu MD - [...] instructed by your physician, you may take qyhy-sfk-varpkwu pain medications as needed for discomfort. 5. [...] 3 to 4 weeks. documented in this encounterCleveland Clinic [facility]07-14-2023 History of Present illness Narrative* Leny Hsu [...] detail. Leny Hsu MD documented in this encounterCleveland Clinic [facility]07-10-2023 Instructions* Patient Instructions* Lydia Gonzalez APRN.CNP - 01/15/2023 1:52 PM EDT Low salt diet Compression hose if needed Elevate legs when sitting Walk documented in this encounterCleveland Clinic [facility]07-10-2023 History of Present illness Narrative* Lydia Gonzalez [...] need office visit for cryo Lydia Gonzalez APRN.MOTION STUDY ENGINEER Prescription instructions reviewed with patient as applicable. [...] which included preparing to see the patient, qioa-kc-wzrs patient care, completing clinical documentation, obtaining and/or reviewing separately obtained history, performing a medically appropriate examination, counseling and educating the pat ient/family/caregiver, and ordering medications, tests, or procedures. documented in this encounterCleveland Clinic [facility]07-07-2023 Instructions* Patient Instructions* Jeanette Ibarra PA-C - 01/12/2023 1:43 PM EDT Keep legs elevated Watch salt intake Compression stockings Follow up Sunday with pcp. documented in this encounterCleveland Clinic [facility]07-07-2023 History of Present illness Narrative* Jeanette Ibarra PA-C - 01/12/2023 1:42 PM EDT This note was created using iPlingriter. Subjective Maximus Bradley is a 47 year [...] discussed. Jeanette Ibarra PA-C documented in this encounterCleveland Clinic [facility]06-30-2023 Miscellaneous Notes* Telephone Encounter - Shraddha Tucker RN - 01/05/2023 3:44 PM EDT Last Office Visit: 12/13/2022 Future Office Visit: 03/16/2023 Requested Prescriptions Pending Prescriptions Disp Refills venlafaxine (EFFEXOR) 100 mg tablet 180 tablet 1 Sig: Take 1 tablet by mouth twice daily. Date of Last Labs: 12/13/2022 documented in this encounterCleveland Clinic [facility]06-07-2023 Nurse Note* Sis Wilson MA - 12/13/2022 3:11 PM EDT 12/13/22 1433 12/13/22 1509 12/13/22 1510 12/13/22 1511 BP: 118/82 Pulse: 80 Resp: 16 Height: 167.6 cm (5' 6) Weight: 92.5 kg (204 lb) Orthostatic BP: 108/74 94/68 97/63 BP Position: Supine Sitting Standing Orthostatic Pulse: 73 83 91 documented in this encounterCleveland Clinic [facility]06-07-2023 History of Present illness Narrative* Leny Hsu [...] 80 Resp 16 Ht 167.6 cm (5' 6) Wt 92.5 kg (204 lb) LMP 09/24/2021 [...] rest. Leny Hsu MD documented in this encounterCleveland Clinic [facility]06-06-2023 Miscellaneous Notes* Telephone Encounter - Sherine Cruz [...] you. Sherine Cruz RN documented in this encounterCleveland Clinic [facility]05-01-2023 History of Present illness Narrative* Kirk Cast MD - 11/06/2022 2:41 PM EDT [...] 03/29/2015 Reflux esophagitis Urinary retention Pablo Murphy PAST SURGICAL HISTORY Procedure Laterality Date COLONOSCOPY [...] entered by the nurse and reviewed by [place] Nursing Notes: Zoey Fishman LPN 11/06/2022 1:26 [...] C (98.2 F), height 167.6 cm (5' 6), weight 90.7 kg (200 lb), last menstrual [...] Cast III, MD documented in this encounterCleveland Clinic [facility]05-01-2023 Nurse Note* Zoey Fishman, ESCOBAR - 11/06/2022 1:18 PM EDT REVIEW OF [...] 2021 Zoey Fishman LPN documented in this encounterCleveland Clinic [facility]04-13-2023 Miscellaneous Notes* Telephone Encounter - Jenny Turk Cma - 10/19/2022 9:22 AM EDT No answer and no VM set up- will need to try back later Jenny Turk Cma * Telephone Encounter - Bradley Mcmullen APRN.CNP - 10/19/2022 8:16 AM EDT Please let patient know that her mammogram and ultrasound are abnormal. I have sent a referral to general surgery for a biopsy. documented in this encounterCleveland Clinic [facility]04-12-2023 History of Present illness Narrative* Alda Hoff [...] 18, 2022 3:25 PM documented in this encounterCleveland Clinic [facility]04-12-2023 History of Present illness Narrative* Cece Le RT(R) - 10/18/2022 2:30 PM EDT Radiology Service [...] 18, 2022 2:37 PM documented in this encounterCleveland Clinic [facility]03-17-2023 Miscellaneous Notes* Telephone Encounter - Tamica Gamez [...] you. Tamica Gamez LPN documented in this encounterCleveland Clinic [facility]02-27-2023 Miscellaneous Notes* Letter - Mammography Coordinator - 09/04/2022 1:16 PM EST September 05, 2022 PID: [id number] Maximus Bradley [id number] [place] [address] [id number] Dear Ms. Bradley, Your recent breast imaging exam on 09/01/2022 showed a possible finding that requires additional imaging studies for a complete evaluation. Most such findings are probably benign (not cancer). If you have a healthcare provider who ordered/prescribed your screening mammogram: Please call [phone] or [phone]: [phone] to schedule an appointment for your additional [...] and reports are kept on [facility] at [facility] as part of your permanent medical record, and are available for your continuing care. Thank you for allowing us to help in meeting your health care needs. Sincerely, Dr. Charles Interpreting Radiologist [facility] (Additional imaging) documented in this encounterCleveland Clinic [facility]02-24-2023 Miscellaneous Notes* Telephone Encounter - Maya Hernandez RN - 09/01/2022 3:25 PM EST Pt called and is notified of providers results. Pt voices understanding. Maya Hernandez RN * Telephone Encounter - Bradley Mcmullen APRN.CNP - 09/01/2022 3:22 PM EST Please let patient know her xray is normal. documented in this encounterCleveland Clinic [facility]02-22-2023 History of Present illness Narrative* Cherie Delvalle RT(R) - 08/30/2022 10:30 AM EST Radiology [...] 30, 2022 10:39 AM documented in this encounterCleveland Clinic [facility]02-22-2023 History of Present illness Narrative* Leny Hsu MD - 08/30/2022 10:08 AM EST Chief Complaint Patient presents with: ER F/U: RT ankle HPI Maximus Bradley is a 47 year old female who presents here today for ER Follow Up.. Patient evaluated at [facility] ED on 08/13 after she slipped in mud and twisted her right ankle developing pain over lateral aspect. Diagnosed with 1st degree sprain of ATFL. Did not need imaging based on Anvik ankle rules and was treated with NSAIDs [...] DILATION & CURETTAGE DX&/THER NONOBSTETRIC EGD W/O [facility] SPEC VARICIES INJ 01/30/2022 ESOPHAGOGASTRODUODENOSCOPY TRANSORAL DIAGNOSTIC [...] RIGHT Leny Hsu MD documented in this encounterCleveland Clinic [facility]02-08-2023 Miscellaneous Notes* Telephone Encounter - Bernie Carrasco LPN - 08/16/2022 3:27 PM EST Patient notified. Bernie Carrasco LPN * Telephone Encounter - Lydia Gonzalez APRN.CNP - 08/16/2022 1:25 PM EST Please call patient and let her know her thyroid level is in normal range. Platelets stable. Lydia Gonzalez APRN.CNP documented in this encounterCleveland Clinic [facility]02-07-2023 Instructions* Patient Instructions* Lydia Gonzalez APRN.CNP - 08/15/2022 2:23 PM EST Counseling and Psychiatry Services [facility] [address] [place] [address] *counseling [facility] [address] [facility] [address] *counsel[address] [address] *counseling Counsel[facility] [place] [address] [place] [address] *counseling and psychiatry [address] [address] *counseling [address] [address] *counseling [place] [address] [facility] [address] *counseling [place] [address] [place] [address] *counseling [facility] [address] [place] [address] [facility] [address] [address], [address] [place] [address] *counseling [facility] [address] [place], [place] [id number] [facility] [address] [place], [place] [address] *counseling [facility] [address] [facility] [address] [facility] [address] [place] [address] [facility] [address] [facility] [place] [address] *counseling [place] [address] [place] [address] *counseling [facility] [place] [facility] [address] [place], [place] [address] *counseling and psychiatry [facility], [address] [place], [place] [address] *psychiatry [facility] [phone] *grief counseling, individual and groups *If you ever experience a mental health crisis please call [phone], 911, Please verify with insurance provider for coverage documented in this encounterCleveland Clinic [facility]02-07-2023 History of Present illness Narrative* Lydia Gonzalez APRN.CNP - 08/15/2022 2:08 PM EST 08/15/2022 Patient presents with: Physical SUBJECTIVE: This is a 47 year old that is here today for Above Complaints. Recent visit to [facility] for right ankle sprain otherwise has been [...] (FLONASE) 50 mcg/actuation nasal spray Use 1 [place] in each nostril twice daily. Rinse mouth [...] No history of dysuria, frequency or incontinence APPLICATION TECHNICAL DESIGNER: Negative for abnormal vaginal bleeding, abnormal vaginal [...] 93 Resp 18 Ht 163.2 cm (5' 4.25) Wt 89.3 kg (196 lb 12.8 oz) [...] Abs Lymph 1.00 - 4.00 k/uL 2.32 Love% % 6.0 Abs Love <0.87 k/uL 0.58 Eosin% % 2.3 Abs [...] if symptoms fail to improve Lydia Gonzalez APRN.CNP Prescription instructions reviewed with patient as applicable. Patient advised if symptoms do not improve or if symptoms worsen sooner, to contact their primary care physician. Potential red flag symptoms discussed with the patient. Reviewed appropriate action plan to take if red flag symptoms occur. Patient agreeable to treatment plan. documented in this encounterCleveland Clinic [facility]02-07-2023 Miscellaneous Notes* Telephone Encounter - Gala Gonzalez [...] of plan of care. documented in this encounterCleveland Clinic [facility]02-05-[address] [facility] August 13, 2022 3:32pm Note Date/Time August 13, 2022 3 :30pm [facility] Medical Records Department [address] [place] [address] Emergency Department Summary 08/13/22 MR#: [id number] Acct: [id number] Name: MAXIMUS BRADLEY Rep #:[id number] : [...] of the anterior talofibular ligament. Per the Anvik ankle rule imaging is not indicated. Patient [...] a day 3. Take Naprosyn as prescribed fsywuf-qqk-efbxg. 4. Do not wear heeled shoes. Wear [...] your Primary Care Provider. Call [facility] ([phone]) or report to the closest Emergency Room. Call 911 if necessary. 08/13/22 1532 <Electronically signed by Kain Ivy MD> Cosigner Signature (if applicable): CC: Dr. Isaac Hsu MD ~ Signed [facility] Work Phone: 1(109) 608-552902-05-2023 Hospital Discharge instructions Additional Instructions 1. Draw the alphabet with your foot 4-6 times a day 2. Apply ice 6-10 times a day 3. Take Naprosyn as prescribed qmhsiw-oew-eqfke. 4. Do not wear heeled shoes. Wear shoes with out a heel cord elevation. 5. You should not go up any inclines or ladders until you are pain-free. 6. Wear Aircast during the day for support and stability. You may remove prior to going to bed.[facility] Work Phone: 1(188) 893-838611-15-2022 Miscellaneous Notes* Telephone Encounter - Shraddha Tucker [...] of Last Labs: 03/31/2022 documented in this encounterCleveland Clinic [facility]11-03-2022 History of Present illness Narrative* Giana Wagner, RT(R) - 05/11/2022 11:20 AM EDT Radiology [...] 2022 TIME: 2:00 PM documented in this encounterCleveland Clinic [facility]10-26-2022 Miscellaneous Notes* Telephone Encounter - Jessica Marsh LPN - 05/03/2022 4:08 PM EDT Pharmacy calls in requesting the following refill(s): Requested Prescriptions Pending Prescriptions Disp Refills busPIRone (BUSPAR) 5 mg tablet 180 tablet 1 Sig: Take 1 tablet by mouth twice daily. documented in this encounterCleveland Clinic [facility]10-20-2022 History of Present illness Narrative* Nicole Solano PA-C - 04/27/2022 12:58 PM EDT CHIEF COMPLAINT: Patient presents with: Recheck: EGD 01/30/22 HPI Maximus Bradley is a 46 year old female here today for Recheck (EGD 01/30/22 ). Seen last for alternating bowel habits, hiatal hernia with GERD. TSH levels were elevated, rest of basic labs/Celiac serology WNL. Reported GES from [facility] last year that was normal. Advised to start Bentyl PRN, switched from Prilosec to Protonix 40 mg BID. Includes that this helped more for her reflux. Bentyl not helping at all for her abdominal pain. Persistent LUQ, knot sensation, increased abd bloating, 8-9/10, intermittent . Bms [...] Reports GES in the past year with [facility] that was normal. Denies unintentional weight loss. [...] (FLONASE) 50 mcg/actuation nasal spray Use 1 [place] in each nostril twice daily. Rinse mouth [...] EXAM BP 114/76 Pulse 102 Ht 5' 6 (1.68m) Wt 194 lb 3.2 oz (88.1kg) [...] in past year, reports normal GES w/ [facility] last year - Will plan to get [...] which included preparing to see the patient, cgxl-bn-nrsl patient care, completing clinical documentation, obtaining and/or reviewing separately obtained history, performing a medically appropriate examination, counseling and educating the pat ient/family/caregiver, ordering medications, tests, or procedures, communicating with other HCPs (not separately reported), independently interpreting results (not separately reported), communicatingresults to the patient/family/caregiver, and care coordination (not separately reported). Nicole Solano PA-C April 27, 2022 1:13 PM documented in this encounterCleveland Clinic [facility]09-22-2022 Instructions* Patient Instructions* Nicole Solano PA-C - [...] many names. Some people call this condition nervous stomach. Others call it irritable bowel, irritable colon, or spastic colon. The condition most oftenoccurs in people in [...] tolerance for pain. A number offactors can trigger IBS, including certain foods, medicines, and emotional [...] you or may refer you to a operations director. A operations director is a physician who specializes in the [...] foods bring on bouts of IBS. Common foodtriggers of IBS are red peppers, green onions, red wine, wheat, and milk. You can also ask a train gate attendant for samples of healthy diets to follow. documented in this encounterCleveland Clinic [facility]09-22-2022 History of Present illness Narrative* Nicole Solano [...] Reports GES in the past year with [facility] that was normal. Denies unintentional weight loss. [...] sugar 03/29/2015 Reflux esophagitis Urinary retention Pablo Childersoney PAST SURGICAL HISTORY Procedure Laterality Date COLONOSCOPY [...] (FLONASE) 50 mcg/actuation nasal spray Use 1 [place] in each nostril twice daily. Rinse mouth [...] Examination: BP 116/80 Pulse 98 Ht 5' 6 (1.68m) Wt 197 lb 3.2 oz (89.4kg) [...] which included preparing to see the patient, wjsf-tn-tidp patient care, completing clinical documentation, obtaining and/or reviewing separately obtained history, performing a medically appropriate examination, counseling and educating the pat ient/family/caregiver, ordering medications, tests, or procedures, communicating with other HCPs (not separately reported), independently interpreting results (not separately reported), communicatingresults to the patient/family/caregiver, and care coordination (not separately reported). Nicole Solano PA-C March 30, 2022 1:36 PM documented in this encounterCleveland Clinic [facility]09-06-2022 Miscellaneous Notes* Telephone Encounter - Consuelo Arreguin RN - 03/14/2022 1:42 PM EDT Patient has been identified by name and date of : Yes Pharmacy phones for refill(s): Requested Prescriptions Pending Prescriptions Disp Refills fluticasone (FLONASE) 50 mcg/actuation nasal spray 16 g 1 Sig: Use 1 [place] in each nostril twice daily. Rinse mouth [...] you. Consuelo Arreguin RN documented in this encounterCleveland Clinic [facility]07-13-2022 Miscellaneous Notes* Telephone Encounter - Sherine Cruz [...] you. Sherine Cruz RN documented in this encounterCleveland Clinic [facility]07-07-2022 History of Present illness Narrative* Francisco J Pino MD - 01/12/2022 1:10 PM EDT Associated Order(s): Large Joint Arthro/Inj: R subacromial bursa Francisco J Pino MD Department of Orthopaedics Orthopaedics [address] [facility] [address] Dept: [phone] Dept January 12, 2022 Consultation requested by [...] subacromial bursa Informed Consent Consent Obtained: Verbal [place] Protocol A moment to CARE was completed. [...] tendon. No rotator cuff tear. Glenohumeral osteoarthritis. Jack Tamp Operator: DIOGENES Transcribe Date/Time: Dec 21 2021 2:45P Dictated by : NITA PEREA MD This examination was interpreted and the report reviewed and electronically signed by: NITA PEREA MD on Dec 21 2021 2:51PM EST Results-Findings * * *Final Report* * * DATE OF EXAM: Dec 21 2021 2:38PM [facility] 0240 - MRI SHOULDER WO IVCON RT [...] sugar 03/29/2015 Reflux esophagitis Urinary retention Pablo Arringotn Past Surgical History: PAST SURGICAL HISTORY Procedure [...] (FLONASE) 50 mcg/actuation nasal spray Use 1 [place] in each nostril twice daily. Rinse mouth [...] or electronic medical record. Leny Hsu [address] [facility] [address] Leny Hsu MD [address] [facility] [address] Francisco J Pino MD documented in this encounterCleveland Clinic [facility]07-05-2022 Miscellaneous Notes* Telephone Encounter - Bernie Carrasco [...] I would take whatever they recommended in [facility] for pain. Lydia Gonzalez APRN.CNP * Telephone Encounter - Whit Joshi Pss - 01/10/2022 12:09 PM EDT Maximus Vang Kirk is calling Leny Hsu MD today she is calling to request pain medication for the fracture in her right wrist; she was seen at [facility] on 01/03/22. She is using [facility] in [place]. Please call patient today. Patient has been identified by name and birthdate. Duration of symptoms: N/A Person calling: self Call patient at: on cell [phone] (home) [phone] (work) [phone] (cell) Was an appointment scheduled: No Closing statement: Results or non-symptom based questions: Thank you for calling [facility], your call will be returned within the next business day. Whit Joshi Pss documented in this encounterCleveland Clinic [facility]06-29-2022 Miscellaneous Notes* Telephone Encounter - Maya Hernandez RN - 01/04/2022 3:44 PM EDT Pt called in and reports she was in [facility] yesterday and they found a fracture, and the provider placeda Volar splint on her. Pt is now reporting numbness to her thumb states, I put my had down it's numb, I triy to put it in the air it's still numb.. Pt was asked if the numbness was constant and shereports it is. Pt denies the fingers being a different color or cold. Report the knuckles on the index and middle finger of that hand a slightly swollen. Called to [facility] and provider said to remove splint and come back in. documented in this encounterCleveland Clinic [facility]06-28-2022 History of Present illness Narrative* Dani Burgos APRN.MOTION STUDY ENGINEER - 01/03/2022 3:54 PM EDT Subjective HPI [...] (FLONASE) 50 mcg/actuation nasal spray Use 1 [place] in each nostril twice daily. Rinse mouth [...] of care. This note was generated using Vanu software. It may contain errors in wording, punctuation, or spelling. Dani Burgos APRN.BHARATHI documented in this encounterCleveland Clinic [facility]06-16-2022 Miscellaneous Notes* Telephone Encounter - Sis Fishman - 12/22/2021 1:34 PM EDT Done. Thank you, Sis Fishman * Telephone Encounter - Jenny Pimentel MA - 12/21/2021 4:07 PM EDT Please assist patient with scheduling ORTHO. Jenny Pimentel MA * Telephone Encounter - Leny Hsu MD - 12/21/2021 3:53 PM EDT Referral order placed as requested. * Telephone Encounter - Sandhya Watts LPN - 12/21/2021 3:17 PM EDT Spoke with [...] further evaluation and possibly steroid injection Sandhya Watts LPN documented in this encounterCleveland Clinic [facility]06-15-2022 History of Present illness Narrative* RT Prabhjot(R) [...] 21, 2021 2:28 PM documented in this encounterCleveland Clinic [facility]06-07-2022 History of Present illness Narrative* Kirk Cast MD - 12/13/2021 2:39 PM EDT HISTORY AND PHYSICAL Maximus Bradley 1975 REFERRING PHYSICIAN: Kirk Cast MD CHIEF [...] (FLONASE) 50 mcg/actuation nasal spray Use 1 [place] in each nostril twice daily. Rinse mouth [...] C (98.5 F), height 167.6 cm (5' 6), weight 85.9 kg (189 lb 6.4 oz), [...] Cast III, MD documented in this encounterCleveland Clinic [facility]06-03-2022 History of Present illness Narrative* Inés Elizalde RT(R) - 12/09/2021 8:00 AM EDT RADIOLOGY [...] radiation safety can be found usingthis link: [email or web address] SIGNATURE: RT Bay(R) PATIENT NAME: Maximus Bradley DATE: December 09, 2021 TIME: 8:35 AM PAGER/CONTACT #: documented in this encounterCleveland Clinic [facility]05-31-2022 History of Present illness Narrative* Kirk Cast MD - 12/06/2021 2:10 PM EDT HISTORY AND PHYSICAL Maximus Bradley 1975 REFERRING PHYSICIAN: Self CHIEF COMPLAINT: Established [...] (FLONASE) 50 mcg/actuation nasal spray Use 1 [place] in each nostril twice daily. Rinse mouth [...] resp. rate 16, height 167.6 cm (5' 6), weight 85.3 kg (188 lb), last menstrual [...] Cast III, MD documented in this encounterCleveland Clinic [facility]05-27-2022 Miscellaneous Notes* Telephone Encounter - Zoey Fishman [...] to do anything. Pain is about a 4. documented in this encounterCleveland Clinic [facility]05-27-2022 Miscellaneous Notes* Telephone Encounter - Shraddha Abdalla [...] follow-up to discuss continued pain. Lydia Gonzalez APRN.CNP * Telephone Encounter - Bernie Carrasco LPN - 12/02/2021 11:14 AM EDT Rehab discharge summary placed in FITTER / WELDER inbox. Bernie Carrasco LPN * Telephone Encounter - Lydia Gonzalez APRN.CNP - 12/02/2021 10:50 AM EDT I have not received anything yet Lydia Gonzalez APRN.BHARATHI * Telephone Encounter - Consuelo Arreguin RN - 12/02/2021 8:48 AM EDT Patient calling to update Lydia Gonzalez's office that the office should be receiving a fax from [facility] regarding orders for patient. Thank you. documented in this encounterCleveland Clinic [facility]05-23-2022 Nurse Note* Jannette Marrero RN - 11/28/2021 [...] recommendations. Jannette Marrero RN documented in this encounterCleveland Clinic [facility]05-23-2022 History and physical note * Kirk Cast [...] SI or HI. Doing physical therapy through [facility]. Does not thinks the meloxicam helps her [...] (FLONASE) 50 mcg/actuation nasal spray Use 1 [place] in each nostril twice daily. Rinse mouth [...] - follow-up if symptoms persist Lydia Gonzalez APRN.BHARATHI UPDATED HISTORY AND PHYSICAL EXAMINATION SERVICE DATE: [...] 2021 TIME: 9:26 AM documented in this encounterCleveland Clinic [facility]04-27-2022 Miscellaneous Notes* Telephone Encounter - Bernie Carrasco LPN - 11/02/2021 3:29 PM EDT Patient notified. Voiced understanding. Bernie Carrasco LPN * Telephone Encounter - Lydia Gonzalez APRN.BHARATHI - 11/02/2021 3:00 PM EDT BP improved. [...] PCP. Maryam Dover LPN documented in this encounterCleveland Clinic [facility]04-27-2022 History of Present illness Narrative* Maryam Dover [...] PCP. Maryam Dover LPN documented in this encounterCleveland Clinic [facility]04-08-2022 Miscellaneous Notes* Telephone Encounter - HARRISON Marcano - 10/14/2021 2:50 PM EDT Paperwork faxed per providers request. HARRISON Marcano * Telephone Encounter - Lydia Gonzalez APRN.CNP - 10/14/2021 2:37 PM EDT Please fax paperwork in my out box for PT to [phone]. Thanks, Lydia Gonzalez APRN.BHARATHI documented in this encounterCleveland Clinic [facility]02-15-2022 Miscellaneous Notes* Telephone Encounter - Maya Hernandez [...] you. Maya Hernandez RN documented in this encounterCleveland Clinic [facility]09-21-2015 History of Past illness Narrative* Problem Noted [...] of this encounter (statuses as of 10/14/2021) [facility] of Past illness Narrative* Problem Noted [...] of this encounter (statuses as of 11/02/2021) [facility] of Past illness Narrative* Problem Noted [...] of this encounter (statuses as of 11/29/2021) [facility] of Past illness Narrative* Problem Noted [...] of this encounter (statuses as of 12/02/2021) [facility] of Past illness Narrative* Problem Noted [...] of this encounter (statuses as of 12/02/2021) [facility] of Past illness Narrative* Problem Noted [...] of this encounter (statuses as of 12/06/2021) [facility] of Past illness Narrative* Problem Noted [...] of this encounter (statuses as of 12/10/2021) [facility] of [facility] illness Narrative* Problem Noted [...] of this encounter (statuses as of 12/13/2021) [facility] of [facility] illness Narrative* Problem Noted [...] of this encounter (statuses as of 12/22/2021) [facility] of Past illness Narrative* Problem Noted [...] of this encounter (statuses as of 12/22/2021) [facility] of [facility] illness Narrative* Problem Noted [...] of this encounter (statuses as of 01/03/2022) [facility] of [facility] illness Narrative* Problem Noted [...] of this encounter (statuses as of 01/04/2022) [facility] of [facility] illness Narrative* Problem Noted [...] of this encounter (statuses as of 01/10/2022) [facility] Narrative* Problem Noted [...] of this encounter (statuses as of 01/12/2022) [facility] of [facility] Narrative* Problem Noted [...] of this encounter (statuses as of 01/18/2022) [facility] Narrative* Problem Noted [...] of this encounter (statuses as of 01/25/2022) [facility] of [facility] Narrative* Problem Noted [...] of this encounter (statuses as of 01/25/2022) [facility] illness Narrative* Problem Noted [...] of this encounter (statuses as of 03/07/2022) [facility] of [facility] Narrative* Problem Noted [...] of this encounter (statuses as of 03/14/2022) [facility] Narrative* Problem Noted [...] of this encounter (statuses as of 03/20/2022) [facility] Narrative* Problem Noted [...] of this encounter (statuses as of 03/30/2022) [facility] Narrative* Problem Noted [...] of this encounter (statuses as of 04/27/2022) [facility] Narrative* Problem Noted [...] of this encounter (statuses as of 05/03/2022) [facility] Narrative* Problem Noted [...] of this encounter (statuses as of 05/23/2022) [facility] Narrative* Problem Noted [...] of this encounter (statuses as of 07/02/2022) [facility] Narrative* Problem Noted [...] of this encounter (statuses as of 08/15/2022) [facility] Narrative* Problem Noted [...] of this encounter (statuses as of 08/16/2022) [facility] Narrative* Problem Noted [...] of this encounter (statuses as of 08/16/2022) [facility] History of Past illness Narrative* Problem Noted [...] of this encounter (statuses as of 08/30/2022) [facility] History of Past illness Narrative* Problem Noted [...] of this encounter (statuses as of 09/01/2022) [facility] History of Past illness Narrative* Problem Noted [...] of this encounter (statuses as of 09/06/2022) [facility] History of Past illness Narrative* Problem Noted [...] of this encounter (statuses as of 09/22/2022) [facility] History of Past illness Narrative* Problem Noted [...] of this encounter (statuses as of 11/07/2022) [facility] History of Past illness Narrative* Problem Noted [...] of this encounter (statuses as of 11/15/2022) [facility] History of Past illness Narrative* Problem Noted [...] of this encounter (statuses as of 12/13/2022) [facility] History of Past illness Narrative* Problem Noted [...] of this encounter (statuses as of 12/14/2022) [facility] History of Past illness Narrative* Problem Noted [...] of this encounter (statuses as of 01/08/2023) [facility] History of Past illness Narrative* Problem Noted [...] of this encounter (statuses as of 01/12/2023) [facility] History of Past illness Narrative* Problem Noted [...] of this encounter (statuses as of 01/16/2023) [facility] History of Past illness Narrative* Problem Noted [...] of this encounter (statuses as of 01/19/2023) [facility] History of Past illness Narrative* Problem Noted [...] of this encounter (statuses as of 01/19/2023) [facility] History of Past illness Narrative* Problem Noted [...] of this encounter (statuses as of 02/06/2023) [facility] History of Past illness Narrative* Problem Noted [...] of this encounter (statuses as of 03/02/2023) [facility] History of Past illness Narrative* Problem Noted [...] of this encounter (statuses as of 03/17/2023) [facility] History of Past illness Narrative* Problem Noted [...] of this encounter (statuses as of 03/23/2023) [facility] History of Past illness Narrative* Problem Noted [...] of this encounter (statuses as of 03/30/2023) [facility] History of Past illness Narrative* Problem Noted [...] of this encounter (statuses as of 04/18/2023) [facility] History of Past illness Narrative* Problem Noted [...] of this encounter (statuses as of 04/18/2023) [facility] History of Past illness Narrative* Problem Noted [...] of this encounter (statuses as of 05/01/2023) [facility] History of Past illness Narrative* Problem Noted [...] of this encounter (statuses as of 05/09/2023) [facility] History of Past illness Narrative* Problem Noted [...] of this encounter (statuses as of 05/09/2023) [facility] History of Past illness Narrative* Problem Noted [...] of this encounter (statuses as of 05/09/2023) [facility] History of Past illness Narrative* Problem Noted [...] of this encounter (statuses as of 05/13/2023) [facility] History of Past illness Narrative* Problem Noted [...] of this encounter (statuses as of 05/13/2023) [facility] History of Past illness Narrative* Problem Noted [...] of this encounter (statuses as of 05/13/2023) [facility] History of Past illness Narrative* Problem Noted [...] of this encounter (statuses as of 05/13/2023) [facility] History of Past illness Narrative* Problem Noted [...] of this encounter (statuses as of 05/15/2023) [facility] History of Past illness Narrative* Problem Noted [...] of this encounter (statuses as of 05/25/2023) [facility] History of Past illness Narrative* Problem Noted [...] of this encounter (statuses as of 05/29/2023) [facility] History of Past illness Narrative* Problem Noted [...] of this encounter (statuses as of 06/05/2023) [facility] History of Past illness Narrative* Problem Noted [...] of this encounter (statuses as of 06/07/2023) [facility] History of Past illness Narrative* Problem Noted [...] of this encounter (statuses as of 06/15/2023) [facility] Diagnosis Essential hypertension with goal blood pressure less than 140/90- Primary [facility] Diagnosis Screening for colon cancer Special screening for malignant neoplasms, colon Screening for malignant neoplasm of the rectum documented [facility] this encounter [facility] noteNo assessment information availableWOhio State Health System Work Phone: Evaluation note* Diagnosis Epigastric pain- Primary Abdominal pain, epigastric Nausea Nausea alone [facility] Diagnosis Nausea Nausea alone [facility] Diagnosis Epigastric pain- Primary Abdominal pain, epigastric Nausea Nausea alone [facility] Acute pain of right shoulder- Primary [facility] Diagnosis Right wrist pain- Primary Pain in joint, forearm [facility] Diagnosis Essential hypertension with goal blood pressure less than 140/90 [facility] Diagnosis Migraine without aura and without status migrainosus, not intractable Migraine without aura, without mention of intractable migraine without mention of status migrainosus [facility] Diagnosis Primary osteoarthritis of right shoulder- Primary Primary localized osteoarthrosis, shoulder region Acute pain of right shoulder Impingement syndrome of right shoulder Other affections of shoulder region, not elsewhere classified [facility] Diagnosis Gastroesophageal reflux disease with esophagitis without hemorrhage Urinary retention Retention of urine, unspecified [facility] Diagnosis Hiatal hernia with GERD without [...] Nausea Nausea alone [facility] Migraine without aura and without status migrainosus, not intractable Migraine without aura, without mention of intractable migraine without mention of status migrainosus [facility] Diagnosis Moderate episode of recurrent major depressive disorder (HCC) [facility] Annual physical exam- Primary [...] depressive disorder (HCC) [facility] Diagnosis Sprain of ligament of right ankle, subsequent encounter- Primary [facility] Diagnosis Abnormal mammogram- Primary Abnormal mammogram, unspecified [facility] Diagnosis Syncope and collapse- Primary Elbow pain, right Pain in joint, upper arm [facility] Diagnosis Moderate episode of recurrent major depressive disorder (HCC) [facility] Diagnosis Peripheral edema- Primary Edema [facility] Diagnosis Bilateral swelling of feet- Primary Swelling of limb Plantar wart [facility] Diagnosis Plantar wart- Primary S/P cryotherapy of skin lesion [facility] Diagnosis Migraine without aura and without status migrainosus, not intractable Migraine without aura, without mention of intractable migraine without mention of status migrainosus [facility] Diagnosis Depression, unspecified depression type [facility] Diagnosis Claudication (HCC)- Primary Peripheral vascular disease, unspecified Migraine without aura and without status migrainosus, not intractable Migraine without aura, without mention of intractable migraine without mention of status migrainosus Essential hypertension Unspecified essential hypertension Acquired hypothyroidism Unspecified hypothyroidism Anxiety with depression Encounter for immunization Need for other specified prophylactic vaccination against single bacterial disease [facility] Diagnosis Hiatal hernia with GERD without esophagitis- Primary Esophageal dysphagia Dysphagia, pharyngoesophageal phase Irritable bowel syndrome with both constipation and diarrhea Fatty metamorphosis of liver Other chronic nonalcoholic liver disease [facility] Diagnosis Irritable bowel syndrome with both constipation and diarrhea [facility] Diagnosis Esophageal dysphagia Dysphagia, pharyngoesophageal phase documented in this encounter [facility]* Diagnosis Abnormal mammogram Abnormal mammogram, unspecified [facility] Diagnosis Hiatal hernia with GERD without esophagitis Bilateral upper abdominal pain Abdominal pain, right upper quadrant Abdominal distension (gaseous) Flatulence, eructation, and gas pain Nausea Nausea alone [facility] Diagnosis Inconclusive mammogram [facility] Diagnosis Migraine without aura and without status migrainosus, not intractable- Primary Migraine without aura, without mention of intractable migraine without mention of status migrainosus [facility] Diagnosis Migraine without aura and without status migrainosus, not intractable Migraine without aura, without mention of intractable migraine without mention of status migrainosus [facility] Diagnosis Hiatal hernia with GERD without esophagitis Esophageal dysphagia Dysphagia, pharyngoesophageal phase [facility] Diagnosis Migraine without aura and without status migrainosus, not intractable- Primary Migraine without aura, without mention of intractable migraine without mention of status migrainosus Syncope and collapse Orthostatic lightheadedness Dizziness and giddiness Obstructive sleep apnea Obstructive sleep apnea (adult) (pediatric) Neuropathy Mononeuritis of unspecified site Blurred vision, bilateral Other specified visual disturbances documented [facility] this encounter [facility] Diagnosis Migraine without aura and without [...] recurrence not specified [facility] Diagnosis Annual physical exam- Primary [...] serious comorbidity present [facility] Diagnosis Hiatal hernia with GERD without esophagitis Esophageal dysphagia Dysphagia, pharyngoesophageal phase documented in this encounter [facility]* Diagnosis Depression, unspecified depression type Seasonal allergic rhinitis, unspecified trigger [facility] Diagnosis Left tennis elbow- Primary Lateral epicondylitis of elbow [facility]* Diagnosis Microcytic anemia- Primary Iron deficiency anemia, unspecified Thrombocytosis Essential thrombocythemia documented in this encounter [facility]* Diagnosis Callus of foot- Primary Corns and callosities documented [facility] this encounter [facility]* Diagnosis Migraines- Primary Migraine, unspecified, without [...] deficiency anemia, unspecified [facility]* Diagnosis Migraines- Primary Migraine, unspecified, without [...] Dysphagia, pharyngoesophageal phase documented in this encounter [facility] note* Diagnosis Migraines- Primary Migraine, unspecified, without [...] ankle, subsequent encounter [facility]* Diagnosis Migraines- Primary Migraine, unspecified, without [...] in joint, forearm documented in this encounter [facility] note* Diagnosis Migraines- Primary Migraine, unspecified, without [...] Neck pain Cervicalgia documented in this encounter [facility] note* Diagnosis Migraines- Primary Migraine, unspecified, without [...] injury, initial encounter documented in this encounter [facility] note* Diagnosis Migraines- Primary Migraine, unspecified, without [...] of both eyes [facility]* Diagnosis Migraines- Primary Migraine, unspecified, without [...] of status migrainosus documented [facility]* Diagnosis Migraines- Primary Migraine, unspecified, without [...] Dizziness and giddiness documented in this [facility]* Diagnosis Migraines- Primary Migraine, unspecified, without [...] depressive disorder (HCC) documented in this encounter [facility]* Diagnosis Migraines- Primary Migraine, unspecified, without [...] rhinitis, unspecified trigger [facility] Diagnosis Migraines- Primary Migraine, unspecified, without [...] other specified site documented in this encounter [facility] note* Diagnosis Migraines- Primary Migraine, unspecified, without [...] other specified site documented in this encounter [facility] note* Diagnosis Migraines- Primary Migraine, unspecified, without [...] single bacterial disease documented in this encounter [facility] note* Diagnosis Migraines- Primary Migraine, unspecified, without [...] Hypertrophy of breast documented in this encounter [facility] note* Diagnosis Migraines- Primary Migraine, unspecified, without [...] Hypertrophy of breast [facility] Diagnosis Migraines- Primary Migraine, unspecified, without [...] whether esophagitis present documented in this encounter [facility] note* Diagnosis Migraines- Primary Migraine, unspecified, without [...] for breast cancer documented in this encounter [facility] note* Diagnosis Migraines- Primary Migraine, unspecified, without [...] whether esophagitis present documented in this encounter [facility] note* Diagnosis Migraines- Primary Migraine, unspecified, without [...] Generalized anxiety disorder documented in this encounter [facility] note* Diagnosis Migraines- Primary Migraine, unspecified, without [...] female genital organs documented in this encounter [facility] note* Diagnosis Migraines- Primary Migraine, unspecified, without [...] finding Inconclusive mammogram documented in this encounter [facility] note* Diagnosis Migraines- Primary Migraine, unspecified, without [...] of status migrainosus [facility] Diagnosis Migraines- Primary Migraine, unspecified, without [...] Generalized anxiety disorder documented in this encounter [facility] note* Diagnosis Migraines- Primary Migraine, unspecified, without [...] rhinitis, unspecified trigger [facility] Diagnosis Migraines- Primary Migraine, unspecified, without [...] node enlargement Enlargement of lymph nodes Acute pyelonephritis Acute pyelonephritis without lesion of renal medullary necrosis [facility] Diagnosis Migraines- Primary Migraine, unspecified, without [...] Moderate episode of recurrent major depressive disorder (HCC)- Primary CRISTINO (generalized anxiety disorder) Generalized anxiety disorder Migraine without aura and without status migrainosus, not intractable Migraine without aura, without mention of intractable migraine without mention of status migrainosus Acquired hypothyroidism Unspecified hypothyroidism documented in this encounter [facility] Discharge instructionsAdditional Instructions 1. Take antibiotics until gone 2. If you are not better within 3 days follow-up with Dr. Hsu. 3. Drink plenty of fluidsWOhio State Health System Work Phone: Reason for referral (narrative)* Outpatient Procedure (Routine) - Closed Specialty Diagnoses / Procedures Referred By Giovani t Referred To Contact [facility] Diagnoses Screening for colon cancer Screening for malignant neoplasm of the rectum Procedures COLONOSCOPY SCREENING COLONOSCOPY FLX DX W/COLLJ SPEC WHEN PFRMD Lydia Gonzalez APRN.MOTION STUDY ENGINEER [address] [place] [address] [facility] [address] [place] [address] Referral ID Status Reason Start Date Expiration Date V isits Requested Visits Authorized [id number] Closed Auto-Generate d Referral 10/19/2021 10/19/2022 1 1 [facility] for referral (narrative)* Diagnostic Procedure Only (Routine) - Authorized Specialty Diagnoses / Procedures Referred By Contac t Referred To Contact [facility]LECULAR [facility] FUNCTIONAL IMAGING Diagnoses Nausea Procedures NM HEPATOBILIARY W EF AND/OR RX HEPATOBIL SYST IMAG INC GB W/PHARMA INTERVKrik Fitzgerald MD [address] [facility] [place] [id number] Molecular & Functional Imaging [address] [place] [address] Referral ID Status Reason Start Date Expiration Date Visits Requested Visits Authorized [id number] Authorized Auto-Generat ed Referral 12/06/2021 01/05/2023 1 1 [facility] for referral (narrative)* Diagnostic Procedure Only (Routine) - Closed Specialty Diagnoses / Procedures Referred By Contac t Referred To Contact [facility] Diagnoses Nausea Procedures NM HEPATOBILIARY W EF AND/OR RX HEPATOBIL SYST IMAG INC GB W/PHARMA INTERVKirk Fitzgerald MD [address] [place] [address] Molecular & Functional Imaging [address] [place] [address] Referral ID Status Reason Start Date Expiration Date V isits Requested Visits Authorized [id number] Closed Auto-Generate d Referral 12/06/2021 01/05/2023 1 1 [facility] for referral (narrative)* Diagnostic Procedure Only (Routine) - Authorized Specialty Diagnoses / Procedures Referred By Contac t Referred To Contact US IMAGING Diagnoses Epigastric pain Nausea Procedures US ABD RT UPPER QUADRANT US ABDOMINAL REAL TIME W/IMAGE LIMITED Kirk Cast MD [address] [place] [address] Us Imaging Referral ID Status Reason Start Date Expiration Date Visits Requested Visits Authorized [id number] Authorized Auto-Generat ed Referral 12/13/2021 01/12/2023 1 1 * Outpatient Procedure (Routine) - Authorized Specialty Diagnoses / Procedures [facility] Diagnoses Epigastric pain Nausea Procedures EGD DIAGNOSTIC ESOPHAGOGASTRODUODENOSC OPY TRANSORAL DIAGNOSTIC Kirk Cast MD [address] [place] [address] [facility] [address] [place] [address] Referral ID Status Reason Start Date Expiration Date Visits Requested Visits Authorized [id number] Authorized Auto-Generat ed Referral 12/13/2021 12/13/2022 1 1 [facility] for referral (narrative)* Diagnostic Procedure Only (Urgent) - Closed Specialty Diagnoses / Procedures [facility] Referred To Contact XR IMAGING Diagnoses Right wrist pain Procedures XR WRIST INJURY 4V PA/LAT/OBL/SCAPH RIGHT RADEX WRIST COMPLETE MINIMUM 3 VIEWS Dani Burgos, BALDOMERO.MOTION STUDY ENGINEER [address] [place] [address] Xr Imaging Referral ID Status Reason Start Date Expiration Date V isits Requested Visits Authorized [id number] Closed Auto-Generate d Referral 01/03/2022 02/02/2023 1 1 [facility] for referral (narrative)* Diagnostic Procedure Only (Routine) - Authorized Specialty Diagnoses / Procedures Referred By Giovani Referred To Contact [facility] Diagnoses Encounter for screening mammogram for breast cancer Procedures PARTH SCREENING SCREENING MAMMOGRAPHY BI 2-VIEW BREAST INC CAD Lydia Gonzalez APRN.CNP [address] [place] [address] [facility] [address] [place] [address] Referral ID Status Reason Start Date Expiration Date Visits Requested Visits Authorized [id number] Authorized Auto-Generat ed Referral 08/15/2022 09/14/2023 1 1 [facility] for referral (narrative)* Diagnostic Procedure Only (Routine) - Closed Specialty Diagnoses / Procedures Referred By Giovani mercer Referred To Contact XR IMAGING Diagnoses Sprain of ligament of right ankle, subsequent encounter Procedures XR ANKLE GENERAL 3V AP/LAT/OBL RIGHT RADEX ANKLE COMPLETE MINIMUM 3 VIEWS Leny Hsu MD [address] [place] [address] Xr Imaging Referral ID Status Reason Start Date Expiration Date V isits Requested Visits Authorized [id number] Closed Auto-Generate d Referral 08/30/2022 09/29/2023 1 1 [facility] for referral (narrative)* Outpatient Procedure (Routine) - Pending Review Specialty Diagnoses / Procedures Referred By Giovani Referred To Contact [facility] Diagnoses Syncope and collapse Procedures ECG COMPLETE ECG ROUTINE ECG W/LEAST 12 LDS W/I&R Leny Hsu MD [address] [place] [address] [facility] [address] [place] [address] Referral ID Status Reason Start Date Expiration Date Visits Requested Visits Authorized [id number] Pending Review Auto-Generat ed Referral 12/13/2022 12/13/2023 1 1 [facility] for referral (narrative)* Outpatient Procedure (Routine) - Authorized Specialty Diagnoses / Procedures Referred By Contac t Referred To Contact [facility] Diagnoses Claudication (HCC) Procedures PVR ANK PRESS AMELIA VAS LAB NON-INVAS PHYSIOLOGIC STD EXTREMITY ART 2 LEVEL Leny Hsu MD [address] [place] [address] [facility] [place] [address] [place] [address] Referral ID Status Reason Start Date Expiration Date Visits Requested Visits Authorized [id number] Authorized Auto-Generat ed Referral 03/16/2023 03/15/2024 1 1 [facility] for referral (narrative)* Outpatient Procedure (Routine) - Pending Review Specialty Diagnoses / Procedures Referred By Contac t Referred To Contact [facility] Diagnoses Fatty metamorphosis of liver Procedures DDI VIBRATION CONTROLLED TRANSIENT ELASTOGRAPHY (VCTE) LIVER ELASTOGRAPHY W/O IMAG W/I&R Nicole Solano PA-C [address] [place] [address] [facility] [place] [address] [place] [address] Referral ID Status Reason Start Date Expiration Date Visits Requested Visits Authorized [id number] Pending Review Auto-Generat ed Referral 3 04/18/2024 1 1 * Diagnostic Procedure Only (Routine) - Pending Review Specialty Diagnoses / Procedures Referred By Contac t Referred To Contact XR IMAGING Diagnoses Irritable bowel syndrome with both constipation and diarrhea Procedures XR ABDOMEN 1V SUPINE RADIOLOGIC EXAM ABDOMEN 1 VIEW Nicole Solano PA-C [address] [place] [address] [place] [address] Referral ID Status Reason Start Date Expiration Date Visits Requested Visits Authorized [id number] Pending Review Auto-Generat ed Referral 3 05/17/2024 1 1 * Diagnostic Procedure Only (Routine) - Authorized Specialty Diagnoses / Procedures Referred By Contac t Referred To Contact XR IMAGING Diagnoses Esophageal dysphagia Procedures XR ESOPHAGRAM RADIOLOGIC EXAM ESOPHAGUS SINGLE CONTRAST STUDY Nicole Solano PA-C [address] [place] [address] [place] [address] Referral ID Status Reason Start Date Expiration Date Visits Requested Visits Authorized [id number] Authorized Auto-Generat ed Referral 05/17/2024 1 1 [facility] for referral (narrative)* Diagnostic Procedure Only (Routine) - Closed Specialty Diagnoses / Procedures [facility] To [facility] Diagnoses Esophageal dysphagia Procedures XR ESOPHAGRAM RADIOLOGIC EXAM ESOPHAGUS SINGLE CONTRAST STUDY Nicole Solano PA-C [address] [place] [address] [place] [address] Referral ID Status Reason Start Date Expiration Date V isits Requested Visits Authorized [id number] Closed Auto-Generate d Referral 04/18/2023 05/17/2024 1 1 [facility] for referral (narrative)* Diagnostic Procedure Only (Routine) - Closed Specialty Diagnoses / Procedures Referred By Contac t Referred To Contact BR IMAGING Diagnoses Inconclusive mammogram Procedures US BREAST LTD LT US BREAST UNI REAL TIME WITH IMAGE LIMITED Bradley Mcmullen APRN.CNP [address] [place] [address] Br Imaging [address] [place] [address] Referral ID Status Reason Start Date Expiration Date V isits Requested Visits Authorized [id number] Closed Auto-Generate d Referral 09/05/2022 10/05/2023 1 1 [facility] for referral (narrative)* Diagnostic Procedure Only (Routine) - Pending Review Specialty Diagnoses / Procedures Referred By Giovani mercer Referred To Contact BR IM[facility] Diagnoses Abnormal mammogram Procedures US BIOPSY BREAST LEFT BX BREAST W/DEVICE 1ST LESION ULTRASOUND GUID Kirk Cast MD [address] [place] [address] [facility] Imaging [address] [place] [address] Referral ID Status Reason Start Date Expiration Date Visits Requested Visits Authorized [id number] Pending Review Auto-Generat ed Referral 08/13/2023 09/11/2024 1 1 [facility] for referral (narrative)* Diagnostic Procedure Only (Routine) - Closed Specialty Diagnoses / Procedures Referred By Giovani mercer Referred To Contact BR IMAGING Diagnoses Abnormal mammogram Procedures US BIOPSY BREAST LEFT BX BREAST W/DEVICE 1ST LESION ULTRASOUND GUID Kirk Cast MD [address] [facility] [place] [address] Br Imaging [address] [place] [address] Referral ID Status Reason Start Date Expiration Date V isits Requested Visits Authorized [id number] Closed Auto-Generate d Referral 08/13/2023 09/11/2024 1 1 [facility] for referral (narrative)* Diagnostic Procedure Only (Routine) - Pending Review Specialty Diagnoses / Procedures Referred By Giovani t Referred To Contact BR IMAGING Diagnoses 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 Procedures PARTH DIAGNOSTIC LEFT DIAGNOSTIC MAMMOGRAPHY COMPUTER-AIDED DETCJ Jordin Ruiz MD [address] [address] Br Imaging [address] [place] [address] Referral ID Status Reason Start Date Expiration Date Visits Requested Visits Authorized [id number] Pending Review Auto-Generat ed Referral 03/22/2024 10/19/2024 1 1 * Diagnostic Procedure Only (Routine) - Pending Review Specialty Diagnoses / Procedures Referred By Contac t Referred To Contact BR IMAGING Diagnoses 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 Procedures US BREAST LTD LEFT US BREAST UNI REAL TIME WITH IMAGE LIMITED Jordin Dickerson MD [address] [address] [facility] [address] [place] [address] Referral ID Status Reason Start Date Expiration Date Visits Requested Visits Authorized [id number] Pending Review Auto-Generat ed Referral 03/22/2024 10/19/2024 1 1 [facility] for referral (narrative)* Outpatient Procedure (Urgent) - Pending Review Specialty Diagnoses / Procedures Referred By Sundayac t Referred To Contact [facility] [place] Diagnoses Other chest pain Procedures ECHO ECHO TTHRC R-T 2D W/WOM-MODE COMPL SPEC&COLR D Leny Hsu MD [address] [place] [address] [facility] [address] [place] [address] Referral ID Status Reason Start Date Expiration Date Visits Requested Visits Authorized [id number] Pending Review Auto-Generat ed Referral 01/02/2024 01/01/2025 1 1 * Outpatient Procedure (Urgent) - Pending Review Specialty Diagnoses / Procedures [facility] Referred To Contact [facility] Diagnoses Other chest pain Procedures EXERCISE STRESS ECG (WITHOUT IMAGING) Leny Hsu MD [address] [place] [address] [facility] [address] [place] [address] Referral ID Status Reason Start Date Expiration Date Visits Requested Visits Authorized [id number] Pending Review Auto-Generat ed Referral 01/02/2024 01/01/2025 1 1 * Outpatient Procedure (Routine) - Pending Review Specialty Diagnoses / Procedures Referred By Giovani mercer Referred To [facility] Diagnoses Other chest pain Procedures ECG COMPLETE ECG ROUTINE ECG W/LEAST 12 LDS W/[place] [address] [place] [address] [facility] [place] [address] [place] [id number] Referral ID Status Reason Start Date Expiration Date Visits Requested Visits Authorized [id number] Pending Review Auto-Generat ed Referral 01/02/2024 01/01/2025 1 1 [facility] for referral (narrative)* Diagnostic Procedure Only (Routine) - Authorized Specialty Diagnoses / Procedures Referred By Giovani mercer Referred To Contact [facility] IMAGING Diagnoses Acquired hypothyroidism Enlarged thyroid Procedures US THYROID/PARATHYROID US SOFT TISSUE HEAD & NECK REAL TIME IMGE DOCM Leny Hsu MD [address] [place] [address] [place] [address] Referral ID Status Reason Start Date Expiration Date Visits Requested Visits Authorized [id number] Authorized Auto-Generat ed Referral 01/14/2024 02/12/2025 1 1 [facility] for referral (narrative)* Diagnostic Procedure Only (Routine) - Closed Specialty Diagnoses / Procedures Referred By Giovani mercer Referred To Contact XR IMAGING Diagnoses Sprain of ligament of right ankle, subsequent encounter Procedures XR ANKLE GENERAL 3V AP/LAT/OBL RIGHT RADEX ANKLE COMPLETE MINIMUM 3 VIEWS Leny Hsu MD [address] [place] [address] [place] [address] Referral ID Status Reason Start Date Expiration Date V isits Requested Visits Authorized [id number] Closed Auto-Generate d Referral 08/30/2022 09/29/2023 1 1 [facility] for referral (narrative)* Diagnostic Procedure Only (Urgent) - Closed Specialty Diagnoses / Procedures Referred By Contac t Referred To Contact XR IMAGING Diagnoses Right wrist pain Procedures XR WRIST INJURY 4V PA/LAT/OBL/SCAPH RIGHT RADEX WRIST COMPLETE MINIMUM 3 VIEWS Dani Burgos APRN.MOTION STUDY ENGINEER [address] [place] [address] [place] [address] Referral ID Status Reason Start Date Expiration Date V isits Requested Visits Authorized [id number] Closed Auto-Generate d Referral 01/03/2022 02/02/2023 1 1 [facility] for referral (narrative)* Diagnostic Procedure Only (Routine) - Closed Specialty Diagnoses / Procedures Referred By Contac t Referred To Contact XR IMAGING Diagnoses Neck pain Procedures XR CERV OTHER 4V AP/LAT/OBL RADEX SPINE CERVICAL 4 OR 5 VIEWS Lydia Gonzalez APRN.MOTION STUDY ENGINEER [address] [place] [address] [place] [address] Referral ID Status Reason Start Date Expiration Date V isits Requested Visits Authorized [id number] Closed Auto-Generate d Referral 09/19/2021 10/19/2022 1 1 * Diagnostic Procedure Only (Routine) - Closed Specialty Diagnoses / Procedures Referred By Contac t Referred To Contact XR IMAGING Diagnoses Acute pain of right shoulder Procedures XR SHOULDER GENERAL 3V OR MORE AP/TRUE AP/OTHER RIGHT RADEX SHOULDER COMPLETE MINIMUM 2 VIEWS Lydia Gonzalez APRN.MOTION STUDY ENGINEER [address] [place] [address] [place] [address] Referral ID Status Reason Start Date Expiration Date V isits Requested Visits Authorized [id number] Closed Auto-Generate d Referral 09/19/2021 10/19/2022 1 1 [facility] for referral (narrative)* Diagnostic Procedure Only (Urgent) - Closed Specialty Diagnoses / Procedures Referred By Contac t Referred To Contact XR IMAGING Diagnoses Right wrist injury, initial encounter Procedures XR WRIST INJURY 4V PA/LAT/OBL/SCAPH RIGHT RADEX WRIST COMPLETE MINIMUM 3 VIEWS Tri Pool APRN.MOTION STUDY ENGINEER [address] [place] [address] [place] [address] Referral ID Status Reason Start Date Expiration Date V isits Requested Visits Authorized [id number] Closed Auto-Generate d Referral 08/23/2021 09/22/2022 1 1 [facility] for referral (narrative)* Diagnostic Procedure Only (Routine) - Closed Specialty Diagnoses / Procedures Referred By Contac t Referred To Contact XR IMAGING Diagnoses Suprapubic pain, acute Procedures XR ABDOMEN 1V SUPINE RADIOLOGIC EXAM ABDOMEN 1 VIEW Leny Hsu MD [address] [place] [id number] [place] [address] Referral ID Status Reason Start Date Expiration Date V isits Requested Visits Authorized [id number] Closed Auto-Generate d Referral 08/06/2024 09/05/2025 1 1 [facility] for referral (narrative)No reason for referral information [facility]: Reason for visit Narrative* Outpatient Procedure (Routine) - Closed Specialty Diagnoses / Procedures Referred By Contac t Referred To Contact [facility] Diagnoses Screening for colon cancer Screening for malignant neoplasm of the rectum Procedures COLONOSCOPY SCREENING COLONOSCOPY FLX DX W/COLLJ SPEC WHEN PFRMD Lydia Gonzalez APRN.MOTION STUDY ENGINEER [address] [place] [address] [facility] [place] [address] [place] [address] Referral ID Status Reason Start Date Expiration Date V isits Requested Visits Authorized [id number] Closed Auto-Generate d Referral 10/19/2021 10/19/2022 1 1 [facility] for visit Narrative* Diagnostic Procedure Only (Routine) - Closed Specialty Diagnoses / Procedures Referred By Contac t Referred To Contact XR IMAGING Diagnoses Esophageal dysphagia Procedures XR ESOPHAGRAM RADIOLOGIC EXAM ESOPHAGUS SINGLE CONTRAST STUDY Nicole Solano PA-C [address] [place] [address] [place] [address] Referral ID Status Reason Start Date Expiration Date V isits Requested Visits Authorized [id number] Closed Auto-Generate d Referral 04/18/2023 05/17/2024 1 1 [facility] for visit Narrative* Diagnostic Procedure Only (Routine) - Closed Specialty Diagnoses / Procedures Referred By Contac t Referred To Contact BR IMAGING Diagnoses Abnormal mammogram Procedures PARTH DIAGNOSTIC LT DIAGNOSTIC MAMMOGRAPHY COMPUTER-AIDED DETCJ UNI Venus Zaidi PA-C [address] [place] [address] [facility] [address] [place] [address] Referral ID Status Reason Start Date Expiration Date V isits Requested Visits Authorized [id number] Closed Auto-Generate d Referral 09/13/2022 10/13/2023 1 1 [facility] for visit Narrative* Diagnostic Procedure Only (Routine) - Closed Specialty Diagnoses / Procedures Referred By Contac t Referred To Contact BR IMAG[facility] Diagnoses Abnormal mammogram Procedures US BIOPSY BREAST LEFT BX BREAST W/DEVICE 1ST LESION ULTRASOUND GUID Kirk Cast MD [address] [place] [address] [facility] Imaging [address] [place] [address] Referral ID Status Reason Start Date Expiration Date V isits Requested Visits Authorized [id number] Closed Auto-Generate d Referral 08/13/2023 09/11/2024 1 1 [facility] for visit Narrative* Diagnostic Procedure Only (Routine) - Closed Specialty Diagnoses / Procedures Referred By Contac t Referred To Contact XR IMAGING Diagnoses Sprain of ligament of right ankle, subsequent encounter Procedures XR ANKLE GENERAL 3V AP/LAT/OBL RIGHT RADEX ANKLE COMPLETE MINIMUM 3 VIEWS Leny Hsu MD [address] [place] [address] [place] [address] Referral ID Status Reason Start Date Expiration Date V isits Requested Visits Authorized [id number] Closed Auto-Generate d Referral 08/30/2022 09/29/2023 1 1 [facility] for visit Narrative* Diagnostic Procedure Only (Urgent) - Closed Specialty Diagnoses / Procedures Referred By Contac t Referred To Contact XR IMAGING Diagnoses Right wrist pain Procedures XR WRIST INJURY 4V PA/LAT/OBL/SCAPH RIGHT RADEX WRIST COMPLETE MINIMUM 3 VIEWS Dani Burgos, CARTOON ARTIST.MOTION STUDY ENGINEER [address] [place] [address] [place] [address] Referral ID Status Reason Start Date Expiration Date V isits Requested Visits Authorized [id number] Closed Auto-Generate d Referral 01/03/2022 02/02/2023 1 1 [facility] for visit Narrative* Diagnostic Procedure Only (Routine) - Closed Specialty Diagnoses / Procedures Referred By Contac t Referred To Contact XR IMAGING Diagnoses Neck pain Procedures XR CERV OTHER 4V AP/LAT/OBL RADEX SPINE CERVICAL 4 OR 5 VIEWS Lydia Gonzalez CARTOON ARTIST.MOTION STUDY ENGINEER [address] [place] [address] [place] [address] Referral ID Status Reason Start Date Expiration Date V isits Requested Visits Authorized [id number] Closed Auto-Generate d Referral 09/19/2021 10/19/2022 1 1 [facility] for visit Narrative* Diagnostic Procedure Only (Urgent) - Closed Specialty Diagnoses / Procedures Referred By Contac t Referred To Contact XR IMAGING Diagnoses Right wrist injury, initial encounter Procedures XR WRIST INJURY 4V PA/LAT/OBL/SCAPH RIGHT RADEX WRIST COMPLETE MINIMUM 3 VIEWS Tri Pool, CARTOON ARTIST.MOTION STUDY ENGINEER [address] [place] [address] [place] [address] Referral ID Status Reason Start Date Expiration Date V isits Requested Visits Authorized [id number] Closed Auto-Generate d Referral 08/23/2021 09/22/2022 1 1 [facility] for visit Narrative* Diagnostic Procedure Only (Routine) - Closed Specialty Diagnoses / Procedures Referred By Giovani mercer Referred To Contact XR IMAGING Diagnoses Suprapubic pain, acute Procedures XR ABDOMEN 1V SUPINE RADIOLOGIC EXAM ABDOMEN 1 VIEW Leny Hsu MD [address] [place] [address] [place] [address] Referral ID Status Reason Start Date Expiration Date V isits Requested Visits Authorized [id number] Closed Auto-Generate d Referral 08/06/2024 09/05/2025 1 1 [facility] for visit Narrative* Diagnostic Procedure Only (Routine) - Closed Specialty Diagnoses / Procedures Referred By Giovani mercer Referred To Contact BR IMAG[facility] Diagnoses 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 Procedures PARTH DIAGNOSTIC LEFT DIAGNOSTIC MAMMOGRAPHY COMPUTER-AIDED DETCJ UNI Jordin Dickerson MD [address] [address] Phone: tel: fax: [facility] [address] [place] [address] Referral ID Status Reason Start Date Expiration Date V isits Requested Visits Authorized [id number] Closed Auto-Generate d Referral 03/22/2024 10/19/2024 1 1 [facility] for visit Narrative* Outpatient Procedure (Routine) - Closed Specialty Diagnoses / Procedures Referred By Giovani mercer Referred To Contact [facility] Diagnoses Hiatal hernia Gastroesophageal reflux disease, unspecified whether esophagitis present Procedures EGD DIAGNOSTIC ESOPHAGOGASTRODUODENOSC OPY TRANSORAL DIAGNOSTIC Kirk Cast MD [address] [place] [address] Phone: tel: fax: [facility] [address] [place] [address] Referral ID Status Reason Start Date Expiration Date V isits Requested Visits Authorized [id number] Closed Auto-Generate d Referral 09/29/2024 09/29/2025 1 1 [facility] Summary Purpose Family History No Family History Records Found Relationship Condition Age at Onset Recorded Date/T domenica father Malignant neoplasm Unknown Advance Directives No Advanced Directives Records FoundDocuments on File Type Date Recorded 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 Advance Directive(s) 11/28/2021 8:11 AM Advance Directive(s) 11/22/2021 11:39 AM Advance Directive Response Recorded Date/ Time Advance Directives No August 10, 2016 9:04pm Living Will No May 12 6:02pm Power of Wheel Lacer And Truer No May 12, 2021 6:02pm Documents on File Type Date Recorded 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 Advance Directive(s) 11/28/2021 8:11 AM Advance Directive(s) 11/22/2021 11:39 AM Advance Directive Response Recorded Date/ Time Advance Directives No August 10, 2016 9:04pm Living Will No March 01 7:23pm Power of Wheel Lacer And Truer No March 01 7:23pm Advance Directive Response Recorded Date/ Time Advance Directives No August 10, 2016 8:04pm Living Will No August 13 3:49pm Power of Wheel Lacer And Truer No August 13, 2022 3:49pm Advance Directive Response Recorded Date/ Time Advance Directives No August 10, 2016 9:04pm Living Will No October 14, 2022 4:30pm Power of Wheel Lacer And Truer No October 14 4:30pm Advance Directive Response Recorded Date/ Time Do you have a Healthcare Power of Wheel Lacer And Truer? Yes February 01, 2025 8:53pm Advance Directives No August 10, 2016 9:04pm Medications Administered Section Inactive Administered Medications - [...] right ankle Chief Complaint right ankle VOMITING Chief Complaint Admit Date flank pain February 01, 2025 8:00 pm Reason for Referral Specialty Diagnoses / Procedures Referred By Contac t Referred To Contact MR IMAGING Diagnoses Acute pain of right shoulder Procedures MRI SHOULDER WO IVCON RT MRI ANY JT UPPER EXTREMITY W/O CONTRAST MATRL Leny Hsu MD [address] [place] [address] Mr Imaging Referral ID Status Reason Start Date Expiration Date V isits Requested Visits Authorized [id number] Closed Auto-Generate d Referral 12/02/2021 01/01/2023 1 1 Specialty Diagnoses / Procedures Referred By Contac t Referred To Contact Orthopedics Diagnoses Acute pain of right shoulder Procedures CONSULT TO ORTHOPAEDICS OFFICE/OUTPATIENT [facility] 60-74 MINUTES Leny Hsu MD [address] [place] [address] Referral ID Status Reason Start Date Expiration Date Visits Requested Visits Authorized [id number] Pending Review PCP Requested Referral 12/21/2021 12/21/2022 1 1 Specialty Diagnoses / Procedures Referred By Contac t Referred To Contact CT IMAGING Diagnoses Hiatal hernia with GERD without esophagitis Bilateral upper abdominal pain Abdominal distension (gaseous) Nausea Procedures CT ABD/PEL W IVCON CT ABD & PELVIS W/CONTRAST Nicole Solano PA-C [address] [place] [address] Ct Imaging Referral ID Status Reason Start Date Expiration Date Visits Requested Visits Authorized [id number] Authorized Auto-Generat ed Referral 2 05/27/2023 1 1 Specialty Diagnoses / Procedures Referred By Contac t Referred To Contact CT IMAGING Diagnoses Hiatal hernia with GERD without esophagitis Bilateral upper abdominal pain Abdominal distension (gaseous) Nausea Procedures CT ABD/PEL W IVCON CT ABD & PELVIS W/CONTRAST Nicole Solano PA-C [address] [place] [address] Ct Imaging [place] [address] Referral ID Status Reason Start Date Expiration Date V isits Requested Visits Authorized [id number] Closed Auto-Generate d Referral 04/27/2022 05/27/2023 1 1 Specialty Diagnoses / Procedures Referred By Contac t Referred To Contact Neurology Diagnoses Migraine without aura and without status migrainosus, not intractable Procedures CONSULT TO NEUROLOGY OFFICE/OUTPATIENT [facility] 60-74 MINUTES Leny Hsu MD [address] [place], [place] [id number] Referral ID Status Reason Start Date Expiration Date Visits Requested Visits Authorized [id number] Pending Review PCP Requested Referral 05/14/2023 05/13/2024 1 1 Specialty Diagnoses / Procedures Referred By Contac t Referred To Contact Optometry Diagnoses Migraine without aura and without status migrainosus, not intractable Blurred vision, bilateral Procedures CONSULT TO OPTOMETRY OFFICE/OUTPATIENT [facility] 60-74 MINUTES Kristy Asencio PA-C [address] [place] [phone] Referral ID Status Reason Start Date Expiration Date Visits Requested Visits Authorized [id number] Pending Review PCP Requested Referral 3 06/04/2024 1 1 Specialty Diagnoses / Procedures Referred By Contac t Referred To Contact [facility] Diagnoses Obstructive sleep apnea Procedures HOME SLEEP APNEA TEST (HSAT) SLEEP STD AIRFLOW HRT RATE&O2 SAT EFFORT UNATT Kristy Asencio PA-C [address] [place] [address] [facility] [place] [address] [place] [address] Referral ID Status Reason Start Date Expiration Date Visits Requested Visits Authorized [id number] Authorized Auto-Generat ed Referral 3 06/04/2024 1 1 Specialty Diagnoses / Procedures Referred By Contac t Referred To Contact Podiatry Diagnoses Plantar wart of both feet Procedures CONSULT TO PODIATRY OFFICE/OUTPATIENT [facility] 60 MINUTES Leny Hsu MD [address] [place] [phone] Referral ID Status Reason Start Date Expiration Date Visits Requested Visits Authorized [id number] Authorized PCP Requested Referral 12/19/2023 12/18/2024 1 1 Health Concerns Infection Onset Date Last Indicated Resolved Time COVID-19 Rule-Out 07/27/2021 07/27/2021 07/28/2021 4:19 AM EST COVID-19 Confirmed 07/27/2021 07/27/2021 8:53 PM EST Additional Source Comments INFORMATION SOURCE (unrecogn ized section and content) DATE CREATED AUTHOR 01/02/2018 [facility] DATE CREATED AUTHOR AUTHOR'S ORGANIZ ATION 07/22/2020 [facility] DATE CREATED AUTHOR AUTHOR'S ORGANIZ ATION 04/20/2023 [facility] DATE CREATED AUTHOR AUTHOR'S ORGANIZ ATION 08/19/2023 [facility] DATE CREATED AUTHOR AUTHOR'S ORGANIZ ATION 02/04/2025 [facility] DATE CREATED AUTHOR AUTHOR'S ORGANIZ ATION 03/04/2025 [facility] Source Comments (unrecognize d section and content) In the event this informatio n is protected by the Federal Confidentiality of Alcohol and Drug Abuse Patient Records regulations: The Federal rules restrict any use of the information to criminally investigate or prosecute any alcohol or drug abuse patient.[facility] the event this information is protected by the Federal Confidentiality of Alcohol and Drug Abuse Patient Records regulations: The Federal rules restrict any use of the information to criminally investigate or prosecute any alcohol or drug abuse patient.[facility] the event this information is protected by the Federal Confidentiality of Alcohol and Drug Abuse Patient Records regulations: The Federal rules restrict any use of the information to criminally investigate or prosecute any alcohol or drug abuse patient.[facility] [facility]In the event this information is protected by the Federal Confidentiality of Alcohol and Drug Abuse Patient Records regulations: The Federal rules restrict any use of the information to criminally investigate or prosecute any alcohol or drug abuse patient.[facility]In the event this information is protected by the Federal Confidentiality of Alcohol and Drug Abuse Patient Records regulations: The Federal rules restrict any use of the information to criminally investigate or prosecute any alcohol or drug abuse patient.[facility]In the event this information is protected by the Federal Confidentiality of Alcohol and Drug Abuse Patient Records regulations: The Federal rules restrict any use of the information to criminally investigate or prosecute any alcohol or drug abuse patient.[facility]In the event this information is protected by the Federal Confidentiality of Alcohol and Drug Abuse Patient Records regulations: The Federal rules restrict any use of the information to criminally investigate or prosecute any alcohol or drug abuse patient.[facility]In the event this information is protected by the Federal Confidentiality of Alcohol and Drug Abuse Patient Records regulations: The Federal rules restrict any use of the information to criminally investigate or prosecute any alcohol or drug abuse patient.[facility]In the event this information is protected by the Federal Confidentiality of Alcohol and Drug Abuse Patient Records regulations: The Federal rules restrict any use of the information to criminally investigate or prosecute any alcohol or drug abuse patient.[facility]In the event this information is protected by the Federal Confidentiality of Alcohol and Drug Abuse Patient Records regulations: The Federal rules restrict any use of the information to criminally investigate or prosecute any alcohol or drug abuse patient.[facility]In the event this information is protected by the Federal Confidentiality of Alcohol and Drug Abuse Patient Records regulations: The Federal rules restrict any use of the information to criminally investigate or prosecute any alcohol or drug abuse patient.[facility]In the event this information is protected by the Federal Confidentiality of Alcohol and Drug Abuse Patient Records regulations: The Federal rules restrict any use of the information to criminally investigate or prosecute any alcohol or drug abuse patient.[facility]In the event this information is protected by the Federal Confidentiality of Alcohol and Drug Abuse Patient Records regulations: The Federal rules restrict any use of the information to criminally investigate or prosecute any alcohol or drug abuse patient.[facility]In the event this information is protected by the Federal Confidentiality of Alcohol and Drug Abuse Patient Records regulations: The Federal rules restrict any use of the information to criminally investigate or prosecute any alcohol or drug abuse patient.[facility]In the event this information is protected by the Federal Confidentiality of Alcohol and Drug Abuse Patient Records regulations: The Federal rules restrict any use of the information to criminally investigate or prosecute any alcohol or drug abuse patient.[facility]In the event this information is protected by the Federal Confidentiality of Alcohol and Drug Abuse Patient Records regulations: The Federal rules restrict any use of the information to criminally investigate or prosecute any alcohol or drug abuse patient.[facility]In the event this information is protected by the Federal Confidentiality of Alcohol and Drug Abuse Patient Records regulations: The Federal rules restrict any use of the information to criminally investigate or prosecute any alcohol or drug abuse patient.[facility]In the event this information is protected by the Federal Confidentiality of Alcohol and Drug Abuse Patient Records regulations: The Federal rules restrict any use of the information to criminally investigate or prosecute any alcohol or drug abuse patient.[facility]In the event this information is protected by the Federal Confidentiality of Alcohol and Drug Abuse Patient Records regulations: The Federal rules restrict any use of the information to criminally investigate or prosecute any alcohol or drug abuse patient.[facility]In the event this information is protected by the Federal Confidentiality of Alcohol and Drug Abuse Patient Records regulations: The Federal rules restrict any use of the information to criminally investigate or prosecute any alcohol or drug abuse patient.[facility]In the event this information is protected by the Federal Confidentiality of Alcohol and Drug Abuse Patient Records regulations: The Federal rules restrict any use of the information to criminally investigate or prosecute any alcohol or drug abuse patient.[facility]In the event this information is protected by the Federal Confidentiality of Alcohol and Drug Abuse Patient Records regulations: The Federal rules restrict any use of the information to criminally investigate or prosecute any alcohol or drug abuse patient.[facility]In the event this information is protected by the Federal Confidentiality of Alcohol and Drug Abuse Patient Records regulations: The Federal rules restrict any use of the information to criminally investigate or prosecute any alcohol or drug abuse patient.[facility]In the event this information is protected by the Federal Confidentiality of Alcohol and Drug Abuse Patient Records regulations: The Federal rules restrict any use of the information to criminally investigate or prosecute any alcohol or drug abuse patient.[facility]In the event this information is protected by the Federal Confidentiality of Alcohol and Drug Abuse Patient Records regulations: The Federal rules restrict any use of the information to criminally investigate or prosecute any alcohol or drug abuse patient.[facility]In the event this information is protected by the Federal Confidentiality of Alcohol and Drug Abuse Patient Records regulations: The Federal rules restrict any use of the information to criminally investigate or prosecute any alcohol or drug abuse patient.[facility]In the event this information is protected by the Federal Confidentiality of Alcohol and Drug Abuse Patient Records regulations: The Federal rules restrict any use of the information to criminally investigate or prosecute any alcohol or drug abuse patient.[facility]In the event this information is protected by the Federal Confidentiality of Alcohol and Drug Abuse Patient Records regulations: The Federal rules restrict any use of the information to criminally investigate or prosecute any alcohol or drug abuse patient.[facility]In the event this information is protected by the Federal Confidentiality of Alcohol and Drug Abuse Patient Records regulations: The Federal rules restrict any use of the information to criminally investigate or prosecute any alcohol or drug abuse patient.[facility]In the event this information is protected by the Federal Confidentiality of Alcohol and Drug Abuse Patient Records regulations: The Federal rules restrict any use of the information to criminally investigate or prosecute any alcohol or drug abuse patient.[facility]In the event this information is protected by the Federal Confidentiality of Alcohol and Drug Abuse Patient Records regulations: The Federal rules restrict any use of the information to criminally investigate or prosecute any alcohol or drug abuse patient.[facility]In the event this information is protected by the Federal Confidentiality of Alcohol and Drug Abuse Patient Records regulations: The Federal rules restrict any use of the information to criminally investigate or prosecute any alcohol or drug abuse patient.[facility]In the event this information is protected by the Federal Confidentiality of Alcohol and Drug Abuse Patient Records regulations: The Federal rules restrict any use of the information to criminally investigate or prosecute any alcohol or drug abuse patient.[facility]In the event this information is protected by the Federal Confidentiality of Alcohol and Drug Abuse Patient Records regulations: The Federal rules restrict any use of the information to criminally investigate or prosecute any alcohol or drug abuse patient.[facility]In the event this information is protected by the Federal Confidentiality of Alcohol and Drug Abuse Patient Records regulations: The Federal rules restrict any use of the information to criminally investigate or prosecute any alcohol or drug abuse patient.[facility]In the event this information is protected by the Federal Confidentiality of Alcohol and Drug Abuse Patient Records regulations: The Federal rules restrict any use of the information to criminally investigate or prosecute any alcohol or drug abuse patient.[facility]In the event this information is protected by the Federal Confidentiality of Alcohol and Drug Abuse Patient Records regulations: The Federal rules restrict any use of the information to criminally investigate or prosecute any alcohol or drug abuse patient.[facility]In the event this information is protected by the Federal Confidentiality of Alcohol and Drug Abuse Patient Records regulations: The Federal rules restrict any use of the information to criminally investigate or prosecute any alcohol or drug abuse patient.[facility]In the event this information is protected by the Federal Confidentiality of Alcohol and Drug Abuse Patient Records regulations: The Federal rules restrict any use of the information to criminally investigate or prosecute any alcohol or drug abuse patient.[facility]In the event this information is protected by the Federal Confidentiality of Alcohol and Drug Abuse Patient Records regulations: The Federal rules restrict any use of the information to criminally investigate or prosecute any alcohol or drug abuse patient.[facility]In the event this information is protected by the Federal Confidentiality of Alcohol and Drug Abuse Patient Records regulations: The Federal rules restrict any use of the information to criminally investigate or prosecute any alcohol or drug abuse patient.[facility]In the event this information is protected by the Federal Confidentiality of Alcohol and Drug Abuse Patient Records regulations: The Federal rules restrict any use of the information to criminally investigate or prosecute any alcohol or drug abuse patient.[facility]In the event this information is protected by the Federal Confidentiality of Alcohol and Drug Abuse Patient Records regulations: The Federal rules restrict any use of the information to criminally investigate or prosecute any alcohol or drug abuse patient.[facility]In the event this information is protected by the Federal Confidentiality of Alcohol and Drug Abuse Patient Records regulations: The Federal rules restrict any use of the information to criminally investigate or prosecute any alcohol or drug abuse patient.[facility]In the event this information is protected by the Federal Confidentiality of Alcohol and Drug Abuse Patient Records regulations: The Federal rules restrict any use of the information to criminally investigate or prosecute any alcohol or drug abuse patient.[facility]In the event this information is protected by the Federal Confidentiality of Alcohol and Drug Abuse Patient Records regulations: The Federal rules restrict any use of the information to criminally investigate or prosecute any alcohol or drug abuse patient.[facility]In the event this information is protected by the Federal Confidentiality of Alcohol and Drug Abuse Patient Records regulations: The Federal rules restrict any use of the information to criminally investigate or prosecute any alcohol or drug abuse patient.[facility]In the event this information is protected by the Federal Confidentiality of Alcohol and Drug Abuse Patient Records regulations: The Federal rules restrict any use of the information to criminally investigate or prosecute any alcohol or drug abuse patient.[facility]In the event this information is protected by the Federal Confidentiality of Alcohol and Drug Abuse Patient Records regulations: The Federal rules restrict any use of the information to criminally investigate or prosecute any alcohol or drug abuse patient.[facility]In the event this information is protected by the Federal Confidentiality of Alcohol and Drug Abuse Patient Records regulations: The Federal rules restrict any use of the information to criminally investigate or prosecute any alcohol or drug abuse patient.[facility]In the event this information is protected by the Federal Confidentiality of Alcohol and Drug Abuse Patient Records regulations: The Federal rules restrict any use of the information to criminally investigate or prosecute any alcohol or drug abuse patient.[facility]In the event this information is protected by the Federal Confidentiality of Alcohol and Drug Abuse Patient Records regulations: The Federal rules restrict any use of the information to criminally investigate or prosecute any alcohol or drug abuse patient.[facility]In the event this information is protected by the Federal Confidentiality of Alcohol and Drug Abuse Patient Records regulations: The Federal rules restrict any use of the information to criminally investigate or prosecute any alcohol or drug abuse patient.[facility]In the event this information is protected by the Federal Confidentiality of Alcohol and Drug Abuse Patient Records regulations: The Federal rules restrict any use of the information to criminally investigate or prosecute any alcohol or drug abuse patient.[facility]In the event this information is protected by the Federal Confidentiality of Alcohol and Drug Abuse Patient Records regulations: The Federal rules restrict any use of the information to criminally investigate or prosecute any alcohol or drug abuse patient.[facility]In the event this information is protected by the Federal Confidentiality of Alcohol and Drug Abuse Patient Records regulations: The Federal rules restrict any use of the information to criminally investigate or prosecute any alcohol or drug abuse patient.[facility]In the event this information is protected by the Federal Confidentiality of Alcohol and Drug Abuse Patient Records regulations: The Federal rules restrict any use of the information to criminally investigate or prosecute any alcohol or drug abuse patient.[facility]In the event this information is protected by the Federal Confidentiality of Alcohol and Drug Abuse Patient Records regulations: The Federal rules restrict any use of the information to criminally investigate or prosecute any alcohol or drug abuse patient.[facility]In the event this information is protected by the Federal Confidentiality of Alcohol and Drug Abuse Patient Records regulations: The Federal rules restrict any use of the information to criminally investigate or prosecute any alcohol or drug abuse patient.[facility]In the event this information is protected by the Federal Confidentiality of Alcohol and Drug Abuse Patient Records regulations: The Federal rules restrict any use of the information to criminally investigate or prosecute any alcohol or drug abuse patient.[facility]In the event this information is protected by the Federal Confidentiality of Alcohol and Drug Abuse Patient Records regulations: The Federal rules restrict any use of the information to criminally investigate or prosecute any alcohol or drug abuse patient.[facility]In the event this information is protected by the Federal Confidentiality of Alcohol and Drug Abuse Patient Records regulations: The Federal rules restrict any use of the information to criminally investigate or prosecute any alcohol or drug abuse patient.[facility]In the event this information is protected by the Federal Confidentiality of Alcohol and Drug Abuse Patient Records regulations: The Federal rules restrict any use of the information to criminally investigate or prosecute any alcohol or drug abuse patient.[facility]In the event this information is protected by the Federal Confidentiality of Alcohol and Drug Abuse Patient Records regulations: The Federal rules restrict any use of the information to criminally investigate or prosecute any alcohol or drug abuse patient.[facility]In the event this information is protected by the Federal Confidentiality of Alcohol and Drug Abuse Patient Records regulations: The Federal rules restrict any use of the information to criminally investigate or prosecute any alcohol or drug abuse patient.[facility]In the event this information is protected by the Federal Confidentiality of Alcohol and Drug Abuse Patient Records regulations: The Federal rules restrict any use of the information to criminally investigate or prosecute any alcohol or drug abuse patient.[facility]In the event this information is protected by the Federal Confidentiality of Alcohol and Drug Abuse Patient Records regulations: The Federal rules restrict any use of the information to criminally investigate or prosecute any alcohol or drug abuse patient.[facility]In the event this information is protected by the Federal Confidentiality of Alcohol and Drug Abuse Patient Records regulations: The Federal rules restrict any use of the information to criminally investigate or prosecute any alcohol or drug abuse patient.[facility]In the event this information is protected by the Federal Confidentiality of Alcohol and Drug Abuse Patient Records regulations: The Federal rules restrict any use of the information to criminally investigate or prosecute any alcohol or drug abuse patient.[facility]In the event this information is protected by the Federal Confidentiality of Alcohol and Drug Abuse Patient Records regulations: The Federal rules restrict any use of the information to criminally investigate or prosecute any alcohol or drug abuse patient.[facility]In the event this information is protected by the Federal Confidentiality of Alcohol and Drug Abuse Patient Records regulations: The Federal rules restrict any use of the information to criminally investigate or prosecute any alcohol or drug abuse patient.[facility]In the event this information is protected by the Federal Confidentiality of Alcohol and Drug Abuse Patient Records regulations: The Federal rules restrict any use of the information to criminally investigate or prosecute any alcohol or drug abuse patient.[facility]In the event this information is protected by the Federal Confidentiality of Alcohol and Drug Abuse Patient Records regulations: The Federal rules restrict any use of the information to criminally investigate or prosecute any alcohol or drug abuse patient.[facility]In the event this information is protected by the Federal Confidentiality of Alcohol and Drug Abuse Patient Records regulations: The Federal rules restrict any use of the information to criminally investigate or prosecute any alcohol or drug abuse patient.[facility]In the event this information is protected by the Federal Confidentiality of Alcohol and Drug Abuse Patient Records regulations: The Federal rules restrict any use of the information to criminally investigate or prosecute any alcohol or drug abuse patient.[facility]In the event this information is protected by the Federal Confidentiality of Alcohol and Drug Abuse Patient Records regulations: The Federal rules restrict any use of the information to criminally investigate or prosecute any alcohol or drug abuse patient.[facility]In the event this information is protected by the Federal Confidentiality of Alcohol and Drug Abuse Patient Records regulations: The Federal rules restrict any use of the information to criminally investigate or prosecute any alcohol or drug abuse patient.[facility]In the event this information is protected by the Federal Confidentiality of Alcohol and Drug Abuse Patient Records regulations: The Federal rules restrict any use of the information to criminally investigate or prosecute any alcohol or drug abuse patient.[facility]In the event this information is protected by the Federal Confidentiality of Alcohol and Drug Abuse Patient Records regulations: The Federal rules restrict any use of the information to criminally investigate or prosecute any alcohol or drug abuse patient.[facility]In the event this information is protected by the Federal Confidentiality of Alcohol and Drug Abuse Patient Records regulations: The Federal rules restrict any use of the information to criminally investigate or prosecute any alcohol or drug abuse patient.[facility]In the event this information is protected by the Federal Confidentiality of Alcohol and Drug Abuse Patient Records regulations: The Federal rules restrict any use of the information to criminally investigate or prosecute any alcohol or drug abuse patient.[facility]In the event this information is protected by the Federal Confidentiality of Alcohol and Drug Abuse Patient Records regulations: The Federal rules restrict any use of the information to criminally investigate or prosecute any alcohol or drug abuse patient.[facility]In the event this information is protected by the Federal Confidentiality of Alcohol and Drug Abuse Patient Records regulations: The Federal rules restrict any use of the information to criminally investigate or prosecute any alcohol or drug abuse patient.[facility] [facility] HospitalIn the event this information is protected by the Federal Confidentiality of Alcohol and Drug Abuse Patient Records regulations: The Federal rules restrict any use of the information to criminally investigate or prosecute any alcohol or drug abuse patient.[facility]In the event this information is protected by the Federal Confidentiality of Alcohol and Drug Abuse Patient Records regulations: The Federal rules restrict any use of the information to criminally investigate or prosecute any alcohol or drug abuse patient.[facility] HospitalIn the event this information is protected by the Federal Confidentiality of Alcohol and Drug Abuse Patient Records regulations: The Federal rules restrict any use of the information to criminally investigate or prosecute any alcohol or drug abuse patient.[facility] HospitalIn the event this information is protected by the Federal Confidentiality of Alcohol and Drug Abuse Patient Records regulations: The Federal rules restrict any use of the information to criminally investigate or prosecute any alcohol or drug abuse patient.[facility] HospitalIn the event this information is protected by the Federal Confidentiality of Alcohol and Drug Abuse Patient Records regulations: The Federal rules restrict any use of the information to criminally investigate or prosecute any alcohol or drug abuse patient.[facility] HospitalIn the event this information is protected by the Federal Confidentiality of Alcohol and Drug Abuse Patient Records regulations: The Federal rules restrict any use of the information to criminally investigate or prosecute any alcohol or drug abuse patient.[facility] HospitalIn the event this information is protected by the Federal Confidentiality of Alcohol and Drug Abuse Patient Records regulations: The Federal rules restrict any use of the information to criminally investigate or prosecute any alcohol or drug abuse patient.[facility] HospitalIn the event this information is protected by the Federal Confidentiality of Alcohol and Drug Abuse Patient Records regulations: The Federal rules restrict any use of the information to criminally investigate or prosecute any alcohol or drug abuse patient.[facility] HospitalIn the event this information is protected by the Federal Confidentiality of Alcohol and Drug Abuse Patient Records regulations: The Federal rules restrict any use of the information to criminally investigate or prosecute any alcohol or drug abuse patient.[facility] HospitalIn the event this information is protected by the Federal Confidentiality of Alcohol and Drug Abuse Patient Records regulations: The Federal rules restrict any use of the information to criminally investigate or prosecute any alcohol or drug abuse patient.[facility] HospitalIn the event this information is protected by the Federal Confidentiality of Alcohol and Drug Abuse Patient Records regulations: The Federal rules restrict any use of the information to criminally investigate or prosecute any alcohol or drug abuse patient.[facility] HospitalIn the event this information is protected by the Federal Confidentiality of Alcohol and Drug Abuse Patient Records regulations: The Federal rules restrict any use of the information to criminally investigate or prosecute any alcohol or drug abuse patient.[facility] HospitalIn the event this information is protected by the Federal Confidentiality of Alcohol and Drug Abuse Patient Records regulations: The Federal rules restrict any use of the information to criminally investigate or prosecute any alcohol or drug abuse patient.[facility] HospitalIn the event this information is protected by the Federal Confidentiality of Alcohol and Drug Abuse Patient Records regulations: The Federal rules restrict any use of the information to criminally investigate or prosecute any alcohol or drug abuse patient.[facility] HospitalIn the event this information is protected by the Federal Confidentiality of Alcohol and Drug Abuse Patient Records regulations: The Federal rules restrict any use of the information to criminally investigate or prosecute any alcohol or drug abuse patient.[facility] HospitalIn the event this information is protected by the Federal Confidentiality of Alcohol and Drug Abuse Patient Records regulations: The Federal rules restrict any use of the information to criminally investigate or prosecute any alcohol or drug abuse patient.[facility] HospitalIn the event this information is protected by the Federal Confidentiality of Alcohol and Drug Abuse Patient Records regulations: The Federal rules restrict any use of the information to criminally investigate or prosecute any alcohol or drug abuse patient.[facility] HospitalIn the event this information is protected by the Federal Confidentiality of Alcohol and Drug Abuse Patient Records regulations: The Federal rules restrict any use of the information to criminally investigate or prosecute any alcohol or drug abuse patient.[facility] HospitalIn the event this information is protected by the Federal Confidentiality of Alcohol and Drug Abuse Patient Records regulations: The Federal rules restrict any use of the information to criminally investigate or prosecute any alcohol or drug abuse patient.[facility] HospitalIn the event this information is protected by the Federal Confidentiality of Alcohol and Drug Abuse Patient Records regulations: The Federal rules restrict any use of the information to criminally investigate or prosecute any alcohol or drug abuse patient.[facility] HospitalIn the event this information is protected by the Federal Confidentiality of Alcohol and Drug Abuse Patient Records regulations: The Federal rules restrict any use of the information to criminally investigate or prosecute any alcohol or drug abuse patient.[facility] HospitalIn the event this information is protected by the Federal Confidentiality of Alcohol and Drug Abuse Patient Records regulations: The Federal rules restrict any use of the information to criminally investigate or prosecute any alcohol or drug abuse patient.[facility] HospitalIn the event this information is protected by the Federal Confidentiality of Alcohol and Drug Abuse Patient Records regulations: The Federal rules restrict any use of the information to criminally investigate or prosecute any alcohol or drug abuse patient.[facility] HospitalIn the event this information is protected by the Federal Confidentiality of Alcohol and Drug Abuse Patient Records regulations: The Federal rules restrict any use of the information to criminally investigate or prosecute any alcohol or drug abuse patient.[facility] HospitalIn the event this information is protected by the Federal Confidentiality of Alcohol and Drug Abuse Patient Records regulations: The Federal rules restrict any use of the information to criminally investigate or prosecute any alcohol or drug abuse patient.[facility] HospitalIn the event this information is protected by the Federal Confidentiality of Alcohol and Drug Abuse Patient Records regulations: The Federal rules restrict any use of the information to criminally investigate or prosecute any alcohol or drug abuse patient.[facility] HospitalIn the event this information is protected by the Federal Confidentiality of Alcohol and Drug Abuse Patient Records regulations: The Federal rules restrict any use of the information to criminally investigate or prosecute any alcohol or drug abuse patient.[facility] HospitalIn the event this information is protected by the Federal Confidentiality of Alcohol and Drug Abuse Patient Records regulations: The Federal rules restrict any use of the information to criminally investigate or prosecute any alcohol or drug abuse patient.[facility] HospitalIn the event this information is protected by the Federal Confidentiality of Alcohol and Drug Abuse Patient Records regulations: The Federal rules restrict any use of the information to criminally investigate or prosecute any alcohol or drug abuse patient.[facility] HospitalIn the event this information is protected by the Federal Confidentiality of Alcohol and Drug Abuse Patient Records regulations: The Federal rules restrict any use of the information to criminally investigate or prosecute any alcohol or drug abuse patient.[facility] HospitalIn the event this information is protected by the Federal Confidentiality of Alcohol and Drug Abuse Patient Records regulations: The Federal rules restrict any use of the information to criminally investigate or prosecute any alcohol or drug abuse patient.[facility] HospitalIn the event this information is protected by the Federal Confidentiality of Alcohol and Drug Abuse Patient Records regulations: The Federal rules restrict any use of the information to criminally investigate or prosecute any alcohol or drug abuse patient.[facility] HospitalIn the event this information is protected by the Federal Confidentiality of Alcohol and Drug Abuse Patient Records regulations: The Federal rules restrict any use of the information to criminally investigate or prosecute any alcohol or drug abuse patient.[facility] HospitalIn the event this information is protected by the Federal Confidentiality of Alcohol and Drug Abuse Patient Records regulations: The Federal rules restrict any use of the information to criminally investigate or prosecute any alcohol or drug abuse patient.[facility] HospitalIn the event this information is protected by the Federal Confidentiality of Alcohol and Drug Abuse Patient Records regulations: The Federal rules restrict any use of the information to criminally investigate or prosecute any alcohol or drug abuse patient.[facility] HospitalIn the event this information is protected by the Federal Confidentiality of Alcohol and Drug Abuse Patient Records regulations: The Federal rules restrict any use of the information to criminally investigate or prosecute any alcohol or drug abuse patient.[facility] HospitalIn the event this information is protected by the Federal Confidentiality of Alcohol and Drug Abuse Patient Records regulations: The Federal rules restrict any use of the information to criminally investigate or prosecute any alcohol or drug abuse patient.[facility] HospitalIn the event this information is protected by the Federal Confidentiality of Alcohol and Drug Abuse Patient Records regulations: The Federal rules restrict any use of the information to criminally investigate or prosecute any alcohol or drug abuse patient.[facility] HospitalIn the event this information is protected by the Federal Confidentiality of Alcohol and Drug Abuse Patient Records regulations: The Federal rules restrict any use of the information to criminally investigate or prosecute any alcohol or drug abuse patient.[facility] HospitalIn the event this information is protected by the Federal Confidentiality of Alcohol and Drug Abuse Patient Records regulations: The Federal rules restrict any use of the information to criminally investigate or prosecute any alcohol or drug abuse patient.[facility] HospitalIn the event this information is protected by the Federal Confidentiality of Alcohol and Drug Abuse Patient Records regulations: The Federal rules restrict any use of the information to criminally investigate or prosecute any alcohol or drug abuse patient.[facility] HospitalIn the event this information is protected by the Federal Confidentiality of Alcohol and Drug Abuse Patient Records regulations: The Federal rules restrict any use of the information to criminally investigate or prosecute any alcohol or drug abuse patient.[facility]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 Coordinator Relationship Specialty Start Date End Date Leny Hsu MD [address] [place] [address] PCP - General Family Medicine 05/11/21 Podlogar, Lydia CARTOON ARTIST.MOTION STUDY ENGINEER [address] [place] [address] [facility] 06/14/24 Bradley Mcmullen APRN.MOTION STUDY ENGINEER [address] [place] [address] [facility] 09/29/24 Member Services Coordinator Relationship Specialty Start Date End Date Leny Hsu MD [address] [place] [address] PCP - General Family Medicine 05/11/21 PodlogarLydia CARTOON ARTIST.MOTION STUDY ENGINEER [address] [place] [address] [facility] 06/14/24 Bradley Mcmullen CARTOON ARTIST.MOTION STUDY ENGINEER [address] [place] [address] [facility] 09/29/24 Member Services Coordinator Relationship Specialty Start Date End Date Leny Hsu MD [address] [place] [address] PCP - General Family Medicine 05/11/21 Podlogar, Lydia, CARTOON ARTIST.MOTION STUDY ENGINEER [address] [place] [address] [facility] 06/14/24 Bradley Mcmullen APRN.MOTION STUDY ENGINEER [address] [place] [address] [facility] 09/29/24 Member Services Coordinator Relationship Specialty Start Date End Date Leny Hsu MD [address] [place] [address] PCP - General Family Medicine 05/11/21 PodlogLydia burt APRN.MOTION STUDY ENGINEER [address] [place] [address] [facility] 06/14/24 Bradley Mcmullen APRN.MOTION STUDY ENGINEER [address] [place] [address] [facility] 09/29/24 Member Services Coordinator Relationship Specialty Start Date End Date Leny Hsu MD [address] [place] [address] PCP - General Family Medicine 05/11/21 PodlogarLydia APRN.MOTION STUDY ENGINEER [address] [place] [address] [facility] 06/14/24 Bradley Mcmullen APRN.MOTION STUDY ENGINEER [address] [place] [address] [facility] 09/29/24 Member Services Coordinator Relationship Specialty Start Date End Date Leny Hsu MD [address] [place] [address] PCP - General Family Medicine 05/11/21 PodlogarLydia APRN.MOTION STUDY ENGINEER [address] [place] [address] [facility] 06/14/24 Member Services Coordinator Relationship Specialty Start Date End Date Leny Hsu MD [address] [place] [address] PCP - General Family Medicine 05/11/21 PodlogarLydia APRN.MOTION STUDY ENGINEER [address] [place] [address] Shading Painter Family [facility] 06/14/24 Member Services Coordinator Relationship Specialty Start Date End Date Leny Hsu MD [address] [place] [address] PCP - General Family Medicine 05/11/21 PodlogarLydia APRN.MOTION STUDY ENGINEER [address] [place] [address] [facility] 06/14/24 Bradley Mcmullen APRN.MOTION STUDY ENGINEER [address] [place] [address] [facility] Member Services Coordinator Relationship Specialty Start Date End Date Leny Hsu MD [address] [place] [address] PCP - General Family Medicine 05/11/21 PodlogarLydia APRN.MOTION STUDY ENGINEER [address] [place] [address] [facility] 06/14/24 Bradley Mcmullen APRN.MOTION STUDY ENGINEER [address] [place] [address] [facility] 09/29/24 11/23/24 Bradley Mcmullen APRN.MOTION STUDY ENGINEER [address] [place] [address] [facility] 12/18/24 Member Services Coordinator Relationship Specialty Start Date End Date Leny Hsu MD [address] [place], [place] [address] PCP - General Family Medicine 05/11/21 PodlogLydia burt APRN.MOTION STUDY ENGINEER [address] [place], [place] [address] [facility] 06/14/24 Bradley Mcmullen APRN.MOTION STUDY ENGINEER [address] [place] [id number] [facility] 09/29/24 11/23/24 Bradley Mcmullen, BALDOMERO.MOTION STUDY ENGINEER [address] [place] [address] [id number] [facility] 12/18/24 Team Status: Active Member Role/Relationship Status Dates Dr. Isaac Hsu MD Primary Care Provider Acti ve Team Status: Inactive Member Role/Relationship Status Dates Dr. Isaac Hsu MD Primary Care Provider Acti ve Start: February 01, 2025 End: February 01, 2025 Dr. Kain Ivy MD Emergency Provider Active Sta rt: February 01, 2025 End: February 01, 2025 Member Services Coordinator Relationship Specialty Start Date End Date Leny Hsu MD [address] [place], [place] [address] PCP - General Family Medicine 05/11/21 PodlogarLydia APRN.MOTION STUDY ENGINEER [address] [place] [address] [facility] 06/14/24 Bradley Mcmullen APRN.MOTION STUDY ENGINEER [address] [place], [place] [address] Shading [facility]ter Family [facility] 12/18/24 Member Services Coordinator Relationship Specialty Start Date End Date Leny Hsu MD [address] [place], [place] [address] PCP - General Family Medicine 05/11/21 PodlogLydia burt APRN.MOTION STUDY ENGINEER [address] [place], [place] [address] Shading Painter [facility] 06/14/24 Bradley Mcmullen APRN.MOTION STUDY ENGINEER [address] [place] [address] [facility] 12/18/24 Goals (unrecognized section and content) [...] BE BASED ON THE PRIMARY CLINICAL RECORDS. [email or web address] [email or web address]. provides no warranty or guarantee of the accuracy or completeness of information in this document.
[2025-03-05] MEDS: Ketorolac 30 MG/ML Syringe IV (21:05)
[2025-03-05 21:25] LABS: Mucous, Urine 0 SEEN /hpf (<or=2+)
[2025-03-05 21:34] LABS: Color, Urine Yellow (Yellow); Glucose, Dipstick Normal (Normal); Ketone-Dipstick Negative (Negative); Leukocyte Esterase-Dipstick 25 /ul (Negative); Nitrite-Dipstick Negative (Negative); Occult Blood-Urine Negative /ul (Negative); Protein-Dipstick 15 mg/dl (Negative); Specific Gravity, Urine 1.010 (1.002-1.030); Urine Bilirubin Dipstick Negative (Negative)
[2025-03-05 21:35] LABS: Internal QC Validated? YES +Cl - CLEAR BKGD; Pregnancy, Urine Negative Negative
[2025-03-05 21:36] LABS: Record Kit Lot#,Urine Preg 962302
[2025-03-05 21:37] VITALS: BP 139/93; PULSE 74; RESP 20; O2SAT 97
[2025-03-05 21:47] LABS: Red Blood Cells-Urine 0-5 SEEN /hpf (0-5); Squamous Epithelial Cells - UA 0-5 SEEN /hpf (5-10)
[2025-03-05 21:54] LABS: Hematocrit 40.2 % (37-47); Hemoglobin 13.6 g/dL (12.0-15.0); Immature Granulocytes Count 0.040 X10^3/uL (0.0-0.0); Mean Corp Hgb Conc 33.8 g/dL (32-36); Mean Corpuscular Volume 82.7 fL (81-99); Mean Platelet Vol. 9.9 fl (6.2-12.0); NRBC Flagged by Analyzer 0 % (0-5); Platelet Count 489 K/mm3 (150-450); RBC Distribution Width CV 12.5 % (11.6-14.6); RBC Distribution Width SD 37.7 fl (35.1-43.9); Red Blood Count 4.86 M/mm3 (4.2-5.4); White Blood Count 11.3 K/mm3 (4.4-11.0)
[2025-03-05 22:00] LABS: AST(SGOT) 13 U/L (<=31); Alanine Aminotransfer ALT/SGPT 12 U/L (<=34); Albumin, Serum 4.0 g/dL (3.5-5.0); Alkaline Phosphatase 96 U/L (35-104); Anion Gap 11 (5-15); BUN 8 mg/dL (4-19); BUN/Creat Ratio 9.0 RATIO (10-20); Calcium,Total 9.2 mg/dL (7.6-11.0); Carbon Dioxide 24.5 mmol/L (21.0-32.0); Chloride 103 mmol/L (98-108); Estimated Creatinine Clearance 82.83 ml/min (50-250); Globulin 2.6 g/dL (2.2-4.2); Glucose 89 mg/dL (70-99); Lipase 21 U/L (13-75); Potassium 3.8 mmol/L (3.3-5.1)
[2025-03-05] MEDS: Lidocaine 2% Viscous15 ML UDC 15 ML PO (22:16)
[2025-03-05 22:18] VITALS: BP 138/91; PULSE 74; RESP 20; TEMP 36.6; O2SAT 93
== END 2025-03-05 22:32 | disposition home or self-care (01) ==
PROVIDERS: Emergency Provider Emergency Medicine; PCP Family Medicine; Visit Provider Emergency Medicine
DX: R10.13 Epigastric pain (principal); I10 Essential (primary) hypertension; F41.9 Anxiety disorder, unspecified; E03.9 Hypothyroidism, unspecified; F32.A Depression, unspecified; Z79.899 Other long term (current) drug therapy
CPT/HCPCS: 80053; 81001; 81025; 83690; 85025; 96374; 99283; A4216

== ENCOUNTER 2025-06-01 17:00 | Emergency (ER) | payer MEDICARE, MEDICAID, SELFPAY ==
[2025-06-01 17:01] VITALS: BP 83/64; PULSE 81; RESP 18; TEMP 36.4; O2SAT 100; BMI 35.2
[2025-06-01] MEDS: DiphenhydrAMINE 50 MG/ML Syringe 25 MG IV (17:43)
--- NOTE | 2025-06-01 19:43 | EX.ED.UPPERE ---
HPI History of Present Illness Chief Complaint: Upper Extremity Injury Detail of Chief Complaint: Right shoulder pain and migraine headache Informant: patient Occured/Mechanism Comment: Patient believes the shoulder pain is due to injury that occurred 2 years ago Onset/Context/Timing Onset: Today Context: Sudden Onset Quality of Pain: Dull and Aching Location: Headache is by lateral and similar to prior headaches Current Severity: Mild Maximum Severity: Severe Worsened by: Shoulder pain is worse with movement. She does endorse photophobia and cecil Relieved by: Nothing for either Associated Symptoms Associated Symptoms: Negative for Parasthesia, Weakness or Loss of Funtion Narrative Narrative: Patient is a 49-year-old [id number] woman. She presents with shoulder pain that started today. She feels this is due to an injury that occurred 2 years ago. She denies paresthesia, anesthesia buttocks. She denies any recent direct or indirect trauma. She denies cardiac respiratory symptoms. Patient does have history of migraines. She complains of bilateral headache that is throbbing. There is no complaint of fever, chills night sweats. She does endorse photophobia and denies phonophobia. She denies rhinorrhea, congestion, postnasal drainage sore throat. She denies neck pain or neck stiffness. She denies rash. She denies cardiac respiratory symptoms. She does endorse nausea without vomiting. She denies diarrhea. She denies dysuria, frequency, urgency or hematuria. She denies skin lesion or rash. She denies problems with coordination or balance. There is no family history of subarachnoid hemorrhage. She has no history of aneurysm. Prior similar symptoms: Yes Recent Illness/Hospitalization: No PFSH [facility] Medical History [facility] Lab test negative for COVID-19 virus Migraines Abdominal pain Developmental disability Anxiety Fibrocystic change of breast Depression hypercholesterolemia HTN (hypertension) Hypothyroid Home Medications ?Medication ?Instructions ?Recorded ?Last Taken ?Type candesartan 16 mg tablet 16 mg PO DAILY 12/12/15 12/24/19 05:00 History levothyroxine 50 mcg tablet 50 mcg PO DAILY 12/12/15 12/24/19 05:00 History cholecalciferol (vitamin D3) 50 2 tab PO DAILY 01/28/19 Unknown History mcg (2,000 unit) tablet albuterol sulfate 90 mcg/actuation 2 puff inhalation PRN PRN Sob &/Or 12/17/19 12/24/19 05:00 History aerosol inhaler Wheezing escitalopram oxalate 20 mg tablet 20 mg PO DAILY 12/17/19 Unknown History montelukast 10 mg tablet 10 mg PO QHS 12/17/19 Unknown History tamsulosin 0.4 mg capsule 0.4 mg PO DAILY 12/17/19 Unknown History bupropion HCl 300 mg 24 hr tablet, 300 mg PO DAILY 12/23/19 Unknown History extended release topiramate 25 mg tablet 25 mg PO QHS 12/23/19 Unknown History omeprazole 40 mg capsule,delayed 40 mg PO DAILY 02/10/20 Unknown History release prednisone 20 mg tablet 60 mg (3 x 20 mg) PO DAILY #15 tabs 03/01/22 Unknown Rx naproxen 500 mg tablet 500 mg PO BID #14 tabs 08/13/22 Unknown Rx ondansetron 4 mg disintegrating 4 mg PO Q8H PRN PRN Nausea #10 tabs 10/14/22 Unknown Rx tablet naproxen 500 mg tablet (Naprosyn) 500 mg PO BID PRN pain #20 tabs 01/17/24 Unknown Rx cephalexin 500 mg capsule 500 mg PO Q6 #40 CAPSULES 02/01/25 Unknown Rx buspirone 5 mg tablet 5 mg PO BID 03/05/25 Unknown History cyanocobalamin (vitamin B-12) 1,000 mcg PO DAILY 03/05/25 Unknown History 1,000 mcg tablet folic acid 1 mg tablet 1 mg PO DAILY 03/05/25 Unknown History levothyroxine 75 mcg tablet 75 mcg PO DAILY 03/05/25 Unknown History naratriptan 2.5 mg tablet 2.5 mg PO UD 03/05/25 Unknown History sucralfate 100 mg/mL oral ml PO 03/05/25 Unknown History suspension topiramate 25 mg sprinkle capsule 50 mg PO BID 03/05/25 Unknown History venlafaxine 75 mg tablet 75 mg PO Q8H 03/05/25 Unknown History Allergy/AdvReac Type Severity Reaction Status Date / Time amphetamine aspartate (From Allergy Itching Verified 06/01/25 17:01 Adderall) amphetamine sulfate (From Allergy Itching Verified 06/01/25 17:01 Adderall) dextroamphetamine saccharate Allergy Itching Verified 06/01/25 17:01 (From Adderall) dextroamphetamine sulfate Allergy Itching Verified 06/01/25 17:01 (From Adderall) sumatriptan (From Imitrex) Allergy Chest Verified 06/01/25 17:01 tightness sumatriptan succinate (From Allergy Chest Verified 06/01/25 17:01 Imitrex) tightness venom-honey bee Allergy Anaphylaxis Verified 06/01/25 17:01 Family History Father Cancer Surgical History History of tubal ligation Status post fine needle aspiration History of esophagogastroduodenoscopy (EGD) History of dilation and curettage Social History household members: family Smoking Status: Never smoker substance use type: does not use ROS ROS ED Constitutional Constitutional ED: Denies chills, fever(s), subjective or sweats Eyes Eyes: Denies blurry vision, change in vision or diplopia ENT ENT ED: Denies ear pain, rhinorrhea or sore throat Cardiovascular Cardiovascular: Denies chest pain, palpitations or racing heartbeat Respiratory/Chest Respiratory/Chest: Denies cough, dyspnea or dyspnea on exertion Gastrointestinal Gastrointestinal: Denies abdominal pain, nausea or vomiting Genitourinary Genitourinary ED: Denies dysuria, hematuria or urinary frequency Musculoskeletal Musculoskeletal: Denies back pain, myalgias or neck pain Integumentary Denies abscess, Abrasions or rash Neurologic Neurologic: Reports headache(s); Denies paresthesias or weakness Hematologic/Lymphatic Hematologic/Lymphatic: Denies easy bleeding or easy bruising EXAM Physical Exam Const Vital Signs: 06/01/25 17:01 Temperature 97.6 F L Temperature Source Temporal Pulse Rate 81 Respiratory Rate 18 Blood Pressure 83/64 L Blood Pressure Mean 70 Pulse Ox 100 Positive well nourished and well developed Constitutional Narrative: Blood pressure is low. Repeat blood pressure is slightly elevated. Suspect this is an erroneous reading. Patient's BMI is 35.3. General Appearance ED: well developed HEENT Reports moist mucous membranes HEENT Narrative: Ears normal. TMs normal. Nares patent. No frontal, ethmoid or maxillary sinus tenderness. normocephalic and atraumatic Eyes PERRL and EOMs intact bilaterally Eyes Narrative: There is no nystagmus. Patient has no papilledema. Cup-to-disc ratio is normal. Neck full ROM and supple General: Negative for tenderness Chest Wall inspection of chest normal and palpation of chest normal Resp normal respiratory effort and clear to auscultation bilaterally Cardio regular rate, regular rhythm, S1 normal heart sound, S2 normal heart sound and no murmurs Cardio Narrative: Patient has a palpable radial and DP pulse and they are 2+. GI non-tender, non-distended and no masses Extremity normal to inspection and full ROM General Extremety ED: Negative for edema General Extremity: Negative for edema Neuro oriented x3, CN's II-XII intact bilaterally, moves all extremities, no focal motor deficits and no sensory deficits noted Neuro Narrative: There is no dysmetria. There is no clonus Babinski sign noted bilaterally. DTR 2+ bicep, brachialis, tricep, patella and ankle. Motor Exam: strength 5/5 throughout Psych mental status grossly normal Skin General Skin Exam: Negative for petechiae Lesions: no lesions Rashes: no rashes Trauma: no lacerations or abrasions MDM MDM MDM Narrative Medical decision making narrative: Feels patient's shoulder pain is musculoskeletal. This is related to a reported injury 2 years ago. Since no history of trauma by history or exam and there is no neurovasc compromise she has full active range of motion will not image. With history of migraines similar to prior migraines normal neurologic exam normal funduscopic exam in my opinion imaging of the head is not indicated. Blood work is not indicated either. Patient was treated with IV ketorolac, Reglan and diphenhydramine. When she was reassessed at 1947 she was smiling and states her pain has resolved. Therefore we will discharge to home. History & Record Review Additional record(s) reviewed:: Prior outpatient record (Outside records from [facility] were reviewed. This is from August 2023.) and Prior ED visit (Seen February 07 for chronic abdominal pain. January for left kidney pain by me. January 2024 for elbow pain.) Discharge Plan Triage Chief Complaint: Upper Extremity Injury ED Provider: Kain Ivy Dx/Rx/DC Orders Clinical Impression: Migraine headache without aura, Pain in right shoulder, Acute hypotension Instructions: Migraine Tension Headaches, ED Shoulder Pain, Uncertain Cause Prescriptions: No Action montelukast 10 mg tablet 10 mg PO QHS Patient Comments: TAKE 1 TABLET BY MOUTH EVERYDAY AT BEDTIME escitalopram oxalate 20 mg tablet 20 mg PO DAILY Patient Comments: TAKE 1 TABLET BY MOUTH EVERY DAY albuterol sulfate 90 mcg/actuation HFA aerosol inhaler 2 puff INHALATION PRN PRN (Reason: Sob &/Or Wheezing) Patient Comments: INHALE 2 PUFFS BY MOUTH INSTRUCTED EVERY 4 HOURS NEEDED FOR WHEEZING/SHORTNESS OF BREATH. tamsulosin 0.4 mg capsule 0.4 mg PO DAILY Patient Comments: TAKE 1 CAPSULE BY MOUTH EVERYDAY AT BEDTIME omeprazole 40 mg capsule,delayed release(DR/EC) 40 mg PO DAILY Patient Comments: TAKE 1 CAPSULE BY MOUTH EVERY DAY levothyroxine 50 MCG tablet 50 mcg PO DAILY candesartan 16 MG tablet 16 mg PO DAILY cholecalciferol (vitamin D3) 2,000 UNIT tablet 2 tab PO DAILY topiramate 25 mg Tablet 25 mg PO QHS bupropion HCl 300 MG tablet extended release 24 hr 300 mg PO DAILY prednisone 20 mg tablet 60 mg PO DAILY Qty: 15 0RF naproxen 500 mg tablet 500 mg PO BID Qty: 14 0RF ondansetron 4 mg tablet,disintegrating 4 mg PO Q8H PRN PRN (Reason: Nausea) Qty: 10 0RF naproxen [Naprosyn] 500 mg tablet 500 mg PO BID PRN (Reason: pain) Qty: 20 0RF cephalexin 500 mg capsule 500 mg PO Q6 Qty: 40 0RF buspirone 5 mg tablet 5 mg PO BID sucralfate 100 mg/mL suspension PO cyanocobalamin (vitamin B-12) 1,000 mcg tablet 1,000 mcg PO DAILY levothyroxine 75 mcg tablet 75 mcg PO DAILY folic acid 1 mg tablet 1 mg PO DAILY naratriptan 2.5 mg tablet 2.5 mg PO UD venlafaxine 75 mg tablet 75 mg PO Q8H topiramate 25 mg capsule, sprinkle 50 mg PO BID Primary Care Provider: Isaac Hsu Referrals: Isaac Hsu MD [Primary Care Provider, Family Practice] - As Needed Print Language: Turkmen Disposition Disposition: Home, Self Care Discharge Date/Time: 06/01/25 19:50
[2025-06-01 19:48] VITALS: BP 144/86; PULSE 77; RESP 18; TEMP 36.4; O2SAT 95
== END 2025-06-01 19:50 | disposition home or self-care (01) ==
PROVIDERS: Emergency Provider Emergency Medicine; PCP Family Medicine; Visit Provider Emergency Medicine
DX: M25.511 Pain in right shoulder (principal); G43.009 Migraine without aura, not intractable, without status migrainosus; I10 Essential (primary) hypertension; I95.9 Hypotension, unspecified; E78.00 Pure hypercholesterolemia, unspecified
CPT/HCPCS: 96374; 96375; 99284; A4216